=== PATIENT | male | born 1945 | race Caucasian/White ===

== ENCOUNTER 2021-05-29 13:25 | Emergency (ER) | payer MEDICARE, SELFPAY ==
[2021-05-29 14:29] VITALS: BP 117/49; PULSE 58; RESP 14; TEMP 36.6; O2SAT 99
== END 2021-05-30 04:34 | disposition left against medical advice (07) ==
PROVIDERS: PCP Internal Medicine
DX: Z53.21 Procedure and treatment not carried out due to patient leaving prior to being seen by health care provider (principal)
CPT/HCPCS: 99199

== ENCOUNTER 2022-03-21 05:21 | Inpatient (IN) | payer MEDICARE, SELFPAY ==
[2022-03-21] VITALS (13 sets, daily range): BP systolic 121–152; BP diastolic 68–92; PULSE 81–119; RESP 16–22; TEMP 36.5–36.9; O2SAT 95–100; BMI 23.3
--- NOTE | ~2022-03-21 | XR_ITS ---
EXAMINATION: XR chest 2V DATE: 03/21/2022 07:01 INDICATION: Seizure TECHNIQUE: frontal and lateral views of the chest were obtained. COMPARISON: Chest radiograph dated 03/05/2019 FINDINGS: Mild linear atelectasis at the lateral right midlung zone with additional mild streaky bibasilar atel ectasis. Skinfold projects over the left mid to lower lung zone. No pleural effusion or pneumothorax. Cardiomegaly. Median sternotomy wires, ostial markers and mediastinal surgical clips consistent with prior coronary artery bypass grafting. There are bridging osteophytes at multiple levels in the spin e, consistent with diffuse idiopathic skeletal hyperostosis (DISH). Cholecystectomy clips in right up per quadrant. IMPRESSION: 1. Mild streaky opacities at the lateral right midlung zone and bilateral lung bases and favor atelec tasis over pneumonia. 2. Cardiomegaly. Reviewed, dictated and finalized at location A. IMPRESSION: 1. Mild streaky opacities at the lateral right midlung zone and bilateral lung bases and favor atelectasis over pneumonia. 2. Cardiomegaly.
--- NOTE | ~2022-03-21 | MR_ITS ---
EXAMINATION: MR brain/brain stem wo/w con DATE: 03/22/2022 09:54 INDICATION: Onset seizure. Vascular dementia. TECHNIQUE: Magnetic resonance imaging (MRI) of the brain and brainstem was performed without and with 14 mL Multihance intravenous contrast. Sequences included sagittal and axial T1-weighted SE, axial d iffusion-weighted FS SE, axial T2*-weighted GRE, axial 3D SWAN, axial T2-weighted FLAIR, and axial T2 -weighted FSE. Postcontrast axial and coronal T1-weighted SE was obtained. Apparent diffusion coeffic ient (ADC) maps were created. COMPARISON: None. FINDINGS: There are no areas of restricted diffusion to suggest acute infarction. No intracranial hemorrhage or abnormal intracranial mass lesion. There are scattered areas of nonspecific increased T2-weighted si gnal intensity in the cerebral white matter, predominantly involving the deep and periventricular whi te matter. There are numerous small foci of susceptibility artifact scattered throughout the bilatera l cerebral hemispheres and single focus in the right cerebral hemisphere consistent with hemosiderin related to chronic microhemorrhages. There are no intraparenchymal signal abnormalities seen on the o ther pulse sequences. Symmetric prominence of the sulci and subarachnoid spaces overlying the convexi ties consistent with moderate age-appropriate diffuse cerebral volume loss. The ventricles are symme tric and normal in size. There are no abnormal extra-axial fluid collections. Flow voids are seen in the cerebral arteries on the T2-weighted sequences consistent with their expected patency. Visualized orbits and soft tissues are unremarkable. There are no areas of abnormal enhancement on the post con trast images. IMPRESSION: 1. No acute intracranial process. 2. Numerous tiny foci of susceptibility artifact throughout the bilateral cerebellar hemispheres with single focus at the right cerebellar hemisphere consistent with hemosiderin related to chronic micro hemorrhages cyst in the setting of hypertensive microangiopathy or amyloid angiopathy. 3. Age-related changes including moderate diffuse volume loss and moderate scattered mesenteric periv entricular predominant white matter T2 hyperintensity consistent with chronic small vessel ischemic d isease. Reviewed, dictated and finalized at location A. IMPRESSION: 1. No acute intracranial process. 2. Numerous tiny foci of susceptibility artifact throughout the bilateral cereb ellar hemispheres with single focus at the right cerebellar hemisphere consiste nt with hemosiderin related to chronic microhemorrhages cyst in the setting of hypertensive microangiopathy or amyloid angiopathy. 3. Age-related changes including moderate diffuse volume loss and moderate scat tered mesenteric periventricular predominant white matter T2 hyperintensity con sistent with chronic small vessel ischemic disease.
--- NOTE | ~2022-03-21 | CT_ITS ---
EXAMINATION: CT facial & cervical spine wo DATE: 03/21/2022 05:59 INDICATION: Status post fall. Trauma to the face and neck. Seizure. TECHNIQUE: Computed tomography (CT) of the maxillofacial region and cervical spine was performed with out intravenous contrast. The dose-length product was 350.52 mGy-cm. Automated exposure control and i terative reconstruction technique were employed. COMPARISON: None FINDINGS: MAXILLOFACIAL CT: Study limited by motion artifact. Subtle nondisplaced fractures not excluded. Mild mucosal thickening of the paranasal sinuses. Mastoids are pneumatized. Leftward nasal septal deviation. Zygomatic arch is grossly intact. Orbits are symmetric without disconjugate gaze. No acute facial fracture identifie d. CERVICAL SPINE CT: There is moderate cervical spondylosis. Vertebral body heights are maintained. There is degenerative disc disease at C5-6. No evidence for perched facet. Craniovertebral junction within normal limits. N o acute fracture or traumatic malalignment. IMPRESSION: 1. No acute fracture of the maxillofacial bones or cervical spine, although evaluation limited by mot ion. Reviewed, dictated and finalized at location A. IMPRESSION: 1. No acute fracture of the maxillofacial bones or cervical spine, although rhoda luation limited by motion.
--- NOTE | ~2022-03-21 | CT_ITS ---
EXAMINATION: CTA BRAIN/CAROTID DATE: 03/21/2022 07:22 INDICATION: Stroke with seizure TECHNIQUE: Computed tomographic angiography (CTA) of the head and neck was performed with 100 mL Omni paque-350 intravenous contrast. Multiplanar reconstructions and maximum intensity projection 3D-recon structions of the carotid arteries and of the intracranial arteries were created by the technologist on a separate workstation. Automated exposure control and iterative reconstruction technique were emp loyed.The dose-length product was 1138.87 mGy-cm. COMPARISON: Head CT dated 03/21/2022 FINDINGS: Carotid arteries: Small amount of atherosclerotic plaque along the normal caliber visualized portion of the aortic arch with no dissection. There is small amount of atherosclerotic plaque with 0% stenosis of the right ca rotid bulb relative to normal distal artery lumen diameter (NASCET criteria). There is a small amount of atherosclerotic plaque with 0% stenosis of the left carotid bulb relative to normal distal artery lumen diameter. The right vertebral artery is diminutive. Median sternotomy wires and surgical clips along the left internal mamillary artery suggesting prior coronary artery bypass grafting. Mild depe ndent atelectasis in the visualized bilateral upper lobes. Cervical soft tissues are unremarkable. Mo derate cervical spondylosis. There is mild to moderate central canal stenosis at C3-C4 resulting from hypertrophy and ossification of the posterior longitudinal ligament. Multiple bridging osteophytes i n the visualized upper thoracic spine. Intracranial arteries Left vertebral artery is dominant. Atherosclerotic calcifications at the bilateral carotid siphons wi thout hemodynamically significant stenosis. There is no hemodynamically significant stenosis in the v ertebral, basilar and internal carotid arteries. There are no aneurysms identified. Both A1 and P1 s egments are patent. The left P1 segment is small with majority of flow to the left posterior cerebral artery appearing to be supplied via a patent larger caliber left posterior commuting artery. Cerebra l arterial arborization appears symmetric. No abnormally enhancing brain lesions. IMPRESSION: 1. 0% stenosis of the right carotid bulb relative to normal distal artery lumen diameter (NASCET crit eria). 2. 0% stenosis of the left carotid bulb relative to normal distal artery lumen diameter. 3. Atherosclerotic calcification without hemodynamically significant stenosis at the bilateral caroti d siphons. Otherwise unremarkable cerebral CT angiogram. Reviewed, dictated and finalized at location A. IMPRESSION: 1. 0% stenosis of the right carotid bulb relative to normal distal artery lumen diameter (NASCET criteria). 2. 0% stenosis of the left carotid bulb relative to normal distal artery lumen diameter. 3. Atherosclerotic calcification without hemodynamically significant stenosis a t the bilateral carotid siphons. Otherwise unremarkable cerebral CT angiogram.
--- NOTE | ~2022-03-21 | CT_ITS ---
EXAMINATION: CT brain wo con DATE: 03/21/2022 05:58 INDICATION: CVA. Seizure. Fall. TECHNIQUE: Computed tomography (CT) of the head was performed without intravenous contrast. The dose- length product was 681.00 mGy-cm. Automated exposure control and iterative reconstruction technique w ere employed. COMPARISON: None FINDINGS: Mild generalized atrophy. There are scattered mild periventricular and subcortical white ma tter changes, most likely related to small vessel ischemic disease (microangiopathy). No ventriculome dnug or midline shift. No acute intracranial hemorrhage, infarction, mass or mass effect. Basilar cis terns are patent. Mild mucosal thickening of the maxillary sinuses. There is intracranial atheroscler osis. Mastoids are pneumatized. No depressed skull fractures. IMPRESSION: 1. No acute intracranial abnormality. 2: Chronic age-related findings. Reviewed, dictated and finalized at location A.
--- NOTE | 2022-03-21 05:34 | ED.SEIZURE ---
HPI - Seizure General Chief Complaint: Seizure Stated Complaint: SZ, FALL OUT OF BED, SKIN TEARS History of Present Illness HPI Narrative: 76-year-old male presented to the emergency department for evaluation for seizure activity. states that the patient was thrashing in bed and ultimately fell from bed. states that the patient does have a history of night terrors/bad dreams and had similar behavior previously But she states when he fell from bed when he was lying on the ground he had sonorous respirations and was very confused. She states this is not typical behavior for him. Patient did strike his arm on a nearby nightstand and does have a skin tear to his right upper arm. Patient does have history of atrial fibrillation and does take aspirin, he is on no other blood thinners. Patient does have Crohn's and history of cardiac bypass. Related Data Allergies Allergy/AdvReac Type Severity Reaction Status Date / Time No Known Allergies Allergy Unverified 12/09/17 18:58 Review of Systems Review of Systems: CONSTITUTIONAL: Denies fever, chills, or sweats. EYES: Denies visual changes, redness, or discharge. ENT: Denies rhinorrhea, congestion, sore throat, or otalgia. CARDIOVASCULAR: Denies chest pain, palpitations, or edema. RESPIRATORY: Denies cough or dyspnea. GASTROINTESTINAL: Denies abdominal pain, nausea, vomiting, or diarrhea. GENITOURINARY: Denies dysuria or hematuria. SKIN: Skin tear. MUSCULOSKELETAL: Denies back pain, joint pain, or myalgia. NEUROLOGIC: Seizure-like activity Exam Narrative: APPEARANCE: Was postictal upon arrival, or alert and oriented during her stay HEAD: normocephalic, atraumatic. EYES: PERRLA/EOMI, conjunctivae clear. NOSE: Normal no drainage EARS:TMS clear with good light reflex. THROAT: Pharynx clear, no exudate. NECK: Supple. No adenopathy, no masses. RESPIRATORY: Airway patent, respirations nonlabored. Clear to auscultation bilaterally, no rales, rhonchi, wheezing. CARDIOVASCULAR: Atrial fibrillation, rate controlled ABDOMINAL: Soft, nontender, nondistended, normal bowel sounds MUSCULOSKELETAL: Moves all extremities. Strength/ROM intact, No edema, No calf tenderness. NEURO: Alert. Cranial nerves II through XII intact. Grossly intact SKIN: Skin tears to right arm PSYCHIATRIC: Normal affect/mood. Course Course Emergency Course: Patient is more alert than his arrival but patient is still postictal. Family is requesting that the patient be transferred to [facility]. Patient does have his primary care physician his manager fast food his ground water technician and his outreach coordinator at [facility]. Discussed the case with Dr. Kwan, neurology at [facility], and they did not feel the patient needed to be transferred at this time. The recommended against giving any sedating medications and also were comfortable with holding on any antiepileptic medications as well. If patient does not return back to his normal baseline within the next 12 to 24 hours they can be good for further assistance. They felt that due to his history of vascular dementia that a slow return to baseline would be expected. Discussed case with Dr. Curtis and he was consulted. EEG was ordered. And he was made aware that [facility] prefers not to start any antiepileptic medications. Case was discussed with hospitalist and patient was accepted for admission. L he was comfortable with the plan for admission and observation at our facility. --- Skin tears were repaired with Steri-Strips Vital Signs Vital signs: Vital Signs Temperature 98.1 F 03/21/22 05:25 Pulse Rate 108 H 03/21/22 05:25 Respiratory Rate 20 03/21/22 05:25 Blood Pressure 135/84 03/21/22 05:25 Pulse Oximetry 100 03/21/22 05:25 Oxygen Delivery Room Air 03/21/22 05:25 Temperature 98.1 F 03/21/22 05:25 Pulse Rate 116 H 03/21/22 07:50 Respiratory Rate 22 H 03/21/22 07:50 Blood Pressure 150/82 H 03/21/22 07:50 Pulse Oximetry 95 03/21/22 07:50
[2022-03-21 06:13] LABS: Basophils Percent Auto 0.3 % (0.2-1.2); Eosinophils Absolute Auto 0.1 K/mm3 (0-0.3); Eosinophils Percent Auto 1.2 % (0-4.4); Hematocrit 29.6 % (42.0-52.0); Hemoglobin 9.3 g/dL (14.0-18.0); Immature Granulocyte Absolute 0.04 K/mm3 (0.00-0.031); Immature Granulocyte Percent A 0.7 % (0-0.5); Lymphocytes Absolute Auto 0.26 K/mm3 (0.9-3.2); Lymphocytes Percent Auto 4.4 % (18.3-44.2); Mean Corpuscular HGB Conc 31.4 g/dl (32-36); Mean Corpuscular Hemoglobin 30.1 pg (26-34); Mean Corpuscular Volume 95.8 fl (80-100); Mean Platelet Volume 10.2 fl (7.4-10.4); Monocytes Absolute Auto 0.4 K/mm3 (0.1-0.6); Neutrophils Absolute Auto 5.1 K/mm3 (1.3-6.7); Neutrophils Percent Auto 86.4 % (45.5-73.1); Platelet Count Result 156 k/mm3 (150-375); Red Blood Count 3.09 M/mm3 (4.6-6.20); Red Cell Distribution Width 21.6 % (11.5-14.5); White Blood Count 5.9 K/mm3 (4.5-10.0)
[2022-03-21 06:22] LABS: Alanine Aminotransferase 42 U/L (6-50); Alkaline Phosphatase 102 U/L (38-126); Anion Gap 6 mmol/L (8-16); Aspartate Amino Transferase 28 U/L (17-59); Bilirubin,Total 0.5 mg/dL (0.2-1.3); Blood Urea Nitrogen 18 mg/dL (9-20); Calcium 7.5 mg/dL (8.4-10.2); Carbon Dioxide 19 mmol/L (22-30); Chloride 115 mmol/L (98-107); Estimated CRCL calculation 40 ml/min; Estimated Glomerular Filt Rate 46; Glucose 118 mg/dL (65-110); Lactic Acid Reflex 2.9 mmol/L (0.7-2.0); Potassium 3.9 mmol/L (3.4-5.0); Sodium 140 mmol/L (137-145)
[2022-03-21 06:24] LABS: INR 1.4; Partial Thromboplastin Time 31.8 SECONDS (22.3-36.8); Prothrombin Time 16.7 Seconds (11.1-14.7)
--- NOTE | 2022-03-21 06:25 | ECG_ITS ---
Measurements Intervals [place] Rate: 104 P: MT: 0 QRS: 69 QRSD: 89 T: 57 QT: 349 QTc: 461 Interpretive Statements ATRIAL FIBRILLATION WITH RAPID VENTRICULAR RESPONSE WITH ABERRANT CONDUCTION OR VENTRICULAR PREMATURE COMPLEXES ABNORMAL RHYTHM ECG COMPARED TO ECG 03/05/2019 13:42:05 ATRIAL FIBRILLATION NOW PRESENT PVCS NOW PRESENT Electronically Signed On 03-21-2022 17:57:26 CDT by Carmen Burton M.D.
[2022-03-21 06:43] LABS: Amphetamine Screen Urine Negative (Negative); Barbiturate Screen Urine Negative (Negative); Benzodiazepines Screen Urine Negative (Negative); Cannabinoid Screen Urine Negative (Negative); Cocaine Screen Urine Negative (Negative); Methadone Screen Urine Negative (Negative); Opiate Screen Urine Negative (Negative); Phencyclidine Screen Urine Negative (Negative)
[2022-03-21 06:49] LABS: Platelet Estimate Adequate (Adequate)
[2022-03-21 06:50] LABS: Anisocytosis 1+ (NORMAL); Hypochromasia 1+ (NORMAL)
[2022-03-21 06:51] LABS: Appearance Urine Clear (Clear); Bilirubin Urine Negative (Negative); Blood Urine Negative (Negative); Color Urine Yellow (Yellow); Glucose Urine UA Negative (Negative); Ketones Urine Negative (Negative); Leukocyte Esterase Ur Negative LEU/UL (Negative); Nitrate Urine Negative (Negative); Protein Urine Negative (Negative); Urobilinogen Urine 0.2 mg/dL (<2.0); pH Urine 5.5 (5.0-9.0)
[2022-03-21 06:54] LABS: Add Urine Microscopic? NO
[2022-03-21] MEDS: SODIUM CHLORIDE 0.9% IV 1,000 ML 500 ML IV CONT (07:08)
[2022-03-21 08:26] LABS: SARS-CoV-2 RNA PCR Negative
[2022-03-21 08:55] LABS: Creatine Kinase 133 U/L (55-170)
[2022-03-21 09:10] LABS: Reflex Lactic Acid Yes or No Add Lactic
[2022-03-21 10:08] LABS: Lactic Acid 0.9 mmol/L (0.7-2.0)
--- NOTE | 2022-03-21 12:40 | WPDNEURCNPN ---
Assessment and Plan Assessment and plan (1) Fall: Code(s): W19.XXXA - Unspecified fall, initial encounter Status: Acute Assessment and Plan: 76 years old with cardiomegaly on chest x-ray but no acute parenchyma toes disease negative CT scan of the head without any bleed or territory stroke, head neck CTA also negative except atherosclerotic calcification and cervical spine CT scan is also negative fracture dislocation patient admitted for the observation for the new onset seizure he was recently started a new medication for his Crohn's disease but [facility] did not want him to start on the anticonvulsant at this particular time because of his underlying dementia will observe in the hospital Consult date: 03/22/22 Reason for consult: 76 years old right-handed male has been admitted to [facility] through the emergency room for the complaints of seizure and falling out of bed resulting in the skin tear reported to the ER personnel the patient was thrashing in bed and ultimately fell out of the bed ,he does have ongoing history of night terrors, bad dreams ,and has had similar behavior previously, on the floor he was noted to have sonorous respiration increasingly confused he is not known to be allergic to any medication, patient has been taken care at [facility] ,the family was requesting the patient to be transferred to the [facility] but the physician from the Neurology Department declined at this particular time, his vital signs were stable routine lab studies were fairly unremarkable, lactic acid was 2.9, CT of the head was negative for the bleed or space-occupying lesion ,no seizure medication were started as per the [facility] and patient was admitted only for observation, CT scan of the facial bones, cervical spine, were negative and head neck CTA was also negative for any carotid disease except the atherosclerotic calcification without significant stenosis at the bilateral carotid siphon Review of Systems Review of Systems: All systems reviewed & are unremarkable except as noted in HPI and below [facility] Past Medical History Medical History (Updated 03/21/22 @ 13:40 by Bere Kee PA-C) B12 deficiency Benign prostatic hyperplasia Chronic kidney disease, stage 3 Coronary artery disease Crohn's disease Depression Gout Hyperlipidemia Hypertension Iron deficiency anemia Kidney stones Osteoarthritis Peripheral vascular disease Surgical History Surgical History (Updated 03/21/22 @ 13:37 by Bere Kee PA-C) History of cholecystectomy History of coronary artery bypass graft History of lithotripsy History of partial colectomy X2 for to bowel obstructions and fistula secondary to Crohn's disease. History of vascular surgery Bilateral lower extremity stents. Family History Family History (Updated 03/21/22 @ 13:37 by Bere Kee PA-C) Father Myocardial infarct Cerebrovascular accident Mother Breast cancer Sibling Crohn's disease Social History Social History (Updated 03/21/22 @ 13:38 by Bere Kee PA-C) Social History: Surrogate decision maker: Code status: Full code. Smoking packs per day: 2 Smoking cigarettes per day: 40.0 Years smoked: 25 Smoking pack-years: 50.00 Smoking status: Former smoker Smoking end date: 09/22/86 Alcohol intake: never Substance use: never Additional living arrangements comments: The patient lives with his in [place]. Additional occupation/education comments: Retired from [employer]. Spiritual care concerns: No Meds Home Medications and Allergies Home Medications Medication Instructions Recorded Confirmed Type Lactobacillus 1 cap PO DAILY 03/21/22 03/21/22 History acidophilus-Bifidobac.animalis 2.5 billion cell capsule (Daily Probiotic) amlodipine 5 mg tablet 2.5 mg PO BID 03/21/22 03/21/22 History aspirin 81 mg tablet 81 mg PO DAILY 03/21/22 03/21/22 History ator
--- NOTE | 2022-03-21 13:00 | PM.IMHP ---
H&P: HPI History of Present Illness Date/Time: 03/21/22 13:00 Chief Complaint: Seizure. Narrative: This is a pleasant 76-year-old male with vascular dementia, hypertension, peripheral vascular disease, coronary artery disease, paroxysmal atrial fibrillation, peripheral vascular disease, chronic kidney disease, anemia, Crohn's disease, and other comorbidities who presented to the emergency department via EMS for evaluation after seizure. He is not able to provide an accurate history as to what occurred today and thus almost all of the following is obtained via a review of his electronic medical records as well as discussions with his who is at bedside, with the patient's permission. Yesterday he got an outpatient iron infusion and he went to bed in his usual state of health. Early this morning the patient's heard him making grunting noises and when she got out of bed to check on him he was shaking and demonstrating seizure activity. She ran around the side of the bed so he would not fall but did not make it and he ended up falling onto the ground. Seizure activity lasted for nearly 5 minutes and he was postictal once he came to. He has no history of seizures and he is being admitted in this setting for further workup. He has been doing well since admission has not demonstrated any seizure activity. Currently he has no complaints and denies headache, focal weakness, paresthesias, chest pain, muscle pain, nausea, and vomiting. Review of Systems Review of Systems: Twelve systems were reviewed but limited. does provide additional information. No recent fever or recent illness. He has chronic diarrhea related to Crohn's disease is unchanged. He has a history of night terrors and bad dreams but he has been sleeping well recently. He is able to walk unassisted typically but over the last week he has been using a cane at times. He complains of some right groin pain and he had imaging done of his right hip which showed arthritis. Once he is up and walking however he seems to do okay. Except as documented, all other systems were reviewed and are negative. [facility] Past Medical History Medical History (Updated 03/21/22 @ 13:40 by Bere Kee PA-C) B12 deficiency Benign prostatic hyperplasia Chronic kidney disease, stage 3 Coronary artery disease Crohn's disease Depression Gout Hyperlipidemia Hypertension Iron deficiency anemia Kidney stones Osteoarthritis Peripheral vascular disease Surgical History Surgical History (Updated 03/21/22 @ 13:37 by Bere Kee PA-C) History of cholecystectomy History of coronary artery bypass graft History of lithotripsy History of partial colectomy X2 for to bowel obstructions and fistula secondary to Crohn's disease. History of vascular surgery Bilateral lower extremity stents. Family History Family History (Updated 03/21/22 @ 13:37 by Bere Kee PA-C) Father Myocardial infarct Cerebrovascular accident Mother Breast cancer Sibling Crohn's disease Social History Social History (Updated 03/21/22 @ 13:38 by Bere Kee PA-C) Social History: Surrogate decision maker: Code status: Full code. Smoking packs per day: 2 Smoking cigarettes per day: 40.0 Years smoked: 25 Smoking pack-years: 50.00 Smoking status: Former smoker Smoking end date: 09/22/86 Alcohol intake: never Substance use: never Additional living arrangements comments: The patient lives with his in [place]. Additional occupation/education comments: Retired from [employer]. Spiritual care concerns: No Meds Home Medications and Allergies Home Medications Medication Instructions Recorded Confirmed Type Lactobacillus 1 cap PO DAILY 03/21/22 03/21/22 History acidophilus-Bifidobac.animalis 2.5 billion cell capsule (Daily Probiotic) amlodipine 5 mg tablet 2.5 mg PO BID 03/21/22 03/21/22 History aspirin 81 mg tablet 81 mg PO OPAL
[2022-03-21] MEDS: METOPROLOL TARTRATE 25 MG TABLET PO (15:19)
[2022-03-21] MEDS: ACETAMINOPHEN 325 MG TABLET 650 MG PO (15:19)
[2022-03-21 16:05] LABS: Folic Acid 18.3 ng/mL (2.76->20); Iron 164 ug/dL (49-181); Percent Iron Saturation 63 % (20-50)
[2022-03-21] MEDS: amLODIPine BESYLATE 2.5 MG TABLET PO (20:21)
[2022-03-21] MEDS: METOPROLOL TARTRATE 12.5 MG TABLET PO (20:21)
[2022-03-22] VITALS (11 sets, daily range): BP systolic 130–132; BP diastolic 71–86; PULSE 77–114; RESP 17–20; TEMP 36.1–36.8; O2SAT 98–100
[2022-03-22 05:38] LABS: Hematocrit 35.7 % (42.0-52.0); Hemoglobin 11.1 g/dL (14.0-18.0); Mean Corpuscular HGB Conc 31.1 g/dl (32-36); Mean Corpuscular Hemoglobin 29.8 pg (26-34); Mean Corpuscular Volume 95.7 fl (80-100); Mean Platelet Volume 10.3 fl (7.4-10.4); Platelet Count Result 174 k/mm3 (150-375); Red Blood Count 3.73 M/mm3 (4.6-6.20); Red Cell Distribution Width 21.3 % (11.5-14.5)
[2022-03-22 05:49] LABS: Anion Gap 5 mmol/L (8-16); Blood Urea Nitrogen 14 mg/dL (9-20); Calcium 7.8 mg/dL (8.4-10.2); Carbon Dioxide 21 mmol/L (22-30); Chloride 110 mmol/L (98-107); Estimated CRCL calculation 44 ml/min; Estimated Glomerular Filt Rate 54; Glucose 96 mg/dL (65-110); Magnesium 1.9 mg/dL (1.6-2.3); Potassium 3.8 mmol/L (3.4-5.0); Sodium 136 mmol/L (137-145)
[2022-03-22] MEDS: amLODIPine BESYLATE 2.5 MG TABLET PO ×2 (08:47→20:40)
[2022-03-22] MEDS: ACIDOPHILUS/BULGARICUS CHEWABLE TABLET 1 TABLET PO (08:47)
[2022-03-22] MEDS: ATORVASTATIN 10 MG TABLET PO (08:48)
[2022-03-22] MEDS: ASPIRIN 81 MG CHEWABLE TABLET PO (08:48)
[2022-03-22] MEDS: cilostazoL 100 MG TABLET PO (08:49)
[2022-03-22] MEDS: ESCITALOPRAM OXALATE 10 MG TABLET 20 MG PO (08:49)
[2022-03-22] MEDS: METOPROLOL TARTRATE 12.5 MG TABLET PO ×2 (08:50→20:40)
[2022-03-22] MEDS: OMEGA 3 POLYUNSAT FATTY ACIDS 1 GM CAP PO (08:50)
[2022-03-22] MEDS: IRBESARTAN 150 MG TABLET PO (08:50)
[2022-03-22] MEDS: OPTI-GEN TAB 1 TABLET PO (08:51)
[2022-03-22] MEDS: MULTIVITAMINS /C LUTEIN (CENTRUM SILVER) TABLET *BKC 1 TAB PO (08:51)
--- NOTE | 2022-03-22 09:17 | PM.IMPN ---
Progress Note: A&P Assessment and Plan (1) New onset seizure: Code(s): R56.9 - Unspecified convulsions Status: Acute Assessment and Plan: New medication: Zeposia, for his Crohn's disease, no other than that he has not had any recent change in medications. Denies alcohol use Seizure may very well be related to his underlying dementia. Dr. Curtis has been consulted he recommended EEG and brain MRI. Initiate seizure precautions and fall precautions. Defer seizure medications to Neurology (2) Fall from bed: Code(s): W06.XXXA - Fall from bed, initial encounter Status: Acute Assessment and Plan: Patient fell out of bed during his seizure. Imaging showed no acute fractures. PT/OT consulted has reports he has been unsteady (3) Anemia: Code(s): D64.9 - Anemia, unspecified Status: Acute Assessment and Plan: He is followed by a fisher dip net, received an iron infusion yesterday. Follow CBC (4) Chronic kidney disease, stage 3: Code(s): N18.30 - Chronic kidney disease, stage 3 unspecified Status: Acute Assessment and Plan: Creatinine appears higher than what he typically runs though he has not had labs done at this facility for 3 years. He does not appear overtly dry thus I assume this is probably his baseline and we will monitor. Monitor CMP (5) Hypertension: Code(s): I10 - Essential (primary) hypertension Status: Acute Assessment and Plan: Blood pressures were reviewed and they are stable. Continue antihypertensives and monitor. (6) Crohn's disease: Code(s): K50.90 - Crohn's disease, unspecified, without complications Status: Acute Assessment and Plan: No acute issues. Subjective Date/time seen: 03/22/22 09:17 Interval history: Patient is admitted for seizure-like activity. Patient reportedly fell due to seizure-like activity. Patient was brought to the emergency department. Dr. King with neurology was consulted who suggested EEG and brain MRI to be performed. Patient did recently receive iron infusion this week. Patient denies any known history of having seizures. Charts reviewed, does not appear the patient has had seizures in the past. Patient is confused during my encounter this morning. Defer seizure medications to Neurology. Review of Systems Review of Systems: All systems reviewed & are unremarkable except as noted in HPI and below Exam Narrative: General: Chronically ill-appearing male sitting up in bed in no distress. Confused Weight: 71.5 kg. BMI: 23.3. HEENT: Normocephalic. Small abrasion on the posterior occiput and right lower lip. Pupils are reactive. Extraocular motions are intact. Conjunctivae anicteric. Moist mucous membranes. Small abrasion on the right lateral tongue. Neck: Supple. No lymphadenopathy or JVD. Respiratory: Lungs are clear to auscultation bilaterally. Cardiovascular: Regular rate and rhythm with S1-S2. Gastrointestinal: Abdomen is soft, flat, nontender, and nondistended with positive bowel sounds. Skin: Warm and dry. Skin tear on the right upper extremity was dressed in the emergency department and this was not removed for evaluation. Extremities: No cyanosis, clubbing, or edema. Radial and pedal pulses intact. Neurological: Alert and oriented x2. Patient unable to report time of year and where he was located. Cranial nerves 2-12 are grossly intact. Speech is clear. No facial asymmetry. Generalized weakness without focal findings. Psychiatric: Pleasantly confused and cooperative. Objective Data Vital Signs Vital Signs: Vital Signs - 24 hr 03/21/22 09:30 03/21/22 11:22 03/21/22 14:00 Temperature 98.2 F 97.7 F Pulse Rate 100 100 Respiratory Rate 16 18 Blood Pressure 152/82 H 148/73 H Pulse Oximetry 100 98 Oxygen Delivery Room Air 03/21/22 15:19 03/21/22 12:00 03/21/22 16:00 Temperature Pulse Rate 94 116 H 87 R
--- NOTE | 2022-03-22 09:40 | WPDNEUROLOGY ---
Neurology EEG Report General Information Date of Study: 03/21/22 TEST eeg DIAGNOSIS seizure EEG NUMBER [id number] CLINICAL HISTORY patient reports patient had a seizure in the morning about 9 hours ago but there was no history of seizure disorder in the past EEG DESCRIPTION low to medium voltage 5 to 7 hertz per 2nd theta activity seen admixed with 3 to 4 hertz per 2nd delta activity and low-voltage 15 to 18 hertz per 2nd beta activity multiple movement artifacts are noted throughout the tracing. Bilateral symmetrical sleep activity is noted during sleep admixed with excessive amount of delta activity non paroxysmal nonfocal nonlateralizing IMPRESSION abnormal record due to the presence of excessive amount of slow activity during wakefulness drowsiness as well as during sleep. These abnormalities are suggestive of underlying organic a metabolic encephalopathy or postictal state clinical correlation recommended
[2022-03-22] MEDS: LORazepam INJ (*CRX) 2 MG/ML VIAL 0.5 MG IV PUSH (21:36)
--- NOTE | 2022-03-22 21:49 | PC.NURSE ---
2119 Pt is confused and agitated , continuously trying to get out of bed by climbing over bed rail. Place call to Serena Ford NP, new order received.
[2022-03-23] VITALS (8 sets, daily range): BP systolic 125–134; BP diastolic 53–80; PULSE 90–108; RESP 14–18; TEMP 36.2–36.9; O2SAT 97–100
[2022-03-23] MEDS: ACIDOPHILUS/BULGARICUS CHEWABLE TABLET 1 TABLET PO (08:21)
[2022-03-23] MEDS: METOPROLOL TARTRATE 12.5 MG TABLET PO (08:21)
[2022-03-23] MEDS: IRBESARTAN 150 MG TABLET PO (08:21)
[2022-03-23] MEDS: ATORVASTATIN 10 MG TABLET PO (08:21)
[2022-03-23] MEDS: OMEGA 3 POLYUNSAT FATTY ACIDS 1 GM CAP PO (08:21)
[2022-03-23] MEDS: MULTIVITAMINS /C LUTEIN (CENTRUM SILVER) TABLET *BKC 1 TAB PO (08:21)
[2022-03-23] MEDS: cilostazoL 100 MG TABLET PO (08:21)
[2022-03-23] MEDS: ASPIRIN 81 MG CHEWABLE TABLET PO (08:21)
[2022-03-23] MEDS: ESCITALOPRAM OXALATE 10 MG TABLET 20 MG PO (08:21)
[2022-03-23] MEDS: amLODIPine BESYLATE 2.5 MG TABLET PO (08:21)
[2022-03-23] MEDS: OPTI-GEN TAB 1 TABLET PO (08:21)
--- NOTE | 2022-03-23 08:53 | PM.IMPN ---
Progress Note: A&P Assessment and Plan (1) New onset seizure: Code(s): R56.9 - Unspecified convulsions Status: Acute Assessment and Plan: New medication: Zeposia, for his Crohn's disease, no other than that he has not had any recent change in medications. Denies alcohol use Seizure may very well be related to his underlying dementia. Dr. Curtis has been consulted he recommended EEG and brain MRI. EEG revealed abnormality, brain MRI reported numerous tiny foci of susceptibility artifact throughout the bilateral cerebral hemispheres with single focus the right cerebellar hemisphere consistent with hemosiderin related to chronic microhemorrhages cyst in the setting of hypertensive micro angiopathy or amyloid angiopathy. Age-related changes. Initiate seizure precautions and fall precautions. Defer seizure medications to Neurology (2) Fall from bed: Code(s): W06.XXXA - Fall from bed, initial encounter Status: Acute Assessment and Plan: Patient fell out of bed during his seizure. Imaging showed no acute fractures. PT/OT consulted has reports he has been unsteady (3) Anemia: Code(s): D64.9 - Anemia, unspecified Status: Acute Assessment and Plan: He is followed by a logistics solution manager, received an iron infusion yesterday. Follow CBC (4) Chronic kidney disease, stage 3: Code(s): N18.30 - Chronic kidney disease, stage 3 unspecified Status: Acute Assessment and Plan: Creatinine appears higher than what he typically runs though he has not had labs done at this facility for 3 years. He does not appear overtly dry thus I assume this is probably his baseline and we will monitor. Monitor CMP (5) Hypertension: Code(s): I10 - Essential (primary) hypertension Status: Acute Assessment and Plan: Blood pressures were reviewed and they are stable. Continue antihypertensives and monitor. (6) Crohn's disease: Code(s): K50.90 - Crohn's disease, unspecified, without complications Status: Acute Assessment and Plan: No acute issues. Subjective Date/time seen: 03/23/22 08:53 Patient is alert and oriented this morning. He is more alert than he was yesterday. Patient is able to provide history. Patient is aware that he follows with [facility] Neurology. Patient had an MRI and EEG performed with Neurology following here in the hospital. Pending further recommendations by Neurology. Patient will be able to be discharged home. Review of Systems Review of Systems: All systems reviewed & are unremarkable except as noted in HPI and below Exam Narrative: General: Chronically ill-appearing male sitting up in bed in no distress. Alert and oriented Weight: 71.5 kg. BMI: 23.3. HEENT: Normocephalic. Small abrasion on the posterior occiput and right lower lip. Pupils are reactive. Extraocular motions are intact. Conjunctivae anicteric. Moist mucous membranes. Small abrasion on the right lateral tongue. Neck: Supple. No lymphadenopathy or JVD. Respiratory: Lungs are clear to auscultation bilaterally. Cardiovascular: Regular rate and rhythm with S1-S2. Gastrointestinal: Abdomen is soft, flat, nontender, and nondistended with positive bowel sounds. Skin: Warm and dry. Skin tear on the right upper extremity was dressed in the emergency department and this was not removed for evaluation. Extremities: No cyanosis, clubbing, or edema. Radial and pedal pulses intact. Neurological: Alert and oriented x3. Cranial nerves 2-12 are grossly intact. Speech is clear. No facial asymmetry. Generalized weakness without focal findings. Psychiatric: Pleasant and cooperative. Objective Data Vital Signs Vital Signs: Vital Signs - 24 hr 03/22/22 12:00 03/22/22 14:00 03/22/22 16:00 Temperature 98.2 F Pulse Rate 89 92 108 H Respiratory Rate 17 Blood Pressure 131/71 Pulse Oximetry 98 Oxygen Delivery 03/22/22 20:35 03/22
--- NOTE | 2022-03-23 13:37 | WPDNEUROPN ---
Progress Note: A&P Assessment and Plan (1) Seizure disorder: Code(s): G40.909 - Epilepsy, unspecified, not intractable, without status epilepticus Status: Acute Plan patient is stable and at this stage can be discharged destruction to return to the for the follow-up as he has been followed by the neurologist there no additional medication have been advised his underlying problem could be ongoing Ms. with possibility of amyloid angiopathy or simply not amyloid angiopathy id to microhemorrhages Subjective Date/time seen: 03/23/22 13:37 Interval history: Follow-up with the complaints of fall and documented cardiomegaly on x-ray chest, negative CT scan of the head negative CTA except the atherosclerotic calcification and negative cervical spine CT scan without evidence of fracture dislocation or myelopathy question regarding the possibility of the seizure but as per the tech by the ER physician with the [facility] who have been following the patient they were not inclined to start him on the anticonvulsants Review of Systems Review of Systems: All systems reviewed & are unremarkable except as noted in HPI and below Exam Narrative: remains awake alert and cooperative in no obvious acute distress, follows instructions fairly well, his speech did not slow but not dysphasic and not dysarthric, extraocular movements are full no nystagmus cranial examination is normal the general strength is decreased 4/5 with no focal motor deficits. Brain MRI is consistent with tiny foci of susceptibility artifact throughout the bilateral cerebellar hemisphere with single focus at the right cerebellar hemisphere consistent with hemosiderin related to chronic microhemorrhages the setting of the hypertensive microangiopathy or possibility of amyloid angiopathy diffuse volume loss Objective Data Vital Signs Vital Signs: Vital Signs - 24 hr 03/22/22 14:00 03/22/22 16:00 03/22/22 20:35 Temperature 36.8 C 36.1 C L Pulse Rate 92 108 H 77 Respiratory Rate 17 20 Blood Pressure 131/71 132/86 Pulse Oximetry 98 100 Oxygen Delivery 03/22/22 20:40 03/22/22 20:00 03/22/22 20:00 Temperature Pulse Rate 112 H 108 H Respiratory Rate Blood Pressure Pulse Oximetry Oxygen Delivery Room Air 03/23/22 00:00 03/23/22 03:13 03/23/22 04:00 Temperature 36.2 C L Pulse Rate 100 90 97 Respiratory Rate 18 Blood Pressure 126/73 Pulse Oximetry 97 Oxygen Delivery 03/23/22 08:19 03/23/22 08:21 03/23/22 08:25 Temperature Pulse Rate 108 H 100 Respiratory Rate 16 Blood Pressure 134/80 Pulse Oximetry 99 Oxygen Delivery Room Air 03/23/22 10:26 03/23/22 08:00 03/23/22 12:00 Temperature Pulse Rate 106 H 101 H Respiratory Rate Blood Pressure Pulse Oximetry Oxygen Delivery Room Air Intake/Output Intake/Output: Intake & Output 03/20/22 03/21/22 03/22/22 03/23/22 23:59 23:59 23:59 23:59 Intake Total 1610 1740 720 Output Total 150 1200 Balance 1460 540 720 Meds/Results Medications: Active Medications Generic Name Dose Route Start Last Admin Trade Name Freq PRN Reason Stop Dose Admin Acetaminophen 650 mg 03/21/22 15:02 03/21/22 15:19 Acetaminophen 325 Mg Tablet PO 650 mg Q6H PRN Administration Mild Pain (1-3) or Fever Amlodipine Besylate 2.5 mg 03/21/22 21:00 03/23/22 08:21 Amlodipine Besylate 2.5 Mg Tablet PO 2.5 mg Q12HR SUZAN Administration Aspirin 81 mg 03/22/22 09:00 03/23/22 08:21 Aspirin 81 Mg Chewable Tablet PO 04/21/22 08:59 81 mg DAILY SUZAN Administration Atorvastatin Calcium 10 mg 03/22/22 09:00 03/23/22 08:21 Atorvastatin 10 Mg Tablet PO 10 mg DAILY SUZAN Administration Cilostazol 100 mg 03/22/22 09:00 03/23/22 08:21 Cilostazol 100 Mg Tablet PO 100 mg DAILY SUZAN Administration Escitalopram Oxalate 20 mg 03/22/22 09:00 03/23/22 08:21 Escitalopram Oxalate 10 Mg Tablet PO 20 mg
--- NOTE | 2022-03-24 07:10 | PM.DS ---
DS: Admitting Diagnosis Discharge Date 03/23/22 Admitting Diagnosis Unspecified convulsions Fall from bed DS: Discharge Diagnosis Discharge Diagnosis (1) New onset seizure: Code(s): R56.9 - Unspecified convulsions Status: Acute Assessment and Plan: New medication: Zeposia, for his Crohn's disease, no other than that he has not had any recent change in medications. Denies alcohol use Seizure may very well be related to his underlying dementia. Dr. Curtis has been consulted he recommended EEG and brain MRI. EEG revealed abnormality, brain MRI reported numerous tiny foci of susceptibility artifact throughout the bilateral cerebral hemispheres with single focus the right cerebellar hemisphere consistent with hemosiderin related to chronic microhemorrhages cyst in the setting of hypertensive micro angiopathy or amyloid angiopathy. Age-related changes. Initiate seizure precautions and fall precautions. Defer seizure medications to Neurology (2) Fall from bed: Code(s): W06.XXXA - Fall from bed, initial encounter Status: Acute Assessment and Plan: Patient fell out of bed during his seizure. Imaging showed no acute fractures. PT/OT consulted has reports he has been unsteady (3) Anemia: Code(s): D64.9 - Anemia, unspecified Status: Acute Assessment and Plan: He is followed by a surveillance officer, received an iron infusion yesterday. Follow CBC (4) Chronic kidney disease, stage 3: Code(s): N18.30 - Chronic kidney disease, stage 3 unspecified Status: Acute Assessment and Plan: Creatinine appears higher than what he typically runs though he has not had labs done at this facility for 3 years. He does not appear overtly dry thus I assume this is probably his baseline and we will monitor. Monitor CMP (5) Hypertension: Code(s): I10 - Essential (primary) hypertension Status: Acute Assessment and Plan: Blood pressures were reviewed and they are stable. Continue antihypertensives and monitor. (6) Crohn's disease: Code(s): K50.90 - Crohn's disease, unspecified, without complications Status: Acute Assessment and Plan: No acute issues. DS: Summary Hospital Course Reason for hospitalization: possible convulsions Hospital Course: patient is a 76-year-old male with medical history of vascular dementia, hypertension, PVD, CAD, paroxysmal AFib and peripheral vascular disease and Crohn's disease. Patient presented to the emergency department via ambulance after having a seizure at home. He was reportedly and is bed and fell out of bed and had an abrasion to his lip and orbital area. His significant other watch him have unspecified convulsions. She reported that the day prior to admission the patient did receive an iron transfusion on an outpatient basis. Reportedly the seizure activity lasted nearly 5 minutes and the patient was postictal once he came to. He has no history of seizures. While in the emergency department labs and imaging were obtained. Patient had WBC of 5.9, hemoglobin 9.3, hematocrit 29.6 and platelet 156, sodium 140, potassium 3.9, BUN 18 and creatinine 1.5, normal LFTs and a creatinine kinase of 133. Negative UA. Chest x-ray was obtained with mild streaky opacities in the lateral right mid lung zone and lateral lung bases. Head CT was negative for acute intracranial abnormality. Head neck CTA with 0% stenosis on the right and left carotid bulbs. Head cervical spine did not reveal acute fracture. Due to the patient's new onset of seizures neurology was consulted. EEG was and brain MRI was obtained. EEG revealed some abnormalities during his hospitalization. However the patient did not have any witnessed seizure activity in the emergency department or on the floor. Patient follows with [facility] Neurology in which is to continue to follow with them. Patient became alert and oriented on the day
== END 2022-03-23 17:25 | disposition home or self-care (01) | DRG 101 ==
LOC: ANHED 08:00 → ANH2MED 08:32
PROVIDERS: Physician Assistant; Admitting Provider Internal Medicine; Emergency Provider Emergency Medicine; PCP Internal Medicine; Visit Provider Nurse Practitioner Family
DX: R56.9 Unspecified convulsions (principal); K50.90 Crohn's disease, unspecified, without complications; Z20.822 Contact with and (suspected) exposure to COVID-19; S41.111A Laceration without foreign body of right upper arm, initial encounter; W06.XXXA Fall from bed, initial encounter; D64.9 Anemia, unspecified; I12.9 Hypertensive chronic kidney disease with stage 1 through stage 4 chronic kidney disease, or unspecified chronic kidney disease; N18.30 Chronic kidney disease, stage 3 unspecified; F01.50 Vascular dementia, unspecified severity, without behavioral disturbance, psychotic disturbance, mood disturbance, and anxiety; I73.9 Peripheral vascular disease, unspecified; I48.0 Paroxysmal atrial fibrillation; I25.10 Atherosclerotic heart disease of native coronary artery without angina pectoris; N40.0 Benign prostatic hyperplasia without lower urinary tract symptoms; E78.5 Hyperlipidemia, unspecified; D50.9 Iron deficiency anemia, unspecified; M19.90 Unspecified osteoarthritis, unspecified site; Z87.442 Personal history of urinary calculi; Z90.49 Acquired absence of other specified parts of digestive tract; Z95.1 Presence of aortocoronary bypass graft; Z95.820 Peripheral vascular angioplasty status with implants and grafts; Z87.891 Personal history of nicotine dependence
CPT/HCPCS: 36415; 70450; 70486; 70496; 70498; 70553; 71046; 72125; 80048; 80053; 80307; 81003; 82550; 82607; 82728; 82746; 83540; 83550; 83605; 83735; 84443; 85025; 85027; 85610; 85730; 93005; 95816; 96360; 96361; 97161; 97165; 99285; A9270; A9577; C9803; G0378; J2060; J7030; Q9967; U0003; U0005

== ENCOUNTER 2022-05-17 16:50 | Inpatient (IN) | payer MEDICARE, SELFPAY ==
[2022-05-17] VITALS (30 sets, daily range): BP systolic 82–117; BP diastolic 42–70; PULSE 88–124; RESP 13–32; TEMP 37.1–38; O2SAT 81–100
--- NOTE | ~2022-05-17 | CT_ITS ---
EXAMINATION: CT abdomen pelvis w con DATE: 05/17/2022 20:16 INDICATION: Fever and hypotension post recent colonoscopy. TECHNIQUE: Computed tomography (CT) of the abdomen and pelvis was performed with 100 mL Omnipaque-350 intravenous contrast. Automated exposure control and iterative reconstruction technique were employe d. The dose-length product was 505.46 mGy-cm. COMPARISON: 05/14/2018 FINDINGS: Lung bases are clear. Mild cardiomegaly with right atrial enlargement. Atherosclerotic coronary arter y calcifications. Postoperative change of prior median sternotomy and coronary artery bypass grafting . Cholecystectomy clips the gallbladder fossa. Pancreas, spleen, bilateral adrenal glands and kidneys are normal. Prominent distention of the bladder which extends 18 cm cephalad to the level of the L4 vertebral body. There is mildly thickened and enhancing urothelium at the left renal pelvis which cou ld be seen with ascending urinary tract infection. Postoperative change of prior transurethral prosta tectomy. Postoperative changes in the right lower quadrant along the proximal colon where there is a likely ileocolic anastomosis. There is mild wall thickening along the ilium and medial plate proximal to the anastomosis which may related to a reported history of prior Crohn's disease. There is additi onal small segment of wall thickening of the ileum in the left lower quadrant with mild dilation of t he approximately 20 cm intervening segment of ileum. No more proximally dilated small bowel to sugges t obstruction. No pneumatosis, abscess or free intraperitoneal gas or fluid. There is calcified ather osclerosis of the aorta and many of the other arteries. No pathologically enlarged abdominal or pelvi c lymphadenopathy. Mild thoracolumbar dextrocurvature with mild to moderate spondylosis. There are b ridging osteophytes at multiple levels in the spine, consistent with diffuse idiopathic skeletal hype rostosis (DISH). IMPRESSION: 1. Ileocolic anastomosis with wall thickening of short segments of the immediately more proximal ileu m as well as an additional short segment of ileum in the left lower quadrant with mild dilation of th e 20 cm intervening segment of ileum. Findings would be consistent with reported history of Crohn's d isease. Absence of additional more proximal small bowel dilation suggests the dilated segment is rela gin to ileus rather than obstruction. 2. Prominent dilation of the bladder with mild enhancing urothelial thickening at the left renal pelv is suggesting possibility of reflux with ascending urinary tract infection. Correlate with urinalysis . Reviewed, dictated and finalized at location A. IMPRESSION: 1. Ileocolic anastomosis with wall thickening of short segments of the immediat carrie more proximal ileum as well as an additional short segment of ileum in the left lower quadrant with mild dilation of the 20 cm intervening segment of ileu m. Findings would be consistent with reported history of Crohn's disease. Absen ce of additional more proximal small bowel dilation suggests the dilated segmen t is related to ileus rather than obstruction. 2. Prominent dilation of the bladder with mild enhancing urothelial thickening at the left renal pelvis suggesting possibility of reflux with ascending urinar y tract infection. Correlate with urinalysis.
--- NOTE | 2022-05-17 17:40 | ECG_ITS ---
Measurements Intervals [place] Rate: 79 P: 75 [place]: 187 QRS: -3 QRSD: 97 T: 47 QT: 372 QTc: 429 Interpretive Statements SINUS RHYTHM WITH MARKED SINUS ARRHYTHMIA WITH PREMATURE ATRIAL CONTRACTIONS ABNORMAL ECG Electronically Signed On 05-18-2022 10:01:56 CDT by Harley Boswer M.D.
--- NOTE | 2022-05-17 17:56 | ED.FEVER ---
HPI - Fever General Chief Complaint: Fever Stated Complaint: fever, chills after colonoscopy Time Seen by Provider: 05/17/22 17:17 History of Present Illness HPI Narrative: 77-year-old male history of seizure presenting to the emergency department for evaluation of a low-grade fever. Patient was returning from [facility] for a colonoscopy when he had onset of chills. When patient got home he did have a fever of 102. Family called [facility] and they told him to present to the closest emergency department. Patient does have some dementia at baseline but family does feel he is slightly more confused than normal. Related Data Home Medications Medication Instructions Recorded Confirmed Lactobacillus 1 cap PO DAILY 03/21/22 05/18/22 acidophilus-Bifidobac.animalis 2.5 billion cell capsule (Daily Probiotic) amlodipine 5 mg tablet 2.5 mg PO BID 03/21/22 05/18/22 aspirin 81 mg tablet 81 mg PO DAILY 03/21/22 05/18/22 atorvastatin 10 mg tablet 1 tablet PO DAILY 03/21/22 05/18/22 cilostazol 100 mg tablet 1 tablet PO DAILY 03/21/22 05/18/22 coenzyme Q10 10 mg tablet 20 mg PO DAILY 03/21/22 05/18/22 escitalopram oxalate 20 mg tablet 1 tablet PO DAILY 03/21/22 05/18/22 irbesartan 150 mg tablet 150 mg PO DAILY 03/21/22 05/18/22 metoprolol tartrate 25 mg tablet 12.5 mg PO BID 03/21/22 05/18/22 multivit with minerals-iron 18 1 tablet PO DAILY 03/21/22 05/18/22 mg-folic ac 400 mcg-vit K 25 mcg tablet (Adults Multivitamin) omega-3 fatty acids 1 cap PO DAILY 03/21/22 05/18/22 vitamins A,C,Y-[id number]-vskxwp 14,320 1 cap PO DAILY 03/21/22 05/18/22 unit-226 mg-200 unit capsule (PreserVision AREDS) cyanocobalamin (vitamin B-12) 1,000 mcg IM MONTHLY 05/18/22 05/18/22 1,000 mcg/mL injection solution Allergies Allergy/AdvReac Type Severity Reaction Status Date / Time No Known Allergies Allergy Verified 05/17/22 23:15 Review of Systems Review of Systems: CONSTITUTIONAL: Denies fever, chills, or sweats. EYES: Denies visual changes, redness, or discharge. ENT: Denies rhinorrhea, congestion, sore throat, or otalgia. CARDIOVASCULAR: Denies chest pain, palpitations, or edema. RESPIRATORY: Denies cough or dyspnea. GASTROINTESTINAL: Denies abdominal pain, nausea, vomiting, or diarrhea. GENITOURINARY: Denies dysuria or hematuria. SKIN: Denies rash or itching. MUSCULOSKELETAL: Denies back pain, joint pain, or myalgia. NEUROLOGIC: Denies headache, numbness, or weakness. [facility] Past Medical History Medical History (Updated 05/17/22 @ 22:02 by Reuben Loyd MD) B12 deficiency Benign prostatic hyperplasia Chronic kidney disease, stage 3 Coronary artery disease Crohn's disease Depression Gout Hyperlipidemia Hypertension Iron deficiency anemia Kidney stones Osteoarthritis Peripheral vascular disease Seizures Surgical History Surgical History (Updated 03/21/22 @ 13:37 by Bere Kee PA-C) History of cholecystectomy History of coronary artery bypass graft History of lithotripsy History of partial colectomy X2 for to bowel obstructions and fistula secondary to Crohn's disease. History of vascular surgery Bilateral lower extremity stents. Family History Family History (Updated 03/21/22 @ 13:37 by Bere Kee PA-C) Father Myocardial infarct Cerebrovascular accident Mother Breast cancer Sibling Crohn's disease Social History Social History (Updated 03/21/22 @ 13:38 by Bere Kee PA-C) Social History: Surrogate decision maker: Code status: Full code. Smoking packs per day: 2 Smoking cigarettes per day: 40.0 Years smoked: 25 Smoking pack-years: 50.00 Smoking status: Former smoker Tobacco type: cigarettes Second hand tobacco smoke exposure: No Smoking end date: 09/22/86 Alcohol intake: former Drinks per week: 1 Substance use: never Substance use type: does not use Additional living arrangements comments: The patient lives with his in [place]. Addit
[2022-05-17] MEDS: SODIUM CHLORIDE 0.9% IV 1,000 ML 500 ML IV CONT (18:09)
[2022-05-17 18:37] LABS: Hematocrit 25.8 % (42.0-52.0); Hemoglobin 7.8 g/dL (14.0-18.0); Mean Corpuscular HGB Conc 30.2 g/dl (32-36); Mean Corpuscular Hemoglobin 32.4 pg (26-34); Mean Corpuscular Volume 107.1 fl (80-100); Mean Platelet Volume 10.7 fl (7.4-10.4); Platelet Count Result 146 k/mm3 (150-375); Red Blood Count 2.41 M/mm3 (4.6-6.20); Red Cell Distribution Width 14.9 % (11.5-14.5); White Blood Count 7.7 K/mm3 (4.5-10.0)
[2022-05-17 18:46] LABS: Alanine Aminotransferase 34 U/L (6-50); Albumin Level 2.7 g/dL (3.5-5.1); Alkaline Phosphatase 106 U/L (38-126); Anion Gap 8 mmol/L (8-16); Aspartate Amino Transferase 26 U/L (17-59); Bilirubin,Total 0.8 mg/dL (0.2-1.3); Blood Urea Nitrogen 18 mg/dL (9-20); Calcium 7.2 mg/dL (8.4-10.2); Carbon Dioxide 14 mmol/L (22-30); Chloride 110 mmol/L (98-107); Estimated CRCL calculation 32 ml/min; Estimated Glomerular Filt Rate 42; Glucose 89 mg/dL (65-110); Potassium 3.2 mmol/L (3.4-5.0); Sodium 132 mmol/L (137-145)
[2022-05-17 19:10] LABS: Band Neutrophils Percent 11 % (0-6); Lymphocytes Absolute Manual 0.15 K/mm3 (1.1-4.5); Monocytes Absolute Manual 0.15 K/mm3 (0.1-0.90); Monocytes Percent Manual 2 % (3-9); Neutrophils Absolute Manual 7.39 K/mm3 (1.3-6.7); Neutrophils Percent Manual 85 % (46-73); Nucleated Red Blood Cells 1 %; Total Cells Counted 100
[2022-05-17 19:11] LABS: Anisocytosis 2+ (NORMAL); Hypochromasia 1+ (NORMAL)
[2022-05-17 20:40] LABS: SARS-CoV-2 RNA PCR Negative
[2022-05-17] MEDS: POTASSIUM CHLORIDE 20 MEQ PACKET (FOR LIQUID) 40 MEQ PO (20:58)
[2022-05-17] MEDS: SODIUM CHLORIDE 0.9% IV 1,000 ML 999 ML IV CONT (20:59)
--- NOTE | 2022-05-17 21:28 | ECG_ITS ---
Measurements Intervals [place] Rate: 110 P: [place]: 0 QRS: 60 QRSD: 94 T: -12 QT: 329 QTc: 446 Interpretive Statements ATRIAL FIBRILLATION WITH RAPID VENTRICULAR RESPONSE NONSPECIFIC ST & T-WAVE ABNORMALITY ABNORMAL ECG Electronically Signed On 05-18-2022 10:03:33 CDT by Harley Bowser M.D.
[2022-05-17 21:54] LABS: Appearance Urine Clear (Clear); Bilirubin Urine Negative (Negative); Blood Urine Negative (Negative); Color Urine Yellow (Yellow); Glucose Urine UA Negative (Negative); Ketones Urine Negative (Negative); Leukocyte Esterase Ur Trace LEU/UL (Negative); Nitrate Urine Positive (Negative); Protein Urine Negative (Negative); Specific Grav Ur 1.015 (1.001-1.035); Urobilinogen Urine 0.2 mg/dL (<2.0); pH Urine 5.5 (5.0-9.0)
[2022-05-17 22:05] LABS: Amorphous Sediment Urine Few; Bacteria Urine Trace /hpf; Mucus Urine Rare /lpf; Squamous Epithelial Cell Urine Rare /hpf (Few); WBC Urine 0-3 /hpf
[2022-05-17 22:06] LABS: Add Urine Microscopic? YES
--- NOTE | 2022-05-17 22:11 | PM.IMHP ---
H&P: HPI History of Present Illness Date/Time: 05/17/22 22:11 Chief Complaint: Fever Narrative: This is a 77-year-old male with past medical history significant for Crohn's disease, hypertension, hyperlipidemia, osteoarthritis, kidney stones, peripheral vascular disease, seizure disorder, chronic kidney disease, benign prostatic hyperplasia. patient had colonoscopy procedure and on the way home had an episode of rigors and fever in the car was brought to the emergency room for evaluation. patient has been in his usual state of health up until this point in emergency room he was also found to have atrial fibrillation with rapid ventricular response requiring a drip. Patient was also confused and delirious gave most of the history at the time of my visit patient was line mental status and denied any loss of consciousness, syncope, near syncope, chest pain, shortness of breath, cough, sputum production, nausea, vomiting, patient had colon prep the night before. preliminary workup was significant for CT of abdomen and pelvis reported as follows: 1. Ileocolic anastomosis with wall thickening of short segments of the immediately more proximal ileum as well as an additional short segment of ileum in the left lower quadrant with mild dilation of the 20 cm intervening segment of ileum. Findings would be consistent with reported history of Crohn's disease. Absence of additional more proximal small bowel dilation suggests the dilated segment is related to ileus rather than obstruction. 2. Prominent dilation of the bladder with mild enhancing urothelial thickening at the left renal pelvis suggesting possibility of reflux with ascending urinary tract infection. Correlate with urinalysis. in emergency room patient received initial dose of antibiotics and is being admitted for further evaluation ,management and treatment. Review of Systems Review of Systems: After colonoscopy procedure on the way home in the car patient had episode of rigors and fever. Constitutional: Constitutional: Denies body ache(s), Reports chills, Denies fatigue, Reports fever(s), Reports malaise, Denies night sweats and Denies poor appetite Eyes: Eyes: Denies change in vision ENT: Denies dysphagia, Denies vertigo, Denies dizziness and Denies odynophagia Cardiovascular: Cardiovascular: Denies chest pain, Denies syncope, Denies irregular heart rhythm, Reports lightheadedness, Denies palpitations and Denies dyspnea on exertion Respiratory: Respiratory: Denies chest congestion, Denies excessive phlegm production, Denies pain on inspiration, Denies dyspnea and Denies dyspnea on exertion Gastrointestinal: Gastrointestinal: Denies abdominal pain, Denies dyspepsia, Denies heartburn, Denies nausea and Denies vomiting Genitourinary: Genitourinary: Denies dysuria Musculoskeletal: Musculoskeletal: Denies myalgias, Denies arthralgias and Denies joint swelling Integumentary/Breasts: Skin/Breast: Denies rash Neurologic: Denies vertigo, Denies dizziness, Denies focal weakness and Denies Sensory deficit (Neuro) Psychiatric: Psychiatric: Reports no additional psychiatric complaints and Reports as per HPI Endocrine: Endocrine: Denies cold intolerance, Denies flushing, Denies heat intolerance, Denies polyphagia, Denies polydipsia and Denies palpitations Hematologic/Lymphatic: Hematologic/Lymphatic: Reports no additional hematologic/lymphatic complaints and Reports as per HPI Allergic/Immunologic: Allergic/Immunologic: Reports no additional allergic/immunologic complaints and Reports as per HPI PMFSH Past Medical History Medical History (Updated 05/17/22 @ 22:02 by Reuben Loyd MD) B12 deficiency Benign prostatic hyperplasia Chronic kidney disease, stage 3 Coronary artery disease Crohn's disease Depression Gout Hyperlipidemia Hypertension Iron deficiency anemia Kidney stones Osteoarthritis Peripheral vascular disease Seizures Surgical History Surgical History (Updated
--- NOTE | 2022-05-17 23:04 | PC.NURSE ---
Pt care transferred to [facility]
[2022-05-18] VITALS (19 sets, daily range): BP systolic 97–135; BP diastolic 45–71; PULSE 52–122; RESP 12–24; TEMP 36.4–38.1; O2SAT 94–100; BMI 21.1
[2022-05-18] MEDS: dilTIAZem HCl INJ 25 MG/5 ML VIAL 10 MG IV PUSH (00:11)
[2022-05-18] MEDS: dilTIAZem 100 MG/100 ML 100 MG/100 ML BAG IV CONT (00:16)
--- NOTE | 2022-05-18 00:33 | ADMGEN ---
This patient, Vitaly Oreilly, was admitted to IMU Room 206-01 at 0030. Patient/family oriented to hospital policies and general routines including ID bracelet, bed and alarms, visiting hours, pain management, procedures, bathroom and other care routines, personal items, smoking policy, room service/diet, and visiting hours. Information on how to activate the Rapid Response Team has been discussed. Patient/Family are encouraged to report perceived risks to care and to ask questions if they do not understand what they are told or what they should do.
[2022-05-18] MEDS: OMEGA 3 POLYUNSAT FATTY ACIDS 1 GM CAP PO (10:32)
[2022-05-18] MEDS: OPTI-GEN TAB 1 TABLET PO (10:32)
[2022-05-18] MEDS: POTASSIUM CHLORIDE 20 MEQ TABLET PO (10:32)
[2022-05-18] MEDS: METOPROLOL TARTRATE 12.5 MG TABLET PO ×2 (10:32→20:49)
[2022-05-18] MEDS: MULTIVITAMINS /C LUTEIN (CENTRUM SILVER) TABLET *BKC 1 TAB PO (10:32)
[2022-05-18] MEDS: ENOXAPARIN 80 MG/0.8 ML SYRINGE 70 MG SUB-Q (10:33)
[2022-05-18] MEDS: ATORVASTATIN 10 MG TABLET PO (10:33)
[2022-05-18] MEDS: ESCITALOPRAM OXALATE 10 MG TABLET 20 MG PO (10:33)
[2022-05-18] MEDS: ACIDOPHILUS/BULGARICUS CHEWABLE TABLET 2 TABLET BY MOUTH (10:33)
[2022-05-18] MEDS: ASPIRIN 81 MG ENTERIC TABLET PO (10:33)
--- NOTE | 2022-05-18 12:51 | PM.IMPN ---
Progress Note: A&P Assessment and Plan (1) Atrial fibrillation with rapid ventricular response: Code(s): I48.91 - Unspecified atrial fibrillation Status: Acute Assessment and Plan: Heart rates now controlled with low-dose Cardizem drip. Will titrate off (2) Acute UTI: Code(s): N39.0 - Urinary tract infection, site not specified Status: Acute Assessment and Plan: IV antibiotic (3) Fever: Code(s): R50.9 - Fever, unspecified Status: Acute Assessment and Plan: Secondary to UTI. Continue IV antibiotics (4) Chronic kidney disease, stage 3: Code(s): N18.30 - Chronic kidney disease, stage 3 unspecified Status: Acute Assessment and Plan: Monitor (5) Crohn's disease: Code(s): K50.90 - Crohn's disease, unspecified, without complications Status: Acute Assessment and Plan: Chronic Subjective Date/time seen: 05/18/22 12:51 No complaints, patient's heart rate is in the 50s and 60s. Exam Narrative: General: alert and oriented Psych: appropriate mood nad affect Eyes: PERRLA Neck: Trachea midline, no new lesions Skin: no changes Lungs: CTA Cardiac: Normal S1,S2, no MGR ABD: soft, nd, nt, nbs Ext: no new lesions, no cce Vasc: Pulses intact Objective Data Vital Signs Vital Signs: Vital Signs - 24 hr 05/17/22 16:57 05/17/22 17:26 05/17/22 17:26 Temperature 99.9 F H Pulse Rate 115 H 112 H Respiratory Rate 20 15 Blood Pressure 82/42 L 91/51 L Pulse Oximetry 97 99 99 Oxygen Delivery Room Air 05/17/22 19:06 05/17/22 17:26 05/17/22 17:27 Temperature 98.7 F Pulse Rate 102 H 116 H Respiratory Rate 19 29 H Blood Pressure 91/51 L Pulse Oximetry 99 97 Oxygen Delivery 05/17/22 17:35 05/17/22 17:45 05/17/22 17:46 Temperature Pulse Rate 105 H 97 96 Respiratory Rate 25 H 25 H 27 H Blood Pressure 88/53 L Pulse Oximetry 99 100 Oxygen Delivery 05/17/22 18:06 05/17/22 18:19 05/17/22 18:39 Temperature Pulse Rate 96 98 96 Respiratory Rate 24 H 26 H 21 H Blood Pressure Pulse Oximetry 99 96 Oxygen Delivery 05/17/22 18:45 05/17/22 18:46 05/17/22 19:14 Temperature Pulse Rate 88 98 97 Respiratory Rate 25 H 26 H 21 H Blood Pressure 89/46 L Pulse Oximetry 98 Oxygen Delivery 05/17/22 19:25 05/17/22 19:30 05/17/22 19:36 Temperature Pulse Rate 97 91 91 Respiratory Rate 13 20 26 H Blood Pressure 89/51 L Pulse Oximetry 81 L Oxygen Delivery 05/17/22 19:56 05/17/22 20:00 05/17/22 20:34 Temperature Pulse Rate 104 H 93 90 Respiratory Rate 24 H 27 H 25 H Blood Pressure 93/47 L Pulse Oximetry 100 100 Oxygen Delivery 05/17/22 20:45 05/17/22 21:03 05/17/22 21:16 Temperature Pulse Rate 91 110 H 101 H Respiratory Rate 23 H 15 24 H Blood Pressure Pulse Oximetry Oxygen Delivery 05/17/22 21:30 05/17/22 21:45 05/17/22 22:00 Temperature Pulse Rate 117 H 111 H 115 H Respiratory Rate 20 15 23 H Blood Pressure 117/70 Pulse Oximetry Oxygen Delivery 05/17/22 22:03 05/17/22 22:15 05/17/22 22:46 Temperature Pulse Rate 124 H 103 H 120 H Respiratory Rate 22 H 32 H 25 H Blood Pressure Pulse Oximetry Oxygen Delivery 05/17/22 23:01 05/17/22 23:56 05/18/22 00:00 Temperature 100.4 F H Pulse Rate 113 H 124 H 122 H Respiratory Rate 21 H 23 H 22 H Blood Pressure 114/57 L Pulse Oximetry 94 Oxygen Delivery 05/18/22 00:01 05/18/22 00:16 05/18/22 00:21 Temperature Pulse Rate 121 H 120 H 102 H Respiratory Rate 19 24 H Blood Pressure 99/55 L 107/52 L Pulse Oximetry 100 100 Oxygen Delivery 05/18/22 00:50 05/18/22 04:00 05/18/22 02:00 Temperature 100.6 F H 99.6 F Pulse Rate 101 H 111 H 91 Respiratory Rate 16 20 Blood Pressure 104/53 L 100/45 L Pulse Oximetry 100 97 Oxygen Delivery 05/18/22 04:00 05/18/22 06:00 05/18/22 08:00 Temperature 99.3 F Pulse Rate
[2022-05-19] VITALS (9 sets, daily range): BP systolic 93–118; BP diastolic 54–85; PULSE 65–97; RESP 12–17; TEMP 36.3–36.9; O2SAT 100
[2022-05-19 06:49] LABS: Anion Gap 6 mmol/L (8-16); Blood Urea Nitrogen 15 mg/dL (9-20); Calcium 6.9 mg/dL (8.4-10.2); Carbon Dioxide 15 mmol/L (22-30); Chloride 112 mmol/L (98-107); Estimated CRCL calculation 36 ml/min; Estimated Glomerular Filt Rate 49; Glucose 88 mg/dL (65-110); Potassium 3.4 mmol/L (3.4-5.0); Sodium 133 mmol/L (137-145)
[2022-05-19] MEDS: OMEGA 3 POLYUNSAT FATTY ACIDS 1 GM CAP PO (08:46)
[2022-05-19] MEDS: MULTIVITAMINS /C LUTEIN (CENTRUM SILVER) TABLET *BKC 1 TAB PO (08:46)
[2022-05-19] MEDS: ESCITALOPRAM OXALATE 10 MG TABLET 20 MG PO (08:46)
[2022-05-19] MEDS: ASPIRIN 81 MG ENTERIC TABLET PO (08:46)
[2022-05-19] MEDS: ENOXAPARIN 80 MG/0.8 ML SYRINGE 70 MG SUB-Q (08:46)
[2022-05-19] MEDS: OPTI-GEN TAB 1 TABLET PO (08:46)
[2022-05-19] MEDS: ACIDOPHILUS/BULGARICUS CHEWABLE TABLET 2 TABLET BY MOUTH (08:47)
[2022-05-19] MEDS: ATORVASTATIN 10 MG TABLET PO (08:47)
[2022-05-19] MEDS: METOPROLOL TARTRATE 12.5 MG TABLET PO (08:47)
[2022-05-19 09:11] LABS: Hematocrit 24.8 % (42.0-52.0); Hemoglobin 7.6 g/dL (14.0-18.0); Mean Corpuscular HGB Conc 30.6 g/dl (32-36); Mean Corpuscular Hemoglobin 32.6 pg (26-34); Mean Corpuscular Volume 106.4 fl (80-100); Mean Platelet Volume 10.7 fl (7.4-10.4); Platelet Count Result 101 k/mm3 (150-375); Red Blood Count 2.33 M/mm3 (4.6-6.20); Red Cell Distribution Width 14.6 % (11.5-14.5); White Blood Count 4.5 K/mm3 (4.5-10.0)
--- NOTE | 2022-05-19 10:14 | PM.DS ---
DS: Admitting Diagnosis Discharge Date May 19, 2022 Admitting Diagnosis UTI DS: Discharge Diagnosis Discharge Diagnosis (1) Atrial fibrillation with rapid ventricular response: Code(s): I48.91 - Unspecified atrial fibrillation Status: Acute Assessment and Plan: History of paroxysmal atrial fibrillation. Rates are now between 70s and 90s. Asymptomatic. No anticoagulation as this has been discussed in the past according to the . No anticoagulation secondary to Crohn's disease and GI bleeding. (2) Acute UTI: Code(s): N39.0 - Urinary tract infection, site not specified Status: Acute Assessment and Plan: Improved after being on Rocephin in the hospital. Will discharge on p.o. Omnicef. Blood cultures negative today (3) Fever: Code(s): R50.9 - Fever, unspecified Status: Acute Assessment and Plan: according to CT of abdomen noted patient has history of Crohn's disease. No complication from his colonoscopy was identified on CT scan. Abdominal exam is benign. (4) Chronic kidney disease, stage 3: Code(s): N18.30 - Chronic kidney disease, stage 3 unspecified Status: Acute Assessment and Plan: BUN and creatinine at patient's baseline continue to monitor (5) Crohn's disease: Code(s): K50.90 - Crohn's disease, unspecified, without complications Status: Acute Assessment and Plan: active Crohn's disease follow-up in the outpatient setting DS: Summary Hospital Course Hospital Course: Patient is 77-year-old male who came in with abdominal cramping and found have a UTI. His abdominal cramping did occur after colonoscopy which was uneventful. CT scan of the abdomen was negative for perforation or any complication from the colonoscopy. UTI was noted on UA. Patient was started on IV Rocephin and improved significantly. Patient sitting up in bed unable to communicate family says he is back to his baseline. He does have issues with oral antibiotics causing upset stomach with his Crohn's disease. We are going to try dose oral antibiotics and any can be discharged home on oral Omnicef. To note patient did have paroxysmal atrial fibrillation with RVR rates are now controlled between 70 and 90. No anticoagulation secondary to GI issues. This has been discussed in the past. Time Spent with Patient Time attestation: Total time spent providing and/or coordinating discharge services: Exam Narrative: General: alert and oriented Psych: appropriate mood nad affect Eyes: PERRLA Neck: Trachea midline, no new lesions Skin: no changes Lungs: CTA Cardiac: Normal S1,S2, no MGR ABD: soft, nd, nt, nbs Ext: no new lesions, no cce Vasc: Pulses intact DS: Data Data Completed and Pending Labs on day of discharge: Labs from last 24 hours 05/19/22 05/19/22 05:56 05:54 WBC 4.5 RBC 2.33 L Hgb 7.6 L Hct 24.8 L MCV 106.4 H MCH 32.6 MCHC 30.6 L RDW 14.6 H Plt Count 101 L MPV 10.7 H Sodium 133 L Potassium 3.4 Chloride 112 H Carbon Dioxide 15 L Anion Gap 6 L BUN 15 Creatinine 1.40 H Estim Creat Clear Calc 36 Estimated GFR 49 L Glucose 88 Calcium 6.9 L Preliminary micro results at discharge 05/17/22 22:48 Blood Culture - Preliminary Blood 05/17/22 22:48 Blood Culture - Preliminary Blood Discharge Plan Discharge Attending physician on discharge: Jeffery Mueller Discharging Clinician: Jeffery Mueller Patient Disposition: Home, Self-Care Activity: no preference Diet: as tolerated Patient Instructions: Antibiotic Form, A-fib (Atrial Fibrillation) (DC), Urinary Tract Infection in Men (DC) Stand Alone Forms: General Discharge Information Follow-up/Referrals: Kaylan,John Clemons MD [Primary Care Provider] - Discharge Medications: New cefdinir 300 mg capsule 300 mg PO Q12H Qty: 10 0RF Continued atorvastatin 10 mg tablet 1 t
[2022-05-19] MEDS: CEFDINIR 300 MG CAPSULE PO (11:44)
== END 2022-05-19 15:43 | disposition home or self-care (01) | DRG 690 ==
LOC: ANHED 22:02 → ANHIMU 23:44
PROVIDERS: Admitting Provider Internal Medicine; Emergency Provider Emergency Medicine; PCP Internal Medicine; Visit Provider Chiropractor
DX: N39.0 Urinary tract infection, site not specified (principal); K50.90 Crohn's disease, unspecified, without complications; I48.0 Paroxysmal atrial fibrillation; N18.30 Chronic kidney disease, stage 3 unspecified; I12.9 Hypertensive chronic kidney disease with stage 1 through stage 4 chronic kidney disease, or unspecified chronic kidney disease; N18.9 Chronic kidney disease, unspecified; Z20.822 Contact with and (suspected) exposure to COVID-19; N40.0 Benign prostatic hyperplasia without lower urinary tract symptoms; I25.10 Atherosclerotic heart disease of native coronary artery without angina pectoris; D50.9 Iron deficiency anemia, unspecified; M19.90 Unspecified osteoarthritis, unspecified site; I73.9 Peripheral vascular disease, unspecified; E78.5 Hyperlipidemia, unspecified; E53.8 Deficiency of other specified B group vitamins; M10.9 Gout, unspecified; Z87.442 Personal history of urinary calculi; Z90.49 Acquired absence of other specified parts of digestive tract; Z95.1 Presence of aortocoronary bypass graft; Z87.891 Personal history of nicotine dependence; G40.909 Epilepsy, unspecified, not intractable, without status epilepticus
CPT/HCPCS: 36415; 74177; 80048; 80053; 81001; 85025; 85027; 87040; 93005; 96361; 96365; 96366; 96367; 96372; 99285; A9270; C9803; G0378; J0696; J1650; J2543; J3370; J7030; Q9967; U0003; U0005

== ENCOUNTER 2022-08-07 09:47 | Inpatient (IN) | payer MEDICARE, SELFPAY ==
[2022-08-07] VITALS (16 sets, daily range): BP systolic 92–131; BP diastolic 57–85; PULSE 74–139; RESP 18–21; TEMP 37.2–37.6; O2SAT 97–100
--- NOTE | ~2022-08-07 | XR_ITS ---
XR chest 1V portable 08/12/2022 09:13 Indication: Leukocytosis. Procedure: AP portable chest Comparison: Comparison to multiple prior studies sequentially, with oldest reviewed study dated 11/18. Findings: Status post median sternotomy for CABG. Cardiomegaly. There are subtle interstitial infiltr ates of the lung bases. No significant effusion or pneumothorax. No acute osseous abnormality. Impression: 1: Subtle bibasilar infiltrates which may represent edema or pneumonia. Reviewed, dictated and finalized at location B. IDE MACHINIST APPRENTICE Impression: 1: Subtle bibasilar infiltrates which may represent edema or pneumonia.
--- NOTE | ~2022-08-07 | XR_ITS ---
EXAMINATION: XR chest 2V 08/07/2022 11:27 INDICATION: Weakness. PROCEDURE: AP and lateral views of the chest COMPARISON: Comparison to multiple prior studies sequentially, with oldest reviewed study dated 05/09. FINDINGS: The lungs are clear. The cardiomediastinal silhouette is within normal limits. There are no pleural effusions. There is no pneumothorax suspected. There are median sternotomy wires for bryant or CABG. There are cholecystectomy clips. IMPRESSION: 1: NO ACUTE CARDIOPULMONARY DISEASE. Reviewed, dictated and finalized at location A. URCE MANAGER FORESTER
--- NOTE | 2022-08-07 09:48 | ECG_ITS ---
Measurements Intervals [place] Rate: 134 P: MT: 0 QRS: 75 QRSD: 93 T: -86 QT: 279 QTc: 417 Interpretive Statements ATRIAL FIBRILLATION WITH RAPID VENTRICULAR RESPONSE ST-T WAVE ABNORMALITY IN ANTEROLAT/INF LEADS- CONSIDER ISCHEMIA BASELINE ARTIFACT- I, II, III, AVR, AVL ,AVF, V1, V3, V5-V6 ABNORMAL ECG COMPARED TO ECG 05/17/2022 21:56:48 NO SIGNIFICANT CHANGES Electronically Signed On 08-07-2022 12:11:21 CLAIMS EXAMINER by Yared Martinez D.O.
--- NOTE | 2022-08-07 09:54 | ED.WEAKNESS ---
HPI - Weakness General Chief complaint: Weakness Stated complaint: weakness & fever Time Seen by Provider: 08/07/22 09:53 Source: patient, family and EMS Limitations: no limitations History of Present Illness HPI Narrative: 77 years old white male came to the emergency room with his who is telling me that he been weak, productive cough, decreased oral intake, for the last 4 days. History of atrial fibrillation not on any anticoagulant medication because of history of Crohn's disease. She also telling me that patient been running fever up to 1 or 2.7 lately. She denies any sick contact. History of hypertension, hyperlipidemia, CABG, DNR, he does not smoke or drink, currently on aspirin. He denies any abdominal pain or urinary symptoms. Related Data Home Medications Medication Instructions Recorded Confirmed Lactobacillus 1 cap PO DAILY 03/21/22 05/18/22 acidophilus-Bifidobac.animalis 2.5 billion cell capsule (Daily Probiotic) amlodipine 5 mg tablet 2.5 mg PO BID 03/21/22 05/18/22 aspirin 81 mg tablet 81 mg PO DAILY 03/21/22 05/18/22 atorvastatin 10 mg tablet 1 tablet PO DAILY 03/21/22 05/18/22 cilostazol 100 mg tablet 1 tablet PO DAILY 03/21/22 05/18/22 coenzyme Q10 10 mg tablet 20 mg PO DAILY 03/21/22 05/18/22 escitalopram oxalate 20 mg tablet 1 tablet PO DAILY 03/21/22 05/18/22 irbesartan 150 mg tablet 150 mg PO DAILY 03/21/22 05/18/22 metoprolol tartrate 25 mg tablet 12.5 mg PO BID 03/21/22 05/18/22 multivit with minerals-iron 18 1 tablet PO DAILY 03/21/22 05/18/22 mg-folic ac 400 mcg-vit K 25 mcg tablet (Adults Multivitamin) omega-3 fatty acids 1 cap PO DAILY 03/21/22 05/18/22 vitamins A,C,U-qxid-momfui 14,320 1 cap PO DAILY 03/21/22 05/18/22 unit-226 mg-200 unit capsule (PreserVision AREDS) cyanocobalamin (vitamin B-12) 1,000 mcg IM MONTHLY 05/18/22 05/18/22 1,000 mcg/mL injection solution Allergies Allergy/AdvReac Type Severity Reaction Status Date / Time No Known Allergies Allergy Verified 05/17/22 23:15 Review of Systems Review of Systems: All systems reviewed & are unremarkable except as noted in HPI and below PMFSH Past Medical History Medical History B12 deficiency Benign prostatic hyperplasia Chronic kidney disease, stage 3 Coronary artery disease Crohn's disease Depression Gout Hyperlipidemia Hypertension Iron deficiency anemia Kidney stones Osteoarthritis Peripheral vascular disease Seizures Surgical History Surgical History History of cholecystectomy History of coronary artery bypass graft History of lithotripsy History of partial colectomy X2 for to bowel obstructions and fistula secondary to Crohn's disease. History of vascular surgery Bilateral lower extremity stents. Family History Family History Father Myocardial infarct Cerebrovascular accident Mother Breast cancer Sibling Crohn's disease Social History Social History Social History: Surrogate decision maker: Code status: Full code. Smoking packs per day: 2 Smoking cigarettes per day: 40.0 Years smoked: 25 Smoking pack-years: 50.00 Smoking status: Former smoker Tobacco type: cigarettes Second hand tobacco smoke exposure: No Smoking end date: 09/22/86 Alcohol intake: former Drinks per week: 1 Substance use: never Substance use type: does not use Additional living arrangements comments: The patient lives with his in [place]. Additional occupation/education comments: Retired from [employer]. Spiritual care concerns: No Exam Narrative: General appearance: Well-developed, well-nourished Skin: Normal color Head: Normocephalic, nontraumatic Eyes: Clear conjunctiva ENT: Oropharynx normal, ears normal, nose normal Neck: Supple, nont
[2022-08-07] MEDS: dilTIAZem HCl INJ 25 MG/5 ML VIAL 10 MG IV PUSH (10:12)
[2022-08-07] MEDS: dilTIAZem 100 MG/100 ML 100 MG/100 ML BAG IV CONT (10:12)
[2022-08-07 10:16] LABS: Basophils Absolute Auto 0.1 K/mm3 (0.0-0.1); Eosinophils Absolute Auto 0.1 K/mm3 (0-0.3); Hematocrit 29.7 % (42.0-52.0); Hemoglobin 9.6 g/dL (14.0-18.0); Immature Granulocyte Absolute 0.04 K/mm3 (0.00-0.031); Immature Granulocyte Percent A 0.6 % (0-0.5); Lymphocytes Absolute Auto 0.67 K/mm3 (0.9-3.2); Lymphocytes Percent Auto 9.5 % (18.3-44.2); Mean Corpuscular HGB Conc 32.3 g/dl (32-36); Mean Corpuscular Volume 102.1 fl (80-100); Mean Platelet Volume 10.2 fl (7.4-10.4); Monocytes Absolute Auto 0.6 K/mm3 (0.1-0.6); Monocytes Percent Auto 8.6 % (2.6-8.5); Neutrophils Absolute Auto 5.6 K/mm3 (1.3-6.7); Neutrophils Percent Auto 78.3 % (45.5-73.1); Platelet Count Result 147 k/mm3 (150-375); Red Blood Count 2.91 M/mm3 (4.6-6.20); Red Cell Distribution Width 15.2 % (11.5-14.5); White Blood Count 7.1 K/mm3 (4.5-10.0)
[2022-08-07 10:26] LABS: Lactic Acid Reflex 1.4 mmol/L (0.7-2.0)
[2022-08-07 10:28] LABS: Alanine Aminotransferase 39 U/L (6-50); Albumin Level 3.3 g/dL (3.5-5.1); Alkaline Phosphatase 108 U/L (38-126); Anion Gap 9 mmol/L (8-16); Aspartate Amino Transferase 30 U/L (17-59); Bilirubin,Total 1.1 mg/dL (0.2-1.3); Blood Urea Nitrogen 20 mg/dL (9-20); Calcium 7.3 mg/dL (8.4-10.2); Carbon Dioxide 15 mmol/L (22-30); Chloride 113 mmol/L (98-107); Estimated CRCL calculation 29 ml/min; Estimated Glomerular Filt Rate 39; Glucose 98 mg/dL (65-110); Potassium 3.7 mmol/L (3.4-5.0); Sodium 137 mmol/L (137-145)
[2022-08-07 11:26] LABS: Appearance Urine Slightly Cloudy (Clear); Bilirubin Urine Negative (Negative); Blood Urine Trace-intact (Negative); Color Urine Yellow (Yellow); Glucose Urine UA Negative (Negative); Ketones Urine Trace mg/dL (Negative); Leukocyte Esterase Ur 2+ LEU/UL (Negative); Nitrate Urine Positive (Negative); Protein Urine Negative (Negative); Urobilinogen Urine 0.2 mg/dL (<2.0)
[2022-08-07 11:39] LABS: Bacteria Urine 2+ /hpf; Mucus Urine Rare /lpf; Renal Epithelial Cells Urine Rare /hpf (None Seen); Squamous Epithelial Cell Urine Many /hpf (Few); WBC Urine 51-75 /hpf
[2022-08-07 11:44] LABS: Add Urine Microscopic? YES
[2022-08-07 12:21] LABS: Troponin I < 0.012 ng/mL (0.000-0.034)
[2022-08-07 12:49] LABS: Influenza A QL RT-PCR Positive (Negative); Influenza B QL RT-PCR Negative (Negative); RSV RNA, RT-PCR Negative (Negative); SARS-CoV-2 RNA PCR Negative
--- NOTE | 2022-08-07 13:30 | PM.IMHP ---
H&P: HPI History of Present Illness Date/Time: 08/07/22 13:30 Chief Complaint: Weak. Narrative: This is a 77-year-old male with vascular dementia, hypertension, peripheral vascular disease, coronary artery disease, paroxysmal atrial fibrillation, peripheral vascular disease, chronic kidney disease, anemia, Crohn's disease, and other comorbidities who presented to the emergency department for evaluation of weakness. He is a fair historian and some of the following history is obtained from his Sarah who is at bedside, with the patient's permission. He has not been feeling well for 4 days with symptoms to include muscle aches, nonproductive cough, deep decreased appetite, and temperature to 102.7? Fahrenheit. He has been taking acetaminophen which helps for a period of time though his symptoms keep returning. He has gotten increasingly weak and his brought him in today for evaluation. In the ED he was found to be positive for influenza A and his urine is also concerning for urinary tract infection. On arrival he was tachycardic and was noted to be in atrial fibrillation with rapid ventricular response for which he was started on a diltiazem drip with improvement in his rate. He is being admitted in this setting for further treatment. At the time my evaluation he reports feeling a bit better with IV fluids and better rate control of his heart. He has no known sick contacts and has not had similar symptoms. He denies headache and neck ache. No chest pain or significant shortness of breath. He has not had any vomiting. He has frequent diarrhea due to Crohn's disease in this is unchanged. Of note he is currently in a study at [facility] for his Crohn's disease and is blinded to a medication that he takes daily. reached out to the coordinator for the study and related his current clinical issues and they request that he continues to take this drug. Review of Systems Review of Systems: Twelve systems were reviewed and are negative except for as per HPI. [facility] Past Medical History Medical History (Updated 08/07/22 @ 21:12 by Bere Kee PA-C) B12 deficiency Benign prostatic hyperplasia Chronic anemia Chronic kidney disease, stage 3 Coronary artery disease Crohn's disease Depression Gout Hyperlipidemia Hypertension Iron deficiency anemia Kidney stones Osteoarthritis Peripheral vascular disease Seizures Vascular dementia Surgical History Surgical History (Updated 08/07/22 @ 21:08 by Bere G. Gerling, PA-C) History of bilateral cataract extraction History of cholecystectomy History of coronary artery bypass graft History of lithotripsy History of partial colectomy X2 for to bowel obstructions and fistula secondary to Crohn's disease. History of vascular surgery Bilateral lower extremity stents. Family History Family History Father Myocardial infarct Cerebrovascular accident Mother Breast cancer Sibling Crohn's disease Social History Social History (Updated 08/07/22 @ 21:09 by Bere Kee PA-C) Social History: Surrogate decision maker: Sarah Oreilly, spouse. Code status: Do not resuscitate. Smoking packs per day: 2 Smoking cigarettes per day: 40.0 Years smoked: 25 Smoking pack-years: 50.00 Smoking status: Never smoker Tobacco type: cigarettes Second hand tobacco smoke exposure: No Smoking end date: 09/22/86 Alcohol intake: never Drinks per week: 1 Substance use: never Substance use type: does not use Lack of Transportation: No Lack of Food: Never True Current Housing: I Have Housing Concerned About Future Housing: No Difficulty Paying Gas/Electric Bills: No Difficulty Paying for Meds: No Currently Unemployed: No Education: Don't Know Difficulty w/ Childcare or Family Care: No Additional living arrangements comments: The patient lives with his in [place].
[2022-08-07 15:42] LABS: Troponin I < 0.012 ng/mL (0.000-0.034)
--- NOTE | 2022-08-07 17:07 | PC.NURSE ---
Spoke with Orestes in pharmacy to verify blister pack of clinical trial medications. Unable to physically verify due to opaque blister pack. Placed in IMU refrigerator per medication instructions. KRISTIAN Aguilar, approved medication for daily use as prescribed.
--- NOTE | 2022-08-07 17:10 | ADMGEN ---
This patient, Vitaly Oreilly, was admitted to IMU Room 207-01. Patient/family oriented to hospital policies and general routines including ID bracelet, bed and alarms, visiting hours, pain management, procedures, bathroom and other care routines, personal items, smoking policy, room service/diet, and visiting hours. Information on how to activate the Rapid Response Team has been discussed. Patient/Family are encouraged to report perceived risks to care and to ask questions if they do not understand what they are told or what they should do.
[2022-08-07 18:31] LABS: Troponin I < 0.012 ng/mL (0.000-0.034)
--- NOTE | 2022-08-07 19:21 | PHAR ---
Addendum entered by Shila Donis [facility] 08/07/22 19:30: Pt is enrolled in a clinical trial for his Crohns at [facility]. They need him to continue the medicine while in the hospital. Family is bringing the medication in so he may take it as directed. Original Note: [facility] INVESTIGATIONAL [place] PT ID [id number] INVESTIGATIONAL BLISTER JESUS BROUGHT FROM HOME TO USE DIRECTED. [id number] CAPSULE, 3MG ( THE FREE BASE) OR PLACEBO
[2022-08-07] MEDS: SODIUM CHLORIDE 0.9% IV 1,000 ML 125 ML IV CONT (20:22)
[2022-08-07] MEDS: METOPROLOL TARTRATE 12.5 MG TABLET PO (22:27)
[2022-08-08] VITALS (22 sets, daily range): BP systolic 100–120; BP diastolic 52–71; PULSE 73–113; RESP 16–24; TEMP 37.3–38.5; O2SAT 95–100; BMI 18.1
[2022-08-08] MEDS: dilTIAZem 100 MG/100 ML 100 MG/100 ML BAG IV CONT (01:09)
[2022-08-08 05:17] LABS: Basophils Percent Auto 0.3 % (0.2-1.2); Eosinophils Absolute Auto 0.1 K/mm3 (0-0.3); Hematocrit 22.7 % (42.0-52.0); Hemoglobin 7.4 g/dL (14.0-18.0); Immature Granulocyte Absolute 0.02 K/mm3 (0.00-0.031); Immature Granulocyte Percent A 0.3 % (0-0.5); Immature Platelet Fraction Pct 2.6 % (0.9-11.2); Lymphocytes Absolute Auto 0.48 K/mm3 (0.9-3.2); Lymphocytes Percent Auto 8.1 % (18.3-44.2); Mean Corpuscular HGB Conc 32.6 g/dl (32-36); Mean Corpuscular Hemoglobin 32.5 pg (26-34); Mean Corpuscular Volume 99.6 fl (80-100); Mean Platelet Volume 10.3 fl (7.4-10.4); Monocytes Absolute Auto 0.6 K/mm3 (0.1-0.6); Monocytes Percent Auto 9.3 % (2.6-8.5); Neutrophils Absolute Auto 4.7 K/mm3 (1.3-6.7); Platelet Count Result 103 k/mm3 (150-375); Red Blood Count 2.28 M/mm3 (4.6-6.20); Red Cell Distribution Width 14.9 % (11.5-14.5); White Blood Count 5.9 K/mm3 (4.5-10.0)
[2022-08-08 05:22] LABS: Magnesium 1.8 mg/dL (1.6-2.3)
[2022-08-08] MEDS: SODIUM CHLORIDE 0.9% IV 1,000 ML 100 ML IV CONT ×2 (05:35→16:35)
[2022-08-08] MEDS: IRBESARTAN 150 MG TABLET PO (08:53)
[2022-08-08] MEDS: allopurinoL 100 MG TABLET PO (08:53)
[2022-08-08] MEDS: ATORVASTATIN 10 MG TABLET PO (08:53)
[2022-08-08] MEDS: ESCITALOPRAM OXALATE 10 MG TABLET 20 MG PO (08:53)
[2022-08-08] MEDS: METOPROLOL TARTRATE 12.5 MG TABLET PO ×2 (08:53→20:42)
[2022-08-08] MEDS: MULTIVITAMINS /C LUTEIN (CENTRUM SILVER) TABLET *BKC 1 TAB PO (08:53)
[2022-08-08] MEDS: cilostazoL 100 MG TABLET PO (08:53)
[2022-08-08] MEDS: OMEGA 3 POLYUNSAT FATTY ACIDS 1 GM CAP PO (08:53)
[2022-08-08] MEDS: ACIDOPHILUS/BULGARICUS CHEWABLE TABLET 1 TABLET PO (08:53)
[2022-08-08] MEDS: ASPIRIN 81 MG ENTERIC TABLET PO (08:54)
--- NOTE | 2022-08-08 10:48 | PM.IMPN ---
Progress Note: A&P Assessment and Plan (1) Atrial fibrillation with rapid ventricular response: Code(s): I48.91 - Unspecified atrial fibrillation Status: Acute Assessment and Plan: The patient presented to the ED in atrial fibrillation with rapid ventricular response. He was given a diltiazem bolus and has since been started on a diltiazem drip with improvement in his rate. He is not on long-term anticoagulation home due to history of GI bleeding related to his Crohn's disease. Continue metoprolol. taper off diltiazem gtt as tolerated and will switch to oral Cardizem tsh normal (2) Influenza A: Code(s): J10.1 - Influenza due to other identified influenza virus with other respiratory manifestations Status: Acute Assessment and Plan: Symptoms have been going on for at least 5 days thus I do not think Tamiflu would be very helpful. (3) Urinary tract infection: Code(s): N39.0 - Urinary tract infection, site not specified Status: Acute Assessment and Plan: Urinalysis is abnormal and he is being started on empiric ceftriaxone, pending urine culture. (4) Chronic kidney disease, stage 3: Code(s): N18.30 - Chronic kidney disease, stage 3 unspecified Status: Acute Assessment and Plan: Creatinine is a bit higher than what it typically runs, likely due to mild dehydration. Continue normal saline. Monitor strict I/O. (5) Crohn's disease: Code(s): K50.90 - Crohn's disease, unspecified, without complications Status: Acute Assessment and Plan: Currently in a study at [facility] as detailed in HPI. Study coronary are was contacted and they requested the patient be continued on this medication while in the hospital. (6) Hypertension: Code(s): I10 - Essential (primary) hypertension Status: Acute Assessment and Plan: Blood pressures were reviewed and they are stable. Antihypertensives will be reviewed and resumed as appropriate. (7) Chronic anemia: Code(s): D64.9 - Anemia, unspecified Status: Acute Assessment and Plan: CBC shows a macrocytic anemia and his B12, folate, and iron studies from February 2022 reviewed. Stable; monitor. (8) Dehydration: Code(s): E86.0 - Dehydration Status: Acute Assessment and Plan: He is be judiciously hydrated with close monitoring of volume status. Plan Non-anion gap medical metabolic acidosis: Due to his chronic diarrhea. Add Oral bicarb Subjective Date/time seen: 08/08/22 10:48 Interval history: HPI: This is a 77-year-old male with vascular dementia, hypertension, peripheral vascular disease, coronary artery disease, paroxysmal atrial fibrillation, peripheral vascular disease, chronic kidney disease, anemia, Crohn's disease, and other comorbidities who presented to the emergency department for evaluation of weakness. He is a fair historian and some of the following history is obtained from his Sarah who is at bedside, with the patient's permission. He has not been feeling well for 4 days with symptoms to include muscle aches, nonproductive cough, deep decreased appetite, and temperature to 102.7? Fahrenheit. He has been taking acetaminophen which helps for a period of time though his symptoms keep returning.? He has gotten increasingly weak and his brought him in today for evaluation. In the ED he was found to be positive for influenza A and his urine is also concerning for urinary tract infection. On arrival he was tachycardic and was noted to be in atrial fibrillation with rapid ventricular response for which he was started on a diltiazem drip with improvement in his rate. He is being admitted in this setting for further treatment. At the time my evaluation he reports feeling a bit better with IV fluids and better rate control of his heart. He has no known sick contacts and has not had similar symptoms. He denies h
[2022-08-08 11:39] LABS: Alanine Aminotransferase 38 U/L (6-50); Albumin Level 2.5 g/dL (3.5-5.1); Alkaline Phosphatase 74 U/L (38-126); Anion Gap 9 mmol/L (8-16); Aspartate Amino Transferase 31 U/L (17-59); Bilirubin,Total 0.7 mg/dL (0.2-1.3); Blood Urea Nitrogen 19 mg/dL (9-20); Calcium 6.9 mg/dL (8.4-10.2); Carbon Dioxide 15 mmol/L (22-30); Chloride 109 mmol/L (98-107); Estimated CRCL calculation 28 ml/min; Estimated Glomerular Filt Rate 39; Glucose 82 mg/dL (65-110); Potassium 3.1 mmol/L (3.4-5.0); Sodium 133 mmol/L (137-145)
[2022-08-08] MEDS: ALBUTEROL SULFATE NEB 2.5 MG/3 ML INH INHALATION ×2 (14:10→21:11)
[2022-08-08] MEDS: IPRATROPIUM BR 0.02% INH SOLN 0.5 MG/2.5 ML VIAL INHALATION ×2 (14:11→21:11)
[2022-08-08] MEDS: SODIUM BICARBONATE TAB 650 MG TABLET PO (16:36)
[2022-08-08] MEDS: POTASSIUM CHLORIDE 20 MEQ TABLET 40 MEQ PO (16:36)
[2022-08-08] MEDS: ACETAMINOPHEN 325 MG TABLET 650 MG PO (20:42)
[2022-08-09] VITALS (21 sets, daily range): BP systolic 95–135; BP diastolic 54–76; PULSE 89–124; RESP 16–24; TEMP 36.8–37.7; O2SAT 94–100
[2022-08-09] MEDS: SODIUM CHLORIDE 0.9% IV 1,000 ML 100 ML IV CONT ×2 (02:35→15:40)
[2022-08-09] MEDS: IPRATROPIUM BR 0.02% INH SOLN 0.5 MG/2.5 ML VIAL INHALATION ×4 (02:54→20:39)
[2022-08-09] MEDS: ALBUTEROL SULFATE NEB 2.5 MG/3 ML INH INHALATION ×4 (02:54→20:39)
[2022-08-09 06:30] LABS: Hemoglobin 8.6 g/dL (14.0-18.0); Mean Corpuscular HGB Conc 33.1 g/dl (32-36); Mean Corpuscular Hemoglobin 32.7 pg (26-34); Mean Corpuscular Volume 98.9 fl (80-100); Mean Platelet Volume 10.4 fl (7.4-10.4); Platelet Count Result 122 k/mm3 (150-375); Red Blood Count 2.63 M/mm3 (4.6-6.20); Red Cell Distribution Width 14.9 % (11.5-14.5); White Blood Count 7.3 K/mm3 (4.5-10.0)
[2022-08-09 08:06] LABS: Alanine Aminotransferase 40 U/L (6-50); Albumin Level 2.8 g/dL (3.5-5.1); Alkaline Phosphatase 88 U/L (38-126); Anion Gap 12 mmol/L (8-16); Aspartate Amino Transferase 32 U/L (17-59); Bilirubin,Total 0.7 mg/dL (0.2-1.3); Blood Urea Nitrogen 15 mg/dL (9-20); Calcium 7.1 mg/dL (8.4-10.2); Carbon Dioxide 14 mmol/L (22-30); Chloride 112 mmol/L (98-107); Estimated CRCL calculation 30 ml/min; Estimated Glomerular Filt Rate 39; Glucose 97 mg/dL (65-110); Magnesium 1.8 mg/dL (1.6-2.3); Potassium 3.4 mmol/L (3.4-5.0); Sodium 138 mmol/L (137-145)
[2022-08-09] MEDS: MULTIVITAMINS /C LUTEIN (CENTRUM SILVER) TABLET *BKC 1 TAB PO (08:36)
[2022-08-09] MEDS: SODIUM BICARBONATE TAB 650 MG TABLET PO ×2 (08:36→16:09)
[2022-08-09] MEDS: OMEGA 3 POLYUNSAT FATTY ACIDS 1 GM CAP PO (08:36)
[2022-08-09] MEDS: METOPROLOL TARTRATE 12.5 MG TABLET PO ×2 (08:36→21:51)
[2022-08-09] MEDS: ACIDOPHILUS/BULGARICUS CHEWABLE TABLET 1 TABLET PO (08:37)
[2022-08-09] MEDS: ESCITALOPRAM OXALATE 10 MG TABLET 20 MG PO (08:37)
[2022-08-09] MEDS: ATORVASTATIN 10 MG TABLET PO (08:37)
[2022-08-09] MEDS: allopurinoL 100 MG TABLET PO (08:37)
[2022-08-09] MEDS: cilostazoL 100 MG TABLET PO (08:37)
[2022-08-09] MEDS: ASPIRIN 81 MG ENTERIC TABLET PO (08:38)
[2022-08-09] MEDS: dilTIAZem HCL CD 180 MG CAP.ER.24H PO (09:04)
[2022-08-09] MEDS: POTASSIUM CHLORIDE 20 MEQ TABLET 40 MEQ PO (09:04)
[2022-08-09 09:36] LABS: Band Neutrophils Percent 6 % (0-6); Crenated RBC 2+ (NORMAL); Eosinophils Absolute Manual 0.07 K/mm3 (0.02-0.5); Eosinophils Percent Manual 1 % (0-4); Lymphocytes Absolute Manual 0.07 K/mm3 (1.1-4.5); Monocytes Absolute Manual 0.21 K/mm3 (0.1-0.90); Monocytes Percent Manual 3 % (3-9); Neutrophils Absolute Manual 6.93 K/mm3 (1.3-6.7); Neutrophils Percent Manual 89 % (46-73); Platelet Estimate Adequate (Adequate); Total Cells Counted 100
[2022-08-09 09:37] LABS: Hypochromasia 1+ (NORMAL); Ovalocytes 1+ (NORMAL); Schistocytes 1+ (NORMAL)
--- NOTE | 2022-08-09 16:58 | PM.IMPN ---
Progress Note: A&P Assessment and Plan (1) Atrial fibrillation with rapid ventricular response: Code(s): I48.91 - Unspecified atrial fibrillation Status: Acute Assessment and Plan: The patient presented to the ED in atrial fibrillation with rapid ventricular response. He was given a diltiazem bolus and has since been started on a diltiazem drip with improvement in his rate. He is not on long-term anticoagulation home due to history of GI bleeding related to his Crohn's disease. Continue metoprolol. taper off diltiazem gtt as tolerated and will switch to oral Cardizem. heart rate not controlled.w ill icnrease cardizem to 180 mg daily tsh normal (2) Influenza A: Code(s): J10.1 - Influenza due to other identified influenza virus with other respiratory manifestations Status: Acute Assessment and Plan: Symptoms have been going on for at least 5 days thus I do not think Tamiflu would be very helpful. (3) Urinary tract infection: Code(s): N39.0 - Urinary tract infection, site not specified Status: Acute Assessment and Plan: Urinalysis is abnormal and he is being started on empiric ceftriaxone, p urine culture with CONS, not saprophyticus. switch to iv vancomycin. stop ceftriaxone. 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 Continue normal saline. Monitor strict I/O. (5) Crohn's disease: Code(s): K50.90 - Crohn's disease, unspecified, without complications Status: Acute Assessment and Plan: Currently in a study at [facility] as detailed in HPI. Study coronary are was contacted and they requested the patient be continued on this medication while in the hospital. (6) Hypertension: Code(s): I10 - Essential (primary) hypertension Status: Acute Assessment and Plan: Blood pressures were reviewed and they are stable. Antihypertensives will be reviewed and resumed as appropriate. (7) Chronic anemia: Code(s): D64.9 - Anemia, unspecified Status: Acute Assessment and Plan: CBC shows a macrocytic anemia and his B12, folate, and iron studies from February 2022 reviewed. Stable; monitor. (8) Dehydration: Code(s): E86.0 - Dehydration Status: Acute Assessment and Plan: He is be judiciously hydrated with close monitoring of volume status. Plan Non-anion gap medical metabolic acidosis: Due to his chronic diarrhea. Add Oral bicarb Subjective Date/time seen: 08/09/22 16:58 Interval history: HPI: This is a 77-year-old male with vascular dementia, hypertension, peripheral vascular disease, coronary artery disease, paroxysmal atrial fibrillation, peripheral vascular disease, chronic kidney disease, anemia, Crohn's disease, and other comorbidities who presented to the emergency department for evaluation of weakness. He is a fair historian and some of the following history is obtained from his Sarah who is at bedside, with the patient's permission. He has not been feeling well for 4 days with symptoms to include muscle aches, nonproductive cough, deep decreased appetite, and temperature to 102.7? Fahrenheit. He has been taking acetaminophen which helps for a period of time though his symptoms keep returning.? He has gotten increasingly weak and his brought him in today for evaluation. In the ED he was found to be positive for influenza A and his urine is also concerning for urinary tract infection. On arrival he was tachycardic and was noted to be in atrial fibrillation with rapid ventricular response for which he was started on a diltiazem drip with improvement in his rate. He is being admitted in this setting for further treatment. At the t
[2022-08-10] VITALS (28 sets, daily range): BP systolic 99–130; BP diastolic 55–78; PULSE 84–125; RESP 18–20; TEMP 36.4–37.2; O2SAT 94–99
[2022-08-10] MEDS: SODIUM CHLORIDE 0.9% IV 1,000 ML 100 ML IV CONT (00:43)
[2022-08-10] MEDS: ALBUTEROL SULFATE NEB 2.5 MG/3 ML INH INHALATION ×4 (02:22→20:42)
[2022-08-10] MEDS: IPRATROPIUM BR 0.02% INH SOLN 0.5 MG/2.5 ML VIAL INHALATION ×4 (02:22→20:42)
[2022-08-10 04:43] LABS: Basophils Percent Auto 0.3 % (0.2-1.2); Eosinophils Percent Auto 0.3 % (0-4.4); Hematocrit 23.5 % (42.0-52.0); Hemoglobin 7.7 g/dL (14.0-18.0); Immature Granulocyte Absolute 0.04 K/mm3 (0.00-0.031); Immature Granulocyte Percent A 0.6 % (0-0.5); Lymphocytes Percent Auto 6.4 % (18.3-44.2); Mean Corpuscular HGB Conc 32.8 g/dl (32-36); Mean Corpuscular Hemoglobin 33.5 pg (26-34); Mean Corpuscular Volume 102.2 fl (80-100); Monocytes Absolute Auto 0.6 K/mm3 (0.1-0.6); Monocytes Percent Auto 9.4 % (2.6-8.5); Neutrophils Absolute Auto 5.2 K/mm3 (1.3-6.7); Nucleated Red Blood Cells Perc 0.3 % (0.0-0.2); Platelet Count Result 128 k/mm3 (150-375); White Blood Count 6.3 K/mm3 (4.5-10.0)
[2022-08-10 04:54] LABS: Alanine Aminotransferase 42 U/L (6-50); Albumin Level 2.6 g/dL (3.5-5.1); Alkaline Phosphatase 73 U/L (38-126); Anion Gap 7 mmol/L (8-16); Aspartate Amino Transferase 38 U/L (17-59); Bilirubin,Total 0.7 mg/dL (0.2-1.3); Blood Urea Nitrogen 15 mg/dL (9-20); Calcium 6.7 mg/dL (8.4-10.2); Carbon Dioxide 14 mmol/L (22-30); Chloride 113 mmol/L (98-107); Estimated CRCL calculation 32 ml/min; Estimated Glomerular Filt Rate 42; Glucose 110 mg/dL (65-110); Magnesium 1.8 mg/dL (1.6-2.3); Potassium 3.2 mmol/L (3.4-5.0); Sodium 134 mmol/L (137-145)
--- NOTE | 2022-08-10 08:21 | PCOTNOTE ---
Attempted OT evaluation, patient declined at this time reporting eating right now.
[2022-08-10] MEDS: OMEGA 3 POLYUNSAT FATTY ACIDS 1 GM CAP PO (09:08)
[2022-08-10] MEDS: MULTIVITAMINS /C LUTEIN (CENTRUM SILVER) TABLET *BKC 1 TAB PO (09:08)
[2022-08-10] MEDS: SODIUM BICARBONATE TAB 650 MG TABLET PO ×3 (09:08→17:03)
[2022-08-10] MEDS: METOPROLOL TARTRATE 12.5 MG TABLET PO ×2 (09:08→21:00)
[2022-08-10] MEDS: ESCITALOPRAM OXALATE 10 MG TABLET 20 MG PO (09:09)
[2022-08-10] MEDS: cilostazoL 100 MG TABLET PO (09:09)
[2022-08-10] MEDS: dilTIAZem HCL CD 180 MG CAP.ER.24H PO (09:09)
[2022-08-10] MEDS: ATORVASTATIN 10 MG TABLET PO (09:09)
[2022-08-10] MEDS: POTASSIUM CHLORIDE 20 MEQ TABLET 40 MEQ PO (09:09)
[2022-08-10] MEDS: ACIDOPHILUS/BULGARICUS CHEWABLE TABLET 1 TABLET PO (09:09)
[2022-08-10] MEDS: ASPIRIN 81 MG ENTERIC TABLET PO (09:09)
[2022-08-10] MEDS: allopurinoL 100 MG TABLET PO (09:09)
--- NOTE | 2022-08-10 13:38 | PM.IMPN ---
Progress Note: A&P Assessment and Plan (1) Atrial fibrillation with rapid ventricular response: Code(s): I48.91 - Unspecified atrial fibrillation Status: Acute Assessment and Plan: The patient presented to the ED in atrial fibrillation with rapid ventricular response. He was given a diltiazem bolus and has since been started on a diltiazem drip with improvement in his rate. He is not on long-term anticoagulation home due to history of GI bleeding related to his Crohn's disease. Continue metoprolol. taper off diltiazem gtt as tolerated and will switch to oral Cardizem. increasedcardizem to 180 mg daily heart rate much controlled now tsh normal (2) Influenza A: Code(s): J10.1 - Influenza due to other identified influenza virus with other respiratory manifestations Status: Acute Assessment and Plan: Symptoms have been going on for at least 5 days thus I do not think Tamiflu would be very helpful. (3) Urinary tract infection: Code(s): N39.0 - Urinary tract infection, site not specified Status: Acute Assessment and Plan: Urinalysis is abnormal and he is being started on empiric ceftriaxone, p urine culture with CONS, not saprophyticus. switch to iv vancomycin. stop ceftriaxone. 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 Continue normal saline. Monitor strict I/O. (5) Crohn's disease: Code(s): K50.90 - Crohn's disease, unspecified, without complications Status: Acute Assessment and Plan: Currently in a study at [facility] as detailed in HPI. Study coronary are was contacted and they requested the patient be continued on this medication while in the hospital. (6) Hypertension: Code(s): I10 - Essential (primary) hypertension Status: Acute Assessment and Plan: Blood pressures were reviewed and they are stable. Antihypertensives will be reviewed and resumed as appropriate. (7) Chronic anemia: Code(s): D64.9 - Anemia, unspecified Status: Acute Assessment and Plan: CBC shows a macrocytic anemia and his B12, folate, and iron studies from February 2022 reviewed. Stable; monitor. (8) Dehydration: Code(s): E86.0 - Dehydration Status: Acute Assessment and Plan: He is be judiciously hydrated with close monitoring of volume status. Will stop IV fluid Plan Non-anion gap medical metabolic acidosis: Due to his chronic diarrhea. Add Oral bicarb increased bicarb to 3 times a day PT OT to see today for disposition Subjective Date/time seen: 08/10/22 13:38 Interval history: HPI: This is a 77-year-old male with vascular dementia, hypertension, peripheral vascular disease, coronary artery disease, paroxysmal atrial fibrillation, peripheral vascular disease, chronic kidney disease, anemia, Crohn's disease, and other comorbidities who presented to the emergency department for evaluation of weakness. He is a fair historian and some of the following history is obtained from his Sarah who is at bedside, with the patient's permission. He has not been feeling well for 4 days with symptoms to include muscle aches, nonproductive cough, deep decreased appetite, and temperature to 102.7? Fahrenheit. He has been taking acetaminophen which helps for a period of time though his symptoms keep returning.? He has gotten increasingly weak and his brought him in today for evaluation. In the ED he was found to be positive for influenza A and his urine is also concerning for urinary tract infection. On arrival he was tachycardic and was noted to be in atrial fibrillation with rapid ventricular response for which he was started on a diltiazem drip with im
--- NOTE | 2022-08-10 21:13 | PC.NURSE ---
Spoke with Pt's , Sarah and updated her that we are out of the Pt's home med supply of his clinical trial medication. Sarah states that is fine, he is done with that box. She has already contacted the clinical trial coordinator and they have been unable to go back to the provider to receive more medication.
[2022-08-11] VITALS (20 sets, daily range): BP systolic 94–131; BP diastolic 52–71; PULSE 84–122; RESP 12–30; TEMP 36.6–38.3; O2SAT 94–100
[2022-08-11 04:25] LABS: Basophils Percent Auto 0.4 % (0.2-1.2); Eosinophils Absolute Auto 0.2 K/mm3 (0-0.3); Eosinophils Percent Auto 2.2 % (0-4.4); Hematocrit 23.4 % (42.0-52.0); Hemoglobin 7.6 g/dL (14.0-18.0); Immature Granulocyte Absolute 0.06 K/mm3 (0.00-0.031); Immature Granulocyte Percent A 0.8 % (0-0.5); Lymphocytes Absolute Auto 0.65 K/mm3 (0.9-3.2); Lymphocytes Percent Auto 8.2 % (18.3-44.2); Mean Corpuscular HGB Conc 32.5 g/dl (32-36); Mean Corpuscular Hemoglobin 32.9 pg (26-34); Mean Corpuscular Volume 101.3 fl (80-100); Mean Platelet Volume 9.9 fl (7.4-10.4); Monocytes Absolute Auto 0.7 K/mm3 (0.1-0.6); Monocytes Percent Auto 8.2 % (2.6-8.5); Neutrophils Absolute Auto 6.3 K/mm3 (1.3-6.7); Neutrophils Percent Auto 80.2 % (45.5-73.1); Platelet Count Result 136 k/mm3 (150-375); Red Blood Count 2.31 M/mm3 (4.6-6.20); Red Cell Distribution Width 15.1 % (11.5-14.5); White Blood Count 7.9 K/mm3 (4.5-10.0)
[2022-08-11 04:47] LABS: Alanine Aminotransferase 43 U/L (6-50); Albumin Level 2.5 g/dL (3.5-5.1); Alkaline Phosphatase 78 U/L (38-126); Anion Gap 4 mmol/L (8-16); Aspartate Amino Transferase 43 U/L (17-59); Bilirubin,Total 0.7 mg/dL (0.2-1.3); Blood Urea Nitrogen 16 mg/dL (9-20); Calcium 7.1 mg/dL (8.4-10.2); Carbon Dioxide 17 mmol/L (22-30); Chloride 114 mmol/L (98-107); Estimated CRCL calculation 30 ml/min; Estimated Glomerular Filt Rate 39; Glucose 96 mg/dL (65-110); Magnesium 1.8 mg/dL (1.6-2.3); Potassium 3.5 mmol/L (3.4-5.0); Sodium 135 mmol/L (137-145)
[2022-08-11] MEDS: OMEGA 3 POLYUNSAT FATTY ACIDS 1 GM CAP PO (08:31)
[2022-08-11] MEDS: SODIUM BICARBONATE TAB 650 MG TABLET PO ×3 (08:31→16:37)
[2022-08-11] MEDS: ALBUTEROL SULFATE NEB 2.5 MG/3 ML INH INHALATION ×2 (08:32→14:50)
[2022-08-11] MEDS: cilostazoL 100 MG TABLET PO (08:32)
[2022-08-11] MEDS: ATORVASTATIN 10 MG TABLET PO (08:32)
[2022-08-11] MEDS: allopurinoL 100 MG TABLET PO (08:32)
[2022-08-11] MEDS: IPRATROPIUM BR 0.02% INH SOLN 0.5 MG/2.5 ML VIAL INHALATION ×2 (08:32→14:50)
[2022-08-11] MEDS: METOPROLOL TARTRATE 12.5 MG TABLET PO ×2 (08:32→21:40)
[2022-08-11] MEDS: dilTIAZem HCL CD 180 MG CAP.ER.24H PO (08:32)
[2022-08-11] MEDS: ACIDOPHILUS/BULGARICUS CHEWABLE TABLET 1 TABLET PO (08:32)
[2022-08-11] MEDS: ESCITALOPRAM OXALATE 10 MG TABLET 20 MG PO (08:32)
[2022-08-11] MEDS: MULTIVITAMINS /C LUTEIN (CENTRUM SILVER) TABLET *BKC 1 TAB PO (09:46)
[2022-08-11] MEDS: ASPIRIN 81 MG ENTERIC TABLET PO (09:46)
--- NOTE | 2022-08-11 13:20 | PM.IMPN ---
Progress Note: A&P Assessment and Plan (1) Atrial fibrillation with rapid ventricular response: Code(s): I48.91 - Unspecified atrial fibrillation Status: Acute Assessment and Plan: The patient presented to the ED in atrial fibrillation with rapid ventricular response. He was given a diltiazem bolus and has since been started on a diltiazem drip with improvement in his rate. He is not on long-term anticoagulation home due to history of GI bleeding related to his Crohn's disease. Continue metoprolol. taper off diltiazem gtt as tolerated and will switch to oral Cardizem. increasedcardizem to 180 mg daily heart rate much controlled now tsh normal (2) Influenza A: Code(s): J10.1 - Influenza due to other identified influenza virus with other respiratory manifestations Status: Acute Assessment and Plan: Symptoms have been going on for at least 5 days thus I do not think Tamiflu would be very helpful. (3) Urinary tract infection: Code(s): N39.0 - Urinary tract infection, site not specified Status: Acute Assessment and Plan: Urinalysis is abnormal and he is being started on empiric ceftriaxone, p urine culture with CONS, not saprophyticus. switch to iv vancomycin. stop ceftriaxone. 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 Continue normal saline. Monitor strict I/O. (5) Crohn's disease: Code(s): K50.90 - Crohn's disease, unspecified, without complications Status: Acute Assessment and Plan: Currently in a study at [facility] as detailed in HPI. Study coronary are was contacted and they requested the patient be continued on this medication while in the hospital. (6) Hypertension: Code(s): I10 - Essential (primary) hypertension Status: Acute Assessment and Plan: Blood pressures were reviewed and they are stable. Antihypertensives will be reviewed and resumed as appropriate. (7) Chronic anemia: Code(s): D64.9 - Anemia, unspecified Status: Acute Assessment and Plan: CBC shows a macrocytic anemia and his B12, folate, and iron studies from February 2022 reviewed. Stable; monitor. (8) Dehydration: Code(s): E86.0 - Dehydration Status: Acute Assessment and Plan: He is be judiciously hydrated with close monitoring of volume status. Will stop IV fluid Plan Non-anion gap medical metabolic acidosis: Due to his chronic diarrhea. Add Oral bicarb increased bicarb to 3 times a day Dispotion: PT OT TO SEE Encephalopathy: likely delirium. michelle has underlying dementia. Subjective Date/time seen: 08/11/22 13:20 Interval history: HPI: This is a 77-year-old male with vascular dementia, hypertension, peripheral vascular disease, coronary artery disease, paroxysmal atrial fibrillation, peripheral vascular disease, chronic kidney disease, anemia, Crohn's disease, and other comorbidities who presented to the emergency department for evaluation of weakness. He is a fair historian and some of the following history is obtained from his Sarah who is at bedside, with the patient's permission. He has not been feeling well for 4 days with symptoms to include muscle aches, nonproductive cough, deep decreased appetite, and temperature to 102.7? Fahrenheit. He has been taking acetaminophen which helps for a period of time though his symptoms keep returning.? He has gotten increasingly weak and his brought him in today for evaluation. In the ED he was found to be positive for influenza A and his urine is also concerning for urinary tract infection. On arrival he was tachycardic and was noted to be in atrial fibrillation with rapid ventricular respon
[2022-08-11] MEDS: prednisoLONE ACETATE 1% OPHTH 5 ML 1 DROP LEFT EYE (13:33)
--- NOTE | 2022-08-11 13:39 | PC.NURSE ---
This patient, Vitaly Oreilly, was transferred to [facility] on 08/11/22 at 1335. Personal belongings sent with patient. Report given to Brea ESPINAL. Appropriate documentation sent with patient.
[2022-08-11] MEDS: ACETAMINOPHEN 325 MG TABLET 650 MG PO (21:41)
[2022-08-12] VITALS (17 sets, daily range): BP systolic 98–113; BP diastolic 56–61; PULSE 67–106; RESP 18–20; TEMP 36.2–37.2; O2SAT 91–99
[2022-08-12] MEDS: ALBUTEROL SULFATE NEB 2.5 MG/3 ML INH INHALATION ×4 (02:44→20:52)
[2022-08-12] MEDS: IPRATROPIUM BR 0.02% INH SOLN 0.5 MG/2.5 ML VIAL INHALATION ×4 (02:44→20:52)
[2022-08-12 08:12] LABS: Basophils Percent Auto 0.2 % (0.2-1.2); Eosinophils Percent Auto 0.1 % (0-4.4); Hemoglobin 7.9 g/dL (14.0-18.0); Immature Granulocyte Absolute 0.15 K/mm3 (0.00-0.031); Immature Granulocyte Percent A 0.7 % (0-0.5); Lymphocytes Absolute Auto 0.82 K/mm3 (0.9-3.2); Lymphocytes Percent Auto 3.8 % (18.3-44.2); Mean Corpuscular HGB Conc 32.9 g/dl (32-36); Mean Corpuscular Hemoglobin 32.1 pg (26-34); Mean Corpuscular Volume 97.6 fl (80-100); Mean Platelet Volume 9.8 fl (7.4-10.4); Monocytes Absolute Auto 0.8 K/mm3 (0.1-0.6); Monocytes Percent Auto 3.6 % (2.6-8.5); Neutrophils Absolute Auto 19.9 K/mm3 (1.3-6.7); Neutrophils Percent Auto 91.6 % (45.5-73.1); Platelet Count Result 165 k/mm3 (150-375); Red Blood Count 2.46 M/mm3 (4.6-6.20); Red Cell Distribution Width 15.3 % (11.5-14.5); White Blood Count 21.7 K/mm3 (4.5-10.0)
[2022-08-12 08:23] LABS: Alanine Aminotransferase 37 U/L (6-50); Albumin Level 2.4 g/dL (3.5-5.1); Alkaline Phosphatase 72 U/L (38-126); Anion Gap 4 mmol/L (8-16); Aspartate Amino Transferase 36 U/L (17-59); Bilirubin,Total 0.7 mg/dL (0.2-1.3); Blood Urea Nitrogen 14 mg/dL (9-20); Calcium 6.9 mg/dL (8.4-10.2); Carbon Dioxide 17 mmol/L (22-30); Chloride 116 mmol/L (98-107); Estimated CRCL calculation 28 ml/min; Estimated Glomerular Filt Rate 37; Glucose 91 mg/dL (65-110); Magnesium 1.8 mg/dL (1.6-2.3); Potassium 2.9 mmol/L (3.4-5.0); Sodium 137 mmol/L (137-145)
[2022-08-12 08:45] LABS: Crenated RBC 2+ (NORMAL); Ovalocytes 1+ (NORMAL); Platelet Estimate Adequate (Adequate); Schistocytes None Seen (NORMAL)
[2022-08-12 09:02] LABS: Vancomycin Trough < 5.0 ug/mL (10.0-20.0)
[2022-08-12] MEDS: OMEGA 3 POLYUNSAT FATTY ACIDS 1 GM CAP PO (09:36)
[2022-08-12] MEDS: cilostazoL 100 MG TABLET PO (09:36)
[2022-08-12] MEDS: ESCITALOPRAM OXALATE 10 MG TABLET 20 MG PO (09:36)
[2022-08-12] MEDS: allopurinoL 100 MG TABLET PO (09:36)
[2022-08-12] MEDS: SODIUM BICARBONATE TAB 650 MG TABLET PO ×3 (09:36→17:40)
[2022-08-12] MEDS: dilTIAZem HCL CD 180 MG CAP.ER.24H PO (09:36)
[2022-08-12] MEDS: ACIDOPHILUS/BULGARICUS CHEWABLE TABLET 1 TABLET PO (09:37)
[2022-08-12] MEDS: METOPROLOL TARTRATE 12.5 MG TABLET PO ×2 (09:37→20:10)
[2022-08-12] MEDS: ATORVASTATIN 10 MG TABLET PO (09:37)
[2022-08-12] MEDS: MULTIVITAMINS /C LUTEIN (CENTRUM SILVER) TABLET *BKC 1 TAB PO (09:37)
[2022-08-12] MEDS: prednisoLONE ACETATE 1% OPHTH 5 ML 1 DROP LEFT EYE ×3 (09:38→17:40)
[2022-08-12] MEDS: ASPIRIN 81 MG ENTERIC TABLET PO (11:25)
--- NOTE | 2022-08-12 12:18 | PM.IMPN ---
Progress Note: A&P Assessment and Plan (1) Atrial fibrillation with rapid ventricular response: Code(s): I48.91 - Unspecified atrial fibrillation Status: Acute Assessment and Plan: The patient presented to the ED in atrial fibrillation with rapid ventricular response. He was given a diltiazem bolus and has since been started on a diltiazem drip with improvement in his rate. He is not on long-term anticoagulation home due to history of GI bleeding related to his Crohn's disease. Continue metoprolol. taper off diltiazem gtt as tolerated and will switch to oral Cardizem. increasedcardizem to 180 mg daily heart rate much controlled now tsh normal (2) Influenza A: Code(s): J10.1 - Influenza due to other identified influenza virus with other respiratory manifestations Status: Acute Assessment and Plan: Symptoms have been going on for at least 5 days thus I do not think Tamiflu would be very helpful. (3) Urinary tract infection: Code(s): N39.0 - Urinary tract infection, site not specified Status: Acute Assessment and Plan: Urinalysis is abnormal and he is being started on empiric ceftriaxone, p urine culture with CONS, not saprophyticus. switch to iv vancomycin. stop ceftriaxone. 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 Continue normal saline. Monitor strict I/O. (5) Crohn's disease: Code(s): K50.90 - Crohn's disease, unspecified, without complications Status: Acute Assessment and Plan: Currently in a study at [facility] as detailed in HPI. Study coronary are was contacted and they requested the patient be continued on this medication while in the hospital. (6) Hypertension: Code(s): I10 - Essential (primary) hypertension Status: Acute Assessment and Plan: Blood pressures were reviewed and they are stable. Antihypertensives will be reviewed and resumed as appropriate. (7) Chronic anemia: Code(s): D64.9 - Anemia, unspecified Status: Acute Assessment and Plan: CBC shows a macrocytic anemia and his B12, folate, and iron studies from February 2022 reviewed. Stable; monitor. (8) Dehydration: Code(s): E86.0 - Dehydration Status: Acute Assessment and Plan: He is be judiciously hydrated with close monitoring of volume status. Will stop IV fluid Plan leukocytosis: Drastically worsened with another spike a fever. Panculture today. chest x-ray with subtle opacities basal area. On vancomycin. Respiratory status is unchanged. Will recheck urine and get urine culture. His remained on vancomycin which will be continued. No diarrhea noted. Non-anion gap medical metabolic acidosis: Due to his chronic diarrhea. Add Oral bicarb increased bicarb to 3 times a day Dispotion: PT OT TO SEE Encephalopathy: likely delirium. michelle has underlying dementia. Subjective Date/time seen: 08/12/22 12:18 Interval history: HPI: This is a 77-year-old male with vascular dementia, hypertension, peripheral vascular disease, coronary artery disease, paroxysmal atrial fibrillation, peripheral vascular disease, chronic kidney disease, anemia, Crohn's disease, and other comorbidities who presented to the emergency department for evaluation of weakness. He is a fair historian and some of the following history is obtained from his Sarah who is at bedside, with the patient's permission. He has not been feeling well for 4 days with symptoms to include muscle aches, nonproductive cough, deep decreased appetite, and temperature to 102.7? Fahrenheit. He has been taking acetaminophen which helps for a period of time though his symptoms keep returning.? H
[2022-08-12 18:45] LABS: Appearance Urine Cloudy (Clear); Bilirubin Urine Negative (Negative); Blood Urine 1+ (Negative); Color Urine Yellow (Yellow); Glucose Urine UA Negative (Negative); Ketones Urine Negative (Negative); Leukocyte Esterase Ur 1+ LEU/UL (Negative); Nitrate Urine Negative (Negative); Protein Urine 1+ mg/dL (Negative); Urobilinogen Urine 0.2 mg/dL (<2.0); pH Urine 5.5 (5.0-9.0)
[2022-08-12 18:59] LABS: Bacteria Urine Trace /hpf; Budding Yeast Urine Present /hpf; Mucus Urine Rare /lpf; RBC Urine >75 /hpf (0-2); Squamous Epithelial Cell Urine Few /hpf (Few); WBC Urine >75 /hpf
[2022-08-12 19:00] LABS: Add Urine Microscopic? YES
[2022-08-12] MEDS: POTASSIUM CHLORIDE 20 MEQ PACKET (FOR LIQUID) 40 MEQ PO (19:51)
[2022-08-13] VITALS (12 sets, daily range): BP systolic 106–133; BP diastolic 56–73; PULSE 68–120; RESP 16–20; TEMP 36.4–36.6; O2SAT 92–100
[2022-08-13] MEDS: IPRATROPIUM BR 0.02% INH SOLN 0.5 MG/2.5 ML VIAL INHALATION ×3 (02:33→21:20)
[2022-08-13] MEDS: ALBUTEROL SULFATE NEB 2.5 MG/3 ML INH INHALATION ×3 (02:33→21:20)
[2022-08-13 06:22] LABS: Basophils Percent Auto 0.2 % (0.2-1.2); Eosinophils Absolute Auto 0.1 K/mm3 (0-0.3); Eosinophils Percent Auto 0.7 % (0-4.4); Hematocrit 22.9 % (42.0-52.0); Hemoglobin 7.4 g/dL (14.0-18.0); Immature Granulocyte Absolute 0.09 K/mm3 (0.00-0.031); Immature Granulocyte Percent A 0.7 % (0-0.5); Lymphocytes Absolute Auto 0.56 K/mm3 (0.9-3.2); Lymphocytes Percent Auto 4.5 % (18.3-44.2); Mean Corpuscular HGB Conc 32.3 g/dl (32-36); Mean Corpuscular Hemoglobin 32.5 pg (26-34); Mean Corpuscular Volume 100.4 fl (80-100); Mean Platelet Volume 9.7 fl (7.4-10.4); Monocytes Absolute Auto 0.6 K/mm3 (0.1-0.6); Monocytes Percent Auto 4.8 % (2.6-8.5); Neutrophils Percent Auto 89.1 % (45.5-73.1); Platelet Count Result 159 k/mm3 (150-375); Red Blood Count 2.28 M/mm3 (4.6-6.20); Red Cell Distribution Width 15.9 % (11.5-14.5); White Blood Count 12.4 K/mm3 (4.5-10.0)
[2022-08-13 06:45] LABS: Alanine Aminotransferase 41 U/L (6-50); Albumin Level 2.4 g/dL (3.5-5.1); Alkaline Phosphatase 76 U/L (38-126); Anion Gap 5 mmol/L (8-16); Aspartate Amino Transferase 39 U/L (17-59); Bilirubin,Total 0.7 mg/dL (0.2-1.3); Blood Urea Nitrogen 14 mg/dL (9-20); Carbon Dioxide 19 mmol/L (22-30); Chloride 112 mmol/L (98-107); Estimated CRCL calculation 31 ml/min; Estimated Glomerular Filt Rate 42; Glucose 98 mg/dL (65-110); Magnesium 1.9 mg/dL (1.6-2.3); Potassium 3.2 mmol/L (3.4-5.0); Sodium 136 mmol/L (137-145)
[2022-08-13 06:55] LABS: Platelet Estimate Adequate (Adequate)
[2022-08-13 06:57] LABS: Crenated RBC 2+ (NORMAL); Poikilocytosis 1+ (NORMAL)
[2022-08-13] MEDS: METOPROLOL TARTRATE 12.5 MG TABLET PO ×2 (08:09→21:45)
[2022-08-13] MEDS: OMEGA 3 POLYUNSAT FATTY ACIDS 1 GM CAP PO (08:09)
[2022-08-13] MEDS: dilTIAZem HCL CD 180 MG CAP.ER.24H PO (08:09)
[2022-08-13] MEDS: ATORVASTATIN 10 MG TABLET PO (08:09)
[2022-08-13] MEDS: ACIDOPHILUS/BULGARICUS CHEWABLE TABLET 1 TABLET PO (08:09)
[2022-08-13] MEDS: MULTIVITAMINS /C LUTEIN (CENTRUM SILVER) TABLET *BKC 1 TAB PO (08:09)
[2022-08-13] MEDS: ESCITALOPRAM OXALATE 10 MG TABLET 20 MG PO (08:09)
[2022-08-13] MEDS: SODIUM BICARBONATE TAB 650 MG TABLET PO ×3 (08:09→16:43)
[2022-08-13] MEDS: cilostazoL 100 MG TABLET PO (08:09)
[2022-08-13] MEDS: allopurinoL 100 MG TABLET PO (08:09)
[2022-08-13] MEDS: ASPIRIN 81 MG ENTERIC TABLET PO (08:09)
[2022-08-13] MEDS: prednisoLONE ACETATE 1% OPHTH 5 ML 1 DROP LEFT EYE ×3 (08:10→16:43)
[2022-08-13] MEDS: POTASSIUM CHLORIDE 20 MEQ TABLET 40 MEQ PO (09:25)
--- NOTE | 2022-08-13 15:41 | PM.IMPN ---
Progress Note: A&P Assessment and Plan (1) Atrial fibrillation with rapid ventricular response: Code(s): I48.91 - Unspecified atrial fibrillation Status: Acute Assessment and Plan: The patient presented to the ED in atrial fibrillation with rapid ventricular response. He was given a diltiazem bolus and has since been started on a diltiazem drip with improvement in his rate. He is not on long-term anticoagulation home due to history of GI bleeding related to his Crohn's disease. Continue metoprolol. taper off diltiazem gtt as tolerated and will switch to oral Cardizem. increasedcardizem to 180 mg daily heart rate much controlled now tsh normal (2) Influenza A: Code(s): J10.1 - Influenza due to other identified influenza virus with other respiratory manifestations Status: Acute Assessment and Plan: Symptoms have been going on for at least 5 days thus I do not think Tamiflu would be very helpful. (3) Urinary tract infection: Code(s): N39.0 - Urinary tract infection, site not specified Status: Acute Assessment and Plan: Urinalysis is abnormal and he is being started on empiric ceftriaxone, p urine culture with CONS, not saprophyticus. switch to iv vancomycin. stop ceftriaxone. 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 Continue normal saline. Monitor strict I/O. (5) Crohn's disease: Code(s): K50.90 - Crohn's disease, unspecified, without complications Status: Acute Assessment and Plan: Currently in a study at [facility] as detailed in HPI. Study coronary are was contacted and they requested the patient be continued on this medication while in the hospital. (6) Hypertension: Code(s): I10 - Essential (primary) hypertension Status: Acute Assessment and Plan: Blood pressures were reviewed and they are stable. Antihypertensives will be reviewed and resumed as appropriate. (7) Chronic anemia: Code(s): D64.9 - Anemia, unspecified Status: Acute Assessment and Plan: CBC shows a macrocytic anemia and his B12, folate, and iron studies from February 2022 reviewed. Stable; monitor. (8) Dehydration: Code(s): E86.0 - Dehydration Status: Acute Assessment and Plan: He is be judiciously hydrated with close monitoring of volume status. Will stop IV fluid Plan leukocytosis: Drastically worsened with another spike a fever 08/11/2022 pancultured. Leukocytosis improved significantly without any change from [id number] today. Unclear etiology. On vancomycin IV. chest x-ray with subtle opacities basal area. Respiratory status is unchanged. Urine looks infected still. Will await urine culture to finalize. Recent urine culture was positive for coag-negative staph not saprophyticus. For which he has received IV vancomycin Non-anion gap medical metabolic acidosis: Due to his chronic diarrhea. Add Oral bicarb increased bicarb to 3 times a day Dispotion: PT OT TO SEE Encephalopathy: likely delirium. michelle has underlying dementia. Subjective Date/time seen: 08/13/22 15:41 Interval history: HPI: This is a 77-year-old male with vascular dementia, hypertension, peripheral vascular disease, coronary artery disease, paroxysmal atrial fibrillation, peripheral vascular disease, chronic kidney disease, anemia, Crohn's disease, and other comorbidities who presented to the emergency department for evaluation of weakness. He is a fair historian and some of the following history is obtained from his Sarah who is at bedside, with the patient's permission. He has not been feeling well for 4 days with symptoms to include muscle aches, nonproductiv
[2022-08-13] MEDS: ACETAMINOPHEN 325 MG TABLET 650 MG PO (22:03)
[2022-08-14] VITALS (16 sets, daily range): BP systolic 99–111; BP diastolic 56–78; PULSE 79–118; RESP 16–20; TEMP 36.2–36.9; O2SAT 98–100
[2022-08-14] MEDS: IPRATROPIUM BR 0.02% INH SOLN 0.5 MG/2.5 ML VIAL INHALATION ×4 (02:01→20:02)
[2022-08-14] MEDS: ALBUTEROL SULFATE NEB 2.5 MG/3 ML INH INHALATION ×4 (02:01→20:02)
[2022-08-14 07:24] LABS: Basophils Percent Auto 0.4 % (0.2-1.2); Eosinophils Absolute Auto 0.1 K/mm3 (0-0.3); Eosinophils Percent Auto 0.8 % (0-4.4); Hematocrit 26.2 % (42.0-52.0); Hemoglobin 8.6 g/dL (14.0-18.0); Immature Granulocyte Absolute 0.09 K/mm3 (0.00-0.031); Immature Granulocyte Percent A 0.8 % (0-0.5); Lymphocytes Absolute Auto 0.71 K/mm3 (0.9-3.2); Lymphocytes Percent Auto 6.4 % (18.3-44.2); Mean Corpuscular HGB Conc 32.8 g/dl (32-36); Mean Corpuscular Volume 97.4 fl (80-100); Mean Platelet Volume 9.5 fl (7.4-10.4); Monocytes Absolute Auto 0.6 K/mm3 (0.1-0.6); Monocytes Percent Auto 5.4 % (2.6-8.5); Neutrophils Absolute Auto 9.6 K/mm3 (1.3-6.7); Neutrophils Percent Auto 86.2 % (45.5-73.1); Platelet Count Result 214 k/mm3 (150-375); Red Blood Count 2.69 M/mm3 (4.6-6.20); Red Cell Distribution Width 15.8 % (11.5-14.5); White Blood Count 11.1 K/mm3 (4.5-10.0)
[2022-08-14 07:40] LABS: Alanine Aminotransferase 45 U/L (6-50); Albumin Level 2.7 g/dL (3.5-5.1); Alkaline Phosphatase 93 U/L (38-126); Anion Gap 6 mmol/L (8-16); Aspartate Amino Transferase 37 U/L (17-59); Bilirubin,Total 0.9 mg/dL (0.2-1.3); Blood Urea Nitrogen 12 mg/dL (9-20); Calcium 7.1 mg/dL (8.4-10.2); Carbon Dioxide 19 mmol/L (22-30); Chloride 114 mmol/L (98-107); Estimated CRCL calculation 33 ml/min; Estimated Glomerular Filt Rate 46; Glucose 94 mg/dL (65-110); Magnesium 1.9 mg/dL (1.6-2.3); Potassium 3.2 mmol/L (3.4-5.0); Sodium 139 mmol/L (137-145)
[2022-08-14] MEDS: dilTIAZem HCL CD 180 MG CAP.ER.24H PO (09:05)
[2022-08-14] MEDS: ASPIRIN 81 MG ENTERIC TABLET PO (09:05)
[2022-08-14] MEDS: ACIDOPHILUS/BULGARICUS CHEWABLE TABLET 1 TABLET PO (09:05)
[2022-08-14] MEDS: ATORVASTATIN 10 MG TABLET PO (09:05)
[2022-08-14] MEDS: prednisoLONE ACETATE 1% OPHTH 5 ML 1 DROP LEFT EYE ×3 (09:05→17:31)
[2022-08-14] MEDS: SODIUM BICARBONATE TAB 650 MG TABLET PO ×3 (09:05→17:31)
[2022-08-14] MEDS: METOPROLOL TARTRATE 12.5 MG TABLET PO ×2 (09:06→20:24)
[2022-08-14] MEDS: ESCITALOPRAM OXALATE 10 MG TABLET 20 MG PO (09:06)
[2022-08-14] MEDS: OMEGA 3 POLYUNSAT FATTY ACIDS 1 GM CAP PO (09:06)
[2022-08-14] MEDS: allopurinoL 100 MG TABLET PO (09:06)
[2022-08-14] MEDS: cilostazoL 100 MG TABLET PO (09:06)
--- NOTE | 2022-08-14 09:31 | PCNFU ---
Nutrition Follow-Up Complete: Suboptimal po intake related to reduced appetite as evidenced by charted intake, noted low BMI. Goal: PO intake 75% of meals and supplements Patient is meeting goal. No new goal. Pt current nutrition is heart healthy with Ensure compact BID. Last recorded weight is 61 kg, up from 59.2 kg on admit. Bowel Motility:+Bm reported 08/14 Labs Reviewed:Cr 1.5,GFR 46,K 3.2 Meds Noted:Lopressor, Lexapro,Lipitor, MVI, fish oil, Atrovent. Skin: WNL Additional Notes: Patient remains on a heart healthy diet. Oral Intake 80-100% of meals. Patient states to tolerating diet. Agree with diet orders. Monitor intake, wt, labs. Follow up in 7 days.
[2022-08-14] MEDS: MULTIVITAMINS /C LUTEIN (CENTRUM SILVER) TABLET *BKC 1 TAB PO (11:56)
[2022-08-14] MEDS: POTASSIUM CHLORIDE 20 MEQ TABLET 40 MEQ PO (11:56)
[2022-08-14 15:38] LABS: Vancomycin Trough 14.5 ug/mL (10.0-20.0)
--- NOTE | 2022-08-14 18:00 | PM.IMPN ---
Progress Note: A&P Assessment and Plan (1) Atrial fibrillation with rapid ventricular response: Code(s): I48.91 - Unspecified atrial fibrillation Status: Acute Assessment and Plan: The patient presented to the ED in atrial fibrillation with rapid ventricular response. He was given a diltiazem bolus and has since been started on a diltiazem drip with improvement in his rate. He is not on long-term anticoagulation home due to history of GI bleeding related to his Crohn's disease. Continue metoprolol. taper off diltiazem gtt as tolerated and will switch to oral Cardizem. increasedcardizem to 180 mg daily heart rate much controlled now tsh normal (2) Influenza A: Code(s): J10.1 - Influenza due to other identified influenza virus with other respiratory manifestations Status: Acute Assessment and Plan: Symptoms have been going on for at least 5 days thus I do not think Tamiflu would be very helpful. (3) Urinary tract infection: Code(s): N39.0 - Urinary tract infection, site not specified Status: Acute Assessment and Plan: Urinalysis is abnormal and he is being started on empiric ceftriaxone, p urine culture with CONS, not saprophyticus. switch to iv vancomycin. stop ceftriaxone. 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 Continue normal saline. Monitor strict I/O. (5) Crohn's disease: Code(s): K50.90 - Crohn's disease, unspecified, without complications Status: Acute Assessment and Plan: Currently in a study at [facility] as detailed in HPI. Study coronary are was contacted and they requested the patient be continued on this medication while in the hospital. (6) Hypertension: Code(s): I10 - Essential (primary) hypertension Status: Acute Assessment and Plan: Blood pressures were reviewed and they are stable. Antihypertensives will be reviewed and resumed as appropriate. (7) Chronic anemia: Code(s): D64.9 - Anemia, unspecified Status: Acute Assessment and Plan: CBC shows a macrocytic anemia and his B12, folate, and iron studies from February 2022 reviewed. Stable; monitor. (8) Dehydration: Code(s): E86.0 - Dehydration Status: Acute Assessment and Plan: He is be judiciously hydrated with close monitoring of volume status. Will stop IV fluid Plan leukocytosis: Drastically worsened with another spike a fever 08/11/2022 pancultured. Leukocytosis improved significantly without any change from [id number] today. Unclear etiology. On vancomycin IV. chest x-ray with subtle opacities basal area. Respiratory status is unchanged. Urine looks infected still. Will await urine culture to finalize. Recent urine culture was positive for coag-negative staph not saprophyticus. For which he has received IV vancomycin Non-anion gap medical metabolic acidosis: Due to his chronic diarrhea. Add Oral bicarb increased bicarb to 3 times a day Dispotion: PT OT TO SEE Encephalopathy: likely delirium. michelle has underlying dementia. 08/14/2022 interval history: patient's is present in the states is looking and feeling much better compared to when he arrived however patient remains confused, unable to provide any review of symptom, patient urine is growing coag negative staph not saprophyti being treated with vancomycin tomorrow patient will complete 7 days antibiotic, urine culture is growing now Colleen albicans will start Diflucan, will monitor, will continue PT/OT Subjective Date/time seen: 08/14/22 18:00 Interval history: HPI: This is a 77-year-old male with vascular dementia, hypertension, peripheral vascular disease, jesus
[2022-08-15] VITALS (19 sets, daily range): BP systolic 102–124; BP diastolic 52–81; PULSE 74–105; RESP 14–20; TEMP 36–36.2; O2SAT 96–100
[2022-08-15] MEDS: ALBUTEROL SULFATE NEB 2.5 MG/3 ML INH INHALATION ×4 (02:42→20:36)
[2022-08-15] MEDS: IPRATROPIUM BR 0.02% INH SOLN 0.5 MG/2.5 ML VIAL INHALATION ×4 (02:42→20:36)
[2022-08-15 06:08] LABS: Estimated CRCL calculation 33 ml/min; Estimated Glomerular Filt Rate 46
[2022-08-15] MEDS: MULTIVITAMINS /C LUTEIN (CENTRUM SILVER) TABLET *BKC 1 TAB PO (09:06)
[2022-08-15] MEDS: allopurinoL 100 MG TABLET PO (09:06)
[2022-08-15] MEDS: ESCITALOPRAM OXALATE 10 MG TABLET 20 MG PO (09:06)
[2022-08-15] MEDS: ATORVASTATIN 10 MG TABLET PO (09:06)
[2022-08-15] MEDS: SODIUM BICARBONATE TAB 650 MG TABLET PO ×3 (09:06→17:55)
[2022-08-15] MEDS: OMEGA 3 POLYUNSAT FATTY ACIDS 1 GM CAP PO (09:07)
[2022-08-15] MEDS: dilTIAZem HCL CD 180 MG CAP.ER.24H PO (09:07)
[2022-08-15] MEDS: ACIDOPHILUS/BULGARICUS CHEWABLE TABLET 1 TABLET PO (09:07)
[2022-08-15] MEDS: ASPIRIN 81 MG ENTERIC TABLET PO (09:07)
[2022-08-15] MEDS: cilostazoL 100 MG TABLET PO (09:07)
[2022-08-15] MEDS: prednisoLONE ACETATE 1% OPHTH 5 ML 1 DROP LEFT EYE ×3 (09:08→17:55)
[2022-08-15] MEDS: METOPROLOL TARTRATE 12.5 MG TABLET PO ×2 (09:12→20:12)
--- NOTE | 2022-08-15 11:36 | PM.IMPN ---
Progress Note: A&P Assessment and Plan (1) Atrial fibrillation with rapid ventricular response: Code(s): I48.91 - Unspecified atrial fibrillation Status: Acute Assessment and Plan: The patient presented to the ED in atrial fibrillation with rapid ventricular response. He was given a diltiazem bolus and has since been started on a diltiazem drip with improvement in his rate. He is not on long-term anticoagulation home due to history of GI bleeding related to his Crohn's disease. Continue metoprolol. taper off diltiazem gtt as tolerated and will switch to oral Cardizem. increasedcardizem to 180 mg daily heart rate much controlled now tsh normal (2) Influenza A: Code(s): J10.1 - Influenza due to other identified influenza virus with other respiratory manifestations Status: Acute Assessment and Plan: Symptoms have been going on for at least 5 days thus I do not think Tamiflu would be very helpful. (3) Urinary tract infection: Code(s): N39.0 - Urinary tract infection, site not specified Status: Acute Assessment and Plan: Urinalysis is abnormal and he is being started on empiric ceftriaxone, p urine culture with CONS, not saprophyticus. switch to iv vancomycin. stop ceftriaxone. 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 Continue normal saline. Monitor strict I/O. (5) Crohn's disease: Code(s): K50.90 - Crohn's disease, unspecified, without complications Status: Acute Assessment and Plan: Currently in a study at [facility] as detailed in HPI. Study coronary are was contacted and they requested the patient be continued on this medication while in the hospital. (6) Hypertension: Code(s): I10 - Essential (primary) hypertension Status: Acute Assessment and Plan: Blood pressures were reviewed and they are stable. Antihypertensives will be reviewed and resumed as appropriate. (7) Chronic anemia: Code(s): D64.9 - Anemia, unspecified Status: Acute Assessment and Plan: CBC shows a macrocytic anemia and his B12, folate, and iron studies from February 2022 reviewed. Stable; monitor. (8) Dehydration: Code(s): E86.0 - Dehydration Status: Acute Assessment and Plan: He is be judiciously hydrated with close monitoring of volume status. Will stop IV fluid Plan leukocytosis: Drastically worsened with another spike a fever 08/11/2022 pancultured. Leukocytosis improved significantly without any change from [id number] today. Unclear etiology. On vancomycin IV. chest x-ray with subtle opacities basal area. Respiratory status is unchanged. Urine looks infected still. Will await urine culture to finalize. Recent urine culture was positive for coag-negative staph not saprophyticus. For which he has received IV vancomycin Non-anion gap medical metabolic acidosis: Due to his chronic diarrhea. Add Oral bicarb increased bicarb to 3 times a day Dispotion: PT OT TO SEE Encephalopathy: likely delirium. michelle has underlying dementia. 08/15/2022 interval history: on 08/14 patient's was present in the room, stated he is looking and feeling much better compared to when he arrived however patient remains confused, today unable to provide any review of symptom, patient urine is growing coag negative staph not saprophyti being treated with vancomycin today patient will complete 7 days antibiotic, will stop abx today, urine culture is growing now Colleen albicans unable to start Diflucan as there is significant interaction with patient psych medication, , will monitor, will continue PT/OT Subjective Date/time seen: 08/15/22 11:36
[2022-08-16] VITALS (8 sets, daily range): BP systolic 97; BP diastolic 57; PULSE 80–102; RESP 16; TEMP 36.3; O2SAT 92–93
[2022-08-16] MEDS: ALBUTEROL SULFATE NEB 2.5 MG/3 ML INH INHALATION ×2 (03:27→08:51)
[2022-08-16] MEDS: IPRATROPIUM BR 0.02% INH SOLN 0.5 MG/2.5 ML VIAL INHALATION ×2 (03:27→08:51)
[2022-08-16 05:49] LABS: Hematocrit 24.5 % (42.0-52.0); Hemoglobin 7.9 g/dL (14.0-18.0); Mean Corpuscular HGB Conc 32.2 g/dl (32-36); Mean Corpuscular Hemoglobin 32.9 pg (26-34); Mean Corpuscular Volume 102.1 fl (80-100); Mean Platelet Volume 9.1 fl (7.4-10.4); Platelet Count Result 219 k/mm3 (150-375); Red Cell Distribution Width 15.9 % (11.5-14.5); White Blood Count 8.6 K/mm3 (4.5-10.0)
[2022-08-16 06:02] LABS: Anion Gap 6 mmol/L (8-16); Blood Urea Nitrogen 15 mg/dL (9-20); Calcium 6.9 mg/dL (8.4-10.2); Carbon Dioxide 18 mmol/L (22-30); Chloride 114 mmol/L (98-107); Estimated CRCL calculation 32 ml/min; Estimated Glomerular Filt Rate 46; Glucose 81 mg/dL (65-110); Magnesium 1.8 mg/dL (1.6-2.3); Potassium 3.6 mmol/L (3.4-5.0); Sodium 138 mmol/L (137-145)
[2022-08-16] MEDS: cilostazoL 100 MG TABLET PO (09:10)
[2022-08-16] MEDS: ACIDOPHILUS/BULGARICUS CHEWABLE TABLET 1 TABLET PO (09:10)
[2022-08-16] MEDS: ESCITALOPRAM OXALATE 10 MG TABLET 20 MG PO (09:10)
[2022-08-16] MEDS: dilTIAZem HCL CD 180 MG CAP.ER.24H PO (09:10)
[2022-08-16] MEDS: OMEGA 3 POLYUNSAT FATTY ACIDS 1 GM CAP PO (09:10)
[2022-08-16] MEDS: ASPIRIN 81 MG ENTERIC TABLET PO (09:11)
[2022-08-16] MEDS: SODIUM BICARBONATE TAB 650 MG TABLET PO ×2 (09:12→13:06)
[2022-08-16] MEDS: ATORVASTATIN 10 MG TABLET PO (09:12)
[2022-08-16] MEDS: MULTIVITAMINS /C LUTEIN (CENTRUM SILVER) TABLET *BKC 1 TAB PO (09:12)
[2022-08-16] MEDS: allopurinoL 100 MG TABLET PO (09:12)
[2022-08-16] MEDS: prednisoLONE ACETATE 1% OPHTH 5 ML 1 DROP LEFT EYE ×2 (09:12→13:06)
--- NOTE | 2022-08-16 11:52 | PM.DS ---
DS: Admitting Diagnosis Discharge Date 08/16/2022 Admitting Diagnosis Weak DS: Discharge Diagnosis Discharge Diagnosis (1) Atrial fibrillation with rapid ventricular response: Code(s): I48.91 - Unspecified atrial fibrillation Status: Acute Assessment and Plan: The patient presented to the ED in atrial fibrillation with rapid ventricular response. He was given a diltiazem bolus and has since been started on a diltiazem drip with improvement in his rate. He is not on long-term anticoagulation home due to history of GI bleeding related to his Crohn's disease. Continue metoprolol. taper off diltiazem gtt as tolerated and will switch to oral Cardizem. increasedcardizem to 180 mg daily heart rate much controlled now tsh normal (2) Influenza A: Code(s): J10.1 - Influenza due to other identified influenza virus with other respiratory manifestations Status: Acute Assessment and Plan: Symptoms have been going on for at least 5 days thus I do not think Tamiflu would be very helpful. (3) Urinary tract infection: Code(s): N39.0 - Urinary tract infection, site not specified Status: Acute Assessment and Plan: Urinalysis is abnormal and he is being started on empiric ceftriaxone, p urine culture with CONS, not saprophyticus. switch to iv vancomycin. stop ceftriaxone. 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 Continue normal saline. Monitor strict I/O. (5) Crohn's disease: Code(s): K50.90 - Crohn's disease, unspecified, without complications Status: Acute Assessment and Plan: Currently in a study at [facility] as detailed in HPI. Study coronary are was contacted and they requested the patient be continued on this medication while in the hospital. (6) Hypertension: Code(s): I10 - Essential (primary) hypertension Status: Acute Assessment and Plan: Blood pressures were reviewed and they are stable. Antihypertensives will be reviewed and resumed as appropriate. (7) Chronic anemia: Code(s): D64.9 - Anemia, unspecified Status: Acute Assessment and Plan: CBC shows a macrocytic anemia and his B12, folate, and iron studies from February 2022 reviewed. Stable; monitor. (8) Dehydration: Code(s): E86.0 - Dehydration Status: Acute Assessment and Plan: He is be judiciously hydrated with close monitoring of volume status. Will stop IV fluid Plan leukocytosis: Drastically worsened with another spike a fever 08/11/2022 pancultured. Leukocytosis improved significantly without any change from [id number] today. Unclear etiology. On vancomycin IV. chest x-ray with subtle opacities basal area. Respiratory status is unchanged. Urine looks infected still. Will await urine culture to finalize. Recent urine culture was positive for coag-negative staph not saprophyticus. For which he has received IV vancomycin Non-anion gap medical metabolic acidosis: Due to his chronic diarrhea. Add Oral bicarb increased bicarb to 3 times a day Dispotion: PT OT TO SEE Encephalopathy: likely delirium. michelle has underlying dementia. 08/15/2022 interval history: on 08/14 patient's was present in the room, stated he is looking and feeling much better compared to when he arrived however patient remains confused, today unable to provide any review of symptom, patient urine is growing coag negative staph not saprophyti being treated with vancomycin today patient will complete 7 days antibiotic, will stop abx today, urine culture is growing now Colleen albicans unable to start Diflucan as there is significant interaction with patient psych medication, ,
== END 2022-08-16 13:25 | disposition home health service (06) | DRG 309 ==
LOC: ANHED 12:42 → ANHIMU 13:40 → ANH3MEDSUR 08-11 13:40
PROVIDERS: Internal Medicine; Physician Assistant; Admitting Provider Internal Medicine; Emergency Provider Emergency Medicine; PCP Internal Medicine; Visit Provider Family Medicine
DX: I48.0 Paroxysmal atrial fibrillation (principal); B37.49 Other urogenital candidiasis; N39.0 Urinary tract infection, site not specified; Z68.1 Body mass index [BMI] 19.9 or less, adult; K50.90 Crohn's disease, unspecified, without complications; E87.20 Acidosis, unspecified; J10.1 Influenza due to other identified influenza virus with other respiratory manifestations; B95.7 Other staphylococcus as the cause of diseases classified elsewhere; Z20.822 Contact with and (suspected) exposure to COVID-19; N40.0 Benign prostatic hyperplasia without lower urinary tract symptoms; N18.30 Chronic kidney disease, stage 3 unspecified; D53.9 Nutritional anemia, unspecified; E86.0 Dehydration; F01.50 Vascular dementia, unspecified severity, without behavioral disturbance, psychotic disturbance, mood disturbance, and anxiety; I25.10 Atherosclerotic heart disease of native coronary artery without angina pectoris; I73.9 Peripheral vascular disease, unspecified; I12.9 Hypertensive chronic kidney disease with stage 1 through stage 4 chronic kidney disease, or unspecified chronic kidney disease; E78.5 Hyperlipidemia, unspecified; R62.7 Adult failure to thrive; D72.829 Elevated white blood cell count, unspecified; M19.90 Unspecified osteoarthritis, unspecified site; Z66 Do not resuscitate; Z95.1 Presence of aortocoronary bypass graft; Z79.82 Long term (current) use of aspirin; Z90.49 Acquired absence of other specified parts of digestive tract; Z95.820 Peripheral vascular angioplasty status with implants and grafts; Z87.891 Personal history of nicotine dependence
CPT/HCPCS: 36415; 71045; 71046; 80048; 80053; 80202; 81001; 82565; 83605; 83735; 84443; 84484; 85025; 85027; 85055; 87040; 87077; 87086; 87088; 87106; 87186; 87637; 93005; 94640; 96365; 96366; 97110; 97116; 97162; 97165; 97530; 97535; 99285; A9270; J0696; J3370; J7030

== ENCOUNTER 2022-09-09 21:33 | Inpatient (IN) | payer MEDICARE, SELFPAY ==
--- NOTE | ~2022-09-09 | CT_ITS ---
EXAMINATION: CT brain wo con DATE: 09/10/2022 01:41 INDICATION: Altered mental status. Confusion. TECHNIQUE: Computed tomography (CT) of the head was performed without intravenous contrast. The mA wa s adjusted according to patient size. Iterative reconstruction technique was employed. The dose-lengt h product was 605.33 mGy-cm. COMPARISON: Head CT 03/21/2022 FINDINGS: There are scattered areas of low attenuation in the cerebral white matter. There is no intr acranial hemorrhage, acute infarction, or abnormal intracranial mass lesion. The ventricles are marya l in size. There is mild mucosal thickening in the paranasal sinuses. There are likely changes of ocu lar lens replacement surgeries. There is a trace right mastoid effusion. IMPRESSION: 1. Moderate nonspecific cerebral white matter disease, which likely represents chronic small vessel i schemic disease. Reviewed, dictated and finalized at location A. TER INTELLIGENCE AGENT IMPRESSION: 1. Moderate nonspecific cerebral white matter disease, which likely represents chronic small vessel ischemic disease.
--- NOTE | ~2022-09-09 | XR_ITS ---
Supine view of the abdomen Clinical history: Chronic UTI, confusion COMPARISON: 12/02/2017 Findings: There is relative superior displacement of bowel loops from the pelvis. Bowel gas pattern i s otherwise nonspecific. No evidence for obstruction or free air. No abnormal mass lesion or calcific ation is seen. Cholecystectomy clips noted. Osseous structures are intact. Impression: Superior displacement of bowel from the pelvis is compatible with underlying markedly distended urina ry bladder, as seen on CT performed earlier today. Reviewed, dictated and finalized at location . GLE CATCHER Impression: Superior displacement of bowel from the pelvis is compatible with underlying ma rkedly distended urinary bladder, as seen on CT performed earlier today.
--- NOTE | ~2022-09-09 | XR_ITS ---
XR chest 2V DATE: 09/09/2022 22:40 INDICATION: Cough. Altered mental status. TECHNIQUE: PA and lateral views COMPARISON: 08/12/2022 portable AP chest FINDINGS: There are bilateral lower lung infiltrates and/atelectasis, left greater than right. There is suggestion of moderate improvement on the left since 08/12/2022. The lungs otherwise are clear of infiltrate or consolidation. No pulmonary vascular congestion. No pl eural effusion. Status post sternotomy and coronary bypass graft surgery. Coronary artery stent is noted. Normal hear t size. Aortic calcification. No hilar or mediastinal enlargement. No pneumothorax is evident. IMPRESSION: Mild patchy bilateral lower lung infiltrate or atelectasis; moderate improvement on the l eft since 08/12/2022 Reviewed, dictated and finalized at location A. EPOINT ANALYST IMPRESSION: Mild patchy bilateral lower lung infiltrate or atelectasis; moderat e improvement on the left since 08/12/2022
--- NOTE | ~2022-09-09 | CT_ITS ---
Non-contrast CT scan of the Abdomen and Pelvis Clinical indication: Chronic UTI, urinary retention Technique: 5 mm axial scans were obtained through the abdomen and pelvis without intravenous or oral contrast. Dose reduction technique was used on this scan by utilizing automated exposure control and iterative reconstruction technique. The dose-length product (DLP) was 334.94 mGy-cm. COMPARISON: 05/17/2022 Findings: Images through the lung bases reveal no abnormalities. There is mild bilateral hydronephrosis with distended, probable bilateral extrarenal pelves. No renal or ureteral stones identified. The liver, spleen, pancreas, and adrenals appear normal. Cholecystectomy clips present. There is no a ortic aneurysm. There is no evidence of bowel obstruction. Right colonic anastomosis noted. Images through the pelvis were performed. There is no evidence of ascites or lymphadenopathy. Urinary bladder is markedly distended. No definite pelvic mass seen. Impression: Marked urinary bladder distention is similar to prior exam. Mild bilateral hydronephrosis with probable distended bilateral extrarenal pelves. Reviewed, dictated and finalized at [facility]. OPEDIC BRACE MAKER Impression: Marked urinary bladder distention is similar to prior exam. Mild bilateral hydronephrosis with probable distended bilateral extrarenal pelv es.
[2022-09-09 21:49] VITALS: BP 107/66; PULSE 96; RESP 14; TEMP 37.2; O2SAT 99
[2022-09-09 22:10] LABS: Basophils Absolute Auto 0.1 K/mm3 (0.0-0.1); Basophils Percent Auto 0.6 % (0.2-1.2); Eosinophils Absolute Auto 0.2 K/mm3 (0-0.3); Eosinophils Percent Auto 1.5 % (0-4.4); Hematocrit 31.6 % (42.0-52.0); Hemoglobin 9.8 g/dL (14.0-18.0); Immature Granulocyte Absolute 0.05 K/mm3 (0.00-0.031); Immature Granulocyte Percent A 0.5 % (0-0.5); Lymphocytes Absolute Auto 0.81 K/mm3 (0.9-3.2); Lymphocytes Percent Auto 7.4 % (18.3-44.2); Mean Corpuscular Hemoglobin 31.8 pg (26-34); Mean Corpuscular Volume 102.6 fl (80-100); Mean Platelet Volume 9.6 fl (7.4-10.4); Monocytes Absolute Auto 0.6 K/mm3 (0.1-0.6); Monocytes Percent Auto 5.4 % (2.6-8.5); Neutrophils Absolute Auto 9.3 K/mm3 (1.3-6.7); Neutrophils Percent Auto 84.6 % (45.5-73.1); Platelet Count Result 175 k/mm3 (150-375); Red Blood Count 3.08 M/mm3 (4.6-6.20); Red Cell Distribution Width 14.5 % (11.5-14.5)
[2022-09-09 22:20] LABS: Alanine Aminotransferase 294 U/L (6-50); Albumin Level 2.8 g/dL (3.5-5.1); Alkaline Phosphatase 115 U/L (38-126); Anion Gap 3 mmol/L (8-16); Aspartate Amino Transferase 98 U/L (17-59); Bilirubin,Total 0.8 mg/dL (0.2-1.3); Blood Urea Nitrogen 17 mg/dL (9-20); Calcium 7.2 mg/dL (8.4-10.2); Carbon Dioxide 15 mmol/L (22-30); Chloride 118 mmol/L (98-107); Estimated CRCL calculation 27 ml/min; Estimated Glomerular Filt Rate 35; Glucose 93 mg/dL (65-110); INR 1.4; Potassium 4.2 mmol/L (3.4-5.0); Prothrombin Time 16.7 Seconds (11.1-14.7); Sodium 136 mmol/L (137-145)
[2022-09-09 22:21] LABS: Partial Thromboplastin Time 30.7 SECONDS (22.3-36.8)
[2022-09-09 22:26] LABS: Appearance Urine Clear (Clear); Bilirubin Urine Negative (Negative); Blood Urine 2+ (Negative); Glucose Urine UA Negative (Negative); Ketones Urine Negative (Negative); Leukocyte Esterase Ur 2+ LEU/UL (Negative); Nitrate Urine Positive (Negative); Protein Urine 1+ mg/dL (Negative); Specific Grav Ur 1.025 (1.001-1.035); Urobilinogen Urine 0.2 mg/dL (<2.0)
[2022-09-09 22:28] LABS: Add Urine Microscopic? YES; Color Urine Dark Brown (Yellow)
[2022-09-09 22:35] LABS: Bacteria Urine Trace /hpf; Mucus Urine Moderate /lpf; RBC Urine >75 /hpf (0-2); Squamous Epithelial Cell Urine Many /hpf (Few); WBC Urine >75 /hpf
[2022-09-10] VITALS (50 sets, daily range): BP systolic 89–138; BP diastolic 48–101; PULSE 68–135; RESP 12–26; TEMP 36.1–37.2; O2SAT 95–99; BMI 19.9
--- NOTE | 2022-09-10 01:00 | ED.AMS ---
HPI - Altered Mental Status General Chief Complaint: Altered Mental Status <Dominga Sweet PA-C - Last Filed: 09/10/22 03:28> Stated Complaint: Confusion, possible UTI <NAZ Garcia Last Filed: 09/10/22 03:28> Time Seen by Provider: 09/10/22 00:32 <NAZ Garcia Last Filed: 09/10/22 03:28> Source: patient, family and old records reviewed <NAZ Garcia Last Filed: 09/10/22 03:28> Mode of arrival: ambulatory <NAZ Garcia Last Filed: 09/10/22 03:28> Limitations: no limitations <NAZ Garcia Last Filed: 09/10/22 03:28> History of Present Illness HPI narrative: Patient is a 77 y/o male who presents to the ED with report of AMS. Patient's is in providing patient's information. She reports patient has been admitted recently for urinary tract infections. He has been following with Dr. Butterfield. They have been discussing straight catheterizations as they feel patient may be retaining some urine. Patient was scheduled to see Dr. Butterfield tomorrow morning, however reports patient became confused last night and tonight. He does have a history of mild baseline dementia. 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 is concerned he may have another urinary tract infection. He did finish a course of Bactrim a few days ago. She reported he had some chills and dysuria tonight, but denied any documented fever. Patient denies any acute complaints. He denies any pain, nausea, vomiting, chest pain, SOB. <NAZ Garcia Last Filed: 09/10/22 03:28> Related Data Home Medications: Home Medications Medication Instructions Recorded Confirmed Lactobacillus 1 cap PO DAILY 03/21/22 08/07/22 acidophilus-Bifidobac.animalis 2.5 billion cell capsule (Daily Probiotic) amlodipine 5 mg tablet 2.5 mg PO BID 03/21/22 08/07/22 aspirin 81 mg tablet 81 mg PO DAILY 03/21/22 08/07/22 atorvastatin 10 mg tablet 1 tablet PO DAILY 03/21/22 08/07/22 cilostazol 100 mg tablet 1 tablet PO DAILY 03/21/22 08/07/22 coenzyme Q10 10 mg tablet 20 mg PO DAILY 03/21/22 08/07/22 escitalopram oxalate 20 mg tablet 1 tablet PO DAILY 03/21/22 08/07/22 irbesartan 150 mg tablet 150 mg PO DAILY 03/21/22 08/07/22 metoprolol tartrate 25 mg tablet 12.5 mg PO BID 03/21/22 08/07/22 multivit with minerals-iron 18 1 tablet PO DAILY 03/21/22 08/07/22 mg-folic ac 400 mcg-vit K 25 mcg tablet (Adults Multivitamin) omega-3 fatty acids 1 cap PO DAILY 03/21/22 08/07/22 cyanocobalamin (vitamin B-12) 1,000 mcg IM MONTHLY 05/18/22 08/07/22 1,000 mcg/mL injection solution Clinical Trial Am Medication 12 mg PO DAILY 08/07/22 08/07/22 [id number] Capsule Clinical Trial Pm Medication 12 mg PO HS 08/07/22 08/07/22 [id number] Capsule allopurinol 100 mg tablet 100 mg PO DAILY 08/07/22 08/07/22 prednisolone acetate 1 % eye 1 drp LEFT EYE TID 08/11/22 08/11/22 drops,suspension <Dominga Sweet PA-C - Last Filed: 09/10/22 03:28> Allergies/Adverse Reactions: Allergies Allergy/AdvReac Type Severity Reaction Status Date / Time No Known Allergies Allergy Verified 05/17/22 23:15 <Dominga Sweet PA-C - Last Filed: 09/10/22 03:28> Review of Systems Review of Systems: CONSTITUTIONAL: Reports chills. Denies fever or sweats. CARDIOVASCULAR: Denies chest pain, palpitations. RESPIRATORY: Denies cough or dyspnea. GASTROINTESTINAL: Denies abdominal pain, nausea, vomiting, or diarrhea. GENITOURINARY: Reports dysuria. Denies hematuria. MUSCULOSKELETAL: Denies back pain, joint pain, or myalgia. NEUROLOGIC: Reports confusion. Denies headache, numbness, or weakness. <Dominga Sweet PA-C - Last Filed: 09/10/22 03:28> All systems reviewed & are unremarkable except as noted in HPI and below <Dominga Edwards
[2022-09-10] MEDS: SODIUM CHLORIDE 0.9% IV 1,000 ML 999 ML IV CONT ×2 (01:36→03:32)
[2022-09-10 02:01] LABS: Influenza A QL RT-PCR Negative (Negative); Influenza B QL RT-PCR Negative (Negative); SARS-CoV-2 RNA PCR Positive
--- NOTE | 2022-09-10 07:53 | PM.IMHP ---
H&P: HPI History of Present Illness Date/Time: 09/10/22 07:53 Chief Complaint: Altered mental status Narrative: Vitaly Oreilly is 77 yo male with vascular dementia, BPH, CKD stage 3, CAD, crohn's disease, HTN, HLD, and chronic anemia. He presented to the ED for evaluation of altered mentals status, weakness, abdominal distention and tenderness, dysuria, chills and he thinks he has had fevers. The patient is a poor historian and there is no family at the bedside at the time of my assessment. Medical history was obtained some from the patient, as well as ED and prior medical records. The patient appears to have had a long history of urinary retention but has gone without a de la garza as he was not having discomfort. Recently, however, he has had multiple UTIs. In June of this year, he was treated for coag negative staph initially with Bactrim, but then started on Macrobid when culture showed resistance to Bactrim. He was then hospitalized 08/07/22 to 08/16/22 for UTI, influenza A, dehydration and new atrial fibrillation with RVR. He was treated with IV Vancomycin and discharged home with home health. At that time, urine culture showed coag negative staph again. 08/12/22 cultures grew yuridia albicans. He followed up with Urology for evaluation of post-hospitalization and repeat UA was abnormal but was negative for nitrates and he did not have symptoms. In the ED, vitals were Temp 98.9F, HR 123, RR 18, BP 138/60, and spO2 99% RA. Lab work showed WBC 11, BUN 17, creatinine 1.9 (baseline 1.4-1.7), eGFR 35, sodium 136, chloride 118, TCO2 15, corrected calcium 8.4, AG 3, lactic acid 1.0, elevated AST 98, ALT 294, and UA with 1+ protein, 2+ blood, positive nitrates, 2+ leukocytes, >75 WBC and RBC, and trace bacteria. He has COVID19 positive. Influenza A/B negative. He does not recall if he received COVID19 immunizations, recent infection or sick contacts. He is unsure of what medications he is taking. At this time, he denies c/o chest pain, SOB, sore throat, BEE, nausea, or vomiting. He has chronic diarrhea from his Crohn's disease. He was treated with 2L NS fluids and Rocephin 1 gram IV. Of note, during my assessment, the patient was noted to have afib RVR 130-140s with BP 124/87. He was given IV metoprolol 5 mg x1 and resumed on his home metoprolol tartrate and diltiazem 60 mg TID. He will be admitted to the medical floor with telemetry for further monitoring. Urology was consulted in the ED. Review of Systems Review of Systems: ROS unobtainable: Yes unobtainable due to mental status [facility] Past Medical History Medical History B12 deficiency Benign prostatic hyperplasia Chronic anemia Chronic kidney disease, stage 3 Coronary artery disease Crohn's disease Depression Gout Hyperlipidemia Hypertension Iron deficiency anemia Kidney stones Osteoarthritis Peripheral vascular disease Seizures Vascular dementia Surgical History Surgical History History of bilateral cataract extraction History of cholecystectomy History of coronary artery bypass graft History of lithotripsy History of partial colectomy X2 for to bowel obstructions and fistula secondary to Crohn's disease. History of vascular surgery Bilateral lower extremity stents. Family History Family History Father Myocardial infarct Cerebrovascular accident Mother Breast cancer Sibling Crohn's disease Social History Social History Social History: Surrogate decision maker: Sarah Oreilly, spouse. Code status: Do not resuscitate. Smoking packs per day: 2 Smoking cigarettes per day: 40.0 Years smoked: 25 Smoking pack-years: 50.00 Smoking status: Unknown if ever smoked Tobacco type: cigarettes Second hand tobacco smoke exposure: No Smoking end amairani
--- NOTE | 2022-09-10 09:48 | ECG_ITS ---
Measurements Intervals [place] Rate: 159 P: MN: 0 QRS: 67 QRSD: 70 T: -79 QT: 250 QTc: 407 Interpretive Statements ATRIAL FIBRILLATION WITH RAPID VENTRICULAR RESPONSE LOW QRS VOLTAGE IN PRECORDIAL LEADS [QRS DEFLECTION < 1.0 mV IN CHEST LEADS] ST DEVIATION AND MODERATE T-WAVE ABNORMALITY, CONSIDER LATERAL ISCHEMIA [-0.1+ mV T WAVE IN I/aVL/V5/V6] ST DEVIATION AND MODERATE T-WAVE ABNORMALITY, CONSIDER INFERIOR ISCHEMIA [-0.1+ mV T WAVE IN II/aVF] ABNORMAL ECG COMPARED TO ECG 08/07/2022 09:49:13 NO SIGNIFICANT CHANGES Electronically Signed On 09-10-2022 15:33:52 ESCROW ASSISTANT by Harley Bowser M.D.
--- NOTE | 2022-09-10 09:53 | PC.NURSE ---
Pt found to be in afib rvr - EKG ordered. Wendy Donahue hospitalist following pt. Called - Alisa Young speaking with Wendy.
[2022-09-10] MEDS: METOPROLOL TARTRATE INJ 5 MG/5 ML VIAL IV PUSH (10:33)
[2022-09-10] MEDS: METOPROLOL TARTRATE 12.5 MG TABLET PO ×3 (10:57→20:58)
[2022-09-10] MEDS: dilTIAZem HCL 60 MG TABLET PO ×3 (11:03→22:15)
--- NOTE | 2022-09-10 13:00 | WPDURCON ---
Assessment and Plan Assessment and plan (1) Altered mental status: Qualifiers: Altered mental status type: unspecified Qualified Code(s): R41.82 - Altered mental status, unspecified Code(s): R41.82 - Altered mental status, unspecified Status: Acute Assessment and Plan: Likely secondary to infection. (2) Urinary tract infection: Qualifiers: Hematuria presence: with hematuria Urinary tract infection type: acute cystitis Qualified Code(s): N30.01 - Acute cystitis with hematuria Code(s): N39.0 - Urinary tract infection, site not specified Status: Acute Assessment and Plan: Continue Ceftriaxone, tailor to culture results. Secondary to shelter untreated retention. (3) Retention, urine: Code(s): R33.9 - Retention of urine, unspecified Status: Acute Assessment and Plan: De La Garza placed, 2L of output. Keep de la garza in place, start Finasteride and Flomax. F/U in 7-10 days for a voiding trial. Patient has had a TURP in the past, may need another one if he fails medications. No further evaluation while hospitalized, treatment of infection if main focus of urology at this time. Urology Consult Note HPI Date Seen: 09/10/22 Time Seen: 09:00 Requesting Physician: Tawanna Shaikh MD Primary Care Provider: John Kimbrough, Consult Narrative Reason for consult: Retention/UTI Narrative: Vitaly Oreilly is a 77 year old male who presented to the ER today with confusion, weakness, reports of dysuria, chills and known retention. He is a patient at our office and was scheduled to be seen today in the office for a UTI, however he worsened throughout the night and his had to call 911. He has had a known issue with retention for years but has willingly gone without a de la garza as he was not uncomfortable. However in recent months he has had chronic UTI's that will not clear on culture sensitive antibiotics. He had a urine culture done on 07/22/22 that grew Coagulase Negative Staph which was treated in our office initially with Bactrim, but the culture was resistant so he was switched to Nitrofurantoin. However he worsened and was hospitalized shortly thereafter. His repeat urine culture in the hospital at [place] on 08/07/22 grew the same Coagulase Negative Staph. He then was clear for a bit, but a repeat culture of yuridia grew on 08/12/22. He f/u with me in the office on 08/29/22 and his urine continued to appear infected but he didn't have any symptoms at that time, and there were no nitrites in his urine as well as no culture sent. Since he was asymptomatic and had thorough antibiotic treatment previously. He was given Bactrim self start antibiotics d/t his complicated history of UTI's without any source of infection. He had a cystoscopy on 07/01/[address] Butterfield that was normal as well as a prior CT on 06/26/22 that showed a severely distended bladder without hydronephrosis. His creatinine is 1.90, WBC is 11.0, blood cultures and urine cultures are pending and he has been started on Ceftriaxone. A repeat CT was ordered and shows a Marked urinary bladder distention is similar to prior exam. A de la garza placement was also ordered which resulted in 2L of urine output. History of TURP. Review of Systems Cardiovascular: Cardiovascular: Denies chest pain Gastrointestinal: Gastrointestinal: Denies abdominal pain, Denies nausea and Denies vomiting Genitourinary: Genitourinary: Reports dysuria, Denies flank pain, Reports urinary frequency, Reports urinary hesitancy, Reports urinary incontinence and Reports urinary urgency [facility] Past Medical History Medical History B12 deficiency Benign prostatic hyperplasia Chronic anemia Chronic kidney disease, stage 3 Coronary artery disease Crohn's disease Depression Gout Hyperlipidemia Hypertension Iron deficiency anemia Kidney stones Osteoarthritis Peripheral vascular disease
--- NOTE | 2022-09-10 13:13 | PC.NURSE ---
de la garza cath inserted per primary RN irving. Output ~1999
--- NOTE | 2022-09-10 16:43 | ADMGEN ---
This patient, Vitaly Oreilly, was admitted to Medical Room 249-01. Patient/family oriented to hospital policies and general routines including ID bracelet, bed and alarms, visiting hours, pain management, procedures, bathroom and other care routines, personal items, smoking policy, room service/diet, and visiting hours. Information on how to activate the Rapid Response Team has been discussed. Patient/Family are encouraged to report perceived risks to care and to ask questions if they do not understand what they are told or what they should do.
[2022-09-10] MEDS: LACTATED RINGERS 1,000 ML 75 ML IV CONT (17:43)
[2022-09-10] MEDS: SACCHAROMYCES BOULARDII 250 MG CAPSULE PO (17:44)
[2022-09-10] MEDS: SODIUM BICARBONATE TAB 650 MG TABLET PO (17:44)
[2022-09-10] MEDS: HEPARIN SODIUM 5,000 UNITS/ML VIAL 5000 UNITS SUB-Q (20:58)
[2022-09-10 21:33] LABS: Hepatitis B Surface Antigen Negative (Negative)
[2022-09-10 21:39] LABS: HAV RESULT Negative (Negative); Hepatitis B Core IgM Result Negative (Negative)
[2022-09-10 21:50] LABS: Hepatitis C Virus Antibody Negative (Negative)
[2022-09-11] VITALS (11 sets, daily range): BP systolic 109–149; BP diastolic 54–69; PULSE 64–99; RESP 14–18; TEMP 36.7–37; O2SAT 94–98
--- NOTE | 2022-09-11 | ECHO_ITS ---
Patient Info Name: Vitaly Oreilly Age: 77 years : 1945 Gender: Male Ht: 70 in Wt: 138 lbs BSA: 1.75 m2 HR: 96 bpm BP: 89 / 48 mmHg Heart Rhythm: Atrial Fibrillation Technical Quality: Good Exam Date: 09/11/2022 3:04 PM Exam Location: [facility] Exam Room: 249 Patient Status: Inpatient Admit Date: 09/10/2022 Staff Ordering Physician: Wendy Jamil APRN Employee Communications Coordinator: Sarah Lackey RCS Attending Provider: Tawanna Shaikh MD Referring Physician: Loulou ABERNATHY; Exam Type: CA echo doppler color flow Study Info Indications - covid hx/o cad cabg afib Complete two-dimensional, color flow and Doppler transthoracic echocardiogram is performed. Summary 1. Complete two-dimensional, color flow and Doppler transthoracic echocardiogram is performed. 2. Left ventricular systolic function is normal, estimated at 55-60%. 3. There is mildly increased left ventricular wall thickness. 4. Right ventricular chamber dimension is enlarged. 5. Left atrial chamber dimension is mildly enlarged. 6. Right atrial chamber dimension is moderately enlarged. 7. There is moderate mitral valve regurgitation. 8. There is mild tricuspid valve regurgitation. Left Ventricle Left ventricular chamber dimension is normal. Left ventricular systolic function is normal, estimated at 55-60%. There is mildly increased left ventricular wall thickness. Right Ventricle Right ventricular chamber dimension is enlarged. Left Atria Left atrial chamber dimension is mildly enlarged. Right Atria Right atrial chamber dimension is moderately enlarged. Aortic Valve The aortic valve is probable trileaflet. There is no aortic valve stenosis. There is no aortic valve regurgitation. Pulmonic Valve The pulmonic valve is not well visualized. Mitral Valve The mitral valve has normal leaflets. There is no mitral valve stenosis. There is moderate mitral valve regurgitation. Tricuspid Valve The tricuspid valve leaflets are normal. There is mild tricuspid valve regurgitation. Pericardium/Pleural There is no pericardial effusion. Aorta The aortic root size at the sinus of Valsalva is normal. Left Ventricular Outflow Tract Name Value Normal LVOT 2D LVOT Diameter 2.1 cm LVOT Doppler LVOT Peak Gradient 5 mmHg LVOT Mean Gradient 2 mmHg LVOT VTI 21 cm LVOT VTI/AV VTI Ratio 0.7 LVOT Stroke Volume 70 ml LVOT CO 14.7 l/min LVOT CI 8.4 l/min/m2 Pulmonic Valve Name Value Normal PV Doppler PV Peak Gradient 5 mmHg Mitral Valve Name
[2022-09-11 06:09] LABS: Basophils Percent Auto 0.5 % (0.2-1.2); Eosinophils Absolute Auto 0.1 K/mm3 (0-0.3); Eosinophils Percent Auto 1.7 % (0-4.4); Hematocrit 25.8 % (42.0-52.0); Hemoglobin 7.9 g/dL (14.0-18.0); Immature Granulocyte Absolute 0.04 K/mm3 (0.00-0.031); Immature Granulocyte Percent A 0.5 % (0-0.5); Lymphocytes Absolute Auto 0.44 K/mm3 (0.9-3.2); Lymphocytes Percent Auto 5.7 % (18.3-44.2); Mean Corpuscular HGB Conc 30.6 g/dl (32-36); Mean Corpuscular Hemoglobin 31.3 pg (26-34); Mean Corpuscular Volume 102.4 fl (80-100); Mean Platelet Volume 10.2 fl (7.4-10.4); Monocytes Absolute Auto 0.7 K/mm3 (0.1-0.6); Monocytes Percent Auto 9.1 % (2.6-8.5); Neutrophils Absolute Auto 6.4 K/mm3 (1.3-6.7); Neutrophils Percent Auto 82.5 % (45.5-73.1); Platelet Count Result 115 k/mm3 (150-375); Red Blood Count 2.52 M/mm3 (4.6-6.20); Red Cell Distribution Width 14.5 % (11.5-14.5); White Blood Count 7.8 K/mm3 (4.5-10.0)
[2022-09-11 06:22] LABS: Alanine Aminotransferase 169 U/L (6-50); Albumin Level 2.3 g/dL (3.5-5.1); Alkaline Phosphatase 89 U/L (38-126); Anion Gap 3 mmol/L (8-16); Aspartate Amino Transferase 46 U/L (17-59); Bilirubin,Total 0.8 mg/dL (0.2-1.3); Blood Urea Nitrogen 18 mg/dL (9-20); Calcium 6.6 mg/dL (8.4-10.2); Carbon Dioxide 15 mmol/L (22-30); Chloride 114 mmol/L (98-107); Estimated CRCL calculation 39 ml/min; Estimated Glomerular Filt Rate 54; Glucose 82 mg/dL (65-110); Magnesium 1.7 mg/dL (1.6-2.3); Potassium 3.6 mmol/L (3.4-5.0); Sodium 132 mmol/L (137-145)
[2022-09-11] MEDS: dilTIAZem HCL 60 MG TABLET PO ×3 (06:46→22:31)
[2022-09-11] MEDS: LACTATED RINGERS 1,000 ML 75 ML IV CONT ×3 (06:46→22:23)
--- NOTE | 2022-09-11 08:11 | PM.IMPN ---
Progress Note: A&P Assessment and Plan (1) Sepsis: Qualifiers: Sepsis type: sepsis due to unspecified organism Code(s): A41.9 - Sepsis, unspecified organism Status: Acute Assessment and Plan: HR>90, RR>20, UA positive for infection. Patient meets sepsis criteria. He received 2 liters NS fluids in ED. Will continue LR IV fluids judiciously given afib RVR and unknown heart failure status. Patient has chronic metabolic acidosis from renal failure and TCO2 15, sodium 136, will avoid NS to prevent worsening acidosis. Patient SIRS resolved as of 09/11/2022 (2) Urinary tract infection: Qualifiers: Hematuria presence: with hematuria Urinary tract infection type: acute cystitis Qualified Code(s): N30.01 - Acute cystitis with hematuria Code(s): N39.0 - Urinary tract infection, site not specified Status: Acute Assessment and Plan: UA with 1+ protein, 2+ blood, positive nitrates, 2+ leukocytes, >75 WBC and RBC, and trace bacteria SIRS He c/o dysuria, weakness, chills and reported fevers. He has h/o chronic UTIs and in June & July of this year urine cultures showed coag negative staph sensitive to Vancomycin. (Resistant to bactrim, oxacillin, and flouroquinolones). Given Rocephin 1 gram IV in ED 09/10 Continue IV Rocephin 1 gram IV Q24 hours. Add Vancomycin pharmacy to dose for prior culture result coverage as above. De-escalate antibiotics pending urine culture. Trend CBC, fevers, vitals Urine culture pending Continue with IV antibiotics (3) Retention, urine: Code(s): R33.9 - Retention of urine, unspecified Status: Acute Assessment and Plan: Acute urinary retention. -2L urine output with de la garza insertion in ED. H/O BPH Urology consulted and appreciate recommendations. De La Garza catheter inserted and to be maintained until office follow in 7-10 days post-discharge On finasteride and tamsulosin daily (4) Atrial fibrillation with rapid ventricular response: Code(s): I48.91 - Unspecified atrial fibrillation Status: Acute Assessment and Plan: Recent new diagnosis 07/2022 hospitalization. Patient does not appear to be on anticoagulation and prior notes indicate he is a poor correction anticoagulation due to dementia and falls HR 130-160s in ED and likely secondary to sepsis, UTI, and missed medications. Given 5 mg IV metoprolol x1, then home metoprolol and diltiazem resumed. Check Echocardiogram as it does not appear he has had one previously. check magnesium level. Keep mag>4 and K>4 Magnesium levels morning 1.7. Patient given 2 g of magnesium will recheck in the morning. (5) COVID-19: Code(s): U07.1 - COVID-19 Status: Acute Assessment and Plan: SARS-COV2 PCR positive in ED. Unknown vaccination status. He is not requiring supplemental oxygen at this time. Hold dexamethasone and Remdesivir. PRN albuterol HFA Q4 hours SOB/wheezing COVID19 isolation precautions. Recommend obtaining COVID19 series if not had, +/- booster if not had in the past 6 months. (6) Transaminitis: Code(s): R74.01 - Elevation of levels of liver transaminase levels Status: Acute Assessment and Plan: AST 98, ALT 294, Alk phos 115, Tbili 0.8. No prior history of transaminitis. CT abd/pelvis does not indicate liver abnormality. Likely elevated secondary to viral infection versus sepsis. Hepatitis panel negative Check ammonia level. Trend LFTs Consider abd US if continues to rise. Abdominal pain more localized to suprapubic region. (7) Chronic kidney disease, stage 3: Code(s): N18.30 - Chronic kidney disease, stage 3 unspecified Status: Chronic Assessment and Plan: BUN 17, creatinine 1.9, eGFR 35 on admission. Baseline BUN 14-15, creatinine 1.4-1.7, eGFR 46 UA with 1+ protein. Sodium 136, TCO2 15. Resume sodium bicarb [address] abd shows marked bladder distention with mild
[2022-09-11] MEDS: MULTIVITAMINS /C LUTEIN (CENTRUM SILVER) TABLET *BKC 1 TAB PO (09:13)
[2022-09-11] MEDS: METOPROLOL TARTRATE 12.5 MG TABLET PO ×3 (09:13→22:31)
[2022-09-11] MEDS: SACCHAROMYCES BOULARDII 250 MG CAPSULE PO ×2 (09:14→17:13)
[2022-09-11] MEDS: cilostazoL 100 MG TABLET PO (09:14)
[2022-09-11] MEDS: HEPARIN SODIUM 5,000 UNITS/ML VIAL 5000 UNITS SUB-Q ×2 (09:14→22:31)
[2022-09-11] MEDS: FINASTERIDE 5 MG TABLET PO (09:14)
[2022-09-11] MEDS: TAMSULOSIN HCL 0.4 MG CAPSULE PO (09:14)
[2022-09-11] MEDS: ASPIRIN 81 MG ENTERIC TABLET PO (09:14)
[2022-09-11] MEDS: SODIUM BICARBONATE TAB 650 MG TABLET PO ×3 (09:14→17:13)
[2022-09-11] MEDS: ESCITALOPRAM OXALATE 10 MG TABLET 20 MG PO (09:14)
[2022-09-11] MEDS: OMEGA 3 POLYUNSAT FATTY ACIDS 1 GM CAP PO (09:15)
[2022-09-11] MEDS: MAGNESIUM SULF 2 GM/WATER 50ML 2 GM/50 ML BAG IVPB (15:47)
[2022-09-12] VITALS: PULSE 93
[2022-09-12 04:00] VITALS: PULSE 98
[2022-09-12 05:09] VITALS: BP 101/51; PULSE 60; RESP 18; TEMP 36.9; O2SAT 90
[2022-09-12 05:28] LABS: Basophils Percent Auto 0.3 % (0.2-1.2); Eosinophils Absolute Auto 0.2 K/mm3 (0-0.3); Eosinophils Percent Auto 2.8 % (0-4.4); Hemoglobin 7.7 g/dL (14.0-18.0); Immature Granulocyte Absolute 0.04 K/mm3 (0.00-0.031); Immature Granulocyte Percent A 0.6 % (0-0.5); Immature Platelet Fraction Pct 2.9 % (0.9-11.2); Lymphocytes Absolute Auto 0.35 K/mm3 (0.9-3.2); Lymphocytes Percent Auto 4.9 % (18.3-44.2); Mean Corpuscular HGB Conc 32.1 g/dl (32-36); Mean Corpuscular Hemoglobin 32.4 pg (26-34); Mean Corpuscular Volume 100.8 fl (80-100); Mean Platelet Volume 10.6 fl (7.4-10.4); Monocytes Absolute Auto 0.7 K/mm3 (0.1-0.6); Neutrophils Absolute Auto 5.9 K/mm3 (1.3-6.7); Neutrophils Percent Auto 81.4 % (45.5-73.1); Platelet Count Result 114 k/mm3 (150-375); Red Blood Count 2.38 M/mm3 (4.6-6.20); Red Cell Distribution Width 14.6 % (11.5-14.5); White Blood Count 7.2 K/mm3 (4.5-10.0)
[2022-09-12 05:38] LABS: Alanine Aminotransferase 127 U/L (6-50); Albumin Level 2.1 g/dL (3.5-5.1); Alkaline Phosphatase 81 U/L (38-126); Anion Gap 2 mmol/L (8-16); Aspartate Amino Transferase 36 U/L (17-59); Bilirubin,Total 0.6 mg/dL (0.2-1.3); Blood Urea Nitrogen 16 mg/dL (9-20); Calcium 6.6 mg/dL (8.4-10.2); Carbon Dioxide 18 mmol/L (22-30); Chloride 109 mmol/L (98-107); Estimated CRCL calculation 36 ml/min; Estimated Glomerular Filt Rate 49; Glucose 89 mg/dL (65-110); Magnesium 2.1 mg/dL (1.6-2.3); Potassium 3.5 mmol/L (3.4-5.0); Sodium 129 mmol/L (137-145)
[2022-09-12] MEDS: dilTIAZem HCL 60 MG TABLET PO ×2 (05:43→13:09)
[2022-09-12 08:00] VITALS: PULSE 93
[2022-09-12 08:28] VITALS: PULSE 60
[2022-09-12] MEDS: OMEGA 3 POLYUNSAT FATTY ACIDS 1 GM CAP PO (08:28)
[2022-09-12] MEDS: METOPROLOL TARTRATE 12.5 MG TABLET PO (08:28)
[2022-09-12] MEDS: ESCITALOPRAM OXALATE 10 MG TABLET 20 MG PO (08:28)
[2022-09-12] MEDS: HEPARIN SODIUM 5,000 UNITS/ML VIAL 5000 UNITS SUB-Q (08:29)
[2022-09-12] MEDS: SODIUM BICARBONATE TAB 650 MG TABLET PO ×2 (08:29→13:09)
[2022-09-12] MEDS: SACCHAROMYCES BOULARDII 250 MG CAPSULE PO (08:29)
[2022-09-12] MEDS: TAMSULOSIN HCL 0.4 MG CAPSULE PO (08:29)
[2022-09-12] MEDS: cilostazoL 100 MG TABLET PO (08:29)
[2022-09-12] MEDS: FINASTERIDE 5 MG TABLET PO (08:29)
[2022-09-12] MEDS: ASPIRIN 81 MG ENTERIC TABLET PO (08:29)
[2022-09-12] MEDS: MULTIVITAMINS /C LUTEIN (CENTRUM SILVER) TABLET *BKC 1 TAB PO (08:29)
--- NOTE | 2022-09-12 08:59 | PM.DS ---
DS: Admitting Diagnosis Discharge Date 09/12/22 Admitting Diagnosis UTI, COVID DS: Discharge Diagnosis Discharge Diagnosis (1) Chronic anemia: Code(s): D64.9 - Anemia, unspecified Status: Chronic (2) COVID-19: Code(s): U07.1 - COVID-19 Status: Acute (3) Urinary tract infection: Qualifiers: Hematuria presence: with hematuria Urinary tract infection type: acute cystitis Qualified Code(s): N30.01 - Acute cystitis with hematuria Code(s): N39.0 - Urinary tract infection, site not specified Status: Acute (4) Altered mental status: Qualifiers: Altered mental status type: unspecified Qualified Code(s): R41.82 - Altered mental status, unspecified Code(s): R41.82 - Altered mental status, unspecified Status: Acute (5) Retention, urine: Code(s): R33.9 - Retention of urine, unspecified Status: Acute (6) Sepsis: Qualifiers: Sepsis type: sepsis due to unspecified organism Code(s): A41.9 - Sepsis, unspecified organism Status: Acute (7) Atrial fibrillation with rapid ventricular response: Code(s): I48.91 - Unspecified atrial fibrillation Status: Acute DS: Summary Hospital Course Reason for hospitalization: UTI, COVID-19 Hospital Course: 77-year-old male with history of vascular dementia, anemia, seizures, AFib, CKD, Crohn's disease and hypertension. Patient arrived to the ER on 09/10/2022 for altered mental status. Patient had been recently hospitalized for UTI and is following with Dr. Butterfield. Patient did finish Bactrim a few days ago. Patient's reported that he had some chills and dysuria but did not have of documented fever. UA revealed +1 protein, 2+ blood, positive nitrates, +2 leukocytes, greater than 75 WBC and RBC, trace bacteria. Patient also tested positive for COVID-19, negative for influenza a and B. patient unsure if he had been immunized for COVID and unsure about recent sick contacts. Patient was noted to have AFib RVR 130 to 140s with BP of 124/87 during his initial assessment. Patient was given IV metoprolol 5 mg x 1 and resumed his home metoprolol and diltiazem 60 mg t.i.d.. Patient put on telemetry. Urology consulted and continued patient on ceftriaxone and tailored to culture results. Patient does have history of long-term untreated urinary retention and catheter was inserted. Plan to keep Babin in place and start finasteride and Flomax. Plan to follow-up with urology in 7-10 days for voiding trial and possible TURP if patient fails other medications. Urine culture came back negative and patient's Rocephin was discontinued. Patient's COVID status was stable. Patient did not require any supplemental oxygen or breathing treatments during his stay. Patient only experience mild cough that was manageable. Patient is stable at discharge and splaying to be discharged home. Time Spent with Patient Time attestation: Total time spent providing and/or coordinating discharge services: Exam Narrative: GENERAL: Comfortable, no acute distress HENMT: moist mucous membranes EYES: EOM intact b/l NECK: no lymphadenopathy RESPIRATORY: Coarse lung sounds CARDIO: RRR GI: soft, nontender, bowel sounds present SKIN: no rashes EXTREMITIES: no edema, redness or tenderness DS: Data Data Completed and Pending Labs on day of discharge: Labs from last 24 hours 09/12/22 09/12/22 04:56 04:56 WBC 7.2 RBC 2.38 L Hgb 7.7 L Hct 24.0 L MCV 100.8 H MCH 32.4 MCHC 32.1 RDW 14.6 H Plt Count 114 L MPV 10.6 H Immature Gran % (Auto) 0.6 H Neut % (Auto) 81.4 H Lymph % (Auto) 4.9 L [place] % (Auto) 10.0 H Eos % (Auto) 2.8 Baso % (Auto) 0.3 Lymph # (Auto) 0.35 L [place] # (Auto) 0.7 H Eos # (Auto) 0.2 Baso # (Auto) 0.0 Abs Immat Gran (auto) 0.04 H Absolute Neuts (auto) 5.9 Absolute Nucleated RBC 0.0 Nucleated RBC % 0.0 % Immature Plt Fraction 2.
--- NOTE | 2022-09-12 09:00 | WPDUROPN2 ---
Progress Note: A&P Assessment and Plan (1) Retention, urine: Code(s): R33.9 - Retention of urine, unspecified Status: Acute Assessment and Plan: Urinary retention with bladder volume of 2 L suggest underlying hypotonic detrusor. Recent cystoscopy in June 2022 showed no significant bladder outlet obstruction Had a discussion with patient and he will go home with an indwelling catheter. We will arrange outpatient urodynamics Subjective Subjective Date/Time Seen: 09/12/22 09:00 Tolerating catheter Review of Systems Cardiovascular: Cardiovascular: Denies chest pain, Denies lightheadedness, Denies palpitations and Denies dyspnea Respiratory: Respiratory: Denies dyspnea Gastrointestinal: Gastrointestinal: Denies diarrhea, Denies nausea and Denies vomiting Genitourinary: Genitourinary: Denies hematuria and Denies dysuria Endocrine: Endocrine: Denies palpitations Exam Const: General: no acute distress Resp: Effort & Inspection: normal respiratory effort GI: Inspection: non-distended GI Palp: No abdominal tenderness and No Guarding due to palpation present (GI) Auscultation: normal bowel sounds Urinary Catheter: Urinary Catheter: patent and draining and urine clear Objective Data Vital Signs Vital Signs: Vital Signs - 24 hr 09/11/22 09:13 09/11/22 09:13 09/11/22 09:15 Temperature Pulse Rate 71 71 99 Respiratory Rate Blood Pressure Pulse Oximetry Oxygen Delivery 09/11/22 09:15 09/11/22 12:00 09/11/22 11:40 Temperature Pulse Rate 80 Respiratory Rate Blood Pressure Pulse Oximetry Oxygen Delivery Room Air Room Air 09/11/22 14:40 09/11/22 14:50 09/11/22 16:00 Temperature 98.0 F Pulse Rate 64 75 Respiratory Rate 14 Blood Pressure 113/54 L Pulse Oximetry 97 Oxygen Delivery Room Air 09/11/22 21:41 09/11/22 22:31 09/11/22 22:20 Temperature 98.6 F Pulse Rate 75 75 Respiratory Rate 18 Blood Pressure 149/69 H Pulse Oximetry 98 Oxygen Delivery Room Air 09/11/22 20:00 09/12/22 00:00 09/12/22 04:00 Temperature Pulse Rate 78 93 98 Respiratory Rate Blood Pressure Pulse Oximetry Oxygen Delivery 09/12/22 05:09 09/12/22 08:28 Temperature 98.5 F Pulse Rate 60 60 Respiratory Rate 18 Blood Pressure 101/51 L Pulse Oximetry 90 Oxygen Delivery Intake/Output Intake/Output: Intake & Output 09/09/22 09/10/22 09/11/22 09/12/22 23:59 23:59 23:59 23:59 Intake Total 2590 5270 Output Total 1999 700 20 Balance 590 4570 -20 Meds/Results Medications: Active Medications Generic Name Dose Route Start Last Admin Trade Name Freq PRN Reason Stop Dose Admin Albuterol 2 puff 09/10/22 16:24 Albuterol Sulfate (*Sp) Aerosol 1 Puff INHALATION Q4HR PRN Shortness Of Breath Or Wheezing Aspirin 81 mg 09/11/22 09:00 09/12/22 08:29 Aspirin 81 Mg Enteric Tablet PO 81 mg QAM SUZAN Administration Cilostazol 100 mg 09/11/22 09:00 09/12/22 08:29 Cilostazol 100 Mg Tablet PO 100 mg DAILY SUZAN Administration Diltiazem HCl 60 mg 09/10/22 14:00 09/12/22 05:43 Diltiazem Hcl 60 Mg Tablet PO 60 mg Q8HR SUZAN Administration Escitalopram Oxalate 20 mg 09/11/22 09:00 09/12/22 08:28 Escitalopram Oxalate 10 Mg Tablet PO 20 mg DAILY SUZAN Administration Finasteride 5 mg 09/11/22 09:00 09/12/22 08:29 Finasteride 5 Mg Tablet PO 5 mg QAM SUZAN Administration Fish Oil 1 gm 09/11/22 09:00 09/12/22 08:28 [place] 3 Polyunsat Fatty Acids 1 Gm Cap PO 1 gm QAM SUZAN Administration Heparin Sodium (Porcine) 5,000 units 09/10/22 21:00 09/12/22 08:29 Heparin Sodium 5,000 Units/Ml Vial SUB-Q 5,000 units Q12HR SUZAN Administration Home Med 4 each 09/10/22 21:00 09/12/22 08:32 Home Medication-Clinical Trial [id number] Capsule 3 Mg Capsule PO 10/10/22 20:59 4 each Q12HR SUZAN Administration Ceftriaxone Sodium/Dextrose 1 gm in
[2022-09-12] MEDS: SODIUM CHLORIDE 0.9% IV 500 ML IV CONT (09:22)
[2022-09-12 13:28] LABS: Sodium 130 mmol/L (137-145)
[2022-09-12 14:00] VITALS: BP 106/53; PULSE 60; RESP 18; TEMP 36.6; O2SAT 92
--- NOTE | 2022-09-18 08:21 | PC.NURSE ---
Blood cx are negative
== END 2022-09-12 15:50 | disposition home or self-care (01) | DRG 871 ==
LOC: ANHED 09-10 03:28 → ANH3MEDSUR 09-10 04:20 → ANH2MED 09-10 16:56 → ANH3MEDSUR 09-13 13:46
PROVIDERS: Internal Medicine Critical Care Medicine; Nurse Practitioner Family; Physician Assistant; Admitting Provider Internal Medicine; Emergency Provider Emergency Medicine; PCP Internal Medicine; Visit Provider Student in an Organized Health Care Education/Training Program
DX: A41.9 Sepsis, unspecified organism (principal); U07.1 COVID-19; K50.90 Crohn's disease, unspecified, without complications; N17.9 Acute kidney failure, unspecified; N30.01 Acute cystitis with hematuria; E87.22 Chronic metabolic acidosis; F03.90 Unspecified dementia, unspecified severity, without behavioral disturbance, psychotic disturbance, mood disturbance, and anxiety; F01.50 Vascular dementia, unspecified severity, without behavioral disturbance, psychotic disturbance, mood disturbance, and anxiety; R41.82 Altered mental status, unspecified; D63.1 Anemia in chronic kidney disease; D50.9 Iron deficiency anemia, unspecified; E53.8 Deficiency of other specified B group vitamins; E78.5 Hyperlipidemia, unspecified; F32.A Depression, unspecified; I25.10 Atherosclerotic heart disease of native coronary artery without angina pectoris; I48.91 Unspecified atrial fibrillation; I73.9 Peripheral vascular disease, unspecified; I12.9 Hypertensive chronic kidney disease with stage 1 through stage 4 chronic kidney disease, or unspecified chronic kidney disease; M10.9 Gout, unspecified; M19.90 Unspecified osteoarthritis, unspecified site; N18.30 Chronic kidney disease, stage 3 unspecified; N40.1 Benign prostatic hyperplasia with lower urinary tract symptoms; R33.8 Other retention of urine; R56.9 Unspecified convulsions; R74.01 Elevation of levels of liver transaminase levels; R14.0 Abdominal distension (gaseous); Z79.82 Long term (current) use of aspirin; Z98.41 Cataract extraction status, right eye; Z98.42 Cataract extraction status, left eye; Z90.49 Acquired absence of other specified parts of digestive tract; Z95.1 Presence of aortocoronary bypass graft; Z95.820 Peripheral vascular angioplasty status with implants and grafts; Z66 Do not resuscitate
CPT/HCPCS: 36415; 51703; 70450; 71046; 74018; 74176; 80053; 80074; 81001; 83605; 83735; 84295; 85025; 85055; 85610; 85730; 87040; 87086; 87088; 87636; 93005; 93306; 96361; 96365; 97161; 97165; 99285; A9270; G0378; J0696; J1644; J3370; J3475; J7030; J7040; J7120

== ENCOUNTER 2022-09-13 12:52 | Inpatient (IN) | payer MEDICARE, SELFPAY ==
[2022-09-13] VITALS (25 sets, daily range): BP systolic 84–134; BP diastolic 47–91; PULSE 82–103; RESP 12–25; TEMP 37–38.1; O2SAT 95–100; BMI 19.1
--- NOTE | ~2022-09-13 | XR_ITS ---
Portable chest x-ray Comparison: 09/09/2022 Clinical History: Cough Findings: Lungs are clear, without focal consolidation or pleural effusion. Cardiomediastinal silho uette is stable, status post CABG. Bones and soft tissues are unremarkable. Impression: Clear lungs. Reviewed, dictated and finalized at location . INE SETTER Impression: Clear lungs.
--- NOTE | 2022-09-13 13:27 | ED.GENADULT ---
HPI - General Adult General Chief complaint: Fever Stated complaint: fever Time Seen by Provider: 09/13/22 13:08 Source: RN notes reviewed History of Present Illness HPI narrative: Patient presents emergency department from home for fever. Patient was recently admitted to [facility] and discharged yesterday had had COVID as well as urinary retention at that time the patient had been on antibiotics in the hospital but his urine culture had come back as mixed damion and antibiotics have been stopped when he returned home. Patient been doing well yesterday but this morning developed a temperature up to 100.5 his gave 1000 g of Tylenol approximately 1230 and EMS was called to transfer the patient the patient does note feeling weak he denies any pain of any kind he denies any chest pain shortness of breath abdominal pain nausea vomiting or any other symptoms Related Data Home Medications Medication Instructions Recorded Confirmed Lactobacillus 1 cap PO DAILY 03/21/22 09/10/22 acidophilus-Bifidobac.animalis 2.5 billion cell capsule (Daily Probiotic) amlodipine 5 mg tablet 2.5 mg PO BID 03/21/22 08/07/22 aspirin 81 mg tablet 81 mg PO DAILY 03/21/22 09/10/22 atorvastatin 10 mg tablet 1 tablet PO DAILY 03/21/22 09/10/22 cilostazol 100 mg tablet 1 tablet PO DAILY 03/21/22 09/10/22 coenzyme Q10 10 mg tablet 20 mg PO DAILY 03/21/22 09/10/22 escitalopram oxalate 20 mg tablet 1 tablet PO DAILY 03/21/22 09/10/22 irbesartan 150 mg tablet 150 mg PO DAILY 03/21/22 09/10/22 metoprolol tartrate 25 mg tablet 12.5 mg PO BID 03/21/22 09/10/22 multivit with minerals-iron 18 1 tablet PO DAILY 03/21/22 09/10/22 mg-folic ac 400 mcg-vit K 25 mcg tablet (Adults Multivitamin) omega-3 fatty acids 1 cap PO DAILY 03/21/22 09/10/22 cyanocobalamin (vitamin B-12) 1,000 mcg IM MONTHLY 05/18/22 09/10/22 1,000 mcg/mL injection solution Clinical Trial Am Medication 12 mg PO DAILY 08/07/22 09/10/22 [id number] Capsule Clinical Trial Pm Medication 12 mg PO HS 08/07/22 09/10/22 [id number] Capsule allopurinol 100 mg tablet 100 mg PO DAILY 08/07/22 08/07/22 prednisolone acetate 1 % eye 1 drp LEFT EYE TID 08/11/22 08/11/22 drops,suspension Allergies Allergy/AdvReac Type Severity Reaction Status Date / Time No Known Allergies Allergy Verified 05/17/22 23:15 Review of Systems Review of Systems: Gen.: Reports fever ENT: Denies congestion Respiratory: Denies shortness of breath or cough CV: Denies chest pain or palpitations GI: Denies abdominal pain nausea, emesis or diarrhea reports chronic indwelling Babin catheter Musculoskeletal: Denies back pain or muscle pain Neuro: Denies numbness, tingling, weakness or focal weakness Skin: Denies rash Except as documented, all other systems reviewed and negative [facility] Past Medical History Medical History B12 deficiency Benign prostatic hyperplasia Chronic anemia Chronic kidney disease, stage 3 Coronary artery disease Crohn's disease Depression Gout Hyperlipidemia Hypertension Iron deficiency anemia Kidney stones Osteoarthritis Peripheral vascular disease Seizures Vascular dementia Surgical History Surgical History History of bilateral cataract extraction History of cholecystectomy History of coronary artery bypass graft History of lithotripsy History of partial colectomy X2 for to bowel obstructions and fistula secondary to Crohn's disease. History of vascular surgery Bilateral lower extremity stents. Family History Family History Father Myocardial infarct Cerebrovascular accident Mother Breast cancer Sibling Crohn's disease Social History Social History Social History: Surrogate decision maker: Sarah Oreilly, spouse. Code statu
[2022-09-13 13:58] LABS: Basophils Percent Auto 0.4 % (0.2-1.2); Eosinophils Absolute Auto 0.1 K/mm3 (0-0.3); Eosinophils Percent Auto 2.4 % (0-4.4); Hematocrit 23.3 % (42.0-52.0); Hemoglobin 7.4 g/dL (14.0-18.0); Immature Granulocyte Absolute 0.03 K/mm3 (0.00-0.031); Immature Granulocyte Percent A 0.6 % (0-0.5); Lymphocytes Absolute Auto 0.35 K/mm3 (0.9-3.2); Lymphocytes Percent Auto 7.1 % (18.3-44.2); Mean Corpuscular HGB Conc 31.8 g/dl (32-36); Mean Corpuscular Hemoglobin 31.8 pg (26-34); Mean Platelet Volume 10.4 fl (7.4-10.4); Monocytes Absolute Auto 0.6 K/mm3 (0.1-0.6); Neutrophils Absolute Auto 3.8 K/mm3 (1.3-6.7); Neutrophils Percent Auto 76.5 % (45.5-73.1); Platelet Count Result 121 k/mm3 (150-375); Red Blood Count 2.33 M/mm3 (4.6-6.20); Red Cell Distribution Width 14.7 % (11.5-14.5); White Blood Count 4.9 K/mm3 (4.5-10.0)
[2022-09-13] MEDS: SODIUM CHLORIDE 0.9% IV 1,000 ML 999 ML IV CONT (13:59)
[2022-09-13 14:08] LABS: Lactic Acid Reflex 0.8 mmol/L (0.7-2.0)
[2022-09-13 14:09] LABS: Alanine Aminotransferase 97 U/L (6-50); Albumin Level 2.2 g/dL (3.5-5.1); Alkaline Phosphatase 84 U/L (38-126); Anion Gap -2 mmol/L (8-16); Aspartate Amino Transferase 29 U/L (17-59); Bilirubin,Total 0.6 mg/dL (0.2-1.3); Blood Urea Nitrogen 18 mg/dL (9-20); Calcium 6.4 mg/dL (8.4-10.2); Carbon Dioxide 23 mmol/L (22-30); Chloride 110 mmol/L (98-107); Estimated CRCL calculation 37 ml/min; Estimated Glomerular Filt Rate 49; Glucose 90 mg/dL (65-110); INR 1.4; Partial Thromboplastin Time 33.9 SECONDS (22.3-36.8); Potassium 3.6 mmol/L (3.4-5.0); Prothrombin Time 16.8 Seconds (11.1-14.7); Sodium 131 mmol/L (137-145)
[2022-09-13 15:09] LABS: Add Urine Microscopic? YES; Appearance Urine Cloudy (Clear); Bilirubin Urine Negative (Negative); Blood Urine 1+ (Negative); Color Urine Light Yellow (Yellow); Glucose Urine UA Negative (Negative); Ketones Urine Negative (Negative); Leukocyte Esterase Ur 2+ LEU/UL (Negative); Nitrate Urine Negative (Negative); Protein Urine Trace mg/dL (Negative); Urobilinogen Urine 0.2 mg/dL (<2.0)
[2022-09-13 15:23] LABS: Amorphous Sediment Urine Few; Bacteria Urine Trace /hpf; Budding Yeast Urine Present /hpf; Mucus Urine Rare /lpf; RBC Urine 21-50 /hpf (0-2); Squamous Epithelial Cell Urine Rare /hpf (Few); WBC Clumps Urine Present /HPF; WBC Urine >75 /hpf
--- NOTE | 2022-09-13 16:30 | PM.IMHP ---
H&P: HPI History of Present Illness Date/Time: 09/13/22 16:30 Chief Complaint: Fever. Narrative: This is a 77-year-old male with vascular dementia, hypertension, peripheral vascular disease, coronary artery disease, paroxysmal atrial fibrillation, peripheral vascular disease, chronic kidney disease, anemia, Crohn's disease, and other comorbidities who presented to the emergency department for evaluation of a fever. He is a fair historian and some of the following history is obtained from his Sarah who is at bedside, with the patient's permission. He is known to myself and the hospitalist service from 2 recent admissions. He was admitted on 08/07/2022 with influenza and atrial fibrillation with rapid ventricular response. He was admitted once again on 09/10/2022 with sepsis, COVID, urinary tract infection, and urinary retention. He was initially treated with antibiotics however those were discontinued as his urine culture came back growing normal damion. He was discharged home with Babin catheter in place and he returned home yesterday evening. Thereafter he was fatigued and he went to bed early but otherwise seemed okay. When he got up this morning he once again had a fever and felt achy and he came back in for evaluation. He continues to have a mild nonproductive cough. He denies headache and neck ache. He has not had chest pain or shortness a breath. He denies nausea, vomiting, and diarrhea. He has not had any abdominal or low back pain. Temperature was 100.5? on arrival and his urine is once again concerning for UTI with 2+ leukocyte esterase, trace bacteria, and WBC with clumps. He tested positive for COVID however was positive for the same with his last stay. Chest x-ray was unremarkable today. Review of Systems Review of Systems: Twelve systems were reviewed and are negative except for as per HPI. [facility] Past Medical History Medical History B12 deficiency Benign prostatic hyperplasia Chronic anemia Chronic kidney disease, stage 3 Coronary artery disease Crohn's disease Depression Gout Hyperlipidemia Hypertension Iron deficiency anemia Kidney stones Osteoarthritis Peripheral vascular disease Seizures Vascular dementia Surgical History Surgical History History of bilateral cataract extraction History of cholecystectomy History of coronary artery bypass graft History of lithotripsy History of partial colectomy X2 for to bowel obstructions and fistula secondary to Crohn's disease. History of vascular surgery Bilateral lower extremity stents. Family History Family History Father Myocardial infarct Cerebrovascular accident Mother Breast cancer Sibling Crohn's disease Social History Social History Social History: Surrogate decision maker: Sarah Denilson, spouse. Code status: Do not resuscitate. Smoking packs per day: 2 Smoking cigarettes per day: 40.0 Years smoked: 25 Smoking pack-years: 50.00 Smoking status: Former smoker Tobacco type: cigarettes Second hand tobacco smoke exposure: No Smoking end date: 09/22/86 Alcohol intake: never Drinks per week: 1 Substance use: never Substance use type: does not use Other substance usage details: pt unable to answer confused Lack of Transportation: No Lack of Food: Never True Current Housing: I Have Housing Concerned About Future Housing: No Difficulty Paying Gas/Electric Bills: No Difficulty Paying for Meds: No Currently Unemployed: No Education: Trade/Vocational Certificate Difficulty w/ Childcare or Family Care: No Additional living arrangements comments: The patient lives with his in [place]. Additional occupation/education comments: Retired from [employer]. Spiritual
[2022-09-13 17:50] LABS: Influenza A QL RT-PCR Negative (Negative); Influenza B QL RT-PCR Negative (Negative); SARS-CoV-2 RNA PCR Positive
[2022-09-13] MEDS: SODIUM CHLORIDE 0.9% IV 1,000 ML 100 ML IV CONT (20:37)
--- NOTE | 2022-09-13 21:00 | ADMGEN ---
This patient, Vitaly Oreilly, was admitted to 2 Medical Room 256-. Patient/family oriented to hospital policies and general routines including ID bracelet, bed and alarms, visiting hours, pain management, procedures, bathroom and other care routines, personal items, smoking policy, room service/diet, and visiting hours. Information on how to activate the Rapid Response Team has been discussed. Patient/Family are encouraged to report perceived risks to care and to ask questions if they do not understand what they are told or what they should do.
[2022-09-14] VITALS (7 sets, daily range): BP systolic 101–132; BP diastolic 62–83; PULSE 74–108; RESP 12–20; TEMP 36.4–37; O2SAT 92–98
--- NOTE | 2022-09-14 02:07 | PHAR ---
PHARMACY VERIFIED HOME MEDS: * USE FROM HOME * Clinical Trial Am Medication [id number] Capsule 3 mg capsule TAKE 4 CAPSULES EVERY MORNING * USE FROM HOME * Clinical Trial Pm Medication [id number] Capsule 3 mg capsule TAKE 4 CAPSULES EVERY NIGHT AT BEDTIME
[2022-09-14 05:08] LABS: Basophils Percent Auto 0.4 % (0.2-1.2); Eosinophils Absolute Auto 0.1 K/mm3 (0-0.3); Hematocrit 23.5 % (42.0-52.0); Hemoglobin 7.7 g/dL (14.0-18.0); Immature Granulocyte Absolute 0.02 K/mm3 (0.00-0.031); Immature Granulocyte Percent A 0.4 % (0-0.5); Immature Reticulocyte Fraction 25.9 % (3.0-15.9); Lymphocytes Percent Auto 8.8 % (18.3-44.2); Mean Corpuscular HGB Conc 32.8 g/dl (32-36); Mean Corpuscular Hemoglobin 32.2 pg (26-34); Mean Corpuscular Volume 98.3 fl (80-100); Mean Platelet Volume 9.6 fl (7.4-10.4); Monocytes Absolute Auto 0.6 K/mm3 (0.1-0.6); Monocytes Percent Auto 12.3 % (2.6-8.5); Neutrophils Absolute Auto 3.5 K/mm3 (1.3-6.7); Neutrophils Percent Auto 76.1 % (45.5-73.1); Platelet Count Result 121 k/mm3 (150-375); Red Blood Count 2.39 M/mm3 (4.6-6.20); Red Cell Distribution Width 14.7 % (11.5-14.5); Reticulocyte Hemoglobin Conten 35.7 pg (28.2-35.7); Reticulocyte Percent 3.09 % (0.7-4.3); Reticulocytes Absolute 0.07 B/L (32.2-175.7); White Blood Count 4.6 K/mm3 (4.5-10.0)
[2022-09-14 05:20] LABS: Alanine Aminotransferase 83 U/L (6-50); Alkaline Phosphatase 82 U/L (38-126); Anion Gap 1 mmol/L (8-16); Aspartate Amino Transferase 22 U/L (17-59); Bilirubin,Total 0.5 mg/dL (0.2-1.3); Blood Urea Nitrogen 13 mg/dL (9-20); Calcium 6.3 mg/dL (8.4-10.2); Carbon Dioxide 18 mmol/L (22-30); Chloride 117 mmol/L (98-107); Estimated CRCL calculation 41 ml/min; Estimated Glomerular Filt Rate 59; Glucose 92 mg/dL (65-110); Potassium 3.3 mmol/L (3.4-5.0); Sodium 136 mmol/L (137-145)
[2022-09-14 05:33] LABS: Iron 47 ug/dL (49-181)
[2022-09-14 05:44] LABS: Percent Iron Saturation 32 % (20-50)
[2022-09-14 06:23] LABS: Folic Acid 12.5 ng/mL (2.76->20)
[2022-09-14] MEDS: ACIDOPHILUS/BULGARICUS CHEWABLE TABLET 1 TABLET BY MOUTH (08:30)
[2022-09-14] MEDS: cilostazoL 100 MG TABLET PO (08:30)
[2022-09-14] MEDS: amLODIPine BESYLATE 2.5 MG TABLET PO ×2 (08:30→17:09)
[2022-09-14] MEDS: ASPIRIN 81 MG ENTERIC TABLET PO (08:30)
[2022-09-14] MEDS: allopurinoL 100 MG TABLET PO (08:30)
[2022-09-14] MEDS: ATORVASTATIN 10 MG TABLET PO (08:30)
[2022-09-14] MEDS: SODIUM BICARBONATE TAB 650 MG TABLET PO ×3 (08:31→17:09)
[2022-09-14] MEDS: dilTIAZem HCL CD 180 MG CAP.ER.24H PO (08:31)
[2022-09-14] MEDS: IRBESARTAN 150 MG TABLET PO (08:31)
[2022-09-14] MEDS: TAMSULOSIN HCL 0.4 MG CAPSULE PO (08:31)
[2022-09-14] MEDS: ESCITALOPRAM OXALATE 10 MG TABLET 20 MG PO (08:31)
[2022-09-14] MEDS: OMEGA 3 POLYUNSAT FATTY ACIDS 1 GM CAP PO (08:31)
[2022-09-14] MEDS: MULTIVITAMINS /C LUTEIN (CENTRUM SILVER) TABLET *BKC 1 TAB PO (08:31)
[2022-09-14] MEDS: POTASSIUM CHLORIDE 20 MEQ TABLET PO (08:31)
[2022-09-14] MEDS: METOPROLOL TARTRATE 12.5 MG TABLET PO ×2 (08:31→21:13)
[2022-09-14] MEDS: FINASTERIDE 5 MG TABLET PO (08:31)
--- NOTE | 2022-09-14 13:58 | PM.IMPN ---
Progress Note: A&P Assessment and Plan (1) Fever: Code(s): R50.9 - Fever, unspecified Status: Acute Assessment and Plan: Low-grade fever on admission 100.5, remaining afebrile since admission. May be related to COVID. Urine is abnormal, however recent urine culture with growth of normal damion and may be abnormal due to indwelling Babin. Blood cultures are pending. Plan as below (2) Abnormal urinalysis: Code(s): R82.90 - Unspecified abnormal findings in urine Status: Acute Assessment and Plan: Recent admission for same, started on Rocephin which was discontinued following negative urine culture. May be related to indwelling Babin. Continue IV ceftriaxone at this time pending urine culture results. Tailor antibiotics accordingly (3) COVID-19: Code(s): U07.1 - COVID-19 Status: Acute Assessment and Plan: COVID PCR initially positive on 09/10. he has no oxygen requirement, therefore no indication for remdesivir for dexamethasone. supportive care. Continue isolation precautions (4) Chronic kidney disease, stage 3: Code(s): N18.30 - Chronic kidney disease, stage 3 unspecified Status: Chronic Assessment and Plan: Renal function is stable on review of previous labs. continue to monitor BMP (5) Chronic anemia: Code(s): D64.9 - Anemia, unspecified Status: Chronic Assessment and Plan: Slight decline from baseline with hemoglobin 7.7 today. Iron studies reviewed with mildly decreased iron stores, normal B12 folate. Continue home cyanocobalamin. Monitor H&H closely (6) Urinary retention: Code(s): R33.9 - Retention of urine, unspecified Status: Acute Assessment and Plan: addressed at prior hospitalization, patient was seen in consultation by Urology. 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 patient instructed to follow-up with urology as an outpatient for urodynamics in 1 week. Continue with Babin catheter. Continue tamsulosin (7) Crohn's disease: Qualifiers: Gastrointestinal tract location: unspecified location Digestive disease complication type: without complication Qualified Code(s): K50.90 - Crohn's disease, unspecified, without complications Code(s): K50.90 - Crohn's disease, unspecified, without complications Status: Chronic Assessment and Plan: No acute issues. Continue with home medication which pt is taking as part of clinical trial at [facility] (8) Hypertension: Qualifiers: Hypertension type: primary hypertension Qualified Code(s): I10 - Essential (primary) hypertension Code(s): I10 - Essential (primary) hypertension Status: Chronic Assessment and Plan: Blood pressures were reviewed and they are stable. Continue irbesartan and metoprolol Subjective Date/time seen: 09/14/22 13:58 Interval history: Date of service: 09/14/2022 Vitaly Oreilly is a 77-year-old male with a history of CKD, BPH, B12 deficiency, CAD, Crohn's disease, hypertension, hyperlipidemia, iron deficiency anemia, peripheral vascular disease, vascular dementia, and recent admission 09/10-09/12 for urinary retention and COVID who is seen in follow-up for suspected UTI. Patient is a fair historian. He states that he is feeling better. His main complaint is sinus congestion. He denies shortness of breath or cough. No chest pain. No issues with his Babin catheter. Denies abdominal pain. No nausea, vomiting, fever, or chills. Able to ambulate to the bathroom today with assistance. Review of Systems Review of Systems: All systems reviewed & are unremarkable except as noted in HPI and below Exam Narrative: General: Well-nourished, well-appearing 77-year-old male, sitting up in bed, comfortable, NARD Neuro: awake, alert and oriented x3, speech clear, no focal neuro deficits noted, exhibits confusion HEENMT: normocephalic, atraumatic, EOMI,
[2022-09-14] MEDS: LOPERAMIDE HCL 2 MG CAPSULE PO (15:40)
[2022-09-15 03:43] VITALS: BP 136/85; PULSE 105; RESP 18; TEMP 36.4; O2SAT 100
[2022-09-15 05:45] LABS: Hematocrit 25.5 % (42.0-52.0); Hemoglobin 8.1 g/dL (14.0-18.0); Mean Corpuscular HGB Conc 31.8 g/dl (32-36); Mean Corpuscular Volume 100.8 fl (80-100); Mean Platelet Volume 9.8 fl (7.4-10.4); Platelet Count Result 145 k/mm3 (150-375); Red Blood Count 2.53 M/mm3 (4.6-6.20)
[2022-09-15 05:52] LABS: Anion Gap 0 mmol/L (8-16); Blood Urea Nitrogen 10 mg/dL (9-20); Calcium 6.8 mg/dL (8.4-10.2); Carbon Dioxide 19 mmol/L (22-30); Chloride 112 mmol/L (98-107); Estimated CRCL calculation 42 ml/min; Estimated Glomerular Filt Rate 59; Glucose 81 mg/dL (65-110); Potassium 3.2 mmol/L (3.4-5.0); Sodium 131 mmol/L (137-145)
[2022-09-15] MEDS: POTASSIUM CHLORIDE 20 MEQ TABLET 40 MEQ PO (10:08)
[2022-09-15] MEDS: SODIUM BICARBONATE TAB 650 MG TABLET PO ×2 (10:09→13:31)
[2022-09-15] MEDS: OMEGA 3 POLYUNSAT FATTY ACIDS 1 GM CAP PO (10:09)
[2022-09-15] MEDS: ACIDOPHILUS/BULGARICUS CHEWABLE TABLET 1 TABLET BY MOUTH (10:09)
[2022-09-15] MEDS: MULTIVITAMINS /C LUTEIN (CENTRUM SILVER) TABLET *BKC 1 TAB PO (10:15)
[2022-09-15] MEDS: ESCITALOPRAM OXALATE 10 MG TABLET 20 MG PO (10:15)
[2022-09-15] MEDS: amLODIPine BESYLATE 2.5 MG TABLET PO (10:16)
[2022-09-15] MEDS: dilTIAZem HCL CD 180 MG CAP.ER.24H PO (10:16)
[2022-09-15] MEDS: IRBESARTAN 150 MG TABLET PO (10:17)
[2022-09-15] MEDS: allopurinoL 100 MG TABLET PO (10:17)
[2022-09-15] MEDS: ATORVASTATIN 10 MG TABLET PO (10:17)
[2022-09-15] MEDS: TAMSULOSIN HCL 0.4 MG CAPSULE PO (10:17)
[2022-09-15] MEDS: cilostazoL 100 MG TABLET PO (10:17)
[2022-09-15] MEDS: ASPIRIN 81 MG ENTERIC TABLET PO (10:17)
[2022-09-15] MEDS: FINASTERIDE 5 MG TABLET PO (10:18)
[2022-09-15 10:29] VITALS: BP 104/60
--- NOTE | 2022-09-15 13:03 | P.DS_ITS ---
DS: Admitting Diagnosis Discharge Date 09/15/2022 Admitting Diagnosis COVID-19 DS: Discharge Diagnosis Discharge Diagnosis (1) Fever: Code(s): R50.9 - Fever, unspecified Status: Acute Assessment and Plan: Low-grade fever on admission 100.5, remained afebrile since admission. Most lik carrie due to COVID. Urine culture negative. Blood cultures negative. Plan as below (2) Abnormal urinalysis: Code(s): R82.90 - Unspecified abnormal findings in urine Status: Acute Assessment and Plan: Recent admission for same, started on Rocephin which was discontinued following negative urine culture. May be related to indwelling Babin. Repeat urine culture collected on 09/13 with no growth, therefore antibiotics discontinued. Continue outpatient urology follow-up for urodynamics (3) COVID-19: Code(s): U07.1 - COVID-19 Status: Acute Assessment and Plan: COVID PCR initially positive on 09/10. He had no oxygen requirement during admission, therefore no indication for remdesivir or dexamethasone. Supportive care provided. Isolation precautions continued. (4) Chronic kidney disease, stage 3: Code(s): N18.30 - Chronic kidney disease, stage 3 unspecified Status: Chronic Assessment and Plan: Renal function remained stable on review of previous labs. (5) Chronic anemia: Code(s): D64.9 - Anemia, unspecified Status: Chronic Assessment and Plan: Slight decline from baseliney. Iron studies reviewed with mildly decreased iron stores, normal B12 folate. Continue home cyanocobalamin. H&H remained stable (6) Urinary retention: Code(s): R33.9 - Retention of urine, unspecified Status: Acute Assessment and Plan: Addressed at prior hospitalization, patient was seen in consultation by Urology. 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 patient instructed to follow-up with urology as an outpatient for urodynamics in 1 week. Continue with Babin catheter. Continue tamsulosin (7) Crohn's disease: Qualifiers: Gastrointestinal tract location: unspecified location Digestive disease complication type: without complication Qualified Code(s): K50.90 - Crohn's disease, unspecified, without complications Code(s): K50.90 - Crohn's disease, unspecified, without complications Status: Chronic Assessment and Plan: No acute issues. Continue with home medication which pt is taking as part of clinical trial at [facility] (8) Hypertension: Qualifiers: Hypertension type: primary hypertension Qualified Code(s): I10 - Essential (primary) hypertension Code(s): I10 - Essential (primary) hypertension Status: Chronic Assessment and Plan: Blood pressures were reviewed and were stable. Continue irbesartan and metoprolol DS: Summary Hospital Course Hospital Course: Varun
--- NOTE | 2022-09-15 13:03 | PM.DS ---
DS: Admitting Diagnosis Discharge Date 09/15/2022 Admitting Diagnosis COVID-19 DS: Discharge Diagnosis Discharge Diagnosis (1) Fever: Code(s): R50.9 - Fever, unspecified Status: Acute Assessment and Plan: Low-grade fever on admission 100.5, remained afebrile since admission. Most likely due to COVID. Urine culture negative. Blood cultures negative. Plan as below (2) Abnormal urinalysis: Code(s): R82.90 - Unspecified abnormal findings in urine Status: Acute Assessment and Plan: Recent admission for same, started on Rocephin which was discontinued following negative urine culture. May be related to indwelling Babin. Repeat urine culture collected on 09/13 with no growth, therefore antibiotics discontinued. Continue outpatient urology follow-up for urodynamics (3) COVID-19: Code(s): U07.1 - COVID-19 Status: Acute Assessment and Plan: COVID PCR initially positive on 09/10. He had no oxygen requirement during admission, therefore no indication for remdesivir or dexamethasone. Supportive care provided. Isolation precautions continued. (4) Chronic kidney disease, stage 3: Code(s): N18.30 - Chronic kidney disease, stage 3 unspecified Status: Chronic Assessment and Plan: Renal function remained stable on review of previous labs. (5) Chronic anemia: Code(s): D64.9 - Anemia, unspecified Status: Chronic Assessment and Plan: Slight decline from baseliney. Iron studies reviewed with mildly decreased iron stores, normal B12 folate. Continue home cyanocobalamin. H&H remained stable (6) Urinary retention: Code(s): R33.9 - Retention of urine, unspecified Status: Acute Assessment and Plan: Addressed at prior hospitalization, patient was seen in consultation by Urology. 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 patient instructed to follow-up with urology as an outpatient for urodynamics in 1 week. Continue with Babin catheter. Continue tamsulosin (7) Crohn's disease: Qualifiers: Gastrointestinal tract location: unspecified location Digestive disease complication type: without complication Qualified Code(s): K50.90 - Crohn's disease, unspecified, without complications Code(s): K50.90 - Crohn's disease, unspecified, without complications Status: Chronic Assessment and Plan: No acute issues. Continue with home medication which pt is taking as part of clinical trial at [facility] (8) Hypertension: Qualifiers: Hypertension type: primary hypertension Qualified Code(s): I10 - Essential (primary) hypertension Code(s): I10 - Essential (primary) hypertension Status: Chronic Assessment and Plan: Blood pressures were reviewed and were stable. Continue irbesartan and metoprolol DS: Summary Hospital Course Hospital Course: Date of admission: 09/13/2022 Date of discharge: 09/15/2022 Vitaly Oreilly is a 77-year-old male with a history of CKD, BPH, B12 deficiency, CAD, Crohn's disease, hypertension, hyperlipidemia, iron deficiency anemia, peripheral vascular disease, vascular dementia, and recent admission 09/10-09/12 for urinary retention and COVID who presented to the emergency department on 09/13/2022 with complaints of fever up to 100.5. On presentation to the ED, BP soft with additional vital signs stable, hemoglobin 7.4, hematocrit 23.3, additional laboratory workup unremarkable, CXR with no acute cardiopulmonary findings. He was admitted to the hospitalist service for further evaluation and management. Please see above for further details. Urine culture found to be negative and antibiotics were discontinued. Patient found to have COVID, however was asymptomatic and had no oxygen requirement. Remained afebrile >48 hours. Patient was found to his baseline state of health. Discussed with patient's /POA via phone to provide updates on hospita
[2022-09-15 14:00] VITALS: BP 130/78; PULSE 100; RESP 18; TEMP 36.4; O2SAT 100
== END 2022-09-15 15:35 | disposition home health service (06) | DRG 178 ==
LOC: ANHED 16:36 → ANH3MEDSUR 17:50 → ANH2MED 19:31
PROVIDERS: Physician Assistant; Admitting Provider Student in an Organized Health Care Education/Training Program; Emergency Provider Emergency Medicine; PCP Internal Medicine; Visit Provider Physician Assistant
DX: U07.1 COVID-19 (principal); K50.90 Crohn's disease, unspecified, without complications; R33.9 Retention of urine, unspecified; N40.0 Benign prostatic hyperplasia without lower urinary tract symptoms; I12.9 Hypertensive chronic kidney disease with stage 1 through stage 4 chronic kidney disease, or unspecified chronic kidney disease; N18.30 Chronic kidney disease, stage 3 unspecified; D50.9 Iron deficiency anemia, unspecified; E78.5 Hyperlipidemia, unspecified; F01.50 Vascular dementia, unspecified severity, without behavioral disturbance, psychotic disturbance, mood disturbance, and anxiety; M19.90 Unspecified osteoarthritis, unspecified site; I73.9 Peripheral vascular disease, unspecified; E53.8 Deficiency of other specified B group vitamins; I48.0 Paroxysmal atrial fibrillation; R82.90 Unspecified abnormal findings in urine; Z66 Do not resuscitate; Z79.82 Long term (current) use of aspirin; Z79.84 Long term (current) use of oral hypoglycemic drugs; Z98.42 Cataract extraction status, left eye; Z98.41 Cataract extraction status, right eye; Z90.49 Acquired absence of other specified parts of digestive tract; Z95.1 Presence of aortocoronary bypass graft; Z95.820 Peripheral vascular angioplasty status with implants and grafts; Z87.891 Personal history of nicotine dependence
CPT/HCPCS: 36415; 71045; 80048; 80053; 81001; 82607; 82728; 82746; 83540; 83550; 83605; 84443; 85025; 85027; 85046; 85610; 85730; 86140; 87040; 87086; 87636; 96361; 96365; 97161; 97165; 99285; A9270; G0378; J0696; J7030

== ENCOUNTER 2023-02-14 09:58 | Emergency (ER) | payer MEDICARE, SELFPAY ==
[2023-02-14 10:04] VITALS: BP 103/71; PULSE 109; RESP 16; TEMP 36.4
[2023-02-14 12:15] VITALS: BP 110/73; PULSE 91; RESP 17; O2SAT 99
--- NOTE | 2023-02-14 12:35 | ED.LOWEXIN ---
HPI - Extremity Injury (Lower) General Chief Complaint: Extremity Injury, Lower Stated Complaint: blister on toe Time Seen by Provider: 02/14/23 12:09 Source: patient Mode of arrival: ambulatory Limitations: no limitations History of Present Illness HPI Narrative: Patient is a 77-year-old male who presents to the ED with report of redness to his left foot. 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 He sees a power engineer regularly. He developed a small abscess and saw the power engineer yesterday who lanced the abscess. Patient was given 1 dose of Augmentin after the appointment. Today, noticed redness extending slightly up to the foot. She became concerned that he needed more antibiotics and was unavailable to get into the power engineer so they came here. Patient denies any pain. Denies further drainage. Denies fevers. He has been ambulatory without issue. Related Data Home Medications Medication Instructions Recorded Confirmed Lactobacillus 1 cap PO DAILY 03/21/22 09/13/22 acidophilus-Bifidobac.animalis 2.5 billion cell capsule (Daily Probiotic) amlodipine 5 mg tablet 2.5 mg PO BID 03/21/22 09/13/22 aspirin 81 mg tablet 81 mg PO DAILY 03/21/22 09/13/22 atorvastatin 10 mg tablet 1 tablet PO DAILY 03/21/22 09/13/22 cilostazol 100 mg tablet 1 tablet PO DAILY 03/21/22 09/13/22 coenzyme Q10 10 mg tablet 20 mg PO DAILY 03/21/22 09/13/22 escitalopram oxalate 20 mg tablet 1 tablet PO DAILY 03/21/22 09/13/22 irbesartan 150 mg tablet 150 mg PO DAILY 03/21/22 09/13/22 metoprolol tartrate 25 mg tablet 12.5 mg PO BID 03/21/22 09/13/22 multivit with minerals-iron 18 1 tablet PO DAILY 03/21/22 09/13/22 mg-folic ac 400 mcg-vit K 25 mcg tablet (Adults Multivitamin) omega-3 fatty acids 1 cap PO DAILY 03/21/22 09/13/22 cyanocobalamin (vitamin B-12) 1,000 mcg IM MONTHLY 05/18/22 09/13/22 1,000 mcg/mL injection solution Clinical Trial Am Medication 12 mg PO DAILY 08/07/22 09/13/22 [id number] Capsule Clinical Trial Pm Medication 12 mg PO HS 08/07/22 09/13/22 [id number] Capsule allopurinol 100 mg tablet 100 mg PO DAILY 08/07/22 09/13/22 loperamide 2 mg capsule 2 mg PO Q6H PRN Diarrhea 09/13/22 09/13/22 Allergies Allergy/AdvReac Type Severity Reaction Status Date / Time No Known Allergies Allergy Verified 05/17/22 23:15 Review of Systems Review of Systems: CONSTITUTIONAL: Denies fever, chills, or sweats. SKIN: See HPI. MUSCULOSKELETAL: See HPI. NEUROLOGIC: Denies tingling, numbness, or weakness. All systems reviewed & are unremarkable except as noted in HPI and below PMFSH Past Medical History Medical History B12 deficiency Benign prostatic hyperplasia Chronic anemia Chronic kidney disease, stage 3 Coronary artery disease Crohn's disease Depression Gout Hyperlipidemia Hypertension Iron deficiency anemia Kidney stones Osteoarthritis Peripheral vascular disease Seizures Vascular dementia Surgical History Surgical History History of bilateral cataract extraction History of cholecystectomy History of coronary artery bypass graft History of lithotripsy History of partial colectomy X2 for to bowel obstructions and fistula secondary to Crohn's disease. History of vascular surgery Bilateral lower extremity stents. Family History Family History Father Myocardial infarct Cerebrovascular accident Mother Breast cancer Sibling Crohn's disease Social History Social History Social History: Surrogate decision maker: Sarah Oreilly, spouse. Code status: Do not resuscitate. Smoking packs per day: 2 Smoking cigarettes per day: 40.0 Years smoked: 25 Smoking pack-years: 50.00 Smoking status: Former smoker Tobacco type: cig
[2023-02-14] MEDS: DOXYCYCLINE HYCLATE 100 MG TABLET PO (12:57)
== END 2023-02-14 13:12 | disposition home or self-care (01) ==
LOC: ANHED 12:37
PROVIDERS: Emergency Provider Physician Assistant; PCP Internal Medicine
DX: L03.116 Cellulitis of left lower limb (principal); L02.612 Cutaneous abscess of left foot; F01.50 Vascular dementia, unspecified severity, without behavioral disturbance, psychotic disturbance, mood disturbance, and anxiety; I12.9 Hypertensive chronic kidney disease with stage 1 through stage 4 chronic kidney disease, or unspecified chronic kidney disease; N18.30 Chronic kidney disease, stage 3 unspecified; I25.10 Atherosclerotic heart disease of native coronary artery without angina pectoris; N40.0 Benign prostatic hyperplasia without lower urinary tract symptoms; E78.5 Hyperlipidemia, unspecified; I73.9 Peripheral vascular disease, unspecified; K50.90 Crohn's disease, unspecified, without complications; D50.9 Iron deficiency anemia, unspecified; E53.8 Deficiency of other specified B group vitamins; F32.A Depression, unspecified; M10.9 Gout, unspecified; M19.90 Unspecified osteoarthritis, unspecified site; Z95.1 Presence of aortocoronary bypass graft; Z87.442 Personal history of urinary calculi; Z89.422 Acquired absence of other left toe(s); Z98.42 Cataract extraction status, left eye; Z98.41 Cataract extraction status, right eye; Z90.49 Acquired absence of other specified parts of digestive tract; Z66 Do not resuscitate; Z87.891 Personal history of nicotine dependence; Z79.82 Long term (current) use of aspirin
CPT/HCPCS: 99283; A9270

== ENCOUNTER 2023-04-07 18:12 | Emergency (ER) | payer MEDICARE, SELFPAY ==
[2023-04-07 18:30] VITALS: BP 108/60; PULSE 93; RESP 18; TEMP 37.2; O2SAT 100
[2023-04-07 19:02] VITALS: BP 118/66; PULSE 99; RESP 16; O2SAT 97
--- NOTE | 2023-04-07 19:19 | PC.NURSE ---
Assumed care of pt at this time, report from Melisa ESPINAL
--- NOTE | 2023-04-07 20:07 | ED.MALEGU ---
HPI - Male Genitourinary General Chief complaint: Urogenital-Male Stated complaint: possible UTI Time Seen by Provider: 04/07/23 19:03 History of Present Illness HPI Narrative: This is a 77-year-old male with past history of dementia and urinary retention, brought in by his with complaints of burning with urination and mild confusion. The patient's states today he has been more confused than usual which is consistent with past urinary tract infections. He is also been complaining of some penile burning. He straight caths regularly for history of urinary retention. Related Data Home Medications Medication Instructions Recorded Confirmed Lactobacillus 1 cap PO DAILY 03/21/22 09/13/22 acidophilus-Bifidobac.animalis 2.5 billion cell capsule (Daily Probiotic) amlodipine 5 mg tablet 2.5 mg PO BID 03/21/22 09/13/22 aspirin 81 mg tablet 81 mg PO DAILY 03/21/22 09/13/22 atorvastatin 10 mg tablet 1 tablet PO DAILY 03/21/22 09/13/22 cilostazol 100 mg tablet 1 tablet PO DAILY 03/21/22 09/13/22 coenzyme Q10 10 mg tablet 20 mg PO DAILY 03/21/22 09/13/22 escitalopram oxalate 20 mg tablet 1 tablet PO DAILY 03/21/22 09/13/22 irbesartan 150 mg tablet 150 mg PO DAILY 03/21/22 09/13/22 metoprolol tartrate 25 mg tablet 12.5 mg PO BID 03/21/22 09/13/22 multivit with minerals-iron 18 1 tablet PO DAILY 03/21/22 09/13/22 mg-folic ac 400 mcg-vit K 25 mcg tablet (Adults Multivitamin) omega-3 fatty acids 1 cap PO DAILY 03/21/22 09/13/22 cyanocobalamin (vitamin B-12) 1,000 mcg IM MONTHLY 05/18/22 09/13/22 1,000 mcg/mL injection solution Clinical Trial Am Medication 12 mg PO DAILY 08/07/22 09/13/22 [id number] Capsule Clinical Trial Pm Medication 12 mg PO HS 08/07/22 09/13/22 [id number] Capsule allopurinol 100 mg tablet 100 mg PO DAILY 08/07/22 09/13/22 loperamide 2 mg capsule 2 mg PO Q6H PRN Diarrhea 09/13/22 09/13/22 Allergies Allergy/AdvReac Type Severity Reaction Status Date / Time No Known Allergies Allergy Verified 05/17/22 23:15 Review of Systems Review of Systems: CONSTITUTIONAL: Denies fever, chills, or sweats. CARDIOVASCULAR: Denies chest pain, palpitations, or edema. RESPIRATORY: Denies cough or dyspnea. GASTROINTESTINAL: Denies abdominal pain, nausea, vomiting, or diarrhea. GENITOURINARY: Dysuria denies hematuria. SKIN: Denies rash or itching. MUSCULOSKELETAL: Denies back pain, joint pain, or myalgia. NEUROLOGIC: Mild confusion denies headache, numbness, dizziness, or weakness. PSYCHIATRIC: Denies anxiety or depression. [facility] Past Medical History Medical History B12 deficiency Benign prostatic hyperplasia Chronic anemia Chronic kidney disease, stage 3 Coronary artery disease Crohn's disease Depression Gout Hyperlipidemia Hypertension Iron deficiency anemia Kidney stones Osteoarthritis Peripheral vascular disease Seizures Vascular dementia Surgical History Surgical History History of bilateral cataract extraction History of cholecystectomy History of coronary artery bypass graft History of lithotripsy History of partial colectomy X2 for to bowel obstructions and fistula secondary to Crohn's disease. History of vascular surgery Bilateral lower extremity stents. Family History Family History Father Myocardial infarct Cerebrovascular accident Mother Breast cancer Sibling Crohn's disease Social History Social History Social History: Surrogate decision maker: Sarah Oreilly, spouse. Code status: Do not resuscitate. Smoking packs per day: 2 Smoking cigarettes per day: 40.0 Years smoked: 25 Smoking pack-years: 50.00 Smoking status: Former smoker Tobacco type: cigarettes Second hand tobacco smoke exposure: No Smoking end date: 09/22
[2023-04-07 20:14] LABS: Basophils Percent Auto 0.6 % (0.2-1.2); Eosinophils Absolute Auto 0.1 K/mm3 (0-0.3); Hematocrit 27.6 % (42.0-52.0); Hemoglobin 8.4 g/dL (14.0-18.0); Immature Granulocyte Absolute 0.01 K/mm3 (0.00-0.031); Immature Granulocyte Percent A 0.2 % (0-0.5); Lymphocytes Absolute Auto 1.06 K/mm3 (0.9-3.2); Lymphocytes Percent Auto 16.8 % (18.3-44.2); Mean Corpuscular HGB Conc 30.4 g/dl (32-36); Mean Platelet Volume 9.7 fl (7.4-10.4); Monocytes Absolute Auto 0.6 K/mm3 (0.1-0.6); Neutrophils Absolute Auto 4.5 K/mm3 (1.3-6.7); Neutrophils Percent Auto 71.4 % (45.5-73.1); Platelet Count Result 158 k/mm3 (150-375); Red Cell Distribution Width 13.4 % (11.5-14.5); White Blood Count 6.3 K/mm3 (4.5-10.0)
[2023-04-07 20:24] LABS: Anisocytosis 1+ (NORMAL); Macrocytosis 1+ (NORMAL); Platelet Estimate Adequate (Adequate); Schistocytes None Seen (NORMAL)
[2023-04-07 20:26] LABS: Appearance Urine Clear (Clear); Bacteria Urine None Seen /hpf; Bilirubin Urine Negative (Negative); Blood Urine Negative (Negative); Color Urine Yellow (Yellow); Glucose Urine UA Negative (Negative); Ketones Urine Negative (Negative); Leukocyte Esterase Ur 1+ LEU/UL (Negative); Nitrate Urine Negative (Negative); Non Pathogenic Casts 0-2; Protein Urine Negative (Negative); Specific Grav Ur 1.013 (1.001-1.035); Squamous Epithelial Cell Urine None seen /hpf (Few); Urobilinogen Urine 0.2 mg/dL (<2.0); pH Urine 5.5 (5.0-9.0)
[2023-04-07 20:27] LABS: Add Urine Microscopic? YES
[2023-04-07 20:29] LABS: Alanine Aminotransferase 21 U/L (6-50); Albumin Level 3.3 g/dL (3.5-5.1); Alkaline Phosphatase 227 U/L (38-126); Anion Gap 6 mmol/L (8-16); Aspartate Amino Transferase 37 U/L (17-59); Bilirubin,Total 0.7 mg/dL (0.2-1.3); Blood Urea Nitrogen 23 mg/dL (9-20); Calcium 7.1 mg/dL (8.4-10.2); Carbon Dioxide 25 mmol/L (22-30); Chloride 103 mmol/L (98-107); Estimated Glomerular Filt Rate 54; Glucose 101 mg/dL (65-110); Potassium 3.4 mmol/L (3.4-5.0); Sodium 134 mmol/L (137-145)
[2023-04-07] MEDS: SULFAMETHOXAZOLE/TRIMETHOPRIM 800/160 MG DS TABLET 1 TAB PO (20:54)
[2023-04-07 20:59] VITALS: BP 123/69; PULSE 94; RESP 15; O2SAT 100
== END 2023-04-07 21:01 | disposition home or self-care (01) ==
PROVIDERS: Emergency Medicine; Emergency Provider Preventive Medicine Aerospace Medicine; PCP Internal Medicine
DX: N39.0 Urinary tract infection, site not specified (principal); R41.0 Disorientation, unspecified; I12.9 Hypertensive chronic kidney disease with stage 1 through stage 4 chronic kidney disease, or unspecified chronic kidney disease; N18.30 Chronic kidney disease, stage 3 unspecified; D64.9 Anemia, unspecified; I25.10 Atherosclerotic heart disease of native coronary artery without angina pectoris; F32.A Depression, unspecified; Z87.442 Personal history of urinary calculi; M19.90 Unspecified osteoarthritis, unspecified site; G40.909 Epilepsy, unspecified, not intractable, without status epilepticus
CPT/HCPCS: 36415; 80053; 81001; 85025; 87086; 87147; 87181; 87186; 99283; A9270

== ENCOUNTER 2023-05-03 08:26 | Emergency (ER) | payer MEDICARE, SELFPAY ==
[2023-05-03 08:29] VITALS: BP 107/54; PULSE 80; RESP 16; TEMP 36.4; O2SAT 100
--- NOTE | 2023-05-03 09:20 | ED.MALEGU ---
HPI - Male Genitourinary General Chief complaint: Urogenital-Male Stated complaint: UTI Time Seen by Provider: 05/03/23 08:36 History of Present Illness HPI Narrative: This is a 77-year-old male with past history of urinary retention with multiple straight caths at home, UTI, Crohn's disease, who presents to the emergency department with dysuria and difficulty with self-catheterization. The patient's notes overnight, the patient got up multiple times to urinate, had difficulty with self-catheterization and complained of burning. The patient denies abdominal pain, fevers, chills or blood in urine. Related Data Home Medications Medication Instructions Recorded Confirmed Lactobacillus 1 cap PO DAILY 03/21/22 09/13/22 acidophilus-Bifidobac.animalis 2.5 billion cell capsule (Daily Probiotic) amlodipine 5 mg tablet 2.5 mg PO BID 03/21/22 09/13/22 aspirin 81 mg tablet 81 mg PO DAILY 03/21/22 09/13/22 atorvastatin 10 mg tablet 1 tablet PO DAILY 03/21/22 09/13/22 cilostazol 100 mg tablet 1 tablet PO DAILY 03/21/22 09/13/22 coenzyme Q10 10 mg tablet 20 mg PO DAILY 03/21/22 09/13/22 escitalopram oxalate 20 mg tablet 1 tablet PO DAILY 03/21/22 09/13/22 irbesartan 150 mg tablet 150 mg PO DAILY 03/21/22 09/13/22 metoprolol tartrate 25 mg tablet 12.5 mg PO BID 03/21/22 09/13/22 multivit with minerals-iron 18 1 tablet PO DAILY 03/21/22 09/13/22 mg-folic ac 400 mcg-vit K 25 mcg tablet (Adults Multivitamin) omega-3 fatty acids 1 cap PO DAILY 03/21/22 09/13/22 cyanocobalamin (vitamin B-12) 1,000 mcg IM MONTHLY 05/18/22 09/13/22 1,000 mcg/mL injection solution Clinical Trial Am Medication 12 mg PO DAILY 08/07/22 09/13/22 [id number] Capsule Clinical Trial Pm Medication 12 mg PO HS 08/07/22 09/13/22 [id number] Capsule allopurinol 100 mg tablet 100 mg PO DAILY 08/07/22 09/13/22 loperamide 2 mg capsule 2 mg PO Q6H PRN Diarrhea 09/13/22 09/13/22 Allergies Allergy/AdvReac Type Severity Reaction Status Date / Time No Known Allergies Allergy Verified 05/03/23 08:33 Review of Systems Review of Systems: CONSTITUTIONAL: Denies fever, chills, or sweats. CARDIOVASCULAR: Denies chest pain, palpitations, or edema. RESPIRATORY: Denies cough or dyspnea. GASTROINTESTINAL: Denies abdominal pain, nausea, vomiting, or diarrhea. GENITOURINARY: Dysuria, difficulty with self-catheterization denies hematuria. SKIN: Denies rash or itching. MUSCULOSKELETAL: Denies back pain, joint pain, or myalgia. NEUROLOGIC: Denies headache, numbness, dizziness, or weakness. PSYCHIATRIC: Denies anxiety or depression. FORMERLY [facility] Past Medical History Medical History B12 deficiency Benign prostatic hyperplasia Chronic anemia Chronic kidney disease, stage 3 Coronary artery disease Crohn's disease Depression Gout Hyperlipidemia Hypertension Iron deficiency anemia Kidney stones Osteoarthritis Peripheral vascular disease Seizures Vascular dementia Surgical History Surgical History History of bilateral cataract extraction History of cholecystectomy History of coronary artery bypass graft History of lithotripsy History of partial colectomy X2 for to bowel obstructions and fistula secondary to Crohn's disease. History of vascular surgery Bilateral lower extremity stents. Family History Family History Father Myocardial infarct Cerebrovascular accident Mother Breast cancer Sibling Crohn's disease Social History Social History Social History: Surrogate decision maker: Sarah Oreilly, spouse. Code status: Do not resuscitate. Smoking packs per day: 2 Smoking cigarettes per day: 40.0 Years smoked: 25 Smoking pack-years: 50.00 Smoking status: Former smoker Tobacco type: cigarettes Second hand toba
[2023-05-03 09:25] LABS: Basophils Percent Auto 0.7 % (0.2-1.2); Eosinophils Absolute Auto 0.2 K/mm3 (0-0.3); Eosinophils Percent Auto 2.6 % (0-4.4); Hematocrit 28.8 % (42.0-52.0); Hemoglobin 8.8 g/dL (14.0-18.0); Immature Granulocyte Absolute 0.02 K/mm3 (0.00-0.031); Immature Granulocyte Percent A 0.3 % (0-0.5); Lymphocytes Absolute Auto 0.69 K/mm3 (0.9-3.2); Lymphocytes Percent Auto 11.9 % (18.3-44.2); Mean Corpuscular HGB Conc 30.6 g/dl (32-36); Mean Corpuscular Volume 111.2 fl (80-100); Mean Platelet Volume 9.4 fl (7.4-10.4); Monocytes Absolute Auto 0.6 K/mm3 (0.1-0.6); Monocytes Percent Auto 9.8 % (2.6-8.5); Neutrophils Absolute Auto 4.3 K/mm3 (1.3-6.7); Neutrophils Percent Auto 74.7 % (45.5-73.1); Platelet Count Result 155 k/mm3 (150-375); Red Blood Count 2.59 M/mm3 (4.6-6.20); Red Cell Distribution Width 14.6 % (11.5-14.5); White Blood Count 5.8 K/mm3 (4.5-10.0)
[2023-05-03 09:34] LABS: Alanine Aminotransferase 23 U/L (6-50); Albumin Level 3.3 g/dL (3.5-5.1); Alkaline Phosphatase 195 U/L (38-126); Anion Gap 6 mmol/L (8-16); Aspartate Amino Transferase 31 U/L (17-59); Bilirubin,Total 0.4 mg/dL (0.2-1.3); Blood Urea Nitrogen 26 mg/dL (9-20); Calcium 7.5 mg/dL (8.4-10.2); Carbon Dioxide 24 mmol/L (22-30); Chloride 107 mmol/L (98-107); Estimated CRCL calculation 32 ml/min; Estimated Glomerular Filt Rate 42; Glucose 100 mg/dL (65-110); Potassium 3.4 mmol/L (3.4-5.0); Sodium 137 mmol/L (137-145)
[2023-05-03 09:48] LABS: Appearance Urine Clear (Clear); Bacteria Urine 1+ /hpf; Bilirubin Urine Negative (Negative); Blood Urine Negative (Negative); Color Urine Yellow (Yellow); Glucose Urine UA Negative (Negative); Ketones Urine Negative (Negative); Leukocyte Esterase Ur Trace LEU/UL (Negative); Nitrate Urine Positive (Negative); Non Pathogenic Casts 0-2; Protein Urine Negative (Negative); RBC Urine 0-2 /hpf (0-2); Squamous Epithelial Cell Urine None seen /hpf (Few); Urobilinogen Urine 0.2 mg/dL (<2.0); WBC Urine 0-5 /hpf; pH Urine 5.5 (5.0-9.0)
[2023-05-03 09:50] LABS: Add Urine Microscopic? YES
[2023-05-03 10:39] VITALS: BP 109/66; PULSE 82; RESP 20; O2SAT 100
[2023-05-03 11:56] VITALS: BP 113/66; PULSE 79; RESP 18; O2SAT 94
--- NOTE | 2023-05-03 11:58 | PC.NURSE ---
Pt had 2900ml of urine output.
== END 2023-05-03 11:57 | disposition home or self-care (01) ==
PROVIDERS: Emergency Provider Preventive Medicine Aerospace Medicine; PCP Internal Medicine
DX: N39.0 Urinary tract infection, site not specified (principal); N40.1 Benign prostatic hyperplasia with lower urinary tract symptoms; R33.8 Other retention of urine; F01.50 Vascular dementia, unspecified severity, without behavioral disturbance, psychotic disturbance, mood disturbance, and anxiety; I12.9 Hypertensive chronic kidney disease with stage 1 through stage 4 chronic kidney disease, or unspecified chronic kidney disease; N18.30 Chronic kidney disease, stage 3 unspecified; I25.10 Atherosclerotic heart disease of native coronary artery without angina pectoris; I49.3 Ventricular premature depolarization; E53.8 Deficiency of other specified B group vitamins; E78.5 Hyperlipidemia, unspecified; K50.90 Crohn's disease, unspecified, without complications; D50.9 Iron deficiency anemia, unspecified; M10.9 Gout, unspecified; M19.90 Unspecified osteoarthritis, unspecified site; Z66 Do not resuscitate; Z95.1 Presence of aortocoronary bypass graft; Z87.442 Personal history of urinary calculi; Z87.891 Personal history of nicotine dependence; Z98.42 Cataract extraction status, left eye; Z98.41 Cataract extraction status, right eye; Z90.49 Acquired absence of other specified parts of digestive tract; Z79.82 Long term (current) use of aspirin
CPT/HCPCS: 36415; 80053; 81001; 85025; 99283

== ENCOUNTER 2023-06-09 18:29 | Emergency (ER) | payer MEDICARE, SELFPAY ==
[2023-06-09] VITALS (8 sets, daily range): BP systolic 128–135; BP diastolic 82–90; PULSE 97–137; RESP 16–27; TEMP 36.4; O2SAT 98–100
--- NOTE | ~2023-06-09 | XR_ITS ---
EXAMINATION: XR chest 2V DATE: 06/09/2023 19:55 INDICATION: Shortness of breath. TECHNIQUE: Frontal and lateral views of the chest were obtained. COMPARISON: Chest single view 09/13/2022, CT abdomen and pelvis 09/10/2022 FINDINGS: There are small pleural effusions. There are airspace opacities at the lung bases. No pneum othorax. Cardiomegaly is noted. Median sternotomy wires and mediastinal surgical clips are seen, like ly from prior coronary artery bypass grafting. IMPRESSION: 1. Small pleural effusions. 2. Airspace opacities at the lung bases, consistent with atelectasis or less likely pneumonia. 3. Cardiomegaly. Reviewed, dictated and finalized at location E. IMPRESSION: 1. Small pleural effusions. 2. Airspace opacities at the lung bases, consistent with atelectasis or less li mai pneumonia. 3. Cardiomegaly.
--- NOTE | 2023-06-09 19:30 | ECG_ITS ---
Measurements Intervals [place] Rate: 121 P: [place]: 0 QRS: 66 QRSD: 91 T: 68 QT: 313 QTc: 446 Interpretive Statements ATRIAL FIBRILLATION WITH RAPID VENTRICULAR RESPONSE VENTRICULAR PREMATURE COMPLEXES ABNORMAL ECG COMPARED TO ECG 09/10/2022 09:54:03 HEART RATE HAS DECREASED Electronically Signed On 06-10-2023 6:24:31 CDT by Yared Martinez D.O.
[2023-06-09 20:30] LABS: Basophils Percent Auto 0.6 % (0.2-1.2); Eosinophils Absolute Auto 0.2 K/mm3 (0-0.3); Hematocrit 26.4 % (42.0-52.0); Hemoglobin 8.2 g/dL (14.0-18.0); Immature Granulocyte Absolute 0.02 K/mm3 (0.00-0.031); Immature Granulocyte Percent A 0.3 % (0-0.5); Lymphocytes Absolute Auto 0.81 K/mm3 (0.9-3.2); Lymphocytes Percent Auto 12.6 % (18.3-44.2); Mean Corpuscular HGB Conc 31.1 g/dl (32-36); Mean Corpuscular Hemoglobin 33.6 pg (26-34); Mean Corpuscular Volume 108.2 fl (80-100); Monocytes Absolute Auto 0.6 K/mm3 (0.1-0.6); Monocytes Percent Auto 9.7 % (2.6-8.5); Neutrophils Absolute Auto 4.7 K/mm3 (1.3-6.7); Neutrophils Percent Auto 73.8 % (45.5-73.1); Platelet Count Result 174 k/mm3 (150-375); Red Blood Count 2.44 M/mm3 (4.6-6.20); Red Cell Distribution Width 15.9 % (11.5-14.5); White Blood Count 6.4 K/mm3 (4.5-10.0)
--- NOTE | 2023-06-09 20:35 | ED.GENADULT ---
HPI - General Adult General Chief complaint: Shortness of Breath/Dyspnea Stated complaint: SOB Time Seen by Provider: 06/09/23 20:31 History of Present Illness HPI narrative: Patient presents to the emergency department with gradually increasing shortness of breath over the past couple days. He has a history of atrial fibrillation. He has had sinus congestion and has been using Flonase. Denies fevers chills. Denies cough and chest pain. He is accompanied by his . He is unsure if he took his evening blood pressure medications were Related Data Home Medications Medication Instructions Recorded Confirmed Lactobacillus 1 cap PO DAILY 03/21/22 09/13/22 acidophilus-Bifidobac.animalis 2.5 billion cell capsule (Daily Probiotic) amlodipine 5 mg tablet 2.5 mg PO BID 03/21/22 09/13/22 aspirin 81 mg tablet 81 mg PO DAILY 03/21/22 09/13/22 atorvastatin 10 mg tablet 1 tablet PO DAILY 03/21/22 09/13/22 cilostazol 100 mg tablet 1 tablet PO DAILY 03/21/22 09/13/22 coenzyme Q10 10 mg tablet 20 mg PO DAILY 03/21/22 09/13/22 escitalopram oxalate 20 mg tablet 1 tablet PO DAILY 03/21/22 09/13/22 irbesartan 150 mg tablet 150 mg PO DAILY 03/21/22 09/13/22 metoprolol tartrate 25 mg tablet 12.5 mg PO BID 03/21/22 09/13/22 multivit with minerals-iron 18 1 tablet PO DAILY 03/21/22 09/13/22 mg-folic ac 400 mcg-vit K 25 mcg tablet (Adults Multivitamin) omega-3 fatty acids 1 cap PO DAILY 03/21/22 09/13/22 cyanocobalamin (vitamin B-12) 1,000 mcg IM MONTHLY 05/18/22 09/13/22 1,000 mcg/mL injection solution Clinical Trial Am Medication 12 mg PO DAILY 08/07/22 09/13/22 [id number] Capsule Clinical Trial Pm Medication 12 mg PO HS 08/07/22 09/13/22 [id number] Capsule allopurinol 100 mg tablet 100 mg PO DAILY 08/07/22 09/13/22 loperamide 2 mg capsule 2 mg PO Q6H PRN Diarrhea 09/13/22 09/13/22 Allergies Allergy/AdvReac Type Severity Reaction Status Date / Time No Known Allergies Allergy Verified 05/03/23 08:33 Review of Systems Review of Systems: Review of systems negative except what is documented in the [facility] Past Medical History Medical History B12 deficiency Benign prostatic hyperplasia Chronic anemia Chronic kidney disease, stage 3 Coronary artery disease Crohn's disease Depression Gout Hyperlipidemia Hypertension Iron deficiency anemia Kidney stones Osteoarthritis Peripheral vascular disease Seizures Vascular dementia Surgical History Surgical History History of bilateral cataract extraction History of cholecystectomy History of coronary artery bypass graft History of lithotripsy History of partial colectomy X2 for to bowel obstructions and fistula secondary to Crohn's disease. History of vascular surgery Bilateral lower extremity stents. Family History Family History Father Myocardial infarct Cerebrovascular accident Mother Breast cancer Sibling Crohn's disease Social History Social History Social History: Surrogate decision maker: Sarah Oreilly, spouse. Code status: Do not resuscitate. Smoking packs per day: 2 Smoking cigarettes per day: 40.0 Years smoked: 25 Smoking pack-years: 50.00 Smoking status: Former smoker Tobacco type: cigarettes Second hand tobacco smoke exposure: No Smoking end date: 09/22/86 Alcohol intake: never Drinks per week: 1 Substance use: never Substance use type: does not use Other substance usage details: pt unable to answer confused Lack of Transportation: No Lack of Food: Never True Current Housing: I Have Housing Concerned About Future Housing: No Difficulty Paying Gas/Electric Bills: No Difficulty Paying for Meds: No Currently Unemployed: No Education: Trade/Vocational Certifica
[2023-06-09 20:43] LABS: Alanine Aminotransferase 22 U/L (6-50); Albumin Level 3.5 g/dL (3.5-5.1); Alkaline Phosphatase 161 U/L (38-126); Anion Gap 6 mmol/L (8-16); Aspartate Amino Transferase 35 U/L (17-59); Bilirubin,Total 0.5 mg/dL (0.2-1.3); Blood Urea Nitrogen 17 mg/dL (9-20); Calcium 7.8 mg/dL (8.4-10.2); Carbon Dioxide 25 mmol/L (22-30); Chloride 109 mmol/L (98-107); Estimated CRCL calculation 32 ml/min; Estimated Glomerular Filt Rate 42; Glucose 94 mg/dL (65-110); Potassium 3.3 mmol/L (3.4-5.0); Sodium 140 mmol/L (137-145)
[2023-06-09 20:53] LABS: Hypochromasia 1+ (NORMAL); Macrocytosis 1+ (NORMAL); Platelet Estimate Adequate (Adequate); Schistocytes None Seen (NORMAL)
[2023-06-09] MEDS: dilTIAZem HCl INJ 25 MG/5 ML VIAL 15 MG IV PUSH (22:44)
[2023-06-09] MEDS: METOPROLOL TARTRATE 50 MG TAB 25 MG PO (23:03)
[2023-06-10 00:55] VITALS: BP 131/91; PULSE 87; RESP 25; O2SAT 27; O2SAT 97
[2023-06-10] MEDS: FUROSEMIDE INJ 40 MG/4 ML VIAL IV PUSH (02:19)
[2023-06-10 02:26] VITALS: BP 132/70; PULSE 90; RESP 23; TEMP 37; O2SAT 100
== END 2023-06-10 02:27 | disposition home or self-care (01) ==
PROVIDERS: Emergency Medicine; Emergency Provider Emergency Medicine; PCP Internal Medicine
DX: I48.91 Unspecified atrial fibrillation (principal); J90 Pleural effusion, not elsewhere classified; R06.02 Shortness of breath; F01.50 Vascular dementia, unspecified severity, without behavioral disturbance, psychotic disturbance, mood disturbance, and anxiety; I12.9 Hypertensive chronic kidney disease with stage 1 through stage 4 chronic kidney disease, or unspecified chronic kidney disease; N18.30 Chronic kidney disease, stage 3 unspecified; D64.9 Anemia, unspecified; I25.10 Atherosclerotic heart disease of native coronary artery without angina pectoris; I73.9 Peripheral vascular disease, unspecified; E53.8 Deficiency of other specified B group vitamins; E78.5 Hyperlipidemia, unspecified; D50.9 Iron deficiency anemia, unspecified; K50.90 Crohn's disease, unspecified, without complications; N40.0 Benign prostatic hyperplasia without lower urinary tract symptoms; M10.9 Gout, unspecified; M19.90 Unspecified osteoarthritis, unspecified site; F32.A Depression, unspecified; Z66 Do not resuscitate; Z95.1 Presence of aortocoronary bypass graft; Z87.442 Personal history of urinary calculi; Z87.891 Personal history of nicotine dependence; Z98.42 Cataract extraction status, left eye; Z98.41 Cataract extraction status, right eye; Z90.49 Acquired absence of other specified parts of digestive tract; Z79.82 Long term (current) use of aspirin
CPT/HCPCS: 36415; 71046; 80053; 85025; 93005; 96374; 96375; 99284; A9270; J1940

== ENCOUNTER 2023-11-07 14:52 | Inpatient (IN) | payer MEDICARE, SELFPAY ==
[2023-11-07] VITALS (22 sets, daily range): BP systolic 135–144; BP diastolic 84–100; PULSE 89–118; RESP 13–25; TEMP 35.6; O2SAT 95–99
--- NOTE | ~2023-11-07 | XR_ITS ---
EXAMINATION: XR chest 1V Exam Date/Time: 11/07/2023 19:40 REGISTERED NURSE CARDIOVASCULAR ICU HISTORY: cough, chest congestion Comparison: 06/10/2023. RESULT: Lines, tubes, and devices: Intact sternotomy wires. Mediastinal surgical clips. Lungs and pleura: Stable mild-moderate bilateral costophrenic angle blunting. Subsegmental patchy ar eas of airspace disease in the lung bases. Cardiomediastinal silhouette: Stable. Other: No acute osseous or upper abdominal finding. IMPRESSION: Small-moderate bilateral pleural effusions, unchanged. Likely bibasilar atelectasis. Infection not ex cluded. Reviewed, dictated and finalized at location K. STERED NURSE CARDIOVASCULAR ICU IMPRESSION: Small-moderate bilateral pleural effusions, unchanged. Likely bibasilar atelect asis. Infection not excluded.
--- NOTE | ~2023-11-07 | CT_ITS ---
EXAMINATION: CT abdomen pelvis w con DATE: 11/07/2023 20:54 INDICATION: incarcerated va strangulated ventral hernias TECHNIQUE: Computed tomography (CT) of the abdomen and pelvis was performed with 100 mL Omnipaque-350 intravenous contrast. Automated exposure control and iterative reconstruction technique were employe d. The dose-length product was 370.87 mGy-cm. COMPARISON: 09/10/2022; x-ray chest 11/07/2023. FINDINGS: Lower thorax: Cardiomegaly. Coronary artery calcifications. Dependent atelectasis. Moderate bilateral pleural effusions. Liver: Normal. Biliary/Gallbladder: Gallbladder is absent. No bile duct dilation. Pancreas: No mass or duct dilation. Spleen: Normal. Adrenals:No mass. Kidneys: No suspicious mass, obstructing stone, or hydronephrosis. Bilateral cortical thinning and sc arring. GI tract: No small or large bowel dilation. Uncomplicated appearing right colonic anastomosis. Surgic ally absent appendix. Mesentery/Peritoneum: Moderate volume ascites. Retroperitoneum: No mass. Pelvis: The urinary bladder is mostly empty. Soft Tissues: Moderate body wall edema. Multiple small uncomplicated appearing fat-containing ventral hernias. Bones: No acute osseous finding. Diffuse osseous sclerosis. IMPRESSION: Cardiomegaly, with delayed contrast enhancement in the abdomen and pelvis likely secondary to decreas ed cardiac output. Moderate bilateral pleural effusions. Moderate ascites. No bowel containing hernia detected. Moderate body wall edema. Diffuse osseous sclerosis concerning for metastatic disease or myeloproliferative disorder. Reviewed, dictated and finalized at location K. ADER BOX OPERATOR IMPRESSION: Cardiomegaly, with delayed contrast enhancement in the abdomen and pelvis likel y secondary to decreased cardiac output. Moderate bilateral pleural effusions. Moderate ascites. No bowel containing hernia detected. Moderate body wall edema. Diffuse osseous sclerosis concerning for metastatic disease or myeloproliferati ve disorder.
--- NOTE | 2023-11-07 18:45 | ED.ABDPAIN ---
HPI - Abdominal Pain General Chief Complaint: Abdominal Pain <Eve Del Valle PA-C - Last Filed: 11/08/23 19:25> Stated Complaint: medical issues <Eve Del Valle PA-C - Last Filed: 11/08/23 19:25> Time Seen by Provider: 11/07/23 20:01 <Eve Del Valle PA-C - Last Filed: 11/08/23 19:25> Focused HPI: 78 y/o M with a hx of Crohn's and 3 bowel resections, known ventral hernia for a couple years, s/p 2 coronary bypasses reports for evaluation for worsening ventral hernia x1 week. Pt states his ventral hernia has become larger and more painful in the past week with associated nausea and difficulty eating secondary to pain. States he saw a surgeon a few months ago for the ventral hernia and was told to watch and wait. Last BM today and soft. Denies melena or hematochezia, denies obstipation. He is also reporting decreased urine output while self cathing. He has been self cathing for 1 year for BPH. Reports Some hematuria every once in a while which is unchanged from baseline. Denies chest pain, fever, vomiting. Reports nausea. He is endorsing some new dyspnea today as well with increased BLE and cough. GENERAL: Well-appearing, well-nourished, and in no acute distress. HEAD: Normocephalic, atraumatic. CHEST: Clear to auscultation. ?No respiratory distress. HEART: Regular rate and rhythm.? Abdominal: 2 Ventral hernias that are tender to palpation, not easily reducible. No overlying skin changes. Overactive bowel sounds. NEURO: ?Alert and oriented x3. Patient screened in triage and initial orders placed.? ?Additional care and disposition to be based upon?diagnostic testing and treatment. <Eve Del Valle PA-C - Last Filed: 11/08/23 19:25> Related Data Home Medications: Home Medications Medication Instructions Recorded Confirmed Lactobacillus 1 cap PO DAILY 11/08/23 11/08/23 acidophilus-Bifidobac.animalis 2.5 billion cell capsule (Daily Probiotic) allopurinol 100 mg tablet 100 mg PO DAILY 11/08/23 11/08/23 aspirin 81 mg tablet 81 mg PO DAILY 11/08/23 11/08/23 atorvastatin 10 mg tablet 10 mg PO DAILY 11/08/23 11/08/23 cilostazol 100 mg tablet 100 mg PO DAILY 11/08/23 11/08/23 coenzyme Q10 200 mg capsule (Co 200 mg PO DAILY 11/08/23 11/08/23 Q-10) escitalopram oxalate 20 mg tablet 20 mg PO DAILY 11/08/23 11/08/23 finasteride 5 mg tablet 5 mg PO DAILY 11/08/23 11/08/23 furosemide 40 mg tablet 40 mg PO BID 11/08/23 11/08/23 metoprolol tartrate 100 mg tablet 150 mg PO Q12H 11/08/23 11/08/23 multivit with minerals-iron 18 1 tablet PO DAILY 11/08/23 11/08/23 mg-folic ac 400 mcg-vit K 25 mcg tablet (Adults Multivitamin) sulfasalazine 500 mg tablet 1,000 mg PO Q12H 11/08/23 11/08/23 <Eve Del Valle PA-C - Last Filed: 11/08/23 19:25> Allergies/Adverse Reactions: Allergies Allergy/AdvReac Type Severity Reaction Status Date / Time No Known Allergies Allergy Verified 11/07/23 19:49 <Eve Del Valle PA-C - Last Filed: 11/08/23 19:25> [facility] Past Medical History Medical History: Medical History (Updated 11/08/23 @ 16:22 by Guanakito Isbell MD) Abdominal pain B12 deficiency Benign prostatic hyperplasia Chronic anemia Chronic kidney disease, stage 3 Coronary artery disease Crohn's disease Depression Gout Hyperlipidemia Hypertension Iron deficiency anemia Kidney stones Osteoarthritis Peripheral vascular disease Seizures Vascular dementia <Eve Del Valle PA-C - Last Filed: 11/08/23 19:25> Surgical History Surgical History: Surgical History (Updated 11/08/23 @ 16:08 by Jeffery Bustillos MD) History of bilateral cataract extraction History of cholecystectomy History of coronary artery bypass graft History of lithotripsy History of partial colectomy X2 for to bowel obstructions and fistula secondary to Crohn's disease. History of vascular surgery Bilateral lower extremity stents. <Eve Del Valle PA-C - Last Filed: 11/08/23 19:25> Geraldine
--- NOTE | 2023-11-07 18:55 | ECG_ITS ---
Measurements Intervals [place] Rate: 106 P: [place]: 0 QRS: 57 QRSD: 92 T: 62 QT: 343 QTc: 456 Interpretive Statements ATRIAL FIBRILLATION WITH RAPID VENTRICULAR RESPONSE WITH ABERRANT CONDUCTION OR VENTRICULAR PREMATURE COMPLEXES ABNORMAL RHYTHM ECG COMPARED TO ECG 06/09/2023 20:22:04 NO DIFFERENCE Electronically Signed On 11-08-2023 8:18:13 BUFFING WHEEL INSPECTOR by Jeffery Bustillos M.D.
[2023-11-07 19:17] LABS: Basophils Absolute Auto 0.1 K/mm3 (0.0-0.1); Basophils Percent Auto 0.7 % (0.2-1.2); Eosinophils Absolute Auto 0.1 K/mm3 (0-0.3); Eosinophils Percent Auto 1.2 % (0-4.4); Hematocrit 35.5 % (42.0-52.0); Hemoglobin 10.6 g/dL (14.0-18.0); Immature Granulocyte Absolute 0.03 K/mm3 (0.00-0.031); Immature Granulocyte Percent A 0.4 % (0-0.5); Lymphocytes Absolute Auto 0.73 K/mm3 (0.9-3.2); Lymphocytes Percent Auto 8.7 % (18.3-44.2); Mean Corpuscular HGB Conc 29.9 g/dl (32-36); Mean Corpuscular Hemoglobin 32.1 pg (26-34); Mean Corpuscular Volume 107.6 fl (80-100); Mean Platelet Volume 9.9 fl (7.4-10.4); Monocytes Absolute Auto 0.7 K/mm3 (0.1-0.6); Monocytes Percent Auto 7.7 % (2.6-8.5); Neutrophils Absolute Auto 6.9 K/mm3 (1.3-6.7); Neutrophils Percent Auto 81.3 % (45.5-73.1); Platelet Count Result 268 k/mm3 (150-375); Red Cell Distribution Width 14.8 % (11.5-14.5); White Blood Count 8.4 K/mm3 (4.5-10.0)
[2023-11-07 19:36] LABS: Alanine Aminotransferase 31 U/L (6-50); Albumin Level 3.9 g/dL (3.5-5.1); Alkaline Phosphatase 141 U/L (38-126); Anion Gap 9 mmol/L (8-16); Aspartate Amino Transferase 42 U/L (17-59); Bilirubin,Total 0.6 mg/dL (0.2-1.3); Blood Urea Nitrogen 26 mg/dL (9-20); Carbon Dioxide 21 mmol/L (22-30); Chloride 111 mmol/L (98-107); Estimated CRCL calculation 28 ml/min; Estimated Glomerular Filt Rate 39; Glucose 119 mg/dL (65-110); Lipase 180 U/L (23-300); Potassium 5.3 mmol/L (3.4-5.0); Sodium 141 mmol/L (137-145)
[2023-11-07 19:37] LABS: Lactic Acid Reflex 0.8 mmol/L (0.7-2.0)
--- NOTE | 2023-11-07 19:41 | PC.NURSE ---
Pt taken to CT at this time.
[2023-11-07 19:54] LABS: Influenza A QL RT-PCR Negative (Negative); Influenza B QL RT-PCR Negative (Negative); RSV RNA, RT-PCR Negative (Negative); SARS-CoV-2 RNA PCR Negative (Negative)
[2023-11-07 20:03] LABS: Appearance Urine Clear (Clear); Bacteria Urine 1+ /hpf; Bilirubin Urine 1+ (Negative); Blood Urine 1+ (Negative); Color Urine Dark Yellow (Yellow); Glucose Urine UA Negative (Negative); Ketones Urine Negative (Negative); Leukocyte Esterase Ur Negative LEU/UL (Negative); Nitrate Urine Negative (Negative); Non Pathogenic Casts 0-2; Protein Urine 2+ mg/dL (Negative); Specific Grav Ur 1.021 (1.001-1.035); Squamous Epithelial Cell Urine Occasional /hpf (Few); Urobilinogen Urine 0.2 mg/dL (<2.0); pH Urine 5.5 (5.0-9.0)
[2023-11-07 20:09] LABS: Add Urine Microscopic? YES
[2023-11-07] MEDS: SODIUM CHLORIDE 0.9% IV 2,000 ML 999 ML IV CONT (20:26)
[2023-11-07 20:27] LABS: NT Pro B Type Natriuretic Pept 13500 pg/mL (19.9-100)
[2023-11-07] MEDS: FUROSEMIDE INJ 40 MG/4 ML VIAL IV PUSH (21:59)
[2023-11-07] MEDS: SODIUM ZIRCONIUM CYCLOSILICATE 10 GM POWD.PACK PO (22:04)
[2023-11-07] MEDS: METOPROLOL TARTRATE INJ 5 MG/5 ML VIAL IV PUSH ×2 (22:05→23:09)
--- NOTE | 2023-11-07 22:11 | PC.NURSE ---
Patient self caths at home, patient given straight cath to self cath.
[2023-11-07] MEDS: METOPROLOL TARTRATE 25 MG TABLET 150 MG PO (22:32)
--- NOTE | 2023-11-07 22:36 | PC.NURSE ---
Patient straight caths at home. Patient did do straight cath on himself, 100ml output.
[2023-11-08] VITALS (16 sets, daily range): BP systolic 119–129; BP diastolic 62–94; PULSE 54–107; RESP 17–27; TEMP 36.5–36.9; O2SAT 92–100; BMI 22.5
--- NOTE | 2023-11-08 00:20 | PM.IMHP ---
H&P: HPI History of Present Illness Date/Time: 11/08/23 00:20 Chief Complaint: Abdominal pain Narrative: A 78 yo male patient with history of Crohn's disease, recurrent GI bleed(not anticoagulated due to this reason), 3 prior section ventral hernia, prior 2 coronary bypass surgery who presented to the ED for evaluation of abdominal pain which he thinks is coming from ventral had any a there has been was not informed about 1 week, reported associated nausea, and difficulty keeping food down due to pain. He follows up with surgery for this problem on he has been on conservative management. He denied chest pain, or reported new onset shortness of breath especially with exertion, and bilateral lower extremity swelling with cough. He was found to have a elevated BNP, cardiomegaly, moderate bilateral pleural effusion with moderate ascites, echocardiogram done in 2021 showed dilated right heart chambers weight moderate mitral and tricuspid to regurgitations. Patient was given IV push of 40 mg of furosemide. And I was called to admit this patient for further evaluation. Subsequently, he went into atrial fibrillation with RVR and needed IV pushes of metoprolol which is his home medication and also received oral dose that he takes at home, his heart rate improved Review of Systems Review of Systems: All systems reviewed & are unremarkable except as noted in HPI and below PMFSH Past Medical History Medical History B12 deficiency Benign prostatic hyperplasia Chronic anemia Chronic kidney disease, stage 3 Coronary artery disease Crohn's disease Depression Gout Hyperlipidemia Hypertension Iron deficiency anemia Kidney stones Osteoarthritis Peripheral vascular disease Seizures Vascular dementia Surgical History Surgical History History of bilateral cataract extraction History of cholecystectomy History of coronary artery bypass graft History of lithotripsy History of partial colectomy X2 for to bowel obstructions and fistula secondary to Crohn's disease. History of vascular surgery Bilateral lower extremity stents. Family History Family History Father Myocardial infarct Cerebrovascular accident Mother Breast cancer Sibling Crohn's disease Social History Social History Social History: Surrogate decision maker: Sarah Oreilly, spouse. Code status: Do not resuscitate. Smoking packs per day: 2 Smoking cigarettes per day: 40.0 Years smoked: 25 Smoking pack-years: 50.00 Smoking status: Former smoker Tobacco type: cigarettes Second hand tobacco smoke exposure: No Smoking end date: 09/22/86 Alcohol intake: never Drinks per week: 1 Substance use: never Substance use type: does not use Other substance usage details: pt unable to answer confused Do You Feel Safe in your Home?: Yes Lack of Transportation: No Lack of Food: Never True Current Housing: I Have Housing Concerned About Future Housing: No Difficulty Paying Gas/Electric Bills: No Difficulty Paying for Meds: No Currently Unemployed: No Education: Trade/Vocational Certificate Difficulty w/ Childcare or Family Care: No Additional living arrangements comments: The patient lives with his in [place]. Additional occupation/education comments: Retired from [employer]. Spiritual care concerns: No Meds Home Medications and Allergies Home Medications Medication Instructions Recorded Confirmed Type allopurinol 100 mg tablet 100 mg PO DAILY 11/08/23 11/08/23 History atorvastatin 10 mg tablet 10 mg PO DAILY 11/08/23 11/08/23 History cilostazol 100 mg tablet 100 mg PO DAILY 11/08/23 11/08/23 History finasteride 5 mg tablet 5 mg PO DAILY 11/08/23 11/08/23 History furosemide 40 mg tablet 40
--- NOTE | 2023-11-08 01:19 | ADMGEN ---
This patient, Vitaly Oreilly, was admitted to [facility] Surg Room 325-02. Patient/family oriented to hospital policies and general routines including ID bracelet, bed and alarms, visiting hours, pain management, procedures, bathroom and other care routines, personal items, smoking policy, room service/diet, and visiting hours. Information on how to activate the Rapid Response Team has been discussed. Patient/Family are encouraged to report perceived risks to care and to ask questions if they do not understand what they are told or what they should do.
--- NOTE | 2023-11-08 06:00 | ECHO_ITS ---
Patient Info Name: Vitaly Oreilly Age: 78 years : 1945 Gender: Male Ht: 70 in Wt: 131 lbs BSA: 1.70 m2 HR: 61 bpm BP: 129 / 92 mmHg Heart Rhythm: Atrial Fibrillation Technical Quality: Good Exam Date: 11/08/2023 2:29 PM Exam Location: Echo Lab Patient Status: Inpatient Admit Date: 11/07/2023 Staff Ordering Physician: Emeterio Burns MD Dependency Director: Celso Graham RDCS Attending Provider: Steffi Parkinson MD Referring Physician: Katy MCNEAL; Exam Type: CA echo doppler color flow Study Info Indications - fluid overload Complete two-dimensional, color flow and Doppler transthoracic echocardiogram is performed. Summary 1. Complete two-dimensional, color flow and Doppler transthoracic echocardiogram is performed. 2. Mild left ventricular enlargement with mildly reduced systolic function ejection fraction 40-45%. 3. Severe biatrial enlargement. 4. Moderate mitral and tricuspid regurgitation. 5. Atrial fibrillation. 6. TR velocities are consistent with modestly elevated PA pressure. Left Ventricle Left ventricular chamber dimension is mildly enlarged. Left ventricular systolic function is mildly reduced, estimated at 40-45%. The left ventricular diastolic function is indeterminate. Right Ventricle Right ventricular chamber dimension is mildly enlarged. Right ventricular systolic function is reduced. Left Atria Left atrial chamber dimension is severely enlarged. Right Atria Right atrial chamber dimension is severely enlarged. Aortic Valve The aortic valve is trileaflet. There is mild aortic valve sclerosis. Pulmonic Valve The pulmonic valve is normal. There is mild pulmonic regurgitation. Mitral Valve The mitral valve has normal leaflets. There is moderate mitral valve regurgitation. The mitral valve annulus is mildly calcified. Tricuspid Valve The tricuspid valve leaflets are normal. There is moderate tricuspid valve regurgitation. Pericardium/Pleural The pericardium appears normal. Aorta The aortic root size at the sinus of Valsalva is normal. Left Ventricular Outflow Tract Name Value Normal LVOT 2D LVOT Diameter 2.1 cm LVOT Doppler LVOT Peak Gradient 2 mmHg LVOT Mean Gradient 1 mmHg LVOT VTI 13 cm LVOT VTI/AV VTI Ratio 0.8 LVOT Stroke Volume 43 ml LVOT CO 3.7 l/min LVOT CI 2.2 l/min/m2 Pulmonic Valve Name Value Normal RVOT Doppler RVOT Peak Gradient 1 mmHg PV Doppler PV Peak Gradient 2 mmHg Mitral Valve Name Value Normal
[2023-11-08 06:45] LABS: Basophils Percent Auto 0.5 % (0.2-1.2); Eosinophils Percent Auto 0.5 % (0-4.4); Hematocrit 35.2 % (42.0-52.0); Hemoglobin 10.6 g/dL (14.0-18.0); Immature Granulocyte Absolute 0.02 K/mm3 (0.00-0.031); Immature Granulocyte Percent A 0.3 % (0-0.5); Mean Corpuscular HGB Conc 30.1 g/dl (32-36); Mean Corpuscular Hemoglobin 32.2 pg (26-34); Mean Platelet Volume 9.7 fl (7.4-10.4); Monocytes Absolute Auto 0.7 K/mm3 (0.1-0.6); Monocytes Percent Auto 8.9 % (2.6-8.5); Neutrophils Absolute Auto 6.2 K/mm3 (1.3-6.7); Neutrophils Percent Auto 81.8 % (45.5-73.1); Platelet Count Result 248 k/mm3 (150-375); Red Blood Count 3.29 M/mm3 (4.6-6.20); Red Cell Distribution Width 14.9 % (11.5-14.5); White Blood Count 7.5 K/mm3 (4.5-10.0)
[2023-11-08 06:53] LABS: Anion Gap 9 mmol/L (8-16); Blood Urea Nitrogen 27 mg/dL (9-20); Calcium 8.9 mg/dL (8.4-10.2); Carbon Dioxide 21 mmol/L (22-30); Chloride 111 mmol/L (98-107); Estimated CRCL calculation 30 ml/min; Estimated Glomerular Filt Rate 35; Glucose 101 mg/dL (65-110); Potassium 5.1 mmol/L (3.4-5.0); Sodium 141 mmol/L (137-145)
[2023-11-08] MEDS: FUROSEMIDE INJ 40 MG/4 ML VIAL IV PUSH (09:00)
--- NOTE | 2023-11-08 12:29 | PM.CNGS ---
Assessment and Plan Assessment and plan (1) Recurrent incisional hernia: Code(s): K43.2 - Incisional hernia without obstruction or gangrene Status: Acute Assessment and Plan: exam completely benign, continue heart healthy diet, no acute surgical issues at this time (2) Heart failure: Code(s): I50.9 - Heart failure, unspecified Status: Acute Assessment and Plan: likely exacerbation, management per primary team (3) Chronic kidney disease, stage 3: Code(s): N18.30 - Chronic kidney disease, stage 3 unspecified Status: Acute Assessment and Plan: stable, management per primary team History of Present Illness Consult details Consult date: 11/08/23 Reason for consult: abdominal pain Requesting physician: Steffi Parkinson MD Narrative: The patient is a 78-year-old male presenting to the hospital complaining of some diffuse upper abdominal pain, weakness, shortness of breath. Patient reports he has had multiple ventral hernia surgeries in the past and states he thinks he has a recurrence. Of note, the patient does suffer from some dementia and is somewhat confused. Most history is obtained via nursing and chart. Upon evaluation today, the patient denies any abdominal pain and is tolerating a heart healthy diet. The patient is not having any nausea, vomiting since admission. Review of Systems Review of Systems: ROS unobtainable: Yes unobtainable due to mental status PMFSH Past Medical History Medical History B12 deficiency Benign prostatic hyperplasia Chronic anemia Chronic kidney disease, stage 3 Coronary artery disease Crohn's disease Depression Gout Hyperlipidemia Hypertension Iron deficiency anemia Kidney stones Osteoarthritis Peripheral vascular disease Seizures Vascular dementia Surgical History Surgical History History of bilateral cataract extraction History of cholecystectomy History of coronary artery bypass graft History of lithotripsy History of partial colectomy X2 for to bowel obstructions and fistula secondary to Crohn's disease. History of vascular surgery Bilateral lower extremity stents. Family History Family History Father Myocardial infarct Cerebrovascular accident Mother Breast cancer Sibling Crohn's disease Social History Social History Social History: Surrogate decision maker: Sarah Schwalb, spouse. Code status: Do not resuscitate. Smoking packs per day: 2 Smoking cigarettes per day: 40.0 Years smoked: 25 Smoking pack-years: 50.00 Smoking status: Former smoker Tobacco type: cigarettes Second hand tobacco smoke exposure: No Smoking end date: 09/22/86 Alcohol intake: never Drinks per week: 1 Substance use: never Substance use type: does not use Other substance usage details: pt unable to answer confused Do You Feel Safe in your Home?: Yes Lack of Transportation: No Lack of Food: Never True Current Housing: I Have Housing Concerned About Future Housing: No Difficulty Paying Gas/Electric Bills: No Difficulty Paying for Meds: No Currently Unemployed: No Education: Trade/Vocational Certificate Difficulty w/ Childcare or Family Care: No Additional living arrangements comments: The patient lives with his in [place]. Additional occupation/education comments: Retired from [employer]. Spiritual care concerns: No Meds Home Medications and Allergies Home Medications Medication Instructions Recorded Confirmed Type allopurinol 100 mg tablet 100 mg PO DAILY 11/08/23 11/08/23 History atorvastatin 10 mg tablet 10 mg PO DAILY 11/08/23 11/08/23 History cilostazol 100 mg tablet 100 mg PO DAILY 11/08/23 11/08/23 History finasteride 5 mg tablet 5
--- NOTE | 2023-11-08 16:01 | PM.CNCAR ---
Assessment and Plan Assessment and plan (1) Atrial fibrillation with RVR: Code(s): I48.91 - Unspecified atrial fibrillation Status: Acute (2) S/P CABG (coronary artery bypass graft): Code(s): Z95.1 - Presence of aortocoronary bypass graft Status: Acute Plan This is a 78-year-old man with chronic ischemic heart disease according to chart 2 previous coronary bypass operations, chronic atrial fibrillation being managed with metoprolol all at a high dosage for rate control. According to what I read in a told by his he is not felt to be a candidate for anticoagulation by his physicians at [facility] and he also not be a candidate for left atrial appendage occlusion procedure. He really does not have much in the way of physical exam findings to suggest decompensated heart failure in my opinion. His metoprolol should be reordered at the previous dosage for rate control because his metoprolol has not been reordered he is moderately tachycardic although he is hemodynamically not decompensated. I will review his chart from his physician at [facility] when I have the opportunity to do so. The family states that he had an echocardiogram there about 3 months ago as such there is no reason to repeated here at [facility]. He did not really come here last night with a cardiac concern rather he was concerned about the status of his ventral hernias Jeffery Bustillos MD [facility] History of Present Illness History of Present Illness Consult date/time: 11/08/23 16:01 Reason For Visit: new onset chf Narrative: This is a 78-year-old man I am asked to see at the request of the hospitalist because of the stated diagnosis of heart failure. Patient is unknown to me prior to this encounter and apparently has a long his ischemic heart disease and atrial fibrillation. He receives his cardiac care at [facility] and sees Dr. Ya for follow-up for many years. According to the patient's chart he has had 2 previous bypass operations. Patient some degree of dementia. Fortunately his and daughter are in the room. Patient came to the emergency room here last night primary is concerned that he was having abdominal discomfort related to incisional hernias that are chronic. He has been seen by surgical consultation and there is no acute problem with his hernias that would require surgical attention. Very strangely they stated he was told that he was dehydrated in the emergency room and given some IV fluid then they were told he was volume overloaded and was in a state of congestive heart failure. He was not reporting symptoms of orthopnea PND or accumulating edema. He did have an elevated nitric peptide level on his lab data. He is not reporting any symptoms of chest pain pressure or heaviness. The patient takes a very high dose of metoprolol totaling 300 a day daily to provide rate control. For some reason his metoprolol has not been reordered since he has been in the hospital. According to the records he is considered to be not a candidate for anticoagulation because of his Crohn's disease. His states that a camera engineer at [facility] also deemed him not to be a candidate for a left atrial appendage occlusion procedure. At the time of dictating this note I have not had the opportunity to review his records from [facility] in any fashion at all. Review of Systems Review of Systems: ROS unobtainable: Yes unobtainable due to mental status PMFSH Past Medical History Medical History B12 deficiency Benign prostatic hyperplasia Chronic anemia Chronic kidney disease, stage 3 Coronary artery disease Crohn's disease Depression Gout Hyperlipidemia Hypertension Iron deficiency anemia Kidney stones Osteoarthritis Peripheral vascular disease Seizures Vascular dementia Surgical History Surgical History History of bilateral cataract ex
--- NOTE | 2023-11-08 16:04 | PM.IMPN ---
Progress Note: A&P Assessment and Plan (1) Abdominal pain: Code(s): R10.9 - Unspecified abdominal pain Status: Acute Assessment and Plan: Hx of incisional hernia; Surgery consulted; no interventions planned. (2) Recurrent incisional hernia: Code(s): K43.2 - Incisional hernia without obstruction or gangrene Status: Acute Assessment and Plan: Surgery consulted; no interventions planned (3) Fluid overload: Code(s): E87.70 - Fluid overload, unspecified Status: Acute Assessment and Plan: On diuretics (4) New onset of congestive heart failure: Code(s): I50.9 - Heart failure, unspecified Status: Acute Assessment and Plan: on Lasix; Monitor for improvment (5) Atrial fibrillation with RVR: Code(s): I48.91 - Unspecified atrial fibrillation Status: Acute (6) Chronic kidney disease, stage 3: Code(s): N18.30 - Chronic kidney disease, stage 3 unspecified Status: Acute Assessment and Plan: Avoid nephrotoxins Plan Chief Complaint: Abdominal pain Narrative: A 78 yo male patient with history of Crohn's disease, recurrent GI bleed(not anticoagulated due to this reason), 3 prior section ventral hernia, prior 2 coronary bypass surgery who presented to the ED for evaluation of abdominal pain which he thinks is coming from ventral had any a there has been was not informed about 1 week, reported associated nausea, and difficulty keeping food down due to pain.? He follows up with surgery for this problem on he has been on conservative management.? He denied chest pain, or reported new onset shortness of breath especially with exertion, and bilateral lower extremity swelling with cough.? He was found to have a elevated BNP, cardiomegaly, moderate bilateral pleural effusion with moderate ascites, echocardiogram done in 2021 showed dilated right heart chambers weight moderate mitral and tricuspid to regurgitations.? Patient was given IV push of 40 mg of furosemide.? And I was called to admit this patient for further evaluation.? Subsequently, he went into atrial fibrillation with RVR and needed IV pushes of metoprolol which is his home medication and also received oral dose that he takes at home, his heart rate improved Evaluation of pain secondary to ventral hernia however he was found to have moderate ascites moderate bilateral pleural effusion with elevated BNP, much in this findings with echocardiogram done in 2021, patient seems to have CHF, he stated he was not diagnosed of days. He will be admitted for further evaluation, continue furosemide IV 40 mg daily, get morning labs and consult Cardiology. Time Spent With Patient Time with patient: 25 - 35 minutes Subjective Date/time seen: 11/08/23 16:04 Interval history: Seen and examined today; being managed for abdominal pain. Not in acute/painful distress. Surgery was consulted and cleared from surgical intervention. Review of Systems Review of Systems: All systems reviewed & are unremarkable except as noted in HPI and below Constitutional: Constitutional: Reports no additional constitutional complaints Eyes: Eyes: Reports no additional eye complaints ENT: Reports system reviewed and no additional complaints, except as documented Gastrointestinal: Gastrointestinal: Reports no additional gastrointestinal complaints Musculoskeletal: Musculoskeletal: Reports no additional musculoskeletal complaints Integumentary/Breasts: Skin/Breast: Reports dry skin Psychiatric: Psychiatric: Reports no additional psychiatric complaints Exam Narrative: ? APPEARANCE: No apparent distress. Head: atraumatic. EYES:? EOMI, NOSE: Atraumatic NECK: Trachea midline RESPIRATORY: tachypneic CARDIOVASCULAR: RRR, bilateral? edema lower extremities ABDOMINAL:? Mild tenderness to palpation, no guarding or rebound MUSCULOSKELETAl: No obvious deformities NEURO: Alert. Moving 4/4 extremities SKIN:: Warm
[2023-11-08] MEDS: METOPROLOL TARTRATE 50 MG TAB 150 MG PO (17:29)
[2023-11-08] MEDS: cilostazoL 100 MG TABLET PO (19:59)
[2023-11-08] MEDS: FINASTERIDE 5 MG TABLET PO (19:59)
[2023-11-08] MEDS: ATORVASTATIN 10 MG TABLET PO (19:59)
[2023-11-08] MEDS: sulfaSALAzine 500 MG TABLET 1000 MG PO (19:59)
[2023-11-08] MEDS: allopurinoL 100 MG TABLET PO (19:59)
[2023-11-08] MEDS: ESCITALOPRAM OXALATE 10 MG TABLET 20 MG PO (20:00)
[2023-11-09] VITALS (12 sets, daily range): BP systolic 113–134; BP diastolic 67–92; PULSE 94–118; RESP 18–20; TEMP 36.3–37; O2SAT 94–100
[2023-11-09 06:19] LABS: Basophils Absolute Auto 0.1 K/mm3 (0.0-0.1); Basophils Percent Auto 0.6 % (0.2-1.2); Eosinophils Absolute Auto 0.1 K/mm3 (0-0.3); Eosinophils Percent Auto 1.1 % (0-4.4); Hematocrit 32.5 % (42.0-52.0); Hemoglobin 9.8 g/dL (14.0-18.0); Immature Granulocyte Absolute 0.03 K/mm3 (0.00-0.031); Immature Granulocyte Percent A 0.4 % (0-0.5); Lymphocytes Percent Auto 8.4 % (18.3-44.2); Mean Corpuscular HGB Conc 30.2 g/dl (32-36); Mean Corpuscular Hemoglobin 31.8 pg (26-34); Mean Corpuscular Volume 105.5 fl (80-100); Mean Platelet Volume 9.7 fl (7.4-10.4); Monocytes Absolute Auto 0.7 K/mm3 (0.1-0.6); Monocytes Percent Auto 8.8 % (2.6-8.5); Neutrophils Absolute Auto 6.8 K/mm3 (1.3-6.7); Neutrophils Percent Auto 80.7 % (45.5-73.1); Nucleated Red Blood Cells Perc 0.2 % (0.0-0.2); Platelet Count Result 235 k/mm3 (150-375); Red Blood Count 3.08 M/mm3 (4.6-6.20); White Blood Count 8.4 K/mm3 (4.5-10.0)
[2023-11-09] MEDS: sulfaSALAzine 500 MG TABLET 1000 MG PO ×2 (06:35→21:30)
[2023-11-09 06:38] LABS: Alanine Aminotransferase 31 U/L (6-50); Albumin Level 3.6 g/dL (3.5-5.1); Alkaline Phosphatase 135 U/L (38-126); Anion Gap 11 mmol/L (8-16); Aspartate Amino Transferase 43 U/L (17-59); Bilirubin,Total 0.6 mg/dL (0.2-1.3); Blood Urea Nitrogen 27 mg/dL (9-20); Calcium 8.6 mg/dL (8.4-10.2); Carbon Dioxide 20 mmol/L (22-30); Chloride 107 mmol/L (98-107); Estimated CRCL calculation 33 ml/min; Estimated Glomerular Filt Rate 39; Glucose 113 mg/dL (65-110); Potassium 3.9 mmol/L (3.4-5.0); Sodium 138 mmol/L (137-145)
[2023-11-09] MEDS: ATORVASTATIN 10 MG TABLET PO (08:25)
[2023-11-09] MEDS: ESCITALOPRAM OXALATE 10 MG TABLET 20 MG PO (08:25)
[2023-11-09] MEDS: ASPIRIN 81 MG ENTERIC TABLET PO (08:25)
[2023-11-09] MEDS: METOPROLOL TARTRATE 50 MG TAB 150 MG PO ×2 (08:25→21:30)
[2023-11-09] MEDS: FINASTERIDE 5 MG TABLET PO (08:25)
[2023-11-09] MEDS: FUROSEMIDE INJ 40 MG/4 ML VIAL IV PUSH (08:25)
[2023-11-09] MEDS: allopurinoL 100 MG TABLET PO (08:26)
[2023-11-09] MEDS: SALINE 0.65% NAS SOLN 44 ML BTL 1 SPRAY NASAL (10:55)
[2023-11-09] MEDS: cilostazoL 100 MG TABLET PO (10:56)
--- NOTE | 2023-11-09 12:10 | PM.IMPN ---
Progress Note: A&P Assessment and Plan (1) Abdominal pain: Code(s): R10.9 - Unspecified abdominal pain Status: Acute Assessment and Plan: Hx of incisional hernia; Surgery consulted; no interventions planned. (2) Recurrent incisional hernia: Code(s): K43.2 - Incisional hernia without obstruction or gangrene Status: Acute Assessment and Plan: Surgery consulted; no interventions planned (3) Fluid overload: Code(s): E87.70 - Fluid overload, unspecified Status: Acute Assessment and Plan: On diuretics (4) New onset of congestive heart failure: Code(s): I50.9 - Heart failure, unspecified Status: Acute Assessment and Plan: on Lasix; Monitor for improvment (5) Atrial fibrillation with RVR: Code(s): I48.91 - Unspecified atrial fibrillation Status: Acute Assessment and Plan: on Metoprolol, According to the records he is considered to be not a candidate for anticoagulation because of his Crohn's disease (6) Chronic kidney disease, stage 3: Code(s): N18.30 - Chronic kidney disease, stage 3 unspecified Status: Acute Assessment and Plan: Avoid nephrotoxins (7) Asymptomatic bacteriuria: Code(s): R82.71 - Bacteriuria Status: Acute Assessment and Plan: Enterococcus spp on Unasyn (8) S/P CABG (coronary artery bypass graft): Code(s): Z95.1 - Presence of aortocoronary bypass graft Status: Acute Plan Chief Complaint: Abdominal pain Narrative: A 78 yo male patient with history of Crohn's disease, recurrent GI bleed(not anticoagulated due to this reason), 3 prior section ventral hernia, prior 2 coronary bypass surgery who presented to the ED for evaluation of abdominal pain which he thinks is coming from ventral had any a there has been was not informed about 1 week, reported associated nausea, and difficulty keeping food down due to pain.? He follows up with surgery for this problem on he has been on conservative management.? He denied chest pain, or reported new onset shortness of breath especially with exertion, and bilateral lower extremity swelling with cough.? He was found to have a elevated BNP, cardiomegaly, moderate bilateral pleural effusion with moderate ascites, echocardiogram done in 2021 showed dilated right heart chambers weight moderate mitral and tricuspid to regurgitations.? Patient was given IV push of 40 mg of furosemide.? And I was called to admit this patient for further evaluation.? Subsequently, he went into atrial fibrillation with RVR and needed IV pushes of metoprolol which is his home medication and also received oral dose that he takes at home, his heart rate improved Evaluation of pain secondary to ventral hernia however he was found to have moderate ascites moderate bilateral pleural effusion with elevated BNP, much in this findings with echocardiogram done in 2021, patient seems to have CHF, he stated he was not diagnosed of days. He will be admitted for further evaluation, continue furosemide IV 40 mg daily, get morning labs and consult Cardiology. Time Spent With Patient Time with patient: 25 - 35 minutes Subjective Date/time seen: 11/09/23 12:10 Interval history: Seen and examined today; being managed for abdominal pain. Not in acute/painful distress. Surgery was consulted and cleared from surgical intervention. 11/09/23: Seen and examined; not in painful/respiratory distress. Review of Systems Review of Systems: All systems reviewed & are unremarkable except as noted in HPI and below Constitutional: Constitutional: Reports no additional constitutional complaints Eyes: Eyes: Reports no additional eye complaints ENT: Reports system reviewed and no additional complaints, except as documented Gastrointestinal: Gastrointestinal: Reports no additional gastrointestinal complaints Musculoskeletal: Musculoskeletal: Reports no additional musculoskeletal co
--- NOTE | 2023-11-09 12:21 | PM.PNGS ---
Progress Note: A&P Assessment and Plan (1) Recurrent incisional hernia: Code(s): K43.2 - Incisional hernia without obstruction or gangrene Status: Acute Assessment and Plan: exam benign, hernia easily reducible, kaylyn diet and having bowel fxn, no acute surgical issues, will s/o, call c ?s, issues Subjective Subjective Date/Time Seen: 11/09/23 12:21 Interval history: feels good, kaylyn diet, no N/V, no abd pain Review of Systems Review of Systems: All systems reviewed & are unremarkable except as noted in HPI and below Exam Const: General: cooperative, comfortable and no acute distress Resp: Auscultation: clear to auscultation bilaterally Cardio: Rate: regular rate Rhythm: regular rhythm GI: Inspection: normal to inspection, non-distended and incision GI Palp: No abdominal tenderness, Yes Soft to palpation and Yes Hernia present Other: reducible incisional hernia Objective Data Vital Signs Vital Signs: Vital Signs - 24 hr 11/08/23 14:00 11/08/23 17:29 11/08/23 16:00 Temperature 36.5 C Pulse Rate 97 96 95 Respiratory Rate 18 Blood Pressure 129/81 Pulse Oximetry 94 Oxygen Delivery 11/08/23 20:00 11/08/23 21:20 11/08/23 20:00 Temperature 36.6 C Pulse Rate 91 106 H Respiratory Rate 18 Blood Pressure 122/62 Pulse Oximetry 100 100 Oxygen Delivery Room Air 11/08/23 20:00 11/09/23 00:00 11/09/23 06:00 Temperature 36.6 C Pulse Rate 96 100 98 Respiratory Rate 20 Blood Pressure 127/92 H Pulse Oximetry 95 Oxygen Delivery 11/09/23 04:00 11/09/23 08:25 11/09/23 09:17 Temperature Pulse Rate 107 H 104 H Respiratory Rate Blood Pressure Pulse Oximetry 94 Oxygen Delivery Room Air 11/09/23 10:56 Temperature Pulse Rate 104 H Respiratory Rate Blood Pressure Pulse Oximetry Oxygen Delivery Intake/Output Intake/Output: Intake & Output 11/06/23 11/07/23 11/08/23 11/09/23 23:59 23:59 23:59 23:59 Intake Total 1999 1030 890 Output Total 100 1050 Balance 1900 1030 -160 Meds/Results Medications: Active Medications Generic Name Dose Route Start Last Admin Trade Name Freq PRN Reason Stop Dose Admin Allopurinol 100 mg 11/08/23 18:50 11/09/23 08:26 Allopurinol 100 Mg Tablet PO 100 mg DAILY [facility] Administration Aspirin 81 mg 11/09/23 09:00 11/09/23 08:25 Aspirin 81 Mg Enteric Tablet PO 81 mg QAM SUZAN Administration Atorvastatin Calcium 10 mg 11/08/23 18:50 11/09/23 08:25 Atorvastatin 10 Mg Tablet PO 10 mg DAILY SUZAN Administration Cilostazol 100 mg 11/08/23 18:50 11/09/23 10:56 Cilostazol 100 Mg Tablet PO 100 mg DAILY SUZAN Administration Escitalopram Oxalate 20 mg 11/08/23 18:50 11/09/23 08:25 Escitalopram Oxalate 10 Mg Tablet PO 20 mg DAILY [facility] Administration Finasteride 5 mg 11/08/23 18:50 11/09/23 08:25 Finasteride 5 Mg Tablet PO 5 mg DAILY SUZAN Administration Furosemide 40 mg 11/08/23 09:00 11/09/23 08:25 Furosemide Inj 40 Mg/4 Ml Vial IV PUSH 40 mg DAILY [facility] Administration Ampicillin Sodium/Sulbactam Sodium 1.5 gm in 50 mls @ 100 mls/hr 11/09/23 15:00 Unasyn 1.5 Gm/Ns 50 Ml IVPB Q6H [facility] Metoprolol Tartrate 150 mg 11/08/23 21:00 11/09/23 10:56 Metoprolol Tartrate 50 Mg Tab PO Not Given Q12HR [facility] Perflutren Lipid Microsphere 0 ml 11/07/23 23:52 Perflutren Lipid Microspheres 1.5 Ml Vial Diluted To 10 Ml Total Volume IV PUSH 11/10/23 23:53 ONCE PRN adequate visualization Protocol Sodium Chloride 1 spray 11/08/23 18:34 11/09/23 10:55 Saline 0.65% Gregorio Soln 44 Ml Btl NASAL 1 spray Q6HR PRN Administration Congestion Sulfasalazine 1,000 mg 11/08/23 18:50 11/09/23 06:35 Sulfasalazine 500 Mg Tablet PO 1,000 mg Q12H SUZNA Administration Radiology Results: ITS Impressions Chest X-Ray 11/07/23 20:24 IMPRESSION: Small-moderate bilateral pleural effusion
--- NOTE | 2023-11-09 14:01 | PM.PNCARD ---
Progress Note: A&P Assessment and Plan (1) S/P CABG (coronary artery bypass graft): Code(s): Z95.1 - Presence of aortocoronary bypass graft Status: Acute (2) Atrial fibrillation with RVR: Code(s): I48.91 - Unspecified atrial fibrillation Status: Acute Plan 78-year-old man with chronic atrial fib and chronic valvular heart disease. He has been following for years with Cardiology at [place]. Patient was felt not to be a candidate for anticoagulation because of Crohn's disease as well. He is clinically doing well with respect to his atrial fib he requires high dose of metoprolol for rate control. Once that is been resumed in the hospital his rate control seems to be very good. He does have an element of LV systolic dysfunction and significant mitral and tricuspid regurgitation. He would benefit hemodynamically from Entresto. I am going to start that during this hospital stay and hopefully his hemodynamics will tolerate this. This should be attempted to achieve appropriate guideline directed medical therapy for his LV dysfunction and valvular disease. The patient wishes to transfer his follow-up to our practice as he is older does not wish to keep going in to [place] for cardiac appointments we will arrange for that upon his discharge. Jeffery Bustillos MD [facility] Subjective Date/time seen: Date of service: 11/09/23 14:01 Interval history: Follow-up visit in this 78-year-old man with chronic atrial fibrillation heart disease admitted to the hospital because of abdominal discomfort and concern regarding his incisional/abdominal hernias. Relatively well this afternoon sitting in his bedside chair and visit surgeons notes were reviewed and discussed again. They were of course happy to receive the news that he does not require surgical treatment of his hernia. Discussion with the patient and the family regarding his echocardiographic findings Exam Const: General: comfortable and no acute distress Other: Thin chronically ill-appearing man comfortable and cooperative HENMT: Mouth: Yes moist mucous membranes Eyes: Sclera: sclerae normal Neck: Neck: supple and no JVD Resp: Effort & Inspection: normal respiratory effort Auscultation: clear to auscultation bilaterally Cardio: Rate: regular rate Rhythm: abnormal rhythm irregularly irregular Other: 2/6 holosystolic apical murmur GI: GI Palp: Yes Soft to palpation Auscultation: normal bowel sounds Skin: Other: Appears dry and reduced turgor Neuro: Other: Alert and oriented x3 Objective Data Vital Signs Vital Signs: Vital Signs - 24 hr 11/08/23 17:29 11/08/23 16:00 11/08/23 20:00 Temperature Pulse Rate 96 95 91 Respiratory Rate Blood Pressure Pulse Oximetry Oxygen Delivery 11/08/23 21:20 11/08/23 20:00 11/08/23 20:00 Temperature 36.6 C Pulse Rate 106 H 96 Respiratory Rate 18 Blood Pressure 122/62 Pulse Oximetry 100 100 Oxygen Delivery Room Air 11/09/23 00:00 11/09/23 06:00 11/09/23 04:00 Temperature 36.6 C Pulse Rate 100 98 107 H Respiratory Rate 20 Blood Pressure 127/92 H Pulse Oximetry 95 Oxygen Delivery 11/09/23 08:25 11/09/23 09:17 11/09/23 10:56 Temperature Pulse Rate 104 H 104 H Respiratory Rate Blood Pressure Pulse Oximetry 94 Oxygen Delivery Room Air 11/09/23 08:00 11/09/23 12:00 Temperature Pulse Rate 114 H 94 Respiratory Rate Blood Pressure Pulse Oximetry Oxygen Delivery Intake/Output Intake/Output: Intake & Output 11/06/23 11/07/23 11/08/23 11/09/23 23:59 23:59 23:59 23:59 Intake Total 1999 1030 890 Output Total 100 1050 Balance 1900 1030 -160 Meds/Results Medications: Active Medications Generic Name Dose Route Start Last Admin Trade Name Freq PRN Reason Stop Dose Admin Allopurinol 100 mg 11/08/23 18:50 11/09/23 08:26 Allopurinol 100 Mg Tablet PO 100 mg DAILY SC
[2023-11-09] MEDS: AMPICILLIN SULB 3 GM/NS 100 ML 3 GM/100 ML VIAL IVPB (16:37)
[2023-11-09] MEDS: SALINE LOCK FLUSH 10 ML IV PUSH (21:30)
[2023-11-09] MEDS: SACUBITRIL/VALSARTAN 24-26 MG TABLET 1 TAB PO (21:30)
[2023-11-09] MEDS: AMPICILLIN SULB 1.5 GM/NS 50ML 1.5 GM/50 ML VIAL IVPB (22:49)
[2023-11-10] VITALS (10 sets, daily range): BP systolic 112–125; BP diastolic 77; PULSE 85–111; RESP 16–20; TEMP 36.4–37.2; O2SAT 94–96
[2023-11-10] MEDS: AMPICILLIN SULB 1.5 GM/NS 50ML 1.5 GM/50 ML VIAL IVPB ×2 (05:03→11:16)
[2023-11-10] MEDS: SALINE LOCK FLUSH 10 ML IV PUSH ×3 (05:04→20:19)
[2023-11-10 06:25] LABS: Basophils Absolute Auto 0.1 K/mm3 (0.0-0.1); Basophils Percent Auto 0.9 % (0.2-1.2); Eosinophils Absolute Auto 0.1 K/mm3 (0-0.3); Eosinophils Percent Auto 1.7 % (0-4.4); Hematocrit 33.4 % (42.0-52.0); Hemoglobin 10.2 g/dL (14.0-18.0); Immature Granulocyte Absolute 0.03 K/mm3 (0.00-0.031); Immature Granulocyte Percent A 0.4 % (0-0.5); Lymphocytes Percent Auto 8.5 % (18.3-44.2); Mean Corpuscular HGB Conc 30.5 g/dl (32-36); Mean Corpuscular Hemoglobin 31.6 pg (26-34); Mean Corpuscular Volume 103.4 fl (80-100); Mean Platelet Volume 9.5 fl (7.4-10.4); Monocytes Absolute Auto 0.8 K/mm3 (0.1-0.6); Monocytes Percent Auto 10.8 % (2.6-8.5); Neutrophils Absolute Auto 5.5 K/mm3 (1.3-6.7); Neutrophils Percent Auto 77.7 % (45.5-73.1); Nucleated Red Blood Cells Perc 0.3 % (0.0-0.2); Platelet Count Result 225 k/mm3 (150-375); Red Blood Count 3.23 M/mm3 (4.6-6.20); Red Cell Distribution Width 15.2 % (11.5-14.5)
[2023-11-10 06:46] LABS: Alanine Aminotransferase 27 U/L (6-50); Albumin Level 3.4 g/dL (3.5-5.1); Alkaline Phosphatase 125 U/L (38-126); Anion Gap 6 mmol/L (8-16); Aspartate Amino Transferase 34 U/L (17-59); Bilirubin,Total 0.6 mg/dL (0.2-1.3); Blood Urea Nitrogen 23 mg/dL (9-20); Calcium 7.9 mg/dL (8.4-10.2); Carbon Dioxide 26 mmol/L (22-30); Chloride 106 mmol/L (98-107); Estimated CRCL calculation 35 ml/min; Estimated Glomerular Filt Rate 42; Glucose 93 mg/dL (65-110); Potassium 3.4 mmol/L (3.4-5.0); Sodium 138 mmol/L (137-145)
--- NOTE | 2023-11-10 08:18 | PM.IMPN ---
Progress Note: A&P Assessment and Plan (1) Abdominal pain: Code(s): R10.9 - Unspecified abdominal pain Status: Acute Assessment and Plan: Hx of incisional hernia; Surgery consulted; no interventions planned. (2) Recurrent incisional hernia: Code(s): K43.2 - Incisional hernia without obstruction or gangrene Status: Acute Assessment and Plan: Surgery consulted; no interventions planned (3) Fluid overload: Code(s): E87.70 - Fluid overload, unspecified Status: Acute Assessment and Plan: On diuretics (4) New onset of congestive heart failure: Code(s): I50.9 - Heart failure, unspecified Status: Acute Assessment and Plan: on Lasix; Monitor for improvment (5) Atrial fibrillation with RVR: Code(s): I48.91 - Unspecified atrial fibrillation Status: Acute Assessment and Plan: on Metoprolol, According to the records he is considered to be not a candidate for anticoagulation because of his Crohn's disease (6) Chronic kidney disease, stage 3: Code(s): N18.30 - Chronic kidney disease, stage 3 unspecified Status: Acute Assessment and Plan: Avoid nephrotoxins (7) Asymptomatic bacteriuria: Code(s): R82.71 - Bacteriuria Status: Acute Assessment and Plan: Enterococcus spp on Unasyn (8) S/P CABG (coronary artery bypass graft): Code(s): Z95.1 - Presence of aortocoronary bypass graft Status: Acute Plan A 78 yo male patient with history of Crohn's disease, recurrent GI bleed(not anticoagulated due to this reason), 3 prior section ventral hernia, prior 2 coronary bypass surgery who presented to the ED for evaluation of abdominal pain which he thinks is coming from ventral had any a there has been was not informed about 1 week, reported associated nausea, and difficulty keeping food down due to pain.? He follows up with surgery for this problem on he has been on conservative management.? He denied chest pain, or reported new onset shortness of breath especially with exertion, and bilateral lower extremity swelling with cough.? He was found to have a elevated BNP, cardiomegaly, moderate bilateral pleural effusion with moderate ascites, echocardiogram done in 2021 showed dilated right heart chambers weight moderate mitral and tricuspid to regurgitations.? Patient was given IV push of 40 mg of furosemide.? Subsequently, he went into atrial fibrillation with RVS and needed IV pushes of metoprolol which is his home medication and also received oral dose that he takes at home, his heart rate improved Atrial fibrillation, acute on chronic systolic heart failure, mitral and tricuspid regurgitation Appreciate cardiology consult, Cardiology consider diet patient is not a candidate because of Crohn disease Recommend rate control with metoprolol Start Entresto p.o. Patient on Lasix 40 mg daily IV Recurrent incisional hernia Appreciate is general surgeon consultation no acute surgical issues UTI UA shows pyuria and microscopic hematuria Patient is on Unasyn IV CT showed empty bladder Urine culture grows Enterococcus spaces, susceptible to ampicillin Subjective Date/time seen: 11/10/23 08:18 Interval history: I saw exam patient today, patient feels comfortable, patient denies chest pain, shortness of breath at rest. Patient has BPH, need straight caths 4 times a day. Patient denies dysuria, urgency frequency. Patient has low-grade fever 99 during the night Exam Narrative: ? GENERAL: Pleasant, in no acute distress. Well-nourished. - EYES: EOMI. Anicteric. - HENT: Moist mucous membranes. - LUNGS: Coarse breath sound bilateral base, no wheezing, rhonchi, or rales. - CARDIOVASCULAR: Regular rate and rhythm. No murmur. No JVD. - ABDOMEN: Soft, non-tender and mild distended. Well-healing surgical scar due to ventral hernia repair, no palpable masses. - EXTREMITIES: 1+ lower extremities edema. Periphe
[2023-11-10] MEDS: METOPROLOL TARTRATE 50 MG TAB 150 MG PO ×2 (09:24→20:19)
[2023-11-10] MEDS: ASPIRIN 81 MG ENTERIC TABLET PO (09:24)
[2023-11-10] MEDS: ESCITALOPRAM OXALATE 10 MG TABLET 20 MG PO (09:24)
[2023-11-10] MEDS: FUROSEMIDE INJ 40 MG/4 ML VIAL IV PUSH (09:24)
[2023-11-10] MEDS: cilostazoL 100 MG TABLET PO (09:24)
[2023-11-10] MEDS: ATORVASTATIN 10 MG TABLET PO (09:24)
[2023-11-10] MEDS: FINASTERIDE 5 MG TABLET PO (09:24)
[2023-11-10] MEDS: allopurinoL 100 MG TABLET PO (09:24)
[2023-11-10] MEDS: SACUBITRIL/VALSARTAN 24-26 MG TABLET 1 TAB PO ×2 (09:24→20:19)
[2023-11-10] MEDS: sulfaSALAzine 500 MG TABLET 1000 MG PO ×2 (09:26→20:19)
--- NOTE | 2023-11-10 14:13 | PM.PNCARD ---
Progress Note: A&P Assessment and Plan (1) Cardiomyopathy: Code(s): I42.9 - Cardiomyopathy, unspecified Status: Acute Assessment and Plan: Mild reduction in LVSF, EF 40-45% BP is stable after initiation of Entresto. Continue at current dose. Can up titrate as an outpatient. He appears euvolemic on exam. Will shift from IV to p.o. furosemide. Overall stable from a cardiac standpoint (2) Atrial fibrillation with RVR: Code(s): I48.91 - Unspecified atrial fibrillation Status: Acute Assessment and Plan: Chronic atrial fibrillation managed with rate control, not felt to be a candidate for anticoagulation because of his Crohn's disease. Continue metoprolol at current dose. Can shift to Toprol XL at time of discharge for dosing convenience and since he has reduced EF Consider outpatient referral for LAAO device (3) S/P CABG (coronary artery bypass graft): Code(s): Z95.1 - Presence of aortocoronary bypass graft Status: Acute Subjective Date/time seen: 11/10/23 14:13 Interval history: Follow-up visit in this 78-year-old man with chronic atrial fibrillation heart disease admitted to the hospital because of abdominal discomfort and concern regarding his incisional/abdominal hernias. Date of service 11/10/23: He's feeling well today. Denies any shortness of breath. His blood pressure is stable with initiation of Entresto Review of Systems Review of Systems: ROS unobtainable: Yes unobtainable due to mental status Exam Const: General: comfortable and no acute distress HENMT: Mouth: Yes moist mucous membranes Eyes: Sclera: sclerae normal Neck: Neck: supple and no JVD Resp: Effort & Inspection: normal respiratory effort Auscultation: clear to auscultation bilaterally Other: Breath sounds are clear without rales rhonchi or wheezing Cardio: Jugular venous distension: JVD Rate: regular rate Rhythm: abnormal rhythm irregularly irregular Other: 2/6 holosystolic apical murmur GI: Auscultation: normal bowel sounds Other: Chronic incisional hernias noted, nontender Skin: General skin exam: normal color Other: Appears dry and reduced turgor Neuro: Other: Alert and oriented x3 Extrem: Other: Adequately perfused there is no edema at all Objective Data Vital Signs Vital Signs: Vital Signs - 24 hr 11/09/23 16:00 11/09/23 21:02 11/09/23 20:00 Temperature 37.0 C Pulse Rate 109 H 103 H Respiratory Rate 20 Blood Pressure 134/81 Pulse Oximetry 94 94 Oxygen Delivery Room Air 11/09/23 20:00 11/10/23 00:00 11/10/23 04:00 Temperature Pulse Rate 104 H 105 H 91 Respiratory Rate Blood Pressure Pulse Oximetry Oxygen Delivery 11/10/23 05:26 11/10/23 09:24 11/10/23 08:00 Temperature 37.2 C Pulse Rate 85 86 99 Respiratory Rate 20 Blood Pressure 122/77 Pulse Oximetry 94 Oxygen Delivery 11/10/23 08:00 11/10/23 12:00 Temperature Pulse Rate 96 Respiratory Rate Blood Pressure Pulse Oximetry Oxygen Delivery Room Air Intake/Output Intake/Output: Intake & Output 11/07/23 11/08/23 11/09/23 11/10/23 23:59 23:59 23:59 23:59 Intake Total 1999 1030 1420 958 Output Total 100 2350 1500 Balance 1900 1030 930 542 Meds/Results Medications: Active Medications Generic Name Dose Route Start Last Admin Trade Name Freq PRN Reason Stop Dose Admin Allopurinol 100 mg 11/08/23 18:50 11/10/23 09:24 Allopurinol 100 Mg Tablet PO 100 mg DAILY SUZAN Administration Aspirin 81 mg 11/09/23 09:00 11/10/23 09:24 Aspirin 81 Mg Enteric Tablet PO 81 mg QAM SUZAN Administration Atorvastatin Calcium 10 mg 11/08/23 18:50 11/10/23 09:24 Atorvastatin 10 Mg Tablet PO 10 mg DAILY SUZAN Administration Cilostazol 100 mg 11/08/23 18:50 11/10/23 09:24 Cilostazol 100 Mg Tablet PO 100 mg DAILY SUZAN Administration Escitalopram Oxalate 20 mg 02
[2023-11-10] MEDS: AMOXICILLIN 500 MG CAPSULE PO (20:19)
[2023-11-11] VITALS (8 sets, daily range): BP systolic 118–120; BP diastolic 69–89; PULSE 93–103; RESP 14–16; TEMP 36.2–36.8; O2SAT 94–98
[2023-11-11] MEDS: AMOXICILLIN 500 MG CAPSULE PO (05:55)
[2023-11-11] MEDS: SALINE LOCK FLUSH 10 ML IV PUSH (05:55)
[2023-11-11 07:11] LABS: Basophils Percent Auto 0.5 % (0.2-1.2); Eosinophils Absolute Auto 0.2 K/mm3 (0-0.3); Eosinophils Percent Auto 2.1 % (0-4.4); Hematocrit 33.7 % (42.0-52.0); Hemoglobin 10.4 g/dL (14.0-18.0); Immature Granulocyte Absolute 0.03 K/mm3 (0.00-0.031); Immature Granulocyte Percent A 0.4 % (0-0.5); Lymphocytes Absolute Auto 0.57 K/mm3 (0.9-3.2); Lymphocytes Percent Auto 7.5 % (18.3-44.2); Mean Corpuscular HGB Conc 30.9 g/dl (32-36); Mean Corpuscular Volume 103.7 fl (80-100); Mean Platelet Volume 9.7 fl (7.4-10.4); Monocytes Absolute Auto 0.9 K/mm3 (0.1-0.6); Monocytes Percent Auto 11.4 % (2.6-8.5); Neutrophils Absolute Auto 5.9 K/mm3 (1.3-6.7); Neutrophils Percent Auto 78.1 % (45.5-73.1); Platelet Count Result 227 k/mm3 (150-375); Red Blood Count 3.25 M/mm3 (4.6-6.20); Red Cell Distribution Width 15.2 % (11.5-14.5); White Blood Count 7.6 K/mm3 (4.5-10.0)
[2023-11-11 07:27] LABS: Alanine Aminotransferase 23 U/L (6-50); Albumin Level 3.1 g/dL (3.5-5.1); Alkaline Phosphatase 116 U/L (38-126); Anion Gap 4 mmol/L (8-16); Aspartate Amino Transferase 37 U/L (17-59); Bilirubin,Total 0.6 mg/dL (0.2-1.3); Blood Urea Nitrogen 20 mg/dL (9-20); Calcium 7.8 mg/dL (8.4-10.2); Carbon Dioxide 27 mmol/L (22-30); Chloride 108 mmol/L (98-107); Estimated CRCL calculation 38 ml/min; Estimated Glomerular Filt Rate 49; Glucose 94 mg/dL (65-110); Potassium 3.6 mmol/L (3.4-5.0); Sodium 139 mmol/L (137-145)
--- NOTE | 2023-11-11 08:08 | PM.IMPN ---
Progress Note: A&P Assessment and Plan (1) Abdominal pain: Code(s): R10.9 - Unspecified abdominal pain Status: Acute Assessment and Plan: Hx of incisional hernia; Surgery consulted; no interventions planned. (2) Recurrent incisional hernia: Code(s): K43.2 - Incisional hernia without obstruction or gangrene Status: Acute Assessment and Plan: Surgery consulted; no interventions planned (3) Fluid overload: Code(s): E87.70 - Fluid overload, unspecified Status: Acute Assessment and Plan: On diuretics (4) New onset of congestive heart failure: Code(s): I50.9 - Heart failure, unspecified Status: Acute Assessment and Plan: on Lasix; Monitor for improvment (5) Atrial fibrillation with RVR: Code(s): I48.91 - Unspecified atrial fibrillation Status: Acute Assessment and Plan: on Metoprolol, According to the records he is considered to be not a candidate for anticoagulation because of his Crohn's disease (6) Chronic kidney disease, stage 3: Code(s): N18.30 - Chronic kidney disease, stage 3 unspecified Status: Acute Assessment and Plan: Avoid nephrotoxins (7) Asymptomatic bacteriuria: Code(s): R82.71 - Bacteriuria Status: Acute Assessment and Plan: Enterococcus spp on Unasyn (8) S/P CABG (coronary artery bypass graft): Code(s): Z95.1 - Presence of aortocoronary bypass graft Status: Acute Plan A 78 yo male patient with history of Crohn's disease, recurrent GI bleed(not anticoagulated due to this reason), 3 prior section ventral hernia, prior 2 coronary bypass surgery who presented to the ED for evaluation of abdominal pain which he thinks is coming from ventral had any a there has been was not informed about 1 week, reported associated nausea, and difficulty keeping food down due to pain.? He follows up with surgery for this problem on he has been on conservative management.? He denied chest pain, or reported new onset shortness of breath especially with exertion, and bilateral lower extremity swelling with cough.? He was found to have a elevated BNP, cardiomegaly, moderate bilateral pleural effusion with moderate ascites, echocardiogram done in 2021 showed dilated right heart chambers weight moderate mitral and tricuspid to regurgitations.? Patient was given IV push of 40 mg of furosemide.? Subsequently, he went into atrial fibrillation with RVS and needed IV pushes of metoprolol which is his home medication and also received oral dose that he takes at home, his heart rate improved Atrial fibrillation, acute on chronic systolic heart failure, mitral and tricuspid regurgitation Appreciate cardiology consult, Cardiology consider the patient is not a candidate a blood thinner because of Crohn disease Recommend rate control with metoprolol Start Entresto p.o. 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 Mild left ventricular enlargement with mildly reduced systolic function ejection fraction 40-45%. ? 3. Severe biatrial enlargement. ? 4. Moderate mitral and tricuspid regurgitation. ? 5. Atrial fibrillation. ? 6. TR velocities are consistent with modestly elevated PA pressure. Continue Lasix IV Patient has negative input output balance 1900 mL Recurrent incisional hernia Appreciate is general surgeon consultation no acute surgical issues UTI UA shows pyuria and microscopic hematuria Patient is on Unasyn IV CT showed empty bladder Urine culture grows Enterococcus spaces, susceptible to ampicillin Changed to Augmentin p.o. Subjective Date/time seen: 11/11/23 08:08 Interval history: I saw exam patient today, patient feel
[2023-11-11] MEDS: METOPROLOL TARTRATE 50 MG TAB 150 MG PO (09:15)
[2023-11-11] MEDS: cilostazoL 100 MG TABLET PO (09:16)
[2023-11-11] MEDS: ASPIRIN 81 MG ENTERIC TABLET PO (09:16)
[2023-11-11] MEDS: SACUBITRIL/VALSARTAN 24-26 MG TABLET 1 TAB PO (09:17)
[2023-11-11] MEDS: ESCITALOPRAM OXALATE 10 MG TABLET 20 MG PO (09:17)
[2023-11-11] MEDS: FINASTERIDE 5 MG TABLET PO (09:17)
[2023-11-11] MEDS: ATORVASTATIN 10 MG TABLET PO (09:18)
[2023-11-11] MEDS: FUROSEMIDE 40 MG TABLET PO (09:18)
[2023-11-11] MEDS: allopurinoL 100 MG TABLET PO (09:18)
[2023-11-11] MEDS: sulfaSALAzine 500 MG TABLET 1000 MG PO (09:19)
--- NOTE | 2023-11-11 10:01 | PM.PNCARD ---
Progress Note: A&P Assessment and Plan (1) Cardiomyopathy: Code(s): I42.9 - Cardiomyopathy, unspecified Status: Acute Assessment and Plan: Mild reduction in LVSF, EF 40-45% BP is stable after initiation of Entresto. Continue at current dose. Can up titrate as an outpatient. He appears euvolemic on exam. Continue p.o. furosemide Overall stable from a cardiac standpoint He has a follow up appointment scheduled with Dr. Bustillos in a few weeks Cardiology will sign off please call with any questions. (2) Atrial fibrillation with RVR: Code(s): I48.91 - Unspecified atrial fibrillation Status: Acute Assessment and Plan: Chronic atrial fibrillation managed with rate control, not felt to be a candidate for anticoagulation because of his Crohn's disease. Continue metoprolol at current dose. Can shift to Toprol XL at time of discharge for dosing convenience and since he has reduced EF Consider outpatient referral for LAAO device (3) S/P CABG (coronary artery bypass graft): Code(s): Z95.1 - Presence of aortocoronary bypass graft Status: Acute Subjective Date/time seen: 11/11/23 10:01 Interval history: Follow-up visit in this 78-year-old man with chronic atrial fibrillation heart disease admitted to the hospital because of abdominal discomfort and concern regarding his incisional/abdominal hernias. Date of service 11/10/23: He's feeling well today. Denies any shortness of breath. His blood pressure is stable with initiation of Entresto Date of service 11/11/23: Continues to feel well. He has no complaints this morning. Eager to go home. Review of Systems Review of Systems: All systems reviewed & are unremarkable except as noted in HPI and below Exam Const: General: comfortable and no acute distress Other: Thin chronically ill-appearing man comfortable and cooperative HENMT: Mouth: Yes moist mucous membranes Eyes: Sclera: sclerae normal Neck: Neck: supple and JVD Resp: Effort & Inspection: normal respiratory effort Auscultation: clear to auscultation bilaterally Other: Breath sounds are clear without rales rhonchi or wheezing Cardio: Jugular venous distension: JVD Rate: regular rate Rhythm: abnormal rhythm irregularly irregular Other: 2/6 holosystolic apical murmur GI: Auscultation: normal bowel sounds Other: Chronic incisional hernias noted, nontender Skin: General skin exam: normal color Other: Appears dry and reduced turgor Neuro: Other: Alert and oriented x3 Extrem: Other: Adequately perfused there is no edema at all Objective Data Vital Signs Vital Signs: Vital Signs - 24 hr 11/10/23 12:00 11/10/23 14:00 11/10/23 16:00 Temperature 37.1 C Pulse Rate 96 96 100 Respiratory Rate 18 Blood Pressure 112/77 Pulse Oximetry 96 Oxygen Delivery 11/10/23 19:49 11/10/23 20:00 11/10/23 20:00 Temperature 36.4 C Pulse Rate 100 111 H Respiratory Rate 16 Blood Pressure 125/77 Pulse Oximetry 96 96 Oxygen Delivery Room Air 11/11/23 00:00 11/11/23 04:00 11/11/23 05:44 Temperature 36.8 C Pulse Rate 98 98 93 Respiratory Rate 14 Blood Pressure 120/69 Pulse Oximetry 94 Oxygen Delivery 11/11/23 09:12 11/11/23 09:15 Temperature 36.2 C L Pulse Rate 95 100 Respiratory Rate 16 Blood Pressure 118/89 Pulse Oximetry 98 Oxygen Delivery Intake/Output Intake/Output: Intake & Output 11/08/23 11/09/23 11/10/23 11/11/23 23:59 23:59 23:59 23:59 Intake Total 1030 1420 1198 250 Output Total 2350 3400 350 Balance 1030 -930 -2202 -100 Meds/Results Medications: Active Medications Generic Name Dose Route Start Last Admin Trade Name Freq PRN Reason Stop Dose Admin Allopurinol 100 mg 11/08/23 18:50 11/11/23 09:18 Allopurinol 100 Mg Tablet PO 100 mg DAILY SUZAN Administration Amoxicillin 500 mg 11/10/23 20:00 11/11/23 05:55 Am
--- NOTE | 2023-11-11 12:43 | PM.DS ---
DS: Admitting Diagnosis Discharge Date 11/11/23 Admitting Diagnosis (1) Abdominal pain: ?Code(s): R10.9 - Unspecified abdominal pain ?Status:?Acute ?Assessment and Plan: Hx of incisional hernia; Surgery consulted; no interventions planned. (2) Recurrent incisional hernia: ?Code(s): K43.2 - Incisional hernia without obstruction or gangrene ?Status:?Acute ?Assessment and Plan: Surgery consulted; no interventions planned (3) Fluid overload: ?Code(s): E87.70 - Fluid overload, unspecified ?Status:?Acute ?Assessment and Plan: On diuretics (4) New onset of congestive heart failure: ?Code(s): I50.9 - Heart failure, unspecified ?Status:?Acute ?Assessment and Plan: on Lasix; Monitor for improvment (5) Atrial fibrillation with RVR: ?Code(s): I48.91 - Unspecified atrial fibrillation ?Status:?Acute ?Assessment and Plan: on Metoprolol, According to the records he is considered to be not a candidate for anticoagulation because of his Crohn's disease (6) Chronic kidney disease, stage 3: ?Code(s): N18.30 - Chronic kidney disease, stage 3 unspecified ?Status:?Acute ?Assessment and Plan: Avoid nephrotoxins (7) Asymptomatic bacteriuria: ?Code(s): R82.71 - Bacteriuria ?Status:?Acute ?Assessment and Plan: Enterococcus spp on Unasyn (8) S/P CABG (coronary artery bypass graft): ?Code(s): Z95.1 - Presence of aortocoronary bypass graft ?Status:?Acute DS: Discharge Diagnosis Discharge Diagnosis (1) Abdominal pain: Code(s): R10.9 - Unspecified abdominal pain Status: Acute Assessment and Plan: Hx of incisional hernia; Surgery consulted; no interventions planned. (2) Recurrent incisional hernia: Code(s): K43.2 - Incisional hernia without obstruction or gangrene Status: Acute Assessment and Plan: Surgery consulted; no interventions planned (3) Fluid overload: Code(s): E87.70 - Fluid overload, unspecified Status: Acute Assessment and Plan: On diuretics (4) New onset of congestive heart failure: Code(s): I50.9 - Heart failure, unspecified Status: Acute Assessment and Plan: on Lasix; Monitor for improvment (5) Atrial fibrillation with RVR: Code(s): I48.91 - Unspecified atrial fibrillation Status: Acute Assessment and Plan: on Metoprolol, According to the records he is considered to be not a candidate for anticoagulation because of his Crohn's disease (6) Chronic kidney disease, stage 3: Code(s): N18.30 - Chronic kidney disease, stage 3 unspecified Status: Acute Assessment and Plan: Avoid nephrotoxins (7) Asymptomatic bacteriuria: Code(s): R82.71 - Bacteriuria Status: Acute Assessment and Plan: Enterococcus spp on Unasyn (8) S/P CABG (coronary artery bypass graft): Code(s): Z95.1 - Presence of aortocoronary bypass graft Status: Acute DS: Summary Hospital Course Hospital Course: A 78 yo male patient with history of Crohn's disease, recurrent GI bleed(not anticoagulated due to this reason), 3 prior section ventral hernia, prior 2 coronary bypass surgery who presented to the ED for evaluation of abdominal pain which he thinks is coming from ventral had any a there has been was not informed about 1 week, reported associated nausea, and difficulty keeping food down due to pain.? He follows up with surgery for this problem on he has been on conservative management.? He denied chest pain, or reported new onset shortness of breath especially with exertion, and bilateral lower extremity swelling with cough.? He was found to have a elevated BNP, cardiomegaly, moderate bilateral pleural effusion with moderate ascites, echocardiogram done in 2021 showed dilated right heart chambers weight moderate mitral and tricuspid to regurgitations.? Patient was given IV push of 40 mg of furosem
== END 2023-11-11 14:40 | disposition home or self-care (01) | DRG 291 ==
LOC: ANHED 21:08 → ANH3MEDSUR 11-08 00:50
PROVIDERS: Internal Medicine; Physician Assistant; Admitting Provider Student in an Organized Health Care Education/Training Program; Emergency Provider Emergency Medicine; PCP Internal Medicine; Visit Provider Hospitalist
DX: I13.0 Hypertensive heart and chronic kidney disease with heart failure and stage 1 through stage 4 chronic kidney disease, or unspecified chronic kidney disease (principal); I50.21 Acute systolic (congestive) heart failure; I48.20 Chronic atrial fibrillation, unspecified; K50.90 Crohn's disease, unspecified, without complications; N39.0 Urinary tract infection, site not specified; N18.30 Chronic kidney disease, stage 3 unspecified; I25.10 Atherosclerotic heart disease of native coronary artery without angina pectoris; I08.1 Rheumatic disorders of both mitral and tricuspid valves; E87.70 Fluid overload, unspecified; E53.8 Deficiency of other specified B group vitamins; E78.5 Hyperlipidemia, unspecified; D64.9 Anemia, unspecified; K43.2 Incisional hernia without obstruction or gangrene; N40.0 Benign prostatic hyperplasia without lower urinary tract symptoms; M19.90 Unspecified osteoarthritis, unspecified site; R56.9 Unspecified convulsions; F01.50 Vascular dementia, unspecified severity, without behavioral disturbance, psychotic disturbance, mood disturbance, and anxiety; F32.A Depression, unspecified; Z20.822 Contact with and (suspected) exposure to COVID-19; Z95.1 Presence of aortocoronary bypass graft; Z79.82 Long term (current) use of aspirin; Z87.891 Personal history of nicotine dependence
CPT/HCPCS: 36415; 36569; 71045; 74177; 80048; 80053; 81001; 83605; 83690; 83880; 85025; 87086; 87181; 87637; 93005; 93306; 96361; 96374; 96375; 96376; 99285; A9270; C1751; J0295; J1940; J7030; Q9967

== ENCOUNTER 2024-05-12 15:11 | Inpatient (IN) | payer MEDICARE, SELFPAY ==
[2024-05-12] VITALS (9 sets, daily range): BP systolic 80–120; BP diastolic 54–76; PULSE 68–92; RESP 12–20; TEMP 34.3–36.4; O2SAT 92–96; BMI 20.8
--- NOTE | ~2024-05-12 | US_ITS ---
EXAMINATION: US renal BI DATE: 05/14/2024 09:49 INDICATION: Acute on chronic kidney disease. TECHNIQUE: Multiple ultrasound grayscale images of the kidneys were obtained. COMPARISON: CT abdomen and pelvis 11/07/2023 FINDINGS: The right kidney measures 10.4 x 5.4 x 4.3 cm. The left kidney measures 9.7 x 5.6 x 4.0 cm. There is cortical thinning of the kidneys. The kidneys demonstrate normal parenchymal echogenicity. There is a 9 mm cyst in right kidney. There is no hydronephrosis. The bladder is decompressed by a Babin cathet er. IMPRESSION: 1. Mild atrophy of the kidneys. No hydronephrosis. Reviewed, dictated and finalized at location A.
--- NOTE | ~2024-05-12 | XR_ITS ---
XR chest 1V portable 05/17/2024 12:56 Indication: Dyspnea Procedure: AP portable chest Comparison: Comparison to multiple prior studies sequentially, with oldest reviewed study dated 08/23. Findings: Status post median sternotomy for CABG. Cardiomegaly. Mild interstitial edema. Small pleura l effusions. No pneumothorax. Impression: 1: Cardiomegaly with interstitial edema. 2: Small pleural effusions. Reviewed, dictated and finalized at location B. Impression: 1: Cardiomegaly with interstitial edema. 2: Small pleural effusions.
--- NOTE | ~2024-05-12 | XR_ITS ---
EXAMINATION: XR chest 1V portable DATE: 05/12/2024 17:24 INDICATION: Possible sepsis TECHNIQUE: frontal view of the chest was obtained. COMPARISON: Chest radiograph dated 11/07/2023 FINDINGS: Blunting of bilateral costophrenic angles consistent with decreased now very small bilateral pleural effusions. Improvement in mild opacities at bilateral lung bases. Skinfolds project over the bilatera l upper lungs. Hydropneumothorax. Mild cardiomegaly. Median sternotomy wires, ostial markers and medi astinal surgical clips consistent with prior coronary artery bypass grafting. There are bridging oste ophytes at multiple levels consistent with diffuse idiopathic skeletal hyperostosis (DISH). IMPRESSION: 1. Mild opacities in bilateral lung bases consistent with very small bilateral pleural effusions and associated atelectasis, mild pulmonary edema or pneumonia. 2. Cardiomegaly. Reviewed, dictated and finalized at location A. IMPRESSION: 1. Mild opacities in bilateral lung bases consistent with very small bilateral pleural effusions and associated atelectasis, mild pulmonary edema or pneumonia . 2. Cardiomegaly.
--- NOTE | 2024-05-12 16:19 | ED.WEAKNESS ---
HPI - Weakness General Chief complaint: Weakness <Renea Osborne APRN - Last Filed: 05/12/24 16:42> Stated complaint: hypotensive, UTI from [facility] <Renea Osborne APRN - Last Filed: 05/12/24 16:42> Time Seen by Provider: 05/12/24 16:20 <Renea Osboren APRN - Last Filed: 05/12/24 16:42> Focused HPI: Pt is a 79-year-old who presents to the ER with complaints of increased weakness and lethargy. He was diagnosed with a UTI on May 01 and placed on Ciprofloxacin. Pt regularly straight caths himself. He went to his PCP earlier today. They tested his urine and his reports they told her he still has a UTI. Pt has a history of Crohn's disease and kidney infections. Pt's reports he has been afebrile, but has the chills. He has also had increased tiredness. GENERAL: Well-appearing, well-nourished, and in no acute distress. HEAD: Normocephalic, atraumatic. CHEST: Clear to auscultation. ?No respiratory distress. HEART: Regular rate and rhythm.? NEURO: ?Alert and oriented x3. Patient screened in triage and initial orders placed.? ?Additional care and disposition to be based upon?diagnostic testing and treatment. <Renea Osborne APRN - Last Filed: 05/12/24 16:42> Source: patient and family <eRnea Osborne APRN - Last Filed: 05/12/24 16:42> Mode of arrival: wheelchair <Renea Osborne APRN - Last Filed: 05/12/24 16:42> Limitations: dementia <Renea Osborne APRN - Last Filed: 05/12/24 16:42> History of Present Illness HPI Narrative: 79-year-old male presenting with weakness, fatigue, decreased appetite. His is at bedside and helps with the history. States that he has been struggling with recurrent UTIs. He has urinary retention and uses a straight cath. States that he has also been very cold lately. He denies any pain. Denies nausea or vomiting. He does complain of nasal congestion and some coughing lately. <Maribel Nicholson MD - Last Filed: 05/13/24 20:58> Related Data Home medications: Home Medications Medication Instructions Recorded Confirmed Lactobacillus 1 cap PO DAILY 11/08/23 05/12/24 acidophilus-Bifidobac.animalis 2.5 billion cell capsule (Daily Probiotic) allopurinol 100 mg tablet 100 mg PO DAILY 11/08/23 05/12/24 aspirin 81 mg tablet 81 mg PO DAILY 11/08/23 05/12/24 atorvastatin 10 mg tablet 10 mg PO DAILY 11/08/23 05/12/24 cilostazol 100 mg tablet 100 mg PO DAILY 11/08/23 05/12/24 coenzyme Q10 200 mg capsule (Co 200 mg PO DAILY 11/08/23 05/12/24 Q-10) escitalopram oxalate 20 mg tablet 20 mg PO DAILY 11/08/23 05/12/24 metoprolol tartrate 100 mg tablet 150 mg PO Q12H 11/08/23 05/12/24 multivit with minerals-iron 18 1 tablet PO DAILY 11/08/23 05/12/24 mg-folic ac 400 mcg-vit K 25 mcg tablet (Adults Multivitamin) Folcaps [place]-3 1 cap PO BID 05/12/24 05/12/24 fluticasone propionate 50 1 spray intranasal DAILY 05/12/24 05/12/24 mcg/actuation nasal spray,suspension furosemide 40 mg tablet 40 mg PO DAILY 05/12/24 05/12/24 <Renea Osborne APRN - Last Filed: 05/12/24 16:42> Allergies/Adverse reactions: Allergies Allergy/AdvReac Type Severity Reaction Status Date / Time No Known Allergies Allergy Verified 11/07/23 19:49 <Renea Osborne APRN - Last Filed: 05/12/24 16:42> Review of Systems Review of Systems: All systems reviewed & are unremarkable except as noted in HPI and below <Maribel Nicholson MD - Last Filed: 05/13/24 20:58> PMFSH Past Medical History Medical History: Medical History Abdominal pain B12 deficiency Benign prostatic hyperplasia Chronic anemia Chronic kidney disease, stage 3 Coronary artery disease Crohn's disease Depression Gout Hyperlipidemia Hypertension Iron deficiency anemia Kidney stones Osteoarthritis Peripheral vascular disease Seizures Vascular dementia
--- NOTE | 2024-05-12 16:29 | ECG_ITS ---
Test Date: 2024-05-12 16:37:43 Measurements Intervals [place] Rate: 81 P: 0 MO: 0 QRS: 49 QRSD: 102 T: 36 QT: 407 QTc: 474 Interpretive Statements ATRIAL FIBRILLATION WITH ABERRANT CONDUCTION OR VENTRICULAR PREMATURE COMPLEXES ABNORMAL RHYTHM ECG No previous ECG available for comparison Electronically Signed On 05-13-2024 14:27:59 CDT by Senia Oleary M.D.
[2024-05-12 16:54] LABS: Basophils Absolute Auto 0.1 K/mm3 (0.0-0.1); Basophils Percent Auto 0.5 % (0.2-1.2); Eosinophils Absolute Auto 0.3 K/mm3 (0-0.3); Eosinophils Percent Auto 3.3 % (0-4.4); Hematocrit 37.2 % (42.0-52.0); Hemoglobin 12.4 g/dL (14.0-18.0); Immature Granulocyte Absolute 0.05 K/mm3 (0.00-0.031); Immature Granulocyte Percent A 0.5 % (0-0.5); Lymphocytes Absolute Auto 1.02 K/mm3 (0.9-3.2); Lymphocytes Percent Auto 10.5 % (18.3-44.2); Mean Corpuscular HGB Conc 33.3 g/dl (32-36); Mean Corpuscular Volume 96.1 fl (80-100); Mean Platelet Volume 10.1 fl (7.4-10.4); Monocytes Absolute Auto 0.8 K/mm3 (0.1-0.6); Monocytes Percent Auto 8.5 % (2.6-8.5); Neutrophils Absolute Auto 7.5 K/mm3 (1.3-6.7); Neutrophils Percent Auto 76.7 % (45.5-73.1); Platelet Count Result 187 k/mm3 (150-375); Red Blood Count 3.87 M/mm3 (4.6-6.20); Red Cell Distribution Width 14.1 % (11.5-14.5); White Blood Count 9.8 K/mm3 (4.5-10.0)
[2024-05-12 17:08] LABS: INR 1.2; Partial Thromboplastin Time 31.3 Seconds (22.3-36.8); Prothrombin Time 15.5 Seconds (11.1-14.7)
[2024-05-12 17:14] LABS: Sodium 139 mmol/L (137-145)
[2024-05-12 17:16] LABS: Lactic Acid Reflex 0.8 mmol/L (0.7-2.0)
[2024-05-12 17:22] LABS: Alanine Aminotransferase 100 U/L (6-50); Albumin Level 4.5 g/dL (3.5-5.1); Alkaline Phosphatase 95 U/L (38-126); Anion Gap 16 mmol/L (4-12); Aspartate Amino Transferase 72 U/L (17-59); Bilirubin,Total 0.7 mg/dL (0.2-1.3); Blood Urea Nitrogen 56 mg/dL (9-20); CRP < 0.5 mg/dL (<1.0); Calcium 8.7 mg/dL (8.4-10.2); Carbon Dioxide 17 mmol/L (22-30); Chloride 106 mmol/L (98-107); Estimated CRCL calculation 15 ml/min; Estimated Glomerular Filt Rate 18; Glucose 88 mg/dL (65-110); Potassium 3.6 mmol/L (3.4-5.0)
[2024-05-12 17:28] LABS: Troponin I < 0.012 ng/mL (0.000-0.034)
[2024-05-12] MEDS: SODIUM CHLORIDE 0.9% IV 1,000 ML 999 ML IV CONT ×2 (17:57)
[2024-05-12 18:24] LABS: Add Urine Microscopic? YES; Appearance Urine Turbid (Clear); Bacteria Urine 4+ /hpf; Bilirubin Urine Negative (Negative); Blood Urine 2+ (Negative); Color Urine Yellow (Yellow); Glucose Urine UA Negative (Negative); Ketones Urine Negative (Negative); Leukocyte Esterase Ur 3+ LEU/UL (Negative); Need Manual Microscopic Reviewed; Nitrate Urine Negative (Negative); Non Pathogenic Casts >20; Protein Urine 1+ mg/dL (Negative); RBC Urine 0-2 /hpf (0-2); Squamous Epithelial Cell Urine Many /hpf (Few); Urobilinogen Urine 0.2 mg/dL (<2.0); WBC Urine >100 /hpf (0-3); pH Urine 5.5 (5.0-9.0)
[2024-05-12 18:49] LABS: Influenza A QL RT-PCR Negative (Negative); Influenza B QL RT-PCR Negative (Negative); RSV RNA, RT-PCR Negative (Negative); SARS-CoV-2 RNA PCR Negative (Negative)
[2024-05-12] MEDS: cefTRIAXone 2 GM/NS 100 ML 2 GM/100 ML BAG IVPB (18:58)
[2024-05-12] MEDS: VANCOMYCIN 1,000 MG/NS 250 ML 1,000 MG/250 ML BAG 250 MG IVPB (20:12)
--- NOTE | 2024-05-12 20:56 | ADMGEN ---
This patient, Vitaly Oreilly, was admitted to Medical Room 252-. Patient/family oriented to hospital policies and general routines including ID bracelet, bed and alarms, visiting hours, pain management, procedures, bathroom and other care routines, personal items, smoking policy, room service/diet, and visiting hours. Information on how to activate the Rapid Response Team has been discussed. Patient/Family are encouraged to report perceived risks to care and to ask questions if they do not understand what they are told or what they should do.
[2024-05-12] MEDS: LACTATED RINGERS 1,000 ML 100 ML IV CONT (23:48)
[2024-05-13] VITALS (11 sets, daily range): BP systolic 95–118; BP diastolic 47–62; PULSE 78–99; RESP 18–20; TEMP 36.5–36.7; O2SAT 98–100
--- NOTE | 2024-05-13 00:30 | PM.IMHP ---
H&P: HPI History of Present Illness Date/Time: 05/13/24 00:30 Chief Complaint: UTI with PREMA Narrative: This is a 79-year-old male patient with a past history of hypertension, cardiomyopathy, AFib, stage III CKD, Crohn's disease and urinary retention requiring self catheterization who is evaluated for increasing weakness and lethargy. Patient was placed on ciprofloxacin on May 01 for UTI but he was not getting better. In the emergency department patient was found to have low blood pressures with systolic in the 80s. Labs in the emergency department patient has a normal white blood cell count of 9.8 but has findings of renal failure with a creatinine of 3.3 which is double his baseline, BUN of 56 also double baseline and decreased carbon dioxide of 17 with an anion gap of 16. Patient was treated with 30 milliliters/kilogram of IV fluid bolus and initiated on Rocephin in the ER. My review of prior urine cultures shows Enterococcus in the past so patient was also started on vancomycin. Blood cultures were obtained and urine culture is also in process. Lactic acid was not drawn. We will obtain lactic acid and procalcitonin with morning labs. Review of Systems Review of Systems: ROS unobtainable: Yes unobtainable due to mental status (Patient quite confused) COUNT INCLUDES [facility] Past Medical History Medical History Abdominal pain B12 deficiency Benign prostatic hyperplasia Chronic anemia Chronic kidney disease, stage 3 Coronary artery disease Crohn's disease Depression Gout Hyperlipidemia Hypertension Iron deficiency anemia Kidney stones Osteoarthritis Peripheral vascular disease Seizures Vascular dementia Surgical History Surgical History History of bilateral cataract extraction History of cholecystectomy History of coronary artery bypass graft History of lithotripsy History of partial colectomy X2 for to bowel obstructions and fistula secondary to Crohn's disease. History of vascular surgery Bilateral lower extremity stents. Family History Family History Father Myocardial infarct Cerebrovascular accident Mother Breast cancer Sibling Crohn's disease Social History Social History Social History: Surrogate decision maker: Sarah Oreilly, spouse. Code status: Do not resuscitate. Smoking packs per day: 2 Smoking cigarettes per day: 40.0 Years smoked: 25 Smoking pack-years: 50.00 Smoking status: Former smoker Second hand tobacco smoke exposure: No Alcohol intake: never Drinks per week: 1 Substance use: never Substance use type: does not use Other substance usage details: pt unable to answer confused Do You Feel Safe in your Home?: Yes Lack of Transportation: No Lack of Food: Never True Current Housing: I Have Housing Concerned About Future Housing: No Difficulty Paying Gas/Electric Bills: No Difficulty Paying for Meds: No Currently Unemployed: No Education: High School Diploma/GED Difficulty w/ Childcare or Family Care: No Additional living arrangements comments: The patient lives with his in [place]. Additional occupation/education comments: Retired from [employer]. Spiritual care concerns: No Meds Home Medications and Allergies Home Medications Medication Instructions Recorded Confirmed Type Lactobacillus 1 cap PO DAILY 11/08/23 05/12/24 History acidophilus-Bifidobac.animalis 2.5 billion cell capsule (Daily Probiotic) allopurinol 100 mg tablet 100 mg PO DAILY 11/08/23 05/12/24 History aspirin 81 mg tablet 81 mg PO DAILY 11/08/23 05/12/24 History atorvastatin 10 mg tablet 10 mg PO DAILY 11/08/23 05/12/24 History cilostazol 100 mg tablet 100 mg PO DAILY 11/08/23 05/12/24 History coenzyme Q10 200 mg cap
[2024-05-13 06:03] LABS: Basophils Absolute Auto 0.1 K/mm3 (0.0-0.1); Basophils Percent Auto 0.6 % (0.2-1.2); Eosinophils Absolute Auto 0.3 K/mm3 (0-0.3); Eosinophils Percent Auto 2.6 % (0-4.4); Hematocrit 33.6 % (42.0-52.0); Hemoglobin 11.1 g/dL (14.0-18.0); Immature Granulocyte Absolute 0.05 K/mm3 (0.00-0.031); Immature Granulocyte Percent A 0.5 % (0-0.5); Lymphocytes Absolute Auto 0.66 K/mm3 (0.9-3.2); Lymphocytes Percent Auto 6.1 % (18.3-44.2); Mean Corpuscular Hemoglobin 31.6 pg (26-34); Mean Corpuscular Volume 95.7 fl (80-100); Mean Platelet Volume 9.7 fl (7.4-10.4); Monocytes Absolute Auto 0.9 K/mm3 (0.1-0.6); Monocytes Percent Auto 8.5 % (2.6-8.5); Neutrophils Absolute Auto 8.8 K/mm3 (1.3-6.7); Neutrophils Percent Auto 81.7 % (45.5-73.1); Platelet Count Result 149 k/mm3 (150-375); Red Blood Count 3.51 M/mm3 (4.6-6.20); Red Cell Distribution Width 13.8 % (11.5-14.5); White Blood Count 10.8 K/mm3 (4.5-10.0)
[2024-05-13 06:23] LABS: Alanine Aminotransferase 86 U/L (6-50); Albumin Level 3.3 g/dL (3.5-5.1); Alkaline Phosphatase 91 U/L (38-126); Anion Gap 12 mmol/L (4-12); Aspartate Amino Transferase 64 U/L (17-59); Bilirubin,Total 0.5 mg/dL (0.2-1.3); Blood Urea Nitrogen 46 mg/dL (9-20); Calcium 8.4 mg/dL (8.4-10.2); Carbon Dioxide 16 mmol/L (22-30); Chloride 111 mmol/L (98-107); Estimated CRCL calculation 18 ml/min; Estimated Glomerular Filt Rate 21; Glucose 95 mg/dL (65-110); Magnesium 1.8 mg/dL (1.6-2.3); Potassium 3.3 mmol/L (3.4-5.0); Sodium 139 mmol/L (137-145)
[2024-05-13 06:27] LABS: Lactic Acid Reflex 0.7 mmol/L (0.7-2.0)
[2024-05-13 06:40] LABS: Procalcitonin 0.3 ng/mL
[2024-05-13] MEDS: POTASSIUM CHLORIDE 20 MEQ PACKET (FOR LIQUID) 40 MEQ PO (07:35)
[2024-05-13 08:27] LABS: Glucose Point of Care 81 mg/dl (65-105)
[2024-05-13] MEDS: POTASSIUM CHLORIDE INJ 40 MEQ in SODIUM CHLORIDE 0.9% IV 500 ML 130 MEQ IVPB (09:23)
[2024-05-13] MEDS: SODIUM BICARBONATE 8.4% 50 MEQ/50 ML SYRINGE IV PUSH (09:24)
[2024-05-13] MEDS: LACTATED RINGERS 1,000 ML 100 ML IV CONT (09:27)
[2024-05-13] MEDS: ASPIRIN 81 MG ENTERIC TABLET PO (09:27)
[2024-05-13] MEDS: ESCITALOPRAM OXALATE 10 MG TABLET 20 MG PO (09:27)
[2024-05-13] MEDS: ATORVASTATIN 10 MG TABLET PO (09:28)
[2024-05-13] MEDS: SODIUM BICARBONATE TAB 650 MG TABLET PO ×2 (09:28→17:26)
[2024-05-13] MEDS: FLUTICASONE PROPIONATE 0.05% NA SPR 16 GM BTL (*BKC) 1 SPRAY NASAL (09:28)
[2024-05-13] MEDS: MULTIVITAMINS /C LUTEIN (CENTRUM SILVER) TABLET *BKC 1 TAB PO (09:28)
[2024-05-13] MEDS: cilostazoL 100 MG TABLET PO (09:28)
[2024-05-13] MEDS: ENOXAPARIN 30 MG/0.3 ML SYRINGE SUB-Q (09:28)
--- NOTE | 2024-05-13 13:33 | PM.IMPN ---
Progress Note: A&P Assessment and Plan (1) Acute kidney injury superimposed on CKD: Code(s): N17.9 - Acute kidney failure, unspecified; N18.9 - Chronic kidney disease, unspecified Status: Acute Assessment and Plan: History of CKD stage 3 but BUN creatinine is 2.9 usually runs at 1.6 Continue fluid hydration Cxr shows mall bilateral pleural effusions will cut back the rate but will continue to hydrate (2) UTI (urinary tract infection): Code(s): N39.0 - Urinary tract infection, site not specified Status: Acute Assessment and Plan: Patient self catheterizes at home for chronic urinary retention Prior urine cultures have grown Enterococcus or yeast Due to Enterococcus on prior urine culture, initiated vancomycin which is to be dosed by pharmacy due to renal failure Watch for UC will add IV rocephin also for better coverage (3) Sepsis: Code(s): A41.9 - Sepsis, unspecified organism Status: Acute Assessment and Plan: Presumed urogenital source Metabolic acidosis noted on chemistry panel,watch lactic levels (4) Cardiomyopathy: Code(s): I42.9 - Cardiomyopathy, unspecified Status: Acute Assessment and Plan: Prior EF 40-45%, furosemide, metoprolol and Entresto are home medications were held can reintroduce few today (5) Atrial fibrillation: Code(s): I48.91 - Unspecified atrial fibrillation Status: Acute Assessment and Plan: Not anticoagulated due to Crohn's disease (6) Urinary retention: Code(s): R33.9 - Retention of urine, unspecified Status: Acute Assessment and Plan: Babin catheter in place as patient usually self catheterizes but is too confused to do so at this time Subjective Date/time seen: 05/13/24 13:33 Interval history: Interval history: 79-year-old male patient with a past history of hypertension, cardiomyopathy, AFib, stage III CKD, Crohn's disease and urinary retention requiring self catheterization who is evaluated for increasing weakness and lethargy. Patient was placed on ciprofloxacin on May 01 for UTI but he was not getting better. In the emergency department patient was found to have low blood pressures with systolic in the 80s. Labs in the emergency department patient has a normal white blood cell count of 9.8 but has findings of renal failure with a creatinine of 3.3 which is double his baseline, BUN of 56 also double baseline and decreased carbon dioxide of 17 with an anion gap of 16. Patient was treated with 30 milliliters/kilogram of IV fluid bolus and initiated on Rocephin in the ER. My review of prior urine cultures shows Enterococcus in the past so patient was also started on vancomycin. 05/13 Pt receiving iv fluids and iv Abx for UTi awaiting UC and BC final reports Pt has history of UTIs in the past. h/o of urinary retention and self catherization. Pt appears confused today disoriented x3 Review of Systems Review of Systems: Confused today disoriented x3, no other acute issues Exam Narrative: GENERAL: elderly frail confused man HEAD: Normocephalic, atraumatic. ENT:? Mucous membranes moist. CHEST: Clear to auscultation.? No respiratory distress. HEART: Regular rate and rhythm. ? Normal peripheral pulses. ABDOMEN: Soft, nontender, nondistended. Babin catheter draining clear yellow urine EXTREMITIES: Normal range of motion. No peripheral edema. Scattered bruises noted SKIN: Warm dry normal color PSYCH: Confusion, disoriented x3 Objective Data Vital Signs Vital Signs: Vital Signs - 24 hr 05/12/24 15:18 05/12/24 16:29 05/12/24 17:01 Temperature 34.3 C L 36.4 C Pulse Rate 68 75 Respiratory Rate 20 19 Blood Pressure 88/54 L 80/57 L 120/68 Pulse Oximetry 92 96 Oxygen Delivery Room Air 05/12/24 17:31 05/12/24 17:57 05/12/24 18:01 Temperature Pulse Rate 71 72 78 Respiratory Rate 20 17 18 Blood Pressure 115/72 119/65 111/72 Pulse Oxi
--- NOTE | 2024-05-13 16:11 | PM.CNNEP ---
Assessment and Plan Assessment and plan (1) Acute kidney injury: Code(s): N17.9 - Acute kidney failure, unspecified Status: Acute Assessment and Plan: as noted by admission labs presumably due to infection, relative hypotension and possible prerenal factors check urine studies, CPK, and renal ultrasound trial of IVFs holding lasix and entresto for now follow repeat labs and UOP (2) Chronic kidney disease, stage 3: Code(s): N18.30 - Chronic kidney disease, stage 3 unspecified Status: Chronic Assessment and Plan: baseline creatinine seems to run ~ 1.4 - 1.6mg/d (at best) this would cause him to fluctuate between CKD stage 3A and 3B presumably due to vascular disease (CAD + cardiomyopathy), BPH, recurrent UTIs, chronic urinary retention (requiring self catheterizations), and age-related change (3) UTI (urinary tract infection): Code(s): N39.0 - Urinary tract infection, site not specified Status: Acute Assessment and Plan: admission UA suggestive follow culture data on antibiotic therapy (4) Metabolic acidosis: Code(s): E87.20 - Acidosis, unspecified Status: Acute Assessment and Plan: due to PREMA and possible early sepsis bicarb supplementation as needed follow CO2 levels (5) Cardiomyopathy: Code(s): I42.9 - Cardiomyopathy, unspecified Status: Chronic Assessment and Plan: known history -- last EF ~ 40 - 45% Entresto and lasix on hold due to #1 follow volume and respiratory status closely (6) Urinary retention: Code(s): R33.9 - Retention of urine, unspecified Status: Chronic Assessment and Plan: de la garza catheter in place usually self catheterizes for this issues however, acute confusion limits this intervention continue supportive care I will continue to follow the patient with you while he remains hospitalized and make further recommendations as deemed necessary. Thank you for allowing me to participate in the care of this patient. History of Present Illness Reason for Consult Consult date: 05/13/24 Reason for consult: acute renal failure (on chronic kidney disease) Chief Complaint Chief complaint: PREMA/UTI History of Present Illness Narrative: Most of the information that I obtained from view the electronic medical record as the patient is somewhat confused at the time my visit and difficult to provide much history that led to his admission to the hospital. The patient is a 79-year-old male with a past medical history as outlined below who presented to [facility] Emergency room due to increasing weakness and altered mental status. Apparently, the patient was placed on oral antibiotic therapy earlier this month for a presumed urinary tract infection that was not clinically improving. In spite of this therapy, it seemed that his overall clinical condition continued to deteriorate. He subsequently came to the emergency room due to the symptoms as well as the fact that he seems to be getting more confused as well. Workup and evaluation in the emergency room demonstrated the patient to be afebrile but hypotensive with systolic BP is in the 80s. Routine blood test demonstrated normal white blood cell count but his chemistry showed evidence of acute kidney injury on top of his baseline chronic kidney disease with a creatinine of 3.3 mg/dL he was also found to have a metabolic acidosis with a bicarb of 17 and his initial urinalysis demonstrated evidence of on ongoing urinary tract infection as well. The patient has a known history of chronic urinary retention and there was some concern that since he does self-catheterizations at home that is increased confusion lead to a decrease in these interventions possibly precipitating his urinary tract infection. A De La Garza catheter was placed and after appropriate cultures were obtained, he was started on broad-spectrum IV antibiotic the
--- NOTE | 2024-05-13 16:11 | P.CONNP_ITS ---
Assessment and Plan Assessment and plan (1) Acute kidney injury: Code(s): N17.9 - Acute kidney failure, unspecified Status: Acute Assessment and Plan: * as noted by admission labs * presumably due to infection, relative hypotension and possible prerenal factors * check urine studies, CPK, and renal ultrasound * trial of IVFs * holding lasix and entresto for now * follow repeat labs and UOP (2) Chronic kidney disease, stage 3: Code(s): N18.30 - Chronic kidney disease, stage 3 unspecified Status: Chronic Assessment and Plan: * baseline creatinine seems to run ~ 1.4 - 1.6mg/d (at best) * this would cause him to fluctuate between CKD stage 3A and 3B * presumably due to vascular disease (CAD + cardiomyopathy), BPH, recurrent UTIs, chronic urinary retention (requiring self catheterizations), and age- related change (3) UTI (urinary tract infection): Code(s): N39.0 - Urinary tract infection, site not specified Status: Acute Assessment and Plan: * admission UA suggestive * follow culture data * on antibiotic therapy (4) Metabolic acidosis: Code(s): E87.20 - Acidosis, unspecified Status: Acute Assessment and Plan: * due to PREMA and possible early sepsis * bicarb supplementation as needed * follow CO2 levels (5) Cardiomyopathy: Code(s): I42.9 - Cardiomyopathy, unspecified Status: Chronic Assessment and Plan: * known history -- last EF ~ 40 - 45% * Entresto and lasix on hold due to #1 * follow volume and respiratory status closely (6) Urinary retention: Code(s): R33.9 - Retention of urine, unspecified Status: Chronic Assessment and Plan: * de la garza catheter in place * usually self catheterizes for this issues * however, acute confusion limits this intervention * continue supportive care I will continue to follow the patient with you while he remains hospitalized and make further recommendations as deemed necessary. Thank you for allowing me to participate in the care of this patient. History of Present Illness Reason for Consult Consult date: 05/13/24 Reason for consult: acute renal failure (on chronic kidney disease) Chief Complaint Chief complaint: PREMA/UTI History of Present Illness Narrative: Most of the information that I obtained from view the electronic medical record as the patient is somewhat confused at the time my visit and difficult to provide much history that led to his admission to the hospital. The patient is a 79-year-old male with a past medical history as outlined below who presented to [facility] Emergency room due to increasing weakness and altered mental status. Apparently, the patient was placed on oral antibiotic therapy earlier this month for a presumed urinary tract infection that was not clinically improving. In spite of this therapy, it seemed that his overall clinical condition continued to deteriorate. He subsequently came to the emergency room due to the symptoms as well as the fact that he seems to be getting more confused as well. Workup and evaluation in the emergency room demonstrated the patient to be afebrile but hypotensive with systolic BP is in the 80s. Routine blood test demonstrated normal white blood cell count but his chemistry showed evidence of acute kidney injury on top of his baseline chronic kidney disease with a creatinine of 3.3 mg/dL he was also found to have a metabolic acidosis with a bicarb of 17 and his initial urinalysis demonstrated evidence of on ongoing urinary t
[2024-05-13 20:40] LABS: Vancomycin Trough 7.1 ug/mL (10.0-20.0)
[2024-05-13] MEDS: VANCOMYCIN 1,000 MG/NS 250 ML 1,000 MG/250 ML BAG 250 MG IVPB (22:13)
[2024-05-13] MEDS: SACUBITRIL/VALSARTAN 24-26 MG TABLET 1 TAB PO (22:14)
[2024-05-13 22:40] LABS: Urea Random Urine 329 MG/DL
[2024-05-13 22:48] LABS: Eosinophil Urine None Seen % (None Seen); Urine Eos QC 2nd Tech Confirmed
[2024-05-13 22:55] LABS: Total Protein Urine Random 38 mg/dL
[2024-05-13 22:56] LABS: Sodium Urine Random 94 meq/L
[2024-05-13 23:10] LABS: Creatinine Urine 55.2 mg/dL
[2024-05-13 23:13] LABS: Total Protein Urine Random 38 mg/dL; Ur Ttl Prot Creatinine Ratio 0.69 mg/mg (0-0.20)
[2024-05-14] VITALS (12 sets, daily range): BP systolic 98–128; BP diastolic 53–78; PULSE 82–109; RESP 18–20; TEMP 36.3–37.2; O2SAT 98–99
[2024-05-14] MEDS: LACTATED RINGERS 1,000 ML 50 ML IV CONT ×2 (02:50→23:54)
[2024-05-14 06:12] LABS: Basophils Percent Auto 0.4 % (0.2-1.2); Eosinophils Absolute Auto 0.3 K/mm3 (0-0.3); Eosinophils Percent Auto 3.7 % (0-4.4); Hematocrit 29.9 % (42.0-52.0); Immature Granulocyte Absolute 0.03 K/mm3 (0.00-0.031); Immature Granulocyte Percent A 0.4 % (0-0.5); Lymphocytes Absolute Auto 0.74 K/mm3 (0.9-3.2); Lymphocytes Percent Auto 9.9 % (18.3-44.2); Mean Corpuscular HGB Conc 33.4 g/dl (32-36); Mean Corpuscular Hemoglobin 31.8 pg (26-34); Mean Corpuscular Volume 95.2 fl (80-100); Mean Platelet Volume 9.8 fl (7.4-10.4); Monocytes Absolute Auto 0.7 K/mm3 (0.1-0.6); Monocytes Percent Auto 9.3 % (2.6-8.5); Neutrophils Absolute Auto 5.7 K/mm3 (1.3-6.7); Neutrophils Percent Auto 76.3 % (45.5-73.1); Platelet Count Result 130 k/mm3 (150-375); Red Blood Count 3.14 M/mm3 (4.6-6.20); Red Cell Distribution Width 14.2 % (11.5-14.5); White Blood Count 7.5 K/mm3 (4.5-10.0)
[2024-05-14 06:14] LABS: Creatine Kinase 76 U/L (55-170)
[2024-05-14 06:26] LABS: Alanine Aminotransferase 59 U/L (6-50); Albumin Level 3.1 g/dL (3.5-5.1); Alkaline Phosphatase 79 U/L (38-126); Anion Gap 9 mmol/L (4-12); Aspartate Amino Transferase 38 U/L (17-59); Bilirubin,Total 0.5 mg/dL (0.2-1.3); Blood Urea Nitrogen 34 mg/dL (9-20); Calcium 8.2 mg/dL (8.4-10.2); Carbon Dioxide 20 mmol/L (22-30); Chloride 110 mmol/L (98-107); Estimated CRCL calculation 24 ml/min; Estimated Glomerular Filt Rate 29; Glucose 88 mg/dL (65-110); Magnesium 1.7 mg/dL (1.6-2.3); Potassium 3.6 mmol/L (3.4-5.0); Sodium 139 mmol/L (137-145)
[2024-05-14 06:38] LABS: Procalcitonin 0.3 ng/mL
[2024-05-14] MEDS: cilostazoL 100 MG TABLET PO (07:07)
--- NOTE | 2024-05-14 07:56 | PM.IMPN ---
Progress Note: A&P Assessment and Plan (1) Acute kidney injury superimposed on CKD: Code(s): N17.9 - Acute kidney failure, unspecified; N18.9 - Chronic kidney disease, unspecified Status: Acute Assessment and Plan: History of CKD stage 3 but BUN creatinine is 2.9 usually runs at 1.6 Continue fluid hydration Cxr shows mall bilateral pleural effusions will cut back the rate but will continue to hydrate (2) UTI (urinary tract infection): Code(s): N39.0 - Urinary tract infection, site not specified Status: Acute Assessment and Plan: Patient self catheterizes at home for chronic urinary retention Prior urine cultures have grown Enterococcus or yeast Due to Enterococcus on prior urine culture, initiated vancomycin which is to be dosed by pharmacy due to renal failure Watch for UC will add IV rocephin also for better coverage (3) Sepsis: Code(s): A41.9 - Sepsis, unspecified organism Status: Acute Assessment and Plan: Presumed urogenital source Metabolic acidosis noted on chemistry panel,watch lactic levels 05/14- WBC improved today- 7.5, afebrile (4) Cardiomyopathy: Code(s): I42.9 - Cardiomyopathy, unspecified Status: Acute Assessment and Plan: Prior EF 40-45%, furosemide, metoprolol and Entresto are home medications were held can reintroduce few today 05/14- restarted entresto and metoprolol but holding lasix for now (5) Atrial fibrillation: Code(s): I48.91 - Unspecified atrial fibrillation Status: Acute Assessment and Plan: Not anticoagulated due to Crohn's disease (6) Urinary retention: Code(s): R33.9 - Retention of urine, unspecified Status: Acute Assessment and Plan: Babin catheter in place - will re evalutae if needs removed tommorrow Time Spent With Patient Time with patient: Greater than 35 minutes Subjective Date/time seen: 05/14/24 07:56 Interval history: Interval history: 79-year-old male patient with a past history of hypertension, cardiomyopathy, AFib, stage III CKD, Crohn's disease and urinary retention requiring self catheterization who is evaluated for increasing weakness and lethargy. Patient was placed on ciprofloxacin on May 01 for UTI but he was not getting better. In the emergency department patient was found to have low blood pressures with systolic in the 80s. Labs in the emergency department patient has a normal white blood cell count of 9.8 but has findings of renal failure with a creatinine of 3.3 which is double his baseline, BUN of 56 also double baseline and decreased carbon dioxide of 17 with an anion gap of 16. Patient was treated with 30 milliliters/kilogram of IV fluid bolus and initiated on Rocephin in the ER. My review of prior urine cultures shows Enterococcus in the past so patient was also started on vancomycin. 05/13 Pt receiving iv fluids and iv Abx for UTi awaiting UC and BC final reports Pt has history of UTIs in the past. h/o of urinary retention and self catherization. Pt appears confused today disoriented x3 05/14- assuming care. Pt is seen and examined. He is alert, oriented pleasant, eating lunch. at the bedside. Denies chest pain, n/v/d. Review of Systems Review of Systems: Confused today disoriented x3, no other acute issues ROS unobtainable: Yes unobtainable due to mental status (Patient quite confused) Exam Narrative: GENERAL: elderly frail confused man HEAD: Normocephalic, atraumatic. ENT:? Mucous membranes moist. CHEST: Clear to auscultation.? No respiratory distress. HEART: Regular rate and rhythm. ? Normal peripheral pulses. ABDOMEN: Soft, nontender, nondistended. Babin catheter draining clear yellow urine EXTREMITIES: Normal range of motion. No peripheral edema. Scattered bruises noted SKIN: Warm dry normal color PSYCH: Confusion, disoriented x3 Objective Data Vital Signs Vital Signs: Vital Signs - 24 hr
[2024-05-14] MEDS: SACUBITRIL/VALSARTAN 24-26 MG TABLET 1 TAB PO ×2 (08:37→21:12)
[2024-05-14] MEDS: MULTIVITAMINS /C LUTEIN (CENTRUM SILVER) TABLET *BKC 1 TAB PO (08:37)
[2024-05-14] MEDS: ATORVASTATIN 10 MG TABLET PO (08:37)
[2024-05-14] MEDS: ESCITALOPRAM OXALATE 10 MG TABLET 20 MG PO (08:38)
[2024-05-14] MEDS: SODIUM BICARBONATE TAB 650 MG TABLET PO ×2 (08:38→16:55)
[2024-05-14] MEDS: ENOXAPARIN 30 MG/0.3 ML SYRINGE SUB-Q (08:38)
[2024-05-14] MEDS: POTASSIUM CHLORIDE 20 MEQ PACKET (FOR LIQUID) 40 MEQ PO (08:38)
[2024-05-14] MEDS: ASPIRIN 81 MG ENTERIC TABLET PO (08:38)
[2024-05-14] MEDS: FLUTICASONE PROPIONATE 0.05% NA SPR 16 GM BTL (*BKC) 1 SPRAY NASAL (08:38)
[2024-05-14] MEDS: METOPROLOL TARTRATE 50 MG TAB 150 MG PO ×2 (08:39→21:13)
--- NOTE | 2024-05-14 11:50 | P.PNNP_ITS ---
Progress Note: A&P Assessment and Plan (1) Acute kidney injury: Code(s): N17.9 - Acute kidney failure, unspecified Status: Acute Assessment and Plan: * as noted by admission labs * mild improvement noted * presumably due to infection, relative hypotension and possible prerenal factors * evaluation noted to date: * renal ultrasound with renal atrophy * urine electrolytes non-prerenal * urine eosinophil negative * UA + for infection * CPK normal * gentle IVFs and wean as oral intake improves * holding lasix and entresto at this time * follow repeat labs and UOP (2) Chronic kidney disease, stage 3: Code(s): N18.30 - Chronic kidney disease, stage 3 unspecified Status: Chronic Assessment and Plan: * baseline creatinine seems to run ~ 1.4 - 1.6mg/d (at best) * this would cause him to fluctuate between CKD stage 3A and 3B * presumably due to vascular disease (CAD + cardiomyopathy), BPH, recurrent UTIs, chronic urinary retention (requiring self catheterizations), and age- related change (3) UTI (urinary tract infection): Code(s): N39.0 - Urinary tract infection, site not specified Status: Acute Assessment and Plan: * admission UA suggestive * follow culture data - GNB noted * on antibiotic therapy (4) Metabolic acidosis: Code(s): E87.20 - Acidosis, unspecified Status: Acute Assessment and Plan: * due to PREMA and possible early sepsis * bicarb supplementation ongoing * follow CO2 levels (5) Cardiomyopathy: Code(s): I42.9 - Cardiomyopathy, unspecified Status: Chronic Assessment and Plan: * known history -- last EF ~ 40 - 45% * Entresto and lasix on hold due to #1 * follow volume and respiratory status closely (6) Urinary retention: Code(s): R33.9 - Retention of urine, unspecified Status: Chronic Assessment and Plan: * de la garza catheter in place * usually self catheterizes for this issues * however, acute confusion limits this intervention * continue supportive care Will continue to follow. Subjective Date/time seen: 05/14/24 11:50 Interval history: Follow-up for acute kidney injury/acute renal failure on chronic kidney disease. Renal function/creatinine steadily improving since admission; mentation seems a bit better as well; no apparent distress voiced at the time of my visit; no issues/events overnight or earlier this morning. Exam Narrative: General: elderly and frail male in NAD Heart: normal S1 and S2; no rub Lungs: clear to auscultation Abdomen: soft, nontender, nondistended, positive bowel sounds Extremities: no cyanosis or clubbing; no edema Skin: scattered bruising noted Objective Data Vital Signs Vital Signs: Vital Signs Temp Pulse Resp BP Pulse Ox O2 Del Method 05/14/24 08:00 Room Air 05/14/24 08:39 101 H 05/14/24 05:07 97.4 F L 105 H 20 128/72 98 05/14/24 04:00 102 H 05/14/24 00:00 104 H 05/13/24 20:00 90 05/13/24 21:49 82 05/13/24 20:01 98.0 F 80 20 95/47 L 100 05/13/24 16:00 99 05/13/24 12:00 87 05/13/24 14:00 98.1 F 78 18 118/62 100 Intake/Output Intake/Output: Intake & Output
--- NOTE | 2024-05-14 11:50 | PM.PNNEP ---
Progress Note: A&P Assessment and Plan (1) Acute kidney injury: Code(s): N17.9 - Acute kidney failure, unspecified Status: Acute Assessment and Plan: as noted by admission labs mild improvement noted presumably due to infection, relative hypotension and possible prerenal factors evaluation noted to date: renal ultrasound with renal atrophy urine electrolytes non-prerenal urine eosinophil negative UA + for infection CPK normal gentle IVFs and wean as oral intake improves holding lasix and entresto at this time follow repeat labs and UOP (2) Chronic kidney disease, stage 3: Code(s): N18.30 - Chronic kidney disease, stage 3 unspecified Status: Chronic Assessment and Plan: baseline creatinine seems to run ~ 1.4 - 1.6mg/d (at best) this would cause him to fluctuate between CKD stage 3A and 3B presumably due to vascular disease (CAD + cardiomyopathy), BPH, recurrent UTIs, chronic urinary retention (requiring self catheterizations), and age-related change (3) UTI (urinary tract infection): Code(s): N39.0 - Urinary tract infection, site not specified Status: Acute Assessment and Plan: admission UA suggestive follow culture data - GNB noted on antibiotic therapy (4) Metabolic acidosis: Code(s): E87.20 - Acidosis, unspecified Status: Acute Assessment and Plan: due to PREMA and possible early sepsis bicarb supplementation ongoing follow CO2 levels (5) Cardiomyopathy: Code(s): I42.9 - Cardiomyopathy, unspecified Status: Chronic Assessment and Plan: known history -- last EF ~ 40 - 45% Entresto and lasix on hold due to #1 follow volume and respiratory status closely (6) Urinary retention: Code(s): R33.9 - Retention of urine, unspecified Status: Chronic Assessment and Plan: de la garza catheter in place usually self catheterizes for this issues however, acute confusion limits this intervention continue supportive care Will continue to follow. Subjective Date/time seen: 05/14/24 11:50 Interval history: Follow-up for acute kidney injury/acute renal failure on chronic kidney disease. Renal function/creatinine steadily improving since admission; mentation seems a bit better as well; no apparent distress voiced at the time of my visit; no issues/events overnight or earlier this morning. Exam Narrative: General: elderly and frail male in NAD Heart: normal S1 and S2; no rub Lungs: clear to auscultation Abdomen: soft, nontender, nondistended, positive bowel sounds Extremities: no cyanosis or clubbing; no edema Skin: scattered bruising noted Objective Data Vital Signs Vital Signs: Vital Signs Temp Pulse Resp BP Pulse Ox O2 Del Method 05/14/24 08:00 Room Air 05/14/24 08:39 101 H 05/14/24 05:07 97.4 F L 105 H 20 128/72 98 05/14/24 04:00 102 H 05/14/24 00:00 104 H 05/13/24 20:00 90 05/13/24 21:49 82 05/13/24 20:01 98.0 F 80 20 95/47 L 100 05/13/24 16:00 99 05/13/24 12:00 87 05/13/24 14:00 98.1 F 78 18 118/62 100 Intake/Output Intake/Output: Intake & Output 05/11/24 05/12/24 05/13/24 05/14/24 23:59 23:59 23:59 23:59 Intake Total 2350 2555 1100 Output Total 4850 650 Balance 2350 -2295 450 Meds/Results Medications: Active Medications Generic Name Dose Route Start Last Admin Trade Name Freq PRN Reason Stop Dose Admin Aspirin 81 mg 05/13/24 09:00 05/14/24 08:38 Aspirin 81 Mg Enteric Tablet PO 81 mg QAM [facility] Administration Atorvastatin Calcium 10 mg 05/13/24 09:00 05/14/24 08:37 Atorvastatin 10 Mg Tablet PO 10 mg DAILY [facility] Administration Cilostazol 100 mg 05/13/24 07:30 05/14/24 07:07 Cilostazol 100 Mg Tablet PO 100 mg DAILY@0730 [facility] Administration Enoxaparin Sodium 30 mg 05/13/24 09:00 05/14/24 08:38 Enoxapari
[2024-05-14 21:29] LABS: Vancomycin Random 10.2 ug/mL (10-20)
[2024-05-14] MEDS: VANCOMYCIN 1,250 MG/NS 250 ML 1,250 MG/250 ML BAG 166.67 MG IVPB (22:09)
[2024-05-15] VITALS (12 sets, daily range): BP systolic 107–130; BP diastolic 51–92; PULSE 84–104; RESP 18–22; TEMP 36.3–36.8; O2SAT 95–97
[2024-05-15 05:38] LABS: Basophils Absolute Auto 0.1 K/mm3 (0.0-0.1); Basophils Percent Auto 0.7 % (0.2-1.2); Eosinophils Absolute Auto 0.5 K/mm3 (0-0.3); Eosinophils Percent Auto 5.7 % (0-4.4); Hematocrit 30.7 % (42.0-52.0); Immature Granulocyte Absolute 0.05 K/mm3 (0.00-0.031); Immature Granulocyte Percent A 0.6 % (0-0.5); Mean Corpuscular HGB Conc 32.6 g/dl (32-36); Mean Corpuscular Hemoglobin 31.5 pg (26-34); Mean Corpuscular Volume 96.8 fl (80-100); Mean Platelet Volume 9.6 fl (7.4-10.4); Monocytes Absolute Auto 0.9 K/mm3 (0.1-0.6); Monocytes Percent Auto 10.2 % (2.6-8.5); Neutrophils Absolute Auto 5.9 K/mm3 (1.3-6.7); Neutrophils Percent Auto 69.8 % (45.5-73.1); Platelet Count Result 142 k/mm3 (150-375); Red Blood Count 3.17 M/mm3 (4.6-6.20); Red Cell Distribution Width 14.4 % (11.5-14.5); White Blood Count 8.4 K/mm3 (4.5-10.0)
[2024-05-15 05:58] LABS: Alanine Aminotransferase 44 U/L (6-50); Alkaline Phosphatase 82 U/L (38-126); Anion Gap 8 mmol/L (4-12); Aspartate Amino Transferase 26 U/L (17-59); Bilirubin,Total 0.4 mg/dL (0.2-1.3); Blood Urea Nitrogen 23 mg/dL (9-20); Calcium 8.3 mg/dL (8.4-10.2); Carbon Dioxide 17 mmol/L (22-30); Chloride 111 mmol/L (98-107); Estimated CRCL calculation 25 ml/min; Estimated Glomerular Filt Rate 31; Glucose 87 mg/dL (65-110); Magnesium 1.8 mg/dL (1.6-2.3); Potassium 3.8 mmol/L (3.4-5.0); Sodium 136 mmol/L (137-145)
[2024-05-15 06:07] LABS: Procalcitonin 0.2 ng/mL
[2024-05-15] MEDS: cilostazoL 100 MG TABLET PO (07:37)
[2024-05-15] MEDS: ATORVASTATIN 10 MG TABLET PO (08:48)
[2024-05-15] MEDS: ESCITALOPRAM OXALATE 10 MG TABLET 20 MG PO (08:48)
[2024-05-15] MEDS: ASPIRIN 81 MG ENTERIC TABLET PO (08:48)
[2024-05-15] MEDS: METOPROLOL TARTRATE 50 MG TAB 150 MG PO ×2 (08:48→21:36)
[2024-05-15] MEDS: MULTIVITAMINS /C LUTEIN (CENTRUM SILVER) TABLET *BKC 1 TAB PO (08:48)
[2024-05-15] MEDS: POTASSIUM CHLORIDE 20 MEQ PACKET (FOR LIQUID) 40 MEQ PO (08:49)
[2024-05-15] MEDS: SODIUM BICARBONATE TAB 650 MG TABLET PO ×3 (08:49→17:21)
[2024-05-15] MEDS: ENOXAPARIN 30 MG/0.3 ML SYRINGE SUB-Q (08:49)
[2024-05-15] MEDS: FLUTICASONE PROPIONATE 0.05% NA SPR 16 GM BTL (*BKC) 1 SPRAY NASAL (08:49)
--- NOTE | 2024-05-15 09:59 | PM.IMPN ---
Progress Note: A&P Assessment and Plan (1) Acute kidney injury superimposed on CKD: Code(s): N17.9 - Acute kidney failure, unspecified; N18.9 - Chronic kidney disease, unspecified Status: Acute Assessment and Plan: History of CKD stage 3 but BUN creatinine is 2.9 usually runs at 1.6 Continue fluid hydration Cxr shows mall bilateral pleural effusions will cut back the rate but will continue to hydrate (2) UTI (urinary tract infection): Code(s): N39.0 - Urinary tract infection, site not specified Status: Acute Assessment and Plan: Patient self catheterizes at home for chronic urinary retention Prior urine cultures have grown Enterococcus or yeast Due to Enterococcus on prior urine culture, initiated vancomycin which is to be dosed by pharmacy due to renal failure Watch for UC will add IV rocephin also for better coverage 05/15- ua culture is back. will stop vanc, continue rocephin (3) Sepsis: Code(s): A41.9 - Sepsis, unspecified organism Status: Acute Assessment and Plan: Presumed urogenital source Metabolic acidosis noted on chemistry panel,watch lactic levels 05/14- WBC improved today- 7.5, afebrile (4) Cardiomyopathy: Code(s): I42.9 - Cardiomyopathy, unspecified Status: Acute Assessment and Plan: Prior EF 40-45%, furosemide, metoprolol and Entresto are home medications were held can reintroduce few today 05/14- restarted entresto and metoprolol but holding lasix for now (5) Atrial fibrillation: Code(s): I48.91 - Unspecified atrial fibrillation Status: Acute Assessment and Plan: Not anticoagulated due to Crohn's disease (6) Urinary retention: Code(s): R33.9 - Retention of urine, unspecified Status: Acute Assessment and Plan: Babin catheter in place - will re evalutae if needs removed tommorrow Plan anticipate discharge on friday as continues to improve Time Spent With Patient Time with patient: Greater than 35 minutes Subjective Date/time seen: 05/15/24 09:59 Interval history: Interval history: 79-year-old male patient with a past history of hypertension, cardiomyopathy, AFib, stage III CKD, Crohn's disease and urinary retention requiring self catheterization who is evaluated for increasing weakness and lethargy. Patient was placed on ciprofloxacin on May 01 for UTI but he was not getting better. In the emergency department patient was found to have low blood pressures with systolic in the 80s. Labs in the emergency department patient has a normal white blood cell count of 9.8 but has findings of renal failure with a creatinine of 3.3 which is double his baseline, BUN of 56 also double baseline and decreased carbon dioxide of 17 with an anion gap of 16. Patient was treated with 30 milliliters/kilogram of IV fluid bolus and initiated on Rocephin in the ER. My review of prior urine cultures shows Enterococcus in the past so patient was also started on vancomycin. 05/13 Pt receiving iv fluids and iv Abx for UTi awaiting UC and BC final reports Pt has history of UTIs in the past. h/o of urinary retention and self catherization. Pt appears confused today disoriented x3 05/14- assuming care. Pt is seen and examined. He is alert, oriented pleasant, eating lunch. at the bedside. Denies chest pain, n/v/d. 05/15- pt is seen and examined. he is doing well. slept ok, wants to walk in the [place] with -denies pain, eating and drinking well. Review of Systems Review of Systems: alert, pleasant Exam Narrative: GENERAL: elderly frail man HEAD: Normocephalic, atraumatic. ENT:? Mucous membranes moist. CHEST: Clear to auscultation.? No respiratory distress. HEART: Regular rate and rhythm. ? Normal peripheral pulses. ABDOMEN: Soft, nontender, nondistended. Babin catheter draining clear yellow urine EXTREMITIES: Normal range of motion. No peripheral edema. Scattered bruises noted SKIN
--- NOTE | 2024-05-15 12:24 | P.PNNP_ITS ---
Progress Note: A&P Assessment and Plan (1) Acute kidney injury: Code(s): N17.9 - Acute kidney failure, unspecified Status: Acute Assessment and Plan: * as noted by admission labs * mild improvement noted * presumably due to infection, relative hypotension and possible prerenal factors * evaluation noted to date: * renal ultrasound with renal atrophy * urine electrolytes non-prerenal * urine eosinophil negative * UA + for infection * CPK normal * gentle IVFs and wean as oral intake improves * holding lasix; entresto resumed * given information to date, possible component of kidney disease progression? * follow repeat labs and UOP (2) Chronic kidney disease, stage 3: Code(s): N18.30 - Chronic kidney disease, stage 3 unspecified Status: Chronic Assessment and Plan: * baseline creatinine seems to run ~ 1.4 - 1.6mg/d (at best) * this would cause him to fluctuate between CKD stage 3A and 3B * presumably due to vascular disease (CAD + cardiomyopathy), BPH, recurrent UTIs, chronic urinary retention (requiring self catheterizations), and age- related change (3) UTI (urinary tract infection): Code(s): N39.0 - Urinary tract infection, site not specified Status: Acute Assessment and Plan: * admission UA suggestive * follow culture data - Klebsiella noted * on antibiotic therapy (4) Metabolic acidosis: Code(s): E87.20 - Acidosis, unspecified Status: Acute Assessment and Plan: * due to PREMA and possible early sepsis * bicarb supplementation ongoing * follow CO2 levels (5) Cardiomyopathy: Code(s): I42.9 - Cardiomyopathy, unspecified Status: Chronic Assessment and Plan: * known history -- last EF ~ 40 - 45% * lasix on hold due to #1 * entresto resumed * follow volume and respiratory status closely (6) Urinary retention: Code(s): R33.9 - Retention of urine, unspecified Status: Chronic Assessment and Plan: * de la garza catheter in place * usually self catheterizes for this issues * however, acute confusion limits this intervention * continue supportive care Will continue to follow. Subjective Date/time seen: 05/15/24 12:24 Interval history: Follow-up for acute kidney injury/acute renal failure on chronic kidney disease. Appears to be doing reasonably well at the time of my visit; mentation seems to be back to baseline; renal function/creatinine about the same and continues to make reasonable urine output; eating and drinking okay; no issues/events overnight or earlier this morning. Exam Narrative: General: elderly and frail male in NAD Heart: normal S1 and S2; no rub Lungs: clear to auscultation Abdomen: soft, nontender, nondistended, positive bowel sounds Extremities: no cyanosis or clubbing; no edema Skin: scattered bruising present Objective Data Vital Signs Vital Signs: Vital Signs Temp Pulse Resp BP Pulse Ox O2 Del Method 05/15/24 12:00 97.4 F L 84 22 H 107/55 L 97 05/15/24 08:50 Room Air 05/15/24 08:00 93 05/15/24 08:48 104 H 05/15/24 08:47 104 H 130/82 05/15/24 06:00 97.9 F 90 20 111/51 L 95 05/15/24 04:00 86 05/15/24 00:00 86 05/14/24 21:07 98.9 F 95 18 122/78 99 05/14/24 21:
--- NOTE | 2024-05-15 12:24 | PM.PNNEP ---
Progress Note: A&P Assessment and Plan (1) Acute kidney injury: Code(s): N17.9 - Acute kidney failure, unspecified Status: Acute Assessment and Plan: as noted by admission labs mild improvement noted presumably due to infection, relative hypotension and possible prerenal factors evaluation noted to date: renal ultrasound with renal atrophy urine electrolytes non-prerenal urine eosinophil negative UA + for infection CPK normal gentle IVFs and wean as oral intake improves holding lasix; entresto resumed given information to date, possible component of kidney disease progression? follow repeat labs and UOP (2) Chronic kidney disease, stage 3: Code(s): N18.30 - Chronic kidney disease, stage 3 unspecified Status: Chronic Assessment and Plan: baseline creatinine seems to run ~ 1.4 - 1.6mg/d (at best) this would cause him to fluctuate between CKD stage 3A and 3B presumably due to vascular disease (CAD + cardiomyopathy), BPH, recurrent UTIs, chronic urinary retention (requiring self catheterizations), and age-related change (3) UTI (urinary tract infection): Code(s): N39.0 - Urinary tract infection, site not specified Status: Acute Assessment and Plan: admission UA suggestive follow culture data - Klebsiella noted on antibiotic therapy (4) Metabolic acidosis: Code(s): E87.20 - Acidosis, unspecified Status: Acute Assessment and Plan: due to PREMA and possible early sepsis bicarb supplementation ongoing follow CO2 levels (5) Cardiomyopathy: Code(s): I42.9 - Cardiomyopathy, unspecified Status: Chronic Assessment and Plan: known history -- last EF ~ 40 - 45% lasix on hold due to #1 entresto resumed follow volume and respiratory status closely (6) Urinary retention: Code(s): R33.9 - Retention of urine, unspecified Status: Chronic Assessment and Plan: de la garza catheter in place usually self catheterizes for this issues however, acute confusion limits this intervention continue supportive care Will continue to follow. Subjective Date/time seen: 05/15/24 12:24 Interval history: Follow-up for acute kidney injury/acute renal failure on chronic kidney disease. Appears to be doing reasonably well at the time of my visit; mentation seems to be back to baseline; renal function/creatinine about the same and continues to make reasonable urine output; eating and drinking okay; no issues/events overnight or earlier this morning. Exam Narrative: General: elderly and frail male in NAD Heart: normal S1 and S2; no rub Lungs: clear to auscultation Abdomen: soft, nontender, nondistended, positive bowel sounds Extremities: no cyanosis or clubbing; no edema Skin: scattered bruising present Objective Data Vital Signs Vital Signs: Vital Signs Temp Pulse Resp BP Pulse Ox O2 Del Method 05/15/24 12:00 97.4 F L 84 22 H 107/55 L 97 05/15/24 08:50 Room Air 05/15/24 08:00 93 05/15/24 08:48 104 H 05/15/24 08:47 104 H 130/82 05/15/24 06:00 97.9 F 90 20 111/51 L 95 05/15/24 04:00 86 05/15/24 00:00 86 05/14/24 21:07 98.9 F 95 18 122/78 99 05/14/24 21:13 90 05/14/24 20:00 109 H Intake/Output Intake/Output: Intake & Output 05/12/24 05/13/24 05/14/24 05/15/24 23:59 23:59 23:59 23:59 Intake Total 2350 3075 2630.0 1080 Output Total 4850 1400 900 Balance 2350 -1775 1230.0 180 Meds/Results Medications: Active Medications Generic Name Dose Route Start Last Admin Trade Name Freq PRN Reason Stop Dose Admin Aspirin 81 mg 05/13/24 09:00 05/15/24 08:48 Aspirin 81 Mg Enteric Tablet PO 81 mg QAM [facility] Administration Atorvastatin Calcium 10 mg 05/13/24 09:00 05/15/24 08:48 Atorvastatin 10 Mg Tablet PO 10 mg DAILY [facility] Administration Cilostazol 100 mg 04/23
[2024-05-15 19:58] LABS: Toxigenic C. Diff NEGATIVE (NEGATIVE)
[2024-05-16] VITALS (12 sets, daily range): BP systolic 110–128; BP diastolic 62–80; PULSE 65–99; RESP 16–20; TEMP 36.3–36.7; O2SAT 95–100
[2024-05-16 05:29] LABS: Basophils Absolute Auto 0.1 K/mm3 (0.0-0.1); Basophils Percent Auto 0.6 % (0.2-1.2); Eosinophils Absolute Auto 0.6 K/mm3 (0-0.3); Eosinophils Percent Auto 6.6 % (0-4.4); Hematocrit 31.7 % (42.0-52.0); Hemoglobin 10.3 g/dL (14.0-18.0); Immature Granulocyte Absolute 0.04 K/mm3 (0.00-0.031); Immature Granulocyte Percent A 0.4 % (0-0.5); Mean Corpuscular HGB Conc 32.5 g/dl (32-36); Mean Corpuscular Hemoglobin 31.9 pg (26-34); Mean Corpuscular Volume 98.1 fl (80-100); Mean Platelet Volume 9.7 fl (7.4-10.4); Monocytes Absolute Auto 0.8 K/mm3 (0.1-0.6); Monocytes Percent Auto 8.8 % (2.6-8.5); Neutrophils Absolute Auto 6.6 K/mm3 (1.3-6.7); Neutrophils Percent Auto 74.6 % (45.5-73.1); Platelet Count Result 148 k/mm3 (150-375); Red Blood Count 3.23 M/mm3 (4.6-6.20); Red Cell Distribution Width 14.3 % (11.5-14.5); White Blood Count 8.9 K/mm3 (4.5-10.0)
[2024-05-16 05:51] LABS: Alanine Aminotransferase 37 U/L (6-50); Albumin Level 3.2 g/dL (3.5-5.1); Alkaline Phosphatase 83 U/L (38-126); Anion Gap 10 mmol/L (4-12); Aspartate Amino Transferase 31 U/L (17-59); Bilirubin,Total 0.4 mg/dL (0.2-1.3); Blood Urea Nitrogen 18 mg/dL (9-20); Calcium 8.4 mg/dL (8.4-10.2); Carbon Dioxide 17 mmol/L (22-30); Chloride 109 mmol/L (98-107); Estimated CRCL calculation 26 ml/min; Estimated Glomerular Filt Rate 32; Glucose 86 mg/dL (65-110); Magnesium 1.7 mg/dL (1.6-2.3); Potassium 4.1 mmol/L (3.4-5.0); Sodium 136 mmol/L (137-145)
[2024-05-16] MEDS: cilostazoL 100 MG TABLET PO (06:51)
--- NOTE | 2024-05-16 07:42 | PM.IMPN ---
Progress Note: A&P Assessment and Plan (1) Acute kidney injury superimposed on CKD: Code(s): N17.9 - Acute kidney failure, unspecified; N18.9 - Chronic kidney disease, unspecified Status: Acute Assessment and Plan: History of CKD stage 3 but BUN creatinine is 2.9 usually runs at 1.6 Continue fluid hydration Cxr shows mall bilateral pleural effusions will cut back the rate but will continue to hydrate - back to baseline (2) UTI (urinary tract infection): Code(s): N39.0 - Urinary tract infection, site not specified Status: Acute Assessment and Plan: Patient self catheterizes at home for chronic urinary retention Prior urine cultures have grown Enterococcus or yeast Due to Enterococcus on prior urine culture, initiated vancomycin which is to be dosed by pharmacy due to renal failure Watch for UC will add IV rocephin also for better coverage 05/15- ua culture is back. will stop vanc, continue rocephin -05/16- can de escalate to po tomorrow and anticipate discharge with a close f/u with urology (3) Sepsis: Code(s): A41.9 - Sepsis, unspecified organism Status: Acute Assessment and Plan: Presumed urogenital source Metabolic acidosis noted on chemistry panel,watch lactic levels 05/14- WBC improved today- 7.5, afebrile 05/16- stable (4) Cardiomyopathy: Code(s): I42.9 - Cardiomyopathy, unspecified Status: Acute Assessment and Plan: Prior EF 40-45%, furosemide, metoprolol and Entresto are home medications were held can reintroduce few today 05/14- restarted entresto and metoprolol but holding lasix for now (5) Atrial fibrillation: Code(s): I48.91 - Unspecified atrial fibrillation Status: Acute Assessment and Plan: Not anticoagulated due to Crohn's disease (6) Urinary retention: Code(s): R33.9 - Retention of urine, unspecified Status: Acute Assessment and Plan: Babin catheter in place - will re evalutae if needs removed tommorrow Plan anticipate discharge on friday as continues to improve Time Spent With Patient Time with patient: Greater than 35 minutes Subjective Date/time seen: 05/16/24 07:42 Interval history: Interval history: 79-year-old male patient with a past history of hypertension, cardiomyopathy, AFib, stage III CKD, Crohn's disease and urinary retention requiring self catheterization who is evaluated for increasing weakness and lethargy. Patient was placed on ciprofloxacin on May 01 for UTI but he was not getting better. In the emergency department patient was found to have low blood pressures with systolic in the 80s. Labs in the emergency department patient has a normal white blood cell count of 9.8 but has findings of renal failure with a creatinine of 3.3 which is double his baseline, BUN of 56 also double baseline and decreased carbon dioxide of 17 with an anion gap of 16. Patient was treated with 30 milliliters/kilogram of IV fluid bolus and initiated on Rocephin in the ER. My review of prior urine cultures shows Enterococcus in the past so patient was also started on vancomycin. 05/13 Pt receiving iv fluids and iv Abx for UTi awaiting UC and BC final reports Pt has history of UTIs in the past. h/o of urinary retention and self catherization. Pt appears confused today disoriented x3 05/14- assuming care. Pt is seen and examined. He is alert, oriented pleasant, eating lunch. at the bedside. Denies chest pain, n/v/d. 05/15- pt is seen and examined. he is doing well. slept ok, wants to walk in the [place] with -denies pain, eating and drinking well. 05/16- pt is seen this am. Resting with eyes closed. Uneventful night, improving. Review of Systems Review of Systems: alert, pleasant Exam Narrative: GENERAL: elderly frail man HEAD: Normocephalic, atraumatic. ENT:? Mucous membranes moist. CHEST: Clear to auscultation.? No respiratory distress. HEART: Regular rate and r
[2024-05-16] MEDS: SODIUM BICARBONATE TAB 650 MG TABLET PO ×2 (10:19→18:04)
[2024-05-16] MEDS: MULTIVITAMINS /C LUTEIN (CENTRUM SILVER) TABLET *BKC 1 TAB PO (10:19)
[2024-05-16] MEDS: ATORVASTATIN 10 MG TABLET PO (10:19)
[2024-05-16] MEDS: ESCITALOPRAM OXALATE 10 MG TABLET 20 MG PO (10:19)
[2024-05-16] MEDS: METOPROLOL TARTRATE 50 MG TAB 150 MG PO ×2 (10:19→20:13)
[2024-05-16] MEDS: SACUBITRIL/VALSARTAN 24-26 MG TABLET 1 TAB PO ×2 (10:19→20:13)
[2024-05-16] MEDS: ENOXAPARIN 30 MG/0.3 ML SYRINGE SUB-Q (10:20)
[2024-05-16] MEDS: POTASSIUM CHLORIDE 20 MEQ PACKET (FOR LIQUID) 40 MEQ PO (10:20)
[2024-05-16] MEDS: ASPIRIN 81 MG ENTERIC TABLET PO (10:20)
[2024-05-16] MEDS: LOPERAMIDE HCL 2 MG CAPSULE PO (10:27)
--- NOTE | 2024-05-16 14:01 | PM.PNNEP ---
Progress Note: A&P Assessment and Plan (1) Acute kidney injury: Code(s): N17.9 - Acute kidney failure, unspecified Status: Acute Assessment and Plan: as noted by admission labs slow improvement noted presumably due to infection, relative hypotension and possible prerenal factors evaluation noted to date: renal ultrasound with renal atrophy urine electrolytes non-prerenal urine eosinophil negative UA + for infection CPK normal gentle IVFs and wean as oral intake improves holding lasix; Entresto resumed given information to date, possible component of kidney disease progression? follow repeat labs and UOP (2) Chronic kidney disease, stage 3: Code(s): N18.30 - Chronic kidney disease, stage 3 unspecified Status: Chronic Assessment and Plan: baseline creatinine seems to run ~ 1.4 - 1.6mg/d (at best) this would cause him to fluctuate between CKD stage 3A and 3B presumably due to vascular disease (CAD + cardiomyopathy), BPH, recurrent UTIs, chronic urinary retention (requiring self catheterizations), and age-related change (3) UTI (urinary tract infection): Code(s): N39.0 - Urinary tract infection, site not specified Status: Acute Assessment and Plan: admission UA suggestive follow culture data - Klebsiella noted on antibiotic therapy (4) Metabolic acidosis: Code(s): E87.20 - Acidosis, unspecified Status: Acute Assessment and Plan: due to PREMA and possible early sepsis bicarb supplementation ongoing follow CO2 levels (5) Cardiomyopathy: Code(s): I42.9 - Cardiomyopathy, unspecified Status: Chronic Assessment and Plan: known history -- last EF ~ 40 - 45% lasix on hold due to #1 entresto resumed follow volume and respiratory status closely (6) Urinary retention: Code(s): R33.9 - Retention of urine, unspecified Status: Chronic Assessment and Plan: de la garza catheter in place usually self catheterizes for this issues however, acute confusion limits this intervention continue supportive care Not opposed to discharge from renal perspective if otherwise medically stable -- possible new baseline creatinine given multiple risk factors as noted (CAD + cardiomyopathy, recurrent UTIs, chronic urinary retention, vascular disease, and age). Will continue to follow. Subjective Date/time seen: 05/16/24 14:01 Interval history: Follow-up for acute kidney injury/acute renal failure on chronic kidney disease. No new issues or problems to report at the time of my visit; renal function/creatinine improving albeit very slowly; no issues/events overnight or earlier this morning; working with therapy as tolerated as well. Exam Narrative: General: elderly and frail male in NAD Heart: normal S1 and S2; no rub Lungs: clear to auscultation Abdomen: soft, nontender, nondistended, positive bowel sounds Extremities: no cyanosis or clubbing; no edema Skin: scattered bruising apparent Objective Data Vital Signs Vital Signs: Vital Signs Temp Pulse Resp BP Pulse Ox O2 Del Method 05/16/24 14:00 98.1 F 84 20 110/65 100 05/16/24 12:00 99 05/16/24 10:25 Room Air 05/16/24 08:00 97 05/16/24 10:19 86 05/16/24 10:17 88 16 128/62 98 05/16/24 05:54 97.3 F L 99 18 128/80 100 05/16/24 04:00 91 05/16/24 00:00 91 05/15/24 22:00 98.3 F 86 18 123/92 H 95 05/15/24 21:36 90 05/15/24 20:00 90 Intake/Output Intake/Output: Intake & Output 05/13/24 05/14/24 05/15/24 05/16/24 23:59 23:59 23:59 23:59 Intake Total 3075 2880.0 1320 830 Output Total 4850 1400 1650 403 Balance -1775 1480.0 -330 427 Meds/Results Medications: Active Medications Generic Name Dose Route Start Last Admin Trade Name Freq PRN Reason Stop Dose Admin Aspirin 81 mg 05/13/24 09:00 05/16/24 10:20 Aspirin 81
--- NOTE | 2024-05-16 14:01 | P.PNNP_ITS ---
Progress Note: A&P Assessment and Plan (1) Acute kidney injury: Code(s): N17.9 - Acute kidney failure, unspecified Status: Acute Assessment and Plan: * as noted by admission labs * slow improvement noted * presumably due to infection, relative hypotension and possible prerenal factors * evaluation noted to date: * renal ultrasound with renal atrophy * urine electrolytes non-prerenal * urine eosinophil negative * UA + for infection * CPK normal * gentle IVFs and wean as oral intake improves * holding lasix; Entresto resumed * given information to date, possible component of kidney disease progression? * follow repeat labs and UOP (2) Chronic kidney disease, stage 3: Code(s): N18.30 - Chronic kidney disease, stage 3 unspecified Status: Chronic Assessment and Plan: * baseline creatinine seems to run ~ 1.4 - 1.6mg/d (at best) * this would cause him to fluctuate between CKD stage 3A and 3B * presumably due to vascular disease (CAD + cardiomyopathy), BPH, recurrent UTIs, chronic urinary retention (requiring self catheterizations), and age- related change (3) UTI (urinary tract infection): Code(s): N39.0 - Urinary tract infection, site not specified Status: Acute Assessment and Plan: * admission UA suggestive * follow culture data - Klebsiella noted * on antibiotic therapy (4) Metabolic acidosis: Code(s): E87.20 - Acidosis, unspecified Status: Acute Assessment and Plan: * due to PREMA and possible early sepsis * bicarb supplementation ongoing * follow CO2 levels (5) Cardiomyopathy: Code(s): I42.9 - Cardiomyopathy, unspecified Status: Chronic Assessment and Plan: * known history -- last EF ~ 40 - 45% * lasix on hold due to #1 * entresto resumed * follow volume and respiratory status closely (6) Urinary retention: Code(s): R33.9 - Retention of urine, unspecified Status: Chronic Assessment and Plan: * de la garza catheter in place * usually self catheterizes for this issues * however, acute confusion limits this intervention * continue supportive care Not opposed to discharge from renal perspective if otherwise medically stable -- possible new baseline creatinine given multiple risk factors as noted (CAD + cardiomyopathy, recurrent UTIs, chronic urinary retention, vascular disease, and age). Will continue to follow. Subjective Date/time seen: 05/16/24 14:01 Interval history: Follow-up for acute kidney injury/acute renal failure on chronic kidney disease. No new issues or problems to report at the time of my visit; renal function/creatinine improving albeit very slowly; no issues/events overnight or earlier this morning; working with therapy as tolerated as well. Exam Narrative: General: elderly and frail male in NAD Heart: normal S1 and S2; no rub Lungs: clear to auscultation Abdomen: soft, nontender, nondistended, positive bowel sounds Extremities: no cyanosis or clubbing; no edema Skin: scattered bruising apparent Objective Data Vital Signs Vital Signs: Vital Signs Temp Pulse Resp BP Pulse Ox O2 Del Method 05/16/24 14:00 98.1 F 84 20 110/65 100 05/16/24 12:00 99 05/16/24 10:25 Room Air 05/16/24 08:00 97 05/16/24 10:19 86 05/16/24 10:
[2024-05-17] VITALS (13 sets, daily range): BP systolic 100–110; BP diastolic 48–57; PULSE 52–108; RESP 12–20; TEMP 36.6–37.1; O2SAT 97–99
[2024-05-17 06:11] LABS: Basophils Absolute Auto 0.1 K/mm3 (0.0-0.1); Eosinophils Absolute Auto 0.6 K/mm3 (0-0.3); Hematocrit 30.6 % (42.0-52.0); Hemoglobin 9.8 g/dL (14.0-18.0); Immature Granulocyte Absolute 0.03 K/mm3 (0.00-0.031); Immature Granulocyte Percent A 0.4 % (0-0.5); Lymphocytes Absolute Auto 0.75 K/mm3 (0.9-3.2); Lymphocytes Percent Auto 8.9 % (18.3-44.2); Mean Corpuscular Hemoglobin 31.7 pg (26-34); Mean Platelet Volume 9.2 fl (7.4-10.4); Monocytes Absolute Auto 0.8 K/mm3 (0.1-0.6); Monocytes Percent Auto 9.4 % (2.6-8.5); Neutrophils Absolute Auto 6.2 K/mm3 (1.3-6.7); Neutrophils Percent Auto 73.3 % (45.5-73.1); Platelet Count Result 146 k/mm3 (150-375); Red Blood Count 3.09 M/mm3 (4.6-6.20); Red Cell Distribution Width 14.7 % (11.5-14.5); White Blood Count 8.4 K/mm3 (4.5-10.0)
[2024-05-17 06:38] LABS: Alanine Aminotransferase 33 U/L (6-50); Albumin Level 3.1 g/dL (3.5-5.1); Alkaline Phosphatase 76 U/L (38-126); Anion Gap 8 mmol/L (4-12); Aspartate Amino Transferase 26 U/L (17-59); Bilirubin,Total 0.4 mg/dL (0.2-1.3); Blood Urea Nitrogen 15 mg/dL (9-20); Calcium 8.4 mg/dL (8.4-10.2); Carbon Dioxide 18 mmol/L (22-30); Chloride 109 mmol/L (98-107); Estimated CRCL calculation 25 ml/min; Estimated Glomerular Filt Rate 31; Glucose 88 mg/dL (65-110); Magnesium 1.7 mg/dL (1.6-2.3); Potassium 4.2 mmol/L (3.4-5.0); Sodium 135 mmol/L (137-145)
[2024-05-17] MEDS: ENOXAPARIN 30 MG/0.3 ML SYRINGE SUB-Q (08:17)
[2024-05-17] MEDS: SACUBITRIL/VALSARTAN 24-26 MG TABLET 1 TAB PO ×2 (08:17→20:26)
[2024-05-17] MEDS: POTASSIUM CHLORIDE 20 MEQ PACKET (FOR LIQUID) 40 MEQ PO (08:17)
[2024-05-17] MEDS: FLUTICASONE PROPIONATE 0.05% NA SPR 16 GM BTL (*BKC) 1 SPRAY NASAL (08:17)
[2024-05-17] MEDS: METOPROLOL TARTRATE 50 MG TAB 150 MG PO ×2 (08:18→20:26)
[2024-05-17] MEDS: ESCITALOPRAM OXALATE 10 MG TABLET 20 MG PO (08:19)
[2024-05-17] MEDS: ATORVASTATIN 10 MG TABLET PO (08:19)
[2024-05-17] MEDS: MULTIVITAMINS /C LUTEIN (CENTRUM SILVER) TABLET *BKC 1 TAB PO (08:19)
[2024-05-17] MEDS: ASPIRIN 81 MG ENTERIC TABLET PO (08:19)
[2024-05-17] MEDS: SODIUM BICARBONATE TAB 650 MG TABLET PO ×2 (08:19→16:59)
[2024-05-17] MEDS: cilostazoL 100 MG TABLET PO (08:19)
[2024-05-17] MEDS: AMOXICILLIN/CLAVULANATE K 500-125 MG TAB 1 TABLET PO ×2 (13:49→22:10)
--- NOTE | 2024-05-17 13:56 | PM.IMPN ---
Progress Note: A&P Assessment and Plan (1) Acute kidney injury superimposed on CKD: Code(s): N17.9 - Acute kidney failure, unspecified; N18.9 - Chronic kidney disease, unspecified Status: Acute Assessment and Plan: History of CKD stage 3 but BUN creatinine is 2.9 usually runs at 1.6 Continue fluid hydration Cxr shows mall bilateral pleural effusions will cut back the rate but will continue to hydrate - back to baseline 05/17/24: Hold IVF. Pt's respiratory sounds have changed. He has fine rales present now. Lasix 20 mg IVP ordered. Renal function stable today at 2.07/06 Continue to trend renal function. (2) UTI (urinary tract infection): Code(s): N39.0 - Urinary tract infection, site not specified Status: Acute Assessment and Plan: Patient self catheterizes at home for chronic urinary retention Prior urine cultures have grown Enterococcus or yeast Due to Enterococcus on prior urine culture, initiated vancomycin which is to be dosed by pharmacy due to renal failure Watch for UC will add IV rocephin also for better coverage 05/15- ua culture is back. will stop vanc, continue rocephin -05/16- can de escalate to po tomorrow and anticipate discharge with a close f/u with urology 05/17/24: Abx changed to oral Augmentin 500 mg BID based on the culture and sensitivity. Urinary function is improving. (3) Heart failure: Qualifiers: Heart failure type: systolic Heart failure chronicity: acute on chronic Qualified Code(s): I50.23 - Acute on chronic systolic (congestive) heart failure Code(s): I50.9 - Heart failure, unspecified Status: Chronic Assessment and Plan: Acute on chronic Last ECHO showing mild reduction of Systolic function at 40-45% EF on 11/08/23. As evidenced by Physical exam of respiratory system as well as results of CXR. (4) Sepsis: Code(s): A41.9 - Sepsis, unspecified organism Status: Resolved Assessment and Plan: Presumed urogenital source Metabolic acidosis noted on chemistry panel,watch lactic levels 05/14- WBC improved today- 7.5, afebrile 05/16- stable 05/17/24: Resolved, no longer meeting Sepsis criteria. (5) Cardiomyopathy: Code(s): I42.9 - Cardiomyopathy, unspecified Status: Chronic Assessment and Plan: Prior EF 40-45%, furosemide, metoprolol and Entresto are home medications were held can reintroduce few today 05/14- restarted entresto and metoprolol but holding lasix for now 05/17/24: Restarted Lasix today based on lung sounds and also on findings of CXR. (6) Atrial fibrillation: Code(s): I48.91 - Unspecified atrial fibrillation Status: Chronic Assessment and Plan: Not anticoagulated due to Crohn's disease 05/17/24: Not on any baseline oral anticoagulation secondary to hx of Crohn's disease. (7) Urinary retention: Code(s): R33.9 - Retention of urine, unspecified Status: Acute Assessment and Plan: Babin catheter in place - will re evalutae if needs removed tommorrow 05/17/24: Continuing Babin catheter today as pt has his lasix restarted and we need accurate output. Consider bladder training tomorrow, but does at baseline self cath for urinary retention. Plan anticipate discharge on friday as continues to improve Time Spent With Patient Time with patient: Greater than 35 minutes Subjective Date/time seen: 05/17/24 1000 Interval history: This pt was examined at the bedside today in interval assessment. He appears confused to me and speaks of where he used to work as though he is currently there and still working. He has no s/s of acute distress and easily able to be redirected and reoriented. He has no acute complaints other than feeling slightly dyspneic at times. Review of Systems Review of Systems: Pt is confused during my obtaining ROS, but is easily re-oriented and answers appropriately. All systems reviewed & ar
[2024-05-17] MEDS: LOPERAMIDE HCL 2 MG CAPSULE PO ×2 (13:57→16:59)
[2024-05-17] MEDS: FUROSEMIDE INJ 40 MG/4 ML VIAL 20 MG IV PUSH (14:51)
[2024-05-18] VITALS: PULSE 91
[2024-05-18 04:00] VITALS: PULSE 91
[2024-05-18 04:46] VITALS: BP 106/55; PULSE 68; RESP 17; TEMP 36.7; O2SAT 93
[2024-05-18 06:45] LABS: Basophils Absolute Auto 0.1 K/mm3 (0.0-0.1); Basophils Percent Auto 0.6 % (0.2-1.2); Eosinophils Absolute Auto 0.5 K/mm3 (0-0.3); Hematocrit 31.7 % (42.0-52.0); Hemoglobin 10.3 g/dL (14.0-18.0); Immature Granulocyte Absolute 0.03 K/mm3 (0.00-0.031); Immature Granulocyte Percent A 0.3 % (0-0.5); Lymphocytes Percent Auto 7.9 % (18.3-44.2); Mean Corpuscular HGB Conc 32.5 g/dl (32-36); Mean Corpuscular Hemoglobin 31.5 pg (26-34); Mean Corpuscular Volume 96.9 fl (80-100); Mean Platelet Volume 9.6 fl (7.4-10.4); Monocytes Absolute Auto 0.8 K/mm3 (0.1-0.6); Monocytes Percent Auto 9.4 % (2.6-8.5); Neutrophils Absolute Auto 6.7 K/mm3 (1.3-6.7); Neutrophils Percent Auto 75.8 % (45.5-73.1); Platelet Count Result 159 k/mm3 (150-375); Red Blood Count 3.27 M/mm3 (4.6-6.20); Red Cell Distribution Width 14.6 % (11.5-14.5); White Blood Count 8.8 K/mm3 (4.5-10.0)
[2024-05-18 07:01] LABS: Alanine Aminotransferase 38 U/L (6-50); Albumin Level 3.4 g/dL (3.5-5.1); Alkaline Phosphatase 88 U/L (38-126); Anion Gap 11 mmol/L (4-12); Aspartate Amino Transferase 34 U/L (17-59); Bilirubin,Total 0.6 mg/dL (0.2-1.3); Blood Urea Nitrogen 22 mg/dL (9-20); Calcium 8.6 mg/dL (8.4-10.2); Carbon Dioxide 19 mmol/L (22-30); Chloride 106 mmol/L (98-107); Estimated CRCL calculation 22 ml/min; Estimated Glomerular Filt Rate 26; Glucose 91 mg/dL (65-110); Magnesium 1.8 mg/dL (1.6-2.3); Potassium 4.1 mmol/L (3.4-5.0); Sodium 136 mmol/L (137-145)
[2024-05-18 08:04] VITALS: PULSE 91
[2024-05-18] MEDS: ENOXAPARIN 30 MG/0.3 ML SYRINGE SUB-Q (08:10)
[2024-05-18] MEDS: FLUTICASONE PROPIONATE 0.05% NA SPR 16 GM BTL (*BKC) 1 SPRAY NASAL (08:10)
[2024-05-18 08:11] VITALS: PULSE 89
[2024-05-18] MEDS: METOPROLOL TARTRATE 50 MG TAB 150 MG PO (08:11)
[2024-05-18] MEDS: AMOXICILLIN/CLAVULANATE K 500-125 MG TAB 1 TABLET PO (08:11)
[2024-05-18] MEDS: cilostazoL 100 MG TABLET PO (08:11)
[2024-05-18] MEDS: POTASSIUM CHLORIDE 20 MEQ PACKET (FOR LIQUID) 40 MEQ PO (08:11)
[2024-05-18] MEDS: ESCITALOPRAM OXALATE 10 MG TABLET 20 MG PO (08:11)
[2024-05-18] MEDS: ATORVASTATIN 10 MG TABLET PO (08:12)
[2024-05-18] MEDS: SODIUM BICARBONATE TAB 650 MG TABLET PO (08:12)
[2024-05-18] MEDS: SACUBITRIL/VALSARTAN 24-26 MG TABLET 1 TAB PO (08:12)
[2024-05-18 08:13] VITALS: RESP 18; O2SAT 93
[2024-05-18] MEDS: ASPIRIN 81 MG ENTERIC TABLET PO (08:13)
[2024-05-18] MEDS: MULTIVITAMINS /C LUTEIN (CENTRUM SILVER) TABLET *BKC 1 TAB PO (08:13)
--- NOTE | 2024-05-18 10:32 | PM.DS ---
DS: Admitting Diagnosis Discharge Date 05/18/2020 Admitting Diagnosis UTI with PREMA DS: Discharge Diagnosis Discharge Diagnosis (1) Acute kidney injury superimposed on CKD: Code(s): N17.9 - Acute kidney failure, unspecified; N18.9 - Chronic kidney disease, unspecified Status: Acute Assessment and Plan: History of CKD stage 3 but BUN creatinine is 2.9 usually runs at 1.6 Continue fluid hydration Cxr shows mall bilateral pleural effusions will cut back the rate but will continue to hydrate - back to baseline 05/17/24: Hold IVF. Pt's respiratory sounds have changed. He has fine rales present now. Lasix 20 mg IVP ordered. Renal function stable today at 2.07/06 Continue to trend renal function. 05/18/2024: -date of discharge patient's renal function is marginally increased from 2.1 yesterday to 2.4 today after receiving a 1 time 20 mg per orally dose of Lasix. I had received a call yesterday from Nephrology stating that patient's renal function is likely at a new higher level and he was fine with discharge at this time and follow-up. Patient's Lasix will be discontinued upon discharge as his overall volume pattern is improved. (2) UTI (urinary tract infection): Code(s): N39.0 - Urinary tract infection, site not specified Status: Acute Assessment and Plan: Patient self catheterizes at home for chronic urinary retention Prior urine cultures have grown Enterococcus or yeast Due to Enterococcus on prior urine culture, initiated vancomycin which is to be dosed by pharmacy due to renal failure Watch for UC will add IV rocephin also for better coverage 05/15- ua culture is back. will stop vanc, continue rocephin -05/16- can de escalate to po tomorrow and anticipate discharge with a close f/u with urology 05/17/24: Abx changed to oral Augmentin 500 mg BID based on the culture and sensitivity. Urinary function is improving. 05/18/2024: Date of discharge -patient does not meet sepsis criteria. He has no acute signs of infection.He will be discharged home on Augmentin 500 mg q.12 hours for the next 7 days for urine culture that grew out Klebsiella. (3) Heart failure: Qualifiers: Heart failure chronicity: acute on chronic Heart failure type: systolic Qualified Code(s): I50.23 - Acute on chronic systolic (congestive) heart failure Code(s): I50.9 - Heart failure, unspecified Status: Chronic Assessment and Plan: Acute on chronic Last ECHO showing mild reduction of Systolic function at 40-45% EF on 11/08/23. As evidenced by Physical exam of respiratory system as well as results of CXR. 05/18/2024: Date of discharge -stable and appearing euvolemic this morning. Last documented echo from October of 2023 showing reduction of systolic function with 40-45% EF. Patient discharged home on Entresto, and beta jackelyn that secondary to PREMA his furosemide will be held until he can follow up with primary care provider. (4) Sepsis: Code(s): A41.9 - Sepsis, unspecified organism Status: Resolved Assessment and Plan: Presumed urogenital source Metabolic acidosis noted on chemistry panel,watch lactic levels 05/14- WBC improved today- 7.5, afebrile 05/16- stable 05/17/24: Resolved, no longer meeting Sepsis criteria. (5) Cardiomyopathy: Code(s): I42.9 - Cardiomyopathy, unspecified Status: Chronic Assessment and Plan: Prior EF 40-45%, furosemide, metoprolol and Entresto are home medications were held can reintroduce few today 05/14- restarted entresto and metoprolol but holding lasix for now 05/17/24: Restarted Lasix today based on lung sounds and also on findings of CXR. 05/18/2024 date of discharge -patient will be discharged home today is he appears euvolemic. He will not be discharged home on his Lasix. 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 (6) Atrial fibrillation: Code(s): I48.91 - U
== END 2024-05-18 13:20 | disposition home or self-care (01) | DRG 683 ==
LOC: ANHED 20:49 → ANH2MED 20:54
PROVIDERS: Internal Medicine; Internal Medicine Nephrology; Nurse Practitioner; Registered Nurse; Admitting Provider Internal Medicine; Emergency Provider Emergency Medicine; PCP Family Medicine Sports Medicine; Visit Provider Nurse Practitioner Adult Health
DX: N17.9 Acute kidney failure, unspecified (principal); I13.0 Hypertensive heart and chronic kidney disease with heart failure and stage 1 through stage 4 chronic kidney disease, or unspecified chronic kidney disease; N39.0 Urinary tract infection, site not specified; I48.20 Chronic atrial fibrillation, unspecified; I50.22 Chronic systolic (congestive) heart failure; I42.9 Cardiomyopathy, unspecified; K50.90 Crohn's disease, unspecified, without complications; N18.30 Chronic kidney disease, stage 3 unspecified; I25.10 Atherosclerotic heart disease of native coronary artery without angina pectoris; I73.9 Peripheral vascular disease, unspecified; D50.9 Iron deficiency anemia, unspecified; E53.8 Deficiency of other specified B group vitamins; E78.5 Hyperlipidemia, unspecified; B96.1 Klebsiella pneumoniae [K. pneumoniae] as the cause of diseases classified elsewhere; N40.1 Benign prostatic hyperplasia with lower urinary tract symptoms; R33.8 Other retention of urine; M10.9 Gout, unspecified; M19.90 Unspecified osteoarthritis, unspecified site; F01.50 Vascular dementia, unspecified severity, without behavioral disturbance, psychotic disturbance, mood disturbance, and anxiety; F32.A Depression, unspecified; Z95.1 Presence of aortocoronary bypass graft; Z79.82 Long term (current) use of aspirin; Z95.820 Peripheral vascular angioplasty status with implants and grafts; Z87.891 Personal history of nicotine dependence; Z87.442 Personal history of urinary calculi
CPT/HCPCS: 36415; 71045; 76775; 80053; 80202; 81001; 81050; 82550; 82570; 82948; 83605; 83735; 84145; 84156; 84300; 84443; 84484; 84540; 85025; 85610; 85730; 85999; 86140; 87040; 87077; 87086; 87088; 87186; 87493; 87637; 93005; 96361; 96365; 96367; 97110; 97161; 97165; 97530; 99285; A9270; J0696; J1650; J1940; J3370; J3480; J7030; J7040; J7120

== ENCOUNTER 2024-05-27 02:40 | Inpatient (IN) | payer MEDICARE, SELFPAY ==
[2024-05-27] VITALS (15 sets, daily range): BP systolic 99–129; BP diastolic 57–89; PULSE 71–91; RESP 12–18; TEMP 36.3–37.1; O2SAT 93–100; BMI 19.3
--- NOTE | ~2024-05-27 | XR_ITS ---
Portable chest x-ray Comparison: 05/17/2024 Clinical History: Hypotension Findings: Small right pleural effusion present. Left lung clear. Cardiomediastinal silhouette is st able, status post CABG. Bones and soft tissues are unremarkable. Impression: Small right pleural effusion. Reviewed, dictated and finalized at [facility]. Impression: Small right pleural effusion.
[2024-05-27 03:37] LABS: Alveolar/Arterial O2 Gradient 24.5 mmHg; Base Excess ABG -7.3 mEq/l (+/-2.0); Device ROOM AIR; Fractional Inspired Oxygen 21 %; HCO3 ABG 17.6 mEq/l (22.0-26.0); Oxygen Content ABG 13.5 %vol (16.0-22.0); Oxyhemoglobin 94.1 % THb (90.0-100.0); PCO2 ABG 33.6 mmHg (35.0-45.0); PO2 FiO2 Ratio Arterial Blood 4.05 %; Site Drawn RIGHT BRACHIAL; Total Hemoglobin 10.1 g/dL (12.0-18.0); pH ABG 7.338 (7.350-7.450)
[2024-05-27] MEDS: SODIUM CHLORIDE 0.9% IV 1,000 ML 999 ML IV CONT (03:59)
[2024-05-27 04:04] LABS: Basophils Absolute Auto 0.1 K/mm3 (0.0-0.1); Basophils Percent Auto 0.4 % (0.2-1.2); Eosinophils Absolute Auto 0.2 K/mm3 (0-0.3); Eosinophils Percent Auto 1.7 % (0-4.4); Hematocrit 30.8 % (42.0-52.0); Hemoglobin 9.8 g/dL (14.0-18.0); Immature Granulocyte Absolute 0.06 K/mm3 (0.00-0.031); Immature Granulocyte Percent A 0.5 % (0-0.5); Lymphocytes Absolute Auto 0.93 K/mm3 (0.9-3.2); Mean Corpuscular HGB Conc 31.8 g/dl (32-36); Mean Corpuscular Hemoglobin 31.2 pg (26-34); Mean Corpuscular Volume 98.1 fl (80-100); Mean Platelet Volume 9.7 fl (7.4-10.4); Monocytes Absolute Auto 1.1 K/mm3 (0.1-0.6); Monocytes Percent Auto 9.4 % (2.6-8.5); Neutrophils Absolute Auto 9.3 K/mm3 (1.3-6.7); Platelet Count Result 150 k/mm3 (150-375); Red Blood Count 3.14 M/mm3 (4.6-6.20); Red Cell Distribution Width 14.8 % (11.5-14.5); White Blood Count 11.6 K/mm3 (4.5-10.0)
[2024-05-27 04:16] LABS: Acetaminophen < 10 ug/mL (10-30); Lactic Acid Reflex 0.6 mmol/L (0.7-2.0)
[2024-05-27 04:22] LABS: INR 1.7; Prothrombin Time 20.2 Seconds (11.1-14.7)
[2024-05-27 04:23] LABS: Partial Thromboplastin Time 39.5 Seconds (22.3-36.8)
[2024-05-27 04:29] LABS: Troponin I < 0.012 ng/mL (0.000-0.034)
[2024-05-27 04:40] LABS: Influenza A QL RT-PCR Negative (Negative); Influenza B QL RT-PCR Negative (Negative); RSV RNA, RT-PCR Negative (Negative); SARS-CoV-2 RNA PCR Negative (Negative)
[2024-05-27 04:49] LABS: Alanine Aminotransferase 38 U/L (6-50); Albumin Level 3.1 g/dL (3.5-5.1); Alkaline Phosphatase 72 U/L (38-126); Anion Gap 11 mmol/L (4-12); Aspartate Amino Transferase 34 U/L (17-59); Bilirubin,Total 0.6 mg/dL (0.2-1.3); Blood Urea Nitrogen 32 mg/dL (9-20); Carbon Dioxide 18 mmol/L (22-30); Chloride 106 mmol/L (98-107); Estimated CRCL calculation 18 ml/min; Estimated Glomerular Filt Rate 21; Glucose 89 mg/dL (65-110); Lipase 398 U/L (23-300); Magnesium 1.7 mg/dL (1.6-2.3); Phosphorus 3.7 mg/dL (2.5-4.5); Potassium 3.6 mmol/L (3.4-5.0); Sodium 135 mmol/L (137-145)
[2024-05-27 04:57] LABS: NT Pro B Type Natriuretic Pept 4930 pg/mL (19.9-100)
[2024-05-27 05:05] LABS: Troponin I < 0.012 ng/mL (0.000-0.034)
[2024-05-27 05:33] LABS: Add Urine Microscopic? YES; Appearance Urine Clear (Clear); Bacteria Urine None Seen /hpf; Bilirubin Urine Negative (Negative); Blood Urine 1+ (Negative); Budding Yeast Urine Present /hpf; Color Urine Yellow (Yellow); Glucose Urine UA Negative (Negative); Ketones Urine Negative (Negative); Leukocyte Esterase Ur 1+ LEU/UL (Negative); Mucus Urine Present /lpf; Need Manual Microscopic Reviewed; Nitrate Urine Negative (Negative); Protein Urine 1+ mg/dL (Negative); Specific Grav Ur 1.015 (1.001-1.035); Squamous Epithelial Cell Urine Occasional /hpf (Few); Urobilinogen Urine 0.2 mg/dL (<2.0); pH Urine 5.5 (5.0-9.0)
--- NOTE | 2024-05-27 06:16 | ED_ITS ---
HPI - General Adult General Chief complaint: Recheck/Abnormal Lab/Rx Stated complaint: HYPOTENSION Time Seen by Provider: 05/27/24 03:04 History of Present Illness HPI narrative: This is a 79-year-old male history of chronic kidney disease, and congestive heart failure presenting ED for low blood pressures. His has been taking his blood pressures at home and they had been as low as 70/50. They were seen here earlier today but decided they did not want to seek care and went back home. Starting yesterday the patient also developedof fevers over 100, chills weakness lethargy. Patient was admitted in our hospital and discharged on May 18 after being admitted for urinary tract infection and acute kidney injury. Patient completed his course of Augmentin 2 days ago. Shortly after that he developed his current symptoms. Related Data Home Medications Medication Instructions Recorded Confirmed Lactobacillus 1 cap PO DAILY 11/08/23 05/12/24 acidophilus-Bifidobac.animalis 2.5 billion cell capsule (Daily Probiotic) allopurinol 100 mg tablet 100 mg PO DAILY 11/08/23 05/12/24 aspirin 81 mg tablet 81 mg PO DAILY 11/08/23 05/12/24 atorvastatin 10 mg tablet 10 mg PO DAILY 11/08/23 05/12/24 cilostazol 100 mg tablet 100 mg PO DAILY 11/08/23 05/12/24 coenzyme Q10 200 mg capsule (Co 200 mg PO DAILY 11/08/23 05/12/24 Q-10) escitalopram oxalate 20 mg tablet 20 mg PO DAILY 11/08/23 05/12/24 multivit with minerals-iron 18 1 tablet PO DAILY 11/08/23 05/12/24 mg-folic ac 400 mcg-vit K 25 mcg tablet (Adults Multivitamin) Folcaps [place]-3 1 cap PO BID 05/12/24 05/12/24 fluticasone propionate 50 1 spray intranasal DAILY 05/12/24 05/12/24 mcg/actuation nasal spray,suspension furosemide 40 mg tablet 40 mg PO DAILY 05/12/24 05/12/24 Allergies Allergy/AdvReac Type Severity Reaction Status Date / Time No Known Allergies Allergy Verified 11/07/23 19:49 [facility] Past Medical History Medical History Abdominal pain B12 deficiency Benign prostatic hyperplasia Chronic anemia Chronic kidney disease, stage 3 Coronary artery disease Crohn's disease Depression Gout Hyperlipidemia Hypertension Iron deficiency anemia Kidney stones Osteoarthritis Peripheral vascular disease Seizures Vascular dementia Surgical History Surgical History History of bilateral cataract extraction History of cholecystectomy History of coronary artery bypass graft History of lithotripsy History of partial colectomy X2 for to bowel obstructions and fistula secondary to Crohn's disease. History of vascular surgery Bilateral lower extremity stents. Family History Family History Father Myocardial infarct Cerebrovascular accident Mother Breast cancer Sibling Crohn's disease Social History Social History Social History: Surrogate decision maker: Sarah Oreilly, spouse. Code status: Do not resuscitate. Smoking packs per day: 2 Smoking cigarettes per day: 40.0 Years smoked: 25 Smoking pack-years: 50.00 Smoking status: Former smoker Second hand tobacco smoke exposure: No Alcohol intake: never Drinks per week: 1 Substance use: never Substance use type: does not use Other substance usage details: pt unable to answer confused Do You Feel Safe in your Home?: Yes Lack of Transportation: No Lack of Food: Never True Current Housing: I Have Housing Concerned About Future Housing: No Difficulty Paying Gas/Electric Bills: No Difficulty Paying for Meds: No Currently Unemployed: No Education: High School Diploma/GED Difficulty w/ Childcare or Family Care: No Additional living arrangements comments: The patient lives with his in [place]. Additional occupation/education comments: Retired from [employer]. Spiritual care concerns: No Exam Narrative: APPEARANCE: Patient appears chronically on healthy Head: atraumatic. EYES: EOMI, NOSE: Atraumatic NECK: Trachea midline RESPIRATORY: Normal respiratory rate, basilar crackles CARDIOVASCULAR: RRR, no peripheral edema ABDOMINAL: Soft nontender no guarding or rebound MUSCULOSKELETAl: No obvious deformities NEURO: Alert. Moving 4/4 extremities SKIN:: Warm, dry. Normal color PSYCHIATRIC: Normal affect Course Vital Signs Vital signs: Vital Signs Temperature 98.4 F 05/27/24 02:41 Pulse Rate 78 05/27/24 02:41 Respiratory Rate 16 05/27/24 02:41 Blood Pressure 99/59 L 05/27/24 02:41 Pulse Oximetry 98 05/27/24 02:41 Oxygen Delivery Room Air 05/27/24 02:41 Temperature 98.4 F 05/27/24 02:41 Pulse Rate 78 05/27/24 02:41 Respiratory Rate 16 05/27/24 02:41 Blood Pressure 99/59 L 05/27/24 02:41 Pulse Oximetry 98 05/27/24 02:41 Oxygen Delivery Room Air 05/27/24 02:41 Medical Decision Making MDM Narrative Medical decision making narrative: -Course: 79-year-old male presenting with hypotension. Patient was given 2 L o f IV saline with improvement of blood pressures. Sepsis workup was ordered. Urine with 6-10 white blood cells and +1 leuk esterase. Last UTI was pansensitive Klebsiella. Patient started on ceftriaxone. Patient be admitted the hospital for further management. -DDX includes but is not limited to: UTI, dehydration, sepsis, pneumonia, congestive heart failure -Co-morbidities complicating care: Heart failure, UTIs, chronic kidney disease -External Chart Review: Review of discharge summary from February 15 -Hx from independent Sources: @bedside -Independent interpretation of studies: white blood cell count 11.6, hemoglobin 9.8 ABG 7.338/33.6/85/17.6 - metabolic acidosis Creatinine 2.9 -discharged @ 2.5 Lactic 0.6 BNP 4900 troponin undetectable Urine with 6-10 white blood cells and positive leuk esterase. Viral swabs negative Blood cultures pending Chest x-ray showed small pleural effusion -Interventions: 2 L normal saline, ceftriaxone -Shared decision making / Disposition: Admitted Vital Signs Vital Signs: Vital Signs Temperature 98.4 F 05/27/24 02:41 Pulse Rate 78 05/27/24 02:41 Respiratory Rate 16 05/27/24 02:41 Blood Pressure 99/59 L 05/27/24 02:41 Pulse Oximetry 98 05/27/24 02:41 Oxygen Delivery Room Air 05/27/24 02:41 Temperature 98.4 F 05/27/24 02:41 Pulse Rate 78 05/27/24 02:41 Respiratory Rate 16 05/27/24 02:41 Blood Pressure 99/59 L 05/27/24 02:41 Pulse Oximetry 98 05/27/24 02:41 Oxygen Delivery Room Air 05/27/24 02:41 Lab Data 05/27/24 03:56 05/27/24 03:56 Labs: Lab Results 05/27/24 05/27/24 05/27/24 Range/Units 03:56 03:56 05:16 WBC 11.6 H (4.5-10.0) K/mm3 RBC 3.14 L (4.6-6.20) M/mm3 Hgb 9.8 L (14.0-18.0) g/dL Hct 30.8 L (42.0-52.0) % MCV 98.1 (80-100) fl MCH 31.2 (26-34) pg MCHC 31.8 L (32-36) g/dl RDW 14.8 H (11.5-14.5) % Plt Count 150 (150-375) k/mm3 MPV 9.7 (7.4-10.4) fl Immature Gran % (Auto) 0.5 (0-0.5) % Neut % (Auto) 80.0 H (45.5-73.1) % Lymph % (Auto) 8.0 L (18.3-44.2) % [place] % (Auto) 9.4 H (2.6-8.5) % Eos % (Auto) 1.7 (0-4.4) % Baso % (Auto) 0.4 (0.2-1.2) % Lymph # (Auto) 0.93 (0.9-3.2) K/mm3 [place] # (Auto) 1.1 H (0.1-0.6) K/mm3 Eos # (Auto) 0.2 (0-0.3) K/mm3 Baso # (Auto) 0.1 (0.0-0.1) K/mm3 Abs Immat Gran (auto) 0.06 H (0.00-0.031) K/mm3 Absolute Neuts (auto) 9.3 H (1.3-6.7) K/mm3 Absolute Nucleated RBC 0.000 (0.0-0.012) K/mm3 Nucleated RBC % 0.0 (0.0-0.2) % PT 20.2 H (11.1-14.7) Seconds INR 1.7 APTT 39.5 H (22.3-36.8) Seconds Sodium 135 L (137-145) mmol/L Potassium 3.6 (3.4-5.0) mmol/L Chloride 106 (98-107) mmol/L Carbon Dioxide 18 L (22-30) mmol/L Anion Gap 11 (4-12) mmol/L BUN 32 H D (9-20) mg/dL Creatinine 2.90 H (0.7-1.3) mg/dL Estim Creat Clear Calc 18 ml/min Estimated GFR 21 L (59 - ) Glucose 89 (65-110) mg/dL Lactic Acid 0.6 L (0.7-2.0) mmol/L Calcium 8.0 L (8.4-10.2) mg/dL Phosphorus 3.7 (2.5-4.5) mg/dL Magnesium 1.7 (1.6-2.3) mg/dL Total Bilirubin 0.6 (0.2-1.3) mg/dL AST 34 (17-59) U/L ALT 38 (6-50) U/L Alkaline Phosphatase 72 (38-126) U/L Troponin I < 0.012 < 0.012 (0.000-0.034) ng/mL NT-Pro-B Natriuret Pep 4930 H (19.9-100) pg/mL Total Protein 6.0 L (6.3-8.2) g/dL Albumin 3.1 L (3.5-5.1) g/dL Lipase 398 H (23-300) U/L TSH (Reflex) 1.670 (0.465-4.68) uIU/mL Urine Color Yellow (Yellow) Urine Appearance Clear (Clear) Urine pH 5.5 (5.0-9.0) Ur Specific [place] 1.015 (1.001-1.035) Urine Protein 1+ H (Negative) mg/dL Urine Glucose (UA) Negative (Negative) mg/dL Urine Ketones Negative (Negative) mg/dL Ur Blood (Man) 1+ H (Negative) Urine Nitrate Negative (Negative) Urine Bilirubin Negative (Negative) Urine Urobilinogen 0.2 (<2.0) mg/dL Add Ur Microanalysis Reviewed Leukocyte Esterase Rfl 1+ H (Negative) LUCIO/UL Urine RBC 3-5 H (0-2) /hpf Urine WBC 6-10 H (0-3) /hpf Ur Squamous Epith Cells Occasional (Few) /hpf Urine Bacteria None seen /hpf Urine Casts 3-5 Urine Mucus Present /lpf Urine Yeast (Budding) Present H (None) /hpf Acetaminophen < 10 L (10-30) ug/mL Influenza A (RT-PCR) Negative (Negative) Influenza B (RT-PCR) Negative (Negative) RSV (RT-PCR) Negative (Negative) SARS-CoV-2 RNA (RT-PCR) Negative (Negative) Blood Type O Positive Antibody Screen Negative ABG Data ABG results: 05/27/24 03:25 Puncture Site Right brachial ABG pH 7.338 L ABG pCO2 33.6 L ABG pO2 85.0 ABG PO2/FiO2 Ratio 4.05 ABG HCO3 17.6 L ABG O2 Saturation 96.0 ABG O2 Content 13.5 L ABG Base Excess -7.3 A-a Gradient 24.5 Oxyhemoglobin 94.1 Total Hemoglobin 10.1 L O2 Delivery Device Room air O2 Liters/Min 0.0 FiO2 21 Discharge Plan Discharge Clinical Impression: Acute hypotension, Acute UTI Patient Disposition: Still a Patient Condition: Stable Prescriptions: No Action fluticasone propionate 50 mcg/actuation spray,suspension 1 spray INTRANASAL DAILY furosemide 40 mg tablet 40 mg PO DAILY Hold Instructions: Resume on 05/28/25. Hold until told to resume by primary care provider and Nephrology. Folcaps [place]-3 1 cap PO BID amoxicillin-pot clavulanate [Augmentin] 500-125 mg Tablet 1 tablet PO Q12HR 7 Days Qty: 14 0RF cilostazol 100 mg tablet 100 mg PO DAILY atorvastatin 10 mg tablet 10 mg PO DAILY allopurinol 100 mg tablet 100 mg PO DAILY aspirin 81 mg Tablet 81 mg PO DAILY escitalopram oxalate 20 mg tablet 20 mg PO DAILY coenzyme Q10 [Co Q-10] 200 mg Capsule 200 mg PO DAILY Adults Multivitamin 18 mg iron-400 mcg-25 mcg Tablet 1 tablet PO DAILY Daily Probiotic 2.5 billion cell Capsule 1 cap PO DAILY Entresto 24-26 mg Tablet 1 tablet PO Q12HR Qty: 60 0RF metoprolol tartrate 50 mg Tablet 150 mg PO Q12HR Qty: 180 0RF Follow-up/Referrals: Jesus,Anayeli Lyons MD [Primary Care Provider] -
--- NOTE | 2024-05-27 06:24 | ECG_ITS ---
Test Date: 2024-05-27 07:25:02 Measurements Intervals [place] Rate: 72 P: 0 IA: 0 QRS: 62 QRSD: 101 T: 56 QT: 418 QTc: 460 Interpretive Statements ATRIAL FIBRILLATION WITH ABERRANT CONDUCTION OR VENTRICULAR PREMATURE COMPLEXES BASELINE ARTIFACT- V1 ABNORMAL ECG Compared to ECG 05/12/2024 16:37:43 No significant changes Electronically Signed On 05-27-2024 07:43:13 CDT by Yared Martinez D.O.
--- NOTE | 2024-05-27 08:59 | PC.NURSE ---
breakfast tray ordered for pt, requested for pts tray to be sent to 244.
--- NOTE | 2024-05-27 09:21 | PC.NURSE ---
pt given breakfast tray
--- NOTE | 2024-05-27 10:27 | ADMGEN ---
This patient, Vitaly Oreilly, was admitted to Medical Room 244-. Patient/family oriented to hospital policies and general routines including ID bracelet, bed and alarms, visiting hours, pain management, procedures, bathroom and other care routines, personal items, smoking policy, room service/diet, and visiting hours. Information on how to activate the Rapid Response Team has been discussed. Patient/Family are encouraged to report perceived risks to care and to ask questions if they do not understand what they are told or what they should do.
--- NOTE | 2024-05-27 11:54 | PM.IMHP ---
H&P: HPI History of Present Illness Date/Time: 05/27/24 11:54 Chief Complaint: Hypotension Narrative: 79 y/o M presents here with hypotension with PMH of BPH, chronic anemia in the setting of CKD and iron deficiency, CKD stage 3, CAD, Crohn's, depression, gout, HLD, HTN, peripheral vascular disease, seizures, and vascular dementia. The patient presents here from home for further evaluation of low blood pressure. The patient's has been monitoring his blood pressure and reports it has been downtrending over the past 3-4 days. Lowest BP noted at home was 70/50 3 days ago. Hypotension is accompanied by fever (100F), chills, generalized weakness, shaky , and fatigue. Patient had recent admission at [facility] from 05/13-05/18 for altered mental status and weakness, was diagnosed with a UTI (UC grew out Klebsiella) and an PREMA superimposed on CKD. Patient at risk for UTIs due to self catheterization at home for urinary retention, has been doing this for the past 2 years. Patient has hx of dementia - at baseline is orientated to self and typically place, may not know year/home address/short term and is able to recognize family. concerned UTI from the end of last month may not have resolved, after he was discharged he only had one good day and has remained weak/shaky. Initial VS at presentation: 98.4? F, HR 70, RR 16, 99/59, and 98% on RA ED workup showed: WBC 11.6, hemoglobin 9.8 (previously 10.3 on 05/18/2024, near baseline), INR 1.7, creatinine 2.9 and GFR 21 (previously 2.4 and GFR 26 on 05/18/2024), lactic 0.6, BNP 4930, lipase 398, and initial troponin negative. Review of Systems Review of Systems: ROS unobtainable: Yes unobtainable due to mental status (limited, A/Ox1) [facility] Past Medical History Medical History (Updated 05/27/24 @ 12:15 by Lucia Escobedo, [place]) Abdominal pain Atrial fibrillation with RVR B12 deficiency Benign prostatic hyperplasia Cardiomyopathy Chronic anemia Chronic kidney disease, stage 3 Coronary artery disease Crohn's disease Depression Gout Heart failure Hyperlipidemia Hypertension Iron deficiency anemia Kidney stones Osteoarthritis Peripheral vascular disease Recurrent incisional hernia Seizures Vascular dementia Surgical History Surgical History (Updated 05/27/24 @ 12:09 by Lucia Escobedo APRN) History of bilateral cataract extraction History of cholecystectomy History of coronary artery bypass graft History of lithotripsy History of partial colectomy X2 for to bowel obstructions and fistula secondary to Crohn's disease. History of vascular surgery Bilateral lower extremity stents. S/P CABG (coronary artery bypass graft) Family History Family History Father Myocardial infarct Cerebrovascular accident Mother Breast cancer Sibling Crohn's disease Social History Social History Social History: Surrogate decision maker: Sarah Oreilly, spouse. Code status: Do not resuscitate. Smoking packs per day: 2 Smoking cigarettes per day: 40.0 Years smoked: 25 Smoking pack-years: 50.00 Smoking status: Former smoker Second hand tobacco smoke exposure: No Alcohol intake: never Substance use: never Substance use type: does not use Do You Feel Safe in your Home?: Yes Lack of Transportation: No Lack of Food: Never True Current Housing: I Have Housing Concerned About Future Housing: No Difficulty Paying Gas/Electric Bills: No Difficulty Paying for Meds: No Currently Unemployed: No Education: Don't Know Difficulty w/ Childcare or Family Care: No Additional living arrangements comments: The patient lives with his in [place]. Additional occupation/education comments: Retired from [email or web address]. Spiritual care concerns: No Meds Home Medications and Allergies Home Medications Medication Instructions Recorded Confirmed Type Lactobacillus 1 cap PO DAILY 11/08/23 05/27/24 History acidophilus-Bifidobac.animalis 2.5 billion cell capsule (Daily Probiotic) allopurinol 100 mg tablet 100 mg PO DAILY 11/08/23 05/27/24 History aspirin 81 mg tablet 81 mg PO DAILY 11/08/23 05/27/24 History atorvastatin 10 mg tablet 10 mg PO DAILY 11/08/23 05/27/24 History cilostazol 100 mg tablet 100 mg PO DAILY 11/08/23 05/27/24 History coenzyme Q10 200 mg capsule (Co 200 mg PO DAILY 11/08/23 05/27/24 History Q-10) escitalopram oxalate 20 mg tablet 20 mg PO DAILY 11/08/23 05/27/24 History multivit with minerals-iron 18 1 tablet PO DAILY 11/08/23 05/27/24 History mg-folic ac 400 mcg-vit K 25 mcg tablet (Adults Multivitamin) metoprolol tartrate 50 mg tablet 150 mg PO Q12HR #180 tabs 11/11/23 05/27/24 Rx sacubitril 24 mg-valsartan 26 mg 1 tablet PO Q12HR #60 tabs 11/11/23 05/27/24 Rx tablet (Entresto) Folcaps [place]-3 1 cap PO BID 05/12/24 05/27/24 History fluticasone propionate 50 1 spray intranasal DAILY 05/12/24 05/27/24 History mcg/actuation nasal spray,suspension furosemide 40 mg tablet 40 mg PO DAILY 05/12/24 05/27/24 History Allergies Allergy/AdvReac Type Severity Reaction Status Date / Time No Known Allergies Allergy Verified 11/07/23 19:49 Vital Signs Vital Signs - 24 hr 05/27/24 02:41 05/27/24 07:07 05/27/24 07:16 Temperature 98.4 F Pulse Rate 78 78 73 Respiratory Rate 16 12 12 Blood Pressure 99/59 L 116/77 115/66 Pulse Oximetry 98 94 93 Oxygen Delivery Room Air 05/27/24 07:31 05/27/24 07:45 05/27/24 08:00 Temperature Pulse Rate 78 81 71 Respiratory Rate 14 13 16 Blood Pressure 115/71 111/74 109/73 Pulse Oximetry 98 98 100 Oxygen Delivery 05/27/24 08:16 05/27/24 08:46 05/27/24 09:31 Temperature Pulse Rate 74 81 72 Respiratory Rate 18 14 15 Blood Pressure 121/77 117/68 129/89 Pulse Oximetry 100 99 100 Oxygen Delivery 05/27/24 10:58 Temperature Pulse Rate Respiratory Rate Blood Pressure Pulse Oximetry Oxygen Delivery Room Air Exam Const: General: comfortable and no acute distress Other: , male, frail, elderly, nontoxic appearance HENMT: Face/Nose/Sinus: Normal nares present Mouth: Yes moist mucous membranes Eyes: General: appearance normal, both eyes and all related structures Sclera: sclerae normal Pupils: Equal, round and reactive pupils present EOM: EOMs intact bilaterally Resp: Effort & Inspection: normal respiratory effort Other: crackles in left lung base. Cardio: Rate: regular rate Other: No murmur, frequent ectopy versus irregular rhythm. GI: Other: Abdomen soft, nondistended, nontender. Normoactive bowel sounds in all quadrants. Skin: General skin exam: normal color and no rashes or lesions noted Wounds: no wounds Neuro: Speech: normal speech Motor exam (neuro): 5/5 motor strength present throughout Sensory Exam: normal sensation Other: A&O x1, +somnolence Extrem: General: normal to inspection Psych: Mental Status: mental status grossly normal Affect: normal affect Other: Poor insight and judgment, pleasant H&P: Results Labs Labs: Short CBC 05/27/24 Range/Units 03:56 WBC 11.6 H (4.5-10.0) K/mm3 Hgb 9.8 L (14.0-18.0) g/dL Hct 30.8 L (42.0-52.0) % Plt Count 150 (150-375) k/mm3 BMP 05/27/24 03:56 Sodium 135 L Potassium 3.6 Chloride 106 Carbon Dioxide 18 L BUN 32 H D Creatinine 2.90 H Glucose 89 Calcium 8.0 L Cardiac Enzymes 05/27/24 05/27/24 Range/Units 03:56 03:56 Troponin I < 0.012 < 0.012 (0.000-0.034) ng/mL Liver Function 05/27/24 Range/Units 03:56 Total Bilirubin 0.6 (0.2-1.3) mg/dL AST 34 (17-59) U/L ALT 38 (6-50) U/L Alkaline Phosphatase 72 (38-126) U/L Albumin 3.1 L (3.5-5.1) g/dL Urine 05/27/24 Range/Units 05:16 Urine Color Yellow (Yellow) Urine Appearance Clear (Clear) Urine pH 5.5 (5.0-9.0) Ur Specific [place] 1.015 (1.001-1.035) Urine Protein 1+ H (Negative) mg/dL Urine Glucose (UA) Negative (Negative) mg/dL Assessment and Plan Assessment and plan (1) Acute hypotension: Code(s): I95.9 - Hypotension, unspecified Status: Acute Assessment and Plan: - patient did not meet SIRS criteria, however is hypotensive with suspected site of infection. Lactic 0.6. Blood cultures and urine culture pending, follow. - IV fluids: 1 L bolus, continue at 100 mL/hour x1 L - suspect UTI as etiology for acute hypotension, treat - holding Entresto, continuing metoprolol given hx of AFib. - monitor hemodynamics - monitor I&Os (2) Acute UTI: Code(s): N39.0 - Urinary tract infection, site not specified Status: Acute Assessment and Plan: - UA: 1+ protein, 1+ blood, 1+ leuks, 3-5 RBC, 6-10 WBC, occasional epithelial cells, yeast present. - UC pending - previous micro reviewed most recent UC grew Klebsiella that was intermediate to Macrobid only on 05/12/2024. Has also grown Enterococcus x2, kidney they a albicans, coag-negative staph - started on Ceftriaxone on 05/27, will add ampicillin IVPB for Enterococcus coverage (3) Anemia: Qualifiers: Anemia type: iron deficiency Iron deficiency anemia type: unspecified iron deficiency Qualified Code(s): D50.9 - Iron deficiency anemia, unspecified Code(s): D64.9 - Anemia, unspecified Status: Chronic Assessment and Plan: - chronic in setting of CKD and MORALES - hemoglobin 9.8, baseline appears to be 9.8-10.6 for the past year - monitor (4) Hypertension: Qualifiers: Hypertension type: primary hypertension Qualified Code(s): I10 - Essential (primary) hypertension Code(s): I10 - Essential (primary) hypertension Status: Chronic Assessment and Plan: - chronic, arrived soft. Hypotensive at home. Will hold 1/2 home medications, resume when appropriate. - home medications: Hold Entresto. Continue metoprolol. - monitor Plan Diet: Heart healthy GI Prophylaxis: Currently indicated DVT Prophylaxis: SCDs Lines: Peripheral Code Status: Full code Quality VTE Prophylaxis VTE prophylaxis: mechanical ordered Hospitalist MIPS Advance Care Plan I have confirmed that the patient's Advanced Care Plan is present, code status is documented, or surrogate decision maker is listed in patient medical record.: Yes Medication Reconciliation I have utilized all available resources to obtain, update and review the patients current medications (includes all prescriptions, OTC, herbals, cannabis, and nutritional supplements).: Yes
[2024-05-27] MEDS: LACTATED RINGERS 1,000 ML 100 ML IV CONT (14:18)
[2024-05-27] MEDS: AMPICILLIN SULB 3 GM/NS 100 ML 3 GM/100 ML VIAL IVPB (15:59)
[2024-05-28] VITALS (14 sets, daily range): BP systolic 108–118; BP diastolic 55–76; PULSE 70–102; RESP 14–20; TEMP 36.3–36.4; O2SAT 90–100
[2024-05-28] MEDS: AMPICILLIN SULB 3 GM/NS 100 ML 3 GM/100 ML VIAL IVPB ×2 (04:56→17:33)
[2024-05-28 06:45] LABS: Basophils Percent Auto 0.5 % (0.2-1.2); Eosinophils Absolute Auto 0.3 K/mm3 (0-0.3); Hemoglobin 9.8 g/dL (14.0-18.0); Immature Granulocyte Absolute 0.04 K/mm3 (0.00-0.031); Immature Granulocyte Percent A 0.5 % (0-0.5); Lymphocytes Absolute Auto 0.87 K/mm3 (0.9-3.2); Lymphocytes Percent Auto 10.4 % (18.3-44.2); Mean Corpuscular HGB Conc 32.7 g/dl (32-36); Mean Corpuscular Hemoglobin 31.9 pg (26-34); Mean Corpuscular Volume 97.7 fl (80-100); Mean Platelet Volume 10.1 fl (7.4-10.4); Monocytes Absolute Auto 0.8 K/mm3 (0.1-0.6); Monocytes Percent Auto 9.6 % (2.6-8.5); Neutrophils Absolute Auto 6.4 K/mm3 (1.3-6.7); Platelet Count Result 162 k/mm3 (150-375); Red Blood Count 3.07 M/mm3 (4.6-6.20); Red Cell Distribution Width 14.8 % (11.5-14.5); White Blood Count 8.4 K/mm3 (4.5-10.0)
[2024-05-28 06:57] LABS: Alanine Aminotransferase 39 U/L (6-50); Albumin Level 2.9 g/dL (3.5-5.1); Alkaline Phosphatase 80 U/L (38-126); Anion Gap 10 mmol/L (4-12); Aspartate Amino Transferase 39 U/L (17-59); Bilirubin,Total 0.4 mg/dL (0.2-1.3); Blood Urea Nitrogen 25 mg/dL (9-20); Calcium 8.2 mg/dL (8.4-10.2); Carbon Dioxide 17 mmol/L (22-30); Chloride 110 mmol/L (98-107); Estimated CRCL calculation 21 ml/min; Estimated Glomerular Filt Rate 26; Glucose 83 mg/dL (65-110); Potassium 3.5 mmol/L (3.4-5.0); Sodium 137 mmol/L (137-145)
[2024-05-28] MEDS: ATORVASTATIN 10 MG TABLET PO (10:23)
[2024-05-28] MEDS: allopurinoL 100 MG TABLET PO (10:23)
[2024-05-28] MEDS: cilostazoL 100 MG TABLET PO (10:23)
[2024-05-28] MEDS: METOPROLOL TARTRATE 50 MG TAB 150 MG PO ×2 (10:24→21:07)
[2024-05-28] MEDS: ESCITALOPRAM OXALATE 10 MG TABLET 20 MG PO (10:24)
[2024-05-28] MEDS: FUROSEMIDE 40 MG TABLET PO (10:29)
[2024-05-28] MEDS: MULTIVITAMINS /C LUTEIN (CENTRUM SILVER) TABLET *BKC 1 TAB PO (10:29)
[2024-05-28] MEDS: ASPIRIN 81 MG CHEWABLE TABLET PO (10:30)
--- NOTE | 2024-05-28 11:37 | P.PNIM_ITS ---
Progress Note: A&P Assessment and Plan (1) Acute hypotension: Code(s): I95.9 - Hypotension, unspecified Status: Acute Assessment and Plan: - patient did not meet SIRS criteria, however is hypotensive with suspected site of infection. Lactic 0.6. Blood cultures and urine culture pending, follow. - IV fluids: 1 L bolus, continue at 100 mL/hour x1 L - suspect UTI as etiology for acute hypotension, treat - holding Entresto, continuing metoprolol given hx of AFib. - monitor hemodynamics - monitor I&Os 05/28/24: * Resolved. Stable BP at 116/60 today. * Continue to monitor and continue to hold Entresto. (2) Acute UTI: Code(s): N39.0 - Urinary tract infection, site not specified Status: Acute Assessment and Plan: - UA: 1+ protein, 1+ blood, 1+ leuks, 3-5 RBC, 6-10 WBC, occasional epithelial cells, yeast present. - UC pending - previous micro reviewed most recent UC grew Klebsiella that was intermediate to Macrobid only on 05/12/2024. Has also grown Enterococcus x2, kidney they a albicans, coag-negative staph - started on Ceftriaxone on 05/27, will add ampicillin IVPB for Enterococcus coverage 05/28/24: * Continue Unasyn for abx coverage. * Urine culture is pending. * Preliminary blood cultures are negative. (3) Anemia: Qualifiers: Anemia type: iron deficiency Iron deficiency anemia type: unspecified iron deficiency Qualified Code(s): D50.9 - Iron deficiency anemia, unspecified Code(s): D64.9 - Anemia, unspecified Status: Chronic Assessment and Plan: - chronic in setting of CKD and MORALES - hemoglobin 9.8, baseline appears to be 9.8-10.6 for the past year - monitor 05/28/24: * Chronic in nature. (4) Hypertension: Qualifiers: Hypertension type: primary hypertension Qualified Code(s): I10 - Essential (primary) hypertension Code(s): I10 - Essential (primary) hypertension Status: Chronic Assessment and Plan: - chronic, arrived soft. Hypotensive at home. Will hold 1/2 home medications, resume when appropriate. - home medications: Hold Entresto. Continue metoprolol. - monitor 05/28/24: * Not currently exacerbated. * Continue Beta jackelyn and continue to hold Entresto and monitor. Add Entresto back as needed. Plan Diet: Heart healthy GI Prophylaxis: Currently indicated DVT Prophylaxis: SCDs Lines: Peripheral Code Status: Full code Subjective Date/time seen: 05/28/24 0910 Interval history: This pleasantly confused pt is examined at the bedside today in interval assessment. He is alert and oriented to self only and is not a reliable source of information. He does not appear to be in any acute distress. Pt has a neurogenic bladder and reportedly straight catheterizes himself at home. He was recently discharged from the hospital with instructions to continue his straight catheterization, and is now readmitted with repeat UTI and it is noted that he was hypotensive upon presentation. Pt had a bladder scan this AM and I was notified by the RN that he had >1300 in the bladder. Catheter order was placed for accurate I&O. Review of Systems Review of Systems: ROS unobtainable: Yes unobtainable due to mental status (dementia) Exam Const: General: comfortable and no acute distress HENMT: Face/Nose/Sinus: Normal nares present Mouth: Yes moist mucous membranes Eyes: General: appearance normal, both eyes and all related structures Neck: Neck: supple and no JVD Resp: Effort & Inspection: normal respiratory effort Auscultation: diminished lung sounds Cardio: Rate: regular rate Rhythm: regular rhythm GI: Inspection: non-distended GI Palp: Yes Soft to palpation and No Tenderness to palpation present (GI) Auscultation: normal bowel sounds Skin: General skin exam: normal color, no rashes or lesions noted and no erythema Lesions: no lesions noted Rashes: no rashes noted Wounds: no wounds Neuro: Speech: normal speech Motor exam (neuro): Normal motor muscle tone present throughout Sensory Exam: normal sensation Extrem: General: normal to inspection, no edema and no pedal edema Psych: Mental Status: mental status grossly normal Objective Data Vital Signs Vital Signs: Vital Signs - 24 hr 05/27/24 14:00 05/27/24 12:00 05/27/24 17:55 Temperature 97.4 F L Pulse Rate 80 84 79 Respiratory Rate 18 Blood Pressure 102/57 L Pulse Oximetry 100 Oxygen Delivery 05/27/24 20:00 05/27/24 22:00 05/27/24 20:50 Temperature 98.7 F Pulse Rate 91 90 90 Respiratory Rate 18 18 Blood Pressure 102/59 L Pulse Oximetry 97 97 Oxygen Delivery Room Air 05/28/24 00:00 05/28/24 04:00 05/28/24 06:00 Temperature 97.6 F Pulse Rate 88 85 93 Respiratory Rate 20 Blood Pressure 116/76 Pulse Oximetry 100 Oxygen Delivery 05/28/24 10:24 05/28/24 10:31 Temperature Pulse Rate 85 85 Respiratory Rate 16 Blood Pressure 116/60 Pulse Oximetry 93 Oxygen Delivery Intake/Output Intake/Output: Intake & Output 05/25/24 05/26/24 05/27/24 05/28/24 23:59 23:59 23:59 23:59 Intake Total 1630 340 Output Total 375 2400 Balance 1255 -2060 Meds/Results Medications: Active Medications Generic Name Dose Route Start Last Admin Trade Name Freq PRN Reason Stop Dose Admin Acetaminophen 650 mg 05/27/24 12:11 Acetaminophen 325 Mg Tablet PO Q4H PRN Mild Pain (1-3) or Fever Hydrocodone Bitart/Acetaminophen 1 tab 05/27/24 12:11 Hydrocodone/Acetaminophen (*Crx) 5-325 Mg Tablet PO Q6H PRN Pain Rated 4-6 Allopurinol 100 mg 05/28/24 09:00 05/28/24 10:23 Allopurinol 100 Mg Tablet PO 100 mg DAILY SUZAN Administration Aspirin 81 mg 05/28/24 08:00 05/28/24 10:30 Aspirin 81 Mg Chewable Tablet PO 81 mg DAILY@0800 SUZAN Administration Atorvastatin Calcium 10 mg 05/28/24 09:00 05/28/24 10:23 Atorvastatin 10 Mg Tablet PO 10 mg DAILY SUZAN Administration Cilostazol 100 mg 05/28/24 09:00 05/28/24 10:23 Cilostazol 100 Mg Tablet PO 100 mg DAILY SUZAN Administration Escitalopram Oxalate 20 mg 05/28/24 09:00 05/28/24 10:24 Escitalopram Oxalate 10 Mg Tablet PO 20 mg DAILY SUZAN Administration Fluticasone Propionate 1 spray 05/28/24 09:00 Fluticasone Propionate 0.05% Na Spr 16 Gm Btl (*Bkc) NASAL DAILY SUZAN Furosemide 40 mg 05/28/24 09:00 05/28/24 10:29 Furosemide 40 Mg Tablet PO 40 mg DAILY SUZAN Administration Ampicillin Sodium/Sulbactam Sodium 3 gm in 100 mls @ 200 mls/hr 05/27/24 15:45 05/28/24 05:26 Unasyn 3 Gm/Ns 100 Ml IVPB Infused Q12HR@0400,1600 SUZAN Infusion Metoprolol Tartrate 150 mg 05/27/24 21:00 05/28/24 10:24 Metoprolol Tartrate 50 Mg Tab PO 150 mg Q12HR SUZAN Administration Multivitamins/Minerals 1 tab 05/28/24 09:00 05/28/24 10:29 Multivitamins /C Lutein (Centrum Silver) Tablet *Bkc PO 1 tab DAILY SUZAN Administration Radiology Results: ITS Impressions Chest X-Ray 05/27/24 05:57 Impression: Small right pleural effusion. Labs Labs: Laboratory Results - last 24 hr 05/28/24 06:01 WBC 8.4 RBC 3.07 L Hgb 9.8 L Hct 30.0 L MCV 97.7 MCH 31.9 MCHC 32.7 RDW 14.8 H Plt Count 162 MPV 10.1 Immature Gran % (Auto) 0.5 Neut % (Auto) 76.0 H Lymph % (Auto) 10.4 L [place] % (Auto) 9.6 H Eos % (Auto) 3.0 Baso % (Auto) 0.5 Lymph # (Auto) 0.87 L [place] # (Auto) 0.8 H Eos # (Auto) 0.3 Baso # (Auto) 0.0 Abs Immat Gran (auto) 0.04 H Absolute Neuts (auto) 6.4 Absolute Nucleated RBC 0.000 Nucleated RBC % 0.0 Sodium 137 Potassium 3.5 Chloride 110 H Carbon Dioxide 17 L Anion Gap 10 BUN 25 H Creatinine 2.40 H Estim Creat Clear Calc 21 Estimated GFR 26 L Glucose 83 Calcium 8.2 L Total Bilirubin 0.4 AST 39 ALT 39 Alkaline Phosphatase 80 Total Protein 6.0 L Albumin 2.9 L Quality VTE Prophylaxis VTE prophylaxis: mechanical ordered
[2024-05-28] MEDS: FLUTICASONE PROPIONATE 0.05% NA SPR 16 GM BTL (*BKC) 1 SPRAY NASAL (15:06)
[2024-05-28] MEDS: LOPERAMIDE HCL 2 MG CAPSULE PO (18:10)
[2024-05-29] VITALS (13 sets, daily range): BP systolic 96–111; BP diastolic 45–63; PULSE 61–90; RESP 16–20; TEMP 36.6–36.7; O2SAT 96–100
[2024-05-29] MEDS: AMPICILLIN SULB 3 GM/NS 100 ML 3 GM/100 ML VIAL IVPB ×2 (04:53→17:14)
[2024-05-29 04:57] LABS: Basophils Absolute Auto 0.1 K/mm3 (0.0-0.1); Basophils Percent Auto 0.6 % (0.2-1.2); Eosinophils Absolute Auto 0.3 K/mm3 (0-0.3); Eosinophils Percent Auto 3.3 % (0-4.4); Hematocrit 29.2 % (42.0-52.0); Hemoglobin 9.2 g/dL (14.0-18.0); Immature Granulocyte Absolute 0.04 K/mm3 (0.00-0.031); Immature Granulocyte Percent A 0.5 % (0-0.5); Lymphocytes Absolute Auto 0.92 K/mm3 (0.9-3.2); Lymphocytes Percent Auto 11.4 % (18.3-44.2); Mean Corpuscular HGB Conc 31.5 g/dl (32-36); Mean Corpuscular Hemoglobin 31.1 pg (26-34); Mean Corpuscular Volume 98.6 fl (80-100); Mean Platelet Volume 9.9 fl (7.4-10.4); Monocytes Absolute Auto 0.8 K/mm3 (0.1-0.6); Monocytes Percent Auto 9.7 % (2.6-8.5); Neutrophils Percent Auto 74.5 % (45.5-73.1); Platelet Count Result 181 k/mm3 (150-375); Red Blood Count 2.96 M/mm3 (4.6-6.20); White Blood Count 8.1 K/mm3 (4.5-10.0)
[2024-05-29 05:03] LABS: Alanine Aminotransferase 54 U/L (6-50); Albumin Level 2.9 g/dL (3.5-5.1); Alkaline Phosphatase 79 U/L (38-126); Anion Gap 11 mmol/L (4-12); Aspartate Amino Transferase 52 U/L (17-59); Bilirubin,Total 0.5 mg/dL (0.2-1.3); Blood Urea Nitrogen 23 mg/dL (9-20); Calcium 8.2 mg/dL (8.4-10.2); Carbon Dioxide 19 mmol/L (22-30); Chloride 107 mmol/L (98-107); Estimated CRCL calculation 21 ml/min; Estimated Glomerular Filt Rate 26; Glucose 85 mg/dL (65-110); Potassium 3.5 mmol/L (3.4-5.0); Sodium 137 mmol/L (137-145)
--- NOTE | 2024-05-29 08:25 | P.PNIM_ITS ---
Progress Note: A&P Assessment and Plan (1) Acute hypotension: Code(s): I95.9 - Hypotension, unspecified Status: Acute Assessment and Plan: - patient did not meet SIRS criteria, however is hypotensive with suspected site of infection. Lactic 0.6. Blood cultures and urine culture pending, follow. - IV fluids: 1 L bolus, continue at 100 mL/hour x1 L - suspect UTI as etiology for acute hypotension, treat - holding Entresto, continuing metoprolol given hx of AFib. - monitor hemodynamics - monitor I&Os 05/28/24: * Resolved. Stable BP at 116/60 today. * Continue to monitor and continue to hold Entresto. 05/29- stable- will hold entresto for another night to ensure BP stable and restart in am (2) Acute UTI: Code(s): N39.0 - Urinary tract infection, site not specified Status: Acute Assessment and Plan: - UA: 1+ protein, 1+ blood, 1+ leuks, 3-5 RBC, 6-10 WBC, occasional epithelial cells, yeast present. - UC pending - previous micro reviewed most recent UC grew Klebsiella that was intermediate to Macrobid only on 05/12/2024. Has also grown Enterococcus x2, kidney they a albicans, coag-negative staph - started on Ceftriaxone on 05/27, will add ampicillin IVPB for Enterococcus coverage 05/28/24: * Continue Unasyn for abx coverage. * Urine culture is pending. * Preliminary blood cultures are negative. 05/29- so far growing Colleen tropicalis- yeast- will not treat for it as of right now since he is improving clinically will consult urology per family request (3) Anemia: Qualifiers: Anemia type: iron deficiency Iron deficiency anemia type: unspecified iron deficiency Qualified Code(s): D50.9 - Iron deficiency anemia, unspecified Code(s): D64.9 - Anemia, unspecified Status: Chronic Assessment and Plan: - chronic in setting of CKD and MORALES - hemoglobin 9.8, baseline appears to be 9.8-10.6 for the past year - monitor (4) Hypertension: Qualifiers: Hypertension type: primary hypertension Qualified Code(s): I10 - Essential (primary) hypertension Code(s): I10 - Essential (primary) hypertension Status: Chronic Assessment and Plan: - chronic, arrived soft. Hypotensive at home. Will hold 1/2 home medications, resume when appropriate. - home medications: Hold Entresto. Continue metoprolol. - monitor 05/28/24: * Not currently exacerbated. * Continue Beta jackelyn and continue to hold Entresto and monitor. Add Entresto back as needed. Plan Diet: Heart healthy GI Prophylaxis: Currently indicated DVT Prophylaxis: SCDs Lines: Peripheral Code Status: Full code Time Spent With Patient Time with patient: Greater than 35 minutes Subjective Date/time seen: 05/29/24 08:25 Interval history: Narrative retrieved from H/P: 79 y/o M presents here with hypotension with PMH of BPH, chronic anemia in the setting of CKD and iron deficiency, CKD stage 3, CAD, Crohn's, depression, gout, HLD, HTN, peripheral vascular disease, seizures, and vascular dementia. The patient presents here from home for further evaluation of low blood pressure. The patient's has been monitoring his blood pressure and reports it has been downtrending over the past 3-4 days. Lowest BP noted at home was 70/50 3 days ago. Hypotension is accompanied by fever (100F), chills, generalized weakness, shaky , and fatigue. Patient had recent admission at [facility] from 05/13-05/18 for altered mental status and weakness, was diagnosed with a UTI (UC grew out Klebsiella) and an PREMA superimposed on CKD. Patient at risk for UTIs due to self catheterization at home for urinary retention, has been doing this for the past 2 years. Patient has hx of dementia - at baseline is orientated to self and typically place, may not know year/home address/short term and is able to recognize family. concerned UTI from the end of last month may not have resolved, after he was discharged he only had one good day and has remained weak/shaky. Initial VS at presentation: 98.4? F, HR 70, RR 16, 99/59, and 98% on RA ED workup showed: WBC 11.6, hemoglobin 9.8 (previously 10.3 on 05/18/2024, near baseline), INR 1.7, creatinine 2.9 and GFR 21 (previously 2.4 and GFR 26 on 05/18/2024), lactic 0.6, BNP 4930, lipase 398, and initial troponin negative 05/29- assuming care. Pt is pleasantly confused, calm and cooperative. He is alert and oriented to self only and is not a reliable source of information. He does not appear to be in any acute distress. He was recently discharged from the hospital with UTI nd rx for Augmentin and instructions to continue his straight catheterization, and is now readmitted with repeat UTI. He has a Babin cath. His at the bedside, very concerned about frequents UTIs and wants to discuss ith urology oupt treatment for his enlarged prostate. Review of Systems Review of Systems: All systems reviewed & are unremarkable except as noted in HPI and below Constitutional: Constitutional: Denies chills Eyes: Eyes: Denies blurry vision Cardiovascular: Cardiovascular: Denies chest pain Respiratory: Respiratory: Denies chest congestion and Denies cough Gastrointestinal: Gastrointestinal: Denies abdominal pain Genitourinary: Genitourinary: Reports urinary frequency and Reports urinary hesitancy Musculoskeletal: Musculoskeletal: Reports myalgias and Reports stiffness Comments: generalized weakness Exam Narrative: alert, oriented, in no distress Const: General: comfortable and no acute distress Other: , male, frail, elderly, nontoxic appearance HENMT: Face/Nose/Sinus: Normal nares present Mouth: Yes moist mucous membranes Eyes: General: appearance normal, both eyes and all related structures Sclera: sclerae normal Pupils: Equal, round and reactive pupils present EOM: EOMs intact bilaterally Neck: Neck: supple and no JVD Resp: Effort & Inspection: normal respiratory effort Auscultation: diminished lung sounds Other: crackles in left lung base. Cardio: Rate: regular rate Rhythm: regular rhythm Other: No murmur, frequent ectopy versus irregular rhythm. GI: Inspection: non-distended Auscultation: normal bowel sounds Other: Abdomen soft, nondistended, nontender. Normoactive bowel sounds in all quadrants. Skin: General skin exam: normal color, no rashes or lesions noted, no erythema, No lesion and No rashes Lesions: no lesions noted Rashes: no rashes noted Wounds: no wounds Neuro: Cranial nerves: Yes Equal, round and reactive pupils present Speech: normal speech Motor exam (neuro): 5/5 motor strength present throughout and Normal motor muscle tone present throughout Sensory Exam: normal sensation Other: A&O x1, +somnolence Extrem: General: normal to inspection, no edema and no pedal edema Psych: Mental Status: mental status grossly normal Affect: normal affect Other: Poor insight and judgment, pleasant Objective Data Vital Signs Vital Signs: Vital Signs - 24 hr 05/28/24 10:24 05/28/24 10:31 05/28/24 12:00 Temperature Pulse Rate 85 85 102 H Respiratory Rate 16 Blood Pressure 116/60 Pulse Oximetry 93 Oxygen Delivery Oxygen Flow Rate 05/28/24 10:30 05/28/24 14:00 05/28/24 16:00 Temperature Pulse Rate 70 86 Respiratory Rate 14 Blood Pressure 108/55 L Pulse Oximetry 96 Oxygen Delivery Room Air Oxygen Flow Rate 05/28/24 21:07 05/28/24 21:00 05/28/24 21:51 Temperature 97.3 F L Pulse Rate 89 90 Respiratory Rate 16 Blood Pressure 118/75 Pulse Oximetry 90 93 Oxygen Delivery Nasal Cannula Oxygen Flow Rate 2 05/28/24 20:00 05/29/24 00:04 05/29/24 04:00 Temperature Pulse Rate 90 75 75 Respiratory Rate Blood Pressure Pulse Oximetry Oxygen Delivery Oxygen Flow Rate 05/28/24 21:30 05/29/24 06:00 05/29/24 07:53 Temperature 97.8 F Pulse Rate 83 Respiratory Rate 18 Blood Pressure 101/45 L Pulse Oximetry 93 96 98 Oxygen Delivery Nasal Cannula Room Air Oxygen Flow Rate 2 Intake/Output Intake/Output: Intake & Output 05/26/24 05/27/24 05/28/24 05/29/24 23:59 23:59 23:59 23:59 Intake Total 1630 3920 500 Output Total 375 4900 1800 Balance 8514 -966 -9777 Meds/Results Medications: Active Medications Generic Name Dose Route Start Last Admin Trade Name Freq PRN Reason Stop Dose Admin Acetaminophen 650 mg 05/27/24 12:11 Acetaminophen 325 Mg Tablet PO Q4H PRN Mild Pain (1-3) or Fever Hydrocodone Bitart/Acetaminophen 1 tab 05/27/24 12:11 Hydrocodone/Acetaminophen (*Crx) 5-325 Mg Tablet PO Q6H PRN Pain Rated 4-6 Allopurinol 100 mg 05/28/24 09:00 05/28/24 10:23 Allopurinol 100 Mg Tablet PO 100 mg DAILY SUZAN Administration Aspirin 81 mg 05/28/24 08:00 05/28/24 10:30 Aspirin 81 Mg Chewable Tablet PO 81 mg DAILY@0800 SUZAN Administration Atorvastatin Calcium 10 mg 05/28/24 09:00 05/28/24 10:23 Atorvastatin 10 Mg Tablet PO 10 mg DAILY SUZAN Administration Cilostazol 100 mg 05/28/24 09:00 05/28/24 10:23 Cilostazol 100 Mg Tablet PO 100 mg DAILY SUZAN Administration Escitalopram Oxalate 20 mg 05/28/24 09:00 05/28/24 10:24 Escitalopram Oxalate 10 Mg Tablet PO 20 mg DAILY SUZAN Administration Fluticasone Propionate 1 spray 05/28/24 09:00 05/28/24 15:06 Fluticasone Propionate 0.05% Na Spr 16 Gm Btl (*Bkc) NASAL 1 spray DAILY SUZAN Administration Furosemide 40 mg 05/28/24 09:00 05/28/24 10:29 Furosemide 40 Mg Tablet PO 40 mg DAILY SUZAN Administration Ampicillin Sodium/Sulbactam Sodium 3 gm in 100 mls @ 200 mls/hr 05/27/24 15:45 05/29/24 05:23 Unasyn 3 Gm/Ns 100 Ml IVPB Infused Q12HR@0400,1600 SUZAN Infusion Loperamide HCl 2 mg 05/28/24 18:03 05/28/24 18:10 Loperamide Hcl 2 Mg Capsule PO 2 mg PRN PRN Administration Diarrhea Metoprolol Tartrate 150 mg 05/27/24 21:00 05/28/24 21:07 Metoprolol Tartrate 50 Mg Tab PO 150 mg Q12HR SUZAN Administration Multivitamins/Minerals 1 tab 05/28/24 09:00 05/28/24 10:29 Multivitamins /C Lutein (Centrum Silver) Tablet *Bkc PO 1 tab DAILY SUZAN Administration Radiology Results: ITS Impressions Chest X-Ray 05/27/24 05:57 Impression: Small right pleural effusion. Labs Labs: Laboratory Results - last 24 hr 05/29/24 04:16 WBC 8.1 RBC 2.96 L Hgb 9.2 L Hct 29.2 L MCV 98.6 MCH 31.1 MCHC 31.5 L RDW 15.0 H Plt Count 181 MPV 9.9 Immature Gran % (Auto) 0.5 Neut % (Auto) 74.5 H Lymph % (Auto) 11.4 L [place] % (Auto) 9.7 H Eos % (Auto) 3.3 Baso % (Auto) 0.6 Lymph # (Auto) 0.92 [place] # (Auto) 0.8 H Eos # (Auto) 0.3 Baso # (Auto) 0.1 Abs Immat Gran (auto) 0.04 H Absolute Neuts (auto) 6.0 Absolute Nucleated RBC 0.000 Nucleated RBC % 0.0 Sodium 137 Potassium 3.5 Chloride 107 Carbon Dioxide 19 L Anion Gap 11 BUN 23 H Creatinine 2.40 H Estim Creat Clear Calc 21 Estimated GFR 26 L Glucose 85 Calcium 8.2 L Total Bilirubin 0.5 AST 52 ALT 54 H Alkaline Phosphatase 79 Total Protein 6.0 L Albumin 2.9 L Quality VTE Prophylaxis VTE prophylaxis: mechanical ordered
[2024-05-29] MEDS: METOPROLOL TARTRATE 50 MG TAB 150 MG PO ×2 (08:52→21:13)
[2024-05-29] MEDS: ASPIRIN 81 MG CHEWABLE TABLET PO (08:52)
[2024-05-29] MEDS: allopurinoL 100 MG TABLET PO (08:53)
[2024-05-29] MEDS: FUROSEMIDE 40 MG TABLET PO (08:53)
[2024-05-29] MEDS: cilostazoL 100 MG TABLET PO (08:53)
[2024-05-29] MEDS: ESCITALOPRAM OXALATE 10 MG TABLET 20 MG PO (08:53)
[2024-05-29] MEDS: ATORVASTATIN 10 MG TABLET PO (08:53)
[2024-05-29] MEDS: MULTIVITAMINS /C LUTEIN (CENTRUM SILVER) TABLET *BKC 1 TAB PO (08:53)
[2024-05-29] MEDS: FLUTICASONE PROPIONATE 0.05% NA SPR 16 GM BTL (*BKC) 1 SPRAY NASAL (08:55)
[2024-05-29] MEDS: LOPERAMIDE HCL 2 MG CAPSULE PO (13:13)
--- NOTE | 2024-05-29 22:43 | P.CONUR_ITS ---
Assessment and Plan Assessment and plan (1) Acute UTI: Code(s): N39.0 - Urinary tract infection, site not specified Status: Acute (2) Acute kidney injury superimposed on CKD: Code(s): N17.9 - Acute kidney failure, unspecified; N18.9 - Chronic kidney disease, unspecified Status: Acute Assessment and Plan: * Recurrent urinary tract infections which, given patient's history of a markedly hypotonic bladder, is likely due to incomplete bladder emptying. * Will plan a voiding trial prior to discharge with careful monitoring of postvoid residual volumes. If residual volumes are high he may need repeat urodynamics and encouragement to resume intermittent self catheterization Urology Consult Note HPI Date Seen: 05/29/24 Requesting Physician: SHERIE Leyva Primary Care Provider: Anayeli Lee, MD Consult Narrative Narrative: Vitaly Oreilly is a 79 year old male Who has been known to our practice in the past but not been seen for approximately a year. In the past he is known to have a hypotonic / atonic bladder that has required intermittent self c atheterization for a long period of time. Apparently he has quit doing that and feels as if he has been voiding spontaneously. He is admitted with urinary tract infection and were asked to see him because apparently this is been a recurring problem. Patient isn't able to give much of a reliable history at this point. He was apparently brought to emergency department because his knows noticing some progressively lower blood pressures. He denies a history of recent hematuria. He currently has an indwelling catheter but I can not determine the volume obtained with catheterization. Renal ultrasound shows mild renal atrophy without hydronephrosis Review of Systems Review of Systems: ROS unobtainable: Yes unobtainable due to mental status [facility] Past Medical History Medical History (Updated 05/27/24 @ 12:15 by Lucia Escobedo APRN) Abdominal pain Atrial fibrillation with RVR B12 deficiency Benign prostatic hyperplasia Cardiomyopathy Chronic anemia Chronic kidney disease, stage 3 Coronary artery disease Crohn's disease Depression Gout Heart failure Hyperlipidemia Hypertension Iron deficiency anemia Kidney stones Osteoarthritis Peripheral vascular disease Recurrent incisional hernia Seizures Vascular dementia Surgical History Surgical History (Updated 05/27/24 @ 12:09 by Lucia Escobedo APRN) History of bilateral cataract extraction History of cholecystectomy History of coronary artery bypass graft History of lithotripsy History of partial colectomy X2 for to bowel obstructions and fistula secondary to Crohn's disease. History of vascular surgery Bilateral lower extremity stents. S/P CABG (coronary artery bypass graft) Family History Family History Father Myocardial infarct Cerebrovascular accident Mother Breast cancer Sibling Crohn's disease Social History Social History Social History: Surrogate decision maker: Sarah Oreilly, spouse. Code status: Do not resuscitate. Smoking packs per day: 2 Smoking cigarettes per day: 40.0 Years smoked: 25 Smoking pack-years: 50.00 Smoking status: Former smoker Second hand tobacco smoke exposure: No Alcohol intake: never Substance use: never Substance use type: does not use Do You Feel Safe in your Home?: Yes Lack of Transportation: No Lack of Food: Never True Current Housing: I Have Housing Concerned About Future Housing: No Difficulty Paying Gas/Electric Bills: No Difficulty Paying for Meds: No Currently Unemployed: No Education: Don't Know Difficulty w/ Childcare or Family Care: No Additional living arrangements comments: The patient lives with his in [place]. Additional occupation/education comments: Retired from [employer]. Spiritual care concerns: No Meds Home Medications and Allergies Home Medications Medication Instructions Recorded Confirmed Type Lactobacillus 1 cap PO DAILY 11/08/23 05/27/24 History acidophilus-Bifidobac.animalis 2.5 billion cell capsule (Daily Probiotic) allopurinol 100 mg tablet 100 mg PO DAILY 11/08/23 05/27/24 History aspirin 81 mg tablet 81 mg PO DAILY 11/08/23 05/27/24 History atorvastatin 10 mg tablet 10 mg PO DAILY 11/08/23 05/27/24 History cilostazol 100 mg tablet 100 mg PO DAILY 11/08/23 05/27/24 History coenzyme Q10 200 mg capsule (Co 200 mg PO DAILY 11/08/23 05/27/24 History Q-10) escitalopram oxalate 20 mg tablet 20 mg PO DAILY 11/08/23 05/27/24 History multivit with minerals-iron 18 1 tablet PO DAILY 11/08/23 05/27/24 History mg-folic ac 400 mcg-vit K 25 mcg tablet (Adults Multivitamin) metoprolol tartrate 50 mg tablet 150 mg PO Q12HR #180 tabs 11/11/23 05/27/24 Rx sacubitril 24 mg-valsartan 26 mg 1 tablet PO Q12HR #60 tabs 11/11/23 05/27/24 Rx tablet (Entresto) Folcaps [place]-3 1 cap PO BID 05/12/24 05/27/24 History fluticasone propionate 50 1 spray intranasal DAILY 05/12/24 05/27/24 History mcg/actuation nasal spray,suspension furosemide 40 mg tablet 40 mg PO DAILY 05/12/24 05/27/24 History Allergies Allergy/AdvReac Type Severity Reaction Status Date / Time No Known Allergies Allergy Verified 11/07/23 19:49 Vital Signs Vital Signs - 24 hr 05/29/24 00:04 05/29/24 04:00 05/29/24 06:00 Temperature 97.8 F Pulse Rate 75 75 83 Respiratory Rate 18 Blood Pressure 101/45 L Pulse Oximetry 96 Oxygen Delivery 05/29/24 07:53 05/29/24 08:51 05/29/24 08:52 Temperature Pulse Rate 90 90 Respiratory Rate 16 Blood Pressure 111/60 Pulse Oximetry 98 100 Oxygen Delivery Room Air 05/29/24 14:00 05/29/24 08:00 05/29/24 12:00 Temperature 98.1 F Pulse Rate 76 72 78 Respiratory Rate 20 Blood Pressure 96/63 L Pulse Oximetry 100 Oxygen Delivery 05/29/24 08:50 05/29/24 16:00 05/29/24 21:13 Temperature Pulse Rate 76 76 Respiratory Rate Blood Pressure Pulse Oximetry Oxygen Delivery Room Air 05/29/24 21:32 Temperature 97.9 F Pulse Rate 61 Respiratory Rate 18 Blood Pressure 106/55 L Pulse Oximetry 96 Oxygen Delivery Exam Const: General: no acute distress Resp: Effort & Inspection: normal respiratory effort GI: Inspection: non-distended GI Palp: No abdominal tenderness and No Gu arding due to palpation present (GI) Auscultation: normal bowel sounds Urinary Catheter: Urinary Catheter: patent and draining and urine clear Results Labs 05/29/24 04:16 05/29/24 04:16 Labs: Short CBC 05/29/24 Range/Units 04:16 WBC 8.1 (4.5-10.0) K/mm3 Hgb 9.2 L (14.0-18.0) g/dL Hct 29.2 L (42.0-52.0) % Plt Count 181 (150-375) k/mm3 BMP 05/29/24 04:16 Sodium 137 Potassium 3.5 Chloride 107 Carbon Dioxide 19 L BUN 23 H Creatinine 2.40 H Glucose 85 Calcium 8.2 L Liver Function 05/29/24 Range/Units 04:16 Total Bilirubin 0.5 (0.2-1.3) mg/dL AST 52 (17-59) U/L ALT 54 H (6-50) U/L Alkaline Phosphatase 79 (38-126) U/L Albumin 2.9 L (3.5-5.1) g/dL
[2024-05-30] VITALS (12 sets, daily range): BP systolic 98–117; BP diastolic 54–63; PULSE 76–84; RESP 16–20; TEMP 36.3–36.9; O2SAT 90–100
[2024-05-30] MEDS: AMPICILLIN SULB 3 GM/NS 100 ML 3 GM/100 ML VIAL IVPB ×2 (03:38→16:53)
--- NOTE | 2024-05-30 08:12 | P.PNIM_ITS ---
Progress Note: A&P Assessment and Plan (1) Acute hypotension: Code(s): I95.9 - Hypotension, unspecified Status: Acute Assessment and Plan: - patient did not meet SIRS criteria, however is hypotensive with suspected site of infection. Lactic 0.6. Blood cultures and urine culture pending, follow. - IV fluids: 1 L bolus, continue at 100 mL/hour x1 L - suspect UTI as etiology for acute hypotension, treat - holding Entresto, continuing metoprolol given hx of AFib. - monitor hemodynamics - monitor I&Os 05/28/24: * Resolved. Stable BP at 116/60 today. * Continue to monitor and continue to hold Entresto. 05/29- stable- will hold entresto for another night to ensure BP stable and restart in am (2) Acute UTI: Code(s): N39.0 - Urinary tract infection, site not specified Status: Acute Assessment and Plan: - UA: 1+ protein, 1+ blood, 1+ leuks, 3-5 RBC, 6-10 WBC, occasional epithelial cells, yeast present. - UC pending - previous micro reviewed most recent UC grew Klebsiella that was intermediate to Macrobid only on 05/12/2024. Has also grown Enterococcus x2, kidney they a albicans, coag-negative staph - started on Ceftriaxone on 05/27, will add ampicillin IVPB for Enterococcus coverage 05/28/24: * Continue Unasyn for abx coverage. * Urine culture is pending. * Preliminary blood cultures are negative. 05/29- so far growing Colleen tropicalis- yeast- will not treat for it as of right now since he is improving clinically will consult urology per family request 05/30- was seen per urology yesterday, notes reviewed: * Recurrent urinary tract infections which, given patient's history of a markedly hypotonic bladder, is likely due to incomplete bladder emptying. * Will plan a voiding trial prior to discharge with careful monitoring of postvoid residual volumes. If residual volumes are high he may need repeat urodynamics and encouragement to resume intermittent self catheterization (3) Anemia: Qualifiers: Anemia type: iron deficiency Iron deficiency anemia type: unspecified iron deficiency Qualified Code(s): D50.9 - Iron deficiency anemia, unspecified Code(s): D64.9 - Anemia, unspecified Status: Chronic Assessment and Plan: - chronic in setting of CKD and MORALES - hemoglobin 9.8, baseline appears to be 9.8-10.6 for the past year - monitor (4) Hypertension: Qualifiers: Hypertension type: primary hypertension Qualified Code(s): I10 - Essential (primary) hypertension Code(s): I10 - Essential (primary) hypertension Status: Chronic Assessment and Plan: - chronic, arrived soft. Hypotensive at home. Will hold 1/2 home medications, resume when appropriate. - home medications: Hold Entresto. Continue metoprolol. - monitor * Not currently exacerbated. * Continue Beta jackelyn and continue to hold Entresto and monitor. Add Entresto back as needed. Plan Diet: Heart healthy GI Prophylaxis: Currently indicated DVT Prophylaxis: SCDs Lines: Peripheral Code Status: Full code Time Spent With Patient Time with patient: Greater than 35 minutes Subjective Date/time seen: 05/30/24 08:12 Interval history: Narrative retrieved from H/P: 79 y/o M presents here with hypotension with PMH of BPH, chronic anemia in the setting of CKD and iron deficiency, CKD stage 3, CAD, Crohn's, depression, gout, HLD, HTN, peripheral vascular disease, seizures, and vascular dementia. The patient presents here from home for further evaluation of low blood pressure. The patient's has been monitoring his blood pressure and reports it has been downtrending over the past 3-4 days. Lowest BP noted at home was 70/50 3 days ago. Hypotension is accompanied by fever (100F), chills, generalized weakness, shaky , and fatigue. Patient had recent admission at [facility] from 05/13-05/18 for altered mental status and weakness, was diagnosed with a UTI (UC grew out Klebsiella) and an PREMA superimposed on CKD. Patient at risk for UTIs due to self catheterization at home for urinary retention, has been doing this for the past 2 years. Patient has hx of dementia - at baseline is orientated to self and typically place, may not know year/home address/short term and is able to recognize family. concerned UTI from the end of last month may not have resolved, after he was discharged he only had one good day and has remained weak/shaky. Initial VS at presentation: 98.4? F, HR 70, RR 16, 99/59, and 98% on RA ED workup showed: WBC 11.6, hemoglobin 9.8 (previously 10.3 on 05/18/2024, near baseline), INR 1.7, creatinine 2.9 and GFR 21 (previously 2.4 and GFR 26 on 05/18/2024), lactic 0.6, BNP 4930, lipase 398, and initial troponin negative 05/29- assuming care. Pt is pleasantly confused, calm and cooperative. He is alert and oriented to self only and is not a reliable source of information. He does not appear to be in any acute distress. He was recently discharged from the hospital with UTI nd rx for Augmentin and instructions to continue his straight catheterization, and is now readmitted with repeat UTI. He has a Babin cath. His at the bedside, very concerned about frequents UTIs and wants to discuss with urology outpt treatment for his enlarged prostate. 05/30- is upset that she missed DR Butterfield yesterday- as she has lots of question. Pt is doing well otherwise- reports no pain- still confused but reoriented. Review of Systems Review of Systems: All systems reviewed & are unremarkable except as noted in HPI and below ROS unobtainable: Yes unobtainable due to mental status (dementia) Constitutional: Constitutional: Denies chills Eyes: Eyes: Denies blurry vision Cardiovascular: Cardiovascular: Denies chest pain Respiratory: Respiratory: Denies chest congestion and Denies cough Gastrointestinal: Gastrointestinal: Denies abdominal pain Genitourinary: Genitourinary: Reports urinary frequency and Reports urinary hesitancy Musculoskeletal: Musculoskeletal: Reports myalgias and Reports stiffness Exam Narrative: alert, oriented, in no distress Const: General: comfortable and no acute distress Other: , male, frail, elderly, nontoxic appearance HENMT: Face/Nose/Sinus: Normal nares present Mouth: Yes moist mucous membranes Eyes: General: appearance normal, both eyes and all related structures Sclera: sclerae normal Pupils: Equal, round and reactive pupils present EOM: EOMs intact bilaterally Neck: Neck: supple and no JVD Resp: Effort & Inspection: normal respiratory effort Auscultation: diminished lung sounds Other: crackles in left lung base. Cardio: Rate: regular rate Rhythm: regular rhythm Other: No murmur, frequent ectopy versus irregular rhythm. GI: Inspection: non-distended Auscultation: normal bowel sounds Other: Abdomen soft, nondistended, nontender. Normoactive bowel sounds in all quadrants. Skin: General skin exam: normal color, no rashes or lesions noted, no erythema, No lesion and No rashes Lesions: no lesions noted Rashes: no rashes noted Wounds: no wounds Neuro: Cranial nerves: Yes Equal, round and reactive pupils present Speech: normal speech Motor exam (neuro): 5/5 motor strength present throughout and Normal motor muscle tone present throughout Sensory Exam: normal sensation Other: A&O x1, +somnolence Extrem: General: normal to inspection, no edema and no pedal edema Psych: Mental Status: mental status grossly normal Affect: normal affect Other: Poor insight and judgment, pleasant Objective Data Vital Signs Vital Signs: Vital Signs - 24 hr 05/29/24 08:51 05/29/24 08:52 05/29/24 14:00 Temperature 98.1 F Pulse Rate 90 90 76 Respiratory Rate 16 20 Blood Pressure 111/60 96/63 L Pulse Oximetry 100 100 Oxygen Delivery 05/29/24 12:00 05/29/24 08:50 05/29/24 16:00 Temperature Pulse Rate 78 76 Respiratory Rate Blood Pressure Pulse Oximetry Oxygen Delivery Room Air 05/29/24 21:13 05/29/24 21:32 05/29/24 20:00 Temperature 97.9 F Pulse Rate 76 61 80 Respiratory Rate 18 Blood Pressure 106/55 L Pulse Oximetry 96 Oxygen Delivery 05/30/24 00:00 05/30/24 00:41 05/30/24 04:00 Temperature Pulse Rate 82 82 Respiratory Rate Blood Pressure 112/63 Pulse Oximetry Oxygen Delivery 05/30/24 05:31 Temperature 98.4 F Pulse Rate 79 Respiratory Rate 20 Blood Pressure 117/62 Pulse Oximetry 100 Oxygen Delivery Intake/Output Intake/Output: Intake & Output 05/27/24 05/28/24 05/29/24 05/30/24 23:59 23:59 23:59 23:59 Intake Total 1630 3920 1040 500 Output Total 375 4900 3300 1100 Balance 1255 -980 -2260 -600 Meds/Results Medications: Active Medications Generic Name Dose Route Start Last Admin Trade Name Freq PRN Reason Stop Dose Admin Acetaminophen 650 mg 05/27/24 12:11 Acetaminophen 325 Mg Tablet PO Q4H PRN Mild Pain (1-3) or Fever Hydrocodone Bitart/Acetaminophen 1 tab 05/27/24 12:11 Hydrocodone/Acetaminophen (*Crx) 5-325 Mg Tablet PO Q6H PRN Pain Rated 4-6 Allopurinol 100 mg 05/28/24 09:00 05/29/24 08:53 Allopurinol 100 Mg Tablet PO 100 mg DAILY SUZAN Administration Aspirin 81 mg 05/28/24 08:00 05/29/24 08:52 Aspirin 81 Mg Chewable Tablet PO 81 mg DAILY@0800 SUZAN Administration Atorvastatin Calcium 10 mg 05/28/24 09:00 05/29/24 08:53 Atorvastatin 10 Mg Tablet PO 10 mg DAILY SUZAN Administration Cilostazol 100 mg 05/28/24 09:00 05/29/24 08:53 Cilostazol 100 Mg Tablet PO 100 mg DAILY SUZAN Administration Escitalopram Oxalate 20 mg 05/28/24 09:00 05/29/24 08:53 Escitalopram Oxalate 10 Mg Tablet PO 20 mg DAILY SUZAN Administration Fluticasone Propionate 1 spray 05/28/24 09:00 05/29/24 08:55 Fluticasone Propionate 0.05% Na Spr 16 Gm Btl (*Bkc) NASAL 1 spray DAILY SUZAN Administration Furosemide 40 mg 05/28/24 09:00 05/29/24 08:53 Furosemide 40 Mg Tablet PO 40 mg DAILY SUZAN Administration Ampicillin Sodium/Sulbactam Sodium 3 gm in 100 mls @ 200 mls/hr 05/27/24 15:45 05/30/24 04:10 Unasyn 3 Gm/Ns 100 Ml IVPB Infused Q12HR@0400,1600 SUZAN Infusion Loperamide HCl 2 mg 05/28/24 18:03 05/29/24 13:13 Loperamide Hcl 2 Mg Capsule PO 2 mg PRN PRN Administration Diarrhea Metoprolol Tartrate 150 mg 05/27/24 21:00 05/29/24 21:13 Metoprolol Tartrate 50 Mg Tab PO 150 mg Q12HR SUZAN Administration Multivitamins/Minerals 1 tab 05/28/24 09:00 05/29/24 08:53 Multivitamins /C Lutein (Centrum Silver) Tablet *Bkc PO 1 tab DAILY SUZAN Administration Radiology Results: ITS Impressions Chest X-Ray 05/27/24 05:57 Impression: Small right pleural effusion. Quality VTE Prophylaxis VTE prophylaxis: mechanical ordered
[2024-05-30] MEDS: ESCITALOPRAM OXALATE 10 MG TABLET 20 MG PO (09:11)
[2024-05-30] MEDS: FLUTICASONE PROPIONATE 0.05% NA SPR 16 GM BTL (*BKC) 1 SPRAY NASAL (09:11)
[2024-05-30] MEDS: MULTIVITAMINS /C LUTEIN (CENTRUM SILVER) TABLET *BKC 1 TAB PO (09:12)
[2024-05-30] MEDS: cilostazoL 100 MG TABLET PO (09:12)
[2024-05-30] MEDS: ASPIRIN 81 MG CHEWABLE TABLET PO (09:12)
[2024-05-30] MEDS: METOPROLOL TARTRATE 50 MG TAB 150 MG PO ×2 (09:12→20:41)
[2024-05-30] MEDS: ATORVASTATIN 10 MG TABLET PO (09:12)
[2024-05-30] MEDS: allopurinoL 100 MG TABLET PO (09:12)
[2024-05-30] MEDS: FUROSEMIDE 40 MG TABLET PO (09:12)
[2024-05-30] MEDS: SACUBITRIL/VALSARTAN 24-26 MG TABLET 1 TAB PO (20:41)
[2024-05-31] VITALS: PULSE 83
[2024-05-31] MEDS: AMPICILLIN SULB 3 GM/NS 100 ML 3 GM/100 ML VIAL IVPB (03:32)
[2024-05-31 04:00] VITALS: PULSE 84
[2024-05-31 06:00] VITALS: BP 111/65; PULSE 82; RESP 18; TEMP 36.2; O2SAT 97
[2024-05-31 08:04] VITALS: PULSE 82
[2024-05-31 08:37] VITALS: PULSE 80
[2024-05-31] MEDS: ASPIRIN 81 MG CHEWABLE TABLET PO (08:37)
[2024-05-31] MEDS: ESCITALOPRAM OXALATE 10 MG TABLET 20 MG PO (08:37)
[2024-05-31] MEDS: METOPROLOL TARTRATE 50 MG TAB 150 MG PO (08:37)
[2024-05-31 08:38] VITALS: PULSE 80; RESP 18; O2SAT 97
[2024-05-31] MEDS: FUROSEMIDE 40 MG TABLET PO (08:38)
[2024-05-31] MEDS: SACUBITRIL/VALSARTAN 24-26 MG TABLET 1 TAB PO (08:38)
[2024-05-31] MEDS: cilostazoL 100 MG TABLET PO (08:38)
[2024-05-31] MEDS: ATORVASTATIN 10 MG TABLET PO (08:38)
[2024-05-31] MEDS: FLUTICASONE PROPIONATE 0.05% NA SPR 16 GM BTL (*BKC) 1 SPRAY NASAL (08:38)
[2024-05-31] MEDS: allopurinoL 100 MG TABLET PO (08:38)
[2024-05-31] MEDS: MULTIVITAMINS /C LUTEIN (CENTRUM SILVER) TABLET *BKC 1 TAB PO (08:38)
--- NOTE | 2024-05-31 08:42 | P.DS_ITS ---
DS: Admitting Diagnosis Discharge Date 05/31/2024 0800 Admitting Diagnosis Hypotension, UTI DS: Discharge Diagnosis Discharge Diagnosis (1) Acute hypotension: Code(s): I95.9 - Hypotension, unspecified Status: Acute Assessment and Plan: - patient did not meet SIRS criteria, however is hypotensive with suspected site of infection. Lactic 0.6. Blood cultures and urine culture pending, follow. - IV fluids: 1 L bolus, continue at 100 mL/hour x1 L - suspect UTI as etiology for acute hypotension, treat - holding Entresto, continuing metoprolol given hx of AFib. - monitor hemodynamics - monitor I&Os 05/28/24: * Resolved. Stable BP at 116/60 today. * Continue to monitor and continue to hold Entresto. 05/29- stable- will hold entresto for another night to ensure BP stable and restart in am (2) Acute UTI: Code(s): N39.0 - Urinary tract infection, site not specified Status: Acute Assessment and Plan: - UA: 1+ protein, 1+ blood, 1+ leuks, 3-5 RBC, 6-10 WBC, occasional epithelial cells, yeast present. - UC pending - previous micro reviewed most recent UC grew Klebsiella that was intermediate to Macrobid only on 05/12/2024. Has also grown Enterococcus x2, kidney they a albicans, coag-negative staph - started on Ceftriaxone on 05/27, will add ampicillin IVPB for Enterococcus coverage 05/28/24: * Continue Unasyn for abx coverage. * Urine culture is pending. * Preliminary blood cultures are negative. 05/29- so far growing Colleen tropicalis- yeast- will not treat for it as of right now since he is improving clinically will consult urology per family request 05/30- was seen per urology yesterday, notes reviewed: * Recurrent urinary tract infections which, given patient's history of a ma rkedly hypotonic bladder, is likely due to incomplete bladder emptying. * Will plan a voiding trial prior to discharge with careful monitoring of postvoid residual volumes. If residual volumes are high he may need repeat urodynamics and encouragement to resume intermittent self catheterization (3) Anemia: Qualifiers: Anemia type: iron deficiency Iron deficiency anemia type: unspecified iron deficiency Qualified Code(s): D50.9 - Iron deficiency anemia, unspecified Code(s): D64.9 - Anemia, unspecified Status: Chronic Assessment and Plan: - chronic in setting of CKD and MORALES - hemoglobin 9.8, baseline appears to be 9.8-10.6 for the past year - monitor (4) Hypertension: Qualifiers: Hypertension type: primary hypertension Qualified Code(s): I10 - Essential (primary) hypertension Code(s): I10 - Essential (primary) hypertension Status: Chronic Assessment and Plan: - chronic, arrived soft. Hypotensive at home. Will hold 1/2 home medications, resume when appropriate. - home medications: Hold Entresto. Continue metoprolol. - monitor * Not currently exacerbated. * Continue Beta marquise and continue to hold Entresto and monitor. Add Entresto back as needed. Plan Diet: Heart healthy GI Prophylaxis: Currently indicated DVT Prophylaxis: SCDs Lines: Peripheral Code Status: Full code DS: Summary Hospital Course Hospital Course: Patient is a 71-year-old male with past medical history of BPH, anemia, CKD, CAD, Crohn's, depression, gout, hyperlipidemia, hypertension, PVD, seizures, dementia who presented to the ED with complaints of low blood pressure. According the the patient was noted to have a blood pressure of 70/53 days ago which had continued. He also had a low-grade fever of 100. It was also noted that he was recently admitted for a UTI which grew out Klebsiella. Urine culture was obtained this time which did grow some yeast. UA was obtained did not show any concerns for UTI. Patient was treated for UTI was ceftriaxone and Unasyn. Currently blood pressure is stable 111/65. It does appear that his blood pressure medications were on hold however have been restarted and blood pressures have been maintaining. Patient does do straight caths at home. Urology did consult and patient was given a Babin catheter and voiding trial was obtained and catheter was removed. Currently patient states that he feels okay he denies any current chest pain, shortness a breath, nausea, vomiting, diarrhea constipation. Labs look to be stable. At this time patient is stable for discharge. It is noted that the creatinine is 2.40 however seems to be into the 2's over the last couple of months from the beginning of the year. Currently patient is stable for discharge for labs and vital signs. Patient will follow- up with his primary care provider urologist and will refer him to a picker/puller for further workup with CAD. Of note patient did have a renal ultrasound last visit and the Renal ultrasound which showed mild of atrophy of the kidneys. He was also seen by Nephrology during his last visit as well. Will have patient follow-up with Nephrology outpatient. Did speak to the who verbalized understanding along with answering all of her questions. Patient is stable for discharge as indicated. Status at Discharge Functional status at discharge: uses cane/walker Overall status at discharge: patient is progressing back to baseline Time Spent with Patient Time attestation: Total time spent providing and/or coordinating discharge services: 54 minutes Time spent: Greater than 30 minutes Specific discharge activities: Diagnostic testing, chart review, developing a treatment plan, education, care coordination documentation, physical exam, result review Exam Narrative: General: well-nourished, well-appearing 79-year-old male, laying in bed, comfortable, NARD Neuro: awake, alert and oriented x4, speech clear, no focal neuro deficits noted HEENMT: normocephalic, atraumatic, EOMI, sclerae anicteric, moist oral mucosa Respiratory: Clear to auscultation bilaterally without crackles, rhonchi or wheezes, nonlabored breathing Cardio: regular rate, regular rhythm with S1-S2 Abdomen: nondistended, normoactive bowel sounds, soft, nontender to palpation Extremities: no edema, erythema, or tenderness to palpation, DP pulses 2+ bilaterally Skin: no rashes or lesions, warm and dry Psych: appropriate mood and affect, judgment and insight intact DS: Data Data Completed and Pending Labs on day of discharge: Preliminary micro results at discharge 05/27/24 03:56 Blood Culture - Preliminary Blood 05/27/24 03:56 Blood Culture - Preliminary Blood Discharge Plan Discharge Attending physician on discharge: Umm Lovett Consulting providers: Joshua Butterfield Discharging Clinician: Rashid Ferrera Patient Disposition: Home, Self-Care Activity: may shower, unlimited and as tolerated Diet: heart healthy Discharge Instructions: * Take all medications as prescribed even if feeling better * Eat well balanced meals * Keep active to remain strong * Avoid use of diapers or pads * Good julisa Care every 2 hours * Remember to maintain good sterile technique with straight cathing * Trend urine output * If you should experience any chest pain, shortness of breath, temps >100.4 or any other worrisome symptoms please follow up with your PCP come back to the hospital * Follow up with your primary in 1 weeks * Follow up with Nephrology as well * It has been a pleasure taking care of you thank you for using our services * Check the blood pressure in the am and pm record your findings, report findings to your primary care provider and rental counter clerk for further medication adjustments or instructions * Hold the entresto if the blood pressure's top number is less than 100. * Straight cath at very minimum at night Patient Instructions: Antibiotic Form Stand Alone Forms: General Discharge Information Follow-up/Referrals: Jorgito Patrick MD [Physician] - Call for Appointment Jesus,Anayeli Lyons MD [Primary Care Provider] - Call for Appointment Joshua Butterfield MD [Physician] - Call for Appointment Discharge Medications: Continued fluticasone propionate 50 mcg/actuation spray,suspension 1 spray INTRANASAL DAILY furosemide 40 mg tablet 40 mg PO DAILY Hold Instructions: Resume on 05/28/25. Hold until told to resume by primary care provider and Nephrology. Rx Instructions: Ordered to resume today today Folcaps [place]-3 1 cap PO BID cilostazol 100 mg tablet 100 mg PO DAILY atorvastatin 10 mg tablet 10 mg PO DAILY allopurinol 100 mg tablet 100 mg PO DAILY aspirin 81 mg Tablet 81 mg PO DAILY escitalopram oxalate 20 mg tablet 20 mg PO DAILY coenzyme Q10 [Co Q-10] 200 mg Capsule 200 mg PO DAILY Adults Multivitamin 18 mg iron-400 mcg-25 mcg Tablet 1 tablet PO DAILY Daily Probiotic 2.5 billion cell Capsule 1 cap PO DAILY Entresto 24-26 mg Tablet 1 tablet PO Q12HR Qty: 60 0RF metoprolol tartrate 50 mg Tablet 150 mg PO Q12HR Qty: 180 0RF Date of admission: 05/27/24 07:18 Primary Care Provider: Jesus,Anayeli Lyons Admitting Provider: Umm Lovett Attending physician on admission: Evelyn Hendrickson Condition: Stable Quality VTE Prophylaxis VTE prophylaxis: mechanical ordered Hospitalist MIPS Heart Failure (Exclusion) Patient has history of Heart Transplant or Left Ventricular Assistive Device?: No IF YES, STOP HERE Heart Failure (Qualifier) Patient has current or prior documentation of LVEF less than or equal to 40%, or mod/servere depressed LVSF?: Yes IF NO, STOP HERE If Yes, Heart Failure (Qualifier) Patient was prescribed or already taking an Angiotensin-Converting Enzyme (CIRLIO) Inhibitor, or Antiotensin Receptor Marquise (ARB): Yes Patient was prescribed or already taking bisoprolol, carvedilol, or sustained release metoprolol succinate: Yes
--- NOTE | 2024-05-31 09:08 | P.PNUR_ITS ---
Progress Note: A&P Assessment and Plan (1) Acute UTI: Code(s): N39.0 - Urinary tract infection, site not specified Status: Acute (2) Acute kidney injury superimposed on CKD: Code(s): N17.9 - Acute kidney failure, unspecified; N18.9 - Chronic kidney disease, unspecified Status: Acute Assessment and Plan: * Recurrent urinary tract infections which, given patient's history of a markedly hypotonic bladder, is likely due to incomplete bladder emptying. * Babin catheter removed on 05/30/2024. Straight cathed early a.m. with 300 cc urine output * Discussed with patient recommendations to resume intermittent self catheterization 2-3 times per day and he is agreeable. * Will arrange outpatient follow-up for continued monitoring and consideration of repeat urodynamics Subjective Subjective Date/Time Seen: 05/31/24 09:08 Interval history: Vitaly is doing well today. Offers no concerns. Babin was removed yesterday. He was straight cathed overnight with about 200 cc urine output. He denies suprapubic pain, fullness, pressure. He is eager for discharge home today. Review of Systems Review of Systems: All systems reviewed & are unremarkable except as noted in HPI and below Exam Narrative: General: Awake, alert, comfortable, no acute distress HEENT: Normocephalic, atraumatic, sclerae anicteric Respiratory: Normal respiratory effort, no accessory muscle use Abdomen: Nondistended, soft, nontender Skin: Normal coloration, warm and dry Neurologic: No focal neuro deficits noted Psychiatric: Appropriate mood and affect, judgment and insight intact Objective Data Vital Signs Vital Signs: Vital Signs - 24 hr 05/30/24 09:12 05/30/24 14:00 05/30/24 16:00 Temperature 97.4 F L Pulse Rate 80 76 84 Respiratory Rate 16 Blood Pressure 98/54 L Pulse Oximetry 90 Oxygen Delivery 05/30/24 12:00 05/30/24 20:00 05/30/24 20:41 Temperature Pulse Rate 77 84 84 Respiratory Rate 16 Blood Pressure Pulse Oximetry 90 Oxygen Delivery Room Air 05/30/24 21:31 05/30/24 20:00 05/31/24 00:00 Temperature 97.6 F Pulse Rate 83 82 83 Respiratory Rate 20 Blood Pressure 102/60 Pulse Oximetry 100 Oxygen Delivery 05/31/24 04:00 05/31/24 06:00 05/31/24 08:37 Temperature 97.1 F L Pulse Rate 84 82 80 Respiratory Rate 18 Blood Pressure 111/65 Pulse Oximetry 97 Oxygen Delivery Intake/Output Intake/Output: Intake & Output 05/28/24 05/29/24 05/30/24 05/31/24 23:59 23:59 23:59 23:59 Intake Total 3920 1040 1200 400 Output Total 4900 3300 2400 300 Balance -980 -2260 -1200 100 Meds/Results Medications: Active Medications Generic Name Dose Route Start Last Admin Trade Name Freq PRN Reason Stop Dose Admin Acetaminophen 650 mg 05/27/24 12:11 Acetaminophen 325 Mg Tablet PO Q4H PRN Mild Pain (1-3) or Fever Hydrocodone Bitart/Acetaminophen 1 tab 05/27/24 12:11 Hydrocodone/Acetaminophen (*Crx) 5-325 Mg Tablet PO Q6H PRN Pain Rated 4-6 Allopurinol 100 mg 05/28/24 09:00 05/31/24 08:38 Allopurinol 100 Mg Tablet PO 100 mg DAILY SUZAN Administration Aspirin 81 mg 05/28/24 08:00 05/31/24 08:37 Aspirin 81 Mg Chewable Tablet PO 81 mg DAILY@0800 SUZAN Administration Atorvastatin Calcium 10 mg 05/28/24 09:00 05/31/24 08:38 Atorvastatin 10 Mg Tablet PO 10 mg DAILY SUZAN Administration Cilostazol 100 mg 05/28/24 09:00 05/31/24 08:38 Cilostazol 100 Mg Tablet PO 100 mg DAILY SUZAN Administration Escitalopram Oxalate 20 mg 05/28/24 09:00 05/31/24 08:37 Escitalopram Oxalate 10 Mg Tablet PO 20 mg DAILY SUZAN Administration Fluticasone Propionate 1 spray 05/28/24 09:00 05/31/24 08:38 Fluticasone Propionate 0.05% Na Spr 16 Gm Btl (*Bkc) NASAL 1 spray DAILY SUZAN Administration Furosemide 40 mg 05/28/24 09:00 05/31/24 08:38 Furosemide 40 Mg Tablet PO 40 mg DAILY SUZAN Administration Ampicillin Sodium/Sulbactam Sodium 3 gm in 100 mls @ 200 mls/hr 05/27/24 15:45 05/31/24 03:32 Unasyn 3 Gm/Ns 100 Ml IVPB 200 mls/hr Q12HR@0400,1600 SUZAN Administration Loperamide HCl 2 mg 05/28/24 18:03 05/29/24 13:13 Loperamide Hcl 2 Mg Capsule PO 2 mg PRN PRN Administration Diarrhea Metoprolol Tartrate 150 mg 05/27/24 21:00 05/31/24 08:37 Metoprolol Tartrate 50 Mg Tab PO 150 mg Q12HR SUZAN Administration Multivitamins/Minerals 1 tab 05/28/24 09:00 05/31/24 08:38 Multivitamins /C Lutein (Centrum Silver) Tablet *Bkc PO 1 tab DAILY SUZAN Administration Sacubitril/Valsartan 1 tab 05/30/24 21:00 05/31/24 08:38 Sacubitril/Valsartan 24-26 Mg Tablet PO 1 tab Q12HR SUZAN Administration Radiology Results: ITS Impressions Chest X-Ray 05/27/24 05:57 Impression: Small right pleural effusion.
[2024-05-31 09:31] LABS: Hematocrit 32.9 % (42.0-52.0); Hemoglobin 10.8 g/dL (14.0-18.0); Mean Corpuscular HGB Conc 32.8 g/dl (32-36); Mean Corpuscular Hemoglobin 32.2 pg (26-34); Mean Corpuscular Volume 98.2 fl (80-100); Mean Platelet Volume 9.6 fl (7.4-10.4); Platelet Count Result 218 k/mm3 (150-375); Red Blood Count 3.35 M/mm3 (4.6-6.20); Red Cell Distribution Width 14.9 % (11.5-14.5); White Blood Count 9.3 K/mm3 (4.5-10.0)
[2024-05-31 09:41] LABS: Anion Gap 12 mmol/L (4-12); Blood Urea Nitrogen 24 mg/dL (9-20); Calcium 8.4 mg/dL (8.4-10.2); Carbon Dioxide 27 mmol/L (22-30); Chloride 97 mmol/L (98-107); Estimated CRCL calculation 18 ml/min; Estimated Glomerular Filt Rate 22; Glucose 122 mg/dL (65-110); Potassium 3.6 mmol/L (3.4-5.0); Sodium 136 mmol/L (137-145)
== END 2024-05-31 12:45 | disposition home or self-care (01) | DRG 728 ==
LOC: ANHED 07:17 → ANH3MEDSUR 08:13 → ANH2MED 09:01
PROVIDERS: Nurse Practitioner; Nurse Practitioner Adult Health; Student in an Organized Health Care Education/Training Program; Admitting Provider Internal Medicine; Emergency Provider Emergency Medicine; PCP Family Medicine Sports Medicine; Visit Provider Nurse Practitioner
DX: B37.49 Other urogenital candidiasis (principal); K50.90 Crohn's disease, unspecified, without complications; N17.9 Acute kidney failure, unspecified; I13.0 Hypertensive heart and chronic kidney disease with heart failure and stage 1 through stage 4 chronic kidney disease, or unspecified chronic kidney disease; I43 Cardiomyopathy in diseases classified elsewhere; I95.9 Hypotension, unspecified; D50.9 Iron deficiency anemia, unspecified; D63.1 Anemia in chronic kidney disease; E78.5 Hyperlipidemia, unspecified; F03.90 Unspecified dementia, unspecified severity, without behavioral disturbance, psychotic disturbance, mood disturbance, and anxiety; F32.A Depression, unspecified; I50.9 Heart failure, unspecified; I73.9 Peripheral vascular disease, unspecified; I25.10 Atherosclerotic heart disease of native coronary artery without angina pectoris; I48.91 Unspecified atrial fibrillation; M10.9 Gout, unspecified; N40.0 Benign prostatic hyperplasia without lower urinary tract symptoms; N18.30 Chronic kidney disease, stage 3 unspecified; Z95.1 Presence of aortocoronary bypass graft; Z66 Do not resuscitate; Z79.82 Long term (current) use of aspirin
CPT/HCPCS: 36415; 36600; 71045; 80048; 80053; 80307; 81001; 82805; 83605; 83690; 83735; 83880; 84100; 84443; 84484; 85025; 85027; 85610; 85730; 86850; 86900; 86901; 87040; 87086; 87088; 87106; 87637; 93005; 96361; 96365; 99285; A9270; J0295; J0696; J7030; J7120

== ENCOUNTER 2024-07-02 04:35 | Inpatient (IN) | payer MEDICARE, SELFPAY ==
[2024-07-02] VITALS (9 sets, daily range): BP systolic 126–150; BP diastolic 68–94; PULSE 100–118; RESP 16–20; TEMP 36.3–37.4; O2SAT 94–100; BMI 23.1
--- NOTE | ~2024-07-02 | CT_ITS ---
CT head without contrast Indication: Seizure COMPARISON: 09/10/2022 Technique: Serial scans were obtained through the brain without the administration of contrast. Dose reduction technique was used on this scan by utilizing automated exposure control and iterative recon struction technique. The dose-length product (DLP) was 605.33 mGy-cm. Findings: There is no evidence of intracranial hemorrhage, mass lesion, or acute infarct. The ventri cles and subarachnoid spaces are dilated, consistent with mild atrophy. Low attenuation regions are seen within the periventricular white matter bilaterally, likely representing changes from chronic mi crovascular ischemic disease. There is no evidence of edema, mass effect or midline shift. The visu alized paranasal sinuses and mastoid air cells are clear. Impression: No intracranial hemorrhage, mass, or acute infarct. Atrophy and chronic white matter changes, as above. Reviewed, dictated and finalized at location . Impression: No intracranial hemorrhage, mass, or acute infarct. Atrophy and chronic white matter changes, as above.
--- NOTE | ~2024-07-02 | MR_ITS ---
EXAMINATION: MR brain/brain stem wo con DATE: 07/04/2024 08:13 INDICATION: Seizure. TECHNIQUE: Magnetic resonance imaging (MRI) of the brain and brainstem was performed without intraven ous contrast. COMPARISON: Brain MRI 03/22/2022, head CT 07/02/2024 FINDINGS: There are scattered areas of nonspecific increased T2-weighted signal intensity in the cere bral white matter and emmanuelle. There is no intracranial hemorrhage, acute infarction, or abnormal intrac ranial mass lesion. The ventricles are normal in size. The paranasal sinuses are clear. There are lik carrie changes of ocular lens replacement surgeries. The mastoid air cells are normal. IMPRESSION: 1. Moderate nonspecific cerebral white matter disease and pontine disease, which likely represents ch ronic small vessel ischemic disease. Reviewed, dictated and finalized at location A. IMPRESSION: 1. Moderate nonspecific cerebral white matter disease and pontine disease, whic h likely represents chronic small vessel ischemic disease.
--- NOTE | ~2024-07-02 | XR_ITS ---
Portable chest x-ray Comparison: 05/27/2024 Clinical History: Aspiration Findings: There is patchy right basilar airspace disease. Possible minimal pleural effusions. Cardi omediastinal silhouette is stable. Bones and soft tissues are unremarkable. Impression: Possible minimal pleural effusions with patchy right basilar airspace disease. Correlate for pneumoni a versus developing pulmonary edema. Reviewed, dictated and finalized at [facility]. Impression: Possible minimal pleural effusions with patchy right basilar airspace disease. Correlate for pneumonia versus developing pulmonary edema.
--- NOTE | ~2024-07-02 | US_ITS ---
EXAMINATION: US carotid duplex BI DATE: 07/04/2024 08:36 INDICATION: Seizure. TECHNIQUE: Grayscale, color Doppler, and pulsed Doppler images of the cervical carotid arteries were obtained. The degree of vessel stenosis is placed in one of the following categories: normal, <50%, 5 0-69%, >=70% but less than near-occlusion, near-occlusion, or total occlusion. Note that percent sten osis relative to normal distal artery lumen diameter is indirectly measured from velocity measurement s as described by Terell, et al. Radiology 2003; [id number]. COMPARISON: None. FINDINGS: RIGHT: The right common carotid artery (CCA) peak systolic velocity (PSV) is 68 cm/s. The right internal car otid artery (ICA) PSV is 59 cm/s. The right ICA end-diastolic velocity (EDV) is 18 cm/s. The right IC A/CCA PSV ratio is 0.9. Grayscale and color Doppler images yield an estimate of <50% diameter reducti on from plaque in the ICA. There is antegrade flow in the right vertebral artery. LEFT: The left CCA PSV is 100 cm/s. The left ICA PSV is 69 cm/s. The left ICA EDV is 23 cm/s. The left ICA/ CCA PSV ratio is 0.7. Grayscale and color Doppler images yield an estimate of <50% diameter reduction from plaque in the ICA. There is antegrade flow in the left vertebral artery. IMPRESSION: 1. <50% stenosis in the right internal carotid artery. 2. <50% stenosis in the left internal carotid artery. Reviewed, dictated and finalized at location A.
--- NOTE | 2024-07-02 04:42 | ECG_ITS ---
Test Date: 2024-07-02 04:44:23 Measurements Intervals [place] Rate: 116 P: 0 PA: 0 QRS: 75 QRSD: 93 T: 56 QT: 319 QTc: 444 Interpretive Statements ATRIAL FIBRILLATION WITH RAPID VENTRICULAR RESPONSE WITH ABERRANT CONDUCTION OR VENTRICULAR PREMATURE COMPLEXES LEFT VENTRICULAR HYPERTROPHY ABNORMAL RHYTHM ECG Compared to ECG 05/27/2024 07:25:02 HEART RATE INCREASED, NO OTHER SIGNIFICANT CHANGE Electronically Signed On 07-02-2024 12:32:36 CDT by Jeffery Bustillos M.D.
--- NOTE | 2024-07-02 04:43 | ED.SEIZURE ---
HPI - Seizure General Chief Complaint: Altered Mental Status Stated Complaint: UNRESPONSIVE Time Seen by Provider: 07/02/24 04:38 History of Present Illness HPI Narrative: 79-year-old male with a past medical history significant for AFib, chronic kidney disease, anemia, Crohn's, seizure disorder, dementia, vascular dementia. Patient presents to the emergency department after having a seizure at home. Patient's woke up in her the patient shaking next to him. He was unconscious and did bite his lip and was bleeding from the right side of his mouth. EMS came to find the patient only responsive to painful stimuli and postictal. Patient slowly began regaining consciousness that is now returning to more of his baseline self. He is purposely moving, responding to voice and opens eyes spontaneously. Not answering my questions appropriately at although he does have a history of dementia at baseline. No evidence of head trauma is not any blood thinner medications according to his medication list. No antiepileptic medications although several notes do document seizure disorder and is in is noted in his problem list. No blood thinners noted in his chart or his medications the bedside. Related Data Home Medications Medication Instructions Recorded Confirmed Lactobacillus 1 cap PO DAILY 11/08/23 05/27/24 acidophilus-Bifidobac.animalis 2.5 billion cell capsule (Daily Probiotic) allopurinol 100 mg tablet 100 mg PO DAILY 11/08/23 05/27/24 aspirin 81 mg tablet 81 mg PO DAILY 11/08/23 05/27/24 atorvastatin 10 mg tablet 10 mg PO DAILY 11/08/23 05/27/24 cilostazol 100 mg tablet 100 mg PO DAILY 11/08/23 05/27/24 coenzyme Q10 200 mg capsule (Co 200 mg PO DAILY 11/08/23 05/27/24 Q-10) escitalopram oxalate 20 mg tablet 20 mg PO DAILY 11/08/23 05/27/24 multivit with minerals-iron 18 1 tablet PO DAILY 11/08/23 05/27/24 mg-folic ac 400 mcg-vit K 25 mcg tablet (Adults Multivitamin) Folcaps [place]-3 1 cap PO BID 05/12/24 05/27/24 fluticasone propionate 50 1 spray intranasal DAILY 05/12/24 05/27/24 mcg/actuation nasal spray,suspension furosemide 40 mg tablet 40 mg PO DAILY 05/12/24 05/27/24 Allergies Allergy/AdvReac Type Severity Reaction Status Date / Time No Known Allergies Allergy Verified 11/07/23 19:49 Review of Systems Review of Systems: ROS unobtainable: Yes unobtainable due to medical condition and unobtainable due to mental status [facility] Past Medical History Medical History (Updated 07/02/24 @ 06:33 by Federico Stokes MD) Abdominal pain Atrial fibrillation with RVR B12 deficiency Benign prostatic hyperplasia Cardiomyopathy Chronic anemia Chronic kidney disease, stage 3 Coronary artery disease Crohn's disease Depression Gout Heart failure Hyperlipidemia Hypertension Iron deficiency anemia Kidney stones Osteoarthritis Peripheral vascular disease Recurrent incisional hernia Seizures Vascular dementia Surgical History Surgical History (Updated 05/27/24 @ 12:09 by Lucia Escobedo APRN) History of bilateral cataract extraction History of cholecystectomy History of coronary artery bypass graft History of lithotripsy History of partial colectomy X2 for to bowel obstructions and fistula secondary to Crohn's disease. History of vascular surgery Bilateral lower extremity stents. S/P CABG (coronary artery bypass graft) Family History Family History Father Myocardial infarct Cerebrovascular accident Mother Breast cancer Sibling Crohn's disease Social History Social History Social History: Surrogate decision maker: Sarah Oreilly, spouse. Code status: Do not resuscitate. Smoking packs per day: 2 Smoking cigarettes per day: 40.0 Years smoked: 25 Smoking pack-years: 50.00 Smoking status: Former smoker Second hand tobacco smoke exposure: No Alcohol intake: nev
[2024-07-02 04:53] LABS: Basophils Absolute Auto 0.1 K/mm3 (0.0-0.1); Basophils Percent Auto 0.6 % (0.2-1.2); Eosinophils Absolute Auto 0.2 K/mm3 (0-0.3); Eosinophils Percent Auto 2.3 % (0-4.4); Hematocrit 32.2 % (42.0-52.0); Hemoglobin 10.1 g/dL (14.0-18.0); Immature Granulocyte Absolute 0.04 K/mm3 (0.00-0.031); Immature Granulocyte Percent A 0.5 % (0-0.5); Lymphocytes Absolute Auto 1.08 K/mm3 (0.9-3.2); Lymphocytes Percent Auto 13.8 % (18.3-44.2); Mean Corpuscular HGB Conc 31.4 g/dl (32-36); Mean Corpuscular Hemoglobin 32.1 pg (26-34); Mean Corpuscular Volume 102.2 fl (80-100); Mean Platelet Volume 9.6 fl (7.4-10.4); Monocytes Absolute Auto 0.7 K/mm3 (0.1-0.6); Monocytes Percent Auto 8.5 % (2.6-8.5); Neutrophils Absolute Auto 5.8 K/mm3 (1.3-6.7); Neutrophils Percent Auto 74.3 % (45.5-73.1); Platelet Count Result 200 k/mm3 (150-375); Red Blood Count 3.15 M/mm3 (4.6-6.20); Red Cell Distribution Width 13.8 % (11.5-14.5); White Blood Count 7.8 K/mm3 (4.5-10.0)
[2024-07-02] MEDS: SODIUM CHLORIDE 0.9% IV 1,000 ML 999 ML IV CONT (04:55)
[2024-07-02 05:04] LABS: Alanine Aminotransferase 29 U/L (6-50); Albumin Level 3.8 g/dL (3.5-5.1); Alkaline Phosphatase 77 U/L (38-126); Anion Gap 13 mmol/L (4-12); Aspartate Amino Transferase 36 U/L (17-59); Bilirubin,Total 0.5 mg/dL (0.2-1.3); Blood Urea Nitrogen 35 mg/dL (9-20); Calcium 8.4 mg/dL (8.4-10.2); Carbon Dioxide 22 mmol/L (22-30); Chloride 103 mmol/L (98-107); Estimated CRCL calculation 24 ml/min; Estimated Glomerular Filt Rate 28; Glucose 118 mg/dL (65-110); INR 1.2; Prothrombin Time 15.4 Seconds (11.1-14.7); Sodium 138 mmol/L (137-145)
[2024-07-02 05:05] LABS: Partial Thromboplastin Time 22.8 Seconds (22.3-36.8)
[2024-07-02 05:59] LABS: Add Urine Microscopic? YES; Appearance Urine Cloudy (Clear); Bacteria Urine 4+ /hpf; Bilirubin Urine Negative (Negative); Blood Urine 1+ (Negative); Budding Yeast Urine Present /hpf; Color Urine Yellow (Yellow); Glucose Urine UA Negative (Negative); Ketones Urine Negative (Negative); Leukocyte Esterase Ur 2+ LEU/UL (Negative); Need Manual Microscopic Reviewed; Nitrate Urine Positive (Negative); Protein Urine 1+ mg/dL (Negative); RBC Urine 0-2 /hpf (0-2); Specific Grav Ur 1.015 (1.001-1.035); Squamous Epithelial Cell Urine Occasional /hpf (Few); Urobilinogen Urine 0.2 mg/dL (<2.0); WBC Urine 51-100 /hpf (0-3); pH Urine 5.5 (5.0-9.0)
[2024-07-02] MEDS: levETIRAcetam 1500MG/NACL100ML 1,500 MG/100 ML BAG 400 MG IVPB (06:30)
--- NOTE | 2024-07-02 07:16 | PM.IMHP ---
H&P: HPI History of Present Illness Date/Time: 07/02/24 07:16 Chief Complaint: Seizures Narrative: 79-year-old male with a past medical history significant for AFib, chronic kidney disease, anemia, Crohn's, seizure disorder, dementia, vascular dementia. Patient presents to the emergency department after having a seizure at home. Patient's woke up in her the patient shaking next to him. He was unconscious and did bite his lip and was bleeding from the right side of his mouth. EMS came to find the patient only responsive to painful stimuli and postictal. Patient slowly began regaining consciousness that is now returning to more of his baseline self. He is purposely moving, responding to voice and opens eyes spontaneously. Not answering my questions appropriately at although he does have a history of dementia at baseline. No evidence of head trauma is not any blood thinner medications according to his medication list. No antiepileptic medications although several notes do document seizure disorder and is in is noted in his problem list. No blood thinners noted in his chart or his medications the bedside. Patient had recent admission at [facility] from 05/27-05/31 for low bp, UTI, 05/13-05/18 for altered mental status and weakness, was diagnosed with a UTI (UC grew out Klebsiella) and an PREMA superimposed on CKD. Patient is not on any AC with Hx of A.Fib. In regards to his seizures, medical record review no antiepileptic medication. In the ED he was given Keppra 1500 mg 1 time. Records were reviewed for possible provocation factor including his EKG showed AFib, no significant abnormality in labs, CT of the head shows no intracranial hemorrhage, mass or acute infarct, chest x-ray shows minimal pleural effusion with a patchy right basilar airspace disease correlate for pneumonia versus developing pulmonary edema, . Urinalysis shows UTI, even though patient has a chronic UTI disorder this would have been a triggering factor for seizures.Patient will be started on Keppra 1 mg b.i.d and c ceftriaxone 1 g for UTI. Currently we do not have Neurology on board. Patient needs EEG and MRI of the brain.Had long discussion with family , reluctant to continue anti-epileptic medication but will wait until neurologist evaluate the patient tomorrow and discuss with family again to make decision on anti-epileptic medication continuation. Review of Systems Review of Systems: ROS unobtainable: Yes unobtainable due to medical condition and unobtainable due to mental status [facility] Past Medical History Medical History (Updated 07/02/24 @ 06:33 by Federico Stokes MD) Abdominal pain Atrial fibrillation with RVR B12 deficiency Benign prostatic hyperplasia Cardiomyopathy Chronic anemia Chronic kidney disease, stage 3 Coronary artery disease Crohn's disease Depression Gout Heart failure Hyperlipidemia Hypertension Iron deficiency anemia Kidney stones Osteoarthritis Peripheral vascular disease Recurrent incisional hernia Seizures Vascular dementia Surgical History Surgical History (Updated 05/27/24 @ 12:09 by Lucia Escobedo, [place]) History of bilateral cataract extraction History of cholecystectomy History of coronary artery bypass graft History of lithotripsy History of partial colectomy X2 for to bowel obstructions and fistula secondary to Crohn's disease. History of vascular surgery Bilateral lower extremity stents. S/P CABG (coronary artery bypass graft) Family History Family History Father Myocardial infarct Cerebrovascular accident Mother Breast cancer Sibling Crohn's disease Social History Social History Social History: Surrogate decision maker: Sarah Hongcharlotte, spouse. Code status: Do not resuscitate. Smoking packs per day: 2 Smoking cigarettes per day: 40.0 Years smoked: 25 Smoking pack-yea
--- NOTE | 2024-07-02 09:02 | ADMGEN ---
This patient, Vitaly Oreilly, was admitted to [facility] Surg Room 303-01. Patient/family oriented to hospital policies and general routines including ID bracelet, bed and alarms, visiting hours, pain management, procedures, bathroom and other care routines, personal items, smoking policy, room service/diet, and visiting hours. Information on how to activate the Rapid Response Team has been discussed. Patient/Family are encouraged to report perceived risks to care and to ask questions if they do not understand what they are told or what they should do.
--- NOTE | 2024-07-02 10:43 | PCSTNOTE ---
Please refer to the Bedside Swallow Evaluation in the EMR. Please note, silent aspiration cannot be ruled out at bedside.
[2024-07-02] MEDS: ATORVASTATIN 10 MG TABLET PO (13:41)
[2024-07-02] MEDS: FUROSEMIDE 40 MG TABLET PO (13:41)
[2024-07-02] MEDS: allopurinoL 100 MG TABLET PO (13:41)
[2024-07-02] MEDS: cilostazoL 100 MG TABLET PO (13:41)
--- NOTE | 2024-07-02 15:00 | PC.NURSE ---
at 1430, pt's spouse informed this RN that the pt requires straight catheterization at home due to urinary retention. This RN palpated pt's abdomen, bladder distended.This RN bladder scanned the pt's abdomen, a volume of 732ml was shown; at 1445 the pt was straight cath'd, with an output of 600mL.
[2024-07-02] MEDS: levETIRAcetam 1000MG/NACL100ML 1,000 MG/100 ML BAG 400 MG IVPB (20:10)
[2024-07-03] VITALS (11 sets, daily range): BP systolic 104–155; BP diastolic 56–77; PULSE 84–128; RESP 16–20; TEMP 36.6–37; O2SAT 96–99
[2024-07-03 08:03] LABS: Hematocrit 30.4 % (42.0-52.0); Hemoglobin 9.8 g/dL (14.0-18.0); Mean Corpuscular HGB Conc 32.2 g/dl (32-36); Mean Corpuscular Volume 99.3 fl (80-100); Mean Platelet Volume 9.1 fl (7.4-10.4); Platelet Count Result 206 k/mm3 (150-375); Red Blood Count 3.06 M/mm3 (4.6-6.20); Red Cell Distribution Width 13.9 % (11.5-14.5); White Blood Count 9.3 K/mm3 (4.5-10.0)
[2024-07-03 08:14] LABS: Alanine Aminotransferase 31 U/L (6-50); Albumin Level 3.6 g/dL (3.5-5.1); Alkaline Phosphatase 82 U/L (38-126); Anion Gap 8 mmol/L (4-12); Aspartate Amino Transferase 42 U/L (17-59); Bilirubin,Total 0.5 mg/dL (0.2-1.3); Blood Urea Nitrogen 27 mg/dL (9-20); Carbon Dioxide 27 mmol/L (22-30); Chloride 104 mmol/L (98-107); Estimated CRCL calculation 25 ml/min; Estimated Glomerular Filt Rate 29; Glucose 94 mg/dL (65-110); Potassium 3.3 mmol/L (3.4-5.0); Sodium 139 mmol/L (137-145)
[2024-07-03] MEDS: ESCITALOPRAM OXALATE 10 MG TABLET 20 MG PO (08:31)
[2024-07-03] MEDS: ASPIRIN 81 MG CHEWABLE TABLET PO (08:31)
[2024-07-03] MEDS: FUROSEMIDE 40 MG TABLET PO (08:31)
[2024-07-03] MEDS: allopurinoL 100 MG TABLET PO (08:32)
[2024-07-03] MEDS: METOPROLOL TARTRATE 50 MG TAB 100 MG PO (08:32)
[2024-07-03] MEDS: cilostazoL 100 MG TABLET PO (08:32)
[2024-07-03] MEDS: ATORVASTATIN 10 MG TABLET PO (08:32)
[2024-07-03] MEDS: levETIRAcetam 1000MG/NACL100ML 1,000 MG/100 ML BAG 400 MG IVPB (09:13)
[2024-07-03] MEDS: POTASSIUM CHLORIDE 20 MEQ PACKET (FOR LIQUID) 40 MEQ PO (11:34)
--- NOTE | 2024-07-03 13:59 | PM.IMPN ---
Progress Note: A&P Assessment and Plan (1) New onset seizure: Code(s): R56.9 - Unspecified convulsions Status: Acute (2) Hypertension: Qualifiers: Hypertension type: primary hypertension Qualified Code(s): I10 - Essential (primary) hypertension Code(s): I10 - Essential (primary) hypertension Status: Chronic (3) Hyperlipidemia: Qualifiers: Hyperlipidemia type: mixed hyperlipidemia Qualified Code(s): E78.2 - Mixed hyperlipidemia Code(s): E78.5 - Hyperlipidemia, unspecified Status: Chronic (4) Iron deficiency anemia: Code(s): D50.9 - Iron deficiency anemia, unspecified Status: Acute (5) Atrial fibrillation with rapid ventricular response: Code(s): I48.91 - Unspecified atrial fibrillation Status: Acute (6) Acute UTI: Code(s): N39.0 - Urinary tract infection, site not specified Status: Acute Plan #Seizures Witnessed seizure Provoking factor possible UTI Labs and imaging reviewed Currently not on any antiseizure medication Loaded with 1.5 Keppra at ED Since started Keppra 1 1 g b.i.d. 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 q.d. -not on anticoagulation due to Crohn's disease anemia -not a candidate for Watchman device Subjective Date/time seen: 07/03/24 13:59 Interval history: Patient is more communicative today. Patient's was present for as mentioned reluctant to continue Keppra. Would wait until neurologist recommendation. For now she agrees to continue Keppra. Patient has a UTI and AFib but not on Ac due to his chronic anemia due to Crohn's disease. Review of Systems Review of Systems: ROS unobtainable: Yes unobtainable due to medical condition and unobtainable due to mental status Exam Narrative: GENERAL: Postictal appearance, awake and alert to the voice, response to painful and verbal stimuli, purposely moving in all extremities., not verbalizing at this time HEAD: [Normocephalic, atraumatic.] EYES: [PERRLA and EOMI.] ENT: Nares clear, no rhinorrhea or epistaxis. Mucous membranes moist. Lower lip anteriorly in the right side does have a small laceration with no active bleeding. Chronically missing dentition noted. NECK: Supple. CHEST: [Clear to auscultation. No respiratory distress.] HEART: Slightly irregular pulse, warm extremities. No murmur heard. [Normal peripheral pulses.] ABDOMEN: [Soft, nondistended], [nontender], [No rigidity or guarding] EXTREMITIES: Normal range of motion. [No edema.] SKIN: Warm, dry, no rash. NEURO: Alert to name, purposeful movements in all extremities with no obvious focal deficits, postictal in appearance, slowly recovering function throughout examination. Redirectable Objective Data Vital Signs Vital Signs: Vital Signs - 24 hr 07/02/24 14:00 07/02/24 16:02 07/02/24 20:00 Temperature 98.0 F 99.3 F Pulse Rate 100 100 106 H Respiratory Rate 16 20 Blood Pressure 132/68 138/79 Pulse Oximetry 100 98 Oxygen Delivery Fraction of Inspired Oxygen 07/02/24 20:00 07/02/24 20:00 07/03/24 00:00 Temperature Pulse Rate 111 H 124 H Respiratory Rate Blood Pressure Pulse Oximetry Oxygen Delivery Room Air Fraction of Inspired Oxygen 07/03/24 04:00 07/03/24 05:35 07/03/24 08:32 Temperature 97.8 F Pulse Rate 120 H 128 H 112 H Respiratory Rate 20 Blood Pressure 155/77 H Pulse Oximetry 99 Oxygen Delivery Fraction of Inspired Oxygen 07/03/24 08:48 Temperature Pulse Rate Respiratory Rate Blood Pressure Pulse Oximetry 99 Oxygen Delivery Room Air Fraction of Inspired Oxygen 21 Intake/Output Intake/Output: Intake & Output 06/30/24 07/01/24 07/02/24 07/03/24 23:59 23:59 23:59 23:59 Intake Total 1730 690 Output Total 1200 1800 Balance 530 -1110
--- NOTE | 2024-07-03 19:08 | WPDNEURCNPN ---
Assessment and Plan Assessment and plan (1) New onset seizure: Code(s): R56.9 - Unspecified convulsions Status: Acute Assessment and Plan: In fact this will be considered 2nd spell since the 1st 1 occurred 3 years ago and was even more prolonged in early hours of the morning. He has not been investigated or treated at that time. CT scan of brain without contrast did not show any significant abnormalities. I would suggest an MRI of the brain and EEG and also carotid Doppler study. (2) Crohn's disease: Qualifiers: Gastrointestinal tract location: unspecified location Digestive disease complication type: without complication Qualified Code(s): K50.90 - Crohn's disease, unspecified, without complications Code(s): K50.90 - Crohn's disease, unspecified, without complications Status: Chronic (3) Chronic kidney disease, stage 3: Code(s): N18.30 - Chronic kidney disease, stage 3 unspecified Status: Chronic (4) Benign prostatic hyperplasia: Qualifiers: Lower urinary tract symptom presence: symptoms present Lower urinary tract symptom detail: urinary obstruction Qualified Code(s): N40.1 - Benign prostatic hyperplasia with lower urinary tract symptoms; N13.8 - Other obstructive and reflux uropathy Code(s): N40.0 - Benign prostatic hyperplasia without lower urinary tract symptoms Status: Chronic (5) Atrial fibrillation with rapid ventricular response: Code(s): I48.91 - Unspecified atrial fibrillation Status: Acute (6) Vascular dementia: Qualifiers: Dementia severity: unspecified severity Dementia behavioral or psychological symptom: without behavioral, psychotic, or mood disturbance or anxiety Qualified Code(s): F01.50 - Vascular dementia, unspecified severity, without behavioral disturbance, psychotic disturbance, mood disturbance, and anxiety Code(s): F01.50 - Vascular dementia, unspecified severity, without behavioral disturbance, psychotic disturbance, mood disturbance, and anxiety Status: Chronic Assessment and Plan: I spoke to his about dementia ago briefly and told her that this may require some looking into if she wishes to. It does not appear that he is on any medications for dementia. Plan His is somewhat reluctant to give him in any medications including Keppra. We can try Keppra XR 1500 mg given at bedtime. It may not be available on the formulary and hence we can give Keppra 750 mg twice a day for now upon discharge give him a prescription for XR 752 tablets at bedtime and hopefully the agree with him. I also made her aware that the many many options seizure medications and there is any problem we can find something else for him. He will require neurological follow-up both from the point of view seizures and dementia. Consult date: 07/03/24 HPI: Vitaly Oreilly is a 79 year old male with history of seizure spell early in the morning witnessed by his was present at the time of the evaluation. The spell presented certainly where he had some twitching of the facial muscles and also bit the lip. It lasted for 1 or 2 minutes. He was postictal when he arrived in emergency room. EMS came in to find the patient only responsive to pain stimuli was postictal. Patient slowly began to gain consciousness. He had similar spell 3 years ago however at that time this was not investigated or treated. that this was in fact also in the assistant counsel and was longer and he did bite his tongue. Patient carries diagnosis of atrial fibrillation and chronic kidney disease and a vascular dementia. He was seeing somebody for the dementia on to 6 years ago however there have not been back to see any body after that. It does not appear that he is on any of the medications for dementia at this time. Review of Systems Review of Systems: Patient himself is unable to communicate well because he lost his heari
[2024-07-03 20:30] LABS: Vitamin D 25 Hydroxy 23.2 ng/mL
[2024-07-03] MEDS: levETIRAcetam Tablet 250 MG, levETIRAcetam Tablet 500 MG 750 MG PO (21:23)
[2024-07-04] VITALS (9 sets, daily range): BP systolic 110–153; BP diastolic 62–91; PULSE 55–123; RESP 18–20; TEMP 35.9–36.5; O2SAT 97–100
[2024-07-04 06:40] LABS: Hematocrit 31.8 % (42.0-52.0); Mean Corpuscular HGB Conc 31.4 g/dl (32-36); Mean Corpuscular Hemoglobin 32.1 pg (26-34); Mean Corpuscular Volume 101.9 fl (80-100); Mean Platelet Volume 9.4 fl (7.4-10.4); Platelet Count Result 210 k/mm3 (150-375); Red Blood Count 3.12 M/mm3 (4.6-6.20); Red Cell Distribution Width 13.9 % (11.5-14.5); White Blood Count 8.7 K/mm3 (4.5-10.0)
[2024-07-04 06:59] LABS: Alanine Aminotransferase 32 U/L (6-50); Albumin Level 3.6 g/dL (3.5-5.1); Alkaline Phosphatase 82 U/L (38-126); Anion Gap 10 mmol/L (4-12); Aspartate Amino Transferase 40 U/L (17-59); Bilirubin,Total 0.5 mg/dL (0.2-1.3); Blood Urea Nitrogen 24 mg/dL (9-20); Calcium 8.9 mg/dL (8.4-10.2); Carbon Dioxide 23 mmol/L (22-30); Chloride 105 mmol/L (98-107); Estimated CRCL calculation 26 ml/min; Estimated Glomerular Filt Rate 31; Glucose 94 mg/dL (65-110); Potassium 3.8 mmol/L (3.4-5.0); Sodium 138 mmol/L (137-145)
[2024-07-04] MEDS: levETIRAcetam Tablet 250 MG, levETIRAcetam Tablet 500 MG 750 MG PO ×2 (08:48→20:02)
[2024-07-04] MEDS: FUROSEMIDE 40 MG TABLET PO (08:48)
[2024-07-04] MEDS: METOPROLOL TARTRATE 50 MG TAB 100 MG PO (08:48)
[2024-07-04] MEDS: ATORVASTATIN 10 MG TABLET PO (08:49)
[2024-07-04] MEDS: ESCITALOPRAM OXALATE 10 MG TABLET 20 MG PO (08:49)
[2024-07-04] MEDS: allopurinoL 100 MG TABLET PO (08:49)
[2024-07-04] MEDS: ASPIRIN 81 MG CHEWABLE TABLET PO (08:49)
[2024-07-04] MEDS: cilostazoL 100 MG TABLET PO (08:49)
--- NOTE | 2024-07-04 12:13 | PM.IMPN ---
Progress Note: A&P Assessment and Plan (1) New onset seizure: Code(s): R56.9 - Unspecified convulsions Status: Acute (2) Hypertension: Qualifiers: Hypertension type: primary hypertension Qualified Code(s): I10 - Essential (primary) hypertension Code(s): I10 - Essential (primary) hypertension Status: Chronic (3) Hyperlipidemia: Qualifiers: Hyperlipidemia type: mixed hyperlipidemia Qualified Code(s): E78.2 - Mixed hyperlipidemia Code(s): E78.5 - Hyperlipidemia, unspecified Status: Chronic (4) Iron deficiency anemia: Code(s): D50.9 - Iron deficiency anemia, unspecified Status: Acute (5) Atrial fibrillation with rapid ventricular response: Code(s): I48.91 - Unspecified atrial fibrillation Status: Acute (6) Acute UTI: Code(s): N39.0 - Urinary tract infection, site not specified Status: Acute Plan #Seizures Witnessed seizure Provoking factor possible UTI Labs and imaging reviewed Currently not on any antiseizure medication Loaded with 1.5 Keppra at ED Since started Keppra 1 1 g b.i.d. Neurology evaluated Ordered MRI and EEG Ultrasound of the carotid artery no significant findings other than less than 50% stenosis. 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 q.d. -not on anticoagulation due to Crohn's disease anemia -not a candidate for Watchman device Subjective Date/time seen: 07/04/24 12:13 Interval history: Patient underwent carotid Doppler study which shows less than 50% in the right internal and left internal carotid artery. Patient was evaluated by the neurologist who advised EEG and MRI of the brain. Review of Systems Review of Systems: ROS unobtainable: Yes unobtainable due to medical condition and unobtainable due to mental status Exam Narrative: GENERAL: Postictal appearance, awake and alert to the voice, response to painful and verbal stimuli, purposely moving in all extremities., not verbalizing at this time HEAD: [Normocephalic, atraumatic.] EYES: [PERRLA and EOMI.] ENT: Nares clear, no rhinorrhea or epistaxis. Mucous membranes moist. Lower lip anteriorly in the right side does have a small laceration with no active bleeding. Chronically missing dentition noted. NECK: Supple. CHEST: [Clear to auscultation. No respiratory distress.] HEART: Slightly irregular pulse, warm extremities. No murmur heard. [Normal peripheral pulses.] ABDOMEN: [Soft, nondistended], [nontender], [No rigidity or guarding] EXTREMITIES: Normal range of motion. [No edema.] SKIN: Warm, dry, no rash. NEURO: Alert to name, purposeful movements in all extremities with no obvious focal deficits, postictal in appearance, slowly recovering function throughout examination. Redirectable Objective Data Vital Signs Vital Signs: Vital Signs - 24 hr 07/03/24 14:00 07/03/24 16:02 07/03/24 20:00 Temperature 97.8 F Pulse Rate 93 86 Respiratory Rate 16 Blood Pressure 104/56 L Pulse Oximetry 96 Oxygen Delivery Room Air 07/03/24 20:35 07/03/24 20:00 07/04/24 00:00 Temperature 98.6 F Pulse Rate 92 93 93 Respiratory Rate 20 Blood Pressure 127/77 Pulse Oximetry 99 Oxygen Delivery 07/04/24 04:00 07/04/24 05:35 07/04/24 08:48 Temperature 96.6 F L Pulse Rate 99 92 123 H Respiratory Rate 20 Blood Pressure 153/91 H Pulse Oximetry 99 Oxygen Delivery Intake/Output Intake/Output: Intake & Output 07/01/24 07/02/24 07/03/24 07/04/24 23:59 23:59 23:59 23:59 Intake Total 1730 1720 710 Output Total 1200 2751 600 Balance 530 -1031 110 Meds/Results Medications: Active Medications Generic Name Dose Route Start Last Admin Trade Name Freq PRN Reason Stop Dose Admin Allopurinol 100 mg 07/02/24 11:00 07/04/24 08:49 Allopurinol 1
[2024-07-05] VITALS (9 sets, daily range): BP systolic 106–144; BP diastolic 48–71; PULSE 56–102; RESP 18–20; TEMP 36.3–36.7; O2SAT 100
[2024-07-05] MEDS: ASPIRIN 81 MG CHEWABLE TABLET PO (08:44)
[2024-07-05] MEDS: METOPROLOL TARTRATE 50 MG TAB 100 MG PO (08:44)
[2024-07-05] MEDS: levETIRAcetam Tablet 250 MG, levETIRAcetam Tablet 500 MG 750 MG PO ×2 (08:47→21:05)
[2024-07-05] MEDS: FUROSEMIDE 40 MG TABLET PO (08:47)
[2024-07-05] MEDS: ATORVASTATIN 10 MG TABLET PO (08:47)
[2024-07-05] MEDS: allopurinoL 100 MG TABLET PO (08:47)
[2024-07-05] MEDS: cilostazoL 100 MG TABLET PO (08:47)
[2024-07-05] MEDS: ESCITALOPRAM OXALATE 10 MG TABLET 20 MG PO (08:47)
--- NOTE | 2024-07-05 12:26 | WPDNEUROPN ---
Progress Note: A&P Assessment and Plan (1) Crohn's disease: Qualifiers: Gastrointestinal tract location: unspecified location Digestive disease complication type: without complication Qualified Code(s): K50.90 - Crohn's disease, unspecified, without complications Code(s): K50.90 - Crohn's disease, unspecified, without complications Status: Chronic (2) Chronic kidney disease, stage 3: Code(s): N18.30 - Chronic kidney disease, stage 3 unspecified Status: Chronic (3) Benign prostatic hyperplasia: Qualifiers: Lower urinary tract symptom presence: symptoms present Lower urinary tract symptom detail: urinary obstruction Qualified Code(s): N40.1 - Benign prostatic hyperplasia with lower urinary tract symptoms; N13.8 - Other obstructive and reflux uropathy Code(s): N40.0 - Benign prostatic hyperplasia without lower urinary tract symptoms Status: Chronic (4) Seizure disorder: Code(s): G40.909 - Epilepsy, unspecified, not intractable, without status epilepticus Status: Acute (5) Atrial fibrillation with rapid ventricular response: Code(s): I48.91 - Unspecified atrial fibrillation Status: Acute (6) Vascular dementia: Qualifiers: Dementia severity: unspecified severity Dementia behavioral or psychological symptom: without behavioral, psychotic, or mood disturbance or anxiety Qualified Code(s): F01.50 - Vascular dementia, unspecified severity, without behavioral disturbance, psychotic disturbance, mood disturbance, and anxiety Code(s): F01.50 - Vascular dementia, unspecified severity, without behavioral disturbance, psychotic disturbance, mood disturbance, and anxiety Status: Chronic Plan Patient should continue with the Keppra 750 mg twice a day. I will be glad to see him office to go over further evaluation workup for dementia and his would like to follow it through. I told her that there have been some recent advances in our understanding and treatment for Alzheimer's disease but 1st we have to do some investigations to stab lists a diagnosis and she is willing to look into these. History follow-up can be arranged after discharge from the hospital. 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 Patient's was present. MRI of the brain was reviewed which shows some chronic vascular changes. These did not appear excessive for his age. Carotid Doppler studies showed less than 50% narrowing in both carotid arteries. Patient's told me that about 5 or 6 years with a upon to [facility] where she was told that her today had dementia and there is not much that can be done. Objective Data Vital Signs Vital Signs: Vital Signs - 24 hr 07/04/24 14:00 07/04/24 16:03 07/04/24 20:38 Temperature 97.7 F 97.6 F Pulse Rate 85 85 55 L Respiratory Rate 18 18 Blood Pressure 110/62 132/76 Pulse Oximetry 97 100 Oxygen Delivery 07/04/24 20:00 07/04/24 20:00 07/05/24 00:00 Temperature Pulse Rate 95 99 Respiratory Rate Blood Pressure Pulse Oximetry Oxygen Delivery Room Air 07/05/24 05:32 07/05/24 04:00 07/05/24 08:44 Temperature 97.6 F Pulse Rate 102 H 99 56 L Respiratory Rate 20 Blood Pressure 144/68 H Pulse Oximetry 100 Oxygen Delivery 07/05/24 08:00 Temperature Pulse Rate 99 Respiratory Rate Blood Pressure Pulse Oximetry Oxygen Delivery Intake/Output Intake/Output: Intake & Output 07/02/24 07/03/24 07/04/24 07/05/24 23:59 23:59 23:59 23:59 Intake Total 1730 1720 1420 530 Output Total 1200 4545 2502 1350 Balance 530 -1031 -1083 -820 Meds/Results Medications: Active Medications Generic Name Dose Route Start Last Admin Trade Name Freq PRN Reason Stop Dose Admin Allopurino
--- NOTE | 2024-07-05 13:23 | PM.IMPN ---
Progress Note: A&P Assessment and Plan (1) New onset seizure: Code(s): R56.9 - Unspecified convulsions Status: Acute (2) Hypertension: Qualifiers: Hypertension type: primary hypertension Qualified Code(s): I10 - Essential (primary) hypertension Code(s): I10 - Essential (primary) hypertension Status: Chronic (3) Hyperlipidemia: Qualifiers: Hyperlipidemia type: mixed hyperlipidemia Qualified Code(s): E78.2 - Mixed hyperlipidemia Code(s): E78.5 - Hyperlipidemia, unspecified Status: Chronic (4) Iron deficiency anemia: Code(s): D50.9 - Iron deficiency anemia, unspecified Status: Acute (5) Atrial fibrillation with rapid ventricular response: Code(s): I48.91 - Unspecified atrial fibrillation Status: Acute (6) Acute UTI: Code(s): N39.0 - Urinary tract infection, site not specified Status: Acute Plan 79-year-old male who presented with witnessed seizure at home. Patient's woke up with patient shaking next to him. He was unconscious and did bit his lip and was bleeding with the right side of his mouth. EMS was called. Patient was only responsive to painful stimuli at that time. But slowly be and regaining consciousness. He has history of underlying dementia at baseline. No evidence of head trauma. He had previous history of seizure 3 years back and was not on anti seizure medication. He was brought to the ED. His vitals were stable except for mild tachycardia on presentation. He was loaded with 1.5 g of IV Keppra followed by 750 mg twice daily. Laboratory evaluation showed mild anemia at 10.1 WBC of 7.8. Creatinine of 2.3. CT head was unremarkable. Chest x-ray with minimal pleural effusion with patchy right basilar airspace disease correlate for pneumonia versus developing pulmonary edema. Urinalysis showed evidence UTI. Neurology consulted. He was also started on IV ceftriaxone for UTI. MRI brain with chronic nonspecific white matter cerebral disease and point time disease which likely represent chronic small vessel ischemic disease. Carotid Doppler with less than 50% stenosis in both right and left internal carotid artery. Will order EEG. Neurology on board. Seizure precautions. Will order PT OT CKD stage 3/4 Urine culture with Enterobacter cloacae/asburia. Will switch to fluoroquinolone. QTC 444 Crohn's disease Atrial fibrillation on metoprolol not on anticoagulation due to anemia. DVT prophylaxis SCDs Code status full code Subjective Date/time seen: 07/05/24 13:23 Interval history: No overnight events. Patient slowly respond but improving. Family at bedside discussed with her. Review of Systems Review of Systems: All systems reviewed & are unremarkable except as noted in HPI and below Exam Narrative: GENERAL: Awake and alert and conversant oriented x2 HEAD: [Normocephalic, atraumatic.] EYES: [PERRLA and EOMI.] ENT: Nares clear, no rhinorrhea or epistaxis. Mucous membranes moist. Lower lip anteriorly in the right side does have a small laceration with no active bleeding. Chronically missing dentition noted. NECK: Supple. CHEST: [Clear to auscultation. No respiratory distress.] HEART: Slightly irregular pulse, warm extremities. No murmur heard. [Normal peripheral pulses.] ABDOMEN: [Soft, nondistended], [nontender], [No rigidity or guarding] EXTREMITIES: Normal range of motion. [No edema.] SKIN: Warm, dry, no rash. NEURO: Alert and oriented x2 slow respond Objective Data Vital Signs Vital Signs: Vital Signs - 24 hr 07/04/24 14:00 07/04/24 16:03 07/04/24 20:38 Temperature 97.7 F 97.6 F Pulse Rate 85 85 55 L Respiratory Rate 18 18 Blood Pressure 110/62 132/76 Pulse Oximetry 97 100 Oxygen Delivery 07/04/24 20:00 07/04/24 20:00 07/05/24 00:00 Temperature Pulse Rate 95 99 Respiratory Rate Blood Pressure Pulse Oximetry Oxygen Delivery Room Air
--- NOTE | 2024-07-05 15:30 | PCSTNOTE ---
Please refer to the Bedside Swallow Evaluation in the EMR. Please note, silent aspiration cannot be ruled out at bedside.
[2024-07-05] MEDS: LOPERAMIDE HCL 2 MG CAPSULE PO (17:15)
[2024-07-05] MEDS: CIPROFLOXACIN 500 MG TAB PO (21:05)
[2024-07-06] VITALS: BP 160/83; PULSE 101; PULSE 98; RESP 22; TEMP 36.4; O2SAT 100
[2024-07-06 04:00] VITALS: BP 163/87; PULSE 87; PULSE 94; RESP 12; TEMP 36.5; O2SAT 100
[2024-07-06 08:00] VITALS: BP 138/88; PULSE 107; PULSE 68; RESP 18; TEMP 36.2; O2SAT 100
[2024-07-06] MEDS: levETIRAcetam Tablet 250 MG, levETIRAcetam Tablet 500 MG 750 MG PO (08:09)
[2024-07-06] MEDS: FUROSEMIDE 40 MG TABLET PO (08:09)
[2024-07-06 08:10] VITALS: PULSE 99
[2024-07-06] MEDS: ATORVASTATIN 10 MG TABLET PO (08:10)
[2024-07-06] MEDS: ESCITALOPRAM OXALATE 10 MG TABLET 20 MG PO (08:10)
[2024-07-06] MEDS: METOPROLOL TARTRATE 50 MG TAB 100 MG PO (08:10)
[2024-07-06] MEDS: cilostazoL 100 MG TABLET PO (08:10)
[2024-07-06] MEDS: allopurinoL 100 MG TABLET PO (08:13)
[2024-07-06] MEDS: ASPIRIN 81 MG CHEWABLE TABLET PO (08:13)
[2024-07-06 12:00] VITALS: BP 112/54; PULSE 78; PULSE 81; RESP 18; TEMP 36.7; O2SAT 98
[2024-07-06 16:00] VITALS: BP 110/45; PULSE 68; PULSE 90; RESP 18; TEMP 36.7; O2SAT 100
--- NOTE | 2024-07-06 16:48 | PM.DS ---
DS: Admitting Diagnosis Discharge Date 07/06/24 Admitting Diagnosis Seizure DS: Discharge Diagnosis Discharge Diagnosis (1) New onset seizure: Code(s): R56.9 - Unspecified convulsions Status: Acute DS: Summary Hospital Course Reason for hospitalization: seizure new onset Hospital Course: Patient is a 79-year-old male with past medical history of paroxysmal atrial fibrillation, CKD3b, anemia, Crohn's, vascular dementia who presents to ED after seizure. This is patient's 2nd episode of a seizure. He had tonic-clonic movement with some lip biting. Was postictal when EMS picked him up. Of note patient had a seizure in the once before and at that time was associated with a UTI about 2 years ago. Patient recently seen [facility] 05/27-05/31 for UTI, 05/13-05/18 with Klebsiella UTI. He was started on IV Rocephin for his UTI this hospitalization, with Enterobacter cloacae/asburia growing he was switched to ciprofloxacin. He will be discharged on 6 more days of ciprofloxacin to complete 1 week of antibiotic. It is possible that UTIs triggered his seizure however with the recurrence of seizure (2nd episode in 2 years), neurology consult is recommending continuing seizure prophylaxis with Keppra 750mg BID. Patient had negative carotid duplex less than 50% stenosis bilaterally. Brain MRI showed chronic microvascular changes. EEG did was done on 07/05, awaiting the read. At this time, etiology of seizure is unclear. Neurologist Dr. Bearden would like to follow-up with patient in 2 weeks for ongoing workup of vascular dementia as well as follow-up for seizure. Patient is following speech lang path therapist for paroxysmal atrial fibrillation. at bedside states that medications have been recently adjusted discontinuing Entresto, decreasing metoprolol to 100 mg daily. He was monitored on the Keppra with no reoccurrence of seizure. At time of discharge patient's labs are stable, vitals stable, patient is stable for discharge home. Rx for Keppra and ciprofloxacin given, and refill for metoprolol. Patient's family understand agree with plan. Status at Discharge Cognitive/behavioral status at discharge: baseline Time Spent with Patient Time attestation: Total time spent providing and/or coordinating discharge services: 35 minutes Exam Narrative: - GENERAL: Pleasant male in no acute distress. Well-nourished. - EYES: EOMI. Anicteric. - HENT: Moist mucous membranes. - LUNGS: Clear to auscultation bilaterally, no wheezing, rhonchi, or rales. - CARDIOVASCULAR: Regular rate and rhythm. No murmur. No JVD. - ABDOMEN: Soft, non-tender and non-distended. No palpable masses. - EXTREMITIES: No edema. Peripheral pulses 2+. Non-tender. - NEUROLOGIC: No focal neurological deficits. CN II-XII grossly intact. - PSYCHIATRIC: Awake, Alert and oriented x 3. Appropriate mood and affect. - SKIN: No rashes or lesions. Warm. - LYMPH: No cervical lymphadenopathy. DS: Data Data Completed and Pending Pending studies at discharge: EEG 07/05 Imaging Radiologist's impression: CT head 07/02/2024 Impression: No intracranial hemorrhage, mass, or acute infarct. Atrophy and chronic white matter changes, as above. CXR 07/02/24 Impression: Possible minimal pleural effusions with patchy right basilar airspace disease. Correlate for pneumonia versus developing pulmonary edema. Brain MRI 07/04/24 IMPRESSION: 1. Moderate nonspecific cerebral white matter disease and pontine disease, which likely represents chronic small vessel ischemic disease. Carotid duplex 07/04/24 IMPRESSION: 1. <50% stenosis in the right internal carotid artery. 2. <50% stenosis in the left internal carotid artery. EEG 07/05: pending Discharge Plan Discharge Attending physician on discharge: Keegan Blair Consulting providers: Oscar Bearden Discharging Clinician: Keegan Blair Anticipated Discharge Date/Time: 07/06/24 16:39 Patient Disposition: Home, [place]
[2024-07-07 10:03] LABS: Methylmalonic Acid 575 nmol/L (69-390)
--- NOTE | 2024-07-08 10:43 | NEURO_ITS ---
This report was moved to the correct visit on 07/08/2024. The original report was signed by Oscar Bearden MD on 07/08/241042. Neurology EEG Report General Information Date of Study: 07/05/24 TEST Electroencephalogram DIAGNOSIS seizure disorder CONDITION OF RECORDING bedside recording EEG NUMBER [id number] CLINICAL HISTORY New onset seizure disorder EEG DESCRIPTION The background activity consists of predominant theta activity at 5-6 hertz with an amplitude of 15-30 microvolts. This appears poorly organized. There is no significant anteroposterior gradient. Patient appears drowsy throughout the recording. Hyperventilation or photic stimulation were not performed. IMPRESSION This is an abnormal EEG due to presence of moderate diffuse background slowing suggestive of generalized encephalopathy such as may be seen with bihemispheric lesions. No focal or paroxysmal epileptiform abnormality was seen. This report may have been done utilizing a voice recognition system. Attempts have been made to correct errors. However, there may be uncorrected grammatical, spelling, and recognition errors present. Report Initialized date/time: Oscar Bearden MD 07/08/241042 Electronically signed by: Oscar Bearden MD 07/08/241042 [facility]
== END 2024-07-06 17:10 | disposition home or self-care (01) | DRG 101 ==
LOC: ANHED 07:02 → ANH3MEDSUR 07:08
PROVIDERS: General Practice; Psychiatry & Neurology Neurology; Admitting Provider General Practice; Emergency Provider Student in an Organized Health Care Education/Training Program; PCP Nurse Practitioner Family; Visit Provider Student in an Organized Health Care Education/Training Program
DX: R56.9 Unspecified convulsions (principal); N39.0 Urinary tract infection, site not specified; I13.0 Hypertensive heart and chronic kidney disease with heart failure and stage 1 through stage 4 chronic kidney disease, or unspecified chronic kidney disease; K50.90 Crohn's disease, unspecified, without complications; I42.9 Cardiomyopathy, unspecified; I50.9 Heart failure, unspecified; I25.10 Atherosclerotic heart disease of native coronary artery without angina pectoris; I48.0 Paroxysmal atrial fibrillation; I73.9 Peripheral vascular disease, unspecified; N18.30 Chronic kidney disease, stage 3 unspecified; E53.8 Deficiency of other specified B group vitamins; E78.5 Hyperlipidemia, unspecified; D50.9 Iron deficiency anemia, unspecified; N40.0 Benign prostatic hyperplasia without lower urinary tract symptoms; M19.90 Unspecified osteoarthritis, unspecified site; F32.A Depression, unspecified; F01.50 Vascular dementia, unspecified severity, without behavioral disturbance, psychotic disturbance, mood disturbance, and anxiety; Z79.82 Long term (current) use of aspirin; Z87.442 Personal history of urinary calculi; Z95.1 Presence of aortocoronary bypass graft; Z87.891 Personal history of nicotine dependence; B96.89 Other specified bacterial agents as the cause of diseases classified elsewhere
CPT/HCPCS: 36415; 70450; 70551; 71045; 80053; 81001; 82306; 82607; 82746; 83921; 84443; 85025; 85027; 85610; 85730; 87086; 87186; 92610; 93005; 93880; 95816; 96361; 96365; 99285; A9270; J0696; J1953; J7030

== ENCOUNTER 2024-07-07 10:51 | Inpatient (IN) | payer MEDICARE, SELFPAY ==
--- NOTE | ~2024-07-07 | XR_ITS ---
Clinical Indication: Fever PA and lateral views of the chest: Comparison: 07/02/2024 Findings: Small right pleural effusion present. Suspected COPD. Cardiomediastinal silhouette is stab le, status post CABG. Bones and soft tissues are unremarkable. Impression: Small right pleural effusion. Probable underlying COPD. Reviewed, dictated and finalized at location . Impression: Small right pleural effusion. Probable underlying COPD.
--- NOTE | ~2024-07-07 | CT_ITS ---
EXAMINATION: CT chest abdomen pelvis wo con DATE: 07/07/2024 16:32 INDICATION: Fever. Leukocytosis. TECHNIQUE: Computed tomography (CT) of the chest, abdomen, and pelvis was performed with 100 mL Omnip aque 350 intravenous contrast. Automated exposure control and iterative reconstruction technique were employed. The dose-length product was 692.99 mGy-cm. COMPARISON: CT abdomen and pelvis 11/07/2023 FINDINGS: CHEST CT: There are small pleural effusions, right worse than left. There is pleural thickening bilaterally. Th ere is a 3 mm nodule in right upper lobe, likely benign. There is peripheral rounded atelectasis in t he lower lobes. There is mild atelectasis in right middle lobe and lingula. There are centrilobular n odules in left lower lobe, consistent with mild pneumonia. Cardiomegaly is noted. There are coronary artery calcifications. There are changes of coronary artery bypass grafting. No pericardial effusion. There is widespread sclerosis of the bones. ABDOMEN/PELVIS CT: The liver demonstrates pneumobilia, likely secondary to sphincterotomy. There are changes of cholecys tectomy. The pancreas, spleen, and adrenal glands are normal. There is mild right hydronephrosis. The bladder is markedly distended. There are no dilated loops of bowel. The appendix is not visualized. There is calcified atherosclerosis of the aorta and many of the other arteries. There are no patholog ically enlarged lymph nodes. There is no free intraperitoneal fluid. There is widespread sclerosis of the bones. There is mild lumbar spondylosis. IMPRESSION: 1. Centrilobular nodules in left lung lower lobe, consistent with mild pneumonia. 2. Small pleural effusions with pleural thickening, likely exudates. 3. Mild right hydronephrosis, which may be secondary to the markedly distended bladder. 4. Widespread sclerosis of the bones again seen. The differential diagnosis includes metabolic abnorm ality, myelofibrosis, and metastatic disease. Reviewed, dictated and finalized at location A. IMPRESSION: 1. Centrilobular nodules in left lung lower lobe, consistent with mild pneumoni a. 2. Small pleural effusions with pleural thickening, likely exudates. 3. Mild right hydronephrosis, which may be secondary to the markedly distended bladder. 4. Widespread sclerosis of the bones again seen. The differential diagnosis inc ludes metabolic abnormality, myelofibrosis, and metastatic disease.
[2024-07-07 11:00] VITALS: BP 110/76; PULSE 76; RESP 16; TEMP 36.4; O2SAT 92
--- NOTE | 2024-07-07 12:09 | ED.GENADULT ---
HPI - General Adult General Chief complaint: Fever Stated complaint: fever Time Seen by Provider: 07/07/24 12:05 Source: patient and family Mode of arrival: ambulatory Limitations: dementia History of Present Illness HPI narrative: 79 years old white male came to the ED from home with his by private car. is telling me that patient was discharged from our facility 5:00 p.m. yesterday with a diagnosis of seizure and urinary tract infection. Patient was discharged 5 days after hospitalization, on Cipro. The is telling me that patient was dizzy and confused and unable to walk right at the time of discharge yesterday. His urologist advised the to take came back to the emergency room. Last Tylenol intake was 12 hours ago. In the ED no fever. Currently patient is asymptomatic, does not look in pain or distress. Patient would like to eat and drink at this time. PATIENT CURRENTLY ON CIPRO FOR UTI HISTORY OF ATRIAL FIBRILLATION NOT ON BLOOD THINNER BECAUSE OF HISTORY OF CROHN'S DISEASE. Related Data Home Medications Medication Instructions Recorded Confirmed Lactobacillus 1 cap PO DAILY 11/08/23 07/02/24 acidophilus-Bifidobac.animalis 2.5 billion cell capsule (Daily Probiotic) allopurinol 100 mg tablet 100 mg PO DAILY 11/08/23 07/02/24 aspirin 81 mg tablet 81 mg PO DAILY 11/08/23 07/02/24 atorvastatin 10 mg tablet 10 mg PO DAILY 11/08/23 07/02/24 cilostazol 100 mg tablet 100 mg PO DAILY 11/08/23 07/02/24 coenzyme Q10 200 mg capsule (Co 200 mg PO DAILY 11/08/23 05/27/24 Q-10) escitalopram oxalate 20 mg tablet 20 mg PO DAILY 11/08/23 07/02/24 multivit with minerals-iron 18 1 tablet PO DAILY 11/08/23 07/02/24 mg-folic ac 400 mcg-vit K 25 mcg tablet (Adults Multivitamin) Folcaps [place]-3 1 cap PO BID 05/12/24 07/02/24 fluticasone propionate 50 1 spray intranasal DAILY 05/12/24 07/02/24 mcg/actuation nasal spray,suspension furosemide 40 mg tablet 40 mg PO DAILY 05/12/24 07/02/24 cyanocobalamin (vitamin B-12) 1,000 mcg IM MONTHLY 07/02/24 07/02/24 1,000 mcg/mL injection solution Allergies Allergy/AdvReac Type Severity Reaction Status Date / Time No Known Allergies Allergy Verified 11/07/23 19:49 Review of Systems Review of Systems: All systems reviewed & are unremarkable except as noted in HPI and below PMFSH Past Medical History Medical History Abdominal pain Atrial fibrillation with RVR B12 deficiency Benign prostatic hyperplasia Cardiomyopathy Chronic anemia Chronic kidney disease, stage 3 Coronary artery disease Crohn's disease Depression Gout Heart failure Hyperlipidemia Hypertension Iron deficiency anemia Kidney stones Osteoarthritis Peripheral vascular disease Recurrent incisional hernia Seizures Vascular dementia Surgical History Surgical History History of bilateral cataract extraction History of cholecystectomy History of coronary artery bypass graft History of lithotripsy History of partial colectomy X2 for to bowel obstructions and fistula secondary to Crohn's disease. History of vascular surgery Bilateral lower extremity stents. S/P CABG (coronary artery bypass graft) Family History Family History Father Myocardial infarct Cerebrovascular accident Mother Breast cancer Sibling Crohn's disease Social History Social History Social History: Surrogate decision maker: Sarah Oreilly, spouse. Code status: Do not resuscitate. Smoking packs per day: 2 Smoking cigarettes per day: 40.0 Years smoked: 25 Smoking pack-years: 50.00 Smoking status: Former smoker Second hand tobacco smoke exposure: No Alcohol intake: never Substance use: never Substance use type: does not use Do You Feel Safe in your Home?: Yes Lack of [place]
[2024-07-07] MEDS: SODIUM CHLORIDE 0.9% IV 1,000 ML 999 ML IV CONT (12:15)
[2024-07-07 12:23] LABS: Basophils Percent Auto 0.2 % (0.2-1.2); Eosinophils Absolute Auto 0.2 K/mm3 (0-0.3); Eosinophils Percent Auto 1.2 % (0-4.4); Hematocrit 35.2 % (42.0-52.0); Hemoglobin 11.3 g/dL (14.0-18.0); Immature Granulocyte Absolute 0.11 K/mm3 (0.00-0.031); Immature Granulocyte Percent A 0.6 % (0-0.5); Lymphocytes Absolute Auto 0.55 K/mm3 (0.9-3.2); Lymphocytes Percent Auto 3.2 % (18.3-44.2); Mean Corpuscular HGB Conc 32.1 g/dl (32-36); Mean Corpuscular Hemoglobin 31.6 pg (26-34); Mean Corpuscular Volume 98.3 fl (80-100); Mean Platelet Volume 9.7 fl (7.4-10.4); Monocytes Percent Auto 5.5 % (2.6-8.5); Neutrophils Absolute Auto 15.5 K/mm3 (1.3-6.7); Neutrophils Percent Auto 89.3 % (45.5-73.1); Platelet Count Result 251 k/mm3 (150-375); Red Blood Count 3.58 M/mm3 (4.6-6.20); Red Cell Distribution Width 13.7 % (11.5-14.5); White Blood Count 17.3 K/mm3 (4.5-10.0)
[2024-07-07 12:30] VITALS: BP 111/76; PULSE 101; RESP 20; O2SAT 95
[2024-07-07 12:41] LABS: Alanine Aminotransferase 29 U/L (6-50); Albumin Level 4.2 g/dL (3.5-5.1); Alkaline Phosphatase 79 U/L (38-126); Anion Gap 12 mmol/L (4-12); Aspartate Amino Transferase 33 U/L (17-59); Bilirubin,Total 0.6 mg/dL (0.2-1.3); Blood Urea Nitrogen 28 mg/dL (9-20); CRP 3.8 mg/dL (<1.0); Carbon Dioxide 26 mmol/L (22-30); Chloride 99 mmol/L (98-107); Estimated CRCL calculation 21 ml/min; Estimated Glomerular Filt Rate 29; Glucose 157 mg/dL (65-110); Potassium 3.3 mmol/L (3.4-5.0); Sodium 137 mmol/L (137-145)
[2024-07-07 12:53] LABS: Lactic Acid Reflex 1.2 mmol/L (0.7-2.0)
[2024-07-07] MEDS: SODIUM CHLORIDE 0.9% IV 1,800 ML/1,800 ML ML 999 ML IV CONT (13:20)
[2024-07-07 15:26] LABS: Add Urine Microscopic? YES; Appearance Urine Cloudy (Clear); Bacteria Urine None Seen /hpf; Bilirubin Urine Negative (Negative); Blood Urine Trace (Negative); Color Urine Yellow (Yellow); Glucose Urine UA Negative (Negative); Ketones Urine Negative (Negative); Leukocyte Esterase Ur Trace LEU/UL (Negative); Need Manual Microscopic Reviewed; Nitrate Urine Negative (Negative); Protein Urine Negative (Negative); RBC Urine 0-2 /hpf (0-2); Specific Grav Ur 1.008 (1.001-1.035); Squamous Epithelial Cell Urine Moderate /hpf (Few); Urobilinogen Urine 0.2 mg/dL (<2.0); pH Urine 5.5 (5.0-9.0)
[2024-07-07 15:32] VITALS: BP 138/84; PULSE 107; RESP 21; O2SAT 100
--- NOTE | 2024-07-07 16:12 | ECG_ITS ---
Test Date: 2024-07-07 16:52:45 Measurements Intervals [place] Rate: 109 P: 0 MA: 0 QRS: 125 QRSD: 94 T: 140 QT: 355 QTc: 479 Interpretive Statements ATRIAL FIBRILLATION WITH RAPID VENTRICULAR RESPONSE WITH ABERRANT CONDUCTION OR VENTRICULAR PREMATURE COMPLEXES POSSIBLE RIGHT VENTRICULAR HYPERTROPHY [SOME/ALL OF: PROMINENT R IN V1, LATE TRANSITION, RAD, LUTHER, SSS] POSSIBLE LIMB LEAD REVERSAL Compared to ECG 07/02/2024 04:44:23 NO SIGNIFICANT CHANGES Electronically Signed On 07-08-2024 10:09:54 CDT by Senia Oleary M.D.
[2024-07-07] MEDS: POTASSIUM CHLORIDE 20 MEQ ER TABLET 40 MEQ PO (18:06)
[2024-07-07 18:24] LABS: Troponin I < 0.012 ng/mL (0.000-0.034)
[2024-07-07 18:31] VITALS: BP 141/94; PULSE 108; RESP 19; O2SAT 97
[2024-07-07 18:35] LABS: Influenza A QL RT-PCR Negative (Negative); Influenza B QL RT-PCR Negative (Negative); RSV RNA, RT-PCR Negative (Negative); SARS-CoV-2 RNA PCR Negative (Negative)
--- NOTE | 2024-07-07 18:43 | PC.NURSE ---
Patient self catheterizes at home and asks to do the same here. patient given supplies to complete. patient ambulated to the restroom with steady gate with family
[2024-07-07] MEDS: AZITHROMYCIN 500 MG/NS 250 ML 500 MG/250 ML BAG 250 MG IVPB (19:27)
[2024-07-07 19:37] LABS: Influenza A QL RT-PCR Negative (Negative); Influenza B QL RT-PCR Negative (Negative); RSV RNA, RT-PCR Negative (Negative); SARS-CoV-2 RNA PCR Negative (Negative)
--- NOTE | 2024-07-07 19:58 | ADMGEN ---
This patient, Vitaly Oreilly, was admitted to Medical Room 343-01. Patient/family oriented to hospital policies and general routines including ID bracelet, bed and alarms, visiting hours, pain management, procedures, bathroom and other care routines, personal items, smoking policy, room service/diet, and visiting hours. Information on how to activate the Rapid Response Team has been discussed. Patient/Family are encouraged to report perceived risks to care and to ask questions if they do not understand what they are told or what they should do.
[2024-07-07 20:00] VITALS: PULSE 113
[2024-07-07 21:23] VITALS: BMI 19.1
[2024-07-07 21:24] VITALS: BP 102/68; PULSE 99; RESP 16; TEMP 36.6; O2SAT 94
[2024-07-07] MEDS: SODIUM CHLORIDE 0.9% IV 1,000 ML 100 ML IV CONT (21:37)
--- NOTE | 2024-07-07 23:00 | PM.IMHP ---
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 The patient had been hospitalized at our facility for 5 days and had just been discharged from hospital on the evening of the . He had been discharged home on Cipro which was appropriate for his culture results. His called his urologist who instructed her to bring her to the emergency room. Patient had received Tylenol at home. In the ER the patient was afebrile. The patient does not provide any meaningful information. He tells me his name but is not oriented to time or situation. Even when I try to obtain information about his general interest the patient talks tangentially. On CT of the chest abdomen pelvis scan in the ER the patient had central lobar lung nodules lower lobe consistent with mild pneumonia, small pleural effusions and pleural thickening with likely exit age. Mild right hydronephrosis and markedly distended bladder. Patient also had widespread sclerotic lesions of the bone that had been noticed on prior imaging. Nursing staff in the ER log the patient to straight cath himself in the patient did this in the bathroom and was not observed. It is unclear how much urine he actually evacuated from his bladder. But when the patient arrived to the medical floor 3 hours later bladder scan demonstrated greater than 700 mL of urine and when Babin catheter was placed the patient had immediate return of 1.1 L. patient was not noted to be coughing and has remained afebrile since arrival to the hospital. Source of information is pack medical records ER report and nursing report. The patient is unable to provide any significant history. Review of Systems Review of Systems: ROS unobtainable: Yes unobtainable due to medical condition (Dementia) [facility] Past Medical History Medical History (Updated 07/08/24 @ 09:42 by Sydni Orta DO) Atrial fibrillation with RVR B12 deficiency Benign prostatic hyperplasia Cardiomyopathy Chronic anemia Chronic kidney disease, stage 3 Coronary artery disease Crohn's disease Depression Gout Heart failure Hyperlipidemia Hypertension Intermittent self-catheterization of bladder Iron deficiency anemia Kidney stones Osteoarthritis Peripheral vascular disease Recurrent incisional hernia Seizures Vascular dementia Surgical History Surgical History History of bilateral cataract extraction History of cholecystectomy History of coronary artery bypass graft History of lithotripsy History of partial colectomy X2 for to bowel obstructions and fistula secondary to Crohn's disease. History of vascular surgery Bilateral lower extremity stents. S/P CABG (coronary artery bypass graft) Family History Family History Father Myocardial infarct Cerebrovascular accident Mother Breast cancer Sibling Crohn's disease Social History Social History Social History: Surrogate decision maker: Sarah Oreilly, spouse. Code status: Do not resuscitate. Smoking packs per day: 2 Smoking cigarettes per day: 40.0 Years smoked: 25 Smoking pack-years: 50.00 Smoking status: Former smoker Second hand tobacco smoke exposure: No Alcohol intake: never Substance use: never Substance use type: does not use Do You Feel Safe in your Home?: Yes Lack of Transportation: No Lack of Food: Never True Current Housing: I Have Housing Concerned About Future Housing: No Difficulty
[2024-07-08] VITALS (11 sets, daily range): BP systolic 98–144; BP diastolic 53–77; PULSE 82–100; RESP 16–18; TEMP 36.1–36.9; O2SAT 98–100
[2024-07-08 08:41] LABS: Hematocrit 29.7 % (42.0-52.0); Hemoglobin 9.5 g/dL (14.0-18.0); Mean Corpuscular Hemoglobin 31.8 pg (26-34); Mean Corpuscular Volume 99.3 fl (80-100); Mean Platelet Volume 9.5 fl (7.4-10.4); Platelet Count Result 207 k/mm3 (150-375); Red Blood Count 2.99 M/mm3 (4.6-6.20); Red Cell Distribution Width 13.8 % (11.5-14.5); White Blood Count 13.5 K/mm3 (4.5-10.0)
--- NOTE | 2024-07-08 08:48 | PM.IMPN ---
Progress Note: A&P Assessment and Plan (1) Pneumonia: Qualifiers: Laterality: left Lung location: lower lobe of lung Pneumonia type: due to unspecified organism Qualified Code(s): J18.9 - Pneumonia, unspecified organism Code(s): J18.9 - Pneumonia, unspecified organism Status: Acute Assessment and Plan: Patient returns 1 day after hospital discharge with weakness and drowsiness. He reports a non-productive cough. CT of the chest shows centrilobular nodules in the left lower lung lobe consistent with mild pneumonia; small pleural effusions with pleural thickening. Leukocytosis 13.5 on admission but consistently downtrending. WBC on 07/07/24 was 17.3. Procalcitonin was 0.3. Lactic 1.2 Antibiotics switched to IV Levaquin to cover both pneumonia and UTI Pneumococcal and legionella urine antigen ordered, Igm ordered, mycoplasma Igm MRSA negative, COVID/Flu/RSV negative Blood cultures pending, sputum culture if able PEP, IS (2) Atrial fibrillation with rapid ventricular response: Code(s): I48.91 - Unspecified atrial fibrillation Status: Acute Assessment and Plan: Heart rate slightly elevated on arrival. Now after IVF and resumption of metoprolol heart rate is in the 90's. (3) Chronic kidney disease, stage 3: Qualifiers: Chronic kidney disease stage 3 subtype: stage 3b (GFR 30-44) Qualified Code(s): N18.32 - Chronic kidney disease, stage 3b Code(s): N18.30 - Chronic kidney disease, stage 3 unspecified Status: Chronic Assessment and Plan: The patient does have history of chronic BPH with chronic intermittent self catheterization. The patient still had large volume of urinary retention noted on CT scan and after the patient arrived to the floor he still had a large amount of urine remaining his bladder despite his self catheterization in the ER. The patient's says she has been helping him more recently with straight caths as she feels he has not been as 'clean' and particular with his practice as of late. Babin catheter placed in the ED due to retention. 1.1 L of urine returned. Retention and poor hygiene likely contributory to UTI Urine culture from 07/02 grew Enterobacter sensitive to fluoroquinolones. EOT 07/13 Flomax added (4) Vascular dementia: Qualifiers: Dementia behavioral or psychological symptom: with agitation Dementia severity: moderate Qualified Code(s): F01.B11 - Vascular dementia, moderate, with agitation Code(s): F01.50 - Vascular dementia, unspecified severity, without behavioral disturbance, psychotic disturbance, mood disturbance, and anxiety Status: Acute Assessment and Plan: Baseline dementia. He is orientated x 2 at baseline. Unable to tell me the year or month but still cognizant enough to deflect why he does not recall the year/month. Could have some delirium as well as he has recently been hospitalized. Subjective Date/time seen: 07/08/24 08:48 Interval history: Patient is resting in bed with at the bedside. He appears well. He is alert and orientated x 2 at baseline. His thinks he looks much better than yesterday. She reports that he had a fever of 101.6 the day after discharge. She reports that he has been having a non-productive cough. Today he is also having loose stools. Review of Systems Review of Systems: All systems reviewed & are unremarkable except as noted in HPI and below ROS unobtainable: Yes unobtainable due to medical condition (Dementia) Exam Narrative: General: appears comfortable, in no acute distress Respiratory: breathing is unlabored with even chest rise/fall, lungs are clear without wheezing, rhonchi, and crackles. Diminished to bilateral bases. Cardiovascular: Rate and rhythm regular, normal s1s2, no murmur Abdomen: Soft, round, non-tender, active bowel sounds Extremities: No cyanosis, edema, clubbing. Pulses 2/2 Neuro: A&O x 2 Skin: Warm,
[2024-07-08 08:52] LABS: Anion Gap 7 mmol/L (4-12); Blood Urea Nitrogen 24 mg/dL (9-20); Calcium 8.5 mg/dL (8.4-10.2); Carbon Dioxide 22 mmol/L (22-30); Chloride 106 mmol/L (98-107); Estimated CRCL calculation 25 ml/min; Estimated Glomerular Filt Rate 34; Glucose 87 mg/dL (65-110); Potassium 3.6 mmol/L (3.4-5.0); Sodium 135 mmol/L (137-145)
[2024-07-08 09:57] LABS: Procalcitonin 0.3 ng/mL
[2024-07-08] MEDS: levETIRAcetam 250 MG TABLET 750 MG PO ×2 (10:11→20:04)
[2024-07-08] MEDS: cilostazoL 100 MG TABLET PO (10:11)
[2024-07-08] MEDS: allopurinoL 100 MG TABLET PO (10:15)
[2024-07-08] MEDS: POTASSIUM CHLORIDE 20 MEQ ER TABLET PO (10:15)
[2024-07-08] MEDS: levoFLOXacin 750 MG/D5W 150 ML 750 MG/150 ML BAG 100 MG IVPB (10:15)
[2024-07-08] MEDS: ESCITALOPRAM OXALATE 10 MG TABLET 20 MG PO (10:15)
[2024-07-08] MEDS: SODIUM CHLORIDE 0.9% IV 1,000 ML 100 ML IV CONT ×2 (10:16→20:03)
[2024-07-08] MEDS: METOPROLOL SUCCINATE EXT REL 100 MG TABCR PO (10:21)
--- NOTE | 2024-07-08 10:41 | WPDNEUROLOGY ---
Neurology EEG Report General Information Date of Study: 07/05/24 TEST Electroencephalogram DIAGNOSIS seizure disorder CONDITION OF RECORDING bedside recording EEG NUMBER [id number] CLINICAL HISTORY New onset seizure disorder EEG DESCRIPTION The background activity consists of predominant theta activity at 5-6 hertz with an amplitude of 15-30 microvolts. This appears poorly organized. There is no significant anteroposterior gradient. Patient appears drowsy throughout the recording. Hyperventilation or photic stimulation were not performed. IMPRESSION This is an abnormal EEG due to presence of moderate diffuse background slowing suggestive of generalized encephalopathy such as may be seen with bihemispheric lesions. No focal or paroxysmal epileptiform abnormality was seen.
[2024-07-08] MEDS: OMEGA 3 POLYUNSAT FATTY ACIDS 1 GM CAP PO (17:17)
[2024-07-08 17:22] LABS: Toxigenic C. Diff NEGATIVE (NEGATIVE)
[2024-07-08] MEDS: LOPERAMIDE HCL 2 MG CAPSULE PO (18:08)
[2024-07-09] VITALS: PULSE 97
[2024-07-09 04:00] VITALS: PULSE 101
[2024-07-09 04:31] VITALS: BP 126/83; PULSE 110; RESP 16; TEMP 36.6; O2SAT 98
[2024-07-09] MEDS: SODIUM CHLORIDE 0.9% IV 1,000 ML 100 ML IV CONT (05:43)
[2024-07-09 06:02] LABS: Basophils Absolute Auto 0.1 K/mm3 (0.0-0.1); Basophils Percent Auto 0.6 % (0.2-1.2); Eosinophils Absolute Auto 0.3 K/mm3 (0-0.3); Hematocrit 29.5 % (42.0-52.0); Hemoglobin 9.2 g/dL (14.0-18.0); Immature Granulocyte Absolute 0.05 K/mm3 (0.00-0.031); Immature Granulocyte Percent A 0.5 % (0-0.5); Lymphocytes Absolute Auto 0.83 K/mm3 (0.9-3.2); Lymphocytes Percent Auto 8.5 % (18.3-44.2); Mean Corpuscular HGB Conc 31.2 g/dl (32-36); Mean Corpuscular Hemoglobin 31.3 pg (26-34); Mean Corpuscular Volume 100.3 fl (80-100); Mean Platelet Volume 9.6 fl (7.4-10.4); Monocytes Absolute Auto 0.9 K/mm3 (0.1-0.6); Monocytes Percent Auto 9.5 % (2.6-8.5); Neutrophils Absolute Auto 7.6 K/mm3 (1.3-6.7); Neutrophils Percent Auto 77.9 % (45.5-73.1); Platelet Count Result 214 k/mm3 (150-375); Red Blood Count 2.94 M/mm3 (4.6-6.20); Red Cell Distribution Width 13.9 % (11.5-14.5); White Blood Count 9.8 K/mm3 (4.5-10.0)
[2024-07-09 06:11] LABS: Alanine Aminotransferase 27 U/L (6-50); Albumin Level 3.2 g/dL (3.5-5.1); Alkaline Phosphatase 84 U/L (38-126); Anion Gap 6 mmol/L (4-12); Aspartate Amino Transferase 26 U/L (17-59); Bilirubin,Total 0.3 mg/dL (0.2-1.3); Blood Urea Nitrogen 23 mg/dL (9-20); Calcium 8.6 mg/dL (8.4-10.2); Carbon Dioxide 19 mmol/L (22-30); Chloride 114 mmol/L (98-107); Estimated CRCL calculation 24 ml/min; Estimated Glomerular Filt Rate 32; Glucose 84 mg/dL (65-110); Magnesium 1.7 mg/dL (1.6-2.3); Sodium 139 mmol/L (137-145)
[2024-07-09 08:04] VITALS: PULSE 109
[2024-07-09] MEDS: levETIRAcetam 250 MG TABLET 750 MG PO (08:45)
[2024-07-09] MEDS: OMEGA 3 POLYUNSAT FATTY ACIDS 1 GM CAP PO (08:45)
[2024-07-09] MEDS: ACIDOPHILUS/BULGARICUS CHEWABLE TABLET 1 TABLET BY MOUTH (08:45)
[2024-07-09] MEDS: ESCITALOPRAM OXALATE 10 MG TABLET 20 MG PO (08:45)
[2024-07-09] MEDS: allopurinoL 100 MG TABLET PO (08:45)
[2024-07-09] MEDS: METOPROLOL SUCCINATE EXT REL 100 MG TABCR PO (08:46)
[2024-07-09] MEDS: ATORVASTATIN 10 MG TABLET PO (08:46)
[2024-07-09] MEDS: ASPIRIN 81 MG CHEWABLE TABLET PO (08:46)
[2024-07-09] MEDS: FLUTICASONE PROPIONATE 0.05% NA SPR 16 GM BTL (*BKC) 1 SPRAY NASAL (08:46)
[2024-07-09] MEDS: MULTIVITAMINS /C LUTEIN (CENTRUM SILVER) TABLET *BKC 1 TAB PO (08:46)
[2024-07-09] MEDS: cilostazoL 100 MG TABLET PO (08:46)
[2024-07-09] MEDS: TAMSULOSIN HCL 0.4 MG CAPSULE PO (08:46)
[2024-07-09] MEDS: POTASSIUM CHLORIDE 20 MEQ ER TABLET PO (08:46)
[2024-07-09 12:05] VITALS: PULSE 88
--- NOTE | 2024-07-09 12:20 | PM.DS ---
DS: Admitting Diagnosis Discharge Date 07/09/24 Admitting Diagnosis Pneumonia Hypokalemia Atrial fibrillation with rapid ventricular response Chronic kidney disease stage 3 Vascular dementia DS: Summary Hospital Course Reason for hospitalization: Pneumonia Hypokalemia Atrial fibrillation with rapid ventricular response Chronic kidney disease stage 3 Vascular dementia Hospital Course: This is a 79-year-old male presented to the hospital on 07/07/2024 with increased confusion. He was recently discharged on 1523 after treatment of a urinary tract infection. CT of the chest abdomen and pelvis this admission revealed pneumonia. He was started on Levaquin. Was also noted to have urinary retention greater than 700 ml of urine on bladder scan and after Babin catheter was placed 1.1 L drained initially. He was started on tamsulosin. He normally straight cath at home however has had increased difficulty with advancement of his catheter. His Babin catheter will remain in place and he will need to follow up with Urology in 2 weeks for voiding trial or to continue with chronic Babin catheter considering he had greater than [address] of the abdomen pelvis showed mild right hydronephrosis a markedly distended bladder. Patient was instructed to stop taking his Cipro which was prescribed the last admission for his urinary tract infection and just switched to Levaquin as this will cover his hospitalized acquired pneumonia as well as his urinary tract infection. Patient is currently on room air, vital signs are stable, he is afebrile. He is stable for discharge at this time. He will need to obtain a lab in 1 week to recheck his creatinine and then follow up with his primary care physician upon the completion of his Levaquin. Final diagnosis: Hospitalized acquired pneumonia, urinary retention, urinary tract infection, hypokalemia Status at Discharge Cognitive/behavioral status at discharge: Alert oriented x3 Functional status at discharge: independent ambulation Overall status at discharge: patient is progressing back to baseline Time Spent with Patient Time attestation: Total time spent providing and/or coordinating discharge services: Time spent: Greater than 30 minutes Exam Narrative: General: In no acute distress Head: atraumatic, no encephalopathy Eyes: EOMI, PERRLA, sclera clear ENT: moist mucous membranes, nasal passages clear Neck: supple, no JVD, no adenopathy, trachea midline Cardiac: Normal S1 and S2. Are, No murmur, gallops or friction rubs, peripheral pulses intact. Respiratory: Crackles noted bilaterally, no adventitious lung sounds, currently on room air Gastrointestinal: soft, non-distended, non-tender, normoactive bowel sounds. : Babin catheter in place draining clear yellow urine Extremities: moves all extremities well, no edema Skin: clean, dry, intact. No wounds or lesions. Neuro: Alert and oriented x4 DS: Data Data Completed and Pending Completed studies during hospitalization: Chest/abdomen/pelvis CT Chest x-ray Pending studies at discharge: Blood cultures Labs on day of discharge: Labs from last 24 hours 07/09/24 07/08/24 07/08/24 05:42 16:26 14:39 WBC 9.8 RBC 2.94 L Hgb 9.2 L Hct 29.5 L MCV 100.3 H MCH 31.3 MCHC 31.2 L RDW 13.9 Plt Count 214 MPV 9.6 Immature Gran % (Auto) 0.5 Neut % (Auto) 77.9 H Lymph % (Auto) 8.5 L Arroyo % (Auto) 9.5 H Eos % (Auto) 3.0 Baso % (Auto) 0.6 Lymph # (Auto) 0.83 L Arroyo # (Auto) 0.9 H Eos # (Auto) 0.3 Baso # (Auto) 0.1 Abs Immat Gran (auto) 0.05 H Absolute Neuts (auto) 7.6 H Absolute Nucleated RBC 0.000 Nucleated RBC % 0.0 Sodium 139 Potassium 4.0 Chloride 114 H Carbon Dioxide 19 L Anion Gap 6 BUN 23 H Creatinine 2.00 H Estim Creat Clear Calc 24 Estimated GFR 32 L Glucose 84 Calcium 8.6 Magnesium 1.7 Total Bilirubin 0.3 AST 26
[2024-07-13 18:34] LABS: Pneumococcal Antigen Urine NOT DETECTED
[2024-07-14 00:48] LABS: Legionella pneumophila Ag Ur NOT DETECTED
== END 2024-07-09 14:10 | disposition home or self-care (01) | DRG 194 ==
LOC: ANHED 17:27 → ANH3MED 19:24
PROVIDERS: Internal Medicine; Nurse Practitioner Acute Care; Admitting Provider Family Medicine; Emergency Provider Emergency Medicine; PCP Nurse Practitioner Family; Visit Provider Nurse Practitioner Acute Care
DX: J18.9 Pneumonia, unspecified organism (principal); I13.0 Hypertensive heart and chronic kidney disease with heart failure and stage 1 through stage 4 chronic kidney disease, or unspecified chronic kidney disease; K50.90 Crohn's disease, unspecified, without complications; N13.30 Unspecified hydronephrosis; N39.0 Urinary tract infection, site not specified; I43 Cardiomyopathy in diseases classified elsewhere; D50.9 Iron deficiency anemia, unspecified; E87.6 Hypokalemia; E53.8 Deficiency of other specified B group vitamins; E78.5 Hyperlipidemia, unspecified; F01.50 Vascular dementia, unspecified severity, without behavioral disturbance, psychotic disturbance, mood disturbance, and anxiety; I73.9 Peripheral vascular disease, unspecified; I50.9 Heart failure, unspecified; I48.91 Unspecified atrial fibrillation; I25.10 Atherosclerotic heart disease of native coronary artery without angina pectoris; M10.9 Gout, unspecified; N18.32 Chronic kidney disease, stage 3b; N40.1 Benign prostatic hyperplasia with lower urinary tract symptoms; R33.8 Other retention of urine; Z98.41 Cataract extraction status, right eye; Z98.42 Cataract extraction status, left eye; Z90.49 Acquired absence of other specified parts of digestive tract; Z95.1 Presence of aortocoronary bypass graft; Z95.828 Presence of other vascular implants and grafts; Z66 Do not resuscitate; Z87.891 Personal history of nicotine dependence; Z91.81 History of falling; Z20.822 Contact with and (suspected) exposure to COVID-19
CPT/HCPCS: 36415; 71046; 71250; 74176; 80048; 80053; 81001; 83605; 83735; 84145; 84484; 85025; 85027; 86140; 86738; 87040; 87086; 87449; 87493; 87637; 87899; 93005; 94667; 96361; 96365; 96366; 99285; A9270; G0378; J0456; J0696; J1956; J7030

== ENCOUNTER 2024-11-26 16:50 | Outpatient (CLI) | payer MEDICARE, SELFPAY ==
--- NOTE | ~2024-11-26 | CT_ITS ---
CT diagnostic chest wo con Ordering provider: Preethi Godoy, SEO COORDINATOR History: 79 years Male with . Abnormal chest xray . Comparison: None. Technique: CT chest without IV contrast. Radiation reduction technique utilized.The dose-length product was 140.17 mGy-cm. FINDINGS: VISUALIZED THORACIC INLET: Normal. MEDIASTINUM: Aorta/coronary arteries: Moderate atheromatous disease. Heart/other: The heart is slightly enlarged. Lymph nodes: Perihilar enlarged lymph node is seen measuring 1.7 cm. Postoperative in the mediastinum. LUNGS: Bilateral atelectasis versus pneumonia in the lower lobes posteriorly. Nodule seen in the obli que fissure on the left side measuring 1 cm. Minimal fluid in the right transverse fissure. No pulmon mohan masses. No infiltrates or effusions. No pneumothorax. VISUALIZED UPPER ABDOMEN: Otherwise, the visualized upper abdomen is normal. MUSCULOSKELETAL: Soft tissues: The superficial soft tissues are normal. Bones: Age appropriate degenerative changes of the spine. IMPRESSION: 1. Atelectasis versus pneumonia in the lower lobes. Follow-up to resolution advised. 2. Nodule in the left oblique fissure. 3 months Follow-up CT is advised. 3. Enlarged precarinal lymph node. 4. Cardiomegaly. Reviewed, dictated and finalized at location A. ODIAL OFFICER IMPRESSION: 1. Atelectasis versus pneumonia in the lower lobes. Follow-up to resolution ad vised. 2. Nodule in the left oblique fissure. 3 months Follow-up CT is advised. 3. Enlarged precarinal lymph node. 4. Cardiomegaly.
--- OUTSIDE RECORDS SUMMARY | 2024-11-26 16:52 | XMS_ITS | Encounter Summary ---
Author Organization [facility] Address [address] [place] [address] Phone Care Team Providers Care Manager Developmental Name Role Phone John Kimbrough MD Primary Care Provider [phone] Kath Shepherd MD Unavailable [phone] Peter Ya MD Unavailable [phone] Vitaly Ledesma MD Unavailable [phone] Anayeli Lee MD Primary Care Provider Joshua Butterfield MD Unavailable [phone] Jeffery Bustillos MD Unavailable [phone] Shimon Schofield MD Unavailable Preethi Godoy NP Primary Care Provider [phone] Encounter Details Date Type Department Care Team (Late st Contact Info) Description 01/13/2018 Orders Only [facility] ProviderOlive MD [address] [place] [address] Social History Tobacco Use Types Packs/Day Years Used Date Smoking Tobacco: Never Smokeless Tobacco: Never Alcohol Use Standard Drinks/Week Comments No 0 (1 standard drink = 0.6 oz pur e alcohol) Sex and Gender Information Value Date Recorded Sex Assigned at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 2:24 AM TALENT COORDINATOR Gender Identity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 Sexual Orientation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 documented as of this encounter Plan of Treatment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 documented as of this encounter Procedures Procedure Name Priority Date/Time Associated Diagnosis Comments DISCHARGE LABORATORY CUMULATIVE REPORT 01/13/2018 12:00 AM CDT documented in this encounter Results * DISCHARGE LABORATORY CUMULATIVE REPORT (01/13/2018 12:00 AM CDT) Narrative 01/13/2018 12:00 AM CDT Ordered by an unspecified provider. us Historical Provider LAB BLOOD ORDERABLES Laly l Result documented in this encounter Visit Diagnoses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documented in this encounter Additional Health Concerns Infection Onset Date Last Indicated Resolved Time COVID: Suspected 08/21/2021 08/21/2021 08/21/2021 11:38 AM TALENT COORDINATOR COVID: Suspected 11/14/2024 11/14/2024 11/14/2024 10:49 AM TALENT COORDINATOR COVID: Suspected 11/14/2024 11/14/2024 11/14/2024 3:33 PM TALENT COORDINATOR RSV, droplet 11/14/2024 11/14/2024 11/21/2024 3:07 AM TALENT COORDINATOR documented as of this encounter Care Teams Manager Developmental Relationship Specialty Start Date End Date John Kimbrough MD [address] [facility] [address] [place] [address] PCP - General 11/08/16 07/02/23 Anayeli Lee MD [address] [place] [address] PCP - General Family Medicine 07/03/23 08/24/24 Preethi Godoy NP [address] [address] PCP - General Family Medicine 08/25/24 Kath Shepherd MD [address] [place] [address] Consulting Physician Gastroenterology 07/22/19 Peter Ya MD [address] [place] [address] Unclaimed Property Officer Cardiology 07/22/19 Vitaly Ledesma MD [address] [place] [address] Consulting Physician Neurology 07/22/19 Joshua Butterfield MD [address] [facility] [address] [place] [address] Consulting Physician Urology 07/03/23 Jeffery Bustillos MD [address] [facility] [address] [place] [address] Consulting Physician Cardiovascular Disease 02/06/24 Shimon Schofield MD [address] [address] Consulting Physician Vascular Surgery 02/06/24 documented as of this encounter
--- OUTSIDE RECORDS SUMMARY | 2024-11-26 16:52 | XMS_ITS | Encounter Summary ---
Author Organization [facility] Address [address] [place] [address] Phone Care Team Providers Care Land Degradation Analyst Name Role Phone John Kimbrough MD Primary Care Provider [phone] Kath Shepherd MD Unavailable [phone] Peter Ya MD Unavailable [phone] Vitaly Ledesma MD Unavailable [phone] Anayeli Lee MD Primary Care Provider Joshua Butterfield MD Unavailable [phone] Jeffery Bustillos MD Unavailable [phone] Shimon Schofield MD Unavailable Preethi Godoy NP Primary Care Provider [phone] Encounter Details Date Type Department Care Team (Latest Contact Info) Description 03/06/2021 Orders Only [facility] Scanning, Provider Social History Tobacco Use Types Packs/Day Years Used Date Smoking Tobacco: Former Cigarettes 29 1 962 - 1990 Smokeless Tobacco: Never Alcohol Use Standard Drinks/Week Comments No 0 (1 standard drink = 0.6 oz pure alcohol) former alcoholic, 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 [employer]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 documented as of this encounter Plan of Treatment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 documented as of this encounter Procedures Procedure Name Priority Date/Time Associated Diagnosis Comments SCAN - LABS 03/06/2021 documented in this encounter Results * SCAN - LABS (03/06/2021) us Provider Scanning Final Result documented in this encounter Visit Diagnoses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documented in this encounter Additional Health Concerns Infection Onset Date Last Indicated Resolved Time COVID: Suspected 08/21/2021 08/21/2021 08/21/2021 11:38 AM CONSTRUCTION SAFETY MANAGER COVID: Suspected 11/14/2024 11/14/2024 11/14/2024 10:49 AM CONSTRUCTION SAFETY MANAGER COVID: Suspected 11/14/2024 11/14/2024 11/14/2024 3:33 PM CONSTRUCTION SAFETY MANAGER RSV, droplet 11/14/2024 11/14/2024 11/21/2024 3:07 AM CONSTRUCTION SAFETY MANAGER documented as of this encounter Care Teams Land Degradation Analyst Relationship Specialty Start Date End Date John Kimbrough MD [address] [facility] [address] [place] [address] PCP - General 11/08/16 07/02/23 Anayeli Lee MD [address] [place] [address] PCP - General Family Medicine 07/03/23 08/24/24 Preethi Godoy NP [address] [facility] [address] [place] [address] PCP - General Family Medicine 08/25/24 Kath Shepherd MD [address] [place] [address] Consulting Physician Gastroenterology 07/22/19 Peter Ya MD [address] [place] [address] Ceo And President Cardiology 07/22/19 Vitaly Ledesma MD [address] [place] [address] Consulting Physician Neurology 07/22/19 Joshua Butterfield MD [address] [facility] [address] [place] [address] Consulting Physician Urology 07/03/23 Jeffery Bustillos MD [address] [facility] [address] [facility] [address] [place] [address] Consulting Physician Cardiovascular Disease 02/06/24 Shimon Schofield MD [address] [address] Consulting Physician Vascular Surgery 02/06/24 documented as of this encounter
--- OUTSIDE RECORDS SUMMARY | 2024-11-26 16:53 | XMS_ITS | Encounter Summary ---
Author Organization [facility] Address [address] [place] [address] Care Team Providers Care Home School Teacher Name Role Phone Kath Shepherd MD Unavailable [phone] Peter Ya MD Unavailable [phone] Vitaly Ledesma MD Unavailable [phone] Joshua Butterfield MD Unavailable [phone] Jeffery Bustillos MD Unavailable [phone] Shimon Schofield MD Unavailable Preethi Godoy NP Primary Care Provider [phone] Reason for Referral * MRI/CAT/PET Scan (Routine) - Authorized Specialty Diagnoses / Procedures Referred By Contac t Referred To Contact Diagnoses Abnormal CXR Pneumonia of both lungs due to infectious organism, unspecified part of lung Cough, unspecified type Fever, unspecified fever cause Procedures CT Chest WO Contrast Preethi Godoy NP [address] [place] [address] Phone: tel: fax: [facility] [address] [facility] [address] [place] [address] Phone: tel: fax: Referral ID Status Reason Start Date Expiration Date V isits Requested Visits Authorized [id number] Authorized 11/26/2024 12/26/2025 1 1 NEYMAN WIREMAN Reason for Visit * Reason Onset Date Comments Symptom Based Call 11/26/2024 Encounter Details Date Type Department Care Team (Late st Contact Info) Description 11/26/2024 Telephone [facility] Primary Care at [address] [address] Preethi Godoy NP [address] [facility] [address] [place] [address] Symptom Based Call Social History Tobacco Use Types Packs/Day Years Used Date Smoking Tobacco: Former Cigarettes 1 29 1 [id number] Smokeless Tobacco: Never Alcohol Use Standard Drinks/Week Comments No 0 (1 standard drink = 0.6 oz pure alcohol) former alcoholic, 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 Never 02/13/2024 Q2: How many drinks containi ng alcohol do you have on a typical day when you are drinking? Patient does not drink Q3: How often do you have si x or more drinks on one occasion? Never 02/13/2024 PHQ-2 Answer Date Recorded PHQ-2 Total Score (If total score is 3 or more points, staff should administer the PHQ-9) 0 11/23/2024 Personal Safety Answer Date Recorded Have you ever been in or are you currently in a harmful physical or emotional relationship or is someone making you feel afraid or unsafe? 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 They aren't as open as should be and we want to make sure they are not fluid filled, etc. We should get a chest CT to get abetter look at it--if agreeable where would they prefer to have done? I am empirically sending in Levaquin--make sure he gets an over the counter probiotic on board. I am also sending in an inhaler to open up the lungs. If symptoms worsen, ER. NEYMAN WIREMAN * Telephone Encounter - Charline Goodman MA - 11/26/2024 2:03 PM CST Symptom Based Call Chief Complaint(s): cough, slight fever, cold Duration: today What type of symptom(s) is the patient experiencing? Non-Emergent. Is this a new or reoccurring symptom(s)? Reoccurring What have you tried to help your symptom(s)? 2 rounds of antibiotics Why was appointment not scheduled? Patient seeking care without an appointment; appointment was offered by . Additional Comments: Patient Sarah has called and stated that the patient was in on 11/23/2024 and seemed to be doing better. But today he is coughing again. Non productive and sitting in his chair with a blanket on, slight temp for him of 99.7 Sarah states that he said that he felt like his head was stopped up and he denied any shortness of breath or wheezing. He has already done 2 rounds of antibiotics and she is not sure what to do next Does message need to be routed? Yes-Action Needed NEYMAN WIREMAN documented in this encounter Plan of Treatment Scheduled Orders Name Type Priority Associated Diagnoses Orde r Schedule CT Chest WO Contrast Imaging Schedule Routine, Read Routine (OP Routine) Abnormal CXR Pneumonia of both lungs due to infectious organism, unspecified part of lung Cough, unspecified type Fever, unspecified fever cause Expected: 11/26/2024, Expires: 11/26/2025 documented as of this encounter Visit Diagnoses Diagnosis Abnormal CXR- Primary Nonspecific (abnormal) findings on radiological and other examination of lung field Pneumonia of both lungs due to infectious organism, unspecified part of lung Cough, unspecified type Fever, unspecified fever cause documented in this encounter Care Teams Home School Teacher Relationship Specialty Start Date End Date Preethi Godoy NP [address] [facility] [address] [place] [address] PCP - General Family Medicine 08/25/24 Kath Shepherd MD [address] [place] [address] Consulting Physician Gastroenterology 07/22/19 Peter Ya MD [address] [place] [address] Center Human Resources Manager Cardiology 07/22/19 Vitaly Ledesma MD [address] [place] [address] Consulting Physician Neurology 07/22/19 Joshua Butterfield MD [address] [facility] [address] [place] [address] Consulting Physician Urology 07/03/23 Jeffery Bustillos MD [address] [place] [address] [address] [place] [address] Consulting Physician Cardiovascular Disease 02/06/24 Shimon Schofield MD [address] [address] Consulting Physician Vascular Surgery 02/06/24 documented as of this encounter
--- OUTSIDE RECORDS SUMMARY | 2024-11-26 16:53 | XMS_ITS | Encounter Summary ---
Author Organization [facility] Healthcare Address [address] [place] [address] Care Team Providers Care Inspector Poising Name Role Phone Kath Shepherd MD Unavailable [phone] Peter Ya MD Unavailable [phone] Vitaly Ledesma MD Unavailable [phone] Joshua Butterfield MD Unavailable [phone] Jeffery Bustillos MD Unavailable [phone] Shimon Schofield MD Unavailable Shae Richmond NP Primary Care Provider Encounter Details Date Type Department Care Team (Late st Contact Info) Description 11/26/[address] [facility] Medical Group Primary Care at [address] [address] Shae Richmond NP [address] [place] [address] [address] [place] [address] Social History Tobacco Use Types Packs/Day Years [...] you are drinking? 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 8 tablet 11/26/2024 5 albuterol HFA (PROVENTIL HFA,VENTOLIN HFA,PROAIR HFA) 90 mcg/actuation inhaler Inhale 2 puffs every 4 (four) hours as needed for wheezing or shortness of breath 1 each 11/26/2024 levoFLOXacin (LEVAQUIN) 750 mg tablet Take 1 tablet (750 mg total) by mouth daily for 5 days 5 tablet 11/26/2024 5 documented in this encounter Miscellaneous Notes * Addendum Note - Shae Richmond NP - 11/26/2024 3:09 PM CSTAddended by: SHAE RICHMOND on: 11/26/2024 03:28 PM Modules accepted: Orders ING PLUG ASSEMBLER documented in this encounter Plan of Treatment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 documented as of this encounter Visit Diagnoses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documented in this encounter Discontinued Medications Medication Sig Discontinue Reason Start Date End Da te levoFLOXacin (LEVAQUIN) 750 mg tablet Take 1 tablet (750 mg total) by mouth daily for 5 days 11/26/2024 11/26/2024 documented as of this encounter Care Teams Inspector Poising Relationship Specialty Start Date End Date Shae Richmond NP [address] [facility] [address] [place] [address] PCP - General Family Medicine 08/25/24 Kath Shepherd MD [address] [place] [address] Consulting Physician Gastroenterology 07/22/19 Peter Ya MD [address] [place] [address] Drug Counselor Cardiology 07/22/19 Vitaly Ledesma MD [address] [place] [address] Consulting Physician Neurology 07/22/19 Joshua Butterfield MD [address] [facility] [address] [place] [address] Consulting Physician Urology 07/03/23 Jeffery Bustillos MD [address] [facility] [address] [place] [address] Consulting Physician Cardiovascular Disease 02/06/24 Shimon Schofield MD [address] [address] Consulting Physician Vascular Surgery 02/06/24 documented as of this encounter
--- OUTSIDE RECORDS SUMMARY | 2024-11-26 16:53 | XMS_ITS | CONTINUITY OF CARE DOCUMENT ---
Author Name harshal caputo Address Unknown Organization [facility] Address [address] [facility] [address] [place] [address] Phone [phone] Care Team Providers Care Keyboard Operator Name Role Phone Yuko LARA, Mathew Unavailable NADIA KWON MD Unavailable NADIA KWON MD Unavailable PROBLEMS Condition Status Date Provider Notes PVD active Mathew Huntley MD HTN essential active Mathew Huntley MD CAD s/p CABG active Mathew Huntley MD ENCOUNTERS Date Type Provider Location Encounter Diag nosis - In-person encounter Office Visit Mathew Huntley MD [place] [facility] PVDHTN essentialCAD s/p CABG VITAL SIGNS Date Observation Value Provider Body Mass Index (Ratio) 24.33 kg/m2 Refugio Huntley MD blood pressure, diastolic 86 mm[Hg] Da roosevelt Rachele blood pressure, systolic 168 mm[Hg] Dac ia Rachele oxygen saturation, oximetry 97 % Sonia Rachele respiratory rate E&M 16 /min Sonia V oss pulse rate 74 /min Sonia Rachele weight E&M 172 [lb_av] Sonia Rachele height E&M 70.5 [in_i] Sonia Rachele ALLERGIES No Known Drug Allergies HISTORY OF MEDICATION USE Medication Status Instructions Dates Provider Indications Com ments LIPITOR 10 MG ORAL TABLET active ONE TAB. DAILY Mathew Huntley MD BUDESONIDE 3 MG ORAL CAPSULE DELAYED RELEASE PARTICLES active take 2 tablets dialy Sonia Jeffrey REMICADE 100 MG INTRAVENOUS SOLUTION RECONSTITUTED active Sonia Jeffrey FLOMAX 0.4 MG ORAL CAPSULE active Sonia Jeffrey FINESTERIDE 5 MG active take one tablet daily Sonia Jeffrey ALLOPURINOL 100 MG ORAL TABLET active take one tablet daily Sonia Jeffrey ESCITALOPRAM OXALATE 20 MG ORAL TABLET active take one tablet daily Sonia Jeffrey AMLODIPINE BESYLATE 2.5 MG ORAL TABLET active take one tablet daily Sonia Jeffrey IRBESARTAN 300 MG ORAL TABLET active take one tablet daily Sonia Jeffrey ASPIR-LOW 81 MG ORAL TABLET DELAYED RELEASE active take one tablet daily Sonia Jeffrey SOCIAL HISTORY Date Observation Value Provider number of grandchildren Mathew Huntley MD U lynnette Huntley MD social history E&M Patient is a former smoker. Smoking History: Charity cameron is a former smoker. Mathew Huntley MD social history reviewed E&M reviewed - no changes required Mathew Huntley MD alcohol use no Sonia Jeffrey smoking, year quit 1990 Sonia Babb s cigarette use yes Sonia Jeffrey smoking status Former smoker Mathew Huntley MD FUNCTIONAL STATUS Date Observation Value Provider HRA, CV Assess/Plan, Angina (inactive) Management Plan continue current therapy Mathew Huntley MD FAMILY HISTORY Family Member Condition Mother Negative FH of Hyper tension Mother Family History of Di abetes: Mother Family History Breas t Cancer: Father Negative FH of Hyper tension INSURANCE PROVIDERS Payer name Policy type / Coverage type [place] red democrat ID A[employer] StatusPage insurance company [phone] [id number] [place] Medicare [id number] ADVANCE DIRECTIVES Name Date DISCUSSED - NO DECISION MADE TREATMENT PLAN Date Name Performer Cardiology new pt:Wi ll perform AIF. Has DEREK of 0.71 left TBI of 0.11 with reduced and monophasic waveforms. Mathew Huntley MD Cardiology new pt: H is updated medication list for this problem includes: Amlodipine Besylate 2.5 Mg Oral Tabs (Amlodipine besylate) ..... Take one tablet daily Aspir-low 81 Mg Oral Tbec (Aspirin) ..... Take one tablet daily Mathew Huntley MD Cardiology new pt: B P today: 168/86 His updated medication list for this problem includes: Amlodipine Besylate 2.5 Mg Oral Tabs (Amlodipine besylate) ..... Take one tablet daily Irbesartan 300 Mg Oral Tabs (Irbesartan) ..... Take one tablet daily Aspir-low 81 Mg Oral Tbec (Aspirin) ..... Take one tablet daily Mathew Huntley MD Date Name AIF - CNE HISTORY OF PROCEDURES Procedure Date Procedure Name Provider Procedure Notes S tatus SNOMED-CT: 70084896 Physical Exam, Performed: Pulse Exam of Foot Mathew Huntley MD completed EKG Mathew Huntley MD completed SNOMED-CT: 510801312 [id number] Current Medications Documented Mathew Huntley MD completed
--- OUTSIDE RECORDS SUMMARY | 2024-11-26 16:53 | XMS_ITS | Encounter Summary ---
Author Organization [facility] Address [address] [place] [address] Phone Care Team Providers Care Dairy Cattle Farmer Name Role Phone John Kimbrough MD Primary Care Provider [phone] Kath Shepherd MD Unavailable [phone] Peter Ya MD Unavailable [phone] Vitaly Ledesma MD Unavailable [phone] Anayeli Lee MD Primary Care Provider Joshua Butterfield MD Unavailable [phone] Jeffery Bustillos MD Unavailable [phone] Shimon Schofield MD Unavailable Preethi Godoy NP Primary Care Provider [phone] Encounter Details Date Type Department Care Team (Late st Contact Info) Description 08/21/2021 Telephone [facility] Oncology [address] [facility] [address] [place] [phone] Maribel Shore CPhT Social History Tobacco Use Types Packs/Day Years Used Date Smoking Tobacco: Former Cigarettes - 1990 Smokeless Tobacco: Never Alcohol Use Standard Drinks/Week Comments No 0 (1 standard drink = 0.6 oz pure alcohol) former alcoholic, 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 [employer]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 documented as of this encounter Plan of Treatment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 documented as of this encounter Visit Diagnoses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documented in this encounter Additional Health Concerns Infection Onset Date Last Indicated Resolved Time COVID: Suspected 08/21/2021 08/21/2021 08/21/2021 11:38 AM LANDSCAPE ARCHITECTURE PROFESSOR COVID: Suspected 11/14/2024 11/14/2024 11/14/2024 10:49 AM LANDSCAPE ARCHITECTURE PROFESSOR COVID: Suspected 11/14/2024 11/14/2024 11/14/2024 3:33 PM LANDSCAPE ARCHITECTURE PROFESSOR RSV, droplet 11/14/2024 11/14/2024 11/21/2024 3:07 AM LANDSCAPE ARCHITECTURE PROFESSOR documented as of this encounter Care Teams Dairy Cattle Farmer Relationship Specialty Start Date End Date John Kimbrough MD [address] [facility] [address] [place] [address] PCP - General 11/08/16 07/02/23 Anayeli Lee MD [address] [place] [address] PCP - General Family Medicine 07/03/23 08/24/24 Preethi Godoy NP [address] [facility] [address] [place] [address] PCP - General Family Medicine 08/25/24 Kath Shepherd MD [address] [place] [address] Consulting Physician Gastroenterology 07/22/19 Peter Ya MD [address] [place] [address] Transcripter Cardiology 07/22/19 Vitaly Ledesma MD [address] [place] [address] Consulting Physician Neurology 07/22/19 Joshua Butterfield MD [address] [facility] [address] [place] [address] Consulting Physician Urology 07/03/23 Jeffery Bustillos MD [address] [facility] [address] [place] [address] Consulting Physician Cardiovascular Disease 02/06/24 Shimon Schofield MD [address] [address] Consulting Physician Vascular Surgery 02/06/24 documented as of this encounter
--- OUTSIDE RECORDS SUMMARY | 2024-11-26 16:53 | XMS_ITS | Clinical Summary ---
Author Organization [facility] Address [address] [place] [address] Care Team Providers Care Potato Chip Sacking Machine Operator Name Role Phone Unavailable Primary Care Provider Unavailabl e Social History Tobacco Use Types Packs/Day Years Used Date Smoking Tobacco: Never Assessed Sex and Gender Information Value Date Recorded Sex Assigned at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 7:58 PM CDT Gender Identity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 Sexual Orientation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 Plan of Treatment Health Maintenance Due Date Last Done Comments Hepatitis C 1964 DTaP, Tdap and Td Vaccines ( 1 - Tdap) 1965 Zoster Vaccines (1 of 2) 1996 Pneumococcal Vaccine: 65+ Ye ars (1 of 1 - PCV) 2011 RSV Immunization or 60+ Years (1 - 1-dose 75+ series) 2021 COVID-19 Vaccine ( - 2023-2 5 season) 2024 Influenza Adult (#1) 2024 Meningococcal B Vaccine Aged Out No l onger eligible based on patient's age to complete this topic Meningococcal Vaccine Aged Out No lorena cher eligible based on patient's age to complete this topic RSV Immunizations Under 20 Months Aged Out No longer eligible based on patient's age to complete this topic
--- OUTSIDE RECORDS SUMMARY | 2024-11-26 16:53 | XMS_ITS | Encounter Summary ---
Author Organization [facility] Address [address] [place] [address] Care Team Providers Care Home Health Registered Nurse Name Role Phone Kath Shepherd MD Unavailable [phone] Peter Ya MD Unavailable [phone] Vitaly Ledesma MD Unavailable [phone] Joshua Butterfield MD Unavailable [phone] Jeffery Bustillos MD Unavailable [phone] Shimon Schofield MD Unavailable Preethi Godoy NP Primary Care Provider [phone] Encounter Details Date Type Department Care Team (Late st Contact Info) Description 11/24/2024 Results Follow-Up [facility] Primary Care at [address] [address] Preethi Godoy NP [address] [place] [address] [address] [place] [address] Social History Tobacco Use Types Packs/Day Years Used Date Smoking Tobacco: Former Cigarettes 29 962 - 1990 Smokeless Tobacco: Never Alcohol [...] on file 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 Gender Identity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 Sexual Orientation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 documented as of this encounter Plan of Treatment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 documented as of this encounter Visit Diagnoses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documented in this encounter Care Teams Home Health Registered Nurse Relationship Specialty Start Date End Date Preethi Godoy NP [address] [facility] [address] [place] [address] PCP - General Family Medicine 08/25/24 Kath Shepherd MD [address] [place] [address] Consulting Physician Gastroenterology 07/22/19 Peter Ya MD [address] [place] [address] Transportation Clerk Cardiology 07/22/19 Vitaly Ledesma MD [address] [place] [address] Consulting Physician Neurology 07/22/19 Joshua Butterfield MD [address] [place] [address] Consulting Physician Urology 07/03/23 Jeffery Bustillos MD [address] [facility] [address] [address] Consulting Physician Cardiovascular Disease 02/06/24 Shimon Schofield MD [address] [facility] [address] [place] [address] Consulting Physician Vascular Surgery 02/06/24 documented as of this encounter
--- OUTSIDE RECORDS SUMMARY | 2024-11-26 16:53 | XMS_ITS | Encounter Summary ---
Author Organization [facility] Address [address] [place] [address] Phone Care Team Providers Care Stone Rigger Name Role Phone John Kimbrough MD Primary Care Provider [phone] Kath Shepherd MD Unavailable [phone] Peter Ya MD Unavailable [phone] Vitaly Ledesma MD Unavailable [phone] Anayeli Lee MD Primary Care Provider Joshua Butterfield MD Unavailable [phone] Jeffery Bustillos MD Unavailable [phone] Shimon Schofield MD Unavailable Preethi Godoy NP Primary Care Provider [phone] Encounter Details Date Type Department Care Team (Late st Contact Info) Description 02/03/2020 Telephone [facility] Gastroenterology [facility] 8th [place] [address] [place] [address] Sherie Yoo, [facility] Social History Tobacco Use Types Packs/Day Years Used Date Smoking Tobacco: Former Smokeless Tobacco: Never Alcohol Use Standard Drinks/Week Comments No 0 (1 standard drink = 0.6 oz pur e alcohol) Sex and Gender Information Value Date Recorded Sex Assigned at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 2:24 AM ORTHOPAEDIC PHYSICIAN ASSISTANT Gender Identity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 Sexual Orientation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 documented as of this encounter Plan of Treatment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 documented as of this encounter Visit Diagnoses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documented in this encounter Additional Health Concerns Infection Onset Date Last Indicated Resolved Time COVID: Suspected 08/21/2021 08/21/2021 08/21/2021 11:38 AM ORTHOPAEDIC PHYSICIAN ASSISTANT COVID: Suspected 11/14/2024 11/14/2024 11/14/2024 10:49 AM ORTHOPAEDIC PHYSICIAN ASSISTANT COVID: Suspected 11/14/2024 11/14/2024 11/14/2024 3:33 PM ORTHOPAEDIC PHYSICIAN ASSISTANT RSV, droplet 11/14/2024 11/14/2024 11/21/2024 3:07 AM ORTHOPAEDIC PHYSICIAN ASSISTANT documented as of this encounter Care Teams Stone Rigger Relationship Specialty Start Date End Date John Kimbrough MD [address] [facility] [address] [place] [address] PCP - General 11/08/16 07/02/23 Anayeli Lee MD [address] [place] [address] PCP - General Family Medicine 07/03/23 08/24/24 Preethi Godoy NP [address] [facility] [address] [place] [address] PCP - General Family Medicine 08/25/24 Kath Shepherd MD [address] [place] [address] Consulting Physician Gastroenterology 07/22/19 Peter Ya MD [address] [place] [address] Bench Scientist Cardiology 07/22/19 Vitaly Ledesma MD [address] [place] [address] Consulting Physician Neurology 07/22/19 Joshua Butterfield MD [address] [facility] [address] [place] [address] Consulting Physician Urology 07/03/23 Jeffery Bustillos MD [address] [facility] [address] [facility] [address] [place] [address] Consulting Physician Cardiovascular Disease 02/06/24 Shimon Schofield MD [address] [address] Consulting Physician Vascular Surgery 02/06/24 documented as of this encounter
--- OUTSIDE RECORDS SUMMARY | 2024-11-26 16:53 | XMS_ITS | Clinical Summary ---
Author Organization [facility] Address [address] [place] [address] Care Team Providers Care Net Mvc Developer Name Role Phone Kath Shepherd MD Unavailable [phone] Peter Ya MD Unavailable Aziza Ledesma MD Unavailable [phone] Joshua Butterfield MD Unavailable [phone] Jeffery Bustillos MD Unavailable [phone] Shimon Schofield MD Unavailable Preethi Godoy NP Primary Care Provider [phone] Allergies No known active allergies Medications coenzyme Q10 10 mg capsule Take 2 capsules (20 mg total) by mouth every morning Active wucyt-6-oga-ep a-dpa-fish oil 1,050-1,200 mg capsule Take 1 capsule by mouth 2 times daily Active multivitamin no.44-vit D3-K 1,000-800 unit-mcg capsule Take 1 capsule by mouth every morning Active Lactobacillus acidophilus (PROBIOTIC ORAL) Take 1 Dose by mouth every morning Active aspirin 81 mg enteric coated tabletIndicati ons:cardiac stent Take 1 tablet (81 mg total) by mouth every morning 10/11/19 17 Active triamcinolone (KENALOG) 0.1 % ointment Apply 1 application (deactivated) topically as needed 03/28/20 21 Active loperamide HCl (IMODIUM A-D ORAL) Take by mouth prn Active mupirocin (BACTROBAN) 2 % ointmentIndica tions:Skin tear of left elbow without complication, initial encounter,Skin tear of left forearm without complication, initial encounter Apply topically 3 (three) times a day 22 g 05/06/20 23 Active escitalopram (LEXAPRO) 20 mg tabletIndicati ons: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4 mg extended release capsule 1 capsule (0.4 mg total) Active memantine (NAMENDA) 5 mg tabletIndicati ons:Moderate to Severe Alzheimer's Type Dementia Take 1 tablet (5 mg total) by mouth 2 (two) times a day Active donepeziL (ARICEPT) 5 mg tablet Take 1 tablet (5 mg total) by mouth nightly Active ferrous sulfate 325 mg (65 mg of elemental iron) tabletIndicati ons:Iron Deficiency Anemia Take 1 tablet (325 mg total) by mouth daily with breakfast 90 tablet 1 08/26/20 24 Active cyanocobalamin (Vitamin B-12) 1,000 mcg/mL injection ADMINISTER 1 ML(1000 MCG) IN THE MUSCLE EVERY 30 DAYS DIRECTED 1 mL 3 09/09/20 24 Active furosemide (LASIX) 40 mg tabletIndicati ons:PREMA (acute kidney injury) TAKE 1 TABLET BY MOUTH TWICE DAILY 180 tablet 1 10/05/19 25 Active fluticasone propionate (FLONASE) 50 mcg/actuation nasal spray Administer 2 sprays into each nostril daily 48 g 3 11/10/19 25 Active azithromycin (ZITHROMAX) 250 mg tabletIndicati ons:Lower respiratory infection (e.g., bronchitis, pneumonia, pneumonitis, pulmonitis) Take 2 tablets the first day, then 1 tablet daily for 4 days. 6 tablet 11/16/19 25 Active allopurinoL (ZYLOPRIM) 100 mg tabletIndicati ons:History of gout TAKE 1 TABLET DAILY 90 tablet 1 11/23/19 25 Active risankizumab-r zaa (Skyrizi) 360 mg/2.4 mL (150 mg/mL) wearable injectorIndica tions:Crohn's Disease Inject 360 mg under the skin every 8 (eight) weeks 2.4 mL 1 11/23/19 25 Active albuterol HFA (PROVENTIL HFA,VENTOLIN HFA,PROAIR HFA) 90 mcg/actuation inhaler Inhale 2 puffs every 4 (four) hours as needed for wheezing or shortness of breath 1 each 11/27/19 25 Active levoFLOXacin (LEVAQUIN) 250 mg tablet Take 2 tablets (500 mg total) by mouth daily for 1 day, THEN 1 tablet (250 mg total) daily for 6 days. 8 tablet 11/27/19 25 2024 Active amLODIPine (NORVASC) 5 mg tablet Take 0.5 tablets (2.5 mg total) by mouth 2 (two) times a day 10/08/19 23 2022 Discontinued irbesartan (AVAPRO) 150 mg tablet Take 0.5 tablets (75 mg total) by mouth daily 90 tablet 1 10/28/19 23 2022 Discontinued risankizumab-r zaa (Skyrizi) 360 mg/2.4 mL (150 mg/mL) wearable injectorIndica tions:Crohn's Disease Inject 360 mg under the skin every 8 (eight) weeks First self injection to be administered 4 weeks after 3rd infusion of Skyrizi then every 8 weeks 2.4 mL 2 04/11/20 23 2024 Discontinued(R eorder) fluticasone propionate (FLONASE) 50 mcg/actuation nasal spray Administer 2 sprays into each nostril daily as needed for rhinitis or allergies 3 each 4 10/03/19 24 2024 Discontinued allopurinoL (ZYLOPRIM) 100 mg tabletIndicati ons:History of gout Take 1 tablet (100 mg total) by mouth daily 100 tablet 3 11/19/19 24 2024 Discontinued risankizumab-r zaa (Skyrizi) 360 mg/2.4 mL (150 mg/mL) wearable injectorIndica tions:Crohn's Disease Inject 360 mg under the skin every 8 (eight) weeks 2.4 mL 11/03/19 25 2024 Discontinued(R eorder) fluticasone propionate (FLONASE) 50 mcg/actuation nasal spray USE 2 SPRAYS IN EACH NOSTRIL DAILY NEEDED FOR RHINITIS OR ALLERGIES 48 g 3 11/10/19 25 2024 Discontinued(R eorder) amoxicillin-cl avulanate (AUGMENTIN) 500-125 mg per tabletIndicati ons:Lower respiratory infection (e.g., bronchitis, pneumonia, pneumonitis, pulmonitis) Take 1 tablet by mouth 2 (two) times a day for 5 days 10 tablet 11/16/19 25 2024 levoFLOXacin (LEVAQUIN) 750 mg tablet Take 1 tablet (750 mg total) by mouth daily for 5 days 5 tablet 11/27/19 25 2024 Discontinued Hospital, Clinic, or Other Facility Administered Medication Ordered Dose Route Frequency Start Date End Date Status [facility] BMS-018790/placebo (/[id number]) capsule 4 capsuleIndications:Crohn' s disease of both small and large intestine with other complication (HCC) 4 capsule oral 2 times daily 05/21/2022 Active [facility] [id number]-[id number]/placebo (/[id number]) capsule 4 capsuleIndications:Crohn' s disease of both small and large intestine with other complication (HCC) 4 capsule oral 2 times daily 06/18/2022 Active [facility] BMS-465661/placebo ([id number]) capsule 4 capsuleIndications:Crohn' s disease of both small and large intestine with other complication (HCC) 4 capsule oral 2 times daily 07/09/2022 Active [facility] BMS-883900/placebo (/[id number]) capsule 4 capsuleIndications:Crohn' s disease of both small and large intestine with other complication (HCC) 4 capsule oral 2 times daily 08/07/2022 Active [facility] BMS-120880/placebo ([id number]) capsule 4 capsuleIndications:Crohn' s disease of both small and large intestine with other complication (HCC) 4 capsule oral 2 times daily 09/19/2022 Active [facility] BMS-413616/placebo ([id number]) capsule 4 capsuleIndications:Crohn' s disease of both small and large intestine with other complication (HCC) 4 capsule oral 2 times daily 10/21/2022 Active Active Problems Problem Noted Date Diagnosed Date Nonrheumatic mitral valve regurgitation 09/08/20 24 B12 deficiency 02/06/2024 KAYLA (generalized anxiety disorder) 02/06/2024 Assessment & Plan (02/06/2024 4:58 PM CDT): Chronic. Stable. Continue Lexapro. Monitor Hx of CABG 11/27/2023 History of amputation of lesser toe of left foot 07/03/2023 Assessment & Plan (02/06/2024 4:55 PM CDT): Chronic. Denies any new wounds on his feet. Continue risk factor modification Assessment & Plan (10/03/2023 1:12 PM EVENT MARKETING REPRESENTATIVE): Chronic. Due to prior peripheral arterial disease. Denies current foot sores. Follows with DPM Assessment & Plan (07/03/2023 5:20 PM CDT): Prior 4th toe amputation on the left foot. Site of amputation is intact without signs of skin breakdown. Continue risk factor modification for peripheral arterial disease. Follows with Podiatry Benign prostatic hyperplasia with urinary retent ion 07/03/2023 Assessment & Plan (02/06/2024 4:55 PM CDT): Chronic. Symptoms have been stable. He will remain on finasteride. Does intermittent straight catheterization. He will continue to see his urologist Assessment & Plan (10/03/2023 1:12 PM EVENT MARKETING REPRESENTATIVE): Chronic. Continue medication care per Urology Assessment & Plan (07/03/2023 5:22 PM CDT): Follows with [facility] Dr. Butterfield. Patient on finasteride and does intermittent straight catheterization Protein-calorie malnutrition, mild 07/03/2023 Overview (07/03/2023): Patient with low BMI. Less protein level was low. Monitor weight Assessment & Plan (02/06/2024 4:55 PM CDT): Patient has had borderline protein calorie malnutrition. Monitor his protein levels on labs. Encourage adequate nutrition. Avoid additional weight loss Assessment & Plan (10/03/2023 1:12 PM EVENT MARKETING REPRESENTATIVE): Chronic. BMI remains at the lower end arrange. Encouraged adequate nutrition. Monitor History of gout 07/03/2023 Assessment & Plan (02/06/2024 4:55 PM CDT): Chronic. Denies history of recent flares. Continue allopurinol for prophylaxis. Check uric acid Assessment & Plan (10/03/2023 1:12 PM EVENT MARKETING REPRESENTATIVE): Chronic. Denies any history of gout in several years. Continue allopurinol for prophylaxis Assessment & Plan (07/03/2023 5:25 PM CDT): Chronic. On allopurinol for suppression. Continue. Denies recent flares Onychomycosis 07/03/2023 Assessment & Plan (07/03/2023 5:26 PM CDT): Moderate. Follows with Podiatry. Defer care to them Bile duct stricture 03/18/2023 Ventral hernia without obstruction or gangrene 0 03/14/2023 Assessment & Plan (10/03/2023 1:13 PM EVENT MARKETING REPRESENTATIVE): Chronic. May occasionally increase in size. Minimal pain. Has deferred elective repair in the past Persistent atrial fibrillation 12/04/2021 Assessment & Plan (11/23/2024 1:36 PM EVENT MARKETING REPRESENTATIVE): Rate controlled in office, continuing follow up with Cardiology. Assessment & Plan (03/01/2024 7:51 AM CDT): Stable continue metoprolol. Assessment & Plan (02/06/2024 4:55 PM CDT): Chronic. Controlled rate with metoprolol. Continue. Continue aspirin for stroke prophylaxis Assessment & Plan (10/03/2023 1:12 PM EVENT MARKETING REPRESENTATIVE): Chronic. Continue risk factor modification. Continue ASA and metoprolol. Not currently on NOAC due to history of iron-deficiency anemia due to GI issues and likely also deferred given patient has a degree of cerebral amyloidosis Assessment & Plan (07/03/2023 5:19 PM CDT): Chronic. Controlled. Continue metoprolol and care per Cardiology. He is on aspirin for stroke prevention. Given his cerebral amyloid angiopathy and other risk factors likely not a good candidate for NOAC Assessment & Plan (12/04/2021 1:34 PM CDT): Currently being considered for the Watchman procedure as he is not an anticoagulation candidate Mild vascular dementia with mood disturbance Assessment & Plan (02/06/2024 4:53 PM CDT): Chronic. Memory waxes and wanes but mainly consistent with significant dementia. Encouraged healthy diet and lifestyle modification to help with the memory. Monitor Assessment & Plan (10/03/2023 1:11 PM EVENT MARKETING REPRESENTATIVE): Chronic. Denies significant worsening. No agitation recently. Mood is good. Monitor Assessment & Plan (07/03/2023 5:20 PM CDT): Chronic impairment of short-term memory. Remote evaluation by Neurology. Has a degree of cerebral amyloid angiopathy and vascular dementia. Some issues with short- term memory as well as sleep at night. He is on Lexapro for mood disorder but is not currently on any dementia medication. They denies significant agitation Cerebral amyloid angiopathy ([facility] 02/15/2020 Assessment & Plan (02/06/2024 4:54 PM CDT): Chronic. Memory has worsened slightly in the last year. He does have some fluctuations at times. No real agitation. Target good blood pressure control. Continue aspirin for his other issues. Would be cautious with more aggressive anticoagulation given history of amyloid angiopathy Assessment & Plan (10/03/2023 1:11 PM EVENT MARKETING REPRESENTATIVE): Chronic. Denies any progression of symptoms Assessment & Plan (07/03/2023 5:18 PM CDT): Chronic. Control blood pressure and modify risk factors as able. Continue aspirin given AFib but would be cautious with stronger anticoagulants given increased bleeding risk with cerebral amyloid angiopathy Peripheral artery disease 09/10/2019 Overview (09/10/2019): Added automatically from request for surgery [id number] Assessment & Plan (09/03/2024 10:57 AM EVENT MARKETING REPRESENTATIVE): Stable lower extremity occlusive disease. Continue risk factor modification with ASA statin therapy. Follow up and repeat noninvasives in 1 year. Assessment & Plan (03/01/2024 7:50 AM CDT): Lower extremity vascular disease stable, stable claudication no ischemic rest pain or wounds. Continue risk factor modification ASA statin therapy. Follow up in 6 months with repeat noninvasives. Assessment & Plan (02/06/2024 4:53 PM CDT): Chronic. Denies claudication. Continue ASA atorvastatin Assessment & Plan (01/22/2024 1:47 PM CDT): History of peripheral arterial disease status post previous stent the left lower extremity by Dr. Mchugh. He denies any new symptoms of claudication or rest pain to the lower extremity. Plan: Follow up in the next few weeks with a lower extremity arterial duplex. Assessment & Plan (10/03/2023 1:11 PM EVENT MARKETING REPRESENTATIVE): Chronic. Denies recent claudication symptoms. Continue ASA, statin and Pletal Assessment & Plan (07/03/2023 5:22 PM CDT): Chronic. 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 Denies current sores on his feet. Follows with Podiatry in [place]. On cilostazol Iron deficiency anemia due to chronic blood loss 09/10/2019 Assessment & Plan (02/06/2024 4:57 PM CDT): Patient does have history of chronic anemia due to possible component of GI blood loss as well as potential poor absorption. Has been evaluated by Hematology previously. He remains on B12 injections. Has remotely done iron infusions High risk medications (not anticoagulants) long- term use 09/05/2019 Benign hypertension with stage 3a chronic kidney disease 02/17/2019 Assessment & Plan (11/23/2024 1:35 PM EVENT MARKETING REPRESENTATIVE): BP normal in office, continuing current regimen. Rechecking BMP today. Assessment & Plan (02/06/2024 4:53 PM CDT): Chronic. Renal function has been consistent with chronic kidney disease. Check labs to monitor. Blood pressure is very well-controlled today. He denies any symptoms of lightheadedness. His cardiac medications had been previously adjusted to decrease cardiac risk. If he starts having episodes with lightheadedness or dizziness there may need to consider a dose decrease on 1 of his medications. We will monitor his kidney disease. Limit use of nonsteroidals. Avoid dehydrate Assessment & Plan (10/03/2023 1:10 PM EVENT MARKETING REPRESENTATIVE): Chronic. Blood pressure controlled. Continue current prescription medication. Encouraged healthy diet and lifestyle is able Assessment & Plan (07/03/2023 5:17 PM CDT): Chronic. Blood pressure controlled. Monitor kidney function. Avoid NSAIDs and dehydration. Continue current prescription blood pressure meds Assessment & Plan (12/04/2021 1:34 PM CDT): Blood pressure at target Bruit of left carotid artery 02/17/2019 Crohn's disease of both smal l and large intestine with other complication 01/26/2019 Overview (01/26/2019): Added automatically from request for surgery [id number] Assessment & Plan (02/06/2024 4:52 PM CDT): Chronic. Disease has been stable. Minimal symptoms. He does have to be cautious with eating too many fruits and vegetables as he notes this does cause some GI distress. He remains controlled with Skyrezi and hydroxychloroquine. He will continue Assessment & Plan (10/03/2023 1:10 PM EVENT MARKETING REPRESENTATIVE): Chronic. Symptomatically improved per patient. Continue medication and care per GI Assessment & Plan (07/03/2023 5:20 PM CDT): Chronic. Follows with Gastroenterology. On scar oz and sulfasalazine. Continue medication and care per them CAD (coronary artery disease) 12/04/2018 Assessment & Plan (09/03/2024 10:57 AM EVENT MARKETING REPRESENTATIVE): Stable continue ASA and Lasix Assessment & Plan (02/06/2024 4:51 PM CDT): Chronic. Denies chest pain. Continue risk factor modification with statin, aspirin, blood pressure control. Target LDL less than 70 Assessment & Plan (10/03/2023 1:10 PM EVENT MARKETING REPRESENTATIVE): Chronic. Denies chest pain. Follows with cardiology. Continue risk factor modification and care per specialists Assessment & Plan (07/03/2023 5:16 PM CDT): Chronic. Denies chest pain. Continue risk factor modification. Follows with Cardiology. On ASA, statin. LDL goal less than 70 Assessment & Plan (12/04/2021 1:34 PM CDT): No evidence of chest pain or shortness of breath Anemia 12/30/2017 Assessment & Plan (08/25/2024 4:06 PM EVENT MARKETING REPRESENTATIVE): Updated labs ordered, Hemoglobin was 9 in June. Assessment & Plan (02/06/2024 4:51 PM CDT): Chronic. Mild. Follows with Hematology. On B12 and iron replacement. Monitor labs to determine control Assessment & Plan (12/04/2021 1:34 PM CDT): Patient's CBC is to be followed Anemia due to blood loss, acute 12/30/2017 Assessment & Plan (02/06/2024 4:56 PM CDT): Patient does have history of chronic anemia due to possible component of GI blood loss as well as potential poor absorption. Has been evaluated by Hematology previously. He remains on B12 injections. Has remotely done iron infusions Assessment & Plan (10/03/2023 1:10 PM EVENT MARKETING REPRESENTATIVE): Chronic. Follows with GI and Hematology. Has received iron infusions. Often does B12 injections Assessment & Plan (07/03/2023 5:15 PM CDT): Chronic. Follows with GI and Hematology. Received iron infusions Hypercholesterolemia 02/05/2011 Assessment & Plan (09/03/2024 10:57 AM EVENT MARKETING REPRESENTATIVE): Stable continue statin therapy. Assessment & Plan (03/01/2024 7:50 AM CDT): Stable continue statin therapy. Assessment & Plan (02/06/2024 4:53 PM CDT): Chronic. Tolerates atorvastatin. Continue. Check cholesterol level and adjust for an LDL goal of at least less than 70 with optimal less than 55 Assessment & Plan (10/03/2023 1:10 PM EVENT MARKETING REPRESENTATIVE): Chronic. Tolerates current prescription medication. Continue Assessment & Plan (07/03/2023 5:17 PM CDT): Chronic. Tolerates cholesterol medication. Continue. LDL goal is less than 70 Assessment & Plan (12/04/2021 1:34 PM CDT): Cholesterol reviewed and doing quite well Research exam Resolved Problems Problem Noted Date Diagnosed Date Resolved Date Stage 3a chronic kidney disease 07/03/2023 07/03/2023 Elevated LFTs 03/18/2023 02/06/2024 Hip pain 03/12/2022 07/03/2023 Assessment & Plan (03/12/2022 12:43 PM CDT): Check xray Calculus of bile duct withou t cholecystitis and without obstruction 05/29/2021 07/03/2023 Overview (05/29/2021): Added automatically from request for surgery [id number] Crohn's disease with rectal bleeding 12/10/2018 07/03/2023 Overview (12/10/2018): Added automatically from request for surgery [id number] Peripheral vascular disease 02/13/2017 07/03/2023 Gastrointestinal hemorrhage 07/03/2023 Acute renal failure 07/03/20 23 Crohn's disease of colon with rectal bleeding 07/03/2023 Assessment & Plan (12/04/2021 1:34 PM CDT): Has upcoming endoscopy. Encounters Date Type Department Care Team Description 11/26/2024 Telephone [facility] Primary Care at [address] [address] Preethi Godoy NP Medical Question/Miscellaneous 11/26/2024 Orders Only [facility] Primary Care at [address] [phone] Preethi Godoy NP 11/26/2024 Telephone [facility] Primary Care at [address] [phone] Preethi Godoy NP Symptom Based Call 11/24/2024 Results Follow-Up [facility] Primary Care at [address] [address] Preethi Godoy, ANALYST MICROBIOLOGY LAB 11/23/2024 1:30 PM EVENT MARKETING REPRESENTATIVE Lab [facility] Outpatient Lab at [address] [address] Pneumonia due to infectious organism, unspecified laterality, unspecified part of lung (Primary Dx) 11/23/2024 1:30 PM EVENT MARKETING REPRESENTATIVE Ancillary Procedure [facility] Imaging at [address] [address] Pneumonia due to infectious organism, unspecified laterality, unspecified part of lung 11/23/2024 1:22 PM EVENT MARKETING REPRESENTATIVE - 11/23/2024 11:59 PM EVENT MARKETING REPRESENTATIVE Hospital Encounter [address] [address] Benign hypertension with stage 3a chronic kidney disease (HCC); Iron deficiency anemia due to chronic blood loss Discharge Disposition: Discharge to home or self care 11/23/2024 12:30 PM EVENT MARKETING REPRESENTATIVE Office Visit [facility] Primary Care at [address] [address] Preethi Godoy, ANALYST MICROBIOLOGY LAB Pneumonia due to infectious organism, unspecified laterality, unspecified part of lung (Primary Dx); Iron deficiency anemia due to chronic blood loss; Benign hypertension with stage 3a chronic kidney disease (HCC); Persistent atrial fibrillation (HCC) 11/16/2024 2:00 PM EVENT MARKETING REPRESENTATIVE Ancillary Procedure [facility] Imaging at [address] [address] Acute cough 11/16/2024 Orders Only [facility] Convenient Care at [address] [address] Gladys Valdovinos NP Lower respiratory infection (e.g., bronchitis, pneumonia, pneumonitis, pulmonitis) (Primary Dx) 11/14/2024 11:00 AM EVENT MARKETING REPRESENTATIVE - 11/14/2024 11:59 PM EVENT MARKETING REPRESENTATIVE Hospital Encounter [address] [address] Acute cough Discharge Disposition: Discharge to home or self care 11/14/2024 10:00 AM EVENT MARKETING REPRESENTATIVE Office Visit [facility] at [address] [phone] Mandy Hernandez PA Acute cough (Primary Dx) 11/14/2024 Results Follow-Up [facility] at [address] [address] Mandy Hernandez PA 11/10/2024 Orders Only [facility] Primary Care at [address] [address] Preethi Godoy NP 11/03/2024 Orders Only [facility] G[facility]enter[facility] [address] [facility] [address] [place] [address] [place] [phone] Kath Shepherd MD 10/25/2024 Telephone [facility] Gastroenterology [facility] [address] [place] [address] [place] [phone] Jeannine Newman, TEDDY Med Management ([facility] PAP for 2024) 10/21/2024 10:58 AM EVENT MARKETING REPRESENTATIVE Anesthesia Event [facility] [address] [place] [address] Danyell Maher MD 10/21/2024 10:30 AM EVENT MARKETING REPRESENTATIVE - 10/21/2024 11:15 AM EVENT MARKETING REPRESENTATIVE Surgery [facility] [address] [place] [address] Kath Shepherd MD COLON BIOPSY 10/21/2024 9:15 AM EVENT MARKETING REPRESENTATIVE - 10/21/2024 12:33 PM EVENT MARKETING REPRESENTATIVE Hospital Encounter [facility] [address] [place] [address] Kath Shepherd MD Crohn's disease of both small and large intestine with other complication (HCC) Discharge Disposition: Discharge to home or self care 10/20/2024 Telephone [facility] Primary Care at [address] [phone] Preethi Godoy NP Medical Question/Miscellaneous 10/14/2024 Telephone [facility] Specialty Services [address] [place] [address] [place] [address] Stacey Crane, TEDDY 10/14/2024 Telephone [facility] Specialty Services [facility] [place] [address] Stacey Crane, RN 10/14/2024 Telephone [facility] Specialty Services [address] [place] [phone] Stacey Crane, TEDDY GI PROCEDURE 7 DAY PRE CALL 09/08/2024 1:00 PM EVENT MARKETING REPRESENTATIVE Office Visit [facility] Cardiology [address] [place] [phone] Madai Enrique NP Coronary artery disease involving coronary bypass graft of [place] heart, unspecified whether angina present (Primary Dx); Fatigue, unspecified type; Hypotension, unspecified hypotension type; Persistent atrial fibrillation (HCC); Nonrheumatic mitral valve regurgitation 09/08/2024 Telephone [facility] Gastroenterology [address] [facility] [address] [place] [address] [place] [address] Winifred Rodriges RMA GI pre-procedural assessment 09/01/2024 9:00 AM EVENT MARKETING REPRESENTATIVE Office Visit [facility] Vascular at [address] [place] [address] Shimon Schofield MD Peripheral artery disease (Primary Dx); Hypercholesterolemia; Coronary artery disease involving coronary bypass graft of [place] heart without angina pectoris 09/01/2024 Orders Only [facility] Vascular at [address] [place] [address] Shimon Schofield MD Atherosclerosis of [place] artery of both lower extremities with intermittent claudication (Primary Dx) 09/01/2024 Telephone [facility] Primary Care at [address] [address] Preethi Godoy NP Test Results (Urin culture); Call Back 08/30/2024 2:33 PM EVENT MARKETING REPRESENTATIVE - 08/30/2024 11:59 PM EVENT MARKETING REPRESENTATIVE Hospital Encounter [facility] Imaging [address] [place] [address] Mer Lynn, TEDDY BPH with obstruction/lower urinary tract symptoms Discharge Disposition: Discharge to home or self care 08/30/2024 Telephone [facility] Imaging [address] [address] [address] Robyn Blanco RN 08/30/2024 Telephone [facility] Primary Care at [address] [address] Preethi Godoy, DONALD Medical Question/Miscellaneous 08/30/2024 Orders Only [facility] Primary Care at [address] [phone] Preethi Godoy, ANALYST MICROBIOLOGY LAB from Last 3 Months Immunizations Immunization Administration Dates Next Due Influenza, Quad, Adjuvantate d, Intramuscular 07/05/2022,08/06/2021 Influenza, Quadrivalent, Hig h Dose, Preservative Free, Intrr 07/03/2023,07/17/2020 Influenza, Quadrivalent, Spl it, Preservative Free, Intramuscular 07/14/2015 Influenza, Trivalent, High D ose, Split, Preservative Free, Intramuscular 06/15/2019,08/14/2018,08/14/2018,07/13,07/13/2017,08/06/2016 Influenza, Trivalent, IM (MDV) 07/26/2014,2012 Influenza, Unspecified 06/15/2019,07/13/2017 Pfizer SARS-CoV-2 Monovalent Vaccination (12+ Yrs) PURPLE 12/01/2020,11/09/2020 Pneumococcal Polysaccharide PPV23 08/25/2014 Tdap 12/26/2021,06/06/2014 ZOSTER LIVE 10/03/2015,09/23/2014 Surgical History Surgery Date Site/Laterality Comments COLECTOMY CORONARY ARTERY BYPASS GRAFT 09/22/2008 - 09/21/2009 x2 vessels CARDIAC STENT PLACEMENT 03/26/2019 VASCULAR SURGERY 09/13/2019 Left AIF arteriogram, cutdown left femoral artery removal of foreign body intravascular COLONOSCOPY 11/20/2018 - 12/20/2018 TOE AMPUTATION 09/22/2016 - 09/21/2017 Left ATHERECTOMY 09/22/2016 - 09/21/2017 Left LLE cannulization, arteriogram, angioplasty EXTRACORPOREAL SHOCK WAVE LITHOTRIPSY 09/22/2008 - 09/21/2009 BRONCHOSCOPY 09/22/1997 - 09/21/1998 with biopsy, pleuroscopy, & pleural fluid aspiration CARDIAC CATHETERIZATION 03/26/2019 CHOLECYSTECTOMY POLYPECTOMY UPPER GASTROINTESTINAL ENDOSCOPY FLUORO GUIDED INJECTION HIP RIGHT 06/04/2022 Right CATARACT EXTRACTION FL UPPER GI AIR CONTRAST W KUB 10/15/2022 Bilateral FL UPPER GI AIR CONTRAST W KUB 11/13/2022 Bilateral Medical History Medical History Date Comments Crohn's disease (HCC) Arthritis shoulder Hypertension History of transfusion Iron deficiency anemia due to chronic blood loss 09/10/2019 Coronary artery disease PVD (peripheral vascular disease) Kidney stone Colon polyp Hyperlipidemia Seizures (HCC) Atrial fibrillation (HCC) Vascular dementia (HCC) Gout Chickenpox Family History Medical History Relation Name Comments Heart attack Father Stroke Father Family history of cerebrovascular accident - (Added by TW Conv) Breast cancer Mother Breast cancer Sister Alzheimer's disease Neg Hx Anesthesia problems Neg Hx Relation Name Status Comments Father AR & CVA () age 76 Mother Sister Social History Tobacco Use Types Packs/Day Years Used Date Smoking Tobacco: Former Cigarettes 1 29 1 962 - 1990 Smokeless Tobacco: Never Tobacco Cessation:Counseling Given: Not Answered Alcohol Use Standard Drinks/Week Comments No 0 [...] on file 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 2:24 AM EVENT MARKETING REPRESENTATIVE Gender Identity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 Sexual Orientation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 [employer]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 Obstetrics History Last Filed Vital Signs Vital Sign Reading Time Taken Comments Blood Pressure 120/60 11/23/2024 12:30 PM EVENT MARKETING REPRESENTATIVE Pulse 80 11/23/2024 12:30 PM EVENT MARKETING REPRESENTATIVE Temperature 36.4 C (97.5 F) 11/23/2024 12:30 PM EVENT MARKETING REPRESENTATIVE Respiratory Rate 20 11/14/2024 10:16 AM EVENT MARKETING REPRESENTATIVE Oxygen Saturation 99% 11/14/2024 10:16 AM EVENT MARKETING REPRESENTATIVE Inhaled Oxygen Concentration - - Weight 64 kg (141 lb) 11/23/2024 12:30 PM EVENT MARKETING REPRESENTATIVE Height 177.8 cm (5' 10 ) 11/23/2024 12:30 PM EVENT MARKETING REPRESENTATIVE Body Mass Index 20.23 11/23/2024 12:30 PM EVENT MARKETING REPRESENTATIVE Plan of Treatment Health Maintenance Due Date Last Done Comments Pneumococcal vaccine 65+ (2 of 2 - PCV) 08/25/2015 08/25/2014 Zoster Vaccine (2 of 3) 11/28/2015 10/03/2015, 09/23 Covid-19 Vaccine (4 - 2023-2 5 season) 2024 08/06/2021, 12/01/2020, 11/09/2020 Influenza Vaccine (#1) 2024 , 07/05/2022, 08/06/2021, Additional history exists Well Visit 65+ 02/05/2025 02/06/2024 Fall Risk Assessment 10/21/2025 10/21/2024, 08/25/2024, 05/12/2024, Additional history exists Depression Screening 11/23/2025 11/23/2024, 08/25/2024, 05/12/2024, Additional history exists DTaP/Tdap/Td Vaccine (3 - Td or Tdap) 12/27/2031 12/26/2021, 06/06/2014 Hepatitis C Screening Completed 02/06/2024 Abdominal Aortic Aneurysm (A AA) Screen Completed 02/18/2024, 12/11/2022, 09/09/2014 Colon Cancer Screening-CT Colonography Discontinued 10/21/2024, 08/18/2023, 08/01/2022, Additional history exists Colon Cancer Screening-Colonoscopy Discontinued 10/21/2024, 08/18/2023, 08/01/2022, Additional history exists Colon Cancer Screening-DNA Stool Discontinued 10/21/2024, 08/18/2023, 08/01/2022, Additional history exists Colon Cancer Screening-FIT Discontinued 10/21, 08/18/2023, 08/01/2022, Additional history exists Colon Cancer Screening-FOBT Discontinued 09/24, 08/18/2023, 08/01/2022, Additional history exists Colon Cancer Screening-Sigmoidoscopy Discontinued 10/21/2024, 08/18/2023, 08/01/2022, Additional history exists Colorectal Cancer Screening Discontinued Hepatitis B Screening Discontinued Medical Devices Implanted Type [employer] Device Identifier Shelf Expiration Date Model / Serial / Lot katena Araceli [id number] Synergy 3.5mm 24mm 144cm Radiopaque 1 Access Port Inflation Lumen - [id number] - [id number] Implanted:Qty: 1 on 03/26/2019 by Alban Santana MD at [facility]ent [employer]eli 12/09/2020 [id number] / [id number] / [id number] Procedures Procedure Name Priority Date/Time Associated Diagnosis Comments XR CHEST PA LATERAL 2 VIEWS Schedule Routine, Read Routine (OP Routine) 11/23/2024 1:30 PM EVENT MARKETING REPRESENTATIVE Pneumonia due to infectious organism, unspecified laterality, unspecified part of lung EGFR Routine 11/23/2024 1:22 PM EVENT MARKETING REPRESENTATIVE Benign hypertension with stage 3a chronic kidney disease (HCC) DIFFERENTIAL AUTO Routine 11/23/2024 1:2 2 PM EVENT MARKETING REPRESENTATIVE Iron deficiency anemia due to chronic blood loss Benign hypertension with stage 3a chronic kidney disease (HCC) CBC WITH AUTO DIFFERENTIAL Routine 11/23/2024 1:22 PM EVENT MARKETING REPRESENTATIVE Iron deficiency anemia due to chronic blood loss Benign hypertension with stage 3a chronic kidney disease (HCC) IRON Routine 11/23/2024 1:22 PM EVENT MARKETING REPRESENTATIVE Iron deficiency anemia due to chronic blood loss BASIC METABOLIC PANEL Routine 11/23/2024 1:22 PM EVENT MARKETING REPRESENTATIVE Benign hypertension with stage 3a chronic kidney disease (HCC) XR CHEST PA LATERAL 2 VIEWS Schedule YULIANA, Read YULIANA (Appt Today, Awaiting Results) 11/16/2024 2:07 PM EVENT MARKETING REPRESENTATIVE Acute cough INFLUENZA A/B, RSV, AND COVID-19 PCR Routine 11/14/2024 11:00 AM EVENT MARKETING REPRESENTATIVE Acute cough POC INFLUENZA A/B, COVID-19 ANTIGEN Routine 11/14/2024 10:47 AM EVENT MARKETING REPRESENTATIVE Acute cough SURGICAL PATHOLOGY Routine 10/21/2024 11 :18 AM EVENT MARKETING REPRESENTATIVE Crohn's disease of both small and large intestine with other complication (HCC) COLON BIOPSY 10/21/2024 10:58 AM EVENT MARKETING REPRESENTATIVE Crohn's disease of both small and large intestine with other complication (HCC) COLONOSCOPY 10/21/2024 10:56 AM EVENT MARKETING REPRESENTATIVE HC EST VISIT LEVEL 4 Schedule Routine, Read Routine (OP Routine) 08/30/2024 3:44 PM EVENT MARKETING REPRESENTATIVE BPH with obstruction/lower urinary tract symptoms CTA ABDOMEN PELVIS W WO CONTRAST Schedule Routine, Read Routine (OP Routine) 02/18/2024 12:14 PM CDT PVD (peripheral vascular disease) HEPATITIS C ANTIBODY Routine 02/06/2024 11:23 AM CDT Encounter for hepatitis C screening test for low risk patient from Last 3 Months or Most Recently Relevant to Health Maintenance Results * XR Chest PA Lateral 2 Views (11/23/2024 1:30 PM EVENT MARKETING REPRESENTATIVE) Anatomical Region Laterality Modality Body, Chest N/A Digital Radiogra phy 11/26/2024 2:09 PM EVENT MARKETING REPRESENTATIVE Narrative 11/26/2024 2:11 PM EVENT MARKETING REPRESENTATIVE EXAM DESCRIPTION: XR CHEST PA LATERAL 2 VIEWS REASON FOR STUDY: Follow up pneumonia x 1 month ago Pneumonia f/u x 1 week ago. No symptoms today. History of CAD, CABG, and AFIB. Ex-smoker; quitting in 1990. Smoked about 29 years. TECHNIQUE: Frontal and lateral radiographic view(s) of the chest. COMPARISON: Chest radiograph dated 11/16/2024, 04/30/2022. Relevant portions of the CTA abdomen and pelvis dated 02/18/2024. FINDINGS: The lungs are hyperinflated. Small bilateral pleural effusion with adjacent airspace opacities, [id number]-jlep-left. Right mid chest linear density , linear atelectasis versus fluid or thickening of the minor fissure. No pneumothorax. Cardiomediastinal silhouette is similar in size. Median sternotomy. Calcified plaque at the aortic knob. Degenerative changes in the visualized thoracic spine. IMPRESSION: Mild worsening aeration of the chest when compared to the previous chest radiograph dated 11/16/2024. Further evaluation with a CT as clinically indicated. THIS IS AN ELECTRONICALLY VERIFIED FINAL REPORT 11/26/2024 2:11 PM - Electronically signed by Buck Oleary D.O. AP T: Report ID: [id number] Reading Location: [id number] Procedure Note Buck Oleary, DO - 11/26/2024 EXAM DESCRIPTION: XR CHEST PA LATERAL 2 VIEWS REASON FOR STUDY: Follow up pneumonia x 1 month ago Pneumonia f/u x 1 week ago. No symptoms today. History of CAD, CABG, andAFIB. Ex-smoker; quitting in 1990. Smoked about 29 years. TECHNIQUE: Frontal and lateral radiographic view(s) of the chest. COMPARISON: Chest radiograph dated 11/16/2024, 04/30/2022. Relevantportions of the CTA abdomen and pelvis dated 02/18/2024. FINDINGS: The lungs are hyperinflated. Small bilateral pleural effusionwith adjacent airspace opacities, agyoj-zxpzvgv-bptv-left. Right mid chestlinear density , linear atelectasis versus fluid or thickening of the minorfissure. No pneumothorax. Cardiomediastinal silhouette is similar in size. Median sternotomy. Calcified plaque at the aortic knob. Degenerative changes inthe visualized thoracic spine. IMPRESSION: Mild worsening aeration of the chest when compared to theprevious chest radiograph dated 11/16/2024. Further evaluation with a CT asclinically indicated. THIS IS AN ELECTRONICALLY VERIFIED FINAL REPORT 11/26/2024 2:11 PM - Electronically signed by Buck DOUGLAS T: Report ID: [id number] Reading Location: [place] [address] us Preethi Godoy ANALYST MICROBIOLOGY LAB IMG XR PROCEDURES Final Result * (ABNORMAL) eGFR (11/23/2024 1:22 PM EVENT MARKETING REPRESENTATIVE) Pathologist [facility] eGFR 34(L) >=60 mL/min/1. 73 m2 Comment: Interpretive Data Reference Interval Normal >/= 90 mL/min/1.73m2 Mildly decreased* 60 - 89 mL/min/1.73m2 Mildly to moderately decreased 45 - 59 mL/min/1.73m2 Moderately to severely decreased 30 - 44 mL/min/1.73m2 Severely decreased 15 - 29 mL/min/1.73m2 Kidney Failure < 15 mL/min/1.73m2 *Relative to young adult level Estimated glomerular filtration rate is determined by the 2020 CKD-EPI equation recommended by the National Kidney Foundation (A Unifying Approach to GFR Estimation: Recommendations of the NKF-ASK Task Force on Reassessing the Inclusion of Race in Diagnosing Kidney Disease, JASN 2020). The CKD-EPI equation should not be used for patients with unstable renal function and has not been validated in children and those over 70. Current interpretive data was last reviewed 2021. Blood 11/23/2024 1:22 PM EVENT MARKETING REPRESENTATIVE 11/24/2024 11:14 AM EVENT MARKETING REPRESENTATIVE us Preethi Godoy NP LAB BLOOD ORDERABLES Final Resul t [facility] [address] Department [place] [address] * (ABNORMAL) Differential, auto (11/23/2024 1:22 PM EVENT MARKETING REPRESENTATIVE) Neutrophil abs 6.3 1.5 - 6.5 K/cumm Imm gran abs 0.0 0.0 - 0.1 K/cumm [facility] Lymphocyte abs 0.7(L) 0.8 - 3.3 K/cumm [facility] Monocyte abs 1.0(H) 0.2 - 0.8 K/cumm [facility] Eosinophil abs 0.2 0.0 - 0.5 K/cumm [facility] Basophil abs 0.1 0.0 - 0.1 K/cumm [facility] Neutrophil pct 75.6 % [facility] Comment: Interpretive Data Percent cell count reference ranges are not reported, since discordance with absolute values may lead to misinterpretation of CBC data. Current Interpretive Data was last revised on 2017. Imm gran pct 0.5 % [facility] Comment: Interpretive Data Percent cell count reference ranges are not reported, since discordance with absolute values may lead to misinterpretation of CBC data. Current Interpretive Data was last revised on 2017. Lymphocyte pct 8.8 % [facility] Comment: Interpretive Data Percent cell count reference ranges are not reported, since discordance with absolute values may lead to misinterpretation of CBC data. Current Interpretive Data was last revised on 2017. Monocyte pct 11.6 % [facility] Comment: Interpretive Data Percent cell count reference ranges are not reported, since discordance with absolute values may lead to misinterpretation of CBC data. Current Interpretive Data was last revised on 2017. Eosinophil pct 2.9 % [facility] Comment: Interpretive Data Percent cell count reference ranges are not reported, since discordance with absolute values may lead to misinterpretation of CBC data. Current Interpretive Data was last revised on 2017. Basophil pct 0.6 % [facility] Comment: Interpretive Data Percent cell count reference ranges are not reported, since discordance with absolute values may lead to misinterpretation of CBC data. Current Interpretive Data was last revised on 2017. Blood 11/23/2024 1:22 PM EVENT MARKETING REPRESENTATIVE 11/24/2024 11:08 AM EVENT MARKETING REPRESENTATIVE us Preethi Godoy NP LAB BLOOD ORDERABLES Final Resul t [facility] [id number] [place] [address] * (ABNORMAL) CBC with auto differential (11/23/2024 1:22 PM EVENT MARKETING REPRESENTATIVE) [facility] WBC 8.4 3.8 - 9.9 K/cumm Hgb 9.7(L) 13.0 - 17.5 g/dL [facility] Hct 31.3(L) 38.9 - 50.3 % [facility] Plt 179 150 - 400 K/cumm [facility] MPV 10.2 9.1 - 12.3 fL [facility] RBC 3.12(L) 4.30 - 5.80 M/cumm [facility] MCV 100.3(H) 81.3 - 96.4 fL [facility] MCH 31.1 27.1 - 33.3 pg [facility] MCHC 31.0(L) 32.3 - 35.7 g/dL [facility] RDW CV 17.2(H) 11.1 - 14.9 % [facility] RDW SD 64.2(H) 35.7 - 48.1 fL [facility] NRBC abs 0.00 0.00 - 0.01 K/cumm [facility] Blood 11/23/2024 1:22 PM EVENT MARKETING REPRESENTATIVE 11/24/2024 11:08 AM EVENT MARKETING REPRESENTATIVE Preethi Godoy NP LAB BLOOD ORDERABLES Final Resul t Performing Organization Address City/[facility]/ZIP Co de Phone Number [facility] [id number] Department [place] [address] * (ABNORMAL) Iron level (11/23/2024 1:22 PM EVENT MARKETING REPRESENTATIVE) [facility] Iron 47(L) 50 - 150 mcg/dl Blood 11/23/2024 1:22 PM EVENT MARKETING REPRESENTATIVE 11/24/2024 11:08 AM EVENT MARKETING REPRESENTATIVE us Preethi Godoy NP LAB BLOOD ORDERABLES Final Resul t [facility] [address] [place] [address] * (ABNORMAL) Basic metabolic panel (11/23/2024 1:22 PM EVENT MARKETING REPRESENTATIVE) Sodium 141 135 - 145 mmol/L Potassium, pl 3.6 3.3 - 4.9 mmol/L [facility] Chloride 109 97 - 110 mmol/L [facility] CO2 21(L) 22 - 32 mmol/L [facility] Anion gap 11 2 - 15 mmol/L [facility] BUN 18 6 - 25 mg/dL [facility] Creatinine 1.97(H) 0.80 - 1.30 mg/dL [facility] Glucose 75 70 - 199 mg/dL [facility] Comment: Interpretive Data Fasting glucose >/= 126 mg/dl is diagnostic for diabetes. Fasting is defined as no caloric intake for at least 8 hours. Fasting glucose between 100 mg/dl to 125 mg/dl is diagnostic of prediabetes. In a patient with classic symptoms of hyperglycemia or hyperglycemic crisis, a random glucose >/= 200 mg/dl is diagnostic for diabetes. In the absence of unequivocal hyperglycemia, results should be confirmed by repeat testing. The classification and Diagnosis of Diabetes Diabetes Care 2021; 46: S19-S40. Current interpretive data was last revised 2022. Calcium 8.1(L) 8.5 - 10.3 mg/dL [facility] Blood 11/23/2024 1:22 PM EVENT MARKETING REPRESENTATIVE 11/24/2024 11:08 AM EVENT MARKETING REPRESENTATIVE Preethi Godoy NP LAB BLOOD ORDERABLES Final Resul t [facility] [address] Department [place] [address] * XR Chest Pa Lateral 2 Views (11/16/2024 2:07 PM EVENT MARKETING REPRESENTATIVE) Anatomical Region Laterality Modality Body, Chest N/A Digital Radiogra phy 11/16/2024 3:45 PM EVENT MARKETING REPRESENTATIVE Narrative 11/16/2024 3:51 PM EVENT MARKETING REPRESENTATIVE EXAM DESCRIPTION: XR CHEST PA LATERAL 2 VIEWS REASON FOR STUDY: cough Pt complains of cough, congestion for awhile per pt. History of CAD, CABG, and AFIB. Ex-smoker; quitting in 1990. Smoked about 29 years. TECHNIQUE: There are 2 radiographic view(s) of the chest. COMPARISON: Prior CT 02/18/2024. X-rays 01/25/2022 in 07/07/2018. FINDINGS: LUNGS: Pulmonary vascularity appears normal. Hyperinflation of the lungs favors underlying emphysematous change. Mild oblique opacity peripheral aspect right lower chest. Infiltrate and or atelectasis. Minimal blunting of the right costophrenic angle. This is seen on the older CT of 01/25/2022. Small effusion possible and/or scarring. Small effusion was seen on 02/18/2024. Minimal blunting left costophrenic angle. HEART/MEDIASTINUM: Prior median sternotomy. Tortuosity of the aorta. Otherwise, normal cardiomediastinal silhouette. Tiny surgical clips favoring CABG. LINES/TUBES: None. BONES: Mild to moderate spondylosis. No acute findings. IMPRESSION: 1. Oblique opacity right lower chest may reflect atelectasis or infiltrate. Adjacent blunting of the costophrenic angle favors small effusion. 2. Minimal opacity left costophrenic angle. THIS IS AN ELECTRONICALLY VERIFIED FINAL REPORT 11/16/2024 3:51 PM - Electronically signed by Jeffery Dawkins M.D. MJ T: Report ID: [id number] Reading Location: [id number] Procedure Note Jeffery Dawkins MD - 11/16/2024 EXAM DESCRIPTION: XR CHEST PA LATERAL 2 VIEWS REASON FOR STUDY: cough Pt complains of cough, congestion for awhile per pt. History of CAD, CABG,and AFIB. Ex-smoker; quitting in 1990. Smoked about 29 years. TECHNIQUE: There are 2 radiographic view(s) of the chest. COMPARISON: Prior CT 02/18/2024. X-rays 01/25/2022 in 07/07/2018. FINDINGS: LUNGS: Pulmonary vascularity appears normal. Hyperinflation ofthe lungs favors underlying emphysematous change. Mild oblique opacityperipheral aspect right lower chest. Infiltrate and or atelectasis. Minimalblunting of the right costophrenic angle. This is seen on the older CT of 01/25/2022. Small effusion possible and/or scarring. Small effusion was seen on 02/18/2024. Minimal blunting left costophrenic angle. HEART/MEDIASTINUM: Prior median sternotomy. Tortuosity of the aorta. Otherwise, normal cardiomediastinal silhouette. Tiny surgical clipsfavoring CABG. LINES/TUBES: None. BONES: Mild to moderate spondylosis. No acute findings. IMPRESSION: 1. Oblique opacity right lower chest may reflect atelectasis orinfiltrate. Adjacent blunting of the costophrenic angle favors small effusion. 2. Minimal opacity left costophrenic angle. THIS IS AN ELECTRONICALLY VERIFIED FINAL REPORT 11/16/2024 3:51 PM - Electronically signed by Jeffery Dawkins M.D. MJ T: Report ID: [id number] Reading Location: [id number] [facility] XR PROCEDURES Final Result * (ABNORMAL) Influenza A/B, RSV, and COVID-19 PCR Nasopharyngeal (11/14/2024 11:00 AM EVENT MARKETING REPRESENTATIVE) [facility] COVID-19 RNA Negative Negative Influenza A RNA Negative Negative [facility] Influenza B RNA Negative Negative [facility] RSV RNA Positive(A) Negative [facility] Comment: Interpretive data: Testing performed by [facility]. This test is performed using the [employer] Xpert Xpress CoV-2/Flu/RSV plus assay. This is a multiplex, real-time reverse transcriptase PCR assay intended for the qualitative detection of nucleic acid from SARS-CoV-2, influenza A, influenza B, and respiratory syncytial virus. This assay has been cleared by the [place] Food and Drug administration. The performance characteristics have been verified by the [facility]. Results must be considered in the clinical context, and a negative result does not rule out infection. Interpretive Data last revised 2023 Nasopharyngeal 11/14/2024 11 :00 AM EVENT MARKETING REPRESENTATIVE 11/14/2024 2:41 PM EVENT MARKETING REPRESENTATIVE Narrative [facility] - 11/14/2024 3:32 PM EVENT MARKETING REPRESENTATIVE Is the Patient experiencing symptoms consistent with COVID?->Yes [facility] MICROBIOLOGY - GENER AL ORDERABLES Final Result [facility] [address] Department [place] [address] * POC Influenza A/B, COVID-19 antigen (11/14/2024 10:47 AM EVENT MARKETING REPRESENTATIVE) Influenza A Ag, POC Negative Negative [facility] Influenza B Ag, POC Negative Negative [facility] COVID-19 Ag POC Presumptive Negative Presumptive Negative, Invalid [facility] Nasal 11/14/2024 10:4 7 AM EVENT MARKETING REPRESENTATIVE [facility] [place] CARE TEST ORDER MANJINDER Final Result Performing Organization Address City/[facility] Co de Phone Number BJ[facility] EDW [phone] * Surgical pathology (10/21/2024 11:18 AM EVENT MARKETING REPRESENTATIVE) Tissue (Ileum, Biopsy) 10/21/2024 11:18 AM EVENT MARKETING REPRESENTATIVE Tissue (Colon, Biopsy) 10/21/2024 11:31 AM EVENT MARKETING REPRESENTATIVE Narrative PATHOLOGY [facility] - 10/22/2024 11:22 AM EVENT MARKETING REPRESENTATIVE EPIC results best viewed via link to PDF [facility] [place] [address] Note to Patients: This report may contain a detailed description of human tissue sent by a health care provider to the laboratory for pathologic evaluation. The content of this report is essential for diagnosis and may provide important critical findings. This information may be unfamiliar to patients to review without a medical professional present. It is advised that the patient review this report in the presence of a health care provider who can answer questions and explain the details. SURGICAL PATHOLOGY REPORT FINAL Patient Name: AZIZA LOYA Gender: M : 1945 (Age: 79) Address: [address] [place] [address] [place] [address] [facility] #: [id number] Taken:10/21/2024 Received:10/21/2024 Reported: 10/22/2024 Patient Type: [facility] SDS Service: Gastro Location: Physician(s): Edmund Waterman F.N.P. Diagnosis: A. Small intestine, terminal ileum, endoscopic biopsy - No histopathologic abnormality - No evidence of acute or chronic ileitis, ulcers, or granulomas - No dysplasia or malignancy B. Large intestine, random colon, endoscopic biopsy - No histopathologic abnormality - No evidence of active colitis, chronic colitis, ulcers, or granulomas - No dysplasia or malignancy jhr/10/22/2024 11:22 By this signature, I attest that the above diagnosis is based upon my personal examination of the slides(and/or other material indicated in the diagnosis). Erlin Mancera MD Report Electronically Reviewed and Signed Out By Erlin Mancera MD 10/22/2024 11:22:15 Microscopic Description and Comment: Microscopic examination substantiates the above cited diagnosis. History: The patient is a 79-year-old man presenting with Crohn's disease. Operative procedure: Colonoscopy, with findings of Crohn's disease in remission. Specimen(s) Received: A: Terminal ileum B: Random colon Gross Description: Received in two formalin jars labeled with the patient's identifiers. A. Labeled terminal ileum and consists of a single de la cruz-brown fragment(s) of soft tissue measuring 0.5 cm in greatest dimension. Labeled A1. Jar 0. B. Labeled random colon and consists of multiple de la cruz to de la cruz-pink fragment(s) of soft tissue measuring 1.3 x 0.5 x 0.2 cm in aggregate. Labeled B1. Jar 0. sxst/10/21/2024 15:07 PA(s): Aye Brito By this signature, I attest that the above diagnosis is based upon my personal examination of the slides(and/or other material). Addenda/Procedures The performance characteristics of some immunohistochemical stains, fluorescence in-situ hybridization tests and immunophenotyping by flow cytometry cited in this report (if any) were determined by the Surgical Pathology and Flow Cytometry Departments at [facility] as part of an ongoing senior software quality engineer program and in compliance with federally mandated regulations drawn from the Clinical Laboratory Improvement Act of 1988 (CLIA '88). Some of these tests rely on the use of analyte specific reagents and are subject to specific labeling requirements by the US Food and Drug Administration. Such diagnostic tests may only be performed in a facility that is certified by the Department of Health and Human Services as a high complexity laboratory under CLIA '88. The FDA has determined that such clearance or approval is not necessary. This test is used for clinical purposes. It should not be regarded as investigational or for research. Nevertheless, federal rules concerning the medical use of analyte specific reagents require that the following disclaimer be attached to the report: This test was developed and its performance characteristics determined by the Surgical Pathology and Flow Cytometry Departments of [facility]. It has not been cleared or approved by the U. S. Food and Drug Administration. IMAGES AND SCANNED DOCUMENTS, IF INCLUDED, ONLY VIEWABLE IN PDF VERSION OF REPORT Kath Shepherd MD LAB PATHOLOGY ORDERABLES Laly l Result PATHOLOGY [facility] 3rd Floor [place], [place] [phone] * Colonoscopy (10/21/2024 10:56 AM EVENT MARKETING REPRESENTATIVE) Anatomical Region Laterality Modality Other Narrative Procedure Note Kath Shepherd MD - 10/21/2024 10:56 AM CST [facility] ENDOSCOPY [facility] Patient Name: Aziza Loya Procedure Date: 10/21/2024 10:56 AM Date of : 1945 Admit Type: Outpatient Age: 79 Gender: Male Attending MD: Kath Shepherd M.D. Room: [facility] ENDOSCOPY ROOM 3 Note Status: Finalized Procedure: Colonoscopy Indications: Disease activity assessment of Crohn's disease ofthe small bowel and colon Referring MD: Ivy Emmanuel Providers: Kath Shepherd M.D., Isabell Bella M.D. Medicines: Monitored Anesthesia Care Complications: No immediate complications. Estimated blood loss: Minimal. Estimated Blood Loss: Estimated blood loss was minimal. Procedure: Pre-Anesthesia Assessment: - Immediately prior to administration ofmedications, the patient was re-assessed for adequacy to receive sedatives. - The risks and benefits of the procedure and the sedation options and risks were discussed with the patient. All questions were answered and informed consent was obtained. The benefits, risks and alternatives of theprocedure and sedation were discussed and informed consentwas obtained. All questions were answered. Please referto the signed informed consent document in the medical record. The scope was passed under direct vision.The [facility] [id number] endoscope was introducedthrough the anus and advanced to 10 cm into the ileum. The colonoscopy was performed without difficulty. The patient tolerated the procedure well. The qualityof the bowel preparation was excellent. The bowel preparation used was Miralax via single dose instruction. Findings: The perianal and digital rectal examinations were normal. The Simple Endoscopic Score for Crohn's Disease was determined basedon the endoscopic appearance of the mucosa in the following segments: - Ileum: Findings include no ulcers present, no ulcerated surfaces,no affected surfaces and no narrowings. Segment score: 0. - Right Colon: Findings include no ulcers present, no ulcerated surfaces, no affected surfaces and no narrowings. Segment score: 0. - Transverse Colon: Findings include no ulcers present, no ulcerated surfaces, no affected surfaces and no narrowings. Segment score: 0. - Left Colon: Findings include no ulcers present, no ulceratedsurfaces, no affected surfaces and no narrowings. Segment score: 0. - Rectum: Findings include no ulcers present, no ulcerated surfaces,no affected surfaces and no narrowings. Segment score: 0. - Total SES-CD aggregate score: 0. Biopsies were taken with a cold forceps for histology. The retroflexed view of the distal rectum and anal verge was normaland showed no anal or rectal abnormalities. Impression: - Simple Endoscopic Score for Crohn's Disease: 0, mucosal inflammatory changes secondary to Crohn's disease, in remission. Biopsied. - The distal rectum and anal verge are normal on retroflexion view. Recommendation: - Await pathology results. - Continue present medications. Electronically signed by Kath Shepherd MD Kath Shepherd M.D. 10/21/2024 11:56:53 AM . Number of Addenda: 0 Note Initiated On: 10/21/2024 10:56 AM us Kath Shepherd MD ENDOSCOPY PROCEDURES Final Re sult * Consult to Interventional Radiology (Community) (08/30/2024 3:44 PM EVENT MARKETING REPRESENTATIVE) Anatomical Region Laterality Modality N/A X-Ray Angiograph y 08/30/2024 3:47 PM EVENT MARKETING REPRESENTATIVE Impressions 08/30/2024 3:47 PM EVENT MARKETING REPRESENTATIVE Patient has history of prior prostate surgery, and he is not a good candidate for PAE. Complete details regarding this office visit can be found in [facility] under the Notes tab. Electronically signed by: Phan Hudson M.D. Narrative 08/30/2024 3:47 PM EVENT MARKETING REPRESENTATIVE EXAMINATION: [facility] INTERVENTIONAL RADIOLOGY CLINIC VISIT HISTORY: 79-year-old male patient with lower urinary tract symptoms, ears for evaluation for prostatic artery embolization. Procedure Note Phan Hudson MD - 08/30/2024 EXAMINATION: [facility] INTERVENTIONAL RADIOLOGY CLINIC VISIT HISTORY: 79-year-old male patient with lower urinary tract symptoms, ears for evaluation for prostatic artery embolization. IMPRESSION: Patient has history of prior prostate surgery, and he is not a good candidate for PAE. Complete details regarding this office visit can be found in Epic under the Notes tab. Electronically signed by: Phan Hudson M.D. Phan Hudson MD IMG IR PROCEDURES Final Re sult * CTA Abdomen Pelvis (02/18/2024 12:14 PM CDT) Anatomical Region Laterality Modality Body N/A Computed Tomogra phy 02/24/2024 1:30 PM CDT Narrative 02/24/2024 1:43 PM CDT EXAM DESCRIPTION: CTA ABDOMEN PELVIS REASON FOR STUDY: PVD Patient with a history of PVD for years with a history of worsening pain over the last year, patient has had stents placed in his left leg- as well as history of repair left femoral artery, history of hypertension, chron's, colectomy TECHNIQUE: CTA scan of the abdomen and pelvis performed without and with intravenous and without oral contrast using helical scanning technique with dynamic intravenous contrast injection. Precontrast, arterial, and portal venous phase images of the abdomen and pelvis were acquired. Images reviewed with lung, soft tissue and bone windows. Reconstructed coronal and sagittal MPR images reviewed. All images stored on PACS. 3D MIP images rendered on scanning unit and reviewed at time of interpretation. Automated exposure control was used as a dose optimization technique for this examination. CONTRAST TYPE/DOSE: 100mL of IOVERSOL 350 MG IODINE/ML INTRAVENOUS SYRINGE injected via intravenous COMPARISON: 12/11/2022 FINDINGS: VASCULATURE: No dissection, aneurysm, intramural hematoma, rupture, or penetrating atherosclerotic ulcer. No large vessel occlusion. CELIAC TRUNK: Patent with moderate, 50-75% proximal stenosis due to calcified plaque. SUPERIOR MESENTERIC ARTERY: No flow limiting stenosis, dissection, or aneurysm. RIGHT RENAL ARTERY: No flow limiting stenosis, dissection, or aneurysm. LEFT RENAL ARTERY: No flow limiting stenosis, dissection, or aneurysm. INFERIOR MESENTERIC ARTERY: Patent with heavy calcification obscuring detail suggesting underlying proximal severe stenosis. AORTA: No flow limiting stenosis, dissection, or aneurysm. ILIAC ARTERIES: Heavy calcifications within the common iliac arteries bilaterally. On the right this could produce 75% stenosis though somewhat obscured by beam hardening. Heavy calcification common femoral bifurcation with suspected 50-75% stenosis. On the left, 50-75% stenosis of the common iliac is suggested. The left common femoral artery demonstrates calcification obscuring detail proximal segments of 50-75% stenosis. LOWER CHEST: Moderate bilateral pleural effusions are new from previous. Band like densities most suggestive of atelectasis. Curvilinear components on the right may indicate regions of rounded atelectasis. Heart size is enlarged. Sternotomy wires are noted. Extensive coronary arterial calcifications. LIVER: Normal size. No identified cystic or solid masses. GALLBLADDER: Surgically absent with clips in place BILE DUCTS: No intrahepatic or extrahepatic ductal dilatation. SPLEEN: Normal size. No focal lesions. PANCREAS: No identified cystic or solid masses. No significant calcifications. No adjacent inflammation or peripancreatic fluid collections. Pancreatic duct not dilated. ADRENALS: Normal. KIDNEYS/URINARY TRACT: No stone or hydronephrosis. No hydroureter. Urinary bladder is markedly distended. Please correlate clinically for bladder outlet obstruction. GI: The stomach appears unremarkable. Loops of small bowel have normal caliber. Region of terminal ileum demonstrates wall thickening extending to cecum. Adjacent surgical clips are seen in the region. Please correlate past history and consider inflammatory bowel disease. Cecum and colon demonstrates moderate to large amount of stool throughout with moderate gaseous distention. PERITONEUM: No ascites or free air. RETROPERITONEUM: No mass or adenopathy. REPRODUCTIVE: No significant abnormality. MUSCULOSKELETAL: Ventral hernia containing only fat similar to slightly less pronounced than previous with no surrounding induration OTHER: No other abnormality. IMPRESSION: No aortic aneurysm or dissection. 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 Moderately severe stenosis common iliac arteries and common femoral arteries as discussed above. Moderate bilateral pleural effusions with adjacent probable atelectasis and rounded atelectasis right lung base. Markedly distended urinary bladder may indicate bladder outlet obstruction. Wall thickening terminal ileum and cecum with adjacent surgical clips may indicate inflammatory bowel disease. Please correlate clinically and consider endoscopy. Ventral hernia containing only fat similar to slightly less pronounced than previous. THIS IS AN ELECTRONICALLY VERIFIED FINAL REPORT 02/24/2024 1:43 PM - Electronically signed by Steven RAJPUT T: Report ID: [id number] Reading Location: [id number] Procedure Note Steven Ruano MD - 02/24/2024 EXAM DESCRIPTION: CTA ABDOMEN PELVIS REASON FOR STUDY: PVD Patient with a history of PVD for years with a history of worsening painover the last year, patient has had stents placed in his left leg- as well as history of repair left femoral artery, history of hypertension, chron's, colectomy TECHNIQUE: CTA scan of the abdomen and pelvis performed without and with intravenous and without oral contrast using helical scanning techniquewith dynamic intravenous contrast injection. Precontrast, arterial, and portal venous phase images of the abdomen and pelvis were acquired. Images reviewed with lung, soft tissue and bone windows. Reconstructed coronaland sagittal MPR images reviewed. All images stored on PACS. 3D MIP images rendered on scanning unit and reviewed at time of interpretation.Automated exposure control was used as a dose optimization technique for this examination. CONTRAST TYPE/DOSE: 100mL of IOVERSOL 350 MG IODINE/ML INTRAVENOUSSYRINGE injected via intravenous COMPARISON: 12/11/2022 FINDINGS: VASCULATURE: No dissection, aneurysm, intramural hematoma, rupture, or penetrating atherosclerotic ulcer. No large vesselocclusion. CELIAC TRUNK: Patent with moderate, 50-75% proximal stenosis due to calcified plaque. SUPERIOR MESENTERIC ARTERY: No flow limiting stenosis, dissection, or aneurysm. RIGHT RENAL ARTERY: No flow limiting stenosis, dissection, or aneurysm. LEFT RENAL ARTERY: No flow limiting stenosis, dissection, or aneurysm. INFERIOR MESENTERIC ARTERY: Patent with heavy calcification obscuringdetail suggesting underlying proximal severe stenosis. AORTA: No flow limiting stenosis, dissection, or aneurysm. ILIAC ARTERIES: Heavy calcifications within the common iliac arteries bilaterally. On the right this could produce 75% stenosis though somewhat obscured bybeam hardening. Heavy calcification common femoral bifurcation with suspected 50-75% stenosis. On the left, 50-75% stenosis of the common iliac is suggested. The left common femoral artery demonstrates calcification obscuring detail proximal segments of 50-75% stenosis. LOWER CHEST: Moderate bilateral pleural effusions are new from previous. Band like densities most suggestive of atelectasis. Curvilinearcomponents on the right may indicate regions of rounded atelectasis. Heart size is enlarged. Sternotomy wires are noted. Extensive coronary arterial calcifications. LIVER: Normal size. No identified cystic or solid masses. GALLBLADDER: Surgically absent with clips in place BILE DUCTS: No intrahepatic or extrahepatic ductal dilatation. SPLEEN: Normal size. No focal lesions. PANCREAS: No identified cystic or solid masses. No significant calcifications. No adjacent inflammation or peripancreatic fluidcollections. Pancreatic duct not dilated. ADRENALS: Normal. KIDNEYS/URINARY TRACT: No stone or hydronephrosis. No hydroureter. Urinary bladder is markedly distended. Please correlate clinicallyfor bladder outlet obstruction. GI: The stomach appears unremarkable. Loops of small bowel have normal caliber. Region of terminal ileum demonstrates wall thickening extending to cecum. Adjacent surgical clips are seen in the region. Please correlate pasthistory and consider inflammatory bowel disease. Cecum and colon demonstrates moderate to large amount of stool throughoutwith moderate gaseous distention. PERITONEUM: No ascites or free air. RETROPERITONEUM: No mass or adenopathy. REPRODUCTIVE: No significant abnormality. MUSCULOSKELETAL: Ventral hernia containing only fat similar to slightlyless pronounced than previous with no surrounding induration OTHER: No other abnormality. IMPRESSION: No aortic aneurysm or dissection. Moderately severe stenosis celiac artery and inferior mesenteric arteryas discussed above. Moderately severe stenosis common iliac arteries and common femoralarteries as discussed above. Moderate bilateral pleural effusions with adjacent probable atelectasisand rounded atelectasis right lung base. Markedly distended urinary bladder may indicate bladder outletobstruction. Wall thickening terminal ileum and cecum with adjacent surgical clips may indicate inflammatory bowel disease. Please correlate clinically andconsider endoscopy. Ventral hernia containing only fat similar to slightly less pronouncedthan previous. THIS IS AN ELECTRONICALLY VERIFIED FINAL REPORT 02/24/2024 1:43 PM - Electronically signed by Steven Ruano M.D. RB T: Report ID: [id number] Reading Location: [place] [address] PROCEDURES Final Res ult * Hepatitis C antibody Blood (02/06/2024 11:23 AM CDT) Hep C Ab Nonreactive Nonreactive Comment: Interpretive Data Nonreactive: Antibodies to HCV not detected. Does NOT exclude the possibility of recent exposure to HCV. Equivocal: Equivocal for HCV antibodies. Supplemental molecular testing will be automatically performed to determine infection status in accordance with current CDC screening recommendations. Reactive: Positive for HCV antibodies. This may represent current or past HCV infection. Supplemental molecular testing will be automatically performed to determine current infection status in accordance with current CDC screening recommendations. Interpretive data was last revised on 2019. Blood 02/06/2024 11:2 3 AM CDT 02/06/2024 2:01 PM CDT Anayeli Lee MD LAB MICROBIOLOGY - GEN ERAL ORDERABLES Final Result Performing Organization Address City/State/[place] [address] [address] Department [place] [address] from Last 3 Months or Most Recently Relevant to Health Maintenance Insurance [facility] MEDICARE MEDICARE [facility] MEDICARE [facility] MEDICARE [facility] MEDICARE [facility] Advance Directives For more information, please contact: [phone] * Full Code (Latest Code Status on File) Date Activated Date Inactivated Comments 10/21/2024 10:19 AM 10/21/2024 4:33 PM * Full Code Date Activated Date Inactivated Comments 04/15/2023 9:01 AM 04/15/2023 4:30 PM * Full Code Date Activated Date Inactivated Comments 04/15/2023 8:34 AM 04/15/2023 9:01 AM * Full Code Date Activated Date Inactivated Comments 08/01/2022 10:45 AM 08/01/2022 6:21 PM * Full Code Date Activated Date Inactivated Comments 05/17/2022 10:45 AM 05/17/2022 5:55 PM Care Teams Net Mvc Developer Relationship Specialty Start Date End Date Preethi Godoy NP [address] [facility] [address] [place] [address] PCP - General Family Medicine 08/25/24 Kath Shepherd MD [address] [place] [address] Consulting Physician Gastroenterology 07/22/19 Peter Ya MD [address] [place] [address] Cartridge Maker Cardiology 07/22/19 Aziza Ledesma MD [address] [place] [address] Consulting Physician Neurology 07/22/19 Joshua Butterfield MD [address] [facility] [address] [place] [address] Consulting Physician Urology 07/03/23 Jeffery Bustillos MD [address] [facility] [address] [place], [place] [id number] Consulting Physician Cardiovascular Disease 02/06/24 Shimon Schofield MD [address] [facility] [address] [place] [address] [place] [id number] Consulting Physician Vascular Surgery 02/06/24
--- OUTSIDE RECORDS SUMMARY | 2024-11-26 16:53 | XMS_ITS | Encounter Summary ---
Author Organization [facility] Healthcare Address [address] [place] [address] Care Team Providers Care Ceo Name Role Phone Kath Shepherd MD Unavailable [phone] Peter Ya MD Unavailable [phone] Vitaly Ledesma MD Unavailable [phone] Joshua Butterfield MD Unavailable [phone] Jeffery Bustillos MD Unavailable [phone] Shimon Schofield MD Unavailable Preethi Godoy NP Primary Care Provider [phone] Reason for Visit * Reason Onset Date Comments Medical Question/Miscellaneous 11/26/2024 Encounter Details Date Type Department Care Team (Late st Contact Info) Description 11/26/2024 Telephone [facility] Medical [facility] Primary Care at [address] [address] Preethi Godoy NP [address] [place] [address] [address] [place] [address] Medical Question/Miscellaneous Social History Tobacco Use Types Packs/Day Years Used Date Smoking Tobacco: Former Cigarettes 1990 Smokeless Tobacco: Never Alcohol Use Standard [...] on file 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 2:24 AM NET DEVELOPMENT MANAGER Gender Identity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 Sexual Orientation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 Start Date Job 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 [facility] transferred Megan to the backline. Does message need to be routed? No DEVELOPMENT MANAGER * Telephone Encounter - Kassie Crooks - 11/26/2024 3:56 PM CST Medical Question/Miscellaneous Caller???s Concern: They are asking for the orders for the Ct WO contrast and are asking them to besent YULIANA. ice resurfacing machine operators tried back line no answer 2x. Please fax to [phone] Does message need to be routed? Yes-Action Needed DEVELOPMENT MANAGER documented in this encounter Plan of Treatment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 documented as of this encounter Visit Diagnoses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documented in this encounter Care Teams Ceo Relationship Specialty Start Date End Date Preethi Godoy NP [address] [facility] [address] [place] [address] PCP - General Family Medicine 08/25/24 Kaht Shepherd MD [address] [place] [address] Consulting Physician Gastroenterology 07/22/19 Peter Ya MD [address] [place] [address] Salesperson Furs Cardiology 07/22/19 Vitaly Ledesma MD [address] [place] [address] Consulting Physician Neurology 07/22/19 Joshua Butterfield MD [address] [facility] [address] [place] [address] Consulting Physician Urology 07/03/23 Jeffery Bustillos MD [address] [facility] [address] [facility] [address] [place] [address] Consulting Physician Cardiovascular Disease 02/06/24 Shimon Schofield MD [address] [address] Consulting Physician Vascular Surgery 02/06/24 documented as of this encounter
--- OUTSIDE RECORDS SUMMARY | 2024-11-26 16:53 | XMS_ITS | Continuity of Care Document ---
Author Name [facility] Organization [facility] Care Team Providers Care Fluorescent Lighting Model Maker Name Role Phone [facility] Unavailable Unavailable Encounters Combined list of: 1) Encounters from [facility] facilities going backup to the last 18 months, not all [facility] inpatient encounters are included; 2) Encounters from the Department of [facility] facilities going backup to 280 months. Location Location Details Encounter Type Encounter Number Reason For Visit Attending Provider ADM Date DC Date Status Disposition Source [facility] Outpatient Encounter [id number] 07/27 [facility]
--- OUTSIDE RECORDS SUMMARY | 2024-11-26 16:53 | XMS_ITS | Encounter Summary ---
Author Organization [facility] Address [address] [place] [address] Care Team Providers Care Site Superintendent Name Role Phone John Kimbrough MD Primary Care Provider Kath Shepherd MD Unavailable [phone] Peter Ya MD Unavailable [phone] Vitaly Ledesma MD Unavailable [phone] Anayeli Lee MD Primary Care Provider Joshua Butterfield MD Unavailable [phone] Jeffery Bustillos MD Unavailable [phone] Shimon Schofield MD Unavailable Preethi Godoy NP Primary Care Provider [phone] Encounter Details Date Type Department Care Team (Late st Contact Info) Description 03/26/2019 Documentation [facility] [address] [place] [address] Kaykay Jason, TEDDY Social History Tobacco Use Types Packs/Day Years Used Date Smoking Tobacco: Former Smokeless Tobacco: Never Alcohol Use Standard Drinks/Week Comments No 0 (1 standard drink = 0.6 oz pur e alcohol) Sex and Gender Information Value Date Recorded Sex Assigned at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 Gender Identity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 Sexual Orientation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 documented as of this encounter Plan of Treatment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 documented as of this encounter Visit Diagnoses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documented in this encounter Additional Health Concerns Infection Onset Date Last Indicated Resolved Time COVID: Suspected 08/21/2021 08/21/2021 08/21/2021 11:38 AM MAJOR 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 COVID: Suspected 11/14/2024 11/14/2024 11/14/2024 10:49 AM MAJOR 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 COVID: Suspected 11/14/2024 11/14/2024 11/14/2024 3:33 PM MAJOR 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 RSV, droplet 11/14/2024 11/14/2024 11/21/2024 3:07 AM MAJOR 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 documented as of this encounter Care Teams Site Superintendent Relationship Specialty Start Date End Date John Kimbrough MD [address] [facility] [address] [place] [address] PCP - General 11/08/16 07/02/23 Anayeli Lee MD [address] [place] [address] PCP - General Family Medicine 07/03/23 08/24/24 Preethi Godoy NP [address] [facility] [place] [address] [place], [place] [id number] PCP - General Family Medicine 08/25/24 Kath Shepherd MD [address] [place] [address] Consulting Physician Gastroenterology 07/22/19 Peter Ya MD [address] [place] [address] Professional Soccer Player Cardiology 07/22/19 Vitaly Ledesma MD [address] [place] [address] Consulting Physician Neurology 07/22/19 Joshua Butterfield MD [address] [facility] [address] [place] [address] Consulting Physician Urology 07/03/23 Jeffery Bustillos MD [address] [facility] [address] [place] [address] Consulting Physician Cardiovascular Disease 02/06/24 Shimon Schofield MD [address] [facility] [address] [place] [address] Consulting Physician Vascular Surgery 02/06/24 documented as of this encounter
--- OUTSIDE RECORDS SUMMARY | 2024-11-26 16:53 | XMS_ITS | Encounter Summary ---
Author Organization [facility] Healthcare Address [address] [place] [address] Care Team Providers Care Hacksaw Inspector Name Role Phone Kath Shepherd MD Unavailable [phone] Peter Ya MD Unavailable [phone] Vitaly Ledesma MD Unavailable [phone] Joshua Butterfield MD Unavailable [phone] Jeffery Bustillos MD Unavailable [phone] Shimon Schofield MD Unavailable Preethi Godoy NP Primary Care Provider [phone] Encounter Details Date Type Department Care Team (Late st Contact Info) Description 11/14/2024 Results Follow-Up [facility] Medical Group Convenient Care at [address] [address] Mandy Hernandez KRISTIAN [address] [place] [address] [address] [place] [address] Social History Tobacco Use Types [...] points, staff should administer the PHQ-9) 0 08/25/2024 Personal Safety Answer Date Recorded Have you ever been in or are you currently in a harmful physical or emotional relationship or is someone making you feel afraid or unsafe? 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 [employer]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 documented as of this encounter Plan of Treatment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 documented as of this encounter Visit Diagnoses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documented in this encounter Additional Health Concerns Infection Onset Date Last Indicated Resolved Time COVID: Suspected 11/14/2024 11/14/2024 11/14/2024 10:49 AM FREIGHT HANDLER COVID: Suspected 11/14/2024 11/14/2024 11/14/2024 3:33 PM FREIGHT HANDLER RSV, droplet 11/14/2024 11/14/2024 11/21/2024 3:07 AM FREIGHT HANDLER documented as of this encounter Care Teams Hacksaw Inspector Relationship Specialty Start Date End Date Preethi Godoy NP [address] [facility] [address] [place] [address] PCP - General Family Medicine 08/25/24 Kath Shepherd MD [address] [place] [address] Consulting Physician Gastroenterology 07/22/19 Peter Ya MD [address] [place] [address] Orange Picker Cardiology 07/22/19 Vitaly Ledesma MD [address] [place] [address] Consulting Physician Neurology 07/22/19 Joshua Butterfield MD [address] [place] [address] [address] [place] [address] Consulting Physician Urology 07/03/23 Jeffery Bustillos MD [address] [place] [address] Consulting Physician Cardiovascular Disease 02/06/24 Shimon Schofield MD [address] [address] Consulting Physician Vascular Surgery 02/06/24 documented as of this encounter
--- OUTSIDE RECORDS SUMMARY | 2024-11-26 16:53 | XMS_ITS | Referral Summary ---
Author Organization [facility] Address [address] [place] [address] Care Team Providers Care Fisher Trawl Line Name Role Phone Kath Shepherd MD Unavailable Peter Ya MD Unavailable Aziza Ledesma MD Unavailable [phone] Joshua Butterfield MD Unavailable [phone] Jeffery Bustillos MD Unavailable [phone] Shimon Schofield MD Unavailable Preethi Godoy NP Primary Care Provider Encounters Date Type Department Care Team Description 11/26/2024 Telephone [facility] Primary Care at [address] [address] Preethi Godoy NP Medical Question/Miscellaneous 11/26/2024 Orders Only [facility] Primary Care at [address] [phone] Preethi Godoy NP 11/26/2024 Telephone [facility] Primary Care at [address] [phone] Preethi Godoy NP Symptom Based Call 11/24/2024 Results Follow-Up [facility] Primary Care at [address] [phone] Preethi Godoy NP 11/23/2024 1:22 PM MINE DEPUTY - 11/23/2024 11:59 PM MINE DEPUTY Hospital Encounter [address] [address] Benign hypertension with stage 3a chronic kidney disease (HCC); Iron deficiency anemia due to chronic blood loss Discharge Disposition: Discharge to home or self care 11/23/2024 1:30 PM MINE DEPUTY Lab [facility] Outpatient Lab at [address] [phone] Pneumonia due to infectious organism, unspecified laterality, unspecified part of lung (Primary Dx) 11/23/2024 1:30 PM MINE DEPUTY Ancillary Procedure [facility] Imaging at [address] [phone] Pneumonia due to infectious organism, unspecified laterality, unspecified part of lung 11/23/2024 12:30 PM MINE DEPUTY Office Visit [facility] Primary Care at [address] [phone] Preethi Godoy NP Pneumonia due to infectious organism, unspecified laterality, unspecified part of lung (Primary Dx); Iron deficiency anemia due to chronic blood loss; Benign hypertension with stage 3a chronic kidney disease (HCC); Persistent atrial fibrillation (HCC) 11/16/2024 Orders Only [facility] Convenient Care at [address] [phone] Gladys Valdovinos NP Lower respiratory infection (e.g., bronchitis, pneumonia, pneumonitis, pulmonitis) (Primary Dx) 11/16/2024 2:00 PM MINE DEPUTY Ancillary Procedure [facility] Imaging at [address] [address] Acute cough 11/14/2024 Results Follow-Up [facility] Convenient Care at [address] [phone] Mandy Hernandez PA 11/14/2024 11:00 AM MINE DEPUTY - 11/14/2024 11:59 PM MINE DEPUTY Hospital Encounter [address] [address] Acute cough Discharge Disposition: Discharge to home or self care 11/14/2024 10:00 AM MINE DEPUTY Office Visit [facility] Convenient Care at [address] [phone] Mandy Hernandez PA Acute cough (Primary Dx) 11/10/2024 Orders Only [facility] Primary Care at [address] [phone] Preethi Godoy NP 11/03/2024 Orders Only [facility] Gastroenterology [facility] Medicine 12th [place] [address] [place] [phone] Kath Shepherd MD 10/25/2024 Telephone [facility] Gastroenterology [address] [place] [address] Medicine 12th [place] [address] [place] [phone] Jeannine Newman, TEDDY Med Management ([facility]) 10/21/2024 10:58 AM MINE DEPUTY Anesthesia Event [facility] [address] [address] Danyell Maher MD 10/21/2024 10:30 AM MINE DEPUTY - 10/21/2024 11:15 AM MINE DEPUTY Surgery [facility] [address] [address] Kath Shepherd MD COLON BIOPSY 10/21/2024 9:15 AM MINE DEPUTY - 10/21/2024 12:33 PM MINE DEPUTY Hospital Encounter [facility] [address] [address] Kath Shepherd MD Crohn's disease of both small and large intestine with other complication (HCC) Discharge Disposition: Discharge to home or self care 10/20/2024 Telephone [facility] Primary Care at [address] [phone] Preethi Godoy NP Medical Question/Miscellaneous 10/14/2024 Telephone [facility] Specialty Services [address] [place] [phone] Stacey Crane RN 10/14/2024 Telephone [facility] Specialty Services [address] [place] [address] Stacey Crane RN 10/14/2024 Telephone [facility] Specialty Services [address] [place] [address] Stacey Crane, RN GI PROCEDURE 7 DAY PRE CALL 09/08/2024 Telephone [facility] Gastroenterology [facility] 12th [place] [address] [place] [address] Winifred Rodriges RMA GI pre-procedural assessment 09/08/2024 1:00 PM MINE DEPUTY Office Visit [facility] Cardiology [address] [facility] [address] [place] [address] Madai Enrique NP 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, unspecified whether angina present (Primary Dx); Fatigue, unspecified type; Hypotension, unspecified hypotension type; Persistent atrial fibrillation (HCC); Nonrheumatic mitral valve regurgitation 09/01/2024 Orders Only [facility] Vascular at [address] [place] [address] Shimon Schofield MD 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 (Primary Dx) 09/01/2024 Telephone [facility] Primary Care at [address] [phone] Preethi Godoy NP Test Results (Urin culture); Call Back 09/01/2024 9:00 AM MINE DEPUTY Office Visit [facility] Vascular at [address] [place] [address] Shimon Schofield MD Peripheral artery disease (Primary Dx); Hypercholesterolemia; 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 without angina pectoris 08/30/2024 Telephone [facility] [address] [place] [address] Robyn Blanco RN 08/30/2024 Telephone [facility] Primary Care at [address] [phone] Preethi Godoy NP Medical Question/Miscellaneous 08/30/2024 Orders Only [facility] Primary Care at [address] [phone] Preethi Godoy NP 08/30/2024 2:33 PM MINE DEPUTY - 08/30/2024 11:59 PM MINE DEPUTY Hospital Encounter [facility] Imaging [address] [address] Mer Lynn, TEDDY BPH with obstruction/lower urinary tract symptoms Discharge Disposition: Discharge to home or self care from Last 3 Months Allergies No known active allergies Medications coenzyme Q10 10 mg capsule Take 2 capsules (20 mg total) by mouth every morning Active icqcw-1-dqn-ep a-dpa-fish oil 1,050-1,200 mg capsule Take 1 [...] Route Frequency Start Date End Date Status [facility] BMS-471604/placebo (/[id number]) capsule 4 capsuleIndications:Crohn' s disease of both small and large intestine with other complication (HCC) 4 capsule oral 2 times daily 05/21/2022 Active [facility] BMS-162676/placebo (/[id number]) capsule 4 capsuleIndications:Crohn' s disease of both small and large intestine with other complication (HCC) 4 capsule oral 2 times daily 06/18/2022 Active [facility] BMS-766065/placebo (/[id number]) capsule 4 capsuleIndications:Crohn' s disease of both small and large intestine with other complication (HCC) 4 capsule oral 2 times daily 07/09/2022 Active [facility] BMS-598324/placebo (/[id number]) capsule 4 capsuleIndications:Crohn' s disease of both small and large intestine with other complication (HCC) 4 capsule oral 2 times daily 08/07/2022 Active [facility] BMS-905839/placebo (/[id number]) capsule 4 capsuleIndications:Crohn' s disease of both small and large intestine with other complication (HCC) 4 capsule oral 2 times daily 09/19/2022 Active [facility] BMS-198493/placebo (/[id number]) capsule 4 capsuleIndications:Crohn' s disease of both [...] modification Assessment & Plan (10/03/2023 1:12 PM MINE DEPUTY): Chronic. Due to prior peripheral arterial disease. [...] urologist Assessment & Plan (10/03/2023 1:12 PM MINE DEPUTY): Chronic. Continue medication care per Urology Assessment & Plan (07/03/2023 5:22 PM CDT): Follows with [facility] [place] Dr. Butterfield. Patient on finasteride and does intermittent straight catheterization Protein-calorie malnutrition, mild 07/03/2023 Overview (07/03/2023): Patient with low BMI. Less protein level was low. Monitor weight Assessment & Plan (02/06/2024 4:55 PM CDT): Patient has had borderline protein calorie malnutrition. Monitor his protein levels on labs. Encourage adequate nutrition. Avoid additional weight loss Assessment & Plan (10/03/2023 1:12 PM MINE DEPUTY): Chronic. BMI remains at the lower end arrange. Encouraged adequate nutrition. Monitor History of gout 07/03/2023 Assessment & Plan (02/06/2024 4:55 PM CDT): Chronic. Denies history of recent flares. Continue allopurinol for prophylaxis. Check uric acid Assessment & Plan (10/03/2023 1:12 PM MINE DEPUTY): Chronic. Denies any history of gout in [...] 03/14/2023 Assessment & Plan (10/03/2023 1:13 PM MINE DEPUTY): Chronic. May occasionally increase in size. Minimal pain. Has deferred elective repair in the past Persistent atrial fibrillation 12/04/2021 Assessment & Plan (11/23/2024 1:36 PM MINE DEPUTY): Rate controlled in office, continuing follow up with Cardiology. Assessment & Plan (03/01/2024 7:51 AM CDT): Stable continue metoprolol. Assessment & Plan (02/06/2024 4:55 PM CDT): Chronic. Controlled rate with metoprolol. Continue. Continue aspirin for stroke prophylaxis Assessment & Plan (10/03/2023 1:12 PM MINE DEPUTY): Chronic. Continue risk factor modification. Continue ASA [...] Monitor Assessment & Plan (10/03/2023 1:11 PM MINE DEPUTY): Chronic. Denies significant worsening. No agitation recently. [...] They denies significant agitation Cerebral amyloid angiopathy ([facility]) 02/15/2020 Assessment & Plan (02/06/2024 4:54 PM CDT): Chronic. Memory has worsened slightly in the last year. He does have some fluctuations at times. No real agitation. Target good blood pressure control. Continue aspirin for his other issues. Would be cautious with more aggressive anticoagulation given history of amyloid angiopathy Assessment & Plan (10/03/2023 1:11 PM MINE DEPUTY): Chronic. Denies any progression of symptoms Assessment & Plan (07/03/2023 5:18 PM CDT): Chronic. Control blood pressure and modify risk factors as able. Continue aspirin given AFib but would be cautious with stronger anticoagulants given increased bleeding risk with cerebral amyloid angiopathy Peripheral artery disease 09/10/2019 Overview (09/10/2019): Added automatically from request for surgery [id number] Assessment & Plan (09/03/2024 10:57 AM MINE DEPUTY): Stable lower extremity occlusive disease. Continue risk [...] duplex. Assessment & Plan (10/03/2023 1:11 PM MINE DEPUTY): Chronic. Denies recent claudication symptoms. Continue ASA, statin and Pletal Assessment & Plan (07/03/2023 5:22 PM CDT): Chronic. 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 Denies current sores on his feet. Follows with Podiatry in [place]. On cilostazol Iron deficiency anemia due to [...] 02/17/2019 Assessment & Plan (11/23/2024 1:35 PM MINE DEPUTY): BP normal in office, continuing current regimen. [...] dehydrate Assessment & Plan (10/03/2023 1:10 PM MINE DEPUTY): Chronic. Blood pressure controlled. Continue current prescription [...] (01/26/2019): Added automatically from request for surgery [id number] Assessment & Plan (02/06/2024 4:52 PM CDT): Chronic. Disease has been stable. Minimal symptoms. He does have to be cautious with eating too many fruits and vegetables as he notes this does cause some GI distress. He remains controlled with Skyrezi and hydroxychloroquine. He will continue Assessment & Plan (10/03/2023 1:10 PM MINE DEPUTY): Chronic. Symptomatically improved per patient. Continue medication and care per GI Assessment & Plan (07/03/2023 5:20 PM CDT): Chronic. Follows with Gastroenterology. On scar oz and sulfasalazine. Continue medication and care per them CAD (coronary artery disease) 12/04/2018 Assessment & Plan (09/03/2024 10:57 AM MINE DEPUTY): Stable continue ASA and Lasix Assessment & Plan (02/06/2024 4:51 PM CDT): Chronic. Denies chest pain. Continue risk factor modification with statin, aspirin, blood pressure control. Target LDL less than 70 Assessment & Plan (10/03/2023 1:10 PM MINE DEPUTY): Chronic. Denies chest pain. Follows with cardiology. [...] 12/30/2017 Assessment & Plan (08/25/2024 4:06 PM MINE DEPUTY): Updated labs ordered, Hemoglobin was 9 in [...] infusions Assessment & Plan (10/03/2023 1:10 PM MINE DEPUTY): Chronic. Follows with GI and Hematology. Has received iron infusions. Often does B12 injections Assessment & Plan (07/03/2023 5:15 PM CDT): Chronic. Follows with GI and Hematology. Received iron infusions Hypercholesterolemia 02/05/2011 Assessment & Plan (09/03/2024 10:57 AM MINE DEPUTY): Stable continue statin therapy. Assessment & Plan (03/01/2024 7:50 AM CDT): Stable continue statin therapy. Assessment & Plan (02/06/2024 4:53 PM CDT): Chronic. Tolerates atorvastatin. Continue. Check cholesterol level and adjust for an LDL goal of at least less than 70 with optimal less than 55 Assessment & Plan (10/03/2023 1:10 PM MINE DEPUTY): Chronic. Tolerates current prescription medication. Continue Assessment [...] (05/29/2021): Added automatically from request for surgery [id number] Crohn's disease with rectal bleeding 12/10/2018 07/03/2023 Overview (12/10/2018): Added automatically from request for surgery [id number] Peripheral vascular disease 02/13/2017 07/03/2023 Gastrointestinal hemorrhage 07/03/2023 Acute renal failure 07/03/20 23 Crohn's disease of colon with rectal bleeding 07/03/2023 Assessment & Plan (12/04/2021 1:34 PM CDT): Has upcoming endoscopy. 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 [employer]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 Last Filed Vital Signs Vital Sign Reading Time Taken Comments Blood Pressure 120/60 11/23/2024 12:30 PM MINE DEPUTY Pulse 80 11/23/2024 12:30 PM MINE DEPUTY Temperature 36.4 C (97.5 F) 11/23/2024 12:30 PM MINE DEPUTY Respiratory Rate 20 11/14/2024 10:16 AM MINE DEPUTY Oxygen Saturation 99% 11/14/2024 10:16 AM MINE DEPUTY Inhaled Oxygen Concentration - - Weight 64 kg (141 lb) 11/23/2024 12:30 PM MINE DEPUTY Height 177.8 cm (5' 10 ) 11/23/2024 12:30 PM MINE DEPUTY Body Mass Index 20.23 11/23/2024 12:30 PM MINE DEPUTY Plan of Treatment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 Medical Devices Implanted Type Area Application Security Engineer Device Identifier Shelf Expiration Date Model / Serial / Lot [employer]ush Araceli [id number] Synergy 3.5mm 24mm 144cm Radiopaque 1 Access Port Inflation Lumen - [id number] - [id number] Implanted:Qty: 1 on 03/26/2019 by Alban Santana MD at [facility] Stent [employer]ible [employer] Ar[employer]eli 12/09/2020 [id number] / [id number] / [id number] Procedures Procedure Name Priority Date/Time Associated Diagnosis Comments XR CHEST PA LATERAL 2 VIEWS Schedule Routine, Read Routine (OP Routine) 11/23/2024 1:30 PM MINE DEPUTY Pneumonia due to infectious organism, unspecified laterality, unspecified part of lung EGFR Routine 11/23/2024 1:22 PM MINE DEPUTY Benign hypertension with stage 3a chronic kidney disease (HCC) DIFFERENTIAL AUTO Routine 11/23/2024 1:2 2 PM MINE DEPUTY Iron deficiency anemia due to chronic blood loss Benign hypertension with stage 3a chronic kidney disease (HCC) CBC WITH AUTO DIFFERENTIAL Routine 11/23/2024 1:22 PM MINE DEPUTY Iron deficiency anemia due to chronic blood loss Benign hypertension with stage 3a chronic kidney disease (HCC) IRON Routine 11/23/2024 1:22 PM MINE DEPUTY Iron deficiency anemia due to chronic blood loss BASIC METABOLIC PANEL Routine 11/23/2024 1:22 PM MINE DEPUTY Benign hypertension with stage 3a chronic kidney disease (HCC) XR CHEST PA LATERAL 2 VIEWS Schedule YULIANA, Read YULIANA (Appt Today, Awaiting Results) 11/16/2024 2:07 PM MINE DEPUTY Acute cough INFLUENZA A/B, RSV, AND COVID-19 PCR Routine 11/14/2024 11:00 AM MINE DEPUTY Acute cough POC INFLUENZA A/B, COVID-19 ANTIGEN Routine 11/14/2024 10:47 AM MINE DEPUTY Acute cough SURGICAL PATHOLOGY Routine 10/21/2024 11 :18 AM MINE DEPUTY Crohn's disease of both small and large intestine with other complication (HCC) COLON BIOPSY 10/21/2024 10:58 AM MINE DEPUTY Crohn's disease of both small and large intestine with other complication (HCC) COLONOSCOPY 10/21/2024 10:56 AM MINE DEPUTY HC EST VISIT LEVEL 4 Schedule Routine, Read Routine (OP Routine) 08/30/2024 3:44 PM MINE DEPUTY BPH with obstruction/lower urinary tract symptoms CTA [...] PA Lateral 2 Views (11/23/2024 1:30 PM MINE DEPUTY) Anatomical Region Laterality Modality Body, Chest N/A Digital Radiogra phy 11/26/2024 2:09 PM MINE DEPUTY Narrative 11/26/2024 2:11 PM MINE DEPUTY EXAM DESCRIPTION: XR CHEST PA LATERAL 2 [...] bilateral pleural effusion with adjacent airspace opacities, dzuon-wassqfg-ltii-left. Right mid chest linear density , linear [...] signed by Buck DOUGLAS T: Report ID: [id number] Reading Location: [id number] Procedure Note Buck Oleary, DO - 11/26/2024 [...] Small bilateral pleural effusionwith adjacent airspace opacities, ontlm-smlylzx-uwyb-left. Right mid chestlinear density , linear atelectasis [...] signed by Buck DOUGLAS T: Report ID: [id number] Reading Location: [place] [address] Preethi Godoy NP IMG XR PROCEDURES Final Result * (ABNORMAL) eGFR (11/23/2024 1:22 PM MINE DEPUTY) eGFR 34(L) >=60 mL/min/1. 73 m2 Comment: [...] last reviewed 2021. Blood 11/23/2024 1:22 PM MINE DEPUTY 11/24/2024 11:14 AM MINE DEPUTY us Preethi Cox CERTIFIED SHORTHAND REPORTER LAB BLOOD ORDERABLES Final Resul t [facility] [address] Department [place] [address] * (ABNORMAL) Differential, auto (11/23/2024 1:22 PM MINE DEPUTY) Neutrophil abs 6.3 1.5 - 6.5 K/cumm Imm gran abs 0.0 0.0 - 0.1 K/cumm [facility] Lymphocyte abs 0.7(L) 0.8 - 3.3 K/cumm [facility] Monocyte abs 1.0(H) 0.2 - 0.8 K/cumm [facility] Eosinophil abs 0.2 0.0 - 0.5 K/cumm [facility] Basophil abs 0.1 0.0 - 0.1 K/cumm [facility] Neutrophil pct 75.6 % [facility] Comment: Interpretive Data Percent cell count reference ranges are not reported, since discordance with absolute values may lead to misinterpretation of CBC data. Current Interpretive Data was last revised on 2017. Imm gran pct 0.5 % [facility] Comment: Interpretive Data Percent cell count reference ranges are not reported, since discordance with absolute values may lead to misinterpretation of CBC data. Current Interpretive Data was last revised on 2017. Lymphocyte pct 8.8 % [facility] Comment: Interpretive Data Percent cell count reference ranges are not reported, since discordance with absolute values may lead to misinterpretation of CBC data. Current Interpretive Data was last revised on 2017. Monocyte pct 11.6 % [facility] Comment: Interpretive Data Percent cell count reference ranges are not reported, since discordance with absolute values may lead to misinterpretation of CBC data. Current Interpretive Data was last revised on 2017. Eosinophil pct 2.9 % [facility] Comment: Interpretive Data Percent cell count reference ranges are not reported, since discordance with absolute values may lead to misinterpretation of CBC data. Current Interpretive Data was last revised on 2017. Basophil pct 0.6 % [facility] Comment: Interpretive Data Percent cell count reference ranges are not reported, since discordance with absolute values may lead to misinterpretation of CBC data. Current Interpretive Data was last revised on 2017. Blood 11/23/2024 1:22 PM MINE DEPUTY 11/24/2024 11:08 AM MINE DEPUTY us Preethi Godoy CERTIFIED SHORTHAND REPORTER LAB BLOOD ORDERABLES Final Resul t Performing Organization Address City/[facility] [[email or web address]] Co de Phone Number [facility] [id number] [address] Department [place] [address] * (ABNORMAL) CBC with auto differential (11/23/2024 1:22 PM MINE DEPUTY) WBC 8.4 3.8 - 9.9 K/cumm Hgb 9.7(L) 13.0 - 17.5 g/dL [facility] Hct 31.3(L) 38.9 - 50.3 % [facility] Plt 179 150 - 400 K/cumm [facility] MPV 10.2 9.1 - 12.3 fL [facility] RBC 3.12(L) 4.30 - 5.80 M/cumm [facility] MCV 100.3(H) 81.3 - 96.4 fL [facility] MCH 31.1 27.1 - 33.3 pg [facility] MCHC 31.0(L) 32.3 - 35.7 g/dL [facility] RDW CV 17.2(H) 11.1 - 14.9 % [facility] RDW SD 64.2(H) 35.7 - 48.1 fL [facility] NRBC abs 0.00 0.00 - 0.01 K/cumm [facility] Blood 11/23/2024 1:22 PM MINE DEPUTY 11/24/2024 11:08 AM MINE DEPUTY us Preethi Godoy CERTIFIED SHORTHAND REPORTER LAB BLOOD ORDERABLES Final Resul t [facility] [address] [address] Department [place] [address] * (ABNORMAL) Iron level (11/23/2024 1:22 PM MINE DEPUTY) Pathologist [facility] Iron 47(L) 50 - 150 mcg/dl Blood 11/23/2024 1:22 PM MINE DEPUTY 11/24/2024 11:08 AM MINE DEPUTY us Preethi Godoy NP LAB BLOOD ORDERABLES Final Resul t Performing Organization Address [facility] de Phone Number [facility] [phone] [place] [address] * (ABNORMAL) Basic metabolic panel (11/23/2024 1:22 PM MINE DEPUTY) [facility] Sodium 141 135 - 145 mmol/L Potassium, pl 3.6 3.3 - 4.9 mmol/L [facility] Chloride 109 97 - 110 mmol/L [facility] CO2 21(L) 22 - 32 mmol/L [facility] Anion gap 11 2 - 15 mmol/L [facility] BUN 18 6 - 25 mg/dL [facility] Creatinine 1.97(H) 0.80 - 1.30 mg/dL [facility] Glucose 75 70 - 199 mg/dL [facility] Comment: Interpretive Data Fasting glucose >/= 126 [...] 2022. Calcium 8.1(L) 8.5 - 10.3 mg/dL [facility] Blood 11/23/2024 1:22 PM MINE DEPUTY 11/24/2024 11:08 AM MINE DEPUTY us Preethi Godoy NP LAB BLOOD ORDERABLES Final Resul t [facility] [address] [address] Department [place] [address] * XR Chest Pa Lateral 2 Views (11/16/2024 2:07 PM MINE DEPUTY) Anatomical Region Laterality Modality Body, Chest N/A Digital Radiogra phy 11/16/2024 3:45 PM MINE DEPUTY Narrative 11/16/2024 3:51 PM MINE DEPUTY EXAM DESCRIPTION: XR CHEST PA LATERAL 2 [...] Jeffery Dawkins M.D. MJ T: Report ID: [id number] Reading Location: [place] [address] Procedure Note Jeffery Dawkins MD - 11/16/2024 [...] Jeffery Dawkins M.D. MJ T: Report ID: [id number] Reading Location: [place] [address] Mandy TOWNSEND IMG XR PROCEDURES Final Result * (ABNORMAL) Influenza A/B, RSV, and COVID-19 PCR Nasopharyngeal (11/14/2024 11:00 AM MINE DEPUTY) COVID-19 RNA Negative Negative [place] Influenza A RNA Negative Negative CERNER Influenza B RNA Negative Negative CERNER RSV RNA Positive(A) Negative [facility] Comment: Interpretive data: Testing performed by [facility]. This test is performed using the [employer] Xpert Xpress CoV-2/Flu/RSV plus assay. This is a multiplex, real-time reverse transcriptase PCR assay intended for the qualitative detection of nucleic acid from SARS-CoV-2, influenza A, influenza B, and respiratory syncytial virus. This assay has been cleared by the [place] Food and Drug administration. The performance characteristics have been verified by the [facility]. Results must be considered in the clinical context, and a negative result does not rule out infection. Interpretive Data last revised 2023 Nasopharyngeal 11/14/2024 11 :00 AM MINE DEPUTY 11/14/2024 2:41 PM MINE DEPUTY Narrative TRAVIS - 11/14/2024 3:32 PM MINE DEPUTY Is the Patient experiencing symptoms consistent with COVID?->Yes Mandy TOWNSEND LAB MICROBIOLOGY - GENER AL ORDERABLES Final Result Performing Organization Address City/[facility] [email or web address]] Co de Phone Number TRAVIS [phone] Department [place] [address] * POC Influenza A/B, COVID-19 antigen (11/14/2024 10:47 AM MINE DEPUTY) Influenza A Ag, POC Negative Negative [facility] Influenza B Ag, POC Negative Negative [facility] COVID-19 Ag POC Presumptive Negative Presumptive Negative, Invalid [facility] Nasal 11/14/2024 10:4 7 AM MINE DEPUTY Mandy TOWNSEND POINT OF CARE TEST ORDER MANJINDER Final Result Performing Organization Address City/[facility]/ZIP Co de Phone Number [facility] [address] [place] [address] * Surgical pathology (10/21/2024 11:18 AM MINE DEPUTY) Tissue (Ileum, Biopsy) 10/21/2024 11:18 AM MINE DEPUTY Tissue (Colon, Biopsy) 10/21/2024 11:31 AM MINE DEPUTY Narrative PATHOLOGY [facility] - 10/22/2024 11:22 AM MINE DEPUTY EPIC results best viewed via link to PDF [facility] Ambreen Bello Laboratory [place] [address] Note to Patients: This report may contain [...] Gender: M : 1945 (Age: 79) Address: [address] [place], [place] [id number] Hospital #: [id number] Taken:10/21/2024 Received:10/21/2024 Reported: 10/22/2024 Patient Type: [facility] Service: Gastro Location: Physician(s): Edmund Waterman F.N.PHansa Diagnosis: A. Small intestine, terminal ileum, endoscopic biopsy - No histopathologic abnormality - No evidence of acute or chronic ileitis, ulcers, or granulomas - No dysplasia or malignancy B. Large intestine, random colon, endoscopic biopsy - No histopathologic abnormality - No evidence of active colitis, chronic colitis, ulcers, or granulomas - No dysplasia or malignancy r/10/22/2024 11:22 By this signature, I attest that [...] Surgical Pathology and Flow Cytometry Departments at [facility] as part of an ongoing software quality engineer program and in compliance [...] Surgical Pathology and Flow Cytometry Departments of [facility]. It has not been cleared or approved by the U. S. Food and Drug Administration. IMAGES AND SCANNED DOCUMENTS, IF INCLUDED, ONLY VIEWABLE IN PDF VERSION OF REPORT Kath Shepherd MD LAB PATHOLOGY ORDERABLES Laly mckenzie Result PATHOLOGY [facility] 3rd Floor [place], [place] [phone] * Colonoscopy (10/21/2024 10:56 AM MINE DEPUTY) Anatomical Region Laterality Modality Other Narrative Procedure Note Kath Shepherd MD - 10/21/2024 10:56 AM CST [facility] ENDOS[facility] Patient Name: Aziza Loya Procedure Date: 10/21/2024 10:56 AM Date of : 1945 Admit Type: Outpatient Age: 79 Gender: Male Attending MD: Kath Shepherd M.D. Room: [facility] 3 Note Status: Finalized Procedure: Colonoscopy Indications: Disease activity assessment of Crohn's disease ofthe small bowel and colon Referring MD: Christopher EmmanuelNNicole. Providers: Kath Shepherd M.D., Isabell Bella M.D. [...] The scope was passed under direct vision.The [facility] [id number] endoscope was introducedthrough the anus and [...] to Interventional Radiology (Community) (08/30/2024 3:44 PM MINE DEPUTY) Anatomical Region Laterality Modality N/A X-Ray Angiograph y 08/30/2024 3:47 PM MINE DEPUTY Impressions 08/30/2024 3:47 PM MINE DEPUTY Patient has history of prior prostate surgery, and he is not a good candidate for PAE. Complete details regarding this office visit can be found in [facility] under the Notes tab. Electronically signed by: Phan Hudson M.D. Narrative 08/30/2024 3:47 PM MINE DEPUTY EXAMINATION: [facility] VISIT HISTORY: 79-year-old male patient with lower urinary tract symptoms, ears for evaluation for prostatic artery embolization. Procedure Note Phan Hudson MD - 08/30/2024 EXAMINATION: [facility] VISIT HISTORY: 79-year-old male patient with lower urinary tract symptoms, ears for evaluation for prostatic artery embolization. IMPRESSION: Patient has history of prior prostate surgery, and he is not a good candidate for PAE. Complete details regarding this office visit can be found in [facility] under the Notes tab. Electronically signed by: Phan Hudson M.D. us Phan Hudson MD IMG IR PROCEDURES Final [...] signed by Steven RAJPUT T: Report ID: [id number] Reading Location: [id number] Procedure Note Steven Ruano MD - 02/24/2024 [...] Steven Ruano M.D. RB T: Report ID: [id number] Reading Location: [id number] us Annie TOWNSEND IMG CT PROCEDURES Final Res [...] 3 AM CDT 02/06/2024 2:01 PM CDT us Anayeli Lee MD LAB MICROBIOLOGY - GEN ERAL [place] [id number] [address] Department [place] [address] from Last 3 Months or Most Recently Relevant to Health Maintenance [facility] MEDICARE [facility] MEDICARE AAR Member Subscriber Plan / Payer ( fective 2017-) Name:Aizza Loya Relation to Subscriber:Self Name:Aziza Loya Payer ID:[id number] Group ID:[id number] Type:COMMERCIAL Address: [place] [id number] MEDICARE [facility] MEDICARE AARP Advance Directives For more information, please contact: [phone] * Full Code (Latest Code Status on [...] 10:45 AM 05/17/2022 5:55 PM Care Teams Fisher Trawl Line Relationship Specialty Start Date End Date Preethi Godoy NP [address] [facility] [address] [place] [address] PCP - General Family Medicine 08/25/24 Kath Shepherd MD [address] [place], [place] [id number] Consulting Physician Gastroenterology 07/22/19 Peter Ya MD [address] [place] [address] Compo Caster Cardiology 07/22/19 Aziza Ledesma MD [address] [place] [address] Consulting Physician Neurology 07/22/19 Joshua Butterfield MD [address] [place] [address] [address] [place] [address] Consulting Physician Urology 07/03/23 Jeffery Bustillos MD [address] [place] [address] Consulting Physician Cardiovascular Disease 02/06/24 Shimon Schofield MD [facility] [address] [address] Consulting Physician Vascular Surgery 02/06/24
== END 2024-11-26 16:51 | disposition home or self-care (01) ==
LOC: ANHIMG 16:51
PROVIDERS: PCP Nurse Practitioner Family; Visit Provider Nurse Practitioner Family
DX: R93.89 Abnormal findings on diagnostic imaging of other specified body structures (principal); J18.9 Pneumonia, unspecified organism; R05.9 Cough, unspecified; R50.9 Fever, unspecified; I51.7 Cardiomegaly
CPT/HCPCS: 71250

== ENCOUNTER 2024-11-28 06:10 | Inpatient (IN) | payer MEDICARE, SELFPAY ==
[2024-11-28] VITALS (26 sets, daily range): BP systolic 121–140; BP diastolic 67–84; PULSE 74–125; RESP 13–25; TEMP 36.5–36.8; O2SAT 95–100
--- NOTE | ~2024-11-28 | CT_ITS ---
CT head without contrast Indication: Confusion COMPARISON: 07/02/2024 Technique: Serial scans were obtained through the brain without the administration of contrast. Dose reduction technique was used on this scan by utilizing automated exposure control and iterative recon struction technique. The dose-length product (DLP) was 354.92 mGy-cm. Findings: There is no evidence of intracranial hemorrhage, mass lesion, or acute infarct. The ventri cles and subarachnoid spaces are dilated, consistent with moderate atrophy. Low attenuation regions are seen within the periventricular white matter bilaterally, likely representing changes from chroni c microvascular ischemic disease. There is no evidence of edema, mass effect or midline shift. The visualized paranasal sinuses and mastoid air cells are clear. Impression: No intracranial hemorrhage, mass, or acute infarct. Atrophy and chronic white matter changes, as above. Reviewed, dictated and finalized at location . Impression: No intracranial hemorrhage, mass, or acute infarct. Atrophy and chronic white matter changes, as above.
--- NOTE | ~2024-11-28 | XR_ITS ---
Clinical Indication: Cough PA and lateral views of the chest: Comparison: 07/07/2024 Findings: Small right pleural effusion present. There is mild haziness left midlung.. Cardiomediasti nal silhouette is within normal limits. Bones and soft tissues are unremarkable. Impression: Small right pleural effusion. Mild haziness left midlung, nonspecific. Correlate for pneumonia. Reviewed, dictated and finalized at location . Impression: Small right pleural effusion. Mild haziness left midlung, nonspecific. Correlate for pneumonia.
--- OUTSIDE RECORDS SUMMARY | 2024-11-28 06:13 | XMS_ITS | Encounter Summary ---
Author Organization [facility] Healthcare Address [address] [place] [address] Care Team Providers Care Thermit Welding Machine Operator Name Role Phone Kath Shepherd MD Unavailable [phone] Peter Ya MD Unavailable [phone] Vitaly Ledesma MD Unavailable [phone] Joshua Butterfield MD Unavailable [phone] Jeffery Bustillos MD Unavailable [phone] Shimon Schofield MD Unavailable Preethi Godoy NP Primary Care Provider [phone] Reason for Referral * MRI/CAT/PET Scan (Routine) - Authorized Specialty Diagnoses / Procedures Referred By Contac t Referred To Contact Diagnoses Abnormal CXR Pneumonia of both lungs due to infectious organism, unspecified part of lung Cough, unspecified type Fever, unspecified fever cause Procedures CT Chest WO Contrast Preethi Godoy NP [address] [place] [address] Phone: tel: fax: [facility] [address] [facility] [address] [place] [address] Phone: tel: fax: Referral ID Status Reason Start Date Expiration Date V isits Requested Visits Authorized [id number] Authorized 11/26/2024 12/26/2025 1 1 UNTING SUPERVISOR Reason for Visit * Reason Onset Date Comments Symptom Based Call 11/26/2024 Encounter Details Date Type Department Care Team (Late st Contact Info) Description 11/26/2024 Telephone [facility] Medical Group Primary Care at [address] [address] Preethi Godoy NP [address] [facility] [address] [place] [address] Symptom Based Call Social History [...] on file 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 2:24 AM ACCOUNTING 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 If symptoms worsen, ER. UNTING SUPERVISOR * Telephone Encounter - Charline Goodman MA [...] message need to be routed? Yes-Action Needed UNTING SUPERVISOR documented in this encounter Plan of Treatment [...] cause documented in this encounter Care Teams Thermit Welding Machine Operator Relationship Specialty Start Date End Date Preethi Godoy NP [address] [facility] [address] [place] [address] PCP - General Family Medicine 08/25/24 Kath Shepherd MD [address] [place] [address] Consulting Physician Gastroenterology 07/22/19 Peter Ya MD [address] [place] [address] Stave Block Roller Cardiology 07/22/19 Vitaly Ledesma MD [address] [place] [address] Consulting Physician Neurology 07/22/19 Joshua Butterfield MD [address] [facility] [address] [place] [address] Consulting Physician Urology 07/03/23 Jeffery Bustillos MD [address] [place] [address] [address] [place] [address] Consulting Physician Cardiovascular Disease 02/06/24 Shimon Schofield MD [address] [address] Consulting Physician Vascular Surgery 02/06/24 documented as of this encounter
--- OUTSIDE RECORDS SUMMARY | 2024-11-28 06:13 | XMS_ITS | Encounter Summary ---
Author Organization [facility] Healthcare Address [address] [place] [address] Care Team Providers Care Fabrication Inspector Name Role Phone Kath Shepherd MD Unavailable [phone] Peter Ya MD Unavailable [phone] Vitaly Ledesma MD Unavailable [phone] Joshua Butterfield MD Unavailable [phone] Jeffery Bustillos MD Unavailable [phone] Shimon Schofield MD Unavailable Preethi Godoy NP Primary Care Provider [phone] Encounter Details Date Type Department Care Team (Late st Contact Info) Description 11/24/2024 Results Follow-Up [facility] Medical Group Primary Care at [address] [address] Preethi Godoy NP [address] [place] [address] [address] [place] [address] Social History Tobacco Use Types [...] on file 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 2:24 AM RESPIRATORY ASSISTANT Gender Identity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 Sexual Orientation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 documented as of this encounter Plan of Treatment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 documented as of this encounter Visit Diagnoses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documented in this encounter Care Teams Fabrication Inspector Relationship Specialty Start Date End Date Preethi Godoy NP [address] [facility] [address] [place] [address] PCP - General Family Medicine 08/25/24 Kath Shepherd MD [address] [place] [address] Consulting Physician Gastroenterology 07/22/19 Peter Ya MD [address] [place] [address] Crm Architect Cardiology 07/22/19 Vitaly Ledesma MD [address] [place] [address] Consulting Physician Neurology 07/22/19 Joshua Butterfield MD [address] [place] [address] Consulting Physician Urology 07/03/23 Jeffery Bustillos MD [address] [facility] [address] [address] Consulting Physician Cardiovascular Disease 02/06/24 Shimon Schofield MD [address] [facility] [address] [place] [address] Consulting Physician Vascular Surgery 02/06/24 documented as of this encounter
--- OUTSIDE RECORDS SUMMARY | 2024-11-28 06:13 | XMS_ITS | Encounter Summary ---
Author Organization [facility] Healthcare Address [address] [place] [address] Care Team Providers Care Middle School Tutor Name Role Phone Kath Shepherd MD Unavailable [phone] Peter Ya MD Unavailable [phone] Vitaly Ledesma MD Unavailable [phone] Joshua Butterfield MD Unavailable [phone] Jeffery Bustillos MD Unavailable [phone] Shimon Schofield MD Unavailable Preethi Godoy NP Primary Care Provider [phone] Encounter Details Date Type Department Care Team (Late st Contact Info) Description 11/14/2024 Results Follow-Up [facility] Medical Group Convenient Care at [address] [address] Mandy Hernandez KRISTIAN [address] [place] [address] [address] [place] [address] Social History Tobacco Use Types [...] on file 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 2:24 AM DEAD MAIL 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 Gender Identity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 Sexual Orientation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 [employer]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 documented as of this encounter Plan of Treatment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 documented as of this encounter Visit Diagnoses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documented in this encounter Additional Health Concerns Infection Onset Date Last Indicated Resolved Time COVID: Suspected 11/14/2024 11/14/2024 11/14/2024 10:49 AM DEAD MAIL CHECKER COVID: Suspected 11/14/2024 11/14/2024 11/14/2024 3:33 PM DEAD MAIL CHECKER RSV, droplet 11/14/2024 11/14/2024 11/21/2024 3:07 AM DEAD MAIL CHECKER documented as of this encounter Care Teams Middle School Tutor Relationship Specialty Start Date End Date Preethi Godoy NP [address] [facility] [address] [place] [address] PCP - General Family Medicine 08/25/24 Kath Shepherd MD [address] [place] [address] Consulting Physician Gastroenterology 07/22/19 Peter aY MD [address] [place] [address] Stab Setter And Driller Cardiology 07/22/19 Vitaly Ledesma MD [address] [place] [address] Consulting Physician Neurology 07/22/19 Joshua Butterfield MD [address] [place] [address] 200 [place] [address] Consulting Physician Urology 07/03/23 Jeffery Bustillos MD [address] [place] [address] Consulting Physician Cardiovascular Disease 02/06/24 Shimon Schofield MD [address] [address] Consulting Physician Vascular Surgery 02/06/24 documented as of this encounter
--- OUTSIDE RECORDS SUMMARY | 2024-11-28 06:13 | XMS_ITS | Encounter Summary ---
Author Organization [facility] Healthcare Address [address] [place] [address] Care Team Providers Care Battalion Fire Chief Name Role Phone Kath Shepherd MD Unavailable [phone] Peter Ya MD Unavailable [phone] Vitaly Ledesma MD Unavailable [phone] Joshua Butterfield MD Unavailable [phone] Jeffery Bustillos MD Unavailable [phone] Shimon Schofield MD Unavailable Preethi Godoy NP Primary Care Provider Reason for Visit * Reason Onset Date Comments Medical Question/Miscellaneous 11/26/2024 Encounter Details Date Type Department Care Team (Late st Contact Info) Description 11/26/2024 Telephone [facility] Medical Group Primary Care at [address] [address] Preethi Godoy NP [address] [place] [address] [address] [place] [address] Medical Question/Miscellaneous Social History Tobacco [...] on file 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 2:24 AM VP PROJECT Gender Identity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 Sexual Orientation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 Will get formal report. Called and spoke with pt's . Sending in Moxifloxacin instead of Levaquin(do not need to renally dose), inhaler also sent. Strict ER precautions given. PROJECT PROJECT PROJECT * Telephone Encounter - Haleigh Cook - 11/26/2024 4:27 PM CST Medical Question/Miscellaneous Caller???s Concern: Megan with [facility] Radiology asking for the Patient's STAT referral for CT Chest WO Contrast And a phone number for After hours reporting. BOB wade transferred Megan to the backline. Does message need to be routed? No PROJECT * Telephone Encounter - Kassie Crooks - 11/26/2024 3:56 PM CST Medical Question/Miscellaneous Caller???s Concern: They are asking for the orders for the Ct WO contrast and are asking them to besent YULIANA. casting machine operator automatic tried back line no answer 2x. Please fax to [phone] Does message need to be routed? Yes-Action Needed PROJECT documented in this encounter Plan of Treatment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 documented as of this encounter Visit Diagnoses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documented in this encounter Discontinued Medications Medication Sig Discontinue Reason Start Date End Da te azithromycin (ZITHROMAX) 250 mg tabletIndications:Lower respiratory infection (e.g., bronchitis, pneumonia, pneumonitis, pulmonitis) Take 2 tablets the first day, then 1 tablet daily for 4 days. Therapy completed 11/16/2024 11/26/2024 documented as of this encounter Care Teams Battalion Fire Chief Relationship Specialty Start Date End Date Preethi Godoy NP [address] [facility] [address] [place], [place] [id number] PCP - General Family Medicine 08/25/24 Kath Shepherd MD [address] [place] [address] Consulting Physician Gastroenterology 07/22/19 Peter Ya MD [address] [place] [address] Fishing Tool Operator Cardiology 07/22/19 Vitaly Ledesma MD [address] [place] [address] Consulting Physician Neurology 07/22/19 Joshua Butterfield MD [address] [place] [address] Consulting Physician Urology 07/03/23 Jeffery Bustillos MD [address] [facility] [address] [place] [address] Consulting Physician Cardiovascular Disease 02/06/24 Shimon Schofield MD [address] [address] Consulting Physician Vascular Surgery 02/06/24 documented as of this encounter
--- OUTSIDE RECORDS SUMMARY | 2024-11-28 06:13 | XMS_ITS | Referral Summary ---
Author Organization [facility] Address [address] [place] [address] Care Team Providers Care Bench Assembler Battery Name Role Phone Kath Shepherd MD Unavailable Peter Ya MD Unavailable Aziza Ledesma MD Unavailable [phone] Joshua Butterfield MD Unavailable Jeffery Bustillos MD Unavailable [phone] Shimon Schofield MD Unavailable Preethi Godoy NP Primary Care Provider Encounters Date Type Department Care Team Description 11/26/2024 Orders Only [facility] Primary Care at [address] [address] Preethi Godoy NP 11/26/2024 Telephone [facility] Primary Care at [address] [address] Preethi Godoy NP Medical Question/Miscellaneous 11/26/2024 Orders Only [facility] Primary Care at [address] [address] Preethi Godoy NP 11/26/2024 Telephone [facility] Primary Care at [address] [address] Preethi Godoy NP Symptom Based Call 11/24/2024 Results Follow-Up [facility] Primary Care at [address] [address] Preethi Godoy NP 11/23/2024 1:22 PM SLAG EXPANDER - 11/23/2024 11:59 PM SLAG EXPANDER Hospital Encounter [address] [address] Benign hypertension with stage 3a chronic kidney disease (HCC); Iron deficiency anemia due to chronic blood loss Discharge Disposition: Discharge to home or self care 11/23/2024 1:30 PM SLAG EXPANDER Lab [facility] Outpatient Lab at [address] [address] Pneumonia due to infectious organism, unspecified laterality, unspecified part of lung (Primary Dx) 11/23/2024 1:30 PM SLAG EXPANDER Ancillary Procedure [facility] Imaging at [address] [phone] Pneumonia due to infectious organism, unspecified laterality, unspecified part of lung 11/23/2024 12:30 PM SLAG EXPANDER Office Visit [facility] Primary Care at [address] [phone] Preethi Godoy NP Pneumonia due to infectious organism, unspecified laterality, unspecified part of lung (Primary Dx); Iron deficiency anemia due to chronic blood loss; Benign hypertension with stage 3a chronic kidney disease (HCC); Persistent atrial fibrillation (HCC) 11/16/2024 Orders Only [facility] Convenient Care at [address] [address] Gladys Valdovinos NP Lower respiratory infection (e.g., bronchitis, pneumonia, pneumonitis, pulmonitis) (Primary Dx) 11/16/2024 2:00 PM SLAG EXPANDER Ancillary Procedure [facility] Imaging at [address] [phone] Acute cough 11/14/2024 Results Follow-Up [facility] Convenient Care at [address] [phone] Mandy Hernandez PA 11/14/2024 11:00 AM SLAG EXPANDER - 11/14/2024 11:59 PM SLAG EXPANDER Hospital Encounter [address] [address] Acute cough Discharge Disposition: Discharge to home or self care 11/14/2024 10:00 AM SLAG EXPANDER Office Visit [facility] Convenient Care at [address] [address] Mandy Hernandez PA Acute cough (Primary Dx) 11/10/2024 Orders Only [facility] Primary Care at [address] [address] Preethi Godoy NP 11/03/2024 Orders Only [facility] Gastroenterology [address] [place] [address] Advanced Medicine 12th [place] [address] [place] [address] Kath Shepherd MD 10/25/2024 Telephone [facility] Gastroenterology [address] [place] [address] Medicine [facility] [place] [address] [place] [phone] Jeannine Newman, TEDDY Med Management [facility]) 10/21/2024 10:58 AM SLAG EXPANDER Anesthesia Event [facility] Digestive Disease [address] [address] Danyell Maher MD 10/21/2024 10:30 AM SLAG EXPANDER - 10/21/2024 11:15 AM SLAG EXPANDER Surgery [facility] Digestive Disease [address] [address] Kath Shepherd MD COLON BIOPSY 10/21/2024 9:15 AM SLAG EXPANDER - 10/21/2024 12:33 PM SLAG EXPANDER Hospital Encounter [facility] Digestive Disease [address] [address] Kath Shepherd MD Crohn's disease of both small and large intestine with other complication (HCC) Discharge Disposition: Discharge to home or self care 10/20/2024 Telephone [facility] Medical [facility] Primary Care at [address] [phone] Preethi Godoy NP Medical Question/Miscellaneous 10/14/[address] [facility] Specialty Services [address] [place] [address] Stacey Crane RN 10/14/[address] [facility] Specialty Services [address] [place] [address] Stacey Crane RN 10/14/[address] 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, unspecified whether angina present (Primary Dx); Fatigue, unspecified type; Hypotension, unspecified hypotension type; Persistent atrial fibrillation (HCC); Nonrheumatic mitral valve regurgitation 09/01/2024 Orders Only [facility] Vascular at [address] [place] [address] Shimon Schofield MD 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 (Primary Dx) 09/01/2024 Telephone [facility] Primary Care at [address] [address] Preethi Godoy NP Test Results (Urin culture); Call Back 09/01/2024 9:00 AM SLAG EXPANDER Office Visit [facility] Vascular at [address] [place] [address] Shimon Schofield MD Peripheral artery disease (Primary Dx); Hypercholesterolemia; 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 without angina pectoris 08/30/2024 Telephone [facility] Imaging [address] [address] [address] Robyn Blanco RN 08/30/2024 Telephone [facility] Group Primary Care at [address] [address] Preethi Godoy NP Medical Question/Miscellaneous 08/30/2024 Orders Only [facility] Primary Care at [address] [address] Preethi Godoy NP 08/30/2024 2:33 PM SLAG EXPANDER - 08/30/2024 11:59 PM SLAG EXPANDER Hospital Encounter [facility] Imaging [address] Idania SMITH, CHRIS [address] Mer Lynn RN BPH with obstruction/lower urinary tract symptoms Discharge Disposition: Discharge to home or self care from Last 3 Months Allergies No known active allergies Medications coenzyme Q10 10 mg capsule Take 2 capsules (20 mg total) by mouth every morning Active kexbi-5-zdd-ep a-dpa-fish oil 1,050-1,200 mg capsule Take 1 [...] daily 48 g 3 11/10/19 25 Active allopurinoL (ZYLOPRIM) 100 mg tabletIndicati [...] of breath 1 each 11/27/19 25 Active moxifloxacin (AVELOX) 400 mg tablet Take 1 tablet (400 mg total) by mouth daily for 5 days 5 tablet 11/27/19 25 2024 Active amLODIPine (NORVASC) [...] g 3 11/10/19 25 2024 Discontinued(R eorder) azithromycin (ZITHROMAX) 250 mg tabletIndicati ons:Lower respiratory infection (e.g., bronchitis, pneumonia, pneumonitis, pulmonitis) Take 2 tablets the first day, then 1 tablet daily for 4 days. 6 tablet 11/16/19 25 2024 Discontinued(T herapy completed) amoxicillin-cl avulanate (AUGMENTIN) 500-125 mg per tabletIndicati ons:Lower respiratory infection (e.g., bronchitis, pneumonia, pneumonitis, pulmonitis) Take 1 tablet by mouth 2 (two) times a day for 5 days 10 tablet 11/16/19 25 2024 levoFLOXacin (LEVAQUIN) 750 mg tablet Take 1 tablet (750 mg total) by mouth daily for 5 days 5 tablet 11/27/19 25 2024 Discontinued levoFLOXacin (LEVAQUIN) 250 mg tablet Take 2 tablets (500 mg total) by mouth daily for 1 day, THEN 1 tablet (250 mg total) daily for 6 days. 8 tablet 11/27/19 25 2024 Discontinued(A lternate therapy) Hospital, Clinic, or Other Facility Administered Medication Ordered Dose Route Frequency Start Date End Date Status [facility] BMS-924844/placebo (/[id number]) capsule 4 capsuleIndications:Crohn' s disease of both small and large intestine with other complication (HCC) 4 capsule oral 2 times daily 05/21/2022 Active [facility] BMS-202182/placebo (/[id number]) capsule 4 capsuleIndications:Crohn' s disease of both small and large intestine with other complication (HCC) 4 capsule oral 2 times daily 06/18/2022 [facility]2150[facility] (/[id number]) capsule 4 capsuleIndications:Crohn' s disease of both small and large intestine with other complication (HCC) 4 capsule oral 2 times daily 07/09/2022 Active [facility] BMS-744732/placebo (/[id number]) capsule 4 capsuleIndications:Crohn' s disease of both small and large intestine with other complication (HCC) 4 capsule oral 2 times daily 08/07/2022 Active [facility] BMS-893587/placebo (/[id number]) capsule 4 capsuleIndications:Crohn' s disease of both small and large intestine with other complication (HCC) 4 capsule oral 2 times daily 09/19/2022 Active [facility] BMS-581024/placebo (/[id number]) capsule 4 capsuleIndications:Crohn' s disease of both [...] modification Assessment & Plan (10/03/2023 1:12 PM SLAG EXPANDER): Chronic. Due to prior peripheral arterial disease. [...] urologist Assessment & Plan (10/03/2023 1:12 PM SLAG EXPANDER): Chronic. Continue medication care per Urology Assessment & Plan (07/03/2023 5:22 PM CDT): Follows with Urology [facility] Dr. Butterfield. Patient on finasteride and does intermittent straight catheterization Protein-calorie malnutrition, mild 07/03/2023 Overview (07/03/2023): Patient with low BMI. Less protein level was low. Monitor weight Assessment & Plan (02/06/2024 4:55 PM CDT): Patient has had borderline protein calorie malnutrition. Monitor his protein levels on labs. Encourage adequate nutrition. Avoid additional weight loss Assessment & Plan (10/03/2023 1:12 PM SLAG EXPANDER): Chronic. BMI remains at the lower end arrange. Encouraged adequate nutrition. Monitor History of gout 07/03/2023 Assessment & Plan (02/06/2024 4:55 PM CDT): Chronic. Denies history of recent flares. Continue allopurinol for prophylaxis. Check uric acid Assessment & Plan (10/03/2023 1:12 PM SLAG EXPANDER): Chronic. Denies any history of gout in [...] 03/14/2023 Assessment & Plan (10/03/2023 1:13 PM SLAG EXPANDER): Chronic. May occasionally increase in size. Minimal pain. Has deferred elective repair in the past Persistent atrial fibrillation 12/04/2021 Assessment & Plan (11/23/2024 1:36 PM SLAG EXPANDER): Rate controlled in office, continuing follow up with Cardiology. Assessment & Plan (03/01/2024 7:51 AM CDT): Stable continue metoprolol. Assessment & Plan (02/06/2024 4:55 PM CDT): Chronic. Controlled rate with metoprolol. Continue. Continue aspirin for stroke prophylaxis Assessment & Plan (10/03/2023 1:12 PM SLAG EXPANDER): Chronic. Continue risk factor modification. Continue ASA [...] Monitor Assessment & Plan (10/03/2023 1:11 PM SLAG EXPANDER): Chronic. Denies significant worsening. No agitation recently. [...] They denies significant agitation Cerebral amyloid angiopathy ([facility]) 02/15/2020 Assessment & Plan (02/06/2024 4:54 PM CDT): Chronic. Memory has worsened slightly in the last year. He does have some fluctuations at times. No real agitation. Target good blood pressure control. Continue aspirin for his other issues. Would be cautious with more aggressive anticoagulation given history of amyloid angiopathy Assessment & Plan (10/03/2023 1:11 PM SLAG EXPANDER): Chronic. Denies any progression of symptoms Assessment & Plan (07/03/2023 5:18 PM CDT): Chronic. Control blood pressure and modify risk factors as able. Continue aspirin given AFib but would be cautious with stronger anticoagulants given increased bleeding risk with cerebral amyloid angiopathy Peripheral artery disease 09/10/2019 Overview (09/10/2019): Added automatically from request for surgery [id number] Assessment & Plan (09/03/2024 10:57 AM SLAG EXPANDER): Stable lower extremity occlusive disease. Continue risk [...] duplex. Assessment & Plan (10/03/2023 1:11 PM SLAG EXPANDER): Chronic. Denies recent claudication symptoms. Continue ASA, statin and Pletal Assessment & Plan (07/03/2023 5:22 PM CDT): Chronic. 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 Denies current sores on his feet. Follows with Podiatry in [place]. On cilostazol Iron deficiency anemia due to [...] 02/17/2019 Assessment & Plan (11/23/2024 1:35 PM SLAG EXPANDER): BP normal in office, continuing current regimen. [...] dehydrate Assessment & Plan (10/03/2023 1:10 PM SLAG EXPANDER): Chronic. Blood pressure controlled. Continue current prescription [...] (01/26/2019): Added automatically from request for surgery [id number] Assessment & Plan (02/06/2024 4:52 PM CDT): Chronic. Disease has been stable. Minimal symptoms. He does have to be cautious with eating too many fruits and vegetables as he notes this does cause some GI distress. He remains controlled with Skyrezi and hydroxychloroquine. He will continue Assessment & Plan (10/03/2023 1:10 PM SLAG EXPANDER): Chronic. Symptomatically improved per patient. Continue medication and care per GI Assessment & Plan (07/03/2023 5:20 PM CDT): Chronic. Follows with Gastroenterology. On scar oz and sulfasalazine. Continue medication and care per them CAD (coronary artery disease) 12/04/2018 Assessment & Plan (09/03/2024 10:57 AM SLAG EXPANDER): Stable continue ASA and Lasix Assessment & Plan (02/06/2024 4:51 PM CDT): Chronic. Denies chest pain. Continue risk factor modification with statin, aspirin, blood pressure control. Target LDL less than 70 Assessment & Plan (10/03/2023 1:10 PM SLAG EXPANDER): Chronic. Denies chest pain. Follows with cardiology. [...] 12/30/2017 Assessment & Plan (08/25/2024 4:06 PM SLAG EXPANDER): Updated labs ordered, Hemoglobin was 9 in [...] infusions Assessment & Plan (10/03/2023 1:10 PM SLAG EXPANDER): Chronic. Follows with GI and Hematology. Has received iron infusions. Often does B12 injections Assessment & Plan (07/03/2023 5:15 PM CDT): Chronic. Follows with GI and Hematology. Received iron infusions Hypercholesterolemia 02/05/2011 Assessment & Plan (09/03/2024 10:57 AM SLAG EXPANDER): Stable continue statin therapy. Assessment & Plan (03/01/2024 7:50 AM CDT): Stable continue statin therapy. Assessment & Plan (02/06/2024 4:53 PM CDT): Chronic. Tolerates atorvastatin. Continue. Check cholesterol level and adjust for an LDL goal of at least less than 70 with optimal less than 55 Assessment & Plan (10/03/2023 1:10 PM SLAG EXPANDER): Chronic. Tolerates current prescription medication. 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 [employer]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 Last Filed Vital Signs Vital Sign Reading Time Taken Comments Blood Pressure 120/60 11/23/2024 12:30 PM SLAG EXPANDER Pulse 80 11/23/2024 12:30 PM SLAG EXPANDER Temperature 36.4 C (97.5 F) 11/23/2024 12:30 PM SLAG EXPANDER Respiratory Rate 20 11/14/2024 10:16 AM SLAG EXPANDER Oxygen Saturation 99% 11/14/2024 10:16 AM SLAG EXPANDER Inhaled Oxygen Concentration - - Weight 64 kg (141 lb) 11/23/2024 12:30 PM SLAG EXPANDER Height 177.8 cm (5' 10 ) 11/23/2024 12:30 PM SLAG EXPANDER Body Mass Index 20.23 11/23/2024 12:30 PM SLAG EXPANDER Plan of Treatment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 Medical Devices Implanted Type Area Sammying Machine Operator Device Identifier Shelf Expiration Date Model / Serial / Lot Synchroneuron Araceli [id number] Synergy 3.5mm 24mm 144cm Radiopaque 1 Access Port Inflation Lumen - [id number] - [id number] Implanted:Qty: 1 on 03/26/2019 by Alban Santana MD at [facility] [employer] 12/09/2020 [id number] 350 / [id number] / [id number] Procedures Procedure Name Priority Date/Time Associated Diagnosis Comments XR CHEST PA LATERAL 2 VIEWS Schedule Routine, Read Routine (OP Routine) 11/23/2024 1:30 PM SLAG EXPANDER Pneumonia due to infectious organism, unspecified laterality, unspecified part of lung EGFR Routine 11/23/2024 1:22 PM SLAG EXPANDER Benign hypertension with stage 3a chronic kidney disease (HCC) DIFFERENTIAL AUTO Routine 11/23/2024 1:2 2 PM SLAG EXPANDER Iron deficiency anemia due to chronic blood loss Benign hypertension with stage 3a chronic kidney disease (HCC) CBC WITH AUTO DIFFERENTIAL Routine 11/23/2024 1:22 PM SLAG EXPANDER Iron deficiency anemia due to chronic blood loss Benign hypertension with stage 3a chronic kidney disease (HCC) IRON Routine 11/23/2024 1:22 PM SLAG EXPANDER Iron deficiency anemia due to chronic blood loss BASIC METABOLIC PANEL Routine 11/23/2024 1:22 PM SLAG EXPANDER Benign hypertension with stage 3a chronic kidney disease (HCC) XR CHEST PA LATERAL 2 VIEWS Schedule YULIANA, Read YULIANA (Appt Today, Awaiting Results) 11/16/2024 2:07 PM SLAG EXPANDER Acute cough INFLUENZA A/B, RSV, AND COVID-19 PCR Routine 11/14/2024 11:00 AM SLAG EXPANDER Acute cough POC INFLUENZA A/B, COVID-19 ANTIGEN Routine 11/14/2024 10:47 AM SLAG EXPANDER Acute cough SURGICAL PATHOLOGY Routine 10/21/2024 11 :18 AM SLAG EXPANDER Crohn's disease of both small and large intestine with other complication (HCC) COLON BIOPSY 10/21/2024 10:58 AM SLAG EXPANDER Crohn's disease of both small and large intestine with other complication (HCC) COLONOSCOPY 10/21/2024 10:56 AM SLAG EXPANDER HC EST VISIT LEVEL 4 Schedule Routine, Read Routine (OP Routine) 08/30/2024 3:44 PM SLAG EXPANDER BPH with obstruction/lower urinary tract symptoms CTA [...] PA Lateral 2 Views (11/23/2024 1:30 PM SLAG EXPANDER) Anatomical Region Laterality Modality Body, Chest N/A Digital Radiogra phy 11/26/2024 2:09 PM SLAG EXPANDER Narrative 11/26/2024 2:11 PM SLAG EXPANDER EXAM DESCRIPTION: XR CHEST PA LATERAL 2 [...] bilateral pleural effusion with adjacent airspace opacities, [id number]-left. Right mid chest linear density , linear [...] Buck Oleary D.O. AP T: Report ID: [id number] Reading Location: [id number] Procedure Note Buck Oleary, DO - 11/26/2024 [...] Small bilateral pleural effusionwith adjacent airspace opacities, idsbh-[id number]-jfxb-left. Right mid chestlinear density , linear atelectasis [...] Buck Oleary D.O. AP T: Report ID: [id number] Reading Location: [place] [address] us Preethi Godoy MEDICAL REIMBURSEMENT SPECIALIST IMG XR PROCEDURES Final Result * (ABNORMAL) eGFR (11/23/2024 1:22 PM SLAG EXPANDER) eGFR 34(L) >=60 mL/min/1. 73 m2 Comment: [...] of Race in Diagnosing Kidney Disease, JASN 202). The CKD-EPI equation should not be used for patients with unstable renal function and has not been validated in children and those over 70. Current interpretive data was last reviewed 2021. Blood 11/23/2024 1:22 PM SLAG EXPANDER 11/24/2024 11:14 AM SLAG EXPANDER Preethi Godoy NP LAB BLOOD ORDERABLES Final Resul t [facility] [id number] [place] [address] * (ABNORMAL) Differential, auto (11/23/2024 1:22 PM SLAG EXPANDER) Neutrophil abs 6.3 1.5 - 6.5 K/cumm Imm gran abs 0.0 0.0 - 0.1 K/cumm [facility] Lymphocyte abs 0.7(L) 0.8 - 3.3 K/cumm [facility] Monocyte abs 1.0(H) 0.2 - 0.8 K/cumm [facility] Eosinophil abs 0.2 0.0 - 0.5 K/cumm [facility] Basophil abs 0.1 0.0 - 0.1 K/cumm [facility] Neutrophil pct 75.6 % [facility] Comment: Interpretive Data Percent cell count reference ranges are not reported, since discordance with absolute values may lead to misinterpretation of CBC data. Current Interpretive Data was last revised on 2017. Imm gran pct 0.5 % [facility] Comment: Interpretive Data Percent cell count reference ranges are not reported, since discordance with absolute values may lead to misinterpretation of CBC data. Current Interpretive Data was last revised on 2017. Lymphocyte pct 8.8 % [facility] Comment: Interpretive Data Percent cell count reference ranges are not reported, since discordance with absolute values may lead to misinterpretation of CBC data. Current Interpretive Data was last revised on 2017. Monocyte pct 11.6 % [facility] Comment: Interpretive Data Percent cell count reference ranges are not reported, since discordance with absolute values may lead to misinterpretation of CBC data. Current Interpretive Data was last revised on 2017. Eosinophil pct 2.9 % [facility] Comment: Interpretive Data Percent cell count reference ranges are not reported, since discordance with absolute values may lead to misinterpretation of CBC data. Current Interpretive Data was last revised on 2017. Basophil pct 0.6 % [facility] Comment: Interpretive Data Percent cell count reference ranges are not reported, since discordance with absolute values may lead to misinterpretation of CBC data. Current Interpretive Data was last revised on 2017. Blood 11/23/2024 1:22 PM SLAG EXPANDER 11/24/2024 11:08 AM SLAG EXPANDER Preethi Godoy NP LAB BLOOD ORDERABLES Final Resul t [facility] [id number] [place] [address] * (ABNORMAL) CBC with auto differential (11/23/2024 1:22 PM SLAG EXPANDER) WBC 8.4 3.8 - 9.9 K/cumm Hgb 9.7(L) 13.0 - 17.5 g/dL [facility] Hct 31.3(L) 38.9 - 50.3 % [facility] Plt 179 150 - 400 K/cumm [facility] MPV 10.2 9.1 - 12.3 fL [facility] RBC 3.12(L) 4.30 - 5.80 M/cumm [facility] MCV 100.3(H) 81.3 - 96.4 fL [facility] MCH 31.1 27.1 - 33.3 pg [facility] MCHC 31.0(L) 32.3 - 35.7 g/dL [facility] RDW CV 17.2(H) 11.1 - 14.9 % [facility] RDW SD 64.2(H) 35.7 - 48.1 fL [facility] NRBC abs 0.00 0.00 - 0.01 K/cumm [facility] Blood 11/23/2024 1:22 PM SLAG EXPANDER 11/24/2024 11:08 AM SLAG EXPANDER us Preethi Godoy MEDICAL REIMBURSEMENT SPECIALIST LAB BLOOD ORDERABLES Final Resul t Performing Organization Address [facility] de Phone Number TRAVIS [place]OWN[place]E [phone] [place] [address] * (ABNORMAL) Iron level (11/23/2024 1:22 PM SLAG EXPANDER) Pathologist [facility] Iron 47(L) 50 - 150 mcg/dl Blood 11/23/2024 1:22 PM SLAG EXPANDER 11/24/2024 11:08 AM SLAG EXPANDER us Preethi Godoy MEDICAL REIMBURSEMENT SPECIALIST LAB BLOOD ORDERABLES Final Resul t Performing Organization Address [facility] de Phone Number TRAVIS [phone] [place] [address] * (ABNORMAL) Basic metabolic panel (11/23/2024 1:22 PM SLAG EXPANDER) Pathologist [facility] Sodium 141 135 - 145 mmol/L Potassium, pl 3.6 3.3 - 4.9 mmol/L [facility] Chloride 109 97 - 110 mmol/L [facility] CO2 21(L) 22 - 32 mmol/L [facility] Anion gap 11 2 - 15 mmol/L [facility] BUN 18 6 - 25 mg/dL [facility] Creatinine 1.97(H) 0.80 - 1.30 mg/dL [facility] Glucose 75 70 - 199 mg/dL [facility] Comment: Interpretive Data Fasting glucose >/= 126 [...] 2022. Calcium 8.1(L) 8.5 - 10.3 mg/dL TRAVIS TORRIE Blood 11/23/2024 1:22 PM SLAG EXPANDER 11/24/2024 11:08 AM SLAG EXPANDER Preethi Godoy NP LAB BLOOD ORDERABLES Final Resul t TRAVIS BROWNLEE [id number] Department [place] [address] * XR Chest Pa Lateral 2 Views (11/16/2024 2:07 PM SLAG EXPANDER) Anatomical Region Laterality Modality Body, Chest N/A Digital Radiogra phy 11/16/2024 3:45 PM SLAG EXPANDER Narrative 11/16/2024 3:51 PM SLAG EXPANDER EXAM DESCRIPTION: XR CHEST PA LATERAL 2 [...] 3:51 PM - Electronically signed by Jeffery CRUMP T: Report ID: [id number] Reading Location: [id number] Procedure Note Jeffery Dawkins MD - 11/16/2024 [...] Jeffery Dawkins M.D. MJ T: Report ID: [id number] Reading Location: [id number] Mandy T[facility]END IMG XR PROCEDURES Final Result * (ABNORMAL) Influenza A/B, RSV, and COVID-19 PCR Nasopharyngeal (11/14/2024 11:00 AM SLAG EXPANDER) Pathologist [facility] COVID-19 RNA Negative Negative Influenza A RNA Negative Negative [facility] Influenza B RNA Negative Negative [facility] RSV RNA Positive(A) Negative [facility] Comment: Interpretive data: Testing performed by [facility]. This test is performed using the [employer] Xpert Xpress CoV-2/Flu/RSV plus assay. This is a multiplex, real-time reverse transcriptase PCR assay intended for the qualitative detection of nucleic acid from SARS-CoV-2, influenza A, influenza B, and respiratory syncytial virus. This assay has been cleared by the [place] Food and Drug administration. The performance characteristics have been verified by the [facility]. Results must be considered in the clinical context, and a negative result does not rule out infection. Interpretive Data last revised 2023 Nasopharyngeal 11/14/2024 11 :00 AM SLAG EXPANDER 11/14/2024 2:41 PM SLAG EXPANDER Narrative CERNER - 11/14/2024 3:32 PM SLAG EXPANDER Is the Patient experiencing symptoms consistent with COVID?->Yes M[facility]END LAB MICROBIOLOGY - GENER AL ORDERABLES Final Result Performing Organization Address City/[facility]/ZIP Co de Phone Number [facility] [id number] Department [place] [address] [place] * POC Influenza A/B, COVID-19 antigen (11/14/2024 10:47 AM SLAG EXPANDER) Influenza A Ag, POC Negative Negative [facility] Influenza B Ag, POC Negative Negative [facility] COVID-19 Ag POC Presumptive Negative Presumptive Negative, Invalid [facility] Nasal 11/14/2024 10:4 7 AM SLAG EXPANDER Mandy TOWNSEND POINT OF CARE TEST ORDER MANJINDER Final Result [facility] [address] * Surgical pathology (10/21/2024 11:18 AM SLAG EXPANDER) Tissue (Ileum, Biopsy) 10/21/2024 11:18 AM SLAG EXPANDER Tissue (Colon, Biopsy) 10/21/2024 11:31 AM SLAG EXPANDER Narrative PATHOLOGY [facility] - 10/22/2024 11:22 AM SLAG EXPANDER EPIC results best viewed via link to PDF [facility] Ambreen Bello [facility] [place] [address] Note to Patients: This report may contain [...] Gender: M : 1945 (Age: 79) Address: [address] [place] [address] Hospital #: [id number] Taken:10/21/2024 Received:10/21/2024 Reported: 10/22/2024 Patient Type: [facility] Service: Gastro Location: Physician(s): Edmund Waterman F.N.P. Diagnosis: A. Small intestine, terminal ileum, endoscopic biopsy - No histopathologic abnormality - No evidence of acute or chronic ileitis, ulcers, or granulomas - No dysplasia or malignancy B. Large intestine, random colon, endoscopic biopsy - No histopathologic abnormality - No evidence of active colitis, chronic colitis, ulcers, or granulomas - No dysplasia or malignancy [facility]/10/22/2024 11:22 By this signature, I attest that the above diagnosis is based upon my personal examination of the slides(and/or other material indicated in the diagnosis). Erlin Mancera MD Report Electronically Reviewed and Signed Out By Elrin Mancera MD 10/22/2024 11:22:15 Microscopic Description and [...] Surgical Pathology and Flow Cytometry Departments at [facility] as part of an ongoing fuel quality tech program and in compliance with federally mandated [...] Surgical Pathology and Flow Cytometry Departments of [facility]. It has not been cleared or approved by the [place]. [place]. Food and Drug Administration. IMAGES AND SCANNED DOCUMENTS, IF INCLUDED, ONLY VIEWABLE IN PDF VERSION OF REPORT us Kath Shepherd MD LAB PATHOLOGY ORDERABLES Laly l Result PATHOLOGY [facility] 3rd Floor [place] [phone] * Colonoscopy (10/21/2024 10:56 AM SLAG EXPANDER) Anatomical Region Laterality Modality Other Narrative Procedure Note Kath Shepherd MD - 10/21/2024 10:56 AM [facility] Patient Name: Aziza Loya Procedure Date: 10/21/2024 10:56 AM Date of : 1945 Admit Type: Outpatient Age: 79 Gender: Male Attending MD: Kath Shepherd M.D. Room: [facility] ENDOSCOPY ROOM 3 Note Status: Finalized Procedure: Colonoscopy Indications: Disease activity assessment of Crohn's disease ofthe small bowel and colon Referring MD: Christopher EmmanuelNHansaP. Providers: Kath Shepherd M.D., Isabell Bella M.D. [...] The scope was passed under direct vision.The PC [id number] endoscope was introducedthrough the anus and [...] 0 Note Initiated On: 10/21/2024 10:56 AM Kath Shepherd MD ENDOSCOPY PROCEDURES Final Re sult * Consult to Interventional Radiology ([facility]) (08/30/2024 3:44 PM SLAG EXPANDER) Anatomical Region Laterality Modality N/A X-Ray Angiograph y 08/30/2024 3:47 PM SLAG EXPANDER Impressions 08/30/2024 3:47 PM SLAG EXPANDER Patient has history of prior prostate surgery, and he is not a good candidate for PAE. Complete details regarding this office visit can be found in [facility] under the Notes tab. Electronically signed by: Phan Hudson M.D. Narrative 08/30/2024 3:47 PM SLAG EXPANDER EXAMINATION: [facility] VISIT HISTORY: 79-year-old male patient with lower urinary tract symptoms, ears for evaluation for prostatic artery embolization. Procedure Note Phan Hudson MD - 08/30/2024 EXAMINATION: [facility] VISIT HISTORY: 79-year-old male patient with lower urinary tract symptoms, ears for evaluation for prostatic artery embolization. IMPRESSION: Patient has history of prior prostate surgery, and he is not a good candidate for PAE. Complete details regarding this office visit can be found in [facility] under the Notes tab. Electronically signed [...] signed by Steven RAJPUT T: Report ID: [id number] Reading Location: [id number] Procedure Note Steven Ruano MD - 02/24/2024 [...] Steven Ruano M.D. RB T: Report ID: [id number] Reading Location: [place] [address] PROCEDURES Final Res [...] MICROBIOLOGY - GEN ERAL ORDERABLES Final Result TRAVIS [address] [place] [address] from Last 3 Months or Most Recently Relevant to Health Maintenance Insurance [facility] MEDICARE MEDICARE [facility] MEDICARE [facility] Member Subscriber Plan / Payer ( fective 2017-) Name:Aziza Loya Relation to Subscriber:Self Name:Aziza Loya Payer ID:[id number] Group ID:[id number] Type:[employer] Address: [facility] [address] [place] [address] MEDICARE [facility] MEDICARE [facility] Advance Directives For more information, please contact: [phone] * Full Code (Latest Code Status on [...] 10:45 AM 05/17/2022 5:55 PM Care Teams Bench Assembler Battery Relationship Specialty Start Date End Date Preethi Godoy NP [address] [place] [address] PCP - General Family Medicine 08/25/24 Kath Shepherd MD [address] [place] [address] Consulting Physician Gastroenterology 07/22/19 Peter Ya MD [address] [place] [address] End Touching Machine Operator Cardiology 07/22/19 Aziza Ledesma MD [address] [place] [address] Consulting Physician Neurology 07/22/19 Joshua Butterfield MD [address] [place] [address] [address] [place] [address] Consulting Physician Urology 07/03/23 Jeffery Bustillos MD [address] [place] [address] [address] [place] [address] Consulting Physician Cardiovascular Disease 02/06/24 Shimon Schofield MD [address] [address] Consulting Physician Vascular Surgery 02/06/24
--- OUTSIDE RECORDS SUMMARY | 2024-11-28 06:13 | XMS_ITS | Encounter Summary ---
Author Organization [facility] Address [address] [place] [address] Care Team Providers Care Net Technical Architect Name Role Phone John Kimbrough MD Primary Care Provider Kath Shepherd MD Unavailable [phone] Peter Ya MD Unavailable [phone] Vitaly Ledesma MD Unavailable [phone] Anayeli Lee MD Primary Care Provider Joshua Butterfield MD Unavailable [phone] Jeffery Bustillos MD Unavailable [phone] Shimon Schofield MD Unavailable Preethi Godoy NP Primary Care Provider [phone] Encounter Details Date Type Department Care Team (Late st Contact Info) Description 03/26/2019 Documentation [facility] [address] [place] [address] Kaykay Jason, TEDDY Social History Tobacco Use Types Packs/Day Years Used Date Smoking Tobacco: Former Smokeless Tobacco: Never Alcohol Use Standard Drinks/Week Comments No 0 (1 standard drink = 0.6 oz pur e alcohol) Sex and Gender Information Value Date Recorded Sex Assigned at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 2:24 AM CLINICAL RESEARCH ASSOCIATE Gender Identity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 Sexual Orientation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 documented as of this encounter Plan of Treatment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 documented as of this encounter Visit Diagnoses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documented in this encounter Additional Health Concerns Infection Onset Date Last Indicated Resolved Time COVID: Suspected 08/21/2021 08/21/2021 08/21/2021 11:38 AM CLINICAL RESEARCH ASSOCIATE COVID: Suspected 11/14/2024 11/14/2024 11/14/2024 10:49 AM CLINICAL RESEARCH ASSOCIATE COVID: Suspected 11/14/2024 11/14/2024 11/14/2024 3:33 PM CLINICAL RESEARCH ASSOCIATE RSV, droplet 11/14/2024 11/14/2024 11/21/2024 3:07 AM CLINICAL RESEARCH ASSOCIATE documented as of this encounter Care Teams Net Technical Architect Relationship Specialty Start Date End Date John Kimbrough MD [address] [facility] [address] [place] [address] PCP - General 11/08/16 07/02/23 Anayeli Lee MD [address] [place] [address] PCP - General Family Medicine 07/03/23 08/24/24 Preethi Godoy NP [address] [facility] [address] [place], [place] [id number] PCP - General Family Medicine 08/25/24 Kath Shepherd MD [address] [place] [address] Consulting Physician Gastroenterology 07/22/19 Peter Ya MD [address] [place] [address] Oil And Gas Lease Pumper Cardiology 07/22/19 Vitaly Ledesma MD [address] [place] [address] Consulting Physician Neurology 07/22/19 Joshua Butterfield MD [address] [facility] [address] [place] [address] Consulting Physician Urology 07/03/23 Jeffery Bustillos MD [address] [facility] [address] [place] [address] Consulting Physician Cardiovascular Disease 02/06/24 Shimon Schofield MD [address] [facility] [address] [place] [address] Consulting Physician Vascular Surgery 02/06/24 documented as of this encounter"
--- OUTSIDE RECORDS SUMMARY | 2024-11-28 06:13 | XMS_ITS | Clinical Summary ---
Author Organization [facility] Address [address] [place] [address] Care Team Providers Care [employer] Name Role Phone Kath Shepherd MD Unavailable [phone] Peter Ya MD Unavailable Aziza Ledesma MD Unavailable [phone] Joshua Butterfield MD Unavailable [phone] Jeffery Bustillos MD Unavailable [phone] Shimon Schofield MD Unavailable Preethi Godyo NP Primary Care Provider [phone] Allergies No known active allergies Medications coenzyme Q10 10 mg capsule Take 2 capsules (20 mg total) by mouth every morning Active olxiq-5-mmy-ep a-dpa-fish oil 1,050-1,200 mg capsule Take 1 [...] Route Frequency Start Date End Date Status [facility] BMS-517659/placebo ([id number]) capsule 4 capsuleIndications:Crohn' s disease of both small and large intestine with other complication (HCC) 4 capsule oral 2 times daily 05/21/2022 Active [facility] BMS-911819/placebo ([id number]) capsule 4 capsuleIndications:Crohn' s disease of both small and large intestine with other complication (HCC) 4 capsule oral 2 times daily 06/18/2022 Active [facility] BMS-659133/placebo ([id number]) capsule 4 capsuleIndications:Crohn' s disease of both small and large intestine with other complication (HCC) 4 capsule oral 2 times daily 07/09/2022 Active [facility] BMS-310987/placebo ([id number]) capsule 4 capsuleIndications:Crohn' s disease of both small and large intestine with other complication (HCC) 4 capsule oral 2 times daily 08/07/2022 Active [facility] BMS-324668/placebo ([id number]) capsule 4 capsuleIndications:Crohn' s disease of both small and large intestine with other complication (HCC) 4 capsule oral 2 times daily 09/19/2022 Active [facility] BMS-123798/placebo ([id number]) capsule 4 capsuleIndications:Crohn' s disease of both small and large intestine with other complication (HCC) 4 capsule oral 2 times daily 10/21/2022 Active Active Problems Problem Noted Date Diagnosed Date Nonrheumatic mitral valve regurgitation 09/08/20 24 B12 deficiency 02/06/2024 KALYA (generalized anxiety disorder) 02/06/2024 Assessment & Plan (02/06/2024 4:58 PM CDT): Chronic. Stable. Continue Lexapro. Monitor Hx of CABG 11/27/2023 History of amputation of lesser toe of left foot 07/03/2023 Assessment & Plan (02/06/2024 4:55 PM CDT): Chronic. Denies any new wounds on his feet. Continue risk factor modification Assessment & Plan (10/03/2023 1:12 PM PLATING 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): Chronic. Due to prior peripheral arterial disease. [...] urologist Assessment & Plan (10/03/2023 1:12 PM PLATING 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): Chronic. Continue medication care per Urology Assessment & Plan (07/03/2023 5:22 PM CDT): Follows with [facility] [place] Dr. Butterfield. Patient on finasteride and does intermittent straight catheterization Protein-calorie malnutrition, mild 07/03/2023 Overview (07/03/2023): Patient with low BMI. Less protein level was low. Monitor weight Assessment & Plan (02/06/2024 4:55 PM CDT): Patient has had borderline protein calorie malnutrition. Monitor his protein levels on labs. Encourage adequate nutrition. Avoid additional weight loss Assessment & Plan (10/03/2023 1:12 PM PLATING 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): Chronic. BMI remains at the lower end arrange. Encouraged adequate nutrition. Monitor History of gout 07/03/2023 Assessment & Plan (02/06/2024 4:55 PM CDT): Chronic. Denies history of recent flares. Continue allopurinol for prophylaxis. Check uric acid Assessment & Plan (10/03/2023 1:12 PM PLATING 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): Chronic. Denies any history of gout in [...] 03/14/2023 Assessment & Plan (10/03/2023 1:13 PM PLATING 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): Chronic. May occasionally increase in size. Minimal pain. Has deferred elective repair in the past Persistent atrial fibrillation 12/04/2021 Assessment & Plan (11/23/2024 1:36 PM PLATING 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): Rate controlled in office, continuing follow up with Cardiology. Assessment & Plan (03/01/2024 7:51 AM CDT): Stable continue metoprolol. Assessment & Plan (02/06/2024 4:55 PM CDT): Chronic. Controlled rate with metoprolol. Continue. Continue aspirin for stroke prophylaxis Assessment & Plan (10/03/2023 1:12 PM PLATING 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): Chronic. Continue risk factor modification. Continue ASA [...] Monitor Assessment & Plan (10/03/2023 1:11 PM PLATING 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): Chronic. Denies significant worsening. No agitation recently. [...] They denies significant agitation Cerebral amyloid angiopathy ([facility]) 02/15/2020 Assessment & Plan (02/06/2024 4:54 PM CDT): Chronic. Memory has worsened slightly in the last year. He does have some fluctuations at times. No real agitation. Target good blood pressure control. Continue aspirin for his other issues. Would be cautious with more aggressive anticoagulation given history of amyloid angiopathy Assessment & Plan (10/03/2023 1:11 PM PLATING 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): Chronic. Denies any progression of symptoms Assessment & Plan (07/03/2023 5:18 PM CDT): Chronic. Control blood pressure and modify risk factors as able. Continue aspirin given AFib but would be cautious with stronger anticoagulants given increased bleeding risk with cerebral amyloid angiopathy Peripheral artery disease 09/10/2019 Overview (09/10/2019): Added automatically from request for surgery [id number] Assessment & Plan (09/03/2024 10:57 AM PLATING 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): Stable lower extremity occlusive disease. Continue risk [...] duplex. Assessment & Plan (10/03/2023 1:11 PM PLATING 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): Chronic. Denies recent claudication symptoms. Continue ASA, statin and Pletal Assessment & Plan (07/03/2023 5:22 PM CDT): Chronic. 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 Denies current sores on his feet. Follows with Podiatry in [place]. On cilostazol Iron deficiency anemia due to [...] 02/17/2019 Assessment & Plan (11/23/2024 1:35 PM PLATING 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): BP normal in office, continuing current regimen. [...] dehydrate Assessment & Plan (10/03/2023 1:10 PM PLATING 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): Chronic. Blood pressure controlled. Continue current prescription [...] (01/26/2019): Added automatically from request for surgery [id number] Assessment & Plan (02/06/2024 4:52 PM CDT): Chronic. Disease has been stable. Minimal symptoms. He does have to be cautious with eating too many fruits and vegetables as he notes this does cause some GI distress. He remains controlled with Skyrezi and hydroxychloroquine. He will continue Assessment & Plan (10/03/2023 1:10 PM PLATING 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): Chronic. Symptomatically improved per patient. Continue medication and care per GI Assessment & Plan (07/03/2023 5:20 PM CDT): Chronic. Follows with Gastroenterology. On scar oz and sulfasalazine. Continue medication and care per them CAD (coronary artery disease) 12/04/2018 Assessment & Plan (09/03/2024 10:57 AM PLATING 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): Stable continue ASA and Lasix Assessment & Plan (02/06/2024 4:51 PM CDT): Chronic. Denies chest pain. Continue risk factor modification with statin, aspirin, blood pressure control. Target LDL less than 70 Assessment & Plan (10/03/2023 1:10 PM PLATING 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): Chronic. Denies chest pain. Follows with cardiology. [...] 12/30/2017 Assessment & Plan (08/25/2024 4:06 PM PLATING 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): Updated labs ordered, Hemoglobin was 9 in [...] infusions Assessment & Plan (10/03/2023 1:10 PM PLATING 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): Chronic. Follows with GI and Hematology. Has received iron infusions. Often does B12 injections Assessment & Plan (07/03/2023 5:15 PM CDT): Chronic. Follows with GI and Hematology. Received iron infusions Hypercholesterolemia 02/05/2011 Assessment & Plan (09/03/2024 10:57 AM PLATING 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): Stable continue statin therapy. Assessment & Plan (03/01/2024 7:50 AM CDT): Stable continue statin therapy. Assessment & Plan (02/06/2024 4:53 PM CDT): Chronic. Tolerates atorvastatin. Continue. Check cholesterol level and adjust for an LDL goal of at least less than 70 with optimal less than 55 Assessment & Plan (10/03/2023 1:10 PM PLATING 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): Chronic. Tolerates current prescription medication. Continue Assessment [...] (05/29/2021): Added automatically from request for surgery [id number] Crohn's disease with rectal bleeding 12/10/2018 07/03/2023 Overview (12/10/2018): Added automatically from request for surgery [id number] Peripheral vascular disease 02/13/2017 07/03/2023 Gastrointestinal hemorrhage 07/03/2023 Acute renal failure 07/03/20 23 Crohn's disease of colon with rectal bleeding 07/03/2023 Assessment & Plan (12/04/2021 1:34 PM CDT): Has upcoming endoscopy. Encounters Date Type Department Care Team Description 11/26/2024 Orders Only [facility] Primary Care at [address] [phone] Preethi Godoy, DONALD 11/26/2024 Telephone [facility] Primary Care at [address] [phone] Preethi Godoy, DONALD Medical Question/Miscellaneous 11/26/2024 Orders Only [facility] Primary Care at [address] [phone] Preethi Godoy MENTAL HEALTH TECH 11/26/2024 Telephone [facility] Primary Care at [address] [phone] Preethi Godoy MENTAL HEALTH TECH Symptom Based Call 11/24/2024 Results Follow-Up [facility] Primary Care at [address] [phone] Preethi Godoy MENTAL HEALTH TECH 11/23/2024 1:30 PM PLATING 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 Lab [facility] Outpatient Lab at [address] [phone] Pneumonia due to infectious organism, unspecified laterality, unspecified part of lung (Primary Dx) 11/23/2024 1:30 PM PLATING 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 Ancillary Procedure [facility] Imaging at [address] [phone] Pneumonia due to infectious organism, unspecified laterality, unspecified part of lung 11/23/2024 1:22 PM PLATING 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 - 11/23/2024 11:59 PM PLATING 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 Hospital Encounter [address] [address] Benign hypertension with stage 3a chronic kidney disease (HCC); Iron deficiency anemia due to chronic blood loss Discharge Disposition: Discharge to home or self care 11/23/2024 12:30 PM PLATING 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 Office Visit [facility] Primary Care at [address] [phone] Preethi Godoy, MENTAL HEALTH TECH Pneumonia due to infectious organism, unspecified laterality, unspecified part of lung (Primary Dx); Iron deficiency anemia due to chronic blood loss; Benign hypertension with stage 3a chronic kidney disease (HCC); Persistent atrial fibrillation (HCC) 11/16/2024 2:00 PM PLATING 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 Ancillary Procedure [facility] Imaging at [address] [phone] Acute cough 11/16/2024 Orders Only [facility] Convenient Care at [address] [phone] Trower, Gladys M., MENTAL HEALTH TECH Lower respiratory infection (e.g., bronchitis, pneumonia, pneumonitis, pulmonitis) (Primary Dx) 11/14/2024 11:00 AM PLATING 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 - 11/14/2024 11:59 PM PLATING 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 Hospital Encounter [address] [address] Acute cough Discharge Disposition: Discharge to home or self care 11/14/2024 10:00 AM PLATING 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 Office Visit [facility] Convenient Care at [address] [phone] Mandy Hernandez PA Acute cough (Primary Dx) 11/14/2024 Results Follow-Up [facility] Convenient Care at [address] [phone] Mandy Hernandez PA 11/10/2024 Orders Only [facility] Primary Care at [address] [phone] Preethi Godoy NP 11/03/2024 Orders Only [facility] Gastroenterology [address] [place] [address] Medicine 12th [place] [address] [place] [address] Kath Shepherd MD 10/25/2024 Telephone [facility] [address] [place] [address] Medicine 12th [place] [address] Jeannine Newman, TEDDY Med Management ([facility] PAP for 2024) 10/21/2024 10:58 AM PLATING 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 Anesthesia Event [facility] Digestive Disease [address] [address] Danyell Maher MD 10/21/2024 10:30 AM PLATING 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 - 10/21/2024 11:15 AM PLATING 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 Surgery [facility] [address] [address] Kath Shepherd MD COLON BIOPSY 10/21/2024 9:15 AM PLATING 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 - 10/21/2024 12:33 PM PLATING 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 Hospital Encounter [facility] [address] [address] Kath Shepherd MD Crohn's disease of both small and large intestine with other complication (HCC) Discharge Disposition: Discharge to home or self care 10/20/2024 Telephone [facility] Primary Care at [address] [phone] Preethi Godoy NP Medical Question/Miscellaneous 10/14/2024 Telephone [facility] Specialty Services [address] [place] [phone] Stacey Crane, RN 10/14/2024 Telephone [facility] Specialty Services [address] [place] [phone] Stacey Crane, RN 10/14/2024 Telephone [facility] Specialty Services [address] [place] [phone] Stacey Crane, RN GI PROCEDURE 7 DAY PRE CALL 09/08/2024 1:00 PM PLATING 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 Office Visit [facility] Cardiology [address] [address] [address] [place] [address] Madai Enrique NP Coronary artery disease involving coronary bypass graft of [place] heart, unspecified whether angina present (Primary Dx); Fatigue, unspecified type; Hypotension, unspecified hypotension type; Persistent atrial fibrillation (HCC); Nonrheumatic mitral valve regurgitation 09/08/2024 Telephone [facility] Gastroenterology [facility] 12th [place] [address] [place] [address] Winifred Rodriges RMA GI pre-procedural assessment 09/01/2024 9:00 AM PLATING 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 Office Visit [facility] Vascular at [address] [place] [address] Shimon Schofield MD Peripheral artery disease (Primary Dx); Hypercholesterolemia; Coronary artery disease involving coronary bypass graft of [place] heart without angina pectoris 09/01/2024 Orders Only [facility] Vascular at [address] [place] [address] Shimon Schofield MD Atherosclerosis of [place] artery of both lower extremities with intermittent claudication (Primary Dx) 09/01/2024 Telephone [facility] Primary Care at [address] [phone] Preethi Godoy NP Test Results (Urin culture); Call Back 08/30/2024 2:33 PM PLATING 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 - 08/30/2024 11:59 PM PLATING 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 Hospital Encounter [facility] Imaging [address] [address] SMITH, [place]RIS [address] Mer Lynn RN BPH with obstruction/lower urinary tract symptoms Discharge Disposition: Discharge to home or self care 08/30/[address] [facility] Imaging [address] Idania SMITH, [place] [address] Robyn Blanco RN 08/30/2024 Telephone [facility] Primary Care at [address] [phone] Preethi Godoy NP Medical Question/Miscellaneous 08/30/2024 Orders Only [facility] Primary Care at [address] [phone] Preethi Godoy, DONALD from Last 3 Months Immunizations Immunization Administration [...] Neg Hx Relation Name Status Comments Father NH & CVA () age 76 Mother Sister [...] on file 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 2:24 AM PLATING 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 Gender Identity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 Sexual Orientation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 [employer]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 Obstetrics History Last Filed Vital Signs Vital Sign Reading Time Taken Comments Blood Pressure 120/60 11/23/2024 12:30 PM PLATING 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 Pulse 80 11/23/2024 12:30 PM PLATING 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 Temperature 36.4 C (97.5 F) 11/23/2024 12:30 PM PLATING 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 Respiratory Rate 20 11/14/2024 10:16 AM PLATING 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 Oxygen Saturation 99% 11/14/2024 10:16 AM PLATING 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 Inhaled Oxygen Concentration - - Weight 64 kg (141 lb) 11/23/2024 12:30 PM PLATING 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 Height 177.8 cm (5' 10 ) 11/23/2024 12:30 PM PLATING 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 Body Mass Index 20.23 11/23/2024 12:30 PM PLATING 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 Plan of Treatment Health Maintenance Due Date [...] Screening Discontinued Medical Devices Implanted Type Area Medical Support Assistant Device Identifier Shelf Expiration Date Model / Serial / Lot [employer] [id number] Synergy 3.5mm 24mm 144cm Radiopaque 1 Access Port Inflation Lumen - [id number] - [id number] Implanted:Qty: 1 on 03/26/2019 by Alban Santana MD at [facility] [employer]ent [employer] 12/09/2020 [id number] / [id number] / [id number] Procedures Procedure Name Priority Date/Time Associated Diagnosis Comments XR CHEST PA LATERAL 2 VIEWS Schedule Routine, Read Routine (OP Routine) 11/23/2024 1:30 PM PLATING 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 Pneumonia due to infectious organism, unspecified laterality, unspecified part of lung EGFR Routine 11/23/2024 1:22 PM PLATING 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 Benign hypertension with stage 3a chronic kidney disease (HCC) DIFFERENTIAL AUTO Routine 11/23/2024 1:2 2 PM PLATING 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 Iron deficiency anemia due to chronic blood loss Benign hypertension with stage 3a chronic kidney disease (HCC) CBC WITH AUTO DIFFERENTIAL Routine 11/23/2024 1:22 PM PLATING 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 Iron deficiency anemia due to chronic blood loss Benign hypertension with stage 3a chronic kidney disease (HCC) IRON Routine 11/23/2024 1:22 PM PLATING 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 Iron deficiency anemia due to chronic blood loss BASIC METABOLIC PANEL Routine 11/23/2024 1:22 PM PLATING 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 Benign hypertension with stage 3a chronic kidney disease (HCC) XR CHEST PA LATERAL 2 VIEWS Schedule YULIANA, Read YULIANA (Appt Today, Awaiting Results) 11/16/2024 2:07 PM PLATING 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 Acute cough INFLUENZA A/B, RSV, AND COVID-19 PCR Routine 11/14/2024 11:00 AM PLATING 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 Acute cough POC INFLUENZA A/B, COVID-19 ANTIGEN Routine 11/14/2024 10:47 AM PLATING 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 Acute cough SURGICAL PATHOLOGY Routine 10/21/2024 11 :18 AM PLATING 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 Crohn's disease of both small and large intestine with other complication (HCC) COLON BIOPSY 10/21/2024 10:58 AM PLATING 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 Crohn's disease of both small and large intestine with other complication (HCC) COLONOSCOPY 10/21/2024 10:56 AM PLATING 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 HC EST VISIT LEVEL 4 Schedule Routine, Read Routine (OP Routine) 08/30/2024 3:44 PM PLATING 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 BPH with obstruction/lower urinary tract symptoms CTA [...] PA Lateral 2 Views (11/23/2024 1:30 PM PLATING 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) Anatomical Region Laterality Modality Body, Chest N/A Digital Radiogra phy 11/26/2024 2:09 PM PLATING 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 Narrative 11/26/2024 2:11 PM PLATING 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 EXAM DESCRIPTION: XR CHEST PA LATERAL 2 [...] bilateral pleural effusion with adjacent airspace opacities, kheyy-[id number]-djpv-left. Right mid chest linear density , linear [...] Buck Oleary D.O. AP T: Report ID: [id number] Reading Location: [place] [address] Procedure Note Buck Oleary, DO - 11/26/2024 [...] Small bilateral pleural effusionwith adjacent airspace opacities, [id number]-[id number]-left. Right mid chestlinear density , linear atelectasis [...] signed by Buck DOUGLAS T: Report ID: [id number] Reading Location: [place] [address] us Preethi Godoy NP IMG XR PROCEDURES Final Result * (ABNORMAL) eGFR (11/23/2024 1:22 PM PLATING 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) eGFR 34(L) >=60 mL/min/1. 73 m2 Comment: [...] last reviewed 2021. Blood 11/23/2024 1:22 PM PLATING 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 11/24/2024 11:14 AM PLATING 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 us Preethi Godoy NP LAB BLOOD ORDERABLES Final Resul t [facility] [id number] Department [place] [address] * (ABNORMAL) Differential, auto (11/23/2024 1:22 PM PLATING 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) Neutrophil abs 6.3 1.5 - 6.5 K/cumm Imm gran abs 0.0 0.0 - 0.1 K/cumm [facility] Lymphocyte abs 0.7(L) 0.8 - 3.3 K/cumm [facility] Monocyte abs 1.0(H) 0.2 - 0.8 K/cumm [facility] Eosinophil abs 0.2 0.0 - 0.5 K/cumm [facility] Basophil abs 0.1 0.0 - 0.1 K/cumm [facility] Neutrophil pct 75.6 % [facility] Comment: Interpretive Data Percent cell count reference ranges are not reported, since discordance with absolute values may lead to misinterpretation of CBC data. Current Interpretive Data was last revised on 2017. Imm gran pct 0.5 % [facility] Comment: Interpretive Data Percent cell count reference ranges are not reported, since discordance with absolute values may lead to misinterpretation of CBC data. Current Interpretive Data was last revised on 2017. Lymphocyte pct 8.8 % [facility] Comment: Interpretive Data Percent cell count reference ranges are not reported, since discordance with absolute values may lead to misinterpretation of CBC data. Current Interpretive Data was last revised on 2017. Monocyte pct 11.6 % [facility] Comment: Interpretive Data Percent cell count reference ranges are not reported, since discordance with absolute values may lead to misinterpretation of CBC data. Current Interpretive Data was last revised on 2017. Eosinophil pct 2.9 % [facility] Comment: Interpretive Data Percent cell count reference ranges are not reported, since discordance with absolute values may lead to misinterpretation of CBC data. Current Interpretive Data was last revised on 2017. Basophil pct 0.6 % [facility] Comment: Interpretive Data Percent cell count reference ranges are not reported, since discordance with absolute values may lead to misinterpretation of CBC data. Current Interpretive Data was last revised on 2017. Blood 11/23/2024 1:22 PM PLATING 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 11/24/2024 11:08 AM PLATING 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 us Preethi Godoy MENTAL HEALTH TECH LAB BLOOD ORDERABLES Final Resul t Performing Organization Address [facility] Co de Phone Number [facility] [address] [place] [address] * (ABNORMAL) CBC with auto differential (11/23/2024 1:22 PM PLATING 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) WBC 8.4 3.8 - 9.9 K/cumm Hgb 9.7(L) 13.0 - 17.5 g/dL [facility] Hct 31.3(L) 38.9 - 50.3 % [facility] Plt 179 150 - 400 K/cumm [facility] MPV 10.2 9.1 - 12.3 fL [facility] RBC 3.12(L) 4.30 - 5.80 M/cumm [facility] MCV 100.3(H) 81.3 - 96.4 fL [facility] MCH 31.1 27.1 - 33.3 pg [facility] MCHC 31.0(L) 32.3 - 35.7 g/dL [facility] RDW CV 17.2(H) 11.1 - 14.9 % [facility] RDW SD 64.2(H) 35.7 - 48.1 fL [facility] NRBC abs 0.00 0.00 - 0.01 K/cumm [facility] Blood 11/23/2024 1:22 PM PLATING 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 11/24/2024 11:08 AM PLATING 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 us Preethi Godoy MENTAL HEALTH TECH LAB BLOOD ORDERABLES Final Resul t Performing Organization Address City/[facility]/ZIP Co de Phone Number [facility] [place] [address] [place] [address] * (ABNORMAL) Iron level (11/23/2024 1:22 PM PLATING 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) Iron 47(L) 50 - 150 mcg/dl Blood 11/23/2024 1:22 PM PLATING 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 11/24/2024 11:08 AM PLATING 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 us Preethi Godoy NP LAB BLOOD ORDERABLES Final Resul t [facility] [place] [address] Department [place] [address] * (ABNORMAL) Basic metabolic panel (11/23/2024 1:22 PM PLATING 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) Sodium 141 135 - 145 mmol/L Potassium, pl 3.6 3.3 - 4.9 mmol/L [facility] Chloride 109 97 - 110 mmol/L [facility] CO2 21(L) 22 - 32 mmol/L [facility] Anion gap 11 2 - 15 mmol/L [facility] BUN 18 6 - 25 mg/dL [facility] Creatinine 1.97(H) 0.80 - 1.30 mg/dL [facility] Glucose 75 70 - 199 mg/dL [facility] Comment: Interpretive Data Fasting glucose >/= 126 [...] 2022. Calcium 8.1(L) 8.5 - 10.3 mg/dL [facility] Blood 11/23/2024 1:22 PM PLATING 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 11/24/2024 11:08 AM PLATING 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 us Preethi Godoy NP LAB BLOOD ORDERABLES Final Resul t TRAVIS BROWNLEE [address] Department [place] [address] * XR Chest Pa Lateral 2 Views (11/16/2024 2:07 PM PLATING 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) Anatomical Region Laterality Modality Body, Chest N/A Digital Radiogra phy 11/16/2024 3:45 PM PLATING 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 Narrative 11/16/2024 3:51 PM PLATING 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 EXAM DESCRIPTION: XR CHEST PA LATERAL 2 [...] Jeffery Dawkins M.D. MJ T: Report ID: [id number] Reading Location: [id number] Procedure Note Jeffery Dawkins MD - 11/16/2024 [...] - Electronically signed by Jeffery Dawkins M.D. T: Report ID: [id number] Reading Location: [place] [address] Mandy Hernandez [place] IMG XR PROCEDURES Final Result * (ABNORMAL) Influenza A/B, RSV, and COVID-19 PCR Nasopharyngeal (11/14/2024 11:00 AM PLATING 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) Pathologist [facility] COVID-19 RNA Negative Negative Influenza A RNA Negative Negative [facility] Influenza B RNA Negative Negative [facility] RSV RNA Positive(A) Negative [facility] Comment: Interpretive data: Testing performed by [facility]. This test is performed using the [employer] Xpert Xpress CoV-2/Flu/RSV plus assay. This is a multiplex, real-time reverse transcriptase PCR assay intended for the qualitative detection of nucleic acid from SARS-CoV-2, influenza A, influenza B, and respiratory syncytial virus. This assay has been cleared by the [place] Food and Drug administration. The performance characteristics have been verified by the [facility]. Results must be considered in the clinical context, and a negative result does not rule out infection. Interpretive Data last revised 2023 Nasopharyngeal 11/14/2024 11 :00 AM PLATING 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 11/14/2024 2:41 PM PLATING 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 Narrative TRAVIS BROWNLEE - 11/14/2024 3:32 PM PLATING 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 Is the Patient experiencing symptoms consistent with COVID?->Yes Mandy TOWNSEND LAB MICROBIOLOGY - GENER AL ORDERABLES Final Result Performing Organization Address City/[facility] Co de Phone Number TRAVIS [address] Department [place] [address] * POC Influenza A/B, COVID-19 antigen (11/14/2024 10:47 AM PLATING 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) Influenza A Ag, POC Negative Negative [facility] Influenza B Ag, POC Negative Negative [facility] COVID-19 Ag POC Presumptive Negative Presumptive Negative, Invalid [facility] Nasal 11/14/2024 10:4 7 AM PLATING 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 Mandy TOWNSEND POINT OF CARE TEST ORDER MANJINDER Final Result Performing Organization Address [facility] de Phone Number [facility] [address] [place] [address] * Surgical pathology (10/21/2024 11:18 AM PLATING 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) Tissue (Ileum, Biopsy) 10/21/2024 11:18 AM PLATING 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 Tissue (Colon, Biopsy) 10/21/2024 11:31 AM PLATING 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 Narrative PATHOLOGY BJ - 10/22/2024 11:22 AM PLATING 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 EPIC results best viewed via link to PDF [facility] Ambreen Bello [facility] of [place] [address] Note to Patients: This report may contain [...] REPORT FINAL Patient Name: AZIZA LOYA Gender: Rowan : 1945 (Age: 79) Address: [address] [place] [id number] [facility] #: [id number] Taken:10/21/2024 Received:10/21/2024 Reported: 10/22/2024 Patient Type: [facility] Service: Gastro Location: Physician(s): Edmund Waterman F.N.P. [...] cm in aggregate. Labeled B1. Jar 0. st/10/21/2024 15:07 PA(s): Aye Brito By this signature, I attest that the above diagnosis is based upon my personal examination of the slides(and/or other material). Addenda/Procedures The performance characteristics of some immunohistochemical stains, fluorescence in-situ hybridization tests and immunophenotyping by flow cytometry cited in this report (if any) were determined by the Surgical Pathology and Flow Cytometry Departments at [facility] as part of an ongoing quality improvement specialist program and in compliance with federally mandated [...] Surgical Pathology and Flow Cytometry Departments of [facility]. It has not been cleared or approved by the U. S. Food and Drug Administration. IMAGES AND SCANNED DOCUMENTS, IF INCLUDED, ONLY VIEWABLE IN PDF VERSION OF REPORT Kath Shepherd MD LAB PATHOLOGY ORDERABLES Laly l Result PATHOLOGY [facility] 3rd Floor [place], [place] [phone] * Colonoscopy (10/21/2024 10:56 AM PLATING 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) Anatomical Region Laterality Modality Other Narrative Procedure Note Kath Shepherd MD - 10/21/2024 10:56 AM CST GI ENDOSCOPY [facility] Patient Name: Aziza Loya Procedure Date: 10/21/2024 10:56 AM Date of : 1945 Admit Type: Outpatient Age: 79 Gender: Male Attending MD: Kath Shepherd M.D. Room: [facility] ENDOSCOPY ROOM 3 Note [...] The scope was passed under direct vision.The [facility] [id number] endoscope was introducedthrough the anus and [...] to Interventional Radiology (Community) (08/30/2024 3:44 PM PLATING 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) Anatomical Region Laterality Modality N/A X-Ray Angiograph y 08/30/2024 3:47 PM PLATING 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 Impressions 08/30/2024 3:47 PM PLATING 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 Patient has history of prior prostate surgery, and he is not a good candidate for PAE. Complete details regarding this office visit can be found in [facility] under the Notes tab. Electronically signed by: Phan Hudson M.D. [facility] 08/30/2024 3:47 PM PLATING 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 EXAMINATION: [facility] INTERVENTIONAL RADIOLOGY CLINIC VISIT HISTORY: 79-year-old male patient with lower urinary tract symptoms, ears for evaluation for prostatic artery embolization. Procedure Note Phan Hudson MD - 08/30/2024 EXAMINATION: [facility] INTERVENTIONAL RADIOLOGY CLINIC VISIT HISTORY: 79-year-old male [...] 1:43 PM - Electronically signed by Steven RJAPUT T: Report ID: [id number] Reading Location: [place] [address] Procedure Note Steven Ruano MD - 02/24/2024 [...] signed by Steven RAJPUT T: Report ID: [id number] Reading Location: [place] [address] PROCEDURES Final Res ult * Hepatitis [...] MICROBIOLOGY - GEN ERAL ORDERABLES Final Result [facility] [id number] Department [place] [address] from Last 3 Months or Most Recently Relevant to Health Maintenance Insurance [facility] MEDICARE MEDICARE [facility] MEDICARE [facility] MEDICARE [facility] MEDICARE [facility] Advance Directives For more information, please contact: [phone] * Full Code (Latest Code Status on [...] 10:45 AM 05/17/2022 5:55 PM Care Teams Army Helicopter Pilot Relationship Specialty Start Date End Date Preethi Godoy NP [address] [address] PCP - General Family Medicine 08/25/24 Kath Shepherd MD [address] [place] [address] Consulting Physician Gastroenterology 07/22/19 Peter Ya MD [address] [place] [address] Nematology Teacher Cardiology 07/22/19 Aziza Ledesma MD [address] [place] [address] Consulting Physician Neurology 07/22/19 Joshua Butterfield MD [address] [facility] [address] [place] [address] Consulting Physician Urology 07/03/23 Jeffery Bustillos MD [address] [facility] [address] [place] [address] Consulting Physician Cardiovascular Disease 02/06/24 Shimon Schofield MD [address] [facility] 120 [place] [address] Consulting Physician Vascular Surgery 02/06/24
--- OUTSIDE RECORDS SUMMARY | 2024-11-28 06:13 | XMS_ITS | Encounter Summary ---
Author Organization [facility] Address [address] [place] [address] Phone Care Team Providers Care Composition Professor Name Role Phone John Kimbrough MD Primary Care Provider [phone] Kath Shepherd MD Unavailable [phone] Peter Ya MD Unavailable [phone] Vitaly Ledesma MD Unavailable [phone] Anayeli Lee MD Primary Care Provider Joshua Butterfield MD Unavailable [phone] Jeffery Bustillos MD Unavailable [phone] Shimon Schofield MD Unavailable Preethi Godoy NP Primary Care Provider [phone] Encounter Details Date Type Department Care Team (Late st Contact Info) Description 01/13/[address] [facility] ProviderOlive MD [address] [place] [address] Social History Tobacco Use Types Packs/Day Years Used Date Smoking Tobacco: Never Smokeless Tobacco: Never Alcohol Use Standard Drinks/Week Comments No 0 (1 standard drink = 0.6 oz pur e alcohol) Sex and Gender Information Value Date Recorded Sex Assigned at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 2:24 AM PHOTOCOPYING EQUIPMENT MECHANIC Gender Identity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 Sexual Orientation [...] COVID: Suspected 08/21/2021 08/21/2021 08/21/2021 11:38 AM PHOTOCOPYING EQUIPMENT MECHANIC COVID: Suspected 11/14/2024 11/14/2024 11/14/2024 10:49 AM PHOTOCOPYING EQUIPMENT MECHANIC COVID: Suspected 11/14/2024 11/14/2024 11/14/2024 3:33 PM PHOTOCOPYING EQUIPMENT MECHANIC RSV, droplet 11/14/2024 11/14/2024 11/21/2024 3:07 AM PHOTOCOPYING EQUIPMENT MECHANIC documented as of this encounter Care Teams Composition Professor Relationship Specialty Start Date End Date John Kimbrough MD [address] [facility] [address] [place] [address] PCP - General 11/08/16 07/02/23 Anayeli Lee MD [address] [place] [address] PCP - General Family Medicine 07/03/23 08/24/24 Preethi Godoy NP [address] [address] PCP - General Family Medicine 08/25/24 Kath Shepherd MD [address] [place] [address] Consulting Physician Gastroenterology 07/22/19 Peter Ya MD [address] [place] [address] Home Appliance Installer Cardiology 07/22/19 Vitaly Ledesma MD [address] [place] [address] Consulting Physician Neurology 07/22/19 Joshua Butterfield MD [address] [facility] [address] [place] [address] Consulting Physician Urology 07/03/23 Jeffery Bustillos MD [address] [facility] [address] [place] [address] Consulting Physician Cardiovascular Disease 02/06/24 Shimon Schofield MD [address] [address] Consulting Physician Vascular Surgery 02/06/24 documented as of this encounter
--- OUTSIDE RECORDS SUMMARY | 2024-11-28 06:13 | XMS_ITS | Encounter Summary ---
Author Organization [facility] Address [address] [place] [address] Phone Care Team Providers Care Print And Pattern Designer Name Role Phone John Kimbrough MD Primary Care Provider [phone] Kath Shepherd MD Unavailable [phone] Peter Ya MD Unavailable [phone] Vitaly Ledesma MD Unavailable [phone] Anayeli Lee MD Primary Care Provider Joshua Butterfield MD Unavailable [phone] Jeffery Bustillos MD Unavailable [phone] Shimon Schofield MD Unavailable Preethi Godoy NP Primary Care Provider [phone] Encounter Details Date Type Department Care Team [...] on file 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 2:24 AM POLICE SERGEANT Gender Identity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 Sexual Orientation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 Start 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 Job End 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 [employer]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 Not [...] COVID: Suspected 08/21/2021 08/21/2021 08/21/2021 11:38 AM POLICE SERGEANT COVID: Suspected 11/14/2024 11/14/2024 11/14/2024 10:49 AM POLICE SERGEANT COVID: Suspected 11/14/2024 11/14/2024 11/14/2024 3:33 PM POLICE SERGEANT RSV, droplet 11/14/2024 11/14/2024 11/21/2024 3:07 AM POLICE SERGEANT documented as of this encounter Care Teams Print And Pattern Designer Relationship Specialty Start Date End Date John Kimbrough MD [address] [facility] [address] [place] [address] PCP - General 11/08/16 07/02/23 Anayeli Lee MD [address] [place] [address] PCP - General Family Medicine 07/03/23 08/24/24 Preethi Godoy NP [address] [facility] 130 [place] [address] PCP - General Family Medicine 08/25/24 Kath Shepherd MD [address] [place] [address] Consulting Physician Gastroenterology 07/22/19 Peter Ya MD [address] [place] [address] Lubrication Worker Cardiology 07/22/19 Vitaly Ledesma MD [address] [place] [address] Consulting Physician Neurology 07/22/19 Joshua Butterfield MD [address] [facility] 200 [place] [address] Consulting Physician Urology 07/03/23 Jeffery Bustillos MD 68[address] [facility] 162 [facility] 102 [place] [address] Consulting Physician Cardiovascular Disease 02/06/24 Shimon Schofield MD [address] [address] Consulting Physician Vascular Surgery 02/06/24 documented as of this encounter
--- OUTSIDE RECORDS SUMMARY | 2024-11-28 06:13 | XMS_ITS | Encounter Summary ---
Author Organization [facility] Address [address] [place] [address] Care Team Providers Care Rig Superintendent Name Role Phone Kath Shepherd MD Unavailable [phone] Peter Ya MD Unavailable [phone] Vitaly Ledesma MD Unavailable [phone] Joshua Butterfield MD Unavailable [phone] Jeffery Bustillos MD Unavailable [phone] Shimon Schofield MD Unavailable Preethi Godoy NP Primary Care Provider [phone] Encounter Details Date Type Department Care Team (Late st Contact Info) Description 11/26/2024 Orders Only [facility] Primary Care at [address] [address] Preethi Godoy NP [address] [place] [address] [address] [place] [address] Social History Tobacco Use Types [...] on file 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 2:24 AM ANALYST COMPETITIVE INTELLIGENCE Gender Identity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 Sexual Orientation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 [employer]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 documented as of this encounter Ordered Prescriptions Prescription Sig Dispense Quantity Refills Last Filled Start Date End Date moxifloxacin (AVELOX) 400 mg tablet Take 1 tablet (400 mg total) by mouth daily for 5 days 5 tablet 11/26/2024 12/01/2024 documented in this encounter Plan of Treatment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 documented as of this encounter Visit Diagnoses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documented in this encounter Discontinued Medications Medication Sig Discontinue Reason Start Date End Da te levoFLOXacin (LEVAQUIN) 250 mg tablet Take 2 tablets (500 mg total) by mouth daily for 1 day, THEN 1 tablet (250 mg total) daily for 6 days. Alternate therapy 11/26/2024 11/26/2024 documented as of this encounter Care Teams Rig Superintendent Relationship Specialty Start Date End Date Preethi Godoy NP [address] [facility] [address] [place] [address] PCP - General Family Medicine 08/25/24 Kath Shepherd MD [address] [place] [address] Consulting Physician Gastroenterology 07/22/19 Peter Ya MD [address] [place] [address] Liver Trimmer Cardiology 07/22/19 Vitaly Ledesma MD [address] [place] [address] Consulting Physician Neurology 07/22/19 Joshua Butterfield MD [address] [facility] [address] [place] [address] Consulting Physician Urology 07/03/23 Jeffery Bustillos MD [address] [facility] [address] [place] [address] Consulting Physician Cardiovascular Disease 02/06/24 Shimon Schofield MD [address] [facility] 120 [place] [address] Consulting Physician Vascular Surgery 02/06/24 documented as of this encounter
--- OUTSIDE RECORDS SUMMARY | 2024-11-28 06:13 | XMS_ITS | Continuity of Care Document ---
Author Name [facility] Organization [facility] Care Team Providers Care Neck Pinner Name Role Phone [facility] Unavailable Unavailable Encounters Combined list of: 1) Encounters from [facility] facilities going backup to the last 18 months, not all VA inpatient encounters are included; 2) Encounters from the Department of [facility] facilities going backup to 280 months. Location Location Details Encounter Type Encounter Number Reason For Visit Attending Provider ADM Date DC Date Status Disposition Source [facility] Outpatient Encounter [id number] 7 [facility]
--- OUTSIDE RECORDS SUMMARY | 2024-11-28 06:13 | XMS_ITS | Encounter Summary ---
Author Organization [facility] Address [address] [place] [address] Phone Care Team Providers Care Aerial Photogrammetrist Name Role Phone John Kimbrough MD Primary Care Provider [phone] Kath Shepherd MD Unavailable [phone] Peter Ya MD Unavailable [phone] Vitaly Ledesma MD Unavailable [phone] Anayeli Lee MD Primary Care Provider Joshua Butterfield MD Unavailable [phone] Jeffery Bustillos MD Unavailable [phone] Shimon Schofield MD Unavailable Preethi Godoy NP Primary Care Provider [phone] Encounter Details Date Type Department Care Team (Late st Contact Info) Description 08/21/2021 Telephone 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 [employer]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 documented as of this encounter Plan of Treatment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 documented as of this encounter Visit Diagnoses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documented in this encounter Additional Health Concerns Infection Onset Date Last Indicated Resolved Time COVID: Suspected 08/21/2021 08/21/2021 08/21/2021 11:38 AM BUSINESS ACCOUNT MANAGER COVID: Suspected 11/14/2024 11/14/2024 11/14/2024 10:49 AM BUSINESS ACCOUNT MANAGER COVID: Suspected 11/14/2024 11/14/2024 11/14/2024 3:33 PM BUSINESS ACCOUNT MANAGER RSV, droplet 11/14/2024 11/14/2024 11/21/2024 3:07 AM BUSINESS ACCOUNT MANAGER documented as of this encounter Care Teams Aerial Photogrammetrist Relationship Specialty Start Date End Date John Kimbrough MD [address] [facility] [address] [place] [address] PCP - General 11/08/16 07/02/23 Anayeli Lee MD [address] [place] [address] PCP - General Family Medicine 07/03/23 08/24/24 Preethi Godoy NP [address] [facility] [address] [place] [address] PCP - General Family Medicine 08/25/24 Kath Shepherd MD [address] [place] [address] Consulting Physician Gastroenterology 07/22/19 Peter Ya MD [address] [place] [address] Web Support Engineer Cardiology 07/22/19 Vitaly Ledesma MD [address] [place] [address] Consulting Physician Neurology 07/22/19 Joshua Butterfield MD [address] [facility] 200 [place] [address] Consulting Physician Urology 07/03/23 Jeffery Bustillos MD [address] [facility] 102 [place] [address] Consulting Physician Cardiovascular Disease 02/06/24 Shimon Schofield MD [address] [address] Consulting Physician Vascular Surgery 02/06/24 documented as of this encounter
--- OUTSIDE RECORDS SUMMARY | 2024-11-28 06:13 | XMS_ITS | Encounter Summary ---
Author Organization [facility] Address [address] [place] [address] Phone Care Team Providers Care Uke Operator Name Role Phone John Kimbrough MD Primary Care Provider [phone] Kath Shepherd MD Unavailable [phone] Peter Ya MD Unavailable [phone] Vitaly Ledesma MD Unavailable [phone] Anayeli Lee MD Primary Care Provider Joshua Butterfield MD Unavailable [phone] Jeffery Bustillos MD Unavailable [phone] Shimon Schofield MD Unavailable Preethi Godoy NP Primary Care Provider [phone] Encounter Details Date Type Department Care Team (Late st Contact Info) Description 02/03/2020 Telephone [facility] Gastroenterology [facility] 8th [place] [address] [place] [address] Sherie Yoo, [facility] Social History Tobacco Use Types Packs/Day Years Used Date Smoking Tobacco: Former Smokeless Tobacco: Never Alcohol Use Standard Drinks/Week Comments No 0 (1 standard drink = 0.6 oz pur e alcohol) Sex and Gender Information Value Date Recorded Sex Assigned at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 2:24 AM BANANA CARRIER Gender Identity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 Sexual Orientation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 documented as of this encounter Plan of Treatment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 documented as of this encounter Visit Diagnoses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documented in this encounter Additional Health Concerns Infection Onset Date Last Indicated Resolved Time COVID: Suspected 08/21/2021 08/21/2021 08/21/2021 11:38 AM BANANA CARRIER COVID: Suspected 11/14/2024 11/14/2024 11/14/2024 10:49 AM BANANA CARRIER COVID: Suspected 11/14/2024 11/14/2024 11/14/2024 3:33 PM BANANA CARRIER RSV, droplet 11/14/2024 11/14/2024 11/21/2024 3:07 AM BANANA CARRIER documented as of this encounter Care Teams Uke Operator Relationship Specialty Start Date End Date John Kimbrough MD [address] [facility] [address] [place] [address] PCP - General 11/08/16 07/02/23 Anayeli Lee MD [address] [place] [address] PCP - General Family Medicine 07/03/23 08/24/24 Preethi Godoy NP [address] [facility] [address] [place] [address] PCP - General Family Medicine 08/25/24 Kath Shepherd MD [address] [place] [address] Consulting Physician Gastroenterology 07/22/19 Peter Ya MD [address] [place] [address] Miniature Set Constructor Cardiology 07/22/19 Vitaly Ledesma MD [address] [place] [address] Consulting Physician Neurology 07/22/19 Joshua Butterfield MD [address] [facility] [address] [place] [address] Consulting Physician Urology 07/03/23 Jeffery Bustillos MD [address] [facility] [address] [facility] [address] [place] [address] Consulting Physician Cardiovascular Disease 02/06/24 Shimon Schofield MD [address] [address] Consulting Physician Vascular Surgery 02/06/24 documented as of this encounter
--- OUTSIDE RECORDS SUMMARY | 2024-11-28 06:13 | XMS_ITS | CONTINUITY OF CARE DOCUMENT ---
Author Name harshal caputo Address Unknown Organization [facility] Address [address] [facility] [address] [place] [address] Phone [phone] Care Team Providers Care Core Java Engineer Name Role Phone Yuko LARA, Mathew Unavailable [phone] NADIA KWON MD Unavailable NADIA KWON MD Unavailable PROBLEMS Condition Status Date Provider Notes PVD active Mathew Huntley MD HTN essential active Mathew Huntley MD CAD s/p CABG active Mathew Huntley MD ENCOUNTERS Date Type Provider Location Encounter Diag nosis - In-person encounter Office Visit Mathew Huntley MD [place] [facility] PVDHTN essentialCAD s/p CABG VITAL SIGNS [...] Payer name Policy type / Coverage type [place] red libertarian ID [employer] insurance company [id number] [place] [employer] Medicare [id number] ADVANCE DIRECTIVES Name Date DISCUSSED - NO [...] Name Provider Procedure Notes S tatus SNOMED-CT: 71586857 Physical Exam, Performed: Pulse Exam of Foot Mathew Huntley MD completed EKG Mathew Huntley MD completed SNOMED-CT: [id number] Current Medications Documented Mathew Huntley MD completed
--- OUTSIDE RECORDS SUMMARY | 2024-11-28 06:13 | XMS_ITS | Clinical Summary ---
Author Organization [facility] Address [address] [place] [address] Care Team Providers Care Operations Research Engineer Name Role Phone Unavailable Primary Care Provider [...]
--- NOTE | 2024-11-28 06:26 | ED_ITS ---
HPI - Weakness General Chief complaint: Weakness Stated complaint: worsening pneumonia, possible uti Time Seen by Provider: 11/28/24 06:19 Source: patient and family Mode of arrival: wheelchair Limitations: no limitations History of Present Illness HPI Narrative: This is a 79-year-old male, with history of Alzheimer's dementia, hypertension, frequent UTIs, who presents in the emergency department with this spouse with increasing generalized weakness and altered mental status overnight. Patient has bouts notes she was diagnosed with RSV after upper respiratory infection. Four days ago, he was re-evaluated and found to have pneumonia for which she was receiving antibiotics (moxifloxacin?). The patient's spouse states overnight, the patient appeared agitated and hallucinating. She denies any obvious abdominal pain, vomiting or parent nausea. The patient has no significant complaints. Related Data Home Medications ?Medication ?Instructions ?Recorded ?Confirmed ?Last Taken ?Type Lactobacillus 1 cap PO DAILY 11/08/23 11/28/24 07/07/24 09:00 History acidophilus-Bifidobac.animalis 2.5 billion cell capsule (Daily Probiotic) allopurinol 100 mg tablet 100 mg PO DAILY 11/08/23 11/28/24 07/07/24 09:00 History aspirin 81 mg tablet 81 mg PO DAILY 11/08/23 11/28/24 07/07/24 09:00 History atorvastatin 10 mg tablet 10 mg PO DAILY 11/08/23 11/28/24 07/07/24 09:00 History cilostazol 100 mg tablet 100 mg PO DAILY 11/08/23 11/28/24 07/07/24 09:00 History coenzyme Q10 200 mg capsule (Co 200 mg PO DAILY 11/08/23 11/28/24 07/07/24 09:00 History Q-10) escitalopram oxalate 20 mg tablet 20 mg PO DAILY 11/08/23 11/28/24 07/07/24 09:00 History multivit with minerals-iron 18 1 tablet PO DAILY 11/08/23 07/07/24 07/07/24 09:00 History mg-folic ac 400 mcg-vit K 25 mcg tablet (Adults Multivitamin) Folcaps Jackson-3 1 cap PO BID 05/12/24 11/28/24 07/07/24 09:00 History fluticasone propionate 50 1 spray intranasal DAILY 05/12/24 11/28/24 07/07/24 09:00 History mcg/actuation nasal spray,suspension furosemide 40 mg tablet 40 mg PO DAILY 05/12/24 11/28/24 07/07/24 09:00 History cyanocobalamin (vitamin B-12) 1,000 mcg IM MONTHLY 07/02/24 11/28/24 06/25/24 History 1,000 mcg/mL injection solution Allergies Allergy/AdvReac Type Severity Reaction Status Date / Time No Known Allergies Allergy Verified 11/28/24 08:04 Review of Systems 2 Review of Systems: All systems reviewed & are unremarkable except as noted in HPI and below PMFSH Past Medical History Medical History Dementia of the Alzheimer's type Intermittent self-catheterization of bladder Cardiomyopathy Recurrent incisional hernia Atrial fibrillation with RVR Heart failure Chronic anemia Vascular dementia Seizures B12 deficiency Depression Gout Osteoarthritis Iron deficiency anemia Benign prostatic hyperplasia Kidney stones Chronic kidney disease, stage 3 Crohn's disease Hyperlipidemia Hypertension Peripheral vascular disease Coronary artery disease Surgical History Surgical History S/P CABG (coronary artery bypass graft) History of bilateral cataract extraction History of lithotripsy History of partial colectomy X2 for to bowel obstructions and fistula secondary to Crohn's disease. History of cholecystectomy History of vascular surgery Bilateral lower extremity stents. History of coronary artery bypass graft Family History Family History Father Myocardial infarct Cerebrovascular accident Mother Breast cancer Sibling Crohn's disease Social History Social History Social History: Surrogate decision maker: Sarah Oreilly, spouse. Code status: Do not resuscitate. Smoking packs per day: 2 Smoking cigarettes per day: 40.0 Years smoked: 25 Smoking pack-years: 50.00 Smoking status: Former smoker Second hand tobacco smoke exposure: No Alcohol intake: never Substance use: never Substance use type: does not use Do You Feel Safe in your Home?: Yes Lack of Transportation: No Lack of Food: Never True Current Housing: I Have Housing Concerned About Future Housing: No Difficulty Paying Gas/Electric Bills: No Difficulty Paying for Meds: No Currently Unemployed: No Education: High School Diploma/GED Difficulty w/ Childcare or Family Care: No Additional living arrangements comments: The patient lives with his in [place]. Additional occupation/education comments: Retired from [employer]. Spiritual care concerns: No Exam 2 Narrative: GENERAL: Well-developed, well-nourished, and in no acute distress. HEAD: Normocephalic, atraumatic. EYES: PERRLA and EOMI. ENT: Nares clear, no rhinorrhea or epistaxis. Mucous membranes somewhat dry. Oropharynx without tonsillar hypertrophy exudate or other lesions. CHEST: Rales some rhonchi noted to the bilateral posterior, inferior lung price. Good aeration. No respiratory distress. No wheezes HEART: Regular rate and rhythm. No murmur heard. Normal peripheral pulses. ABDOMEN: Soft, nontender, nondistended, normal active bowel sounds. EXTREMITIES: Normal range of motion. No edema. SKIN: Warm, dry, no rash. NEURO: Alert and oriented x2. No focal deficit. Moving all 4 limbs spontaneously PSYCH: Normal mood and affect. Course Course Emergency Course: 06:50 - Chest x-ray demonstrates a right-sided pleural effusion and opacities in the left lower lung. CBC demonstrates white blood cells no count of 10.7 with hemoglobin of 8.8, decreased from the patient's baseline of 9.2. Platelets 149. There is a left shift. Will treat with cefepime and azithromycin. 07:00 - Patient signed out to oncoming ED physician, Dr. Ndiaye pending labs and imaging results with tentative plan for observation. Vital Signs Vital signs: Vital Signs Temperature 36.7 C 11/28/24 06:11 Pulse Rate 74 11/28/24 06:11 Respiratory Rate 18 11/28/24 06:11 Blood Pressure 121/70 11/28/24 06:11 Pulse Oximetry 95 11/28/24 06:11 Oxygen Delivery Room Air 11/28/24 06:11 Temperature 36.7 C 11/28/24 06:11 Pulse Rate 88 11/28/24 08:40 Respiratory Rate 22 H 11/28/24 08:40 Blood Pressure 126/83 11/28/24 08:40 Pulse Oximetry 97 11/28/24 08:40 Oxygen Delivery Room Air 11/28/24 06:11 MDM - Weakness MDM Narrative Medical decision making narrative: Plan: Imaging, labs, EKG, reassess Differential Diagnosis Differential diagnosis: Likely anemia, hypoglycemia, dehydration and other (COVID, pneumonia, metabolic abnormalities, uremia, influenza, RSV, UTI, other) Lab Data 11/28/24 06:33 11/28/24 06:33 Labs: Lab Results 11/28/24 11/28/24 Range/Units 06:33 07:19 WBC 10.7 H (4.5-10.0) K/mm3 RBC 2.85 L (4.6-6.20) M/mm3 Hgb 8.8 L (14.0-18.0) g/dL Hct 27.9 L (42.0-52.0) % MCV 97.9 (80-100) fl MCH 30.9 (26-34) pg MCHC 31.5 L (32-36) g/dl RDW 17.2 H (11.5-14.5) % Plt Count 149 L (150-375) k/mm3 MPV 9.7 (7.4-10.4) fl Immature Gran % (Auto) 0.5 (0-0.5) % Neut % (Auto) 80.6 H (45.5-73.1) % Lymph % (Auto) 6.7 L (18.3-44.2) % Sibley % (Auto) 9.3 H (2.6-8.5) % Eos % (Auto) 2.4 (0-4.4) % Baso % (Auto) 0.5 (0.2-1.2) % Lymph # (Auto) 0.72 L (0.9-3.2) K/mm3 Sibley # (Auto) 1.0 H (0.1-0.6) K/mm3 Eos # (Auto) 0.3 (0-0.3) K/mm3 Baso # (Auto) 0.1 (0.0-0.1) K/mm3 Abs Immat Gran (auto) 0.05 H (0.00-0.031) K/mm3 Absolute Neuts (auto) 8.6 H (1.3-6.7) K/mm3 Absolute Nucleated RBC 0.000 (0.0-0.012) K/mm3 Nucleated RBC % 0.0 (0.0-0.2) % PT 19.0 H (11.1-14.7) Seconds INR 1.6 APTT 43.2 H (22.3-36.8) Seconds Sodium 139 (137-145) mmol/L Potassium 4.0 (3.4-5.0) mmol/L Chloride 108 H (98-107) mmol/L Carbon Dioxide 21 L (22-30) mmol/L Anion Gap 10 (4-12) mmol/L BUN 18 (9-20) mg/dL Creatinine 1.94 H (0.7-1.3) mg/dL Estim Creat Clear Calc Not Reportable Estimated GFR 34 L (59 - ) Glucose 95 (65-110) mg/dL Lactic Acid 0.7 (0.7-2.0) mmol/L Calcium 8.2 L (8.4-10.2) mg/dL Total Bilirubin 0.6 (0.2-1.3) mg/dL AST 27 (17-59) U/L ALT 31 (6-50) U/L Alkaline Phosphatase 89 (38-126) U/L C-Reactive Protein 5.2 H (<1.0) mg/dL Total Protein 7.0 (6.3-8.2) g/dL Albumin 3.2 L (3.5-5.1) g/dL Urine Color Yellow (Yellow) Urine Appearance Cloudy H (Clear) Urine pH 5.5 (5.0-9.0) Ur Specific [place] 1.018 (1.001-1.035) Urine Protein 1+ H (Negative) mg/dL Urine Glucose (UA) Negative (Negative) mg/dL Urine Ketones Negative (Negative) mg/dL Ur Blood (Man) 1+ H (Negative) Urine Nitrate Negative (Negative) Urine Bilirubin Negative (Negative) Urine Urobilinogen 0.2 (<2.0) mg/dL Add Ur Microanalysis Reviewed Leukocyte Esterase Rfl 1+ H (Negative) LUCIO/UL Urine RBC 6-10 H (0-2) /hpf Urine WBC 21-50 H (0-3) /hpf Ur Squamous Epith Cells Moderate (Few) /hpf Urine Bacteria None seen /hpf Urine Casts 6-10 Influenza A (RT-PCR) Negative (Negative) Influenza B (RT-PCR) Negative (Negative) RSV (RT-PCR) Negative (Negative) SARS-CoV-2 RNA (RT-PCR) Negative (Negative) ECG Data EKG #1: Attestation: I personally reviewed and interpreted this ECG as follows: ECG completion date: 11/28/24 ECG completion time: 06:23 Interpretation: AFib, rate 96, normal axis, no ST segment elevations or T-wave inversions concerning for ischemia, otherwise normal intervals with QTC of 419. Compared to EKG done in June 2024, PVCs have resolved. There are no other significant changes. Discharge Plan Discharge Clinical Impression: Anemia, Urinary tract infection, Acute confusion Patient Disposition: Still a Patient Condition: Stable Patient Language: Moldovan Prescriptions: No Action fluticasone propionate 50 mcg/actuation spray,suspension 1 spray INTRANASAL DAILY furosemide 40 mg tablet 40 mg PO DAILY Folcaps Jackson-3 1 cap PO BID cilostazol 100 mg tablet 100 mg PO DAILY atorvastatin 10 mg tablet 10 mg PO DAILY allopurinol 100 mg tablet 100 mg PO DAILY aspirin 81 mg Tablet 81 mg PO DAILY escitalopram oxalate 20 mg tablet 20 mg PO DAILY coenzyme Q10 [Co Q-10] 200 mg Capsule 200 mg PO DAILY Adults Multivitamin 18 mg iron-400 mcg-25 mcg Tablet 1 tablet PO DAILY Daily Probiotic 2.5 billion cell Capsule 1 cap PO DAILY cyanocobalamin (vitamin B-12) 1,000 mcg/mL solution 1,000 mcg IM MONTHLY metoprolol succinate 100 mg tablet extended release 24 hr 100 mg PO DAILY Qty: 30 0RF tamsulosin 0.4 mg Capsule 0.4 mg PO QAM Qty: 30 0RF levofloxacin 750 mg tablet 750 mg PO Q48H 7 Days Qty: 4 0RF Rx Instructions: Last dose was given yesterday. He will need his first dose of RX starting tomorrow. Then every other day until finished. donepezil [Aricept] 5 mg tablet 5 mg PO DAILY Qty: 90 3RF Rx Instructions: 5 mg daily morning for 1 month and then 10 mg daily to continue levetiracetam 750 mg tablet 750 mg PO Q12HR 30 Days Qty: 60 5RF memantine 10 mg tablet 10 mg PO BID Qty: 60 6RF Follow-up/Referrals: Jayne,Preethi Enciso APRN [Primary Care Provider] -
--- NOTE | 2024-11-28 06:31 | ECG_ITS ---
Test Date: 2024-11-28 06:23:28 Measurements Intervals Rover Rate: 96 P: 0 AL: 0 QRS: 62 QRSD: 93 T: 70 QT: 365 QTc: 463 Interpretive Statements ATRIAL FIBRILLATION ABNORMAL RHYTHM ECG Compared to ECG 07/07/2024 16:52:45 PVCS ARE NOT PRESENT Electronically Signed On 11-28-2024 08:02:38 CDT by Jeffery Bustillos M.D.
--- OUTSIDE RECORDS SUMMARY | 2024-11-28 06:34 | XMS_ITS | Continuity of Care Document ---
Author Name [facility] Organization [facility] Care Team Providers Care Inclusion Teacher Name Role Phone [facility] Unavailable Unavailable Encounters Combined list of: 1) Encounters from [facility] facilities going backup to the last 18 months, not all VA inpatient encounters are included; 2) Encounters from the Department of [facility] facilities going backup to 280 months. Location Location Details Encounter Type Encounter Number Reason For Visit Attending Provider ADM Date DC Date Status Disposition Source [facility] Outpatient Encounter [id number] 07[facility]27 [facility]
--- OUTSIDE RECORDS SUMMARY | 2024-11-28 06:34 | XMS_ITS | Encounter Summary ---
Author Organization [facility] Address [address] [place] [address] Care Team Providers Care Managed Care Nurse Name Role Phone Kath Shepherd MD Unavailable [phone] Peter Ya MD Unavailable [phone] Vitaly Ledesma MD Unavailable [phone] Joshua Butterfield MD Unavailable [phone] Jeffery Bustillos MD Unavailable [phone] Shimon Schofield MD Unavailable Preethi Godoy NP Primary Care Provider [phone] Encounter Details Date Type Department Care Team (Late st Contact Info) Description 11/26/2024 Orders Only [facility] Primary Care at [address] [address] Preethi Godoy NP [address] [place] [address] [address] [place] [address] Social History Tobacco Use Types [...] on file 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 Gender Identity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 Sexual Orientation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 [employer]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 Not [...] documented as of this encounter Care Teams Managed Care Nurse Relationship Specialty Start Date End Date Preethi Godoy NP [address] [facility] [address] [place] [address] PCP - General Family Medicine 08/25/24 Kath Shepherd MD [address] [place] [address] Consulting Physician Gastroenterology 07/22/19 Peter Ya MD [address] [place] [address] Patient Care Coordinator Cardiology 07/22/19 Vitaly Ledesma MD [address] [place] [address] Consulting Physician Neurology 07/22/19 Joshua Butterfield MD [address] [facility] [address] [place] [address] Consulting Physician Urology 07/03/23 Jeffery Bustillos MD [address] [facility] [address] [place] [address] Consulting Physician Cardiovascular Disease 02/06/24 Shimon Schofield MD [address] [facility] [address] [place] [address] Consulting Physician Vascular Surgery 02/06/24 documented as of this encounter
--- OUTSIDE RECORDS SUMMARY | 2024-11-28 06:34 | XMS_ITS | Encounter Summary ---
Author Organization [facility] Address [address] [place] [address] Phone Care Team Providers Care Research Asst Name Role Phone John Kimbrough MD Primary Care Provider [phone] Kath Shepherd MD Unavailable [phone] Petre Ya MD Unavailable [phone] Vitaly Ledesma MD Unavailable [phone] Anayeli Lee MD Primary Care Provider Joshua Butterfield MD Unavailable [phone] Jeffery Bustillos MD Unavailable [phone] Shimon Schofield MD Unavailable Preethi Godoy NP Primary Care Provider [phone] Encounter Details Date Type Department Care Team (Late st Contact Info) Description 08/21/2021 Telephone [facility] [address] [place] [phone] Maribel Shore CPhT Social History Tobacco Use [...] on file 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 Gender Identity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 Sexual Orientation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 [employer]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 documented as of this encounter Plan of Treatment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 documented as of this encounter Visit Diagnoses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documented in this encounter Additional Health Concerns Infection Onset Date Last Indicated Resolved Time COVID: Suspected 08/21/2021 08/21/2021 08/21/2021 11:38 AM HIGH SCHOOL FOREIGN LANGUAGE TUTOR COVID: Suspected 11/14/2024 11/14/2024 11/14/2024 10:49 AM HIGH SCHOOL FOREIGN LANGUAGE TUTOR COVID: Suspected 11/14/2024 11/14/2024 11/14/2024 3:33 PM HIGH SCHOOL FOREIGN LANGUAGE TUTOR RSV, droplet 11/14/2024 11/14/2024 11/21/2024 3:07 AM HIGH SCHOOL FOREIGN LANGUAGE TUTOR documented as of this encounter Care Teams Research Asst Relationship Specialty Start Date End Date John Kimbrough MD [address] [facility] [address] [place] [address] PCP - General 11/08/16 07/02/23 Anayeli Lee MD [address] [place] [address] PCP - General Family Medicine 07/03/23 08/24/24 Preethi Godoy NP [address] [facility] [address] [place] [address] PCP - General Family Medicine 08/25/24 Kath Shepherd MD [address] [place] [address] Consulting Physician Gastroenterology 07/22/19 Peter Ya MD [address] [place] [address] Studio Artist Cardiology 07/22/19 Vitaly Ledesma MD [address] [place] [address] Consulting Physician Neurology 07/22/19 Joshua Butterfield MD [address] [facility] [address] [place] [address] Consulting Physician Urology 07/03/23 Jeffery Bustillos MD [address] [facility] [address] [place] [address] Consulting Physician Cardiovascular Disease 02/06/24 Shimon Schofield MD [address] [address] Consulting Physician Vascular Surgery 02/06/24 documented as of this encounter
--- OUTSIDE RECORDS SUMMARY | 2024-11-28 06:34 | XMS_ITS | Encounter Summary ---
Author Organization [facility] Address [address] [place] [address] Care Team Providers Care Marketing Director Assisted Living Name Role Phone Kath Shepherd MD Unavailable [phone] Peter Ya MD Unavailable [phone] Vitaly Ledesma MD Unavailable [phone] Joshua Butterfield MD Unavailable [phone] Jeffery Bustillos MD Unavailable [phone] Shimon Schofield MD Unavailable Preethi Godoy NP Primary Care Provider [phone] Encounter Details Date Type Department Care Team (Late st Contact Info) Description 11/24/2024 Results Follow-Up [facility] Primary Care at [address] [address] Preethi Godoy NP [address] [place] [address] [address] [place] [address] Social History Tobacco Use Types [...] on file 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 Gender Identity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 Sexual Orientation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 [employer]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 documented as of this encounter Plan of Treatment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 documented as of this encounter Visit Diagnoses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documented in this encounter Care Teams Marketing Director Assisted Living Relationship Specialty Start Date End Date Preethi Godoy NP [address] [facility] [address] [place] [address] PCP - General Family Medicine 08/25/24 Kath Shepherd MD [address] [place] [address] Consulting Physician Gastroenterology 07/22/19 Peter Ya MD [address] [place] [address] Assistant Professor Of Philosophy Cardiology 07/22/19 Vitaly Ledesma MD [address] [place] [address] Consulting Physician Neurology 07/22/19 Joshua Butterfield MD [address] [place] [address] Consulting Physician Urology 07/03/23 Jeffery Bustillos MD [address] [facility] [address] [address] Consulting Physician Cardiovascular Disease 02/06/24 Shimon Schofield MD [address] [facility] [address] [place] [address] Consulting Physician Vascular Surgery 02/06/24 documented as of this encounter
--- OUTSIDE RECORDS SUMMARY | 2024-11-28 06:34 | XMS_ITS | Encounter Summary ---
Author Organization [facility] Address [address] [place] [address] Phone Care Team Providers Care Creative/Art Director Name Role Phone John Kimbrough MD Primary Care Provider [phone] Kath Shepherd MD Unavailable [phone] Peter Ya MD Unavailable [phone] Vitaly Ledesma MD Unavailable [phone] Anayeli Lee MD Primary Care Provider Joshua Butterfield MD Unavailable [phone] Jeffery Bustillos MD Unavailable [phone] Shimon Schofield MD Unavailable Preethi Godoy NP Primary Care Provider [phone] Encounter Details Date Type Department Care Team (Late st Contact Info) Description 01/13/2018 Orders Only [facility] ProviderOlive MD [address] [place] [address] Social History Tobacco Use Types Packs/Day Years Used Date Smoking Tobacco: Never Smokeless Tobacco: Never Alcohol Use Standard Drinks/Week Comments No 0 (1 standard drink = 0.6 oz pur e alcohol) Sex and Gender Information Value Date Recorded Sex Assigned at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 Gender Identity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 Sexual Orientation [...] COVID: Suspected 08/21/2021 08/21/2021 08/21/2021 11:38 AM BLINTZE ROLLER COVID: Suspected 11/14/2024 11/14/2024 11/14/2024 10:49 AM BLINTZE ROLLER COVID: Suspected 11/14/2024 11/14/2024 11/14/2024 3:33 PM BLINTZE ROLLER RSV, droplet 11/14/2024 11/14/2024 11/21/2024 3:07 AM BLINTZE ROLLER documented as of this encounter Care Teams Creative/Art Director Relationship Specialty Start Date End Date John Kimbrough MD [address] [facility] [address] [place] [address] PCP - General 11/08/16 07/02/23 Anayeli Lee MD [address] [place] [address] PCP - General Family Medicine 07/03/23 08/24/24 Preethi Godoy NP [address] [address] PCP - General Family Medicine 08/25/24 Kath Shepherd MD [address] [place] [address] Consulting Physician Gastroenterology 07/22/19 Peter Ya MD [address] [place] [address] Shelter Case Manager Cardiology 07/22/19 Vitaly Ledesma MD [address] [place] [address] Consulting Physician Neurology 07/22/19 Joshua Butterfield MD [address] [facility] [address] [place] [address] Consulting Physician Urology 07/03/23 Jeffery Bustillos MD [address] [facility] [address] [place] [address] Consulting Physician Cardiovascular Disease 02/06/24 Shimon Schofield MD [address] [address] Consulting Physician Vascular Surgery 02/06/24 documented as of this encounter
--- OUTSIDE RECORDS SUMMARY | 2024-11-28 06:34 | XMS_ITS | Encounter Summary ---
Author Organization [facility] Healthcare Address [address] [place] [address] Care Team Providers Care Registered Nurse Name Role Phone Kath Shepherd MD Unavailable [phone] Peter Ya MD Unavailable [phone] Vitaly Ledesma MD Unavailable [phone] Joshua Butterfield MD Unavailable [phone] Jeffery Bustillos MD Unavailable [phone] Shimon Schofield MD Unavailable Preethi Godoy NP Primary Care Provider Reason for Visit * Reason Onset Date Comments Medical Question/Miscellaneous 11/26/2024 Encounter Details Date Type Department Care Team (Late st Contact Info) Description 11/26/2024 Telephone [facility] Medical Group Primary Care at [address] [address] Preethi Godoy NP [address] [place] [address] [address] [place] [address] Medical Question/Miscellaneous Social History Tobacco [...] on file 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 Will get formal report. Called and spoke with pt's . Sending in Moxifloxacin instead of Levaquin(do not need to renally dose), inhaler also sent. Strict ER precautions given. NIC GARDENING TEACHER NIC GARDENING TEACHER NIC GARDENING TEACHER * Telephone Encounter - Haleigh Cook - 11/26/2024 4:27 PM CST Medical Question/Miscellaneous Caller???s Concern: Megan with [facility] Radiology asking for the Patient's STAT referral for CT Chest WO Contrast And a phone number for After hours reporting. BOB wade transferred Megan to the backline. Does message need to be routed? No NIC GARDENING TEACHER * Telephone Encounter - Kassie Crooks - 11/26/2024 3:56 PM CST Medical Question/Miscellaneous Caller???s Concern: They are asking for the orders for the Ct WO contrast and are asking them to besent [place]. brusher tried back line no answer 2x. Please fax to [phone] Does message need to be routed? Yes-Action Needed NIC GARDENING TEACHER documented in this encounter Plan of Treatment [...] documented as of this encounter Care Teams Registered Nurse Relationship Specialty Start Date End Date Preethi Godoy NP 2 [facility] [address] [place], [place] [id number] PCP - General Family Medicine 08/25/24 Kath Shepherd MD [address] [place] [address] Consulting Physician Gastroenterology 07/22/19 Peter Ya MD [address] [place] [address] Air Saw Operator Cardiology 07/22/19 Vitaly Ledesma MD [address] [place] [address] Consulting Physician Neurology 07/22/19 Joshua Butterfield MD [address] [place] [address] Consulting Physician Urology 07/03/23 Jeffery Bustillos MD [address] [facility] [address] [place] [address] Consulting Physician Cardiovascular Disease 02/06/24 Shimon Schofield MD [address] [address] Consulting Physician Vascular Surgery 02/06/24 documented as of this encounter
--- OUTSIDE RECORDS SUMMARY | 2024-11-28 06:34 | XMS_ITS | Encounter Summary ---
Author Organization [facility] Address [address] [place] [address] Care Team Providers Care Wood Processing Worker Name Role Phone John Kimbrough MD Primary Care Provider Kath Shepherd MD Unavailable [phone] Peter Ya MD Unavailable [phone] Vitaly Ledesma MD Unavailable [phone] Anayeli Lee MD Primary Care Provider Joshua Butterfield MD Unavailable [phone] Jeffery Bustillos MD Unavailable [phone] Shimon Schofield MD Unavailable Preethi Godoy NP Primary Care Provider [phone] Encounter Details Date Type Department Care Team (Late st Contact Info) Description 03/26/2019 Documentation [facility] [address] [place] [address] Kaykay Jason, TEDDY Social History Tobacco Use Types Packs/Day Years Used Date Smoking Tobacco: Former Smokeless Tobacco: Never Alcohol Use Standard Drinks/Week Comments No 0 (1 standard drink = 0.6 oz pur e alcohol) Sex and Gender Information Value Date Recorded Sex Assigned at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 2:24 AM BRICKLAYER SEWER Gender Identity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 Sexual Orientation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 documented as of this encounter Plan of Treatment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 documented as of this encounter Visit Diagnoses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documented in this encounter Additional Health Concerns Infection Onset Date Last Indicated Resolved Time COVID: Suspected 08/21/2021 08/21/2021 08/21/2021 11:38 AM BRICKLAYER SEWER COVID: Suspected 11/14/2024 11/14/2024 11/14/2024 10:49 AM BRICKLAYER SEWER COVID: Suspected 11/14/2024 11/14/2024 11/14/2024 3:33 PM BRICKLAYER SEWER RSV, droplet 11/14/2024 11/14/2024 11/21/2024 3:07 AM BRICKLAYER SEWER documented as of this encounter Care Teams Wood Processing Worker Relationship Specialty Start Date End Date oJhn Kimbrough MD [address] [facility] [address] [place] [address] PCP - General 11/08/16 07/02/23 Anayeli Lee MD [address] [place] [address] PCP - General Family Medicine 07/03/23 08/24/24 Preethi Godoy NP 2 [facility] [address] [place], [place] [address] PCP - General Family Medicine 08/25/24 Kath Shepherd MD [address] [place] [address] Consulting Physician Gastroenterology 07/22/19 Peter Ya MD [address] [place] [address] Consumer Services Advisor Cardiology 07/22/19 Vitaly Ledesma MD [address] [place] [address] Consulting Physician Neurology 07/22/19 Joshua Butterfield MD [address] [facility] [address] [place] [address] Consulting Physician Urology 07/03/23 Jeffery Bustillos MD [address] [facility] [address] [place] [address] Consulting Physician Cardiovascular Disease 02/06/24 Shimon Schofield MD [address] [facility] [address] [place] [address] Consulting Physician Vascular Surgery 02/06/24 documented as of this encounter
--- OUTSIDE RECORDS SUMMARY | 2024-11-28 06:34 | XMS_ITS | Encounter Summary ---
Author Organization [facility] Address [address] [place] [address] Phone Care Team Providers Care Tracer Bullet Charging Machine Operator Name Role Phone John Kimbrough MD Primary Care Provider [phone] Kath Shepherd MD Unavailable [phone] Peter Ya MD Unavailable [phone] Vitaly Ledesma MD Unavailable [phone] Anayeli Lee MD Primary Care Provider Joshua Butterfield MD Unavailable [phone] Jeffery Bustillos MD Unavailable [phone] Shimon Schofield MD Unavailable Preethi Godoy NP Primary Care Provider [phone] Encounter Details Date Type Department Care Team [...] on file 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 2:24 AM URBAN FORESTER Gender Identity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 Sexual Orientation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 [employer]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 Not [...] COVID: Suspected 08/21/2021 08/21/2021 08/21/2021 11:38 AM URBAN FORESTER COVID: Suspected 11/14/2024 11/14/2024 11/14/2024 10:49 AM URBAN FORESTER COVID: Suspected 11/14/2024 11/14/2024 11/14/2024 3:33 PM URBAN FORESTER RSV, droplet 11/14/2024 11/14/2024 11/21/2024 3:07 AM URBAN FORESTER documented as of this encounter Care Teams Tracer Bullet Charging Machine Operator Relationship Specialty Start Date End Date John Kimbrough MD [address] [facility] [address] [place] [address] PCP - General 11/08/16 07/02/23 Anayeli Lee MD [address] [place] [address] PCP - General Family Medicine 07/03/23 08/24/24 Preethi Godoy NP [address] [facility] 130 [place] [address] PCP - General Family Medicine 08/25/24 Kath Shepherd MD [address] [place] [address] Consulting Physician Gastroenterology 07/22/19 Peter Ya MD [address] [place] [address] Brand Planner Cardiology 07/22/19 Vitaly Ledesma MD [address] [place] [address] Consulting Physician Neurology 07/22/19 Joshua Butterfield MD [address] [facility] [address] [place] [address] Consulting Physician Urology 07/03/23 Jeffery Bustillos MD 68[address] [facility] 162 [facility] [address] [place] [address] Consulting Physician Cardiovascular Disease 02/06/24 Shimon Schofield MD [address] [address] Consulting Physician Vascular Surgery 02/06/24 documented as of this encounter
--- OUTSIDE RECORDS SUMMARY | 2024-11-28 06:34 | XMS_ITS | Encounter Summary ---
Author Organization [facility] Healthcare Address [address] [place] [address] Care Team Providers Care Radio Interference Expert Name Role Phone Kath Shepherd MD Unavailable [phone] Peter Ya MD Unavailable [phone] Vitaly Ledesma MD Unavailable [phone] Joshua Butterfield MD Unavailable [phone] Jeffery Bustillos MD Unavailable [phone] Shimon Schofield MD Unavailable Preethi Godoy NP Primary Care Provider [phone] Encounter Details Date Type Department Care Team (Late st Contact Info) Description 11/14/2024 Results Follow-Up [facility] Medical Group Convenient Care at [address] [address] Mandy Hernandez KRISTIAN [address] [place] [address] [address] [place] [address] Social History Tobacco Use Types [...] on file 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 2:24 AM BENCH WORKER APPRENTICE Gender Identity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 Sexual Orientation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 Start 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 [employer]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 documented as of this encounter Plan of Treatment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 documented as of this encounter Visit Diagnoses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documented in this encounter Additional Health Concerns Infection Onset Date Last Indicated Resolved Time COVID: Suspected 11/14/2024 11/14/2024 11/14/2024 10:49 AM BENCH WORKER APPRENTICE COVID: Suspected 11/14/2024 11/14/2024 11/14/2024 3:33 PM BENCH WORKER APPRENTICE RSV, droplet 11/14/2024 11/14/2024 11/21/2024 3:07 AM BENCH WORKER APPRENTICE documented as of this encounter Care Teams Radio Interference Expert Relationship Specialty Start Date End Date Preethi Godoy NP [address] [facility] [address] [place] [address] PCP - General Family Medicine 08/25/24 Kath Shepherd MD [address] [place] [address] Consulting Physician Gastroenterology 07/22/19 Peter Ya MD [address] [place] [address] Property Insurance Agent Cardiology 07/22/19 Vitaly Ledesma MD [address] [place] [address] Consulting Physician Neurology 07/22/19 Joshua Butterfield MD [address] [place] [address] [address] [place] [address] Consulting Physician Urology 07/03/23 Jeffery Bustillos MD [address] [place] [address] Consulting Physician Cardiovascular Disease 02/06/24 Shimon Schofield MD [address] [address] Consulting Physician Vascular Surgery 02/06/24 documented as of this encounter
--- OUTSIDE RECORDS SUMMARY | 2024-11-28 06:34 | XMS_ITS | CONTINUITY OF CARE DOCUMENT ---
Author Name harshal caputo Address Unknown Organization [facility] Address [address] [facility] [address] [place] [address] Phone [phone] Care Team Providers Care Maintenance Service Dispatcher Name Role Phone Yuko LARA, Mathew Unavailable [phone] NADIA KWON MD Unavailable NADIA KWON MD Unavailable PROBLEMS Condition Status Date Provider Notes PVD active Mathew Huntley MD HTN essential active Mathew Huntley MD CAD s/p CABG active Mathew Huntley MD ENCOUNTERS Date Type Provider Location Encounter Diag nosis - In-person encounter Office Visit Mathew Huntley MD [place] [facility] PVDHTN essentialCAD s/p CABG VITAL SIGNS [...] 1990 Sonia Babb s cigarette use yes Soina Jeffrey smoking status Former smoker Mathew Huntley [...] Payer name Policy type / Coverage type [place] red [employer] party ID A[id number] insurance company [id number] [place] [employer] Medicare [id number] ADVANCE DIRECTIVES Name Date DISCUSSED - NO [...] Name Provider Procedure Notes S tatus SNOMED-CT: [id number] Physical Exam, Performed: Pulse Exam of Foot Mathew Huntley MD completed EKG Mathew Huntley MD completed SNOMED-CT: [id number] Current Medications Documented Mathew Huntley MD completed
--- OUTSIDE RECORDS SUMMARY | 2024-11-28 06:34 | XMS_ITS | Clinical Summary ---
Author Organization [facility] Address [address] [place] [address] Care Team Providers Care Medical Record Assistant Name Role Phone Unavailable Primary Care Provider [...]
--- OUTSIDE RECORDS SUMMARY | 2024-11-28 06:34 | XMS_ITS | Encounter Summary ---
Author Organization [facility] Healthcare Address [address] [place] [address] Care Team Providers Care Key Account Director Name Role Phone Kath Shepherd MD Unavailable [phone] Peter Ya MD Unavailable [phone] Vitaly Ledesma MD Unavailable [phone] Joshua Butterfield MD Unavailable [phone] Jeffery Bustillos MD Unavailable [phone] Shimon Schofield MD Unavailable Preethi Godoy NP Primary Care Provider [phone] Reason for Referral * MRI/CAT/PET Scan (Routine) - Authorized Specialty Diagnoses / Procedures Referred By Contac t Referred To Contact Diagnoses Abnormal CXR Pneumonia of both lungs due to infectious organism, unspecified part of lung Cough, unspecified type Fever, unspecified fever cause Procedures CT Chest WO Contrast Preethi Godoy NP [address] [place] [address] Phone: tel: fax: [facility] [address] [facility] [address] [place] [address] Phone: tel: fax: Referral ID Status Reason Start Date Expiration Date V isits Requested Visits Authorized [id number] Authorized 11/26/2024 12/26/2025 1 1 EDICAL ENGINEERING DIRECTOR Reason for Visit * Reason Onset Date Comments Symptom Based Call 11/26/2024 Encounter Details Date Type Department Care Team (Late st Contact Info) Description 11/26/2024 Telephone [facility] Medical Group Primary Care at [address] [address] Preethi Godoy NP 2 [facility] [address] [place] [address] Symptom Based Call Social History [...] on file 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 2:24 AM BIOMEDICAL ENGINEERING DIRECTOR Gender Identity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 Sexual Orientation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 If symptoms worsen, ER. EDICAL ENGINEERING DIRECTOR * Telephone Encounter - Charline Goodman MA [...] message need to be routed? Yes-Action Needed EDICAL ENGINEERING DIRECTOR documented in this encounter Plan of Treatment [...] cause documented in this encounter Care Teams Key Account Director Relationship Specialty Start Date End Date Preethi Godoy NP [address] [facility] [address] [place] [address] PCP - General Family Medicine 08/25/24 Kath Shepherd MD [address] [place] [address] Consulting Physician Gastroenterology 07/22/19 Peter Ya MD [address] [place] [address] Retail Manager In Training Cardiology 07/22/19 Vitaly Ledesma MD [address] [place] [address] Consulting Physician Neurology 07/22/19 Joshua Butterfield MD [address] [facility] [address] [place] [address] Consulting Physician Urology 07/03/23 Jeffery Bustillos MD [address] [place] [address] [address] [place] [address] Consulting Physician Cardiovascular Disease 02/06/24 Shimon Schofield MD [address] [address] Consulting Physician Vascular Surgery 02/06/24 documented as of this encounter
--- OUTSIDE RECORDS SUMMARY | 2024-11-28 06:34 | XMS_ITS | Clinical Summary ---
Author Organization [facility] Address [address] [place] [address] Care Team Providers Care Roller [employer] 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 Name Role Phone Kath Shepherd MD Unavailable [phone] Peter Ya MD Unavailable [phone] Aziza Ledesma MD Unavailable [phone] Joshua Butterfield MD Unavailable [phone] Jeffery Bustillos MD Unavailable [phone] Shimon Schofield MD Unavailable Preethi Godoy NP Primary Care Provider [phone] Allergies No known active allergies Medications coenzyme Q10 10 mg capsule Take 2 capsules (20 mg total) by mouth every morning Active amtot-0-fqf-ep a-dpa-fish oil 1,050-1,200 mg capsule Take 1 [...] Route Frequency Start Date End Date Status [facility] BMS-716235/placebo ([id number]) capsule 4 capsuleIndications:Crohn' s disease of both small and large intestine with other complication (HCC) 4 capsule oral 2 times daily 05/21/2022 Active [facility] BMS-563215/placebo ([id number]) capsule 4 capsuleIndications:Crohn' s disease of both small and large intestine with other complication (HCC) 4 capsule oral 2 times daily 06/18/2022 Active [facility] BMS-413117/placebo ([id number]) capsule 4 capsuleIndications:Crohn' s disease of both small and large intestine with other complication (HCC) 4 capsule oral 2 times daily 07/09/2022 Active [facility] BMS-834093/placebo ([id number]) capsule 4 capsuleIndications:Crohn' s disease of both small and large intestine with other complication (HCC) 4 capsule oral 2 times daily 08/07/2022 Active [facility] BMS-701847/placebo ([id number]) capsule 4 capsuleIndications:Crohn' s disease of both small and large intestine with other complication (HCC) 4 capsule oral 2 times daily 09/19/2022 Active [facility] BMS-845565/placebo ([id number]) capsule 4 capsuleIndications:Crohn' s disease of both [...] modification Assessment & Plan (10/03/2023 1:12 PM STAFF WEAPONS OFFICER): Chronic. Due to prior peripheral arterial disease. [...] urologist Assessment & Plan (10/03/2023 1:12 PM STAFF WEAPONS OFFICER): Chronic. Continue medication care per Urology Assessment & Plan (07/03/2023 5:22 PM CDT): Follows with [facility] [place] Dr. Butterfield. Patient on finasteride and does intermittent straight catheterization Protein-calorie malnutrition, mild 07/03/2023 Overview (07/03/2023): Patient with low BMI. Less protein level was low. Monitor weight Assessment & Plan (02/06/2024 4:55 PM CDT): Patient has had borderline protein calorie malnutrition. Monitor his protein levels on labs. Encourage adequate nutrition. Avoid additional weight loss Assessment & Plan (10/03/2023 1:12 PM STAFF WEAPONS OFFICER): Chronic. BMI remains at the lower end arrange. Encouraged adequate nutrition. Monitor History of gout 07/03/2023 Assessment & Plan (02/06/2024 4:55 PM CDT): Chronic. Denies history of recent flares. Continue allopurinol for prophylaxis. Check uric acid Assessment & Plan (10/03/2023 1:12 PM STAFF WEAPONS OFFICER): Chronic. Denies any history of gout in [...] 03/14/2023 Assessment & Plan (10/03/2023 1:13 PM STAFF WEAPONS OFFICER): Chronic. May occasionally increase in size. Minimal pain. Has deferred elective repair in the past Persistent atrial fibrillation 12/04/2021 Assessment & Plan (11/23/2024 1:36 PM STAFF WEAPONS OFFICER): Rate controlled in office, continuing follow up with Cardiology. Assessment & Plan (03/01/2024 7:51 AM CDT): Stable continue metoprolol. Assessment & Plan (02/06/2024 4:55 PM CDT): Chronic. Controlled rate with metoprolol. Continue. Continue aspirin for stroke prophylaxis Assessment & Plan (10/03/2023 1:12 PM STAFF WEAPONS OFFICER): Chronic. Continue risk factor modification. Continue ASA [...] Monitor Assessment & Plan (10/03/2023 1:11 PM STAFF WEAPONS OFFICER): Chronic. Denies significant worsening. No agitation recently. [...] They denies significant agitation Cerebral amyloid angiopathy ([facility]) 02/15/2020 Assessment & Plan (02/06/2024 4:54 PM CDT): Chronic. Memory has worsened slightly in the last year. He does have some fluctuations at times. No real agitation. Target good blood pressure control. Continue aspirin for his other issues. Would be cautious with more aggressive anticoagulation given history of amyloid angiopathy Assessment & Plan (10/03/2023 1:11 PM STAFF WEAPONS OFFICER): Chronic. Denies any progression of symptoms Assessment & Plan (07/03/2023 5:18 PM CDT): Chronic. Control blood pressure and modify risk factors as able. Continue aspirin given AFib but would be cautious with stronger anticoagulants given increased bleeding risk with cerebral amyloid angiopathy Peripheral artery disease 09/10/2019 Overview (09/10/2019): Added automatically from request for surgery [id number] Assessment & Plan (09/03/2024 10:57 AM STAFF WEAPONS OFFICER): Stable lower extremity occlusive disease. Continue risk [...] duplex. Assessment & Plan (10/03/2023 1:11 PM STAFF WEAPONS OFFICER): Chronic. Denies recent claudication symptoms. Continue ASA, statin and Pletal Assessment & Plan (07/03/2023 5:22 PM CDT): Chronic. 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 Denies current sores on his feet. Follows with Podiatry in [place]. On cilostazol Iron deficiency anemia due to [...] 02/17/2019 Assessment & Plan (11/23/2024 1:35 PM STAFF WEAPONS OFFICER): BP normal in office, continuing current regimen. [...] dehydrate Assessment & Plan (10/03/2023 1:10 PM STAFF WEAPONS OFFICER): Chronic. Blood pressure controlled. Continue current prescription [...] continue Assessment & Plan (10/03/2023 1:10 PM STAFF WEAPONS OFFICER): Chronic. Symptomatically improved per patient. Continue medication and care per GI Assessment & Plan (07/03/2023 5:20 PM CDT): Chronic. Follows with Gastroenterology. On scar oz and sulfasalazine. Continue medication and care per them CAD (coronary artery disease) 12/04/2018 Assessment & Plan (09/03/2024 10:57 AM STAFF WEAPONS OFFICER): Stable continue ASA and Lasix Assessment & Plan (02/06/2024 4:51 PM CDT): Chronic. Denies chest pain. Continue risk factor modification with statin, aspirin, blood pressure control. Target LDL less than 70 Assessment & Plan (10/03/2023 1:10 PM STAFF WEAPONS OFFICER): Chronic. Denies chest pain. Follows with cardiology. [...] 12/30/2017 Assessment & Plan (08/25/2024 4:06 PM STAFF WEAPONS OFFICER): Updated labs ordered, Hemoglobin was 9 in [...] infusions Assessment & Plan (10/03/2023 1:10 PM STAFF WEAPONS OFFICER): Chronic. Follows with GI and Hematology. Has received iron infusions. Often does B12 injections Assessment & Plan (07/03/2023 5:15 PM CDT): Chronic. Follows with GI and Hematology. Received iron infusions Hypercholesterolemia 02/05/2011 Assessment & Plan (09/03/2024 10:57 AM STAFF WEAPONS OFFICER): Stable continue statin therapy. Assessment & Plan (03/01/2024 7:50 AM CDT): Stable continue statin therapy. Assessment & Plan (02/06/2024 4:53 PM CDT): Chronic. Tolerates atorvastatin. Continue. Check cholesterol level and adjust for an LDL goal of at least less than 70 with optimal less than 55 Assessment & Plan (10/03/2023 1:10 PM STAFF WEAPONS OFFICER): Chronic. Tolerates current prescription medication. Continue Assessment [...] (05/29/2021): Added automatically from request for surgery [id number] Crohn's disease with rectal bleeding 12/10/2018 07/03/2023 Overview (12/10/2018): Added automatically from request for surgery [id number] Peripheral vascular disease 02/13/2017 07/03/2023 Gastrointestinal hemorrhage 07/03/2023 Acute renal failure 07/03/20 23 Crohn's disease of colon with rectal bleeding 07/03/2023 Assessment & Plan (12/04/2021 1:34 PM CDT): Has upcoming endoscopy. Encounters Date Type Department Care Team Description 11/26/2024 Orders Only [facility] Primary Care at [address] [phone] Preethi Godoy, DONALD 11/26/2024 Telephone [facility] Primary Care at [address] [phone] Preethi Godoy, DONALD Medical Question/Miscellaneous 11/26/2024 Orders Only [facility] Primary Care at [address] [phone] Preethi Godoy CINDER DUMP CRANE OPERATOR 11/26/2024 Telephone [facility] Primary Care at [address] [phone] Preethi Godoy CINDER DUMP CRANE OPERATOR Symptom Based Call 11/24/2024 Results Follow-Up [facility] Primary Care at [address] [phone] Preethi Godoy CINDER DUMP CRANE OPERATOR 11/23/2024 1:30 PM STAFF WEAPONS OFFICER Lab [facility] Outpatient Lab at [address] [phone] Pneumonia due to infectious organism, unspecified laterality, unspecified part of lung (Primary Dx) 11/23/2024 1:30 PM STAFF WEAPONS OFFICER Ancillary Procedure [facility] Imaging at [address] [phone] Pneumonia due to infectious organism, unspecified laterality, unspecified part of lung 11/23/2024 1:22 PM STAFF WEAPONS OFFICER - 11/23/2024 11:59 PM STAFF WEAPONS OFFICER Hospital Encounter [address] [address] Benign hypertension with stage 3a chronic kidney disease (HCC); Iron deficiency anemia due to chronic blood loss Discharge Disposition: Discharge to home or self care 11/23/2024 12:30 PM STAFF WEAPONS OFFICER Office Visit [facility] Primary Care at [address] [phone] Preethi Godoy, CINDER DUMP CRANE OPERATOR Pneumonia due to infectious organism, unspecified laterality, unspecified part of lung (Primary Dx); Iron deficiency anemia due to chronic blood loss; Benign hypertension with stage 3a chronic kidney disease (HCC); Persistent atrial fibrillation (HCC) 11/16/2024 2:00 PM STAFF WEAPONS OFFICER Ancillary Procedure [facility] Imaging at [address] [phone] Acute cough 11/16/2024 Orders Only [facility] Convenient Care at [address] [phone] Trower, Gladys M., CINDER DUMP CRANE OPERATOR Lower respiratory infection (e.g., bronchitis, pneumonia, pneumonitis, pulmonitis) (Primary Dx) 11/14/2024 11:00 AM STAFF WEAPONS OFFICER - 11/14/2024 11:59 PM STAFF WEAPONS OFFICER Hospital Encounter [address] [address] Acute cough Discharge Disposition: Discharge to home or self care 11/14/2024 10:00 AM STAFF WEAPONS OFFICER Office Visit [facility] Convenient Care at [address] [phone] Mandy Hernandez PA Acute cough (Primary Dx) 11/14/2024 Results Follow-Up [facility] Convenient Care at [address] [phone] Mandy Hernandez PA 11/10/2024 Orders Only [facility] Primary Care at [address] [phone] Preethi Godoy NP 11/03/2024 Orders Only [facility] [address] [place] [address] Medicine 12th [place] [address] [place] [address] Kath Shepherd MD 10/25/2024 Telephone [facility] [address] [place] [address] Medicine 12th [place] [address] Jeannine Newman, TEDDY Med Management ([facility] PAP for 2024) 10/21/2024 10:58 AM STAFF WEAPONS OFFICER Anesthesia Event [facility] [address] [address] Danyell Maher MD 10/21/2024 10:30 AM STAFF WEAPONS OFFICER - 10/21/2024 11:15 AM STAFF WEAPONS OFFICER Surgery [facility] [address] [address] Kath Shepherd MD COLON BIOPSY 10/21/2024 9:15 AM STAFF WEAPONS OFFICER - 10/21/2024 12:33 PM STAFF WEAPONS OFFICER Hospital Encounter [facility] [address] [address] Kath Shepherd MD Crohn's disease of both small and large intestine with other complication (HCC) Discharge Disposition: Discharge to home or self care 10/20/2024 Telephone [facility] Primary Care at [address] [phone] Preethi Godoy NP Medical Question/Miscellaneous 10/14/2024 Telephone [facility] [address] [place] [phone] Stacey Crane, RN 10/14/2024 Telephone [facility] [address] [place] [phone] Stacey Crane, RN 10/14/2024 Telephone [facility] [address] [place] [phone] Stacey Crane, RN GI PROCEDURE 7 DAY PRE CALL 09/08/2024 1:00 PM STAFF WEAPONS OFFICER Office Visit [facility] Cardiology [address] [address] [address] [place] [address] Madai Enrique NP Coronary artery disease involving coronary bypass graft of [place] heart, unspecified whether angina present (Primary Dx); Fatigue, unspecified type; Hypotension, unspecified hypotension type; Persistent atrial fibrillation (HCC); Nonrheumatic mitral valve regurgitation 09/08/2024 Telephone [facility] 12th [place] [address] [place] [address] Winifred Rodriges RMA GI pre-procedural assessment 09/01/2024 9:00 AM STAFF WEAPONS OFFICER Office Visit [facility] Vascular at [address] [place] [address] Shimon Schofield MD Peripheral artery disease (Primary Dx); Hypercholesterolemia; Coronary artery disease involving coronary bypass graft of [place] heart without angina pectoris 09/01/2024 Orders Only [facility] Vascular at [address] [place] [address] Shimon Schofield MD Atherosclerosis of [place] artery of both lower extremities with intermittent claudication (Primary Dx) 09/01/2024 Telephone [facility] Primary Care at [address] [phone] Preethi Godoy NP Test Results (Urin culture); Call Back 08/30/2024 2:33 PM STAFF WEAPONS OFFICER - 08/30/2024 11:59 PM STAFF WEAPONS OFFICER Hospital Encounter [facility] [address] Idania SMITH, CHRIS [address] Mer Lynn RN BPH with obstruction/lower urinary tract symptoms Discharge Disposition: Discharge to home or self care 08/30/2024 Telephone [facility] [address] Idania SMITH, [place]RIS [address] Robyn Blanco RN 08/30/2024 Telephone [facility] Primary Care at [address] [phone] Pretehi Godoy NP Medical Question/Miscellaneous 08/30/2024 Orders Only [facility] Primary Care at [address] [phone] Preethi Godoy, DONALD from Last [...] Neg Hx Relation Name Status Comments Father AL & CVA () age 76 Mother Sister [...] on file 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 2:24 AM STAFF WEAPONS OFFICER Gender Identity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 Sexual Orientation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 [employer]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 Obstetrics History Last Filed Vital Signs Vital Sign Reading Time Taken Comments Blood Pressure 120/60 11/23/2024 12:30 PM STAFF WEAPONS OFFICER Pulse 80 11/23/2024 12:30 PM STAFF WEAPONS OFFICER Temperature 36.4 C (97.5 F) 11/23/2024 12:30 PM STAFF WEAPONS OFFICER Respiratory Rate 20 11/14/2024 10:16 AM STAFF WEAPONS OFFICER Oxygen Saturation 99% 11/14/2024 10:16 AM STAFF WEAPONS OFFICER Inhaled Oxygen Concentration - - Weight 64 kg (141 lb) 11/23/2024 12:30 PM STAFF WEAPONS OFFICER Height 177.8 cm (5' 10 ) 11/23/2024 12:30 PM STAFF WEAPONS OFFICER Body Mass Index 20.23 11/23/2024 12:30 PM STAFF WEAPONS OFFICER Plan of Treatment Health Maintenance Due Date [...] Screening Discontinued Medical Devices Implanted Type Area Machine Farmworker Device Identifier Shelf Expiration Date Model / Serial / Lot [employer]eli [id number] Synergy 3.5mm 24mm 144cm Radiopaque 1 Access Port Inflation Lumen - [id number] - [id number] Implanted:Qty: 1 on 03/26/2019 by Alban Santaan MD at [facility] Stent [employer] 12/09/2020 [id number] / [id number] / [id number] Procedures Procedure Name Priority Date/Time Associated Diagnosis Comments XR CHEST PA LATERAL 2 VIEWS Schedule Routine, Read Routine (OP Routine) 11/23/2024 1:30 PM STAFF WEAPONS OFFICER Pneumonia due to infectious organism, unspecified laterality, unspecified part of lung EGFR Routine 11/23/2024 1:22 PM STAFF WEAPONS OFFICER Benign hypertension with stage 3a chronic kidney disease (HCC) DIFFERENTIAL AUTO Routine 11/23/2024 1:2 2 PM STAFF WEAPONS OFFICER Iron deficiency anemia due to chronic blood loss Benign hypertension with stage 3a chronic kidney disease (HCC) CBC WITH AUTO DIFFERENTIAL Routine 11/23/2024 1:22 PM STAFF WEAPONS OFFICER Iron deficiency anemia due to chronic blood loss Benign hypertension with stage 3a chronic kidney disease (HCC) IRON Routine 11/23/2024 1:22 PM STAFF WEAPONS OFFICER Iron deficiency anemia due to chronic blood loss BASIC METABOLIC PANEL Routine 11/23/2024 1:22 PM STAFF WEAPONS OFFICER Benign hypertension with stage 3a chronic kidney disease (HCC) XR CHEST PA LATERAL 2 VIEWS Schedule YULIANA, Read YULIANA (Appt Today, Awaiting Results) 11/16/2024 2:07 PM STAFF WEAPONS OFFICER Acute cough INFLUENZA A/B, RSV, AND COVID-19 PCR Routine 11/14/2024 11:00 AM STAFF WEAPONS OFFICER Acute cough POC INFLUENZA A/B, COVID-19 ANTIGEN Routine 11/14/2024 10:47 AM STAFF WEAPONS OFFICER Acute cough SURGICAL PATHOLOGY Routine 10/21/2024 11 :18 AM STAFF WEAPONS OFFICER Crohn's disease of both small and large intestine with other complication (HCC) COLON BIOPSY 10/21/2024 10:58 AM STAFF WEAPONS OFFICER Crohn's disease of both small and large intestine with other complication (HCC) COLONOSCOPY 10/21/2024 10:56 AM STAFF WEAPONS OFFICER HC EST VISIT LEVEL 4 Schedule Routine, Read Routine (OP Routine) 08/30/2024 3:44 PM STAFF WEAPONS OFFICER BPH with obstruction/lower urinary tract symptoms CTA [...] PA Lateral 2 Views (11/23/2024 1:30 PM STAFF WEAPONS OFFICER) Anatomical Region Laterality Modality Body, Chest N/A Digital Radiogra phy 11/26/2024 2:09 PM STAFF WEAPONS OFFICER Narrative 11/26/2024 2:11 PM STAFF WEAPONS OFFICER EXAM DESCRIPTION: XR CHEST PA LATERAL 2 [...] bilateral pleural effusion with adjacent airspace opacities, pwque-zbanwcy-kzsq-left. Right mid chest linear density , linear [...] Buck Oleary D.O. AP T: Report ID: [id number] Reading Location: [place] [address] Procedure Note Buck Oleary, DO - 11/26/2024 [...] Small bilateral pleural effusionwith adjacent airspace opacities, jaqud-ujftejb-wcwl-left. Right mid chestlinear density , linear atelectasis [...] signed by Buck DOUGLAS T: Report ID: [id number] Reading Location: [place] [address] us Preethi Godoy NP IMG XR PROCEDURES Final Result * (ABNORMAL) eGFR (11/23/2024 1:22 PM STAFF WEAPONS OFFICER) eGFR 34(L) >=60 mL/min/1. 73 m2 Comment: [...] last reviewed 2021. Blood 11/23/2024 1:22 PM STAFF WEAPONS OFFICER 11/24/2024 11:14 AM STAFF WEAPONS OFFICER us Preethi Godoy NP LAB BLOOD ORDERABLES Final Resul t [facility] [id number] Department [place] [address] * (ABNORMAL) Differential, auto (11/23/2024 1:22 PM STAFF WEAPONS OFFICER) Neutrophil abs 6.3 1.5 - 6.5 K/cumm Imm gran abs 0.0 0.0 - 0.1 K/cumm [facility] Lymphocyte abs 0.7(L) 0.8 - 3.3 K/cumm [facility] Monocyte abs 1.0(H) 0.2 - 0.8 K/cumm [facility] Eosinophil abs 0.2 0.0 - 0.5 K/cumm [facility] Basophil abs 0.1 0.0 - 0.1 K/cumm [facility] Neutrophil pct 75.6 % [facility] Comment: Interpretive Data Percent cell count reference ranges are not reported, since discordance with absolute values may lead to misinterpretation of CBC data. Current Interpretive Data was last revised on 2017. Imm gran pct 0.5 % [facility] Comment: Interpretive Data Percent cell count reference ranges are not reported, since discordance with absolute values may lead to misinterpretation of CBC data. Current Interpretive Data was last revised on 2017. Lymphocyte pct 8.8 % [facility] Comment: Interpretive Data Percent cell count reference ranges are not reported, since discordance with absolute values may lead to misinterpretation of CBC data. Current Interpretive Data was last revised on 2017. Monocyte pct 11.6 % [facility] Comment: Interpretive Data Percent cell count reference ranges are not reported, since discordance with absolute values may lead to misinterpretation of CBC data. Current Interpretive Data was last revised on 2017. Eosinophil pct 2.9 % [facility] Comment: Interpretive Data Percent cell count [...] revised on 2017. Blood 11/23/2024 1:22 PM STAFF WEAPONS OFFICER 11/24/2024 11:08 AM STAFF WEAPONS OFFICER us Preethi Godoy CINDER DUMP CRANE OPERATOR LAB BLOOD ORDERABLES Final Resul t Performing Organization Address [facility] Co de Phone Number [facility] [address] Department [place] [address] * (ABNORMAL) CBC with auto differential (11/23/2024 1:22 PM STAFF WEAPONS OFFICER) WBC 8.4 3.8 - 9.9 K/cumm Hgb [...] K/cumm [facility] Blood 11/23/2024 1:22 PM STAFF WEAPONS OFFICER 11/24/2024 11:08 AM STAFF WEAPONS OFFICER us Preethi Godoy CINDER DUMP CRANE OPERATOR LAB BLOOD ORDERABLES Final Resul t Performing Organization Address City/[facility]/ZIP Co de Phone Number [facility] [place] [address] Department [place] [address] * (ABNORMAL) Iron level (11/23/2024 1:22 PM STAFF WEAPONS OFFICER) Iron 47(L) 50 - 150 mcg/dl Blood 11/23/2024 1:22 PM STAFF WEAPONS OFFICER 11/24/2024 11:08 AM STAFF WEAPONS OFFICER us Preethi Godoy NP LAB BLOOD ORDERABLES Final Resul t [facility] [place] [address] Department [place] [address] * (ABNORMAL) Basic metabolic panel (11/23/2024 1:22 PM STAFF WEAPONS OFFICER) Sodium 141 135 - 145 mmol/L Potassium, [...] 2022. Calcium 8.1(L) 8.5 - 10.3 mg/dL [facility] Blood 11/23/2024 1:22 PM STAFF WEAPONS OFFICER 11/24/2024 11:08 AM STAFF WEAPONS OFFICER us Preethi Godoy NP LAB BLOOD ORDERABLES Final Resul t [facility] [place] [address] Department [place] [address] * XR Chest Pa Lateral 2 Views (11/16/2024 2:07 PM STAFF WEAPONS OFFICER) Anatomical Region Laterality Modality Body, Chest N/A Digital Radiogra phy 11/16/2024 3:45 PM STAFF WEAPONS OFFICER Narrative 11/16/2024 3:51 PM STAFF WEAPONS OFFICER EXAM DESCRIPTION: XR CHEST PA LATERAL 2 [...] Jeffery Dawkins M.D. MJ T: Report ID: [id number] Reading Location: [id number] Procedure Note Jeffery Dawkins MD - 11/16/2024 [...] by Jeffery Dawkins M.D. T: Report ID: [id number] Reading Location: [place] [address] IMG XR PROCEDURES Final Result * (ABNORMAL) Influenza A/B, RSV, and COVID-19 PCR Nasopharyngeal (11/14/2024 11:00 AM STAFF WEAPONS OFFICER) Pathologist [facility] COVID-19 RNA Negative Negative Influenza A RNA Negative Negative [facility] Influenza B RNA Negative Negative [facility] RSV RNA Positive(A) Negative [facility] Comment: Interpretive data: Testing performed by [facility]. This test is performed using the [employer] Xpert Xpress CoV-2/Flu/RSV plus assay. This is a multiplex, real-time reverse transcriptase PCR assay intended for the qualitative detection of nucleic acid from SARS-CoV-2, influenza A, influenza B, and respiratory syncytial virus. This assay has been cleared by the [place] Food and Drug administration. The performance characteristics have been verified by the [facility]. Results must be considered in the clinical context, and a negative result does not rule out infection. Interpretive Data last revised 2023 Nasopharyngeal 11/14/2024 11 :00 AM STAFF WEAPONS OFFICER 11/14/2024 2:41 PM STAFF WEAPONS OFFICER Narrative TRAVIS BROWNLEE - 11/14/2024 3:32 PM STAFF WEAPONS OFFICER Is the Patient experiencing symptoms consistent with COVID?->Yes Madny TOWNSEND LAB MICROBIOLOGY - GENER AL ORDERABLES Final Result Performing Organization Address City/[facility] Co de Phone Number TRAVIS [address] [address] Department [place] [address] * POC Influenza A/B, COVID-19 antigen (11/14/2024 10:47 AM STAFF WEAPONS OFFICER) Influenza A Ag, POC Negative Negative [facility] Influenza B Ag, POC Negative Negative [facility] COVID-19 Ag POC Presumptive Negative Presumptive Negative, Invalid [facility] Nasal 11/14/2024 10:4 7 AM STAFF WEAPONS OFFICER Mandy TOWNSEND POINT OF CARE TEST ORDER MANJINDER Final Result Performing Organization Address [facility] de Phone Number [facility] [address] [place] [address] * Surgical pathology (10/21/2024 11:18 AM STAFF WEAPONS OFFICER) Tissue (Ileum, Biopsy) 10/21/2024 11:18 AM STAFF WEAPONS OFFICER Tissue (Colon, Biopsy) 10/21/2024 11:31 AM STAFF WEAPONS OFFICER Narrative PATHOLOGY BJ - 10/22/2024 11:22 AM STAFF WEAPONS OFFICER EPIC results best viewed via link to PDF [facility] [place] [address] Note to Patients: This report may contain [...] Gender: Rowan : 1945 (Age: 79) Address: [address] [place] [id number] [facility] #: [id number] Taken:10/21/2024 Received:10/21/2024 Reported: 10/22/2024 Patient Type: [facility] Service: Gastro Location: Physician(s): Edmund Waterman [...] Surgical Pathology and Flow Cytometry Departments at [facility] as part of an ongoing supplier quality specialist program and in compliance with federally [...] Surgical Pathology and Flow Cytometry Departments of [facility]. It has not been cleared or approved by the [place]. [place]. Food and Drug Administration. IMAGES AND SCANNED DOCUMENTS, IF INCLUDED, ONLY VIEWABLE IN PDF VERSION OF REPORT Kath Shepherd MD LAB PATHOLOGY ORDERABLES Laly l Result PATHOLOGY [facility] 3rd Floor [place], [place] [phone] * Colonoscopy (10/21/2024 10:56 AM STAFF WEAPONS OFFICER) Anatomical Region Laterality Modality Other Narrative Procedure Note Kath Shepherd MD - 10/21/2024 10:56 AM CST [facility] ENDOSCOPY [facility] Patient Name: Aziza Loya Procedure Date: 10/21/2024 10:56 AM Date of : 1945 Admit Type: Outpatient Age: 79 Gender: Male Attending MD: Kath Shepherd M.D. Room: [facility] ENDOSCOPY ROOM 3 Note Status: Finalized Procedure: [...] scope was passed under direct vision.The [facility] [id number] endoscope was introducedthrough the anus and [...] to Interventional Radiology (Community) (08/30/2024 3:44 PM STAFF WEAPONS OFFICER) Anatomical Region Laterality Modality N/A X-Ray Angiograph y 08/30/2024 3:47 PM STAFF WEAPONS OFFICER Impressions 08/30/2024 3:47 PM STAFF WEAPONS OFFICER Patient has history of prior prostate surgery, and he is not a good candidate for PAE. Complete details regarding this office visit can be found in [facility] under the Notes tab. Electronically signed by: Phan Hudson M.D. [facility] 08/30/2024 3:47 PM STAFF WEAPONS OFFICER EXAMINATION: [facility] INTERVENTIONAL RADIOLOGY CLINIC VISIT HISTORY: 79-year-old male patient with lower urinary tract symptoms, ears for evaluation for prostatic artery embolization. Procedure Note Phan Hudson MD - 08/30/2024 EXAMINATION: [facility] INTERVENTIONAL RADIOLOGY CLINIC VISIT HISTORY: 79-year-old [...] signed by Steven RAJPUT T: Report ID: [id number] Reading Location: [place] [address] Procedure Note Steven Ruano MD - 02/24/2024 [...] signed by Steven RAJPUT T: Report ID: [id number] Reading Location: [place] [address] [address] PROCEDURES Final Res [...] MICROBIOLOGY - GEN ERAL ORDERABLES Final Result [facility] [address] [address] Department [place] [address] from Last 3 Months or Most Recently Relevant to Health Maintenance Insurance [facility] MEDICARE MEDICARE [facility] MEDICARE [facility] MEDICARE [facility] MEDICARE [facility] Advance Directives For more information, please contact: [phone] * Full Code (Latest Code Status on [...] 10:45 AM 05/17/2022 5:55 PM Care Teams [employer]ler [employer] 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 Relationship Specialty Start Date End Date Preethi Godoy NP [address] [address] PCP - General Family Medicine 08/25/24 Kath Shepherd MD [address] [place] [address] Consulting Physician Gastroenterology 07/22/19 Peter Ya MD [address] [place] [address] Head Chef Cardiology 07/22/19 Aziza Ledesma MD [address] [place] [address] Consulting Physician Neurology 07/22/19 Joshua Butterfield MD [address] [facility] [address] [place] [address] Consulting Physician Urology 07/03/23 Jeffery Bustillos MD [address] [facility] [address] [place] [address] Consulting Physician Cardiovascular Disease 02/06/24 Shimon Schofield MD [address] [facility] [address] [place] [address] Consulting Physician Vascular Surgery 02/06/24
--- OUTSIDE RECORDS SUMMARY | 2024-11-28 06:34 | XMS_ITS | Referral Summary ---
Author Organization [facility] Address [address] [place] [address] Care Team Providers Care Saw Superintendent Name Role Phone Kath Shepherd MD Unavailable Peter Ya MD Unavailable Aziza Ledesma MD Unavailable [phone] Joshua Butterfield MD Unavailable [phone] Jeffery Bustillos MD Unavailable [phone] Shimon Schofield MD Unavailable Preethi Godoy NP Primary Care Provider Encounters Date Type Department Care Team Description 11/26/2024 Orders Only [facility] Medical Group Primary Care at [address] [address] Preethi Godoy NP 11/26/2024 Telephone [facility] Medical Group Primary Care at [address] [address] Preethi Godoy NP Medical Question/Miscellaneous 11/26/2024 Orders Only [facility] Medical Group Primary Care at [address] [address] Preethi Godoy NP 11/26/2024 Telephone [facility] Medical Group Primary Care at [address] [address] Preethi Godoy NP Symptom Based Call 11/24/2024 Results Follow-Up [facility] Medical Group Primary Care at [address] [address] Preethi Godoy NP 11/23/2024 1:22 PM CHILDBIRTH AND INFANT CARE TEACHER - 11/23/2024 11:59 PM CHILDBIRTH AND INFANT CARE TEACHER Hospital Encounter [address] [address] Benign hypertension with stage 3a chronic kidney disease (HCC); Iron deficiency anemia due to chronic blood loss Discharge Disposition: Discharge to home or self care 11/23/2024 1:30 PM CHILDBIRTH AND INFANT CARE TEACHER Lab [facility] Medical Group Outpatient Lab at [address] [address] Pneumonia due to infectious organism, unspecified laterality, unspecified part of lung (Primary Dx) 11/23/2024 1:30 PM CHILDBIRTH AND INFANT CARE TEACHER Ancillary Procedure [facility] Imaging at [address] [phone] Pneumonia due to infectious organism, unspecified laterality, unspecified part of lung 11/23/2024 12:30 PM CHILDBIRTH AND INFANT CARE TEACHER Office Visit [facility] Medical Group Primary Care at [address] [address] Preethi Godoy NP Pneumonia due to infectious organism, unspecified laterality, unspecified part of lung (Primary Dx); Iron deficiency anemia due to chronic blood loss; Benign hypertension with stage 3a chronic kidney disease (HCC); Persistent atrial fibrillation (HCC) 11/16/2024 Orders Only [facility] Medical Group Convenient Care at [address] [address] Gladys Valdovinos NP Lower respiratory infection (e.g., bronchitis, pneumonia, pneumonitis, pulmonitis) (Primary Dx) 11/16/2024 2:00 PM CHILDBIRTH AND INFANT CARE TEACHER Ancillary Procedure [facility] Imaging at [address] [phone] Acute cough 11/14/2024 Results Follow-Up [facility] Convenient Care at [address] [phone] Mandy Hernandez PA 11/14/2024 11:00 AM CHILDBIRTH AND INFANT CARE TEACHER - 11/14/2024 11:59 PM CHILDBIRTH AND INFANT CARE TEACHER Hospital Encounter [address] [address] Acute cough Discharge Disposition: Discharge to home or self care 11/14/2024 10:00 AM CHILDBIRTH AND INFANT CARE TEACHER Office Visit [facility] Medical Group Convenient Care at [address] [address] Mandy Hernandez PA Acute cough (Primary Dx) 11/10/2024 Orders Only [facility] Medical Group Primary Care at [address] [address] Preethi Godoy NP 11/03/2024 Orders Only [facility] Gastroenterology [address] [place] [address] Advanced Medicine 12th [place] [address] [place] [address] Kath Shepherd MD 10/25/2024 Telephone [facility] Gastroenterology [address] [place] [address] [facility] [place] [address] [place] [phone] Jeannine Newman, TEDDY Med Management [facility]) 10/21/2024 10:58 AM CHILDBIRTH AND INFANT CARE TEACHER Anesthesia Event [facility] Digestive Disease [address] [address] Danyell Maher MD 10/21/2024 10:30 AM CHILDBIRTH AND INFANT CARE TEACHER - 10/21/2024 11:15 AM CHILDBIRTH AND INFANT CARE TEACHER Surgery [facility] [address] [address] Kath Shepherd MD COLON BIOPSY 10/21/2024 9:15 AM CHILDBIRTH AND INFANT CARE TEACHER - 10/21/2024 12:33 PM CHILDBIRTH AND INFANT CARE TEACHER Hospital Encounter [facility] Digestive Disease [address] [address] Kath Shepherd MD Crohn's disease of both small and large intestine with other complication (HCC) Discharge Disposition: Discharge to home or self care 10/20/2024 Telephone [facility] Medical [facility] Primary Care at [address] [address] Preethi Godoy NP Medical Question/Miscellaneous 10/14/2024 Telephone [facility] Specialty Services [address] [place] [address] Stacey Crane RN 10/14/2024 Telephone [facility] Specialty Services [address] [place] [address] Stacey Crane RN 10/14/2024 Telephone [facility] Specialty Services [address] [place] [address] Stacey Crane, TEDDY GI PROCEDURE 7 DAY PRE CALL 09/08/2024 Telephone [facility] Gastroenterology [facility] 12th [place] [address] [place] [address] Winifred Rodriges RMA GI pre-procedural assessment 09/08/2024 1:00 PM CHIL[employer]IRTH AND INFANT CARE TEACHER Office Visit [facility] Cardiology [address] [facility] [address] [place] [address] Madai Enrique NP Coronary artery disease involving coronary bypass graft of [place] heart, unspecified whether angina present (Primary Dx); Fatigue, unspecified type; Hypotension, unspecified hypotension type; Persistent atrial fibrillation (HCC); Nonrheumatic mitral valve regurgitation 09/01/2024 Orders Only [facility] Vascular at [address] [place] [address] Shimon Schofield MD Atherosclerosis of [place] artery of both lower extremities with intermittent claudication (Primary Dx) 09/01/2024 Telephone [facility] Primary Care at [address] [address] Preethi Godoy NP Test Results (Urin culture); Call Back 09/01/2024 9:00 AM CHILDBIRTH AND INFANT CARE TEACHER Office Visit [facility] Vascular at [address] [place] [address] Shimon Schofield MD Peripheral artery disease (Primary Dx); Hypercholesterolemia; Coronary artery disease involving coronary bypass graft of [place] heart without angina pectoris 08/30/2024 Telephone [facility] Imaging [address] [address] [address] Robyn Blanco RN 08/30/2024 Telephone [facility] Medical Group Primary Care at [address] [address] Preethi Godoy NP Medical Question/Miscellaneous 08/30/2024 Orders Only [facility] Medical Group Primary Care at [address] [address] Preethi Godoy NP 08/30/2024 2:33 PM CHILDBIRTH AND INFANT CARE TEACHER - 08/30/2024 11:59 PM CHILDBIRTH AND INFANT CARE TEACHER Hospital Encounter [facility] Imaging [address] Idania SMITH, CHRIS [address] Mer Lynn RN BPH with obstruction/lower urinary tract symptoms Discharge Disposition: Discharge to home or self care from Last 3 Months Allergies No known active allergies Medications coenzyme Q10 10 mg capsule Take 2 capsules (20 mg total) by mouth every morning Active ptmif-[id number]-kzz-ep a-dpa-fish oil 1,050-1,200 mg capsule Take 1 [...] Route Frequency Start Date End Date Status [facility] BMS-744875/placebo (/[id number]) capsule 4 capsuleIndications:Crohn' s disease of both small and large intestine with other complication (HCC) 4 capsule oral 2 times daily 05/21/2022 Active [facility] BMS-140500/placebo (/[id number]) capsule 4 capsuleIndications:Crohn' s disease of both small and large intestine with other complication (HCC) 4 capsule oral 2 times daily 06/18/2022 [facility]-7724[facility]place[facility] (/[id number]) capsule 4 capsuleIndications:Crohn' s disease of both small and large intestine with other complication (HCC) 4 capsule oral 2 times daily 07/09/2022 Active [facility] BMS-182307/placebo (/[id number]) capsule 4 capsuleIndications:Crohn' s disease of both small and large intestine with other complication (HCC) 4 capsule oral 2 times daily 08/07/2022 Active [facility] BMS-845806/placebo (/[id number]) capsule 4 capsuleIndications:Crohn' s disease of both small and large intestine with other complication (HCC) 4 capsule oral 2 times daily 09/19/2022 Active [facility] BMS-230415/placebo (/[id number]) capsule 4 capsuleIndications:Crohn' s disease of both [...] modification Assessment & Plan (10/03/2023 1:12 PM CHILDBIRTH AND INFANT CARE TEACHER): Chronic. Due to prior peripheral arterial disease. [...] urologist Assessment & Plan (10/03/2023 1:12 PM CHILDBIRTH AND INFANT CARE TEACHER): Chronic. Continue medication care per Urology Assessment & Plan (07/03/2023 5:22 PM CDT): Follows with Urology [facility] Dr. Butter[place]. Patient on finasteride and does intermittent straight catheterization Protein-calorie malnutrition, mild 07/03/2023 Overview (07/03/2023): Patient with low BMI. Less protein level was low. Monitor weight Assessment & Plan (02/06/2024 4:55 PM CDT): Patient has had borderline protein calorie malnutrition. Monitor his protein levels on labs. Encourage adequate nutrition. Avoid additional weight loss Assessment & Plan (10/03/2023 1:12 PM CHILDBIRTH AND INFANT CARE TEACHER): Chronic. BMI remains at the lower end arrange. Encouraged adequate nutrition. Monitor History of gout 07/03/2023 Assessment & Plan (02/06/2024 4:55 PM CDT): Chronic. Denies history of recent flares. Continue allopurinol for prophylaxis. Check uric acid Assessment & Plan (10/03/2023 1:12 PM CHILDBIRTH AND INFANT CARE TEACHER): Chronic. Denies any history of gout in [...] 03/14/2023 Assessment & Plan (10/03/2023 1:13 PM CHILDBIRTH AND INFANT CARE TEACHER): Chronic. May occasionally increase in size. Minimal pain. Has deferred elective repair in the past Persistent atrial fibrillation 12/04/2021 Assessment & Plan (11/23/2024 1:36 PM CHILDBIRTH AND INFANT CARE TEACHER): Rate controlled in office, continuing follow up with Cardiology. Assessment & Plan (03/01/2024 7:51 AM CDT): Stable continue metoprolol. Assessment & Plan (02/06/2024 4:55 PM CDT): Chronic. Controlled rate with metoprolol. Continue. Continue aspirin for stroke prophylaxis Assessment & Plan (10/03/2023 1:12 PM CHILDBIRTH AND INFANT CARE TEACHER): Chronic. Continue risk factor modification. Continue ASA [...] Monitor Assessment & Plan (10/03/2023 1:11 PM CHILDBIRTH AND INFANT CARE TEACHER): Chronic. Denies significant worsening. No agitation recently. [...] amyloid angiopathy ([facility]) 02/15/2020 Assessment & Plan (02/06/2024 4:54 PM CDT): Chronic. Memory has worsened slightly in the last year. He does have some fluctuations at times. No real agitation. Target good blood pressure control. Continue aspirin for his other issues. Would be cautious with more aggressive anticoagulation given history of amyloid angiopathy Assessment & Plan (10/03/2023 1:11 PM CHILDBIRTH AND INFANT CARE TEACHER): Chronic. Denies any progression of symptoms Assessment & Plan (07/03/2023 5:18 PM CDT): Chronic. Control blood pressure and modify risk factors as able. Continue aspirin given AFib but would be cautious with stronger anticoagulants given increased bleeding risk with cerebral amyloid angiopathy Peripheral artery disease 09/10/2019 Overview (09/10/2019): Added automatically from request for surgery [id number] Assessment & Plan (09/03/2024 10:57 AM CHILDBIRTH AND INFANT CARE TEACHER): Stable lower extremity occlusive disease. Continue risk [...] duplex. Assessment & Plan (10/03/2023 1:11 PM CHILDBIRTH AND INFANT CARE TEACHER): Chronic. Denies recent claudication symptoms. Continue ASA, statin and Pletal Assessment & Plan (07/03/2023 5:22 PM CDT): Chronic. 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 Denies current sores on his feet. Follows with Podiatry in [place]. On cilostazol Iron deficiency anemia due to [...] 02/17/2019 Assessment & Plan (11/23/2024 1:35 PM CHILDBIRTH AND INFANT CARE TEACHER): BP normal in office, continuing current regimen. [...] dehydrate Assessment & Plan (10/03/2023 1:10 PM CHILDBIRTH AND INFANT CARE TEACHER): Chronic. Blood pressure controlled. Continue current prescription [...] (01/26/2019): Added automatically from request for surgery [id number] Assessment & Plan (02/06/2024 4:52 PM CDT): Chronic. Disease has been stable. Minimal symptoms. He does have to be cautious with eating too many fruits and vegetables as he notes this does cause some GI distress. He remains controlled with Skyrezi and hydroxychloroquine. He will continue Assessment & Plan (10/03/2023 1:10 PM CHILDBIRTH AND INFANT CARE TEACHER): Chronic. Symptomatically improved per patient. Continue medication and care per GI Assessment & Plan (07/03/2023 5:20 PM CDT): Chronic. Follows with Gastroenterology. On scar oz and sulfasalazine. Continue medication and care per them CAD (coronary artery disease) 12/04/2018 Assessment & Plan (09/03/2024 10:57 AM CHILDBIRTH AND INFANT CARE TEACHER): Stable continue ASA and Lasix Assessment & Plan (02/06/2024 4:51 PM CDT): Chronic. Denies chest pain. Continue risk factor modification with statin, aspirin, blood pressure control. Target LDL less than 70 Assessment & Plan (10/03/2023 1:10 PM CHILDBIRTH AND INFANT CARE TEACHER): Chronic. Denies chest pain. Follows with cardiology. [...] 12/30/2017 Assessment & Plan (08/25/2024 4:06 PM CHILDBIRTH AND INFANT CARE TEACHER): Updated labs ordered, Hemoglobin was 9 in [...] infusions Assessment & Plan (10/03/2023 1:10 PM CHILDBIRTH AND INFANT CARE TEACHER): Chronic. Follows with GI and Hematology. Has received iron infusions. Often does B12 injections Assessment & Plan (07/03/2023 5:15 PM CDT): Chronic. Follows with GI and Hematology. Received iron infusions Hypercholesterolemia 02/05/2011 Assessment & Plan (09/03/2024 10:57 AM CHILDBIRTH AND INFANT CARE TEACHER): Stable continue statin therapy. Assessment & Plan (03/01/2024 7:50 AM CDT): Stable continue statin therapy. Assessment & Plan (02/06/2024 4:53 PM CDT): Chronic. Tolerates atorvastatin. Continue. Check cholesterol level and adjust for an LDL goal of at least less than 70 with optimal less than 55 Assessment & Plan (10/03/2023 1:10 PM CHILDBIRTH AND INFANT CARE TEACHER): Chronic. Tolerates current prescription medication. 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 [employer]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 Not on file Not on file Last Filed Vital Signs Vital Sign Reading Time Taken Comments Blood Pressure 120/60 11/23/2024 12:30 PM CHILDBIRTH AND INFANT CARE TEACHER Pulse 80 11/23/2024 12:30 PM CHILDBIRTH AND INFANT CARE TEACHER Temperature 36.4 C (97.5 F) 11/23/2024 12:30 PM CHILDBIRTH AND INFANT CARE TEACHER Respiratory Rate 20 11/14/2024 10:16 AM CHILDBIRTH AND INFANT CARE TEACHER Oxygen Saturation 99% 11/14/2024 10:16 AM CHILDBIRTH AND INFANT CARE TEACHER Inhaled Oxygen Concentration - - Weight 64 kg (141 lb) 11/23/2024 12:30 PM CHILDBIRTH AND INFANT CARE TEACHER Height 177.8 cm (5' 10 ) 11/23/2024 12:30 PM CHILDBIRTH AND INFANT CARE TEACHER Body Mass Index 20.23 11/23/2024 12:30 PM CHILDBIRTH AND INFANT CARE TEACHER Plan of Treatment Not on file Medical Devices Implanted Type Area Middle School History Teacher Device Identifier Shelf Expiration Date Model / Serial / Lot [employer] Araceli [id number] Synergy 3.5mm 24mm 144cm Radiopaque 1 Access Port Inflation Lumen - [id number] - [id number] Implanted:Qty: 1 on 03/26/2019 by Alban Santana MD at [facility] [employer] 12/09/2020 [id number] / [id number] / [id number] Procedures Procedure Name Priority Date/Time Associated Diagnosis Comments XR CHEST PA LATERAL 2 VIEWS Schedule Routine, Read Routine (OP Routine) 11/23/2024 1:30 PM CHILDBIRTH AND INFANT CARE TEACHER Pneumonia due to infectious organism, unspecified laterality, unspecified part of lung EGFR Routine 11/23/2024 1:22 PM CHILDBIRTH AND INFANT CARE TEACHER Benign hypertension with stage 3a chronic kidney disease (HCC) DIFFERENTIAL AUTO Routine 11/23/2024 1:2 2 PM CHILDBIRTH AND INFANT CARE TEACHER Iron deficiency anemia due to chronic blood loss Benign hypertension with stage 3a chronic kidney disease (HCC) CBC WITH AUTO DIFFERENTIAL Routine 11/23/2024 1:22 PM CHILDBIRTH AND INFANT CARE TEACHER Iron deficiency anemia due to chronic blood loss Benign hypertension with stage 3a chronic kidney disease (HCC) IRON Routine 11/23/2024 1:22 PM CHILDBIRTH AND INFANT CARE TEACHER Iron deficiency anemia due to chronic blood loss BASIC METABOLIC PANEL Routine 11/23/2024 1:22 PM CHILDBIRTH AND INFANT CARE TEACHER Benign hypertension with stage 3a chronic kidney disease (HCC) XR CHEST PA LATERAL 2 VIEWS Schedule YULIANA, Read YULIANA (Appt Today, Awaiting Results) 11/16/2024 2:07 PM CHILDBIRTH AND INFANT CARE TEACHER Acute cough INFLUENZA A/B, RSV, AND COVID-19 PCR Routine 11/14/2024 11:00 AM CHILDBIRTH AND INFANT CARE TEACHER Acute cough POC INFLUENZA A/B, COVID-19 ANTIGEN Routine 11/14/2024 10:47 AM CHILDBIRTH AND INFANT CARE TEACHER Acute cough SURGICAL PATHOLOGY Routine 10/21/2024 11 :18 AM CHILDBIRTH AND INFANT CARE TEACHER Crohn's disease of both small and large intestine with other complication (HCC) COLON BIOPSY 10/21/2024 10:58 AM CHILDBIRTH AND INFANT CARE TEACHER Crohn's disease of both small and large intestine with other complication (HCC) COLONOSCOPY 10/21/2024 10:56 AM CHILDBIRTH AND INFANT CARE TEACHER HC EST VISIT LEVEL 4 Schedule Routine, Read Routine (OP Routine) 08/30/2024 3:44 PM CHILDBIRTH AND INFANT CARE TEACHER BPH with obstruction/lower urinary tract symptoms CTA [...] PA Lateral 2 Views (11/23/2024 1:30 PM CHILDBIRTH AND INFANT CARE TEACHER) Anatomical Region Laterality Modality Body, Chest N/A Digital Radiogra phy 11/26/2024 2:09 PM CHILDBIRTH AND INFANT CARE TEACHER Narrative 11/26/2024 2:11 PM CHILDBIRTH AND INFANT CARE TEACHER EXAM DESCRIPTION: XR CHEST PA LATERAL 2 [...] bilateral pleural effusion with adjacent airspace opacities, wbzzw-lmmffiy-rhez-left. Right mid chest linear density , linear [...] Buck Oleary D.O. AP T: Report ID: [id number] Reading Location: [id number] Procedure Note Buck Oleary, DO - 11/26/2024 [...] Small bilateral pleural effusionwith adjacent airspace opacities, kdeui-ecrjjmm-ubsi-left. Right mid chestlinear density , linear atelectasis [...] Buck Oleary D.O. AP T: Report ID: [id number] Reading Location: [place] [address] [place] Preethi Godoy DIRECTOR OF PUBLIC SAFETY IMG XR PROCEDURES Final Result * (ABNORMAL) eGFR (11/23/2024 1:22 PM CHILDBIRTH AND INFANT CARE TEACHER) eGFR 34(L) >=60 mL/min/1. 73 m2 Comment: [...] last reviewed 2021. Blood 11/23/2024 1:22 PM CHILDBIRTH AND INFANT CARE TEACHER 11/24/2024 11:14 AM CHILDBIRTH AND INFANT CARE TEACHER Preethi Godoy NP LAB BLOOD ORDERABLES Final Resul t [facility] [id number] Department [place] [address] * (ABNORMAL) Differential, auto (11/23/2024 1:22 PM CHILDBIRTH AND INFANT CARE TEACHER) Neutrophil abs 6.3 1.5 - 6.5 K/cumm Imm gran abs 0.0 0.0 - 0.1 K/cumm [facility] Lymphocyte abs 0.7(L) 0.8 - 3.3 K/cumm [facility] Monocyte abs 1.0(H) 0.2 - 0.8 K/cumm [facility] Eosinophil abs 0.2 0.0 - 0.5 K/cumm [facility] Basophil abs 0.1 0.0 - 0.1 K/cumm [facility] Neutrophil pct 75.6 % [facility] Comment: Interpretive Data Percent cell count reference ranges are not reported, since discordance with absolute values may lead to misinterpretation of CBC data. Current Interpretive Data was last revised on 2017. Imm gran pct 0.5 % [facility] Comment: Interpretive Data Percent cell count reference ranges are not reported, since discordance with absolute values may lead to misinterpretation of CBC data. Current Interpretive Data was last revised on 2017. Lymphocyte pct 8.8 % [facility] Comment: Interpretive Data Percent cell count reference ranges are not reported, since discordance with absolute values may lead to misinterpretation of CBC data. Current Interpretive Data was last revised on 2017. Monocyte pct 11.6 % [facility] Comment: Interpretive Data Percent cell count reference ranges are not reported, since discordance with absolute values may lead to misinterpretation of CBC data. Current Interpretive Data was last revised on 2017. Eosinophil pct 2.9 % [facility] Comment: Interpretive Data Percent cell count reference ranges are not reported, since discordance with absolute values may lead to misinterpretation of CBC data. Current Interpretive Data was last revised on 2017. Basophil pct 0.6 % [facility] Comment: Interpretive Data Percent cell count reference ranges are not reported, since discordance with absolute values may lead to misinterpretation of CBC data. Current Interpretive Data was last revised on 2017. Blood 11/23/2024 1:22 PM CHILDBIRTH AND INFANT CARE TEACHER 11/24/2024 11:08 AM CHILDBIRTH AND INFANT CARE TEACHER Preethi Godoy NP LAB BLOOD ORDERABLES Final Resul t [facility] [id number] Department [place] [address] * (ABNORMAL) CBC with auto differential (11/23/2024 1:22 PM CHILDBIRTH AND INFANT CARE TEACHER) WBC 8.4 3.8 - 9.9 K/cumm Hgb 9.7(L) 13.0 - 17.5 g/dL [facility] Hct 31.3(L) 38.9 - 50.3 % [facility] Plt 179 150 - 400 K/cumm [facility] MPV 10.2 9.1 - 12.3 fL [facility] RBC 3.12(L) 4.30 - 5.80 M/cumm [facility] MCV 100.3(H) 81.3 - 96.4 fL [facility] MCH 31.1 27.1 - 33.3 pg [facility] MCHC 31.0(L) 32.3 - 35.7 g/dL [facility] RDW CV 17.2(H) 11.1 - 14.9 % [facility] RDW SD 64.2(H) 35.7 - 48.1 fL [facility] NRBC abs 0.00 0.00 - 0.01 K/cumm [facility] Blood 11/23/2024 1:22 PM CHILDBIRTH AND INFANT CARE TEACHER 11/24/2024 11:08 AM CHILDBIRTH AND INFANT CARE TEACHER us Preethi Godoy DIRECTOR OF PUBLIC SAFETY LAB BLOOD ORDERABLES Final Resul t Performing Organization Address [facility] de Phone Number TRAVIS BROWNLEE [address] Department [place] [place] [address] * (ABNORMAL) Iron level (11/23/2024 1:22 PM CHILDBIRTH AND INFANT CARE TEACHER) Pathologist [facility] Iron 47(L) 50 - 150 mcg/dl Blood 11/23/2024 1:22 PM CHILDBIRTH AND INFANT CARE TEACHER 11/24/2024 11:08 AM CHILDBIRTH AND INFANT CARE TEACHER us Preethi Godoy DIRECTOR OF PUBLIC SAFETY LAB BLOOD ORDERABLES Final Resul t Performing Organization Address [facility] de Phone Number TRAVIS [phone] [address] [place] [address] * (ABNORMAL) Basic metabolic panel (11/23/2024 1:22 PM CHILDBIRTH AND INFANT CARE TEACHER) Pathologist [facility] Sodium 141 135 - 145 mmol/L Potassium, pl 3.6 3.3 - 4.9 mmol/L [facility] Chloride 109 97 - 110 mmol/L [facility] CO2 21(L) 22 - 32 mmol/L [facility] Anion gap 11 2 - 15 mmol/L [facility] BUN 18 6 - 25 mg/dL [facility] Creatinine 1.97(H) 0.80 - 1.30 mg/dL [facility] Glucose 75 70 - 199 mg/dL [facility] Comment: Interpretive Data Fasting glucose >/= [...] mg/dL TRAVIS TORRIE Blood 11/23/2024 1:22 PM CHILDBIRTH AND INFANT CARE TEACHER 11/24/2024 11:08 AM CHILDBIRTH AND INFANT CARE TEACHER Preethi Godoy NP LAB BLOOD ORDERABLES Final Resul t TRAVIS [place] [id number] [address] Department [place] [address] * XR Chest Pa Lateral 2 Views (11/16/2024 2:07 PM CHILDBIRTH AND INFANT CARE TEACHER) Anatomical Region Laterality Modality Body, Chest N/A Digital Radiogra phy 11/16/2024 3:45 PM CHILDBIRTH AND INFANT CARE TEACHER Narrative 11/16/2024 3:51 PM CHILDBIRTH AND INFANT CARE TEACHER EXAM DESCRIPTION: XR CHEST PA LATERAL 2 [...] signed by Jeffery CRUMP T: Report ID: [id number] Reading Location: [id number] Procedure Note Jeffery Dawkins MD - 11/16/2024 [...] Jeffery Dawkins M.D. MJ T: Report ID: [id number] Reading Location: [id number] Mandy TOWNSEND IMG XR PROCEDURES Final Result * (ABNORMAL) Influenza A/B, RSV, and COVID-19 PCR Nasopharyngeal (11/14/2024 11:00 AM CHILDBIRTH AND INFANT CARE TEACHER) Pathologist [facility] COVID-19 RNA Negative Negative Influenza A RNA Negative Negative [facility] Influenza B RNA Negative Negative [facility] RSV RNA Positive(A) Negative [facility] Comment: Interpretive data: Testing performed by [facility]. This test is performed using the [employer] Xpert Xpress CoV-2/Flu/RSV plus assay. This is a multiplex, real-time reverse transcriptase PCR assay intended for the qualitative detection of nucleic acid from SARS-CoV-2, influenza A, influenza B, and respiratory syncytial virus. This assay has been cleared by the [place] Food and Drug administration. The performance characteristics have been verified by the [facility]. Results must be considered in the clinical context, and a negative result does not rule out infection. Interpretive Data last revised 2023 Nasopharyngeal 11/14/2024 11 :00 AM CHILDBIRTH AND INFANT CARE TEACHER 11/14/2024 2:41 PM CHILDBIRTH AND INFANT CARE TEACHER Narrative CERNER - 11/14/2024 3:32 PM CHILDBIRTH AND INFANT CARE TEACHER Is the Patient experiencing symptoms consistent with COVID?->Yes Mandy TOWNSEND LAB MICROBIOLOGY - GENER AL ORDERABLES Final Result Performing Organization Address City/[facility]/ZIP Co de Phone Number [facility] [address] [address] Department [place] [address] [facility] * POC Influenza A/B, COVID-19 antigen (11/14/2024 10:47 AM CHILDBIRTH AND INFANT CARE TEACHER) Influenza A Ag, POC Negative Negative [facility] Influenza B Ag, POC Negative Negative [facility] COVID-19 Ag POC Presumptive Negative Presumptive Negative, Invalid [facility] Nasal 11/14/2024 10:4 7 AM CHILDBIRTH AND INFANT CARE TEACHER Mandy TOWNSEND POINT OF CARE TEST ORDER MANJINDER Final Result [facility] [address] * Surgical pathology (10/21/2024 11:18 AM CHILDBIRTH AND INFANT CARE TEACHER) Tissue (Ileum, Biopsy) 10/21/2024 11:18 AM CHILDBIRTH AND INFANT CARE TEACHER Tissue (Colon, Biopsy) 10/21/2024 11:31 AM CHILDBIRTH AND INFANT CARE TEACHER Narrative PATHOLOGY [facility] - 10/22/2024 11:22 AM CHILDBIRTH AND INFANT CARE TEACHER EPIC results best viewed via link to PDF [facility] Ambreen Bello [facility] [place] [address] Note to Patients: This report may contain [...] Gender: M : 1945 (Age: 79) Address: [address] [place] [address] Hospital #: [id number] Taken:10/21/2024 Received:10/21/2024 Reported: 10/22/2024 Patient Type: [facility] Service: Gastro Location: Physician(s): Edmund Waterman F.N.P. Diagnosis: A. Small intestine, terminal ileum, endoscopic biopsy - No histopathologic abnormality - No evidence of acute or chronic ileitis, ulcers, or granulomas - No dysplasia or malignancy B. Large intestine, random colon, endoscopic biopsy - No histopathologic abnormality - No evidence of active colitis, chronic colitis, ulcers, or granulomas - No dysplasia or malignancy [facility]/10/22/2024 11:22 By this signature, I attest [...] Surgical Pathology and Flow Cytometry Departments at [facility] as part of an ongoing quality control manager program and in compliance with federally mandated [...] Surgical Pathology and Flow Cytometry Departments of [facility]. It has not been cleared or approved by the [place]. [place]. Food and Drug Administration. IMAGES AND SCANNED DOCUMENTS, IF INCLUDED, ONLY VIEWABLE IN PDF VERSION OF REPORT us Kath Shepherd MD LAB PATHOLOGY ORDERABLES Laly l Result PATHOLOGY [facility] 3rd Floor [place], [place] [phone] * Colonoscopy (10/21/2024 10:56 AM CHILDBIRTH AND INFANT CARE TEACHER) Anatomical Region Laterality Modality Other Narrative Procedure Note Kath Shepherd MD - 10/21/2024 10:56 AM CST [facility] ENDOSCOPY [facility] Patient Name: Aziza Loya Procedure Date: 10/21/2024 10:56 AM Date of : 1945 Admit Type: Outpatient Age: 79 Gender: Male Attending MD: Kath Shepherd M.D. Room: [facility] ENDOSCOPY ROOM 3 Note Status: [...] scope was passed under direct vision.The PC [id number] endoscope was introducedthrough the anus and [...] Re sult * Consult to Interventional Radiology ([facility]) (08/30/2024 3:44 PM CHILDBIRTH AND INFANT CARE TEACHER) Anatomical Region Laterality Modality N/A X-Ray Angiograph y 08/30/2024 3:47 PM CHILDBIRTH AND INFANT CARE TEACHER Impressions 08/30/2024 3:47 PM CHILDBIRTH AND INFANT CARE TEACHER Patient has history of prior prostate surgery, and he is not a good candidate for PAE. Complete details regarding this office visit can be found in [facility] under the Notes tab. Electronically signed by: Phan Hudson M.D. Narrative 08/30/2024 3:47 PM CHILDBIRTH AND INFANT CARE TEACHER EXAMINATION: [facility] INTERVENTIONAL RADIOLOGY CLINIC VISIT HISTORY: 79-year-old male patient with lower urinary tract symptoms, ears for evaluation for prostatic artery embolization. Procedure Note Phan Hudson MD - 08/30/2024 EXAMINATION: [facility] INTERVENTIONAL RADIOLOGY CLINIC VISIT HISTORY: 79-year-old male patient with lower urinary tract symptoms, ears for evaluation for prostatic artery embolization. IMPRESSION: Patient has history of prior prostate surgery, and he is not a good candidate for PAE. Complete details regarding this office visit can be found in [facility] under the Notes tab. Electronically signed [...] signed by Steven RAJPUT T: Report ID: [id number] Reading Location: [id number] Procedure Note Steven Ruano MD - 02/24/2024 [...] Steven Ruano M.D. RB T: Report ID: [id number] Reading Location: [place] [address] PROCEDURES Final Res [...] - GEN ERAL ORDERABLES Final Result TRAVIS [address] [place] [place] [address] from Last 3 Months or Most Recently Relevant to Health Maintenance Insurance [facility] MEDICARE MEDICARE [facility] MEDICARE [facility] MEDICARE [facility] MEDICARE [facility] Advance Directives For more information, please contact: [phone] * Full Code (Latest Code Status on [...] 10:45 AM 05/17/2022 5:55 PM Care Teams Saw Superintendent Relationship Specialty Start Date End Date Preethi Godoy NP [address] [place] [address] PCP - General Family Medicine 08/25/24 Kath Shepherd MD [address] [place] [address] Consulting Physician Gastroenterology 07/22/19 Peter Ya MD [address] [place] [address] Negotiator Cardiology 07/22/19 Aziza Ledesma MD [address] [place] [address] Consulting Physician Neurology 07/22/19 Joshua Butterfield MD [address] [place] [address] [address] [place] [address] Consulting Physician Urology 07/03/23 Jeffery Bustillos MD [address] [place] [address] [address] [place] [address] Consulting Physician Cardiovascular Disease 02/06/24 Shimon Schofield MD [address] [address] Consulting Physician Vascular Surgery 02/06/24
--- OUTSIDE RECORDS SUMMARY | 2024-11-28 06:34 | XMS_ITS | Encounter Summary ---
Author Organization [facility] Address [address] [place] [address] Phone Care Team Providers Care Customer Experience Retail Clerk Name Role Phone John Kimbrough MD Primary Care Provider [phone] Kath Shepherd MD Unavailable [phone] Peter Ya MD Unavailable [phone] Vitaly Ledesma MD Unavailable [phone] Anayeli Lee MD Primary Care Provider Joshua Butterfield MD Unavailable [phone] Jeffery Bustillos MD Unavailable [phone] Shimon Schofield MD Unavailable Preethi Godoy NP Primary Care Provider [phone] Encounter Details Date Type Department Care Team (Late st Contact Info) Description 02/03/2020 Telephone [facility] Gastroenterology [facility] 8th [place] [address] [place] [address] Sherie Yoo, [facility] Social History Tobacco Use Types Packs/Day Years Used Date Smoking Tobacco: Former Smokeless Tobacco: Never Alcohol Use Standard Drinks/Week Comments No 0 (1 standard drink = 0.6 oz pur e alcohol) Sex and Gender Information Value Date Recorded Sex Assigned at Not on file 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 2:24 AM 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 OPERATOR Gender Identity Not on file Sexual Orientation Not on file documented as of this encounter Plan of Treatment Not on file documented as of this encounter Visit Diagnoses Not on filedocumented in this encounter Additional Health Concerns Infection Onset Date Last Indicated Resolved Time COVID: Suspected 08/21/2021 08/21/2021 08/21/2021 11:38 AM CNC LASER OPERATOR COVID: Suspected 11/14/2024 11/14/2024 11/14/2024 10:49 AM CNC LASER OPERATOR COVID: Suspected 11/14/2024 11/14/2024 11/14/2024 3:33 PM CNC LASER OPERATOR RSV, droplet 11/14/2024 11/14/2024 11/21/2024 3:07 AM CNC LASER OPERATOR documented as of this encounter Care Teams Customer Experience Retail Clerk Relationship Specialty Start Date End Date John Kimbrough MD [address] [facility] [address] [place] [address] PCP - General 11/08/16 07/02/23 Anayeli Lee MD [address] [place] [address] PCP - General Family Medicine 07/03/23 08/24/24 Preethi Godoy NP [address] [facility] [address] [place] [address] PCP - General Family Medicine 08/25/24 Kath Shepherd MD [address] [place] [address] Consulting Physician Gastroenterology 07/22/19 Peter Ya MD [address] [place] [address] Vp Delivery Cardiology 07/22/19 Vitaly Ledesma MD [address] [place] [address] Consulting Physician Neurology 07/22/19 Joshua Butterfield MD [address] [facility] [address] [place] [address] Consulting Physician Urology 07/03/23 Jeffery Bustillos MD [address] [facility] [address] [facility] [address] [place] [address] Consulting Physician Cardiovascular Disease 02/06/24 Shimon Schofield MD [address] [address] Consulting Physician Vascular Surgery 02/06/24 documented as of this encounter
[2024-11-28 06:42] LABS: Basophils Absolute Auto 0.1 K/mm3 (0.0-0.1); Basophils Percent Auto 0.5 % (0.2-1.2); Eosinophils Absolute Auto 0.3 K/mm3 (0-0.3); Eosinophils Percent Auto 2.4 % (0-4.4); Hematocrit 27.9 % (42.0-52.0); Hemoglobin 8.8 g/dL (14.0-18.0); Immature Granulocyte Absolute 0.05 K/mm3 (0.00-0.031); Immature Granulocyte Percent A 0.5 % (0-0.5); Lymphocytes Absolute Auto 0.72 K/mm3 (0.9-3.2); Lymphocytes Percent Auto 6.7 % (18.3-44.2); Mean Corpuscular HGB Conc 31.5 g/dl (32-36); Mean Corpuscular Hemoglobin 30.9 pg (26-34); Mean Corpuscular Volume 97.9 fl (80-100); Mean Platelet Volume 9.7 fl (7.4-10.4); Monocytes Percent Auto 9.3 % (2.6-8.5); Neutrophils Absolute Auto 8.6 K/mm3 (1.3-6.7); Neutrophils Percent Auto 80.6 % (45.5-73.1); Platelet Count Result 149 k/mm3 (150-375); Red Blood Count 2.85 M/mm3 (4.6-6.20); Red Cell Distribution Width 17.2 % (11.5-14.5); White Blood Count 10.7 K/mm3 (4.5-10.0)
[2024-11-28 06:52] LABS: Lactic Acid Reflex 0.7 mmol/L (0.7-2.0)
[2024-11-28 06:55] LABS: INR 1.6
[2024-11-28 06:56] LABS: Alanine Aminotransferase 31 U/L (6-50); Albumin Level 3.2 g/dL (3.5-5.1); Alkaline Phosphatase 89 U/L (38-126); Anion Gap 10 mmol/L (4-12); Aspartate Amino Transferase 27 U/L (17-59); Bilirubin,Total 0.6 mg/dL (0.2-1.3); Blood Urea Nitrogen 18 mg/dL (9-20); CRP 5.2 mg/dL (<1.0); Calcium 8.2 mg/dL (8.4-10.2); Carbon Dioxide 21 mmol/L (22-30); Chloride 108 mmol/L (98-107); Estimated Glomerular Filt Rate 34; Glucose 95 mg/dL (65-110); Partial Thromboplastin Time 43.2 Seconds (22.3-36.8); Sodium 139 mmol/L (137-145)
[2024-11-28] MEDS: AZITHROMYCIN 250 MG TABLET 500 MG PO (07:02)
[2024-11-28] MEDS: CEFEPIME 2 GM/NS 50 ML 2 GM/50 ML BAG IVPB (07:02)
[2024-11-28 07:20] LABS: Influenza A QL RT-PCR Negative (Negative); Influenza B QL RT-PCR Negative (Negative); RSV RNA, RT-PCR Negative (Negative); SARS-CoV-2 RNA PCR Negative (Negative)
[2024-11-28 07:48] LABS: Add Urine Microscopic? YES; Appearance Urine Cloudy (Clear); Bacteria Urine None Seen /hpf; Bilirubin Urine Negative (Negative); Blood Urine 1+ (Negative); Color Urine Yellow (Yellow); Glucose Urine UA Negative (Negative); Ketones Urine Negative (Negative); Leukocyte Esterase Ur 1+ LEU/UL (Negative); Need Manual Microscopic Reviewed; Nitrate Urine Negative (Negative); Protein Urine 1+ mg/dL (Negative); Specific Grav Ur 1.018 (1.001-1.035); Squamous Epithelial Cell Urine Moderate /hpf (Few); Urobilinogen Urine 0.2 mg/dL (<2.0); WBC Urine 21-50 /hpf (0-3); pH Urine 5.5 (5.0-9.0)
[2024-11-28] MEDS: SODIUM CHLORIDE 0.9% IV 1,000 ML 75 ML IV CONT (10:11)
--- NOTE | 2024-11-28 12:09 | ADMGEN ---
This patient, Vitaly Oreilly, was admitted to Medical Room 247-. Patient/family oriented to hospital policies and general routines including ID bracelet, bed and alarms, visiting hours, pain management, procedures, bathroom and other care routines, personal items, smoking policy, room service/diet, and visiting hours. Information on how to activate the Rapid Response Team has been discussed. Patient/Family are encouraged to report perceived risks to care and to ask questions if they do not understand what they are told or what they should do.
--- NOTE | 2024-11-28 14:17 | PM.IMHP ---
H&P: HPI History of Present Illness Date/Time: 11/28/24 14:17 Chief Complaint: confusion Narrative: This is a 79-year-old male, with history of Alzheimer's dementia, hypertension, frequent UTIs, who presents in the emergency department with this spouse with increasing generalized weakness and altered mental status overnight. Patient has recently been diagnosed with pneumonia and was treated with antibiotics. The patient's spouse states overnight, the patient appeared agitated and hallucinating. She denies any obvious abdominal pain, vomiting or parent nausea. The patient has no significant complaints. In the ED his vitals were stable. Laboratory evaluation showed WBC of 10.7 hemoglobin of 8.8 platelet count of a 149. Creatinine 1.9 electrolytes unremarkable. CRP of 5.2. Urinalysis was positive for UTI. Influenza RSV COVID swab was negative. CT head was negative for any acute findings. Chest x-ray reveals right-sided pleural effusion opacities in the left lower lung. Patient received a dose of cefepime and azithromycin Patient admitted further treatment Review of Systems Review of Systems: - CONSTITUTIONAL: Denies weight loss, fever and chills. - HEENT: Denies changes in vision and hearing - RESPIRATORY: Denies SOB and cough. - CV: Denies palpitations and CP. - GI: Denies abdominal pain, nausea, vomiting and diarrhea. - : Denies dysuria and urinary frequency. - MSK: Denies myalgia and joint pain. - SKIN: Denies rash and pruritus. - NEUROLOGICAL: Denies headache and syncope. - PSYCHIATRIC: Denies recent changes in mood. Denies anxiety and depression. [facility] Past Medical History Medical History Dementia of the Alzheimer's type Intermittent self-catheterization of bladder Cardiomyopathy Recurrent incisional hernia Atrial fibrillation with RVR Heart failure Chronic anemia Vascular dementia Seizures B12 deficiency Depression Gout Osteoarthritis Iron deficiency anemia Benign prostatic hyperplasia Kidney stones Chronic kidney disease, stage 3 Crohn's disease Hyperlipidemia Hypertension Peripheral vascular disease Coronary artery disease Surgical History Surgical History S/P CABG (coronary artery bypass graft) History of bilateral cataract extraction History of lithotripsy History of partial colectomy X2 for to bowel obstructions and fistula secondary to Crohn's disease. History of cholecystectomy History of vascular surgery Bilateral lower extremity stents. History of coronary artery bypass graft Family History Family History Father Myocardial infarct Cerebrovascular accident Mother Breast cancer Sibling Crohn's disease Social History Social History Social History: Surrogate decision maker: Sarah Oreilly, spouse. Code status: Do not resuscitate. Smoking packs per day: 2 Smoking cigarettes per day: 40.0 Years smoked: 25 Smoking pack-years: 50.00 Smoking status: Former smoker Second hand tobacco smoke exposure: No Alcohol intake: never Substance use: never Substance use type: does not use Do You Feel Safe in your Home?: Yes Lack of Transportation: No Lack of Food: Never True Current Housing: I Have Housing Concerned About Future Housing: No Difficulty Paying Gas/Electric Bills: No Difficulty Paying for Meds: No Currently Unemployed: No Education: Decline to Answer Difficulty w/ Childcare or Family Care: No Additional living arrangements comments: The patient lives with his in [place]. Additional occupation/education comments: Retired from [employer]. Spiritual care concerns: No Meds Home Medications and Allergies Home Medications ?Medication ?Instructions ?Recorded ?Confirmed ?Type Lactobacillus 1 cap PO DAILY 11/08/23 11/28/24 History acidophilus-Bifidobac.animalis 2.5 billion cell capsule (Daily Probiotic) allopurinol 100 mg tablet 100 mg PO DAILY 11/08/23 11/28/24 History aspirin 81 mg tablet 81 mg PO DAILY 11/08/23 11/28/24 History atorvastatin 10 mg tablet 10 mg PO DAILY 11/08/23 11/28/24 History cilostazol 100 mg tablet 100 mg PO DAILY 11/08/23 11/28/24 History coenzyme Q10 200 mg capsule (Co 200 mg PO DAILY 11/08/23 11/28/24 History Q-10) escitalopram oxalate 20 mg tablet 20 mg PO DAILY 11/08/23 11/28/24 History multivit with minerals-iron 18 1 tablet PO DAILY 11/08/23 11/28/24 History mg-folic ac 400 mcg-vit K 25 mcg tablet (Adults Multivitamin) Folcaps [place]-3 1 cap PO BID 05/12/24 11/28/24 History fluticasone propionate 50 1 spray intranasal DAILY 05/12/24 11/28/24 History mcg/actuation nasal spray,suspension furosemide 40 mg tablet 40 mg PO DAILY 05/12/24 11/28/24 History cyanocobalamin (vitamin B-12) 1,000 mcg IM MONTHLY 07/02/24 11/28/24 History 1,000 mcg/mL injection solution tamsulosin 0.4 mg capsule 0.4 mg PO QAM #30 caps 07/09/24 11/28/24 Rx donepezil 5 mg tablet (Aricept) 5 mg PO DAILY #90 tabs 08/05/24 11/28/24 Rx levetiracetam 750 mg tablet 750 mg PO Q12HR 30 days #60 tabs 08/05/24 11/28/24 Rx memantine 10 mg tablet 10 mg PO BID #60 tabs 08/05/24 11/28/24 Rx ferrous sulfate 325 mg (65 mg 325 mg PO DAILY@0800 11/28/24 11/28/24 History iron) tablet (FeroSul) metoprolol succinate 100 mg 75 mg PO DAILY 11/28/24 11/28/24 History tablet,extended release 24 hr Allergies Allergy/AdvReac Type Severity Reaction Status Date / Time No Known Allergies Allergy Verified 11/28/24 08:04 Vital Signs Vital Signs - 24 hr 11/28/24 06:11 11/28/24 07:08 11/28/24 07:15 Temperature 98.1 F Pulse Rate 74 92 93 Respiratory Rate 18 18 21 H Blood Pressure 121/70 Pulse Oximetry 95 Oxygen Delivery Room Air 11/28/24 07:30 11/28/24 07:31 11/28/24 07:32 Temperature Pulse Rate 88 93 97 Respiratory Rate 20 13 21 H Blood Pressure 123/79 Pulse Oximetry Oxygen Delivery 11/28/24 07:45 11/28/24 08:00 11/28/24 08:01 Temperature Pulse Rate 93 95 92 Respiratory Rate 23 H 22 H 17 Blood Pressure 124/75 Pulse Oximetry Oxygen Delivery 11/28/24 08:15 11/28/24 08:37 11/28/24 08:40 Temperature Pulse Rate 96 90 88 Respiratory Rate 18 23 H 22 H Blood Pressure 126/83 Pulse Oximetry 97 97 Oxygen Delivery 11/28/24 08:41 11/28/24 08:45 11/28/24 09:00 Temperature Pulse Rate 87 83 89 Respiratory Rate 23 H 22 H 22 H Blood Pressure Pulse Oximetry 97 96 97 Oxygen Delivery 11/28/24 09:01 11/28/24 09:57 11/28/24 10:00 Temperature Pulse Rate 94 95 92 Respiratory Rate 25 H 21 H 21 H Blood Pressure 139/84 Pulse Oximetry 97 Oxygen Delivery 11/28/24 10:01 11/28/24 10:15 11/28/24 10:30 Temperature Pulse Rate 91 93 101 H Respiratory Rate 22 H 22 H 23 H Blood Pressure 125/81 Pulse Oximetry Oxygen Delivery 11/28/24 10:31 11/28/24 14:00 Temperature 97.7 F Pulse Rate 90 91 Respiratory Rate 20 18 Blood Pressure 140/80 127/67 Pulse Oximetry 100 Oxygen Delivery Exam Narrative: GENERAL: Well-developed, well-nourished, and in no acute distress. HEAD: Normocephalic, atraumatic. EYES: PERRLA and EOMI. ENT: Nares clear, no rhinorrhea or epistaxis. Mucous membranes somewhat dry. CHEST: Diminished breath sounds bilaterally no respiratory distress. No wheezes HEART: Regular rate and rhythm. No murmur heard. Normal peripheral pulses. ABDOMEN: Soft, nontender, nondistended, normal active bowel sounds. EXTREMITIES: Normal range of motion. No edema. SKIN: Warm, dry, no rash. NEURO: Alert and oriented x2. No focal deficit. Moving all 4 limbs spontaneously PSYCH: Normal mood and affect. H&P: Results Labs Labs: Short CBC 11/28/24 Range/Units 06:33 WBC 10.7 H (4.5-10.0) K/mm3 Hgb 8.8 L (14.0-18.0) g/dL Hct 27.9 L (42.0-52.0) % Plt Count 149 L (150-375) k/mm3 BMP 11/28/24 06:33 Sodium 139 Potassium 4.0 Chloride 108 H Carbon Dioxide 21 L BUN 18 Creatinine 1.94 H Glucose 95 Calcium 8.2 L Liver Function 11/28/24 Range/Units 06:33 Total Bilirubin 0.6 (0.2-1.3) mg/dL AST 27 (17-59) U/L ALT 31 (6-50) U/L Alkaline Phosphatase 89 (38-126) U/L Albumin 3.2 L (3.5-5.1) g/dL Urine 11/28/24 Range/Units 07:19 Urine Color Yellow (Yellow) Urine Appearance Cloudy H (Clear) Urine pH 5.5 (5.0-9.0) Ur Specific [place] 1.018 (1.001-1.035) Urine Protein 1+ H (Negative) mg/dL Urine Glucose (UA) Negative (Negative) mg/dL Assessment and Plan Assessment and plan (1) Crohn's disease: Qualifiers: Gastrointestinal tract location: unspecified location Digestive disease complication type: without complication Qualified Code(s): K50.90 - Crohn's disease, unspecified, without complications Code(s): K50.90 - Crohn's disease, unspecified, without complications Status: Chronic (2) Chronic kidney disease, stage 3: Qualifiers: Chronic kidney disease stage 3 subtype: stage 3b (GFR 30-44) Qualified Code(s): N18.32 - Chronic kidney disease, stage 3b Code(s): N18.30 - Chronic kidney disease, stage 3 unspecified Status: Chronic (3) Benign prostatic hyperplasia: Qualifiers: Lower urinary tract symptom presence: symptoms present Lower urinary tract symptom detail: urinary obstruction Qualified Code(s): N40.1 - Benign prostatic hyperplasia with lower urinary tract symptoms; N13.8 - Other obstructive and reflux uropathy Code(s): N40.0 - Benign prostatic hyperplasia without lower urinary tract symptoms Status: Chronic (4) Chronic anemia: Code(s): D64.9 - Anemia, unspecified Status: Chronic (5) Altered mental status: Qualifiers: Altered mental status type: unspecified Qualified Code(s): R41.82 - Altered mental status, unspecified Code(s): R41.82 - Altered mental status, unspecified Status: Acute (6) Dementia of the Alzheimer's type: Code(s): G30.9 - Alzheimer's disease, unspecified; F02.80 - Dementia in other diseases classified elsewhere, unspecified severity, without behavioral disturbance, psychotic disturbance, mood disturbance, and anxiety Status: Acute (7) Seizure disorder: Code(s): G40.909 - Epilepsy, unspecified, not intractable, without status epilepticus Status: Acute (8) Hyperlipidemia: Qualifiers: Hyperlipidemia type: mixed hyperlipidemia Qualified Code(s): E78.2 - Mixed hyperlipidemia Code(s): E78.5 - Hyperlipidemia, unspecified Status: Chronic (9) Atrial fibrillation: Code(s): I48.91 - Unspecified atrial fibrillation Status: Chronic (10) Cardiomyopathy: Code(s): I42.9 - Cardiomyopathy, unspecified Status: Chronic (11) Hypertension: Qualifiers: Hypertension type: primary hypertension Qualified Code(s): I10 - Essential (primary) hypertension Code(s): I10 - Essential (primary) hypertension Status: Chronic Plan This is a 79-year-old male, with history of Alzheimer's dementia, hypertension, frequent UTIs, who presents in the emergency department with this spouse with increasing generalized weakness and altered mental status overnight. Patient has recently been diagnosed with pneumonia and was treated with antibiotics. The patient's spouse states overnight, the patient appeared agitated and hallucinating. She denies any obvious abdominal pain, vomiting or parent nausea. The patient has no significant complaints. In the ED his vitals were stable. Laboratory evaluation showed WBC of 10.7 hemoglobin of 8.8 platelet count of a 149. Creatinine 1.9 electrolytes unremarkable. CRP of 5.2. Urinalysis was positive for UTI. Influenza RSV COVID swab was negative. CT head was negative for any acute findings. Chest x-ray showed small right pleural effusion mild haziness left lung nonspecific. Recent CT chest 11/26/2024: Atelectasis versus pneumonia in the lower lobes. Nodule in the left oblique fissure three-month follow-up CT is advised. Enlarged pre care renal lymph node. Cardiomegaly. Patient admitted further treatment UTI: Follow urine culture. Multiple organisms in the past. Will continue on cefepime Abnormal chest x-ray possible pneumonia however these are chronic findings. Recent CT chest showed atelectasis versus pneumonia in the lower lobes. No respiratory symptoms present. Will continue to monitor. Dementia Seizure disorder Atrial fibrillation not on anticoagulation due to anemia on metoprolol B12 deficiency BPH Cardiomyopathy Chronic anemia baseline hemoglobin between 9-10 CKD stage 3 baseline creatinine low 2s currently baseline continue to monitor Coronary artery disease history of CABG Crohn's disease history of partial colectomy Gout Hypertension Hyperlipidemia Intermittent self catheterization of bladder Peripheral vascular disease bilateral lower extremity stents Osteoarthritis Hospitalist MIPS Advance Care Plan I have confirmed that the patient's Advanced Care Plan is present, code status is documented, or surrogate decision maker is listed in patient medical record.: Yes Medication Reconciliation I have utilized all available resources to obtain, update and review the patients current medications (includes all prescriptions, OTC, herbals, cannabis, and nutritional supplements).: Yes
[2024-11-28] MEDS: MEMANTINE 10 MG TABLET PO (17:33)
[2024-11-28] MEDS: OMEGA 3 POLYUNSAT FATTY ACIDS 1 GM CAP PO (17:33)
[2024-11-28] MEDS: TAMSULOSIN HCL 0.4 MG CAPSULE PO (17:33)
[2024-11-28] MEDS: ESCITALOPRAM OXALATE 10 MG TABLET 20 MG PO (17:33)
[2024-11-28] MEDS: allopurinoL 100 MG TABLET PO (17:33)
[2024-11-28] MEDS: MULTIVITAMINS /C LUTEIN (CENTRUM SILVER) TABLET *BKC 1 TAB PO (17:34)
[2024-11-28] MEDS: ATORVASTATIN 10 MG TABLET PO (17:34)
[2024-11-28] MEDS: METOPROLOL SUCCINATE EXT REL 25 MG TABCR 75 MG PO (17:34)
[2024-11-28] MEDS: ASPIRIN 81 MG CHEWABLE TABLET PO (17:34)
[2024-11-28] MEDS: FERROUS SULFATE 325 MG TABLET DR PO (17:34)
[2024-11-28] MEDS: ACIDOPHILUS/BULGARICUS CHEWABLE TABLET 1 TABLET PO (17:36)
[2024-11-28] MEDS: cilostazoL 100 MG TABLET PO (17:36)
[2024-11-28] MEDS: CYANOCOBALAMIN INJ 1,000 MCG/ML VIAL 1000 MCG IM (17:43)
[2024-11-28] MEDS: levETIRAcetam 250 MG TABLET 750 MG PO (21:11)
[2024-11-28] MEDS: CEFEPIME 1 GM/NS 50 ML 1 GM/50 ML BAG IVPB (21:14)
[2024-11-29] MEDS: SODIUM CHLORIDE 0.9% IV 1,000 ML 75 ML IV CONT ×2 (02:32→16:30)
[2024-11-29 05:09] LABS: Basophils Absolute Auto 0.1 K/mm3 (0.0-0.1); Basophils Percent Auto 0.6 % (0.2-1.2); Eosinophils Absolute Auto 0.3 K/mm3 (0-0.3); Immature Granulocyte Absolute 0.03 K/mm3 (0.00-0.031); Immature Granulocyte Percent A 0.3 % (0-0.5); Lymphocytes Absolute Auto 0.78 K/mm3 (0.9-3.2); Lymphocytes Percent Auto 8.7 % (18.3-44.2); Mean Corpuscular Hemoglobin 30.7 pg (26-34); Mean Platelet Volume 9.5 fl (7.4-10.4); Monocytes Absolute Auto 0.8 K/mm3 (0.1-0.6); Monocytes Percent Auto 9.2 % (2.6-8.5); Neutrophils Percent Auto 78.2 % (45.5-73.1); Platelet Count Result 149 k/mm3 (150-375); Red Blood Count 2.93 M/mm3 (4.6-6.20); White Blood Count 8.9 K/mm3 (4.5-10.0)
[2024-11-29 05:19] LABS: Alanine Aminotransferase 29 U/L (6-50); Albumin Level 3.1 g/dL (3.5-5.1); Alkaline Phosphatase 90 U/L (38-126); Anion Gap 9 mmol/L (4-12); Aspartate Amino Transferase 26 U/L (17-59); Bilirubin,Total 0.6 mg/dL (0.2-1.3); Blood Urea Nitrogen 18 mg/dL (9-20); Calcium 8.3 mg/dL (8.4-10.2); Carbon Dioxide 23 mmol/L (22-30); Chloride 109 mmol/L (98-107); Estimated Glomerular Filt Rate 29; Glucose 93 mg/dL (65-110); Magnesium 1.8 mg/dL (1.6-2.3); Potassium 4.1 mmol/L (3.4-5.0); Sodium 141 mmol/L (137-145)
[2024-11-29 06:00] VITALS: BP 141/80; PULSE 111; RESP 18; TEMP 36.6; O2SAT 94
[2024-11-29] MEDS: MEMANTINE 10 MG TABLET PO ×2 (09:06→17:06)
[2024-11-29] MEDS: OMEGA 3 POLYUNSAT FATTY ACIDS 1 GM CAP PO ×2 (09:06→17:07)
[2024-11-29] MEDS: ACIDOPHILUS/BULGARICUS CHEWABLE TABLET 1 TABLET PO (09:07)
[2024-11-29] MEDS: MULTIVITAMINS /C LUTEIN (CENTRUM SILVER) TABLET *BKC 1 TAB PO (09:08)
[2024-11-29] MEDS: levETIRAcetam 250 MG TABLET 750 MG PO ×2 (09:08→20:02)
[2024-11-29] MEDS: CEFEPIME 1 GM/NS 50 ML 1 GM/50 ML BAG IVPB ×2 (09:08→20:02)
[2024-11-29] MEDS: FUROSEMIDE 40 MG TABLET PO (09:08)
[2024-11-29] MEDS: FLUTICASONE PROPIONATE 0.05% NA SPR 16 GM BTL (*BKC) 1 SPRAY NASAL (09:08)
[2024-11-29] MEDS: FERROUS SULFATE 325 MG TABLET DR PO (09:08)
[2024-11-29] MEDS: ASPIRIN 81 MG CHEWABLE TABLET PO (09:13)
[2024-11-29 09:15] VITALS: PULSE 100
[2024-11-29] MEDS: ATORVASTATIN 10 MG TABLET PO (09:15)
[2024-11-29] MEDS: METOPROLOL SUCCINATE EXT REL 25 MG TABCR 75 MG PO (09:15)
[2024-11-29] MEDS: TAMSULOSIN HCL 0.4 MG CAPSULE PO (09:15)
[2024-11-29] MEDS: ESCITALOPRAM OXALATE 10 MG TABLET 20 MG PO (09:15)
[2024-11-29] MEDS: cilostazoL 100 MG TABLET PO (09:15)
[2024-11-29] MEDS: allopurinoL 100 MG TABLET PO (09:15)
--- NOTE | 2024-11-29 12:52 | PM.IMPN ---
Progress Note: A&P Assessment and Plan (1) Crohn's disease: Qualifiers: Gastrointestinal tract location: unspecified location Digestive disease complication type: without complication Qualified Code(s): K50.90 - Crohn's disease, unspecified, without complications Code(s): K50.90 - Crohn's disease, unspecified, without complications Status: Chronic (2) Chronic kidney disease, stage 3: Qualifiers: Chronic kidney disease stage 3 subtype: stage 3b (GFR 30-44) Qualified Code(s): N18.32 - Chronic kidney disease, stage 3b Code(s): N18.30 - Chronic kidney disease, stage 3 unspecified Status: Chronic (3) Benign prostatic hyperplasia: Qualifiers: Lower urinary tract symptom presence: symptoms present Lower urinary tract symptom detail: urinary obstruction Qualified Code(s): N40.1 - Benign prostatic hyperplasia with lower urinary tract symptoms; N13.8 - Other obstructive and reflux uropathy Code(s): N40.0 - Benign prostatic hyperplasia without lower urinary tract symptoms Status: Chronic (4) Chronic anemia: Code(s): D64.9 - Anemia, unspecified Status: Chronic (5) Altered mental status: Qualifiers: Altered mental status type: unspecified Qualified Code(s): R41.82 - Altered mental status, unspecified Code(s): R41.82 - Altered mental status, unspecified Status: Acute (6) Dementia of the Alzheimer's type: Code(s): G30.9 - Alzheimer's disease, unspecified; F02.80 - Dementia in other diseases classified elsewhere, unspecified severity, without behavioral disturbance, psychotic disturbance, mood disturbance, and anxiety Status: Acute (7) Seizure disorder: Code(s): G40.909 - Epilepsy, unspecified, not intractable, without status epilepticus Status: Acute (8) Hyperlipidemia: Qualifiers: Hyperlipidemia type: mixed hyperlipidemia Qualified Code(s): E78.2 - Mixed hyperlipidemia Code(s): E78.5 - Hyperlipidemia, unspecified Status: Chronic (9) Atrial fibrillation: Code(s): I48.91 - Unspecified atrial fibrillation Status: Chronic (10) Cardiomyopathy: Code(s): I42.9 - Cardiomyopathy, unspecified Status: Chronic (11) Hypertension: Qualifiers: Hypertension type: primary hypertension Qualified Code(s): I10 - Essential (primary) hypertension Code(s): I10 - Essential (primary) hypertension Status: Chronic Plan This is a 79-year-old male, with history of Alzheimer's dementia, hypertension, frequent UTIs, who presents in the emergency department with this spouse with increasing generalized weakness and altered mental status overnight. Patient has recently been diagnosed with pneumonia and was treated with antibiotics. The patient's spouse states overnight, the patient appeared agitated and hallucinating. She denies any obvious abdominal pain, vomiting or parent nausea. The patient has no significant complaints. In the ED his vitals were stable. Laboratory evaluation showed WBC of 10.7 hemoglobin of 8.8 platelet count of a 149. Creatinine 1.9 electrolytes unremarkable. CRP of 5.2. Urinalysis was positive for UTI. Influenza RSV COVID swab was negative. CT head was negative for any acute findings. Chest x-ray showed small right pleural effusion mild haziness left lung nonspecific. Recent CT chest 11/26/2024: Atelectasis versus pneumonia in the lower lobes. Nodule in the left oblique fissure three-month follow-up CT is advised. Enlarged pre care renal lymph node. Cardiomegaly. Patient admitted further treatment UTI: Follow urine culture. Multiple organisms in the past. Will continue on cefepime. Follow urine culture blood culture remains negative to date Abnormal chest x-ray possible pneumonia however these are chronic findings. Recent CT chest showed atelectasis versus pneumonia in the lower lobes. No respiratory symptoms present. Will continue to monitor. Dementia Seizure disorder Atrial fibrillation not on anticoagulation due to anemia, on metoprolol B12 deficiency BPH Cardiomyopathy Chronic anemia baseline hemoglobin between 9-10 CKD stage 3 baseline creatinine low 2s currently baseline continue to monitor Coronary artery disease history of CABG Crohn's disease history of partial colectomy Gout Hypertension Hyperlipidemia Intermittent self catheterization of bladder Peripheral vascular disease bilateral lower extremity stents Osteoarthritis Subjective Date/time seen: 11/29/24 12:52 Interval history: No overnight events. Feeling better. Remains afebrile. Review of Systems Review of Systems: All systems reviewed & are unremarkable except as noted in HPI and below Exam Narrative: GENERAL: Well-developed, well-nourished, and in no acute distress. HEAD: Normocephalic, atraumatic. EYES: PERRLA and EOMI. ENT: Nares clear, no rhinorrhea or epistaxis. Mucous membranes somewhat dry. CHEST: Diminished breath sounds bilaterally no respiratory distress. No wheezes HEART: Regular rate and rhythm. No murmur heard. Normal peripheral pulses. ABDOMEN: Soft, nontender, nondistended, normal active bowel sounds. EXTREMITIES: Normal range of motion. No edema. SKIN: Warm, dry, no rash. NEURO: Alert and oriented x2. No focal deficit. Moving all 4 limbs spontaneously PSYCH: Normal mood and affect. Objective Data Vital Signs Vital Signs: Vital Signs - 24 hr 11/28/24 14:00 11/28/24 17:34 11/28/24 20:00 Temperature 97.7 F Pulse Rate 91 125 H Respiratory Rate 18 Blood Pressure 127/67 Pulse Oximetry 100 Oxygen Delivery Room Air 11/28/24 22:00 11/29/24 06:00 11/29/24 08:00 Temperature 98.2 F 97.9 F Pulse Rate 98 111 H Respiratory Rate 18 18 Blood Pressure 133/81 141/80 H Pulse Oximetry 97 94 Oxygen Delivery Room Air 11/29/24 09:15 Temperature Pulse Rate 100 Respiratory Rate Blood Pressure Pulse Oximetry Oxygen Delivery Intake/Output Intake/Output: Intake & Output 11/26/24 11/27/24 11/29/24 11/29/24 23:59 23:59 00:59 23:59 Intake Total 1870 240 Output Total 900 850 Balance 970 -610 Meds/Results Medications: Active Medications Generic Name Dose Route Start Last Admin Trade Name Freq PRN Reason Stop Dose Admin Acetaminophen 650 mg 11/28/24 08:42 Acetaminophen 325 Mg Tablet PO Q4H PRN Mild Pain (1-3) or Fever Allopurinol 100 mg 11/28/24 14:40 11/29/24 09:15 Allopurinol 100 Mg Tablet PO 100 mg DAILY SUZAN Administration Aspirin 81 mg 11/28/24 14:40 11/29/24 09:13 Aspirin 81 Mg Chewable Tablet PO 81 mg DAILY SUZAN Administration Atorvastatin Calcium 10 mg 11/28/24 14:45 11/29/24 09:15 Atorvastatin 10 Mg Tablet PO 10 mg DAILY SUZAN Administration Cilostazol 100 mg 11/28/24 14:45 11/29/24 09:15 Cilostazol 100 Mg Tablet PO 100 mg DAILY SUZAN Administration Cyanocobalamin 1,000 mcg 11/28/24 14:50 11/28/24 17:43 Cyanocobalamin Inj 1,000 Mcg/Ml Vial IM 1,000 mcg Q30D SUZAN Administration Donepezil HCl 5 mg 11/29/24 09:00 Donepezil Hcl 5 Mg Tablet PO DAILY SUZAN Escitalopram Oxalate 20 mg 11/28/24 14:45 11/29/24 09:15 Escitalopram Oxalate 10 Mg Tablet PO 20 mg DAILY SUZAN Administration Ferrous Sulfate 325 mg 11/28/24 14:45 11/29/24 09:08 Ferrous Sulfate [address] PO 325 mg DAILY@0800 SUZAN Administration Fish Oil 1 gm 11/28/24 17:00 11/29/24 09:06 [place] 3 Polyunsat Fatty Acids 1 Gm Cap PO 1 gm BID SUZAN Administration Fluticasone Propionate 1 spray 11/29/24 09:00 11/29/24 09:08 Fluticasone Propionate 0.05% Na Spr 16 Gm Btl (*Bkc) NASAL 1 spray DAILY SUZAN Administration Furosemide 40 mg 11/29/24 09:00 11/29/24 09:08 Furosemide 40 Mg Tablet PO 40 mg DAILY SUZAN Administration Sodium Chloride 1,000 mls @ 75 mls/hr 11/28/24 08:45 11/29/24 02:32 Normal Saline Iv IV CONT 75 mls/hr .[id number] SUZAN Administration Cefepime HCl 1 gm in 50 mls @ 100 mls/hr 11/28/24 21:00 11/29/24 09:08 Maxipime 1 Gm/Ns 50 Ml IVPB 100 mls/hr Q12H SUZAN Administration Lactobacillus Acidophilus 1 tablet 11/28/24 14:50 11/29/24 09:07 Acidophilus/[place] Chewable Tablet PO 1 tablet DAILY SUZAN Administration Levetiracetam 750 mg 11/28/24 21:00 11/29/24 09:08 Levetiracetam 250 Mg Tablet PO 750 mg Q12HR SUZAN Administration Memantine 10 mg 11/28/24 17:00 11/29/24 09:06 Memantine 10 Mg Tablet PO 10 mg BID SUZAN Administration Metoprolol Succinate 75 mg 11/28/24 14:50 11/29/24 09:15 Metoprolol Succinate Ext Rel 25 Mg Tabcr PO 75 mg DAILY SUZAN Administration Miscellaneous Information 1 each 11/29/24 00:01 Clarify Aricept Dosing--Pt Is Supposed To Increase To 10 Mg After 30 Days Of 5 Mg Daily. XX 12/29/24 00:00 [facility]IFY [facility] Multivitamins/Minerals 1 tab 11/28/24 14:50 11/29/24 09:08 Multivitamins /C Lutein (Centrum Silver) Tablet *Bkc PO 1 tab DAILY SUZAN Administration Tamsulosin HCl 0.4 mg 11/28/24 14:50 11/29/24 09:15 Tamsulosin Hcl 0.4 Mg Capsule PO 0.4 mg QAM SUZAN Administration Radiology Results: ITS Impressions Chest X-Ray 11/28/24 06:45 Impression: Small right pleural effusion. Mild haziness left midlung, nonspecific. Correlate for pneumonia. Head CT 11/28/24 08:37 Impression: No intracranial hemorrhage, mass, or acute infarct. Atrophy and chronic white matter changes, as above. Labs Labs: Laboratory Results - last 24 hr 11/29/24 04:34 WBC 8.9 RBC 2.93 L Hgb 9.0 L Hct 29.0 L MCV 99.0 MCH 30.7 MCHC 31.0 L RDW 17.0 H Plt Count 149 L MPV 9.5 Immature Gran % (Auto) 0.3 Neut % (Auto) 78.2 H Lymph % (Auto) 8.7 L [place] % (Auto) 9.2 H Eos % (Auto) 3.0 Baso % (Auto) 0.6 Lymph # (Auto) 0.78 L [place] # (Auto) 0.8 H Eos # (Auto) 0.3 Baso # (Auto) 0.1 Abs Immat Gran (auto) 0.03 Absolute Neuts (auto) 7.0 H Absolute Nucleated RBC 0.000 Nucleated RBC % 0.0 Sodium 141 Potassium 4.1 Chloride 109 H Carbon Dioxide 23 Anion Gap 9 BUN 18 Creatinine 2.18 H Estim Creat Clear Calc Not Reportable Estimated GFR 29 L Glucose 93 Calcium 8.3 L Magnesium 1.8 Total Bilirubin 0.6 AST 26 ALT 29 Alkaline Phosphatase 90 Total Protein 6.0 L Albumin 3.1 L
[2024-11-29 14:00] VITALS: BP 118/63; PULSE 93; RESP 18; TEMP 36.8; O2SAT 100
[2024-11-29] MEDS: LOPERAMIDE HCL 2 MG CAPSULE PO (17:06)
[2024-11-29 22:00] VITALS: BP 126/71; PULSE 67; RESP 18; TEMP 36.4; O2SAT 100
[2024-11-30 05:35] LABS: Basophils Percent Auto 0.5 % (0.2-1.2); Eosinophils Absolute Auto 0.4 K/mm3 (0-0.3); Eosinophils Percent Auto 4.6 % (0-4.4); Hematocrit 27.6 % (42.0-52.0); Hemoglobin 8.9 g/dL (14.0-18.0); Immature Granulocyte Absolute 0.04 K/mm3 (0.00-0.031); Immature Granulocyte Percent A 0.5 % (0-0.5); Lymphocytes Absolute Auto 0.57 K/mm3 (0.9-3.2); Lymphocytes Percent Auto 7.4 % (18.3-44.2); Mean Corpuscular HGB Conc 32.2 g/dl (32-36); Mean Corpuscular Hemoglobin 31.2 pg (26-34); Mean Corpuscular Volume 96.8 fl (80-100); Mean Platelet Volume 9.6 fl (7.4-10.4); Monocytes Absolute Auto 0.7 K/mm3 (0.1-0.6); Platelet Count Result 160 k/mm3 (150-375); Red Blood Count 2.85 M/mm3 (4.6-6.20); Red Cell Distribution Width 16.7 % (11.5-14.5); White Blood Count 7.7 K/mm3 (4.5-10.0)
[2024-11-30 05:46] LABS: Alanine Aminotransferase 26 U/L (6-50); Albumin Level 3.1 g/dL (3.5-5.1); Alkaline Phosphatase 88 U/L (38-126); Anion Gap 8 mmol/L (4-12); Aspartate Amino Transferase 25 U/L (17-59); Bilirubin,Total 0.6 mg/dL (0.2-1.3); Blood Urea Nitrogen 17 mg/dL (9-20); Carbon Dioxide 23 mmol/L (22-30); Chloride 107 mmol/L (98-107); Estimated Glomerular Filt Rate 32; Glucose 84 mg/dL (65-110); Magnesium 1.7 mg/dL (1.6-2.3); Potassium 3.5 mmol/L (3.4-5.0); Sodium 138 mmol/L (137-145)
[2024-11-30 06:00] VITALS: BP 131/71; PULSE 108; RESP 18; TEMP 36.9; O2SAT 95
--- NOTE | 2024-11-30 07:53 | P.CDI_ITS ---
CDI Query Clarification Request Clarification request - UTI has been documented, Intermittent self catheterization of bladder has been documented. Please clarify if UTI is: * due to/associated with self catheterization * not due to/associated with self catheterization * unable to determine Risk Factors: history of Alzheimer's dementia, hypertension, frequent UTIs, who presents in the emergency department with this spouse with increasing generalized weakness and altered mental status overnight. Intermittent self- catheterization of bladder dx. Clinical Indicators: dx UTI Treatment: Babin cath placed on 11/28 <Love Ugalde RN - Last Filed: 11/30/24 08:01> Provider Comments unable to determine <Uriel Ibarra MD - Last Filed: 12/10/24 07:14>
[2024-11-30 08:16] VITALS: BP 134/78; PULSE 117; O2SAT 98
[2024-11-30 08:18] VITALS: PULSE 117
[2024-11-30] MEDS: TAMSULOSIN HCL 0.4 MG CAPSULE PO (08:18)
[2024-11-30] MEDS: ATORVASTATIN 10 MG TABLET PO (08:18)
[2024-11-30] MEDS: MEMANTINE 10 MG TABLET PO ×2 (08:18→17:20)
[2024-11-30] MEDS: METOPROLOL SUCCINATE EXT REL 25 MG TABCR 75 MG PO (08:18)
[2024-11-30] MEDS: FERROUS SULFATE 325 MG TABLET DR PO (08:18)
[2024-11-30] MEDS: FUROSEMIDE 40 MG TABLET PO (08:18)
[2024-11-30] MEDS: ASPIRIN 81 MG CHEWABLE TABLET PO (08:18)
[2024-11-30] MEDS: ESCITALOPRAM OXALATE 10 MG TABLET 20 MG PO (08:18)
[2024-11-30] MEDS: levETIRAcetam 250 MG TABLET 750 MG PO ×2 (08:18→21:25)
[2024-11-30] MEDS: cilostazoL 100 MG TABLET PO (08:18)
[2024-11-30] MEDS: ACIDOPHILUS/BULGARICUS CHEWABLE TABLET 1 TABLET PO (08:18)
[2024-11-30] MEDS: CEFEPIME 1 GM/NS 50 ML 1 GM/50 ML BAG IVPB ×2 (08:18→21:25)
[2024-11-30] MEDS: allopurinoL 100 MG TABLET PO (08:18)
[2024-11-30] MEDS: OMEGA 3 POLYUNSAT FATTY ACIDS 1 GM CAP PO ×2 (08:18→17:20)
[2024-11-30] MEDS: MULTIVITAMINS /C LUTEIN (CENTRUM SILVER) TABLET *BKC 1 TAB PO (08:18)
[2024-11-30] MEDS: FLUTICASONE PROPIONATE 0.05% NA SPR 16 GM BTL (*BKC) 1 SPRAY NASAL (08:20)
[2024-11-30] MEDS: SODIUM CHLORIDE 0.9% IV 1,000 ML 75 ML IV CONT (08:20)
--- NOTE | 2024-11-30 11:44 | PHAR ---
Pharmacy verifed home med: * Use from home * Risankizumab-Rzaa [Skyrizi] 360 mg/2.4 mL (150 mg/mL)- inject 360 mg subcutaneously every 8 weeks
[2024-11-30] MEDS: DONEPEZIL HCL 5 MG TABLET PO ×2 (12:03→21:25)
[2024-11-30] MEDS: [UNRECOGNIZED DRUG - OTHER] 360 EACH SUB-Q (12:03)
[2024-11-30 14:00] VITALS: BP 109/62; PULSE 100; RESP 16; TEMP 36.8; O2SAT 90
[2024-11-30] MEDS: LOPERAMIDE HCL 2 MG CAPSULE PO ×2 (14:32→18:01)
--- NOTE | 2024-11-30 15:25 | P.PNIM_ITS ---
Progress Note: A&P Assessment and Plan (1) Crohn's disease: Qualifiers: Gastrointestinal tract location: unspecified location Digestive disease complication type: without complication Qualified Code(s): K50.90 - Crohn's disease, unspecified, without complications Code(s): K50.90 - Crohn's disease, unspecified, without complications Status: Chronic (2) Chronic kidney disease, stage 3: Qualifiers: Chronic kidney disease stage 3 subtype: stage 3b (GFR 30-44) Qualified Code(s): N18.32 - Chronic kidney disease, stage 3b Code(s): N18.30 - Chronic kidney disease, stage 3 unspecified Status: Chronic (3) Benign prostatic hyperplasia: Qualifiers: Lower urinary tract symptom presence: symptoms present Lower urinary tract symptom detail: urinary obstruction Qualified Code(s): N40.1 - Benign prostatic hyperplasia with lower urinary tract symptoms; N13.8 - Other obstructive and reflux uropathy Code(s): N40.0 - Benign prostatic hyperplasia without lower urinary tract symptoms Status: Chronic (4) Chronic anemia: Code(s): D64.9 - Anemia, unspecified Status: Chronic (5) Altered mental status: Qualifiers: Altered mental status type: unspecified Qualified Code(s): R41.82 - Altered mental status, unspecified Code(s): R41.82 - Altered mental status, unspecified Status: Acute (6) Dementia of the Alzheimer's type: Code(s): G30.9 - Alzheimer's disease, unspecified; F02.80 - Dementia in other diseases classified elsewhere, unspecified severity, without behavioral disturbance, psychotic disturbance, mood disturbance, and anxiety Status: Acute (7) Seizure disorder: Code(s): G40.909 - Epilepsy, unspecified, not intractable, without status epilepticus Status: Acute (8) Hyperlipidemia: Qualifiers: Hyperlipidemia type: mixed hyperlipidemia Qualified Code(s): E78.2 - Mixed hyperlipidemia Code(s): E78.5 - Hyperlipidemia, unspecified Status: Chronic (9) Atrial fibrillation: Code(s): I48.91 - Unspecified atrial fibrillation Status: Chronic (10) Cardiomyopathy: Code(s): I42.9 - Cardiomyopathy, unspecified Status: Chronic (11) Hypertension: Qualifiers: Hypertension type: primary hypertension Qualified Code(s): I10 - Essential (primary) hypertension Code(s): I10 - Essential (primary) hypertension Status: Chronic Plan This is a 79-year-old male, with history of Alzheimer's dementia, hypertension, frequent UTIs, who presents in the emergency department with this spouse with increasing generalized weakness and altered mental status overnight. Patient has recently been diagnosed with pneumonia and was treated with antibiotics. The patient's spouse states overnight, the patient appeared agitated and hallucinating. She denies any obvious abdominal pain, vomiting or parent nausea. The patient has no significant complaints. In the ED his vitals were stable. Laboratory evaluation showed WBC of 10.7 hemoglobin of 8.8 platelet count of a 149. Creatinine 1.9 electrolytes unremarkable. CRP of 5.2. Urinalysis was positive for UTI. Influenza RSV COVID swab was negative. CT head was negative for any acute findings. Chest x-ray showed small right pleural effusion mild haziness left lung nonspecific. Recent CT chest 11/26/2024: Atelectasis versus pneumonia in the lower lobes. Nodule in the left oblique fissure three-month follow-up CT is advised. Enlarged pre care renal lymph node. Cardiomegaly. Patient admitted further treatment UTI: Follow urine culture. Multiple organisms in the past. Will continue on cefepime. Follow urine culture blood culture remains negative to date Abnormal chest x-ray possible pneumonia however these are chronic findings. Recent CT chest showed atelectasis versus pneumonia in the lower lobes. No respiratory symptoms present. Will continue to monitor. Dementia Seizure disorder Atrial fibrillation not on anticoagulation due to anemia, on metoprolol B12 deficiency BPH Cardiomyopathy Chronic anemia baseline hemoglobin between 9-10 CKD stage 3 baseline creatinine low 2s currently baseline continue to monitor Coronary artery disease history of CABG Crohn's disease history of partial colectomy Gout Hypertension Hyperlipidemia Intermittent self catheterization of bladder Babin catheter placed during hospital stay. Remove prior to discharge. Peripheral vascular disease bilateral lower extremity stents Osteoarthritis Subjective Date/time seen: 11/30/24 15:25 Interval history: no new complaints. feels okay. no nausea, vomiting. Review of Systems Review of Systems: All systems reviewed & are unremarkable except as noted in HPI and below Exam Narrative: GENERAL: Well-developed, well-nourished, and in no acute distress. HEAD: Normocephalic, atraumatic. EYES: PERRLA and EOMI. ENT: Nares clear, no rhinorrhea or epistaxis. Mucous membranes somewhat dry. CHEST: Diminished breath sounds bilaterally no respiratory distress. No wheezes HEART: Regular rate and rhythm. No murmur heard. Normal peripheral pulses. ABDOMEN: Soft, nontender, nondistended, normal active bowel sounds. EXTREMITIES: Normal range of motion. No edema. SKIN: Warm, dry, no rash. NEURO: Alert and oriented x2. No focal deficit. Moving all 4 limbs spontaneously PSYCH: Normal mood and affect. Objective Data Vital Signs Vital Signs: Vital Signs - 24 hr 11/29/24 20:00 11/29/24 22:00 11/30/24 06:00 Temperature 97.5 F L 98.5 F Pulse Rate 67 108 H Respiratory Rate 18 18 Blood Pressure 126/71 131/71 Pulse Oximetry 100 95 Oxygen Delivery Room Air 11/30/24 08:10 11/30/24 08:16 11/30/24 08:18 Temperature Pulse Rate 117 H 117 H Respiratory Rate Blood Pressure 134/78 Pulse Oximetry 98 Oxygen Delivery Room Air 11/30/24 14:00 Temperature 98.3 F Pulse Rate 100 Respiratory Rate 16 Blood Pressure 109/62 Pulse Oximetry 90 Oxygen Delivery Intake/Output Intake/Output: Intake & Output 11/27/24 11/29/24 11/29/24 11/30/24 23:59 00:59 23:59 23:59 Intake Total 1870 1820 1590 Output Total 900 4050 4225 Balance 764 -4708 -1376 Meds/Results Medications: Active Medications Generic Name Dose Route Start Last Admin Trade Name Freq PRN Reason Stop Dose Admin Acetaminophen 650 mg 11/28/24 08:42 Acetaminophen 325 Mg Tablet PO Q4H PRN Mild Pain (1-3) or Fever Allopurinol 100 mg 11/28/24 14:40 11/30/24 08:18 Allopurinol 100 Mg Tablet PO 100 mg DAILY SUZAN Administration Aspirin 81 mg 11/28/24 14:40 11/30/24 08:18 Aspirin 81 Mg Chewable Tablet PO 81 mg DAILY SUZAN Administration Atorvastatin Calcium 10 mg 11/28/24 14:45 11/30/24 08:18 Atorvastatin 10 Mg Tablet PO 10 mg DAILY SUZAN Administration Cilostazol 100 mg 11/28/24 14:45 11/30/24 08:18 Cilostazol 100 Mg Tablet PO 100 mg DAILY SUZAN Administration Cyanocobalamin 1,000 mcg 11/28/24 14:50 11/28/24 17:43 Cyanocobalamin Inj 1,000 Mcg/Ml Vial IM 1,000 mcg Q30D SUZAN Administration Donepezil HCl 5 mg 11/30/24 11:25 11/30/24 12:03 Donepezil Hcl 5 Mg Tablet PO 5 mg Q12HR SUZAN Administration Escitalopram Oxalate 20 mg 11/28/24 14:45 11/30/24 08:18 Escitalopram Oxalate 10 Mg Tablet PO 20 mg DAILY SUZAN Administration Ferrous Sulfate 325 mg 11/28/24 14:45 11/30/24 08:18 Ferrous Sulfate [address] PO 325 mg DAILY@0800 SUZAN Administration Fish Oil 1 gm 11/28/24 17:00 11/30/24 08:18 [place] 3 Polyunsat Fatty Acids 1 Gm Cap PO 1 gm BID SUZAN Administration Fluticasone Propionate 1 spray 11/29/24 09:00 11/30/24 08:20 Fluticasone Propionate 0.05% Na Spr 16 Gm Btl (*Bkc) NASAL 1 spray DAILY SUZNA Administration Furosemide 40 mg 11/29/24 09:00 11/30/24 08:18 Furosemide 40 Mg Tablet PO 40 mg DAILY SUZAN Administration Cefepime HCl 1 gm in 50 mls @ 100 mls/hr 11/28/24 21:00 11/30/24 08:18 Maxipime 1 Gm/Ns 50 Ml IVPB 100 mls/hr Q12H SUZAN Administration Lactobacillus Acidophilus 1 tablet 11/28/24 14:50 11/30/24 08:18 Acidophilus/Bulgaricus Chewable Tablet PO 1 tablet DAILY SUZAN Administration Levetiracetam 750 mg 11/28/24 21:00 11/30/24 08:18 Levetiracetam 250 Mg Tablet PO 750 mg Q12HR SUZAN Administration Loperamide HCl 2 mg 11/29/24 16:55 11/30/24 14:32 Loperamide Hcl 2 Mg Capsule PO 2 mg PRN PRN Administration Diarrhea Memantine 10 mg 11/28/24 17:00 11/30/24 08:18 Memantine 10 Mg Tablet PO 10 mg BID SUZAN Administration Metoprolol Succinate 75 mg 11/28/24 14:50 11/30/24 08:18 Metoprolol Succinate Ext Rel 25 Mg Tabcr PO 75 mg DAILY SUZAN Administration Multivitamins/Minerals 1 tab 11/28/24 14:50 11/30/24 08:18 Multivitamins /C Lutein (Centrum Silver) Tablet *Bkc PO 1 tab DAILY SUZAN Administration * Home Med * 360 mg 11/30/24 11:45 11/30/24 12:03 Risankizumab-Rzaa [ SUB-Q 12/30/24 11:44 360 mg Skyrizi] 360 Mg/2.4 Q56D SUZAN Administration Ml (150 Mg/Ml) Tamsulosin HCl 0.4 mg 11/28/24 14:50 11/30/24 08:18 Tamsulosin Hcl 0.4 Mg Capsule PO 0.4 mg QAM SUZAN Administration Radiology Results: ITS Impressions Chest X-Ray 11/28/24 06:45 Impression: Small right pleural effusion. Mild haziness left midlung, nonspecific. Correlate for pneumonia. Head CT 11/28/24 08:37 Impression: No intracranial hemorrhage, mass, or acute infarct. Atrophy and chronic white matter changes, as above. Labs Labs: Laboratory Results - last 24 hr 11/30/24 05:04 WBC 7.7 RBC 2.85 L Hgb 8.9 L Hct 27.6 L MCV 96.8 MCH 31.2 MCHC 32.2 RDW 16.7 H Plt Count 160 MPV 9.6 Immature Gran % (Auto) 0.5 Neut % (Auto) 78.0 H Lymph % (Auto) 7.4 L [place] % (Auto) 9.0 H Eos % (Auto) 4.6 H Baso % (Auto) 0.5 Lymph # (Auto) 0.57 L [place] # (Auto) 0.7 H Eos # (Auto) 0.4 H Baso # (Auto) 0.0 Abs Immat Gran (auto) 0.04 H Absolute Neuts (auto) 6.0 Absolute Nucleated RBC 0.000 Nucleated RBC % 0.0 Sodium 138 Potassium 3.5 Chloride 107 Carbon Dioxide 23 Anion Gap 8 BUN 17 Creatinine 2.01 H Estim Creat Clear Calc Not Reportable Estimated GFR 32 L Glucose 84 Calcium 8.0 L Magnesium 1.7 Total Bilirubin 0.6 AST 25 ALT 26 Alkaline Phosphatase 88 Total Protein 6.0 L Albumin 3.1 L
[2024-11-30 21:23] VITALS: BP 140/80; PULSE 103; RESP 18; TEMP 36.9; O2SAT 96
[2024-12-01 04:44] VITALS: BP 131/84; PULSE 95; RESP 18; TEMP 36.5; O2SAT 99
[2024-12-01 05:27] LABS: Basophils Percent Auto 0.6 % (0.2-1.2); Eosinophils Absolute Auto 0.4 K/mm3 (0-0.3); Eosinophils Percent Auto 6.4 % (0-4.4); Hematocrit 28.5 % (42.0-52.0); Hemoglobin 9.1 g/dL (14.0-18.0); Immature Granulocyte Absolute 0.03 K/mm3 (0.00-0.031); Immature Granulocyte Percent A 0.5 % (0-0.5); Lymphocytes Absolute Auto 0.69 K/mm3 (0.9-3.2); Lymphocytes Percent Auto 10.4 % (18.3-44.2); Mean Corpuscular HGB Conc 31.9 g/dl (32-36); Mean Corpuscular Hemoglobin 31.1 pg (26-34); Mean Corpuscular Volume 97.3 fl (80-100); Mean Platelet Volume 9.5 fl (7.4-10.4); Monocytes Absolute Auto 0.6 K/mm3 (0.1-0.6); Monocytes Percent Auto 9.5 % (2.6-8.5); Neutrophils Absolute Auto 4.8 K/mm3 (1.3-6.7); Neutrophils Percent Auto 72.6 % (45.5-73.1); Platelet Count Result 167 k/mm3 (150-375); Red Blood Count 2.93 M/mm3 (4.6-6.20); Red Cell Distribution Width 16.6 % (11.5-14.5); White Blood Count 6.6 K/mm3 (4.5-10.0)
[2024-12-01 05:37] LABS: Alanine Aminotransferase 27 U/L (6-50); Albumin Level 3.1 g/dL (3.5-5.1); Alkaline Phosphatase 86 U/L (38-126); Anion Gap 8 mmol/L (4-12); Aspartate Amino Transferase 27 U/L (17-59); Bilirubin,Total 0.5 mg/dL (0.2-1.3); Blood Urea Nitrogen 17 mg/dL (9-20); Calcium 8.1 mg/dL (8.4-10.2); Carbon Dioxide 23 mmol/L (22-30); Chloride 108 mmol/L (98-107); Estimated Glomerular Filt Rate 33; Glucose 74 mg/dL (65-110); Magnesium 1.8 mg/dL (1.6-2.3); Potassium 3.4 mmol/L (3.4-5.0); Sodium 139 mmol/L (137-145)
[2024-12-01] MEDS: FLUTICASONE PROPIONATE 0.05% NA SPR 16 GM BTL (*BKC) 1 SPRAY NASAL (09:03)
[2024-12-01] MEDS: CEFEPIME 1 GM/NS 50 ML 1 GM/50 ML BAG IVPB (09:03)
[2024-12-01 09:04] VITALS: PULSE 95
[2024-12-01] MEDS: OMEGA 3 POLYUNSAT FATTY ACIDS 1 GM CAP PO (09:04)
[2024-12-01] MEDS: MEMANTINE 10 MG TABLET PO (09:04)
[2024-12-01] MEDS: DONEPEZIL HCL 5 MG TABLET PO (09:04)
[2024-12-01] MEDS: cilostazoL 100 MG TABLET PO (09:04)
[2024-12-01] MEDS: FUROSEMIDE 40 MG TABLET PO (09:04)
[2024-12-01] MEDS: ASPIRIN 81 MG CHEWABLE TABLET PO (09:04)
[2024-12-01] MEDS: METOPROLOL SUCCINATE EXT REL 25 MG TABCR 75 MG PO (09:04)
[2024-12-01] MEDS: ACIDOPHILUS/BULGARICUS CHEWABLE TABLET 1 TABLET PO (09:04)
[2024-12-01] MEDS: allopurinoL 100 MG TABLET PO (09:04)
[2024-12-01] MEDS: ESCITALOPRAM OXALATE 10 MG TABLET 20 MG PO (09:04)
[2024-12-01] MEDS: TAMSULOSIN HCL 0.4 MG CAPSULE PO (09:04)
[2024-12-01] MEDS: ATORVASTATIN 10 MG TABLET PO (09:04)
[2024-12-01] MEDS: levETIRAcetam 250 MG TABLET 750 MG PO (09:04)
[2024-12-01] MEDS: FERROUS SULFATE 325 MG TABLET DR PO (09:04)
[2024-12-01] MEDS: MULTIVITAMINS /C LUTEIN (CENTRUM SILVER) TABLET *BKC 1 TAB PO (09:04)
--- NOTE | 2024-12-01 10:04 | PM.IMPN ---
Subjective Date/time seen: 12/01/24 10:04 Objective Data Vital Signs Vital Signs: Vital Signs - 24 hr 11/30/24 14:00 11/30/24 20:00 11/30/24 21:23 Temperature 98.3 F 98.4 F Pulse Rate 100 103 H Respiratory Rate 16 18 Blood Pressure 109/62 140/80 Pulse Oximetry 90 96 Oxygen Delivery Room Air 12/01/24 04:44 12/01/24 09:04 Temperature 97.7 F Pulse Rate 95 95 Respiratory Rate 18 Blood Pressure 131/84 Pulse Oximetry 99 Oxygen Delivery Intake/Output Intake/Output: Intake & Output 11/29/24 11/29/24 11/30/24 12/01/24 00:59 23:59 23:59 23:59 Intake Total 1870 1820 2110 200 Output Total 900 4050 4225 800 Balance 970 -2230 -2115 -600 Meds/Results Medications: Active Medications Generic Name Dose Route Start Last Admin Trade Name Freq PRN Reason Stop Dose Admin Acetaminophen 650 mg 11/28/24 08:42 Acetaminophen 325 Mg Tablet PO Q4H PRN Mild Pain (1-3) or Fever Allopurinol 100 mg 11/28/24 14:40 12/01/24 09:04 Allopurinol 100 Mg Tablet PO 100 mg DAILY SUZAN Administration Aspirin 81 mg 11/28/24 14:40 12/01/24 09:04 Aspirin 81 Mg Chewable Tablet PO 81 mg DAILY SUZAN Administration Atorvastatin Calcium 10 mg 11/28/24 14:45 12/01/24 09:04 Atorvastatin 10 Mg Tablet PO 10 mg DAILY SUZAN Administration Cilostazol 100 mg 11/28/24 14:45 12/01/24 09:04 Cilostazol 100 Mg Tablet PO 100 mg DAILY SUZAN Administration Cyanocobalamin 1,000 mcg 11/28/24 14:50 11/28/24 17:43 Cyanocobalamin Inj 1,000 Mcg/Ml Vial IM 1,000 mcg Q30D SUZAN Administration Donepezil HCl 5 mg 11/30/24 11:25 12/01/24 09:04 Donepezil Hcl 5 Mg Tablet PO 5 mg Q12HR SUZAN Administration Escitalopram Oxalate 20 mg 11/28/24 14:45 12/01/24 09:04 Escitalopram Oxalate 10 Mg Tablet PO 20 mg DAILY SUZNA Administration Ferrous Sulfate 325 mg 11/28/24 14:45 12/01/24 09:04 Ferrous Sulfate [address] PO 325 mg DAILY@0800 SUZAN Administration Fish Oil 1 gm 11/28/24 17:00 12/01/24 09:04 [place] 3 Polyunsat Fatty Acids 1 Gm Cap PO 1 gm BID SUZAN Administration Fluticasone Propionate 1 spray 11/29/24 09:00 12/01/24 09:03 Fluticasone Propionate 0.05% Na Spr 16 Gm Btl (*Bkc) NASAL 1 spray DAILY SUZAN Administration Furosemide 40 mg 11/29/24 09:00 12/01/24 09:04 Furosemide 40 Mg Tablet PO 40 mg DAILY SUZAN Administration Cefepime HCl 1 gm in 50 mls @ 100 mls/hr 11/28/24 21:00 12/01/24 09:03 Maxipime 1 Gm/Ns 50 Ml IVPB 100 mls/hr Q12H SUZAN Administration Lactobacillus Acidophilus 1 tablet 11/28/24 14:50 12/01/24 09:04 Acidophilus/Bulgaricus Chewable Tablet PO 1 tablet DAILY SUZAN Administration Levetiracetam 750 mg 11/28/24 21:00 12/01/24 09:04 Levetiracetam 250 Mg Tablet PO 750 mg Q12HR SUZAN Administration Loperamide HCl 2 mg 11/29/24 16:55 11/30/24 18:01 Loperamide Hcl 2 Mg Capsule PO 2 mg PRN PRN Administration Diarrhea Memantine 10 mg 11/28/24 17:00 12/01/24 09:04 Memantine 10 Mg Tablet PO 10 mg BID SUZAN Administration Metoprolol Succinate 75 mg 11/28/24 14:50 12/01/24 09:04 Metoprolol Succinate Ext Rel 25 Mg Tabcr PO 75 mg DAILY SUZAN Administration Multivitamins/Minerals 1 tab 11/28/24 14:50 12/01/24 09:04 Multivitamins /C Lutein (Centrum Silver) Tablet *Bkc PO 1 tab DAILY SUZAN Administration * Home Med * 360 mg 11/30/24 11:45 11/30/24 12:03 Risankizumab-Rzaa [ SUB-Q 12/30/24 11:44 360 mg Skyrizi] 360 Mg/2.4 Q56D SUZAN Administration Ml (150 Mg/Ml) Tamsulosin HCl 0.4 mg 11/28/24 14:50 12/01/24 09:04 Tamsulosin Hcl 0.4 Mg Capsule PO 0.4 mg QAM SUZAN Administration Radiology Results: ITS Impressions Chest X-Ray 11/28/24 06:45 Impression: Small right pleural effusion. Mild haziness left midlung, nonspecific. Correlate for pneumonia. Head CT 11/28/24 08:37 Impression: No intracranial hemorrhage, mass, or acute infarct. Atrophy and chronic white matter changes, as above. Labs Labs: Laboratory Results - last 24 hr 12/01/24 04:40 WBC 6.6 RBC 2.93 L Hgb 9.1 L Hct 28.5 L MCV 97.3 MCH 31.1 MCHC 31.9 L RDW 16.6 H Plt Count 167 MPV 9.5 Immature Gran % (Auto) 0.5 Neut % (Auto) 72.6 Lymph % (Auto) 10.4 L [place] % (Auto) 9.5 H Eos % (Auto) 6.4 H Baso % (Auto) 0.6 Lymph # (Auto) 0.69 L [place] # (Auto) 0.6 Eos # (Auto) 0.4 H Baso # (Auto) 0.0 Abs Immat Gran (auto) 0.03 Absolute Neuts (auto) 4.8 Absolute Nucleated RBC 0.000 Nucleated RBC % 0.0 Sodium 139 Potassium 3.4 Chloride 108 H Carbon Dioxide 23 Anion Gap 8 BUN 17 Creatinine 1.95 H Estim Creat Clear Calc Not Reportable Estimated GFR 33 L Glucose 74 Calcium 8.1 L Magnesium 1.8 Total Bilirubin 0.5 AST 27 ALT 27 Alkaline Phosphatase 86 Total Protein 6.0 L Albumin 3.1 L
[2024-12-01] MEDS: LOPERAMIDE HCL 2 MG CAPSULE PO (11:06)
[2024-12-01 14:00] VITALS: BP 111/62; PULSE 58; RESP 18; TEMP 36.6; O2SAT 96
--- NOTE | 2024-12-01 14:43 | PM.DS ---
DS: Admitting Diagnosis Discharge Date 12/01/2024 Admitting Diagnosis Confusion DS: Discharge Diagnosis Discharge Diagnosis (1) Crohn's disease: Qualifiers: Digestive disease complication type: without complication Gastrointestinal tract location: unspecified location Qualified Code(s): K50.90 - Crohn's disease, unspecified, without complications Code(s): K50.90 - Crohn's disease, unspecified, without complications Status: Chronic (2) Chronic kidney disease, stage 3: Qualifiers: Chronic kidney disease stage 3 subtype: stage 3b (GFR 30-44) Qualified Code(s): N18.32 - Chronic kidney disease, stage 3b Code(s): N18.30 - Chronic kidney disease, stage 3 unspecified Status: Chronic (3) Benign prostatic hyperplasia: Qualifiers: Lower urinary tract symptom detail: urinary obstruction Lower urinary tract symptom presence: symptoms present Qualified Code(s): N40.1 - Benign prostatic hyperplasia with lower urinary tract symptoms; N13.8 - Other obstructive and reflux uropathy Code(s): N40.0 - Benign prostatic hyperplasia without lower urinary tract symptoms Status: Chronic (4) Chronic anemia: Code(s): D64.9 - Anemia, unspecified Status: Chronic (5) Altered mental status: Qualifiers: Altered mental status type: unspecified Qualified Code(s): R41.82 - Altered mental status, unspecified Code(s): R41.82 - Altered mental status, unspecified Status: Acute (6) Dementia of the Alzheimer's type: Code(s): G30.9 - Alzheimer's disease, unspecified; F02.80 - Dementia in other diseases classified elsewhere, unspecified severity, without behavioral disturbance, psychotic disturbance, mood disturbance, and anxiety Status: Acute (7) Seizure disorder: Code(s): G40.909 - Epilepsy, unspecified, not intractable, without status epilepticus Status: Acute (8) Hyperlipidemia: Qualifiers: Hyperlipidemia type: mixed hyperlipidemia Qualified Code(s): E78.2 - Mixed hyperlipidemia Code(s): E78.5 - Hyperlipidemia, unspecified Status: Chronic (9) Atrial fibrillation: Code(s): I48.91 - Unspecified atrial fibrillation Status: Chronic (10) Cardiomyopathy: Code(s): I42.9 - Cardiomyopathy, unspecified Status: Chronic (11) Hypertension: Qualifiers: Hypertension type: primary hypertension Qualified Code(s): I10 - Essential (primary) hypertension Code(s): I10 - Essential (primary) hypertension Status: Chronic DS: Summary Hospital Course Hospital Course: 79-year-old male, with history of Alzheimer's dementia, hypertension, frequent UTIs, who presents in the emergency department with this spouse with increasing generalized weakness and altered mental status overnight. Patient has recently been diagnosed with pneumonia and was treated with antibiotics. The patient's spouse states overnight, the patient appeared agitated and hallucinating. She denies any obvious abdominal pain, vomiting or parent nausea. The patient has no significant complaints. In the ED his vitals were stable. Laboratory evaluation showed WBC of 10.7 hemoglobin of 8.8 platelet count of a 149. Creatinine 1.9 electrolytes unremarkable. CRP of 5.2. Urinalysis was positive for UTI. Influenza RSV COVID swab was negative. CT head was negative for any acute findings. Chest x-ray reveals right-sided pleural effusion opacities in the left lower lung. Patient received a dose of cefepime and azithromycin Patient admitted further treatment Recent CT chest 11/26/2024: Atelectasis versus pneumonia in the lower lobes. Nodule in the left oblique fissure three-month follow-up CT is advised. I assumed care on 12/01/2024: His UC came back negative. No signs of other infectious process. His WBC is 6.6, no signs of fever, shortness of breath or cough indicating pneumonia. As per patient's ED he was not hydrating well. Patient has a history of straight catheterization at least 3 times in a day which was done by his and her . Also she reports the patient has a history of Crohn's disease which make him worse when he gets antibiotics. He was brought into the hospital because of groaning in the night which she says its his usually sign of UTI . His antibiotics has been discontinued. ED precautions given Status at Discharge Cognitive/behavioral status at discharge: Stable Time Spent with Patient Time attestation: Total time spent providing and/or coordinating discharge services: 45 minutes Exam Narrative: GENERAL: Well-developed, well-nourished, and in no acute distress. HEAD: Normocephalic, atraumatic. EYES: PERRLA and EOMI. ENT: Nares clear, no rhinorrhea or epistaxis. Mucous membranes somewhat dry. CHEST: Diminished breath sounds bilaterally no respiratory distress. No wheezes HEART: Regular rate and rhythm. No murmur heard. Normal peripheral pulses. ABDOMEN: Soft, nontender, nondistended, normal active bowel sounds. EXTREMITIES: Normal range of motion. No edema. SKIN: Warm, dry, no rash. NEURO: Alert and oriented x2. No focal deficit. Moving all 4 limbs spontaneously PSYCH: Normal mood and affect. DS: Data Data Completed and Pending Labs on day of discharge: Labs from last 24 hours 12/01/24 04:40 WBC 6.6 RBC 2.93 L Hgb 9.1 L Hct 28.5 L MCV 97.3 MCH 31.1 MCHC 31.9 L RDW 16.6 H Plt Count 167 MPV 9.5 Immature Gran % (Auto) 0.5 Neut % (Auto) 72.6 Lymph % (Auto) 10.4 L [place] % (Auto) 9.5 H Eos % (Auto) 6.4 H Baso % (Auto) 0.6 Lymph # (Auto) 0.69 L [place] # (Auto) 0.6 Eos # (Auto) 0.4 H Baso # (Auto) 0.0 Abs Immat Gran (auto) 0.03 Absolute Neuts (auto) 4.8 Absolute Nucleated RBC 0.000 Nucleated RBC % 0.0 Sodium 139 Potassium 3.4 Chloride 108 H Carbon Dioxide 23 Anion Gap 8 BUN 17 Creatinine 1.95 H Estim Creat Clear Calc Not Reportable Estimated GFR 33 L Glucose 74 Calcium 8.1 L Magnesium 1.8 Total Bilirubin 0.5 AST 27 ALT 27 Alkaline Phosphatase 86 Total Protein 6.0 L Albumin 3.1 L Preliminary micro results at discharge 11/28/24 06:53 Blood Culture - Preliminary Blood 11/28/24 06:33 Blood Culture - Preliminary Blood Discharge Plan Discharge Attending physician on discharge: Rogelio Hughes Discharging Clinician: Rogelio Hughes Patient Disposition: Home, Self-Care Activity: as tolerated Diet: heart healthy Discharge Instructions: Nodule in the left oblique fissure. 3 months Follow-up CT is advised. Check blood pressure 1 to 2 times a day. Record and bring into your doctor for review. Call your doctor if your blood pressure is greater than 180/110 or less than 90/45. Walk with cane or other assist device. Take precautions to avoid falls. Rise slowly from a lying or sitting position. Pause before standing or walking. Contact your doctor or call 911 and come to the Emergency Room if you have any type of trauma, lightheadedness with standing or other worrisome symptoms. Avoid NSAIDs (ibuprofen, naproxen, Aleve). Tylenol is safe to take. Follow-up with your primary care provider in 1-2 weeks. Please call for appointment. Thank you for using [facility] for your health care needs. Patient Instructions: Antibiotic Form, Pain Management (DC) Patient Language: Colombian Stand Alone Forms: General Discharge Information Follow-up/Referrals: Jayne,Preethi Enciso APRN [Primary Care Provider] - (Nodule in the left oblique fissure. 3 months Follow-up CT is advised.) Discharge Medications: Continued fluticasone propionate 50 mcg/actuation spray,suspension 1 spray INTRANASAL DAILY furosemide 40 mg tablet 40 mg PO DAILY Folcaps [place]-3 1 cap PO BID cilostazol 100 mg tablet 100 mg PO DAILY atorvastatin 10 mg tablet 10 mg PO DAILY allopurinol 100 mg tablet 100 mg PO DAILY aspirin 81 mg Tablet 81 mg PO DAILY escitalopram oxalate 20 mg tablet 20 mg PO DAILY coenzyme Q10 [Co Q-10] 200 mg Capsule 200 mg PO DAILY Adults Multivitamin 18 mg iron-400 mcg-25 mcg Tablet 1 tablet PO DAILY Daily Probiotic 2.5 billion cell Capsule 1 cap PO DAILY cyanocobalamin (vitamin B-12) 1,000 mcg/mL solution 1,000 mcg IM MONTHLY tamsulosin 0.4 mg Capsule 0.4 mg PO QAM Qty: 30 0RF metoprolol succinate 100 mg tablet extended release 24 hr 75 mg PO DAILY ferrous sulfate [FeroSul] 325 mg (65 mg iron) tablet 325 mg PO DAILY@0800 Skyrizi 360 mg/2.4 mL (150 mg/mL) wearable injector 360 mg subcut .Every 8 weeks donepezil [Aricept] 5 mg tablet 5 mg PO DAILY Qty: 90 3RF Rx Instructions: 5 mg daily morning for 1 month and then 10 mg daily to continue levetiracetam 750 mg tablet 750 mg PO Q12HR 30 Days Qty: 60 5RF memantine 10 mg tablet 10 mg PO BID Qty: 60 6RF Date of admission: 11/29/24 13:43 Primary Care Provider: JaynePreethi Admitting Provider: Uriel Ibarra Attending physician on admission: Uriel Ibarra Condition: Stable
== END 2024-12-01 16:20 | disposition home or self-care (01) | DRG 948 ==
LOC: ANHED 08:09 → ANH3MEDSUR 09:19 → ANH2MED 11:00
PROVIDERS: Preventive Medicine Aerospace Medicine; Admitting Provider Internal Medicine; Emergency Provider Emergency Medicine; PCP Nurse Practitioner Family; Visit Provider General Practice
DX: R41.82 Altered mental status, unspecified (principal); I42.9 Cardiomyopathy, unspecified; I48.20 Chronic atrial fibrillation, unspecified; I12.9 Hypertensive chronic kidney disease with stage 1 through stage 4 chronic kidney disease, or unspecified chronic kidney disease; N18.30 Chronic kidney disease, stage 3 unspecified; I25.10 Atherosclerotic heart disease of native coronary artery without angina pectoris; I73.9 Peripheral vascular disease, unspecified; E53.8 Deficiency of other specified B group vitamins; D50.9 Iron deficiency anemia, unspecified; E78.5 Hyperlipidemia, unspecified; N40.0 Benign prostatic hyperplasia without lower urinary tract symptoms; M10.9 Gout, unspecified; M19.90 Unspecified osteoarthritis, unspecified site; R56.9 Unspecified convulsions; G30.9 Alzheimer's disease, unspecified; F02.80 Dementia in other diseases classified elsewhere, unspecified severity, without behavioral disturbance, psychotic disturbance, mood disturbance, and anxiety; F32.A Depression, unspecified; Z20.822 Contact with and (suspected) exposure to COVID-19; Z87.442 Personal history of urinary calculi; Z79.82 Long term (current) use of aspirin; Z95.1 Presence of aortocoronary bypass graft; Z95.820 Peripheral vascular angioplasty status with implants and grafts; Z87.891 Personal history of nicotine dependence
CPT/HCPCS: 36415; 70450; 71046; 80053; 81001; 83605; 83735; 85025; 85610; 85730; 86140; 87040; 87086; 87637; 93005; 96365; 96366; 96367; 96375; 97161; 97165; 99285; A9270; G0378; J0692; J0696; J3420; J7030

== ENCOUNTER 2025-01-04 16:55 | Inpatient (IN) | payer MEDICARE, SELFPAY ==
--- NOTE | ~2025-01-04 | CT_ITS ---
CT abdomen pelvis wo con Ordering provider: Eve Del Valle PA-C History: 79 years Male with . UTI, fever, sepsis . Comparison: July 07, 2024 Technique: CT abdomen and pelvis without IV and without oral contrast. Automated exposure control and iterative reconstruction technique were employed. The dose-length product was 258.62 mGy-cm. Findings: VISUALIZED LOWER CHEST: Right basilar atelectasis versus pneumonia with minimal pleural effusion. Nod ule is seen in the right lower lobe area in the oblique fissure measuring 7 mm which is enlarged. Sli ghtly. 3 months follow-up CT is advised. Slight cardiomegaly. Minimal atelectasis in the left lung ba se. Postoperative changes in the mediastinum. He UPPER ABDOMINAL ORGANS: Liver: Normal. Gallbladder: Status post cholecystectomy. Spleen: Normal. Stomach/duodenum: Normal. Pancreas: Normal. Adrenals: Normal. Kidneys: Normal. PELVIC ORGANS: The bladder shows thickened wall. Further evaluation for cystitis is advised. BOWEL AND MESENTERY: Colon: No lesions of diverticulitis. Status post appendectomy.. Small Bowel: Normal. No obstruction. Peritoneum/mesentery: No free air or free fluid. No mesenteric lymphadenopathy. 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 No retroperitoneal lymphadeno lisa. MUSCULOSKELETAL: Superficial soft tissues: The superficial soft tissues are normal. Bones: Age appropriate degenerative changes of the spine. Multiple hypodensities in the pelvic bones which may be metastatic lesions. IMPRESSION: 1. No evidence of appendicitis, colitis or intestinal obstruction. 2. Right basilar atelectasis versus pneumonia with pleural effusion. Left basilar atelectasis versus pneumonia. 3. Nodule in the right lower lobe measuring 6 mm which was not seen in the previous study. 3 months follow-up advised. 4. Thickened wall of the urinary bladder. Evaluation for cystitis advised. 5. Multiple hypodensities in the bones of the pelvis which may indicate metastatic lesions. Clinical correlation advised Reviewed, dictated and finalized at location A. IMPRESSION: 1. No evidence of appendicitis, colitis or intestinal obstruction. 2. Right basilar atelectasis versus pneumonia with pleural effusion. Left basi lar atelectasis versus pneumonia. 3. Nodule in the right lower lobe measuring 6 mm which was not seen in the pre vious study. 3 months follow-up advised. 4. Thickened wall of the urinary bladder. Evaluation for cystitis advised. 5. Multiple hypodensities in the bones of the pelvis which may indicate metast atic lesions. Clinical correlation advised
--- NOTE | ~2025-01-04 | XR_ITS ---
XR chest 1V portable Ordering provider: Eve Del Valle PA-C History: 79 years Male with . sepsis, being treated for UTI . Comparison: November 28, 2024 FINDINGS: MEDIASTINUM: The cardiac silhouette is slightly enlarged. Postoperative changes in the mediastinum. LUNGS: No pneumothorax. Bibasilar opacification suggestive of atelectasis versus pneumonia minimal ri ght pleural effusion.. OTHER: No free air under the diaphragm. IMPRESSION: Bibasilar atelectasis versus pneumonia. Cardiomegaly. Reviewed, dictated and finalized at location A.
--- NOTE | ~2025-01-04 | XR_ITS ---
CHEST RADIOGRAPH CLINICAL HISTORY: cough . COMPARISON: 01/04/2025 TECHNIQUE: Single portable view of the chest. FINDINGS Sternal wires and mediastinal clips are identified, the wires are midline and intact. Right atrial enlargement is redemonstrated. The remainder of the cardiomediastinal silhouette is otherwise unremarkable. Increased right-sided pleural effusion now with adjacent compressive atelectasis when compared with p revious examination. Increased interstitial markings are identified bilaterally, findings suggesting mild pulmonary vascul ar congestion. The remainder of the lungs are clear IMPRESSION: Mild pulmonary vascular congestion with increased right-sided pleural effusion, without focal infiltr ate Reviewed, dictated and finalized at location A. IMPRESSION: Mild pulmonary vascular congestion with increased right-sided pleural effusion, without focal infiltrate
--- OUTSIDE RECORDS SUMMARY | 2025-01-04 17:05 | XMS_ITS | Continuity of Care Document ---
Author Name [facility] Organization [facility] Care Team Providers Care Accounting Lecturer Name Role Phone [facility] Unavailable Unavailable Encounters Combined list of: 1) Encounters from Department of Veterans Affairs facilities going backup to the last 18 months, not all VA inpatient encounters are included; 2) Encounters from the Department of [facility] facilities going backup to 280 months. Location Location Details Encounter Type Encounter Number Reason For Visit Attending Provider ADM Date DC Date Status Disposition Source [facility] Outpatient Encounter [id number] 07[facility]
--- OUTSIDE RECORDS SUMMARY | 2025-01-04 17:06 | XMS_ITS | Encounter Summary ---
Author Organization [facility] Address [address] [place] [address] Care Team Providers Care Concrete Mixer Truck Driver Name Role Phone Kath Shepherd MD Unavailable [phone] Peter Ya MD Unavailable [phone] Vitaly Ledesma MD Unavailable [phone] Joshua Butterfield MD Unavailable [phone] Jeffery Bustillos MD Unavailable [phone] Shimon Schofield MD Unavailable Preethi Godoy NP Primary Care Provider [phone] Encounter Details Date Type Department Care Team (Late st Contact Info) Description 11/24/2024 Results Follow-Up [facility] Primary Care at [address] [address] Preethi Godoy NP [address] [place] [address] [address] [place] [address] Social History Tobacco Use Types [...] on file 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 Gender Identity Not on file Sexual Orientation Not on file 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 Not on file Not on file documented as of this encounter Plan of Treatment Not on file documented as of this encounter Visit Diagnoses Not on filedocumented in this encounter Additional Health Concerns Infection Onset Date Last Indicated Resolved Time COVID: Suspected 12/30/2024 12/30/2024 12/30/2024 7:54 PM CDT documented as of this encounter Care Teams Concrete Mixer Truck Driver Relationship Specialty Start Date End Date Preethi Godoy NP [address] [facility] [address] [place] [address] PCP - General Family Medicine 08/25/24 Kath Shepherd MD [address] [place] [address] Consulting Physician Gastroenterology 07/22/19 Peter Ya MD [address] [place] [address] Shower Maid Cardiology 07/22/19 Vitaly Ledesma MD [address] [place] [address] Consulting Physician Neurology 07/22/19 Joshua Butterfield MD [address] [address] [place] [address] Consulting Physician Urology 07/03/23 Jeffery Bustillos MD [address] [facility] [address] [facility] [address] [place] [address] Consulting Physician Cardiovascular Disease 02/06/24 Shimon Schofield MD [address] [facility] [address] [place] [address] Consulting Physician Vascular Surgery 02/06/24 documented as of this encounter
--- OUTSIDE RECORDS SUMMARY | 2025-01-04 17:06 | XMS_ITS | Encounter Summary ---
Author Organization [facility] Address [address] [place] [address] Phone Care Team Providers Care Flying Squad Salesperson Name Role Phone John Kimbrough MD Primary Care Provider [phone] Kath Shepherd MD Unavailable [phone] Peter Ya MD Unavailable [phone] Vitaly Ledesma MD Unavailable [phone] Anayeli Lee MD Primary Care Provider Joshua Butterfield MD Unavailable [phone] Jeffery Bustillos MD Unavailable [phone] Shimon Schofield MD Unavailable Preethi Godoy NP Primary Care Provider [phone] Encounter Details Date Type Department Care Team (Late st Contact Info) Description 01/13/2018 Orders Only [facility] ProviderOlive MD [address] [place] [address] Social History Tobacco Use Types Packs/Day Years Used Date Smoking Tobacco: Never Smokeless Tobacco: Never Alcohol Use Standard Drinks/Week Comments No 0 (1 standard drink = 0.6 oz pur e alcohol) Sex and Gender Information Value Date Recorded Sex Assigned at Not on file 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 2:24 AM RESIN FILTERER Gender Identity Not on file Sexual Orientation [...] COVID: Suspected 08/21/2021 08/21/2021 08/21/2021 11:38 AM RESIN FILTERER COVID: Suspected 11/14/2024 11/14/2024 11/14/2024 10:49 AM RESIN FILTERER COVID: Suspected 11/14/2024 11/14/2024 11/14/2024 3:33 PM RESIN FILTERER RSV, droplet 11/14/2024 11/14/2024 11/21/2024 3:07 AM RESIN FILTERER COVID: Suspected 12/30/2024 12/30/2024 12/30/2024 7:54 PM CDT documented as of this encounter Care Teams Flying Squad Salesperson Relationship Specialty Start Date End Date John Kimbrough MD [address] [facility] [address] [place] [address] PCP - General 11/08/16 07/02/23 Anayeli Lee MD [address] [place] [address] PCP - General Family Medicine 07/03/23 08/24/24 Preethi Godoy NP [address] [facility] [address] [place] [address] PCP - General Family Medicine 08/25/24 Kath Shepherd MD [address] [place] [address] Consulting Physician Gastroenterology 07/22/19 Peter Ya MD [address] [place] [address] Solar Water Heater Installer Cardiology 07/22/19 Vitaly Ledesma MD [address] [place] [address] Consulting Physician Neurology 07/22/19 Joshua Butterfield MD [address] [address] Consulting Physician Urology 07/03/23 Jeffery Bustillos MD [address] [address] Consulting Physician Cardiovascular Disease 02/06/24 Shimon Schofield MD [address] [address] Consulting Physician Vascular Surgery 02/06/24 documented as of this encounter
--- OUTSIDE RECORDS SUMMARY | 2025-01-04 17:06 | XMS_ITS | Clinical Summary ---
Author Organization [facility] Address [address] [place] [address] Care Team Providers Care Jewelry Model Maker Name Role Phone Unavailable Primary Care Provider [...] Vaccines (1 of 2) 1996 Pneumococcal Vaccine: 50+ Ye ars (1 of 1 - PCV) [...]
--- OUTSIDE RECORDS SUMMARY | 2025-01-04 17:06 | XMS_ITS | Referral Summary ---
Author Organization [facility] Address [address] [place] [address] Care Team Providers Care Freight And Passenger Agent Name Role Phone Kath Shepherd MD Unavailable Peter Ya MD Unavailable Aziza Ledesma MD Unavailable Joshua Butterfield MD Unavailable Jeffery Bustillos MD Unavailable Shimon Schofield MD Unavailable Preethi Godoy NP Primary Care Provider [phone] Encounters Date Type Department Care Team Description 01/04/2025 Nurse Triage [facility] Primary Care at [address] [phone] Preethi Godoy NP 01/01/2025 Results Follow-Up [facility] Care at [address] [phone] Brie Mandel NP 12/30/2024 11:55 PM CDT - 12/30/2024 11:59 PM CDT Hospital Encounter [place] [id number] [place], [place] [id number] Acute cystitis with hematuria; Nasopharyngitis acute Discharge Disposition: Discharge to home or self care 12/30/2024 7:30 PM CDT Office Visit [facility] Convenient Care at [address] [phone] Gladys Valdovinos NP Acute cystitis with hematuria (Primary Dx); Nasopharyngitis acute 11/29/2024 Results Follow-Up [facility] Primary Care at [address] [phone] Preethi Godoy, PHOTOVOLTAIC TECHNICIAN Pulmonary nodule 1 cm or greater in diameter (Primary Dx) 11/29/2024 Orders Only [facility] Primary Care at [address] [phone] Preethi Godoy, PHOTOVOLTAIC TECHNICIAN Abnormal CXR; Pneumonia of both lungs due to infectious organism, unspecified part of lung; Cough, unspecified type; Fever, unspecified fever cause 11/26/2024 Orders Only [facility] Primary Care at [address] [phone] Preethi Godoy, PHOTOVOLTAIC TECHNICIAN 11/26/2024 Telephone [facility] Primary Care at [address] [phone] Preethi Godoy PHOTOVOLTAIC TECHNICIAN Medical Question/Miscellaneo us 11/26/2024 Orders Only [facility] Primary Care at [address] [phone] Preethi Godoy, PHOTOVOLTAIC TECHNICIAN 11/26/2024 Telephone [facility] Primary Care at [address] [phone] Preethi Godoy PHOTOVOLTAIC TECHNICIAN Symptom Based Call 11/24/2024 Results Follow-Up [facility] Primary Care at [address] [phone] Preethi Godoy PHOTOVOLTAIC TECHNICIAN 11/23/2024 1:22 PM [employer] - 11/23/2024 11:59 PM [employer] Hospital Encounter [address] [address] Benign hypertension with stage 3a chronic kidney disease (HCC); Iron deficiency anemia due to chronic blood loss Discharge Disposition: Discharge to home or self care 11/23/2024 1:30 PM [employer] Lab [facility] Outpatient Lab at [address] [phone] Pneumonia due to infectious organism, unspecified laterality, unspecified part of lung (Primary Dx) 11/23/2024 1:30 PM [employer] Ancillary Procedure [facility] Imaging at [address] [phone] Pneumonia due to infectious organism, unspecified laterality, unspecified part of lung 11/23/2024 12:30 PM [employer] Office Visit [facility] Primary Care at [address] [phone] Preethi Godoy NP Pneumonia due to infectious organism, unspecified laterality, unspecified part of lung (Primary Dx); Iron deficiency anemia due to chronic blood loss; Benign hypertension with stage 3a chronic kidney disease (HCC); Persistent atrial fibrillation (HCC) 11/16/2024 Orders Only [facility] Convenient Care at [address] [phone] Gladys Valdovinos NP Lower respiratory infection (e.g., bronchitis, pneumonia, pneumonitis, pulmonitis) (Primary Dx) 11/16/2024 2:00 PM [employer] Ancillary Procedure [facility] Imaging at [address] [phone] Acute cough 11/14/2024 Results Follow-Up [facility] Con[facility]ient Care at [address] [phone] Mandy Hernandez PA 11/14/2024 11:00 AM [employer] - 11/14/2024 11:59 PM [employer] Hospital Encounter [address] [address] Acute cough Discharge Disposition: Discharge to home or self care 11/14/2024 10:00 AM [employer] Office Visit [facility] Convenient Care at [address] [phone] Mandy Hernandez PA Acute cough (Primary Dx) 11/10/2024 Orders Only [facility] Primary Care at [address] [phone] Preethi Godoy NP 11/03/2024 Orders Only [facility] Gastroenterology [address] [facility] Advanced Medicine 12th [place] [address] [place] [address] Kath Shepherd MD 10/25/2024 Telephone [facility] Gastroenterology [address] [place] [address] [place] [address] Jeannine Newman RN Med Management ([facility] PAP for 2024) 10/21/2024 10:58 AM [employer] Anesthesia Event [facility] Disease [place] [address] [facility] [address] [place] [address] Danyell Maher MD 10/21/2024 10:30 AM [employer] - 10/21/2024 11:15 AM [employer] Surgery [facility]ive [address] [address] Kath Shepherd MD COLON BIOPSY 10/21/2024 9:15 AM [employer] - 10/21/2024 12:33 PM [employer] Hospital Encounter [facility] [place] [phone] [address] Kath Shepherd MD Crohn's disease of both small and large intestine with other complication (HCC) Discharge Disposition: Discharge to home or self care 10/20/2024 Telephone [facility] Primary Care at [address] [phone] Preethi Godoy NP Medical Question/Miscellaneo us 10/14/[address] [facility] [address] [place] [phone] Stacey Crane, RN 10/14/[address] [facility] [address] [place] [phone] Stacey Crane, RN 10/14/[address] [facility] [address] [place] [phone] Stacey Crane, RN GI PROCEDURE 7 DAY PRE CALL from Last 3 Months Allergies No known active allergies Medications coenzyme Q10 10 mg capsule Take 2 capsules (20 mg total) by mouth every morning Active ixklw-0-ggs-ep a-dpa-fish oil 1,050-1,200 mg capsule Take 1 [...] daily 90 tablet 1 12/28/19 25 Active cefdinir (OMNICEF) 300 mg capsuleIndicat ions:Urinary Tract/Genitour inary Infection Take 1 capsule (300 mg total) by mouth daily for 7 days 7 capsule 12/31/19 25 025 Active amLODIPine (NORVASC) 5 mg tablet Take [...] tablet 3 10/03/19 24 025 Discontinued(R eorder) escitalopram (LEXAPRO) 20 mg tabletIndicati ons: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 [id number]/placebo (/[id number]) capsule 4 capsuleIndications:Crohn' s disease of both small and large intestine with other complication (HCC) 4 capsule oral 2 times daily 05/21/2022 Active [facility] BMS-[id number]/placebo (/[id number]) capsule 4 capsuleIndications:Crohn' s disease of both small and large intestine with other complication (HCC) 4 capsule oral 2 times daily 06/18/2022 Active [facility] [id number]/placebo (/[id number]) capsule 4 capsuleIndications:Crohn' s disease of both small and large intestine with other complication (HCC) 4 capsule oral 2 times daily 07/09/2022 Active [facility] BMS-[id number]/placebo (/[id number]) capsule 4 capsuleIndications:Crohn' s disease of both small and large intestine with other complication (HCC) 4 capsule oral 2 times daily 08/07/2022 Active [facility] BMS-[id number]/placebo (/[id number]) capsule 4 capsuleIndications:Crohn' s disease of both small and large intestine with other complication (HCC) 4 capsule oral 2 times daily 09/19/2022 Active [facility] BMS-[id number]/placebo (/[id number]) capsule 4 capsuleIndications:Crohn' s disease of both [...] modification Assessment & Plan (10/03/2023 1:12 PM [employer]): Chronic. Due to prior peripheral arterial disease. [...] urologist Assessment & Plan (10/03/2023 1:12 PM [employer]): Chronic. Continue medication care per Urology Assessment & Plan (07/03/2023 5:22 PM CDT): Follows with [facility] Dr. Butterfield. Patient on finasteride and does intermittent straight catheterization Protein-calorie malnutrition, mild 07/03/2023 Overview (07/03/2023): Patient with low BMI. Less protein level was low. Monitor weight Assessment & Plan (02/06/2024 4:55 PM CDT): Patient has had borderline protein calorie malnutrition. Monitor his protein levels on labs. Encourage adequate nutrition. Avoid additional weight loss Assessment & Plan (10/03/2023 1:12 PM [employer]): Chronic. BMI remains at the lower end arrange. Encouraged adequate nutrition. Monitor History of gout 07/03/2023 Assessment & Plan (02/06/2024 4:55 PM CDT): Chronic. Denies history of recent flares. Continue allopurinol for prophylaxis. Check uric acid Assessment & Plan (10/03/2023 1:12 PM [employer]): Chronic. Denies any history of gout in [...] 03/14/2023 Assessment & Plan (10/03/2023 1:13 PM [employer]): Chronic. May occasionally increase in size. Minimal pain. Has deferred elective repair in the past Persistent atrial fibrillation 12/04/2021 Assessment & Plan (11/23/2024 1:36 PM [employer]): Rate controlled in office, continuing follow up with Cardiology. Assessment & Plan (03/01/2024 7:51 AM CDT): Stable continue metoprolol. Assessment & Plan (02/06/2024 4:55 PM CDT): Chronic. Controlled rate with metoprolol. Continue. Continue aspirin for stroke prophylaxis Assessment & Plan (10/03/2023 1:12 PM [employer]): Chronic. Continue risk factor modification. Continue ASA [...] Monitor Assessment & Plan (10/03/2023 1:11 PM [employer]): Chronic. Denies significant worsening. No agitation recently. [...] They denies significant agitation Cerebral amyloid angiopathy ([facility]) 02/15/2020 Assessment & Plan (02/06/2024 4:54 PM CDT): Chronic. Memory has worsened slightly in the last year. He does have some fluctuations at times. No real agitation. Target good blood pressure control. Continue aspirin for his other issues. Would be cautious with more aggressive anticoagulation given history of amyloid angiopathy Assessment & Plan (10/03/2023 1:11 PM [employer]): Chronic. Denies any progression of symptoms Assessment & Plan (07/03/2023 5:18 PM CDT): Chronic. Control blood pressure and modify risk factors as able. Continue aspirin given AFib but would be cautious with stronger anticoagulants given increased bleeding risk with cerebral amyloid angiopathy Peripheral artery disease 09/10/2019 Overview (09/10/2019): Added automatically from request for surgery [id number] Assessment & Plan (09/03/2024 10:57 AM [employer]): Stable lower extremity occlusive disease. Continue risk [...] duplex. Assessment & Plan (10/03/2023 1:11 PM [employer]): Chronic. Denies recent claudication symptoms. Continue ASA, statin and Pletal Assessment & Plan (07/03/2023 5:22 PM CDT): Chronic. 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 Denies current sores on his feet. Follows with Podiatry in [place]. On cilostazol Iron deficiency anemia due to [...] 02/17/2019 Assessment & Plan (11/23/2024 1:35 PM [employer]): BP normal in office, continuing current regimen. [...] dehydrate Assessment & Plan (10/03/2023 1:10 PM [employer]): Chronic. Blood pressure controlled. Continue current prescription [...] (01/26/2019): Added automatically from request for surgery [id number] Assessment & Plan (02/06/2024 4:52 PM CDT): Chronic. Disease has been stable. Minimal symptoms. He does have to be cautious with eating too many fruits and vegetables as he notes this does cause some GI distress. He remains controlled with Skyrezi and hydroxychloroquine. He will continue Assessment & Plan (10/03/2023 1:10 PM [employer]): Chronic. Symptomatically improved per patient. Continue medication and care per GI Assessment & Plan (07/03/2023 5:20 PM CDT): Chronic. Follows with Gastroenterology. On scar oz and sulfasalazine. Continue medication and care per them CAD (coronary artery disease) 12/04/2018 Assessment & Plan (09/03/2024 10:57 AM [employer]): Stable continue ASA and Lasix Assessment & Plan (02/06/2024 4:51 PM CDT): Chronic. Denies chest pain. Continue risk factor modification with statin, aspirin, blood pressure control. Target LDL less than 70 Assessment & Plan (10/03/2023 1:10 PM [employer]): Chronic. Denies chest pain. Follows with cardiology. [...] 12/30/2017 Assessment & Plan (08/25/2024 4:06 PM [employer]): Updated labs ordered, Hemoglobin was 9 in [...] infusions Assessment & Plan (10/03/2023 1:10 PM [employer]): Chronic. Follows with GI and Hematology. Has received iron infusions. Often does B12 injections Assessment & Plan (07/03/2023 5:15 PM CDT): Chronic. Follows with GI and Hematology. Received iron infusions Hypercholesterolemia 02/05/2011 Assessment & Plan (09/03/2024 10:57 AM [employer]): Stable continue statin therapy. Assessment & Plan (03/01/2024 7:50 AM CDT): Stable continue statin therapy. Assessment & Plan (02/06/2024 4:53 PM CDT): Chronic. Tolerates atorvastatin. Continue. Check cholesterol level and adjust for an LDL goal of at least less than 70 with optimal less than 55 Assessment & Plan (10/03/2023 1:10 PM [employer]): Chronic. Tolerates current prescription medication. 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 [employer] Not on file Not on file Not on file Last Filed Vital Signs Vital Sign Reading Time Taken Comments Blood Pressure 120/62 12/30/2024 7:15 PM CDT Pulse 102 12/30/2024 7:15 PM CDT Temperature 36.8 C (98.2 F) 12/30/2024 7:15 PM CDT Respiratory Rate 16 12/30/2024 7:15 PM CDT Oxygen Saturation 96% 12/30/2024 7:15 PM CDT Inhaled Oxygen Concentration - - Weight 63.5 kg (140 lb) 12/30/2024 7:15 PM CDT Height 177.8 cm (5' 10 ) 11/23/2024 12:30 PM [employer] Body Mass Index 20.09 11/23/2024 12:30 PM [employer] Plan of Treatment Not on file Medical Devices Implanted Type Area Record Filing Clerk Device Identifier Shelf Expiration Date Model / Serial / Lot [employer] [id number] Synergy 3.5mm 24mm 144cm Radiopaque 1 Access Port Inflation Lumen - [id number] - [id number] Implanted:Qty: 1 on 03/26/2019 by Alban Santana MD at [facility] [employer] 12/09/2020 [id number] / [id number] / [id number] Procedures Procedure Name Priority Date/Time Associated Diagnosis Comments POC INFLUENZA A/B, COVID-19 ANTIGEN Routine 12/30/2024 7:53 PM CDT Nasopharyngitis acute THROAT CULTURE Routine 12/30/2024 7:47 PM CDT Nasopharyngitis acute POCT RAPID STREP Routine 12/30/2024 7:46 PM CDT Nasopharyngitis acute POCT URINALYSIS DIPSTICK Routine 12/30/2024 7:41 PM CDT Acute cystitis with hematuria URINE CULTURE Routine 12/30/2024 7:30 PM CDT Acute cystitis with hematuria NM BRAIN IMAGING SPECT/CT Schedule Routine, Read Routine (OP Routine) 11/28/2024 10:49 AM CDT XR CHEST 2 VIEWS W APICAL LORDOTIC 3 VIEWS Schedule Routine, Read Routine (OP Routine) 11/28/2024 10:[address] CHEST WO CONTRAST Schedule Routine, Read Routine (OP Routine) 11/26/2024 10:46 AM [employer] Abnormal CXR Pneumonia of both lungs due to infectious organism, unspecified part of lung Cough, unspecified type Fever, unspecified fever cause XR CHEST PA LATERAL 2 VIEWS Schedule Routine, Read Routine (OP Routine) 11/23/2024 1:30 PM [employer] Pneumonia due to infectious organism, unspecified laterality, unspecified part of lung EGFR Routine 11/23/2024 1:22 PM [employer] Benign hypertension with stage 3a chronic kidney disease (HCC) DIFFERENTIAL AUTO Routine 11/23/2024 1:2 2 PM [employer] Iron deficiency anemia due to chronic blood loss Benign hypertension with stage 3a chronic kidney disease (HCC) CBC WITH AUTO DIFFERENTIAL Routine 11/23/2024 1:22 PM [employer] Iron deficiency anemia due to chronic blood loss Benign hypertension with stage 3a chronic kidney disease (HCC) IRON Routine 11/23/2024 1:22 PM [employer] Iron deficiency anemia due to chronic blood loss BASIC METABOLIC PANEL Routine 11/23/2024 1:22 PM [employer] Benign hypertension with stage 3a chronic kidney disease (HCC) XR CHEST PA LATERAL 2 VIEWS Schedule YULIANA, Read YULIANA (Appt Today, Awaiting Results) 11/16/2024 2:07 PM [employer] Acute cough INFLUENZA A/B, RSV, AND COVID-19 PCR Routine 11/14/2024 11:00 AM [employer] Acute cough POC INFLUENZA A/B, COVID-19 ANTIGEN Routine 11/14/2024 10:47 AM [employer] Acute cough SURGICAL PATHOLOGY Routine 10/21/2024 11 :18 AM [employer] Crohn's disease of both small and large intestine with other complication (HCC) COLON BIOPSY 10/21/2024 10:58 AM [employer] Crohn's disease of both small and large intestine with other complication (HCC) COLONOSCOPY 10/21/2024 10:56 AM [employer] CTA ABDOMEN PELVIS W WO CONTRAST Schedule Routine, Read Routine (OP Routine) 02/18/2024 12:14 PM CDT PVD (peripheral vascular disease) HEPATITIS C ANTIBODY Routine 02/06/2024 11:23 AM CDT Encounter for hepatitis C screening test for low risk patient from Last 3 Months or Most Recently Relevant to Health Maintenance Results * POC Influenza A/B, COVID-19 antigen (12/30/2024 7:53 PM CDT) Influenza A Ag, POC Negative Negative [facility] Influenza B Ag, POC Negative Negative [facility] COVID-19 Ag POC Presumptive Negative Presumptive Negative, Invalid [facility] Nasal 12/30/2024 7:53 PM CDT us Gladys Valdovinos NP POINT OF CARE TEST ORDERABLES Final Result [facility] [address] [place] [address] * Throat culture Throat (12/30/2024 7:47 PM CDT) Report Final Report: No growth of pathogens. Comment:Testing performed by : [facility], [address] [place]., [address] Throat 12/30/2024 7:47 PM CDT 12/31/2024 2:01 AM CDT Narrative [facility] - 01/01/2025 2:34 AM CDT Testing performed by [facility] Microbiology Laboratory ([phone]). us Gladys Valdovinos NP LAB MICROBIOLOGY - GENERAL ORD ERABLES Final Result [facility] [id number] [address] Department [place] [address] * POCT rapid strep A (12/30/2024 7:46 PM CDT) Pathologist [facility] Rapid Strep A, POC Negative Negative Swab 12/30/2024 7:46 PM CDT us Gladys Valdovinos NP POINT OF CARE TEST ORDERABLES Final Result * (ABNORMAL) POCT urinalysis dipstick (12/30/2024 7:41 PM CDT) Color, Urine, POC Yellow Clarity, ur, POC Cloudy(A) Clear Glucose, ur, POC Negative Negative MG/DL Bilirubin, ur, POC Negative Negative, Small, Moderate, Large Ketones, ur, POC Negative Negative Specific [place], POC 1.020 1.003 - 1.030 Blood, ur, POC Small(A) Negative pH, ur, POC 5.5 5.0 - 8.0 Protein, ur, POC Negative Negative Urobilinogen, urine, POC 0.2 0.2 - 1.0 mg/dL Nitrite, ur, POC Positive(A) Negative Leukocytes, ur, POC Moderate(A) Negative Lot Number [id number] Urine 12/30/2024 7:41 PM CDT Gladys Valdovinos NP POINT OF CARE TEST ORDERABLES Final Result * (ABNORMAL) Urine culture Urine, clean voided (12/30/2024 7:30 PM CDT) Report Final Report: Greater than or equal to 100,000 colonies/mL of Klebsiella pneumoniae (.) Comment:Testing performed by : [facility], [address] [place]., [address] Organism KLEBSIELLA PNEUMONIAE [facility] Urine, clean voided 12/30/2024 7:30 PM CDT 12/31/2024 2:01 AM CDT Narrative [facility] BROWNLEE - 01/02/2025 8:39 AM CDT Testing performed by [facility] ([phone]) Organism Antibiotic Method Susceptibility Klebsiella pneumoniae Ampicillin INTERPRETATION Resistant Klebsiella pneumoniae Cefazolin INTERPRETATION Susceptible Klebsiella pneumoniae Nitrofurantoin INTERPRETATION Susceptible Klebsiella pneumoniae Gentamicin INTERPRETATION Susceptible Klebsiella pneumoniae Trimethoprim with Sulfamethoxazole INTERPRETATION Susceptible Klebsiella pneumoniae Meropenem INTERPRETATION Susceptible Klebsiella pneumoniae Cefepime INTERPRETATION Susceptible Klebsiella pneumoniae Ciprofloxacin INTERPRETATION Susceptible Klebsiella pneumoniae Ceftazidime INTERPRETATION Susceptible Klebsiella pneumoniae Ceftriaxone INTERPRETATION Susceptible Klebsiella pneumoniae Piperacillin/Tazobactam INTERPRE TATION Susceptible Klebsiella pneumoniae Cephalexin INTERPRETATION Susceptible Klebsiella pneumoniae Cefuroxime-axetil INTERPRETATION Susceptible Klebsiella pneumoniae Cefdinir INTERPRETATION Susceptible Gladys Valdovinos NP LAB MICROBIOLOGY - GENERAL ORD ERABLES Final Result [facility] [id number] [address] Department [place] [address] * NM Brain Imaging SPECT/CT (11/28/2024 10:49 AM CDT) Anatomical Region Laterality Modality Head and Neck N/A Nuclear Medicine Historical Provider MD DOWNS NM PROCEDURES Final R esult * XR Chest 2 Views W Apical Lordotic 3 Views (11/28/2024 10:48 AM CDT) Anatomical Region Laterality Modality Body, Chest N/A Radiographic Mariangel ging us Historical Provider MD DOWNS XR PROCEDURES Final R esult * CT Chest WO Contrast (11/26/2024 10:46 AM [employer]) Anatomical Region Laterality Modality Body N/A Computed Tomogra phy us Preethi Godoy DONALD IMG CT PROCEDURES Final Result * XR Chest PA Lateral 2 Views (11/23/2024 1:30 PM [employer]) Anatomical Region Laterality Modality Body, Chest N/A Digital Radiogra phy 11/26/2024 2:09 PM [employer] Narrative 11/26/2024 2:11 PM [employer] EXAM DESCRIPTION: XR CHEST PA LATERAL 2 [...] bilateral pleural effusion with adjacent airspace opacities, [id number]-left. Right mid chest linear density , linear [...] signed by Buck DOUGLAS T: Report ID: [id number] Reading Location: [id number] Procedure Note Buck Oleary, DO - 11/26/2024 [...] Small bilateral pleural effusionwith adjacent airspace opacities, [id number]-left. Right mid chestlinear density , linear atelectasis [...] signed by Buck DOUGLAS T: Report ID: [id number] Reading Location: [place] [address] Preethi Godoy NP IMG XR PROCEDURES Final Result * (ABNORMAL) eGFR (11/23/2024 1:22 PM [employer]) eGFR 34(L) >=60 mL/min/1. 73 m2 Comment: [...] last reviewed 2021. Blood 11/23/2024 1:22 PM [employer] 11/24/2024 11:14 AM [employer] us Preethi Godoy PHOTOVOLTAIC TECHNICIAN LAB BLOOD ORDERABLES Final Resul t [facility] [id number] [address] Department [place] [address] * (ABNORMAL) Differential, auto (11/23/2024 1:22 PM [employer]) Neutrophil abs 6.3 1.5 - 6.5 K/cumm [...] revised on 2017. Blood 11/23/2024 1:22 PM [employer] 11/24/2024 11:08 AM [employer] us Preethi Godoy PHOTOVOLTAIC TECHNICIAN LAB BLOOD ORDERABLES Final Resul t Performing Organization Address City/State/RUST Co de Phone Number BANNERYUMIKO [address] Pop [place] [address] * (ABNORMAL) CBC with auto differential (11/23/2024 1:22 PM [employer] MIXER) WBC 8.4 3.8 - 9.9 K/cumm Hgb [...] K/cumm [facility] Blood 11/23/2024 1:22 PM [employer] M[employer]ER 11/24/2024 11:08 AM [employer] M[employer]ER us Preethi Godoy PHOTOVOLTAIC TECHNICIAN LAB BLOOD ORDERABLES Final Resul t Performing Organization Address City/State/[place]UST Co de Phone Number [place] [address] [address] [place] [address] * (ABNORMAL) Iron level (11/23/2024 1:22 PM [employer]ER) Pathologist [facility] Iron 47(L) 50 - 150 mcg/dl Blood 11/23/2024 1:22 PM [employer] M[employer]ER 11/24/2024 11:08 AM [employer] MIXER us Preethi Godoy PHOTOVOLTAIC TECHNICIAN LAB BLOOD ORDERABLES Final Resul t Performing Organization Address [facility] de Phone Number [place] [address] [place] [address] * (ABNORMAL) Basic metabolic panel (11/23/2024 1:22 PM [employer]) Pathologist [facility] Sodium 141 135 - 145 mmol/L Potassium, pl 3.6 3.3 - 4.9 mmol/L [facility] Chloride 109 97 - 110 mmol/L [facility] CO2 21(L) 22 - 32 mmol/L CERNER [...] classification and Diagnosis of Diabetes Diabetes Care 202; 46: S19-S40. Current interpretive data was last revised 2022. Calcium 8.1(L) 8.5 - 10.3 mg/dL [facility] Blood 11/23/2024 1:22 PM [employer] 11/24/2024 11:08 AM [employer] MIXER us Preethi Godoy DONALD LAB BLOOD ORDERABLES Final Resul t [place] [address] Pop [place] [address] * XR Chest Pa Lateral 2 Views (11/16/2024 2:07 PM [employer]) Anatomical Region Laterality Modality Body, Chest N/A Digital Radiogra phy 11/16/2024 3:45 PM [employer] Narrative 11/16/2024 3:51 PM [employer] EXAM DESCRIPTION: XR CHEST PA LATERAL 2 [...] Jeffery Dawkins M.D. MJ T: Report ID: [id number] Reading Location: [id number] Procedure Note Jeffery Dawkins MD - 11/16/2024 [...] by Jeffery Dawkins M.D. T: Report ID: [id number] Reading Location: [place] [address] M[facility] IMG XR PROCEDURES Final Result * (ABNORMAL) Influenza A/B, RSV, and COVID-19 PCR Nasopharyngeal (11/14/2024 11:00 AM [employer]ER) Pathologist [facility] COVID-19 RNA Negative Negative [facility] Influenza A RNA Negative Negative [facility] Influenza B RNA Negative Negative [facility] RSV RNA Positive(A) Negative [facility] Comment: Interpretive data: Testing performed by [facility]. This test is performed using the [employer] Xpert Xpress CoV-2/Flu/RSV plus assay. This is a multiplex, real-time reverse transcriptase PCR assay intended for the qualitative detection of nucleic acid from SARS-CoV-2, influenza A, influenza B, and respiratory syncytial virus. This assay has been cleared by the [place] Food and Drug administration. The performance characteristics have been verified by the [facility]. Results must be considered in the clinical context, and a negative result does not rule out infection. Interpretive Data last revised 2023 Nasopharyngeal 11/14/2024 11 :00 AM [employer] M[employer]ER 11/14/2024 2:41 PM [employer] MIXER Narrative [place] - 11/14/2024 3:32 PM [employer] MIXER Is the Patient experiencing symptoms consistent with COVID?->Yes [facility] LAB MICROBIOLOGY - GENER AL ORDERABLES Final Result Performing Organization Address City/[facility]/ZIP Co de Phone Number [place] [address] [address] [place] [address] * POC Influenza A/B, COVID-19 antigen (11/14/2024 10:47 AM [employer]ER) Influenza A Ag, POC Negative Negative [facility] Influenza B Ag, POC Negative Negative [facility] COVID-19 Ag POC Presumptive Negative Presumptive Negative, Invalid [facility] Nasal 11/14/2024 10:4 7 AM [employer] MIXER Mandy TOWNSEND POINT OF CARE TEST ORDER MANJINDER Final Result [facility] [address] [place] [address] * Surgical pathology (10/21/2024 11:18 AM [employer]) Tissue specimen (specimen) (Ileum, Biopsy) 10/21/2024 11:18 AM [employer]ER Tissue specimen (specimen) (Colon, Biopsy) 10/21/2024 11:31 AM [employer] M[employer]ER Narrative PATHOLOGY [facility] - 10/22/2024 11:22 AM [employer]ER EPIC results best viewed via link to PDF [facility] Ambreen Bello Laboratory [place] [address] Note to Patients: This report may contain [...] Gender: M : 1945 (Age: 79) Address: [address] [place] [address] [place] [id number] Hospital #: [id number] Taken:10/21/2024 Received:10/21/2024 Reported: 10/22/2024 Patient Type: [facility] Service: Gastro Location: Physician(s): Edmund Waterman F.N.PHansa [...] Surgical Pathology and Flow Cytometry Departments at [facility] as part of an ongoing quality control microbiology supervisor program and in compliance with federally mandated [...] Surgical Pathology and Flow Cytometry Departments of [facility]. It has not been cleared or approved by the U. S. Food and Drug Administration. IMAGES AND SCANNED DOCUMENTS, IF INCLUDED, ONLY VIEWABLE IN PDF VERSION OF REPORT us Kath Shepherd MD LAB PATHOLOGY ORDERABLES Laly mckenzie Result PATHOLOGY [facility] 3rd Floor [place], [place] [phone] * Colonoscopy (10/21/2024 10:56 AM [employer] MIXER) Anatomical Region Laterality Modality Other Narrative Procedure Note Kath Shepherd MD - 10/21/2024 10:56 AM [facility]ST [facility] ENDOSCOPY [facility] Patient Name: Aziza Loya Procedure Date: 10/21/2024 10:56 AM Date of : 1945 Admit Type: Outpatient Age: 79 Gender: Male Attending MD: Kath Shepherd M.D. Room: [facility] ENDOSCOPY ROOM 3 Note Status: Addendum Procedure: [...] The scope was passed under direct vision.The [facility] [id number] endoscope was introducedthrough the anus and [...] Steven Ruano M.D. RB T: Report ID: [id number] Reading Location: [id number] Procedure Note Steven Ruano MD - 02/24/2024 [...] signed by Steven RAJPUT T: Report ID: [id number] Reading Location: [id number] Annie TOW[address] IMG CT PROCEDURES Final Res [...] - [place] [address] [address] Department [place] [address] from Last 3 Months or Most Recently Relevant to Health Maintenance Insurance [facility] MEDICARE MEDICARE [facility] Member Subscriber Plan / Payer ( fective 2017-) Name:Aziza Loya Relation to Subscriber:Self Name:Aziza Loya Payer ID:[id number] Group ID:[id number] Type:COMMERCIAL Address: [facility] [address] [place] [id number] MEDICARE [facility] MEDICARE [facility] MEDICARE [facility] Advance Directives For more information, please contact: [phone] * Full Code (Latest Code Status on [...] 10:45 AM 05/17/2022 5:55 PM Care Teams Freight And Passenger Agent Relationship Specialty Start Date End Date Preethi Godoy NP [address] [facility] 130 [place], [place] [id number] PCP - General Family Medicine 08/25/24 Kath Shepherd MD [address] [place] [address] Consulting Physician Gastroenterology 07/22/19 Peter Ya MD [address] [place] [address] Superintendent Electric Power Cardiology 07/22/19 Aziza Ledesma MD [address] [place] [address] Consulting Physician Neurology 07/22/19 Joshua Butterfield MD 6812 [facility] 162 [facility] 200 [place] [address] Consulting Physician Urology 07/03/23 Jeffery Bustillos MD [address] [address] Consulting Physician Cardiovascular Disease 02/06/24 Shimon Schofield MD [address] [address] Consulting Physician Vascular Surgery 02/06/24
--- OUTSIDE RECORDS SUMMARY | 2025-01-04 17:06 | XMS_ITS | Encounter Summary ---
Author Organization [facility] Address [address] [place] [address] Phone Care Team Providers Care Agriculture Specialist Name Role Phone John Kimbrough MD Primary Care Provider [phone] Kath Shepherd MD Unavailable [phone] Peter Ya MD Unavailable [phone] Vitaly Ledesma MD Unavailable [phone] Anayeli Lee MD Primary Care Provider Joshua Butterfield MD Unavailable [phone] Jeffery Bustillos MD Unavailable [phone] Shimon Schofield MD Unavailable Preethi Godoy NP Primary Care Provider Encounter Details Date Type Department Care Team (Late st Contact Info) Description 02/03/2020 Telephone [facility] Gastroenterology On license of 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 Gender Identity Not on file Sexual Orientation Not on file documented as of this encounter Plan of Treatment Not on file documented as of this encounter Visit Diagnoses Not on filedocumented in this encounter Additional Health Concerns Infection Onset Date Last Indicated Resolved Time COVID: Suspected 08/21/2021 08/21/2021 08/21/2021 11:38 AM ROLL REPAIRER COVID: Suspected 11/14/2024 11/14/2024 11/14/2024 10:49 AM ROLL REPAIRER COVID: Suspected 11/14/2024 11/14/2024 11/14/2024 3:33 PM ROLL REPAIRER RSV, droplet 11/14/2024 11/14/2024 11/21/2024 3:07 AM ROLL REPAIRER COVID: Suspected 12/30/2024 12/30/2024 12/30/2024 7:54 PM CDT documented as of this encounter Care Teams Agriculture Specialist Relationship Specialty Start Date End Date John Kimbrough MD 49[address] [facility] [address] [place] [address] PCP - General 11/08/16 07/02/23 Anayeli Lee MD [address] [place] [address] PCP - General Family Medicine 07/03/23 08/24/24 Preethi Godoy NP 2[address] [facility] 130 [place] [address] PCP - General Family Medicine 08/25/24 Kath Shepherd MD [address] [place] [address] Consulting Physician Gastroenterology 07/22/19 Peter Ya MD [address] [place] [address] Foreman Or Supervisor And Operator Cardiology 07/22/19 Vitaly Ledesma MD [address] [place] [address] Consulting Physician Neurology 07/22/19 Joshua Butterfield MD [address] [facility] 200 [place] [address] Consulting Physician Urology 07/03/23 Jeffery Bustillos MD [address] [facility] 102 [place] [address] Consulting Physician Cardiovascular Disease 02/06/24 Shimon Schofield MD 46[address] [facility] 120 [place] [address] Consulting Physician Vascular Surgery 02/06/24 documented as of this encounter
--- OUTSIDE RECORDS SUMMARY | 2025-01-04 17:06 | XMS_ITS | Encounter Summary ---
Author Organization [facility] Address [address] [place] [address] Care Team Providers Care Software Engineer Kernel Name Role Phone John Kimbrough MD Primary Care Provider [phone] Kath Shepherd MD Unavailable [phone] Peter Ya MD Unavailable [phone] Vitaly Ledesma MD Unavailable [phone] Anayeli Lee MD Primary Care Provider Joshua Butterfield MD Unavailable [phone] Jeffery Bustillos MD Unavailable [phone] Shimon Schofield MD Unavailable Preethi Godoy NP Primary Care Provider [phone] Encounter Details Date Type Department Care Team (Late st Contact Info) Description 03/26/2019 Documentation [facility] 1 [place] [address] Kaykay Jason, TEDDY Social History Tobacco Use Types Packs/Day Years Used Date Smoking Tobacco: Former Smokeless Tobacco: Never Alcohol Use Standard Drinks/Week Comments No 0 (1 standard drink = 0.6 oz pur e alcohol) Sex and Gender Information Value Date Recorded Sex Assigned at Not on file 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 2:24 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 SHERIFF/INVESTIGATOR Gender Identity Not on file Sexual Orientation Not on file documented as of this encounter Plan of Treatment Not on file documented as of this encounter Visit Diagnoses Not on filedocumented in this encounter Additional Health Concerns Infection Onset Date Last Indicated Resolved Time COVID: Suspected 08/21/2021 08/21/2021 08/21/2021 11:38 AM DEPUTY SHERIFF/INVESTIGATOR COVID: Suspected 11/14/2024 11/14/2024 11/14/2024 10:49 AM DEPUTY SHERIFF/INVESTIGATOR COVID: Suspected 11/14/2024 11/14/2024 11/14/2024 3:33 PM DEPUTY SHERIFF/INVESTIGATOR RSV, droplet 11/14/2024 11/14/2024 11/21/2024 3:07 AM DEPUTY SHERIFF/INVESTIGATOR COVID: Suspected 12/30/2024 12/30/2024 12/30/2024 7:54 PM CDT documented as of this encounter Care Teams Software Engineer Kernel Relationship Specialty Start Date End Date John Kimbrough MD [address] [facility] [address] [place] [address] PCP - General 11/08/16 07/02/23 Anayeli Lee MD [address] [place] [address] PCP - General Family Medicine 07/03/23 08/24/24 Preethi Godoy NP 2 [facility] 130 [place] [address] PCP - General Family Medicine 08/25/24 Kath Shepherd MD [address] [place] [address] Consulting Physician Gastroenterology 07/22/19 Peter Ya MD [address] [place] [address] Child Life Specialist Cardiology 07/22/19 Vitaly Ledesma MD [address] [place] [address] Consulting Physician Neurology 07/22/19 Joshua Butterfield MD [address] [facility] [address] [facility] 200 [place] [address] Consulting Physician Urology 07/03/23 Jeffery Bustillos MD [address] [place] [address] Consulting Physician Cardiovascular Disease 02/06/24 Shimon Schofield MD [address] [address] Consulting Physician Vascular Surgery 02/06/24 documented as of this encounter
--- OUTSIDE RECORDS SUMMARY | 2025-01-04 17:06 | XMS_ITS | Encounter Summary ---
Author Organization [facility] Address [address] [place] [address] Phone Care Team Providers Care Security Officer Name Role Phone John Kimbrough MD Primary Care Provider [phone] Kath Shepherd MD Unavailable [phone] Peter Ya MD Unavailable [phone] Vitaly Ledesma MD Unavailable [phone] Anayeli Lee MD Primary Care Provider Joshua Butterfield MD Unavailable [phone] Jeffery Bustillos MD Unavailable [phone] Shimon Schofield MD Unavailable Preethi Godoy NP Primary Care Provider Encounter Details Date Type Department Care Team (Late st Contact Info) Description 08/21/2021 Telephone [facility] Oncology [address] [facility] [address] [place] [phone] Maribel Shore CPhT Social History Tobacco Use [...] on file 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 Gender Identity Not on file Sexual Orientation Not on file 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[employer] Not on file Not on file Not on file documented as of this encounter Plan of Treatment Not on file documented as of this encounter Visit Diagnoses Not on filedocumented in this encounter Additional Health Concerns Infection Onset Date Last Indicated Resolved Time COVID: Suspected 08/21/2021 08/21/2021 08/21/2021 11:38 AM ROOFING 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 COVID: Suspected 11/14/2024 11/14/2024 11/14/2024 10:49 AM ROOFING 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 COVID: Suspected 11/14/2024 11/14/2024 11/14/2024 3:33 PM ROOFING 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 RSV, droplet 11/14/2024 11/14/2024 11/21/2024 3:07 AM ROOFING 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 COVID: Suspected 12/30/2024 12/30/2024 12/30/2024 7:54 PM CDT documented as of this encounter Care Teams Security Officer Relationship Specialty Start Date End Date John Kimbrough MD [address] [facility] 13[address] [place] [address] PCP - General 11/08/16 07/02/23 Anayeli Lee MD [address] [place] [address] PCP - General Family Medicine 07/03/23 08/24/24 Preethi Godoy NP [address] [address] PCP - General Family Medicine 08/25/24 Kath Shepherd MD [address] [place] [address] Consulting Physician Gastroenterology 07/22/19 Peter Ya MD [address] [place] [address] Pedodontist Cardiology 07/22/19 Vitaly Ledesma MD [address] [place] [address] Consulting Physician Neurology 07/22/19 Joshua Butterfield MD [address] [facility] 200 [place] [address] Consulting Physician Urology 07/03/23 Jeffery Bustillos MD [address] [facility] 102 [place] [address] Consulting Physician Cardiovascular Disease 02/06/24 Shimon Schofield MD [address] [address] Consulting Physician Vascular Surgery 02/06/24 documented as of this encounter
--- OUTSIDE RECORDS SUMMARY | 2025-01-04 17:06 | XMS_ITS | Encounter Summary ---
Author Organization [facility] Healthcare Address [address] [place] [address] Care Team Providers Care Vegetable Picker Name Role Phone Kath Shepherd MD Unavailable [phone] Peter Ya MD Unavailable [phone] Vitaly Ledesma MD Unavailable [phone] Joshua Butterfield MD Unavailable [phone] Jeffery Bustillos MD Unavailable [phone] Shimon Schofield MD Unavailable Preethi Godoy NP Primary Care Provider [phone] Reason for Visit * Reason Onset Date Comments UTI 01/04/2025 Encounter Details Date Type Department Care Team (Late st Contact Info) Description 01/04/2025 Nurse Triage [facility] Medical [facility] Primary Care at [address] [address] Preethi Godoy NP [address] [place] [address] [address] [place] [address] Social History Tobacco Use Types Packs/Day Years Used Date Smoking Tobacco: Former Cigarettes 10 20 1 - 1990 Smokeless Tobacco: Never Alcohol Use [...] on file 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 2:24 AM WOOD BARREL RECONDITIONER Gender Identity Not on file Sexual Orientation Not on file 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 He has a 100.8 fever and is shaking uncontrollably. No visible blood in the urine. He is not any more confused than usual (hx of dementia). On 12/30 when he was seen at the CC, he was very confused. He straight cath's due to urinary retention. He began shaking. Temp today 100.8. states he usually runs low at 97 degrees. What do you advise? Provider contacted via secure chat for ED disposition consult. Recommendation from provider:Proceedto ED I reviewed this recommendation with the patient's spouse. She agrees to take him to the ED now. Reason for Disposition Taking antibiotic and new-onset of fever Protocols used: Infection on Antibiotic Follow-up [id number] * Telephone Encounter - Mer Urrutia RN - 01/04/2025 4:14 PM CDT Regardin.8 fever, shaking ----- Message from Carmen Nelson sent at 01/04/2025 4:14 PM CDT ----- Symptom Based Call Chief Complaint(s): 100.8 fever, shaking Duration: Started this afternoon What type of symptom(s) is the patient experiencing? Red Flag. Is the patient concerned they are experiencing a medical emergency requiring an ambulance? No Additional Comments: The patient was seen 12-30-24 and was diagnosed with a UTI. He has one pill left of the Cefdinir and today took a turn for the worse. He has a 100.8 fever and is shaking uncontrollably. Sending high priority because said he will end up in the hospital if he does not get better. Does message need to be routed? Yes-Action Needed documented in this encounter Plan of Treatment Not on file documented as of this encounter Visit Diagnoses Not on filedocumented in this encounter Care Teams Vegetable Picker Relationship Specialty Start Date End Date Preethi Godoy NP [address] [facility] [address] [place] [address] PCP - General Family Medicine 08/25/24 Kath Shepherd MD [address] [place] [address] Consulting Physician Gastroenterology 07/22/19 Peter Ya MD [address] [place] [address] Production Specialist Cardiology 07/22/19 Vitaly Ledesma MD [address] [place] [address] Consulting Physician Neurology 07/22/19 Joshua Butterfield MD [address] [place] [address] Consulting Physician Urology 07/03/23 Jeffery Bustillos MD [address] [address] Consulting Physician Cardiovascular Disease 02/06/24 Shimon Schofield MD [address] [address] Consulting Physician Vascular Surgery 02/06/24 documented as of this encounter
--- OUTSIDE RECORDS SUMMARY | 2025-01-04 17:06 | XMS_ITS | Clinical Summary ---
Author Organization [facility] Address [address] [place] [address] Care Team Providers Care [address] Magistrate Name Role Phone Kath Shepherd MD Unavailable [phone] Peter Ya MD Unavailable Aziza Ledesma MD Unavailable [phone] Joshua Butterfield MD Unavailable [phone] Jeffery Bustillos MD Unavailable [phone] Shimon Schofield MD Unavailable Preethi Godoy NP Primary Care Provider [phone] Allergies No known active allergies Medications coenzyme Q10 10 mg capsule Take 2 capsules (20 mg total) by mouth every morning Active gqvfd-7-ucd-ep a-dpa-fish oil 1,050-1,200 mg capsule Take 1 [...] Route Frequency Start Date End Date Status [facility] BMS-055609/placebo (/[id number]) capsule 4 capsuleIndications:Crohn' s disease of both small and large intestine with other complication (HCC) 4 capsule oral 2 times daily 05/21/2022 Active [facility] BMS-803682/placebo (/[id number]) capsule 4 capsuleIndications:Crohn' s disease of both small and large intestine with other complication (HCC) 4 capsule oral 2 times daily 06/18/2022 Active [facility] BMS-137996/placebo (/[id number]) capsule 4 capsuleIndications:Crohn' s disease of both small and large intestine with other complication (HCC) 4 capsule oral 2 times daily 07/09/2022 Active [facility] BMS-263099/placebo (/[id number]) capsule 4 capsuleIndications:Crohn' s disease of both small and large intestine with other complication (HCC) 4 capsule oral 2 times daily 08/07/2022 Active [facility] BMS-101482/placebo (/[id number]) capsule 4 capsuleIndications:Crohn' s disease of both small and large intestine with other complication (HCC) 4 capsule oral 2 times daily 09/19/2022 Active [facility] BMS-039994/placebo (/[id number]) capsule 4 capsuleIndications:Crohn' s disease of both [...] modification Assessment & Plan (10/03/2023 1:12 PM JAVA PROJECT MANAGER): Chronic. Due to prior peripheral arterial disease. [...] urologist Assessment & Plan (10/03/2023 1:12 PM JAVA PROJECT MANAGER): Chronic. Continue medication care per Urology Assessment & Plan (07/03/2023 5:22 PM CDT): Follows with [facility] [place] Dr. Butterfield. Patient on finasteride and does intermittent straight catheterization Protein-calorie malnutrition, mild 07/03/2023 Overview (07/03/2023): Patient with low BMI. Less protein level was low. Monitor weight Assessment & Plan (02/06/2024 4:55 PM CDT): Patient has had borderline protein calorie malnutrition. Monitor his protein levels on labs. Encourage adequate nutrition. Avoid additional weight loss Assessment & Plan (10/03/2023 1:12 PM JAVA PROJECT MANAGER): Chronic. BMI remains at the lower end arrange. Encouraged adequate nutrition. Monitor History of gout 07/03/2023 Assessment & Plan (02/06/2024 4:55 PM CDT): Chronic. Denies history of recent flares. Continue allopurinol for prophylaxis. Check uric acid Assessment & Plan (10/03/2023 1:12 PM JAVA PROJECT MANAGER): Chronic. Denies any history of gout in [...] 03/14/2023 Assessment & Plan (10/03/2023 1:13 PM JAVA PROJECT MANAGER): Chronic. May occasionally increase in size. Minimal pain. Has deferred elective repair in the past Persistent atrial fibrillation 12/04/2021 Assessment & Plan (11/23/2024 1:36 PM JAVA PROJECT MANAGER): Rate controlled in office, continuing follow up with Cardiology. Assessment & Plan (03/01/2024 7:51 AM CDT): Stable continue metoprolol. Assessment & Plan (02/06/2024 4:55 PM CDT): Chronic. Controlled rate with metoprolol. Continue. Continue aspirin for stroke prophylaxis Assessment & Plan (10/03/2023 1:12 PM JAVA PROJECT MANAGER): Chronic. Continue risk factor modification. Continue ASA [...] Monitor Assessment & Plan (10/03/2023 1:11 PM JAVA PROJECT MANAGER): Chronic. Denies significant worsening. No agitation recently. [...] They denies significant agitation Cerebral amyloid angiopathy ([facility]) 02/15/2020 Assessment & Plan (02/06/2024 4:54 PM CDT): Chronic. Memory has worsened slightly in the last year. He does have some fluctuations at times. No real agitation. Target good blood pressure control. Continue aspirin for his other issues. Would be cautious with more aggressive anticoagulation given history of amyloid angiopathy Assessment & Plan (10/03/2023 1:11 PM JAVA PROJECT MANAGER): Chronic. Denies any progression of symptoms Assessment & Plan (07/03/2023 5:18 PM CDT): Chronic. Control blood pressure and modify risk factors as able. Continue aspirin given AFib but would be cautious with stronger anticoagulants given increased bleeding risk with cerebral amyloid angiopathy Peripheral artery disease 09/10/2019 Overview (09/10/2019): Added automatically from request for surgery [id number] Assessment & Plan (09/03/2024 10:57 AM JAVA PROJECT MANAGER): Stable lower extremity occlusive disease. Continue risk [...] duplex. Assessment & Plan (10/03/2023 1:11 PM JAVA PROJECT MANAGER): Chronic. Denies recent claudication symptoms. Continue ASA, statin and Pletal Assessment & Plan (07/03/2023 5:22 PM CDT): Chronic. 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 Denies current sores on his feet. Follows with Podiatry in [place]. On cilostazol Iron deficiency anemia due to [...] 02/17/2019 Assessment & Plan (11/23/2024 1:35 PM JAVA PROJECT MANAGER): BP normal in office, continuing current regimen. [...] dehydrate Assessment & Plan (10/03/2023 1:10 PM JAVA PROJECT MANAGER): Chronic. Blood pressure controlled. Continue current prescription [...] (01/26/2019): Added automatically from request for surgery [id number] Assessment & Plan (02/06/2024 4:52 PM CDT): Chronic. Disease has been stable. Minimal symptoms. He does have to be cautious with eating too many fruits and vegetables as he notes this does cause some GI distress. He remains controlled with Skyrezi and hydroxychloroquine. He will continue Assessment & Plan (10/03/2023 1:10 PM JAVA PROJECT MANAGER): Chronic. Symptomatically improved per patient. Continue medication and care per GI Assessment & Plan (07/03/2023 5:20 PM CDT): Chronic. Follows with Gastroenterology. On scar oz and sulfasalazine. Continue medication and care per them CAD (coronary artery disease) 12/04/2018 Assessment & Plan (09/03/2024 10:57 AM JAVA PROJECT MANAGER): Stable continue ASA and Lasix Assessment & Plan (02/06/2024 4:51 PM CDT): Chronic. Denies chest pain. Continue risk factor modification with statin, aspirin, blood pressure control. Target LDL less than 70 Assessment & Plan (10/03/2023 1:10 PM JAVA PROJECT MANAGER): Chronic. Denies chest pain. Follows with cardiology. [...] 12/30/2017 Assessment & Plan (08/25/2024 4:06 PM JAVA PROJECT MANAGER): Updated labs ordered, Hemoglobin was 9 in [...] infusions Assessment & Plan (10/03/2023 1:10 PM JAVA PROJECT MANAGER): Chronic. Follows with GI and Hematology. Has received iron infusions. Often does B12 injections Assessment & Plan (07/03/2023 5:15 PM CDT): Chronic. Follows with GI and Hematology. Received iron infusions Hypercholesterolemia 02/05/2011 Assessment & Plan (09/03/2024 10:57 AM JAVA PROJECT MANAGER): Stable continue statin therapy. Assessment & Plan (03/01/2024 7:50 AM CDT): Stable continue statin therapy. Assessment & Plan (02/06/2024 4:53 PM CDT): Chronic. Tolerates atorvastatin. Continue. Check cholesterol level and adjust for an LDL goal of at least less than 70 with optimal less than 55 Assessment & Plan (10/03/2023 1:10 PM JAVA PROJECT MANAGER): Chronic. Tolerates current prescription medication. Continue Assessment [...] (05/29/2021): Added automatically from request for surgery [id number] Crohn's disease with rectal bleeding 12/10/2018 07/03/2023 Overview (12/10/2018): Added automatically from request for surgery [id number] Peripheral vascular disease 02/13/2017 07/03/2023 Gastrointestinal hemorrhage 07/03/2023 Acute renal failure 07/03/20 23 Crohn's disease of colon with rectal bleeding 07/03/2023 Assessment & Plan (12/04/2021 1:34 PM CDT): Has upcoming endoscopy. Encounters Date Type Department Care Team Description 01/04/2025 Nurse Triage [facility] Primary Care at [address] [phone] Preethi Godoy NP 01/01/2025 Results Follow-Up [facility] Convenient Care at [address] [phone] Brie Mandel NP 12/30/2024 11:55 PM CDT - 12/30/2024 11:59 PM CDT Hospital Encounter [address] [address] Acute cystitis with hematuria; Nasopharyngitis acute Discharge Disposition: Discharge to home or self care 12/30/2024 7:30 PM CDT Office Visit [facility] Care at [address] [phone] Gladys Valdovinos NP Acute cystitis with hematuria (Primary Dx); Nasopharyngitis acute 11/29/2024 Results Follow-Up [facility] Primary Care at [address] [phone] Preethi Godoy NP Pulmonary nodule 1 cm or greater in diameter (Primary Dx) 11/29/2024 Orders Only [facility] Primary Care at [address] [phone] Preethi Godoy NP Abnormal CXR; Pneumonia of both lungs due to infectious organism, unspecified part of lung; Cough, unspecified type; Fever, unspecified fever cause 11/26/2024 Orders Only [facility] Primary Care at [address] [phone] Preethi Godoy NP 11/26/2024 Telephone [facility] Primary Care at [address] [phone] Preethi Godoy NP Medical Question/Miscellaneo us 11/26/2024 Orders Only [facility] Primary Care at [address] [phone] Preethi Godoy NP 11/26/2024 Telephone [facility] Primary Care at [address] [phone] Preethi Godoy TELEPHONIC NURSE Symptom Based Call 11/24/2024 Results Follow-Up [facility] Primary Care at [address] [phone] Preethi Godoy, TELEPHONIC NURSE 11/23/2024 1:30 PM JAVA PROJECT MANAGER Lab [facility] Outpatient Lab at [address] [phone] Pneumonia due to infectious organism, unspecified laterality, unspecified part of lung (Primary Dx) 11/23/2024 1:30 PM JAVA PROJECT MANAGER Ancillary Procedure [facility] Imaging at [address] [phone] Pneumonia due to infectious organism, unspecified laterality, unspecified part of lung 11/23/2024 1:22 PM JAVA PROJECT MANAGER - 11/23/2024 11:59 PM JAVA PROJECT MANAGER Hospital Encounter [address] [address] Benign hypertension with stage 3a chronic kidney disease (HCC); Iron deficiency anemia due to chronic blood loss Discharge Disposition: Discharge to home or self care 11/23/2024 12:30 PM JAVA PROJECT MANAGER Office Visit [facility] Primary Care at [address] [phone] Preethi Godoy, TELEPHONIC NURSE Pneumonia due to infectious organism, unspecified laterality, unspecified part of lung (Primary Dx); Iron deficiency anemia due to chronic blood loss; Benign hypertension with stage 3a chronic kidney disease (HCC); Persistent atrial fibrillation (HCC) 11/16/2024 2:00 PM JAVA PROJECT MANAGER Ancillary Procedure [facility] Imaging at [address] [phone] Acute cough 11/16/2024 Orders Only [facility] Convenient Care at [address] [phone] Gladys Valdovinos NP Lower respiratory infection (e.g., bronchitis, pneumonia, pneumonitis, pulmonitis) (Primary Dx) 11/14/2024 11:00 AM JAVA PROJECT MANAGER - 11/14/2024 11:59 PM JAVA PROJECT MANAGER Hospital Encounter [place] [id number] [place] [address] Acute cough Discharge Disposition: Discharge to home or self care 11/14/2024 10:00 AM JAVA PROJECT MANAGER Office Visit [facility] Convenient Care at [address] [phone] Mandy Hernandez PA Acute cough (Primary Dx) 11/14/2024 Results Follow-Up [facility] Convenient Care at [address] [phone] Mandy Hernandez PA 11/10/2024 Orders Only [facility] Primary Care at [address] [phone] Preethi Godoy NP 11/03/2024 Orders Only [facility] Gastroenterology [address] [place] [address] Advanced Medicine 12th [place] [address] [place] [address] Kath Shepherd MD 10/25/2024 Telephone [facility] Gastroenterology [address] [place] [address] Medicine 12th [place] [address] [place] [address] Jeannine Newman, TEDDY Med Management ([facility] PAP for 2024) 10/21/2024 10:58 AM JAVA PROJECT MANAGER Anesthesia Event [facility] [place] [address] [facility] [address] [place] [phone] Danyell Maher MD 10/21/2024 10:30 AM JAVA PROJECT MANAGER - 10/21/2024 11:15 AM JAVA PROJECT MANAGER Surgery [facility] [address] [facility] [address] [place] [address] Kath Shepherd MD COLON BIOPSY 10/21/2024 9:15 AM JAVA PROJECT MANAGER - 10/21/2024 12:33 PM JAVA PROJECT MANAGER Hospital Encounter [facility] Digestive Disease [address] [place] [address] Kath Shepherd MD Crohn's disease of both small and large intestine with other complication (HCC) Discharge Disposition: Discharge to home or self care 10/20/2024 Telephone [facility] Primary Care at [address] [phone] Preethi Godoy NP Medical Question/Miscellaneo us 10/14/2024 Telephone [facility] Specialty Services [address] [place] [phone] Stacey Crane, RN 10/14/2024 Telephone [facility] Specialty Services [address] [place] [phone] Stacey Crane, RN 10/14/2024 Telephone [facility] Specialty Services [address] [place] [phone] Stacey Crane, RN GI PROCEDURE 7 DAY [...] Neg Hx Relation Name Status Comments Father [place] & CVA () age 76 Mother Sister [...] on file 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 2:24 AM JAVA PROJECT MANAGER Gender Identity Not on file Sexual Orientation Not on file 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 [id number] Synergy 3.5mm 24mm 144cm Radiopaque 1 Access Port Inflation Lumen - [id number] - [id number] Implanted:Qty: 1 on 03/26/2019 by Alban Santana MD at [facility] Stent Hytle Araceli 12/09/2020 [id number] / [id number] / [id number] Procedures Procedure Name Priority Date/Time Associated Diagnosis [...] Read Routine (OP Routine) 11/26/2024 10:46 AM JAVA PROJECT MANAGER Abnormal CXR Pneumonia of both lungs due to infectious organism, unspecified part of lung Cough, unspecified type Fever, unspecified fever cause XR CHEST PA LATERAL 2 VIEWS Schedule Routine, Read Routine (OP Routine) 11/23/2024 1:30 PM JAVA PROJECT MANAGER Pneumonia due to infectious organism, unspecified laterality, unspecified part of lung EGFR Routine 11/23/2024 1:22 PM JAVA PROJECT MANAGER Benign hypertension with stage 3a chronic kidney disease (HCC) DIFFERENTIAL AUTO Routine 11/23/2024 1:2 2 PM JAVA PROJECT MANAGER Iron deficiency anemia due to chronic blood loss Benign hypertension with stage 3a chronic kidney disease (HCC) CBC WITH AUTO DIFFERENTIAL Routine 11/23/2024 1:22 PM JAVA PROJECT MANAGER Iron deficiency anemia due to chronic blood loss Benign hypertension with stage 3a chronic kidney disease (HCC) IRON Routine 11/23/2024 1:22 PM JAVA PROJECT MANAGER Iron deficiency anemia due to chronic blood loss BASIC METABOLIC PANEL Routine 11/23/2024 1:22 PM JAVA PROJECT MANAGER Benign hypertension with stage 3a chronic kidney disease (HCC) XR CHEST PA LATERAL 2 VIEWS Schedule YULIANA, Read YULIANA (Appt Today, Awaiting Results) 11/16/2024 2:07 PM JAVA PROJECT MANAGER Acute cough INFLUENZA A/B, RSV, AND COVID-19 PCR Routine 11/14/2024 11:00 AM JAVA PROJECT MANAGER Acute cough POC INFLUENZA A/B, COVID-19 ANTIGEN Routine 11/14/2024 10:47 AM JAVA PROJECT MANAGER Acute cough SURGICAL PATHOLOGY Routine 10/21/2024 11 :18 AM JAVA PROJECT MANAGER Crohn's disease of both small and large intestine with other complication (HCC) COLON BIOPSY 10/21/2024 10:58 AM JAVA PROJECT MANAGER Crohn's disease of both small and large intestine with other complication (HCC) COLONOSCOPY 10/21/2024 10:56 AM JAVA PROJECT MANAGER CTA ABDOMEN PELVIS W WO CONTRAST Schedule [...] CDT) Influenza A Ag, POC Negative Negative [facility] Influenza B Ag, POC Negative Negative [facility] COVID-19 Ag POC Presumptive Negative Presumptive Negative, Invalid [facility] Nasal 12/30/2024 7:53 PM CDT Gladys Valdovinos NP POINT OF CARE TEST ORDERABLES Final Result [facility] [address] [place] [address] * Throat culture Throat (12/30/2024 7:47 PM CDT) Report Final Report: No growth of pathogens. Comment:Testing performed by : [facility], [address] [place] [address] Throat 12/30/2024 7:47 PM CDT 12/31/2024 2:01 AM CDT Narrative [facility] [place] 01/01/2025 2:34 AM CDT Testing performed by [facility] Microbiology Laboratory ([phone]). Gladys Valdovinos NP LAB MICROBIOLOGY - GENERAL ORD ERABLES Final Result [facility] [id number] Department [place] [address] * POCT rapid strep A (12/30/2024 7:46 PM CDT) [facility] Rapid Strep A, POC Negative Negative Swab 12/30/2024 7:46 PM CDT Gladys Valdovinos TELEPHONIC NURSE POINT OF CARE TEST ORDERABLES Final Result * (ABNORMAL) POCT urinalysis dipstick (12/30/2024 7:41 PM CDT) [facility] Color, Urine, POC Yellow Clarity, ur, POC Cloudy(A) Clear Glucose, ur, POC Negative Negative MG/DL Bilirubin, ur, POC Negative Negative, Small, Moderate, Large Ketones, ur, POC Negative Negative Specific [place], POC 1.020 1.003 - 1.030 Blood, ur, POC Small(A) Negative pH, ur, POC 5.5 5.0 - 8.0 Protein, ur, POC Negative Negative Urobilinogen, urine, POC 0.2 0.2 - 1.0 mg/dL Nitrite, ur, POC Positive(A) Negative Leukocytes, ur, POC Moderate(A) Negative Lot Number [id number] Urine 12/30/2024 7:41 PM CDT us Gladys Valdovinos NP POINT OF CARE TEST ORDERABLES Final Result * (ABNORMAL) Urine culture Urine, clean voided (12/30/2024 7:30 PM CDT) [facility] Report Final Report: Greater than or equal to 100,000 colonies/mL of Klebsiella pneumoniae (.) Comment:Testing performed by : [facility], [address] [facility], [place]., [address] Organism KLEBSIELLA PNEUMONIAE [facility] Urine, clean voided 12/30/2024 7:30 PM CDT 12/31/2024 2:01 AM CDT Narrative [facility] - 01/02/2025 8:39 AM CDT Testing performed by [facility] Microbiology Laboratory ([phone]) Organism Antibiotic Method Susceptibility Klebsiella pneumoniae Ampicillin [...] - GENERAL ORD ERABLES Final Result [facility] [address] Department of Laboratories [place] [phone] * [place] Brain Imaging SPECT/CT (11/28/2024 10:49 AM CDT) Anatomical Region Laterality Modality Head and Neck N/A Nuclear Medicine Historical Provider IMG NM PROCEDURES Final R esult * XR Chest 2 Views W Apical Lordotic 3 Views (11/28/2024 10:48 AM CDT) Anatomical Region Laterality Modality Body, Chest N/A Radiographic Mariangel ging Historical Provider IMG XR PROCEDURES Final R esult * CT Chest WO Contrast (11/26/2024 10:46 AM JAVA PROJECT MANAGER) Anatomical Region Laterality Modality Body N/A Computed Tomogra phy Preethi Godoy NP IMG CT PROCEDURES Final Result * XR Chest PA Lateral 2 Views (11/23/2024 1:30 PM JAVA PROJECT MANAGER) Anatomical Region Laterality Modality Body, Chest N/A Digital Radiogra phy 11/26/2024 2:09 PM JAVA PROJECT MANAGER Narrative 11/26/2024 2:11 PM JAVA PROJECT MANAGER EXAM DESCRIPTION: XR CHEST PA LATERAL 2 [...] bilateral pleural effusion with adjacent airspace opacities, [id number]-[id number]-vgtb-left. Right mid chest linear density , linear [...] Buck Oleary D.O. AP T: Report ID: [id number] Reading Location: [id number] Procedure Note Buck Oleary, DO - 11/26/2024 [...] Small bilateral pleural effusionwith adjacent airspace opacities, [id number]-[id number]-dkcb-left. Right mid chestlinear density , linear atelectasis [...] signed by Buck DOUGLAS T: Report ID: [id number] Reading Location: [place] [address] us Preethi Godoy TELEPHONIC NURSE IMG XR PROCEDURES Final Result * (ABNORMAL) eGFR (11/23/2024 1:22 PM JAVA PROJECT MANAGER) eGFR 34(L) >=60 mL/min/1. 73 m2 Comment: [...] last reviewed 2021. Blood 11/23/2024 1:22 PM JAVA PROJECT MANAGER 11/24/2024 11:14 AM JAVA PROJECT MANAGER us Preethi Godoy NP LAB BLOOD ORDERABLES Final Resul t [facility] [place] [address] Department [place] [address] * (ABNORMAL) Differential, auto (11/23/2024 1:22 PM JAVA PROJECT MANAGER) Neutrophil abs 6.3 1.5 - 6.5 K/cumm Imm gran abs 0.0 0.0 - 0.1 K/cumm [facility] Lymphocyte abs 0.7(L) 0.8 - 3.3 K/cumm [facility] Monocyte abs 1.0(H) 0.2 - 0.8 K/cumm [facility] Eosinophil abs 0.2 0.0 - 0.5 K/cumm [facility] Basophil abs 0.1 0.0 - 0.1 K/cumm [facility] Neutrophil pct 75.6 % [facility] Comment: Interpretive Data Percent cell count reference ranges are not reported, since discordance with absolute values may lead to misinterpretation of CBC data. Current Interpretive Data was last revised on 2017. Imm gran pct 0.5 % [facility] Comment: Interpretive Data Percent cell count reference ranges are not reported, since discordance with absolute values may lead to misinterpretation of CBC data. Current Interpretive Data was last revised on 2017. Lymphocyte pct 8.8 % [facility] Comment: Interpretive Data Percent cell count reference ranges are not reported, since discordance with absolute values may lead to misinterpretation of CBC data. Current Interpretive Data was last revised on 2017. Monocyte pct 11.6 % [facility] Comment: Interpretive Data Percent cell count reference ranges are not reported, since discordance with absolute values may lead to misinterpretation of CBC data. Current Interpretive Data was last revised on 2017. Eosinophil pct 2.9 % [facility] Comment: Interpretive Data Percent cell count reference ranges are not reported, since discordance with absolute values may lead to misinterpretation of CBC data. Current Interpretive Data was last revised on 2017. Basophil pct 0.6 % [facility] Comment: Interpretive Data Percent cell count reference ranges are not reported, since discordance with absolute values may lead to misinterpretation of CBC data. Current Interpretive Data was last revised on 2017. Blood 11/23/2024 1:22 PM JAVA PROJECT MANAGER 11/24/2024 11:08 AM JAVA PROJECT MANAGER us Preethi Godoy NP LAB BLOOD ORDERABLES Final Resul t [facility] [address] Department [place] [address] * (ABNORMAL) CBC with auto differential (11/23/2024 1:22 PM JAVA PROJECT MANAGER) [facility] WBC 8.4 3.8 - 9.9 K/cumm Hgb 9.7(L) 13.0 - 17.5 g/dL [facility] Hct 31.3(L) 38.9 - 50.3 % [facility] Plt 179 150 - 400 K/cumm [facility] MPV 10.2 9.1 - 12.3 fL [facility] RBC 3.12(L) 4.30 - 5.80 M/cumm [facility] MCV 100.3(H) 81.3 - 96.4 fL [facility] MCH 31.1 27.1 - 33.3 pg [facility] MCHC 31.0(L) 32.3 - 35.7 g/dL [facility] RDW CV 17.2(H) 11.1 - 14.9 % [facility] RDW SD 64.2(H) 35.7 - 48.1 fL [facility] NRBC abs 0.00 0.00 - 0.01 K/cumm [facility] Blood 11/23/2024 1:22 PM JAVA PROJECT MANAGER 11/24/2024 11:08 AM JAVA PROJECT MANAGER Preethi Godoy NP LAB BLOOD ORDERABLES Final Resul t [facility] [address] Department [place] [address] * (ABNORMAL) Iron level (11/23/2024 1:22 PM JAVA PROJECT MANAGER) [facility] Iron 47(L) 50 - 150 mcg/dl Blood 11/23/2024 1:22 PM JAVA PROJECT MANAGER 11/24/2024 11:08 AM JAVA PROJECT MANAGER us Preethi Godoy NP LAB BLOOD ORDERABLES Final Resul t [facility] [address] Department [place] [address] * (ABNORMAL) Basic metabolic panel (11/23/2024 1:22 PM JAVA PROJECT MANAGER) Sodium 141 135 - 145 mmol/L Potassium, pl 3.6 3.3 - 4.9 mmol/L [facility] Chloride 109 97 - 110 mmol/L [facility] CH CO2 21(L) 22 - 32 mmol/L [facility] Anion gap 11 2 - 15 mmol/L [facility] BUN 18 6 - 25 mg/dL [facility] Creatinine 1.97(H) 0.80 - 1.30 mg/dL [facility] Glucose 75 70 - 199 mg/dL [facility] Comment: Interpretive Data Fasting glucose >/= 126 [...] 2022. Calcium 8.1(L) 8.5 - 10.3 mg/dL [facility] Blood 11/23/2024 1:22 PM JAVA PROJECT MANAGER 11/24/2024 11:08 AM JAVA PROJECT MANAGER Preethi Godoy NP LAB BLOOD ORDERABLES Final Resul t [facility] [address] Department [place] [address] * XR Chest Pa Lateral 2 Views (11/16/2024 2:07 PM JAVA PROJECT MANAGER) Anatomical Region Laterality Modality Body, Chest N/A Digital Radiogra phy 11/16/2024 3:45 PM JAVA PROJECT MANAGER Narrative 11/16/2024 3:51 PM JAVA PROJECT MANAGER EXAM DESCRIPTION: XR CHEST PA LATERAL 2 [...] Jeffery Dawkins M.D. MJ T: Report ID: [id number] Reading Location: [id number] Procedure Note Jeffery Dawkins MD - 11/16/2024 [...] Jeffery Dawkins M.D. MJ T: Report ID: [id number] Reading Location: [id number] Mandy TOWNSEND IMG XR PROCEDURES Final Result * (ABNORMAL) Influenza A/B, RSV, and COVID-19 PCR Nasopharyngeal (11/14/2024 11:00 AM JAVA PROJECT MANAGER) [facility] COVID-19 RNA Negative Negative Influenza A RNA Negative Negative [facility] Influenza B RNA Negative Negative [facility] RSV RNA Positive(A) Negative [facility] Comment: Interpretive data: Testing performed by [facility]. This test is performed using the [employer] Xpert Xpress CoV-2/Flu/RSV plus assay. This is a multiplex, real-time reverse transcriptase PCR assay intended for the qualitative detection of nucleic acid from SARS-CoV-2, influenza A, influenza B, and respiratory syncytial virus. This assay has been cleared by the [place] Food and Drug administration. The performance characteristics have been verified by the [facility]. Results must be considered in the clinical context, and a negative result does not rule out infection. Interpretive Data last revised 2023 Nasopharyngeal 11/14/2024 11 :00 AM JAVA PROJECT MANAGER 11/14/2024 2:41 PM JAVA PROJECT MANAGER Narrative [facility] - 11/14/2024 3:32 PM JAVA PROJECT MANAGER Is the Patient experiencing symptoms consistent with COVID?->Yes Mandy TOWNSEND LAB MICROBIOLOGY - GENER AL ORDERABLES Final Result [facility] [address] Department [place] [address] * POC Influenza A/B, COVID-19 antigen (11/14/2024 10:47 AM JAVA PROJECT MANAGER) Influenza A Ag, POC Negative Negative [facility] Influenza B Ag, POC Negative Negative [facility] COVID-19 Ag POC Presumptive Negative Presumptive Negative, Invalid [facility] Nasal 11/14/2024 10:4 7 AM JAVA PROJECT MANAGER Mandy TOWNSEND POINT OF CARE TEST ORDER MANJINDER Final Result Performing Organization Address City/[facility] Co de Phone Number [facility] EDW [address] * Surgical pathology (10/21/2024 11:18 AM JAVA PROJECT MANAGER) Tissue specimen (specimen) (Ileum, Biopsy) 10/21/2024 11:18 AM JAVA PROJECT MANAGER Tissue specimen (specimen) (Colon, Biopsy) 10/21/2024 11:31 AM JAVA PROJECT MANAGER Narrative PATHOLOGY [facility] - 10/22/2024 11:22 AM JAVA PROJECT MANAGER EPIC results best viewed via link to PDF [facility] Ambreen Bello Laboratory [place] [address] Note to Patients: This report may contain [...] Gender: M : 1945 (Age: 79) Address: [address] [place], [place] [address] [address] [facility] #: [id number] Taken:10/21/2024 Received:10/21/2024 Reported: 10/22/2024 Patient Type: BJ SDS Service: Gastro Location: Physician(s): Edmund Waterman [...] Surgical Pathology and Flow Cytometry Departments at [facility] as part of an ongoing supervisor quality control program and in compliance with federally mandated [...] Surgical Pathology and Flow Cytometry Departments of [facility]. It has not been cleared or approved by the [place]. S. Food and Drug Administration. IMAGES AND SCANNED DOCUMENTS, IF INCLUDED, ONLY VIEWABLE IN PDF VERSION OF REPORT Kath Shepherd MD LAB PATHOLOGY ORDERABLES Laly mckenzie Result PATHOLOGY [facility] 3rd Floor [place], [place] [phone] * Colonoscopy (10/21/2024 10:56 AM JAVA PROJECT MANAGER) Anatomical Region Laterality Modality Other Narrative Procedure Note Kath Shepherd MD - 10/21/2024 10:56 AM CST [facility] END[facility] Patient Name: Aziza Loya Procedure Date: 10/21/2024 10:56 AM Date of : 1945 Admit Type: Outpatient Age: 79 Gender: Male Attending MD: Kath Shepherd M.D. Room: [facility] ENDOSCOPY ROOM 3 Note Status: Addendum Procedure: [...] The scope was passed under direct vision.The [facility] [id number] endoscope was introducedthrough the anus and [...] Steven Ruano M.D. RB T: Report ID: [id number] Reading Location: [id number] Procedure Note Steven Ruano MD - 02/24/2024 [...] Steven Ruano M.D. RB T: Report ID: [id number] Reading Location: [place] [address] [address] IMG CT PROCEDURES Final [...] - GEN ERAL ORDERABLES Final Result TRAVIS [address] Department [place] [address] from Last 3 Months or Most Recently Relevant to Health Maintenance Insurance [facility] MEDICARE MEDICARE [facility] Member Subscriber Plan / Payer ( fective 2017-Present) Name:Aziza Loya Relation to Subscriber:Self Name:Aziza Loya Payer ID:[id number] Group ID:[id number] Type:COMMERCIAL Address: [address] MEDICARE [facility] MEDICARE [facility] MEDICARE [facility] Advance Directives For more information, please contact: [phone] * Full Code (Latest Code Status on [...] 10:45 AM 05/17/2022 5:[address] Relationship Specialty Start Date End Date Preethi Godoy NP [address] [facility] [address] [place] [address] PCP - General Family Medicine 08/25/24 Kath Shepherd MD [address] [place] [address] Consulting Physician Gastroenterology 07/22/19 Peter Ya MD [address] [place] [address] Web Content Developer Cardiology 07/22/19 Aziza Ledesma MD [address] [place] [address] Consulting Physician Neurology 07/22/19 Joshua Butterfield MD [address] [place] [address] [address] [place] [address] Consulting Physician Urology 07/03/23 Jeffery Bustillos MD [address] [place] [address] 102 [place] [address] Consulting Physician Cardiovascular Disease 02/06/24 Shimon Schofield MD [address] [facility] 120 [place] [address] Consulting Physician Vascular Surgery 02/06/24
--- OUTSIDE RECORDS SUMMARY | 2025-01-04 17:06 | XMS_ITS | Encounter Summary ---
Author Organization [facility] Healthcare Address [address] [place] [address] Care Team Providers Care Metal Fabricator Name Role Phone Kath Shepherd MD Unavailable [phone] Peter Ya MD Unavailable [phone] Vitaly Ledesma MD Unavailable [phone] Joshua Butterfield MD Unavailable [phone] Jeffery Bustillos MD Unavailable [phone] Shimon Schofield MD Unavailable Preethi Godoy NP Primary Care Provider [phone] Encounter Details Date Type Department Care Team (Late st Contact Info) Description 11/14/2024 Results Follow-Up [facility] Medical Group Convenient Care at [address] [address] Mandy Hernandez KRISTIAN [address] [place] [address] [address] [place] [address] Social History Tobacco Use Types [...] on file 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 2:24 AM DESK MANAGER Gender Identity Not on file Sexual Orientation Not on file 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 [employer] Not 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 Not on file Not on file documented as of this encounter Plan of Treatment Not on file documented as of this encounter Visit Diagnoses Not on filedocumented in this encounter Additional Health Concerns Infection Onset Date Last Indicated Resolved Time COVID: Suspected 11/14/2024 11/14/2024 11/14/2024 10:49 AM DESK MANAGER COVID: Suspected 11/14/2024 11/14/2024 11/14/2024 3:33 PM DESK MANAGER RSV, droplet 11/14/2024 11/14/2024 11/21/2024 3:07 AM DESK MANAGER COVID: Suspected 12/30/2024 12/30/2024 12/30/2024 7:54 PM CDT documented as of this encounter Care Teams Metal Fabricator Relationship Specialty Start Date End Date Preethi Godoy NP [address] [address] PCP - General Family Medicine 08/25/24 Kath Shepherd MD [address] [place] [address] Consulting Physician Gastroenterology 07/22/19 Peter Ya MD [address] [place] [address] Academic Affairs Assistant Cardiology 07/22/19 Vitaly Ledesma MD [address] [place] [address] Consulting Physician Neurology 07/22/19 Joshua Butterfield MD [address] [facility] [address] [place] [address] Consulting Physician Urology 07/03/23 Jeffery Bustillos MD [address] [facility] [address] [place], [place] [address] Consulting Physician Cardiovascular Disease 02/06/24 Shimon Schofield MD [address] [facility] [address] [place] [address] Consulting Physician Vascular Surgery 02/06/24 documented as of this encounter
--- OUTSIDE RECORDS SUMMARY | 2025-01-04 17:06 | XMS_ITS | Encounter Summary ---
Author Organization [facility] Healthcare Address [address] [place] [address] Care Team Providers Care Imaging Clerk Name Role Phone Kath Shepherd MD Unavailable [phone] Peter Ya MD Unavailable [phone] Vitaly Ledesma MD Unavailable [phone] Joshua Butterfield MD Unavailable [phone] Jeffery Bustillos MD Unavailable [phone] Shimon Schofield MD Unavailable Preethi Godoy NP Primary Care Provider [phone] Encounter Details Date Type Department Care Team (Late st Contact Info) Description 01/01/2025 Results Follow-Up 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 Not on file Not on file documented as of this encounter Plan of Treatment Not on file documented as of this encounter Visit Diagnoses Not on filedocumented in this encounter Care Teams Imaging Clerk Relationship Specialty Start Date End Date Preethi Godoy NP [address] [facility] [address] [place] [address] PCP - General Family Medicine 08/25/24 Kath Shepherd MD [address] [place] [address] Consulting Physician Gastroenterology 07/22/19 Peter Ya MD [address] [place] [address] Portable Grinding Machine Operator Cardiology 07/22/19 Vitaly Ledesma MD [address] [place] [address] Consulting Physician Neurology 07/22/19 Joshua Butterfield MD [address] [place] [address] Consulting Physician Urology 07/03/23 Jeffery Bustillos MD [address] [facility] [address] [facility] 102 [place] [address] Consulting Physician Cardiovascular Disease 02/06/24 Shimon Schofield MD [address] [facility] 120 [place] [address] Consulting Physician Vascular Surgery 02/06/24 documented as of this encounter
--- OUTSIDE RECORDS SUMMARY | 2025-01-04 17:06 | XMS_ITS | Encounter Summary ---
Author Organization [facility] Address [address] [place] [address] Phone Care Team Providers Care Assistant Merchandise Manager Name Role Phone John Kimbrough MD Primary Care Provider [phone] Kath Shepherd MD Unavailable [phone] Peter Ya MD Unavailable [phone] Vitaly Ledesma MD Unavailable [phone] Anayeli Lee MD Primary Care Provider Joshua Butterfield MD Unavailable [phone] Jeffery Bustillos MD Unavailable [phone] Shimon Schofield MD Unavailable Preethi Godoy NP Primary Care Provider [phone] Encounter Details Date Type Department Care Team [...] on file 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 2:24 AM CATERING CHEF Gender Identity Not on file Sexual Orientation Not on file 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 [employer] Not on [...] COVID: Suspected 08/21/2021 08/21/2021 08/21/2021 11:38 AM CATERING CHEF COVID: Suspected 11/14/2024 11/14/2024 11/14/2024 10:49 AM CATERING CHEF COVID: Suspected 11/14/2024 11/14/2024 11/14/2024 3:33 PM CATERING CHEF RSV, droplet 11/14/2024 11/14/2024 11/21/2024 3:07 AM CATERING CHEF COVID: Suspected 12/30/2024 12/30/2024 12/30/2024 7:54 PM CDT documented as of this encounter Care Teams Assistant Merchandise Manager Relationship Specialty Start Date End Date John Kimbrough MD [address] [facility] [address] [place] [address] PCP - General 11/08/16 07/02/23 Anayeli Lee MD [address] [place] [address] PCP - General Family Medicine 07/03/23 08/24/24 Preethi Godoy NP [address] [facility] 130 [place] [address] PCP - General Family Medicine 08/25/24 Kath Shepherd MD [address] [place] [address] Consulting Physician Gastroenterology 07/22/19 Peter Ya MD [address] [place] [address] Test Engineer Cardiology 07/22/19 Vitaly Ledesma MD [address] [place] [address] Consulting Physician Neurology 07/22/19 Joshua Butterfield MD [address] [place] [address] Consulting Physician Urology 07/03/23 Jeffery Bustillos MD [address] [address] Consulting Physician Cardiovascular Disease 02/06/24 Shimon Schofield MD [address] [address] Consulting Physician Vascular Surgery 02/06/24 documented as of this encounter
--- OUTSIDE RECORDS SUMMARY | 2025-01-04 17:06 | XMS_ITS | CONTINUITY OF CARE DOCUMENT ---
Author Name harshal caputo Address Unknown Organization [facility] Address [address] [facility] [address] [place] [address] Phone [phone] Care Team Providers Care [employer] Dean Name Role Phone Yuko LARA, Mathew Unavailable NADIA KWON MD Unavailable DOYLE LAAR, NADIA Unavailable PROBLEMS Condition Status Date Provider Notes PVD active Mathew Huntley MD CAD s/p CABG active Mathew Huntley MD HTN essential active Mathew Huntley MD ENCOUNTERS Date Type Provider Location Encounter Diag nosis - In-person encounter Office Visit Mathew Huntley MD Center Office PVDHTN essentialCAD s/p CABG VITAL SIGNS [...] Payer name Policy type / Coverage type [place] red republican ID [employer] insurance company [id number] [place] MEDICARE Medicare [id number] ADVANCE DIRECTIVES Name Date DISCUSSED - NO [...] Name Provider Procedure Notes S tatus SNOMED-CT: [id number] Physical Exam, Performed: Pulse Exam of Foot Mathew Huntley MD completed EKG Mathew Huntley MD completed SNOMED-CT: [id number] Current Medications Documented Mathew Huntley MD completed
[2025-01-04 17:16] VITALS: BP 123/65; PULSE 119; RESP 18; TEMP 38.3; O2SAT 96
--- NOTE | 2025-01-04 17:39 | ECG_ITS ---
Test Date: 2025-01-04 17:56:08 Measurements Intervals [place] Rate: 101 P: 0 MN: 0 QRS: 64 QRSD: 91 T: 69 QT: 358 QTc: 466 Interpretive Statements ATRIAL FIBRILLATION WITH RAPID VENTRICULAR RESPONSE BASELINE ARTIFACT- I, II, AVR, V1-V2 ABNORMAL ECG Compared to ECG 11/28/2024 06:23:28 No significant changes Electronically Signed On 01-04-2025 18:40:21 CDT by Yared Martinez D.O.
--- NOTE | 2025-01-04 17:40 | ED_ITS ---
HPI - Fever General Chief Complaint: Fever <Eve Del Valle PA-C - Last Filed: 01/04/25 17:42> Stated Complaint: Fever, shaking-has UTI <NAZ Landon Last Filed: 01/04/25 17:42> Time Seen by Provider: 01/04/25 18:02 <Eve Del Valle PA-C - Last Filed: 01/04/25 17:42> Focused HPI: 79-year-old male with history of dementia, AFib, chronic urinary retention with need for straight cath, CHF, CKD, cardiomyopathy presents to the emergency department with at bedside for generalized malaise for about a week. Patient went to his PCP 1 week ago and diagnosed with the UTI. He was started on cefdinir which he has been taking as prescribed. States he was feeling better until today he began developing chills, shakiness and a fever. He was brought to the ED by his for further evaluation. She denies confusion or altered mental status. The patient is denying cough or congestion, chest pain or shortness of breath, N/V/D. He is reporting some dysuria and abdominal distension. Last bowel movement was today and diarrhea which is not abnormal for him given his history of Crohn's. He is endorsing some discomfort over his bilateral flank region. He does have history kidney stones. Patient took 2 Tylenol just prior to arrival. GENERAL: Well-appearing, well-nourished, and in no acute distress. HEAD: Normocephalic, atraumatic. CHEST: Clear to auscultation. ?No respiratory distress. ABD: Hyperactive bowel sounds. Abdomen soft with no tenderness, rebound or rigidity. Mild bilateral CVA tenderness HEART: Regular rate and rhythm.? NEURO: ?Alert and oriented x3. Patient screened in triage and initial orders placed.? ?Additional care and disposition to be based upon?diagnostic testing and treatment. <NAZ Landon Last Filed: 01/04/25 17:42> Source: patient <NAZ Hurst Last Filed: 01/05/25 00:31> Mode of arrival: ambulatory <NAZ Hurst Last Filed: 01/05/25 00:31> Limitations: no limitations <Derrick Branch PA-C - Last Filed: 01/05/25 00:31> History of Present Illness HPI Narrative: Agree with MSE note above <Derrick Branch PA-C - Last Filed: 01/05/25 00:31> Related Data Home Medications: Home Medications ?Medication ?Instructions ?Recorded ?Confirmed ?Last Taken ?Type Lactobacillus 1 cap PO DAILY 11/08/23 01/04/25 01/04/25 History acidophilus-Bifidobac.animalis 2.5 billion cell capsule (Daily Probiotic) allopurinol 100 mg tablet 100 mg PO HS 11/08/23 01/04/25 01/03/25 History aspirin 81 mg tablet 81 mg PO DAILY 11/08/23 01/04/25 01/04/25 History atorvastatin 10 mg tablet 10 mg PO QPM 11/08/23 01/04/25 01/03/25 History cilostazol 100 mg tablet 100 mg PO DAILY 11/08/23 01/04/25 01/03/25 History coenzyme Q10 200 mg capsule (Co 200 mg PO DAILY 11/08/23 01/04/25 01/04/25 History Q-10) multivit with minerals-iron 18 1 tablet PO DAILY 11/08/23 01/04/25 07/07/24 09:00 History mg-folic ac 400 mcg-vit K 25 mcg tablet (Adults Multivitamin) Folcaps [place]-3 1 cap PO BID 05/12/24 01/04/25 01/04/25 History fluticasone propionate 50 1 spray intranasal Q12H 05/12/24 01/04/25 01/04/25 History mcg/actuation nasal spray,suspension furosemide 40 mg tablet 40 mg PO DAILY 05/12/24 01/04/25 01/04/25 History cyanocobalamin (vitamin B-12) 1,000 mcg IM MONTHLY 07/02/24 01/04/25 01/01/25 History 1,000 mcg/mL injection solution ferrous sulfate 325 mg (65 mg 325 mg PO DAILY@0800 11/28/24 01/04/25 11/27/24 History iron) tablet (FeroSul) risankizumab-rzaa 360 mg/2.4 mL 360 mg subcut .Every 8 weeks 11/30/24 01/04/25 Unknown History (150 mg/mL) subcut wearable injector (Skyrchasei) escitalopram oxalate 20 mg tablet 20 mg PO HS 01/04/25 01/04/25 01/03/25 History metoprolol tartrate 25 mg tablet 75 mg PO HS 01/04/25 01/04/25 01/03/25 History tamsulosin 0.4 mg capsule 0.4 mg PO HS 01/04/25 01/04/25 Unknown History <Eve Del Valle PA-C - Last Filed: 01/04/25 17:42> Allergies/Adverse Reactions: Allergies Allergy/AdvReac Type Severity Reaction Status Date / Time No Known Allergies Allergy Verified 01/04/25 16:56 <Eve Del Valle PA-C - Last Filed: 01/04/25 17:42> Review of Systems 2 Review of Systems: All systems as dictated in HPI <Derrick Branch PA-C - Last Filed: 01/05/25 00:31> [facility] Past Medical History Medical History: Medical History (Updated 01/04/25 @ 21:27 by Derrick Branch PA-C) 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 Intermittent self-catheterization of bladder Cardiomyopathy Recurrent incisional hernia Atrial fibrillation with RVR Heart failure Chronic anemia Vascular dementia Seizures B12 deficiency Depression Gout Osteoarthritis Iron deficiency anemia Benign prostatic hyperplasia Kidney stones Chronic kidney disease, stage 3 Crohn's disease Hyperlipidemia Hypertension Peripheral vascular disease Coronary artery disease <Eve Del Valle PA-C - Last Filed: 01/04/25 17:42> Surgical History Surgical History: Surgical History S/P CABG (coronary artery bypass graft) History of bilateral cataract extraction History of lithotripsy History of partial colectomy X2 for to bowel obstructions and fistula secondary to Crohn's disease. History of cholecystectomy History of vascular surgery Bilateral lower extremity stents. History of coronary artery bypass graft <Eve Del Valle PA-C - Last Filed: 01/04/25 17:42> Family History Family History: Family History Father Myocardial infarct Cerebrovascular accident Mother Breast cancer Sibling Crohn's disease <Eve Del Valle PA-C - Last Filed: 01/04/25 17:42> Social History Social History: Social History Social History: Surrogate decision maker: Sarah Oreilly, spouse. Code status: Do not resuscitate. Smoking packs per day: 2 Smoking cigarettes per day: 40.0 Years smoked: 25 Smoking pack-years: 50.00 Smoking status: Former smoker Tobacco type: cigarettes Second hand tobacco smoke exposure: No Alcohol intake: former Substance use: never Substance use type: does not use Do You Feel Safe in your Home?: Yes Lack of Transportation: No Lack of Food: Never True Current Housing: I Have Housing Concerned About Future Housing: No Difficulty Paying Gas/Electric Bills: No Difficulty Paying for Meds: No Currently Unemployed: No Education: Trade/Vocational Certificate Difficulty w/ Childcare or Family Care: No Additional living arrangements comments: The patient lives with his in [place]. Additional occupation/education comments: Retired from [employer]. Spiritual care concerns: No <Eve Del Valle PA-C - Last Filed: 01/04/25 17:42> Exam 2 Narrative: GENERAL: Well-appearing, well-nourished, and in no acute distress. HEAD: Normocephalic, atraumatic. EYES: PERRLA and EOMI. ENT: Nares clear, no rhinorrhea or epistaxis. Mucous membranes moist. Oropharynx without tonsillar hypertrophy exudate or other lesions. NECK: Supple. No adenopathy or masses. CHEST: No respiratory distress. Clear to auscultation. No wheezes rales or rhonchi HEART: Regular rate and rhythm. No murmur heard. Normal peripheral pulses. ABDOMEN: Soft, nontender, nondistended, normal active bowel sounds. MSK: Normal range of motion. No edema. SKIN: Warm, dry, no rash. NEURO: Alert and oriented x4. No focal deficits. PSYCH: Normal mood and affect. <Derrick Branch PA-C - Last Filed: 01/05/25 00:31> Course CONTROL SYSTEMS ENGINEER/PA Physician Supervision I agree with midlevel documentation; I performed the medical decision making component of this evaluation. <Daniela Noriega MD - Last Filed: 01/05/25 12:08> Vital Signs Vital signs: Vital Signs Temperature 101 F H 01/04/25 17:16 Pulse Rate 119 H 01/04/25 17:16 Respiratory Rate 18 01/04/25 17:16 Blood Pressure 123/65 01/04/25 17:16 Pulse Oximetry 96 01/04/25 17:16 Temperature 98.5 F 01/05/25 07:32 Pulse Rate 121 H 01/05/25 08:24 Respiratory Rate 16 01/05/25 07:32 Blood Pressure 112/64 01/05/25 07:32 Pulse Oximetry 98 01/05/25 07:32 Oxygen Delivery Room Air 01/04/25 23:08 <Eve Del Valle PA-C - Last Filed: 01/04/25 17:42> Vital Signs Temperature 101 F H 01/04/25 17:16 Pulse Rate 119 H 01/04/25 17:16 Respiratory Rate 18 01/04/25 17:16 Blood Pressure 123/65 01/04/25 17:16 Pulse Oximetry 96 01/04/25 17:16 Temperature 98.5 F 01/05/25 07:32 Pulse Rate 121 H 01/05/25 08:24 Respiratory Rate 16 01/05/25 07:32 Blood Pressure 112/64 01/05/25 07:32 Pulse Oximetry 98 01/05/25 07:32 Oxygen Delivery Room Air 01/04/25 23:08 <Derrick Branch PA-C - Last Filed: 01/05/25 00:31> Vital Signs Temperature 101 F H 01/04/25 17:16 Pulse Rate 119 H 01/04/25 17:16 Respiratory Rate 18 01/04/25 17:16 Blood Pressure 123/65 01/04/25 17:16 Pulse Oximetry 96 01/04/25 17:16 Temperature 98.5 F 01/05/25 07:32 Pulse Rate 121 H 01/05/25 08:24 Respiratory Rate 16 01/05/25 07:32 Blood Pressure 112/64 01/05/25 07:32 Pulse Oximetry 98 01/05/25 07:32 Oxygen Delivery Room Air 01/04/25 23:08 <Daniela Noriega MD - Last Filed: 01/05/25 12:08> MDM - Fever MDM Narrative Medical decision making narrative: This is a 79-year-old male who presents to the ED for chief complaint of fevers, chills and generalized fatigue. On arrival vitals show elevated heart rate of 119. He has known atrial fibrillation and does appear in AFib on arrival. Pressure stable, however he is febrile with a temperature of a 101? F. he is meeting SIRS criteria on arrival. Lab work shows normal white count and stable mild anemia. BUN elevated at 22 and creatinine at 2.13, however not too far off from his baseline. CRP mildly elevated at 1.3. Viral swabs negative CT abdomen without contrast: IMPRESSION: 1. No evidence of appendicitis, colitis or intestinal obstruction. 2. Right basilar atelectasis versus pneumonia with pleural effusion. Left basilar atelectasis versus pneumonia. 3. Nodule in the right lower lobe measuring 6 mm which was not seen in the previous study. 3 months follow-up advised. 4. Thickened wall of the urinary bladder. Evaluation for cystitis advised. 5. Multiple hypodensities in the bones of the pelvis which may indicate metastatic lesions. Clinical correlation advised Presentation consistent with likely pneumonia with shaking chills, fever and reported cough. Patient was started on community-acquired antibiotics for pneumonia. Gentle hydration with history of CHF. Spoke with hospitalist who accepts the patient for admission under A[facility]SOS. Patient and family are understanding and agreeable with plan for admission at this time. <Derrick Branch PA-C - Last Filed: 01/05/25 00:31> This is a 79-year-old male who presents to the ED for chief complaint of fevers, chills and generalized fatigue. On arrival vitals show elevated heart rate of 119. He has known atrial fibrillation and does appear in AFib on arrival. Pressure stable, however he is febrile with a temperature of a 101? F. he is meeting SIRS criteria on arrival. Lab work shows normal white count and stable mild anemia. BUN elevated at 22 and creatinine at 2.13, however not too far off from his baseline. CRP mildly elevated at 1.3. Viral swabs negative CT abdomen without contrast: IMPRESSION: 1. No evidence of appendicitis, colitis or intestinal obstruction. 2. Right basilar atelectasis versus pneumonia with pleural effusion. Left basilar atelectasis versus pneumonia. 3. Nodule in the right lower lobe measuring 6 mm which was not seen in the previous study. 3 months follow-up advised. 4. Thickened wall of the urinary bladder. Evaluation for cystitis advised. 5. Multiple hypodensities in the bones of the pelvis which may indicate metastatic lesions. Clinical correlation advised <Daniela Noriega MD - Last Filed: 01/05/25 12:08> Lab Data Result diagrams: 01/05/25 04:57 01/05/25 04:57 <Eve Del Valle PA-C - Last Filed: 01/04/25 17:42> Labs: Lab Results 01/04/25 01/04/25 Range/Units 18:17 20:41 WBC 8.6 (4.5-10.0) K/mm3 RBC 3.37 L (4.6-6.20) M/mm3 Hgb 10.3 L (14.0-18.0) g/dL Hct 33.4 L (42.0-52.0) % MCV 99.1 (80-100) fl MCH 30.6 (26-34) pg MCHC 30.8 L (32-36) g/dl RDW 14.3 (11.5-14.5) % Plt Count 185 (150-375) k/mm3 MPV 9.5 (7.4-10.4) fl Immature Gran % (Auto) 0.2 (0-0.5) % Neut % (Auto) 82.0 H (45.5-73.1) % Lymph % (Auto) 5.9 L (18.3-44.2) % [place] % (Auto) 10.0 H (2.6-8.5) % Eos % (Auto) 1.6 (0-4.4) % Baso % (Auto) 0.3 (0.2-1.2) % Lymph # (Auto) 0.51 L (0.9-3.2) K/mm3 [place] # (Auto) 0.9 H (0.1-0.6) K/mm3 Eos # (Auto) 0.1 (0-0.3) K/mm3 Baso # (Auto) 0.0 (0.0-0.1) K/mm3 Abs Immat Gran (auto) 0.02 (0.00-0.031) K/mm3 Absolute Neuts (auto) 7.1 H (1.3-6.7) K/mm3 Absolute Nucleated RBC 0.000 (0.0-0.012) K/mm3 Nucleated RBC % 0.0 (0.0-0.2) % PT 15.7 H (11.1-14.7) Seconds INR 1.2 APTT 31.2 (22.3-36.8) Seconds Sodium 140 (137-145) mmol/L Potassium 3.6 (3.4-5.0) mmol/L Chloride 102 (98-107) mmol/L Carbon Dioxide 29 (22-30) mmol/L Anion Gap 9 (4-12) mmol/L BUN 22 H (9-20) mg/dL Creatinine 2.13 H (0.7-1.3) mg/dL Estim Creat Clear Calc 24 ml/min Estimated GFR 30 L (59 - ) Glucose 103 (65-110) mg/dL Lactic Acid 1.1 (0.7-2.0) mmol/L Calcium 8.2 L (8.4-10.2) mg/dL Total Bilirubin 0.4 (0.2-1.3) mg/dL AST 46 (17-59) U/L ALT 56 H (6-50) U/L Alkaline Phosphatase 107 (38-126) U/L Troponin I < 0.012 (0.000-0.034) ng/mL C-Reactive Protein 1.3 H (<1.0) mg/dL Total Protein 8.0 (6.3-8.2) g/dL Albumin 4.0 (3.5-5.1) g/dL Urine Color Yellow (Yellow) Urine Appearance Clear (Clear) Urine pH 5.5 (5.0-9.0) Ur Specific [place] 1.012 (1.001-1.035) Urine Protein Trace (Negative) mg/dL Urine Glucose (UA) Negative (Negative) mg/dL Urine Ketones Negative (Negative) mg/dL Ur Blood (Man) Trace (Negative) Urine Nitrate Negative (Negative) Urine Bilirubin Negative (Negative) Urine Urobilinogen 0.2 (<2.0) mg/dL Leukocyte Esterase Rfl Negative (Negative) LUCIO/UL Urine RBC 0-2 (0-2) /hpf Urine WBC 0-5 (0-3) /hpf Ur Squamous Epith Cells None seen (Few) /hpf Urine Bacteria None seen /hpf Urine Casts 3-5 Influenza A (RT-PCR) Negative (Negative) Influenza B (RT-PCR) Negative (Negative) RSV (RT-PCR) Negative (Negative) SARS-CoV-2 RNA (RT-PCR) Negative (Negative) <Eve Del Valle PA-C - Last Filed: 01/04/25 17:42> Lab Results 01/04/25 01/04/25 Range/Units 18:17 20:41 WBC 8.6 (4.5-10.0) K/mm3 RBC 3.37 L (4.6-6.20) M/mm3 Hgb 10.3 L (14.0-18.0) g/dL Hct 33.4 L (42.0-52.0) % MCV 99.1 (80-100) fl MCH 30.6 (26-34) pg MCHC 30.8 L (32-36) g/dl RDW 14.3 (11.5-14.5) % Plt Count 185 (150-375) k/mm3 MPV 9.5 (7.4-10.4) fl Immature Gran % (Auto) 0.2 (0-0.5) % Neut % (Auto) 82.0 H (45.5-73.1) % Lymph % (Auto) 5.9 L (18.3-44.2) % [place] % (Auto) 10.0 H (2.6-8.5) % Eos % (Auto) 1.6 (0-4.4) % Baso % (Auto) 0.3 (0.2-1.2) % Lymph # (Auto) 0.51 L (0.9-3.2) K/mm3 [place] # (Auto) 0.9 H (0.1-0.6) K/mm3 Eos # (Auto) 0.1 (0-0.3) K/mm3 Baso # (Auto) 0.0 (0.0-0.1) K/mm3 Abs Immat Gran (auto) 0.02 (0.00-0.031) K/mm3 Absolute Neuts (auto) 7.1 H (1.3-6.7) K/mm3 Absolute Nucleated RBC 0.000 (0.0-0.012) K/mm3 Nucleated RBC % 0.0 (0.0-0.2) % PT 15.7 H (11.1-14.7) Seconds INR 1.2 APTT 31.2 (22.3-36.8) Seconds Sodium 140 (137-145) mmol/L Potassium 3.6 (3.4-5.0) mmol/L Chloride 102 (98-107) mmol/L Carbon Dioxide 29 (22-30) mmol/L Anion Gap 9 (4-12) mmol/L BUN 22 H (9-20) mg/dL Creatinine 2.13 H (0.7-1.3) mg/dL Estim Creat Clear Calc 24 ml/min Estimated GFR 30 L (59 - ) Glucose 103 (65-110) mg/dL Lactic Acid 1.1 (0.7-2.0) mmol/L Calcium 8.2 L (8.4-10.2) mg/dL Total Bilirubin 0.4 (0.2-1.3) mg/dL AST 46 (17-59) U/L ALT 56 H (6-50) U/L Alkaline Phosphatase 107 (38-126) U/L Troponin I < 0.012 (0.000-0.034) ng/mL C-Reactive Protein 1.3 H (<1.0) mg/dL Total Protein 8.0 (6.3-8.2) g/dL Albumin 4.0 (3.5-5.1) g/dL Urine Color Yellow (Yellow) Urine Appearance Clear (Clear) Urine pH 5.5 (5.0-9.0) Ur Specific [place] 1.012 (1.001-1.035) Urine Protein Trace (Negative) mg/dL Urine Glucose (UA) Negative (Negative) mg/dL Urine Ketones Negative (Negative) mg/dL Ur Blood (Man) Trace (Negative) Urine Nitrate Negative (Negative) Urine Bilirubin Negative (Negative) Urine Urobilinogen 0.2 (<2.0) mg/dL Leukocyte Esterase Rfl Negative (Negative) LUCIO/UL Urine RBC 0-2 (0-2) /hpf Urine WBC 0-5 (0-3) /hpf Ur Squamous Epith Cells None seen (Few) /hpf Urine Bacteria None seen /hpf Urine Casts 3-5 Influenza A (RT-PCR) Negative (Negative) Influenza B (RT-PCR) Negative (Negative) RSV (RT-PCR) Negative (Negative) SARS-CoV-2 RNA (RT-PCR) Negative (Negative) <Derrick Branch PA-C - Last Filed: 01/05/25 00:31> Lab Results 01/04/25 01/04/25 Range/Units 18:17 20:41 WBC 8.6 (4.5-10.0) K/mm3 RBC 3.37 L (4.6-6.20) M/mm3 Hgb 10.3 L (14.0-18.0) g/dL Hct 33.4 L (42.0-52.0) % MCV 99.1 (80-100) fl MCH 30.6 (26-34) pg MCHC 30.8 L (32-36) g/dl RDW 14.3 (11.5-14.5) % Plt Count 185 (150-375) k/mm3 MPV 9.5 (7.4-10.4) fl Immature Gran % (Auto) 0.2 (0-0.5) % Neut % (Auto) 82.0 H (45.5-73.1) % Lymph % (Auto) 5.9 L (18.3-44.2) % [place] % (Auto) 10.0 H (2.6-8.5) % Eos % (Auto) 1.6 (0-4.4) % Baso % (Auto) 0.3 (0.2-1.2) % Lymph # (Auto) 0.51 L (0.9-3.2) K/mm3 [place] # (Auto) 0.9 H (0.1-0.6) K/mm3 Eos # (Auto) 0.1 (0-0.3) K/mm3 Baso # (Auto) 0.0 (0.0-0.1) K/mm3 Abs Immat Gran (auto) 0.02 (0.00-0.031) K/mm3 Absolute Neuts (auto) 7.1 H (1.3-6.7) K/mm3 Absolute Nucleated RBC 0.000 (0.0-0.012) K/mm3 Nucleated RBC % 0.0 (0.0-0.2) % PT 15.7 H (11.1-14.7) Seconds INR 1.2 APTT 31.2 (22.3-36.8) Seconds Sodium 140 (137-145) mmol/L Potassium 3.6 (3.4-5.0) mmol/L Chloride 102 (98-107) mmol/L Carbon Dioxide 29 (22-30) mmol/L Anion Gap 9 (4-12) mmol/L BUN 22 H (9-20) mg/dL Creatinine 2.13 H (0.7-1.3) mg/dL Estim Creat Clear Calc 24 ml/min Estimated GFR 30 L (59 - ) Glucose 103 (65-110) mg/dL Lactic Acid 1.1 (0.7-2.0) mmol/L Calcium 8.2 L (8.4-10.2) mg/dL Total Bilirubin 0.4 (0.2-1.3) mg/dL AST 46 (17-59) U/L ALT 56 H (6-50) U/L Alkaline Phosphatase 107 (38-126) U/L Troponin I < 0.012 (0.000-0.034) ng/mL C-Reactive Protein 1.3 H (<1.0) mg/dL Total Protein 8.0 (6.3-8.2) g/dL Albumin 4.0 (3.5-5.1) g/dL Urine Color Yellow (Yellow) Urine Appearance Clear (Clear) Urine pH 5.5 (5.0-9.0) Ur Specific [place] 1.012 (1.001-1.035) Urine Protein Trace (Negative) mg/dL Urine Glucose (UA) Negative (Negative) mg/dL Urine Ketones Negative (Negative) mg/dL Ur Blood (Man) Trace (Negative) Urine Nitrate Negative (Negative) Urine Bilirubin Negative (Negative) Urine Urobilinogen 0.2 (<2.0) mg/dL Leukocyte Esterase Rfl Negative (Negative) LUCIO/UL Urine RBC 0-2 (0-2) /hpf Urine WBC 0-5 (0-3) /hpf Ur Squamous Epith Cells None seen (Few) /hpf Urine Bacteria None seen /hpf Urine Casts 3-5 Influenza A (RT-PCR) Negative (Negative) Influenza B (RT-PCR) Negative (Negative) RSV (RT-PCR) Negative (Negative) SARS-CoV-2 RNA (RT-PCR) Negative (Negative) <Daniela Noriega MD - Last Filed: 01/05/25 12:08> Discharge Plan Discharge Clinical Impression: Fever, Atrial fibrillation, Abnormal CT scan <Eve Del Valle PA-C - Last Filed: 01/04/25 17:42> Patient Disposition: Still a Patient <Eve DelV alle PA-C - Last Filed: 01/04/25 17:42> Condition: Stable <Eve Del Valle PA-C - Last Filed: 01/04/25 17:42>
[2025-01-04 18:22] VITALS: TEMP 37.1
[2025-01-04 18:33] LABS: Basophils Percent Auto 0.3 % (0.2-1.2); Eosinophils Absolute Auto 0.1 K/mm3 (0-0.3); Eosinophils Percent Auto 1.6 % (0-4.4); Hematocrit 33.4 % (42.0-52.0); Hemoglobin 10.3 g/dL (14.0-18.0); Immature Granulocyte Absolute 0.02 K/mm3 (0.00-0.031); Immature Granulocyte Percent A 0.2 % (0-0.5); Lymphocytes Absolute Auto 0.51 K/mm3 (0.9-3.2); Lymphocytes Percent Auto 5.9 % (18.3-44.2); Mean Corpuscular HGB Conc 30.8 g/dl (32-36); Mean Corpuscular Hemoglobin 30.6 pg (26-34); Mean Corpuscular Volume 99.1 fl (80-100); Mean Platelet Volume 9.5 fl (7.4-10.4); Monocytes Absolute Auto 0.9 K/mm3 (0.1-0.6); Neutrophils Absolute Auto 7.1 K/mm3 (1.3-6.7); Platelet Count Result 185 k/mm3 (150-375); Red Blood Count 3.37 M/mm3 (4.6-6.20); Red Cell Distribution Width 14.3 % (11.5-14.5); White Blood Count 8.6 K/mm3 (4.5-10.0)
--- OUTSIDE RECORDS SUMMARY | 2025-01-04 18:38 | XMS_ITS | CONTINUITY OF CARE DOCUMENT ---
Author Name harshal caputo Address Unknown Organization [facility] Address [address] [place] [address] Phone [phone] Care Team Providers Care Roofer Apprentice Name Role Phone Yuko LARA, Mathew Unavailable [phone] NADIA KWON MD Unavailable NADIA KWON MD Unavailable PROBLEMS Condition Status Date Provider Notes PVD active Mathew Huntley MD HTN essential active Mathew Huntley MD CAD s/p CABG active Mathew Huntley MD ENCOUNTERS Date Type Provider Location Encounter Diag nosis - In-person encounter Office Visit Mathew Huntley MD [place] [facility] PVDHTN essentialCAD s/p CABG VITAL SIGNS [...] Payer name Policy type / Coverage type Ray red constitution party ID [employer] insurance company [id number] [place] [employer] Medicare [id number] ADVANCE DIRECTIVES Name Date DISCUSSED - NO [...] Name Provider Procedure Notes S tatus SNOMED-CT: [id number] Physical Exam, Performed: Pulse Exam of Foot Mathew Huntley MD completed EKG Mathew Huntley MD completed SNOMED-CT: [id number] Current Medications Documented Mathew Huntley MD completed
--- OUTSIDE RECORDS SUMMARY | 2025-01-04 18:38 | XMS_ITS | Encounter Summary ---
Author Organization [facility] Address [address] [place] [address] Care Team Providers Care Workers Compensation Coordinator Name Role Phone Kath Shepherd MD Unavailable [phone] Peter Ya MD Unavailable [phone] Vitaly Ledesma MD Unavailable [phone] Joshua Butterfield MD Unavailable [phone] Jeffery Bustillos MD Unavailable [phone] Shimon Schofield MD Unavailable Preethi Godoy NP Primary Care Provider [phone] Encounter Details Date Type Department Care Team (Late st Contact Info) Description 11/24/2024 Results Follow-Up [facility] Primary Care at [address] [address] Preethi Godoy NP [address] [place] [address] [address] [place] [address] Social History Tobacco Use Types [...] on file 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 Gender Identity Not on file Sexual Orientation Not on file 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 Start Date 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 [employer] Not on file Not on file Not on file documented as of this encounter Plan of Treatment Not on file documented as of this encounter Visit Diagnoses Not on filedocumented in this encounter Additional Health Concerns Infection Onset Date Last Indicated Resolved Time COVID: Suspected 12/30/2024 12/30/2024 12/30/2024 7:54 PM CDT documented as of this encounter Care Teams Workers Compensation Coordinator Relationship Specialty Start Date End Date Preethi Godoy NP [address] [facility] [address] [place] [address] PCP - General Family Medicine 08/25/24 Kath Shepherd MD [address] [place] [address] Consulting Physician Gastroenterology 07/22/19 Peter Ya MD [address] [place] [address] Hand Stripper Cardiology 07/22/19 Vitaly Ledesma MD [address] [place] [address] Consulting Physician Neurology 07/22/19 Joshua Butterfield MD [address] [place] [address] Consulting Physician Urology 07/03/23 Jeffery Bustillos MD [address] [facility] [address] [place] [address] Consulting Physician Cardiovascular Disease 02/06/24 Shimon Schofield MD [address] [facility] [address] [place] [address] Consulting Physician Vascular Surgery 02/06/24 documented as of this encounter
--- OUTSIDE RECORDS SUMMARY | 2025-01-04 18:38 | XMS_ITS | Encounter Summary ---
Author Organization [facility] Address [address] [place] [address] Care Team Providers Care Global Professional Name Role Phone John Kimbrough MD Primary Care Provider Kath Shepherd MD Unavailable [phone] Peter Ya MD Unavailable [phone] Vitaly Ledesma MD Unavailable [phone] Anayeli Lee MD Primary Care Provider Joshua Butterfield MD Unavailable [phone] Jeffery Bustillos MD Unavailable [phone] Shimon Schofield MD Unavailable Preethi Godoy NP Primary Care Provider [phone] Encounter Details Date Type Department Care Team (Late st Contact Info) Description 03/26/2019 Documentation [facility] [address] [place] [address] Kaykay Jason, TEDDY Social History Tobacco Use Types Packs/Day Years Used Date Smoking Tobacco: Former Smokeless Tobacco: Never Alcohol Use Standard Drinks/Week Comments No 0 (1 standard drink = 0.6 oz pur e alcohol) Sex and Gender Information Value Date Recorded Sex Assigned at Not on file 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 2:24 AM [employer] Gender Identity Not on file Sexual Orientation Not on file documented as of this encounter Plan of Treatment Not on file documented as of this encounter Visit Diagnoses Not on filedocumented in this encounter Additional Health Concerns Infection Onset Date Last Indicated Resolved Time COVID: Suspected 08/21/2021 08/21/2021 08/21/2021 11:38 AM [employer] COVID: Suspected 11/14/2024 11/14/2024 11/14/2024 10:49 AM [employer] COVID: Suspected 11/14/2024 11/14/2024 11/14/2024 3:33 PM [employer] RSV, droplet 11/14/2024 11/14/2024 11/21/2024 3:07 AM [employer] COVID: Suspected 12/30/2024 12/30/2024 12/30/2024 7:54 PM CDT documented as of this encounter Care Teams Global Professional Relationship Specialty Start Date End Date John Kimbrough MD [address] [facility] [address] [place] [address] PCP - General 11/08/16 07/02/23 Anayeli Lee MD [address] [place] [address] PCP - General Family Medicine 07/03/23 08/24/24 Preethi Godoy NP [address] [facility] [address] [place] [address] PCP - General Family Medicine 08/25/24 Kath Shepherd MD [address] [place] [address] Consulting Physician Gastroenterology 07/22/19 Peter Ya MD [address] [place] [address] Nurse Orthopedic Cardiology 07/22/19 Vitaly Ledesma MD [address] [place] [address] Consulting Physician Neurology 07/22/19 Joshua Butterfield MD [address] [facility] [address] [facility] [address] [place] [address] Consulting Physician Urology 07/03/23 Jeffery Bustillos MD [address] [place] [address] Consulting Physician Cardiovascular Disease 02/06/24 Shimon Schofield MD [address] [address] Consulting Physician Vascular Surgery 02/06/24 documented as of this encounter
--- OUTSIDE RECORDS SUMMARY | 2025-01-04 18:38 | XMS_ITS | Clinical Summary ---
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
--- OUTSIDE RECORDS SUMMARY | 2025-01-04 18:38 | XMS_ITS | Clinical Summary ---
Author Organization [facility] Address [address] [place] [address] Care Team Providers Care Stable Attendant Name Role Phone Kath Shepherd MD Unavailable [phone] Peter Ya MD Unavailable Aziza Ledesma MD Unavailable [phone] Joshua Butterfield MD Unavailable [phone] Jeffery Bustillos MD Unavailable [phone] Shimon Schofield MD Unavailable Preethi Godoy NP Primary Care Provider [phone] Allergies No known active allergies Medications coenzyme Q10 10 mg capsule Take 2 capsules (20 mg total) by mouth every morning Active uylue-5-tjc-ep a-dpa-fish oil 1,050-1,200 mg capsule Take 1 [...] Route Frequency Start Date End Date Status [facility] BMS-511691/placebo (/[id number]) capsule 4 capsuleIndications:Crohn' s disease of both small and large intestine with other complication (HCC) 4 capsule oral 2 times daily 05/21/2022 Active [facility] BMS-841128/placebo (/[id number]) capsule 4 capsuleIndications:Crohn' s disease of both small and large intestine with other complication (HCC) 4 capsule oral 2 times daily 06/18/2022 Active [facility] BMS-891665/placebo (/[id number]) capsule 4 capsuleIndications:Crohn' s disease of both small and large intestine with other complication (HCC) 4 capsule oral 2 times daily 07/09/2022 Active [facility] BMS-089847/placebo (/[id number]) capsule 4 capsuleIndications:Crohn' s disease of both small and large intestine with other complication (HCC) 4 capsule oral 2 times daily 08/07/2022 Active [facility] BMS-093996/placebo (/[id number]) capsule 4 capsuleIndications:Crohn' s disease of both small and large intestine with other complication (HCC) 4 capsule oral 2 times daily 09/19/2022 Active [facility] BMS-508402/placebo (/[id number]) capsule 4 capsuleIndications:Crohn' s disease of both [...] modification Assessment & Plan (10/03/2023 1:12 PM INVENTORY WORKER): Chronic. Due to prior peripheral arterial disease. [...] urologist Assessment & Plan (10/03/2023 1:12 PM INVENTORY WORKER): Chronic. Continue medication care per Urology Assessment & Plan (07/03/2023 5:22 PM CDT): Follows with [facility] Dr. Butterfield. Patient on finasteride and does intermittent straight catheterization Protein-calorie malnutrition, mild 07/03/2023 Overview (07/03/2023): Patient with low BMI. Less protein level was low. Monitor weight Assessment & Plan (02/06/2024 4:55 PM CDT): Patient has had borderline protein calorie malnutrition. Monitor his protein levels on labs. Encourage adequate nutrition. Avoid additional weight loss Assessment & Plan (10/03/2023 1:12 PM INVENTORY WORKER): Chronic. BMI remains at the lower end arrange. Encouraged adequate nutrition. Monitor History of gout 07/03/2023 Assessment & Plan (02/06/2024 4:55 PM CDT): Chronic. Denies history of recent flares. Continue allopurinol for prophylaxis. Check uric acid Assessment & Plan (10/03/2023 1:12 PM INVENTORY WORKER): Chronic. Denies any history of gout in [...] 03/14/2023 Assessment & Plan (10/03/2023 1:13 PM INVENTORY WORKER): Chronic. May occasionally increase in size. Minimal pain. Has deferred elective repair in the past Persistent atrial fibrillation 12/04/2021 Assessment & Plan (11/23/2024 1:36 PM INVENTORY WORKER): Rate controlled in office, continuing follow up with Cardiology. Assessment & Plan (03/01/2024 7:51 AM CDT): Stable continue metoprolol. Assessment & Plan (02/06/2024 4:55 PM CDT): Chronic. Controlled rate with metoprolol. Continue. Continue aspirin for stroke prophylaxis Assessment & Plan (10/03/2023 1:12 PM INVENTORY WORKER): Chronic. Continue risk factor modification. Continue ASA [...] Monitor Assessment & Plan (10/03/2023 1:11 PM INVENTORY WORKER): Chronic. Denies significant worsening. No agitation recently. [...] They denies significant agitation Cerebral amyloid angiopathy ([facility]) 02/15/2020 Assessment & Plan (02/06/2024 4:54 PM CDT): Chronic. Memory has worsened slightly in the last year. He does have some fluctuations at times. No real agitation. Target good blood pressure control. Continue aspirin for his other issues. Would be cautious with more aggressive anticoagulation given history of amyloid angiopathy Assessment & Plan (10/03/2023 1:11 PM INVENTORY WORKER): Chronic. Denies any progression of symptoms Assessment & Plan (07/03/2023 5:18 PM CDT): Chronic. Control blood pressure and modify risk factors as able. Continue aspirin given AFib but would be cautious with stronger anticoagulants given increased bleeding risk with cerebral amyloid angiopathy Peripheral artery disease 09/10/2019 Overview (09/10/2019): Added automatically from request for surgery [id number] Assessment & Plan (09/03/2024 10:57 AM INVENTORY WORKER): Stable lower extremity occlusive disease. Continue risk [...] duplex. Assessment & Plan (10/03/2023 1:11 PM INVENTORY WORKER): Chronic. Denies recent claudication symptoms. Continue ASA, statin and Pletal Assessment & Plan (07/03/2023 5:22 PM CDT): Chronic. 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 Denies current sores on his feet. Follows with Podiatry in [place]. On cilostazol Iron deficiency anemia due to [...] 02/17/2019 Assessment & Plan (11/23/2024 1:35 PM INVENTORY WORKER): BP normal in office, continuing current regimen. [...] dehydrate Assessment & Plan (10/03/2023 1:10 PM INVENTORY WORKER): Chronic. Blood pressure controlled. Continue current prescription [...] (01/26/2019): Added automatically from request for surgery [id number] Assessment & Plan (02/06/2024 4:52 PM CDT): Chronic. Disease has been stable. Minimal symptoms. He does have to be cautious with eating too many fruits and vegetables as he notes this does cause some GI distress. He remains controlled with Skyrezi and hydroxychloroquine. He will continue Assessment & Plan (10/03/2023 1:10 PM INVENTORY WORKER): Chronic. Symptomatically improved per patient. Continue medication and care per GI Assessment & Plan (07/03/2023 5:20 PM CDT): Chronic. Follows with Gastroenterology. On scar oz and sulfasalazine. Continue medication and care per them CAD (coronary artery disease) 12/04/2018 Assessment & Plan (09/03/2024 10:57 AM INVENTORY WORKER): Stable continue ASA and Lasix Assessment & Plan (02/06/2024 4:51 PM CDT): Chronic. Denies chest pain. Continue risk factor modification with statin, aspirin, blood pressure control. Target LDL less than 70 Assessment & Plan (10/03/2023 1:10 PM INVENTORY WORKER): Chronic. Denies chest pain. Follows with cardiology. [...] 12/30/2017 Assessment & Plan (08/25/2024 4:06 PM INVENTORY WORKER): Updated labs ordered, Hemoglobin was 9 in [...] infusions Assessment & Plan (10/03/2023 1:10 PM INVENTORY WORKER): Chronic. Follows with GI and Hematology. Has received iron infusions. Often does B12 injections Assessment & Plan (07/03/2023 5:15 PM CDT): Chronic. Follows with GI and Hematology. Received iron infusions Hypercholesterolemia 02/05/2011 Assessment & Plan (09/03/2024 10:57 AM INVENTORY WORKER): Stable continue statin therapy. Assessment & Plan (03/01/2024 7:50 AM CDT): Stable continue statin therapy. Assessment & Plan (02/06/2024 4:53 PM CDT): Chronic. Tolerates atorvastatin. Continue. Check cholesterol level and adjust for an LDL goal of at least less than 70 with optimal less than 55 Assessment & Plan (10/03/2023 1:10 PM INVENTORY WORKER): Chronic. Tolerates current prescription medication. Continue Assessment [...] (05/29/2021): Added automatically from request for surgery [id number] Crohn's disease with rectal bleeding 12/10/2018 07/03/2023 Overview (12/10/2018): Added automatically from request for surgery [id number] Peripheral vascular disease 02/13/2017 07/03/2023 Gastrointestinal hemorrhage 07/03/2023 Acute renal failure 07/03/20 23 Crohn's disease of colon with rectal bleeding 07/03/2023 Assessment & Plan (12/04/2021 1:34 PM CDT): Has upcoming endoscopy. Encounters Date Type Department Care Team Description 01/04/2025 Nurse Triage [facility] Primary Care at [address] [phone] Preethi Godoy NP 01/01/2025 Results Follow-Up [facility] at [address] [phone] Brie Mandel NP 12/30/2024 11:55 PM CDT - 12/30/2024 11:59 PM CDT Hospital Encounter [address] [address] Acute cystitis with hematuria; Nasopharyngitis acute Discharge Disposition: Discharge to home or self care 12/30/2024 7:30 PM CDT Office Visit [facility] Care at [address] [phone] Gladys Valdovinos NP Acute cystitis with hematuria (Primary Dx); Nasopharyngitis acute 11/29/2024 Results Follow-Up [facility] at [address] [phone] Preethi Godoy NP Pulmonary nodule 1 cm or greater in diameter (Primary Dx) 11/29/2024 Orders Only [facility] at [address] [phone] Preethi Godoy NP Abnormal CXR; Pneumonia of both lungs due to infectious organism, unspecified part of lung; Cough, unspecified type; Fever, unspecified fever cause 11/26/2024 Orders Only [facility] Primary Care at [address] [phone] Preethi Godoy NP 11/26/2024 Telephone [facility] at [address] [phone] Preethi Godoy NP Medical Question/Miscellaneo us 11/26/2024 Orders Only [facility] at [address] [phone] Preethi Godoy NP 11/26/2024 Telephone [facility] at [address] [phone] Preethi Godoy EDGE MOLDER Symptom Based Call 11/24/2024 Results Follow-Up [facility] Care at [address] [phone] Preethi Godoy, EDGE MOLDER 11/23/2024 1:30 PM INVENTORY WORKER Lab [facility] at [address] [phone] Pneumonia due to infectious organism, unspecified laterality, unspecified part of lung (Primary Dx) 11/23/2024 1:30 PM INVENTORY WORKER Ancillary Procedure [facility] Imaging at [address] [phone] Pneumonia due to infectious organism, unspecified laterality, unspecified part of lung 11/23/2024 1:22 PM INVENTORY WORKER - 11/23/2024 11:59 PM INVENTORY WORKER Hospital Encounter [address] [address] Benign hypertension with stage 3a chronic kidney disease (HCC); Iron deficiency anemia due to chronic blood loss Discharge Disposition: Discharge to home or self care 11/23/2024 12:30 PM INVENTORY WORKER Office Visit [facility] at [address] [phone] Preethi Godoy, EDGE MOLDER Pneumonia due to infectious organism, unspecified laterality, unspecified part of lung (Primary Dx); Iron deficiency anemia due to chronic blood loss; Benign hypertension with stage 3a chronic kidney disease (HCC); Persistent atrial fibrillation (HCC) 11/16/2024 2:00 PM INVENTORY WORKER Ancillary Procedure [facility] Imaging at [address] [phone] Acute cough 11/16/2024 Orders Only [facility] at [address] [phone] Gladys Valdovinos NP Lower respiratory infection (e.g., bronchitis, pneumonia, pneumonitis, pulmonitis) (Primary Dx) 11/14/2024 11:00 AM INVENTORY WORKER - 11/14/2024 11:59 PM INVENTORY WORKER Hospital Encounter [place] [id number] [place] [address] Acute cough Discharge Disposition: Discharge to home or self care 11/14/2024 10:00 AM INVENTORY WORKER Office Visit [facility] at [address] [phone] Mandy Hernandez PA Acute cough (Primary Dx) 11/14/2024 Results Follow-Up [facility] at [address] [phone] Mandy Hernandez PA 11/10/2024 Orders Only [facility] Primary Care at [address] [phone] Preethi Godoy NP 11/03/2024 Orders Only [facility] [address] [place] [address] Advanced Medicine 12th [place] [address] [place] [address] Kath Shepherd MD 10/25/2024 Telephone [facility] [address] [place] [address] Medicine 12th [place] [address] [place] [address] Jeannine Newman, TEDDY Med Management ([facility] PAP for 2024) 10/21/2024 10:58 AM INVENTORY WORKER Anesthesia Event [facility] [place] [address] [facility] [address] [facility] [address] [place] [address] Danyell Maher MD 10/21/2024 10:30 AM INVENTORY WORKER - 10/21/2024 11:15 AM INVENTORY WORKER Surgery [facility] [address] [facility] [address] [address] [place] [address] Kath Shepherd MD COLON BIOPSY 10/21/2024 9:15 AM INVENTORY WORKER - 10/21/2024 12:33 PM INVENTORY WORKER Hospital Encounter [facility] [address] [place] [address] Kath Shepherd MD Crohn's disease of both small and large intestine with other complication (HCC) Discharge Disposition: Discharge to home or self care 10/20/2024 Telephone [facility] Primary Care at [address] [phone] Preethi Godoy NP Medical Question/Miscellaneo us 10/14/2024 Telephone [facility] Special[facility] Services [address] [place] [phone] Stacey Crane, RN 10/14/2024 Telephone [facility] [address] [place] [phone] Stacey Crane, RN 10/14/2024 Telephone [facility] [address] [place] [phone] Stacey Crane, RN GI PROCEDURE 7 DAY [...] Neg Hx Relation Name Status Comments Father MS & CVA () age 76 Mother Sister [...] on file 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 2:24 AM INVENTORY WORKER Gender Identity Not on file Sexual Orientation Not on file 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 Stent Material Mix Araceli 12/09/2020 [id number] / [id number] / [id number] Procedures Procedure Name Priority Date/Time Associated Diagnosis [...] Read Routine (OP Routine) 11/26/2024 10:46 AM INVENTORY WORKER Abnormal CXR Pneumonia of both lungs due to infectious organism, unspecified part of lung Cough, unspecified type Fever, unspecified fever cause XR CHEST PA LATERAL 2 VIEWS Schedule Routine, Read Routine (OP Routine) 11/23/2024 1:30 PM INVENTORY WORKER Pneumonia due to infectious organism, unspecified laterality, unspecified part of lung EGFR Routine 11/23/2024 1:22 PM INVENTORY WORKER Benign hypertension with stage 3a chronic kidney disease (HCC) DIFFERENTIAL AUTO Routine 11/23/2024 1:2 2 PM INVENTORY WORKER Iron deficiency anemia due to chronic blood loss Benign hypertension with stage 3a chronic kidney disease (HCC) CBC WITH AUTO DIFFERENTIAL Routine 11/23/2024 1:22 PM INVENTORY WORKER Iron deficiency anemia due to chronic blood loss Benign hypertension with stage 3a chronic kidney disease (HCC) IRON Routine 11/23/2024 1:22 PM INVENTORY WORKER Iron deficiency anemia due to chronic blood loss BASIC METABOLIC PANEL Routine 11/23/2024 1:22 PM INVENTORY WORKER Benign hypertension with stage 3a chronic kidney disease (HCC) XR CHEST PA LATERAL 2 VIEWS Schedule YULIANA, Read YULIANA (Appt Today, Awaiting Results) 11/16/2024 2:07 PM INVENTORY WORKER Acute cough INFLUENZA A/B, RSV, AND COVID-19 PCR Routine 11/14/2024 11:00 AM INVENTORY WORKER Acute cough POC INFLUENZA A/B, COVID-19 ANTIGEN Routine 11/14/2024 10:47 AM INVENTORY WORKER Acute cough SURGICAL PATHOLOGY Routine 10/21/2024 11 :18 AM INVENTORY WORKER Crohn's disease of both small and large intestine with other complication (HCC) COLON BIOPSY 10/21/2024 10:58 AM INVENTORY WORKER Crohn's disease of both small and large intestine with other complication (HCC) COLONOSCOPY 10/21/2024 10:56 AM INVENTORY WORKER CTA ABDOMEN PELVIS W WO CONTRAST Schedule [...] CARE TEST ORDERABLES Final Result [facility] [address] [place] [address] * Throat culture Throat (12/30/2024 7:47 PM CDT) Report Final Report: No growth of pathogens. Comment:Testing performed by : [facility], [address] [place]., [address] Throat 12/30/2024 7:47 PM CDT 12/31/2024 2:01 AM CDT Narrative [facility] [place] 01/01/2025 2:34 AM CDT Testing performed by [facility] Microbiology Laboratory ([phone]). Gladys Valdovinos NP LAB MICROBIOLOGY - GENERAL ORD ERABLES Final Result [facility] [address] Department [place] [address] * POCT rapid strep A (12/30/2024 7:46 PM CDT) [facility] Rapid Strep A, POC Negative Negative Swab 12/30/2024 7:46 PM CDT Gladys Valdovinos EDGE MOLDER POINT OF CARE TEST ORDERABLES Final Result * (ABNORMAL) POCT urinalysis dipstick (12/30/2024 7:41 PM CDT) [facility] Color, Urine, POC Yellow Clarity, ur, POC Cloudy(A) Clear Glucose, ur, POC Negative Negative MG/DL Bilirubin, ur, POC Negative Negative, Small, Moderate, Large Ketones, ur, POC Negative Negative Specific [place], POC 1.020 1.003 - 1.030 Blood, ur, POC Small(A) Negative pH, ur, POC 5.5 5.0 - 8.0 Protein, ur, POC Negative Negative Urobilinogen, urine, POC 0.2 0.2 - 1.0 mg/dL Nitrite, ur, POC Positive(A) Negative Leukocytes, ur, POC Moderate(A) Negative Lot Number [id number] Urine 12/30/2024 7:41 PM CDT us Gladys Valdovinos NP POINT OF CARE TEST ORDERABLES Final Result * (ABNORMAL) Urine culture Urine, clean voided (12/30/2024 7:30 PM CDT) [facility] Report Final Report: Greater than or equal to 100,000 colonies/mL of Klebsiella pneumoniae (.) Comment:Testing performed by : [facility], [address] [facility], [place]., [address] Organism KLEBSIELLA PNEUMONIAE [facility] Urine, clean voided 12/30/2024 7:30 PM CDT 12/31/2024 2:01 AM CDT Narrative [facility] - 01/02/2025 8:39 AM CDT Testing performed by [facility] Microbiology Laboratory ([phone]) Organism Antibiotic Method Susceptibility Klebsiella pneumoniae Ampicillin [...] - GENERAL ORD ERABLES Final Result [facility] [address] Department of Laboratories [place] [phone] * NM Brain Imaging SPECT/CT (11/28/2024 10:49 [...] CT Chest WO Contrast (11/26/2024 10:46 AM INVENTORY WORKER) Anatomical Region Laterality Modality Body N/A Computed Tomogra phy Preethi Godoy NP IMG CT PROCEDURES Final Result * XR Chest PA Lateral 2 Views (11/23/2024 1:30 PM INVENTORY WORKER) Anatomical Region Laterality Modality Body, Chest N/A Digital Radiogra phy 11/26/2024 2:09 PM INVENTORY WORKER Narrative 11/26/2024 2:11 PM INVENTORY WORKER EXAM DESCRIPTION: XR CHEST PA LATERAL 2 [...] bilateral pleural effusion with adjacent airspace opacities, kfvni-hulnxjg-fwmn-left. Right mid chest linear density , linear [...] Buck Oleary D.O. AP T: Report ID: [id number] Reading Location: [id number] Procedure Note Buck Oleary, DO - 11/26/2024 [...] Small bilateral pleural effusionwith adjacent airspace opacities, bsvws-ftowusz-nhju-left. Right mid chestlinear density , linear atelectasis [...] signed by Buck DOUGLAS T: Report ID: [id number] Reading Location: [place] [address] us Preethi Godoy EDGE MOLDER IMG XR PROCEDURES Final Result * (ABNORMAL) eGFR (11/23/2024 1:22 PM INVENTORY WORKER) eGFR 34(L) >=60 mL/min/1. 73 m2 Comment: [...] last reviewed 2021. Blood 11/23/2024 1:22 PM INVENTORY WORKER 11/24/2024 11:14 AM INVENTORY WORKER us Preethi Godoy NP LAB BLOOD ORDERABLES Final Resul t [facility] [place] [address] Department [place] [address] * (ABNORMAL) Differential, auto (11/23/2024 1:22 PM INVENTORY WORKER) Neutrophil abs 6.3 1.5 - 6.5 K/cumm Imm gran abs 0.0 0.0 - 0.1 K/cumm [facility] Lymphocyte abs 0.7(L) 0.8 - 3.3 K/cumm [facility] Monocyte abs 1.0(H) 0.2 - 0.8 K/cumm [facility] Eosinophil abs 0.2 0.0 - 0.5 K/cumm [facility] Basophil abs 0.1 0.0 - 0.1 K/cumm [facility] Neutrophil pct 75.6 % [facility] Comment: Interpretive Data Percent cell count reference ranges are not reported, since discordance with absolute values may lead to misinterpretation of CBC data. Current Interpretive Data was last revised on 2017. Imm gran pct 0.5 % [facility] Comment: Interpretive Data Percent cell count reference ranges are not reported, since discordance with absolute values may lead to misinterpretation of CBC data. Current Interpretive Data was last revised on 2017. Lymphocyte pct 8.8 % [facility] Comment: Interpretive Data Percent cell count reference ranges are not reported, since discordance with absolute values may lead to misinterpretation of CBC data. Current Interpretive Data was last revised on 2017. Monocyte pct 11.6 % [facility] Comment: Interpretive Data Percent cell count reference ranges are not reported, since discordance with absolute values may lead to misinterpretation of CBC data. Current Interpretive Data was last revised on 2017. Eosinophil pct 2.9 % [facility] Comment: Interpretive Data Percent cell count reference ranges are not reported, since discordance with absolute values may lead to misinterpretation of CBC data. Current Interpretive Data was last revised on 2017. Basophil pct 0.6 % [facility] Comment: Interpretive Data Percent cell count reference ranges are not reported, since discordance with absolute values may lead to misinterpretation of CBC data. Current Interpretive Data was last revised on 2017. Blood 11/23/2024 1:22 PM INVENTORY WORKER 11/24/2024 11:08 AM INVENTORY WORKER us Preethi Godoy NP LAB BLOOD ORDERABLES Final Resul t [facility] [id number] Department [place] [address] * (ABNORMAL) CBC with auto differential (11/23/2024 1:22 PM INVENTORY WORKER) [facility] WBC 8.4 3.8 - 9.9 K/cumm Hgb 9.7(L) 13.0 - 17.5 g/dL [facility] CH Hct 31.3(L) 38.9 - 50.3 % [facility] CH Plt 179 150 - 400 K/cumm [facility] CH MPV 10.2 9.1 - 12.3 fL [facility] RBC 3.12(L) 4.30 - 5.80 M/cumm [facility] MCV 100.3(H) 81.3 - 96.4 fL [facility] MCH 31.1 27.1 - 33.3 pg [facility] MCHC 31.0(L) 32.3 - 35.7 g/dL [facility] RDW CV 17.2(H) 11.1 - 14.9 % [facility] RDW SD 64.2(H) 35.7 - 48.1 fL [facility] NRBC abs 0.00 0.00 - 0.01 K/cumm [facility] Blood 11/23/2024 1:22 PM INVENTORY WORKER 11/24/2024 11:08 AM INVENTORY WORKER Preethi Godoy NP LAB BLOOD ORDERABLES Final Resul t [facility] [place] [address] Department [place] [address] * (ABNORMAL) Iron level (11/23/2024 1:22 PM INVENTORY WORKER) [facility] Iron 47(L) 50 - 150 mcg/dl Blood 11/23/2024 1:22 PM INVENTORY WORKER 11/24/2024 11:08 AM INVENTORY WORKER us Preethi Godoy NP LAB BLOOD ORDERABLES Final Resul t [facility] [place] [address] Department [place] [address] * (ABNORMAL) Basic metabolic panel (11/23/2024 1:22 PM INVENTORY WORKER) Sodium 141 135 - 145 mmol/L Potassium, pl 3.6 3.3 - 4.9 mmol/L [facility] Chloride 109 97 - 110 mmol/L [facility] CO2 21(L) 22 - 32 mmol/L [facility] Anion gap 11 2 - 15 mmol/L [facility] BUN 18 6 - 25 mg/dL [facility] Creatinine 1.97(H) 0.80 - 1.30 mg/dL [facility] Glucose 75 70 - 199 mg/dL [facility] Comment: Interpretive Data Fasting glucose >/= 126 [...] 2022. Calcium 8.1(L) 8.5 - 10.3 mg/dL [facility] Blood 11/23/2024 1:22 PM INVENTORY WORKER 11/24/2024 11:08 AM INVENTORY WORKER Preethi Godoy NP LAB BLOOD ORDERABLES Final Resul t [facility] [address] Department [place] [address] * XR Chest Pa Lateral 2 Views (11/16/2024 2:07 PM INVENTORY WORKER) Anatomical Region Laterality Modality Body, Chest N/A Digital Radiogra phy 11/16/2024 3:45 PM INVENTORY WORKER Narrative 11/16/2024 3:51 PM INVENTORY WORKER EXAM DESCRIPTION: XR CHEST PA LATERAL 2 [...] Jeffery Dawkins M.D. MJ T: Report ID: [id number] Reading Location: [id number] Procedure Note Jeffery Dawkins MD - 11/16/2024 [...] Jeffery Dawkins M.D. MJ T: Report ID: [id number] Reading Location: [id number] Mandy TOWNSEND IMG XR PROCEDURES Final Result * (ABNORMAL) Influenza A/B, RSV, and COVID-19 PCR Nasopharyngeal (11/14/2024 11:00 AM INVENTORY WORKER) [facility] COVID-19 RNA Negative Negative Influenza A RNA Negative Negative [facility] Influenza B RNA Negative Negative [facility] RSV RNA Positive(A) Negative [facility] Comment: Interpretive data: Testing performed by [facility]. This test is performed using the mylearnadfriend Xpert Xpress CoV-2/Flu/RSV plus assay. This is a multiplex, real-time reverse transcriptase PCR assay intended for the qualitative detection of nucleic acid from SARS-CoV-2, influenza A, influenza B, and respiratory syncytial virus. This assay has been cleared by the [place] Food and Drug administration. The performance characteristics have been verified by the [facility]. Results must be considered in the clinical context, and a negative result does not rule out infection. Interpretive Data last revised 2023 Nasopharyngeal 11/14/2024 11 :00 AM INVENTORY WORKER 11/14/2024 2:41 PM INVENTORY WORKER Narrative [facility] - 11/14/2024 3:32 PM INVENTORY WORKER Is the Patient experiencing symptoms consistent with COVID?->Yes Mandy TOWNSEND LAB MICROBIOLOGY - GENER AL ORDERABLES Final Result [facility]OWN[facility]E [address] [address] Department [place] [address] * POC Influenza A/B, COVID-19 antigen (11/14/2024 10:47 AM INVENTORY WORKER) Influenza A Ag, POC Negative Negative [facility] Influenza B Ag, POC Negative Negative [facility] COVID-19 Ag POC Presumptive Negative Presumptive Negative, Invalid [facility] Nasal 11/14/2024 10:4 7 AM INVENTORY WORKER Mandy TOWNSEND POINT OF CARE TEST ORDER MANJINDER Final Result Performing Organization Address City[facility] Co de Phone Number [facility] [address] * Surgical pathology (10/21/2024 11:18 AM INVENTORY WORKER) Tissue specimen (specimen) (Ileum, Biopsy) 10/21/2024 11:18 AM INVENTORY WORKER Tissue specimen (specimen) (Colon, Biopsy) 10/21/2024 11:31 AM INVENTORY WORKER Narrative PATHOLOGY [facility] - 10/22/2024 11:22 AM INVENTORY WORKER EPIC results best viewed via link to PDF [facility] Ambreen Bello Laboratory [place] [address] Note to Patients: This report may contain [...] Gender: M : 1945 (Age: 79) Address: [address] [place], [place] [address] [address] [facility] #: [id number] Taken:10/21/2024 Received:10/21/2024 Reported: 10/22/2024 Patient Type: BJ [...] Surgical Pathology and Flow Cytometry Departments at [facility] as part of an ongoing quality systems specialist program and in compliance with federally [...] Surgical Pathology and Flow Cytometry Departments of [facility]. It has not been cleared or approved by the [place]. S. Food and Drug Administration. IMAGES AND SCANNED DOCUMENTS, IF INCLUDED, ONLY VIEWABLE IN PDF VERSION OF REPORT Kath Shepherd MD LAB PATHOLOGY ORDERABLES Laly mckenzie Result PATHOLOGY [facility] 3rd Floor [place], [place] [phone] * Colonoscopy (10/21/2024 10:56 AM INVENTORY WORKER) Anatomical Region Laterality Modality Other Narrative Procedure Note Kath Shepherd MD - 10/21/2024 10:56 AM CST GI ENDOSCOPY [facility] Patient Name: Aziza Loya Procedure Date: 10/21/2024 10:56 AM Date of : 1945 Admit Type: Outpatient Age: 79 Gender: Male Attending MD: Kath Shepherd M.D. Room: [facility] ENDOSCOPY ROOM 3 Note Status: Addendum [...] The scope was passed under direct vision.The [facility] [id number] endoscope was introducedthrough the anus and [...] Steven Ruano M.D. RB T: Report ID: [id number] Reading Location: [id number] Procedure Note Steven Ruano MD - 02/24/2024 [...] Steven Ruano M.D. RB T: Report ID: [id number] Reading Location: [place] [address] PROCEDURES Final [...] - GEN ERAL ORDERABLES Final Result [facility] [address] [address] Department [place] [address] from Last 3 Months or Most Recently Relevant to Health Maintenance Insurance [facility] MEDICARE MEDICARE [facility] Member Subscriber Plan / Payer ( fective 2017-Present) Name:Aziza Loya Relation to Subscriber:Self Name:Aziza Loya Payer ID:[id number] Group ID:[id number] Type:COMMERCIAL Address: [address] MEDICARE [facility] MEDICARE [facility] MEDICARE [facility] Address: [address] [address] [facility] Advance Directives For more information, please contact: [phone] * Full Code (Latest Code Status on [...] 10:45 AM 05/17/2022 5:55 PM Care Teams Stable Attendant Relationship Specialty Start Date End Date Preethi Godoy NP [address] [facility] 130 [place] [address] PCP - General Family Medicine 08/25/24 Kath Shepherd MD [address] [place] [address] Consulting Physician Gastroenterology 07/22/19 Peter Ya MD [address] [place] [address] Director Of Religious Activities Cardiology 07/22/19 Aziza Ledesma MD [address] [place] [address] Consulting Physician Neurology 07/22/19 Joshua Butterfield MD [address] [place] [address] [address] [place] [address] Consulting Physician Urology 07/03/23 Jeffery Bustillos MD [address] [place] [address] [address] [place] [address] Consulting Physician Cardiovascular Disease 02/06/24 Shimon Schofield MD [address] [facility] [address] [place] [address] Consulting Physician Vascular Surgery 02/06/24
--- OUTSIDE RECORDS SUMMARY | 2025-01-04 18:38 | XMS_ITS | Encounter Summary ---
Author Organization [facility] Healthcare Address [address] [place] [address] Care Team Providers Care Sand Conditioner Machine Name Role Phone Kath Shepherd MD Unavailable [phone] Peter Ya MD Unavailable [phone] Vitaly Ledesma MD Unavailable [phone] Joshua Butterfield MD Unavailable [phone] Jeffery Bustillos MD Unavailable [phone] Shimon Schofield MD Unavailable Preethi Godoy NP Primary Care Provider [phone] Encounter Details Date Type Department Care Team (Late st Contact Info) Description 11/14/2024 Results Follow-Up [facility] Medical Group Convenient Care at [address] [address] Mandy Hernandez KRISTIAN [address] [place] [address] [address] [place] [address] Social History Tobacco Use Types [...] file 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 Gender Identity Not on file Sexual Orientation Not on file 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 [employer] Not on file Not on file Not on file documented as of this encounter Plan of Treatment Not on file documented as of this encounter Visit Diagnoses Not on filedocumented in this encounter Additional Health Concerns Infection Onset Date Last Indicated Resolved Time COVID: Suspected 11/14/2024 11/14/2024 11/14/2024 10:49 AM BUSINESS MACHINES TEACHER COVID: Suspected 11/14/2024 11/14/2024 11/14/2024 3:33 PM BUSINESS MACHINES TEACHER RSV, droplet 11/14/2024 11/14/2024 11/21/2024 3:07 AM BUSINESS MACHINES TEACHER COVID: Suspected 12/30/2024 12/30/2024 12/30/2024 7:54 PM CDT documented as of this encounter Care Teams Sand Conditioner Machine Relationship Specialty Start Date End Date Preethi Godoy NP [address] [address] PCP - General Family Medicine 08/25/24 Kath Shepherd MD [address] [place] [address] Consulting Physician Gastroenterology 07/22/19 Peter Ya MD [address] [place] [address] Fishing Accessories Maker Cardiology 07/22/19 Vitaly Ledesma MD [address] [place] [address] Consulting Physician Neurology 07/22/19 Joshua Butterfield MD [address] [facility] 200 [place] [address] Consulting Physician Urology 07/03/23 Jeffery Bustillos MD [address] [facility] 102 [place], [place] [address] Consulting Physician Cardiovascular Disease 02/06/24 Shimon Schofield MD [address] [facility] 120 [place] [address] Consulting Physician Vascular Surgery 02/06/24 documented as of this encounter
--- OUTSIDE RECORDS SUMMARY | 2025-01-04 18:38 | XMS_ITS | Continuity of Care Document ---
Author Name [facility] Organization [facility] Care Team Providers Care Training Executive Name Role Phone [facility] Unavailable Unavailable Encounters Combined list of: 1) Encounters from [facility] Veterans Affairs facilities going backup to the last 18 months, not all VA inpatient encounters are included; 2) Encounters from the Department of [facility] facilities going backup to 280 months. Location Location Details Encounter Type Encounter Number Reason For Visit Attending Provider ADM Date DC Date Status Disposition Source [facility] Outpatient Encounter [id number] 7 07/27 [facility]
--- OUTSIDE RECORDS SUMMARY | 2025-01-04 18:38 | XMS_ITS | Encounter Summary ---
Author Organization [facility] Address [address] [place] [address] Phone Care Team Providers Care Plate Shear Operator Name Role Phone John Kimbrough MD Primary Care Provider [phone] Kath Shepherd MD Unavailable [phone] Peter Ya MD Unavailable [phone] Vitaly Ledesma MD Unavailable [phone] Anayeli Lee MD Primary Care Provider Joshua Butterfield MD Unavailable [phone] Jeffery Bustillos MD Unavailable [phone] Shimon Schofield MD Unavailable Preethi Godoy NP Primary Care Provider [phone] Encounter Details Date Type Department Care Team [...] on file 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 Gender Identity Not on file Sexual Orientation Not on file 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 [employer] Not on file [...] COVID: Suspected 08/21/2021 08/21/2021 08/21/2021 11:38 AM MERCHANDISING PROFESSOR COVID: Suspected 11/14/2024 11/14/2024 11/14/2024 10:49 AM MERCHANDISING PROFESSOR COVID: Suspected 11/14/2024 11/14/2024 11/14/2024 3:33 PM MERCHANDISING PROFESSOR RSV, droplet 11/14/2024 11/14/2024 11/21/2024 3:07 AM MERCHANDISING PROFESSOR COVID: Suspected 12/30/2024 12/30/2024 12/30/2024 7:54 PM CDT documented as of this encounter Care Teams Plate Shear Operator Relationship Specialty Start Date End Date John Kimbrough MD 49[address] [facility] [address] [place] [address] PCP - General 11/08/16 07/02/23 Anayeli Lee MD [address] [place] [address] PCP - General Family Medicine 07/03/23 08/24/24 Preethi Godoy NP 2[address] [facility] 130 [place] [address] PCP - General Family Medicine 08/25/24 Kath Shepherd MD [address] [place] [address] Consulting Physician Gastroenterology 07/22/19 Peter Ya MD [address] [place] [address] Parking Lot Signaler Cardiology 07/22/19 Vitaly Ledesma MD [address] [place] [address] Consulting Physician Neurology 07/22/19 Joshua Butterfield MD [address] [place] [address] Consulting Physician Urology 07/03/23 Jeffery Bustillos MD [address] [address] Consulting Physician Cardiovascular Disease 02/06/24 Shimon Schofield MD [address] [address] Consulting Physician Vascular Surgery 02/06/24 documented as of this encounter
--- OUTSIDE RECORDS SUMMARY | 2025-01-04 18:38 | XMS_ITS | Encounter Summary ---
Author Organization [facility] Address [address] [place] [address] Phone Care Team Providers Care Fare Enforcement Officer Name Role Phone John Kimbrough MD Primary Care Provider [phone] Kath Shepherd MD Unavailable [phone] Peter Ya MD Unavailable [phone] Vitaly Ledesma MD Unavailable [phone] Anayeli Lee MD Primary Care Provider Joshua Butterfield MD Unavailable [phone] Jeffery Bustillos MD Unavailable [phone] Shimon Schofield MD Unavailable Preethi Godoy NP Primary Care Provider [phone] Encounter Details Date Type Department Care Team (Late st Contact Info) Description 01/13/2018 Orders Only [facility] ProviderOlive MD [address] [place] [address] Social History Tobacco Use Types Packs/Day Years Used Date Smoking Tobacco: Never Smokeless Tobacco: Never Alcohol Use Standard Drinks/Week Comments No 0 (1 standard drink = 0.6 oz pur e alcohol) Sex and Gender Information Value Date Recorded Sex Assigned at Not on file 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 2:24 AM RESPIRATORY SUPERVISOR Gender Identity Not on file Sexual [...] COVID: Suspected 08/21/2021 08/21/2021 08/21/2021 11:38 AM RESPIRATORY SUPERVISOR COVID: Suspected 11/14/2024 11/14/2024 11/14/2024 10:49 AM RESPIRATORY SUPERVISOR COVID: Suspected 11/14/2024 11/14/2024 11/14/2024 3:33 PM RESPIRATORY SUPERVISOR RSV, droplet 11/14/2024 11/14/2024 11/21/2024 3:07 AM RESPIRATORY SUPERVISOR COVID: Suspected 12/30/2024 12/30/2024 12/30/2024 7:54 PM CDT documented as of this encounter Care Teams Fare Enforcement Officer Relationship Specialty Start Date End Date John Kimbrough MD 49[address] [facility] [address] [place] [address] PCP - General 11/08/16 07/02/23 Anayeli Lee MD [address] [place] [address] PCP - General Family Medicine 07/03/23 08/24/24 Preethi Godoy NP [address] [facility] [address] [place] [address] PCP - General Family Medicine 08/25/24 Kath Shepherd MD [address] [place] [address] Consulting Physician Gastroenterology 07/22/19 Peter Ya MD [address] [place] [address] Professional Bass Fisher Cardiology 07/22/19 Vitaly Ledesma MD [address] [place] [address] Consulting Physician Neurology 07/22/19 Joshua Butterfield MD [address] [address] Consulting Physician Urology 07/03/23 Jeffery Bustillos MD [address] [address] Consulting Physician Cardiovascular Disease 02/06/24 Shimon Schofield MD [address] [address] Consulting Physician Vascular Surgery 02/06/24 documented as of this encounter
--- OUTSIDE RECORDS SUMMARY | 2025-01-04 18:38 | XMS_ITS | Encounter Summary ---
Author Organization [facility] Healthcare Address [address] [place] [address] Care Team Providers Care Orange Picker Name Role Phone Kath Shepherd MD Unavailable [phone] Peter Ya MD Unavailable [phone] Vitaly Ledesma MD Unavailable [phone] Joshua Butterfield MD Unavailable [phone] Jeffery Bustillos MD Unavailable [phone] Shimon Schofield MD Unavailable Preethi Godoy NP Primary Care Provider Encounter Details Date Type Department Care Team (Late st Contact Info) Description 01/01/2025 Results Follow-Up [facility] Medical Group Convenient Care at [address] [address] Brie Mandel NP [address] [place] [address] [address] [place] [address] Social History Tobacco Use Types [...] on file 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 2:24 AM REGISTERED 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 Gender Identity Not on file Sexual Orientation Not on file 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 Not on file Not on file documented as of this encounter Plan of Treatment Not on file documented as of this encounter Visit Diagnoses Not on filedocumented in this encounter Care Teams Orange Picker Relationship Specialty Start Date End Date Preethi Godoy NP [address] [facility] [address] [place] [address] PCP - General Family Medicine 08/25/24 Kath Shepherd MD [address] [place] [address] Consulting Physician Gastroenterology 07/22/19 Peter Ya MD [address] [place] [address] Solid Waste Engineer Cardiology 07/22/19 Vitaly Ledesma MD [address] [place] [address] Consulting Physician Neurology 07/22/19 Joshua Butterfield MD [address] [place] [address] Consulting Physician Urology 07/03/23 Jeffery Bustillos MD [address] [facility] [address] [facility] [address] [place] [address] Consulting Physician Cardiovascular Disease 02/06/24 Shimon Schofield MD 4600 [facility] [address] [place] [address] Consulting Physician Vascular Surgery 02/06/24 documented as of this encounter
--- OUTSIDE RECORDS SUMMARY | 2025-01-04 18:38 | XMS_ITS | Encounter Summary ---
Author Organization [facility] Healthcare Address [address] [place] [address] Care Team Providers Care Cutting Machine Tender Decorative Name Role Phone Kath Shepherd MD Unavailable [phone] Peter Ya MD Unavailable [phone] Vitaly Ledesma MD Unavailable [phone] Joshua Butterfield MD Unavailable [phone] Jeffery Bustillos MD Unavailable [phone] Shimon Schofield MD Unavailable Preethi Godoy NP Primary Care Provider [phone] Reason for Visit * Reason Onset Date Comments UTI 01/04/2025 Encounter Details Date Type Department Care Team (Late st Contact Info) Description 01/04/2025 Nurse Triage [facility] Primary Care at [address] [address] Preethi Godoy NP [address] [place] [address] [address] [place] [address] Social History Tobacco Use Types [...] on file 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 [address] [place] [address] PCP - General Family Medicine 08/25/24 Kath Shepherd MD [address] [place] [address] Consulting Physician Gastroenterology 07/22/19 Peter Ya MD [address] [place] [address] Chicken Picker Cardiology 07/22/19 Vitaly Ledesma MD [address] [place] [address] Consulting Physician Neurology 07/22/19 Joshua Butterfield MD [address] [place] [address] Consulting Physician Urology 07/03/23 Jeffery Bustillos MD [address] [address] Consulting Physician Cardiovascular Disease 02/06/24 Shimon Schofield MD [address] [address] Consulting Physician Vascular Surgery 02/06/24 documented as of this encounter
--- OUTSIDE RECORDS SUMMARY | 2025-01-04 18:38 | XMS_ITS | Referral Summary ---
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 Name Role Phone Kath Shepherd MD Unavailable Peter Ya MD Unavailable Aziza Ledesma MD Unavailable Joshua Butterfield MD Unavailable Jeffery Bustillos MD Unavailable [phone] Shimon Schofield MD Unavailable Preethi Godoy NP Primary Care Provider Encounters Date Type Department Care Team Description 01/04/2025 Nurse Triage [facility] Primary Care at [address] [phone] Preethi Godoy NP 01/01/2025 Results Follow-Up [facility] Care at [address] [phone] Brie Mandel NP 12/30/2024 11:55 PM CDT - 12/30/2024 11:59 PM CDT Hospital Encounter [place] [id number] [place], [place] [phone] Acute cystitis with hematuria; Nasopharyngitis acute Discharge Disposition: Discharge to home or self care 12/30/2024 7:30 PM CDT Office Visit [facility] Convenient Care at [address] [phone] Gladys Valdovinos NP Acute cystitis with hematuria (Primary Dx); Nasopharyngitis acute 11/29/2024 Results Follow-Up [facility] Primary Care at [address] [phone] Preethi Godoy, [employer] Pulmonary nodule 1 cm or greater in diameter (Primary Dx) 11/29/2024 Orders Only [facility] Primary Care at [address] [phone] Preethi Godoy, [employer] Abnormal CXR; Pneumonia of both lungs due to infectious organism, unspecified part of lung; Cough, unspecified type; Fever, unspecified fever cause 11/26/2024 Orders Only [facility] Primary Care at [address] [phone] Preethi Godoy, [employer] 11/26/2024 Telephone [facility] Primary Care at [address] [phone] Preethi Godoy [employer] Medical Question/Miscellaneo us 11/26/2024 Orders Only [facility] Primary Care at [address] [phone] Preethi Godoy, [employer] 11/26/2024 Telephone [facility] Primary Care at [address] [phone] Preethi Godoy [employer] Symptom Based Call 11/24/2024 Results Follow-Up [facility] Primary Care at [address] [phone] Preethi Godoy [employer] 11/23/2024 1:22 PM DIRECTOR OF PHYSICAL THERAPY - 11/23/2024 11:59 PM DIRECTOR OF PHYSICAL THERAPY Hospital Encounter [address] [address] Benign hypertension with stage 3a chronic kidney disease (HCC); Iron deficiency anemia due to chronic blood loss Discharge Disposition: Discharge to home or self care 11/23/2024 1:30 PM DIRECTOR OF PHYSICAL THERAPY Lab [facility] Outpatient Lab at [address] [phone] Pneumonia due to infectious organism, unspecified laterality, unspecified part of lung (Primary Dx) 11/23/2024 1:30 PM DIRECTOR OF PHYSICAL THERAPY Ancillary Procedure [facility] Imaging at [address] [phone] Pneumonia due to infectious organism, unspecified laterality, unspecified part of lung 11/23/2024 12:30 PM DIRECTOR OF PHYSICAL THERAPY Office Visit [facility] Primary Care at [address] [phone] Preethi oGdoy NP Pneumonia due to infectious organism, unspecified laterality, unspecified part of lung (Primary Dx); Iron deficiency anemia due to chronic blood loss; Benign hypertension with stage 3a chronic kidney disease (HCC); Persistent atrial fibrillation (HCC) 11/16/2024 Orders Only [facility] Convenient Care at [address] [phone] Gladys Valdovinos NP Lower respiratory infection (e.g., bronchitis, pneumonia, pneumonitis, pulmonitis) (Primary Dx) 11/16/2024 2:00 PM DIRECTOR OF PHYSICAL THERAPY Ancillary Procedure [facility] Imaging at [address] [phone] Acute cough 11/14/2024 Results Follow-Up [facility] Con[facility]ient Care at [address] [phone] Mandy Hernandez PA 11/14/2024 11:00 AM DIRECTOR OF PHYSICAL THERAPY - 11/14/2024 11:59 PM DIRECTOR OF PHYSICAL THERAPY Hospital Encounter [address] [address] Acute cough Discharge Disposition: Discharge to home or self care 11/14/2024 10:00 AM DIRECTOR OF PHYSICAL THERAPY Office Visit [facility] Con[facility]ient Care at [address] [phone] Mandy Hernandez PA Acute cough (Primary Dx) 11/10/2024 Orders Only [facility] Primary Care at [address] [phone] Preethi Godoy NP 11/03/2024 Orders Only [facility] Gastroenterology [address] [facility] 12th [place] [address] [place] [address] Kath Shepherd MD 10/25/2024 Telephone [facility] Gastroenterology [address] [facility] 12th [place] [address] [place] [address] Jeannine Newman RN Med Management ([facility] PAP for 2024) 10/21/2024 10:58 AM DIRECTOR OF PHYSICAL THERAPY Anesthesia Event [facility] [place] [address] [facility] [address] [place] [address] Danyell Maher MD 10/21/2024 10:30 AM DIRECTOR OF PHYSICAL THERAPY - 10/21/2024 11:15 AM DIRECTOR OF PHYSICAL THERAPY Surgery [facility] [address] [address] Kath Shepherd MD COLON BIOPSY 10/21/2024 9:15 AM DIRECTOR OF PHYSICAL THERAPY - 10/21/2024 12:33 PM DIRECTOR OF PHYSICAL THERAPY Hospital Encounter [facility] [place] [phone] [address] Kath Shepherd MD Crohn's disease of both small and large intestine with other complication (HCC) Discharge Disposition: Discharge to home or self care 10/20/2024 Telephone [facility] Primary Care at [address] [phone] Preethi Godoy NP Medical Question/Miscellaneo us 10/14/2024 Telephone [facility] Specialty Services [address] [place] [phone] Stacey Crane, RN 10/14/2024 Telephone [facility] Specialty Services [address] [place] [phone] Stacey Crane, RN 10/14/2024 Telephone [facility] Special[facility] Services [address] [place] [phone] Stacey Crane, RN GI PROCEDURE 7 DAY PRE CALL from Last 3 Months Allergies No known active allergies Medications coenzyme Q10 10 mg capsule Take 2 capsules (20 mg total) by mouth every morning Active zaynd-7-xum-ep a-dpa-fish oil 1,050-1,200 mg capsule Take 1 [...] Route Frequency Start Date End Date Status INV-[facility] BMS-[id number]/placebo (/[id number]) capsule 4 capsuleIndications:Crohn' s disease of both small and large intestine with other complication (HCC) 4 capsule oral 2 times daily 05/21/2022 Active [facility] BMS-[id number]/placebo (/[id number]) capsule 4 capsuleIndications:Crohn' s disease of both small and large intestine with other complication (HCC) 4 capsule oral 2 times daily 06/18/2022 Active [facility] BMS-912342/placebo (/[id number]) capsule 4 capsuleIndications:Crohn' s disease of both small and large intestine with other complication (HCC) 4 capsule oral 2 times daily 07/09/2022 Active [facility] BMS-744669/placebo (/[id number]) capsule 4 capsuleIndications:Crohn' s disease of both small and large intestine with other complication (HCC) 4 capsule oral 2 times daily 08/07/2022 Active [facility] BMS-573625/placebo (/[id number]) capsule 4 capsuleIndications:Crohn' s disease of both small and large intestine with other complication (HCC) 4 capsule oral 2 times daily 09/19/2022 Active [facility] BMS-755665/placebo (/[id number]) capsule 4 capsuleIndications:Crohn' s disease of both [...] modification Assessment & Plan (10/03/2023 1:12 PM DIRECTOR OF PHYSICAL THERAPY): Chronic. Due to prior peripheral arterial disease. [...] urologist Assessment & Plan (10/03/2023 1:12 PM DIRECTOR OF PHYSICAL THERAPY): Chronic. Continue medication care per Urology Assessment & Plan (07/03/2023 5:22 PM CDT): Follows with [facility] [place] Dr. Butterfield. Patient on finasteride and does intermittent straight catheterization Protein-calorie malnutrition, mild 07/03/2023 Overview (07/03/2023): Patient with low BMI. Less protein level was low. Monitor weight Assessment & Plan (02/06/2024 4:55 PM CDT): Patient has had borderline protein calorie malnutrition. Monitor his protein levels on labs. Encourage adequate nutrition. Avoid additional weight loss Assessment & Plan (10/03/2023 1:12 PM DIRECTOR OF PHYSICAL THERAPY): Chronic. BMI remains at the lower end arrange. Encouraged adequate nutrition. Monitor History of gout 07/03/2023 Assessment & Plan (02/06/2024 4:55 PM CDT): Chronic. Denies history of recent flares. Continue allopurinol for prophylaxis. Check uric acid Assessment & Plan (10/03/2023 1:12 PM DIRECTOR OF PHYSICAL THERAPY): Chronic. Denies any history of gout in [...] 03/14/2023 Assessment & Plan (10/03/2023 1:13 PM DIRECTOR OF PHYSICAL THERAPY): Chronic. May occasionally increase in size. Minimal pain. Has deferred elective repair in the past Persistent atrial fibrillation 12/04/2021 Assessment & Plan (11/23/2024 1:36 PM DIRECTOR OF PHYSICAL THERAPY): Rate controlled in office, continuing follow up with Cardiology. Assessment & Plan (03/01/2024 7:51 AM CDT): Stable continue metoprolol. Assessment & Plan (02/06/2024 4:55 PM CDT): Chronic. Controlled rate with metoprolol. Continue. Continue aspirin for stroke prophylaxis Assessment & Plan (10/03/2023 1:12 PM DIRECTOR OF PHYSICAL THERAPY): Chronic. Continue risk factor modification. Continue ASA [...] Monitor Assessment & Plan (10/03/2023 1:11 PM DIRECTOR OF PHYSICAL THERAPY): Chronic. Denies significant worsening. No agitation recently. [...] They denies significant agitation Cerebral amyloid angiopathy ([facility]) 02/15/2020 Assessment & Plan (02/06/2024 4:54 PM CDT): Chronic. Memory has worsened slightly in the last year. He does have some fluctuations at times. No real agitation. Target good blood pressure control. Continue aspirin for his other issues. Would be cautious with more aggressive anticoagulation given history of amyloid angiopathy Assessment & Plan (10/03/2023 1:11 PM DIRECTOR OF PHYSICAL THERAPY): Chronic. Denies any progression of symptoms Assessment & Plan (07/03/2023 5:18 PM CDT): Chronic. Control blood pressure and modify risk factors as able. Continue aspirin given AFib but would be cautious with stronger anticoagulants given increased bleeding risk with cerebral amyloid angiopathy Peripheral artery disease 09/10/2019 Overview (09/10/2019): Added automatically from request for surgery [id number] Assessment & Plan (09/03/2024 10:57 AM DIRECTOR OF PHYSICAL THERAPY): Stable lower extremity occlusive disease. Continue risk [...] duplex. Assessment & Plan (10/03/2023 1:11 PM DIRECTOR OF PHYSICAL THERAPY): Chronic. Denies recent claudication symptoms. Continue ASA, statin and Pletal Assessment & Plan (07/03/2023 5:22 PM CDT): Chronic. 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 Denies current sores on his feet. Follows with Podiatry in [place]. On cilostazol Iron deficiency anemia due to [...] 02/17/2019 Assessment & Plan (11/23/2024 1:35 PM DIRECTOR OF PHYSICAL THERAPY): BP normal in office, continuing current regimen. [...] dehydrate Assessment & Plan (10/03/2023 1:10 PM DIRECTOR OF PHYSICAL THERAPY): Chronic. Blood pressure controlled. Continue current prescription [...] (01/26/2019): Added automatically from request for surgery [id number] Assessment & Plan (02/06/2024 4:52 PM CDT): Chronic. Disease has been stable. Minimal symptoms. He does have to be cautious with eating too many fruits and vegetables as he notes this does cause some GI distress. He remains controlled with Skyrezi and hydroxychloroquine. He will continue Assessment & Plan (10/03/2023 1:10 PM DIRECTOR OF PHYSICAL THERAPY): Chronic. Symptomatically improved per patient. Continue medication and care per GI Assessment & Plan (07/03/2023 5:20 PM CDT): Chronic. Follows with Gastroenterology. On scar oz and sulfasalazine. Continue medication and care per them CAD (coronary artery disease) 12/04/2018 Assessment & Plan (09/03/2024 10:57 AM DIRECTOR OF PHYSICAL THERAPY): Stable continue ASA and Lasix Assessment & Plan (02/06/2024 4:51 PM CDT): Chronic. Denies chest pain. Continue risk factor modification with statin, aspirin, blood pressure control. Target LDL less than 70 Assessment & Plan (10/03/2023 1:10 PM DIRECTOR OF PHYSICAL THERAPY): Chronic. Denies chest pain. Follows with cardiology. [...] 12/30/2017 Assessment & Plan (08/25/2024 4:06 PM DIRECTOR OF PHYSICAL THERAPY): Updated labs ordered, Hemoglobin was 9 in [...] infusions Assessment & Plan (10/03/2023 1:10 PM DIRECTOR OF PHYSICAL THERAPY): Chronic. Follows with GI and Hematology. Has received iron infusions. Often does B12 injections Assessment & Plan (07/03/2023 5:15 PM CDT): Chronic. Follows with GI and Hematology. Received iron infusions Hypercholesterolemia 02/05/2011 Assessment & Plan (09/03/2024 10:57 AM DIRECTOR OF PHYSICAL THERAPY): Stable continue statin therapy. Assessment & Plan (03/01/2024 7:50 AM CDT): Stable continue statin therapy. Assessment & Plan (02/06/2024 4:53 PM CDT): Chronic. Tolerates atorvastatin. Continue. Check cholesterol level and adjust for an LDL goal of at least less than 70 with optimal less than 55 Assessment & Plan (10/03/2023 1:10 PM DIRECTOR OF PHYSICAL THERAPY): Chronic. Tolerates current prescription medication. 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 [employer] Not on file Not on file Not [...] cm (5' 10 ) 11/23/2024 12:30 PM DIRECTOR OF PHYSICAL THERAPY Body Mass Index 20.09 11/23/2024 12:30 PM DIRECTOR OF PHYSICAL THERAPY Plan of Treatment Not on file Medical Devices Implanted Type Area Diesel Mechanic Construction Device Identifier Shelf Expiration Date Model / Serial / Lot [employer] [id number] Synergy 3.5mm 24mm 144cm Radiopaque 1 Access Port Inflation Lumen - [id number] - [id number] Implanted:Qty: 1 on 03/26/2019 by Alban Santana MD at [facility] [employer] 12/09/2020 [id number] / [id number] / [id number] Procedures Procedure Name Priority Date/Time Associated Diagnosis [...] Read Routine (OP Routine) 11/26/2024 10:46 AM DIRECTOR OF PHYSICAL THERAPY Abnormal CXR Pneumonia of both lungs due to infectious organism, unspecified part of lung Cough, unspecified type Fever, unspecified fever cause XR CHEST PA LATERAL 2 VIEWS Schedule Routine, Read Routine (OP Routine) 11/23/2024 1:30 PM DIRECTOR OF PHYSICAL THERAPY Pneumonia due to infectious organism, unspecified laterality, unspecified part of lung EGFR Routine 11/23/2024 1:22 PM DIRECTOR OF PHYSICAL THERAPY Benign hypertension with stage 3a chronic kidney disease (HCC) DIFFERENTIAL AUTO Routine 11/23/2024 1:2 2 PM DIRECTOR OF PHYSICAL THERAPY Iron deficiency anemia due to chronic blood loss Benign hypertension with stage 3a chronic kidney disease (HCC) CBC WITH AUTO DIFFERENTIAL Routine 11/23/2024 1:22 PM DIRECTOR OF PHYSICAL THERAPY Iron deficiency anemia due to chronic blood loss Benign hypertension with stage 3a chronic kidney disease (HCC) IRON Routine 11/23/2024 1:22 PM DIRECTOR OF PHYSICAL THERAPY Iron deficiency anemia due to chronic blood loss BASIC METABOLIC PANEL Routine 11/23/2024 1:22 PM DIRECTOR OF PHYSICAL THERAPY Benign hypertension with stage 3a chronic kidney disease (HCC) XR CHEST PA LATERAL 2 VIEWS Schedule YULIANA, Read YULIANA (Appt Today, Awaiting Results) 11/16/2024 2:07 PM DIRECTOR OF PHYSICAL THERAPY Acute cough INFLUENZA A/B, RSV, AND COVID-19 PCR Routine 11/14/2024 11:00 AM DIRECTOR OF PHYSICAL THERAPY Acute cough POC INFLUENZA A/B, COVID-19 ANTIGEN Routine 11/14/2024 10:47 AM DIRECTOR OF PHYSICAL THERAPY Acute cough SURGICAL PATHOLOGY Routine 10/21/2024 11 :18 AM DIRECTOR OF PHYSICAL THERAPY Crohn's disease of both small and large intestine with other complication (HCC) COLON BIOPSY 10/21/2024 10:58 AM DIRECTOR OF PHYSICAL THERAPY Crohn's disease of both small and large intestine with other complication (HCC) COLONOSCOPY 10/21/2024 10:56 AM DIRECTOR OF PHYSICAL THERAPY CTA ABDOMEN PELVIS W WO CONTRAST Schedule [...] EDW Influenza B Ag, POC Negative Negative [facility] COVID-19 Ag POC Presumptive Negative Presumptive Negative, Invalid [facility] EDW Nasal 12/30/2024 7:53 PM CDT us Gladys Valdovinos NP POINT OF CARE TEST ORDERABLES Final Result [facility] EDW [address] [place] [address] * Throat culture Throat (12/30/2024 7:47 PM CDT) Report Final Report: No growth of pathogens. Comment:Testing performed by : [facility], [address] [place]., [address] Throat 12/30/2024 7:47 PM CDT 12/31/2024 2:01 AM CDT Narrative [facility] - 01/01/2025 2:34 AM CDT Testing performed by [facility] Microbiology Laboratory ([phone]). us Gladys Valdovinos NP LAB MICROBIOLOGY - GENERAL ORD ERABLES Final Result [facility] [id number] Department [place] [address] * POCT rapid strep A (12/30/2024 7:46 [...] Large Ketones, ur, POC Negative Negative Specific [place], POC 1.020 1.003 - 1.030 Blood, ur, POC Small(A) Negative pH, ur, POC 5.5 5.0 - 8.0 Protein, ur, POC Negative Negative Urobilinogen, urine, POC 0.2 0.2 - 1.0 mg/dL Nitrite, ur, POC Positive(A) Negative Leukocytes, ur, POC Moderate(A) Negative Lot Number [id number] Urine 12/30/2024 7:41 PM CDT Gladys Valdovinos NP POINT OF CARE TEST ORDERABLES Final Result * (ABNORMAL) Urine culture Urine, clean voided (12/30/2024 7:30 PM CDT) Report Final Report: Greater than or equal to 100,000 colonies/mL of Klebsiella pneumoniae (.) Comment:Testing performed by : [facility], [address] [place]., [address] Organism KLEBSIELLA PNEUMONIAE [facility] Urine, clean voided 12/30/2024 7:30 PM CDT 12/31/2024 2:01 AM CDT Narrative [facility] BROWNLEE - 01/02/2025 8:39 AM CDT Testing performed by [facility] ([phone]) Organism Antibiotic Method Susceptibility Klebsiella pneumoniae Ampicillin [...] - GENERAL ORD ERABLES Final Result [facility] [id number] Department [place] [address] * NM Brain Imaging SPECT/CT (11/28/2024 10:49 [...] CT Chest WO Contrast (11/26/2024 10:46 AM DIRECTOR OF PHYSICAL THERAPY) Anatomical Region Laterality Modality Body N/A Computed Tomogra phy us Preethi Godoy DONALD IMG CT PROCEDURES Final Result * XR Chest PA Lateral 2 Views (11/23/2024 1:30 PM DIRECTOR OF PHYSICAL THERAPY) Anatomical Region Laterality Modality Body, Chest N/A Digital Radiogra phy 11/26/2024 2:09 PM DIRECTOR OF PHYSICAL THERAPY Narrative 11/26/2024 2:11 PM DIRECTOR OF PHYSICAL THERAPY EXAM DESCRIPTION: XR CHEST PA LATERAL 2 [...] bilateral pleural effusion with adjacent airspace opacities, plwnl-mjtjavi-jowp-left. Right mid chest linear density , linear [...] signed by Buck DOUGLAS T: Report ID: [id number] Reading Location: [id number] Procedure Note Buck Oleary, DO - 11/26/2024 [...] Small bilateral pleural effusionwith adjacent airspace opacities, ircsb-lyxojwm-yxcw-left. Right mid chestlinear density , linear atelectasis [...] signed by Buck DOUGLAS T: Report ID: [id number] Reading Location: [place] [address] Preethi Godoy NP IMG XR PROCEDURES Final Result * (ABNORMAL) eGFR (11/23/2024 1:22 PM DIRECTOR OF PHYSICAL THERAPY) eGFR 34(L) >=60 mL/min/1. 73 m2 Comment: [...] last reviewed 2021. Blood 11/23/2024 1:22 PM DIRECTOR OF PHYSICAL THERAPY 11/24/2024 11:14 AM DIRECTOR OF PHYSICAL THERAPY us Preethi Godoy [employer] LAB BLOOD ORDERABLES Final Resul t [facility] [id number] Department [place] [address] * (ABNORMAL) Differential, auto (11/23/2024 1:22 PM DIRECTOR OF PHYSICAL THERAPY) Neutrophil abs 6.3 1.5 - 6.5 K/cumm Imm gran abs 0.0 0.0 - 0.1 K/cumm [facility] Lymphocyte abs 0.7(L) 0.8 - 3.3 K/cumm [facility] Monocyte abs 1.0(H) 0.2 - 0.8 K/cumm [facility] Eosinophil abs 0.2 0.0 - 0.5 K/cumm [facility] Basophil abs 0.1 0.0 - 0.1 K/cumm [facility] Neutrophil pct 75.6 % [facility] Comment: Interpretive Data Percent cell count reference ranges are not reported, since discordance with absolute values may lead to misinterpretation of CBC data. Current Interpretive Data was last revised on 2017. Imm gran pct 0.5 % [facility] Comment: Interpretive Data Percent cell count reference ranges are not reported, since discordance with absolute values may lead to misinterpretation of CBC data. Current Interpretive Data was last revised on 2017. Lymphocyte pct 8.8 % [facility] Comment: Interpretive Data Percent cell count reference ranges are not reported, since discordance with absolute values may lead to misinterpretation of CBC data. Current Interpretive Data was last revised on 2017. Monocyte pct 11.6 % [facility] Comment: Interpretive Data Percent cell count reference ranges are not reported, since discordance with absolute values may lead to misinterpretation of CBC data. Current Interpretive Data was last revised on 2017. Eosinophil pct 2.9 % [facility] Comment: Interpretive Data Percent cell count reference ranges are not reported, since discordance with absolute values may lead to misinterpretation of CBC data. Current Interpretive Data was last revised on 2017. Basophil pct 0.6 % [facility] Comment: Interpretive Data Percent cell count reference ranges are not reported, since discordance with absolute values may lead to misinterpretation of CBC data. Current Interpretive Data was last revised on 2017. Blood 11/23/2024 1:22 PM DIRECTOR OF PHYSICAL THERAPY 11/24/2024 11:08 AM DIRECTOR OF PHYSICAL THERAPY us Preethi Godoy [employer] LAB BLOOD ORDERABLES Final Resul t Performing Organization Address City/State/[facility] Co de Phone Number [facility] [address] [address] Department [place] [address] * (ABNORMAL) CBC with auto differential (11/23/2024 1:22 PM DIRECTOR OF PHYSICAL THERAPY) WBC 8.4 3.8 - 9.9 K/cumm Hgb 9.7(L) 13.0 - 17.5 g/dL [facility] Hct 31.3(L) 38.9 - 50.3 % [facility] Plt 179 150 - 400 K/cumm [facility] MPV 10.2 9.1 - 12.3 fL [facility] RBC 3.12(L) 4.30 - 5.80 M/cumm [facility] MCV 100.3(H) 81.3 - 96.4 fL [facility] MCH 31.1 27.1 - 33.3 pg [facility] MCHC 31.0(L) 32.3 - 35.7 g/dL [facility] RDW CV 17.2(H) 11.1 - 14.9 % [facility] RDW SD 64.2(H) 35.7 - 48.1 fL [facility] NRBC abs 0.00 0.00 - 0.01 K/cumm [facility] Blood 11/23/2024 1:22 PM DIRECTOR OF PHYSICAL THERAPY 11/24/2024 11:08 AM DIRECTOR OF PHYSICAL THERAPY us Preethi Godoy [employer] LAB BLOOD ORDERABLES Final Resul t Performing Organization Address City/State/[facility] Co de Phone Number [facility] [address] [address] [place] [address] * (ABNORMAL) Iron level (11/23/2024 1:22 PM DIRECTOR OF PHYSICAL THERAPY) Pathologist [facility] Iron 47(L) 50 - 150 mcg/dl Blood 11/23/2024 1:22 PM DIRECTOR OF PHYSICAL THERAPY 11/24/2024 11:08 AM DIRECTOR OF PHYSICAL THERAPY us Preethi Godoy FIBERGLASS PRODUCT TESTER LAB BLOOD ORDERABLES Final Resul t Performing Organization Address [facility] de Phone Number [place] [address] [address] [place] [address] * (ABNORMAL) Basic metabolic panel (11/23/2024 1:22 PM DIRECTOR OF PHYSICAL THERAPY) Pathologist [facility] Sodium 141 135 - 145 mmol/L Potassium, pl 3.6 3.3 - 4.9 mmol/L [facility] Chloride 109 97 - 110 mmol/L [facility] CO2 21(L) 22 - 32 mmol/L [facility] Anion gap 11 2 - 15 mmol/L [facility] BUN 18 6 - 25 mg/dL [facility] Creatinine 1.97(H) 0.80 - 1.30 mg/dL [facility] Glucose 75 70 - 199 mg/dL [facility] Comment: Interpretive Data Fasting glucose >/= 126 [...] 10.3 mg/dL [facility] Blood 11/23/2024 1:22 PM DIRECTOR OF PHYSICAL THERAPY 11/24/2024 11:08 AM DIRECTOR OF PHYSICAL THERAPY us Preethi Godoy DONALD LAB BLOOD ORDERABLES Final Resul t [place] [address] [address] Department [place] [address] * XR Chest Pa Lateral 2 Views (11/16/2024 2:07 PM DIRECTOR OF PHYSICAL THERAPY) Anatomical Region Laterality Modality Body, Chest N/A Digital Radiogra phy 11/16/2024 3:45 PM DIRECTOR OF PHYSICAL THERAPY Narrative 11/16/2024 3:51 PM DIRECTOR OF PHYSICAL THERAPY EXAM DESCRIPTION: XR CHEST PA LATERAL 2 [...] Jeffery Dawkins M.D. MJ T: Report ID: [id number] Reading Location: [id number] Procedure Note Jeffery Dawkins MD - 11/16/2024 [...] by Jeffery Dawkins M.D. T: Report ID: [id number] Reading Location: [place] [address] [facility] XR PROCEDURES Final Result * (ABNORMAL) Influenza A/B, RSV, and COVID-19 PCR Nasopharyngeal (11/14/2024 11:00 AM DIRECTOR OF PHYSICAL THERAPY) Pathologist [facility] COVID-19 RNA Negative Negative [facility] Influenza A RNA Negative Negative [facility] Influenza B RNA Negative Negative [facility] RSV RNA Positive(A) Negative [facility] Comment: Interpretive data: Testing performed by [facility]. This test is performed using the Canvita Xpert Xpress CoV-2/Flu/RSV plus assay. This is a multiplex, real-time reverse transcriptase PCR assay intended for the qualitative detection of nucleic acid from SARS-CoV-2, influenza A, influenza B, and respiratory syncytial virus. This assay has been cleared by the [place] Food and Drug administration. The performance characteristics have been verified by the [facility]. Results must be considered in the clinical context, and a negative result does not rule out infection. Interpretive Data last revised 2023 Nasopharyngeal 11/14/2024 11 :00 AM DIRECTOR OF PHYSICAL THERAPY 11/14/2024 2:41 PM DIRECTOR OF PHYSICAL THERAPY Narrative [place] - 11/14/2024 3:32 PM DIRECTOR OF PHYSICAL THERAPY Is the Patient experiencing symptoms consistent with COVID?->Yes [facility] MICROBIOLOGY - GENER AL ORDERABLES Final Result Performing Organization Address City/[facility]/ZIP Co de Phone Number [place] [address] [address] [place] [address] * POC Influenza A/B, COVID-19 antigen (11/14/2024 10:47 AM DIRECTOR OF PHYSICAL THERAPY) Influenza A Ag, POC Negative Negative [facility] Influenza B Ag, POC Negative Negative [facility] COVID-19 Ag POC Presumptive Negative Presumptive Negative, Invalid [facility] Nasal 11/14/2024 10:4 7 AM DIRECTOR OF PHYSICAL THERAPY M[facility] POINT OF CARE TEST ORDER MANJINDER Final Result [facility] [address] [place] [address] * Surgical pathology (10/21/2024 11:18 AM DIRECTOR OF PHYSICAL THERAPY) Tissue specimen (specimen) (Ileum, Biopsy) 10/21/2024 11:18 AM DIRECTOR OF PHYSICAL THERAPY Tissue specimen (specimen) (Colon, Biopsy) 10/21/2024 11:31 AM DIRECTOR OF PHYSICAL THERAPY Narrative PATHOLOGY [facility] - 10/22/2024 11:22 AM DIRECTOR OF PHYSICAL THERAPY EPIC results best viewed via link to PDF [facility] Ambreen Bello [facility] [place] [address] Note to Patients: This report may contain [...] M : 1945 (Age: 79) Address: [address] [place] [address] [place] [id number] Hospital #: [id number] Taken:10/21/2024 Received:10/21/2024 Reported: 10/22/2024 Patient Type: [facility] Service: Gastro Location: Physician(s): Edmund Waterman F.N.PHansa Diagnosis: A. Small intestine, terminal ileum, endoscopic biopsy - No histopathologic abnormality - No evidence of acute or chronic ileitis, ulcers, or granulomas - No dysplasia or malignancy B. Large intestine, random colon, endoscopic biopsy - No histopathologic abnormality - No evidence of active colitis, chronic colitis, ulcers, or granulomas - No dysplasia or malignancy [facility]/10/22/2024 11:22 By this signature, I attest that [...] Surgical Pathology and Flow Cytometry Departments at [facility] as part of an ongoing quality technician program and in compliance with federally mandated [...] Surgical Pathology and Flow Cytometry Departments of [facility]. It has not been cleared or approved by the [place]. [place]. Food and Drug Administration. IMAGES AND SCANNED DOCUMENTS, IF INCLUDED, ONLY VIEWABLE IN PDF VERSION OF REPORT us Kath Shepherd MD LAB PATHOLOGY ORDERABLES Laly mckenzie Result PATHOLOGY [facility] 3rd Floor [place], [place] [phone] * Colonoscopy (10/21/2024 10:56 AM DIRECTOR OF PHYSICAL THERAPY) Anatomical Region Laterality Modality Other Narrative Procedure Note Kath Shepherd MD - 10/21/2024 10:56 AM CST GI ENDOSCOPY [facility] Patient Name: Aziza Loya Procedure Date: 10/21/2024 10:56 AM Date of : 1945 Admit Type: Outpatient Age: 79 Gender: Male Attending MD: Kath Shepherd M.D. Room: [facility] ENDOSCOPY ROOM 3 Note Status: [...] The scope was passed under direct vision.The [facility] [id number] endoscope was introducedthrough the anus and [...] Steven Ruano M.D. RB T: Report ID: [id number] Reading Location: [id number] Procedure Note Steven Ruano MD - 02/24/2024 [...] signed by Steven RAJPUT T: Report ID: [id number] Reading Location: [id number] Annie TOW[address] IMG CT PROCEDURES Final Res [...] [place] [address] [address] Department [place] [address] from Last 3 Months or Most Recently Relevant to Health Maintenance Insurance [facility] MEDICARE MEDICARE [facility] Member Subscriber Plan / Payer ( fective 2017-) Name:Aziza Loya Relation to Subscriber:Self Name:Aziza Lyoa Payer ID:[id number] Group ID:[id number] Type:COMMERCIAL Address: [facility] [address] [place] [id number] MEDICARE [facility] MEDICARE [facility] MEDICARE [facility] Advance Directives For more information, please contact: [phone] * Full Code (Latest Code Status on [...] 10:45 AM 05/17/2022 5:55 PM Care Teams Link Fabric Machine Operator Relationship Specialty Start Date End Date Preethi Godoy NP [address] [facility] [address] [place], [place] [id number] PCP - General Family Medicine 08/25/24 Kath Shepherd MD [address] [place] [address] Consulting Physician Gastroenterology 07/22/19 Peter Ya MD [address] [place] [address] Plc Controls Engineer Cardiology 07/22/19 Aziza Ledesma MD [address] [place] [address] Consulting Physician Neurology 07/22/19 Joshua Butterfield MD [address] [facility] [address] [facility] 200 [place] [address] Consulting Physician Urology 07/03/23 Jeffery Bustillos MD [address] [address] Consulting Physician Cardiovascular Disease 02/06/24 Shimon Schofield MD [address] [address] Consulting Physician Vascular Surgery 02/06/24
--- OUTSIDE RECORDS SUMMARY | 2025-01-04 18:38 | XMS_ITS | Encounter Summary ---
Author Organization [facility] Address [address] [place] [address] Phone Care Team Providers Care Helicopter Mechanic Name Role Phone John Kimbrough MD Primary Care Provider [phone] Kath Shepherd MD Unavailable [phone] Peter Ya MD Unavailable [phone] Vitaly Ledesma MD Unavailable [phone] Anayeli Lee MD Primary Care Provider Joshua Butterfield MD Unavailable [phone] Jeffery Bustillos MD Unavailable [phone] Shimon Schofield MD Unavailable Preethi Godoy NP Primary Care Provider Encounter Details Date Type Department Care Team (Late st Contact Info) Description 02/03/2020 Telephone [facility] Gastroenterology [facility] 8th [place] [address] [place] [address] Sheire Yoo, [facility] Social History Tobacco Use Types Packs/Day Years Used Date Smoking Tobacco: Former Smokeless Tobacco: Never Alcohol Use Standard Drinks/Week Comments No 0 (1 standard drink = 0.6 oz pur e alcohol) Sex and Gender Information Value Date Recorded Sex Assigned at Not on file 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 2:24 AM BETTING AGENCY COUNTER CLERK Gender Identity Not on file Sexual Orientation Not on file documented as of this encounter Plan of Treatment Not on file documented as of this encounter Visit Diagnoses Not on filedocumented in this encounter Additional Health Concerns Infection Onset Date Last Indicated Resolved Time COVID: Suspected 08/21/2021 08/21/2021 08/21/2021 11:38 AM BETTING AGENCY COUNTER CLERK COVID: Suspected 11/14/2024 11/14/2024 11/14/2024 10:49 AM BETTING AGENCY COUNTER CLERK COVID: Suspected 11/14/2024 11/14/2024 11/14/2024 3:33 PM BETTING AGENCY COUNTER CLERK RSV, droplet 11/14/2024 11/14/2024 11/21/2024 3:07 AM BETTING AGENCY COUNTER CLERK COVID: Suspected 12/30/2024 12/30/2024 12/30/2024 7:54 PM CDT documented as of this encounter Care Teams Helicopter Mechanic Relationship Specialty Start Date End Date John Kimbrough MD [address] [facility] [address] [place] [address] PCP - General 11/08/16 07/02/23 Anayeli Lee MD [address] [place] [address] PCP - General Family Medicine 07/03/23 08/24/24 Preethi Godoy NP [address] [facility] 130 [place] [address] PCP - General Family Medicine 08/25/24 Kath Shepherd MD [address] [place] [address] Consulting Physician Gastroenterology 07/22/19 Peter Ya MD [address] [place] [address] Electron Beam Machine Welder Setter Cardiology 07/22/19 Vitaly Ledesma MD [address] [place] [address] Consulting Physician Neurology 07/22/19 Joshua Butterfield MD [address] [facility] [address] [place] [address] Consulting Physician Urology 07/03/23 Jeffery Bustillos MD [address] [facility] [address] [place] [address] Consulting Physician Cardiovascular Disease 02/06/24 Shimon Schofield MD [address] [facility] [address] [place] [address] Consulting Physician Vascular Surgery 02/06/24 documented as of this encounter
--- OUTSIDE RECORDS SUMMARY | 2025-01-04 18:38 | XMS_ITS | Encounter Summary ---
Author Organization [facility] Address [address] [place] [address] Phone Care Team Providers Care Audit Consultant Name Role Phone John Kimbrough MD Primary Care Provider [phone] Kath Shepherd MD Unavailable [phone] Peter Ya MD Unavailable [phone] Vitaly Ledesma MD Unavailable [phone] Anayeli Lee MD Primary Care Provider Joshua Butterfield MD Unavailable [phone] Jeffery Bustillos MD Unavailable [phone] Shimon Schofield MD Unavailable Preethi Godoy NP Primary Care Provider [phone] Encounter Details Date Type Department Care Team (Late st Contact Info) Description 08/21/2021 Telephone [facility] Oncology [address] [facility] [address] [place] [id number] Maribel Shore CPhT Social History Tobacco Use [...] on file 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 2:24 AM MANUSCRIPT READER Gender Identity Not on file Sexual Orientation Not on file 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 [employer] Not on file Not on file Not on file documented as of this encounter Plan of Treatment Not on file documented as of this encounter Visit Diagnoses Not on filedocumented in this encounter Additional Health Concerns Infection Onset Date Last Indicated Resolved Time COVID: Suspected 08/21/2021 08/21/2021 08/21/2021 11:38 AM MANUSCRIPT READER COVID: Suspected 11/14/2024 11/14/2024 11/14/2024 10:49 AM MANUSCRIPT READER COVID: Suspected 11/14/2024 11/14/2024 11/14/2024 3:33 PM MANUSCRIPT READER RSV, droplet 11/14/2024 11/14/2024 11/21/2024 3:07 AM MANUSCRIPT READER COVID: Suspected 12/30/2024 12/30/2024 12/30/2024 7:54 PM CDT documented as of this encounter Care Teams Audit Consultant Relationship Specialty Start Date End Date John Kimbrough MD [address] [facility] [address] [place] [address] PCP - General 11/08/16 07/02/23 Anayeli Lee MD [address] [place] [address] PCP - General Family Medicine 07/03/23 08/24/24 Preethi Godoy NP [address] [address] PCP - General Family Medicine 08/25/24 Kath Shepherd MD [address] [place] [address] Consulting Physician Gastroenterology 07/22/19 Peter Ya MD [address] [place] [address] Shed Hand Cardiology 07/22/19 Vitaly Ledesma MD [address] [place] [address] Consulting Physician Neurology 07/22/19 Joshua Butterfield MD [address] [facility] 200 [place] [address] Consulting Physician Urology 07/03/23 Jeffery Bustillos MD [address] [facility] [address] [place] [address] Consulting Physician Cardiovascular Disease 02/06/24 Shimon Schofield MD [address] [address] Consulting Physician Vascular Surgery 02/06/24 documented as of this encounter
[2025-01-04 18:42] LABS: INR 1.2; Prothrombin Time 15.7 Seconds (11.1-14.7)
[2025-01-04 18:43] LABS: Lactic Acid Reflex 1.1 mmol/L (0.7-2.0); Partial Thromboplastin Time 31.2 Seconds (22.3-36.8)
[2025-01-04 18:44] VITALS: BP 121/73; PULSE 100; RESP 18; O2SAT 98
[2025-01-04] MEDS: SODIUM CHLORIDE 0.9% IV 1,000 ML 999 ML IV CONT (18:44)
[2025-01-04 18:45] LABS: Alanine Aminotransferase 56 U/L (6-50); Alkaline Phosphatase 107 U/L (38-126); Anion Gap 9 mmol/L (4-12); Aspartate Amino Transferase 46 U/L (17-59); Bilirubin,Total 0.4 mg/dL (0.2-1.3); Blood Urea Nitrogen 22 mg/dL (9-20); CRP 1.3 mg/dL (<1.0); Calcium 8.2 mg/dL (8.4-10.2); Carbon Dioxide 29 mmol/L (22-30); Chloride 102 mmol/L (98-107); Estimated CRCL calculation 24 ml/min; Estimated Glomerular Filt Rate 30; Glucose 103 mg/dL (65-110); Potassium 3.6 mmol/L (3.4-5.0); Sodium 140 mmol/L (137-145)
[2025-01-04 18:53] LABS: Troponin I < 0.012 ng/mL (0.000-0.034)
--- NOTE | 2025-01-04 19:00 | PC.NURSE ---
Pt reports he self-catheterizes at home. EDP made aware, agreeable for pt to self catheterize for urine sample.
[2025-01-04 19:28] LABS: Influenza A QL RT-PCR Negative (Negative); Influenza B QL RT-PCR Negative (Negative); RSV RNA, RT-PCR Negative (Negative); SARS-CoV-2 RNA PCR Negative (Negative)
[2025-01-04 20:57] VITALS: TEMP 37.2
[2025-01-04 21:00] LABS: Add Urine Microscopic? YES; Appearance Urine Clear (Clear); Bacteria Urine None Seen /hpf; Bilirubin Urine Negative (Negative); Blood Urine Trace (Negative); Color Urine Yellow (Yellow); Glucose Urine UA Negative (Negative); Ketones Urine Negative (Negative); Leukocyte Esterase Ur Negative LEU/UL (Negative); Nitrate Urine Negative (Negative); Protein Urine Trace mg/dL (Negative); RBC Urine 0-2 /hpf (0-2); Specific Grav Ur 1.012 (1.001-1.035); Squamous Epithelial Cell Urine None Seen /hpf (Few); Urobilinogen Urine 0.2 mg/dL (<2.0); WBC Urine 0-5 /hpf (0-3); pH Urine 5.5 (5.0-9.0)
[2025-01-04] MEDS: SODIUM CHLORIDE 0.9% IV 500 ML 999 ML IV CONT (21:08)
--- NOTE | 2025-01-04 21:59 | P.HP_ITS ---
H&P: HPI History of Present Illness Date/Time: 01/04/25 21:59 Chief Complaint: Fever Narrative: A 79-year-old male with a past medical history of Crohn's disease, dementia, AFib, chronic urinary retention with the need for straight cath, CHF, CKD, and cardiomyopathy presented to the emergency department due to fever, chills, and cough for about a week. A patient recently went to his PCP and was diagnosed with a UTI. The patient was started on cefdinir. The patient began developing chills and fever and was brought to the ED. The patient has some episodes of diarrhea. All patients with a history of Crohn's stool studies will be performed. Of note, the patient has a history of kidney stones, and he has some discomfort in the bilateral flank area. Pertinent ED labs: WBC 8.6, hemoglobin 10.3, hematocrit 33.4, platelet 185, sodium 140, potassium 3.6, BUN 22, creatinine 2.13, GFR 30, AST 46 ALT 56 UA: Negative for nitrates and leukocyte esterase RSV, influenza, COVID negative CXR:Bibasilar atelectasis versus pneumonia.Cardiomegaly CT Abdomen. There is no evidence of appendicitis, colitis, or intestinal obstruction. 2. Right basilar atelectasis versus pneumonia with pleural effusion. Left basilar atelectasis versus pneumonia. 3. The previous study did not show A nodule in the right lower lobe measuring 6 mm. 3 months follow-up advised. 4. Thickened wall of the urinary bladder. Evaluation for cystitis is advised. 5. Multiple hypodensities in the pelvis' bones may indicate metastatic lesions. Clinical correlation advised Echo performed on 11/08/2023: Left ventricular systolic function is mildly reduced, estimated at 40-45%. The patient will be admitted to a possible PNA and A.Fib setting. In the ED, the patient had an elevated heart rate in the 120s and met SIRS criteria. Lactic acid is 1.1. He received possibly 2.5L fluids in the ED. Due to the history of CHF, we will only do gentle hydration if necessary. The patient has a history of straight catheterization at least 3 times a day, which was done by his and her . Of note, a member patient was discharged on 12/01/2024 at the time she reported the patient has a history of Crohn's disease, which makes him worse when he gets antibiotics. He was brought into the hospital because of groaning in the night, which she says is his usual sign of UTI. Patient denies any recent/past bleeding episodes and was not able to verify why he is not on any anticoagulant for AFib. 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 Intermittent self-catheterization of bladder Cardiomyopathy Recurrent incisional hernia Atrial fibrillation with RVR Heart failure Chronic anemia Vascular dementia Seizures B12 deficiency Depression Gout Osteoarthritis Iron deficiency anemia Benign prostatic hyperplasia Kidney stones Chronic kidney disease, stage 3 Crohn's disease Hyperlipidemia Hypertension Peripheral vascular disease Coronary artery disease Surgical History Surgical History S/P CABG (coronary artery bypass graft) History of bilateral cataract extraction History of lithotripsy History of partial colectomy X2 for to bowel obstructions and fistula secondary to Crohn's disease. History of cholecystectomy History of vascular surgery Bilateral lower extremity stents. History of coronary artery bypass graft Family History Family History Father Myocardial infarct Cerebrovascular accident Mother Breast cancer Sibling Crohn's disease Social History Social History Social History: Surrogate decision maker: Sarah Oreilly, spouse. Code status: Do not resuscitate. Smoking packs per day: 2 Smoking cigarettes per day: 40.0 Years smoked: 25 Smoking pack-years: 50.00 Smoking status: Former smoker Tobacco type: cigarettes Second hand tobacco smoke exposure: No Alcohol intake: former Substance use: never Substance use type: does not use Do You Feel Safe in your Home?: Yes Lack of Transportation: No Lack of Food: Never True Current Housing: I Have Housing Concerned About Future Housing: No Difficulty Paying Gas/Electric Bills: No Difficulty Paying for Meds: No Currently Unemployed: No Education: Trade/Vocational Certificate Difficulty w/ Childcare or Family Care: No Additional living arrangements comments: The patient lives with his in [place]. Additional occupation/education comments: Retired from [employer]. Spiritual care concerns: No Meds Home Medications and Allergies Home Medications ?Medication ?Instructions ?Recorded ?Confirmed ?Type Lactobacillus 1 cap PO DAILY 11/08/23 01/04/25 History acidophilus-Bifidobac.animalis 2.5 billion cell capsule (Daily Probiotic) allopurinol 100 mg tablet 100 mg PO HS 11/08/23 01/04/25 History aspirin 81 mg tablet 81 mg PO DAILY 11/08/23 01/04/25 History atorvastatin 10 mg tablet 10 mg PO QPM 11/08/23 01/04/25 History cilostazol 100 mg tablet 100 mg PO DAILY 11/08/23 01/04/25 History coenzyme Q10 200 mg capsule (Co 200 mg PO DAILY 11/08/23 01/04/25 History Q-10) multivit with minerals-iron 18 1 tablet PO DAILY 11/08/23 01/04/25 History mg-folic ac 400 mcg-vit K 25 mcg tablet (Adults Multivitamin) Folcaps [place]-3 1 cap PO BID 05/12/24 01/04/25 History fluticasone propionate 50 1 spray intranasal Q12H 05/12/24 01/04/25 History mcg/actuation nasal spray,suspension furosemide 40 mg tablet 40 mg PO DAILY 05/12/24 01/04/25 History cyanocobalamin (vitamin B-12) 1,000 mcg IM MONTHLY 07/02/24 01/04/25 History 1,000 mcg/mL injection solution ferrous sulfate 325 mg (65 mg 325 mg PO DAILY@0800 11/28/24 01/04/25 History iron) tablet (FeroSul) risankizumab-rzaa 360 mg/2.4 mL 360 mg subcut .Every 8 weeks 11/30/24 01/04/25 History (150 mg/mL) subcut wearable injector (Skyrizi) donepezil 10 mg tablet (Aricept) 10 mg PO QHS #90 tabs 12/21/24 01/04/25 Rx levetiracetam 750 mg tablet 750 mg PO Q12HR 30 days #180 tabs 12/21/24 01/04/25 Rx memantine 10 mg tablet 10 mg PO BID #180 tabs 12/21/24 01/04/25 Rx donepezil 10 mg tablet 10 mg PO DAILY #90 tabs 12/29/24 01/04/25 Rx escitalopram oxalate 20 mg tablet 20 mg PO HS 01/04/25 01/04/25 History metoprolol tartrate 25 mg tablet 75 mg PO HS 01/04/25 01/04/25 History tamsulosin 0.4 mg capsule 0.4 mg PO HS 01/04/25 01/04/25 History Allergies Allergy/AdvReac Type Severity Reaction Status Date / Time No Known Allergies Allergy Verified 01/04/25 16:56 Vital Signs Vital Signs - 24 hr 01/04/25 17:16 01/04/25 18:22 01/04/25 18:44 Temperature 101 F H 98.8 F Pulse Rate 119 H 100 Respiratory Rate 18 18 Blood Pressure 123/65 121/73 Pulse Oximetry 96 98 01/04/25 20:57 Temperature 99.0 F Pulse Rate Respiratory Rate Blood Pressure Pulse Oximetry Exam Narrative: GENERAL: Well-appearing, well-nourished, and in no acute distress. HEAD: Normocephalic, atraumatic. EYES: PERRLA and EOMI. ENT: Nares clear, no rhinorrhea or epistaxis. Mucous membranes moist. Oropharynx without tonsillar hypertrophy exudate or other lesions. NECK: Supple. No adenopathy or masses. CHEST: No respiratory distress. Clear to auscultation. No wheezes rales or rhonchi HEART: Regular rate and rhythm. No murmur heard. Normal peripheral pulses. ABDOMEN: Soft, nontender, nondistended, normal active bowel sounds. MSK: Normal range of motion. No edema. SKIN: Warm, dry, no rash. NEURO: Alert and oriented x4. No focal deficits. PSYCH: Normal mood and affect. H&P: Results Labs Labs: Short CBC 01/04/25 Range/Units 18:17 WBC 8.6 (4.5-10.0) K/mm3 Hgb 10.3 L (14.0-18.0) g/dL Hct 33.4 L (42.0-52.0) % Plt Count 185 (150-375) k/mm3 [facility] 01/04/25 18:17 Sodium 140 Potassium 3.6 Chloride 102 Carbon Dioxide 29 BUN 22 H Creatinine 2.13 H Glucose 103 Calcium 8.2 L Cardiac Enzymes 01/04/25 Range/Units 18:17 Troponin I < 0.012 (0.000-0.034) ng/mL Liver Function 01/04/25 Range/Units 18:17 Total Bilirubin 0.4 (0.2-1.3) mg/dL AST 46 (17-59) U/L ALT 56 H (6-50) U/L Alkaline Phosphatase 107 (38-126) U/L Albumin 4.0 (3.5-5.1) g/dL Urine 01/04/25 Range/Units 20:41 Urine Color Yellow (Yellow) Urine Appearance Clear (Clear) Urine pH 5.5 (5.0-9.0) Ur Specific [place] 1.012 (1.001-1.035) Urine Protein Trace (Negative) mg/dL Urine Glucose (UA) Negative (Negative) mg/dL Assessment and Plan Assessment and plan (1) Atrial fibrillation: Code(s): I48.91 - Unspecified atrial fibrillation Status: Chronic (2) Cardiomyopathy: Code(s): I42.9 - Cardiomyopathy, unspecified Status: Chronic (3) Dementia of the Alzheimer's type: Code(s): G30.9 - Alzheimer's disease, unspecified; F02.80 - Dementia in other diseases classified elsewhere, unspecified severity, without behavioral disturbance, psychotic disturbance, mood disturbance, and anxiety Status: Acute Plan PNA Vital signs improved and stable RSV COVID flu negative Started on Amox clav and azithromycin monitor cultures MRSA pending encourage oral intake CKD monitor closely during diuresis Avoid nephrotoxic drugs. Monitor antihypertensive drug therapy. Avoid NSAIDs. Routine CMP monitoring GFR. Monitor electrolytes especially potassium. Antibiotic doses depending on creatinine clearance. Pharmacy does medications. Cr stable 2.3 appears at baseline Routine follow-up with Nephrology as an outpatient. A.Fib Chronic Pending TSH Past medical history of CHF Continue metoprolol 75 mg p.o. q.d. Not on anticoagulant Reviewed echo ejection fraction 40-45 % Crohn's Continue Skyrizi Chronic Order stool studies including culture and WBC Dementia Continue home medication CHF Reviewed echo ejection fraction 40-45 % Continue home medication once medical reconciliation is complete Continue metoprolol succinate 75 mg p.o. q.d., furosemide 40 mg p.o. q.d. Monitor I and O's DVT prophylaxis Lovenox 40 mg subcutaneous Hospitalist MIPS Advance Care Plan I have confirmed that the patient's Advanced Care Plan is present, code status is documented, or surrogate decision maker is listed in patient medical record.: Yes Medication Reconciliation I have utilized all available resources to obtain, update and review the patients current medications (includes all prescriptions, OTC, herbals, cannabis, and nutritional supplements).: Yes
[2025-01-04 22:50] VITALS: BP 147/89; PULSE 108; RESP 18; TEMP 36.7; O2SAT 100; BMI 19.5
[2025-01-04] MEDS: SODIUM CHLORIDE 0.9% IV 1,000 ML 75 ML IV CONT (22:55)
[2025-01-04] MEDS: AZITHROMYCIN 500 MG/NS 250 ML 500 MG/250 ML BAG 250 MG IVPB (22:56)
--- NOTE | 2025-01-04 23:20 | ADMGEN ---
This patient, Vitaly Oreilly, was admitted to Medical Room 243-. Patient/family oriented to hospital policies and general routines including ID bracelet, bed and alarms, visiting hours, pain management, procedures, bathroom and other care routines, personal items, smoking policy, room service/diet, and visiting hours. Information on how to activate the Rapid Response Team has been discussed. Patient/Family are encouraged to report perceived risks to care and to ask questions if they do not understand what they are told or what they should do.
[2025-01-05] VITALS (13 sets, daily range): BP systolic 112–137; BP diastolic 42–87; PULSE 74–134; RESP 16–18; TEMP 36.9–37.4; O2SAT 97–100
[2025-01-05] MEDS: TAMSULOSIN HCL 0.4 MG CAPSULE PO ×2 (01:18→20:19)
[2025-01-05] MEDS: levETIRAcetam 250 MG TABLET 750 MG PO ×3 (01:18→20:19)
[2025-01-05] MEDS: ESCITALOPRAM OXALATE 10 MG TABLET 20 MG PO ×2 (01:18→20:19)
[2025-01-05] MEDS: METOPROLOL TARTRATE INJ 5 MG/5 ML VIAL 2.5 MG IV PUSH (03:53)
[2025-01-05 05:31] LABS: Hemoglobin 9.3 g/dL (14.0-18.0); Mean Corpuscular Hemoglobin 31.4 pg (26-34); Mean Corpuscular Volume 101.4 fl (80-100); Mean Platelet Volume 9.7 fl (7.4-10.4); Platelet Count Result 161 k/mm3 (150-375); Red Blood Count 2.96 M/mm3 (4.6-6.20); Red Cell Distribution Width 14.2 % (11.5-14.5); White Blood Count 7.8 K/mm3 (4.5-10.0)
[2025-01-05 06:52] LABS: Alanine Aminotransferase 44 U/L (6-50); Albumin Level 3.2 g/dL (3.5-5.1); Alkaline Phosphatase 96 U/L (38-126); Anion Gap 7 mmol/L (4-12); Aspartate Amino Transferase 39 U/L (17-59); Bilirubin,Total 0.5 mg/dL (0.2-1.3); Blood Urea Nitrogen 19 mg/dL (9-20); Calcium 8.3 mg/dL (8.4-10.2); Carbon Dioxide 26 mmol/L (22-30); Chloride 106 mmol/L (98-107); Estimated CRCL calculation 26 ml/min; Estimated Glomerular Filt Rate 36; Glucose 89 mg/dL (65-110); Potassium 3.6 mmol/L (3.4-5.0); Sodium 139 mmol/L (137-145)
[2025-01-05] MEDS: METOPROLOL TARTRATE 50 MG TAB 150 MG PO ×2 (08:24→20:19)
[2025-01-05] MEDS: DONEPEZIL HCL 10 MG TABLET PO (08:25)
[2025-01-05] MEDS: cilostazoL 100 MG TABLET PO (08:25)
[2025-01-05] MEDS: ASPIRIN 81 MG ENTERIC TABLET PO (08:25)
[2025-01-05] MEDS: FERROUS SULFATE 325 MG TABLET DR BY MOUTH (08:26)
[2025-01-05] MEDS: FUROSEMIDE 40 MG TABLET PO (08:26)
[2025-01-05] MEDS: MEMANTINE 10 MG TABLET PO ×2 (08:26→20:19)
[2025-01-05] MEDS: ENOXAPARIN 30 MG/0.3 ML SYRINGE SUB-Q (08:26)
[2025-01-05] MEDS: FLUTICASONE PROPIONATE 0.05% NA SPR 16 GM BTL (*BKC) 1 SPRAY NASAL ×2 (08:27→20:22)
[2025-01-05] MEDS: SODIUM CHLORIDE 0.9% IV 1,000 ML 75 ML IV CONT (12:10)
--- NOTE | 2025-01-05 14:04 | PM.IMPN ---
Progress Note: A&P Assessment and Plan (1) Atrial fibrillation: Code(s): I48.91 - Unspecified atrial fibrillation Status: Chronic (2) Cardiomyopathy: Code(s): I42.9 - Cardiomyopathy, unspecified Status: Chronic (3) Dementia of the Alzheimer's type: Code(s): G30.9 - Alzheimer's disease, unspecified; F02.80 - Dementia in other diseases classified elsewhere, unspecified severity, without behavioral disturbance, psychotic disturbance, mood disturbance, and anxiety Status: Acute Plan A 79-year-old male with a past medical history of Crohn's disease, dementia, AFib, chronic urinary retention with the need for straight cath, CHF, CKD, and cardiomyopathy presented to the emergency department due to fever, chills, and cough for about a week. PNA Vital signs improved and stable RSV COVID flu negative Started on Amox clav and azithromycin monitor cultures MRSA pending encourage oral intake Patient afebrile overnight, blood cultures no growth so far CKD monitor closely during diuresis Avoid nephrotoxic drugs. Monitor antihypertensive drug therapy. Avoid NSAIDs. Routine CMP monitoring GFR. Monitor electrolytes especially potassium. Antibiotic doses depending on creatinine clearance. Pharmacy does medications. Cr stable 2.3 appears at baseline Routine follow-up with Nephrology as an outpatient. Cr is trending down to 1.82 A.Fib Chronic Pending TSH Past medical history of CHF Continue metoprolol 75 mg p.o. q.d. Not on anticoagulant Reviewed echo ejection fraction 40-45 % Crohn's Continue Skyrizi Chronic Order stool studies including culture and WBC Dementia Continue home medication CHF Reviewed echo ejection fraction 40-45 % Continue home medication once medical reconciliation is complete Continue metoprolol succinate 75 mg p.o. q.d., furosemide 40 mg p.o. q.d. Monitor I and O's DVT prophylaxis Lovenox 40 mg subcutaneous Subjective Date/time seen: 01/05/25 14:04 Interval history: Patient is afebrile overnight, still has tachycardia, Patient feels better Labs reviewed, white blood cell within normal limit, creatinine is trending down Blood culture has no growth so far. Exam Narrative: GENERAL: Pleasant, in no acute distress. Well-nourished. - EYES: EOMI. Anicteric. - HENT: Moist mucous membranes. - LUNGS: Coarse breath sound bilaterally - CARDIOVASCULAR: Regular rate and rhythm. No murmur. No JVD. - ABDOMEN: Soft, non-tender and non-distended. No palpable masses. - EXTREMITIES: No edema. Peripheral pulses 2+. Non-tender. - NEUROLOGIC: No focal neurological deficits. CN II-XII grossly intact. - PSYCHIATRIC: Awake, Alert and oriented x 3. Appropriate mood and affect. - SKIN: No rashes or lesions. Warm. - LYMPH: No cervical lymphadenopathy. Objective Data Vital Signs Vital Signs: Vital Signs - 24 hr 01/04/25 17:16 01/04/25 18:22 01/04/25 18:44 Temperature 101 F H 98.8 F Pulse Rate 119 H 100 Respiratory Rate 18 18 Blood Pressure 123/65 121/73 Pulse Oximetry 96 98 Oxygen Delivery 01/04/25 20:57 01/04/25 22:50 01/04/25 23:08 Temperature 99.0 F 98.0 F Pulse Rate 108 H Respiratory Rate 18 Blood Pressure 147/89 H Pulse Oximetry 100 Oxygen Delivery Room Air 01/05/25 00:03 01/05/25 03:53 01/05/25 04:00 Temperature Pulse Rate 106 H 134 H 106 H Respiratory Rate Blood Pressure Pulse Oximetry Oxygen Delivery 01/05/25 05:01 01/05/25 07:32 01/05/25 08:00 Temperature 98.8 F 98.5 F Pulse Rate 88 121 H Respiratory Rate 17 16 Blood Pressure 137/87 112/64 Pulse Oximetry 97 98 Oxygen Delivery Room Air 01/05/25 08:24 Temperature Pulse Rate 121 H Respiratory Rate Blood Pressure Pulse Oximetry Oxygen Delivery Intake/Output Intake/Output: Intake & Output 01/02/25 01/03/25 01/04/25 01/05/25 23:59 23:59 23:59 23:59 Intake Total 1550 1373.8 Output Total 150 900 Balance 1400 473.8 Meds/Results Medications: Active Medications Generic Name Dose Route Start Last Admin Trade Name Freq PRN Reason Stop Dose Admin Allopurinol 100 mg 01/05/25 21:00 Allopurinol 100 Mg Tablet PO HS [facility] Aspirin 81 mg 01/05/25 09:00 01/05/25 08:25 Aspirin 81 Mg Enteric Tablet PO 81 mg QAM [facility] Administration Atorvastatin Calcium 10 mg 01/05/25 18:00 Atorvastatin 10 Mg Tablet PO QPM [facility] Cilostazol 100 mg 01/05/25 07:30 01/05/25 08:25 Cilostazol 100 Mg Tablet PO 100 mg DAILY@0730 [facility] Administration Cyanocobalamin 1,000 mcg 01/31/25 09:00 Cyanocobalamin Inj 1,000 Mcg/Ml Vial IM MONTHLY [facility] Donepezil HCl 10 mg 01/05/25 09:00 01/05/25 08:25 Donepezil Hcl 10 Mg Tablet PO 10 mg DAILY [facility] Administration Enoxaparin Sodium 30 mg 01/05/25 09:00 01/05/25 08:26 Enoxaparin 30 Mg/0.3 Ml Syringe SUB-Q 30 mg DAILY [facility] Administration Escitalopram Oxalate 20 mg 01/05/25 00:35 01/05/25 01:18 Escitalopram Oxalate 10 Mg Tablet PO 20 mg HS [facility] Administration Ferrous Sulfate 325 mg 01/05/25 08:00 01/05/25 08:26 Ferrous Sulfate [address] BY MOUTH 325 mg DAILY@0800 [facility] Administration Fluticasone Propionate 1 spray 01/05/25 09:00 01/05/25 08:27 Fluticasone Propionate 0.05% Na Spr 16 Gm Btl (*Bk) NASAL 1 spray Q12HR [facility] Administration Furosemide 40 mg 01/05/25 09:00 01/05/25 08:26 Furosemide 40 Mg Tablet PO 40 mg DAILY [facility] Administration Sodium Chloride 1,000 mls @ 75 mls/hr 01/04/25 21:35 01/05/25 12:10 Normal Saline Iv IV CONT 75 mls/hr .[id number] [facility] Administration Levetiracetam 750 mg 01/05/25 00:35 01/05/25 08:25 Levetiracetam 250 Mg Tablet PO 750 mg Q12HR [facility] Administration Memantine 10 mg 01/05/25 09:00 01/05/25 08:26 Memantine 10 Mg Tablet PO 10 mg Q12HR [facility] Administration Metoprolol Tartrate 150 mg 01/05/25 09:00 01/05/25 08:24 Metoprolol Tartrate 50 Mg Tab PO 150 mg Q12HR [facility] Administration Miscellaneous Information 0 each 01/05/25 01:00 Risankizumab-Rzaa [Skyrizi] 360 Mg/2.4 Ml (150 Mg/Ml) Wearable Injector- Nonformulary. Hol XX 02/04/25 00:59 CLARIFY [facility] Coenzyme Q10 [Co Q- 0 each 01/05/25 09:00 01/05/25 08:43 10] 200 Mg Capsule XX 01/06/25 08:59 Not Given DAILY [facility] Non-Formulary Medication 360 mg 01/05/25 00:30 Risankizumab-Rzaa [Skyrizi] SUB-Q 02/04/25 00:29 .Every 8 weeks [facility] Tamsulosin HCl 0.4 mg 01/05/25 00:35 01/05/25 01:18 Tamsulosin Hcl 0.4 Mg Capsule PO 0.4 mg HS [facility] Administration Radiology Results: ITS Impressions Chest X-Ray 01/04/25 18:34 IMPRESSION: Bibasilar atelectasis versus pneumonia. Cardiomegaly. Abdomen/Pelvis CT 01/04/25 19:03 IMPRESSION: 1. No evidence of appendicitis, colitis or intestinal obstruction. 2. Right basilar atelectasis versus pneumonia with pleural effusion. Left basilar atelectasis versus pneumonia. 3. Nodule in the right lower lobe measuring 6 mm which was not seen in the previous study. 3 months follow-up advised. 4. Thickened wall of the urinary bladder. Evaluation for cystitis advised. 5. Multiple hypodensities in the bones of the pelvis which may indicate metastatic lesions. Clinical correlation advised Labs Labs: Laboratory Results - last 24 hr 01/04/25 01/04/25 01/05/25 18:17 20:41 04:57 WBC 8.6 7.8 RBC 3.37 L 2.96 L Hgb 10.3 L 9.3 L Hct 33.4 L 30.0 L MCV 99.1 101.4 H MCH 30.6 31.4 MCHC 30.8 L 31.0 L RDW 14.3 14.2 Plt Count 185 161 MPV 9.5 9.7 Immature Gran % (Auto) 0.2 Neut % (Auto) 82.0 H Lymph % (Auto) 5.9 L [place] % (Auto) 10.0 H Eos % (Auto) 1.6 Baso % (Auto) 0.3 Lymph # (Auto) 0.51 L [place] # (Auto) 0.9 H Eos # (Auto) 0.1 Baso # (Auto) 0.0 Abs Immat Gran (auto) 0.02 Absolute Neuts (auto) 7.1 H Absolute Nucleated RBC 0.000 Nucleated RBC % 0.0 PT 15.7 H INR 1.2 APTT 31.2 Sodium 140 139 Potassium 3.6 3.6 Chloride 102 106 Carbon Dioxide 29 26 Anion Gap 9 7 BUN 22 H 19 Creatinine 2.13 H 1.82 H Estim Creat Clear Calc 24 26 Estimated GFR 30 L 36 L Glucose 103 89 Lactic Acid 1.1 Calcium 8.2 L 8.3 L Total Bilirubin 0.4 0.5 AST 46 39 ALT 56 H 44 Alkaline Phosphatase 107 96 Troponin I < 0.012 C-Reactive Protein 1.3 H Total Protein 8.0 7.0 Albumin 4.0 3.2 L Urine Color Yellow Urine Appearance Clear Urine pH 5.5 Ur Specific [place] 1.012 Urine Protein Trace Urine Glucose (UA) Negative Urine Ketones Negative Ur Blood (Man) Trace Urine Nitrate Negative Urine Bilirubin Negative Urine Urobilinogen 0.2 Leukocyte Esterase Rfl Negative Urine RBC 0-2 Urine WBC 0-5 Ur Squamous Epith Cells None seen Urine Bacteria None seen Urine Casts 3-5 Influenza A (RT-PCR) Negative Influenza B (RT-PCR) Negative RSV (RT-PCR) Negative SARS-CoV-2 RNA (RT-PCR) Negative
--- NOTE | 2025-01-05 15:05 | PC.NURSE ---
On 01/05/25, the student, [Donna Walker ], provided care and completed [facility] documentation on this patient. I have reviewed the student's documentation and agree with the findings.
[2025-01-05] MEDS: ATORVASTATIN 10 MG TABLET PO (17:11)
[2025-01-05] MEDS: allopurinoL 100 MG TABLET PO (20:19)
[2025-01-05] MEDS: LOPERAMIDE HCL 2 MG CAPSULE PO (20:19)
[2025-01-06] VITALS (15 sets, daily range): BP systolic 105–143; BP diastolic 59–77; PULSE 75–102; RESP 14–18; TEMP 36.6–38; O2SAT 94–96
[2025-01-06] MEDS: SODIUM CHLORIDE 0.9% IV 1,000 ML 75 ML IV CONT ×2 (01:18→14:53)
[2025-01-06] MEDS: cilostazoL 100 MG TABLET PO (06:42)
--- NOTE | 2025-01-06 08:02 | P.PNIM_ITS ---
Progress Note: A&P Assessment and Plan (1) Atrial fibrillation: Code(s): I48.91 - Unspecified atrial fibrillation Status: Chronic (2) Cardiomyopathy: Code(s): I42.9 - Cardiomyopathy, unspecified Status: Chronic (3) Dementia of the Alzheimer's type: Code(s): G30.9 - Alzheimer's disease, unspecified; F02.80 - Dementia in other diseases c lassified elsewhere, unspecified severity, without behavioral disturbance, psychotic disturbance, mood disturbance, and anxiety Status: Acute Plan A 79-year-old male with a past medical history of Crohn's disease, dementia, AFib, chronic urinary retention with the need for straight cath, CHF, CKD, and cardiomyopathy presented to the emergency department due to fever, chills, and cough for about a week. Community-acquired pneumonia Vital signs improved and stable RSV COVID flu negative Started on Amox clav and azithromycin monitor cultures: blood culture no growth, stool culture pending encourage oral intake Patient had T: 99, blood cultures no growth so far CKD monitor closely during diuresis Avoid nephrotoxic drugs. Monitor antihypertensive drug therapy. Avoid NSAIDs. Routine CMP monitoring GFR. Monitor electrolytes especially potassium. Antibiotic doses depending on creatinine clearance. Pharmacy does medications. Cr stable 2.3 appears at baseline Routine follow-up with Nephrology as an outpatient. Cr is trending down A.Fib Chronic Pending TSH Past medical history of CHF Continue metoprolol 75 mg p.o. q.d. Not on anticoagulant Reviewed echo ejection fraction 40-45 % Crohn's Continue Skyrizi Chronic Order stool studies including culture and WBC Dementia Continue home medication CHF Reviewed echo ejection fraction 40-45 % Continue home medication once medical reconciliation is complete Continue metoprolol succinate 75 mg p.o. q.d., furosemide 40 mg p.o. q.d. Monitor I and O's DVT prophylaxis Lovenox 40 mg subcutaneous may discharge pt in 2 days. Subjective Date/time seen: 01/06/25 08:02 Interval history: Patient has a temperature 90? in the morning, Patient feels better Patient feels tired, has cough with scant phlegm Blood culture has no growth so far. Exam Narrative: GENERAL: Pleasant, in no acute distress. Well-nourished. - EYES: EOMI. Anicteric. - HENT: Moist mucous membranes. - LUNGS: Coarse breath sound bilaterall y - CARDIOVASCULAR: Regular rate and rhyth m. No murmur. No JVD. - ABDOMEN: Soft, non-tender and non-dist ended. No palpable masses. - EXTREMITIES: No edema. Peripheral puls es 2+. Non-tender. - NEUROLOGIC: No focal neurological defi cits. CN II-XII grossly intact. - PSYCHIATRIC: Awake, Alert and oriented x 3. Appropriate mood and affect. - SKIN: No rashes or lesions. Warm. - LYMPH: No cervical lymphadenopathy. Objective Data Vital Signs Vital Signs: Vital Signs - 24 hr 01/05/25 08:24 01/05/25 12:00 01/05/25 14:00 Temperature 98.9 F Pulse Rate 121 H 84 74 Respiratory Rate 16 Blood Pressure 122/42 L Pulse Oximetry 97 Oxygen Delivery 01/05/25 16:00 01/05/25 20:00 01/05/25 20:00 Temperature Pulse Rate 96 90 Respiratory Rate Blood Pressure Pulse Oximetry Oxygen Delivery Room Air 01/05/25 20:12 01/05/25 20:19 01/06/25 00:00 Temperature 99.4 F Pulse Rate 88 88 88 Respiratory Rate 18 Blood Pressure 134/75 Pulse Oximetry 100 Oxygen Delivery 01/06/25 04:00 01/06/25 05:17 Temperature 99.0 F Pulse Rate 88 89 Respiratory Rate 17 Blood Pressure 105/59 L Pulse Oximetry 95 Oxygen Delivery Intake/Output Intake/Output: Intake & Output 01/03/25 01/04/25 01/05/25 01/06/25 23:59 23:59 23:59 23:59 Intake Total 1550 2403.8 1535 Output Total 150 2100 800 Balance 1400 303.8 735 Meds/Results Medications: Active Medications Generic Name Dose Route Start Last Admin Trade Name Freq PRN Reason Stop Dose Admin Allopurinol 100 mg 01/05/25 21:00 01/05/25 20:19 Allopurinol 100 Mg Tablet PO 100 mg HS SUZAN Administration Aspirin 81 mg 01/05/25 09:00 01/05/25 08:25 Aspirin 81 Mg Enteric Tablet PO 81 mg QAM SUZAN Administration Atorvastatin Calcium 10 mg 01/05/25 18:00 01/05/25 17:11 Atorvastatin 10 Mg Tablet PO 10 mg QPM SUZAN Administration Cilostazol 100 mg 01/05/25 07:30 01/06/25 06:42 Cilostazol 100 Mg Tablet PO 100 mg DAILY@0730 SUZAN Administration Cyanocobalamin 1,000 mcg 01/31/25 09:00 Cyanocobalamin Inj 1,000 Mcg/Ml Vial IM MONTHLY SUZAN Donepezil HCl 10 mg 01/05/25 09:00 01/05/25 08:25 Donepezil Hcl 10 Mg Tablet PO 10 mg DAILY SUZAN Administration Enoxaparin Sodium 30 mg 01/05/25 09:00 01/05/25 08:26 Enoxaparin 30 Mg/0.3 Ml Syringe SUB-Q 30 mg DAILY SUZAN Administration Escitalopram Oxalate 20 mg 01/05/25 00:35 01/05/25 20:19 Escitalopram Oxalate 10 Mg Tablet PO 20 mg HS SUZAN Administration Ferrous Sulfate 325 mg 01/05/25 08:00 01/05/25 08:26 Ferrous Sulfate [address] BY MOUTH 325 mg DAILY@0800 SUZAN Administration Fluticasone Propionate 1 spray 01/05/25 09:00 01/05/25 20:22 Fluticasone Propionate 0.05% Na Spr 16 Gm Btl (*Bkc) NASAL 1 spray Q12HR SUZAN Administration Furosemide 40 mg 01/05/25 09:00 01/05/25 08:26 Furosemide 40 Mg Tablet PO 40 mg DAILY SUZAN Administration Sodium Chloride 1,000 mls @ 75 mls/hr 01/04/25 21:35 01/06/25 01:18 Normal Saline Iv IV CONT 75 mls/hr .[id number] SUZAN Administration Levetiracetam 750 mg 01/05/25 00:35 01/05/25 20:19 Levetiracetam 250 Mg Tablet PO 750 mg Q12HR SUZAN Administration Loperamide HCl 2 mg 01/05/25 19:58 01/05/25 20:19 Loperamide Hcl 2 Mg Capsule PO 2 mg PRN PRN Administration Diarrhea Memantine 10 mg 01/05/25 09:00 01/05/25 20:19 Memantine 10 Mg Tablet PO 10 mg Q12HR SUZAN Administration Metoprolol Tartrate 150 mg 01/05/25 09:00 01/05/25 20:19 Metoprolol Tartrate 50 Mg Tab PO 150 mg Q12HR SUZAN Administration Miscellaneous Information 0 each 01/05/25 01:00 Risankizumab-Rzaa [Skyrizi] 360 Mg/2.4 Ml (150 Mg/Ml) Wearable Injector- Nonformulary. Hol XX 02/04/25 00:59 CLARIFY SUZAN Coenzyme Q10 [Co Q- 0 each 01/05/25 09:00 01/05/25 08:43 10] 200 Mg Capsule XX 01/06/25 08:59 Not Given DAILY SUZAN Non-Formulary Medication 360 mg 01/05/25 00:30 Risankizumab-Rzaa [Skyrizi] SUB-Q 02/04/25 00:29 .Every 8 weeks [facility] Tamsulosin HCl 0.4 mg 01/05/25 00:35 01/05/25 20:19 Tamsulosin Hcl 0.4 Mg Capsule PO 0.4 mg HS [facility] Administration Radiology Results: ITS Impressions Chest X-Ray 01/04/25 18:34 IMPRESSION: Bibasilar atelectasis versus pneumonia. Cardiomegaly. Abdomen/Pelvis CT 01/04/25 19:03 IMPRESSION: 1. No evidence of appendicitis, colitis or intestinal obstruction. 2. Right basilar atelectasis versus pneumonia with pleural effusion. Left basilar atelectasis versus pneumonia. 3. Nodule in the right lower lobe measuring 6 mm which was not seen in the previous study. 3 months follow-up advised. 4. Thickened wall of the urinary bladder. Evaluation for cystitis advised. 5. Multiple hypodensities in the bones of the pelvis which may indicate metastatic lesions. Clinical correlation advised
[2025-01-06] MEDS: levETIRAcetam 250 MG TABLET 750 MG PO ×2 (08:29→21:01)
[2025-01-06] MEDS: FUROSEMIDE 40 MG TABLET PO (08:30)
[2025-01-06] MEDS: ASPIRIN 81 MG ENTERIC TABLET PO (08:30)
[2025-01-06] MEDS: FLUTICASONE PROPIONATE 0.05% NA SPR 16 GM BTL (*BKC) 1 SPRAY NASAL ×2 (08:30→21:02)
[2025-01-06] MEDS: DONEPEZIL HCL 10 MG TABLET PO (08:30)
[2025-01-06] MEDS: MEMANTINE 10 MG TABLET PO ×2 (08:30→21:01)
[2025-01-06] MEDS: FERROUS SULFATE 325 MG TABLET DR BY MOUTH (08:30)
[2025-01-06] MEDS: METOPROLOL TARTRATE 50 MG TAB 150 MG PO ×2 (08:30→21:01)
[2025-01-06] MEDS: ENOXAPARIN 30 MG/0.3 ML SYRINGE SUB-Q (08:31)
[2025-01-06 08:36] LABS: Anion Gap 6 mmol/L (4-12); Blood Urea Nitrogen 19 mg/dL (9-20); Calcium 8.2 mg/dL (8.4-10.2); Carbon Dioxide 24 mmol/L (22-30); Chloride 107 mmol/L (98-107); Estimated CRCL calculation 26 ml/min; Estimated Glomerular Filt Rate 35; Glucose 83 mg/dL (65-110); Potassium 3.6 mmol/L (3.4-5.0); Sodium 137 mmol/L (137-145)
[2025-01-06 08:41] LABS: Basophils Percent Auto 0.5 % (0.2-1.2); Eosinophils Absolute Auto 0.2 K/mm3 (0-0.3); Eosinophils Percent Auto 1.7 % (0-4.4); Hematocrit 28.4 % (42.0-52.0); Immature Granulocyte Absolute 0.03 K/mm3 (0.00-0.031); Immature Granulocyte Percent A 0.3 % (0-0.5); Lymphocytes Absolute Auto 0.86 K/mm3 (0.9-3.2); Lymphocytes Percent Auto 9.9 % (18.3-44.2); Mean Corpuscular HGB Conc 31.7 g/dl (32-36); Mean Corpuscular Hemoglobin 31.3 pg (26-34); Mean Corpuscular Volume 98.6 fl (80-100); Mean Platelet Volume 9.7 fl (7.4-10.4); Monocytes Absolute Auto 0.9 K/mm3 (0.1-0.6); Monocytes Percent Auto 10.7 % (2.6-8.5); Neutrophils Absolute Auto 6.7 K/mm3 (1.3-6.7); Neutrophils Percent Auto 76.9 % (45.5-73.1); Platelet Count Result 152 k/mm3 (150-375); Red Blood Count 2.88 M/mm3 (4.6-6.20); Red Cell Distribution Width 14.1 % (11.5-14.5); White Blood Count 8.7 K/mm3 (4.5-10.0)
[2025-01-06] MEDS: LOPERAMIDE HCL 2 MG CAPSULE PO ×2 (11:51→17:19)
[2025-01-06] MEDS: ATORVASTATIN 10 MG TABLET PO (17:19)
[2025-01-06] MEDS: ACETAMINOPHEN 325 MG TABLET 650 MG PO (21:00)
[2025-01-06] MEDS: TAMSULOSIN HCL 0.4 MG CAPSULE PO (21:01)
[2025-01-06] MEDS: allopurinoL 100 MG TABLET PO (21:01)
[2025-01-06] MEDS: ESCITALOPRAM OXALATE 10 MG TABLET 20 MG PO (21:02)
[2025-01-07] VITALS (11 sets, daily range): BP systolic 127–135; BP diastolic 60–80; PULSE 82–113; RESP 14–20; TEMP 36.8–37.4; O2SAT 91–95
[2025-01-07] MEDS: SODIUM CHLORIDE 0.9% IV 1,000 ML 75 ML IV CONT (04:18)
[2025-01-07 05:46] LABS: Basophils Percent Auto 0.6 % (0.2-1.2); Eosinophils Absolute Auto 0.2 K/mm3 (0-0.3); Eosinophils Percent Auto 2.4 % (0-4.4); Hematocrit 31.7 % (42.0-52.0); Hemoglobin 9.8 g/dL (14.0-18.0); Immature Granulocyte Absolute 0.02 K/mm3 (0.00-0.031); Immature Granulocyte Percent A 0.3 % (0-0.5); Lymphocytes Absolute Auto 0.52 K/mm3 (0.9-3.2); Lymphocytes Percent Auto 7.9 % (18.3-44.2); Mean Corpuscular HGB Conc 30.9 g/dl (32-36); Mean Corpuscular Hemoglobin 31.4 pg (26-34); Mean Corpuscular Volume 101.6 fl (80-100); Mean Platelet Volume 9.3 fl (7.4-10.4); Monocytes Absolute Auto 0.7 K/mm3 (0.1-0.6); Monocytes Percent Auto 10.4 % (2.6-8.5); Neutrophils Absolute Auto 5.2 K/mm3 (1.3-6.7); Neutrophils Percent Auto 78.4 % (45.5-73.1); Platelet Count Result 149 k/mm3 (150-375); Red Blood Count 3.12 M/mm3 (4.6-6.20); Red Cell Distribution Width 14.1 % (11.5-14.5); White Blood Count 6.6 K/mm3 (4.5-10.0)
[2025-01-07 05:59] LABS: Anion Gap 9 mmol/L (4-12); Blood Urea Nitrogen 17 mg/dL (9-20); Calcium 8.2 mg/dL (8.4-10.2); Carbon Dioxide 23 mmol/L (22-30); Chloride 107 mmol/L (98-107); Estimated CRCL calculation 25 ml/min; Estimated Glomerular Filt Rate 33; Glucose 84 mg/dL (65-110); Potassium 3.6 mmol/L (3.4-5.0); Sodium 139 mmol/L (137-145)
[2025-01-07] MEDS: cilostazoL 100 MG TABLET PO (06:37)
[2025-01-07] MEDS: ASPIRIN 81 MG ENTERIC TABLET PO (08:38)
[2025-01-07] MEDS: MEMANTINE 10 MG TABLET PO ×2 (08:38→20:47)
[2025-01-07] MEDS: FERROUS SULFATE 325 MG TABLET DR BY MOUTH (08:38)
[2025-01-07] MEDS: METOPROLOL TARTRATE 50 MG TAB 150 MG PO ×2 (08:38→20:46)
[2025-01-07] MEDS: FUROSEMIDE 40 MG TABLET PO (08:38)
[2025-01-07] MEDS: LOPERAMIDE HCL 2 MG CAPSULE PO (08:38)
[2025-01-07] MEDS: levETIRAcetam 250 MG TABLET 750 MG PO ×2 (08:39→20:47)
[2025-01-07] MEDS: FLUTICASONE PROPIONATE 0.05% NA SPR 16 GM BTL (*BKC) 1 SPRAY NASAL ×2 (08:39→20:47)
[2025-01-07] MEDS: DONEPEZIL HCL 10 MG TABLET PO (08:39)
[2025-01-07] MEDS: ENOXAPARIN 30 MG/0.3 ML SYRINGE SUB-Q (08:39)
--- NOTE | 2025-01-07 13:42 | PM.IMPN ---
Progress Note: A&P Assessment and Plan (1) Atrial fibrillation: Code(s): I48.91 - Unspecified atrial fibrillation Status: Chronic (2) Cardiomyopathy: Code(s): I42.9 - Cardiomyopathy, unspecified Status: Chronic (3) Dementia of the Alzheimer's type: Code(s): G30.9 - Alzheimer's disease, unspecified; F02.80 - Dementia in other diseases classified elsewhere, unspecified severity, without behavioral disturbance, psychotic disturbance, mood disturbance, and anxiety Status: Acute Plan A 79-year-old male with a past medical history of Crohn's disease, dementia, AFib, chronic urinary retention with the need for straight cath, CHF, CKD, and cardiomyopathy presented to the emergency department due to fever, chills, and cough for about a week. # Community-acquired pneumonia Vital signs improved and stable RSV COVID flu negative Started on Amox clav and azithromycin monitor cultures: blood culture no growth, stool culture pending encourage oral intake Patient had another spike 01/06 repeat chest x-ray and urine # CKD monitor closely during diuresis Avoid nephrotoxic drugs. Monitor antihypertensive drug therapy. Avoid NSAIDs. Routine CMP monitoring GFR. Monitor electrolytes especially potassium. Antibiotic doses depending on creatinine clearance. Pharmacy does medications. Cr stable 2.3 appears at baseline Routine follow-up with Nephrology as an outpatient. Cr is trending down # A.Fib Chronic Pending TSH Past medical history of CHF Continue metoprolol 75 mg p.o. q.d. Not on anticoagulant Reviewed echo ejection fraction 40-45 % # Crohn's Continue Skyrizi Chronic Order stool studies including culture and WBC # Dementia Continue home medication # CHF Reviewed echo ejection fraction 40-45 % Continue home medication once medical reconciliation is complete Continue metoprolol succinate 75 mg p.o. q.d., furosemide 40 mg p.o. q.d. Monitor I and O's # DVT prophylaxis Lovenox 40 mg subcutaneous # Seizure disorder B12 deficiency BPH Cardiomyopathy Chronic anemia baseline hemoglobin between 9-10 CKD stage 3 baseline creatinine low 2s currently baseline continue to monitor Coronary artery disease history of CABG Crohn's disease history of partial colectomy Gout Hypertension Hyperlipidemia Intermittent self catheterization of bladder Peripheral vascular disease bilateral lower extremity stents Osteoarthritis Subjective Date/time seen: 01/07/25 13:42 Interval history: Febrile Last night. Reports some cough. No other complaints. Review of Systems Review of Systems: All systems reviewed & are unremarkable except as noted in HPI and below Exam Narrative: GENERAL: Pleasant, in no acute distress. Well-nourished. - EYES: EOMI. Anicteric. - HENT: Moist mucous membranes. - LUNGS: Coarse breath sound bilaterally - CARDIOVASCULAR: Regular rate and rhythm. No murmur. No JVD. - ABDOMEN: Soft, non-tender and non-distended. No palpable masses. - EXTREMITIES: No edema. Peripheral pulses 2+. Non-tender. - NEUROLOGIC: No focal neurological deficits. CN II-XII grossly intact. - PSYCHIATRIC: Awake, Alert and oriented x 3. Appropriate mood and affect. - SKIN: No rashes or lesions. Warm. - LYMPH: No cervical lymphadenopathy. Objective Data Vital Signs Vital Signs: Vital Signs - 24 hr 01/06/25 14:00 01/06/25 16:00 01/06/25 19:48 Temperature 97.8 F 100.4 F H Pulse Rate 93 81 102 H Respiratory Rate 14 18 Blood Pressure 118/75 143/77 H Pulse Oximetry 94 96 Oxygen Delivery 01/06/25 20:00 01/06/25 20:55 01/06/25 21:00 Temperature 100.4 F H Pulse Rate 97 Respiratory Rate Blood Pressure Pulse Oximetry Oxygen Delivery Room Air 01/06/25 21:01 01/06/25 22:00 01/06/25 22:02 Temperature 100.3 F H 100.3 F H Pulse Rate 102 H Respiratory Rate Blood Pressure Pulse Oximetry Oxygen Delivery 01/06/25 23:05 01/07/25 00:00 01/07/25 04:00 Temperature 98.6 F Pulse Rate 87 87 Respiratory Rate Blood Pressure Pulse Oximetry Oxygen Delivery 01/07/25 05:26 01/07/25 08:38 Temperature 98.2 F Pulse Rate 113 H 100 Respiratory Rate 17 Blood Pressure 135/79 Pulse Oximetry 91 Oxygen Delivery Intake/Output Intake/Output: Intake & Output 01/04/25 01/05/25 01/06/25 01/07/25 23:59 23:59 23:59 23:59 Intake Total 1550 2403.8 4355 1440 Output Total 150 2100 3910 450 Balance 1400 303.8 445 990 Meds/Results Medications: Active Medications Generic Name Dose Route Start Last Admin Trade Name Freq PRN Reason Stop Dose Admin Acetaminophen 650 mg 01/06/25 20:28 01/06/25 21:00 Acetaminophen 325 Mg Tablet PO 650 mg Q6H PRN Administration Mild Pain (1-3) or Fever Allopurinol 100 mg 01/05/25 21:00 01/06/25 21:01 Allopurinol 100 Mg Tablet PO 100 mg HS SUZAN Administration Aspirin 81 mg 01/05/25 09:00 01/07/25 08:38 Aspirin 81 Mg Enteric Tablet PO 81 mg QAM SUZAN Administration Atorvastatin Calcium 10 mg 01/05/25 18:00 01/06/25 17:19 Atorvastatin 10 Mg Tablet PO 10 mg QPM SUZAN Administration Cilostazol 100 mg 01/05/25 07:30 01/07/25 06:37 Cilostazol 100 Mg Tablet PO 100 mg DAILY@0730 [facility] Administration Cyanocobalamin 1,000 mcg 01/31/25 09:00 Cyanocobalamin Inj 1,000 Mcg/Ml Vial IM MONTHLY SUZAN Donepezil HCl 10 mg 01/05/25 09:00 01/07/25 08:39 Donepezil Hcl 10 Mg Tablet PO 10 mg DAILY SUZAN Administration Enoxaparin Sodium 30 mg 01/05/25 09:00 01/07/25 08:39 Enoxaparin 30 Mg/0.3 Ml Syringe SUB-Q 30 mg DAILY SUZAN Administration Escitalopram Oxalate 20 mg 01/05/25 00:35 01/06/25 21:02 Escitalopram Oxalate 10 Mg Tablet PO 20 mg HS SUZAN Administration Ferrous Sulfate 325 mg 01/05/25 08:00 01/07/25 08:38 Ferrous Sulfate [address] BY MOUTH 325 mg DAILY@0800 SUZAN Administration Fluticasone Propionate 1 spray 01/05/25 09:00 01/07/25 08:39 Fluticasone Propionate 0.05% Na Spr 16 Gm Btl (*Bkc) NASAL 1 spray Q12HR SUZAN Administration Furosemide 40 mg 01/05/25 09:00 01/07/25 08:38 Furosemide 40 Mg Tablet PO 40 mg DAILY SUZAN Administration Sodium Chloride 1,000 mls @ 75 mls/hr 01/04/25 21:35 01/07/25 04:18 Normal Saline Iv IV CONT 75 mls/hr .[id number] SUZAN Administration Levetiracetam 750 mg 01/05/25 00:35 01/07/25 08:39 Levetiracetam 250 Mg Tablet PO 750 mg Q12HR SUZAN Administration Loperamide HCl 2 mg 01/05/25 19:58 01/07/25 08:38 Loperamide Hcl 2 Mg Capsule PO 2 mg PRN PRN Administration Diarrhea Memantine 10 mg 01/05/25 09:00 01/07/25 08:38 Memantine 10 Mg Tablet PO 10 mg Q12HR SUZAN Administration Metoprolol Tartrate 150 mg 01/05/25 09:00 01/07/25 08:38 Metoprolol Tartrate 50 Mg Tab PO 150 mg Q12HR SUZAN Administration Miscellaneous Information 0 each 01/05/25 01:00 01/07/25 07:58 Risankizumab-Rzaa [Skyrizi] 360 Mg/2.4 Ml (150 Mg/Ml) Wearable Injector- Nonformulary. Hol XX 02/04/25 00:59 Not Given CLARIFY SUZAN Non-Formulary Medication 360 mg 01/05/25 00:30 Risankizumab-Rzaa [Skyrizi] SUB-Q 02/04/25 00:29 .Every 8 weeks [facility] Tamsulosin HCl 0.4 mg 01/05/25 00:35 01/06/25 21:01 Tamsulosin Hcl 0.4 Mg Capsule PO 0.4 mg HS SUZAN Administration Radiology Results: ITS Impressions Chest X-Ray 01/04/25 18:34 IMPRESSION: Bibasilar atelectasis versus pneumonia. Cardiomegaly. Abdomen/Pelvis CT 01/04/25 19:03 IMPRESSION: 1. No evidence of appendicitis, colitis or intestinal obstruction. 2. Right basilar atelectasis versus pneumonia with pleural effusion. Left basilar atelectasis versus pneumonia. 3. Nodule in the right lower lobe measuring 6 mm which was not seen in the previous study. 3 months follow-up advised. 4. Thickened wall of the urinary bladder. Evaluation for cystitis advised. 5. Multiple hypodensities in the bones of the pelvis which may indicate metastatic lesions. Clinical correlation advised Labs Labs: Laboratory Results - last 24 hr 01/07/25 05:36 WBC 6.6 RBC 3.12 L Hgb 9.8 L Hct 31.7 L MCV 101.6 H MCH 31.4 MCHC 30.9 L RDW 14.1 Plt Count 149 L MPV 9.3 Immature Gran % (Auto) 0.3 Neut % (Auto) 78.4 H Lymph % (Auto) 7.9 L Kern % (Auto) 10.4 H Eos % (Auto) 2.4 Baso % (Auto) 0.6 Lymph # (Auto) 0.52 L Kern # (Auto) 0.7 H Eos # (Auto) 0.2 Baso # (Auto) 0.0 Abs Immat Gran (auto) 0.02 Absolute Neuts (auto) 5.2 Absolute Nucleated RBC 0.000 Nucleated RBC % 0.0 Sodium 139 Potassium 3.6 Chloride 107 Carbon Dioxide 23 Anion Gap 9 BUN 17 Creatinine 1.95 H Estim Creat Clear Calc 25 Estimated GFR 33 L Glucose 84 Calcium 8.2 L
[2025-01-07 17:14] LABS: Add Urine Microscopic? YES; Appearance Urine Clear (Clear); Bacteria Urine None Seen /hpf; Bilirubin Urine Negative (Negative); Blood Urine 1+ (Negative); Color Urine Yellow (Yellow); Glucose Urine UA Negative (Negative); Ketones Urine Negative (Negative); Leukocyte Esterase Ur Negative LEU/UL (Negative); Nitrate Urine Negative (Negative); Non Pathogenic Casts 0-2; Protein Urine Negative (Negative); Specific Grav Ur 1.008 (1.001-1.035); Squamous Epithelial Cell Urine None Seen /hpf (Few); Urobilinogen Urine 0.2 mg/dL (<2.0); WBC Urine 0-5 /hpf (0-3); pH Urine 5.5 (5.0-9.0)
[2025-01-07] MEDS: ATORVASTATIN 10 MG TABLET PO (17:14)
[2025-01-07] MEDS: ESCITALOPRAM OXALATE 10 MG TABLET 20 MG PO (20:46)
[2025-01-07] MEDS: TAMSULOSIN HCL 0.4 MG CAPSULE PO (20:47)
[2025-01-07] MEDS: allopurinoL 100 MG TABLET PO (20:47)
[2025-01-08] VITALS (11 sets, daily range): BP systolic 108–130; BP diastolic 62–73; PULSE 78–100; RESP 16–20; TEMP 36.3–36.7; O2SAT 97–99
[2025-01-08 05:13] LABS: Basophils Percent Auto 0.5 % (0.2-1.2); Eosinophils Absolute Auto 0.2 K/mm3 (0-0.3); Eosinophils Percent Auto 3.1 % (0-4.4); Hematocrit 28.1 % (42.0-52.0); Hemoglobin 8.7 g/dL (14.0-18.0); Immature Granulocyte Absolute 0.02 K/mm3 (0.00-0.031); Immature Granulocyte Percent A 0.3 % (0-0.5); Lymphocytes Absolute Auto 0.86 K/mm3 (0.9-3.2); Lymphocytes Percent Auto 14.9 % (18.3-44.2); Mean Platelet Volume 9.7 fl (7.4-10.4); Monocytes Absolute Auto 0.8 K/mm3 (0.1-0.6); Monocytes Percent Auto 13.2 % (2.6-8.5); Neutrophils Absolute Auto 3.9 K/mm3 (1.3-6.7); Platelet Count Result 163 k/mm3 (150-375); Red Blood Count 2.81 M/mm3 (4.6-6.20); Red Cell Distribution Width 13.8 % (11.5-14.5); White Blood Count 5.8 K/mm3 (4.5-10.0)
[2025-01-08 05:25] LABS: Alanine Aminotransferase 38 U/L (6-50); Albumin Level 3.2 g/dL (3.5-5.1); Alkaline Phosphatase 108 U/L (38-126); Anion Gap 7 mmol/L (4-12); Aspartate Amino Transferase 35 U/L (17-59); Bilirubin,Total 0.4 mg/dL (0.2-1.3); Blood Urea Nitrogen 17 mg/dL (9-20); Calcium 8.2 mg/dL (8.4-10.2); Carbon Dioxide 25 mmol/L (22-30); Chloride 106 mmol/L (98-107); Estimated CRCL calculation 25 ml/min; Estimated Glomerular Filt Rate 33; Glucose 85 mg/dL (65-110); Magnesium 1.7 mg/dL (1.6-2.3); Potassium 3.4 mmol/L (3.4-5.0); Sodium 138 mmol/L (137-145)
[2025-01-08] MEDS: cilostazoL 100 MG TABLET PO (06:35)
[2025-01-08] MEDS: FUROSEMIDE 40 MG TABLET PO (08:27)
[2025-01-08] MEDS: levETIRAcetam 250 MG TABLET 750 MG PO ×2 (08:27→21:04)
[2025-01-08] MEDS: ASPIRIN 81 MG ENTERIC TABLET PO (08:27)
[2025-01-08] MEDS: METOPROLOL TARTRATE 50 MG TAB 150 MG PO ×2 (08:27→21:04)
[2025-01-08] MEDS: MEMANTINE 10 MG TABLET PO ×2 (08:27→21:04)
[2025-01-08] MEDS: DONEPEZIL HCL 10 MG TABLET PO (08:27)
[2025-01-08] MEDS: FERROUS SULFATE 325 MG TABLET DR BY MOUTH (08:27)
[2025-01-08] MEDS: FLUTICASONE PROPIONATE 0.05% NA SPR 16 GM BTL (*BKC) 1 SPRAY NASAL ×2 (08:31→21:03)
[2025-01-08] MEDS: ENOXAPARIN 30 MG/0.3 ML SYRINGE SUB-Q (08:31)
--- NOTE | 2025-01-08 13:32 | PCSTNOTE ---
Please refer to the Bedside Swallow Evaluation in the EMR. Please note, silent aspiration cannot be ruled out at bedside. This pleasant 79 year old male patient was seen at bedside to complete a bedside swallow evaluation (BSE) to assess the safety of his swallowing. During dinner last night, the pt choked while eating soup. The pts RN today, Kade, stated that he has not witnessed the pt have trouble with oral intake. The pt did well taking his morning medication whole with thin liquids. The pts stated that he has had occasional trouble with swallowing in the past. The pt has a PMH of dementia and has community acquired pneumonia. An oral mechanism exam was completed showing that the pts oral mechanism has the appropriate strength, range of motion, and mobility for oral intake. The pt is edentulous on the upper region of his mouth and is missing some teeth on the bottom. The pt has been eating softer foods at [facility] due to lack of dentition. Trials of thin liquid via straw, pudding and fruit cocktail via spoon, and kwasi cracker via hand were trialed this date. Throughout all trials of different consistencies, the pt demonstrated no s/s of aspiration. The pt?s vocal quality remained clear after all trials and the pt did not cough/throat clear. Oral transit was timely. No oral residue observed. Laryngeal elevation was adequate and timely for all swallows. Please note that silent aspiration cannot be ruled out at bedside. Given the results of this assessment, it is recommended this pt receive a Soft and Bite-Sized (IDDSI Level 6) diet with thin liquids (IDDSI Level 1) due to lack of dentition. It is additionally recommended that the pt follow these standard swallowing precautions: Sit upright with head neutral, small bites/sips, slow down the pace of oral intake, and alternate solids/liquids. No further ST is warranted at this time. Thank you for this referral. Dr. Ibarra, and Kade, TEDDY were notified of BSE results and recommendations. Thank you for this referral.
--- NOTE | 2025-01-08 15:04 | P.PNIM_ITS ---
Progress Note: A&P Assessment and Plan (1) Atrial fibrillation: Code(s): I48.91 - Unspecified atrial fibrillation Status: Chronic (2) Cardiomyopathy: Code(s): I42.9 - Cardiomyopathy, unspecified Status: Chronic (3) Dementia of the Alzheimer's type: Code(s): G30.9 - Alzheimer's disease, unspecified; F02.80 - Dementia in other diseases c lassified elsewhere, unspecified severity, without behavioral disturbance, psychotic disturbance, mood disturbance, and anxiety Status: Acute Plan A 79-year-old male with a past medical history of Crohn's disease, dementia, AFib, chronic urinary retention with the need for straight cath, CHF, CKD, and cardiomyopathy presented to the emergency department due to fever, chills, and cough for about a week. # Community-acquired pneumonia Vital signs improved and stable RSV COVID flu negative Started on Amox clav and azithromycin monitor cultures: blood culture no growth, stool culture pending encourage oral intake Patient had another spike 01/06 repeat chest x-ray with mild pulmonary vascular congestion with the increased right pleural effusion. IV fluids stopped. Continue oral Lasix as ordered. Repeat urinalysis negative for infection Choking episode. Speech to see # CKD monitor closely during diuresis Avoid nephrotoxic drugs. Monitor antihypertensive drug therapy. Avoid NSAIDs. Routine CMP monitoring GFR. Monitor electrolytes especially potassium. Antibiotic doses depending on creatinine clearance. Pharmacy does medications. Cr stable 2.3 appears at baseline Routine follow-up with Nephrology as an outpatient. Cr is trending down # A.Fib Chronic Pending TSH Past medical history of CHF Continue metoprolol 75 mg p.o. q.d. Not on anticoagulant Reviewed echo ejection fraction 40-45 % # Crohn's Continue Skyrizi Chronic Order stool studies including culture and WBC # Dementia Continue home medication # CHF Reviewed echo ejection fraction 40-45 % Continue home medication once medical reconciliation is complete Continue metoprolol succinate 75 mg p.o. q.d., furosemide 40 mg p.o. q.d. Monitor I and O's # DVT prophylaxis Lovenox 40 mg subcutaneous # Seizure disorder B12 deficiency BPH Cardiomyopathy Chronic anemia baseline hemoglobin between 9-10 CKD stage 3 baseline creatinine low 2s currently baseline continue to monitor Coronary artery disease history of CABG Crohn's disease history of partial colectomy Gout Hypertension Hyperlipidemia Intermittent self catheterization of bladder Peripheral vascular disease bilateral lower extremity stents Osteoarthritis Subjective Date/time seen: 01/08/25 15:04 Interval history: No further fever. Has some mild cough. Had a choking episode last evening. Review of Systems Review of Systems: All systems reviewed & are unremarkable except as noted in HPI and below Exam Narrative: GENERAL: Pleasant, in no acute distress. Well-nourished. - EYES: EOMI. Anicteric. - HENT: Moist mucous membranes. - LUNGS: Coarse breath sound bilaterall y - CARDIOVASCULAR: Regular rate and rhyth m. No murmur. No JVD. - ABDOMEN: Soft, non-tender and non-dist ended. No palpable masses. - EXTREMITIES: No edema. Peripheral puls es 2+. Non-tender. - NEUROLOGIC: No focal neurological defi cits. CN II-XII grossly intact. - PSYCHIATRIC: Awake, Alert and oriented x 3. Appropriate mood and affect. - SKIN: No rashes or lesions. Warm. - LYMPH: No cervical lymphadenopathy. Objective Data Vital Signs Vital Signs: Vital Signs - 24 hr 01/07/25 16:00 01/07/25 20:00 01/07/25 20:33 Temperature Pulse Rate 97 96 Respiratory Rate Blood Pressure Pulse Oximetry Oxygen Delivery Room Air 01/07/25 20:44 01/07/25 20:46 01/08/25 00:00 Temperature 99.4 F Pulse Rate 83 83 90 Respiratory Rate 14 Blood Pressure 127/80 Pulse Oximetry 95 Oxygen Delivery 01/08/25 04:00 01/08/25 06:00 01/08/25 08:00 Temperature 97.4 F L Pulse Rate 83 83 97 Respiratory Rate 16 Blood Pressure 130/73 Pulse Oximetry 98 Oxygen Delivery 01/08/25 08:27 01/08/25 12:00 Temperature Pulse Rate 100 78 Respiratory Rate Blood Pressure Pulse Oximetry Oxygen Delivery Intake/Output Intake/Output: Intake & Output 01/05/25 01/06/25 01/07/25 01/08/25 23:59 23:59 23:59 23:59 Intake Total 2403.8 4355 3260 680 Output Total 2100 3910 1250 725 Balance 303.8 445 2009 Meds/Results Medications: Active Medications Generic Name Dose Route Start Last Admin Trade Name Freq PRN Reason Stop Dose Admin Acetaminophen 650 mg 01/06/25 20:28 01/06/25 21:00 Acetaminophen 325 Mg Tablet PO 650 mg Q6H PRN Administration Mild Pain (1-3) or Fever Allopurinol 100 mg 01/05/25 21:00 01/07/25 20:47 Allopurinol 100 Mg Tablet PO 100 mg HS SUZAN Administration Aspirin 81 mg 01/05/25 09:00 01/08/25 08:27 Aspirin 81 Mg Enteric Tablet PO 81 mg QAM SUZAN Administration Atorvastatin Calcium 10 mg 01/05/25 18:00 01/07/25 17:14 Atorvastatin 10 Mg Tablet PO 10 mg QPM SUZAN Administration Cilostazol 100 mg 01/05/25 07:30 01/08/25 06:35 Cilostazol 100 Mg Tablet PO 100 mg DAILY@0730 SUZAN Administration Cyanocobalamin 1,000 mcg 01/31/25 09:00 Cyanocobalamin Inj 1,000 Mcg/Ml Vial IM MONTHLY SUZAN Donepezil HCl 10 mg 01/05/25 09:00 01/08/25 08:27 Donepezil Hcl 10 Mg Tablet PO 10 mg DAILY SUZAN Administration Enoxaparin Sodium 30 mg 01/05/25 09:00 01/08/25 08:31 Enoxaparin 30 Mg/0.3 Ml Syringe SUB-Q 30 mg DAILY SUZAN Administration Escitalopram Oxalate 20 mg 01/05/25 00:35 01/07/25 20:46 Escitalopram Oxalate 10 Mg Tablet PO 20 mg HS SUZAN Administration Ferrous Sulfate 325 mg 01/05/25 08:00 01/08/25 08:27 Ferrous Sulfate [address] BY MOUTH 325 mg DAILY@0800 SUZAN Administration Fluticasone Propionate 1 spray 01/05/25 09:00 01/08/25 08:31 Fluticasone Propionate 0.05% Na Spr 16 Gm Btl (*Bkc) NASAL 1 spray Q12HR SUZAN Administration Furosemide 40 mg 01/05/25 09:00 01/08/25 08:27 Furosemide 40 Mg Tablet PO 40 mg DAILY SUZAN Administration Levetiracetam 750 mg 01/05/25 00:35 01/08/25 08:27 Levetiracetam 250 Mg Tablet PO 750 mg Q12HR SUZAN Administration Loperamide HCl 2 mg 01/05/25 19:58 01/07/25 08:38 Loperamide Hcl 2 Mg Capsule PO 2 mg PRN PRN Administration Diarrhea Memantine 10 mg 01/05/25 09:00 01/08/25 08:27 Memantine 10 Mg Tablet PO 10 mg Q12HR SUZAN Administration Metoprolol Tartrate 150 mg 01/05/25 09:00 01/08/25 08:27 Metoprolol Tartrate 50 Mg Tab PO 150 mg Q12HR SUZAN Administration Miscellaneous Information 0 each 01/05/25 01:00 01/08/25 07:35 Risankizumab-Rzaa [Skyrizi] 360 Mg/2.4 Ml (150 Mg/Ml) Wearable Injector- Nonformulary. Hol XX 02/04/25 00:59 Not Given CLARIFY SUZAN Non-Formulary Medication 360 mg 01/05/25 00:30 Risankizumab-Rzaa [Skyrizi] SUB-Q 02/04/25 00:29 .Every 8 weeks [facility] Tamsulosin HCl 0.4 mg 01/05/25 00:35 01/07/25 20:47 Tamsulosin Hcl 0.4 Mg Capsule PO 0.4 mg HS SUZAN Administration Radiology Results: ITS Impressions Abdomen/Pelvis CT 01/04/25 19:03 IMPRESSION: 1. No evidence of appendicitis, colitis or intestinal obstruction. 2. Right basilar atelectasis versus pneumonia with pleural effusion. Left basilar atelectasis versus pneumonia. 3. Nodule in the right lower lobe measuring 6 mm which was not seen in the previous study. 3 months follow-up advised. 4. Thickened wall of the urinary bladder. Evaluation for cystitis advised. 5. Multiple hypodensities in the bones of the pelvis which may indicate metastatic lesions. Clinical correlation advised Chest X-Ray 01/07/25 15:22 IMPRESSION: Mild pulmonary vascular congestion with increased right-sided pleural effusion, without focal infiltrate Labs Labs: Laboratory Results - last 24 hr 01/07/25 01/08/25 17:02 04:24 WBC 5.8 RBC 2.81 L Hgb 8.7 L Hct 28.1 L MCV 100.0 MCH 31.0 MCHC 31.0 L RDW 13.8 Plt Count 163 MPV 9.7 Immature Gran % (Auto) 0.3 Neut % (Auto) 68.0 Lymph % (Auto) 14.9 L [place] % (Auto) 13.2 H Eos % (Auto) 3.1 Baso % (Auto) 0.5 Lymph # (Auto) 0.86 L [place] # (Auto) 0.8 H Eos # (Auto) 0.2 Baso # (Auto) 0.0 Abs Immat Gran (auto) 0.02 Absolute Neuts (auto) 3.9 Absolute Nucleated RBC 0.000 Nucleated RBC % 0.0 Sodium 138 Potassium 3.4 Chloride 106 Carbon Dioxide 25 Anion Gap 7 BUN 17 Creatinine 1.96 H Estim Creat Clear Calc 25 Estimated GFR 33 L Glucose 85 Calcium 8.2 L Magnesium 1.7 Total Bilirubin 0.4 AST 35 ALT 38 Alkaline Phosphatase 108 Total Protein 6.0 L Albumin 3.2 L Urine Color Yellow Urine Appearance Clear Urine pH 5.5 Ur Specific [place] 1.008 Urine Protein Negative Urine Glucose (UA) Negative Urine Ketones Negative Ur Blood (Man) 1+ H Urine Nitrate Negative Urine Bilirubin Negative Urine Urobilinogen 0.2 Leukocyte Esterase Rfl Negative Urine RBC 3-5 H Urine WBC 0-5 Ur Squamous Epith Cells None seen Urine Bacteria None seen Urine Casts 0-2
[2025-01-08] MEDS: ATORVASTATIN 10 MG TABLET PO (17:00)
[2025-01-08] MEDS: allopurinoL 100 MG TABLET PO (21:02)
[2025-01-08] MEDS: ESCITALOPRAM OXALATE 10 MG TABLET 20 MG PO (21:02)
[2025-01-08] MEDS: TAMSULOSIN HCL 0.4 MG CAPSULE PO (21:06)
[2025-01-09] VITALS: PULSE 105
[2025-01-09 04:00] VITALS: PULSE 103
[2025-01-09 04:31] LABS: Basophils Percent Auto 0.5 % (0.2-1.2); Eosinophils Absolute Auto 0.2 K/mm3 (0-0.3); Eosinophils Percent Auto 2.6 % (0-4.4); Hemoglobin 9.3 g/dL (14.0-18.0); Immature Granulocyte Absolute 0.02 K/mm3 (0.00-0.031); Immature Granulocyte Percent A 0.3 % (0-0.5); Lymphocytes Absolute Auto 0.71 K/mm3 (0.9-3.2); Lymphocytes Percent Auto 8.9 % (18.3-44.2); Mean Corpuscular HGB Conc 32.1 g/dl (32-36); Mean Corpuscular Hemoglobin 31.1 pg (26-34); Mean Platelet Volume 9.7 fl (7.4-10.4); Monocytes Absolute Auto 0.9 K/mm3 (0.1-0.6); Monocytes Percent Auto 10.8 % (2.6-8.5); Neutrophils Absolute Auto 6.2 K/mm3 (1.3-6.7); Neutrophils Percent Auto 76.9 % (45.5-73.1); Platelet Count Result 184 k/mm3 (150-375); Red Blood Count 2.99 M/mm3 (4.6-6.20); Red Cell Distribution Width 13.6 % (11.5-14.5)
[2025-01-09 04:46] LABS: Alanine Aminotransferase 35 U/L (6-50); Albumin Level 3.4 g/dL (3.5-5.1); Alkaline Phosphatase 109 U/L (38-126); Anion Gap 9 mmol/L (4-12); Aspartate Amino Transferase 31 U/L (17-59); Bilirubin,Total 0.4 mg/dL (0.2-1.3); Blood Urea Nitrogen 16 mg/dL (9-20); Calcium 8.3 mg/dL (8.4-10.2); Carbon Dioxide 27 mmol/L (22-30); Chloride 103 mmol/L (98-107); Estimated CRCL calculation 25 ml/min; Estimated Glomerular Filt Rate 34; Glucose 87 mg/dL (65-110); Magnesium 1.7 mg/dL (1.6-2.3); Potassium 3.3 mmol/L (3.4-5.0); Sodium 139 mmol/L (137-145)
[2025-01-09 05:29] VITALS: BP 133/79; PULSE 81; RESP 16; TEMP 37.1; O2SAT 98
[2025-01-09 08:02] VITALS: BP 135/89; PULSE 96; RESP 16; TEMP 36.8; O2SAT 95
[2025-01-09 08:05] VITALS: PULSE 94; PULSE 98; O2SAT 95
[2025-01-09] MEDS: MEMANTINE 10 MG TABLET PO (08:05)
[2025-01-09] MEDS: FUROSEMIDE 40 MG TABLET PO (08:05)
[2025-01-09] MEDS: DONEPEZIL HCL 10 MG TABLET PO (08:05)
[2025-01-09] MEDS: cilostazoL 100 MG TABLET PO (08:05)
[2025-01-09] MEDS: FLUTICASONE PROPIONATE 0.05% NA SPR 16 GM BTL (*BKC) 1 SPRAY NASAL (08:05)
[2025-01-09] MEDS: levETIRAcetam 250 MG TABLET 750 MG PO (08:05)
[2025-01-09] MEDS: ASPIRIN 81 MG ENTERIC TABLET PO (08:05)
[2025-01-09] MEDS: FERROUS SULFATE 325 MG TABLET DR BY MOUTH (08:05)
[2025-01-09] MEDS: METOPROLOL TARTRATE 50 MG TAB 150 MG PO (08:05)
[2025-01-09] MEDS: ENOXAPARIN 30 MG/0.3 ML SYRINGE SUB-Q (08:10)
--- NOTE | 2025-01-09 11:59 | P.DS_ITS ---
DS: Admitting Diagnosis Discharge Date 01/09/2025 Admitting Diagnosis Fever DS: Discharge Diagnosis Discharge Diagnosis (1) Atrial fibrillation: Code(s): I48.91 - Unspecified atrial fibrillation Status: Chronic (2) Cardiomyopathy: Code(s): I42.9 - Cardiomyopathy, unspecified Status: Chronic (3) Dementia of the Alzheimer's type: Code(s): G30.9 - Alzheimer's disease, unspecified; F02.80 - Dementia in other diseases classified elsewhere, unspecified severity, without behavioral disturbance, psychotic disturbance, mood disturbance, and anxiety Status: Acute DS: Summary Hospital Course Hospital Course: A 79-year-old male with a past medical history of Crohn's disease, dementia, AFib, chronic urinary retention with the need for straight cath, CHF, CKD, and cardiomyopathy presented to the emergency department due to fever, chills, and cough for about a week. # Community-acquired pneumonia Vital signs improved and stable RSV COVID flu negative Started on Amox clav and azithromycin monitor cultures: blood culture no growth, stool culture pending encourage oral intake Patient had another spike 01/06 repeat chest x-ray with mild pulmonary vascular congestion with the increased right pleural effusion. IV fluids stopped. Continue oral Lasix as ordered. Repeat urinalysis negative for infection Finished antibiotic course during the hospital stay. # Choking episode. Speech to see and did well on bedside swallow evaluation # CKD monitor closely during diuresis Avoid nephrotoxic drugs. Monitor antihypertensive drug therapy. Avoid NSAIDs. Routine CMP monitoring GFR. Monitor electrolytes especially potassium. Antibiotic doses depending on creatinine clearance. Pharmacy does medications. Cr stable 2.3 appears at baseline Routine follow-up with Nephrology as an outpatient. Cr is trending down # A.Fib Chronic Pending TSH Past medical history of CHF Continue metoprolol 75 mg p.o. q.d. Not on anticoagulant Reviewed echo ejection fraction 40-45 % # Crohn's Continue Skyrizi Chronic Order stool studies including culture and WBC # Dementia Continue home medication # CHF Reviewed echo ejection fraction 40-45 % Continue home medication once medical reconciliation is complete Continue metoprolol succinate 75 mg p.o. q.d., furosemide 40 mg p.o. q.d. Monitor I and O's # DVT prophylaxis Lovenox 40 mg subcutaneous # Seizure disorder B12 deficiency BPH Cardiomyopathy Chronic anemia baseline hemoglobin between 9-10 CKD stage 3 baseline creatinine low 2s currently baseline continue to monitor Coronary artery disease history of CABG Crohn's disease history of partial colectomy Gout Hypertension Hyperlipidemia Intermittent self catheterization of bladder Peripheral vascular disease bilateral lower extremity stents Osteoarthritis Time Spent with Patient Time attestation: Total time spent providing and/or coordinating discharge services: 35 minutes Exam Narrative: GENERAL: Pleasant, in no acute distress. Well-nourished. - EYES: EOMI. Anicteric. - HENT: Moist mucous membranes. - LUNGS: Coarse breath sound bilaterall y - CARDIOVASCULAR: Regular rate and rhyth m. No murmur. No JVD. - ABDOMEN: Soft, non-tender and non-dist ended. No palpable masses. - EXTREMITIES: No edema. Peripheral puls es 2+. Non-tender. - NEUROLOGIC: No focal neurological defi cits. CN II-XII grossly intact. - PSYCHIATRIC: Awake, Alert and oriented x 3. Appropriate mood and affect. - SKIN: No rashes or lesions. Warm. - LYMPH: No cervical lymphadenopathy. DS: Data Data Completed and Pending Labs on day of discharge: Labs from last 24 hours 01/09/25 03:53 WBC 8.0 RBC 2.99 L Hgb 9.3 L Hct 29.0 L MCV 97.0 MCH 31.1 MCHC 32.1 RDW 13.6 Plt Count 184 MPV 9.7 Immature Gran % (Auto) 0.3 Neut % (Auto) 76.9 H Lymph % (Auto) 8.9 L [place] % (Auto) 10.8 H Eos % (Auto) 2.6 Baso % (Auto) 0.5 Lymph # (Auto) 0.71 L [place] # (Auto) 0.9 H Eos # (Auto) 0.2 Baso # (Auto) 0.0 Abs Immat Gran (auto) 0.02 Absolute Neuts (auto) 6.2 Absolute Nucleated RBC 0.000 Nucleated RBC % 0.0 Sodium 139 Potassium 3.3 L Chloride 103 Carbon Dioxide 27 Anion Gap 9 BUN 16 Creatinine 1.92 H Estim Creat Clear Calc 25 Estimated GFR 34 L Glucose 87 Calcium 8.3 L Magnesium 1.7 Total Bilirubin 0.4 AST 31 ALT 35 Alkaline Phosphatase 109 Total Protein 7.0 Albumin 3.4 L Preliminary micro results at discharge 01/07/25 14:25 Blood Culture - Preliminary Blood 01/07/25 14:18 Blood Culture - Preliminary Blood 01/04/25 18:17 Blood Culture - Preliminary Blood 01/04/25 18:17 Blood Culture - Preliminary Blood Imaging Radiologist's impression: ITS Impressions Chest X-Ray 01/04/25 18:34 IMPRESSION: Bibasilar atelectasis versus pneumonia. Cardiomegaly. Abdomen/Pelvis CT 01/04/25 19:03 IMPRESSION: 1. No evidence of appendicitis, colitis or intestinal obstruction. 2. Right basilar atelectasis versus pneumonia with pleural effusion. Left basilar atelectasis versus pneumonia. 3. Nodule in the right lower lobe measuring 6 mm which was not seen in the previous study. 3 months follow-up advised. 4. Thickened wall of the urinary bladder. Evaluation for cystitis advised. 5. Multiple hypodensities in the bones of the pelvis which may indicate metastatic lesions. Clinical correlation advised Chest X-Ray 01/07/25 15:22 IMPRESSION: Mild pulmonary vascular congestion with increased right-sided pleural effusion, without focal infiltrate Discharge Plan Discharge Attending physician on discharge: Uriel Ibarra Discharging Clinician: Uriel Ibarra Anticipated Discharge Date/Time: 01/09/25 12:01 Patient Disposition: Home Activity: as tolerated Diet: heart healthy and renal Patient Instructions: Antibiotic Form, Pain Management (DC) Patient Language: Uzbek Stand Alone Forms: General Discharge Information Follow-up/Referrals: Jayne,Preethi Enciso APRN [Primary Care Provider] - 1 Week Discharge Medications: New metoprolol tartrate 50 mg Tablet 150 mg PO Q12HR Qty: 60 0RF Continued memantine 10 mg tablet 10 mg PO BID Qty: 180 3RF levetiracetam 750 mg tablet 750 mg PO Q12HR 30 Days Qty: 180 3RF fluticasone propionate 50 mcg/actuation spray,suspension 1 spray INTRANASAL Q12H furosemide 40 mg tablet 40 mg PO DAILY Folcaps [place]-3 1 cap PO BID cilostazol 100 mg tablet 100 mg PO DAILY atorvastatin 10 mg tablet 10 mg PO QPM allopurinol 100 mg tablet 100 mg PO HS aspirin 81 mg Tablet 81 mg PO DAILY coenzyme Q10 [Co Q-10] 200 mg Capsule 200 mg PO DAILY Adults Multivitamin 18 mg iron-400 mcg-25 mcg Tablet 1 tablet PO DAILY Daily Probiotic 2.5 billion cell Capsule 1 cap PO DAILY cyanocobalamin (vitamin B-12) 1,000 mcg/mL solution 1,000 mcg IM MONTHLY ferrous sulfate [FeroSul] 325 mg (65 mg iron) tablet 325 mg PO DAILY@0800 Skyrizi 360 mg/2.4 mL (150 mg/mL) wearable injector 360 mg subcut .Every 8 weeks tamsulosin 0.4 mg Capsule 0.4 mg PO HS escitalopram oxalate 20 mg tablet 20 mg PO HS loperamide [Anti-Diarrheal (loperamide)] 2 mg capsule 2 mg PO Q1-3H PRN (Reason: loose stool) Rx Instructions: administer after each loose stool until symptoms controlled; do not exceed 8 mg per 24 hrs donepezil 10 mg tablet 10 mg PO DAILY Qty: 90 2RF Rx Instructions: in the morning Discontinued donepezil [Aricept] 10 mg tablet 10 mg PO QHS Qty: 90 3RF metoprolol tartrate 25 mg tablet 75 mg PO HS Date of admission: 01/06/25 09:24 Primary Care Provider: JaynePreethi Admitting Provider: Rogelio Hughes Attending physician on admission: Rogelio Hughes Condition: Stable
[2025-01-09 12:00] VITALS: PULSE 78
== END 2025-01-09 12:42 | disposition home or self-care (01) | DRG 194 ==
LOC: ANHED 21:27 → ANH2MED 22:22
PROVIDERS: Hospitalist; Physician Assistant; Admitting Provider General Practice; Emergency Provider Physician Assistant; PCP Nurse Practitioner Family; Visit Provider Internal Medicine
DX: J18.9 Pneumonia, unspecified organism (principal); I13.0 Hypertensive heart and chronic kidney disease with heart failure and stage 1 through stage 4 chronic kidney disease, or unspecified chronic kidney disease; I42.9 Cardiomyopathy, unspecified; I48.20 Chronic atrial fibrillation, unspecified; K50.90 Crohn's disease, unspecified, without complications; I25.10 Atherosclerotic heart disease of native coronary artery without angina pectoris; I50.9 Heart failure, unspecified; I73.9 Peripheral vascular disease, unspecified; D64.9 Anemia, unspecified; E78.5 Hyperlipidemia, unspecified; E53.8 Deficiency of other specified B group vitamins; N18.30 Chronic kidney disease, stage 3 unspecified; N40.1 Benign prostatic hyperplasia with lower urinary tract symptoms; R33.8 Other retention of urine; G40.909 Epilepsy, unspecified, not intractable, without status epilepticus; G30.9 Alzheimer's disease, unspecified; F02.80 Dementia in other diseases classified elsewhere, unspecified severity, without behavioral disturbance, psychotic disturbance, mood disturbance, and anxiety; F32.A Depression, unspecified; Z20.822 Contact with and (suspected) exposure to COVID-19; Z79.82 Long term (current) use of aspirin; Z86.73 Personal history of transient ischemic attack (TIA), and cerebral infarction without residual deficits; Z95.1 Presence of aortocoronary bypass graft; Z87.442 Personal history of urinary calculi; Z95.820 Peripheral vascular angioplasty status with implants and grafts; Z87.891 Personal history of nicotine dependence
CPT/HCPCS: 36415; 71045; 74176; 80048; 80053; 81001; 83605; 83735; 84484; 85025; 85027; 85610; 85730; 86140; 87040; 87045; 87427; 87449; 87637; 89055; 92610; 93005; 96361; 96365; 96367; 96372; 96375; 99285; A9270; G0378; J0456; J0696; J1650; J7030; J7040

== ENCOUNTER 2025-01-26 12:16 | Outpatient (CLI) | payer MEDICARE, SELFPAY ==
--- OUTSIDE RECORDS SUMMARY | 2024-12-30 12:27 | XMS_ITS | Continuity of Care Document ---
Author Name [facility] Organization [facility] Care Team Providers Care Supervisor Anodizing Name Role Phone [facility] Unavailable Unavailable Encounters Combined list of: 1) Encounters from [facility] facilities going backup to the last 18 months, not all [facility] inpatient encounters are included; 2) Encounters from the Department of [facility] facilities going backup to 280 months. Location Location Details Encounter Type Encounter Number Reason For Visit Attending Provider ADM Date DC Date Status Disposition Source [facility] Outpatient Encounter [id number] [facility]
--- OUTSIDE RECORDS SUMMARY | 2024-12-30 12:27 | XMS_ITS | Encounter Summary ---
Author Organization [facility] Address [address] [place] [address] Phone Care Team Providers Care Senior Cobol Developer Name Role Phone John Kimbrough MD Primary Care Provider [phone] Kath Shepherd MD Unavailable [phone] Peter Ya MD Unavailable [phone] Vitaly Ledesma MD Unavailable [phone] Anayeli Lee MD Primary Care Provider Joshua Butterfield MD Unavailable [phone] Jeffery Bustillos MD Unavailable [phone] Shimon Schofield MD Unavailable Preethi Godoy NP Primary Care Provider [phone] Encounter Details Date Type Department Care Team (Late st Contact Info) Description 01/13/2018 Orders Only [facility] ProviderlOive MD [address] [place] [address] Social History Tobacco Use Types Packs/Day Years Used Date Smoking Tobacco: Never Smokeless Tobacco: Never Alcohol Use Standard Drinks/Week Comments No 0 (1 standard drink = 0.6 oz pur e alcohol) Sex and Gender Information Value Date Recorded Sex Assigned at Not on file 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 2:24 AM BODY SERVICE TEAM MEMBER Gender Identity Not on file Sexual Orientation [...] COVID: Suspected 08/21/2021 08/21/2021 08/21/2021 11:38 AM BODY SERVICE TEAM MEMBER COVID: Suspected 11/14/2024 11/14/2024 11/14/2024 10:49 AM BODY SERVICE TEAM MEMBER COVID: Suspected 11/14/2024 11/14/2024 11/14/2024 3:33 PM BODY SERVICE TEAM MEMBER RSV, droplet 11/14/2024 11/14/2024 11/21/2024 3:07 AM BODY SERVICE TEAM MEMBER documented as of this encounter Care Teams Senior Cobol Developer Relationship Specialty Start Date End Date John Kimbrough MD [address] [facility] [address] [place] [address] PCP - General 11/08/16 07/02/23 Anayeli Lee MD [address] [place] [address] PCP - General Family Medicine 07/03/23 08/24/24 Preethi Godoy NP [address] [address] PCP - General Family Medicine 08/25/24 Kath Shepherd MD [address] [place] [address] Consulting Physician Gastroenterology 07/22/19 Peter Ya MD [address] [place] [address] Phone Circuit Operator Cardiology 07/22/19 Vitaly Ledesma MD [address] [place] [address] Consulting Physician Neurology 07/22/19 Joshua Butterfield MD [address] [facility] [address] [place] [address] Consulting Physician Urology 07/03/23 Jeffery Bustillos MD [address] [facility] [address] [place] [address] Consulting Physician Cardiovascular Disease 02/06/24 Shimon Schofield MD [address] [address] Consulting Physician Vascular Surgery 02/06/24 documented as of this encounter
--- OUTSIDE RECORDS SUMMARY | 2024-12-30 12:28 | XMS_ITS | Encounter Summary ---
Author Organization [facility] Address [address] [place] [address] Phone Care Team Providers Care Hand Developer Name Role Phone John Kimbrough MD Primary Care Provider [phone] Kath Shepherd MD Unavailable [phone] Peter Ya MD Unavailable [phone] Vitaly Ledesma MD Unavailable [phone] Anayeli Lee MD Primary Care Provider Joshua Butterfield MD Unavailable [phone] Jeffery Bustillos MD Unavailable [phone] Shimon Schofield MD Unavailable Preethi Godoy NP Primary Care Provider [phone] Encounter Details Date Type Department Care Team [...] on file 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 2:24 AM EMERGENCY SERVICES PROFESSIONAL Gender Identity Not on file Sexual Orientation Not on file 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 Start 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 Job End Date 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 [employer] Not on [...] COVID: Suspected 08/21/2021 08/21/2021 08/21/2021 11:38 AM EMERGENCY SERVICES PROFESSIONAL COVID: Suspected 11/14/2024 11/14/2024 11/14/2024 10:49 AM EMERGENCY SERVICES PROFESSIONAL COVID: Suspected 11/14/2024 11/14/2024 11/14/2024 3:33 PM EMERGENCY SERVICES PROFESSIONAL RSV, droplet 11/14/2024 11/14/2024 11/21/2024 3:07 AM EMERGENCY SERVICES PROFESSIONAL documented as of this encounter Care Teams Hand Developer Relationship Specialty Start Date End Date John Kimbrough MD [address] [facility] [address] [place] [address] PCP - General 11/08/16 07/02/23 Anayeli Lee MD [address] [place] [address] PCP - General Family Medicine 07/03/23 08/24/24 Preethi Godoy NP [address] [facility] [address] [place] [address] PCP - General Family Medicine 08/25/24 Kath Shepherd MD [address] [place] [address] Consulting Physician Gastroenterology 07/22/19 Peter Ya MD [address] [place] [address] Application Integration Architect Cardiology 07/22/19 Vitaly Ledesma MD [address] [place] [address] Consulting Physician Neurology 07/22/19 Joshua Butterfield MD [address] [facility] [address] [place] [address] Consulting Physician Urology 07/03/23 Jeffery Bustillos MD [address] [facility] [address] [facility] [address] [place] [address] Consulting Physician Cardiovascular Disease 02/06/24 Shimon Schofield MD [address] [address] Consulting Physician Vascular Surgery 02/06/24 documented as of this encounter
--- OUTSIDE RECORDS SUMMARY | 2024-12-30 12:28 | XMS_ITS | Encounter Summary ---
Author Organization [facility] Address [address] [place] [address] Phone Care Team Providers Care Cat Swamper Name Role Phone John Kimbrough MD Primary Care Provider [phone] Kath Shepherd MD Unavailable [phone] Peter Ya MD Unavailable [phone] Vitaly Ledesma MD Unavailable [phone] Anayeli Lee MD Primary Care Provider Joshua Butterfield MD Unavailable [phone] Jeffery Bustillos MD Unavailable [phone] Shimon Schofield MD Unavailable Preethi Godoy NP Primary Care Provider [phone] Encounter Details Date Type Department Care Team (Late st Contact Info) Description 02/03/2020 Telephone [facility] Gastroenterology [facility] [address] [place] [address] [place] [address] Sherie Yoo, [facility] Social History Tobacco Use Types Packs/Day Years Used Date Smoking Tobacco: Former Smokeless Tobacco: Never Alcohol Use Standard Drinks/Week Comments No 0 (1 standard drink = 0.6 oz pur e alcohol) Sex and Gender Information Value Date Recorded Sex Assigned at Not on file 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 2:24 AM OVERLOCK COLLAR SETTER Gender Identity Not on file Sexual Orientation Not on file documented as of this encounter Plan of Treatment Not on file documented as of this encounter Visit Diagnoses Not on filedocumented in this encounter Additional Health Concerns Infection Onset Date Last Indicated Resolved Time COVID: Suspected 08/21/2021 08/21/2021 08/21/2021 11:38 AM OVERLOCK COLLAR SETTER COVID: Suspected 11/14/2024 11/14/2024 11/14/2024 10:49 AM OVERLOCK COLLAR SETTER COVID: Suspected 11/14/2024 11/14/2024 11/14/2024 3:33 PM OVERLOCK COLLAR SETTER RSV, droplet 11/14/2024 11/14/2024 11/21/2024 3:07 AM OVERLOCK COLLAR SETTER documented as of this encounter Care Teams Cat Swamper Relationship Specialty Start Date End Date John Kimbrough MD [address] [facility] [address] [place] [address] PCP - General 11/08/16 07/02/23 Anayeli Lee MD [address] [place] [address] PCP - General Family Medicine 07/03/23 08/24/24 Preethi Godoy NP [address] [facility] [address] [place] [address] PCP - General Family Medicine 08/25/24 Kath Shepherd MD [address] [place] [address] Consulting Physician Gastroenterology 07/22/19 Peter Ya MD [address] [place] [address] Construction Equipment Mechanic Helper Cardiology 07/22/19 Vitaly Ledesma MD [address] [place] [address] Consulting Physician Neurology 07/22/19 Joshua Butterfield MD [address] [facility] [address] [place] [address] Consulting Physician Urology 07/03/23 Jeffery Bustillos MD [address] [facility] [address] [facility] 102 [place] [address] Consulting Physician Cardiovascular Disease 02/06/24 Shimon Schofield MD [address] [address] Consulting Physician Vascular Surgery 02/06/24 documented as of this encounter
--- OUTSIDE RECORDS SUMMARY | 2024-12-30 12:28 | XMS_ITS | Encounter Summary ---
Author Organization [facility] Address [address] [place] [address] Care Team Providers Care Signal Integrity Engineer Name Role Phone Kath Shepherd MD Unavailable [phone] Peter Ya MD Unavailable [phone] Vitaly Ledesma MD Unavailable [phone] Joshua Butterfield MD Unavailable [phone] Jeffery Bustillos MD Unavailable [phone] Shimon Schofield MD Unavailable Preethi Godoy NP Primary Care Provider [phone] Encounter Details Date Type Department Care Team (Late st Contact Info) Description 11/14/2024 Results Follow-Up [facility] at [address] [address] Mandy Hernandez KRISTIAN [address] [place] [address] [address] [place] [address] Social History Tobacco Use Types [...] on file 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 2:24 AM GUEST RELATIONS REPRESENTATIVE Gender Identity Not on file Sexual Orientation Not on file 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 [employer] Not on file Not on file Not on file documented as of this encounter Plan of Treatment Not on file documented as of this encounter Visit Diagnoses Not on filedocumented in this encounter Additional Health Concerns Infection Onset Date Last Indicated Resolved Time COVID: Suspected 11/14/2024 11/14/2024 11/14/2024 10:49 AM GUEST RELATIONS REPRESENTATIVE COVID: Suspected 11/14/2024 11/14/2024 11/14/2024 3:33 PM GUEST RELATIONS REPRESENTATIVE RSV, droplet 11/14/2024 11/14/2024 11/21/2024 3:07 AM GUEST RELATIONS REPRESENTATIVE documented as of this encounter Care Teams Signal Integrity Engineer Relationship Specialty Start Date End Date Preethi Godoy NP [address] [facility] [address] [place] [address] PCP - General Family Medicine 08/25/24 Kath Shepherd MD [address] [place] [address] Consulting Physician Gastroenterology 07/22/19 Peter Ya MD [address] [place] [address] Chief Credit Officer Cardiology 07/22/19 Vitaly Ledesma MD [address] [place] [address] Consulting Physician Neurology 07/22/19 Joshua Butterfield MD [address] [place] [address] [address] [place] [address] Consulting Physician Urology 07/03/23 Jeffery Bustillos MD [address] [place] [address] Consulting Physician Cardiovascular Disease 02/06/24 Shimon Schofield MD [address] [address] Consulting Physician Vascular Surgery 02/06/24 documented as of this encounter
--- OUTSIDE RECORDS SUMMARY | 2024-12-30 12:28 | XMS_ITS | Referral Summary ---
Author Organization [facility] Address [address] [place] [address] Care Team Providers Care Joy Operator Name Role Phone Kath Shepherd MD Unavailable [phone] Peter Ya MD Unavailable Aziza Ledesma MD Unavailable [phone] Joshua Butterfield MD Unavailable [phone] Jeffery Bustillos MD Unavailable [phone] Shimon Schofield MD Unavailable Preethi Godoy NP Primary Care Provider [phone] Encounters Date Type Department Care Team Description 11/29/2024 Results Follow-Up [facility] Primary Care at [address] [phone] Preethi Godoy, BUYER INTERN Pulmonary nodule 1 cm or greater in diameter (Primary Dx) 11/29/2024 Orders Only [facility] Primary Care at [address] [phone] Preethi Godoy BUYER INTERN Abnormal CXR; Pneumonia of both lungs due to infectious organism, unspecified part of lung; Cough, unspecified type; Fever, unspecified fever cause 11/26/2024 Orders Only [facility] Primary Care at [address] [phone] Preethi Godoy NP 11/26/2024 Telephone [facility] Primary Care at [address] [phone] Preethi Godoy NP Medical Question/Miscellaneo us 11/26/2024 Orders Only [facility] Primary Care at [address] [phone] Preethi Godoy NP 11/26/2024 Telephone [facility] Primary Care at [address] [phone] Preethi Godoy NP Symptom Based Call 11/24/2024 Results Follow-Up [facility] Primary Care at [address] [phone] Preethi Godoy NP 11/23/2024 1:22 PM SOURCING SPECIALIST - 11/23/2024 11:59 PM SOURCING SPECIALIST Hospital Encounter [address] [address] Benign hypertension with stage 3a chronic kidney disease (HCC); Iron deficiency anemia due to chronic blood loss Discharge Disposition: Discharge to home or self care 11/23/2024 1:30 PM SOURCING SPECIALIST Lab [facility] Outpatient Lab at [address] [phone] Pneumonia due to infectious organism, unspecified laterality, unspecified part of lung (Primary Dx) 11/23/2024 1:30 PM SOURCING SPECIALIST Ancillary Procedure [facility] Imaging at [address] [phone] Pneumonia due to infectious organism, unspecified laterality, unspecified part of lung 11/23/2024 12:30 PM SOURCING SPECIALIST Office Visit [facility] Primary Care at [address] [phone] Preethi Godoy NP Pneumonia due to infectious organism, unspecified laterality, unspecified part of lung (Primary Dx); Iron deficiency anemia due to chronic blood loss; Benign hypertension with stage 3a chronic kidney disease (HCC); Persistent atrial fibrillation (HCC) 11/16/2024 Orders Only [facility] Convenient Care at [address] [phone] Gladys Valdovinos NP Lower respiratory infection (e.g., bronchitis, pneumonia, pneumonitis, pulmonitis) (Primary Dx) 11/16/2024 2:00 PM SOURCING SPECIALIST Ancillary Procedure [facility] Imaging at [address] [phone] Acute cough 11/14/2024 Results Follow-Up [facility] Convenient Care at [address] [phone] Mandy Hernandez PA 11/14/2024 11:00 AM SOURCING SPECIALIST - 11/14/2024 11:59 PM SOURCING SPECIALIST Hospital Encounter [address] [address] Acute cough Discharge Disposition: Discharge to home or self care 11/14/2024 10:00 AM SOURCING SPECIALIST Office Visit [facility] Convenient Care at [address] [phone] Mandy Hernandez PA Acute cough (Primary Dx) 11/10/2024 Orders Only [facility] Primary Care at [address] [phone] Preethi Godoy NP 11/03/2024 Orders Only [facility] [address] [place] [address] [facility] [place] [address] Kath Shepherd MD 10/25/2024 Telephone [facility] [address] [place] [address] Medicine access [facility] [place] [address] Jeannine Newman, RN Med Management (Skyrizi PAP for 2024) 10/21/2024 10:58 AM SOURCING SPECIALIST Anesthesia Event [facility] Dig[facility] Disease [place] [id number] [address] Danyell Maher MD 10/21/2024 10:30 AM SOURCING SPECIALIST - 10/21/2024 11:15 AM SOURCING SPECIALIST Surgery [facility] Disease [address] [address] Kath Shepherd MD COLON BIOPSY 10/21/2024 9:15 AM SOURCING SPECIALIST - 10/21/2024 12:33 PM SOURCING SPECIALIST Hospital Encounter [facility] [place] [phone] Kath Shepherd MD Crohn's disease of both small and large intestine with other complication (HCC) Discharge Disposition: Discharge to home or self care 10/20/2024 Telephone [facility] Primary Care at [address] [phone] Preethi Godoy NP Medical Question/Miscellaneo us 10/14/2024 Telephone [facility] Specialty Services [address] [place] [phone] Stacey Crane, TEDDY 10/14/2024 Telephone [facility] Special[facility] Services [address] [place] [phone] Stacey Crane, TEDDY 10/14/2024 Telephone [facility] [address] [place] [phone] Stacey Crane, RN GI PROCEDURE 7 DAY PRE CALL from Last 3 Months Allergies No known active allergies Medications coenzyme Q10 10 mg capsule Take 2 capsules (20 mg total) by mouth every morning Active dzpyk-9-pyf-ep a-dpa-fish oil 1,050-1,200 mg capsule Take 1 [...] a day 22 g 05/06/20 23 Active cilostazoL (PLETAL) 100 mg tablet Take 1 tablet (100 mg total) by mouth nightly 100 tablet 4 05/28/20 24 Active atorvastatin (LIPITOR) 10 mg tablet TAKE 1 TABLET NIGHTLY 90 tablet 3 06/08/20 24 Active metoprolol XL (TOPROL-XL) 100 mg 24 hr tablet Take 1 tablet (100 mg total) by mouth daily 30 tablet 11 06/10/20 24 025 Active levETIRAcetam (KEPPRA) 750 mg tablet Take [...] of breath 1 each 11/27/19 25 Active escitalopram (LEXAPRO) 20 mg tabletIndicati ons: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),Cerebral amyloid angiopathy (HCC),KAYLA (generalized anxiety disorder) Take 1 tablet (20 mg total) by mouth daily 90 tablet 1 12/28/19 25 Active amLODIPine (NORVASC) 5 mg tablet Take 0.5 tablets (2.5 mg total) by mouth 2 (two) times a day 10/08/19 23 023 Discontinued irbesartan (AVAPRO) 150 mg tablet Take 0.5 tablets (75 mg total) by mouth daily 90 tablet 1 10/28/19 23 023 Discontinued escitalopram (LEXAPRO) 20 mg tabletIndicati ons: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),Cerebral amyloid angiopathy (HCC),KAYLA (generalized anxiety disorder) Take 1 tablet (20 mg total) by mouth daily 100 tablet 3 10/03/19 24 025 Discontinued(R eorder) moxifloxacin (AVELOX) 400 mg tablet Take 1 tablet (400 mg total) by mouth daily for 5 days 5 tablet 11/27/19 25 025 escitalopram (LEXAPRO) 20 mg tabletIndicati ons: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),Cerebral amyloid angiopathy (HCC),KAYLA (generalized anxiety disorder) Take 1 tablet (20 mg total) by mouth daily 100 tablet 3 12/10/19 25 025 Discontinued(R eorder) Hospital, Clinic, or Other Facility Administered Medication Ordered Dose Route Frequency Start Date End Date [facility] (/[id number]) capsule 4 capsuleIndications:Crohn' s disease of both small and large intestine with other complication (HCC) 4 capsule oral 2 times daily 05/21/2022 Active [facility] BMS-698477/placebo (/[id number]) capsule 4 capsuleIndications:Crohn' s disease of both small and large intestine with other complication (HCC) 4 capsule oral 2 times daily 06/18/2022 Active [facility] BMS-602841/placebo (/[id number]) capsule 4 capsuleIndications:Crohn' s disease of both small and large intestine with other complication (HCC) 4 capsule oral 2 times daily 07/09/2022 Active [facility] BMS-925494/placebo (/[id number]) capsule 4 capsuleIndications:Crohn' s disease of both small and large intestine with other complication (HCC) 4 capsule oral 2 times daily 08/07/2022 Active [facility] BMS-521498/placebo (/[id number]) capsule 4 capsuleIndications:Crohn' s disease of both small and large intestine with other complication (HCC) 4 capsule oral 2 times daily 09/19/2022 Active [facility] BMS-937925/placebo (/[id number]) capsule 4 capsuleIndications:Crohn' s disease of both [...] modification Assessment & Plan (10/03/2023 1:12 PM SOURCING SPECIALIST): Chronic. Due to prior peripheral arterial disease. [...] urologist Assessment & Plan (10/03/2023 1:12 PM SOURCING SPECIALIST): Chronic. Continue medication care per Urology Assessment & Plan (07/03/2023 5:22 PM CDT): Follows with [facility] Dr. Butterfield. Patient on finasteride and does intermittent straight catheterization Protein-calorie malnutrition, mild 07/03/2023 Overview (07/03/2023): Patient with low BMI. Less protein level was low. Monitor weight Assessment & Plan (02/06/2024 4:55 PM CDT): Patient has had borderline protein calorie malnutrition. Monitor his protein levels on labs. Encourage adequate nutrition. Avoid additional weight loss Assessment & Plan (10/03/2023 1:12 PM SOURCING SPECIALIST): Chronic. BMI remains at the lower end arrange. Encouraged adequate nutrition. Monitor History of gout 07/03/2023 Assessment & Plan (02/06/2024 4:55 PM CDT): Chronic. Denies history of recent flares. Continue allopurinol for prophylaxis. Check uric acid Assessment & Plan (10/03/2023 1:12 PM SOURCING SPECIALIST): Chronic. Denies any history of gout in [...] 03/14/2023 Assessment & Plan (10/03/2023 1:13 PM SOURCING SPECIALIST): Chronic. May occasionally increase in size. Minimal pain. Has deferred elective repair in the past Persistent atrial fibrillation 12/04/2021 Assessment & Plan (11/23/2024 1:36 PM SOURCING SPECIALIST): Rate controlled in office, continuing follow up with Cardiology. Assessment & Plan (03/01/2024 7:51 AM CDT): Stable continue metoprolol. Assessment & Plan (02/06/2024 4:55 PM CDT): Chronic. Controlled rate with metoprolol. Continue. Continue aspirin for stroke prophylaxis Assessment & Plan (10/03/2023 1:12 PM SOURCING SPECIALIST): Chronic. Continue risk factor modification. Continue ASA [...] Monitor Assessment & Plan (10/03/2023 1:11 PM SOURCING SPECIALIST): Chronic. Denies significant worsening. No agitation recently. [...] They denies significant agitation Cerebral amyloid angiopathy ([facility] 02/15/2020 Assessment & Plan (02/06/2024 4:54 PM CDT): Chronic. Memory has worsened slightly in the last year. He does have some fluctuations at times. No real agitation. Target good blood pressure control. Continue aspirin for his other issues. Would be cautious with more aggressive anticoagulation given history of amyloid angiopathy Assessment & Plan (10/03/2023 1:11 PM SOURCING SPECIALIST): Chronic. Denies any progression of symptoms Assessment & Plan (07/03/2023 5:18 PM CDT): Chronic. Control blood pressure and modify risk factors as able. Continue aspirin given AFib but would be cautious with stronger anticoagulants given increased bleeding risk with cerebral amyloid angiopathy Peripheral artery disease 09/10/2019 Overview (09/10/2019): Added automatically from request for surgery [id number] Assessment & Plan (09/03/2024 10:57 AM SOURCING SPECIALIST): Stable lower extremity occlusive disease. Continue risk [...] duplex. Assessment & Plan (10/03/2023 1:11 PM SOURCING SPECIALIST): Chronic. Denies recent claudication symptoms. Continue ASA, statin and Pletal Assessment & Plan (07/03/2023 5:22 PM CDT): Chronic. 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 Denies current sores on his feet. Follows with [place]iatry in [place]. On cilostazol Iron deficiency anemia due to [...] 02/17/2019 Assessment & Plan (11/23/2024 1:35 PM SOURCING SPECIALIST): BP normal in office, continuing current regimen. [...] dehydrate Assessment & Plan (10/03/2023 1:10 PM SOURCING SPECIALIST): Chronic. Blood pressure controlled. Continue current prescription [...] (01/26/2019): Added automatically from request for surgery [id number] Assessment & Plan (02/06/2024 4:52 PM CDT): Chronic. Disease has been stable. Minimal symptoms. He does have to be cautious with eating too many fruits and vegetables as he notes this does cause some GI distress. He remains controlled with Skyrezi and hydroxychloroquine. He will continue Assessment & Plan (10/03/2023 1:10 PM SOURCING SPECIALIST): Chronic. Symptomatically improved per patient. Continue medication and care per GI Assessment & Plan (07/03/2023 5:20 PM CDT): Chronic. Follows with Gastroenterology. On scar oz and sulfasalazine. Continue medication and care per them CAD (coronary artery disease) 12/04/2018 Assessment & Plan (09/03/2024 10:57 AM SOURCING SPECIALIST): Stable continue ASA and Lasix Assessment & Plan (02/06/2024 4:51 PM CDT): Chronic. Denies chest pain. Continue risk factor modification with statin, aspirin, blood pressure control. Target LDL less than 70 Assessment & Plan (10/03/2023 1:10 PM SOURCING SPECIALIST): Chronic. Denies chest pain. Follows with cardiology. [...] 12/30/2017 Assessment & Plan (08/25/2024 4:06 PM SOURCING SPECIALIST): Updated labs ordered, Hemoglobin was 9 in [...] infusions Assessment & Plan (10/03/2023 1:10 PM SOURCING SPECIALIST): Chronic. Follows with GI and Hematology. Has received iron infusions. Often does B12 injections Assessment & Plan (07/03/2023 5:15 PM CDT): Chronic. Follows with GI and Hematology. Received iron infusions Hypercholesterolemia 02/05/2011 Assessment & Plan (09/03/2024 10:57 AM SOURCING SPECIALIST): Stable continue statin therapy. Assessment & Plan (03/01/2024 7:50 AM CDT): Stable continue statin therapy. Assessment & Plan (02/06/2024 4:53 PM CDT): Chronic. Tolerates atorvastatin. Continue. Check cholesterol level and adjust for an LDL goal of at least less than 70 with optimal less than 55 Assessment & Plan (10/03/2023 1:10 PM SOURCING SPECIALIST): Chronic. Tolerates current prescription medication. 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 [employer] Not on file Not on file Not on file Last Filed Vital Signs Vital Sign Reading Time Taken Comments Blood Pressure 120/60 11/23/2024 12:30 PM SOURCING SPECIALIST Pulse 80 11/23/2024 12:30 PM SOURCING SPECIALIST Temperature 36.4 C (97.5 F) 11/23/2024 12:30 PM SOURCING SPECIALIST Respiratory Rate 20 11/14/2024 10:16 AM SOURCING SPECIALIST Oxygen Saturation 99% 11/14/2024 10:16 AM SOURCING SPECIALIST Inhaled Oxygen Concentration - - Weight 64 kg (141 lb) 11/23/2024 12:30 PM SOURCING SPECIALIST Height 177.8 cm (5' 10 ) 11/23/2024 12:30 PM SOURCING SPECIALIST Body Mass Index 20.23 11/23/2024 12:30 PM SOURCING SPECIALIST Plan of Treatment Not on file Medical Devices Implanted Type Area Frame Sample And Pattern Supervisor Device Identifier Shelf Expiration Date Model / Serial / Lot [email or web address] [id number] Synergy 3.5mm 24mm 144cm Radiopaque 1 Access Port Inflation Lumen - [id number] - [id number] Implanted:Qty: 1 on 03/26/2019 by Alban Santana MD at [facility] [employer] 12/09/2020 [id number] / [id number] / [id number] Procedures Procedure Name Priority Date/Time Associated Diagnosis Comments NM BRAIN IMAGING SPECT/CT Schedule Routine, Read Routine (OP Routine) 11/28/2024 10:49 AM CDT XR CHEST 2 VIEWS W APICAL LORDOTIC 3 VIEWS Schedule Routine, Read Routine (OP Routine) 11/28/2024 10:[address] CHEST WO CONTRAST Schedule Routine, Read Routine (OP Routine) 11/26/2024 10:46 AM SOURCING SPECIALIST Abnormal CXR Pneumonia of both lungs due to infectious organism, unspecified part of lung Cough, unspecified type Fever, unspecified fever cause XR CHEST PA LATERAL 2 VIEWS Schedule Routine, Read Routine (OP Routine) 11/23/2024 1:30 PM SOURCING SPECIALIST Pneumonia due to infectious organism, unspecified laterality, unspecified part of lung EGFR Routine 11/23/2024 1:22 PM SOURCING SPECIALIST Benign hypertension with stage 3a chronic kidney disease (HCC) DIFFERENTIAL AUTO Routine 11/23/2024 1:2 2 PM SOURCING SPECIALIST Iron deficiency anemia due to chronic blood loss Benign hypertension with stage 3a chronic kidney disease (HCC) CBC WITH AUTO DIFFERENTIAL Routine 11/23/2024 1:22 PM SOURCING SPECIALIST Iron deficiency anemia due to chronic blood loss Benign hypertension with stage 3a chronic kidney disease (HCC) IRON Routine 11/23/2024 1:22 PM SOURCING SPECIALIST Iron deficiency anemia due to chronic blood loss BASIC METABOLIC PANEL Routine 11/23/2024 1:22 PM SOURCING SPECIALIST Benign hypertension with stage 3a chronic kidney disease (HCC) XR CHEST PA LATERAL 2 VIEWS Schedule YULIANA, Read YULIANA (Appt Today, Awaiting Results) 11/16/2024 2:07 PM SOURCING SPECIALIST Acute cough INFLUENZA A/B, RSV, AND COVID-19 PCR Routine 11/14/2024 11:00 AM SOURCING SPECIALIST Acute cough POC INFLUENZA A/B, COVID-19 ANTIGEN Routine 11/14/2024 10:47 AM SOURCING SPECIALIST Acute cough SURGICAL PATHOLOGY Routine 10/21/2024 11 :18 AM SOURCING SPECIALIST Crohn's disease of both small and large intestine with other complication (HCC) COLON BIOPSY 10/21/2024 10:58 AM SOURCING SPECIALIST Crohn's disease of both small and large intestine with other complication (HCC) COLONOSCOPY 10/21/2024 10:56 AM SOURCING SPECIALIST CTA ABDOMEN PELVIS W WO CONTRAST Schedule Routine, Read Routine (OP Routine) 02/18/2024 12:14 PM CDT PVD (peripheral vascular disease) HEPATITIS C ANTIBODY Routine 02/06/2024 11:23 AM CDT Encounter for hepatitis C screening test for low risk patient from Last 3 Months or Most Recently Relevant to Health Maintenance Results * NM Brain Imaging SPECT/CT (11/28/2024 10:49 AM CDT) Anatomical Region Laterality Modality Head and Neck N/A Nuclear Medicine us Historical Provider MD YARELI KIRK PROCEDURES Final R esult * XR Chest 2 Views W Apical Lordotic 3 Views (11/28/2024 10:48 AM CDT) Anatomical Region Laterality Modality Body, Chest N/A Radiographic Mariangel ging us Historical Provider IMFei XR PROCEDURES Final R esult * CT Chest WO Contrast (11/26/2024 10:46 AM SOURCING SPECIALIST) Anatomical Region Laterality Modality Body N/A Computed Tomogra phy us Preethi Godoy NP IMG CT PROCEDURES Final Result * XR Chest PA Lateral 2 Views (11/23/2024 1:30 PM SOURCING SPECIALIST) Anatomical Region Laterality Modality Body, Chest N/A Digital Radiogra phy 11/26/2024 2:09 PM SOURCING SPECIALIST Narrative 11/26/2024 2:11 PM SOURCING SPECIALIST EXAM DESCRIPTION: XR CHEST PA LATERAL 2 [...] bilateral pleural effusion with adjacent airspace opacities, lttxw-qmuzjrs-btgv-left. Right mid chest linear density , linear [...] Buck Oleary D.O. AP T: Report ID: [id number] Reading Location: [place] [address] Procedure Note Buck Oleary, DO - 11/26/2024 [...] Small bilateral pleural effusionwith adjacent airspace opacities, uonex-ggrjukk-knfx-left. Right mid chestlinear density , linear atelectasis [...] signed by Buck DOUGLAS T: Report ID: [id number] Reading Location: [place] [address] us Preethi Godoy NP IMG XR PROCEDURES Final Result * (ABNORMAL) eGFR (11/23/2024 1:22 PM SOURCING SPECIALIST) eGFR 34(L) >=60 mL/min/1. 73 m2 Comment: [...] last reviewed 2021. Blood 11/23/2024 1:22 PM SOURCING SPECIALIST 11/24/2024 11:14 AM SOURCING SPECIALIST us Preethi Godoy BUYER INTERN LAB BLOOD ORDERABLES Final Resul t [facility] [id number] Department [place] [address] * (ABNORMAL) Differential, auto (11/23/2024 1:22 PM SOURCING SPECIALIST) Neutrophil abs 6.3 1.5 - 6.5 K/cumm Imm gran abs 0.0 0.0 - 0.1 K/cumm [facility] Lymphocyte abs 0.7(L) 0.8 - 3.3 K/cumm [facility] Monocyte abs 1.0(H) 0.2 - 0.8 K/cumm [facility] Eosinophil abs 0.2 0.0 - 0.5 K/cumm [facility] Basophil abs 0.1 0.0 - 0.1 K/cumm [facility] Neutrophil pct 75.6 % [facility] Comment: Interpretive Data Percent cell count reference ranges are not reported, since discordance with absolute values may lead to misinterpretation of CBC data. Current Interpretive Data was last revised on 2017. Imm gran pct 0.5 % [facility] Comment: Interpretive Data Percent cell count reference ranges are not reported, since discordance with absolute values may lead to misinterpretation of CBC data. Current Interpretive Data was last revised on 2017. Lymphocyte pct 8.8 % [facility] Comment: Interpretive Data Percent cell count reference ranges are not reported, since discordance with absolute values may lead to misinterpretation of CBC data. Current Interpretive Data was last revised on 2017. Monocyte pct 11.6 % [facility] Comment: Interpretive Data Percent cell count reference ranges are not reported, since discordance with absolute values may lead to misinterpretation of CBC data. Current Interpretive Data was last revised on 2017. Eosinophil pct 2.9 % [facility] Comment: Interpretive Data Percent cell [...] revised on 2017. Blood 11/23/2024 1:22 PM SOURCING SPECIALIST 11/24/2024 11:08 AM SOURCING SPECIALIST Preethi Godoy NP LAB BLOOD ORDERABLES Final Resul t [facility] [id number] Department [place] [address] * (ABNORMAL) CBC with auto differential (11/23/2024 1:22 PM SOURCING SPECIALIST) WBC 8.4 3.8 - 9.9 K/cumm Hgb 9.7(L) 13.0 - 17.5 g/dL [facility] Hct 31.3(L) 38.9 - 50.3 % [facility] Plt 179 150 - 400 K/cumm [facility] MPV 10.2 9.1 - 12.3 fL [facility] RBC 3.12(L) 4.30 - 5.80 M/cumm [facility] MCV 100.3(H) 81.3 - 96.4 fL [facility] MCH 31.1 27.1 - 33.3 pg [facility] MCHC 31.0(L) 32.3 - 35.7 g/dL [facility] RDW CV 17.2(H) 11.1 - 14.9 % [facility] RDW SD 64.2(H) 35.7 - 48.1 fL [facility] NRBC abs 0.00 0.00 - 0.01 K/cumm [facility] Blood 11/23/2024 1:22 PM SOURCING SPECIALIST 11/24/2024 11:08 AM SOURCING SPECIALIST us Preethi Godoy BUYER INTERN LAB BLOOD ORDERABLES Final Resul t Performing Organization Address [facility] Co de Phone Number TRAVIS BROWNLEE [address] [facility] [place] [address] * (ABNORMAL) Iron level (11/23/2024 1:22 PM SOURCING SPECIALIST) Iron 47(L) 50 - 150 mcg/dl Blood 11/23/2024 1:22 PM SOURCING SPECIALIST 11/24/2024 11:08 AM SOURCING SPECIALIST us Preethi Godoy BUYER INTERN LAB BLOOD ORDERABLES Final Resul t Performing Organization Address [facility] de Phone Number TRAVIS BROWNLEE [address] [address] [facility] [place] [address] * (ABNORMAL) Basic metabolic panel (11/23/2024 1:22 PM SOURCING SPECIALIST) Pathologist [facility] Sodium 141 135 - 145 mmol/L Potassium, pl 3.6 3.3 - 4.9 mmol/L [facility] Chloride 109 97 - 110 mmol/L [facility] CO2 21(L) 22 - 32 mmol/L [facility] Anion gap 11 2 - 15 mmol/L [facility] BUN 18 6 - 25 mg/dL [facility] Creatinine 1.97(H) 0.80 - 1.30 mg/dL [facility] Glucose 75 70 - 199 mg/dL [facility] Comment: Interpretive Data Fasting glucose >/= [...] 2022. Calcium 8.1(L) 8.5 - 10.3 mg/dL [facility] Blood 11/23/2024 1:22 PM SOURCING SPECIALIST 11/24/2024 11:08 AM SOURCING SPECIALIST us Preethi Godoy BUYER INTERN LAB BLOOD ORDERABLES Final Resul t [facility] [address] Department [place] [address] * XR Chest Pa Lateral 2 Views (11/16/2024 2:07 PM SOURCING SPECIALIST) Anatomical Region Laterality Modality Body, Chest N/A Digital Radiogra phy 11/16/2024 3:45 PM SOURCING SPECIALIST Narrative 11/16/2024 3:51 PM SOURCING SPECIALIST EXAM DESCRIPTION: XR CHEST PA LATERAL 2 [...] Jeffery Dawkins M.D. MJ T: Report ID: [id number] Reading Location: [id number] Procedure Note Jeffery Dawkins MD - 11/16/2024 [...] signed by Jeffery CRUMP T: Report ID: [id number] Reading Location: [id number] Mandy TOWNSEND IMG XR PROCEDURES Final Result * (ABNORMAL) Influenza A/B, RSV, and COVID-19 PCR Nasopharyngeal (11/14/2024 11:00 AM SOURCING SPECIALIST) COVID-19 RNA Negative Negative [facility] Influenza A RNA Negative Negative CERNER Influenza B RNA Negative Negative [facility] RSV RNA Positive(A) Negative [facility] Comment: Interpretive data: Testing performed by [facility]. This test is performed using the evolso Xpert Xpress CoV-2/Flu/RSV plus assay. This is a multiplex, real-time reverse transcriptase PCR assay intended for the qualitative detection of nucleic acid from SARS-CoV-2, influenza A, influenza B, and respiratory syncytial virus. This assay has been cleared by the [place] Food and Drug administration. The performance characteristics have been verified by the [facility]. Results must be considered in the clinical context, and a negative result does not rule out infection. Interpretive Data last revised 2023 Nasopharyngeal 11/14/2024 11 :00 AM SOURCING SPECIALIST 11/14/2024 2:41 PM SOURCING SPECIALIST Narrative [facility] - 11/14/2024 3:32 PM SOURCING SPECIALIST Is the Patient experiencing symptoms consistent with COVID?->Yes M[facility] LAB MICROBIOLOGY - GENER AL ORDERABLES Final Result Performing Organization Address City/[facility]/ZIP Co de Phone Number [facility] [address] Department [place] [address] * POC Influenza A/B, COVID-19 antigen (11/14/2024 10:47 AM SOURCING SPECIALIST) Influenza A Ag, POC Negative Negative [facility] Influenza B Ag, POC Negative Negative [facility] COVID-19 Ag POC Presumptive Negative Presumptive Negative, Invalid [facility] Nasal 11/14/2024 10:4 7 AM SOURCING SPECIALIST Mandy TOWNSEND POINT OF CARE TEST ORDER MANJINDER Final Result Performing Organization Address City/[facility]/ZIP Co de Phone Number [address] * Surgical pathology (10/21/2024 11:18 AM SOURCING SPECIALIST) Tissue specimen (specimen) (Ileum, Biopsy) 10/21/2024 11:18 AM SOURCING SPECIALIST Tissue specimen (specimen) (Colon, Biopsy) 10/21/2024 11:31 AM SOURCING SPECIALIST Narrative [facility] - 10/22/2024 11:22 AM SOURCING SPECIALIST EPIC results best viewed via link to PDF [facility] Ambreen Bello Laboratory of [place] [address] Note to Patients: This report may contain [...] Gender: M : 1945 (Age: 79) Address: [address] [place], [place] [address] Hospital #: [id number] Taken:10/21/2024 Received:10/21/2024 Reported: 10/22/2024 Patient Type: [facility] Service: Gastro Location: Physician(s): Edmund [...] or granulomas - No dysplasia or malignancy [facility]/10/22/2024 11:22 By this signature, I attest [...] Surgical Pathology and Flow Cytometry Departments at [facility] as part of an ongoing quality improvement coordinator program and in compliance with federally mandated [...] Surgical Pathology and Flow Cytometry Departments of [facility]. It has not been cleared or approved by the U. S. Food and Drug Administration. IMAGES AND SCANNED DOCUMENTS, IF INCLUDED, ONLY VIEWABLE IN PDF VERSION OF REPORT Kath Shepherd MD LAB PATHOLOGY ORDERABLES Laly mckenzie Result PATHOLOGY [facility] 3rd Floor [place], [place] [phone] * Colonoscopy (10/21/2024 10:56 AM SOURCING SPECIALIST) Anatomical Region Laterality Modality Other Narrative Procedure Note Kath Shepherd MD - 10/21/2024 10:56 AM CST [facility] ENDOSCOPY [facility] Patient Name: Aziza Loya Procedure Date: 10/21/2024 10:56 AM Date of : 1945 Admit Type: Outpatient Age: 79 Gender: Male Attending MD: Kath Shepherd M.D. Room: [facility] ENDOSCOPY ROOM 3 Note Status: Addendum Procedure: Colonoscopy Indications: Disease activity assessment of [...] scope was passed under direct vision.The PC [id number] endoscope was introducedthrough the anus and [...] 10/21/2024 11:56:53 AM . Number of Addenda: 1 Note Initiated On: 10/21/2024 10:56 AM Addendum Number: 1 Addendum Date: 12/30/2024 8:27:35 AM I was present and participated during the entire procedure, including non-biswas portions. Electronically signed by Kath Shepherd MD Kath Shepherd M.D. 12/30/2024 8:27:47 AM . us Kath Shepherd MD ENDOSCOPY PROCEDURES Edited R esult - Final * CTA Abdomen Pelvis (02/18/2024 12:14 PM [...] signed by Steven RAJPUT T: Report ID: [id number] Reading Location: [id number] Procedure Note Steven Ruano MD - 02/24/2024 [...] signed by Steven RAJPUT T: Report ID: [id number] Reading Location: [place] [address] PROCEDURES Final Res [...] MICROBIOLOGY - GEN ERAL ORDERABLES Final Result [facility] [address] Department [place] [address] from Last 3 Months or Most Recently Relevant to Health Maintenance Insurance [facility]IC[facility] MEDICARE [facility]IC[facility] MEDICARE [facility] MEDICARE [facility] Advance Directives For more information, please contact: [phone] * Full Code (Latest Code Status on [...] 10:45 AM 05/17/2022 5:55 PM Care Teams Joy Operator Relationship Specialty Start Date End Date Preethi Godoy NP [address] [address] PCP - General Family Medicine 08/25/24 Kath Shepherd MD [address] [place] [address] Consulting Physician Gastroenterology 07/22/19 Peter Ya MD [address] [place] [address] Sheet Rock Applicator Cardiology 07/22/19 Aziza Ledesma MD [address] [place] [address] Consulting Physician Neurology 07/22/19 Joshua Butterfield MD [address] [facility] [address] [place] [address] Consulting Physician Urology 07/03/23 Jeffery Bustillos MD [address] [facility] [address] [place] [address] Consulting Physician Cardiovascular Disease 02/06/24 Shimon Schofield MD [address] [address] Consulting Physician Vascular Surgery 02/06/24
--- OUTSIDE RECORDS SUMMARY | 2024-12-30 12:28 | XMS_ITS | CONTINUITY OF CARE DOCUMENT ---
Author Name harshal caputo Address Unknown Organization [facility] Address [address] [place] [address] Phone [phone] Care Team Providers Care Dealer Development Manager Name Role Phone Yuko LARA, Mathew Unavailable [phone] NADIA KWON MD Unavailable DOYLE LARA, NADIA Unavailable PROBLEMS Condition Status Date Provider Notes PVD active Mathew Huntley MD CAD s/p CABG active Mathew Huntley MD HTN essential active Mathew Huntley MD ENCOUNTERS Date Type Provider Location Encounter Diag nosis - In-person encounter Office Visit Mathew Huntley MD [facility] PVDHTN essentialCAD s/p CABG VITAL SIGNS [...] Payer name Policy type / Coverage type Pedro red green party ID [employer] insurance company [id number] [place] [employer] Medicare [id number] ADVANCE DIRECTIVES Name Date DISCUSSED - NO [...] Name Provider Procedure Notes S tatus SNOMED-CT: [id number] Physical Exam, Performed: Pulse Exam of Foot Mathew Huntley MD completed EKG Mathew Huntley MD completed SNOMED-CT: [id number] Current Medications Documented Mathew Huntley MD completed
--- OUTSIDE RECORDS SUMMARY | 2024-12-30 12:28 | XMS_ITS | Encounter Summary ---
Author Organization [facility] Address [address] [place] [address] Care Team Providers Care Hand Launderer Name Role Phone Kath Shepherd MD Unavailable [phone] Peter Ya MD Unavailable [phone] Vitaly Ledesma MD Unavailable [phone] Joshua Butterfield MD Unavailable [phone] Jeffery Bustillos MD Unavailable [phone] Shimon Schofield MD Unavailable Preethi Godoy NP Primary Care Provider [phone] Encounter Details Date Type Department Care Team (Late st Contact Info) Description 11/24/2024 Results Follow-Up [facility] Primary Care at [address] [address] Preethi Godoy NP [address] [place] [address] [address] [place] [address] Social History Tobacco Use Types [...] on file 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 Gender Identity Not on file Sexual Orientation Not on file 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 Start Date Job End Date 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 [employer] Not on file Not on file Not on file documented as of this encounter Plan of Treatment Not on file documented as of this encounter Visit Diagnoses Not on filedocumented in this encounter Care Teams Hand Launderer Relationship Specialty Start Date End Date Preethi Godoy NP [address] [facility] [address] [place] [address] PCP - General Family Medicine 08/25/24 Kath Shepherd MD [address] [place] [address] Consulting Physician Gastroenterology 07/22/19 Peter Ya MD [address] [place] [address] Corporate Director Cardiology 07/22/19 Vitaly Ledesma MD [address] [place] [address] Consulting Physician Neurology 07/22/19 Joshua Butterfield MD [address] [place] [address] Consulting Physician Urology 07/03/23 Jeffery Bustillos MD [address] [facility] [address] [address] Consulting Physician Cardiovascular Disease 02/06/24 Shimon Schofield MD [address] [facility] [address] [place] [address] Consulting Physician Vascular Surgery 02/06/24 documented as of this encounter
--- OUTSIDE RECORDS SUMMARY | 2024-12-30 12:28 | XMS_ITS | Clinical Summary ---
Author Organization [facility] Address [address] [place] [address] Care Team Providers Care Grinder Watch [employer] Name Role Phone Unavailable Primary Care Provider [...] Vaccine ( - 2023-2 5 season) 2024 Meningococcal B Vaccine Aged Out No l onger eligible based on patient's age to complete this topic Meningococcal Vaccine Aged Out No lorena cher eligible based on patient's age to complete this topic RSV Immunizations Under 20 Months Aged Out No longer eligible based on patient's age to complete this topic
--- OUTSIDE RECORDS SUMMARY | 2024-12-30 12:28 | XMS_ITS | Clinical Summary ---
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 Name Role Phone Kath Shepherd MD Unavailable [phone] Peter Ya MD Unavailable Aziza Ledesma MD Unavailable [phone] Joshua Butterfield MD Unavailable [phone] Jeffery Bustillos MD Unavailable [phone] Shimon Schofield MD Unavailable Preethi Godoy NP Primary Care Provider [phone] Allergies No known active allergies Medications coenzyme Q10 10 mg capsule Take 2 capsules (20 mg total) by mouth every morning Active myybz-4-tdx-ep a-dpa-fish oil 1,050-1,200 mg capsule Take 1 [...] mouth 2 (two) times a day 10/08/19 023 Discontinued irbesartan (AVAPRO) 150 mg tablet [...] Route Frequency Start Date End Date Status [facility] BMS-527845/placebo (/[id number]) capsule 4 capsuleIndications:Crohn' s disease of both small and large intestine with other complication (HCC) 4 capsule oral 2 times daily 05/21/2022 Active [facility] BMS-791260/placebo (/[id number]) capsule 4 capsuleIndications:Crohn' s disease of both small and large intestine with other complication (HCC) 4 capsule oral 2 times daily 06/18/2022 Active [facility] BMS-664715/placebo (/[id number]) capsule 4 capsuleIndications:Crohn' s disease of both small and large intestine with other complication (HCC) 4 capsule oral 2 times daily 07/09/2022 Active [facility] BMS-043978/placebo (/[id number]) capsule 4 capsuleIndications:Crohn' s disease of both small and large intestine with other complication (HCC) 4 capsule oral 2 times daily 08/07/2022 Active [facility] BMS-277148/placebo (/[id number]) capsule 4 capsuleIndications:Crohn' s disease of both small and large intestine with other complication (HCC) 4 capsule oral 2 times daily 09/19/2022 Active [facility] BMS-963892/placebo (/[id number]) capsule 4 capsuleIndications:Crohn' s disease of both [...] modification Assessment & Plan (10/03/2023 1:12 PM XRAY TECH): Chronic. Due to prior peripheral arterial disease. [...] urologist Assessment & Plan (10/03/2023 1:12 PM XRAY TECH): Chronic. Continue medication care per Urology Assessment & Plan (07/03/2023 5:22 PM CDT): Follows with [facility] [place] Dr. Butterfield. Patient on finasteride and does intermittent straight catheterization Protein-calorie malnutrition, mild 07/03/2023 Overview (07/03/2023): Patient with low BMI. Less protein level was low. Monitor weight Assessment & Plan (02/06/2024 4:55 PM CDT): Patient has had borderline protein calorie malnutrition. Monitor his protein levels on labs. Encourage adequate nutrition. Avoid additional weight loss Assessment & Plan (10/03/2023 1:12 PM XRAY TECH): Chronic. BMI remains at the lower end arrange. Encouraged adequate nutrition. Monitor History of gout 07/03/2023 Assessment & Plan (02/06/2024 4:55 PM CDT): Chronic. Denies history of recent flares. Continue allopurinol for prophylaxis. Check uric acid Assessment & Plan (10/03/2023 1:12 PM XRAY TECH): Chronic. Denies any history of gout in [...] 03/14/2023 Assessment & Plan (10/03/2023 1:13 PM XRAY TECH): Chronic. May occasionally increase in size. Minimal pain. Has deferred elective repair in the past Persistent atrial fibrillation 12/04/2021 Assessment & Plan (11/23/2024 1:36 PM XRAY TECH): Rate controlled in office, continuing follow up with Cardiology. Assessment & Plan (03/01/2024 7:51 AM CDT): Stable continue metoprolol. Assessment & Plan (02/06/2024 4:55 PM CDT): Chronic. Controlled rate with metoprolol. Continue. Continue aspirin for stroke prophylaxis Assessment & Plan (10/03/2023 1:12 PM XRAY TECH): Chronic. Continue risk factor modification. Continue ASA [...] Monitor Assessment & Plan (10/03/2023 1:11 PM XRAY TECH): Chronic. Denies significant worsening. No agitation recently. [...] They denies significant agitation Cerebral amyloid angiopathy ([facility] 02/15/2020 Assessment & Plan (02/06/2024 4:54 PM CDT): Chronic. Memory has worsened slightly in the last year. He does have some fluctuations at times. No real agitation. Target good blood pressure control. Continue aspirin for his other issues. Would be cautious with more aggressive anticoagulation given history of amyloid angiopathy Assessment & Plan (10/03/2023 1:11 PM XRAY TECH): Chronic. Denies any progression of symptoms Assessment & Plan (07/03/2023 5:18 PM CDT): Chronic. Control blood pressure and modify risk factors as able. Continue aspirin given AFib but would be cautious with stronger anticoagulants given increased bleeding risk with cerebral amyloid angiopathy Peripheral artery disease 09/10/2019 Overview (09/10/2019): Added automatically from request for surgery [id number] Assessment & Plan (09/03/2024 10:57 AM XRAY TECH): Stable lower extremity occlusive disease. Continue risk [...] duplex. Assessment & Plan (10/03/2023 1:11 PM XRAY TECH): Chronic. Denies recent claudication symptoms. Continue ASA, statin and Pletal Assessment & Plan (07/03/2023 5:22 PM CDT): Chronic. 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 Denies current sores on his feet. Follows with Podiatry in [place]. On cilostazol Iron deficiency anemia due to [...] 02/17/2019 Assessment & Plan (11/23/2024 1:35 PM XRAY TECH): BP normal in office, continuing current regimen. [...] dehydrate Assessment & Plan (10/03/2023 1:10 PM XRAY TECH): Chronic. Blood pressure controlled. Continue current prescription [...] (01/26/2019): Added automatically from request for surgery [id number] Assessment & Plan (02/06/2024 4:52 PM CDT): Chronic. Disease has been stable. Minimal symptoms. He does have to be cautious with eating too many fruits and vegetables as he notes this does cause some GI distress. He remains controlled with Skyrezi and hydroxychloroquine. He will continue Assessment & Plan (10/03/2023 1:10 PM XRAY TECH): Chronic. Symptomatically improved per patient. Continue medication and care per GI Assessment & Plan (07/03/2023 5:20 PM CDT): Chronic. Follows with Gastroenterology. On scar oz and sulfasalazine. Continue medication and care per them CAD (coronary artery disease) 12/04/2018 Assessment & Plan (09/03/2024 10:57 AM XRAY TECH): Stable continue ASA and Lasix Assessment & Plan (02/06/2024 4:51 PM CDT): Chronic. Denies chest pain. Continue risk factor modification with statin, aspirin, blood pressure control. Target LDL less than 70 Assessment & Plan (10/03/2023 1:10 PM XRAY TECH): Chronic. Denies chest pain. Follows with cardiology. [...] 12/30/2017 Assessment & Plan (08/25/2024 4:06 PM XRAY TECH): Updated labs ordered, Hemoglobin was 9 in [...] infusions Assessment & Plan (10/03/2023 1:10 PM XRAY TECH): Chronic. Follows with GI and Hematology. Has received iron infusions. Often does B12 injections Assessment & Plan (07/03/2023 5:15 PM CDT): Chronic. Follows with GI and Hematology. Received iron infusions Hypercholesterolemia 02/05/2011 Assessment & Plan (09/03/2024 10:57 AM XRAY TECH): Stable continue statin therapy. Assessment & Plan (03/01/2024 7:50 AM CDT): Stable continue statin therapy. Assessment & Plan (02/06/2024 4:53 PM CDT): Chronic. Tolerates atorvastatin. Continue. Check cholesterol level and adjust for an LDL goal of at least less than 70 with optimal less than 55 Assessment & Plan (10/03/2023 1:10 PM XRAY TECH): Chronic. Tolerates current prescription medication. Continue Assessment [...] (05/29/2021): Added automatically from request for surgery [id number] Crohn's disease with rectal bleeding 12/10/2018 07/03/2023 Overview (12/10/2018): Added automatically from request for surgery [id number] Peripheral vascular disease 02/13/2017 07/03/2023 Gastrointestinal hemorrhage 07/03/2023 Acute renal failure 07/03/20 23 Crohn's disease of colon with rectal bleeding 07/03/2023 Assessment & Plan (12/04/2021 1:34 PM CDT): Has upcoming endoscopy. Encounters Date Type Department Care Team Description 11/29/2024 Results Follow-Up [facility] Primary Care at [address] [phone] Preethi Godoy, DRY KILN OPERATOR HELPER Pulmonary nodule 1 cm or greater in diameter (Primary Dx) 11/29/2024 Orders Only [facility] Primary Care at [address] [phone] Preethi Godoy, DRY KILN OPERATOR HELPER Abnormal CXR; Pneumonia of both lungs due to infectious organism, unspecified part of lung; Cough, unspecified type; Fever, unspecified fever cause 11/26/2024 Orders Only [facility] Primary Care at [address] [phone] Preethi Godoy, DRY KILN OPERATOR HELPER 11/26/2024 Telephone [facility] Primary Care at [address] [phone] Preethi Godoy DRY KILN OPERATOR HELPER Medical Question/Miscellaneo us 11/26/2024 Orders Only [facility] Primary Care at [address] [phone] Preethi Godoy DRY KILN OPERATOR HELPER 11/26/2024 Telephone [facility] Primary Care at [address] [phone] Preethi Godoy NP Symptom Based Call 11/24/2024 Results Follow-Up [facility] Primary Care at [address] [phone] Preethi Godoy DRY KILN OPERATOR HELPER 11/23/2024 1:30 PM XRAY TECH Lab [facility] Outpatient Lab at [address] [phone] Pneumonia due to infectious organism, unspecified laterality, unspecified part of lung (Primary Dx) 11/23/2024 1:30 PM XRAY TECH Ancillary Procedure [facility] Imaging at [address] [phone] Pneumonia due to infectious organism, unspecified laterality, unspecified part of lung 11/23/2024 1:22 PM XRAY TECH - 11/23/2024 11:59 PM XRAY TECH Hospital Encounter [address] [address] Benign hypertension with stage 3a chronic kidney disease (HCC); Iron deficiency anemia due to chronic blood loss Discharge Disposition: Discharge to home or self care 11/23/2024 12:30 PM XRAY TECH Office Visit [facility] Primary Care at [address] [phone] Preethi Godoy NP Pneumonia due to infectious organism, unspecified laterality, unspecified part of lung (Primary Dx); Iron deficiency anemia due to chronic blood loss; Benign hypertension with stage 3a chronic kidney disease (HCC); Persistent atrial fibrillation (HCC) 11/16/2024 2:00 PM XRAY TECH Ancillary Procedure [facility] Imaging at [address] [phone] Acute cough 11/16/2024 Orders Only [facility] Convenient Care at [address] [phone] Gladys Valdovinos NP Lower respiratory infection (e.g., bronchitis, pneumonia, pneumonitis, pulmonitis) (Primary Dx) 11/14/2024 11:00 AM XRAY TECH - 11/14/2024 11:59 PM XRAY TECH Hospital Encounter [address] [address] Acute cough Discharge Disposition: Discharge to home or self care 11/14/2024 10:00 AM XRAY TECH Office Visit [facility] at [address] [phone] Mandy Hernandez PA Acute cough (Primary Dx) 11/14/2024 Results Follow-Up [facility] Care at [address] [phone] Mandy Hernandez PA 11/10/2024 Orders Only [facility] Primary Care at [address] [phone] Preethi Godoy NP 11/03/2024 Orders Only [facility] Gastroenterology [address] [facility] [address]th [place] [address] Kath Shepherd MD 10/25/2024 Telephone [facility] Gastroenterology [address] [facility] 12th [place] [address] [place] [address] Jeannine Newman, TEDDY Med Management (Derick PAP for 2024) 10/21/2024 10:58 AM XRAY TECH Anesthesia Event [facility] [place] [address] [facility] [address] [place] [address] Danyell Maher MD 10/21/2024 10:30 AM XRAY TECH - 10/21/2024 11:15 AM XRAY TECH Surgery [facility] [place] [address] [facility] [address] [place] [address] Kath Shepherd MD COLON BIOPSY 10/21/2024 9:15 AM XRAY TECH - 10/21/2024 12:33 PM XRAY TECH Hospital Encounter [facility] [place] [id number] [facility] [address] [place] [address] Kath Shepherd MD Crohn's disease of both small and large intestine with other complication (HCC) Discharge Disposition: Discharge to home or self care 10/20/2024 Telephone [facility] Primary Care at [address] [phone] Preethi Godoy, DONALD Medical Question/Miscellaneo us 10/14/2024 Telephone [facility] [address] [place] [phone] Stacey Crane, RN 10/14/2024 Telephone [facility] [address] [place] [phone] Stacey Crane, RN 10/14/2024 Telephone [facility] [address] [place] [phone] Stacey Crane, RN GI PROCEDURE 7 DAY PRE CALL from Last 3 Months Immunizations Immunization Administration [...] Neg Hx Relation Name Status Comments Father [place] & CV[place] () age 76 Mother Sister Social History Tobacco Use Types Packs/Day Years Used Date Smoking Tobacco: Former Cigarettes 1 29 1 962 - 1991 Smokeless Tobacco: Never Tobacco Cessation:Counseling Given: Not [...] on file 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 2:24 AM XRAY TECH Gender Identity Not on file Sexual Orientation Not on file 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 [employer] Not on file Not on file Not on file Obstetrics History Last Filed Vital Signs Vital Sign Reading Time Taken Comments Blood Pressure 120/60 11/23/2024 12:30 PM XRAY TECH Pulse 80 11/23/2024 12:30 PM XRAY TECH Temperature 36.4 C (97.5 F) 11/23/2024 12:30 PM XRAY TECH Respiratory Rate 20 11/14/2024 10:16 AM XRAY TECH Oxygen Saturation 99% 11/14/2024 10:16 AM XRAY TECH Inhaled Oxygen Concentration - - Weight 64 kg (141 lb) 11/23/2024 12:30 PM XRAY TECH Height 177.8 cm (5' 10 ) 11/23/2024 12:30 PM XRAY TECH Body Mass Index 20.23 11/23/2024 12:30 PM XRAY TECH Plan of Treatment Health Maintenance Due Date Last Done Comments Pneumococcal vaccine 65+ (2 of 2 - PCV) 08/25/2015 08/25/2014 Zoster Vaccine (2 of 3) 11/28/2015 10/03/2015, 09/23 Covid-19 Vaccine (4 - 2023-2 5 season) 2024 08/06/2021, 12/01/2020, 11/09/2020 Well Visit 65+ 02/05/2025 02/06/2024 Influenza Vaccine (Season Ended) 2025 07/03/2023, 07/05/2022, 08/06/2021, Additional history exists Fall Risk Assessment 10/21/2025 10/21/2024, 08/25/2024, 05/12/2024, [...] Screening Discontinued Medical Devices Implanted Type Area Etiquette Coach Device Identifier Shelf Expiration Date Model / Serial / Lot Customcells Araceli [id number] Synergy 3.5mm 24mm 144cm Radiopaque 1 Access Port Inflation Lumen - [id number] - [id number] Implanted:Qty: 1 on 03/26/2019 by Alban Santana MD at [facility] [employer]eli 12/09/2020 [id number] [facility] / [id number] / [id number] Procedures Procedure Name Priority Date/Time Associated Diagnosis Comments NM BRAIN IMAGING SPECT/CT Schedule Routine, Read Routine (OP Routine) 11/28/2024 10:49 AM CDT XR CHEST 2 VIEWS W APICAL LORDOTIC 3 VIEWS Schedule Routine, Read Routine (OP Routine) 11/28/2024 10:[address] CHEST WO CONTRAST Schedule Routine, Read Routine (OP Routine) 11/26/2024 10:46 AM XRAY TECH Abnormal CXR Pneumonia of both lungs due to infectious organism, unspecified part of lung Cough, unspecified type Fever, unspecified fever cause XR CHEST PA LATERAL 2 VIEWS Schedule Routine, Read Routine (OP Routine) 11/23/2024 1:30 PM XRAY TECH Pneumonia due to infectious organism, unspecified laterality, unspecified part of lung EGFR Routine 11/23/2024 1:22 PM XRAY TECH Benign hypertension with stage 3a chronic kidney disease (HCC) DIFFERENTIAL AUTO Routine 11/23/2024 1:2 2 PM XRAY TECH Iron deficiency anemia due to chronic blood loss Benign hypertension with stage 3a chronic kidney disease (HCC) CBC WITH AUTO DIFFERENTIAL Routine 11/23/2024 1:22 PM XRAY TECH Iron deficiency anemia due to chronic blood loss Benign hypertension with stage 3a chronic kidney disease (HCC) IRON Routine 11/23/2024 1:22 PM XRAY TECH Iron deficiency anemia due to chronic blood loss BASIC METABOLIC PANEL Routine 11/23/2024 1:22 PM XRAY TECH Benign hypertension with stage 3a chronic kidney disease (HCC) XR CHEST PA LATERAL 2 VIEWS Schedule YULIANA, Read YULIANA (Appt Today, Awaiting Results) 11/16/2024 2:07 PM XRAY TECH Acute cough INFLUENZA A/B, RSV, AND COVID-19 PCR Routine 11/14/2024 11:00 AM XRAY TECH Acute cough POC INFLUENZA A/B, COVID-19 ANTIGEN Routine 11/14/2024 10:47 AM XRAY TECH Acute cough SURGICAL PATHOLOGY Routine 10/21/2024 11 :18 AM XRAY TECH Crohn's disease of both small and large intestine with other complication (HCC) COLON BIOPSY 10/21/2024 10:58 AM XRAY TECH Crohn's disease of both small and large intestine with other complication (HCC) COLONOSCOPY 10/21/2024 10:56 AM XRAY TECH CTA ABDOMEN PELVIS W WO CONTRAST Schedule [...] Modality Head and Neck N/A Nuclear Medicine Historical Provider IMFei NM PROCEDURES Final R esult * XR Chest 2 Views W Apical Lordotic 3 Views (11/28/2024 10:48 AM CDT) Anatomical Region Laterality Modality Body, Chest N/A Radiographic Mariangel ging Historical Provider IMFei XR PROCEDURES Final R esult * CT Chest WO Contrast (11/26/2024 10:46 AM XRAY TECH) Anatomical Region Laterality Modality Body N/A Computed Tomogra phy Preethi Godoy NP IMG CT PROCEDURES Final Result * XR Chest PA Lateral 2 Views (11/23/2024 1:30 PM XRAY TECH) Anatomical Region Laterality Modality Body, Chest N/A Digital Radiogra phy 11/26/2024 2:09 PM XRAY TECH Narrative 11/26/2024 2:11 PM XRAY TECH EXAM DESCRIPTION: XR CHEST PA LATERAL 2 [...] bilateral pleural effusion with adjacent airspace opacities, ycdej-swxukus-lqsj-left. Right mid chest linear density , linear [...] Buck Oleary D.O. AP T: Report ID: [id number] Reading Location: [place] [address] Procedure Note Buck Oleary, DO - 11/26/2024 [...] Small bilateral pleural effusionwith adjacent airspace opacities, upiin-dptpicd-zkjj-left. Right mid chestlinear density , linear atelectasis [...] signed by Buck DOUGLAS T: Report ID: [id number] Reading Location: [place] [address] us Preethi Godoy NP IMG XR PROCEDURES Final Result * (ABNORMAL) eGFR (11/23/2024 1:22 PM XRAY TECH) [facility] eGFR 34(L) >=60 mL/min/1. 73 m2 Comment: [...] last reviewed 2021. Blood 11/23/2024 1:22 PM XRAY TECH 11/24/2024 11:14 AM XRAY TECH us Preethi Godoy NP LAB BLOOD ORDERABLES Final Resul t [facility] [address] Department [place] [address] * (ABNORMAL) Differential, auto (11/23/2024 1:22 PM XRAY TECH) Neutrophil abs 6.3 1.5 - 6.5 K/cumm Imm gran abs 0.0 0.0 - 0.1 K/cumm [facility] Lymphocyte abs 0.7(L) 0.8 - 3.3 K/cumm [facility] Monocyte abs 1.0(H) 0.2 - 0.8 K/cumm [facility] Eosinophil abs 0.2 0.0 - 0.5 K/cumm [facility] Basophil abs 0.1 0.0 - 0.1 K/cumm [facility] Neutrophil pct 75.6 % [facility] Comment: Interpretive Data Percent cell count reference ranges are not reported, since discordance with absolute values may lead to misinterpretation of CBC data. Current Interpretive Data was last revised on 2017. Imm gran pct 0.5 % [facility] Comment: Interpretive Data Percent cell count reference ranges are not reported, since discordance with absolute values may lead to misinterpretation of CBC data. Current Interpretive Data was last revised on 2017. Lymphocyte pct 8.8 % [facility] Comment: Interpretive Data Percent cell count reference ranges are not reported, since discordance with absolute values may lead to misinterpretation of CBC data. Current Interpretive Data was last revised on 2017. Monocyte pct 11.6 % [facility] Comment: Interpretive Data Percent cell count reference ranges are not reported, since discordance with absolute values may lead to misinterpretation of CBC data. Current Interpretive Data was last revised on 2017. Eosinophil pct 2.9 % [facility] Comment: Interpretive Data Percent cell count reference ranges are not reported, since discordance with absolute values may lead to misinterpretation of CBC data. Current Interpretive Data was last revised on 2017. Basophil pct 0.6 % [facility] Comment: Interpretive Data Percent cell count reference ranges are not reported, since discordance with absolute values may lead to misinterpretation of CBC data. Current Interpretive Data was last revised on 2017. Blood 11/23/2024 1:22 PM XRAY TECH 11/24/2024 11:08 AM XRAY TECH us Preethi Godoy NP LAB BLOOD ORDERABLES Final Resul t [facility] [address] [place] [address] * (ABNORMAL) CBC with auto differential (11/23/2024 1:22 PM XRAY TECH) WBC 8.4 3.8 - 9.9 K/cumm Hgb 9.7(L) 13.0 - 17.5 g/dL [facility] Hct 31.3(L) 38.9 - 50.3 % [facility] CH Plt 179 150 - 400 K/cumm [facility] MPV 10.2 9.1 - 12.3 fL [facility] RBC 3.12(L) 4.30 - 5.80 M/cumm [facility] MCV 100.3(H) 81.3 - 96.4 fL [facility] MCH 31.1 27.1 - 33.3 pg [facility] MCHC 31.0(L) 32.3 - 35.7 g/dL [facility] RDW CV 17.2(H) 11.1 - 14.9 % [facility] RDW SD 64.2(H) 35.7 - 48.1 fL [facility] NRBC abs 0.00 0.00 - 0.01 K/cumm [facility] Blood 11/23/2024 1:22 PM XRAY TECH 11/24/2024 11:08 AM XRAY TECH us Preethi Godoy DRY KILN OPERATOR HELPER LAB BLOOD ORDERABLES Final Resul t [facility] [address] [place] [address] * (ABNORMAL) Iron level (11/23/2024 1:22 PM XRAY TECH) Pathologist [facility] Iron 47(L) 50 - 150 mcg/dl Blood 11/23/2024 1:22 PM XRAY TECH 11/24/2024 11:08 AM XRAY TECH us Preethi Godoy DRY KILN OPERATOR HELPER LAB BLOOD ORDERABLES Final Resul t [facility] [address] [place] [address] * (ABNORMAL) Basic metabolic panel (11/23/2024 1:22 PM XRAY TECH) Sodium 141 135 - 145 mmol/L Potassium, [...] 2022. Calcium 8.1(L) 8.5 - 10.3 mg/dL [facility] Blood 11/23/2024 1:22 PM XRAY TECH 11/24/2024 11:08 AM XRAY TECH us Preethi Godoy DRY KILN OPERATOR HELPER LAB BLOOD ORDERABLES Final Resul t [facility] [address] [place] [address] * XR Chest Pa Lateral 2 Views (11/16/2024 2:07 PM XRAY TECH) Anatomical Region Laterality Modality Body, Chest N/A Digital Radiogra phy 11/16/2024 3:45 PM XRAY TECH Narrative 11/16/2024 3:51 PM XRAY TECH EXAM DESCRIPTION: XR CHEST PA LATERAL 2 [...] Jeffery Dawkins M.D. MJ T: Report ID: [id number] Reading Location: [place] [address] Procedure Note Jeffery Dawkins MD - 11/16/2024 [...] Jeffery Dawkins M.D. MJ T: Report ID: [id number] Reading Location: [place] [address] Mandy TOWNSEND IMG XR PROCEDURES Final Result * (ABNORMAL) Influenza A/B, RSV, and COVID-19 PCR Nasopharyngeal (11/14/2024 11:00 AM XRAY TECH) [facility] COVID-19 RNA Negative Negative Influenza A RNA Negative Negative [facility] Influenza B RNA Negative Negative [facility] RSV RNA Positive(A) Negative [facility] Comment: Interpretive data: Testing performed by [facility]. This test is performed using the [employer] Xpert Xpress CoV-2/Flu/RSV plus assay. This is a multiplex, real-time reverse transcriptase PCR assay intended for the qualitative detection of nucleic acid from SARS-CoV-2, influenza A, influenza B, and respiratory syncytial virus. This assay has been cleared by the [place] Food and Drug administration. The performance characteristics have been verified by the [facility]. Results must be considered in the clinical context, and a negative result does not rule out infection. Interpretive Data last revised 2023 Nasopharyngeal 11/14/2024 11 :00 AM XRAY TECH 11/14/2024 2:41 PM XRAY TECH Narrative [facility] - 11/14/2024 3:32 PM XRAY TECH Is the Patient experiencing symptoms consistent with COVID?->Yes Mandy TOWNSEND LAB MICROBIOLOGY - GENER AL ORDERABLES Final Result Performing Organization Address City/[facility]/ZIP Co de Phone Number TRAVIS BROWNLEE [address] [place] [address] * POC Influenza A/B, COVID-19 antigen (11/14/2024 10:47 AM XRAY TECH) Influenza A Ag, POC Negative Negative [facility] Influenza B Ag, POC Negative Negative [facility] COVID-19 Ag POC Presumptive Negative Presumptive Negative, Invalid [facility] 11/14/2024 10:4 7 AM XRAY TECH Mandy TOWNSEND POINT OF CARE TEST ORDER MANJINDER Final Result Performing Organization Address [facility] Phone Number [facility] [address] [place] [address] * Surgical pathology (10/21/2024 11:18 AM XRAY TECH) Tissue specimen (specimen) (Ileum, Biopsy) 10/21/2024 11:18 AM XRAY TECH Tissue specimen (specimen) (Colon, Biopsy) 10/21/2024 11:31 AM XRAY TECH Narrative PATHOLOGY [facility] - 10/22/2024 11:22 AM XRAY TECH EPIC results best viewed via link to PDF [facility] Ambreen Bello [facility] [place] [address] Note to Patients: This report may contain [...] details. SURGICAL PATHOLOGY REPORT FINAL Patient Name: VINCENZOAZIZA Gender: M : 1945 (Age: 79) Address: [address] [place] [id number] [facility] #: [id number] Taken:10/21/2024 Received:10/21/2024 Reported: 10/22/2024 Patient Type: [facility] Service: Gastro Location: Physician(s): Edmund Waterman [...] Pathology and Flow Cytometry Departments at [facility] as part of an ongoing quality assurance consultant program and in compliance with federally mandated [...] Pathology and Flow Cytometry Departments of [facility]. It has not been cleared or approved by the U. S. Food and Drug Administration. IMAGES AND SCANNED DOCUMENTS, IF INCLUDED, ONLY VIEWABLE IN PDF VERSION OF REPORT Kath Shepherd MD LAB PATHOLOGY ORDERABLES Laly l Result PATHOLOGY [facility] 3rd Floor [place], [place] [phone] * Colonoscopy (10/21/2024 10:56 AM XRAY TECH) Anatomical Region Laterality Modality Other Narrative Procedure [...] scope was passed under direct vision.The PC [id number] endoscope was introducedthrough the anus and [...] signed by Steven RAJPUT T: Report ID: [id number] Reading Location: [id number] Procedure Note Steven Ruano MD - 02/24/2024 [...] Steven Ruano M.D. RB T: Report ID: [id number] Reading Location: [place] [address] PROCEDURES Final Res [...] GEN ERAL ORDER[place] [address] [address] [place] [address] from Last 3 Months or Most Recently Relevant to Health Maintenance Insurance [facility] MEDICARE MEDICARE [facility] MEDICARE [facility] MEDICARE [facility] MEDICARE [facility] Advance Directives For more information, please contact: [phone] * Full Code (Latest Code Status on [...] 10:45 AM 05/17/2022 5:55 PM Care Teams Gas Golf Cart Repairer Relationship Specialty Start Date End Date Preethi Godoy NP [address] [facility] [address] [place] [address] PCP - General Family Medicine 08/25/24 Kath Shepherd MD [address] [place] [address] Consulting Physician Gastroenterology 07/22/19 Peter Ya MD [address] [place] [address] Distribution Center Supervisor Cardiology 07/22/19 Aziza Ledesma MD [address] [place] [address] Consulting Physician Neurology 07/22/19 Joshua Butterfield MD [address] [facility] [address] [place] [address] Consulting Physician Urology 07/03/23 Jeffery Bustillos MD [address] [facility] [address] [place] [address] Consulting Physician Cardiovascular Disease 02/06/24 Shimon Schofield MD [address] [facility] 120 [place] [address] Consulting Physician Vascular Surgery 02/06/24
--- OUTSIDE RECORDS SUMMARY | 2024-12-30 12:28 | XMS_ITS | Encounter Summary ---
Author Organization [facility] Address [address] [place] [address] Care Team Providers Care Roofing Layer Name Role Phone John Kimbrough MD Primary Care Provider [phone] Kath Shepherd MD Unavailable [phone] Peter Ya MD Unavailable [phone] Vitaly Ledesma MD Unavailable [phone] Anayeli Lee MD Primary Care Provider Joshua Butterfield MD Unavailable [phone] Jeffery Bustillos MD Unavailable [phone] Shimon Schofield MD Unavailable Preethi Godoy NP Primary Care Provider [phone] Encounter Details Date Type Department Care Team (Late st Contact Info) Description 03/26/2019 Documentation [facility] [address] [place] [address] Kaykay Jason, TEDDY Social History Tobacco Use Types Packs/Day Years Used Date Smoking Tobacco: Former Smokeless Tobacco: Never Alcohol Use Standard Drinks/Week Comments No 0 (1 standard drink = 0.6 oz pur e alcohol) Sex and Gender Information Value Date Recorded Sex Assigned at Not on file 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 2:24 AM PROCESS ARCHITECT Gender Identity Not on file Sexual Orientation Not on file documented as of this encounter Plan of Treatment Not on file documented as of this encounter Visit Diagnoses Not on filedocumented in this encounter Additional Health Concerns Infection Onset Date Last Indicated Resolved Time COVID: Suspected 08/21/2021 08/21/2021 08/21/2021 11:38 AM PROCESS ARCHITECT COVID: Suspected 11/14/2024 11/14/2024 11/14/2024 10:49 AM PROCESS ARCHITECT COVID: Suspected 11/14/2024 11/14/2024 11/14/2024 3:33 PM PROCESS ARCHITECT RSV, droplet 11/14/2024 11/14/2024 11/21/2024 3:07 AM PROCESS ARCHITECT documented as of this encounter Care Teams Roofing Layer Relationship Specialty Start Date End Date John Kimbrough MD [address] [facility] [address] [place] [address] PCP - General 11/08/16 07/02/23 Anayeli Lee MD [address] [place] [address] PCP - General Family Medicine 07/03/23 08/24/24 Preethi Godoy NP 2 [facility] [address] [place], [place] [address] PCP - General Family Medicine 08/25/24 Kath Shepherd MD [address] [place] [address] Consulting Physician Gastroenterology 07/22/19 Peter Ya MD [address] [place] [address] Front End Developer Cardiology 07/22/19 Vitaly Ledesma MD [address] [place] [address] Consulting Physician Neurology 07/22/19 Joshua Butterfield MD [address] [facility] [address] [place] [address] Consulting Physician Urology 07/03/23 Jeffery Bustillos MD [address] [facility] [address] [place] [address] Consulting Physician Cardiovascular Disease 02/06/24 Shimon Schofield MD [address] [facility] 120 [place] [address] Consulting Physician Vascular Surgery 02/06/24 documented as of this encounter
--- OUTSIDE RECORDS SUMMARY | 2024-12-30 12:28 | XMS_ITS | Encounter Summary ---
Author Organization [facility] Address [address] [place] [address] Phone Care Team Providers Care International Accountant Name Role Phone John Kimbrough MD Primary Care Provider [phone] Kath Shepherd MD Unavailable [phone] Peter Ya MD Unavailable [phone] Vitaly Ledesma MD Unavailable [phone] Anayeli Lee MD Primary Care Provider Joshua Butterfield MD Unavailable [phone] Jeffery Bustillos MD Unavailable [phone] Shimon Schofield MD Unavailable Preethi Godoy NP Primary Care Provider Encounter Details Date Type Department Care Team (Late st Contact Info) Description 08/21/2021 Telephone [facility] Oncology [address] [place] [phone] Maribel Shore CPhT Social History Tobacco Use [...] on file 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 2:24 AM MANAGER DOCUMENT CONTROL Gender Identity Not on file Sexual Orientation Not on file 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 Not on file Not on file documented as of this encounter Plan of Treatment Not on file documented as of this encounter Visit Diagnoses Not on filedocumented in this encounter Additional Health Concerns Infection Onset Date Last Indicated Resolved Time COVID: Suspected 08/21/2021 08/21/2021 08/21/2021 11:38 AM MANAGER DOCUMENT CONTROL COVID: Suspected 11/14/2024 11/14/2024 11/14/2024 10:49 AM MANAGER DOCUMENT CONTROL COVID: Suspected 11/14/2024 11/14/2024 11/14/2024 3:33 PM MANAGER DOCUMENT CONTROL RSV, droplet 11/14/2024 11/14/2024 11/21/2024 3:07 AM MANAGER DOCUMENT CONTROL documented as of this encounter Care Teams International Accountant Relationship Specialty Start Date End Date John Kimbrough MD [address] [facility] [address] [place] [address] PCP - General 11/08/16 07/02/23 Anayeli Lee MD [address] [place] [address] PCP - General Family Medicine 07/03/23 08/24/24 Preethi Godoy NP [address] [facility] [address] [place] [address] PCP - General Family Medicine 08/25/24 Kath Shepherd MD [address] [place] [address] Consulting Physician Gastroenterology 07/22/19 Peter Ya MD [address] [place] [address] Nanoelectronics Engineer Cardiology 07/22/19 Vitaly Ledesma MD [address] [place] [address] Consulting Physician Neurology 07/22/19 Joshua Butterfield MD [address] [facility] [address] [place] [address] Consulting Physician Urology 07/03/23 Jeffery Bustillos MD [address] [facility] [address] [place] [address] Consulting Physician Cardiovascular Disease 02/06/24 Shimon Schofield MD [address] [address] Consulting Physician Vascular Surgery 02/06/24 documented as of this encounter
--- OUTSIDE RECORDS SUMMARY | 2025-01-26 12:29 | XMS_ITS | Encounter Summary ---
Author Organization [facility] Address [address] [place] [address] Phone Care Team Providers Care Green End Department Supervisor Name Role Phone John Kimbrough MD Primary Care Provider [phone] Kath Shepherd MD Unavailable [phone] Peter Ya MD Unavailable [phone] Vitaly Ledesma MD Unavailable [phone] Anayeli Lee MD Primary Care Provider Joshua Butterfield MD Unavailable [phone] Jeffery Bustillos MD Unavailable [phone] Shimon Schofield MD Unavailable Preethi Godoy NP Primary Care Provider [phone] Encounter Details Date Type Department Care Team (Late st Contact Info) Description 01/13/[address] 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 Gender Identity Not on file [...] COVID: Suspected 08/21/2021 08/21/2021 08/21/2021 11:38 AM VENEER PRODUCTION 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 COVID: Suspected 11/14/2024 11/14/2024 11/14/2024 10:49 AM VENEER PRODUCTION 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 COVID: Suspected 11/14/2024 11/14/2024 11/14/2024 3:33 PM VENEER PRODUCTION 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 RSV, droplet 11/14/2024 11/14/2024 11/21/2024 3:07 AM VENEER PRODUCTION 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 COVID: Suspected 12/30/2024 12/30/2024 12/30/2024 7:54 PM CDT documented as of this encounter Care Teams Green End Department Supervisor Relationship Specialty Start Date End Date John Kimbrough MD [address] [facility] [address] [place] [address] PCP - General 11/08/16 07/02/23 Anayeli Lee MD [address] [place] [address] PCP - General Family Medicine 07/03/23 08/24/24 Preethi Godoy NP [address] [facility] [address] [place] [address] PCP - General Family Medicine 08/25/24 Kath Shepherd MD [address] [place] [address] Consulting Physician Gastroenterology 07/22/19 Peter Ya MD [address] [place] [address] Installer Soft Top Cardiology 07/22/19 Vitaly Ledesma MD [address] [place] [address] Consulting Physician Neurology 07/22/19 Joshua Butterfield MD [address] [address] Consulting Physician Urology 07/03/23 Jeffery Bustillos MD [address] [address] Consulting Physician Cardiovascular Disease 02/06/24 Shimon Schofield MD [address] [address] Consulting Physician Vascular Surgery 02/06/24 documented as of this encounter
--- OUTSIDE RECORDS SUMMARY | 2025-01-26 12:29 | XMS_ITS | Clinical Summary ---
Author Organization [facility] Address [address] [place] [address] Care Team Providers Care Foundation Engineer Name Role Phone Unavailable Primary Care [...] Td Vaccines ( 1 - Tdap) 1965 Pneumococcal Vaccine: 50+ Ye ars (1 of 1 - PCV) 1996 Zoster Vaccines (1 of 2) 1996 RSV Immunization or 60+ Years (1 - [...]
--- OUTSIDE RECORDS SUMMARY | 2025-01-26 12:29 | XMS_ITS | Encounter Summary ---
Author Organization [facility] Address [address] [place] [address] Care Team Providers Care Oxygen Plant Operator Name Role Phone Kath Shepherd MD Unavailable [phone] Peter Ya MD Unavailable [phone] Vitaly Ledesma MD Unavailable [phone] Joshua Butterfield MD Unavailable [phone] Jeffery Bustillos MD Unavailable [phone] Shimon Schofield MD Unavailable Preethi Godoy NP Primary Care Provider [phone] Encounter Details Date Type Department Care Team (Late st Contact Info) Description 01/01/2025 Results Follow-Up [facility] at [address] [address] Brie Mandel NP [address] [place] [address] [address] [place] [address] Social History Tobacco Use Types [...] on file 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 She reports pt is currently admitted at [facility] for his UTI sxs. documented in this encounter Plan of Treatment Not on file documented as of this encounter Visit Diagnoses Not on filedocumented in this encounter Care Teams Oxygen Plant Operator Relationship Specialty Start Date End Date Preethi Godoy NP [address] [facility] [address] [place] [address] PCP - General Family Medicine 08/25/24 Kath Shepherd MD [address] [place] [address] Consulting Physician Gastroenterology 07/22/19 Peter Ya MD [address] [place] [address] Cigar Packer And Grader Cardiology 07/22/19 Vitaly Ledesma MD [address] [place] [address] Consulting Physician Neurology 07/22/19 Joshua Butterfield MD [address] [facility] [address] [place] [address] Consulting Physician Urology 07/03/23 Jeffery Bustillos MD [address] [facility] [address] [place] [address] Consulting Physician Cardiovascular Disease 02/06/24 Shimon Schofield MD [address] [address] Consulting Physician Vascular Surgery 02/06/24 documented as of this encounter
--- OUTSIDE RECORDS SUMMARY | 2025-01-26 12:29 | XMS_ITS | Encounter Summary ---
Author Organization [facility] Address [address] [place] [address] Phone Care Team Providers Care Generator Technician Name Role Phone John Kimbrough MD Primary Care Provider [phone] Kath Shepherd MD Unavailable [phone] Peter Ya MD Unavailable [phone] Vitaly Ledesma MD Unavailable [phone] Anayeli Lee MD Primary Care Provider Joshua Butterfield MD Unavailable [phone] Jeffery Bustillos MD Unavailable [phone] Shimon Schofield MD Unavailable Preethi Godoy NP [...] on file 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 2:24 AM SIDE LASTER STAPLE Gender Identity Not on file Sexual Orientation Not on file 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 file Not [...] COVID: Suspected 08/21/2021 08/21/2021 08/21/2021 11:38 AM SIDE LASTER STAPLE COVID: Suspected 11/14/2024 11/14/2024 11/14/2024 10:49 AM SIDE LASTER STAPLE COVID: Suspected 11/14/2024 11/14/2024 11/14/2024 3:33 PM SIDE LASTER STAPLE RSV, droplet 11/14/2024 11/14/2024 11/21/2024 3:07 AM SIDE LASTER STAPLE COVID: Suspected 12/30/2024 12/30/2024 12/30/2024 7:54 PM CDT documented as of this encounter Care Teams Generator Technician Relationship Specialty Start Date End Date John Kimbrough MD [address] [facility] [address] [place] [address] PCP - General 11/08/16 07/02/23 Anayeli Lee MD [address] [place] [address] PCP - General Family Medicine 07/03/23 08/24/24 Preethi Godoy NP [address] [facility] [address] [place] [address] PCP - General Family Medicine 08/25/24 Kath Shepherd MD [address] [place] [address] Consulting Physician Gastroenterology 07/22/19 Peter Ya MD [address] [place] [address] Director Of Institutional Sales Cardiology 07/22/19 Vitaly Ledesma MD [address] [place] [address] Consulting Physician Neurology 07/22/19 Joshua Butterfield MD [address] [place] [address] Consulting Physician Urology 07/03/23 Jeffery Bustillos MD [address] [address] Consulting Physician Cardiovascular Disease 02/06/24 Shimon Schofield MD [address] [address] Consulting Physician Vascular Surgery 02/06/24 documented as of this encounter
--- OUTSIDE RECORDS SUMMARY | 2025-01-26 12:29 | XMS_ITS | Continuity of Care Document ---
Author Name [facility] Organization [facility] Care Team Providers Care Regulatory Associate Name Role Phone [facility] Unavailable Unavailable Encounters Combined list of: 1) Encounters from [facility] facilities going backup to the last 18 months, not all [facility] inpatient encounters are included; 2) Encounters from the Department of [facility] facilities going backup to 280 months. Location Location Details Encounter Type Encounter Number Reason For Visit Attending Provider ADM Date DC Date Status Disposition Source [facility] Outpatient Encounter [id number] 07[facility]27 [facility]
--- OUTSIDE RECORDS SUMMARY | 2025-01-26 12:30 | XMS_ITS | Encounter Summary ---
Author Organization [facility] Healthcare Address [address] [place] [address] Care Team Providers Care Media Producer Name Role Phone Kath Shepherd MD Unavailable [phone] Peter Ya MD Unavailable [phone] Vitaly Ledesma MD Unavailable [phone] Joshua Butterfield MD Unavailable [phone] Jeffery Bustillos MD Unavailable [phone] Shimon Schofield MD Unavailable Preethi Godoy NP Primary Care Provider [phone] Encounter Details Date Type Department Care Team (Late st Contact Info) Description 01/23/2025 Results Follow-Up [facility] Medical [facility] Primary Care at [address] [address] Ankit Pascal MD [address] [place] [address] [address] [place] [address] Social History Tobacco Use Types [...] file 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 2:24 AM EMERGENCY DISPATCHER Gender Identity Not on file Sexual Orientation Not on file 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 Not on file Not on file documented as of this encounter Plan of Treatment Not on file documented as of this encounter Visit Diagnoses Not on filedocumented in this encounter Care Teams Media Producer Relationship Specialty Start Date End Date Preethi Godoy NP [address] [facility] [address] [place] [address] PCP - General Family Medicine 08/25/24 Kath Shepherd MD [address] [place] [address] Consulting Physician Gastroenterology 07/22/19 Peter Ya MD [address] [place] [address] Steel Rule Die Maker Apprentice Cardiology 07/22/19 Vitaly Ledesma MD [address] [place] [address] Consulting Physician Neurology 07/22/19 Joshua Butterfield MD [address] [place] [address] Consulting Physician Urology 07/03/23 Jeffery Bustillos MD [address] [facility] [address] [facility] 102 [place] [address] Consulting Physician Cardiovascular Disease 02/06/24 Shimon Schofield MD [address] [facility] 120 [place] [address] Consulting Physician Vascular Surgery 02/06/24 documented as of this encounter
--- OUTSIDE RECORDS SUMMARY | 2025-01-26 12:30 | XMS_ITS | Encounter Summary ---
Author Organization [facility] Address [address] [place] [address] Phone Care Team Providers Care Senior Capital Markets Specialist Name Role Phone John Kimbrough MD Primary Care Provider [phone] Kath Shepherd MD Unavailable [phone] Peter Ya MD Unavailable [phone] Vitaly Ledesma MD Unavailable [phone] Anayeli Lee MD Primary Care Provider Joshua Butterfield MD Unavailable [phone] Jeffery Bustillos MD Unavailable [phone] Shimon Schofield MD Unavailable Preethi Godoy NP Primary Care Provider [phone] Encounter Details Date Type Department Care Team (Late st Contact Info) Description 02/03/2020 Telephone [facility] Gastroenterology [facility] 8th [place] [address] [place] [address] Sherie Yoo, [facility] Social History Tobacco Use Types Packs/Day Years Used Date Smoking Tobacco: Former Smokeless Tobacco: Never Alcohol Use Standard Drinks/Week Comments No 0 (1 standard drink = 0.6 oz pur e alcohol) Sex and Gender Information Value Date Recorded Sex Assigned at Not on file 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 2:24 AM LOOM SETTER Gender Identity Not on file Sexual Orientation Not on file documented as of this encounter Plan of Treatment Not on file documented as of this encounter Visit Diagnoses Not on filedocumented in this encounter Additional Health Concerns Infection Onset Date Last Indicated Resolved Time COVID: Suspected 08/21/2021 08/21/2021 08/21/2021 11:38 AM LOOM SETTER COVID: Suspected 11/14/2024 11/14/2024 11/14/2024 10:49 AM LOOM SETTER COVID: Suspected 11/14/2024 11/14/2024 11/14/2024 3:33 PM LOOM SETTER RSV, droplet 11/14/2024 11/14/2024 11/21/2024 3:07 AM LOOM SETTER COVID: Suspected 12/30/2024 12/30/2024 12/30/2024 7:54 PM CDT documented as of this encounter Care Teams Senior Capital Markets Specialist Relationship Specialty Start Date End Date John Kimbrough MD [address] [facility] [address] [place] [address] PCP - General 11/08/16 07/02/23 Anayeli Lee MD [address] [place] [address] PCP - General Family Medicine 07/03/23 08/24/24 Preethi Godoy NP [address] [facility] [address] [place] [address] PCP - General Family Medicine 08/25/24 Kath Shepherd MD [address] [place] [address] Consulting Physician Gastroenterology 07/22/19 Peter Ya MD [address] [place] [address] Senior Net Software Engineer Cardiology 07/22/19 Vitaly Ledesma MD [address] [place] [address] Consulting Physician Neurology 07/22/19 Joshua Butterfield MD [address] [facility] 200 [place] [address] Consulting Physician Urology 07/03/23 Jeffery Bustillos MD [address] [facility] 102 [place] [address] Consulting Physician Cardiovascular Disease 02/06/24 Shimon Schofield MD [address] [facility] 120 [place] [address] Consulting Physician Vascular Surgery 02/06/24 documented as of this encounter
--- OUTSIDE RECORDS SUMMARY | 2025-01-26 12:30 | XMS_ITS | Encounter Summary ---
Author Organization [facility] Address [address] [place] [address] Care Team Providers Care Steam And Power Superintendent Name Role Phone John Kimbrough MD Primary Care Provider [phone] Kath Shepherd MD Unavailable [phone] Peter Ya MD Unavailable [phone] Vitaly Ledesma MD Unavailable [phone] Anayeli Lee MD Primary Care Provider Joshua Butterfield MD Unavailable [phone] Jeffery Bustillos MD Unavailable [phone] Shimon Schofield MD Unavailable Preethi Godoy NP Primary Care Provider [phone] Encounter Details Date Type Department Care Team (Late st Contact Info) Description 03/26/2019 Documentation [facility] [address] [place] [address] Kaykay Jason, TEDDY Social History Tobacco Use Types Packs/Day Years Used Date Smoking Tobacco: Former Smokeless Tobacco: Never Alcohol Use Standard Drinks/Week Comments No 0 (1 standard drink = 0.6 oz pur e alcohol) Sex and Gender Information Value Date Recorded Sex Assigned at Not on file 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 2:24 AM LODGE OFFICER Gender Identity Not on file Sexual Orientation Not on file documented as of this encounter Plan of Treatment Not on file documented as of this encounter Visit Diagnoses Not on filedocumented in this encounter Additional Health Concerns Infection Onset Date Last Indicated Resolved Time COVID: Suspected 08/21/2021 08/21/2021 08/21/2021 11:38 AM LODGE OFFICER COVID: Suspected 11/14/2024 11/14/2024 11/14/2024 10:49 AM LODGE OFFICER COVID: Suspected 11/14/2024 11/14/2024 11/14/2024 3:33 PM LODGE OFFICER RSV, droplet 11/14/2024 11/14/2024 11/21/2024 3:07 AM LODGE OFFICER COVID: Suspected 12/30/2024 12/30/2024 12/30/2024 7:54 PM CDT documented as of this encounter Care Teams Steam And Power Superintendent Relationship Specialty Start Date End Date John Kimbrough MD [address] [facility] [address] [place] [address] PCP - General 11/08/16 07/02/23 Anayeli Lee MD [address] [place] [address] PCP - General Family Medicine 07/03/23 08/24/24 Preethi Godoy NP 2 [facility] [address] [place] [address] PCP - General Family Medicine 08/25/24 Kath Shepherd MD [address] [place] [address] Consulting Physician Gastroenterology 07/22/19 Peter Ya MD [address] [place] [address] Plate Grainer Cardiology 07/22/19 Vitaly Ledesma MD [address] [place] [address] Consulting Physician Neurology 07/22/19 Joshua Butterfield MD [address] [facility] [address] [facility] 200 [place] [address] Consulting Physician Urology 07/03/23 Jeffery Bustillos MD [address] [place] [address] Consulting Physician Cardiovascular Disease 02/06/24 Shimon Schofield MD [address] [address] Consulting Physician Vascular Surgery 02/06/24 documented as of this encounter"
--- OUTSIDE RECORDS SUMMARY | 2025-01-26 12:30 | XMS_ITS | Encounter Summary ---
Author Organization [facility] Healthcare Address [address] [place] [address] Care Team Providers Care Supervisor Insecticide Name Role Phone Kath Shepherd MD Unavailable [phone] Peter Ya MD Unavailable [phone] Vitaly Ledesma MD Unavailable [phone] Joshua Butterfield MD Unavailable [phone] Jeffery Bustillos MD Unavailable [phone] Shimon Schofield MD Unavailable Preethi Godoy NP Primary Care Provider [phone] Encounter Details Date Type Department Care Team (Late st Contact Info) Description 01/19/2025 Results Follow-Up [facility] Primary Care at [address] [address] Ankit Pascal MD [address] [place] [address] [address] [place] [address] Social History Tobacco Use Types [...] on file 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 2:24 AM 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 Pt did not have any questions. Does message need to be routed? No documented in this encounter Plan of Treatment Not on file documented as of this encounter Visit Diagnoses Not on filedocumented in this encounter Care Teams Supervisor Insecticide Relationship Specialty Start Date End Date Preethi Godoy NP [address] [facility] 130 [place] [address] PCP - General Family Medicine 08/25/24 Kath Shepherd MD [address] [place] [address] Consulting Physician Gastroenterology 07/22/19 Peter Ya MD [address] [place] [address] High Man Cardiology 07/22/19 Vitaly Ledesma MD [address] [place] [address] Consulting Physician Neurology 07/22/19 Joshua Butterfield MD [address] [facility] 200 [place] [address] Consulting Physician Urology 07/03/23 Jeffery Bustillos MD [address] [facility] 102 [place] [address] Consulting Physician Cardiovascular Disease 02/06/24 Shimon Schofield MD [address] [address] Consulting Physician Vascular Surgery 02/06/24 documented as of this encounter
--- OUTSIDE RECORDS SUMMARY | 2025-01-26 12:30 | XMS_ITS | Encounter Summary ---
Author Organization [facility] Address [address] [place] [address] Phone Care Team Providers Care Barbering Teacher Name Role Phone John Kimbrough MD Primary Care Provider [phone] Kath Shepherd MD Unavailable [phone] Peter Ya MD Unavailable [phone] Vitaly Ledesma MD Unavailable [phone] Anayeli Lee MD Primary Care Provider Joshua Butterfield MD Unavailable [phone] Jeffery Bustillos MD Unavailable [phone] Shimon Schofield MD Unavailable Preethi Godoy NP Primary Care Provider [phone] Encounter Details Date Type Department Care Team (Late st Contact Info) Description 08/21/2021 Telephone [facility] Oncology [address] [facility] [address] [place] [id number] Maribel Shore CPhT Social History Tobacco Use [...] on file 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 Gender Identity Not on file Sexual Orientation Not on file 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 Start Date Job End Date 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 [employer] Not on file Not on file Not on file documented as of this encounter Plan of Treatment Not on file documented as of this encounter Visit Diagnoses Not on filedocumented in this encounter Additional Health Concerns Infection Onset Date Last Indicated Resolved Time COVID: Suspected 08/21/2021 08/21/2021 08/21/2021 11:38 AM ATHLETIC TURF WORKER COVID: Suspected 11/14/2024 11/14/2024 11/14/2024 10:49 AM ATHLETIC TURF WORKER COVID: Suspected 11/14/2024 11/14/2024 11/14/2024 3:33 PM ATHLETIC TURF WORKER RSV, droplet 11/14/2024 11/14/2024 11/21/2024 3:07 AM ATHLETIC TURF WORKER COVID: Suspected 12/30/2024 12/30/2024 12/30/2024 7:54 PM CDT documented as of this encounter Care Teams Barbering Teacher Relationship Specialty Start Date End Date John Kimbrough MD [address] [facility] [address] [place] [address] PCP - General 11/08/16 07/02/23 Anayeli Lee MD [address] [place] [address] PCP - General Family Medicine 07/03/23 08/24/24 Preethi Godoy NP [address] [address] PCP - General Family Medicine 08/25/24 Kath Shepherd MD [address] [place] [address] Consulting Physician Gastroenterology 07/22/19 Peter Ya MD [address] [place] [address] Maintenance Department Technician Cardiology 07/22/19 Vitaly Ledesma MD [address] [place] [address] Consulting Physician Neurology 07/22/19 Joshua Butterfield MD [address] [facility] 200 [place] [address] Consulting Physician Urology 07/03/23 Jeffery Bustillos MD [address] [facility] 102 [place] [address] Consulting Physician Cardiovascular Disease 02/06/24 Shimon Schofield MD [address] [address] Consulting Physician Vascular Surgery 02/06/24 documented as of this encounter
--- OUTSIDE RECORDS SUMMARY | 2025-01-26 12:30 | XMS_ITS | Encounter Summary ---
Author Organization [facility] Healthcare Address [address] [place] [address] Care Team Providers Care Trip Follower Name Role Phone Kath Shepherd MD Unavailable [phone] Peter Ya MD Unavailable [phone] Vitaly Ledesma MD Unavailable [phone] Joshua Butterfield MD Unavailable [phone] Jeffery Bustillos MD Unavailable [phone] Shimon Schofield MD Unavailable Preethi Godoy NP Primary Care Provider [phone] Reason for Visit * Reason Onset Date Comments APRIL Questions 01/11/2025 Encounter Details Date Type Department Care Team (Late st Contact Info) Description 01/11/2025 Telephone [facility] Medical Group Primary Care at [address] [address] Preethi Godoy NP [address] [place] [address] [address] [place] [address] APRIL Questions Social History Tobacco Use Types Packs/Day Years [...] on file 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 I advised her of Preethi's message. Pt stated she would like to monitor him and if he starts to go south that she will take him in. They have an appointment with us on Friday. * Telephone Encounter - Preethi Godoy NP - 01/12/2025 8:33 AM CDT If lethargic and not himself, then should unfortunately go back to ER to be seen. Infection may have not completely cleared * Telephone Encounter - Charline Goodman MA - 01/11/2025 1:49 PM CDT APRIL Questions (Message from [facility]-Clinical Staff Educator): Has patient been discharged at time of call? Yes Date Admitted: 01/04/2025 Date Discharged: 01/09/2025 Facility Admitted To: [facility] Reason for Stay? UTI, pneumonia If prescribed new medications, do you have any questions or concerns? no Do you have enough medication to get you to your follow-up appointment? no Since being released do you feel better, the same, or worse? No Date of APRIL Appointment: 01/17/2025 Do you have transportation to the appointment? Yes Additional Comments: patient is lethargic and states he is not himself Does message need to be routed? Yes-Action Needed documented in this encounter Plan of Treatment Not on file documented as of this encounter Visit Diagnoses Not on filedocumented in this encounter Care Teams Trip Follower Relationship Specialty Start Date End Date Preethi Godoy NP [address] [facility] 130 [place] [address] PCP - General Family Medicine 08/25/24 Kath Shepherd MD [address] [place] [address] Consulting Physician Gastroenterology 07/22/19 Peter Ya MD [address] [place] [address] Dietary Aid Cardiology 07/22/19 Vitaly Ledesma MD [address] [place] [address] Consulting Physician Neurology 07/22/19 Joshua Butterfield MD [address] [place] [address] Consulting Physician Urology 07/03/23 Jeffery Bustillos MD [address] [place] [address] Consulting Physician Cardiovascular Disease 02/06/24 Shimon Schofield MD [address] [facility] [address] [place] [address] Consulting Physician Vascular Surgery 02/06/24 documented as of this encounter
--- OUTSIDE RECORDS SUMMARY | 2025-01-26 12:30 | XMS_ITS | Clinical Summary ---
Author Organization [facility] Address [address] [place] [address] Care Team Providers Care Psychiatric Aide Name Role Phone Kath Shepherd MD Unavailable [phone] Peter Ya MD Unavailable [phone] Aziza Ledesma MD Unavailable [phone] Joshua Butterfield MD Unavailable [phone] Jeffery Bustillos MD Unavailable [phone] Shmion Schofield MD Unavailable Preethi Godoy NP Primary Care Provider [phone] Allergies No known active allergies Medications coenzyme Q10 10 mg capsule Take 2 capsules (20 mg total) by mouth every morning Active mpena-6-haa-ep a-dpa-fish oil 1,050-1,200 mg capsule Take 1 [...] NIGHTLY 90 tablet 3 06/08/20 24 Active levETIRAcetam (KEPPRA) 750 mg tablet Take [...] of breath 1 each 11/27/19 25 Active Additional Information Patient not taking.Reported on 01/18/2025 escitalopram (LEXAPRO) 20 mg tabletIndicati ons: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),Cerebral amyloid angiopathy (HCC),KAYLA (generalized anxiety disorder) Take 1 tablet (20 mg total) by mouth daily 90 tablet 1 12/28/19 25 Active metoprolol XL (TOPROL-XL) 25 mg extended release tablet Take 3 tablets (75 mg total) by mouth nightly 01/19/20 25 Active amLODIPine (NORVASC) 5 mg tablet Take 0.5 tablets (2.5 mg total) by mouth 2 (two) times a day 10/08/19 023 Discontinued irbesartan (AVAPRO) 150 mg tablet Take 0.5 tablets (75 mg total) by mouth daily 90 tablet 1 10/28/19 23 023 Discontinued metoprolol XL (TOPROL-XL) 100 mg 24 hr tablet Take 1 tablet (100 mg total) by mouth daily 30 tablet 11 06/10/20 24 025 Discontinued(R eorder) cefdinir (OMNICEF) 300 mg capsuleIndicat ions:Urinary Tract/Genitour inary Infection Take 1 capsule (300 mg total) by mouth daily for 7 days 7 capsule 12/31/19 25 025 metoprolol tartrate (LOPRESSOR) 25 mg immediate release tablet TAKE 2 TABLETS BY MOUTH TWICE DAILY. TAKE WITH 100 MG DOSE FOR TOTAL 150 MG TWICE DAILY 11/11/19 25 025 Discontinued metoprolol tartrate (LOPRESSOR) 50 mg immediate release tablet 01/10/20 25 025 Discontinued Hospital, Clinic, or Other Facility Administered Medication Ordered Dose Route Frequency Start Date End Date Status [facility] [id number]/placebo (/[id number]) capsule 4 capsuleIndications:Crohn' s disease of both small and large intestine with other complication (HCC) 4 capsule oral 2 times daily 05/21/2022 Active [facility] BMS-089189/placebo (/[id number]) capsule 4 capsuleIndications:Crohn' s disease of both small and large intestine with other complication (HCC) 4 capsule oral 2 times daily 06/18/2022 [facility] (/[id number]) capsule 4 capsuleIndications:Crohn' s disease of both small and large intestine with other complication (HCC) 4 capsule oral 2 times daily 07/09/2022 Active [facility] BMS-955755/placebo (/[id number]) capsule 4 capsuleIndications:Crohn' s disease of both small and large intestine with other complication (HCC) 4 capsule oral 2 times daily 08/07/2022 Active [facility] BMS-562681/placebo (/[id number]) capsule 4 capsuleIndications:Crohn' s disease of both small and large intestine with other complication (HCC) 4 capsule oral 2 times daily 09/19/2022 Active [facility] BMS-418514/placebo (/[id number]) capsule 4 capsuleIndications:Crohn' s disease of both [...] modification Assessment & Plan (10/03/2023 1:12 PM HAND STAMPER): Chronic. Due to prior peripheral arterial disease. [...] urologist Assessment & Plan (10/03/2023 1:12 PM HAND STAMPER): Chronic. Continue medication care per Urology Assessment & Plan (07/03/2023 5:22 PM CDT): Follows with [facility] Dr. Butterfield. Patient on finasteride and does intermittent straight catheterization Protein-calorie malnutrition, mild 07/03/2023 Overview (07/03/2023): Patient with low BMI. Less protein level was low. Monitor weight Assessment & Plan (02/06/2024 4:55 PM CDT): Patient has had borderline protein calorie malnutrition. Monitor his protein levels on labs. Encourage adequate nutrition. Avoid additional weight loss Assessment & Plan (10/03/2023 1:12 PM HAND STAMPER): Chronic. BMI remains at the lower end arrange. Encouraged adequate nutrition. Monitor History of gout 07/03/2023 Assessment & Plan (02/06/2024 4:55 PM CDT): Chronic. Denies history of recent flares. Continue allopurinol for prophylaxis. Check uric acid Assessment & Plan (10/03/2023 1:12 PM HAND STAMPER): Chronic. Denies any history of gout in [...] 03/14/2023 Assessment & Plan (10/03/2023 1:13 PM HAND STAMPER): Chronic. May occasionally increase in size. Minimal pain. Has deferred elective repair in the past Persistent atrial fibrillation 12/04/2021 Assessment & Plan (11/23/2024 1:36 PM HAND STAMPER): Rate controlled in office, continuing follow up with Cardiology. Assessment & Plan (03/01/2024 7:51 AM CDT): Stable continue metoprolol. Assessment & Plan (02/06/2024 4:55 PM CDT): Chronic. Controlled rate with metoprolol. Continue. Continue aspirin for stroke prophylaxis Assessment & Plan (10/03/2023 1:12 PM HAND STAMPER): Chronic. Continue risk factor modification. Continue ASA [...] Monitor Assessment & Plan (10/03/2023 1:11 PM HAND STAMPER): Chronic. Denies significant worsening. No agitation recently. [...] They denies significant agitation Cerebral amyloid angiopathy ([facility]) 02/15/2020 Assessment & Plan (02/06/2024 4:54 PM CDT): Chronic. Memory has worsened slightly in the last year. He does have some fluctuations at times. No real agitation. Target good blood pressure control. Continue aspirin for his other issues. Would be cautious with more aggressive anticoagulation given history of amyloid angiopathy Assessment & Plan (10/03/2023 1:11 PM HAND STAMPER): Chronic. Denies any progression of symptoms Assessment & Plan (07/03/2023 5:18 PM CDT): Chronic. Control blood pressure and modify risk factors as able. Continue aspirin given AFib but would be cautious with stronger anticoagulants given increased bleeding risk with cerebral amyloid angiopathy Peripheral artery disease 09/10/2019 Overview (09/10/2019): Added automatically from request for surgery [id number] Assessment & Plan (09/03/2024 10:57 AM HAND STAMPER): Stable lower extremity occlusive disease. Continue risk [...] duplex. Assessment & Plan (10/03/2023 1:11 PM HAND STAMPER): Chronic. Denies recent claudication symptoms. Continue ASA, statin and Pletal Assessment & Plan (07/03/2023 5:22 PM CDT): Chronic. 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 Denies current sores on his feet. Follows with Podiatry in [place]. On cilostazol Iron deficiency anemia due to [...] 02/17/2019 Assessment & Plan (11/23/2024 1:35 PM HAND STAMPER): BP normal in office, continuing current regimen. [...] dehydrate Assessment & Plan (10/03/2023 1:10 PM HAND STAMPER): Chronic. Blood pressure controlled. Continue current prescription [...] (01/26/2019): Added automatically from request for surgery [id number] Assessment & Plan (02/06/2024 4:52 PM CDT): Chronic. Disease has been stable. Minimal symptoms. He does have to be cautious with eating too many fruits and vegetables as he notes this does cause some GI distress. He remains controlled with Skyrezi and hydroxychloroquine. He will continue Assessment & Plan (10/03/2023 1:10 PM HAND STAMPER): Chronic. Symptomatically improved per patient. Continue medication and care per GI Assessment & Plan (07/03/2023 5:20 PM CDT): Chronic. Follows with Gastroenterology. On scar oz and sulfasalazine. Continue medication and care per them CAD (coronary artery disease) 12/04/2018 Assessment & Plan (09/03/2024 10:57 AM HAND STAMPER): Stable continue ASA and Lasix Assessment & Plan (02/06/2024 4:51 PM CDT): Chronic. Denies chest pain. Continue risk factor modification with statin, aspirin, blood pressure control. Target LDL less than 70 Assessment & Plan (10/03/2023 1:10 PM HAND STAMPER): Chronic. Denies chest pain. Follows with cardiology. [...] 12/30/2017 Assessment & Plan (08/25/2024 4:06 PM HAND STAMPER): Updated labs ordered, Hemoglobin was 9 in [...] infusions Assessment & Plan (10/03/2023 1:10 PM HAND STAMPER): Chronic. Follows with GI and Hematology. Has received iron infusions. Often does B12 injections Assessment & Plan (07/03/2023 5:15 PM CDT): Chronic. Follows with GI and Hematology. Received iron infusions Hypercholesterolemia 02/05/2011 Assessment & Plan (09/03/2024 10:57 AM HAND STAMPER): Stable continue statin therapy. Assessment & Plan (03/01/2024 7:50 AM CDT): Stable continue statin therapy. Assessment & Plan (02/06/2024 4:53 PM CDT): Chronic. Tolerates atorvastatin. Continue. Check cholesterol level and adjust for an LDL goal of at least less than 70 with optimal less than 55 Assessment & Plan (10/03/2023 1:10 PM HAND STAMPER): Chronic. Tolerates current prescription medication. Continue Assessment [...] (05/29/2021): Added automatically from request for surgery [id number] Crohn's disease with rectal bleeding 12/10/2018 07/03/2023 Overview (12/10/2018): Added automatically from request for surgery [id number] Peripheral vascular disease 02/13/2017 07/03/2023 Gastrointestinal hemorrhage 07/03/2023 Acute renal failure 07/03/20 23 Crohn's disease of colon with rectal bleeding 07/03/2023 Assessment & Plan (12/04/2021 1:34 PM CDT): Has upcoming endoscopy. Encounters Date Type Department Care Team Description 01/23/2025 Results Follow-Up [facility] Primary Care at [address] [address] Ankit Pascal MD 01/21/2025 11:15 AM CDT Ancillary Procedure [facility] Cardiology at [address] [place] [address] Coronary artery disease involving coronary bypass graft of napaimute heart, unspecified whether angina present; Fatigue, unspecified type; Hypotension, unspecified hypotension type 01/19/2025 12:15 PM CDT Lab [facility] Outpatient Lab at [address] [address] 01/19/2025 12:03 PM CDT - 01/19/2025 11:59 PM CDT Hospital Encounter [address] [address] Recurrent UTI Discharge Disposition: Discharge to home or self care 01/19/2025 Results Follow-Up [facility] Primary Care at [address] [address] Ankit Pascal MD 01/18/2025 11:45 AM CDT Ancillary Procedure [facility] Imaging at [address] [address] 01/18/2025 11:30 AM CDT Lab [facility] Outpatient Lab at [address] [address] KAYLA (generalized anxiety disorder) (Primary Dx); Benign prostatic hyperplasia with urinary retention 01/18/2025 11:20 AM CDT - 01/18/2025 11:59 PM CDT Hospital Encounter [address] [id number] CAP (community acquired pneumonia) Discharge Disposition: Discharge to home or self care 01/18/2025 10:30 AM CDT Office Visit [facility] Primary Care at [address] [address] Ankit Pascal MD Hospital discharge follow-up (Primary Dx); CAP (community acquired pneumonia); Recurrent UTI 01/18/2025 Results Follow-Up [facility] Primary Care at [address] [address] Ankit Pascal MD 01/11/2025 Telephone [facility] Primary Care at [address] [address] Preethi Godoy NP APRIL Questions 01/10/2025 Orders Only [facility] Primary Care at [address] [phone] Olive Randolph MD 01/05/2025 Orders Only [facility] Primary Care at [address] [phone] Olive Randolph MD 01/04/2025 Nurse Triage [facility] Primary Care at [address] [phone] Preethi Godoy NP 01/01/2025 Results Follow-Up [facility] at [address] [address] Brie Mandel NP 12/30/2024 11:55 PM CDT - 12/30/2024 11:59 PM CDT Hospital Encounter [address] [address] Acute cystitis with hematuria; Nasopharyngitis acute Discharge Disposition: Discharge to home or self care 12/30/2024 7:30 PM CDT Office Visit [facility] Care at [address] [address] Gladys Valdovinos NP Acute cystitis with hematuria (Primary Dx); Nasopharyngitis acute 11/29/2024 Results Follow-Up [facility] Primary Care at [address] [address] Preethi Godoy NP Pulmonary nodule 1 cm or greater in diameter (Primary Dx) 11/29/2024 Orders Only [facility] Primary Care at [address] [address] Preethi Godoy NP Abnormal CXR; Pneumonia of both lungs due to infectious organism, unspecified part of lung; Cough, unspecified type; Fever, unspecified fever cause 11/26/2024 Orders Only [facility] Primary Care at [address] [phone] Preethi Godoy NP 11/26/2024 Telephone [facility] Primary Care at [address] [address] Preethi Godoy NP Medical Question/Miscellaneo us 11/26/2024 Orders Only [facility] Primary Care at [address] [address] Preethi Godoy NP 11/26/2024 Telephone [facility] Primary Care at [address] [phone] Preethi Godoy NP Symptom Based Call 11/24/2024 Results Follow-Up [facility] Primary Care at [address] [phone] Preethi Godoy NP 11/23/2024 1:30 PM HAND STAMPER Lab [facility] Outpatient Lab at [address] [address] Pneumonia due to infectious organism, unspecified laterality, unspecified part of lung (Primary Dx) 11/23/2024 1:30 PM HAND STAMPER Ancillary Procedure [facility] Imaging at [address] [address] Pneumonia due to infectious organism, unspecified laterality, unspecified part of lung 11/23/2024 1:22 PM HAND STAMPER - 11/23/2024 11:59 PM HAND STAMPER Hospital Encounter [address] [address] Benign hypertension with stage 3a chronic kidney disease (HCC); Iron deficiency anemia due to chronic blood loss Discharge Disposition: Discharge to home or self care 11/23/2024 12:30 PM HAND STAMPER Office Visit [facility] Primary Care at [address] [address] Preethi GodoyDONALD Pneumonia due to infectious organism, unspecified laterality, unspecified part of lung (Primary Dx); Iron deficiency anemia due to chronic blood loss; Benign hypertension with stage 3a chronic kidney disease (HCC); Persistent atrial fibrillation (HCC) 11/16/2024 2:00 PM HAND STAMPER Ancillary Procedure [facility] Imaging at [address] [phone] Acute cough 11/16/2024 Orders Only [facility] at [address] [phone] Gladys Valdovinos NP Lower respiratory infection (e.g., bronchitis, pneumonia, pneumonitis, pulmonitis) (Primary Dx) 11/14/2024 11:00 AM HAND STAMPER - 11/14/2024 11:59 PM HAND STAMPER Hospital Encounter [address] [address] Acute cough Discharge Disposition: Discharge to home or self care 11/14/2024 10:00 AM HAND STAMPER Office Visit [facility] at [address] [phone] Mandy Hernandez PA Acute cough (Primary Dx) 11/14/2024 Results Follow-Up [facility] at [address] [phone] Mandy Hernandez PA 11/10/2024 Orders Only [facility] Primary Care at [address] [phone] Preethi Godoy NP 11/03/2024 Orders Only [facility] Gastroenterology 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 [employer] Not on file Not on file Not on file Obstetrics History Last Filed Vital Signs Vital Sign Reading Time Taken Comments Blood Pressure 112/60 01/18/2025 10:38 AM CDT Pulse 63 01/18/2025 10:38 AM CDT Temperature 36 C (96.8 F) 01/18/2025 10:38 AM CDT Respiratory Rate 18 01/18/2025 10:38 AM CDT Oxygen Saturation 99% 01/18/2025 10:38 AM CDT Inhaled Oxygen Concentration - - Weight 60.3 kg (133 lb) 01/18/2025 10:38 AM CDT Height 177.8 cm (5' 10 ) 01/18/2025 10:38 AM CDT Body Mass Index 19.08 01/18/2025 10:38 AM CDT Plan of Treatment Health Maintenance Due Date [...] Screening Discontinued Medical Devices Implanted Type Area Pre School Manager Device Identifier Shelf Expiration Date Model / Serial / Lot [employer] Araceli [id number] Synergy 3.5mm 24mm 144cm Radiopaque 1 Access Port Inflation Lumen - [id number] - [id number] Implanted:Qty: 1 on 03/26/2019 by Alban Santana MD at [facility] Stent Vint 12/09/2020 [id number] / [id number] / [id number] Procedures Procedure Name Priority Date/Time Associated Diagnosis Comments TRANSTHORACIC ECHO (TTE) COMPLETE W DOPPLER/CF WO CONTRAST Routine 01/21/2025 11:37 AM CDT Coronary artery disease involving coronary bypass graft of napaimute heart, unspecified whether angina present Fatigue, unspecified type Hypotension, unspecified hypotension type URINALYSIS, MICROSCOPIC ONLY Routine 01/19/2025 12:03 PM CDT Recurrent UTI URINALYSIS AND REFLEX TO MICROSCOPIC AND CULTURE Routine 01/19/2025 12:03 PM CDT Recurrent UTI XR CHEST PA LATERAL 2 VIEWS Routine 01/18/2025 11:31 AM CDT CAP (community acquired pneumonia) DIFFERENTIAL AUTO Routine 01/18/2025 11: 20 AM CDT CAP (community acquired pneumonia) CBC WITH AUTO DIFFERENTIAL Routine 01/18/2025 11:20 AM CDT CAP (community acquired pneumonia) XR CHEST 1 VIEW Schedule Routine, Read Routine (OP Routine) 01/07/2025 12:38 PM CDT XR CHEST 1 VIEW Schedule Routine, Read Routine (OP Routine) 01/05/2025 3:09 PM CDT POC INFLUENZA A/B, COVID-19 ANTIGEN Routine 12/30/2024 [...] Read Routine (OP Routine) 11/26/2024 10:46 AM HAND STAMPER Abnormal CXR Pneumonia of both lungs due to infectious organism, unspecified part of lung Cough, unspecified type Fever, unspecified fever cause XR CHEST PA LATERAL 2 VIEWS Schedule Routine, Read Routine (OP Routine) 11/23/2024 1:30 PM HAND STAMPER Pneumonia due to infectious organism, unspecified laterality, unspecified part of lung EGFR Routine 11/23/2024 1:22 PM HAND STAMPER Benign hypertension with stage 3a chronic kidney disease (HCC) DIFFERENTIAL AUTO Routine 11/23/2024 1:2 2 PM HAND STAMPER Iron deficiency anemia due to chronic blood loss Benign hypertension with stage 3a chronic kidney disease (HCC) CBC WITH AUTO DIFFERENTIAL Routine 11/23/2024 1:22 PM HAND STAMPER Iron deficiency anemia due to chronic blood loss Benign hypertension with stage 3a chronic kidney disease (HCC) IRON Routine 11/23/2024 1:22 PM HAND STAMPER Iron deficiency anemia due to chronic blood loss BASIC METABOLIC PANEL Routine 11/23/2024 1:22 PM HAND STAMPER Benign hypertension with stage 3a chronic kidney disease (HCC) XR CHEST PA LATERAL 2 VIEWS Schedule YULIANA, Read YULIANA (Appt Today, Awaiting Results) 11/16/2024 2:07 PM HAND STAMPER Acute cough INFLUENZA A/B, RSV, AND COVID-19 PCR Routine 11/14/2024 11:00 AM HAND STAMPER Acute cough POC INFLUENZA A/B, COVID-19 ANTIGEN Routine 11/14/2024 10:47 AM HAND STAMPER Acute cough COLONOSCOPY 10/21/2024 10:56 AM HAND STAMPER CTA ABDOMEN PELVIS W WO CONTRAST Schedule Routine, Read Routine (OP Routine) 02/18/2024 12:14 PM CDT PVD (peripheral vascular disease) HEPATITIS C ANTIBODY Routine 02/06/2024 11:23 AM CDT Encounter for hepatitis C screening test for low risk patient from Last 3 Months or Most Recently Relevant to Health Maintenance Results * TRANSTHORACIC ECHO (TTE) COMPLETE W DOPPLER/CF WO CONTRAST (01/21/2025 11:37 AM CDT) Estimated EF 50-55 % CONS SCIMAGE EF Mod BP 56 % CONS SCIMAGE Anatomical Region Laterality Modality Ultrasound 01/21/2025 11:2 0 AM CDT Narrative 01/21/2025 12:31 PM CDT [facility] Cardiology [address], [address], [place] [address] P:[phone] P:[phone] Echocardiographic Report Patient Name: AZIZA LOYA O : 1945 Study Date: 01/21/2025 11:20:02 AM Gender: M Tech: Location: [facility] Ref Provider: MADAI ENRIQUE Height(Cm): 178 BSA: 1.73 Weight(Kg): 60.3 Heart Rate: 81 BP: 112 / 60 Quality: Good Order Provider: MADAI ENRIQUE PROCEDURES: Echocardiographic Report: Transthoracic echocardiogram with complete 2D, M-Mode, and color Doppler examination. With Strain Analysis. INDICATIONS: I25.810 Atherosclerosis of coronary artery bypass graft(s) without angina pectoris, R53.83 Other fatigue, and I95.9 Hypotension, unspecified. MEASUREMENTS: 2D/MM Value Range Doppler Value Range EF Mod BP 56 % [ 52 - 72 ] AV Mean PG 3 mmHg Estimated EF 50-55 % AV Peak Gideon 1.20 m/s [ 1.00 - 1.70 ] LVIDd 2D 4.93 cm [ 4.20 - 5.80 ] AV Peak PG 6 mmHg LVIDd MM 5.76 cm [ 4.20 - 5.80 ] AV VTI 25.26 cm LVIDs 2D 4.07 cm [ 2.50 - 4.00 ] LVOT Peak Gideon 0.90 m/s [ 0.70 - 1.10 ] LVIDs MM 4.62 cm [ 2.50 - 4.00 ] LVOT VTI 17.03 cm LVPWd 2D 1.04 cm [ 0.60 - 1.00 ] MV E Peak Gideon 1.30 m/s [ 0.60 - 1.30 ] LVPWd MM 0.95 cm [ 0.60 - 1.00 ] MV Decel Time 114 msec [ 104 - 258 ] IVSd 2D 1.14 cm [ 0.60 - 1.00 ] PV Peak Gideon 0.77 m/s [ 0.40 - 0.80 ] IVSd MM 0.87 cm [ 0.60 - 1.00 ] TR Peak Gideon 2.57 m/s [ 1.00 - 2.80 ] LA Dimension MM 4.92 cm [ 3.00 - 4.00 ] TR Peak PG 26 mmHg AoR Diam MM 3.05 cm [ 3.10 - 3.70 ] RVSP 34.00 mmHg [ 10.00 - 36.00 ] LA Volume Index 60 cc/m2 [ 16 - 34 ] ACS MM 1.89 cm [ 1.50 - 2.60 ] 2D/MM Value Range Doppler Value Range - FINDINGS: Interpretation Site: Exam was interpreted at [facility]. Left Ventricle: Mild concentric left ventricular hypertrophy. Mild enlargement of left ventricle cavity. Left ventricular systolic function at the lower limit of normal. Indeterminate diastolic function. Ejection fraction is measured at 56 %. Ejection Fraction is visually estimated to be 50-55 %. Global Longitudinal Strain is -15 %. GLS is abnormal. Classic appearance of apical sparing pattern seen by strain imaging, consider amyloidosis. These segments of the LV are hypokinetic: inferoseptum segment. Right Ventricle: Normal right ventricular size. Normal right ventricular systolic function. Left Atrium: There is severe enlargement of left atrium. Right Atrium: There is severe enlargement of right atrium. Atrial Septum: Normal atrial septum. Mitral Valve: Mild mitral annular calcification. Moderate mitral valve regurgitation. There is no hemodynamically significant mitral stenosis by Doppler. Aortic Valve: No evidence of hemodynamically significant aortic stenosis by Doppler. Aortic cusps appear mildly calcified. Trileaflet aortic valve. Trace aortic valve regurgitation. Tricuspid Valve: Normal appearance of the tricuspid valve. Normal right ventricular systolic pressure. Estimated peak RVSP is 34 mmHg. Moderate to severe tricuspid regurgitation. Pulmonic Valve: Normal appearance of the pulmonic valve. No pulmonic stenosis. Mild pulmonic regurgitation. Pericardium: Normal pericardium with no significant pericardial effusion. Aorta: Normal aortic root. IVC: Normal size and normal respiratory collapse consistent with normal right atrial pressure (<5 mmHg). CONCLUSIONS: Mild concentric left ventricular hypertrophy. Mild enlargement of left ventricle cavity. Left ventricular systolic function at the lower limit of normal. Indeterminate diastolic function. Ejection fraction is measured at 56 %. Ejection Fraction is visually estimated to be 50-55 %. Global Longitudinal Strain is -15 %. GLS is abnormal. Classic appearance of apical sparing pattern seen by strain imaging, consider amyloidosis. These segments of the LV are hypokinetic: inferoseptum segment. There is severe enlargement of left atrium. There is severe enlargement of right atrium. Mild mitral annular calcification. Moderate mitral valve regurgitation. Moderate to severe tricuspid regurgitation. Mild pulmonic regurgitation. Atrial fibrillation. Electronically Signed By: Harley Bowser MD 01/21/2025 12:30:49 PM CDT Procedure Note Harley Bowser MD - 01/21/2025 [facility] Cardiology [address] , [address], [place] [address] P:[phone] P:[phone] Echocardiographic Report Patient Name: AZIZA LOYA O : 1945 Study Date: 01/21/2025 11:20:02 AM Gender: M Tech: Location: [facility] Ref Provider: MADAI ENRIQUE Height(Cm): 178 BSA: 1.73 Weight(Kg): 60.3 Heart Rate: 81 BP: 112 / 60 Quality: Good Order Provider: MADAI ENRIQUE PROCEDURES: Echocardiographic Report: Transthoracic echocardiogram with complete 2D, M-Mode, and color Dopplerexamination. With Strain Analysis. INDICATIONS: I25.810 Atherosclerosis of coronary artery bypass graft(s) without anginapectoris, R53.83 Other fatigue, and I95.9 Hypotension, unspecified. MEASUREMENTS: 2D/MM Value Range Doppler ValueRange EF Mod BP 56 % [ 52 - 72 ] AV Mean PG 3mmHg Estimated EF 50-55 % AV Peak Gideon 1.20m/s [ 1.00 - 1.70 ] LVIDd 2D 4.93 cm [ 4.20 - 5.80 ] AV Peak PG 6mmHg LVIDd MM 5.76 cm [ 4.20 - 5.80 ] AV VTI 25.26cm LVIDs 2D 4.07 cm [ 2.50 - 4.00 ] LVOT Peak Gideon 0.90m/s [ 0.70 - 1.10 ] LVIDs MM 4.62 cm [ 2.50 - 4.00 ] LVOT VTI 17.03cm LVPWd 2D 1.04 cm [ 0.60 - 1.00 ] MV E Peak Gideon 1.30m/s [ 0.60 - 1.30 ] LVPWd MM 0.95 cm [ 0.60 - 1.00 ] MV Decel Time 114msec [ 104 - 258 ] IVSd 2D 1.14 cm [ 0.60 - 1.00 ] PV Peak Gideon 0.77m/s [ 0.40 - 0.80 ] IVSd MM 0.87 cm [ 0.60 - 1.00 ] TR Peak Gideon 2.57m/s [ 1.00 - 2.80 ] LA Dimension MM 4.92 cm [ 3.00 - 4.00 ] TR Peak PG 26mmHg AoR Diam MM 3.05 cm [ 3.10 - 3.70 ] RVSP 34.00mmHg [ 10.00 - 36.00 ] LA Volume Index 60 cc/m2 [ 16 - 34 ] ACS MM 1.89 cm [ 1.50 - 2.60 ] 2D/MM Value Range Doppler ValueRange - FINDINGS: Interpretation Site: Exam was interpreted at [facility]. Left Ventricle: Mild concentric left ventricular hypertrophy. Mild enlargement of leftventricle cavity. Left ventricular systolic function at the lower limit of normal.Indeterminate diastolic function. Ejection fraction is measured at 56 %. Ejection Fraction isvisually estimated to be 50-55 %. Global Longitudinal Strain is -15 %. GLS is abnormal.Classic appearance of apical sparing pattern seen by strain imaging, consider amyloidosis.These segments of the LV are hypokinetic: inferoseptum segment. Right Ventricle: Normal right ventricular size. Normal right ventricular systolicfunction. Left Atrium: There is severe enlargement of left atrium. Right Atrium: There is severe enlargement of right atrium. Atrial Septum: Normal atrial septum. Mitral Valve: Mild mitral annular calcification. Moderate mitral valve regurgitation.There is no hemodynamically significant mitral stenosis by Doppler. Aortic Valve: No evidence of hemodynamically significant aortic stenosis by Doppler.Aortic cusps appear mildly calcified. Trileaflet aortic valve. Trace aortic valveregurgitation. Tricuspid Valve: Normal appearance of the tricuspid valve. Normal right ventricularsystolic pressure. Estimated peak RVSP is 34 mmHg. Moderate to severe tricuspidregurgitation. Pulmonic Valve: Normal appearance of the pulmonic valve. No pulmonic stenosis. Mildpulmonic regurgitation. Pericardium: Normal pericardium with no significant pericardial effusion. Aorta: Normal aortic root. IVC: Normal size and normal respiratory collapse consistent with normal rightatrial pressure (<5 mmHg). CONCLUSIONS: Mild concentric left ventricular hypertrophy. Mild enlargement of leftventricle cavity. Left ventricular systolic function at the lower limit of normal.Indeterminate diastolic function. Ejection fraction is measured at 56 %. Ejection Fraction isvisually estimated to be 50-55 %. Global Longitudinal Strain is -15 %. GLS is abnormal.Classic appearance of apical sparing pattern seen by strain imaging, consider amyloidosis.These segments of the LV are hypokinetic: inferoseptum segment. There is severe enlargement of left atrium. There is severe enlargement of right atrium. Mild mitral annular calcification. Moderate mitral valve regurgitation. Moderate to severe tricuspid regurgitation. Mild pulmonic regurgitation. Atrial fibrillation. Electronically Signed By: Harley Bowser MD 01/21/2025 12:30:49 PM CDT Madai Enrique NP CV ECHO PROCEDURES Final Res ult * (ABNORMAL) Urinalysis reflex to microscopic and culture Urine (01/19/2025 12:03 PM CDT) Color, ur Yellow Yellow Clarity, ur Clear Clear [facility] Specific gravity, ur 1.019 1.003 - 1.030 [facility] pH, urine 6.0 [facility] Comment: Interpretive Data U rine pH is affected by diet, medications, systemic acid-base disturbances, and renal tubular function. pH may affect urinary stone formation. For example, urine pH below 6.0 may help reduce the tendency for calcium phosphate stones and pH greater than 6.0 may reduce the tendency for uric acid stone formation. Source: [facility] [employer] Current Interpretive Data was last revised on 2017 Protein, ur ql Trace Negative [facility] Glucose, ur ql Negative Negative [facility] Ketones, ur Negative Negative [facility] Bilirubin, ur Negative Negative [facility] Blood, ur Negative Negative [facility] Urobilinogen, ur <2.0 <2.0 mg/dL [facility] Nitrite, ur Negative Negative [facility] Leukocyte esterase, ur 1+(A) Negative [facility] UA reflex comment Reflex to microscopic UA will be performed. [facility] Urine 01/19/2025 12:0 3 PM CDT 01/19/2025 7:25 PM CDT Ankit Pascal MD LAB MICROBIOLOGY - GENERAL ORDERABLES Final Result [facility] [address] Department [place] [address] * (ABNORMAL) Urinalysis, microscopic only (01/19/2025 12:03 PM CDT) WBC, ur 6-10(A) 0 - 5 /HPF RBC, ur 0-2 0 - 2 /HPF [facility] Epithelial cells, squamous, ur 1-5 0 - 5 /HPF [facility] Bacteria, ur Trace(A) [facility] Culture Reflex Comment Reflex conditions for urine culture (WBC >10) not met. [facility] Urine 01/19/2025 12:0 3 PM CDT 01/19/2025 7:25 PM CDT us Ankit Pascal MD LAB URINE ORDERABLES Final Result [facility] [address] Department [place] [address] * XR Chest Pa Lateral 2 Views (01/18/2025 11:31 AM CDT) Anatomical Region Laterality Modality Body, Chest N/A Digital Radiogra phy 01/18/2025 12:0 9 PM CDT Narrative 01/18/2025 12:11 PM CDT EXAM DESCRIPTION: XR CHEST PA LATERAL 2 VIEWS REASON FOR STUDY: History of CAP; follow up. No symptoms today. History of CAD, CABG, and AFIB. Ex-smoker; quitting in 1990. Smoked about 29 years. TECHNIQUE: Frontal and lateral radiographic views of the chest were acquired. COMPARISON: 11/23/2024 FINDINGS: LUNGS/PLEURA: Small bilateral pleural effusions. Areas of scarring bilaterally. No evidence of acute infiltrate. HEART/MEDIASTINUM: The heart size is normal. Normal mediastinal and hilar contours. LINES/TUBES: None. BONES: No acute findings. OTHER: No other significant finding. IMPRESSION: No acute cardiopulmonary abnormality. THIS IS AN ELECTRONICALLY VERIFIED FINAL REPORT 01/18/2025 12:11 PM - Electronically signed by Brown Ennis M.D. RW T: Report ID: [id number] Reading Location: [id number] Procedure Note Brown Ennis MD - 01/18/2025 EXAM DESCRIPTION: XR CHEST PA LATERAL 2 VIEWS REASON FOR STUDY: History of CAP; follow up. No symptoms today. History of CAD, CABG, andAFIB. Ex-smoker; quitting in 1990. Smoked about 29 years. TECHNIQUE: Frontal and lateral radiographic views of the chest wereacquired. COMPARISON: 11/23/2024 FINDINGS: LUNGS/PLEURA: Small bilateral pleural effusions. Areas ofscarring bilaterally. No evidence of acute infiltrate. HEART/MEDIASTINUM: The heart size is normal. Normal mediastinal and hilar contours. LINES/TUBES: None. BONES: No acute findings. OTHER: No other significant finding. IMPRESSION: No acute cardiopulmonary abnormality. THIS IS AN ELECTRONICALLY VERIFIED FINAL REPORT 01/18/2025 12:11 PM - Electronically signed by Brown Ennis M.D. RW T: Report ID: [id number] Reading Location: [place] [address] Ankit Pascal MD IMG XR PROCEDURES Final Res ult * (ABNORMAL) Differential, auto (01/18/2025 11:20 AM CDT) Neutrophil abs 7.11(H) 1.50 - 6.50 K/cumm Imm gran abs 0.04 0.00 - 0.10 K/cumm [facility] Lymphocyte abs 1.01 0.80 - 3.30 K/cumm [facility] Monocyte abs 0.86(H) 0.20 - 0.80 K/cumm [facility] Eosinophil abs 0.26 0.00 - 0.50 K/cumm [facility] Basophil abs 0.06 0.00 - 0.10 K/cumm [facility] Neutrophil pct 76.2 % [facility] Comment: Interpretive Data Percent cell count reference ranges are not reported, since discordance with absolute values may lead to misinterpretation of CBC data. Current Interpretive Data was last revised on 2017. Imm gran pct 0.4 % [facility] Comment: Interpretive Data Percent cell count reference ranges are not reported, since discordance with absolute values may lead to misinterpretation of CBC data. Current Interpretive Data was last revised on 2017. Lymphocyte pct 10.8 % [facility] Comment: Interpretive Data Percent cell count reference ranges are not reported, since discordance with absolute values may lead to misinterpretation of CBC data. Current Interpretive Data was last revised on 2017. Monocyte pct 9.2 % [facility] Comment: Interpretive Data Percent cell count reference ranges are not reported, since discordance with absolute values may lead to misinterpretation of CBC data. Current Interpretive Data was last revised on 2017. Eosinophil pct 2.8 % [facility] Comment: Interpretive [...] Data was last revised on 2017. Blood 01/18/2025 11:2 0 AM CDT 01/18/2025 8:27 PM CDT us Ankit Pascal MD LAB BLOOD ORDERABLES Final Result [facility] [address] Department [place] [address] * (ABNORMAL) CBC with auto differential (01/18/2025 11:20 AM CDT) WBC 9.34 3.80 - 9.90 K/cumm Hgb 11.4(L) 13.0 - 17.5 g/dL [facility] Hct 37.5(L) 38.9 - 50.3 % [facility] Plt 284 150 - 400 K/cumm [facility] MPV 9.9 9.1 - 12.3 fL [facility] RBC 3.75(L) 4.30 - 5.80 M/cumm [facility] MCV 100.0(H) 81.3 - 96.4 fL [facility] MCH 30.4 27.1 - 33.3 pg [facility] MCHC 30.4(L) 32.3 - 35.7 g/dL [facility] RDW CV 13.7 11.1 - 14.9 % [facility] RDW SD 50.4(H) 35.7 - 48.1 fL [facility] NRBC abs 0.00 0.00 - 0.01 K/cumm [facility] Blood 01/18/2025 11:2 0 AM CDT 01/18/2025 8:27 PM CDT Ankit Pascal MD LAB BLOOD ORDERABLES Final Result [facility] [address] Department [place] [address] * XR Chest 1 View (01/07/2025 12:38 PM CDT) Anatomical Region Laterality Modality Body, Chest N/A Radiographic Mariangel ging Historical Provider IMG XR PROCEDURES Final R esult * XR Chest 1 View (01/05/2025 3:09 PM CDT) Anatomical Region Laterality Modality Body, Chest N/A Radiographic Mariangel ging Historical Provider IMG XR PROCEDURES Final R esult * POC Influenza A/B, COVID-19 antigen (12/30/2024 7:53 PM CDT) Influenza A Ag, POC Negative Negative [facility] Influenza B Ag, POC Negative Negative [facility] COVID-19 Ag POC Presumptive Negative Presumptive Negative, Invalid [facility] Nasal 12/30/2024 7:53 PM CDT us Gladys Valdovinos NP POINT OF CARE TEST ORDERABLES Final Result Performing Organization Address City/[facility]/ZIP Co de Phone Number [facility] EDW [facility] * Throat culture Throat (12/30/2024 7:47 PM CDT) Report Final Report: No growth of pathogens. Comment:Testing performed by : [facility], [address] [place]., [address] Throat 12/30/2024 7:47 PM CDT 12/31/2024 2:01 AM CDT Narrative [facility] - 01/01/2025 2:34 AM CDT Testing performed by [facility] Microbiology Laboratory ([phone]). us Gladys Valdovinos NP LAB MICROBIOLOGY - GENERAL ORD ERABLES Final Result [facility] [address] Department [place] [address] * POCT rapid strep A (12/30/2024 7:46 PM CDT) Rapid Strep A, POC Negative Negative Swab 12/30/2024 7:46 PM CDT Gladys Valdovinos NP POINT OF CARE TEST ORDERABLES Final Result * (ABNORMAL) POCT urinalysis dipstick (12/30/2024 7:41 PM CDT) Color, Urine, POC Yellow Clarity, ur, POC Cloudy(A) Clear Glucose, ur, POC Negative Negative MG/DL Bilirubin, ur, POC Negative Negative, Small, Moderate, Large Ketones, ur, POC Negative Negative Specific [place], POC 1.020 1.003 - 1.030 Blood, ur, POC Small(A) Negative pH, ur, POC 5.5 5.0 - 8.0 Protein, ur, POC Negative Negative Urobilinogen, urine, POC 0.2 0.2 - 1.0 mg/dL Nitrite, ur, POC Positive(A) Negative Leukocytes, ur, POC Moderate(A) Negative Lot Number [id number] Urine 12/30/2024 7:41 PM CDT us Gladys Valdovinos NP POINT OF CARE TEST ORDERABLES Final Result * (ABNORMAL) Urine culture Urine, clean voided (12/30/2024 7:30 PM CDT) Report Final Report: Greater than or equal to 100,000 colonies/mL of Klebsiella pneumoniae (.) Comment:Testing performed by : [facility], [address] [facility], [place]., [address] Organism KLEBSIELLA PNEUMONIAE [facility] Urine, clean voided 12/30/2024 7:30 PM CDT 12/31/2024 2:01 AM CDT Narrative [facility] BROWN[facility]E - 01/02/2025 8:39 AM CDT Testing performed by [facility] Microbiology Laboratory ([phone]) Organism Antibiotic Method Susceptibility Klebsiella pneumoniae Ampicillin [...] - GENERAL ORD ERABLES Final Result [facility] [address] Department [place] [address] * NM Brain Imaging SPECT/CT (11/28/2024 10:49 AM CDT) Anatomical Region Laterality Modality Head and Neck N/A Nuclear Medicine Historical Provider MD DOWNS NM PROCEDURES Final R esult * XR Chest 2 Views W Apical Lordotic 3 Views (11/28/2024 10:48 AM CDT) Anatomical Region Laterality Modality Body, Chest N/A Radiographic Mariangel ging Historical Provider MD DOWNS XR PROCEDURES Final R esult * CT Chest WO Contrast (11/26/2024 10:46 AM HAND STAMPER) Anatomical Region Laterality Modality Body N/A Computed Tomogra phy us Preethi Godoy PRACTICE ADMINISTRATOR IMG CT PROCEDURES Final Result * XR Chest PA Lateral 2 Views (11/23/2024 1:30 PM HAND STAMPER) Anatomical Region Laterality Modality Body, Chest N/A Digital Radiogra phy 11/26/2024 2:09 PM HAND STAMPER Narrative 11/26/2024 2:11 PM HAND STAMPER EXAM DESCRIPTION: XR CHEST PA LATERAL 2 [...] bilateral pleural effusion with adjacent airspace opacities, [id number]-[id number]-[id number]-left. Right mid chest linear density , linear [...] signed by Buck DOUGLAS T: Report ID: [id number] Reading Location: [id number] Procedure Note Buck Oleary, DO - 11/26/2024 [...] Small bilateral pleural effusionwith adjacent airspace opacities, [id number]-[id number]-[id number]-left. Right mid chestlinear density , linear atelectasis [...] signed by Buck DOUGLAS T: Report ID: [id number] Reading Location: [place] [address] Preethi Godoy PRACTICE ADMINISTRATOR IMG XR PROCEDURES Final Result * (ABNORMAL) eGFR (11/23/2024 1:22 PM HAND STAMPER) eGFR 34(L) >=60 mL/min/1. 73 m2 Comment: [...] last reviewed 2021. Blood 11/23/2024 1:22 PM HAND STAMPER 11/24/2024 11:14 AM HAND STAMPER us Preethi Godoy PRACTICE ADMINISTRATOR LAB BLOOD ORDERABLES Final Resul t [facility] [address] Department [place] [address] * (ABNORMAL) Differential, auto (11/23/2024 1:22 PM HAND STAMPER) Neutrophil abs 6.3 1.5 - 6.5 K/cumm [...] revised on 2017. Eosinophil pct 2.9 % [facility] Comment: Interpretive [...] revised on 2017. Blood 11/23/2024 1:22 PM HAND STAMPER 11/24/2024 11:08 AM HAND STAMPER us Preethi Godoy PRACTICE ADMINISTRATOR LAB BLOOD ORDERABLES Final Resul t Performing Organization Address [facility] Co de Phone Number [facility] [address] [place] [address] * (ABNORMAL) CBC with auto differential (11/23/2024 1:22 PM HAND STAMPER) WBC 8.4 3.8 - 9.9 K/cumm Hgb [...] [facility] Blood 11/23/2024 1:22 PM HAND STAMPER 11/24/2024 11:08 AM HAND STAMPER us Preethi Godoy PRACTICE ADMINISTRATOR LAB BLOOD ORDERABLES Final Resul t Performing Organization Address [facility] Co de Phone Number [place] [address] Department [employer] [place], [place] [id number] * (ABNORMAL) Iron level (11/23/2024 1:22 PM HAND STAMPER) Iron 47(L) 50 - 150 mcg/dl Blood 11/23/2024 1:22 PM HAND STAMPER 11/24/2024 11:08 AM HAND STAMPER us Preethi Godoy NP LAB BLOOD ORDERABLES Final Resul t [facility] [address] Department [place] [address] * (ABNORMAL) Basic metabolic panel (11/23/2024 1:22 PM HAND STAMPER) Sodium 141 135 - 145 mmol/L Potassium, pl 3.6 3.3 - 4.9 mmol/L [facility] Chloride 109 97 - 110 mmol/L [facility] CO2 21(L) 22 - 32 mmol/L [facility] Anion gap 11 2 - 15 mmol/L [facility] BUN 18 6 - 25 mg/dL [facility] Creatinine 1.97(H) 0.80 - 1.30 mg/dL [...] 2022. Calcium 8.1(L) 8.5 - 10.3 mg/dL [facility] Blood 11/23/2024 1:22 PM HAND STAMPER 11/24/2024 11:08 AM HAND STAMPER us Preethi Gdooy NP LAB BLOOD ORDERABLES Final Resul t [facility] [address] Department [place] [address] * XR Chest Pa Lateral 2 Views (11/16/2024 2:07 PM HAND STAMPER) Anatomical Region Laterality Modality Body, Chest N/A Digital Radiogra phy 11/16/2024 3:45 PM HAND STAMPER Narrative 11/16/2024 3:51 PM HAND STAMPER EXAM DESCRIPTION: XR CHEST PA LATERAL 2 [...] signed by Jeffery CRUMP T: Report ID: [id number] Reading Location: [id number] Procedure Note Jeffery Dawkins MD - 11/16/2024 [...] by Jeffery Dawkins M.D. T: Report ID: [id number] Reading Location: [place] [address] Mandy TOWNSEND IMG XR PROCEDURES Final Result * (ABNORMAL) Influenza A/B, RSV, and COVID-19 PCR Nasopharyngeal (11/14/2024 11:00 AM HAND STAMPER) Pathologist [facility] COVID-19 RNA Negative Negative Influenza A RNA Negative Negative [facility] Influenza B RNA Negative Negative [facility] RSV RNA Positive(A) Negative [facility] Comment: Interpretive data: Testing performed by [facility]. This test is performed using the [employer] Xpert Xpress CoV-2/Flu/RSV plus assay. This is a multiplex, real-time reverse transcriptase PCR assay intended for the qualitative detection of nucleic acid from SARS-CoV-2, influenza A, influenza B, and respiratory syncytial virus. This assay has been cleared by the [place] Food and Drug administration. The performance characteristics have been verified by the [facility]. Results must be considered in the clinical context, and a negative result does not rule out infection. Interpretive Data last revised 2023 Nasopharyngeal 11/14/2024 11 :00 AM HAND STAMPER 11/14/2024 2:41 PM HAND STAMPER Narrative [facility] - 11/14/2024 3:32 PM HAND STAMPER Is the Patient experiencing symptoms consistent with COVID?->Yes Mandy TOWNSEND LAB MICROBIOLOGY - GENER AL ORDERABLES Final Result [facility] [address] [address] Department [place] [address] CH * POC Influenza A/B, COVID-19 antigen (11/14/2024 10:47 AM HAND STAMPER) Influenza A Ag, POC Negative Negative [facility] Influenza B Ag, POC Negative Negative [facility] COVID-19 Ag POC Presumptive Negative Presumptive Negative, Invalid [facility] Nasal 11/14/2024 10:4 7 AM HAND STAMPER Mandy TOWNSEND POINT OF CARE TEST ORDER MANJINDER Final Result Performing Organization Address City/[facility] Co de Phone Number [facility] [address] [place] [address] * Colonoscopy (10/21/2024 10:56 AM HAND STAMPER) Anatomical Region Laterality Modality Other Narrative Procedure Note Kath Shepherd MD - 10/21/2024 10:56 AM CST [facility] Patient Name: Aziza Loya Procedure Date: 10/21/2024 10:56 AM Date of : 1945 Admit Type: Outpatient Age: 79 Gender: Male Attending MD: Kath Shepherd M.D. Room: [facility] ENDOSCOPY ROOM 3 Note Status: [...] The scope was passed under direct vision.The [facility] [id number] endoscope was introducedthrough the anus and [...] signed by Steven RAJPUT T: Report ID: [id number] Reading Location: [id number] Procedure Note Steven Ruano MD - 02/24/2024 [...] Steven Ruano M.D. RB T: Report ID: [id number] Reading Location: [place] [address] [address] TOWNS[address] [facility] CT PROCEDURES Final Res ult * Hepatitis [...] Final Result Performing Organization Address City/State/ZIP Co tn Phone Number [facility] [address] [facility] [place] [address] from Last 3 Months or Most Recently Relevant to Health Maintenance Insurance [facility] MEDICARE MEDICARE [facility] MEDICARE [facility] MEDICARE [facility] MEDICARE [facility] Advance Directives For more information, please contact: [phone] * Full Code (Latest Code Status on [...] 10:45 AM 05/17/2022 5:55 PM Care Teams Psychiatric Aide Relationship Specialty Start Date End Date Preethi Godoy NP [address] [place] [address] PCP - General Family Medicine 08/25/24 Kath Shepherd MD [address] [place] [address] Consulting Physician Gastroenterology 07/22/19 Peter Ya MD [address] [place] [address] Vocational Training Director Cardiology 07/22/19 Aziza Ledesma MD [address] [place] [address] Consulting Physician Neurology 07/22/19 Joshua Butterfield MD [address] [facility] [address] [place] [address] Consulting Physician Urology 07/03/23 Jeffery Bustillos MD [address] [facility] [address] [place] [address] Consulting Physician Cardiovascular Disease 02/06/24 Shimon Schofield MD [address] [place] [address] [place] [address] Consulting Physician Vascular Surgery 02/06/24
--- OUTSIDE RECORDS SUMMARY | 2025-01-26 12:30 | XMS_ITS | CONTINUITY OF CARE DOCUMENT ---
Author Name harshal caputo Address Unknown Organization [facility] Address [address] [place] [address] Phone [phone] Care Team Providers Care Geographic Information Systems Analyst Name Role Phone Yuko LARA, Mathew Unavailable [phone] NADIA KWON MD Unavailable NADIA KWON MD Unavailable [phone] PROBLEMS Condition Status Date Provider Notes PVD active Mathew Huntley MD HTN essential active Mathew Huntley MD CAD s/p CABG active Mathew Huntley MD ENCOUNTERS Date Type Provider Location Encounter Diag nosis - In-person encounter Office Visit Mathew Huntley MD [place] [facility] PVDHTN essentialCAD s/p CABG VITAL SIGNS [...] Payer name Policy type / Coverage type [place] red green party ID [id number] insurance company [id number] [place] MEDICARE Medicare [id number] ADVANCE DIRECTIVES Name Date DISCUSSED - NO [...] Name Provider Procedure Notes S tatus SNOMED-CT: 99799321 Physical Exam, Performed: Pulse Exam of Foot Mathew Huntley MD completed EKG Mathew Huntley MD completed SNOMED-CT: [id number] Current Medications Documented Mathew Huntley MD completed
--- OUTSIDE RECORDS SUMMARY | 2025-01-26 12:30 | XMS_ITS | Encounter Summary ---
Author Organization [facility] Address [address] [place] [address] Care Team Providers Care Solar Fabrication Technician Name Role Phone Kath Shepherd MD Unavailable [phone] Peter Ya MD Unavailable [phone] Vitaly Ledesma MD Unavailable [phone] Joshua Butterfield MD Unavailable [phone] Jeffery Bustillos MD Unavailable [phone] Shimon Schofield MD Unavailable Preethi Godoy NP Primary Care Provider [phone] Encounter Details Date Type Department Care Team (Late st Contact Info) Description 01/18/2025 Results Follow-Up 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 [address] [place] [address] PCP - General Family Medicine 08/25/24 Kath Shepherd MD [address] [place] [address] Consulting Physician Gastroenterology 07/22/19 Peter Ya MD [address] [place] [address] Spice Room Worker Cardiology 07/22/19 Vitaly Ledesma MD [address] [place] [address] Consulting Physician Neurology 07/22/19 Joshua Butterfield MD [address] [place] [address] Consulting Physician Urology 07/03/23 Jeffery Bustillos MD [address] [facility] [address] [facility] [address] [place] [address] Consulting Physician Cardiovascular Disease 02/06/24 Shimon Schofield MD [address] [facility] [address] [place] [address] Consulting Physician Vascular Surgery 02/06/24 documented as of this encounter
--- OUTSIDE RECORDS SUMMARY | 2025-01-26 12:30 | XMS_ITS | Referral Summary ---
Author Organization [facility] Address [address] [place] [address] Care Team Providers Care Associate Faculty Name Role Phone Kath Shepherd MD Unavailable Peter Ya MD Unavailable Aziza Ledesma MD Unavailable [phone] Joshua Butterfield MD Unavailable [phone] Jeffery Bustillos MD Unavailable [phone] Shimon Schofield MD Unavailable Preethi Godoy NP Primary Care Provider Encounters Date Type Department Care Team Description 01/23/2025 Results Follow-Up [facility] Primary Care at [address] [phone] Ankit Pascal MD 01/21/2025 11:15 AM CDT Ancillary Procedure [facility] Cardiology at [address] [place] [phone] Coronary artery disease involving coronary bypass graft of ho-chunk heart, unspecified whether angina present; Fatigue, unspecified type; Hypotension, unspecified hypotension type 01/19/2025 12:03 PM CDT - 01/19/2025 11:59 PM CDT Hospital Encounter [id number] [place] [address] Recurrent UTI Discharge Disposition: Discharge to home or self care 01/19/2025 Results Follow-Up [facility] Primary Care at [address] [phone] Ankit Pascal MD 01/19/2025 12:15 PM CDT Lab [facility] Outpatient Lab at [address] [phone] 01/18/2025 11:20 AM CDT - 01/18/2025 11:59 PM CDT Hospital Encounter [address] [address] CAP (community acquired pneumonia) Discharge Disposition: Discharge to home or self care 01/18/2025 Results Follow-Up [facility] Primary Care at [address] [address] Ankit Pascal MD 01/18/2025 11:30 AM CDT Lab [facility] Outpatient Lab at [address] [phone] KAYLA (generalized anxiety disorder) (Primary Dx); Benign prostatic hyperplasia with urinary retention 01/18/2025 11:45 AM CDT Ancillary Procedure [facility] Imaging at [address] [phone] 01/18/2025 10:30 AM CDT Office Visit [facility] Primary Care at [address] [address] Ankit Pascal MD Hospital discharge follow-up (Primary Dx); CAP (community acquired pneumonia); Recurrent UTI 01/11/2025 Telephone [facility] Primary Care at [address] [address] Preethi Godoy NP APRIL Questions 01/10/2025 Orders Only [facility] Primary Care at [address] [phone] Olive Randolph MD 01/05/2025 Orders Only [facility] Primary Care at [address] [phone] Olive Randolph MD 01/04/2025 Nurse Triage [facility] Primary Care at [address] [phone] Preethi Godoy NP 01/01/2025 Results Follow-Up [facility] Convenient Care at [address] [phone] Brie Mandel NP 12/30/2024 11:55 PM CDT - 12/30/2024 11:59 PM CDT Hospital Encounter [address] [address] Acute cystitis with hematuria; Nasopharyngitis acute Discharge Disposition: Discharge to home or self care 12/30/2024 7:30 PM CDT Office Visit [facility] Care at [address] [phone] Gladys Valdovinos NP Acute cystitis with hematuria (Primary Dx); Nasopharyngitis acute 11/29/2024 Results Follow-Up [facility] Primary Care at [address] [phone] Preethi Godoy NP Pulmonary nodule 1 cm or greater in diameter (Primary Dx) 11/29/2024 Orders Only [facility] Primary Care at [address] [phone] Preethi Godoy NP Abnormal CXR; Pneumonia of both lungs due to infectious organism, unspecified part of lung; Cough, unspecified type; Fever, unspecified fever cause 11/26/2024 Orders Only [facility] Primary Care at [address] [phone] Preethi Godoy NP 11/26/2024 Telephone [facility] Primary Care at [address] [phone] Preethi Godoy NP Medical Question/Miscellaneo us 11/26/2024 Orders Only [facility] Primary Care at [address] [phone] Preethi Godoy NP 11/26/2024 Telephone [facility] Primary Care at [address] [phone] Preethi Godoy NP Symptom Based Call 11/24/2024 Results Follow-Up [facility] Primary Care at [address] [phone] Preethi Godoy NP 11/23/2024 1:22 PM GEOLOGICAL E LOGGER - 11/23/2024 11:59 PM GEOLOGICAL E LOGGER Hospital Encounter [address] [address] Benign hypertension with stage 3a chronic kidney disease (HCC); Iron deficiency anemia due to chronic blood loss Discharge Disposition: Discharge to home or self care 11/23/2024 1:30 PM GEOLOGICAL E LOGGER Lab [facility] Outpatient Lab at [address] [phone] Pneumonia due to infectious organism, unspecified laterality, unspecified part of lung (Primary Dx) 11/23/2024 1:30 PM GEOLOGICAL E LOGGER Ancillary Procedure [facility] Imaging at [address] [phone] Pneumonia due to infectious organism, unspecified laterality, unspecified part of lung 11/23/2024 12:30 PM GEOLOGICAL E LOGGER Office Visit [facility] Primary Care at [address] [phone] Preethi Gdooy NP Pneumonia due to infectious organism, unspecified laterality, unspecified part of lung (Primary Dx); Iron deficiency anemia due to chronic blood loss; Benign hypertension with stage 3a chronic kidney disease (HCC); Persistent atrial fibrillation (HCC) 11/16/2024 Orders Only [facility] Con[facility]ient Care at [address] [phone] Gladys Valdovinos NP Lower respiratory infection (e.g., bronchitis, pneumonia, pneumonitis, pulmonitis) (Primary Dx) 11/16/2024 2:00 PM GEOLOGICAL E LOGGER Ancillary Procedure [facility] Imaging at [address] [phone] Acute cough 11/14/2024 Results Follow-Up [facility] Convenient Care at [address] [phone] Mandy Hernandez PA 11/14/2024 11:00 AM GEOLOGICAL E LOGGER - 11/14/2024 11:59 PM GEOLOGICAL E LOGGER Hospital Encounter [address] [address] Acute cough Discharge Disposition: Discharge to home or self care 11/14/2024 10:00 AM GEOLOGICAL E LOGGER Office Visit [facility] Convenient Care at [address] [phone] Mandy Hernandez PA Acute cough (Primary Dx) 11/10/2024 Orders Only [facility] Primary Care at [address] [phone] Preethi Godoy NP 11/03/2024 Orders Only [facility] Gastroenterology [facility] [address] [place] [address] [place] [address] Kath Shepherd MD from Last 3 Months Allergies No known active allergies Medications coenzyme Q10 10 mg capsule Take 2 capsules (20 mg total) by mouth every morning Active plfcc-2-ueq-ep a-dpa-fish oil 1,050-1,200 mg capsule Take 1 [...] by mouth daily 90 tablet 1 10/28/19 023 Discontinued metoprolol XL (TOPROL-XL) 100 mg 24 hr tablet Take 1 tablet (100 mg total) by mouth daily 30 tablet 11 06/10/20 24 025 Discontinued(R nico) cefdinir (OMNICEF) 300 mg capsuleIndicat ions:Urinary Tract/Genitour [...] Route Frequency Start Date End Date Status [facility] (/[id number]) capsule 4 capsuleIndications:Crohn' s disease of both small and large intestine with other complication (HCC) 4 capsule oral 2 times daily 05/21/2022 Active [facility] BMS-218530/placebo (/[id number]) capsule 4 capsuleIndications:Crohn' s disease of both small and large intestine with other complication (HCC) 4 capsule oral 2 times daily 06/18/2022 Active [facility] BMS-336178/placebo (/[id number]) capsule 4 capsuleIndications:Crohn' s disease of both small and large intestine with other complication (HCC) 4 capsule oral 2 times daily 07/09/2022 Active [facility] BMS-286242/placebo (/[id number]) capsule 4 capsuleIndications:Crohn' s disease of both small and large intestine with other complication (HCC) 4 capsule oral 2 times daily 08/07/2022 Active [facility] BMS-040784/placebo (/[id number]) capsule 4 capsuleIndications:Crohn' s disease of both small and large intestine with other complication (HCC) 4 capsule oral 2 times daily 09/19/2022 Active [facility] BMS-263710/placebo (/[id number]) capsule 4 capsuleIndications:Crohn' s disease of both [...] modification Assessment & Plan (10/03/2023 1:12 PM GEOLOGICAL E LOGGER): Chronic. Due to prior peripheral arterial disease. [...] urologist Assessment & Plan (10/03/2023 1:12 PM GEOLOGICAL E LOGGER): Chronic. Continue medication care per Urology Assessment & Plan (07/03/2023 5:22 PM CDT): Follows with [facility]. Patient on finasteride and does intermittent straight catheterization Protein-calorie malnutrition, mild 07/03/2023 Overview (07/03/2023): Patient with low BMI. Less protein level was low. Monitor weight Assessment & Plan (02/06/2024 4:55 PM CDT): Patient has had borderline protein calorie malnutrition. Monitor his protein levels on labs. Encourage adequate nutrition. Avoid additional weight loss Assessment & Plan (10/03/2023 1:12 PM GEOLOGICAL E LOGGER): Chronic. BMI remains at the lower end arrange. Encouraged adequate nutrition. Monitor History of gout 07/03/2023 Assessment & Plan (02/06/2024 4:55 PM CDT): Chronic. Denies history of recent flares. Continue allopurinol for prophylaxis. Check uric acid Assessment & Plan (10/03/2023 1:12 PM GEOLOGICAL E LOGGER): Chronic. Denies any history of gout in [...] 03/14/2023 Assessment & Plan (10/03/2023 1:13 PM GEOLOGICAL E LOGGER): Chronic. May occasionally increase in size. Minimal pain. Has deferred elective repair in the past Persistent atrial fibrillation 12/04/2021 Assessment & Plan (11/23/2024 1:36 PM GEOLOGICAL E LOGGER): Rate controlled in office, continuing follow up with Cardiology. Assessment & Plan (03/01/2024 7:51 AM CDT): Stable continue metoprolol. Assessment & Plan (02/06/2024 4:55 PM CDT): Chronic. Controlled rate with metoprolol. Continue. Continue aspirin for stroke prophylaxis Assessment & Plan (10/03/2023 1:12 PM GEOLOGICAL E LOGGER): Chronic. Continue risk factor modification. Continue ASA [...] Monitor Assessment & Plan (10/03/2023 1:11 PM GEOLOGICAL E LOGGER): Chronic. Denies significant worsening. No agitation recently. [...] They denies significant agitation Cerebral amyloid angiopathy ([facility]) 02/15/2020 Assessment & Plan (02/06/2024 4:54 PM CDT): Chronic. Memory has worsened slightly in the last year. He does have some fluctuations at times. No real agitation. Target good blood pressure control. Continue aspirin for his other issues. Would be cautious with more aggressive anticoagulation given history of amyloid angiopathy Assessment & Plan (10/03/2023 1:11 PM GEOLOGICAL E LOGGER): Chronic. Denies any progression of symptoms Assessment & Plan (07/03/2023 5:18 PM CDT): Chronic. Control blood pressure and modify risk factors as able. Continue aspirin given AFib but would be cautious with stronger anticoagulants given increased bleeding risk with cerebral amyloid angiopathy Peripheral artery disease 09/10/2019 Overview (09/10/2019): Added automatically from request for surgery [id number] Assessment & Plan (09/03/2024 10:57 AM GEOLOGICAL E LOGGER): Stable lower extremity occlusive disease. Continue risk [...] duplex. Assessment & Plan (10/03/2023 1:11 PM GEOLOGICAL E LOGGER): Chronic. Denies recent claudication symptoms. Continue ASA, statin and Pletal Assessment & Plan (07/03/2023 5:22 PM CDT): Chronic. 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 Denies current sores on his feet. Follows with Podiatry in [place]. On cilostazol Iron deficiency anemia due to [...] 02/17/2019 Assessment & Plan (11/23/2024 1:35 PM GEOLOGICAL E LOGGER): BP normal in office, continuing current regimen. [...] dehydrate Assessment & Plan (10/03/2023 1:10 PM GEOLOGICAL E LOGGER): Chronic. Blood pressure controlled. Continue current prescription [...] continue Assessment & Plan (10/03/2023 1:10 PM GEOLOGICAL E LOGGER): Chronic. Symptomatically improved per patient. Continue medication and care per GI Assessment & Plan (07/03/2023 5:20 PM CDT): Chronic. Follows with Gastroenterology. On scar oz and sulfasalazine. Continue medication and care per them CAD (coronary artery disease) 12/04/2018 Assessment & Plan (09/03/2024 10:57 AM GEOLOGICAL E LOGGER): Stable continue ASA and Lasix Assessment & Plan (02/06/2024 4:51 PM CDT): Chronic. Denies chest pain. Continue risk factor modification with statin, aspirin, blood pressure control. Target LDL less than 70 Assessment & Plan (10/03/2023 1:10 PM GEOLOGICAL E LOGGER): Chronic. Denies chest pain. Follows with cardiology. [...] 12/30/2017 Assessment & Plan (08/25/2024 4:06 PM GEOLOGICAL E LOGGER): Updated labs ordered, Hemoglobin was 9 in [...] infusions Assessment & Plan (10/03/2023 1:10 PM GEOLOGICAL E LOGGER): Chronic. Follows with GI and Hematology. Has received iron infusions. Often does B12 injections Assessment & Plan (07/03/2023 5:15 PM CDT): Chronic. Follows with GI and Hematology. Received iron infusions Hypercholesterolemia 02/05/2011 Assessment & Plan (09/03/2024 10:57 AM GEOLOGICAL E LOGGER): Stable continue statin therapy. Assessment & Plan (03/01/2024 7:50 AM CDT): Stable continue statin therapy. Assessment & Plan (02/06/2024 4:53 PM CDT): Chronic. Tolerates atorvastatin. Continue. Check cholesterol level and adjust for an LDL goal of at least less than 70 with optimal less than 55 Assessment & Plan (10/03/2023 1:10 PM GEOLOGICAL E LOGGER): Chronic. Tolerates current prescription medication. 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 [employer] Araceli 12/09/2020 [id number] / [id number] / [id number] Procedures Procedure Name Priority Date/Time Associated Diagnosis Comments TRANSTHORACIC ECHO (TTE) COMPLETE W DOPPLER/CF WO CONTRAST Routine 01/21/2025 11:37 AM CDT Coronary artery disease involving coronary bypass graft of ho-chunk heart, unspecified whether angina present Fatigue, unspecified [...] Read Routine (OP Routine) 11/26/2024 10:46 AM GEOLOGICAL E LOGGER Abnormal CXR Pneumonia of both lungs due to infectious organism, unspecified part of lung Cough, unspecified type Fever, unspecified fever cause XR CHEST PA LATERAL 2 VIEWS Schedule Routine, Read Routine (OP Routine) 11/23/2024 1:30 PM GEOLOGICAL E LOGGER Pneumonia due to infectious organism, unspecified laterality, unspecified part of lung EGFR Routine 11/23/2024 1:22 PM GEOLOGICAL E LOGGER Benign hypertension with stage 3a chronic kidney disease (HCC) DIFFERENTIAL AUTO Routine 11/23/2024 1:2 2 PM GEOLOGICAL E LOGGER Iron deficiency anemia due to chronic blood loss Benign hypertension with stage 3a chronic kidney disease (HCC) CBC WITH AUTO DIFFERENTIAL Routine 11/23/2024 1:22 PM GEOLOGICAL E LOGGER Iron deficiency anemia due to chronic blood loss Benign hypertension with stage 3a chronic kidney disease (HCC) IRON Routine 11/23/2024 1:22 PM GEOLOGICAL E LOGGER Iron deficiency anemia due to chronic blood loss BASIC METABOLIC PANEL Routine 11/23/2024 1:22 PM GEOLOGICAL E LOGGER Benign hypertension with stage 3a chronic kidney disease (HCC) XR CHEST PA LATERAL 2 VIEWS Schedule YULIANA, Read YULIANA (Appt Today, Awaiting Results) 11/16/2024 2:07 PM GEOLOGICAL E LOGGER Acute cough INFLUENZA A/B, RSV, AND COVID-19 PCR Routine 11/14/2024 11:00 AM GEOLOGICAL E LOGGER Acute cough POC INFLUENZA A/B, COVID-19 ANTIGEN Routine 11/14/2024 10:47 AM GEOLOGICAL E LOGGER Acute cough COLONOSCOPY 10/21/2024 10:56 AM GEOLOGICAL E LOGGER CTA ABDOMEN PELVIS W WO CONTRAST Schedule [...] AM CDT Narrative 01/21/2025 12:31 PM CDT [facility] Cardiology [address], [address], [place] [address] P:[phone] P:[phone] Echocardiographic Report Patient Name: VINCENZO Israel ERVIN : 1945 Study Date: 01/21/2025 11:20:02 AM Gender: M Tech: Location: [facility] Ref Provider: MADAI ENRIQUE Height(Cm): 178 BSA: [...] FINDINGS: Interpretation Site: Exam was interpreted at [facility]. Left Ventricle: Mild concentric left ventricular [...] Procedure Note Harley Bowser MD - 01/21/2025 [facility] Cardiology [address], [address], [place] [address] P:[phone] P:[phone] Echocardiographic Report Patient Name: AZIZA LOYA O : 1945 Study Date: 01/21/2025 11:20:02 AM Gender: M Tech: Location: SE Ref Provider: MADAI ENRIQUE Height(Cm): 178 BSA: [...] FINDINGS: Interpretation Site: Exam was interpreted at [facility]. Left Ventricle: Mild concentric left ventricular [...] tendency for uric acid stone formation. Source: [employer] Current Interpretive Data was last revised on [...] to microscopic UA will be performed. CERNER Urine 01/19/2025 12:0 3 PM CDT 01/19/2025 7:25 PM CDT Ankit Pascal MD LAB MICROBIOLOGY - GENERAL ORDERABLES Final Result Performing Organization Address City/[facility] [address]/[facility] Co de Phone Number [facility] [place] [phone] [place] [address] * (ABNORMAL) Urinalysis, microscopic only (01/19/2025 12:03 PM CDT) WBC, ur 6-10(A) 0 - 5 /HPF RBC, ur 0-2 0 - 2 /HPF CERNER Epithelial cells, squamous, ur 1-5 0 - 5 /HPF CERNER CH Bacteria, ur Trace(A) CERNER CH Culture Reflex Comment Reflex conditions for urine culture (WBC >10) not met. CERNER Urine 01/19/2025 12:0 3 PM CDT 01/19/2025 7:25 PM CDT Ankit Pascal MD LAB URINE ORDERABLES Final Result Performing Organization Address City/[facility] [address]/[facility] Co de Phone Number [facility] [place]OWNLEE [phone] [address] Department [place] [place] [address] * XR Chest Pa Lateral 2 Views [...] Brown Ennis M.D. RW T: Report ID: [id number] Reading Location: [id number] Procedure Note Brown Ennis MD - 01/18/2025 [...] Brown Ennis M.D. RW T: Report ID: [id number] Reading Location: [id number] us Ankit Pascal MD IMG XR PROCEDURES Final Res ult * (ABNORMAL) Differential, auto (01/18/2025 11:20 AM CDT) Neutrophil abs 7.11(H) 1.50 - 6.50 K/cumm Imm gran abs 0.04 0.00 - 0.10 K/cumm [facility] Lymphocyte abs 1.01 0.80 - 3.30 K/cumm [facility] Monocyte abs 0.86(H) 0.20 - 0.80 K/cumm [facility] Eosinophil abs 0.26 0.00 - 0.50 K/cumm [facility] Basophil abs 0.06 0.00 - 0.10 K/cumm [facility] Neutrophil pct 76.2 % [facility] Comment: Interpretive Data Percent cell count reference ranges are not reported, since discordance with absolute values may lead to misinterpretation of CBC data. Current Interpretive Data was last revised on 2017. Imm gran pct 0.4 % [facility] Comment: Interpretive Data Percent cell count reference ranges are not reported, since discordance with absolute values may lead to misinterpretation of CBC data. Current Interpretive Data was last revised on 2017. Lymphocyte pct 10.8 % [facility] Comment: Interpretive Data Percent cell count reference ranges are not reported, since discordance with absolute values may lead to misinterpretation of CBC data. Current Interpretive Data was last revised on 2017. Monocyte pct 9.2 % [facility] Comment: Interpretive Data Percent cell count reference ranges are not reported, since discordance with absolute values may lead to misinterpretation of CBC data. Current Interpretive Data was last revised on 2017. Eosinophil pct 2.8 % [facility] Comment: Interpretive Data Percent cell count reference ranges are not reported, since discordance with absolute values may lead to misinterpretation of CBC data. Current Interpretive Data was last revised on 2017. Basophil pct 0.6 % [facility] Comment: Interpretive Data Percent cell count reference ranges are not reported, since discordance with absolute values may lead to misinterpretation of CBC data. Current Interpretive Data was last revised on 2017. Blood 01/18/2025 11:2 0 AM CDT 01/18/2025 8:27 PM CDT us Ankit Pascal MD LAB BLOOD ORDERABLES Final Result [facility] [id number] Department [place] [address] * (ABNORMAL) CBC with auto differential (01/18/2025 11:20 AM CDT) WBC 9.34 3.80 - 9.90 K/cumm Hgb 11.4(L) 13.0 - 17.5 g/dL CERNER CH Hct 37.5(L) 38.9 - 50.3 % [facility] Plt 284 150 - 400 K/cumm CERNER MPV 9.9 9.1 - 12.3 fL [facility] RBC 3.75(L) 4.30 - 5.80 M/cumm CERNER CH MCV 100.0(H) 81.3 - 96.4 fL CERNER CH MCH 30.4 27.1 - 33.3 pg CERNER CH MCHC 30.4(L) 32.3 - 35.7 g/dL CERNER CH RDW CV 13.7 11.1 - 14.9 % [facility] RDW SD 50.4(H) 35.7 - 48.1 fL [facility] NRBC abs 0.00 0.00 - 0.01 K/cumm [facility] Blood 01/18/2025 11:2 0 AM CDT 01/18/2025 8:27 PM CDT Ankit Pascal MD LAB BLOOD ORDERABLES Final Result [facility] [id number] [facility] Department [place] [address] * XR Chest 1 View (01/07/2025 12:38 [...] CDT) Influenza A Ag, POC Negative Negative [facility] EDW Influenza B Ag, POC Negative Negative [facility] COVID-19 Ag POC Presumptive Negative Presumptive Negative, Invalid [facility] Nasal 12/30/2024 7:53 PM CDT us Gladys Valdovinos [employer] HANDSTITCHING MACHINE POINT OF CARE TEST ORDERABLES Final Result Performing Organization Address City/[facility] [address]/ZIP Co de Phone Number [facility] EDW [facility] [address] * Throat culture Throat (12/30/2024 7:47 PM CDT) Report Final Report: No growth of pathogens. Comment:Testing performed by : [facility], [address] [place]., [address] Throat 12/30/2024 7:47 PM CDT 12/31/2024 2:01 AM CDT Narrative [facility] [place] 01/01/2025 2:34 AM CDT Testing performed by [facility] Microbiology Laboratory ([phone]). us Gladys Valdovinos NP LAB MICROBIOLOGY - GENERAL ORD ERABLES Final Result Performing Organization Address City/[facility] [address]/[facility] Co de Phone Number TRAVIS [phone] [address] Department of Laboratories [place], [place] [id number] * POCT rapid strep A (12/30/2024 7:46 [...] Large Ketones, ur, POC Negative Negative Specific [place], POC 1.020 1.003 - 1.030 Blood, ur, POC Small(A) Negative pH, ur, POC 5.5 5.0 - 8.0 Protein, ur, POC Negative Negative Urobilinogen, urine, POC 0.2 0.2 - 1.0 mg/dL Nitrite, ur, POC Positive(A) Negative Leukocytes, ur, POC Moderate(A) Negative Lot Number [id number] Urine 12/30/2024 7:41 PM CDT Gladys Valdovinos NP POINT OF CARE TEST ORDERABLES Final Result * (ABNORMAL) Urine culture Urine, clean voided (12/30/2024 7:30 PM CDT) Report Final Report: Greater than or equal to 100,000 colonies/mL of Klebsiella pneumoniae (.) Comment:Testing performed by : [facility], [address] [place]., [address] Organism KLEBSIELLA PNEUMONIAE [facility] Urine, clean voided 12/30/2024 7:30 PM CDT 12/31/2024 2:01 AM CDT Narrative [facility]E - 01/02/2025 8:39 AM CDT Testing performed by [facility] ([phone]) Organism Antibiotic Method Susceptibility Klebsiella pneumoniae Ampicillin [...] - GENERAL ORD ERABLES Final Result [facility] [address] Department [place] [address] * NM Brain Imaging SPECT/CT (11/28/2024 10:49 [...] CT Chest WO Contrast (11/26/2024 10:46 AM GEOLOGICAL E LOGGER) Anatomical Region Laterality Modality Body N/A Computed Tomogra phy Preethi Godoy NP IMG CT PROCEDURES Final Result * XR Chest PA Lateral 2 Views (11/23/2024 1:30 PM GEOLOGICAL E LOGGER) Anatomical Region Laterality Modality Body, Chest N/A Digital Radiogra phy 11/26/2024 2:09 PM GEOLOGICAL E LOGGER Narrative 11/26/2024 2:11 PM GEOLOGICAL E LOGGER EXAM DESCRIPTION: XR CHEST PA LATERAL 2 [...] bilateral pleural effusion with adjacent airspace opacities, [id number]-left. Right mid chest linear density , linear [...] Buck Oleary D.O. AP T: Report ID: [id number] Reading Location: [place] [address] Procedure Note Buck Oleary, DO - 11/26/2024 [...] Small bilateral pleural effusionwith adjacent airspace opacities, [id number]-left. Right mid chestlinear density , linear atelectasis [...] Buck Oleary D.O. AP T: Report ID: [id number] Reading Location: [place] [address] Preethi Godoy NP IMG XR PROCEDURES Final Result * (ABNORMAL) eGFR (11/23/2024 1:22 PM GEOLOGICAL E LOGGER) eGFR 34(L) >=60 mL/min/1. 73 m2 Comment: [...] last reviewed 2021. Blood 11/23/2024 1:22 PM GEOLOGICAL E LOGGER 11/24/2024 11:14 AM GEOLOGICAL E LOGGER Preethi Godoy NP LAB BLOOD ORDERABLES Final Resul t [facility] [id number] [place] [address] * (ABNORMAL) Differential, auto (11/23/2024 1:22 PM GEOLOGICAL E LOGGER) Neutrophil abs 6.3 1.5 - 6.5 K/cumm Imm gran abs 0.0 0.0 - 0.1 K/cumm [facility] Lymphocyte abs 0.7(L) 0.8 - 3.3 K/cumm [facility] Monocyte abs 1.0(H) 0.2 - 0.8 K/cumm [facility] Eosinophil abs 0.2 0.0 - 0.5 K/cumm [facility] Basophil abs 0.1 0.0 - 0.1 K/cumm [facility] Neutrophil pct 75.6 % [facility] Comment: Interpretive Data Percent cell count reference ranges are not reported, since discordance with absolute values may lead to misinterpretation of CBC data. Current Interpretive Data was last revised on 2017. Imm gran pct 0.5 % [facility] Comment: Interpretive Data Percent cell count reference ranges are not reported, since discordance with absolute values may lead to misinterpretation of CBC data. Current Interpretive Data was last revised on 2017. Lymphocyte pct 8.8 % [facility] Comment: Interpretive Data Percent cell count reference ranges are not reported, since discordance with absolute values may lead to misinterpretation of CBC data. Current Interpretive Data was last revised on 2017. Monocyte pct 11.6 % [facility] Comment: Interpretive Data Percent cell [...] revised on 2017. Basophil pct 0.6 % [facility] Comment: Interpretive Data Percent cell count reference ranges are not reported, since discordance with absolute values may lead to misinterpretation of CBC data. Current Interpretive Data was last revised on 2017. Blood 11/23/2024 1:22 PM GEOLOGICAL E LOGGER 11/24/2024 11:08 AM GEOLOGICAL E LOGGER us Preethi Godoy NP LAB BLOOD ORDERABLES Final Resul t [facility] [address] Department [place] [address] * (ABNORMAL) CBC with auto differential (11/23/2024 1:22 PM GEOLOGICAL E LOGGER) WBC 8.4 3.8 - 9.9 K/cumm Hgb 9.7(L) 13.0 - 17.5 g/dL [facility] Hct 31.3(L) 38.9 - 50.3 % [facility] Plt 179 150 - 400 K/cumm [facility] MPV 10.2 9.1 - 12.3 fL [facility] RBC 3.12(L) 4.30 - 5.80 M/cumm [facility] MCV 100.3(H) 81.3 - 96.4 fL [facility] MCH 31.1 27.1 - 33.3 pg [facility] MCHC 31.0(L) 32.3 - 35.7 g/dL [facility] RDW CV 17.2(H) 11.1 - 14.9 % [facility] RDW SD 64.2(H) 35.7 - 48.1 fL [facility] NRBC abs 0.00 0.00 - 0.01 K/cumm [facility] Blood 11/23/2024 1:22 PM GEOLOGICAL E LOGGER 11/24/2024 11:08 AM GEOLOGICAL E LOGGER Preethi Godoy [employer] LAB BLOOD ORDERABLES Final Resul t Performing Organization Address [facility] [address]/[facility] de Phone Number [facility] [address] Department of [employer] [facility] [place], [place] [id number] * (ABNORMAL) Iron level (11/23/2024 1:22 PM GEOLOGICAL E LOGGER) Iron 47(L) 50 - 150 mcg/dl Blood 11/23/2024 1:22 PM GEOLOGICAL E LOGGER 11/24/2024 11:08 AM GEOLOGICAL E LOGGER us Preethi Godoy [employer] LAB BLOOD ORDERABLES Final Resul t Performing Organization Address [facility] de Phone Number [facility] [address] [place] [address] * (ABNORMAL) Basic metabolic panel (11/23/2024 1:22 PM GEOLOGICAL E LOGGER) Sodium 141 135 - 145 mmol/L Potassium, pl 3.6 3.3 - 4.9 mmol/L [facility] Chloride 109 97 - 110 mmol/L [facility] CO2 21(L) 22 - 32 mmol/L [facility] Anion gap 11 2 - 15 mmol/L [facility] BUN 18 6 - 25 mg/dL [facility] Creatinine 1.97(H) 0.80 - 1.30 mg/dL [facility] Glucose 75 70 - 199 mg/dL [facility] Comment: Interpretive Data Fasting glucose >/= [...] Calcium 8.1(L) 8.5 - 10.3 mg/dL [facility] Blood 11/23/2024 1:22 PM GEOLOGICAL E LOGGER 11/24/2024 11:08 AM GEOLOGICAL E LOGGER us Preethi Godoy NP LAB BLOOD ORDERABLES Final Resul t [facility] [address] Department [place] [address] * XR Chest Pa Lateral 2 Views (11/16/2024 2:07 PM GEOLOGICAL E LOGGER) Anatomical Region Laterality Modality Body, Chest N/A Digital Radiogra phy 11/16/2024 3:45 PM GEOLOGICAL E LOGGER Narrative 11/16/2024 3:51 PM GEOLOGICAL E LOGGER EXAM DESCRIPTION: XR CHEST PA LATERAL 2 [...] signed by Jeffery CRUMP T: Report ID: [id number] Reading Location: [id number] Procedure Note Jeffery Dawkins MD - 11/16/2024 [...] signed by Jeffery CRUMP T: Report ID: [id number] Reading Location: [id number] Mandy TOWNSEND IMG XR PROCEDURES Final Result * (ABNORMAL) Influenza A/B, RSV, and COVID-19 PCR Nasopharyngeal (11/14/2024 11:00 AM GEOLOGICAL E LOGGER) Pathologist [facility] COVID-19 RNA Negative Negative Influenza A RNA Negative Negative [facility] Influenza B RNA Negative Negative [facility] RSV RNA Positive(A) Negative [facility] Comment: Interpretive data: Testing performed by [facility]. This test is performed using the RedCap Xpert Xpress CoV-2/Flu/RSV plus assay. This is a multiplex, real-time reverse transcriptase PCR assay intended for the qualitative detection of nucleic acid from SARS-CoV-2, influenza A, influenza B, and respiratory syncytial virus. This assay has been cleared by the [place] Food and Drug administration. The performance characteristics have been verified by the [facility]. Results must be considered in the clinical context, and a negative result does not rule out infection. Interpretive Data last revised 2023 Nasopharyngeal 11/14/2024 11 :00 AM GEOLOGICAL E LOGGER 11/14/2024 2:41 PM GEOLOGICAL E LOGGER Narrative [facility] - 11/14/2024 3:32 PM GEOLOGICAL E LOGGER Is the Patient experiencing symptoms consistent with COVID?->Yes [facility] LAB MICROBIOLOGY - GENER AL ORDERABLES Final Result [facility] [address] Department [place] [address] * POC Influenza A/B, COVID-19 antigen (11/14/2024 10:47 AM GEOLOGICAL E LOGGER) Influenza A Ag, POC Negative Negative [facility] Influenza B Ag, POC Negative Negative [facility] COVID-19 Ag POC Presumptive Negative Presumptive Negative, Invalid [facility] Nasal 11/14/2024 10:4 7 AM GEOLOGICAL E LOGGER us M[facility]NSEND POINT OF CARE TEST ORDER MANJINDER Final Result [facility] [address] * Colonoscopy (10/21/2024 10:56 AM GEOLOGICAL E LOGGER) Anatomical Region Laterality Modality Other Narrative Procedure Note Kath Shepherd MD - 10/21/2024 10:56 AM CST [facility] Patient Name: Aziza Loya Procedure Date: 10/21/2024 10:56 AM Date of : 1945 Admit Type: Outpatient Age: 79 Gender: Male Attending MD: Kath Shepherd M.D. Room: [facility] ENDOSCOPY ROOM 3 Note Status: Addendum Procedure: Colonoscopy Indications: Disease activity assessment of Crohn's disease ofthe small bowel and colon Referring MD: Christopher EmmanuelNHansaPHansa Providers: Kath Shepherd M.D., Isabell Bella M.D. [...] The scope was passed under direct vision.The [facility] [id number] endoscope was introducedthrough the anus and [...] Kath Shepherd M.D. 12/30/2024 8:27:47 AM . Kath Shepherd MD ENDOSCOPY PROCEDURES Edited R [...] signed by Steven RAJPUT T: Report ID: [id number] Reading Location: [id number] Procedure Note Steven Ruano MD - 02/24/2024 [...] Steven Ruano M.D. RB T: Report ID: [id number] Reading Location: [id number] Annie TOWNSEND IMG CT PROCEDURES Final Res [...] - GEN ERAL ORDERABLES Final Result [facility] [address] [place] [address] from Last 3 Months or Most Recently Relevant to Health Maintenance Insurance [facility] MEDICARE MEDICARE [facility] MEDICARE [facility] MEDICARE [facility] MEDICARE AARP Advance Directives For more information, please contact: [phone] * Full Code (Latest Code Status on [...] 10:45 AM 05/17/2022 5:55 PM Care Teams Associate Faculty Relationship Specialty Start Date End Date Preethi Godoy NP [address] [address] PCP - General Family Medicine 08/25/24 Kath Shepherd MD [address] [place] [address] Consulting Physician Gastroenterology 07/22/19 Peter Ya MD [address] [place] [address] Auto Bumper Mechanic Cardiology 07/22/19 Aziza Ledesma MD [address] [place] [address] Consulting Physician Neurology 07/22/19 Joshua Butterfield MD [address] [facility] [address] [place] [address] Consulting Physician Urology 07/03/23 Jeffery Bustillos MD [address] [facility] [address] [place] [address] Consulting Physician Cardiovascular Disease 02/06/24 Shimon Schofield MD [address] [address] Consulting Physician Vascular Surgery 02/06/24
[2025-01-26 14:01] LABS: Cholesterol 108 mg/dL (0-200); HDL Direct 39 mg/dL; Triglycerides 96 mg/dL (<150)
[2025-01-26 14:12] LABS: LDL Cholesterol Direct 39 mg/dL
== END 2025-01-26 12:17 | disposition home or self-care (01) ==
PROVIDERS: PCP Nurse Practitioner Family; Visit Provider Psychiatry & Neurology Neurology
DX: I63.9 Cerebral infarction, unspecified (principal); F01.50 Vascular dementia, unspecified severity, without behavioral disturbance, psychotic disturbance, mood disturbance, and anxiety; I67.9 Cerebrovascular disease, unspecified
CPT/HCPCS: 36415; 80061

== ENCOUNTER 2025-04-12 14:13 | Emergency (ER) | payer MEDICARE, SELFPAY ==
[2025-04-12 14:13] VITALS: BP 124/97; PULSE 87; RESP 16; TEMP 36.3; O2SAT 92
--- OUTSIDE RECORDS SUMMARY | 2025-04-12 14:16 | XMS_ITS | Clinical Summary ---
Author Organization [facility] Address [address] [place] [address] Care Team Providers Care Supervisor Production Managing Name Role Phone Kath Shepherd MD Unavailable [phone] Peter Ya MD Unavailable [phone] Aziza Ledesma MD Unavailable [phone] Joshua Butterfield MD Unavailable [phone] Jeffery Bustillos MD Unavailable [phone] Shimon Schofield MD Unavailable Preethi Godoy NP Primary Care Provider [phone] Allergies No known active allergies Medications coenzyme Q10 10 mg capsule Take 2 capsules (20 mg total) by mouth every morning Active vfesm-2-wtl-ep a-dpa-fish oil 1,050-1,200 mg capsule Take 1 [...] A-D ORAL) Take by mouth prn Active cilostazoL (PLETAL) 100 mg tablet Take [...] capsule 1 capsule (0.4 mg total) Active donepeziL (ARICEPT) 5 mg tablet Take 1 tablet (5 mg total) by mouth nightly Active cyanocobalamin (Vitamin B-12) 1,000 mcg/mL injection [...] DAILY 90 tablet 1 11/23/19 25 Active albuterol HFA (PROVENTIL HFA,VENTOLIN HFA,PROAIR HFA) 90 mcg/actuation inhaler Inhale 2 puffs every 4 (four) hours as needed for wheezing or shortness of breath 1 each 11/27/19 25 Active metoprolol XL (TOPROL-XL) 25 mg extended release tablet Take 3 tablets (75 mg total) by mouth nightly 01/19/20 25 Active ferrous sulfate (FeroSuL) 325 mg (65 mg of elemental iron) tablet TAKE 1 TABLET BY MOUTH EVERY DAY WITH BREAKFAST 100 tablet 1 02/10/20 25 Active metoprolol tartrate (LOPRESSOR) 25 mg immediate release tablet TAKE 2 TABLETS BY MOUTH TWICE DAILY. 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),Cerebral amyloid angiopathy (HCC),KAYLA (generalized anxiety disorder) Take 1 tablet (20 mg total) by mouth daily 10 tablet 02/16/20 25 Active memantine (NAMENDA) 10 mg tablet Take 1 tablet (10 mg total) by mouth 2 (two) times a day 02/08/20 25 Active risankizumab-r zaa (Skyrizi) 360 mg/2.4 mL (150 mg/mL) wearable injectorIndica tions:Crohn's Disease Inject 360 mg under the skin every 8 (eight) weeks 2.4 mL 2 03/08/20 25 Active mupirocin (BACTROBAN) 2 % ointment Apply topically 3 (three) times a day for 10 days 22 g 04/06/20 25 025 Active hydrocortisone 2.5 % ointmentIndica tions:Contact dermatitis due to plants, except food, unspecified contact dermatitis type Apply topically 2 (two) times a day as needed for rash for up to 10 days 30 g 04/06/20 25 025 Active nystatin cream Apply topically 2 (two) times a day for 7 days Use for two days after rash has resolved. 15 g 04/12/20 25 025 Active amLODIPine (NORVASC) 5 mg tablet Take 0.5 tablets (2.5 mg total) by mouth 2 (two) times a day 10/08/19 23 023 Discontinued irbesartan (AVAPRO) 150 mg tablet Take 0.5 tablets (75 mg total) by mouth daily 90 tablet 1 10/28/19 23 023 Discontinued mupirocin (BACTROBAN) 2 % ointmentIndica tions:Skin tear of left elbow without complication, initial encounter,Skin tear of left forearm without complication, initial encounter Apply topically 3 (three) times a day 22 g 05/06/20 23 025 Discontinued(T herapy completed) nitrofurantoin monohydrate (MACROBID) 100 mg capsuleIndicat ions:Urinary Tract/Genitour inary Infection Take 1 capsule (100 mg total) by mouth 2 (two) times a day for 7 days 14 capsule 03/18/20 25 025 Hospital, Clinic, or Other Facility Administered Medication Ordered Dose Route Frequency Start Date End Date Status [facility] BMS-190385/placebo ([id number]) capsule 4 capsuleIndications:Crohn' s disease of both small and large intestine with other complication (HCC) 4 capsule oral 2 times daily 05/21/2022 Active [facility] BMS-715794/placebo ([id number]) capsule 4 capsuleIndications:Crohn' s disease of both small and large intestine with other complication (HCC) 4 capsule oral 2 times daily 06/18/2022 Active [facility] BMS-307876/placebo ([id number]) capsule 4 capsuleIndications:Crohn' s disease of both small and large intestine with other complication (HCC) 4 capsule oral 2 times daily 07/09/2022 Active [facility] BMS-535914/placebo (/[id number]) capsule 4 capsuleIndications:Crohn' s disease of both small and large intestine with other complication (HCC) 4 capsule oral 2 times daily 08/07/2022 Active [facility] BMS-489124/placebo ([id number]) capsule 4 capsuleIndications:Crohn' s disease of both small and large intestine with other complication (HCC) 4 capsule oral 2 times daily 09/19/2022 Active [facility] BMS-710318/placebo ([id number]) capsule 4 capsuleIndications:Crohn' s disease of both [...] modification Assessment & Plan (10/03/2023 1:12 PM NEONATAL SOCIAL WORKER): Chronic. Due to prior peripheral arterial [...] urologist Assessment & Plan (10/03/2023 1:12 PM NEONATAL SOCIAL WORKER): Chronic. Continue medication care per Urology Assessment & Plan (07/03/2023 5:22 PM CDT): Follows with [facility] Dr. Butterfield. Patient on finasteride and does intermittent straight catheterization Protein-calorie malnutrition, mild 07/03/2023 Overview (07/03/2023): Patient with low BMI. Less protein level was low. Monitor weight Assessment & Plan (02/06/2024 4:55 PM CDT): Patient has had borderline protein calorie malnutrition. Monitor his protein levels on labs. Encourage adequate nutrition. Avoid additional weight loss Assessment & Plan (10/03/2023 1:12 PM NEONATAL SOCIAL WORKER): Chronic. BMI remains at the lower end arrange. Encouraged adequate nutrition. Monitor History of gout 07/03/2023 Assessment & Plan (02/06/2024 4:55 PM CDT): Chronic. Denies history of recent flares. Continue allopurinol for prophylaxis. Check uric acid Assessment & Plan (10/03/2023 1:12 PM NEONATAL SOCIAL WORKER): Chronic. Denies any history of gout [...] 03/14/2023 Assessment & Plan (10/03/2023 1:13 PM NEONATAL SOCIAL WORKER): Chronic. May occasionally increase in size. Minimal pain. Has deferred elective repair in the past Persistent atrial fibrillation 12/04/2021 Assessment & Plan (11/23/2024 1:36 PM NEONATAL SOCIAL WORKER): Rate controlled in office, continuing follow up with Cardiology. Assessment & Plan (03/01/2024 7:51 AM CDT): Stable continue metoprolol. Assessment & Plan (02/06/2024 4:55 PM CDT): Chronic. Controlled rate with metoprolol. Continue. Continue aspirin for stroke prophylaxis Assessment & Plan (10/03/2023 1:12 PM NEONATAL SOCIAL WORKER): Chronic. Continue risk factor modification. Continue [...] Monitor Assessment & Plan (10/03/2023 1:11 PM NEONATAL SOCIAL WORKER): Chronic. Denies significant worsening. No agitation [...] They denies significant agitation Cerebral amyloid angiopathy ([facility]) 02/15/2020 Assessment & Plan (02/06/2024 4:54 PM CDT): Chronic. Memory has worsened slightly in the last year. He does have some fluctuations at times. No real agitation. Target good blood pressure control. Continue aspirin for his other issues. Would be cautious with more aggressive anticoagulation given history of amyloid angiopathy Assessment & Plan (10/03/2023 1:11 PM NEONATAL SOCIAL WORKER): Chronic. Denies any progression of symptoms Assessment & Plan (07/03/2023 5:18 PM CDT): Chronic. Control blood pressure and modify risk factors as able. Continue aspirin given AFib but would be cautious with stronger anticoagulants given increased bleeding risk with cerebral amyloid angiopathy Peripheral artery disease 09/10/2019 Overview (09/10/2019): Added automatically from request for surgery [id number] Assessment & Plan (09/03/2024 10:57 AM NEONATAL SOCIAL WORKER): Stable lower extremity occlusive disease. Continue [...] duplex. Assessment & Plan (10/03/2023 1:11 PM NEONATAL SOCIAL WORKER): Chronic. Denies recent claudication symptoms. Continue ASA, statin and Pletal Assessment & Plan (07/03/2023 5:22 PM CDT): Chronic. 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 Denies current sores on his feet. Follows with Podiatry in [place]. On cilostazol Iron deficiency anemia due to [...] 02/17/2019 Assessment & Plan (11/23/2024 1:35 PM NEONATAL SOCIAL WORKER): BP normal in office, continuing current [...] dehydrate Assessment & Plan (10/03/2023 1:10 PM NEONATAL SOCIAL WORKER): Chronic. Blood pressure controlled. Continue current [...] (01/26/2019): Added automatically from request for surgery [id number] Assessment & Plan (02/06/2024 4:52 PM CDT): Chronic. Disease has been stable. Minimal symptoms. He does have to be cautious with eating too many fruits and vegetables as he notes this does cause some GI distress. He remains controlled with Skyrezi and hydroxychloroquine. He will continue Assessment & Plan (10/03/2023 1:10 PM NEONATAL SOCIAL WORKER): Chronic. Symptomatically improved per patient. Continue medication and care per GI Assessment & Plan (07/03/2023 5:20 PM CDT): Chronic. Follows with Gastroenterology. On scar oz and sulfasalazine. Continue medication and care per them CAD (coronary artery disease) 12/04/2018 Assessment & Plan (09/03/2024 10:57 AM NEONATAL SOCIAL WORKER): Stable continue ASA and Lasix Assessment & Plan (02/06/2024 4:51 PM CDT): Chronic. Denies chest pain. Continue risk factor modification with statin, aspirin, blood pressure control. Target LDL less than 70 Assessment & Plan (10/03/2023 1:10 PM NEONATAL SOCIAL WORKER): Chronic. Denies chest pain. Follows with [...] 12/30/2017 Assessment & Plan (08/25/2024 4:06 PM NEONATAL SOCIAL WORKER): Updated labs ordered, Hemoglobin was 9 [...] infusions Assessment & Plan (10/03/2023 1:10 PM NEONATAL SOCIAL WORKER): Chronic. Follows with GI and Hematology. Has received iron infusions. Often does B12 injections Assessment & Plan (07/03/2023 5:15 PM CDT): Chronic. Follows with GI and Hematology. Received iron infusions Hypercholesterolemia 02/05/2011 Assessment & Plan (09/03/2024 10:57 AM NEONATAL SOCIAL WORKER): Stable continue statin therapy. Assessment & Plan (03/01/2024 7:50 AM CDT): Stable continue statin therapy. Assessment & Plan (02/06/2024 4:53 PM CDT): Chronic. Tolerates atorvastatin. Continue. Check cholesterol level and adjust for an LDL goal of at least less than 70 with optimal less than 55 Assessment & Plan (10/03/2023 1:10 PM NEONATAL SOCIAL WORKER): Chronic. Tolerates current prescription medication. Continue [...] (05/29/2021): Added automatically from request for surgery [id number] Crohn's disease with rectal bleeding 12/10/2018 07/03/2023 Overview (12/10/2018): Added automatically from request for surgery [id number] Peripheral vascular disease 02/13/2017 07/03/2023 Gastrointestinal hemorrhage 07/03/2023 Acute renal failure 07/03/20 23 Crohn's disease of colon with rectal bleeding 07/03/2023 Assessment & Plan (12/04/2021 1:34 PM CDT): Has upcoming endoscopy. Encounters Date Type Department Care Team Description 04/12/2025 Results Follow-Up [facility] at [address] [phone] Gladys Valdovinos NP Aerobic and anaerobic culture and gram stain Wound Buttocks, right, Colleen (yeast) culture Lesion Buttocks, right 04/10/2025 12:55 PM CDT - 04/10/2025 11:59 PM CDT Hospital Encounter [address] [address] Incidental lung nodule Discharge Disposition: Discharge to home or self care 04/07/2025 Results Follow-Up [facility] at [address] [phone] Ilana Powers NP Urinalysis reflex to microscopic and culture Urine, in and out catheter, Urinalysis, microscopic only 04/06/2025 11:24 AM CDT - 04/06/2025 11:59 PM CDT Hospital Encounter [address] [address] Local skin infection Discharge Disposition: Discharge to home or self care 04/06/2025 11:00 AM CDT Office Visit [facility] at [address] [phone] Sandrita Daugherty NP Local skin infection (Primary Dx); Contact dermatitis due to plants, except food, unspecified contact dermatitis type 04/06/2025 10:45 AM CDT Lab [facility] at [address] [phone] 04/06/2025 10:42 AM CDT - 04/06/2025 11:59 PM CDT Hospital Encounter [address] [address] Recurrent UTI; Altered mental status, unspecified altered mental status type Discharge Disposition: Discharge to home or self care 04/04/2025 Telephone [facility] at [address] [phone] Preethi Godoy NP Symptom Based Call 03/31/2025 Telephone [facility] at [address] [phone] Preethi Godoy NP Medical Question/Miscellane ous 03/18/2025 12:00 PM CDT Lab [facility] at [address] [phone] 03/18/2025 11:49 AM CDT - 03/18/2025 11:59 PM CDT Hospital Encounter [address] [address] Recurrent UTI Discharge Disposition: Discharge to home or self care 03/18/2025 Results Follow-Up [facility] at [address] [phone] Ilana Powers NP Urinalysis reflex to microscopic and culture Urine, in and out catheter, Urinalysis, microscopic only, Urine culture Urine, in and out catheter 03/18/2025 Orders Only [facility] at [address] [phone] Ilana Powers NP Acute cystitis without hematuria (Primary Dx) 03/18/2025 Nurse Triage [facility] at [address] [phone] Love Piña RN Recurrent UTI (Primary Dx) 03/03/2025 9:58 AM CDT - 03/03/2025 11:59 PM CDT Hospital Encounter [facility] [address] [place] [address] Amyloid myopathy (HCC) Discharge Disposition: Discharge to home or self care 02/25/2025 8:45 AM CDT Lab [facility] Outpatient Lab at [address] [phone] Acute hemorrhagic cystitis (Primary Dx) 02/25/2025 8:36 AM CDT - 02/25/2025 11:59 PM CDT Hospital Encounter [address] [address] Acute cystitis with hematuria Discharge Disposition: Discharge to home or self care 02/21/2025 11:45 AM CDT Office Visit [facility] Primary Care at [address] [phone] Ankit Pascal MD Acute cystitis with hematuria (Primary Dx) 02/21/2025 Nurse Triage [facility] at [address] [phone] Preethi Godoy, DONALD 02/17/2025 Results Follow-Up [facility] at [address] [phone] Ankit Pascal MD Urine culture Urine, clean voided 02/15/2025 4:29 PM CDT - 02/15/2025 11:59 PM CDT Hospital Encounter [address] [address] Confusion Discharge Disposition: Discharge to home or self care 02/15/2025 4:15 PM CDT Office Visit [facility] at [address] [phone] Ankit Pascal MD Acute cystitis with hematuria (Primary Dx); Confusion 02/15/2025 Nurse Triage [facility] at [address] [phone] Preethi Godoy, DONALD 02/09/2025 Telephone [facility] at [address] [phone] Preethi Godoy NP Medication Request 01/28/2025 Telephone [facility] [address] [place] [phone] Madai Enrique NP 01/28/2025 Orders Only [facility] [address] [facility] [address] [place] [phone] Madai Enrique NP Amyloid myopathy (HCC) (Primary Dx); Mitral valve insufficiency, unspecified etiology; Incidental lung nodule 01/23/2025 Results Follow-Up [facility] at [address] [phone] Ankit Pascal MD Urinalysis reflex to microscopic and culture Urine, Urinalysis, microscopic only 01/21/2025 11:15 AM CDT Ancillary Procedure [facility] at [address] [place] [address] Coronary artery disease involving coronary bypass graft of cabazon heart, unspecified whether angina present; Fatigue, unspecified type; Hypotension, unspecified hypotension type 01/19/2025 12:15 PM CDT Lab [facility] at [address] [phone] 01/19/2025 12:03 PM CDT - 01/19/2025 11:59 PM CDT Hospital Encounter [address] [address] Recurrent UTI Discharge Disposition: Discharge to home or self care 01/19/2025 Results Follow-Up [facility] at [address] [phone] Ankit Pascal MD CBC with auto differential, Differential, auto 01/18/2025 11:45 AM CDT Ancillary Procedure [facility] at [address] [phone] 01/18/2025 11:30 AM CDT Lab [facility] at [address] [phone] KAYLA (generalized anxiety disorder) (Primary Dx); Benign prostatic hyperplasia with urinary retention 01/18/2025 11:20 AM CDT - 01/18/2025 11:59 PM CDT Hospital Encounter [address] [address] CAP (community acquired pneumonia) Discharge Disposition: Discharge to home or self care 01/18/2025 10:30 AM CDT Office Visit [facility] at [address] [phone] Ankit Pascal MD Hospital discharge follow-up (Primary Dx); CAP (community acquired pneumonia); Recurrent UTI 01/18/2025 Results Follow-Up [facility] at [address] [phone] Ankit Pascal MD XR Chest Pa Lateral 2 Views 01/11/2025 Telephone [facility] at [address] [phone] Preethi Godoy, DONALD APRIL Questions from Last 3 Months Immunizations Immunization Administration [...] Neg Hx Relation Name Status Comments Father VT & CVA () age 76 Mother Sister [...] on file 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 2:24 AM NEONATAL SOCIAL WORKER Gender Identity Not on file Sexual Orientation Not on file 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 [employer] Not on file Not on file Not on file Obstetrics History Last Filed Vital Signs Vital Sign Reading Time Taken Comments Blood Pressure 112/70 04/06/2025 11:00 AM CDT Pulse 86 04/06/2025 11:00 AM CDT Temperature 36.4 C (97.6 F) 04/06/2025 11:00 AM CDT Respiratory Rate 18 04/06/2025 11:00 AM CDT Oxygen Saturation 99% 04/06/2025 11:00 AM CDT Inhaled Oxygen Concentration - - Weight 61.5 kg (135 lb 8 oz) 04/06/2025 11:00 AM CDT Height 177.8 cm (5' 10) 04/06/2025 11:00 AM CDT Body Mass Index 19.44 04/06/2025 11:00 AM CDT Plan of Treatment Health Maintenance Due Date Last Done Comments Pneumococcal vaccine 65+ (2 of 2 - PCV) 08/25/2015 08/25/2014 Zoster Vaccine (2 of 3) 11/28/2015 10/03/2015, 09/23 Covid-19 Vaccine (4 - 2023-2 5 season) 2024 08/06/2021, 12/01/2020, 11/09/2020 Well Visit 65+ 02/05/2025 02/06/2024 Influenza Vaccine (#1) 2025 , 07/05/2022, 08/06/2021, Additional history exists Fall Risk [...] Screening Discontinued Medical Devices Implanted Type Area Rigging Up Man Device Identifier Shelf Expiration Date Model / Serial / Lot [employer] [id number] Synergy 3.5mm 24mm 144cm Radiopaque 1 Access Port Inflation Lumen - [id number] - [id number] Implanted:Qty: 1 on 03/26/2019 by Alban Santana MD at [facility] [employer] 12/09/2020 [id number] / [id number] / [id number] Procedures Procedure Name Priority Date/Time Associated Diagnosis Comments POCT CREATININE FOR CONTRAST EVALUATION Routine 04/10/2025 1:29 PM CDT COLLEEN (YEAST) CULTURE Routine 04/06/2025 11:24 AM CDT Local skin infection AEROBIC AND ANAEROBIC CULTURE AND GRAM STAIN Routine 04/06/2025 11:24 AM CDT Local skin infection URINALYSIS, MICROSCOPIC ONLY Routine 04/06/2025 10:42 AM CDT Recurrent UTI Altered mental status, unspecified altered mental status type URINALYSIS AND REFLEX TO MICROSCOPIC AND CULTURE Routine 04/06/2025 10:42 AM CDT Recurrent UTI Altered mental status, unspecified altered mental status type URINALYSIS, MICROSCOPIC ONLY Routine 03/18/2025 11:49 AM CDT Recurrent UTI URINE CULTURE Routine 03/18/2025 11:49 AM CDT URINALYSIS AND REFLEX TO MICROSCOPIC AND CULTURE Routine 03/18/2025 11:49 AM CDT Recurrent UTI MRI CARDIAC M&FUNC W WO CONTRAST Schedule Routine, Read Routine (OP Routine) 03/03/2025 10:50 AM CDT Amyloid myopathy (HCC) URINALYSIS, MICROSCOPIC ONLY Routine 02/25/2025 8:36 AM CDT Acute cystitis with hematuria URINE CULTURE Routine 02/25/2025 8:36 AM CDT URINALYSIS AND REFLEX TO MICROSCOPIC AND CULTURE Routine 02/25/2025 8:36 AM CDT Acute cystitis with hematuria POCT URINALYSIS, AUTO W/O SCOPE Routine 02/15/2025 4:30 PM CDT Confusion URINE CULTURE Routine 02/15/2025 4:29 PM CDT Confusion LIPID PANEL Routine 01/26/2025 1:34 PM CDT TRANSTHORACIC ECHO (TTE) COMPLETE W DOPPLER/CF WO CONTRAST Routine 01/21/2025 11:37 AM CDT Coronary artery disease involving coronary bypass graft of cabazon heart, unspecified whether angina present Fatigue, unspecified [...] 11:20 AM CDT CAP (community acquired pneumonia) COLONOSCOPY 10/21/2024 10:56 AM NEONATAL SOCIAL WORKER CTA ABDOMEN PELVIS W WO CONTRAST Schedule Routine, Read Routine (OP Routine) 02/18/2024 12:14 PM CDT PVD (peripheral vascular disease) HEPATITIS C ANTIBODY Routine 02/06/2024 11:23 AM CDT Encounter for hepatitis C screening test for low risk patient from Last 3 Months or Most Recently Relevant to Health Maintenance Results * (ABNORMAL) POCT creatinine for contrast evaluation (04/10/2025 1:29 PM CDT) Creatinine POC 3.00(H) 0.80 - 1.30 mg/dL Comment:Testing performed by : [facility], [address] [place] [address]., [id number] Blood 04/10/2025 1:29 PM CDT 04/10/2025 1:29 PM CDT Preethi Godoy NP POINT OF CARE TEST ORDERABLES Fi nal Result [facility] [address] [facility] Department [place] [address] * (ABNORMAL) Colleen (yeast) culture Lesion Buttocks, right (04/06/2025 11:24 AM CDT) Report Final Report: Moderate Colleen albicans (.) Comment:Testing performed by : [facility], [address] [facility], [place]., [address] Organism COLLEEN ALBICANS TRAVIS Lesion (Buttocks, right) 04/06/2025 11:24 AM CDT 04/06/2025 10:12 PM CDT Narrative TRAVIS - 04/12/2025 6:56 AM CDT Interpretation data: This culture is NOT intended for the detection of filamentous fungi, endemic mycosis, or Cryptococcus. If detected, yeast will be reported and identified. Routine susceptibility is not performed, but if required, please contact the Microbiology Laboratory at . Sandrita Daugherty NP LAB MICROBIOLOGY - GENERAL ORDE RABLES Final Result [facility] [address] Department [place] [address] * (ABNORMAL) Urinalysis reflex to microscopic and culture Urine, in and out catheter (04/06/2025 10:42 AM CDT) Color, ur Yellow Yellow Clarity, ur Turbid(A) Clear [facility] Specific gravity, ur 1.016 1.003 - 1.030 [facility] pH, urine 6.5 [facility] Comment: Interpretive Data U rine pH is affected by diet, medications, systemic acid-base disturbances, and renal tubular function. pH may affect urinary stone formation. For example, urine pH below 6.0 may help reduce the tendency for calcium phosphate stones and pH greater than 6.0 may reduce the tendency for uric acid stone formation. Source: [facility] [employer] Current Interpretive Data was last revised on 2017 Protein, ur ql Negative Negative [facility] Glucose, ur ql Negative Negative [facility] Ketones, ur Negative Negative [facility] Bilirubin, ur Negative Negative [facility] Blood, ur Negative Negative [facility] Urobilinogen, ur <2.0 <2.0 mg/dL [facility] Nitrite, ur Positive(A) Negative [facility] Leukocyte esterase, ur 4+(A) Negative [facility] UA reflex comment Reflex to microscopic UA will be performed. [facility] Urine, in and out catheter 04/06/2025 10:42 AM CDT 04/06/2025 8:18 PM CDT Preethi Godoy NP LAB MICROBIOLOGY - GENERAL ORDER MANJINDER Final Result [facility] [address] Department [place] [address] * (ABNORMAL) Urinalysis, microscopic only (04/06/2025 10:42 AM CDT) WBC, ur 6-10(A) 0 - 5 /HPF RBC, ur 0-2 0 - 2 /HPF [facility] Epithelial cells, squamous, ur 1-5 0 - 5 /HPF [facility] Bacteria, ur 1+(A) [facility] Culture Reflex Comment Reflex conditions for urine culture (WBC >10) not met. CERNER Urine, in and out catheter 04/06/2025 10:42 AM CDT 04/06/2025 8:18 PM CDT us Preethi Godoy SURVEILLANCE SENSOR OPERATOR LAB URINE ORDERABLES Final Resul t [facility] [address] Department [place] [address] * (ABNORMAL) Urinalysis reflex to microscopic and culture Urine, in and out catheter (03/18/2025 11:49 AM CDT) Color, ur Yellow Yellow Clarity, ur Turbid(A) Clear CERNER Specific gravity, ur 1.014 1.003 - 1.030 CERNER CH pH, urine 6.0 CERNER Comment: Interpretive Data U rine pH is affected by diet, medications, systemic acid-base disturbances, and renal tubular function. pH may affect urinary stone formation. For example, urine pH below 6.0 may help reduce the tendency for calcium phosphate stones and pH greater than 6.0 may reduce the tendency for uric acid stone formation. Source: [facility] Laboratories Current Interpretive Data was last revised on 2017 Protein, ur ql Trace Negative CERNER CH Glucose, ur ql Negative Negative CERNER CH Ketones, ur Negative Negative CERNER CH Bilirubin, ur Negative Negative CERNER CH Blood, ur Trace(A) Negative CERNER CH Urobilinogen, ur <2.0 <2.0 mg/dL CERNER CH Nitrite, ur Negative Negative CERNER CH Leukocyte esterase, ur 4+(A) Negative CERNER CH UA reflex comment Reflex to microscopic UA will be performed. [facility] Urine, in and out catheter 03/18/2025 11:49 AM CDT 03/18/2025 3:22 PM CDT us Preethi Godoy NP LAB MICROBIOLOGY - GENERAL ORDER MANJINDER Final Result Performing Organization Address City/[facility]/ZIP Co de Phone Number TRA[facility] BROWNLEE [address] [facility] [employer] [place], [place] [id number] * (ABNORMAL) Urinalysis, microscopic only (03/18/2025 11:49 AM CDT) WBC, ur >50(A) 0 - 5 /HPF RBC, ur 0-2 0 - 2 /HPF CERNER Epithelial cells, squamous, ur 1-5 0 - 5 /HPF CERNER CH Bacteria, ur 2+(A) CERNER CH Mucous, ur Present(A) CERNER CH Culture Reflex Comment Reflex to urine culture will be performed. CERNER Urine, in and out catheter 03/18/2025 11:49 AM CDT 03/18/2025 3:22 PM CDT us Preethi Godoy SURVEILLANCE SENSOR OPERATOR LAB URINE ORDERABLES Final Resul t Performing Organization Address [facility] Co de Phone Number TRA[facility] [place]OWN[place] [address] Department [place] [address] * (ABNORMAL) Urine culture Urine, in and out catheter (03/18/2025 11:49 AM CDT) Report Final Report: Greater than or equal to 100,000 colonies/mL of Klebsiella pneumoniae Greater than or equal to 100,000 colonies/mL of Klebsiella pneumoniae #2 (.) Comment:Testing performed by : [facility], [address] [place]., [address] Organism KLEBSIELLA PNEUMONIAE CERNER CH Organism KLEBSIELLA PNEUMONIAE CERNER CH Urine, in and out catheter 03/18/2025 11:49 AM CDT 03/18/2025 6:29 PM CDT Narrative CERNER CH - 03/20/2025 10:30 AM CDT Urine culture reflexed based upon urinalysis results. Testing performed by [facility] ([phone]) Organism Antibiotic Method Susceptibility Klebsiella pneumoniae Ampicillin [...] INTERPRETATION Susceptible Klebsiella pneumoniae Cefdinir INTERPRETATION Susceptible Klebsiella pneumoniae Ampicillin INTERPRETATION Resistant Klebsiella pneumoniae [...] INTERPRETATION Susceptible Klebsiella pneumoniae Cefdinir INTERPRETATION Susceptible Preethi Godoy NP LAB MICROBIOLOGY - GENERAL ORDER MANJINDER Final Result Performing Organization Address City/State/[facility] [place] w[place] Phone Number TRAVIS [address] Department [place] [address] * MRI Cardiac M&F W WO Contrast (03/03/2025 10:50 AM CDT) Anatomical Region Laterality Modality Body N/A Magnetic Resonan ce 03/03/2025 1:33 PM CDT Impressions 03/04/2025 10:52 AM CDT 1. Severe enlargement of the right atrium. 2. No left myocardial scarring or late gadolinium enhancement. Left ventricular ejection fraction of 51%. 3. A 7 mm nodule in the right lower lobe. New from 06/20/2024. Further evaluation with CT is recommended. Dictated by: Mariajose Cason M.D. The radiology attending physician has personally reviewed this study, and had reviewed and/or edited this written report and agrees with it. Electronically signed by: Ludwig Talley M.D. Narrative 03/04/2025 10:52 AM CDT EXAM: Cardiac MRI Morphology and Function with Contrast, w/ Cardiac MRI Flow Quantification DATE OF EXAMINATION: 03/03/2025 11:00 AM COMPARISON: No prior TECHNIQUE: Multiplanar MR imaging of the heart utilizing HASTE and TRUEFISP imaging sequences was performed with the administration of 12 mL intravenous gadolinium contrast agent according to a custom monitored protocol. 3-D postprocessing was subsequently performed on a dedicated 3-D workstation. 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 There is no focal motion abnormality.. LV functional parameters: LVEF, 51%. LV end diastolic volume, 138 mL. LV end systolic volume, 68 mL. Stroke volume, 7 mL. Cardiac output, 5.3 L/min. Cardiac index, 3 L/min/meter2 ; BSA 1.8 meter2. Right Ventricular Size and Function: Mild enlargement of the right ventricle with severe enlargement of the right atrium.. RV functional parameters: RVEF, 45%. RV end diastolic volume, 145 mL. RV end systolic volume, 80 mL. Stroke volume, 66 mL. Cardiac output, 5 L/min. Cardiac index, 2.8 L/min/meter2. Myocardial T1 measurements: Normal. Myocardial T2 measurements: Normal. Late gadolinium enhancement: None. Valves: Mitral valve there is mild mitral regurgitation. No stenosis. Tricuspid valve without stenosis or regurgitation. Pulmonic valve without stenosis or regurgitation. Aortic valve without stenosis or regurgitation. Flow Quantification: Aorta above valve (HR 76 bpm) Peak velocity 1.36 m/sec Fwd 56 ml Rev 1 ml Net 55 ml Flow/CO 4.4 L/min MPA (HR 76 bpm) Peak velocity 1.2 m/sec Fwd 44 ml Rev 1 ml Net 43 ml Flow/CO 3.6 L/min There is a 7 mm nodule in the right lower lobe. New from 06/20/2024. There is mild bilateral pleural thickening with right atelectasis bilaterally. Procedure Note Ludwig Talley MD - 03/04/2025 EXAM: Cardiac MRI Morphology and Function with Contrast, w/ Cardiac MRI Flow Quantification DATE OF EXAMINATION: 03/03/2025 11:00 AM COMPARISON: No prior TECHNIQUE: Multiplanar MR imaging of the heart utilizing HASTE and TRUEFISP imaging sequences was performed with the administration of 12 mL intravenous gadolinium contrast agent according to a custom monitored protocol. 3-D postprocessing was subsequently performed on a dedicated 3-D workstation. 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 There is no focal motion abnormality.. LV functional parameters: LVEF, 51%. LV end diastolic volume, 138 mL. LV end systolic volume, 68 mL. Stroke volume, 7 mL. Cardiac output, 5.3 L/min. Cardiac index, 3 L/min/meter2 ; BSA 1.8 meter2. Right Ventricular Size and Function: Mild enlargement of the right ventricle with severe enlargement of the right atrium.. RV functional parameters: RVEF, 45%. RV end diastolic volume, 145 mL. RV end systolic volume, 80 mL. Stroke volume, 66 mL. Cardiac output, 5 L/min. Cardiac index, 2.8 L/min/meter2. Myocardial T1 measurements: Normal. Myocardial T2 measurements: Normal. Late gadolinium enhancement: None. Valves: Mitral valve there is mild mitral regurgitation. No stenosis. Tricuspid valve without stenosis or regurgitation. Pulmonic valve without stenosis or regurgitation. Aortic valve without stenosis or regurgitation. Flow Quantification: Aorta above valve (HR 76 bpm) Peak velocity 1.36 m/sec Fwd 56 ml Rev 1 ml Net 55 ml Flow/CO 4.4 L/min MPA (HR 76 bpm) Peak velocity 1.2 m/sec Fwd 44 ml Rev 1 ml Net 43 ml Flow/CO 3.6 L/min There is a 7 mm nodule in the right lower lobe. New from 06/20/2024. There is mild bilateral pleural thickening with right atelectasis bilaterally. IMPRESSION: 1. Severe enlargement of the right atrium. 2. No left myocardial scarring or late gadolinium enhancement. Left ventricular ejection fraction of 51%. 3. A 7 mm nodule in the right lower lobe. New from 06/20/2024. Further evaluation with CT is recommended. Dictated by: Mariajose Cason M.D. The radiology attending physician has personally reviewed this study, and had reviewed and/or edited this written report and agrees with it. Electronically signed by: Ludwig Talley M.D. Madai Enrique SURVEILLANCE SENSOR OPERATOR IMG MRI PROCEDURES Final Res ult * (ABNORMAL) Urinalysis reflex to microscopic and culture Urine (02/25/2025 8:36 AM CDT) Color, ur Yellow Yellow Clarity, ur Turbid(A) Clear CERNER CH Specific gravity, ur 1.017 1.003 - 1.030 CERNER CH pH, urine [...] tendency for uric acid stone formation. Source: [facility] [employer] Current Interpretive Data was last revised on 2017 Protein, ur ql 1+(A) Negative CERNER CH Glucose, ur ql Negative Negative CERNER CH Ketones, ur Negative Negative CERNER CH Bilirubin, ur Negative Negative CERNER CH Blood, ur 1+(A) Negative CERNER CH Urobilinogen, ur <2.0 <2.0 mg/dL CERNER CH Nitrite, ur Positive(A) Negative CERNER CH Leukocyte esterase, ur 4+(A) Negative CERNER CH UA reflex comment Reflex to microscopic UA will be performed. CERNER Urine 02/25/2025 8:36 AM CDT 02/25/2025 3:09 PM CDT us Ankit Pascal MD LAB MICROBIOLOGY - GENERAL ORDERABLES Final Result Performing Organization Address City/State/[facility] Co de Phone Number [facility] [address] Department [place] [address] * (ABNORMAL) Urinalysis, microscopic only (02/25/2025 8:36 AM CDT) WBC, ur >50(A) 0 - 5 /HPF RBC, ur 0-2 0 - 2 /HPF CERNER CH Epithelial cells, squamous, ur 1-5 0 - 5 /HPF CERNER CH Bacteria, ur Trace(A) CERNER CH Mucous, ur Present(A) CERNER CH Hyaline casts, ur 1-5 0 - 10 /LPF CERNER Culture Reflex Comment Reflex to urine culture will be performed. CERNER Urine 02/25/2025 8:36 AM CDT 02/25/2025 3:09 PM CDT Ankit Pascal MD LAB URINE ORDERABLES Final Result Performing Organization Address [facility] Co de Phone Number TRAVIS BROWNLEE [address] Department [place] [address] * (ABNORMAL) Urine culture Urine (02/25/2025 8:36 AM CDT) Report Final Report: Greater than or equal to 100,000 colonies/mL of Klebsiella pneumoniae Plus growth of clinically insignificant bacterial alton. (.) Comment:Testing performed by : [facility], [address] [place]., [address] Organism KLEBSIELLA PNEUMONIAE [facility] Organism PLUS GROWTH OF CLINICALLY INSIGNIFICANT ALTON. [facility] Urine 02/25/2025 8:36 AM CDT 02/25/2025 6:25 PM CDT Narrative [facility] - 02/27/2025 11:00 AM CDT Urine culture reflexed based upon urinalysis results. Testing performed by [facility] ([phone]) Organism Antibiotic Method Susceptibility Klebsiella pneumoniae Ampicillin [...] INTERPRETATION Susceptible Klebsiella pneumoniae Cefdinir INTERPRETATION Susceptible Ankit Pascal MD LAB MICROBIOLOGY - GENERAL ORDERABLES Final Result [facility] [place] [address] Department [place] [address] * (ABNORMAL) POCT UA, AUTO W/O SCOPE (02/15/2025 4:30 PM CDT) Color, Urine, POC Yellow Clarity, ur, POC Cloudy(A) Clear Glucose, ur, POC Negative Negative Bilirubin, ur, POC Negative Negative Ketones, ur, POC Negative Negative Specific [place], POC 1.020 1.003 - 1.030 Blood, ur, POC Small(A) Negative pH, ur, POC 6.0 5.0 - 8.0 Protein, ur, POC 30.(A) Negative Urobilinogen, Urine, POC 0.2 <2 MG/DL Leukocytes, ur, POC Small(A) Negative Nitrite, ur, POC Positive(A) Negative Appearance, fld Cloudy(A) Clear Urine, clean voided 02/15/2025 4:30 PM CDT Ankit Pascal MD POINT OF CARE TEST ORDERABL ES Final Result * (ABNORMAL) Urine culture Urine, clean voided (02/15/2025 4:29 PM CDT) Report Final Report: Greater than or equal to 100,000 colonies/mL of Klebsiella pneumoniae Plus growth of clinically insignificant bacterial alton. (.) Comment:Testing performed by : [facility], [address] [place]., [address] Organism KLEBSIELLA PNEUMONIAE [facility] Organism PLUS GROWTH OF CLINICALLY INSIGNIFICANT ALTON. [facility] Urine, clean voided 02/15/2025 4:29 PM CDT 02/15/2025 10:46 PM CDT Narrative [facility] - 02/18/2025 6:27 AM CDT Testing performed by [facility] ([phone]) Organism Antibiotic Method Susceptibility Klebsiella pneumoniae Ampicillin [...] INTERPRETATION Susceptible Klebsiella pneumoniae Cefdinir INTERPRETATION Susceptible Ankit Pascal MD LAB MICROBIOLOGY - GENERAL ORDERABLES Final Result [facility] [address] Department [place] [address] * Lipid panel (01/26/2025 1:34 PM CDT) Blood Historical Provider LAB BLOOD ORDERABLES Laly l Result Performing Organization Address City/[facility]/ZIP Co de Phone Number EXTERNAL LAB * TRANSTHORACIC ECHO (TTE) COMPLETE W DOPPLER/CF WO CONTRAST (01/21/2025 11:37 AM CDT) Estimated EF 50-55 % CONS SCIMAGE EF Mod BP 56 % CONS SCIMAGE Anatomical Region Laterality Modality Ultrasound 01/21/2025 11:2 0 AM CDT Narrative 01/21/2025 12:31 PM CDT [facility] Cardiology [address], [address], [place] [address] P:[phone] P:[phone] Echocardiographic Report Patient Name: AZIZA LOYA O [...] [ 0.60 - 1.00 ] TR Peak Igdeon 2.57 m/s [ 1.00 - 2.80 ] [...] FINDINGS: Interpretation Site: Exam was interpreted at [facility]. Left Ventricle: Mild concentric left ventricular [...] Procedure Note Harley Bowser MD - 01/21/2025 [facility] Cardiology [address], [address], [place] [address] P:[phone] P:[phone] Echocardiographic Report Patient Name: AZIZA LOYA [place] : 1945 Study Date: 01/21/2025 11:20:02 AM Gender: M Tech: Location: [facility] Ref Provider: MADAI ENRIQUE Height(Cm): 178 BSA: 1.73 Weight(Kg): 60.3 Heart Rate: 81 BP: 112 / 60 Quality: Good Order Provider: MDAAI ENRIQUE PROCEDURES: Echocardiographic Report: Transthoracic echocardiogram with [...] FINDINGS: Interpretation Site: Exam was interpreted at [facility]. Left Ventricle: Mild concentric left ventricular [...] Harley Bowser MD 01/21/2025 12:30:49 PM CDT us Madai Enrique NP CV ECHO PROCEDURES Final [...] tendency for uric acid stone formation. Source: [facility] [employer] Current Interpretive Data was last revised on [...] PM CDT us Ankit Pascal MD LAB MICROBIOLOGY - GENERAL ORDERABLES Final Result [facility] [address] Department [place] [address] * (ABNORMAL) Urinalysis, microscopic only (01/19/2025 12:03 PM CDT) WBC, ur 6-10(A) 0 - 5 /HPF RBC, ur 0-2 0 - 2 /HPF [facility] Epithelial cells, squamous, ur 1-5 0 - 5 /HPF [facility] Bacteria, ur Trace(A) [facility] Culture Reflex Comment Reflex conditions for urine culture (WBC >10) not met. [facility] Urine 01/19/2025 12:0 3 PM CDT 01/19/2025 7:25 PM CDT us Ankit Pascal MD LAB URINE ORDERABLES Final Result [facility] [address] Department [place] [address] * XR Chest Pa Lateral 2 Views [...] Brown Ennis M.D. RW T: Report ID: [id number] Reading Location: [id number] Procedure Note Brown Ennis MD - 01/18/2025 [...] Brown Ennis M.D. RW T: Report ID: [id number] Reading Location: [id number] Ankit Pascal MD IMG XR PROCEDURES Final [...] on 2017. Imm gran pct 0.4 % CERNER Comment: Interpretive Data Percent cell count reference ranges are not reported, since discordance with absolute values may lead to misinterpretation of CBC data. Current Interpretive Data was last revised on 2017. Lymphocyte pct 10.8 % [facility] Comment: Interpretive Data Percent cell count reference ranges are not reported, since discordance with absolute values may lead to misinterpretation of CBC data. Current Interpretive Data was last revised on 2017. Monocyte pct 9.2 % [facility] Comment: Interpretive Data Percent cell count reference ranges are not reported, since discordance with absolute values may lead to misinterpretation of CBC data. Current Interpretive Data was last revised on 2017. Eosinophil pct 2.8 % CERNER Comment: Interpretive Data Percent cell [...] Pascal MD LAB BLOOD ORDERABLES Final Result [facility] [address] [place] [address] * (ABNORMAL) CBC with auto differential (01/18/2025 11:20 AM CDT) WBC 9.34 3.80 - 9.90 K/cumm Hgb 11.4(L) 13.0 - 17.5 g/dL [facility] Hct 37.5(L) 38.9 - 50.3 % [facility] Plt 284 150 - 400 K/cumm [facility] MPV 9.9 9.1 - 12.3 fL [facility] RBC 3.75(L) 4.30 - 5.80 M/cumm [facility] MCV 100.0(H) 81.3 - 96.4 fL [facility] MCH 30.4 27.1 - 33.3 pg [facility] MCHC 30.4(L) 32.3 - 35.7 g/dL [facility] RDW CV 13.7 11.1 - 14.9 % [facility] RDW SD 50.4(H) 35.7 - 48.1 fL [facility] NRBC abs 0.00 0.00 - 0.01 K/cumm [facility] Blood 01/18/2025 11:2 0 AM CDT 01/18/2025 8:27 PM CDT us Ankit Pascal MD LAB BLOOD ORDERABLES Final Result [facility] [address] Department [place] [address] * Colonoscopy (10/21/2024 10:56 AM NEONATAL SOCIAL WORKER) Anatomical Region Laterality Modality Other Narrative Procedure Note Kath Shepherd MD - 10/21/2024 10:56 AM CST [facility] Patient Name: Aziza Loya Procedure Date: 10/21/2024 10:56 AM Date of : 1945 Admit Type: Outpatient Age: 79 Gender: Male Attending MD: Kath Shepherd M.D. Room: [facility] 3 Note Status: Addendum Procedure: [...] scope was passed under direct vision.The PC [id number] endoscope was introducedthrough the anus and [...] signed by Steven RAJPUT T: Report ID: [id number] Reading Location: [id number] Procedure Note Steven Ruano MD - 02/24/2024 [...] Steven Ruano M.D. RB T: Report ID: [id number] Reading Location: [place] [address] PROCEDURES Final Res [...] - GEN ERAL ORDERABLES Final Result [facility] [address] Department [place] [address] from Last 3 Months or Most Recently Relevant to Health Maintenance Insurance [facility] MEDICARE [facility] MEDICARE [facility] MEDICARE [facility] MEDICARE [facility] Advance Directives For more information, please contact: [phone] * Full Code (Latest Code Status on [...] 10:45 AM 05/17/2022 5:55 PM Care Teams Supervisor Production Managing Relationship Specialty Start Date End Date Preethi Godoy NP [address] [place] [address] PCP - General Family Medicine 08/25/24 Kath Shepherd MD [address] [place] [address] Consulting Physician Gastroenterology 07/22/19 Peter Ya MD [address] [place] [address] Senior Network Engineer Cardiology 07/22/19 Aziza Ledesma MD [address] [place] [address] Consulting Physician Neurology 07/22/19 Joshua Butterfield MD [address] [facility] [address] [place] [address] Consulting Physician Urology 07/03/23 Jeffery Bustillos MD [address] [facility] [address] [place] [address] Consulting Physician Cardiovascular Disease 02/06/24 Shimon Schofield MD [address] [address] Consulting Physician Vascular Surgery 02/06/24
--- OUTSIDE RECORDS SUMMARY | 2025-04-12 14:16 | XMS_ITS | Encounter Summary ---
Author Organization [facility] Address [address] [place] [address] Care Team Providers Care Corrections Corporal Name Role Phone John Kimbrough MD Primary Care Provider Kath Shepherd MD Unavailable [phone] Peter Ya MD Unavailable [phone] Vitaly Ledesma MD Unavailable [phone] Anayeli Lee MD Primary Care Provider Joshua Butterfield MD Unavailable [phone] Jeffery Bustillos MD Unavailable [phone] Shimon Schofield MD Unavailable Preethi Godoy NP Primary Care Provider Encounter Details Date Type Department Care Team (Late st Contact Info) Description 03/26/2019 Documentation [facility] [address] [place] [address] Kaykay Jason, TEDDY Social History Tobacco Use Types Packs/Day Years Used Date Smoking Tobacco: Former Smokeless Tobacco: Never Alcohol Use Standard Drinks/Week Comments No 0 (1 standard drink = 0.6 oz pur e alcohol) Sex and Gender Information Value Date Recorded Sex Assigned at Not on file 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 2:24 AM BUTCHER FISH Gender Identity Not on file Sexual Orientation Not on file documented as of this encounter Plan of Treatment Not on file documented as of this encounter Visit Diagnoses Not on filedocumented in this encounter Additional Health Concerns Infection Onset Date Last Indicated Resolved Time COVID: Suspected 08/21/2021 08/21/2021 08/21/2021 11:38 AM BUTCHER FISH COVID: Suspected 11/14/2024 11/14/2024 11/14/2024 10:49 AM BUTCHER FISH COVID: Suspected 11/14/2024 11/14/2024 11/14/2024 3:33 PM BUTCHER FISH RSV, droplet 11/14/2024 11/14/2024 11/21/2024 3:07 AM BUTCHER FISH COVID: Suspected 12/30/2024 12/30/2024 12/30/2024 7:54 PM CDT documented as of this encounter Care Teams Corrections Corporal Relationship Specialty Start Date End Date John Kimbrough MD PCP - General 11/08/16 07/02/23 Anayeli Lee MD [address] [place] [address] PCP - General Family Medicine 07/03/23 08/24/24 Preethi Godoy NP [address] [address] PCP - General Family Medicine 08/25/24 Kath Shepherd MD [address] [place] [address] Consulting Physician Gastroenterology 07/22/19 Peter Ya MD [address] [place] [address] Status Controller Cardiology 07/22/19 Vitaly Ledesma MD [address] [place] [address] Consulting Physician Neurology 07/22/19 Joshua Butterfield MD [address] [facility] [address] [place] [address] Consulting Physician Urology 07/03/23 Jeffery Bustillos MD [address] [facility] [address] [place] [address] Consulting Physician Cardiovascular Disease 02/06/24 Shimon Schofield MD [address] [address] Consulting Physician Vascular Surgery 02/06/24 documented as of this encounter
--- OUTSIDE RECORDS SUMMARY | 2025-04-12 14:16 | XMS_ITS | Encounter Summary ---
Author Organization [facility] Healthcare Address [address] [place] [address] Care Team Providers Care Map Mounter Name Role Phone Kath Shepherd MD Unavailable [phone] Peter Ya MD Unavailable [phone] Vitaly Ledesma MD Unavailable [phone] Anayeli eLe MD Primary Care Provider Joshua Butterfield MD Unavailable [phone] Jeffery Bustillos MD Unavailable [phone] Shimon Schofield MD Unavailable Preethi Godoy NP Primary Care Provider Encounter Details Date Type Department Care Team (Late st Contact Info) Description 07/07/2024 Orders Only [facility] Health Information Management [address] [place] [id number] Scanning, Provider Social History Tobacco Use Types [...] points, staff should administer the PHQ-9) 0 05/12/2024 Personal Safety Answer Date Recorded Have you ever been in or are you currently in a harmful physical or emotional relationship or is someone making you feel afraid or unsafe? 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 [employer] Not on file Not on file Not on file documented as of this encounter Plan of Treatment Not on file documented as of this encounter Procedures Procedure Name Priority Date/Time Associated Diagnosis Comments SCAN - RADIOLOGY/IMAGING 07/07/2024 documented in this encounter Results * SCAN - RADIOLOGY/IMAGING (07/07/2024) Anatomical Region Laterality Modality Other us Provider Scanning Edited Result - Final documented in this encounter Visit Diagnoses Not on filedocumented in this encounter Additional Health Concerns Infection Onset Date Last Indicated Resolved Time COVID: Suspected 11/14/2024 11/14/2024 11/14/2024 10:49 AM GREEK PROFESSOR COVID: Suspected 11/14/2024 11/14/2024 11/14/2024 3:33 PM GREEK PROFESSOR RSV, droplet 11/14/2024 11/14/2024 11/21/2024 3:07 AM GREEK PROFESSOR COVID: Suspected 12/30/2024 12/30/2024 12/30/2024 7:54 PM CDT documented as of this encounter Care Teams Map Mounter Relationship Specialty Start Date End Date Anayeli Lee MD [address] [place] [address] PCP - General Family Medicine 07/03/23 08/24/24 Preethi Godoy NP [facility] [facility] 130 [place] [address] PCP - General Family Medicine 08/25/24 Kath Shepherd MD [address] [place] [address] Consulting Physician Gastroenterology 07/22/19 Peter Ya MD [address] [place] [address] Cutter V Groove Cardiology 07/22/19 Vitaly Ledesma MD [address] [place] [address] Consulting Physician Neurology 07/22/19 Joshua Butterfield MD [address] [facility] 200 [place] [address] Consulting Physician Urology 07/03/23 Jeffery Bustillos MD [address] [facility] 102 [place] [address] Consulting Physician Cardiovascular Disease 02/06/24 Shimon Schofield MD 4600 [facility] 120 [place] [address] Consulting Physician Vascular Surgery 02/06/24 documented as of this encounter
--- OUTSIDE RECORDS SUMMARY | 2025-04-12 14:16 | XMS_ITS | Encounter Summary ---
Author Organization [facility] Healthcare Address [address] [place] [address] Care Team Providers Care Process Development Associate Name Role Phone Kath Shepherd MD Unavailable [phone] Peter Ya MD Unavailable [phone] Vitaly Ledesma MD Unavailable [phone] Joshua Butterfield MD Unavailable [phone] Jeffery Bustillos MD Unavailable [phone] Shimon Schofield MD Unavailable Preethi Godoy NP Primary Care Provider [phone] Reason for Visit * MRI/CAT/PET Scan (Routine) - Closed Specialty Diagnoses / Procedures Referred By Contac t Referred To Contact Diagnoses Incidental lung nodule Procedures CT Chest WO Contrast CT Chest W Contrast Preethi Godoy, DONALD [address] [facility] [address] [place] [address] Phone: tel: fax: External Order Referral ID Status Reason Start Date Expiration Date Visits Re quested Visits Authorized [id number] Closed 03/17/2025 04/16/2026 1 1 Encounter Details Date Type Department Care Team (Latest Contact Info) Description 04/10/2025 12:55 PM CDT - 04/10/2025 11:59 PM CDT Hospital Encounter [facility] [address] [place] [address] Incidental lung nodule Discharge Disposition: Discharge to home or self care Social History Tobacco Use Types Packs/Day Years [...] on file 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 Gender Identity Not on file Sexual Orientation Not on file 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 [employer] 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 Not on file Not on file documented as of this encounter Medications at Time of Discharge albuterol HFA (PROVENTIL HFA,VENTOLIN HFA,PROAIR HFA) 90 mcg/actuation inhaler Inhale 2 puffs every 4 (four) hours as needed for wheezing or shortness of breath 1 each 11/26/2024 allopurinoL (ZYLOPRIM) 100 mg tabletIndications :History of gout TAKE 1 TABLET DAILY 90 tablet 1 11/22/2024 aspirin 81 mg enteric coated tabletIndications :cardiac stent Take 1 tablet (81 mg total) by mouth every morning 10/11/2016 atorvastatin (LIPITOR) 10 mg tablet TAKE 1 TABLET NIGHTLY 90 tablet 3 06/08/2024 cilostazoL (PLETAL) 100 mg tablet Take 1 tablet (100 mg total) by mouth nightly 100 tablet 4 05/28/2024 coenzyme Q10 10 mg capsule Take 2 capsules (20 mg total) by mouth every morning cyanocobalamin (Vitamin B-12) 1,000 mcg/mL injection ADMINISTER 1 ML(1000 MCG) IN THE MUSCLE EVERY 30 DAYS DIRECTED 1 mL 3 09/09/2024 donepeziL (ARICEPT) 5 mg tablet Take 1 tablet (5 mg total) by mouth nightly escitalopram (LEXAPRO) 20 mg tabletIndications :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),Cerebral amyloid angiopathy (HCC),KAYLA (generalized anxiety disorder) Take 1 tablet (20 mg total) by mouth daily 10 tablet 02/15/2025 ferrous sulfate (FeroSuL) 325 mg (65 mg of elemental iron) tablet TAKE 1 TABLET BY MOUTH EVERY DAY WITH BREAKFAST 100 tablet 1 02/09/2025 fluticasone propionate (FLONASE) 50 mcg/actuation nasal spray Administer 2 sprays into each nostril daily 48 g 3 11/10/2024 furosemide (LASIX) 40 mg tabletIndications :PREMA (acute kidney injury) TAKE 1 TABLET BY MOUTH TWICE DAILY 180 tablet 1 10/05/2024 hydrocortisone 2.5 % ointmentIndicatio ns:Contact dermatitis due to plants, except food, unspecified contact dermatitis type Apply topically 2 (two) times a day as needed for rash for up to 10 days 30 g 04/06/2025 5 Lactobacillus acidophilus (PROBIOTIC ORAL) Take 1 Dose by mouth every morning levETIRAcetam (KEPPRA) 750 mg tablet Take 1 tablet (750 mg total) by mouth 2 (two) times a day loperamide HCl (IMODIUM A-D ORAL) Take by mouth prn memantine (NAMENDA) 10 mg tablet Take 1 tablet (10 mg total) by mouth 2 (two) times a day 02/07/2025 metoprolol tartrate (LOPRESSOR) 25 mg immediate release tablet TAKE 2 TABLETS BY MOUTH TWICE DAILY. TAKE WITH 100 MG DOSE FOR TOTAL 150 MG TWICE DAILY 360 tablet 3 02/09/2025 metoprolol XL (TOPROL-XL) 25 mg extended release tablet Take 3 tablets (75 mg total) by mouth nightly 01/18/2025 multivitamin no.44-vit D3-K 1,000-800 unit-mcg capsule Take 1 capsule by mouth every morning mupirocin (BACTROBAN) 2 % ointment Apply topically 3 (three) times a day for 10 days 22 g 04/06/2025 5 ohndb-7-rjh-epa-d pa-fish oil 1,050-1,200 mg capsule Take 1 capsule by mouth 2 times daily risankizumab-rzaa (Skyrizi) 360 mg/2.4 mL (150 mg/mL) wearable injectorIndicatio ns:Crohn's Disease Inject 360 mg under the skin every 8 (eight) weeks 2.4 mL 2 03/08/2025 tamsulosin (FLOMAX) 0.4 mg extended release capsule 1 capsule (0.4 mg total) triamcinolone (KENALOG) 0.1 % ointment Apply 1 application (deactivated) topically as needed 03/28/2021 documented as of this encounter Discharge Disposition Disposition Code Departure Means Destination Discharge to home or self care documented in this encounter Plan of Treatment Pending Results Name Type Priority Associated Diagnoses Date /Time CT Chest WO Contrast Imaging Schedule Routine, Read Routine (OP Routine) Incidental lung nodule 04/10/2025 1:44 PM CDT Scheduled Orders Name Type Priority Associated Diagnoses Orde r Schedule CT Chest WO Contrast Imaging Schedule Routine, Read Routine (OP Routine) Incidental lung nodule Once for 1 Occurrences starting 04/10/2025 until 04/10/2025 documented as of this encounter Procedures Procedure Name Priority Date/Time Associated Diagnosis Comments POCT CREATININE FOR CONTRAST EVALUATION Routine 04/10/2025 1:29 PM CDT documented in this encounter Results * (ABNORMAL) POCT creatinine for contrast evaluation (04/10/2025 1:29 PM CDT) Creatinine POC 3.00(H) 0.80 - 1.30 mg/dL Comment:Testing performed by : [facility], [address] [place] [address]., [address] Blood 04/10/2025 1:29 PM CDT 04/10/2025 1:29 PM CDT Preethi Godoy NP POINT OF CARE TEST ORDERABLES Fi nal Result TRAVIS [address] [facility] [place] [address] documented in this encounter Visit Diagnoses Diagnosis Incidental lung nodule Other diseases of lung, not elsewhere classified documented in this encounter Care Teams Process Development Associate Relationship Specialty Start Date End Date Preethi Godoy NP [facility] [address] [place], [place] [id number] PCP - General Family Medicine 08/25/24 Kath Shepherd MD [address] [place] [address] Consulting Physician Gastroenterology 07/22/19 Peter Ya MD [address] [place] [address] Elementary Secretary Cardiology 07/22/19 Vitaly Ledesma MD [address] [place] [address] Consulting Physician Neurology 07/22/19 Joshua Butterfield MD [address] [facility] 200 [place] [address] Consulting Physician Urology 07/03/23 Jeffery Bustillos MD [address] [facility] 102 [place] [address] Consulting Physician Cardiovascular Disease 02/06/24 Shimon Schofield MD 4600 [facility] 120 [place] [address] Consulting Physician Vascular Surgery 02/06/24 documented as of this encounter
--- OUTSIDE RECORDS SUMMARY | 2025-04-12 14:16 | XMS_ITS | Encounter Summary ---
Author Organization [facility] Healthcare Address [address] [place] [address] Care Team Providers Care Visiting Housekeeper Name Role Phone Kath Shepherd MD Unavailable [phone] Peter Ya MD Unavailable [phone] Vitaly Ledesma MD Unavailable [phone] Joshua Butterfield MD Unavailable [phone] Jeffery Bustillos MD Unavailable [phone] Shimon Schofield MD Unavailable Preethi Godoy NP Primary Care Provider [phone] Encounter Details Date Type Department Care Team (Late st Contact Info) Description 04/12/2025 Results Follow-Up [facility] Medical Group Convenient Care at [address] [address] Gladys Valdovinos NP [address] [place] [address] [address] [place] [address] Aerobic and anaerobic culture and gram stain Wound Buttocks, right, Colleen (yeast) culture Lesion Buttocks, right Social History Tobacco Use Types Packs/Day Years Used Date Smoking Tobacco: Former Cigarettes 29 1 - 1990 Smokeless Tobacco: Never Alcohol [...] file 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 15 g 04/12/2025 5 documented in this encounter Plan of Treatment Not on file documented as of this encounter Visit Diagnoses Not on filedocumented in this encounter Care Teams Visiting Housekeeper Relationship Specialty Start Date End Date Preethi Godoy NP 2 [facility] [address] [place] [address] PCP - General Family Medicine 08/25/24 Kath Shepherd MD [address] [place] [address] Consulting Physician Gastroenterology 07/22/19 Peter Ya MD [address] [place] [address] Manager Marketing Sales Cardiology 07/22/19 Vitaly Ledesma MD [address] [place] [address] Consulting Physician Neurology 07/22/19 Joshua Butterfield MD [address] [facility] [address] [place] [address] Consulting Physician Urology 07/03/23 Jeffery Bustillos MD [address] [facility] 102 [place] [address] Consulting Physician Cardiovascular Disease 02/06/24 Shimon Schofield MD 4600 [facility] [address] [place] [address] Consulting Physician Vascular Surgery 02/06/24 documented as of this encounter
--- OUTSIDE RECORDS SUMMARY | 2025-04-12 14:16 | XMS_ITS | Encounter Summary ---
Author Organization [facility] Address [address] [place] [address] Phone Care Team Providers Care Assembler Insulator Name Role Phone John Kimbrough MD Primary Care Provider Kath Shepherd MD Unavailable [phone] Peter Ya MD Unavailable [phone] Vitaly Ledesma MD Unavailable [phone] Anayeli Lee MD Primary Care Provider Joshua Butterfield MD Unavailable [phone] Jeffery Bustillos MD Unavailable [phone] Shimon Schofield MD Unavailable Preethi Godoy NP Primary Care Provider [phone] Encounter Details Date Type Department Care Team (Late st Contact Info) Description 01/13/2018 Orders Only [facility] ProviderOlive MD [address] [place] [address] Social History Tobacco Use Types Packs/Day Years Used Date Smoking Tobacco: Never Smokeless Tobacco: Never Alcohol Use Standard Drinks/Week Comments No 0 (1 standard drink = 0.6 oz pur e alcohol) Sex and Gender Information Value Date Recorded Sex Assigned at Not on file 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 Gender Identity Not on file Sexual [...] COVID: Suspected 08/21/2021 08/21/2021 08/21/2021 11:38 AM AEROSOL SUPERVISOR COVID: Suspected 11/14/2024 11/14/2024 11/14/2024 10:49 AM AEROSOL SUPERVISOR COVID: Suspected 11/14/2024 11/14/2024 11/14/2024 3:33 PM AEROSOL SUPERVISOR RSV, droplet 11/14/2024 11/14/2024 11/21/2024 3:07 AM AEROSOL SUPERVISOR COVID: Suspected 12/30/2024 12/30/2024 12/30/2024 7:54 PM CDT documented as of this encounter Care Teams Assembler Insulator Relationship Specialty Start Date End Date John Kimbrough MD PCP - General 11/08/16 07/02/23 Anayeli Lee MD [address] [place] [address] PCP - General Family Medicine 07/03/23 08/24/24 Preethi Godoy NP [facility] [address] [place] [address] PCP - General Family Medicine 08/25/24 Kath Shepherd MD [address] [place] [address] Consulting Physician Gastroenterology 07/22/19 Peter Ya MD [address] [place] [address] Checking Department Supervisor Cardiology 07/22/19 Vitaly Ledesma MD [address] [place] [address] Consulting Physician Neurology 07/22/19 Joshua Butterfield MD [address] [facility] [address] [place] [address] Consulting Physician Urology 07/03/23 Jeffery Bustillos MD [address] [facility] [address] [place] [address] Consulting Physician Cardiovascular Disease 02/06/24 Shimon Schofield MD [address] [address] Consulting Physician Vascular Surgery 02/06/24 documented as of this encounter
--- OUTSIDE RECORDS SUMMARY | 2025-04-12 14:16 | XMS_ITS | Encounter Summary ---
Author Organization [facility] Address [address] [place] [address] Phone Care Team Providers Care Digital Associate Name Role Phone John Kimbrough MD Primary Care Provider Kath Shepherd MD Unavailable [phone] Peter Ya MD Unavailable [phone] Vitaly Ledesma MD Unavailable [phone] Anayeli Lee MD Primary Care Provider Joshua Butterfield MD Unavailable [phone] Jeffery Bustillos MD Unavailable [phone] Shimon Schofield MD Unavailable Preethi Godoy NP Primary Care Provider [phone] Encounter Details Date Type Department Care Team [...] on file 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 Gender Identity Not on file Sexual Orientation Not on file 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 [employer]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 Not [...] COVID: Suspected 08/21/2021 08/21/2021 08/21/2021 11:38 AM PUPPET MAKER COVID: Suspected 11/14/2024 11/14/2024 11/14/2024 10:49 AM PUPPET MAKER COVID: Suspected 11/14/2024 11/14/2024 11/14/2024 3:33 PM PUPPET MAKER RSV, droplet 11/14/2024 11/14/2024 11/21/2024 3:07 AM PUPPET MAKER COVID: Suspected 12/30/2024 12/30/2024 12/30/2024 7:54 PM CDT documented as of this encounter Care Teams Digital Associate Relationship Specialty Start Date End Date John Kimbrough MD PCP - General 11/08/16 07/02/23 Anayeli Lee MD [address] [place] [address] PCP - General Family Medicine 07/03/23 08/24/24 Preethi Godoy NP [address] [address] PCP - General Family Medicine 08/25/24 Kath Shepherd MD [address] [place] [address] Consulting Physician Gastroenterology 07/22/19 Peter Ya MD [address] [place] [address] Data Control Clerk Cardiology 07/22/19 Vitaly Ledesma MD [address] [place] [address] Consulting Physician Neurology 07/22/19 Joshua Butterfield MD [address] [address] Consulting Physician Urology 07/03/23 Jeffery Bustillos MD [address] [address] Consulting Physician Cardiovascular Disease 02/06/24 Shimon Schofield MD [address] [address] Consulting Physician Vascular Surgery 02/06/24 documented as of this encounter
--- OUTSIDE RECORDS SUMMARY | 2025-04-12 14:16 | XMS_ITS | Encounter Summary ---
Author Organization [facility] Healthcare Address [address] [place] [address] Care Team Providers Care Fire Investigator Name Role Phone Kath Shepherd MD Unavailable [phone] Peter Ya MD Unavailable [phone] Vitaly Ledesma MD Unavailable [phone] Joshua Butterfield MD Unavailable [phone] Jeffery Bustillos MD Unavailable [phone] Shimon Schofield MD Unavailable Preethi Godoy NP Primary Care Provider [phone] Reason for Visit * Reason Onset Date Comments UA results 04/07/2025 Encounter Details Date Type Department Care Team (Late st Contact Info) Description 04/07/2025 Results Follow-Up [facility] Medical Group Primary Care at [address] [address] Ilana Powers NP [address] [place] [address] [address] [place] [address] Urinalysis reflex to microscopic and culture Urine, in and out catheter, Urinalysis, microscopic only Social History Tobacco Use Types Packs/Day Years Used Date Smoking Tobacco: Former Cigarettes 1 29 1 1990 Smokeless Tobacco: Never Alcohol Use Standard [...] on file 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 Patient verbalizes understanding. No further questions. * Telephone Encounter - Kalpana Moscoso MA - 04/11/2025 1:24 PM CDT ----- Message from Ilana Powers NP sent at 04/07/2025 3:23 PM CDT ----- Please notify patient/ family there is no UTI present. ----- Message ----- From: Interface, Lab Results In Sent: 04/06/2025 8:27 PM CDT To: Preethi Godoy NP * Telephone Encounter - Kalpana Moscoso MA - 04/10/2025 1:56 PM CDT Attempted to contact Vitaly dangelo on to call [phone] Regarding: UA Please relay: Please notify patient/ family there is no UTI present. * Telephone Encounter - Kalpana Moscoso MA - 04/10/2025 1:56 PM CDT ----- Message from Ilana Powers NP sent at 04/07/2025 3:23 PM CDT ----- Please notify patient/ family there is no UTI present. ----- Message ----- From: Interface, Lab Results In Sent: 04/06/2025 8:27 PM CDT To: Preethi Godoy NP documented in this encounter Plan of Treatment Not on file documented as of this encounter Visit Diagnoses Not on filedocumented in this encounter Care Teams Fire Investigator Relationship Specialty Start Date End Date Preethi Godoy NP [address] [facility] [address] [place] [address] PCP - General Family Medicine 08/25/24 Kath Shepherd MD [address] [place] [address] Consulting Physician Gastroenterology 07/22/19 Peter Ya MD [address] [place] [address] Rn Baby Cardiology 07/22/19 Vitaly Ledesma MD [address] [place] [address] Consulting Physician Neurology 07/22/19 Joshua Butterfield MD [address] [facility] 162 [facility] 200 [place] [address] Consulting Physician Urology 07/03/23 Jeffery Bustillos MD [address] [address] Consulting Physician Cardiovascular Disease 02/06/24 Shimon Schofield MD [address] [address] Consulting Physician Vascular Surgery 02/06/24 documented as of this encounter
--- OUTSIDE RECORDS SUMMARY | 2025-04-12 14:16 | XMS_ITS | Encounter Summary ---
Author Organization [facility] Healthcare Address [address] [place] [address] Care Team Providers Care Sugar Cane Planting Equipment Operator Name Role Phone Kath Shepherd MD Unavailable [phone] Peter Ya MD Unavailable [phone] Vitaly Ledesma MD Unavailable [phone] Joshua Butterfield MD Unavailable [phone] Jeffery Bustillos MD Unavailable [phone] Shimon Schofield MD Unavailable Preethi Godoy NP Primary Care Provider [phone] Encounter Details Date Type Department Care Team (Late st Contact Info) Description 03/18/2025 Results Follow-Up [facility] Medical Group Primary Care at [address] [address] Ilana Powers NP [address] [place] [address] [address] [place] [address] Urinalysis reflex to microscopic and culture Urine, in and out catheter, Urinalysis, microscopic only, Urine culture Urine, in and out catheter Social History Tobacco Use Types Packs/Day Years Used Date Smoking Tobacco: Former Cigarettes 1 29 1 - 1990 Smokeless Tobacco: Never [...] on file 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 Gender Identity Not on file Sexual Orientation Not on file 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 Start Date Job End Date 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 [employer] Not on file Not on file Not on file documented as of this encounter Plan of Treatment Not on file documented as of this encounter Visit Diagnoses Not on filedocumented in this encounter Care Teams Sugar Cane Planting Equipment Operator Relationship Specialty Start Date End Date Preethi Godoy NP 2121 [facility] [address] [place] [address] PCP - General Family Medicine 08/25/24 Kath Shepherd MD [address] [place] [address] Consulting Physician Gastroenterology 07/22/19 Peter Ya MD [address] [place] [address] Geographical Historian Cardiology 07/22/19 Vitaly Ledesma MD [address] [place] [address] Consulting Physician Neurology 07/22/19 Joshua Butterfield MD [address] [facility] [address] [place] [address] [place] [id number] Consulting Physician Urology 07/03/23 Jeffery Bustillos MD [address] [address] Consulting Physician Cardiovascular Disease 02/06/24 Shimon Schofield MD [address] [address] Consulting Physician Vascular Surgery 02/06/24 documented as of this encounter
--- OUTSIDE RECORDS SUMMARY | 2025-04-12 14:16 | XMS_ITS | Encounter Summary ---
Author Organization [facility] Address [address] [place] [address] Phone Care Team Providers Care Fairground Operator Name Role Phone John Kimbrough MD Primary Care Provider [phone] Kath Shepherd MD Unavailable [phone] Peter Ya MD Unavailable [phone] Vitaly Ledesma MD Unavailable [phone] Anayeli Lee MD Primary Care Provider Joshua Butterfield MD Unavailable [phone] Jeffery Bustillos MD Unavailable [phone] Shimon Schofield MD Unavailable Preethi Godoy NP Primary Care Provider Encounter Details Date Type Department Care Team (Late st Contact Info) Description 08/21/2021 Telephone [facility] Oncology [address] [facility] [address] [place] [id number] Maribel Shore CPhT Social History Tobacco Use Types Packs/Day Years Used Date Smoking Tobacco: Former Cigarettes 96 - 1990 Smokeless Tobacco: Never Alcohol Use [...] on file 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 Gender Identity Not on file Sexual Orientation Not on file 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 Not on file Not on file documented as of this encounter Plan of Treatment Not on file documented as of this encounter Visit Diagnoses Not on filedocumented in this encounter Additional Health Concerns Infection Onset Date Last Indicated Resolved Time COVID: Suspected 08/21/2021 08/21/2021 08/21/2021 11:38 AM [employer]ONDARY SCHOOL TEACHER COVID: Suspected 11/14/2024 11/14/2024 11/14/2024 10:49 AM SECONDARY SCHOOL TEACHER COVID: Suspected 11/14/2024 11/14/2024 11/14/2024 3:33 PM [employer]ARY SCHO[employer] TEACHER RSV, droplet 11/14/2024 11/14/2024 11/21/2024 3:07 AM SECONDARY SCHOOL TEACHER COVID: Suspected 12/30/2024 12/30/2024 12/30/2024 7:54 PM CDT documented as of this encounter Care Teams Fairground Operator Relationship Specialty Start Date End Date John Kimbrough MD PCP - General 11/08/16 07/02/23 Anayeli Lee MD [address] [place] [address] PCP - General Family Medicine 07/03/23 08/24/24 Preethi Godoy NP [address] [address] PCP - General Family Medicine 08/25/24 Kath Shepherd MD [address] [place] [address] Consulting Physician Gastroenterology 07/22/19 Peter Ya MD [address] [place] [address] Tank Wagon Driver Cardiology 07/22/19 Vitaly Ledesma MD [address] [place] [address] Consulting Physician Neurology 07/22/19 Joshua Butterfield MD [address] [place], [place] [id number] Consulting Physician Urology 07/03/23 Jeffery Bustillos MD [address] [facility] [address] [place] [address] Consulting Physician Cardiovascular Disease 02/06/24 Shimon Schofield MD [address] [address] Consulting Physician Vascular Surgery 02/06/24 documented as of this encounter
--- OUTSIDE RECORDS SUMMARY | 2025-04-12 14:16 | XMS_ITS | Encounter Summary ---
Author Organization [facility] Address [address] [place] [address] Care Team Providers Care Per Diem Interpreter Name Role Phone Kath Shepherd MD Unavailable [phone] Peter Ya MD Unavailable [phone] Vitaly Ledesma MD Unavailable [phone] Joshua Butterfield MD Unavailable [phone] Jeffery Bustillos MD Unavailable [phone] Shimon Schofield MD Unavailable Preethi Godoy NP Primary Care Provider [phone] Reason for Visit * Reason Onset Date Comments Medical Question/Miscellaneous 03/31/2025 Encounter Details Date Type Department Care Team (Late st Contact Info) Description 03/31/2025 Telephone [facility] Primary Care at [address] [address] Preethi Godoy NP [address] [place] [address] [address] [place] [address] Medical Question/Miscellaneous Social History Tobacco [...] file 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 Does message need to be routed? No documented in this encounter Plan of Treatment Not on file documented as of this encounter Visit Diagnoses Not on filedocumented in this encounter Care Teams Per Diem Interpreter Relationship Specialty Start Date End Date Preethi Godoy NP [address] [facility] [address] [place] [address] PCP - General Family Medicine 08/25/24 Kath Shepherd MD [address] [place] [address] Consulting Physician Gastroenterology 07/22/19 Peter Ya MD [address] [place] [address] Form Setter Supervisor Cardiology 07/22/19 Vitaly Ledesma MD [address] [place] [address] Consulting Physician Neurology 07/22/19 Joshua Butterfield MD [address] [facility] [address] [place] [address] Consulting Physician Urology 07/03/23 Jeffery Bustillos MD [address] [facility] [address] [place] [address] Consulting Physician Cardiovascular Disease 02/06/24 Shimon Schofield MD [address] [facility] [address] [place] [address] Consulting Physician Vascular Surgery 02/06/24 documented as of this encounter
--- OUTSIDE RECORDS SUMMARY | 2025-04-12 14:16 | XMS_ITS | Referral Summary ---
Author Organization [facility] Address [address] [place] [address] Care Team Providers Care Catering Attendant Name Role Phone Kath Shepherd MD Unavailable Peter Ya MD Unavailable Aziza Ledesma MD Unavailable Joshua Butterfield MD Unavailable [phone] Jeffery Bustillos MD Unavailable [phone] Shimon Schofield MD Unavailable Preethi Godoy NP Primary Care Provider Encounters Date Type Department Care Team Description 04/12/2025 Results Follow-Up [facility] at [address] [phone] Gladys Valdovinos NP Aerobic and anaerobic culture and gram stain Wound Buttocks, right, Colleen (yeast) culture Lesion Buttocks, right 04/10/2025 12:55 PM CDT - 04/10/2025 11:59 PM CDT Hospital Encounter [address] [address] Incidental lung nodule Discharge Disposition: Discharge to home or self care 04/07/2025 Results Follow-Up [facility] at [address] [phone] Ilana Powers NP Urinalysis reflex to microscopic and culture Urine, in and out catheter, Urinalysis, microscopic only 04/06/2025 11:24 AM CDT - 04/06/2025 11:59 PM CDT Hospital Encounter [address] [address] Local skin infection Discharge Disposition: Discharge to home or self care 04/06/2025 10:42 AM CDT - 04/06/2025 11:59 PM CDT Hospital Encounter [address] [address] Recurrent UTI; Altered mental status, unspecified altered mental status type Discharge Disposition: Discharge to home or self care 04/06/2025 11:00 AM CDT Office Visit [facility] at [address] [phone] Sandrita Daugherty NP Local skin infection (Primary Dx); Contact dermatitis due to plants, except food, unspecified contact dermatitis type 04/06/2025 10:45 AM CDT Lab [facility] at [address] [phone] 04/04/2025 Telephone [facility] at [address] [phone] Preethi Godoy NP Symptom Based Call 03/31/2025 Telephone [facility] at [address] [phone] Preethi Godoy NP Medical Question/Miscellane ous 03/18/2025 Results Follow-Up [facility] at [address] [phone] Ilana Powers NP Urinalysis reflex to microscopic and culture Urine, in and out catheter, Urinalysis, microscopic only, Urine culture Urine, in and out catheter 03/18/2025 Orders Only [facility] at [address] [phone] Ilana Powers NP Acute cystitis without hematuria (Primary Dx) 03/18/2025 11:49 AM CDT - 03/18/2025 11:59 PM CDT Hospital Encounter [address] [address] Recurrent UTI Discharge Disposition: Discharge to home or self care 03/18/2025 12:00 PM CDT Lab [facility] Out[facility] Lab at [address] [phone] 03/18/2025 Nurse Triage [facility] at [address] [phone] Love Piña RN Recurrent UTI (Primary Dx) 03/03/2025 9:58 AM CDT - 03/03/2025 11:59 PM CDT Hospital Encounter [facility] ([facility]) [address] [place] [address] Amyloid myopathy (HCC) Discharge Disposition: Discharge to home or self care 02/25/2025 8:36 AM CDT - 02/25/2025 11:59 PM CDT Hospital Encounter [address] [address] Acute cystitis with hematuria Discharge Disposition: Discharge to home or self care 02/25/2025 8:45 AM CDT Lab [facility] Outpatient Lab at [address] [phone] Acute hemorrhagic cystitis (Primary Dx) 02/21/2025 11:45 AM CDT Office Visit [facility] at [address] [phone] Ankit Pascal MD Acute cystitis with hematuria (Primary Dx) 02/21/2025 Nurse Triage [facility] at [address] [phone] Preethi Godoy NP 02/17/2025 Results Follow-Up [facility] at [address] [phone] Ankit Pascal MD Urine culture Urine, clean voided 02/15/2025 4:29 PM CDT - 02/15/2025 11:59 PM CDT Hospital Encounter [address] [address] Confusion Discharge Disposition: Discharge to home or self care 02/15/2025 4:15 PM CDT Office Visit [facility] at [address] [phone] Ankit Pascal MD Acute cystitis with hematuria (Primary Dx); Confusion 02/15/2025 Nurse Triage [facility] at [address] [phone] Preethi Godoy NP 02/09/2025 Telephone [facility] at [address] [phone] Preethi Godoy NP Medication Request 01/28/2025 Telephone [facility] [address] [facility] [address] [place] [phone] Madai Enrique NP 01/28/2025 Orders Only [facility] [address] [facility] [address] [place] [phone] Madai Enrique NP Amyloid myopathy (HCC) (Primary Dx); Mitral valve insufficiency, unspecified etiology; Incidental lung nodule 01/23/2025 Results Follow-Up [facility] at [address] [phone] Ankit Pascal MD Urinalysis reflex to microscopic and culture Urine, Urinalysis, microscopic only 01/21/2025 11:15 AM CDT Ancillary Procedure [facility] at [address] [place] [address] Coronary artery disease involving coronary bypass graft of [place] heart, unspecified whether angina present; Fatigue, unspecified type; Hypotension, unspecified hypotension type 01/19/2025 12:03 PM CDT - 01/19/2025 11:59 PM CDT Hospital Encounter [address] [address] Recurrent UTI Discharge Disposition: Discharge to home or self care 01/19/2025 Results Follow-Up [facility] at [address] [phone] Ankit Pascal MD CBC with auto differential, Differential, auto 01/19/2025 12:15 PM CDT Lab [facility] at [address] [phone] 01/18/2025 11:20 AM CDT - 01/18/2025 11:59 PM CDT Hospital Encounter [address] [address] CAP (community acquired pneumonia) Discharge Disposition: Discharge to home or self care 01/18/2025 Results Follow-Up [facility] at [address] [phone] Ankit Pascal MD XR Chest Pa Lateral 2 Views 01/18/2025 11:30 AM CDT Lab [facility] at [address] [phone] KAYLA (generalized anxiety disorder) (Primary Dx); Benign prostatic hyperplasia with urinary retention 01/18/2025 11:45 AM CDT Ancillary Procedure [facility] at [address] [phone] 01/18/2025 10:30 AM CDT Office Visit [facility] at [address] [phone] Ankit Pascal MD Hospital discharge follow-up (Primary Dx); CAP (community acquired pneumonia); Recurrent UTI 01/11/2025 Telephone [facility] at [address] [phone] Preethi Godoy NP APRIL Questions from Last 3 Months Allergies No known active allergies Medications coenzyme Q10 10 mg capsule Take 2 capsules (20 mg total) by mouth every morning Active izmlu-3-ept-ep a-dpa-fish oil 1,050-1,200 mg capsule Take 1 [...] Frequency Start Date End Date Status [facility] BMS-579318/placebo (/[id number]) capsule 4 capsuleIndications:Crohn' s disease of both small and large intestine with other complication (HCC) 4 capsule oral 2 times daily 05/21/2022 Active [facility] BMS-614661/placebo (/[id number]) capsule 4 capsuleIndications:Crohn' s disease of both small and large intestine with other complication (HCC) 4 capsule oral 2 times daily 06/18/2022 Active [facility] BMS-843016/placebo (/[id number]) capsule 4 capsuleIndications:Crohn' s disease of both small and large intestine with other complication (HCC) 4 capsule oral 2 times daily 07/09/2022 Active [facility] BMS-077999/placebo (/[id number]) capsule 4 capsuleIndications:Crohn' s disease of both small and large intestine with other complication (HCC) 4 capsule oral 2 times daily 08/07/2022 Active [facility] BMS-924713/placebo (/[id number]) capsule 4 capsuleIndications:Crohn' s disease of both small and large intestine with other complication (HCC) 4 capsule oral 2 times daily 09/19/2022 Active [facility] BMS-905983/placebo (/[id number]) capsule 4 capsuleIndications:Crohn' s disease of both [...] modification Assessment & Plan (10/03/2023 1:12 PM CORRECTIONS IDENTIFICATION TECHNICIAN): Chronic. Due to prior peripheral arterial disease. [...] urologist Assessment & Plan (10/03/2023 1:12 PM CORRECTIONS IDENTIFICATION TECHNICIAN): Chronic. Continue medication care per Urology Assessment [...] loss Assessment & Plan (10/03/2023 1:12 PM CORRECTIONS IDENTIFICATION TECHNICIAN): Chronic. BMI remains at the lower end arrange. Encouraged adequate nutrition. Monitor History of gout 07/03/2023 Assessment & Plan (02/06/2024 4:55 PM CDT): Chronic. Denies history of recent flares. Continue allopurinol for prophylaxis. Check uric acid Assessment & Plan (10/03/2023 1:12 PM CORRECTIONS IDENTIFICATION TECHNICIAN): Chronic. Denies any history of gout in [...] 03/14/2023 Assessment & Plan (10/03/2023 1:13 PM CORRECTIONS IDENTIFICATION TECHNICIAN): Chronic. May occasionally increase in size. Minimal pain. Has deferred elective repair in the past Persistent atrial fibrillation 12/04/2021 Assessment & Plan (11/23/2024 1:36 PM CORRECTIONS IDENTIFICATION TECHNICIAN): Rate controlled in office, continuing follow up with Cardiology. Assessment & Plan (03/01/2024 7:51 AM CDT): Stable continue metoprolol. Assessment & Plan (02/06/2024 4:55 PM CDT): Chronic. Controlled rate with metoprolol. Continue. Continue aspirin for stroke prophylaxis Assessment & Plan (10/03/2023 1:12 PM CORRECTIONS IDENTIFICATION TECHNICIAN): Chronic. Continue risk factor modification. Continue ASA [...] Monitor Assessment & Plan (10/03/2023 1:11 PM CORRECTIONS IDENTIFICATION TECHNICIAN): Chronic. Denies significant worsening. No agitation recently. [...] They denies significant agitation Cerebral amyloid angiopathy ([facility]) 02/15/2020 Assessment & Plan (02/06/2024 4:54 PM CDT): Chronic. Memory has worsened slightly in the last year. He does have some fluctuations at times. No real agitation. Target good blood pressure control. Continue aspirin for his other issues. Would be cautious with more aggressive anticoagulation given history of amyloid angiopathy Assessment & Plan (10/03/2023 1:11 PM CORRECTIONS IDENTIFICATION TECHNICIAN): Chronic. Denies any progression of symptoms Assessment & Plan (07/03/2023 5:18 PM CDT): Chronic. Control blood pressure and modify risk factors as able. Continue aspirin given AFib but would be cautious with stronger anticoagulants given increased bleeding risk with cerebral amyloid angiopathy Peripheral artery disease 09/10/2019 Overview (09/10/2019): Added automatically from request for surgery [id number] Assessment & Plan (09/03/2024 10:57 AM CORRECTIONS IDENTIFICATION TECHNICIAN): Stable lower extremity occlusive disease. Continue risk [...] duplex. Assessment & Plan (10/03/2023 1:11 PM CORRECTIONS IDENTIFICATION TECHNICIAN): Chronic. Denies recent claudication symptoms. Continue ASA, statin and Pletal Assessment & Plan (07/03/2023 5:22 PM CDT): Chronic. 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 Denies current sores on his feet. Follows with Podiatry in [place]. On cilostazol Iron deficiency anemia due to [...] 02/17/2019 Assessment & Plan (11/23/2024 1:35 PM CORRECTIONS IDENTIFICATION TECHNICIAN): BP normal in office, continuing current regimen. [...] dehydrate Assessment & Plan (10/03/2023 1:10 PM CORRECTIONS IDENTIFICATION TECHNICIAN): Chronic. Blood pressure controlled. Continue current prescription [...] (01/26/2019): Added automatically from request for surgery [id number] Assessment & Plan (02/06/2024 4:52 PM CDT): Chronic. Disease has been stable. Minimal symptoms. He does have to be cautious with eating too many fruits and vegetables as he notes this does cause some GI distress. He remains controlled with Skyrezi and hydroxychloroquine. He will continue Assessment & Plan (10/03/2023 1:10 PM CORRECTIONS IDENTIFICATION TECHNICIAN): Chronic. Symptomatically improved per patient. Continue medication and care per GI Assessment & Plan (07/03/2023 5:20 PM CDT): Chronic. Follows with Gastroenterology. On scar oz and sulfasalazine. Continue medication and care per them CAD (coronary artery disease) 12/04/2018 Assessment & Plan (09/03/2024 10:57 AM CORRECTIONS IDENTIFICATION TECHNICIAN): Stable continue ASA and Lasix Assessment & Plan (02/06/2024 4:51 PM CDT): Chronic. Denies chest pain. Continue risk factor modification with statin, aspirin, blood pressure control. Target LDL less than 70 Assessment & Plan (10/03/2023 1:10 PM CORRECTIONS IDENTIFICATION TECHNICIAN): Chronic. Denies chest pain. Follows with cardiology. [...] 12/30/2017 Assessment & Plan (08/25/2024 4:06 PM CORRECTIONS IDENTIFICATION TECHNICIAN): Updated labs ordered, Hemoglobin was 9 in [...] infusions Assessment & Plan (10/03/2023 1:10 PM CORRECTIONS IDENTIFICATION TECHNICIAN): Chronic. Follows with GI and Hematology. Has received iron infusions. Often does B12 injections Assessment & Plan (07/03/2023 5:15 PM CDT): Chronic. Follows with GI and Hematology. Received iron infusions Hypercholesterolemia 02/05/2011 Assessment & Plan (09/03/2024 10:57 AM CORRECTIONS IDENTIFICATION TECHNICIAN): Stable continue statin therapy. Assessment & Plan (03/01/2024 7:50 AM CDT): Stable continue statin therapy. Assessment & Plan (02/06/2024 4:53 PM CDT): Chronic. Tolerates atorvastatin. Continue. Check cholesterol level and adjust for an LDL goal of at least less than 70 with optimal less than 55 Assessment & Plan (10/03/2023 1:10 PM CORRECTIONS IDENTIFICATION TECHNICIAN): Chronic. Tolerates current prescription medication. 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 [employer] Not on file Not on file Not [...] 04/06/2025 11:00 AM CDT Plan of Treatment Not on file Medical Devices Implanted Type Area Manufacturing Automation Engineer Device Identifier Shelf Expiration Date Model / Serial / Lot [employer] Araceli [id number] Synergy 3.5mm 24mm 144cm Radiopaque 1 Access Port Inflation Lumen - [id number] - [id number] Implanted:Qty: 1 on 03/26/2019 by Alban Santana MD at [facility] Stent [employer] Ar[employer]eli 12/09/2020 [id number] / [id number] / [id number] Procedures Procedure Name Priority Date/Time Associated Diagnosis [...] artery disease involving coronary bypass graft of [place] heart, unspecified whether angina present Fatigue, unspecified [...] (community acquired pneumonia) COLONOSCOPY 10/21/2024 10:56 AM CORRECTIONS IDENTIFICATION TECHNICIAN CTA ABDOMEN PELVIS W WO CONTRAST Schedule [...] - 1.30 mg/dL Comment:Testing performed by : [facility], [address] [place] [address], [place]., [address] Blood 04/10/2025 1:29 PM CDT 04/10/2025 1:29 PM CDT Preethi Godoy NP POINT OF CARE TEST ORDERABLES Fi nal Result [facility] [address] [facility] Department [place] [address] * (ABNORMAL) Colleen (yeast) culture Lesion Buttocks, right (04/06/2025 11:24 AM CDT) Report Final Report: Moderate Colleen albicans (.) Comment:Testing performed by : [facility], [address] [place]., [address] Organism COLLEEN ALBICANS [facility] Lesion (Buttocks, right) 04/06/2025 11:24 AM CDT 04/06/2025 10:12 PM CDT Narrative [facility] - 04/12/2025 6:56 AM CDT Interpretation data: This culture is NOT intended for the detection of filamentous fungi, endemic mycosis, or Cryptococcus. If detected, yeast will be reported and identified. Routine susceptibility is not performed, but if required, please contact the Microbiology Laboratory at . Sandrita Daugherty NP LAB MICROBIOLOGY - GENERAL HILARIO JULIAN Final Result [facility] [address] [address] Department [place] [address] * (ABNORMAL) Urinalysis reflex to microscopic and culture Urine, in and out catheter (04/06/2025 10:42 AM CDT) Color, ur Yellow Yellow Clarity, ur Turbid(A) Clear CERNER Specific gravity, ur 1.016 1.003 - 1.030 CERNER CH pH, urine 6.5 CERNER Comment: Interpretive Data U rine pH is affected by diet, medications, systemic acid-base disturbances, and renal tubular function. pH may affect urinary stone formation. For example, urine pH below 6.0 may help reduce the tendency for calcium phosphate stones and pH greater than 6.0 may reduce the tendency for uric acid stone formation. Source: [employer] Current Interpretive Data was last revised on 2017 Protein, ur ql Negative Negative CERNER CH Glucose, ur ql Negative Negative CERN[facility] CH Ketones, ur Negative Negative CERNER CH Bilirubin, ur Negative Negative CERNER CH Blood, ur Negative Negative CERNER CH Urobilinogen, ur <2.0 <2.0 mg/dL CERNER Nitrite, ur Positive(A) Negative [facility]ERN[facility] CH Leukocyte esterase, ur 4+(A) Negative CERNER CH UA reflex comment Reflex to microscopic UA will be performed. [facility] Urine, in and out catheter 04/06/2025 10:42 AM CDT 04/06/2025 8:18 PM CDT us Preethi Godoy NP LAB MICROBIOLOGY - GENERAL ORDER MANJINDER Final Result Performing Organization Address [facility] de Phone Number [facility] [address] [place] [address] * (ABNORMAL) Urinalysis, microscopic only (04/06/2025 10:42 AM CDT) WBC, ur 6-10(A) 0 - 5 /HPF RBC, ur 0-2 0 - 2 /HPF [facility] Epithelial cells, squamous, ur 1-5 0 - 5 /HPF [facility] Bacteria, ur 1+(A) [facility] Culture Reflex Comment Reflex conditions for urine culture (WBC >10) not met. [facility] Urine, in and out catheter 04/06/2025 10:42 AM CDT 04/06/2025 8:18 PM CDT us Preethi Godoy NP LAB URINE ORDERABLES Final Resul t Performing Organization Address [facility] de Phone Number [facility] [address] [place] [address] * (ABNORMAL) Urinalysis reflex to microscopic and culture Urine, in and out catheter (03/18/2025 11:49 AM CDT) Color, ur Yellow Yellow Clarity, ur Turbid(A) Clear [facility] Specific gravity, ur 1.014 1.003 - 1.030 CERNER pH, urine 6.0 [facility] Comment: Interpretive Data U rine pH is affected by diet, medications, systemic acid-base disturbances, and renal tubular function. pH may affect urinary stone formation. For example, urine pH below 6.0 may help reduce the tendency for calcium phosphate stones and pH greater than 6.0 may reduce the tendency for uric acid stone formation. Source: [facility] [place] Current Interpretive Data was last revised on [...] to microscopic UA will be performed. CERNER Urine, in and out catheter 03/18/2025 11:49 AM CDT 03/18/2025 3:22 PM CDT us Preethi Godoy NP LAB MICROBIOLOGY - GENERAL ORDER MANJINDER Final Result Performing Organization Address [facility] de Phone Number TRA[facility] [place] [address] [place] [address] * (ABNORMAL) Urinalysis, microscopic only (03/18/2025 11:49 AM CDT) WBC, ur >50(A) 0 - 5 /HPF RBC, ur 0-2 0 - 2 /HPF CERNER Epithelial cells, squamous, ur 1-5 0 - 5 /HPF CERNER Bacteria, ur 2+(A) [facility]ERNER CH Mucous, ur Present(A) [facility] CH Culture Reflex Comment Reflex to urine culture will be performed. [facility] Urine, in and out catheter 03/18/2025 11:49 AM CDT 03/18/2025 3:22 PM CDT us Preethi Godoy NP LAB URINE ORDERABLES Final Resul t Performing Organization Address [facility] Co de Phone Number [facility] [address] [facility] [place] [address] * (ABNORMAL) Urine culture Urine, in and out catheter (03/18/2025 11:49 AM CDT) Report Final Report: Greater than or equal to 100,000 colonies/mL of Klebsiella pneumoniae Greater than or equal to 100,000 colonies/mL of Klebsiella pneumoniae #2 (.) Comment:Testing performed by : [facility], [address] [place]., [address] Organism KLEBSIELLA PNEUMONIAE TRAVIS Organism KLEBSIELLA PNEUMONIAE TRAVIS Urine, in and out catheter 03/18/2025 11:49 AM CDT 03/18/2025 6:29 PM CDT Narrative [facility] - 03/20/2025 10:30 AM CDT Urine culture reflexed based upon urinalysis results. Testing performed by [facility] ([phone]) Organism Antibiotic Method Susceptibility Klebsiella pneumoniae Ampicillin [...] INTERPRETATION Susceptible Klebsiella pneumoniae Cefdinir INTERPRETATION Susceptible us Preethi Godoy NP LAB MICROBIOLOGY - GENERAL ORDER MANJINDER Final Result [facility] [address] Department [place] [address] * MRI Cardiac M&F W WO Contrast [...] signed by: Ludwig Talley M.D. Madai Enrique NP IMG MRI PROCEDURES Final Res ult * [...] tendency for uric acid stone formation. Source: [employer] Current Interpretive Data was last revised on [...] UA will be performed. [facility]ER CH Urine 02/25/2025 8:36 AM CDT 02/25/2025 3:09 PM CDT Ankit Pascal MD LAB MICROBIOLOGY - GENERAL ORDERABLES Final Result Performing Organization Address [facility] Co de Phone Number TRA[facility] [place] [address] [address] [facility] [place] [address] * (ABNORMAL) Urinalysis, microscopic only (02/25/2025 8:36 AM CDT) WBC, ur >50(A) 0 - 5 /HPF RBC, ur 0-2 0 - 2 /HPF CERNER Epithelial cells, squamous, ur 1-5 0 - 5 /HPF CERNER Bacteria, ur Trace(A) CERNER CH Mucous, ur Present(A) CERNER Hyaline casts, ur 1-5 0 - 10 /LPF CERNER CH Culture Reflex Comment Reflex to urine culture will be performed. CERNER Urine 02/25/2025 8:36 AM CDT 02/25/2025 3:09 PM CDT Ankit Pascal MD LAB URINE ORDERABLES Final Result Performing Organization Address [facility] de Phone Number TRA[facility] [place] [address] [place] [address] * (ABNORMAL) Urine culture Urine (02/25/2025 8:36 AM CDT) Report Final Report: Greater than or equal to 100,000 colonies/mL of Klebsiella pneumoniae Plus growth of clinically insignificant bacterial alton. (.) Comment:Testing performed by : [facility], [address] [facility] [place] [address] Organism KLEBSIELLA PNEUMONIAE [facility] Organism PLUS GROWTH OF CLINICALLY INSIGNIFICANT ALTON. CERNER Urine 02/25/2025 8:36 AM CDT 02/25/2025 6:25 PM CDT Narrative [facility]ER CH - 02/27/2025 11:00 AM CDT Urine culture reflexed based upon urinalysis results. Testing performed by [facility] ([phone]) Organism Antibiotic Method Susceptibility Klebsiella pneumoniae Ampicillin [...] - GENERAL ORDERABLES Final Result [facility] [address] [address] [place] [address] * (ABNORMAL) POCT UA, AUTO W/O SCOPE (02/15/2025 4:30 PM CDT) Color, Urine, POC Yellow Clarity, ur, POC Cloudy(A) Clear Glucose, ur, POC Negative Negative Bilirubin, ur, POC Negative Negative Ketones, ur, POC Negative Negative Specific Vestal, POC 1.020 1.003 - 1.030 Blood, ur, [...] bacterial alton. (.) Comment:Testing performed by : [facility], [address] [place] [address] Organism KLEBSIELLA PNEUMONIAE [facility]E Organism PLUS GROWTH OF CLINICALLY INSIGNIFICANT ALTON. TRAVIS Urine, clean voided 02/15/2025 4:29 PM CDT 02/15/2025 10:46 PM CDT Narrative TRAVIS BROWNLEE - 02/18/2025 6:27 AM CDT Testing performed by [facility] ([phone]) Organism Antibiotic Method Susceptibility Klebsiella pneumoniae Ampicillin [...] LAB MICROBIOLOGY - GENERAL ORDERABLES Final Result [facility] [place] [address] Department [place] [address] * Lipid panel (01/26/2025 1:34 PM CDT) Blood Historical Provider LAB BLOOD ORDERABLES Laly l Result EXTERNAL LAB * TRANSTHORACIC ECHO (TTE) COMPLETE W DOPPLER/CF WO CONTRAST (01/21/2025 11:37 AM CDT) Estimated EF 50-55 % CONS SCIMAGE EF Mod BP 56 % CONS SCIMAGE Anatomical Region Laterality Modality Ultrasound 01/21/2025 11:2 0 AM CDT Narrative 01/21/2025 12:31 PM CDT [facility] [address], [address], [place] [address] P:[phone] P:[phone] Echocardiographic Report Patient Name: AZIZA LOYA O : 1945 Study Date: 01/21/2025 11:20:02 AM Gender: M Tech: Location: [facility] Ref Provider: MADAI ENRIQUE Height(Cm): 178 [...] FINDINGS: Interpretation Site: Exam was interpreted at [facility]. Left Ventricle: Mild concentric left ventricular hypertrophy. [...] Procedure Note Harley Bowser MD - 01/21/2025 [facility] [address], [address], [place] [address] P:[phone] P:[phone] Echocardiographic Report Patient Name: AZIZA LOYA O : 1945 Study Date: 01/21/2025 11:20:02 AM Gender: M Tech: Location: [facility] Ref Provider: MADAI ENRIQUE Height(Cm): 178 [...] FINDINGS: Interpretation Site: Exam was interpreted at [facility]. Left Ventricle: Mild concentric left ventricular hypertrophy. [...] regurgitation. Atrial fibrillation. Electronically Signed By: Harley Bowsre MD 01/21/2025 12:30:49 PM CDT Madai Enrique [...] tendency for uric acid stone formation. Source: easyfolio Current Interpretive Data was last revised on [...] GENERAL ORDERABLES Final Result Performing Organization Address [facility] Co de Phone Number TRAVIS BROWNLEE [address] [place] [address] * (ABNORMAL) Urinalysis, microscopic only (01/19/2025 12:03 PM CDT) WBC, ur 6-10(A) 0 - 5 /HPF RBC, ur 0-2 0 - 2 /HPF [facility] Epithelial cells, squamous, ur 1-5 0 - 5 /HPF [facility] CH Bacteria, ur Trace(A) [facility] CH Culture Reflex Comment Reflex conditions for urine culture (WBC >10) not met. [facility] Urine 01/19/2025 12:0 3 PM CDT 01/19/2025 7:25 PM CDT Ankit Pascal MD LAB URINE ORDERABLES Final Result Performing Organization Address [facility] Co de Phone Number TRAVIS BROWNLEE [phone] Department [place] [address] * XR Chest Pa Lateral [...] Brown Ennis M.D. RW T: Report ID: [id number] Reading Location: [id number] Procedure Note Brown Ennis MD - 01/18/2025 [...] Brown Ennis M.D. RW T: Report ID: [id number] Reading Location: [id number] us Ankit Pascal MD IMG XR PROCEDURES Final Res ult * (ABNORMAL) Differential, auto (01/18/2025 11:20 AM CDT) Neutrophil abs 7.11(H) 1.50 - 6.50 K/cumm Imm gran abs 0.04 0.00 - 0.10 K/cumm [facility] Lymphocyte abs 1.01 0.80 - 3.30 K/cumm [facility] Monocyte abs 0.86(H) 0.20 - 0.80 K/cumm [facility] Eosinophil abs 0.26 0.00 - 0.50 K/cumm [facility] Basophil abs 0.06 0.00 - 0.10 K/cumm [facility] Neutrophil pct 76.2 % [facility] Comment: Interpretive Data Percent cell count reference ranges are not reported, since discordance with absolute values may lead to misinterpretation of CBC data. Current Interpretive Data was last revised on 2017. Imm gran pct 0.4 % [facility] Comment: Interpretive Data Percent cell count reference ranges are not reported, since discordance with absolute values may lead to misinterpretation of CBC data. Current Interpretive Data was last revised on 2017. Lymphocyte pct 10.8 % [facility] Comment: Interpretive Data Percent cell count reference ranges are not reported, since discordance with absolute values may lead to misinterpretation of CBC data. Current Interpretive Data was last revised on 2017. Monocyte pct 9.2 % [facility] Comment: Interpretive Data Percent cell count reference ranges are not reported, since discordance with absolute values may lead to misinterpretation of CBC data. Current Interpretive Data was last revised on 2017. Eosinophil pct 2.8 % [facility] Comment: Interpretive Data Percent cell count reference ranges are not reported, since discordance with absolute values may lead to misinterpretation of CBC data. Current Interpretive Data was last revised on 2017. Basophil pct 0.6 % [facility] Comment: Interpretive Data Percent cell count reference ranges are not reported, since discordance with absolute values may lead to misinterpretation of CBC data. Current Interpretive Data was last revised on 2017. Blood 01/18/2025 11:2 0 AM CDT 01/18/2025 8:27 PM CDT us Ankit Pascal MD LAB BLOOD ORDERABLES Final Result TRA[facility] BROWNLEE [address] [place] [address] * (ABNORMAL) CBC with auto differential (01/18/2025 11:20 AM CDT) WBC 9.34 3.80 - 9.90 K/cumm Hgb 11.4(L) 13.0 - 17.5 g/dL [facility] Hct 37.5(L) 38.9 - 50.3 % [facility] Plt 284 150 - 400 K/cumm [facility] MPV 9.9 9.1 - 12.3 fL [facility] RBC 3.75(L) 4.30 - 5.80 M/cumm [facility] CH MCV 100.0(H) 81.3 - 96.4 fL [facility] CH MCH 30.4 27.1 - 33.3 pg C[facility]ER MCHC 30.4(L) 32.3 - 35.7 g/dL [facility] RDW CV 13.7 11.1 - 14.9 % [facility] RDW SD 50.4(H) 35.7 - 48.1 fL [facility] NRBC abs 0.00 0.00 - 0.01 K/cumm [facility] Blood 01/18/2025 11:2 0 AM CDT 01/18/2025 8:27 PM CDT us Ankit Pascal MD LAB BLOOD ORDERABLES Final Result Performing Organization Address City/State/[facility] Co de Phone Number TRAVIS BROWNLEE [address] [place] [address] * Colonoscopy (10/21/2024 10:56 AM CORRECTIONS IDENTIFICATION TECHNICIAN) Anatomical Region Laterality Modality Other Narrative Procedure Note Kath Shepherd MD - 10/21/2024 10:56 AM CST [facility] Patient Name: Aziza Loya Procedure Date: 10/21/2024 10:56 AM Date of : 1945 Admit Type: Outpatient Age: 79 Gender: Male Attending MD: Kath Shepherd M.D. Room: [facility] ENDOSCOPY ROOM 3 Note Status: Addendum Procedure: Colonoscopy Indications: Disease activity assessment of Crohn's disease ofthe small bowel and colon Referring MD: vIy Emmanuel Providers: Kath Shepherd M.D., Isabell Bella [...] The scope was passed under direct vision.The [facility] [id number] endoscope was introducedthrough the anus and [...] signed by Steven RAJPUT T: Report ID: [id number] Reading Location: [place] [address] Procedure Note Steven Ruano MD - 02/24/2024 [...] Steven Ruano M.D. RB T: Report ID: [id number] Reading Location: [place] [address] PROCEDURES Final Res [...] Final Result Performing Organization Address City/State/ZIP Co nm Phone Number TRAVIS [phone] Department [place] [address] from Last 3 Months or Most Recently Relevant to Health Maintenance Insurance [facility] MEDICARE MEDICARE [facility] MEDICARE [facility] MEDICARE [facility] Advance Directives For more information, please contact: [phone] * Full Code (Latest Code Status on [...] 10:45 AM 05/17/2022 5:55 PM Care Teams Catering Attendant Relationship Specialty Start Date End Date Preethi Godoy NP [address] [facility] [address] [place] [address] PCP - General Family Medicine 08/25/24 Kath Shepherd MD [address] [place] [address] Consulting Physician Gastroenterology 07/22/19 Peter Ya MD [address] [place] [address] Speech Pathologist Assistant Cardiology 07/22/19 Aziza Ledesma MD [address] [place] [address] Consulting Physician Neurology 07/22/19 Joshua Butterfield MD [address] [facility] [address] [place] [address] Consulting Physician Urology 07/03/23 Jeffery Bustillos MD [address] [facility] [address] [place] [address] Consulting Physician Cardiovascular Disease 02/06/24 Shimon Schofield MD [address] [facility] [address] [place] [address] Consulting Physician Vascular Surgery 02/06/24
--- OUTSIDE RECORDS SUMMARY | 2025-04-12 14:16 | XMS_ITS | Encounter Summary ---
Author Organization [facility] Healthcare Address [address] [place] [address] Care Team Providers Care General Lot Attendant Name Role Phone Kath Shepherd MD Unavailable [phone] Peter Ya MD Unavailable [phone] Vitaly Ledesma MD Unavailable [phone] Joshua Butterfield MD Unavailable [phone] Jeffery Bustillos MD Unavailable [phone] Shimon Schofield MD Unavailable Preethi Godoy NP Primary Care Provider [phone] Encounter Details Date Type Department Care Team (Late st Contact Info) Description 02/17/2025 Results Follow-Up [facility] Primary Care at [address] [address] Ankit Pascal MD [address] [place] [address] [address] [place] [address] Urine culture Urine, clean voided Social History Tobacco Use Types Packs/Day Years [...] on file 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 Gender Identity Not on file Sexual Orientation Not on file 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 Not on file Not on file documented as of this encounter Plan of Treatment Not on file documented as of this encounter Visit Diagnoses Not on filedocumented in this encounter Care Teams General Lot Attendant Relationship Specialty Start Date End Date Preethi Godoy NP [address] [facility] [address] [place] [address] PCP - General Family Medicine 08/25/24 Kath Shepherd MD [address] [place] [address] Consulting Physician Gastroenterology 07/22/19 Peter Ya MD [address] [place] [address] Lock Fitter Cardiology 07/22/19 Vitaly Ledesma MD [address] [place] [address] Consulting Physician Neurology 07/22/19 Joshua Butterfield MD [address] [place] [address] Consulting Physician Urology 07/03/23 Jeffery Bustillos MD [address] [facility] [address] [facility] 102 [place] [address] Consulting Physician Cardiovascular Disease 02/06/24 Shimon Schofield MD [address] [facility] [address] [place] [address] Consulting Physician Vascular Surgery 02/06/24 documented as of this encounter
--- OUTSIDE RECORDS SUMMARY | 2025-04-12 14:16 | XMS_ITS | Clinical Summary ---
Author Organization [facility] Address [address] [place] [address] Care Team Providers Care Passenger Attendant Name Role Phone Unavailable Primary Care Provider [...]
--- OUTSIDE RECORDS SUMMARY | 2025-04-12 14:16 | XMS_ITS | Encounter Summary ---
Author Organization [facility] Address [address] [place] [address] Phone Care Team Providers Care Air Director Name Role Phone John Kimbrough MD Primary Care Provider Kath Shepherd MD Unavailable [phone] Peter Ya MD Unavailable [phone] Vitaly Ledesma MD Unavailable [phone] Anayeli Lee MD Primary Care Provider Joshua Butterfield MD Unavailable Jeffery Bustillos MD Unavailable [phone] Shimon Schofield MD Unavailable Preethi Godoy NP Primary Care Provider Encounter Details Date Type Department Care Team (Late st Contact Info) Description 02/03/2020 Telephone [facility] Gastroenterology [facility] 8th [place] [address] [place] [address] Sherie Yoo, [facility] Social History Tobacco Use Types Packs/Day Years Used Date Smoking Tobacco: Former Smokeless Tobacco: Never Alcohol Use Standard Drinks/Week Comments No 0 (1 standard drink = 0.6 oz pur e alcohol) Sex and Gender Information Value Date Recorded Sex Assigned at Not on file 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 Gender Identity Not on file Sexual Orientation Not on file documented as of this encounter Plan of Treatment Not on file documented as of this encounter Visit Diagnoses Not on filedocumented in this encounter Additional Health Concerns Infection Onset Date Last Indicated Resolved Time COVID: Suspected 08/21/2021 08/21/2021 08/21/2021 11:38 AM MARKETING PROJECT COORDINATOR COVID: Suspected 11/14/2024 11/14/2024 11/14/2024 10:49 AM MARKETING PROJECT COORDINATOR COVID: Suspected 11/14/2024 11/14/2024 11/14/2024 3:33 PM MARKETING PROJECT COORDINATOR RSV, droplet 11/14/2024 11/14/2024 11/21/2024 3:07 AM MARKETING PROJECT COORDINATOR COVID: Suspected 12/30/2024 12/30/2024 12/30/2024 7:54 PM CDT documented as of this encounter Care Teams Air Director Relationship Specialty Start Date End Date John Kimbrough MD PCP - General 11/08/16 07/02/23 Anayeli Lee MD [address] [place] [address] PCP - General Family Medicine 07/03/23 08/24/24 Preethi Godoy NP [address] [address] PCP - General Family Medicine 08/25/24 Kath Shepherd MD [address] [place] [address] Consulting Physician Gastroenterology 07/22/19 Peter Ya MD [address] [place] [address] Plate Preparer Cardiology 07/22/19 Vitaly Ledesma MD [address] [place] [address] Consulting Physician Neurology 07/22/19 Joshua Butterfield MD [address] [facility] [address] [facility] [address] [place] [address] Consulting Physician Urology 07/03/23 Jeffery Bustillos MD [address] [facility] [address] [facility] 102 [place] [address] Consulting Physician Cardiovascular Disease 02/06/24 Shimon Schofield MD [address] [address] Consulting Physician Vascular Surgery 02/06/24 documented as of this encounter
--- OUTSIDE RECORDS SUMMARY | 2025-04-12 14:16 | XMS_ITS | Encounter Summary ---
Author Organization [facility] Healthcare Address [address] [place] [address] Care Team Providers Care Grief Counselor Name Role Phone Kath Shepherd MD Unavailable [phone] Peter Ya MD Unavailable [phone] Vitaly Ledesma MD Unavailable [phone] Anayeli Lee MD Primary Care Provider Joshua Butterfield MD Unavailable [phone] Jeffery Bustillos MD Unavailable [phone] Shimon Schofield MD Unavailable Preethi Godoy NP Primary Care Provider [phone] Encounter Details Date Type Department Care Team (Late st Contact Info) Description 05/17/2024 Orders Only [facility] Information Management [address] [place] [address] Scanning, Provider Social History Tobacco Use [...] on file 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 Gender Identity Not on file Sexual Orientation Not on file 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 Start 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 Job End 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 [employer] Not on file Not on file Not on file documented as of this encounter Plan of Treatment Not on file documented as of this encounter Procedures Procedure Name Priority Date/Time Associated Diagnosis Comments SCAN - RADIOLOGY/IMAGING 05/17/2024 documented in this encounter Results * SCAN - RADIOLOGY/IMAGING (05/17/2024) Anatomical Region Laterality Modality Other us Provider Scanning Final Result documented in this encounter Visit Diagnoses Not on filedocumented in this encounter Additional Health Concerns Infection Onset Date Last Indicated Resolved Time COVID: Suspected 11/14/2024 11/14/2024 11/14/2024 10:49 AM SKEIN MERCERIZING 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 COVID: Suspected 11/14/2024 11/14/2024 11/14/2024 3:33 PM SKEIN MERCERIZING 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 RSV, droplet 11/14/2024 11/14/2024 11/21/2024 3:07 AM SKEIN MERCERIZING 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 COVID: Suspected 12/30/2024 12/30/2024 12/30/2024 7:54 PM CDT documented as of this encounter Care Teams Grief Counselor Relationship Specialty Start Date End Date Anayeli Lee MD [address] [place] [address] PCP - General Family Medicine 07/03/23 08/24/24 Preethi Godoy NP [address] [facility] [address] [place] [address] PCP - General Family Medicine 08/25/24 Kath Shepherd MD [address] [place] [address] Consulting Physician Gastroenterology 07/22/19 Peter Ya MD [address] [place] [address] Medical Malpractice Paralegal Cardiology 07/22/19 Vitaly Ledesma MD [address] [place] [address] Consulting Physician Neurology 07/22/19 Joshua Butterfield MD [address] [place] [address] [address] [place] [address] Consulting Physician Urology 07/03/23 Jeffery Bustillos MD [address] [facility] [address] [place] [address] Consulting Physician Cardiovascular Disease 02/06/24 Shimon Schofield MD [address] [facility] 120 [place] [address] Consulting Physician Vascular Surgery 02/06/24 documented as of this encounter
--- OUTSIDE RECORDS SUMMARY | 2025-04-12 14:16 | XMS_ITS | Continuity of Care Document ---
Author Name [facility] Organization [facility] Care Team Providers Care Drop Wire Builder Name Role Phone [facility] Unavailable Unavailable Encounters Combined list of: 1) Encounters from Department of Veterans Affairs facilities going backup to the last 18 months, not all VA inpatient encounters are included; 2) Encounters from the Department of [facility] facilities going backup to 280 months. Location Location Details Encounter Type Encounter Number Reason For Visit Attending Provider ADM Date DC Date Status Disposition Source [facility] Outpatient Encounter [id number] [facility]
--- NOTE | 2025-04-12 15:24 | PC.NURSE ---
pt to come back later pt LWBS
--- OUTSIDE RECORDS SUMMARY | 2025-04-12 15:34 | XMS_ITS | Clinical Summary ---
Author Organization [facility] Address [address] [place] [address] Care Team Providers Care Pot Feeder Name Role Phone Kath Shepherd MD Unavailable [phone] Peter Ya MD Unavailable [phone] Aziza Ledesma MD Unavailable [phone] Joshua Butterfield MD Unavailable [phone] Jeffery Bustillos MD Unavailable [phone] Shimon Schofield MD Unavailable Preethi Godoy NP Primary Care Provider [phone] Allergies No known active allergies Medications coenzyme Q10 10 mg capsule Take 2 capsules (20 mg total) by mouth every morning Active nfsor-7-foh-ep a-dpa-fish oil 1,050-1,200 mg capsule Take 1 [...] Route Frequency Start Date End Date Status [facility] BMS-608853/placebo ([id number]) capsule 4 capsuleIndications:Crohn' s disease of both small and large intestine with other complication (HCC) 4 capsule oral 2 times daily 05/21/2022 [facility] BMS-759308/placebo ([id number]) capsule 4 capsuleIndications:Crohn' s disease of both small and large intestine with other complication (HCC) 4 capsule oral 2 times daily 06/18/2022 [facility] BMS-308469/placebo ([id number]) capsule 4 capsuleIndications:Crohn' s disease of both small and large intestine with other complication (HCC) 4 capsule oral 2 times daily 07/09/2022 [facility] BMS-727731/placebo (/[id number]) capsule 4 capsuleIndications:Crohn' s disease of both small and large intestine with other complication (HCC) 4 capsule oral 2 times daily 08/07/2022 [facility] BMS-683339/placebo ([id number]) capsule 4 capsuleIndications:Crohn' s disease of both small and large intestine with other complication (HCC) 4 capsule oral 2 times daily 09/19/2022 [facility] BMS-824168/placebo ([id number]) capsule 4 capsuleIndications:Crohn' s disease of both [...] modification Assessment & Plan (10/03/2023 1:12 PM BEEF BONER): Chronic. Due to prior peripheral arterial disease. [...] urologist Assessment & Plan (10/03/2023 1:12 PM BEEF BONER): Chronic. Continue medication care per Urology Assessment & Plan (07/03/2023 5:22 PM CDT): Follows with [facility] [place] Dr. Butterfield. Patient on finasteride and does intermittent straight catheterization Protein-calorie malnutrition, mild 07/03/2023 Overview (07/03/2023): Patient with low BMI. Less protein level was low. Monitor weight Assessment & Plan (02/06/2024 4:55 PM CDT): Patient has had borderline protein calorie malnutrition. Monitor his protein levels on labs. Encourage adequate nutrition. Avoid additional weight loss Assessment & Plan (10/03/2023 1:12 PM BEEF BONER): Chronic. BMI remains at the lower end arrange. Encouraged adequate nutrition. Monitor History of gout 07/03/2023 Assessment & Plan (02/06/2024 4:55 PM CDT): Chronic. Denies history of recent flares. Continue allopurinol for prophylaxis. Check uric acid Assessment & Plan (10/03/2023 1:12 PM BEEF BONER): Chronic. Denies any history of gout in [...] 03/14/2023 Assessment & Plan (10/03/2023 1:13 PM BEEF BONER): Chronic. May occasionally increase in size. Minimal pain. Has deferred elective repair in the past Persistent atrial fibrillation 12/04/2021 Assessment & Plan (11/23/2024 1:36 PM BEEF BONER): Rate controlled in office, continuing follow up with Cardiology. Assessment & Plan (03/01/2024 7:51 AM CDT): Stable continue metoprolol. Assessment & Plan (02/06/2024 4:55 PM CDT): Chronic. Controlled rate with metoprolol. Continue. Continue aspirin for stroke prophylaxis Assessment & Plan (10/03/2023 1:12 PM BEEF BONER): Chronic. Continue risk factor modification. Continue ASA [...] Monitor Assessment & Plan (10/03/2023 1:11 PM BEEF BONER): Chronic. Denies significant worsening. No agitation recently. [...] They denies significant agitation Cerebral amyloid angiopathy ([facility]) 02/15/2020 Assessment & Plan (02/06/2024 4:54 PM CDT): Chronic. Memory has worsened slightly in the last year. He does have some fluctuations at times. No real agitation. Target good blood pressure control. Continue aspirin for his other issues. Would be cautious with more aggressive anticoagulation given history of amyloid angiopathy Assessment & Plan (10/03/2023 1:11 PM BEEF BONER): Chronic. Denies any progression of symptoms Assessment & Plan (07/03/2023 5:18 PM CDT): Chronic. Control blood pressure and modify risk factors as able. Continue aspirin given AFib but would be cautious with stronger anticoagulants given increased bleeding risk with cerebral amyloid angiopathy Peripheral artery disease 09/10/2019 Overview (09/10/2019): Added automatically from request for surgery [id number] Assessment & Plan (09/03/2024 10:57 AM BEEF BONER): Stable lower extremity occlusive disease. Continue risk [...] duplex. Assessment & Plan (10/03/2023 1:11 PM BEEF BONER): Chronic. Denies recent claudication symptoms. Continue ASA, statin and Pletal Assessment & Plan (07/03/2023 5:22 PM CDT): Chronic. 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 Denies current sores on his feet. Follows with Podiatry in [place]. On cilostazol Iron deficiency anemia due to [...] 02/17/2019 Assessment & Plan (11/23/2024 1:35 PM BEEF BONER): BP normal in office, continuing current regimen. [...] dehydrate Assessment & Plan (10/03/2023 1:10 PM BEEF BONER): Chronic. Blood pressure controlled. Continue current prescription [...] (01/26/2019): Added automatically from request for surgery [id number] Assessment & Plan (02/06/2024 4:52 PM CDT): Chronic. Disease has been stable. Minimal symptoms. He does have to be cautious with eating too many fruits and vegetables as he notes this does cause some GI distress. He remains controlled with Skyrezi and hydroxychloroquine. He will continue Assessment & Plan (10/03/2023 1:10 PM BEEF BONER): Chronic. Symptomatically improved per patient. Continue medication and care per GI Assessment & Plan (07/03/2023 5:20 PM CDT): Chronic. Follows with Gastroenterology. On scar oz and sulfasalazine. Continue medication and care per them CAD (coronary artery disease) 12/04/2018 Assessment & Plan (09/03/2024 10:57 AM BEEF BONER): Stable continue ASA and Lasix Assessment & Plan (02/06/2024 4:51 PM CDT): Chronic. Denies chest pain. Continue risk factor modification with statin, aspirin, blood pressure control. Target LDL less than 70 Assessment & Plan (10/03/2023 1:10 PM BEEF BONER): Chronic. Denies chest pain. Follows with cardiology. [...] 12/30/2017 Assessment & Plan (08/25/2024 4:06 PM BEEF BONER): Updated labs ordered, Hemoglobin was 9 in [...] infusions Assessment & Plan (10/03/2023 1:10 PM BEEF BONER): Chronic. Follows with GI and Hematology. Has received iron infusions. Often does B12 injections Assessment & Plan (07/03/2023 5:15 PM CDT): Chronic. Follows with GI and Hematology. Received iron infusions Hypercholesterolemia 02/05/2011 Assessment & Plan (09/03/2024 10:57 AM BEEF BONER): Stable continue statin therapy. Assessment & Plan (03/01/2024 7:50 AM CDT): Stable continue statin therapy. Assessment & Plan (02/06/2024 4:53 PM CDT): Chronic. Tolerates atorvastatin. Continue. Check cholesterol level and adjust for an LDL goal of at least less than 70 with optimal less than 55 Assessment & Plan (10/03/2023 1:10 PM BEEF BONER): Chronic. Tolerates current prescription medication. Continue Assessment [...] (05/29/2021): Added automatically from request for surgery [id number] Crohn's disease with rectal bleeding 12/10/2018 07/03/2023 Overview (12/10/2018): Added automatically from request for surgery [id number] Peripheral vascular disease 02/13/2017 07/03/2023 Gastrointestinal hemorrhage 07/03/2023 Acute renal failure 07/03/20 23 Crohn's disease of colon with rectal bleeding 07/03/2023 Assessment & Plan (12/04/2021 1:34 PM CDT): Has upcoming endoscopy. Encounters Date Type Department Care Team Description 04/12/2025 Results Follow-Up [facility]ient Care at [address] [phone] Gladys Valdovinos NP Aerobic and anaerobic culture and gram stain Wound Buttocks, right, Colleen (yeast) culture Lesion Buttocks, right 04/10/2025 12:55 PM CDT - 04/10/2025 11:59 PM CDT Hospital Encounter [address] [address] Incidental lung nodule Discharge Disposition: Discharge to home or self care 04/07/2025 Results Follow-Up [facility] Primary Care at [address] [phone] Ilana Powers NP Urinalysis reflex to microscopic and culture Urine, in and out catheter, Urinalysis, microscopic only 04/06/2025 11:24 AM CDT - 04/06/2025 11:59 PM CDT Hospital Encounter [address] [address] Local skin infection Discharge Disposition: Discharge to home or self care 04/06/2025 11:00 AM CDT Office Visit [facility] Care at [address] [phone] Sandrita Daugherty NP Local skin infection (Primary Dx); Contact dermatitis due to plants, except food, unspecified contact dermatitis type 04/06/2025 10:45 AM CDT Lab [facility] Outpatient Lab at [address] [phone] 04/06/2025 10:42 AM CDT - 04/06/2025 11:59 PM CDT Hospital Encounter [address] [address] Recurrent UTI; Altered mental status, unspecified altered mental status type Discharge Disposition: Discharge to home or self care 04/04/2025 Telephone [facility] Primary Care at [address] [phone] Preethi Godoy NP Symptom Based Call 03/31/2025 Telephone [facility] Primary Care at [address] [phone] Preethi Godoy NP Medical Question/Miscellane ous 03/18/2025 12:00 PM CDT Lab [facility] Outpatient Lab at [address] [phone] 03/18/2025 11:49 AM CDT - 03/18/2025 11:59 PM CDT Hospital Encounter [address] [address] Recurrent UTI Discharge Disposition: Discharge to home or self care 03/18/2025 Results Follow-Up [facility] Primary Care at [address] [phone] Ilana Powers NP Urinalysis reflex to microscopic and culture Urine, in and out catheter, Urinalysis, microscopic only, Urine culture Urine, in and out catheter 03/18/2025 Orders Only [facility] Primary Care at [address] [phone] Ilana Powers NP Acute cystitis without hematuria (Primary Dx) 03/18/2025 Nurse Triage [facility] Primary Care at [address] [phone] Love Piña RN Recurrent UTI (Primary Dx) 03/03/2025 9:58 AM CDT - 03/03/2025 11:59 PM CDT Hospital Encounter [facility] [address] [place] [address] Amyloid myopathy (HCC) Discharge Disposition: Discharge to home or self care 02/25/2025 8:[address] [facility] Outpatient Lab at [address] [phone] Acute hemorrhagic cystitis (Primary Dx) 02/25/2025 8:36 AM CDT - 02/25/2025 11:59 PM CDT Hospital Encounter [address] [address] Acute cystitis with hematuria Discharge Disposition: Discharge to home or self care 02/21/2025 11:45 AM CDT Office Visit [facility] Primary Care at [address] [phone] Ankit Pascal MD Acute cystitis with hematuria (Primary Dx) 02/21/2025 Nurse Triage [facility] Primary Care at [address] [phone] Preethi Godoy, DONALD 02/17/2025 Results Follow-Up [facility] Primary Care at [address] [phone] Ankit Pascal MD Urine culture Urine, clean voided 02/15/2025 4:29 PM CDT - 02/15/2025 11:59 PM CDT Hospital Encounter [address] [address] Confusion Discharge Disposition: Discharge to home or self care 02/15/2025 4:15 PM CDT Office Visit [facility] Primary Care at [address] [phone] Ankit Pascal MD Acute cystitis with hematuria (Primary Dx); Confusion 02/15/2025 Nurse Triage [facility] Primary Care at [address] [phone] Preethi Godoy, DONALD 02/09/2025 Telephone [facility] Care at [address] [phone] Preethi Godoy NP Medication Request 01/28/2025 Telephone [facility] Cardiology [address] [place] [phone] Madai Enrique NP 01/28/2025 Orders Only [facility] Cardiology [address] [facility] [address] [place] [phone] Madai Enrique NP Amyloid myopathy (HCC) (Primary Dx); Mitral valve insufficiency, unspecified etiology; Incidental lung nodule 01/23/2025 Results Follow-Up [facility] Primary Care at [address] [phone] Ankit Pascal MD Urinalysis reflex to microscopic and culture Urine, Urinalysis, microscopic only 01/21/2025 11:15 AM CDT Ancillary Procedure [facility] Cardiology at [address] [place] [address] Coronary artery disease involving coronary bypass graft of [place] heart, unspecified whether angina present; Fatigue, unspecified type; Hypotension, unspecified hypotension type 01/19/2025 12:15 PM CDT Lab [facility] Outpatient Lab at [address] [phone] 01/19/2025 12:03 PM CDT - 01/19/2025 11:59 PM CDT Hospital Encounter [address] [address] Recurrent UTI Discharge Disposition: Discharge to home or self care 01/19/2025 Results Follow-Up [facility] Primary Care at [address] [phone] Ankit Pascal MD CBC with auto differential, Differential, auto 01/18/2025 11:45 AM CDT Ancillary Procedure [facility] Imaging at [address] [phone] 01/18/2025 11:30 AM CDT Lab [facility] Outpatient Lab at [address] [phone] KAYLA (generalized anxiety disorder) (Primary Dx); Benign prostatic hyperplasia with urinary retention 01/18/2025 11:20 AM CDT - 01/18/2025 11:59 PM CDT Hospital Encounter [address] [address] CAP (community acquired pneumonia) Discharge Disposition: Discharge to home or self care 01/18/2025 10:30 AM CDT Office Visit [facility] Primary Care at [address] [phone] Ankit Pascal MD Hospital discharge follow-up (Primary Dx); CAP (community acquired pneumonia); Recurrent UTI 01/18/2025 Results Follow-Up [facility] Primary Care at [address] [phone] Ankit Pascal MD XR Chest Pa Lateral 2 Views 01/11/2025 Telephone [facility] Primary Care at [address] [phone] Preethi Godoy, DONALD APRIL Questions [...] Neg Hx Relation Name Status Comments Father CT & CVA () age 76 Mother Sister [...] on file 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 2:24 AM BEEF BONER Gender Identity Not on file Sexual Orientation Not on file 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 [employer] Not on file [...] Screening Discontinued Medical Devices Implanted Type Area Net Trainer Device Identifier Shelf Expiration Date Model / Serial / Lot SecureAlert [id number] Synergy 3.5mm 24mm 144cm Radiopaque 1 Access Port Inflation Lumen - [id number] - [id number] Implanted:Qty: 1 on 03/26/2019 by Alban Santana MD at [facility] Stent SecureAlert 12/09/2020 [id number] / [id number] / [id number] Procedures Procedure Name Priority Date/Time Associated Diagnosis [...] artery disease involving coronary bypass graft of [place] heart, unspecified whether angina present Fatigue, unspecified [...] (community acquired pneumonia) COLONOSCOPY 10/21/2024 10:56 AM BEEF BONER CTA ABDOMEN PELVIS W WO CONTRAST Schedule [...] - 1.30 mg/dL Comment:Testing performed by : [facility], [address] [place] [address]., [address] Blood 04/10/2025 1:29 PM CDT 04/10/2025 1:29 PM CDT Preethi Godoy NP POINT OF CARE TEST ORDERABLES Fi nal Result SEBASTIANYUMIKO [address] [facility] Department [place] [address] * (ABNORMAL) Colleen (yeast) culture Lesion Buttocks, right (04/06/2025 11:24 AM CDT) Report Final Report: Moderate Colleen albicans (.) Comment:Testing performed by : [facility], [address] [facility], [place]., [address] Organism COLLEEN ALBICANS TRAVIS Lesion (Buttocks, right) [...] GENERAL ORDE RABLES Final Result TRAVIS BROWN[facility]E [address] [place] [address] * (ABNORMAL) Urinalysis reflex to microscopic and [...] tendency for uric acid stone formation. Source: [facility] [employer] Current Interpretive Data was last revised on [...] GENERAL ORDER MANJINDER Final Result TRAVIS [place]OWN[place]E [address] [place] [address] * (ABNORMAL) Urinalysis, microscopic only (04/06/2025 10:42 [...] 04/06/2025 8:18 PM CDT us Preethi Godoy DRYING ROOM OPERATOR LAB URINE ORDERABLES Final Resul t [facility] [address] [place] [address] * (ABNORMAL) Urinalysis reflex to [...] tendency for uric acid stone formation. Source: [facility] Current Interpretive Data was last revised [...] Reflex to microscopic UA will be performed. [facility] Urine, in and out catheter 03/18/2025 11:49 AM CDT 03/18/2025 3:22 PM CDT us Preethi Godoy NP LAB MICROBIOLOGY - GENERAL ORDER MANJINDER Final Result Performing Organization Address City/[facility]/ZIP Co de Phone Number TRAVIS [place]OWN[place]E [address] [facility] [employer] [place], [place] [id number] * (ABNORMAL) Urinalysis, microscopic only (03/18/2025 11:49 [...] 03/18/2025 3:22 PM CDT us Preethi Godoy DRYING ROOM OPERATOR LAB URINE ORDERABLES Final Resul t Performing Organization Address [facility] Co de Phone Number TRAVIS [place] [address] Department [place] [address] * (ABNORMAL) Urine culture Urine, in and out catheter (03/18/2025 11:49 AM CDT) Report Final Report: Greater than or equal to 100,000 colonies/mL of Klebsiella pneumoniae Greater than or equal to 100,000 colonies/mL of Klebsiella pneumoniae #2 (.) Comment:Testing performed by : [facility], [address] [place]., [address] Organism KLEBSIELLA PNEUMONIAE [facility] Organism KLEBSIELLA PNEUMONIAE [facility] Urine, in and out catheter 03/18/2025 11:49 AM CDT 03/18/2025 6:29 PM CDT Narrative [facility] - 03/20/2025 10:30 AM CDT Urine culture reflexed based upon urinalysis results. Testing performed by [facility] Microbiology Laboratory ([phone]) Organism Antibiotic Method Susceptibility Klebsiella pneumoniae Ampicillin [...] ORDER MANJINDER Final Result Performing Organization Address City/State/[facility] [place] Phone Number TRAVIS [phone] [address] Department [place] [address] * MRI Cardiac M&F W WO Contrast [...] signed by: Ludwig Talley M.D. Madai Enrique DRYING ROOM OPERATOR IMG MRI PROCEDURES Final Res ult [...] tendency for uric acid stone formation. Source: [facility] [employer] Current Interpretive Data was last revised on [...] GENERAL ORDERABLES Final Result Performing Organization Address City/State/[facility] Co de Phone Number [facility] [address] Department [place] [address] * (ABNORMAL) Urinalysis, microscopic only [...] URINE ORDERABLES Final Result Performing Organization Address [facility] Co de Phone Number TRAVIS [place] [address] [address] Department [place] [address] * (ABNORMAL) Urine culture Urine (02/25/2025 8:36 AM CDT) Report Final Report: Greater than or equal to 100,000 colonies/mL of Klebsiella pneumoniae Plus growth of clinically insignificant bacterial alton. (.) Comment:Testing performed by : [facility], [address] [place]., [address] Organism KLEBSIELLA PNEUMONIAE [facility] Organism PLUS GROWTH OF CLINICALLY INSIGNIFICANT ALTON. [facility] Urine 02/25/2025 8:36 AM CDT 02/25/2025 6:25 PM CDT Narrative [facility] - 02/27/2025 11:00 AM CDT Urine culture reflexed based upon urinalysis results. Testing performed by [facility] ([phone]) Organism Antibiotic Method Susceptibility Klebsiella pneumoniae Ampicillin [...] - GENERAL ORDERABLES Final Result [facility] [address] Department of [employer] [place] [address] * (ABNORMAL) POCT UA, AUTO W/O SCOPE (02/15/2025 4:30 PM CDT) Color, Urine, POC Yellow Clarity, ur, POC Cloudy(A) Clear Glucose, ur, POC Negative Negative Bilirubin, ur, POC Negative Negative Ketones, ur, POC Negative Negative Specific Cruger, POC 1.020 1.003 - 1.030 Blood, ur, [...] bacterial alton. (.) Comment:Testing performed by : [facility], [address] [place]., [address] Organism KLEBSIELLA PNEUMONIAE [facility] Organism PLUS GROWTH OF CLINICALLY INSIGNIFICANT ALTON. [facility] Urine, clean voided 02/15/2025 4:29 PM CDT 02/15/2025 10:46 PM CDT Narrative [facility] - 02/18/2025 6:27 AM CDT Testing performed by [facility] ([phone]) Organism Antibiotic Method Susceptibility Klebsiella pneumoniae Ampicillin [...] - GENERAL ORDERABLES Final Result [facility] [address] [place] [address] * Lipid panel (01/26/2025 1:34 PM CDT) Blood Historical Provider LAB BLOOD ORDERABLES Laly l Result Performing Organization Address City/[facility]/ZIP Co de Phone Number EXTERNAL LAB * TRANSTHORACIC ECHO (TTE) COMPLETE W DOPPLER/CF WO CONTRAST (01/21/2025 11:37 AM CDT) Estimated EF 50-55 % CONS SCIMAGE EF Mod BP 56 % CONS SCIMAGE Anatomical Region Laterality Modality Ultrasound 01/21/2025 11:2 0 AM CDT Narrative 01/21/2025 12:[address] [facility] Cardiology [address], [address], [place] [address] P:[phone] P:[phone] Echocardiographic Report Patient Name: AZIZA LOYA O [...] FINDINGS: Interpretation Site: Exam was interpreted at [facility]. Left Ventricle: Mild concentric left ventricular [...] Procedure Note Harley Bowser MD - 01/21/2025 [facility] Cardiology [address], [address], [place] [address] P:[phone] P:[phone] Echocardiographic Report Patient Name: AZIZA LOYA [place] : 1945 Study Date: 01/21/2025 11:20:02 AM Gender: M Tech: Location: [facility] Ref Provider: MADAI ENRIQUE Height(Cm): 178 BSA: [...] FINDINGS: Interpretation Site: Exam was interpreted at [facility]. Left Ventricle: Mild concentric left ventricular [...] tendency for uric acid stone formation. Source: [facility] [employer] Current Interpretive Data was last revised on [...] LAB MICROBIOLOGY - GENERAL ORDERABLES Final Result [facility] [address] Department [place] [address] * (ABNORMAL) Urinalysis, microscopic only (01/19/2025 12:03 PM CDT) WBC, ur 6-10(A) 0 - 5 /HPF RBC, ur 0-2 0 - 2 /HPF [facility] Epithelial cells, squamous, ur 1-5 0 - 5 /HPF [facility] Bacteria, ur Trace(A) [facility] Culture Reflex Comment Reflex conditions for urine culture (WBC >10) not met. [facility] Urine 01/19/2025 12:0 3 PM CDT 01/19/2025 7:25 PM CDT us Ankit Pascal MD LAB URINE ORDERABLES Final [facility] [address] [place] [address] * XR Chest Pa Lateral 2 Views [...] Brown Ennis M.D. RW T: Report ID: [id number] Reading Location: [id number] Procedure Note Brown Ennis MD - 01/18/2025 [...] Brown Ennis M.D. RW T: Report ID: [id number] Reading Location: [id number] Ankit Pascal MD IMG XR PROCEDURES Final [...] revised on 2017. Lymphocyte pct 10.8 % [facility] Comment: Interpretive Data Percent cell count reference ranges are not reported, since discordance with absolute values may lead to misinterpretation of CBC data. Current Interpretive Data was last revised on 2017. Monocyte pct 9.2 % [facility] Comment: Interpretive Data Percent cell count reference [...] Pascal MD LAB BLOOD ORDERABLES Final Result [facility] [id number] [place] [address] * (ABNORMAL) CBC with auto differential (01/18/2025 11:20 AM CDT) WBC 9.34 3.80 - 9.90 K/cumm Hgb 11.4(L) 13.0 - 17.5 g/dL [facility] Hct 37.5(L) 38.9 - 50.3 % [facility] Plt 284 150 - 400 K/cumm [facility] MPV 9.9 9.1 - 12.3 fL [facility] RBC 3.75(L) 4.30 - 5.80 M/cumm [facility] MCV 100.0(H) 81.3 - 96.4 fL [facility] MCH 30.4 27.1 - 33.3 pg [facility] MCHC 30.4(L) 32.3 - 35.7 g/dL [facility] RDW CV 13.7 11.1 - 14.9 % [facility] RDW SD 50.4(H) 35.7 - 48.1 fL [facility] NRBC abs 0.00 0.00 - 0.01 K/cumm [facility] Blood 01/18/2025 11:2 0 AM CDT 01/18/2025 8:27 PM CDT us Ankit Pascal MD LAB BLOOD ORDERABLES Final Result [facility] [id number] [place] [address] * Colonoscopy (10/21/2024 10:56 AM BEEF BONER) Anatomical Region Laterality Modality Other Narrative Procedure Note Kath Shepherd MD - 10/21/2024 10:56 AM CST [facility] Patient Name: Aziza Loya Procedure Date: 10/21/2024 10:56 AM Date of : 1945 Admit Type: Outpatient Age: 79 Gender: Male Attending MD: Kath Shepherd M.D. Room: [facility] ENDOSCOPY ROOM 3 Note Status: [...] scope was passed under direct vision.The PC [id number] endoscope was introducedthrough the anus and [...] signed by Steven RAJPUT T: Report ID: [id number] Reading Location: [id number] Procedure Note Steven Ruano MD - 02/24/2024 [...] Steven Ruano M.D. RB T: Report ID: [id number] Reading Location: [place] [address] PROCEDURES Final Res [...] - GEN ERAL ORDERABLES Final Result [facility] [id number] Department of [employer] [place] [address] from Last 3 Months or Most Recently Relevant to Health Maintenance Insurance [facility] MEDICARE [facility] MEDICARE [facility] MEDICARE [facility] MEDICARE [facility] Advance Directives For more information, please contact: [phone] * Full Code (Latest Code Status on [...] 10:45 AM 05/17/2022 5:55 PM Care Teams Pot Feeder Relationship Specialty Start Date End Date Preethi Godoy NP [address] [place] [address] PCP - General Family Medicine 08/25/24 Kath Shepherd MD [address] [place] [address] Consulting Physician Gastroenterology 07/22/19 Peter Ya MD [address] [place] [address] Bindery Machine Setter Cardiology 07/22/19 Aziza Ledesma MD [address] [place] [address] Consulting Physician Neurology 07/22/19 Joshua Butterfield MD [address] [facility] [address] [place] [address] Consulting Physician Urology 07/03/23 Jeffery Bustillos MD [address] [facility] [address] [place] [address] Consulting Physician Cardiovascular Disease 02/06/24 Shimon Schofield MD [address] [address] Consulting Physician Vascular Surgery 02/06/24
--- OUTSIDE RECORDS SUMMARY | 2025-04-12 15:34 | XMS_ITS | Encounter Summary ---
Author Organization [facility] Address [address] [place] [address] Phone Care Team Providers Care Us Administrative Law Judge Name Role Phone John Kimbrough MD Primary Care Provider Kath Shepherd MD Unavailable [phone] Peter Ya MD Unavailable [phone] Vitaly Ledesma MD Unavailable [phone] Anayeli Lee MD Primary Care Provider Joshua Butterfield MD Unavailable [phone] Jeffery Bustillos MD Unavailable [phone] Shimon Schofield MD Unavailable Preethi Godoy NP Primary Care Provider Encounter Details Date Type Department Care Team (Late st Contact Info) Description 01/13/2018 Orders Only [facility] ProviderOlive MD [address] [place] [address] Social History Tobacco Use Types Packs/Day Years Used Date Smoking Tobacco: Never Smokeless Tobacco: Never Alcohol Use Standard Drinks/Week Comments No 0 (1 standard drink = 0.6 oz pur e alcohol) Sex and Gender Information Value Date Recorded Sex Assigned at Not on file 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 Gender Identity Not on file Sexual Orientation [...] COVID: Suspected 08/21/2021 08/21/2021 08/21/2021 11:38 AM SUPERVISOR COREMAKER COVID: Suspected 11/14/2024 11/14/2024 11/14/2024 10:49 AM SUPERVISOR COREMAKER COVID: Suspected 11/14/2024 11/14/2024 11/14/2024 3:33 PM SUPERVISOR COREMAKER RSV, droplet 11/14/2024 11/14/2024 11/21/2024 3:07 AM SUPERVISOR COREMAKER COVID: Suspected 12/30/2024 12/30/2024 12/30/2024 7:54 PM CDT documented as of this encounter Care Teams Us Administrative Law Judge Relationship Specialty Start Date End Date John Kimbrough MD PCP - General 11/08/16 07/02/23 Anayeli Lee MD [address] [place] [address] PCP - General Family Medicine 07/03/23 08/24/24 [facility]i [facility] NP [facility] [address] [place] [address] PCP - General Family Medicine 08/25/24 Kath Shepherd MD [address] [place] [address] Consulting Physician Gastroenterology 07/22/19 Peter Ya MD [address] [place] [address] Policy Analyst Cardiology 07/22/19 Vitaly Ledesma MD [address] [place] [address] Consulting Physician Neurology 07/22/19 Joshua Butterfield MD [address] [facility] [address] [place] [address] Consulting Physician Urology 07/03/23 Jeffery Bustillos MD [address] [facility] [address] [place] [address] Consulting Physician Cardiovascular Disease 02/06/24 Shimon Schofield MD [address] [address] Consulting Physician Vascular Surgery 02/06/24 documented as of this encounter
--- OUTSIDE RECORDS SUMMARY | 2025-04-12 15:34 | XMS_ITS | Encounter Summary ---
Author Organization [facility] Address [address] [place] [address] Phone Care Team Providers Care Pool Servicer Name Role Phone John Kimbrough MD Primary Care Provider Kath Shepherd MD Unavailable [phone] Peter Ya MD Unavailable [phone] Vitaly Ledesma MD Unavailable [phone] Anayeli Lee MD Primary Care Provider Joshua Butterfield MD Unavailable [phone] Jeffery Bustillos MD Unavailable [phone] Shimon Schofield MD Unavailable Preethi Godoy NP Primary Care Provider [phone] Encounter Details Date Type Department Care Team [...] on file 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 2:24 AM BLINDMAKER Gender Identity Not on file Sexual Orientation Not on file 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 [employer] Not on [...] COVID: Suspected 08/21/2021 08/21/2021 08/21/2021 11:38 AM BLINDMAKER COVID: Suspected 11/14/2024 11/14/2024 11/14/2024 10:49 AM BLINDMAKER COVID: Suspected 11/14/2024 11/14/2024 11/14/2024 3:33 PM BLINDMAKER RSV, droplet 11/14/2024 11/14/2024 11/21/2024 3:07 AM BLINDMAKER COVID: Suspected 12/30/2024 12/30/2024 12/30/2024 7:54 PM CDT documented as of this encounter Care Teams Pool Servicer Relationship Specialty Start Date End Date John Kimbrough MD PCP - General 11/08/16 07/02/23 Anayeli Lee MD [address] [place] [address] PCP - General Family Medicine 07/03/23 08/24/24 Preethi Godoy NP [address] [address] PCP - General Family Medicine 08/25/24 Kath Shepherd MD [address] [place] [address] Consulting Physician Gastroenterology 07/22/19 Peter Ya MD [address] [place] [address] Professor Of Music Cardiology 07/22/19 Vitaly Ledesma MD [address] [place] [address] Consulting Physician Neurology 07/22/19 Joshua Butterfield MD [address] [address] Consulting Physician Urology 07/03/23 Jeffery Bustillos MD [address] [address] Consulting Physician Cardiovascular Disease 02/06/24 Shimon Schofield MD [address] [address] Consulting Physician Vascular Surgery 02/06/24 documented as of this encounter
--- OUTSIDE RECORDS SUMMARY | 2025-04-12 15:34 | XMS_ITS | Clinical Summary ---
Author Organization [facility] Address [address] [place] [address] Care Team Providers Care Ship'S Officer Name Role Phone Unavailable Primary Care Provider [...]
--- OUTSIDE RECORDS SUMMARY | 2025-04-12 15:35 | XMS_ITS | Referral Summary ---
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 [employer] Coach Name Role Phone Kath Shepherd MD Unavailable Peter Ya MD Unavailable Aziza Ledesma MD Unavailable Joshua Butterfield MD Unavailable Jeffery Bustillos MD Unavailable [phone] Shimon Schofield MD Unavailable Preethi Godoy NP Primary Care Provider Encounters Date Type Department Care Team Description 04/12/2025 Results Follow-Up [facility] at [address] [phone] Gladys Valdovinos NP Aerobic and anaerobic culture and gram stain Wound Buttocks, right, Colleen (yeast) culture Lesion Buttocks, right 04/10/2025 12:55 PM CDT - 04/10/2025 11:59 PM CDT Hospital Encounter [address] [address] Incidental lung nodule Discharge Disposition: Discharge to home or self care 04/07/2025 Results Follow-Up [facility] at [address] [phone] Ilana Powers NP Urinalysis reflex to microscopic and culture Urine, in and out catheter, Urinalysis, microscopic only 04/06/2025 11:24 AM CDT - 04/06/2025 11:59 PM CDT Hospital Encounter [address] [address] Local skin infection Discharge Disposition: Discharge to home or self care 04/06/2025 10:42 AM CDT - 04/06/2025 11:59 PM CDT Hospital Encounter [address] [address] Recurrent UTI; Altered mental status, unspecified altered mental status type Discharge Disposition: Discharge to home or self care 04/06/2025 11:00 AM CDT Office Visit [facility] at [address] [phone] Sandrita Daugherty NP Local skin infection (Primary Dx); Contact dermatitis due to plants, except food, unspecified contact dermatitis type 04/06/2025 10:45 AM CDT Lab [facility] Outpatient Lab at [address] [phone] 04/04/2025 Telephone [facility] at [address] [phone] Preethi Godoy NP Symptom Based Call 03/31/2025 Telephone [facility] at [address] [phone] Preethi Godoy NP Medical Question/Miscellane ous 03/18/2025 Results Follow-Up [facility] at [address] [phone] Ilana Powers NP Urinalysis reflex to microscopic and culture Urine, in and out catheter, Urinalysis, microscopic only, Urine culture Urine, in and out catheter 03/18/2025 Orders Only [facility] at [address] [phone] Ilana Powers NP Acute cystitis without hematuria (Primary Dx) 03/18/2025 11:49 AM CDT - 03/18/2025 11:59 PM CDT Hospital Encounter [address] [address] Recurrent UTI Discharge Disposition: Discharge to home or self care 03/18/2025 12:00 PM CDT Lab [facility] Out[facility] Lab at [address] [phone] 03/18/2025 Nurse Triage [facility] at [address] [phone] Love Piña RN Recurrent UTI (Primary Dx) 03/03/2025 9:58 AM CDT - 03/03/2025 11:59 PM CDT Hospital Encounter [facility] ([facility]) [address] [place] [address] Amyloid myopathy (HCC) Discharge Disposition: Discharge to home or self care 02/25/2025 8:36 AM CDT - 02/25/2025 11:59 PM CDT Hospital Encounter [address] [address] Acute cystitis with hematuria Discharge Disposition: Discharge to home or self care 02/25/2025 8:45 AM CDT Lab [facility] Outpatient Lab at [address] [phone] Acute hemorrhagic cystitis (Primary Dx) 02/21/2025 11:45 AM CDT Office Visit [facility] at [address] [phone] Ankit Pascal MD Acute cystitis with hematuria (Primary Dx) 02/21/2025 Nurse Triage [facility] at [address] [phone] Preethi Godoy NP 02/17/2025 Results Follow-Up [facility] at [address] [phone] Ankit Pascal MD Urine culture Urine, clean voided 02/15/2025 4:29 PM CDT - 02/15/2025 11:59 PM CDT Hospital Encounter [address] [address] Confusion Discharge Disposition: Discharge to home or self care 02/15/2025 4:15 PM CDT Office Visit [facility] at [address] [phone] Ankit Pascal MD Acute cystitis with hematuria (Primary Dx); Confusion 02/15/2025 Nurse Triage [facility] at [address] [phone] Preethi Godoy NP 02/09/2025 Telephone [facility] at [address] [phone] Preethi Godoy NP Medication Request 01/28/2025 Telephone [facility] [address] [facility] [address] [place] [phone] Madai Enrique NP 01/28/2025 Orders Only [facility] [address] [facility] [address] [place] [phone] Madai Enrique NP Amyloid myopathy (HCC) (Primary Dx); Mitral valve insufficiency, unspecified etiology; Incidental lung nodule 01/23/2025 Results Follow-Up [facility] at [address] [phone] Ankit Pascal MD Urinalysis reflex to microscopic and culture Urine, Urinalysis, microscopic only 01/21/2025 11:15 AM CDT Ancillary Procedure [facility] at [address] [place] [address] Coronary artery disease involving coronary bypass graft of makah heart, unspecified whether angina present; Fatigue, unspecified type; Hypotension, unspecified hypotension type 01/19/2025 12:03 PM CDT - 01/19/2025 11:59 PM CDT Hospital Encounter [address] [address] Recurrent UTI Discharge Disposition: Discharge to home or self care 01/19/2025 Results Follow-Up [facility] at [address] [phone] Ankit Pascal MD CBC with auto differential, Differential, auto 01/19/2025 12:15 PM CDT Lab [facility] Out[facility] Lab at [address] [phone] 01/18/2025 11:20 AM CDT - 01/18/2025 11:59 PM CDT Hospital Encounter [address] [address] CAP (community acquired pneumonia) Discharge Disposition: Discharge to home or self care 01/18/2025 Results Follow-Up [facility] at [address] [phone] Ankit Pascal MD XR Chest Pa Lateral 2 Views 01/18/2025 11:30 AM CDT Lab [facility] Out[facility] Lab at [address] [phone] KAYLA (generalized anxiety disorder) (Primary Dx); Benign prostatic hyperplasia with urinary retention 01/18/2025 11:45 AM CDT Ancillary Procedure [facility] Imaging at [address] [phone] 01/18/2025 10:30 AM CDT Office Visit [facility] at [address] [phone] Ankit Pascal MD Hospital discharge follow-up (Primary Dx); CAP (community acquired pneumonia); Recurrent UTI 01/11/2025 Telephone [facility] at [address] [phone] Preethi Godoy NP APRIL Questions from Last 3 Months Allergies No known active allergies Medications coenzyme Q10 10 mg capsule Take 2 capsules (20 mg total) by mouth every morning Active eshom-4-ibj-ep a-dpa-fish oil 1,050-1,200 mg capsule Take 1 [...] Route Frequency Start Date End Date Status [facility] BMS-960065/placebo (/[id number]) capsule 4 capsuleIndications:Crohn' s disease of both small and large intestine with other complication (HCC) 4 capsule oral 2 times daily 05/21/2022 Active [facility] BMS-488325/placebo (/[id number]) capsule 4 capsuleIndications:Crohn' s disease of both small and large intestine with other complication (HCC) 4 capsule oral 2 times daily 06/18/2022 Active [facility] BMS-527583/placebo (/[id number]) capsule 4 capsuleIndications:Crohn' s disease of both small and large intestine with other complication (HCC) 4 capsule oral 2 times daily 07/09/2022 Active [facility] BMS-134324/placebo (/[id number]) capsule 4 capsuleIndications:Crohn' s disease of both small and large intestine with other complication (HCC) 4 capsule oral 2 times daily 08/07/2022 Active [facility] BMS-659348/placebo (/[id number]) capsule 4 capsuleIndications:Crohn' s disease of both small and large intestine with other complication (HCC) 4 capsule oral 2 times daily 09/19/2022 Active [facility] BMS-482153/placebo (/[id number]) capsule 4 capsuleIndications:Crohn' s disease of both [...] modification Assessment & Plan (10/03/2023 1:12 PM [employer]): Chronic. Due to prior peripheral arterial disease. [...] urologist Assessment & Plan (10/03/2023 1:12 PM [employer]): Chronic. Continue medication care per Urology Assessment [...] loss Assessment & Plan (10/03/2023 1:12 PM [employer]): Chronic. BMI remains at the lower end arrange. Encouraged adequate nutrition. Monitor History of gout 07/03/2023 Assessment & Plan (02/06/2024 4:55 PM CDT): Chronic. Denies history of recent flares. Continue allopurinol for prophylaxis. Check uric acid Assessment & Plan (10/03/2023 1:12 PM [employer]): Chronic. Denies any history of gout in [...] 03/14/2023 Assessment & Plan (10/03/2023 1:13 PM [employer]): Chronic. May occasionally increase in size. Minimal pain. Has deferred elective repair in the past Persistent atrial fibrillation 12/04/2021 Assessment & Plan (11/23/2024 1:36 PM [employer]): Rate controlled in office, continuing follow up with Cardiology. Assessment & Plan (03/01/2024 7:51 AM CDT): Stable continue metoprolol. Assessment & Plan (02/06/2024 4:55 PM CDT): Chronic. Controlled rate with metoprolol. Continue. Continue aspirin for stroke prophylaxis Assessment & Plan (10/03/2023 1:12 PM [employer]): Chronic. Continue risk factor modification. Continue ASA [...] Monitor Assessment & Plan (10/03/2023 1:11 PM [employer]): Chronic. Denies significant worsening. No agitation recently. [...] They denies significant agitation Cerebral amyloid angiopathy ([facility]) 02/15/2020 Assessment & Plan (02/06/2024 4:54 PM CDT): Chronic. Memory has worsened slightly in the last year. He does have some fluctuations at times. No real agitation. Target good blood pressure control. Continue aspirin for his other issues. Would be cautious with more aggressive anticoagulation given history of amyloid angiopathy Assessment & Plan (10/03/2023 1:11 PM [employer]): Chronic. Denies any progression of symptoms Assessment & Plan (07/03/2023 5:18 PM CDT): Chronic. Control blood pressure and modify risk factors as able. Continue aspirin given AFib but would be cautious with stronger anticoagulants given increased bleeding risk with cerebral amyloid angiopathy Peripheral artery disease 09/10/2019 Overview (09/10/2019): Added automatically from request for surgery [id number] Assessment & Plan (09/03/2024 10:57 AM [employer]): Stable lower extremity occlusive disease. Continue risk [...] duplex. Assessment & Plan (10/03/2023 1:11 PM [employer]): Chronic. Denies recent claudication symptoms. Continue ASA, statin and Pletal Assessment & Plan (07/03/2023 5:22 PM CDT): Chronic. 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 Denies current sores on his feet. Follows with Podiatry in [place]. On cilostazol Iron deficiency anemia due to [...] 02/17/2019 Assessment & Plan (11/23/2024 1:35 PM [employer]): BP normal in office, continuing current regimen. [...] dehydrate Assessment & Plan (10/03/2023 1:10 PM [employer]): Chronic. Blood pressure controlled. Continue current prescription [...] (01/26/2019): Added automatically from request for surgery [id number] Assessment & Plan (02/06/2024 4:52 PM CDT): Chronic. Disease has been stable. Minimal symptoms. He does have to be cautious with eating too many fruits and vegetables as he notes this does cause some GI distress. He remains controlled with Skyrezi and hydroxychloroquine. He will continue Assessment & Plan (10/03/2023 1:10 PM [employer]): Chronic. Symptomatically improved per patient. Continue medication and care per GI Assessment & Plan (07/03/2023 5:20 PM CDT): Chronic. Follows with Gastroenterology. On scar oz and sulfasalazine. Continue medication and care per them CAD (coronary artery disease) 12/04/2018 Assessment & Plan (09/03/2024 10:57 AM [employer]): Stable continue ASA and Lasix Assessment & Plan (02/06/2024 4:51 PM CDT): Chronic. Denies chest pain. Continue risk factor modification with statin, aspirin, blood pressure control. Target LDL less than 70 Assessment & Plan (10/03/2023 1:10 PM [employer]): Chronic. Denies chest pain. Follows with cardiology. [...] 12/30/2017 Assessment & Plan (08/25/2024 4:06 PM [employer]): Updated labs ordered, Hemoglobin was 9 in [...] infusions Assessment & Plan (10/03/2023 1:10 PM [employer]): Chronic. Follows with GI and Hematology. Has received iron infusions. Often does B12 injections Assessment & Plan (07/03/2023 5:15 PM CDT): Chronic. Follows with GI and Hematology. Received iron infusions Hypercholesterolemia 02/05/2011 Assessment & Plan (09/03/2024 10:57 AM [employer]): Stable continue statin therapy. Assessment & Plan (03/01/2024 7:50 AM CDT): Stable continue statin therapy. Assessment & Plan (02/06/2024 4:53 PM CDT): Chronic. Tolerates atorvastatin. Continue. Check cholesterol level and adjust for an LDL goal of at least less than 70 with optimal less than 55 Assessment & Plan (10/03/2023 1:10 PM [employer]): Chronic. Tolerates current prescription medication. 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 [employer] Not on file Not on file Not [...] on file Medical Devices Implanted Type Area Concrete Float Maker Device Identifier Shelf Expiration Date Model / Serial / Lot [employer] Araceli [id number] Synergy 3.5mm 24mm 144cm Radiopaque 1 Access Port Inflation Lumen - [id number] - [id number] Implanted:Qty: 1 on 03/26/2019 by Alban Santana MD at [facility] Stent [employer] Araceli 12/09/2020 [id number] / [id number] / [id number] Procedures Procedure Name Priority Date/Time Associated Diagnosis [...] artery disease involving coronary bypass graft of makah heart, unspecified whether angina present Fatigue, unspecified [...] (community acquired pneumonia) COLONOSCOPY 10/21/2024 10:56 AM [employer] CTA ABDOMEN PELVIS W WO CONTRAST Schedule [...] 1.30 mg/dL Comment:Testing performed by : [facility], [address] [place] [address], [place]., [address] Blood 04/10/2025 1:29 PM CDT 04/10/2025 1:29 PM CDT Preethi Godoy NP POINT OF CARE TEST ORDERABLES Fi nal Result [facility] [address] [facility] Department [place] [address] * (ABNORMAL) Colleen (yeast) culture Lesion Buttocks, right (04/06/2025 11:24 AM CDT) Report Final Report: Moderate Colleen albicans (.) Comment:Testing performed by : [facility], [address] [place]., [address] Organism [facility] Lesion (Buttocks, right) 04/06/2025 11:24 AM CDT 04/06/2025 10:12 PM CDT Narrative [facility] - 04/12/2025 6:56 AM CDT Interpretation data: This culture is NOT intended for the detection of filamentous fungi, endemic mycosis, or Cryptococcus. If detected, yeast will be reported and identified. Routine susceptibility is not performed, but if required, please contact the Microbiology Laboratory at . Sandrita Daugherty NP LAB MICROBIOLOGY - GENERAL HILARIO JULIAN Final Result [facility] [address] Department [place] [address] * (ABNORMAL) Urinalysis reflex to microscopic and [...] for uric acid stone formation. Source: [employer] Current Interpretive Data was last revised on [...] Reflex to microscopic UA will be performed. [facility] Urine, in and out catheter 04/06/2025 10:42 AM CDT 04/06/2025 8:18 PM CDT us Preethi Godoy NP LAB MICROBIOLOGY - GENERAL ORDER MANJINDER Final Result Performing Organization Address [facility] de Phone Number [facility] [address] [address] [place] [address] * (ABNORMAL) Urinalysis, microscopic only (04/06/2025 10:42 AM CDT) WBC, ur 6-10(A) 0 - 5 /HPF RBC, ur 0-2 0 - 2 /HPF [facility] Epithelial cells, squamous, ur 1-5 0 - 5 /HPF [facility] Bacteria, ur 1+(A) [facility] Culture Reflex Comment Reflex conditions for urine culture (WBC >10) not met. [facility] Urine, in and out catheter 04/06/2025 10:42 AM CDT 04/06/2025 8:18 PM CDT us Preethi Godoy NP LAB URINE ORDERABLES Final Resul t Performing Organization Address [facility] de Phone Number [facility] [address] [address] [place] [address] * (ABNORMAL) Urinalysis reflex to microscopic and culture Urine, in and out catheter (03/18/2025 11:49 AM CDT) Color, ur Yellow Yellow Clarity, ur Turbid(A) Clear [facility] Specific gravity, ur 1.014 1.003 - 1.030 CERNER pH, urine 6.0 [facility] Comment: Interpretive Data U rine pH is affected by diet, medications, systemic acid-base disturbances, and renal tubular function. pH may affect urinary stone formation. For example, urine pH below 6.0 may help reduce the tendency for calcium phosphate stones and pH greater than 6.0 may reduce the tendency for uric acid stone formation. Source: [facility] [employer] Current Interpretive Data was last revised on [...] ORDER MANJINDER Final Result Performing Organization Address [facility] de Phone Number [facility] BROWNLEE [address] [place] [address] * (ABNORMAL) Urinalysis, microscopic only (03/18/2025 11:49 AM CDT) WBC, ur >50(A) 0 - 5 /HPF RBC, ur 0-2 0 - 2 /HPF C[facility] Epithelial cells, squamous, ur 1-5 0 - 5 /HPF C[facility] Bacteria, ur 2+(A) [facility] Mucous, ur Present(A) [facility] Culture Reflex Comment Reflex to urine culture will be performed. [facility] Urine, in and out catheter 03/18/2025 11:49 AM CDT 03/18/2025 3:22 PM CDT us Preethi Godoy NP LAB URINE ORDERABLES Final Resul t Performing Organization Address [facility] Co de Phone Number [facility] BROWNLEE [address] [address] [facility] [employer] [address] * (ABNORMAL) Urine culture Urine, in and out catheter (03/18/2025 11:49 AM CDT) Report Final Report: Greater than or equal to 100,000 colonies/mL of Klebsiella pneumoniae Greater than or equal to 100,000 colonies/mL of Klebsiella pneumoniae #2 (.) Comment:Testing performed by : [facility], [address] [place]., [address] Organism KLEBSIELLA PNEUMONIAE TRAVIS Organism KLEBSIELLA PNEUMONIAE TRAVIS Urine, in and out catheter 03/18/2025 11:49 AM CDT 03/18/2025 6:29 PM CDT Narrative [facility] - 03/20/2025 10:30 AM CDT Urine culture reflexed based upon urinalysis results. Testing performed by [facility] Laboratory ([phone]) Organism Antibiotic Method Susceptibility Klebsiella pneumoniae Ampicillin [...] GENERAL ORDER MANJINDER Final Result [facility] BROWNLEE [address] Department [place] [address] * MRI Cardiac M&F W WO Contrast [...] for uric acid stone formation. Source: [employer] Current Interpretive Data was last revised on [...] GENERAL ORDERABLES Final Result Performing Organization Address [facility] Co de Phone Number TRAVIS BROWNLEE [address] [address] [facility] [place] [address] * (ABNORMAL) Urinalysis, microscopic only (02/25/2025 8:36 [...] URINE ORDERABLES Final Result Performing Organization Address [facility] de Phone Number TRAVIS BROWNLEE [address] [address] [place] [address] * (ABNORMAL) Urine culture Urine (02/25/2025 8:36 AM CDT) Report Final Report: Greater than or equal to 100,000 colonies/mL of Klebsiella pneumoniae Plus growth of clinically insignificant bacterial alton. (.) Comment:Testing performed by : [facility], [address] [facility]., [address] Organism KLEBSIELLA PNEUMONIAE [facility] Organism PLUS GROWTH OF CLINICALLY INSIGNIFICANT ALTON. CERNER Urine 02/25/2025 8:36 AM CDT 02/25/2025 6:25 PM CDT Narrative [facility] - 02/27/2025 11:00 AM CDT Urine culture reflexed based upon urinalysis results. Testing performed by [facility] ([phone]) Organism Antibiotic Method Susceptibility Klebsiella pneumoniae Ampicillin [...] - GENERAL ORDERABLES Final Result [facility]OWN[facility] [address] [address] Department [place] [address] * (ABNORMAL) POCT UA, AUTO W/O SCOPE (02/15/2025 4:30 PM CDT) Color, Urine, POC Yellow Clarity, ur, POC Cloudy(A) Clear Glucose, ur, POC Negative Negative Bilirubin, ur, POC Negative Negative Ketones, ur, POC Negative Negative Specific [place], POC 1.020 1.003 - 1.030 Blood, ur, [...] bacterial alton. (.) Comment:Testing performed by : [facility], [address] [facility]., [address] Organism KLEBSIELLA PNEUMONIAE [facility] BROWN[facility]E Organism PLUS GROWTH OF CLINICALLY INSIGNIFICANT ALTON. TRAVIS Urine, clean voided 02/15/2025 4:29 PM CDT 02/15/2025 10:46 PM CDT Narrative TRAVIS BROWNLEE - 02/18/2025 6:27 AM CDT Testing performed by [facility] ([phone]) Organism Antibiotic Method Susceptibility Klebsiella pneumoniae Ampicillin [...] LAB MICROBIOLOGY - GENERAL ORDERABLES Final Result [facility] [address] [address] Department [place] [address] * Lipid panel (01/26/2025 1:34 PM CDT) Blood Historical Provider LAB BLOOD ORDERABLES Laly l Result EXTERNAL LAB * TRANSTHORACIC ECHO (TTE) COMPLETE W DOPPLER/CF WO CONTRAST (01/21/2025 11:37 AM CDT) Estimated EF 50-55 % CONS SCIMAGE EF Mod BP 56 % CONS SCIMAGE Anatomical Region Laterality Modality Ultrasound 01/21/2025 11:2 0 AM CDT Narrative 01/21/2025 12:31 PM CDT [facility] [address], [address], [place] [address] P:[phone] P:[phone] Echocardiographic Report Patient Name: AZIZA LOYA O : 1945 Study Date: 01/21/2025 11:20:02 AM Gender: M Tech: Location: [facility] Ref Provider: MADAI ENRIQUE Height(Cm): 178 BSA: [...] FINDINGS: Interpretation Site: Exam was interpreted at [facility]. Left Ventricle: Mild concentric left ventricular hypertrophy. [...] Procedure Note Harley Bowser MD - 01/21/2025 [facility] Card[facility] [address], [address], [place] [address] P:[phone] P:[phone] Echocardiographic Report Patient Name: AZIZA LOYA O : 1945 Study Date: 01/21/2025 11:20:02 AM Gender: M Tech: Location: [facility] Ref Provider: MADAI ENRIQUE Height(Cm): 178 BSA: [...] FINDINGS: Interpretation Site: Exam was interpreted at [facility]. Left Ventricle: Mild concentric left ventricular hypertrophy. [...] tendency for uric acid stone formation. Source: [place] Current Interpretive Data was last revised on [...] GENERAL ORDERABLES Final Result Performing Organization Address [facility] Co de Phone Number [facility] [place]E [address] Department [place] [address] * (ABNORMAL) Urinalysis, microscopic only (01/19/2025 12:03 PM CDT) WBC, ur 6-10(A) 0 - 5 /HPF RBC, ur 0-2 0 - 2 /HPF [facility] Epithelial cells, squamous, ur 1-5 0 - 5 /HPF [facility] CH Bacteria, ur Trace(A) [facility] CH Culture Reflex Comment Reflex conditions for urine culture (WBC >10) not met. [facility] Urine 01/19/2025 12:0 3 PM CDT 01/19/2025 7:25 PM CDT Ankit Pascal MD LAB URINE ORDERABLES Final Result Performing Organization Address [facility] Co de Phone Number [place] [place] [address] Department [place] [address] * XR Chest Pa Lateral [...] Brown Ennis M.D. RW T: Report ID: [id number] Reading Location: [id number] Procedure Note Brown Ennis MD - 01/18/2025 [...] Brown Ennis M.D. RW T: Report ID: [id number] Reading Location: [id number] us Ankit Pascal MD IMG XR PROCEDURES Final Res ult * (ABNORMAL) Differential, auto (01/18/2025 11:20 AM CDT) Neutrophil abs 7.11(H) 1.50 - 6.50 K/cumm Imm gran abs 0.04 0.00 - 0.10 K/cumm [facility] Lymphocyte abs 1.01 0.80 - 3.30 K/cumm [facility] Monocyte abs 0.86(H) 0.20 - 0.80 K/cumm [facility] Eosinophil abs 0.26 0.00 - 0.50 K/cumm [facility] Basophil abs 0.06 0.00 - 0.10 K/cumm [facility] Neutrophil pct 76.2 % [facility] Comment: Interpretive Data Percent cell count reference ranges are not reported, since discordance with absolute values may lead to misinterpretation of CBC data. Current Interpretive Data was last revised on 2017. Imm gran pct 0.4 % [facility] Comment: Interpretive Data Percent cell count reference ranges are not reported, since discordance with absolute values may lead to misinterpretation of CBC data. Current Interpretive Data was last revised on 2017. Lymphocyte pct 10.8 % [facility] Comment: Interpretive Data Percent cell count reference ranges are not reported, since discordance with absolute values may lead to misinterpretation of CBC data. Current Interpretive Data was last revised on 2017. Monocyte pct 9.2 % [facility] Comment: Interpretive Data Percent cell count reference ranges are not reported, since discordance with absolute values may lead to misinterpretation of CBC data. Current Interpretive Data was last revised on 2017. Eosinophil pct 2.8 % [facility] Comment: Interpretive Data Percent cell count reference ranges are not reported, since discordance with absolute values may lead to misinterpretation of CBC data. Current Interpretive Data was last revised on 2017. Basophil pct 0.6 % [facility] Comment: Interpretive Data Percent cell count reference ranges are not reported, since discordance with absolute values may lead to misinterpretation of CBC data. Current Interpretive Data was last revised on 2017. Blood 01/18/2025 11:2 0 AM CDT 01/18/2025 8:27 PM CDT us Ankit Pascal MD LAB BLOOD ORDERABLES Final Result [facility] [id number] Department [place] [address] * (ABNORMAL) CBC with auto differential (01/18/2025 11:20 AM CDT) WBC 9.34 3.80 - 9.90 K/cumm Hgb 11.4(L) 13.0 - 17.5 g/dL [facility] Hct 37.5(L) 38.9 - 50.3 % [facility] Plt 284 150 - 400 K/cumm [facility] MPV 9.9 9.1 - 12.[address] [facility] RBC 3.75(L) 4.30 - 5.80 M/cumm [facility] MCV 100.0(H) 81.3 - 96.4 fL [facility] MCH 30.4 27.1 - 33.3 pg [facility] MCHC 30.4(L) 32.3 - 35.7 g/dL [facility] RDW CV 13.7 11.1 - 14.9 % [facility] RDW SD 50.4(H) 35.7 - 48.1 fL [facility] NRBC abs 0.00 0.00 - 0.01 K/cumm [facility] Blood 01/18/2025 11:2 0 AM CDT 01/18/2025 8:27 PM CDT us Ankit Pascal MD LAB BLOOD ORDERABLES Final Result Performing Organization Address City/State/[facility] Co de Phone Number TRAVIS BROWNLEE [address] Department [place] [address] * Colonoscopy (10/21/2024 10:56 AM CONTRACTOR FIELD HAULING) Anatomical Region Laterality Modality Other Narrative Procedure [...] The scope was passed under direct vision.The [facility] [id number] endoscope was introducedthrough the anus and [...] signed by Steven RAJPUT T: Report ID: [id number] Reading Location: [place] [address] Procedure Note Steven Ruano MD - 02/24/2024 [...] Steven Ruano M.D. RB T: Report ID: [id number] Reading Location: [place] [address] PROCEDURES Final Res [...] Final Result Performing Organization Address City/State/ZIP [place] Phone Number TRAVIS [phone] Department [place] [address] from Last 3 Months or Most Recently Relevant to Health Maintenance Insurance [facility] MEDICARE MEDICARE [facility] MEDICARE [facility] MEDICARE [facility] Advance Directives For more information, please contact: [phone] * Full Code (Latest Code Status on [...] 10:45 AM 05/17/2022 5:55 PM Care Teams Head Boys Golf Coach Relationship Specialty Start Date End Date Preethi Godoy NP [address] [facility] 130 [place] [address] PCP - General Family Medicine 08/25/24 Kath Shepherd MD [address] [place] [address] Consulting Physician Gastroenterology 07/22/19 Peter Ya MD [address] [place] [address] Delivery Driver/Customer Service Cardiology 07/22/19 Aziza Ledesma MD [address] [place] [address] Consulting Physician Neurology 07/22/19 Joshua Butterfield MD [address] [facility] 200 [place] [address] Consulting Physician Urology 07/03/23 Jeffery Bustillos MD [address] [facility] 102 [place] [address] Consulting Physician Cardiovascular Disease 02/06/24 Shimon Schofield MD [address] [facility] [address] [place] [address] Consulting Physician Vascular Surgery 02/06/24
--- OUTSIDE RECORDS SUMMARY | 2025-04-12 15:35 | XMS_ITS | Encounter Summary ---
Author Organization [facility] Healthcare Address [address] [place] [address] Care Team Providers Care Grill Chef Name Role Phone Kath Shepherd MD Unavailable [phone] Peter Ya MD Unavailable [phone] Vitaly Ledesma MD Unavailable [phone] Joshua Butterfield MD Unavailable [phone] Jeffery Bustillos MD Unavailable [phone] Shimon Schofield MD Unavailable Preethi Godoy NP Primary Care Provider [phone] Encounter Details Date Type Department Care Team (Late st Contact Info) Description 04/12/2025 Results Follow-Up 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 [employer] Not on [...] on filedocumented in this encounter Care Teams Grill Chef Relationship Specialty Start Date End Date Preethi Godoy NP 2 [facility] 130 [place] [address] PCP - General Family Medicine 08/25/24 Kath Shepherd MD [address] [place] [address] Consulting Physician Gastroenterology 07/22/19 Peter Ya MD [address] [place] [address] Outreach Team Member Cardiology 07/22/19 Vitaly Ledesma MD [address] [place] [address] Consulting Physician Neurology 07/22/19 Joshua Butterfield MD [address] [facility] 200 [place] [address] Consulting Physician Urology 07/03/23 Jeffery Bustillos MD [address] [facility] 102 [place] [address] Consulting Physician Cardiovascular Disease 02/06/24 Shimon Schofield MD [address] [facility] 120 [place] [address] Consulting Physician Vascular Surgery 02/06/24 documented as of this encounter
--- OUTSIDE RECORDS SUMMARY | 2025-04-12 15:35 | XMS_ITS | Encounter Summary ---
Author Organization [facility] Address [address] [place] [address] Phone Care Team Providers Care Callisthenics Instructor Name Role Phone John Kimbrough MD Primary Care Provider Kath Shepherd MD Unavailable [phone] Peter Ya MD Unavailable [phone] Vitaly Ledesma MD Unavailable [phone] Anayeli Lee MD Primary Care Provider Joshua Butterfield MD Unavailable Jeffery Bustillos MD Unavailable [phone] Shimon Schofield MD Unavailable Preethi Godoy NP Primary Care Provider Encounter Details Date Type Department Care Team (Late st Contact Info) Description 08/21/2021 Telephone [facility] Oncology [address] [facility] [address] [place] [id number] Maribel Shore CPhT Social History Tobacco Use [...] on file 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: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 Gender Identity Not on file Sexual Orientation Not on file 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 Not on file Not on file documented as of this encounter Plan of Treatment Not on file documented as of this encounter Visit Diagnoses Not on filedocumented in this encounter Additional Health Concerns Infection Onset Date Last Indicated Resolved Time COVID: Suspected 08/21/2021 08/21/2021 08/21/2021 11:38 AM CARVING 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 COVID: Suspected 11/14/2024 11/14/2024 11/14/2024 10:49 AM CARVING 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 COVID: Suspected 11/14/2024 11/14/2024 11/14/2024 3:33 PM CARVING 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 RSV, droplet 11/14/2024 11/14/2024 11/21/2024 3:07 AM CARVING 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 COVID: Suspected 12/30/2024 12/30/2024 12/30/2024 7:54 PM CDT documented as of this encounter Care Teams Callisthenics Instructor Relationship Specialty Start Date End Date John Kimbrough MD PCP - General 11/08/16 07/02/23 Anayeli Lee MD [address] [place] [address] PCP - General Family Medicine 07/03/23 08/24/24 Preethi Godoy NP [address] [address] PCP - General Family Medicine 08/25/24 Kath Shepherd MD [address] [place] [address] Consulting Physician Gastroenterology 07/22/19 Peter Ya MD [address] [place] [address] Torsion Spring Coiling Machine Setter Cardiology 07/22/19 Vitaly Ledesma MD [address] [place] [address] Consulting Physician Neurology 07/22/19 Joshua Butterfield MD [address] [facility] [address] [place], [place] [address] Consulting Physician Urology 07/03/23 Jeffery Bustillos MD [address] [facility] 102 [place] [address] Consulting Physician Cardiovascular Disease 02/06/24 Shimon Schofield MD [address] [address] Consulting Physician Vascular Surgery 02/06/24 documented as of this encounter
--- OUTSIDE RECORDS SUMMARY | 2025-04-12 15:35 | XMS_ITS | Encounter Summary ---
Author Organization [facility] Address [address] [place] [address] Care Team Providers Care Sanitarian Inspector Name Role Phone Kath Shepherd MD Unavailable [phone] Peter Ya MD Unavailable [phone] Vitaly Ledesma MD Unavailable [phone] Joshua Butterfield MD Unavailable [phone] Jeffery Bustillos MD Unavailable [phone] Shimon Schofield MD Unavailable Preethi Godoy NP Primary Care Provider [phone] Reason for Visit * MRI/CAT/PET Scan (Routine) - Closed Specialty Diagnoses / Procedures Referred By Contac t Referred To Contact Diagnoses Incidental lung nodule Procedures CT Chest WO Contrast CT Chest W Contrast Preethi Godoy, DONALD [address] [facility] 130 [place] [address] Phone: tel: fax: External Order Referral ID Status Reason Start Date Expiration Date Visits Re quested Visits Authorized [id number] Closed 03/17/2025 04/16/2026 1 1 Encounter Details Date Type Department Care Team (Latest Contact Info) Description 04/10/2025 12:55 PM CDT - 04/10/2025 11:59 PM CDT Hospital Encounter 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 Not on file Not [...] for 10 days 22 g 04/06/2025 5 gthnk-5-enh-epa-d pa-fish oil 1,050-1,200 mg capsule Take 1 [...] 1.30 mg/dL Comment:Testing performed by : [facility], [address] [place] [address]., [address] Blood 04/10/2025 1:29 PM CDT 04/10/2025 1:29 PM CDT Preethi Godoy NP POINT OF CARE TEST ORDERABLES Fi nal Result TRAVIS [address] [facility] Department [place] [address] documented in this encounter Visit Diagnoses Diagnosis Incidental lung nodule Other diseases of lung, not elsewhere classified documented in this encounter Care Teams Sanitarian Inspector Relationship Specialty Start Date End Date Preethi Godoy NP 212 [facility] 130 [place], [place] [id number] PCP - General Family Medicine 08/25/24 Kath Shepherd MD [address] [place] [address] Consulting Physician Gastroenterology 07/22/19 Peter Ya MD [address] [place] [address] Research And Development Researcher Cardiology 07/22/19 Vitaly Ledesma MD [address] [place] [address] Consulting Physician Neurology 07/22/19 Joshua Butterfield MD [address] [facility] 200 [place] [address] Consulting Physician Urology 07/03/23 Jeffery Bustillos MD [address] [facility] 102 [place] [address] Consulting Physician Cardiovascular Disease 02/06/24 Shimon Schofield MD 4600 [facility] 120 [place] [address] Consulting Physician Vascular Surgery 02/06/24 documented as of this encounter
--- OUTSIDE RECORDS SUMMARY | 2025-04-12 15:35 | XMS_ITS | Encounter Summary ---
Author Organization [facility] Healthcare Address [address] [place] [address] Care Team Providers Care Pattern Mechanic Name Role Phone Kath Shepherd MD Unavailable [phone] Peter Ya MD Unavailable [phone] Vitaly Ledesma MD Unavailable [phone] Joshua Butterfield MD Unavailable [phone] Jeffery Bustillos MD Unavailable [phone] Shimon Schofield MD Unavailable Preethi Godoy NP Primary Care Provider [phone] Reason for Visit * Reason Onset Date Comments UA results 04/07/2025 Encounter Details Date Type Department Care Team (Late st Contact Info) Description 04/07/2025 Results Follow-Up [facility] Medical Group Primary Care at [address] [address] Ilana Powers NP [address] [place] [address] [address] [place] [address] Urinalysis reflex to microscopic and [...] on file 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 Gender Identity Not on file Sexual Orientation Not on file 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 Not on file Not [...] 1:56 PM CDT Attempted to contact Vitaly daneglo on to call [phone] Regarding: UA Please relay: Please notify patient/ [...] on filedocumented in this encounter Care Teams Pattern Mechanic Relationship Specialty Start Date End Date Preethi Godoy NP 2[address] [facility] 130 [place] [address] PCP - General Family Medicine 08/25/24 Kath Shepherd MD [address] [place] [address] Consulting Physician Gastroenterology 07/22/19 Peter Ya MD [address] [place] [address] Crop Insurance Claims Adjuster Cardiology 07/22/19 Vitaly Ledesma MD [address] [place] [address] Consulting Physician Neurology 07/22/19 Joshua Butterfield MD [address] [facility] 162 [facility] 200 [place] [address] Consulting Physician Urology 07/03/23 Jeffery Bustillos MD [address] [address] Consulting Physician Cardiovascular Disease 02/06/24 Shimon Schofield MD [address] [address] Consulting Physician Vascular Surgery 02/06/24 documented as of this encounter
--- OUTSIDE RECORDS SUMMARY | 2025-04-12 15:35 | XMS_ITS | Encounter Summary ---
Author Organization [facility] Healthcare Address [address] [place] [address] Care Team Providers Care Ambulance Mechanic Name Role Phone Kath Shepherd MD Unavailable [phone] Peter Ya MD Unavailable [phone] Vitaly Ledesma MD Unavailable [phone] Anayeli Lee MD Primary Care Provider Joshua Butterfield MD Unavailable [phone] Jeffery Bustillos MD Unavailable [phone] Shimon Schofield MD Unavailable Preethi Godoy NP Primary Care Provider [phone] Encounter Details Date Type Department Care Team (Late st Contact Info) Description 07/07/2024 Orders Only [facility] Health Information Management [address] [place] [address] Scanning, Provider Social History Tobacco Use [...] on file 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 2: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 Gender Identity Not on file Sexual Orientation Not on file 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 [employer] Not on file [...] COVID: Suspected 11/14/2024 11/14/2024 11/14/2024 10:49 AM EQUIPMENT 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 COVID: Suspected 11/14/2024 11/14/2024 11/14/2024 3:33 PM EQUIPMENT 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 RSV, droplet 11/14/2024 11/14/2024 11/21/2024 3:07 AM EQUIPMENT 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 COVID: Suspected 12/30/2024 12/30/2024 12/30/2024 7:54 PM CDT documented as of this encounter Care Teams Ambulance Mechanic Relationship Specialty Start Date End Date Anayeli Lee MD [address] [place] [address] PCP - General Family Medicine 07/03/23 08/24/24 Preethi Godoy NP 2[address] [facility] 130 [place] [address] PCP - General Family Medicine 08/25/24 Kath Shepherd MD [address] [place] [address] Consulting Physician Gastroenterology 07/22/19 Peter Ya MD [address] [place] [address] Jackspooler Cardiology 07/22/19 Vitaly Ledesma MD [address] [place] [address] Consulting Physician Neurology 07/22/19 Joshua Butterfield MD [address] [facility] 200 [place] [address] Consulting Physician Urology 07/03/23 Jeffery Bustillos MD [address] [facility] 102 [place] [address] Consulting Physician Cardiovascular Disease 02/06/24 Shimon Schofield MD 4600 [facility] 120 [place] [address] Consulting Physician Vascular Surgery 02/06/24 documented as of this encounter
--- OUTSIDE RECORDS SUMMARY | 2025-04-12 15:35 | XMS_ITS | Encounter Summary ---
Author Organization [facility] Healthcare Address [address] [place] [address] Care Team Providers Care Zoo Veterinarian Name Role Phone Kath Shepherd MD Unavailable [phone] Peter Ya MD Unavailable [phone] Vitaly Ledesma MD Unavailable [phone] Joshua Butterfield MD Unavailable [phone] Jeffery Bustillos MD Unavailable [phone] Shimon Schofield MD Unavailable Preethi Godoy NP Primary Care Provider [phone] Reason for Visit * Reason Onset Date Comments Medical Question/Miscellaneous 03/31/2025 Encounter Details Date Type Department Care Team (Late st Contact Info) Description 03/31/2025 Telephone [facility] Medical Group Primary Care at [address] [address] Preethi Godoy NP [address] [place] [address] [address] [place] [address] Medical Question/Miscellaneous Social History Tobacco [...] on file 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 2:24 AM PRICE CHECKER Gender Identity Not on file Sexual Orientation Not on file 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 Not [...] on filedocumented in this encounter Care Teams Zoo Veterinarian Relationship Specialty Start Date End Date Preethi Godoy NP 2 [facility] [address] [place] [address] PCP - General Family Medicine 08/25/24 Kath Shepherd MD [address] [place] [address] Consulting Physician Gastroenterology 07/22/19 Peter Ya MD [address] [place] [address] Computational Scientist Cardiology 07/22/19 Vitaly Ledesma MD [address] [place] [address] Consulting Physician Neurology 07/22/19 Joshua Butterfield MD [address] [facility] 200 [place] [address] Consulting Physician Urology 07/03/23 Jeffery Bustillos MD [address] [facility] 102 [place] [address] Consulting Physician Cardiovascular Disease 02/06/24 Shimon Schofield MD 4600 [facility] 120 [place] [address] Consulting Physician Vascular Surgery 02/06/24 documented as of this encounter
--- OUTSIDE RECORDS SUMMARY | 2025-04-12 15:35 | XMS_ITS | Encounter Summary ---
Author Organization [facility] Healthcare Address [address] [place] [address] Care Team Providers Care Felled Seam Operator Name Role Phone Kath Shepherd MD Unavailable [phone] Peter Ya MD Unavailable [phone] Vitaly Ledesma MD Unavailable [phone] Joshua Butterfield MD Unavailable [phone] Jeffery Bustillos MD Unavailable [phone] Shimon Schofield MD Unavailable Preethi Godoy NP Primary Care Provider [phone] Encounter Details Date Type Department Care Team (Late st Contact Info) Description 02/17/2025 Results Follow-Up [facility] Medical Group Primary Care at [address] [address] Ankit Pascal MD [address] [place] [address] [address] [place] [address] Urine culture Urine, clean voided [...] on file 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 2:24 AM ACID CONCENTRATOR Gender Identity Not on file Sexual Orientation Not on file 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 Not on file Not on file documented as of this encounter Plan of Treatment Not on file documented as of this encounter Visit Diagnoses Not on filedocumented in this encounter Care Teams Felled Seam Operator Relationship Specialty Start Date End Date Preethi Godoy NP [address] [facility] [address] [place] [address] PCP - General Family Medicine 08/25/24 Kath Shepherd MD [address] [place] [address] Consulting Physician Gastroenterology 07/22/19 Peter Ya MD [address] [place] [address] Account Executive Trainee Cardiology 07/22/19 Vitaly Ledesma MD [address] [place] [address] Consulting Physician Neurology 07/22/19 Joshua Butterfield MD [address] [place] [address] Consulting Physician Urology 07/03/23 Jeffery Bustillos MD [address] [facility] [address] [facility] [address] [place] [address] Consulting Physician Cardiovascular Disease 02/06/24 Shimon Schofield MD [address] [facility] 120 [place] [address] Consulting Physician Vascular Surgery 02/06/24 documented as of this encounter
--- OUTSIDE RECORDS SUMMARY | 2025-04-12 15:35 | XMS_ITS | Encounter Summary ---
Author Organization [facility] Address [address] [place] [address] Care Team Providers Care Pattern Storage Clerk Name Role Phone John Kimbrough MD Primary Care Provider Kath Shepherd MD Unavailable [phone] Peter Ya MD Unavailable [phone] Vitaly Ledesma MD Unavailable [phone] Anayeli Lee MD Primary Care Provider Joshua Butterfield MD Unavailable [phone] Jeffery Bustillos MD Unavailable [phone] Shimon Schofield MD Unavailable Preethi Godoy NP Primary Care Provider Encounter Details Date Type Department Care Team (Late st Contact Info) Description 03/26/2019 Documentation [facility] [address] [place] [address] Kaykay Jason, TEDDY Social History Tobacco Use Types Packs/Day Years Used Date Smoking Tobacco: Former Smokeless Tobacco: Never Alcohol Use Standard Drinks/Week Comments No 0 (1 standard drink = 0.6 oz pur e alcohol) Sex and Gender Information Value Date Recorded Sex Assigned at Not on file 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 2:24 AM PHOTOGRAPHIC PRESS SCREWMAKER Gender Identity Not on file Sexual Orientation Not on file documented as of this encounter Plan of Treatment Not on file documented as of this encounter Visit Diagnoses Not on filedocumented in this encounter Additional Health Concerns Infection Onset Date Last Indicated Resolved Time COVID: Suspected 08/21/2021 08/21/2021 08/21/2021 11:38 AM PHOTOGRAPHIC PRESS SCREWMAKER COVID: Suspected 11/14/2024 11/14/2024 11/14/2024 10:49 AM PHOTOGRAPHIC PRESS SCREWMAKER COVID: Suspected 11/14/2024 11/14/2024 11/14/2024 3:33 PM PHOTOGRAPHIC PRESS SCREWMAKER RSV, droplet 11/14/2024 11/14/2024 11/21/2024 3:07 AM PHOTOGRAPHIC PRESS SCREWMAKER COVID: Suspected 12/30/2024 12/30/2024 12/30/2024 7:54 PM CDT documented as of this encounter Care Teams Pattern Storage Clerk Relationship Specialty Start Date End Date John Kimbrough MD PCP - General 11/08/16 07/02/23 Anayeli Lee MD [address] [place] [address] PCP - General Family Medicine 07/03/23 08/24/24 Preethi Godoy NP [address] [address] PCP - General Family Medicine 08/25/24 Kath Shepherd MD [address] [place] [address] Consulting Physician Gastroenterology 07/22/19 Peter Ya MD [address] [place] [address] Repairer Cylinder Heads Cardiology 07/22/19 Vitaly Ledesma MD [address] [place] [address] Consulting Physician Neurology 07/22/19 Joshua Butterfield MD [address] [facility] [address] [place] [address] Consulting Physician Urology 07/03/23 Jeffery Bustillos MD [address] [facility] [address] [place] [address] Consulting Physician Cardiovascular Disease 02/06/24 Shimon Schofield MD [address] [address] Consulting Physician Vascular Surgery 02/06/24 documented as of this encounter
--- OUTSIDE RECORDS SUMMARY | 2025-04-12 15:35 | XMS_ITS | Encounter Summary ---
Author Organization [facility] Address [address] [place] [address] Phone Care Team Providers Care Sash Repairer Name Role Phone John Kimbrough MD Primary Care Provider Kath Shepherd MD Unavailable [phone] Peter Ya MD Unavailable [phone] Vitaly Ledesma MD Unavailable [phone] Anayeli Lee MD Primary Care Provider Joshua Butterfield MD Unavailable Jeffery Bustillos MD Unavailable [phone] Shimon Schofield MD Unavailable Preethi Godoy NP Primary Care Provider Encounter Details Date Type Department Care Team (Late st Contact Info) Description 02/03/2020 Telephone [facility] Gastroenterology Formerly [facility]1 [facility] 8th [place] [address] [place] [address] Sherie Yoo, [facility] Social History Tobacco Use Types Packs/Day Years Used Date Smoking Tobacco: Former Smokeless Tobacco: Never Alcohol Use Standard Drinks/Week Comments No 0 (1 standard drink = 0.6 oz pur e alcohol) Sex and Gender Information Value Date Recorded Sex Assigned at Not on file 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 2:24 AM INTERMEDIATE DESIGNER Gender Identity Not on file Sexual Orientation Not on file documented as of this encounter Plan of Treatment Not on file documented as of this encounter Visit Diagnoses Not on filedocumented in this encounter Additional Health Concerns Infection Onset Date Last Indicated Resolved Time COVID: Suspected 08/21/2021 08/21/2021 08/21/2021 11:38 AM INTERMEDIATE DESIGNER COVID: Suspected 11/14/2024 11/14/2024 11/14/2024 10:49 AM INTERMEDIATE DESIGNER COVID: Suspected 11/14/2024 11/14/2024 11/14/2024 3:33 PM INTERMEDIATE DESIGNER RSV, droplet 11/14/2024 11/14/2024 11/21/2024 3:07 AM INTERMEDIATE DESIGNER COVID: Suspected 12/30/2024 12/30/2024 12/30/2024 7:54 PM CDT documented as of this encounter Care Teams Sash Repairer Relationship Specialty Start Date End Date John Kimbrough MD PCP - General 11/08/16 07/02/23 Anayeli Lee MD [address] [place] [address] PCP - General Family Medicine 07/03/23 08/24/24 Preethi Godoy NP [address] [address] PCP - General Family Medicine 08/25/24 Kath Shepherd MD [address] [place] [address] Consulting Physician Gastroenterology 07/22/19 Peter Ya MD [address] [place] [address] Integration Analyst Cardiology 07/22/19 Vitaly Ledesma MD [address] [place] [address] Consulting Physician Neurology 07/22/19 Joshua Butterfield MD [address] [facility] [address] [facility] 200 [place] [address] Consulting Physician Urology 07/03/23 Jeffery Bustillos MD [address] [facility] 162 [facility] 102 [place] [address] Consulting Physician Cardiovascular Disease 02/06/24 Shimon Schofield MD [address] [address] Consulting Physician Vascular Surgery 02/06/24 documented as of this encounter
--- OUTSIDE RECORDS SUMMARY | 2025-04-12 15:35 | XMS_ITS | Encounter Summary ---
Author Organization [facility] Healthcare Address [address] [place] [address] Care Team Providers Care Editorial Writer Name Role Phone Kath Shepherd MD Unavailable [phone] Peter Ya MD Unavailable [phone] Vitaly Ledesma MD Unavailable [phone] Joshua Butterfield MD Unavailable [phone] Jeffrey Bustillos MD Unavailable [phone] Shimon Schofield MD Unavailable Preethi Godoy NP Primary Care Provider [phone] Encounter Details Date Type Department Care Team (Late st Contact Info) Description 03/18/2025 Results Follow-Up [facility] Medical Group Primary Care at [address] [address] Ilana Powers NP [address] [place] [address] [address] [place] [address] Urinalysis reflex to microscopic and [...] on file 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 Gender Identity Not on file Sexual Orientation Not on file 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 Start 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 Job 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 [employer] 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 Not on file Not on file documented as of this encounter Plan of Treatment Not on file documented as of this encounter Visit Diagnoses Not on filedocumented in this encounter Care Teams Editorial Writer Relationship Specialty Start Date End Date Preethi Godoy NP [address] [facility] 130 [place] [address] PCP - General Family Medicine 08/25/24 Kath Shepherd MD [address] [place] [address] Consulting Physician Gastroenterology 07/22/19 Peter Ya MD [address] [place] [address] Software Quality Manager Cardiology 07/22/19 Vitaly Ledesma MD [address] [place] [address] Consulting Physician Neurology 07/22/19 Joshua Butterfield MD [address] [facility] [address] [place] [address] Consulting Physician Urology 07/03/23 Jeffery Bustillos MD [address] [address] Consulting Physician Cardiovascular Disease 02/06/24 Shimon Schofield MD [address] [address] Consulting Physician Vascular Surgery 02/06/24 documented as of this encounter
--- OUTSIDE RECORDS SUMMARY | 2025-04-12 15:35 | XMS_ITS | Continuity of Care Document ---
Author Name [facility] Organization [facility] Care Team Providers Care Team Driver Name Role Phone [facility] Unavailable Unavailable Encounters Combined list of: 1) Encounters from [facility] facilities going backup to the last 18 months, not all VA inpatient encounters are included; 2) Encounters from the Department of [facility] facilities going backup to 280 months. Location Location Details Encounter Type Encounter Number Reason For Visit Attending Provider ADM Date DC Date Status Disposition Source [facility] Outpatient Encounter [id number] 7 07[facility]27 [facility]
--- OUTSIDE RECORDS SUMMARY | 2025-04-12 15:35 | XMS_ITS | Encounter Summary ---
Author Organization [facility] Healthcare Address [address] [place] [address] Care Team Providers Care Senior Architectural Designer Name Role Phone Kath Shepherd MD Unavailable [phone] Peter Ya MD Unavailable [phone] Vitaly Ledesma MD Unavailable [phone] Anayeli Lee MD Primary Care Provider Joshua Butterfield MD Unavailable [phone] Jeffery Bustillos MD Unavailable [phone] Shimon Schofield MD Unavailable Preethi Godoy NP Primary Care Provider [phone] Encounter Details Date Type Department Care Team (Late st Contact Info) Description 05/17/2024 Orders Only [facility] Information Management [address] [place] [address] Scanning, Provider Social History Tobacco Use [...] on file 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 Gender Identity Not on file Sexual Orientation Not on file 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 Start Date Job End Date 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 Not [...] COVID: Suspected 11/14/2024 11/14/2024 11/14/2024 10:49 AM COTTON BREEDER COVID: Suspected 11/14/2024 11/14/2024 11/14/2024 3:33 PM COTTON BREEDER RSV, droplet 11/14/2024 11/14/2024 11/21/2024 3:07 AM COTTON BREEDER COVID: Suspected 12/30/2024 12/30/2024 12/30/2024 7:54 PM CDT documented as of this encounter Care Teams Senior Architectural Designer Relationship Specialty Start Date End Date Anayeli Lee MD [address] [place] [address] PCP - General Family Medicine 07/03/23 08/24/24 Preethi Godoy NP [address] [facility] 130 [place] [address] PCP - General Family Medicine 08/25/24 Kath Shepherd MD [address] [place] [address] Consulting Physician Gastroenterology 07/22/19 Peter Ya MD [address] [place] [address] Groundskeeping Yardman Cardiology 07/22/19 Vitaly Ledesma MD [address] [place] [address] Consulting Physician Neurology 07/22/19 Joshua Butterfield MD [address] [place] [address] [address] [place] [address] Consulting Physician Urology 07/03/23 Jeffery Bustillos MD [address] [facility] [address] [place] [address] Consulting Physician Cardiovascular Disease 02/06/24 Shimon Schofield MD 46[address] [facility] [address] [place] [address] Consulting Physician Vascular Surgery 02/06/24 documented as of this encounter
== END 2025-04-12 16:12 | disposition left against medical advice (07) ==
LOC: ANHED 15:32
PROVIDERS: PCP Nurse Practitioner Family
DX: L08.9 Local infection of the skin and subcutaneous tissue, unspecified (principal)
CPT/HCPCS: 99199

== ENCOUNTER 2025-04-13 09:14 | Inpatient (IN) | payer MEDICARE, SELFPAY ==
--- NOTE | ~2025-04-13 | US_ITS ---
US venous doppler [facility] - 04/13/2025 13:29 CDT History: 79 years old Male with left lower extremity pain and swelling. Real-time sonographic images of the left lower extremity venous system were obtained. Color Doppler sonography and spectral waveform analysis were performed. No prior studies for comparison. The left sapheno-femoral junctions are patent. The left common femoral, superficial femoral, poplit eal and posterior tibial veins are compressible and without evidence of echogenic thrombus. Impression: No evidence of deep venous thrombosis Reviewed, dictated and finalized at location A. Impression: No evidence of deep venous thrombosis
--- NOTE | ~2025-04-13 | XR_ITS ---
XR foot LT min 3V 04/13/2025 13:22 Indication: Left foot infection Procedure: 3 views left foot Comparison: No prior studies for comparison. Findings: No fracture, subluxation or dislocation. 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 Lisfranc joint intact mild dorsal soft tissue swel ling. No significant vascular abnormality. Impression: 1: No acute abnormality of the left foot. No evidence for osteomyelitis. If there is clinical concern for osteomyelitis, correlation with MRI with contrast recommended. Reviewed, dictated and finalized at location A. Impression: 1: No acute abnormality of the left foot. No evidence for osteomyelitis. If the re is clinical concern for osteomyelitis, correlation with MRI with contrast re commended.
[2025-04-13 09:15] VITALS: BP 112/62; PULSE 87; RESP 16; TEMP 36.4; O2SAT 100
--- OUTSIDE RECORDS SUMMARY | 2025-04-13 09:27 | XMS_ITS | Encounter Summary ---
Author Organization [facility] Address [address] [place] [address] Phone Care Team Providers Care Juvenile Court Judge Name Role Phone John Kimbrough MD Primary Care Provider [phone] Kath Shepherd MD Unavailable [phone] Peter Ya MD Unavailable [phone] Vitaly Ledesma MD Unavailable [phone] Anayeli Lee MD Primary Care Provider Joshua Butterfield MD Unavailable [phone] Jeffery Bustillos MD Unavailable [phone] Shimon Schofield MD Unavailable Preethi Godoy NP Primary Care Provider [phone] Encounter Details Date Type Department Care Team [...] on file 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 Gender Identity Not on file Sexual Orientation Not on file 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 [employer] Not on file Not [...] COVID: Suspected 08/21/2021 08/21/2021 08/21/2021 11:38 AM SCHOOL JANITOR COVID: Suspected 11/14/2024 11/14/2024 11/14/2024 10:49 AM SCHOOL JANITOR COVID: Suspected 11/14/2024 11/14/2024 11/14/2024 3:33 PM SCHOOL JANITOR RSV, droplet 11/14/2024 11/14/2024 11/21/2024 3:07 AM SCHOOL JANITOR COVID: Suspected 12/30/2024 12/30/2024 12/30/2024 7:54 PM CDT documented as of this encounter Care Teams Juvenile Court Judge Relationship Specialty Start Date End Date John Kimbrough MD PCP - General 11/08/16 07/02/23 Anayeli Lee MD [address] [place] [address] PCP - General Family Medicine 07/03/23 08/24/24 Preethi Godoy NP [address] [address] PCP - General Family Medicine 08/25/24 Kath Shepherd MD [address] [place] [address] Consulting Physician Gastroenterology 07/22/19 Peter Ya MD [address] [place] [address] Concrete Stone Fabricator Cardiology 07/22/19 Vitaly Ledesma MD [address] [place] [address] Consulting Physician Neurology 07/22/19 Joshua Butterfield MD [address] [address] Consulting Physician Urology 07/03/23 Jeffery Bustillos MD [address] [address] Consulting Physician Cardiovascular Disease 02/06/24 Shimon Schofield MD [address] [address] Consulting Physician Vascular Surgery 02/06/24 documented as of this encounter
--- OUTSIDE RECORDS SUMMARY | 2025-04-13 09:27 | XMS_ITS | Clinical Summary ---
Author Organization [facility] Address [address] [place] [address] Care Team Providers Care Wire Stretcher Name Role Phone Kath Shepherd MD Unavailable [phone] Peter Ya MD Unavailable [phone] Azzia Ledesma MD Unavailable [phone] Joshua Butterfield MD Unavailable [phone] Jeffery Bustillos MD Unavailable [phone] Shimon Schofield MD Unavailable Preethi Godoy NP Primary Care Provider [phone] Allergies No known active allergies Medications coenzyme Q10 10 mg capsule Take 2 capsules (20 mg total) by mouth every morning Active qblsp-2-vcn-ep a-dpa-fish oil 1,050-1,200 mg capsule Take 1 [...] Route Frequency Start Date End Date Status [facility] BMS-732097/placebo ([id number]) capsule 4 capsuleIndications:Crohn' s disease of both small and large intestine with other complication (HCC) 4 capsule oral 2 times daily 05/21/2022 Active [facility] BMS-868159/placebo ([id number]) capsule 4 capsuleIndications:Crohn' s disease of both small and large intestine with other complication (HCC) 4 capsule oral 2 times daily 06/18/2022 Active [facility] BMS-370220/placebo ([id number]) capsule 4 capsuleIndications:Crohn' s disease of both small and large intestine with other complication (HCC) 4 capsule oral 2 times daily 07/09/2022 Active [facility] BMS-895119/placebo (/[id number]) capsule 4 capsuleIndications:Crohn' s disease of both small and large intestine with other complication (HCC) 4 capsule oral 2 times daily 08/07/2022 Active [facility] BMS-977869/placebo ([id number]) capsule 4 capsuleIndications:Crohn' s disease of both small and large intestine with other complication (HCC) 4 capsule oral 2 times daily 09/19/2022 Active [facility] BMS-773295/placebo ([id number]) capsule 4 capsuleIndications:Crohn' s disease of both [...] modification Assessment & Plan (10/03/2023 1:12 PM CUSTOMER PROJECT MANAGER): Chronic. Due to prior peripheral [...] urologist Assessment & Plan (10/03/2023 1:12 PM CUSTOMER PROJECT MANAGER): Chronic. Continue medication care per Urology Assessment & Plan (07/03/2023 5:22 PM CDT): Follows with [facility] [place] Dr. Butterfield. Patient on finasteride and does intermittent straight catheterization Protein-calorie malnutrition, mild 07/03/2023 Overview (07/03/2023): Patient with low BMI. Less protein level was low. Monitor weight Assessment & Plan (02/06/2024 4:55 PM CDT): Patient has had borderline protein calorie malnutrition. Monitor his protein levels on labs. Encourage adequate nutrition. Avoid additional weight loss Assessment & Plan (10/03/2023 1:12 PM CUSTOMER PROJECT MANAGER): Chronic. BMI remains at the lower end arrange. Encouraged adequate nutrition. Monitor History of gout 07/03/2023 Assessment & Plan (02/06/2024 4:55 PM CDT): Chronic. Denies history of recent flares. Continue allopurinol for prophylaxis. Check uric acid Assessment & Plan (10/03/2023 1:12 PM CUSTOMER PROJECT MANAGER): Chronic. Denies any history of [...] 03/14/2023 Assessment & Plan (10/03/2023 1:13 PM CUSTOMER PROJECT MANAGER): Chronic. May occasionally increase in size. Minimal pain. Has deferred elective repair in the past Persistent atrial fibrillation 12/04/2021 Assessment & Plan (11/23/2024 1:36 PM CUSTOMER PROJECT MANAGER): Rate controlled in office, continuing follow up with Cardiology. Assessment & Plan (03/01/2024 7:51 AM CDT): Stable continue metoprolol. Assessment & Plan (02/06/2024 4:55 PM CDT): Chronic. Controlled rate with metoprolol. Continue. Continue aspirin for stroke prophylaxis Assessment & Plan (10/03/2023 1:12 PM CUSTOMER PROJECT MANAGER): Chronic. Continue risk factor modification. [...] Monitor Assessment & Plan (10/03/2023 1:11 PM CUSTOMER PROJECT MANAGER): Chronic. Denies significant worsening. No [...] They denies significant agitation Cerebral amyloid angiopathy ([facility]) 02/15/2020 Assessment & Plan (02/06/2024 4:54 PM CDT): Chronic. Memory has worsened slightly in the last year. He does have some fluctuations at times. No real agitation. Target good blood pressure control. Continue aspirin for his other issues. Would be cautious with more aggressive anticoagulation given history of amyloid angiopathy Assessment & Plan (10/03/2023 1:11 PM CUSTOMER PROJECT MANAGER): Chronic. Denies any progression of symptoms Assessment & Plan (07/03/2023 5:18 PM CDT): Chronic. Control blood pressure and modify risk factors as able. Continue aspirin given AFib but would be cautious with stronger anticoagulants given increased bleeding risk with cerebral amyloid angiopathy Peripheral artery disease 09/10/2019 Overview (09/10/2019): Added automatically from request for surgery [id number] Assessment & Plan (09/03/2024 10:57 AM CUSTOMER PROJECT MANAGER): Stable lower extremity occlusive disease. [...] duplex. Assessment & Plan (10/03/2023 1:11 PM CUSTOMER PROJECT MANAGER): Chronic. Denies recent claudication symptoms. Continue ASA, statin and Pletal Assessment & Plan (07/03/2023 5:22 PM CDT): Chronic. 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 Denies current sores on his feet. Follows with Podiatry in [place]. On cilostazol Iron deficiency anemia due to [...] 02/17/2019 Assessment & Plan (11/23/2024 1:35 PM CUSTOMER PROJECT MANAGER): BP normal in office, continuing [...] dehydrate Assessment & Plan (10/03/2023 1:10 PM CUSTOMER PROJECT MANAGER): Chronic. Blood pressure controlled. Continue [...] (01/26/2019): Added automatically from request for surgery [id number] Assessment & Plan (02/06/2024 4:52 PM CDT): Chronic. Disease has been stable. Minimal symptoms. He does have to be cautious with eating too many fruits and vegetables as he notes this does cause some GI distress. He remains controlled with Skyrezi and hydroxychloroquine. He will continue Assessment & Plan (10/03/2023 1:10 PM CUSTOMER PROJECT MANAGER): Chronic. Symptomatically improved per patient. Continue medication and care per GI Assessment & Plan (07/03/2023 5:20 PM CDT): Chronic. Follows with Gastroenterology. On scar oz and sulfasalazine. Continue medication and care per them CAD (coronary artery disease) 12/04/2018 Assessment & Plan (09/03/2024 10:57 AM CUSTOMER PROJECT MANAGER): Stable continue ASA and Lasix Assessment & Plan (02/06/2024 4:51 PM CDT): Chronic. Denies chest pain. Continue risk factor modification with statin, aspirin, blood pressure control. Target LDL less than 70 Assessment & Plan (10/03/2023 1:10 PM CUSTOMER PROJECT MANAGER): Chronic. Denies chest pain. Follows [...] 12/30/2017 Assessment & Plan (08/25/2024 4:06 PM CUSTOMER PROJECT MANAGER): Updated labs ordered, Hemoglobin was [...] infusions Assessment & Plan (10/03/2023 1:10 PM CUSTOMER PROJECT MANAGER): Chronic. Follows with GI and Hematology. Has received iron infusions. Often does B12 injections Assessment & Plan (07/03/2023 5:15 PM CDT): Chronic. Follows with GI and Hematology. Received iron infusions Hypercholesterolemia 02/05/2011 Assessment & Plan (09/03/2024 10:57 AM CUSTOMER PROJECT MANAGER): Stable continue statin therapy. Assessment & Plan (03/01/2024 7:50 AM CDT): Stable continue statin therapy. Assessment & Plan (02/06/2024 4:53 PM CDT): Chronic. Tolerates atorvastatin. Continue. Check cholesterol level and adjust for an LDL goal of at least less than 70 with optimal less than 55 Assessment & Plan (10/03/2023 1:10 PM CUSTOMER PROJECT MANAGER): Chronic. Tolerates current prescription medication. [...] (05/29/2021): Added automatically from request for surgery [id number] Crohn's disease with rectal bleeding 12/10/2018 07/03/2023 Overview (12/10/2018): Added automatically from request for surgery [id number] Peripheral vascular disease 02/13/2017 07/03/2023 Gastrointestinal hemorrhage 07/03/2023 Acute renal failure 07/03/20 23 Crohn's disease of colon with rectal bleeding 07/03/2023 Assessment & Plan (12/04/2021 1:34 PM CDT): Has upcoming endoscopy. Encounters Date Type Department Care Team Description 04/12/2025 Results Follow-Up [facility] Convenient Care at [address] [phone] Gladys Valdovinos NP Aerobic and anaerobic culture and gram stain Wound Buttocks, right, Colleen (yeast) culture Lesion Buttocks, right 04/10/2025 12:55 PM CDT - 04/10/2025 11:59 PM CDT Hospital Encounter [address] [address] Incidental lung nodule Discharge Disposition: Discharge to home or self care 04/07/2025 Results Follow-Up [facility] Primary Care at [address] [phone] Ilana Powers NP Urinalysis reflex to microscopic and culture Urine, in and out catheter, Urinalysis, microscopic only 04/06/2025 11:24 AM CDT - 04/06/2025 11:59 PM CDT Hospital Encounter [address] [address] Local skin infection Discharge Disposition: Discharge to home or self care 04/06/2025 11:00 AM CDT Office Visit [facility] Care at [address] [phone] Sandrita Daugherty NP Local skin infection (Primary Dx); Contact dermatitis due to plants, except food, unspecified contact dermatitis type 04/06/2025 10:45 AM CDT Lab [facility] Outpatient Lab at [address] [phone] 04/06/2025 10:42 AM CDT - 04/06/2025 11:59 PM CDT Hospital Encounter [address] [address] Recurrent UTI; Altered mental status, unspecified altered mental status type Discharge Disposition: Discharge to home or self care 04/04/2025 Telephone [facility] Primary Care at [address] [phone] Preethi Godoy NP Symptom Based Call 03/31/2025 Telephone [facility] Primary Care at [address] [phone] Preethi Godoy NP Medical Question/Miscellane ous 03/18/2025 12:00 PM CDT Lab [facility] Outpatient Lab at [address] [phone] 03/18/2025 11:49 AM CDT - 03/18/2025 11:59 PM CDT Hospital Encounter [address] [address] Recurrent UTI Discharge Disposition: Discharge to home or self care 03/18/2025 Results Follow-Up [facility] Primary Care at [address] [phone] Ilana Powers NP Urinalysis reflex to microscopic and culture Urine, in and out catheter, Urinalysis, microscopic only, Urine culture Urine, in and out catheter 03/18/2025 Orders Only [facility] Primary Care at [address] [phone] Ilana Powers NP Acute cystitis without hematuria (Primary Dx) 03/18/2025 Nurse Triage [facility] Primary Care at [address] [phone] Love Piña RN Recurrent UTI (Primary Dx) 03/03/2025 9:58 AM CDT - 03/03/2025 11:59 PM CDT Hospital Encounter [facility] [address] [place] [address] Amyloid myopathy (HCC) Discharge Disposition: Discharge to home or self care 02/25/2025 8:45 AM CDT Lab [facility] Outpatient Lab at [address] [phone] Acute hemorrhagic cystitis (Primary Dx) 02/25/2025 8:36 AM CDT - 02/25/2025 11:59 PM CDT Hospital Encounter [address] [address] Acute cystitis with hematuria Discharge Disposition: Discharge to home or self care 02/21/2025 11:45 AM CDT Office Visit [facility] Primary Care at [address] [phone] Ankit Pascal MD Acute cystitis with hematuria (Primary Dx) 02/21/2025 Nurse Triage [facility] Primary Care at [address] [phone] Preethi Godoy, DONALD 02/17/2025 Results Follow-Up [facility] Primary Care at [address] [phone] Ankit Pascal MD Urine culture Urine, clean voided 02/15/2025 4:29 PM CDT - 02/15/2025 11:59 PM CDT Hospital Encounter [address] [address] Confusion Discharge Disposition: Discharge to home or self care 02/15/2025 4:15 PM CDT Office Visit [facility] Primary Care at [address] [phone] Ankit Pascal MD Acute cystitis with hematuria (Primary Dx); Confusion 02/15/2025 Nurse Triage [facility] Primary Care at [address] [phone] Preethi Godoy, DONALD 02/09/2025 Telephone [facility] Primary Care at [address] [phone] Preethi Godoy NP Medication Request 01/28/2025 Telephone [facility] Cardiology [address] [place] [phone] Madai Enrique NP 01/28/2025 Orders Only [facility] Cardiology [address] [facility] [address] [place] [phone] Madai Enrique NP Amyloid myopathy (HCC) (Primary Dx); Mitral valve insufficiency, unspecified etiology; Incidental lung nodule 01/23/2025 Results Follow-Up [facility] Primary Care at [address] [phone] Ankit Pascal MD Urinalysis reflex to microscopic and culture Urine, Urinalysis, microscopic only 01/21/2025 11:15 AM CDT Ancillary Procedure [facility] Cardiology at [address] [place] [address] Coronary artery disease involving coronary bypass graft of klamath heart, unspecified whether angina present; Fatigue, unspecified type; Hypotension, unspecified hypotension type 01/19/2025 12:15 PM CDT Lab [facility] Outpatient Lab at [address] [phone] 01/19/2025 12:03 PM CDT - 01/19/2025 11:59 PM CDT Hospital Encounter [address] [address] Recurrent UTI Discharge Disposition: Discharge to home or self care 01/19/2025 Results Follow-Up [facility] Primary Care at [address] [phone] Ankit Pascal MD CBC with auto differential, Differential, auto 01/18/2025 11:45 AM CDT Ancillary Procedure [facility] Imaging at [address] [phone] 01/18/2025 11:30 AM CDT Lab [facility] Outpatient Lab at [address] [phone] KAYLA (generalized anxiety disorder) (Primary Dx); Benign prostatic hyperplasia with urinary retention 01/18/2025 11:20 AM CDT - 01/18/2025 11:59 PM CDT Hospital Encounter [address] [address] CAP (community acquired pneumonia) Discharge Disposition: Discharge to home or self care 01/18/2025 10:30 AM CDT Office Visit [facility] Primary Care at [address] [phone] Ankit Pascal MD Hospital discharge follow-up (Primary Dx); CAP (community acquired pneumonia); Recurrent UTI 01/18/2025 Results Follow-Up [facility] Primary Care at [address] [phone] Ankit Pascal MD XR Chest Pa Lateral 2 Views from Last 3 Months Immunizations Immunization Administration [...] Neg Hx Relation Name Status Comments Father CA & CVA () age 76 Mother Sister [...] on file 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 2:24 AM CUSTOMER PROJECT MANAGER Gender Identity Not on file Sexual Orientation Not on file 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 [employer] Not on file Not on file Not [...] Discontinued Medical Devices Implanted Type Area Medical Apparatus Model Maker Device Identifier Shelf Expiration Date Model / Serial / Lot [employer] Araceli [id number] Synergy 3.5mm 24mm 144cm Radiopaque 1 Access Port Inflation Lumen - [id number] - [id number] Implanted:Qty: 1 on 03/26/2019 by Alban Santana MD at [facility] Stent [employer] Araceli 12/09/2020 [id number] / [id number] / [id number] Procedures Procedure Name Priority Date/Time Associated Diagnosis [...] artery disease involving coronary bypass graft of klamath heart, unspecified whether angina present Fatigue, unspecified [...] (community acquired pneumonia) COLONOSCOPY 10/21/2024 10:56 AM CUSTOMER PROJECT MANAGER CTA ABDOMEN PELVIS W WO [...] - 1.30 mg/dL Comment:Testing performed by : [facility], [address] [place] [address]., [address] Blood 04/10/2025 1:29 PM CDT 04/10/2025 1:29 PM CDT Preethi Godoy NP POINT OF CARE TEST ORDERABLES nal Result [facility] [address] [facility] [place] [address] * (ABNORMAL) Colleen (yeast) culture Lesion Buttocks, right (04/06/2025 11:24 AM CDT) Report Final Report: Moderate Colleen albicans (.) Comment:Testing performed by : [facility], [address] [place]., [address] Organism COLLEEN ALBICANS TRAVIS Lesion (Buttocks, right) 04/06/2025 11:24 AM CDT 04/06/2025 10:12 PM CDT Narrative [facility] - 04/12/2025 6:56 AM CDT Interpretation data: This culture is NOT intended for the detection of filamentous fungi, endemic mycosis, or Cryptococcus. If detected, yeast will be reported and identified. Routine susceptibility is not performed, but if required, please contact the Microbiology Laboratory at . us Sandrita Daugherty NP LAB MICROBIOLOGY - GENERAL ORDE RABLES Final Result [facility] [address] Department [place] [address] * (ABNORMAL) Urinalysis reflex to microscopic and [...] tendency for uric acid stone formation. Source: [facility] [employer] Current Interpretive Data was last revised on [...] GENERAL ORDER MANJINDER Final Result [facility] [address] [place] [address] * (ABNORMAL) Urinalysis, microscopic only (04/06/2025 10:42 AM CDT) WBC, ur 6-10(A) 0 - 5 /HPF RBC, ur 0-2 0 - 2 /HPF [facility] Epithelial cells, squamous, ur 1-5 0 - 5 /HPF [facility] Bacteria, ur 1+(A) [facility] Culture Reflex Comment Reflex conditions for urine culture (WBC >10) not met. [facility] Urine, in and out catheter 04/06/2025 10:42 AM CDT 04/06/2025 8:18 PM CDT us Preethi Godoy NP LAB URINE ORDERABLES Final Resul t Performing Organization Address City/[facility]/ZIP Co de Phone Number [facility] [address] [place] [address] * (ABNORMAL) Urinalysis reflex to microscopic and culture Urine, in and out catheter (03/18/2025 11:49 AM CDT) Color, ur Yellow Yellow Clarity, ur Turbid(A) Clear [facility] Specific gravity, ur 1.014 1.003 - 1.030 [...] tendency for uric acid stone formation. Source: [facility] Laboratories Current Interpretive Data was last revised on 2017 Protein, ur ql Trace Negative [facility] Glucose, ur ql Negative Negative [facility] Ketones, ur Negative Negative [facility] Bilirubin, ur Negative Negative [facility] Blood, ur Trace(A) Negative [facility]ER Urobilinogen, ur <2.0 <2.0 mg/dL [facility]ER Nitrite, ur Negative Negative [facility] Leukocyte esterase, ur 4+(A) Negative [facility] UA reflex comment Reflex to microscopic UA will be performed. [facility] Urine, in and out catheter 03/18/2025 11:49 AM CDT 03/18/2025 3:22 PM CDT us Preethi Godoy NP LAB MICROBIOLOGY - GENERAL ORDER MANJINDER Final Result [facility] [address] [place] [address] * (ABNORMAL) Urinalysis, microscopic only (03/18/2025 11:49 AM CDT) WBC, ur >50(A) 0 - 5 /HPF RBC, ur 0-2 0 - 2 /HPF [facility] Epithelial cells, squamous, ur 1-5 0 - 5 /HPF [facility] Bacteria, ur 2+(A) [facility] Mucous, ur Present(A) [facility] Culture Reflex Comment Reflex to urine culture will be performed. [facility] Urine, in and out catheter 03/18/2025 11:49 AM CDT 03/18/2025 3:22 PM CDT Preethi Godoy NP LAB URINE ORDERABLES Final Resul t [facility] [address] [place] [address] * (ABNORMAL) Urine culture Urine, in and out catheter (03/18/2025 11:49 AM CDT) Report Final Report: Greater than or equal to 100,000 colonies/mL of Klebsiella pneumoniae Greater than or equal to 100,000 colonies/mL of Klebsiella pneumoniae #2 (.) Comment:Testing performed by : [facility], [address] [place]., [address] Organism KLEBSIELLA PNEUMONIAE [facility] Organism KLEBSIELLA PNEUMONIAE [facility] Urine, in and out catheter 03/18/2025 11:49 AM CDT 03/18/2025 6:29 PM CDT Narrative [facility] - 03/20/2025 10:30 AM CDT Urine culture reflexed based upon urinalysis results. Testing performed by [facility] Microbiology Laboratory ([phone]) Organism Antibiotic Method Susceptibility Klebsiella pneumoniae Ampicillin [...] Susceptible Klebsiella pneumoniae Cefdinir INTERPRETATION Susceptible Preethi Jayne BENNETT LAB MICROBIOLOGY - GENERAL ORDER MANJINDER Final Result [facility] [address] [place] [address] * MRI Cardiac M&F W WO Contrast [...] tendency for uric acid stone formation. Source: [facility] Current Interpretive Data was last revised on [...] LAB MICROBIOLOGY - GENERAL ORDERABLES Final Result [facility] [address] Department [place] [address] * (ABNORMAL) Urinalysis, microscopic only [...] URINE ORDERABLES Final Result Performing Organization Address [facility] Co de Phone Number [facility] [address] [place] [address] * (ABNORMAL) Urine culture Urine (02/25/2025 8:36 AM CDT) Report Final Report: Greater than or equal to 100,000 colonies/mL of Klebsiella pneumoniae Plus growth of clinically insignificant bacterial alton. (.) Comment:Testing performed by : [facility], [address] [place]., [address] Organism KLEBSIELLA PNEUMONIAE [facility] Organism PLUS GROWTH OF CLINICALLY INSIGNIFICANT ALTON. [facility] Urine 02/25/2025 8:36 AM CDT 02/25/2025 6:25 PM CDT Narrative [facility] - 02/27/2025 11:00 AM CDT Urine culture reflexed based upon urinalysis results. Testing performed by [facility] Microbiology Laboratory ([phone]) Organism Antibiotic Method Susceptibility Klebsiella pneumoniae Ampicillin [...] - GENERAL ORDERABLES Final Result [facility] [address] [place] [address] * (ABNORMAL) POCT UA, AUTO W/O SCOPE (02/15/2025 4:30 PM CDT) Color, Urine, POC Yellow Clarity, ur, POC Cloudy(A) Clear Glucose, ur, POC Negative Negative Bilirubin, ur, POC Negative Negative Ketones, ur, POC Negative Negative Specific Virgin, POC 1.020 1.003 - 1.030 Blood, ur, [...] bacterial alton. (.) Comment:Testing performed by : [facility], [address] [place]., [address] Organism KLEBSIELLA PNEUMONIAE [facility] Organism PLUS GROWTH OF CLINICALLY INSIGNIFICANT ALTON. [facility] Urine, clean voided 02/15/2025 4:29 PM CDT 02/15/2025 10:46 PM CDT Narrative TRA[facility] - 02/18/2025 6:27 AM CDT Testing performed by [facility] Microbiology Laboratory ([phone]) Organism Antibiotic Method Susceptibility Klebsiella pneumoniae Ampicillin [...] - GENERAL ORDERABLES Final Result [facility] [address] Department [place] [address] * Lipid panel (01/26/2025 1:34 PM CDT) Blood us Historical Provider LAB BLOOD ORDERABLES Laly jonah Result EXTERNAL LAB * TRANSTHORACIC ECHO (TTE) COMPLETE W DOPPLER/CF WO CONTRAST (01/21/2025 11:37 AM CDT) Estimated EF 50-55 % CONS SCIMAGE EF Mod BP 56 % CONS SCIMAGE Anatomical Region Laterality Modality Ultrasound 01/21/2025 11:2 0 AM CDT Narrative 01/21/2025 12:31 PM CDT [facility] Cardiology [address], [address], [place] [address] P:[phone] P:[phone] Echocardiographic Report Patient Name: AZIZA LOYA O [...] Site: Exam was interpreted at [facility]. Left Ventricle: Mild concentric left ventricular [...] Procedure Note Harley Bowser MD - 01/21/2025 [facility] Cardiology [address], [address], [place] [address] P:[phone] P:[phone] Echocardiographic Report Patient Name: AZIZA LOYA O : 1945 Study Date: 01/21/2025 11:20:02 AM Gender: M Tech: Location: [facility] HILL Ref Provider: MADAI ENRIQUE Height(Cm): 178 BSA: [...] Site: Exam was interpreted at [facility]. Left Ventricle: Mild concentric left ventricular [...] tendency for uric acid stone formation. Source: [facility] Current Interpretive Data was last revised on [...] MICROBIOLOGY - GENERAL ORDERABLES Final Result [facility] [id number] Department [place] [address] * (ABNORMAL) Urinalysis, microscopic only (01/19/2025 12:03 PM CDT) WBC, ur 6-10(A) 0 - 5 /HPF RBC, ur 0-2 0 - 2 /HPF [facility] Epithelial cells, squamous, ur 1-5 0 - 5 /HPF [facility] Bacteria, ur Trace(A) [facility] Culture Reflex Comment Reflex conditions for urine culture (WBC >10) not met. [facility] Urine 01/19/2025 12:0 3 PM CDT 01/19/2025 7:25 PM CDT us Ankit Pascal MD LAB URINE ORDERABLES Final Result [facility] [id number] Department [place] [address] * XR Chest Pa Lateral 2 Views [...] Brown Ennis M.D. RW T: Report ID: [id number] Reading Location: [id number] Procedure Note Brown Ennis MD - 01/18/2025 [...] Brown Ennis M.D. RW T: Report ID: [id number] Reading Location: [place] [address] Ankit Pascal MD IMG XR PROCEDURES Final Res ult * (ABNORMAL) Differential, auto (01/18/2025 11:20 AM CDT) Neutrophil abs 7.11(H) 1.50 - 6.50 K/cumm Imm gran abs 0.04 0.00 - 0.10 K/cumm [facility] Lymphocyte abs 1.01 0.80 - 3.30 K/cumm [facility] Monocyte abs 0.86(H) 0.20 - 0.80 K/cumm [facility] Eosinophil abs 0.26 0.00 - 0.50 K/cumm [facility] Basophil abs 0.06 0.00 - 0.10 K/cumm [facility] Neutrophil pct 76.2 % [facility] Comment: Interpretive Data Percent cell count reference ranges are not reported, since discordance with absolute values may lead to misinterpretation of CBC data. Current Interpretive Data was last revised on 2017. Imm gran pct 0.4 % [facility] Comment: Interpretive Data Percent cell count reference ranges are not reported, since discordance with absolute values may lead to misinterpretation of CBC data. Current Interpretive Data was last revised on 2017. Lymphocyte pct 10.8 % [facility] Comment: Interpretive Data Percent cell count reference ranges are not reported, since discordance with absolute values may lead to misinterpretation of CBC data. Current Interpretive Data was last revised on 2017. Monocyte pct 9.2 % [facility] Comment: Interpretive Data Percent cell count reference ranges are not reported, since discordance with absolute values may lead to misinterpretation of CBC data. Current Interpretive Data was last revised on 2017. Eosinophil pct 2.8 % [facility] Comment: Interpretive Data Percent cell count reference ranges are not reported, since discordance with absolute values may lead to misinterpretation of CBC data. Current Interpretive Data was last revised on 2017. Basophil pct 0.6 % [facility] Comment: Interpretive Data Percent cell count reference ranges are not reported, since discordance with absolute values may lead to misinterpretation of CBC data. Current Interpretive Data was last revised on 2017. Blood 01/18/2025 11:2 0 AM CDT 01/18/2025 8:27 PM CDT Ankit Pascal MD LAB BLOOD ORDERABLES Final Result [facility] [id number] Department [place] [address] * (ABNORMAL) CBC with auto differential (01/18/2025 11:20 AM CDT) WBC 9.34 3.80 - 9.90 K/cumm Hgb 11.4(L) 13.0 - 17.5 g/dL [facility] Hct 37.5(L) 38.9 - 50.3 % [facility] Plt 284 150 - 400 K/cumm [facility] MPV 9.9 9.1 - 12.3 fL [facility] RBC 3.75(L) 4.30 - 5.80 M/cumm [facility] MCV 100.0(H) 81.3 - 96.4 fL [facility] MCH 30.4 27.1 - 33.3 pg [facility] MCHC 30.4(L) 32.3 - 35.7 g/dL [facility] RDW CV 13.7 11.1 - 14.9 % [facility] RDW SD 50.4(H) 35.7 - 48.1 fL [facility] NRBC abs 0.00 0.00 - 0.01 K/cumm [facility] Blood 01/18/2025 11:2 0 AM CDT 01/18/2025 8:27 PM CDT us Ankit Pascal MD LAB BLOOD ORDERABLES Final Result Performing Organization Address City/State/ZIP Co md Phone Number [facility] [phone] Department [place] [address] * Colonoscopy (10/21/2024 10:56 AM CUSTOMER PROJECT MANAGER) Anatomical Region Laterality Modality Other Narrative Procedure Note Kath Shepherd MD - 10/21/2024 10:56 AM CST [facility] Patient Name: Aziza Loya Procedure Date: 10/21/2024 10:56 AM Date of : 1945 Admit Type: Outpatient Age: 79 Gender: Male Attending MD: Kath Shepherd M.D. Room: [facility] ENDOSCOPY ROOM 3 Note Status: Addendum Procedure: Colonoscopy Indications: Disease activity assessment of Crohn's disease ofthe small bowel and colon Referring MD: Sanna Emmanuel.N.PHansa Providers: Kath Shepherd M.D., Isabell Bella M.D. [...] was passed under direct vision.The [facility] [id number] endoscope was introducedthrough the anus and [...] signed by Steven RAJPUT T: Report ID: [id number] Reading Location: [id number] Procedure Note Steven Ruano MD - 02/24/2024 [...] Steven Ruano M.D. RB T: Report ID: [id number] Reading Location: [id number] us Annie TOWNSEND IMG CT PROCEDURES Final [...] - GEN ERAL ORDERABLES Final Result [facility] [id number] [place] [address] from Last 3 Months or Most Recently Relevant to Health Maintenance Insurance A[employer] MEDICARE MEDICARE [facility] MEDICARE [facility] MEDICARE [facility] MEDICARE [facility] Advance Directives For more information, please contact: [phone] * Full Code (Latest Code Status on [...] 10:45 AM 05/17/2022 5:55 PM Care Teams Wire Stretcher Relationship Specialty Start Date End Date Preethi Godoy NP [address] [facility] 130 [place] [address] PCP - General Family Medicine 08/25/24 Kath Shepherd MD [address] [place] [address] Consulting Physician Gastroenterology 07/22/19 Peter Ya MD [address] [place] [address] Driver Education Instructor Cardiology 07/22/19 Aziza Ledesma MD [address] [place] [address] Consulting Physician Neurology 07/22/19 Joshua Butterfield MD [address] [place] [address] Consulting Physician Urology 07/03/23 Jeffery Bustillos MD [address] [address] Consulting Physician Cardiovascular Disease 02/06/24 Shimon Schofield MD [facility] [address] [address] Consulting Physician Vascular Surgery 02/06/24
--- OUTSIDE RECORDS SUMMARY | 2025-04-13 09:27 | XMS_ITS | Encounter Summary ---
Author Organization [facility] Address [address] [place] [address] Phone Care Team Providers Care Nursing Associate Name Role Phone John Kimbrough MD Primary Care Provider Kath Shepherd MD Unavailable [phone] Peter Ya MD Unavailable [phone] Vitaly Ledesma MD Unavailable [phone] Anayeli Lee MD Primary Care Provider Joshua Butterfield MD Unavailable [phone] Jeffery Bustillos MD Unavailable [phone] Shimon Schofield MD Unavailable Preethi Godoy NP Primary Care Provider Encounter Details Date Type Department Care Team (Late st Contact Info) Description 01/13/2018 Orders Only [facility] ProviderOlive MD [address] [place] [address] Social History Tobacco Use Types Packs/Day Years Used Date Smoking Tobacco: Never Smokeless Tobacco: Never Alcohol Use Standard Drinks/Week Comments No 0 (1 standard drink = 0.6 oz pur e alcohol) Sex and Gender Information Value Date Recorded Sex Assigned at Not on file 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 2:24 AM BULL CHAIN OPERATOR Gender Identity Not on file Sexual [...] COVID: Suspected 08/21/2021 08/21/2021 08/21/2021 11:38 AM BULL CHAIN OPERATOR COVID: Suspected 11/14/2024 11/14/2024 11/14/2024 10:49 AM BULL CHAIN OPERATOR COVID: Suspected 11/14/2024 11/14/2024 11/14/2024 3:33 PM BULL CHAIN OPERATOR RSV, droplet 11/14/2024 11/14/2024 11/21/2024 3:07 AM BULL CHAIN OPERATOR COVID: Suspected 12/30/2024 12/30/2024 12/30/2024 7:54 PM CDT documented as of this encounter Care Teams Nursing Associate Relationship Specialty Start Date End Date John Kimbrough MD PCP - General 11/08/16 07/02/23 Anayeli Lee MD [address] [place] [address] PCP - General Family Medicine 07/03/23 08/24/24 Preethi Godoy NP 2 [facility] 130 [place] [address] PCP - General Family Medicine 08/25/24 Kath Shepherd MD [address] [place] [address] Consulting Physician Gastroenterology 07/22/19 Peter Ya MD [address] [place] [address] Chip Tester Cardiology 07/22/19 Vitaly Ledesma MD [address] [place] [address] Consulting Physician Neurology 07/22/19 Joshua Butterfield MD [address] [facility] 200 [place] [address] Consulting Physician Urology 07/03/23 Jeffery Bustillos MD [address] [facility] 102 [place] [address] Consulting Physician Cardiovascular Disease 02/06/24 Shimon Schofield MD [address] [address] Consulting Physician Vascular Surgery 02/06/24 documented as of this encounter
--- OUTSIDE RECORDS SUMMARY | 2025-04-13 09:28 | XMS_ITS | Encounter Summary ---
Author Organization [facility] Healthcare Address [address] [place] [address] Care Team Providers Care Infertility Nurse Name Role Phone Kath Shepherd MD Unavailable [phone] Peter Ya MD Unavailable [phone] Vitaly Ledesma MD Unavailable [phone] Joshua Butterfield MD Unavailable [phone] Jeffery Bustillos MD Unavailable [phone] Shimon Schofield MD Unavailable Preethi Godoy NP Primary Care Provider [phone] Encounter Details Date Type Department Care Team (Late st Contact Info) Description 03/18/2025 Results Follow-Up [facility] Medical Group Primary Care at [address] [address] Ilana Powers NP [address] [place] [address] [address] [place] [address] Urinalysis reflex to microscopic and [...] on file 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 2:24 AM GLOBE TESTER Gender Identity Not on file Sexual Orientation Not on file 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 [employer]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 Not on file Not on file documented as of this encounter Plan of Treatment Not on file documented as of this encounter Visit Diagnoses Not on filedocumented in this encounter Care Teams Infertility Nurse Relationship Specialty Start Date End Date Preethi Godoy NP [address] [facility] 130 [place] [address] PCP - General Family Medicine 08/25/24 Kath Shepherd MD [address] [place] [address] Consulting Physician Gastroenterology 07/22/19 Peter Ya MD [address] [place] [address] Cleaner And Polisher Cardiology 07/22/19 Vitaly Ledesma MD [address] [place] [address] Consulting Physician Neurology 07/22/19 Joshua Butterfield MD [address] [facility] [address] [place] [id number] Consulting Physician Urology 07/03/23 Jeffery Bustillos MD [address] [address] Consulting Physician Cardiovascular Disease 02/06/24 Shimon Schofield MD [address] [address] Consulting Physician Vascular Surgery 02/06/24 documented as of this encounter
--- OUTSIDE RECORDS SUMMARY | 2025-04-13 09:28 | XMS_ITS | Encounter Summary ---
Author Organization [facility] Address [address] [place] [address] Phone Care Team Providers Care Roof Designer Name Role Phone John Kimbrough MD Primary Care Provider Kath Shepherd MD Unavailable [phone] Peter Ya MD Unavailable [phone] Vitaly Ledesma MD Unavailable [phone] Anayeli Lee MD Primary Care Provider Joshua Butterfield MD Unavailable Jeffery Bustillos MD Unavailable [phone] Shimon Schofield MD Unavailable Preethi Godoy NP Primary Care Provider Encounter Details Date Type Department Care Team (Late st Contact Info) Description 02/03/2020 Telephone [facility] Gastroenterology [facility] 8th [place] [address] [place] [address] Sherie Yoo, [facility] Social History Tobacco Use Types Packs/Day Years Used Date Smoking Tobacco: Former Smokeless Tobacco: Never Alcohol Use Standard Drinks/Week Comments No 0 (1 standard drink = 0.6 oz pur e alcohol) Sex and Gender Information Value Date Recorded Sex Assigned at Not on file 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 2:24 AM SETTER JUICE PACKAGING MACHINES Gender Identity Not on file Sexual Orientation Not on file documented as of this encounter Plan of Treatment Not on file documented as of this encounter Visit Diagnoses Not on filedocumented in this encounter Additional Health Concerns Infection Onset Date Last Indicated Resolved Time COVID: Suspected 08/21/2021 08/21/2021 08/21/2021 11:38 AM SETTER JUICE PACKAGING MACHINES COVID: Suspected 11/14/2024 11/14/2024 11/14/2024 10:49 AM SETTER JUICE PACKAGING MACHINES COVID: Suspected 11/14/2024 11/14/2024 11/14/2024 3:33 PM SETTER JUICE PACKAGING MACHINES RSV, droplet 11/14/2024 11/14/2024 11/21/2024 3:07 AM SETTER JUICE PACKAGING MACHINES COVID: Suspected 12/30/2024 12/30/2024 12/30/2024 7:54 PM CDT documented as of this encounter Care Teams Roof Designer Relationship Specialty Start Date End Date John Kimbrough MD PCP - General 11/08/16 07/02/23 Anayeli Lee MD [address] [place] [address] PCP - General Family Medicine 07/03/23 08/24/24 Preethi Godoy NP [address] [address] PCP - General Family Medicine 08/25/24 Kath Shepherd MD [address] [place] [address] Consulting Physician Gastroenterology 07/22/19 Peter Ya MD [address] [place] [address] Discharging Machine Operator Cardiology 07/22/19 Vitaly Ledesma MD [address] [place] [address] Consulting Physician Neurology 07/22/19 Joshua Butterfield MD [address] [facility] [address] [facility] 200 [place] [address] Consulting Physician Urology 07/03/23 Jeffery Bustillos MD [address] [facility] 162 [facility] 102 [place] [address] Consulting Physician Cardiovascular Disease 02/06/24 Shimon Schofield MD [address] [address] Consulting Physician Vascular Surgery 02/06/24 documented as of this encounter
--- OUTSIDE RECORDS SUMMARY | 2025-04-13 09:28 | XMS_ITS | Encounter Summary ---
Author Organization [facility] Healthcare Address [address] [place] [address] Care Team Providers Care Special Education Bus Driver Name Role Phone Kath Shepherd MD Unavailable [phone] Peter Ya MD Unavailable [phone] Vitaly Ledesma MD Unavailable [phone] Anayeli Lee MD Primary Care Provider Joshua Butterfield MD Unavailable [phone] Jeffery Bustillos MD Unavailable [phone] Shimon Schofield MD Unavailable Preethi Godoy NP Primary Care Provider [phone] Encounter Details Date Type Department Care Team (Late st Contact Info) Description 05/17/2024 Orders Only [facility] [address] [place] [address] Scanning, Provider Social History Tobacco Use [...] on file 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 2:24 AM NETWORK ARCHITECT MANAGER Gender Identity Not on file Sexual Orientation Not on file 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 130 [place] [address] PCP - General Family Medicine 08/25/24 Kath Shepherd MD [address] [place] [address] Consulting Physician Gastroenterology 07/22/19 Peter Ya MD [address] [place] [address] Helicopter Specialist Cardiology 07/22/19 Vitaly Ledesma MD [address] [place] [address] Consulting Physician Neurology 07/22/19 Joshua Butterfield MD [address] [place] [address] 200 [place] [address] Consulting Physician Urology 07/03/23 Jeffery Bustillos MD [address] [facility] [address] [place] [address] Consulting Physician Cardiovascular Disease 02/06/24 Shimon Schofield MD 46[address] [facility] 120 [place] [address] Consulting Physician Vascular Surgery 02/06/24 documented as of this encounter
--- OUTSIDE RECORDS SUMMARY | 2025-04-13 09:28 | XMS_ITS | Encounter Summary ---
Author Organization [facility] Healthcare Address [address] [place] [address] Care Team Providers Care Vpk Teacher Name Role Phone Kath Shepherd MD Unavailable [phone] Peter Ya MD Unavailable [phone] Vitaly Ledesma MD Unavailable [phone] Anayeli Lee MD Primary Care Provider Joshua Butterfield MD Unavailable [phone] Jeffery Bustillos MD Unavailable [phone] Shimon Schofield MD Unavailable Preethi Godoy NP Primary Care Provider [phone] Encounter Details Date Type Department Care Team (Late st Contact Info) Description 07/07/2024 Orders Only [facility] Information Management [address] [place] [address] Scanning, Provider Social History Tobacco Use [...] on file 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 2:24 AM KEYCASE ASSEMBLER Gender Identity Not on file Sexual Orientation Not on file 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 [employer] Not on file Not [...] COVID: Suspected 11/14/2024 11/14/2024 11/14/2024 10:49 AM KEYCASE ASSEMBLER COVID: Suspected 11/14/2024 11/14/2024 11/14/2024 3:33 PM KEYCASE ASSEMBLER RSV, droplet 11/14/2024 11/14/2024 11/21/2024 3:07 AM KEYCASE ASSEMBLER COVID: Suspected 12/30/2024 12/30/2024 12/30/2024 7:54 PM CDT documented as of this encounter Care Teams Vpk Teacher Relationship Specialty Start Date End Date Anayeli Lee MD [address] [place] [address] PCP - General Family Medicine 07/03/23 08/24/24 Preethi Godoy NP [address] [facility] [address] [place] [address] PCP - General Family Medicine 08/25/24 Kath Shepherd MD [address] [place] [address] Consulting Physician Gastroenterology 07/22/19 Peter Ya MD [address] [place] [address] Pourer Crane Ladle Cardiology 07/22/19 Vitaly Ledesma MD [address] [place] [address] Consulting Physician Neurology 07/22/19 Joshua Butterfield MD [address] [facility] 200 [place] [address] Consulting Physician Urology 07/03/23 Jeffery Bustillos MD [address] [facility] 102 [place] [address] Consulting Physician Cardiovascular Disease 02/06/24 Shimon Schofield MD 4600 [facility] 120 [place] [address] Consulting Physician Vascular Surgery 02/06/24 documented as of this encounter
--- OUTSIDE RECORDS SUMMARY | 2025-04-13 09:28 | XMS_ITS | Encounter Summary ---
Author Organization [facility] Healthcare Address [address] [place] [address] Care Team Providers Care Silk Finisher Name Role Phone Kath Shepherd MD Unavailable [phone] Peter Ya MD Unavailable [phone] Vitaly Ledesma MD Unavailable [phone] Joshua Butterfield MD Unavailable [phone] Jeffery Bustillos MD Unavailable [phone] Shimon Schofield MD Unavailable Preethi Godoy NP Primary Care Provider [phone] Reason for Visit * Reason Onset Date Comments Medical Question/Miscellaneous 03/31/2025 Encounter Details Date Type Department Care Team (Late st Contact Info) Description 03/31/2025 Telephone [facility] Medical Group Primary Care at [address] [address] Preethi Godoy NP [address] [place] [address] [address] [place] [address] Medical Question/Miscellaneous Social History Tobacco [...] on file 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 2:24 AM CREPE 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 Gender Identity Not on file [...] on filedocumented in this encounter Care Teams Silk Finisher Relationship Specialty Start Date End Date Preethi Godoy NP 2 [facility] 130 [place] [address] PCP - General Family Medicine 08/25/24 Kath Shepherd MD [address] [place] [address] Consulting Physician Gastroenterology 07/22/19 Peter Ya MD [address] [place] [address] Machine Setter Cardiology 07/22/19 Vitaly Ledesma MD [address] [place] [address] Consulting Physician Neurology 07/22/19 Joshua Butterfield MD [address] [facility] 200 [place] [address] Consulting Physician Urology 07/03/23 Jeffery Bustillos MD [address] [facility] 102 [place] [address] Consulting Physician Cardiovascular Disease 02/06/24 Shimon Schofield MD 4600 [facility] 120 [place] [address] Consulting Physician Vascular Surgery 02/06/24 documented as of this encounter
--- OUTSIDE RECORDS SUMMARY | 2025-04-13 09:28 | XMS_ITS | Encounter Summary ---
Author Organization [facility] Healthcare Address [address] [place] [address] Care Team Providers Care Rayon Coner Name Role Phone Kath Shepherd MD Unavailable [phone] Peter Ya MD Unavailable [phone] Vitaly Ledesma MD Unavailable [phone] Joshua Butterfield MD Unavailable [phone] Jeffery Bustillos MD Unavailable [phone] Shimon Schofield MD Unavailable Preethi Godoy NP Primary Care Provider [phone] Encounter Details Date Type Department Care Team (Late st Contact Info) Description 02/17/2025 Results Follow-Up [facility] Medical Group Primary Care at [address] [address] Ankit Pascal MD [address] [place] [address] [address] [place] [address] Urine culture Urine, clean voided [...] on file 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 2:24 AM ELECTRICAL INSTRUMENT MAKER Gender Identity Not on file Sexual Orientation Not on file 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 Not on file Not on file documented as of this encounter Plan of Treatment Not on file documented as of this encounter Visit Diagnoses Not on filedocumented in this encounter Care Teams Rayon Coner Relationship Specialty Start Date End Date Preethi Godoy NP [address] [facility] [address] [place] [address] PCP - General Family Medicine 08/25/24 Kath Shepherd MD [address] [place] [address] Consulting Physician Gastroenterology 07/22/19 Peter Ya MD [address] [place] [address] Jewelry Mold Maker Cardiology 07/22/19 Vitaly Ledesma MD [address] [place] [address] Consulting Physician Neurology 07/22/19 Joshua Butterfield MD [address] [place] [address] Consulting Physician Urology 07/03/23 Jeffery Bustillos MD [address] [facility] [address] [facility] 102 [place] [address] Consulting Physician Cardiovascular Disease 02/06/24 Shimon Schofield MD 4600 [facility] 120 [place] [address] Consulting Physician Vascular Surgery 02/06/24 documented as of this encounter
--- OUTSIDE RECORDS SUMMARY | 2025-04-13 09:28 | XMS_ITS | Encounter Summary ---
Author Organization [facility] Healthcare Address [address] [place] [address] Care Team Providers Care Heel Coverer Machine Operator Name Role Phone Kath Shepherd MD Unavailable [phone] Peter Ya MD Unavailable [phone] Vitaly Ledesma MD Unavailable [phone] Joshua Butterfield MD Unavailable [phone] Jeffery Bustillos MD Unavailable [phone] Shimon Schofield MD Unavailable Preethi Godoy NP Primary Care Provider [phone] Encounter Details Date Type Department Care Team (Late st Contact Info) Description 04/12/2025 Results Follow-Up [facility]ient [facility] at [address] [address] Gladys Valdovinos NP [address] [place] [address] [address] [place] [address] Aerobic and anaerobic culture and [...] on file 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 2:24 AM CORNER FORMER Gender Identity Not on file Sexual Orientation Not on file 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 [employer]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 [...] on filedocumented in this encounter Care Teams Heel Coverer Machine Operator Relationship Specialty Start Date End Date Preethi Godoy NP [address] [facility] [address] [place] [address] PCP - General Family Medicine 08/25/24 Kath Shepherd MD [address] [place] [address] Consulting Physician Gastroenterology 07/22/19 Peter Ya MD [address] [place] [address] Detective Cardiology 07/22/19 Vitaly Ledesma MD [address] [place] [address] Consulting Physician Neurology 07/22/19 Joshua Butterfield MD [address] [facility] [address] [place] [address] Consulting Physician Urology 07/03/23 Jeffery Bustillos MD [address] [facility] [address] [place] [address] Consulting Physician Cardiovascular Disease 02/06/24 Shimon Schofield MD [address] [facility] [address] [place] [address] Consulting Physician Vascular Surgery 02/06/24 documented as of this encounter
--- OUTSIDE RECORDS SUMMARY | 2025-04-13 09:28 | XMS_ITS | Encounter Summary ---
Author Organization [facility] Address [address] [place] [address] Care Team Providers Care Non Destructive Evaluation Technician Name Role Phone John Kimbrough MD Primary Care Provider Kath Shepherd MD Unavailable [phone] Peter Ya MD Unavailable [phone] Vitaly Ledesma MD Unavailable [phone] Anayeli Lee MD Primary Care Provider Joshua Butterfield MD Unavailable [phone] Jeffery Bustillos MD Unavailable [phone] Shimon Schofield MD Unavailable Preethi Godoy NP Primary Care Provider [phone] Encounter Details Date Type Department Care Team (Late st Contact Info) Description 03/26/2019 Documentation [facility] [address] [place] [address] Kaykay Jason, TEDDY Social History Tobacco Use Types Packs/Day Years Used Date Smoking Tobacco: Former Smokeless Tobacco: Never Alcohol Use Standard Drinks/Week Comments No 0 (1 standard drink = 0.6 oz pur e alcohol) Sex and Gender Information Value Date Recorded Sex Assigned at Not on file 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 2:24 AM COVER ASSEMBLER Gender Identity Not on file Sexual Orientation Not on file documented as of this encounter Plan of Treatment Not on file documented as of this encounter Visit Diagnoses Not on filedocumented in this encounter Additional Health Concerns Infection Onset Date Last Indicated Resolved Time COVID: Suspected 08/21/2021 08/21/2021 08/21/2021 11:38 AM COVER ASSEMBLER COVID: Suspected 11/14/2024 11/14/2024 11/14/2024 10:49 AM COVER ASSEMBLER COVID: Suspected 11/14/2024 11/14/2024 11/14/2024 3:33 PM COVER ASSEMBLER RSV, droplet 11/14/2024 11/14/2024 11/21/2024 3:07 AM COVER ASSEMBLER COVID: Suspected 12/30/2024 12/30/2024 12/30/2024 7:54 PM CDT documented as of this encounter Care Teams Non Destructive Evaluation Technician Relationship Specialty Start Date End Date John Kimbrough MD PCP - General 11/08/16 07/02/23 Anayeli Lee MD [address] [place] [address] PCP - General Family Medicine 07/03/23 08/24/24 Preethi Godoy NP [address] [address] PCP - General Family Medicine 08/25/24 Kath Shepherd MD [address] [place] [address] Consulting Physician Gastroenterology 07/22/19 Peter Ya MD [address] [place] [address] Chief Deputy Clerk/Bailiff Cardiology 07/22/19 Vitaly Ledesma MD [address] [place] [address] Consulting Physician Neurology 07/22/19 Joshua Butterfield MD [address] [facility] [address] [place] [address] Consulting Physician Urology 07/03/23 Jeffery Bustillos MD [address] [facility] [address] [place] [address] Consulting Physician Cardiovascular Disease 02/06/24 Shimon Schofield MD [address] [address] Consulting Physician Vascular Surgery 02/06/24 documented as of this encounter
--- OUTSIDE RECORDS SUMMARY | 2025-04-13 09:28 | XMS_ITS | Continuity of Care Document ---
Author Name [facility] Organization [facility] Care Team Providers Care Flight Purser Name Role Phone [facility] Unavailable Unavailable Encounters Combined list of: 1) Encounters from [facility] facilities going backup to the last 18 months, not all [facility] inpatient encounters are included; 2) Encounters from the Department of [facility] facilities going backup to 280 months. Location Location Details Encounter Type Encounter Number Reason For Visit Attending Provider ADM Date DC Date Status Disposition Source [facility] Outpatient Encounter [id number] 07/27 [facility]
--- OUTSIDE RECORDS SUMMARY | 2025-04-13 09:28 | XMS_ITS | Referral Summary ---
Author Organization [facility] Address [address] [place] [address] Care Team Providers Care Hand Shoe Cutter Name Role Phone Kath Shepherd MD Unavailable Peter Ya MD Unavailable Aziza Ledesma MD Unavailable Joshua Butterfield MD Unavailable Jeffery Bustillos MD Unavailable [phone] Shimon Schofield MD Unavailable Preethi Godoy NP Primary Care Provider Encounters Date Type Department Care Team Description 04/12/2025 Results Follow-Up [facility] at [address] [phone] Gladys Valdovinos NP Aerobic and anaerobic culture and gram stain Wound Buttocks, right, Colleen (yeast) culture Lesion Buttocks, right 04/10/2025 12:55 PM CDT - 04/10/2025 11:59 PM CDT Hospital Encounter [address] [address] Incidental lung nodule Discharge Disposition: Discharge to home or self care 04/07/2025 Results Follow-Up [facility] Primary Care at [address] [phone] Ilana Powers NP Urinalysis reflex to microscopic and culture Urine, in and out catheter, Urinalysis, microscopic only 04/06/2025 11:24 AM CDT - 04/06/2025 11:59 PM CDT Hospital Encounter [address] [address] Local skin infection Discharge Disposition: Discharge to home or self care 04/06/2025 10:42 AM CDT - 04/06/2025 11:59 PM CDT Hospital Encounter [address] [address] Recurrent UTI; Altered mental status, unspecified altered mental status type Discharge Disposition: Discharge to home or self care 04/06/2025 11:00 AM CDT Office Visit [facility] at [address] [phone] Sandrita Daugherty NP Local skin infection (Primary Dx); Contact dermatitis due to plants, except food, unspecified contact dermatitis type 04/06/2025 10:45 AM CDT Lab [facility] Outpatient Lab at [address] [phone] 04/04/2025 Telephone [facility] Primary Care at [address] [phone] Preethi Godoy NP Symptom Based Call 03/31/2025 Telephone [facility] Primary Care at [address] [phone] Preethi Godoy NP Medical Question/Miscellane ous 03/18/2025 Results Follow-Up [facility] Primary Care at [address] [phone] Ilana Powers NP Urinalysis reflex to microscopic and culture Urine, in and out catheter, Urinalysis, microscopic only, Urine culture Urine, in and out catheter 03/18/2025 Orders Only [facility] Primary Care at [address] [phone] Ilana Powers NP Acute cystitis without hematuria (Primary Dx) 03/18/2025 11:49 AM CDT - 03/18/2025 11:59 PM CDT Hospital Encounter [address] [address] Recurrent UTI Discharge Disposition: Discharge to home or self care 03/18/2025 12:00 PM CDT Lab [facility] Outpatient Lab at [address] [phone] 03/18/2025 Nurse Triage [facility] Primary Care at [address] [phone] Love Piña RN Recurrent UTI (Primary Dx) 03/03/2025 9:58 AM CDT - 03/03/2025 11:59 PM CDT Hospital Encounter [facility] ([facility]) [address] [place] [address] Amyloid myopathy (HCC) Discharge Disposition: Discharge to home or self care 02/25/2025 8:36 AM CDT - 02/25/2025 11:59 PM CDT Hospital Encounter [address] [address] Acute cystitis with hematuria Discharge Disposition: Discharge to home or self care 02/25/2025 8:45 AM CDT Lab [facility] Outpatient Lab at [address] [phone] Acute hemorrhagic cystitis (Primary Dx) 02/21/2025 11:45 AM CDT Office Visit [facility] Primary Care at [address] [phone] Ankit Pascal MD Acute cystitis with hematuria (Primary Dx) 02/21/2025 Nurse Triage [facility] Primary Care at [address] [phone] Preethi Godoy NP 02/17/2025 Results Follow-Up [facility] Primary Care at [address] [phone] Ankit Pascal MD Urine culture Urine, clean voided 02/15/2025 4:29 PM CDT - 02/15/2025 11:59 PM CDT Hospital Encounter [address] [address] Confusion Discharge Disposition: Discharge to home or self care 02/15/2025 4:15 PM CDT Office Visit [facility] Primary Care at [address] [phone] Ankit Pascal MD Acute cystitis with hematuria (Primary Dx); Confusion 02/15/2025 Nurse Triage [facility] Primary Care at [address] [phone] Preethi Godoy NP 02/09/2025 Telephone [facility] Primary Care at [address] [phone] Preethi Godoy NP Medication Request 01/28/2025 Telephone [facility] Cardiology [address] [facility] [address] [place] [phone] Madai Enrique NP 01/28/2025 Orders Only [facility] Cardiology [address] [facility] [address] [place] [phone] Madai Enrique NP Amyloid myopathy (HCC) (Primary Dx); Mitral valve insufficiency, unspecified etiology; Incidental lung nodule 01/23/2025 Results Follow-Up [facility] Primary Care at [address] [phone] Ankit Pascal MD Urinalysis reflex to microscopic and culture Urine, Urinalysis, microscopic only 01/21/2025 11:15 AM CDT Ancillary Procedure [facility] Cardiology at [address] [place] [address] Coronary artery disease involving coronary bypass graft of [place] heart, unspecified whether angina present; Fatigue, unspecified type; Hypotension, unspecified hypotension type 01/19/2025 12:03 PM CDT - 01/19/2025 11:59 PM CDT Hospital Encounter [address] [address] Recurrent UTI Discharge Disposition: Discharge to home or self care 01/19/2025 Results Follow-Up [facility] Primary Care at [address] [phone] Ankit Pascal MD CBC with auto differential, Differential, auto 01/19/2025 12:15 PM CDT Lab [facility] Outpatient Lab at [address] [phone] 01/18/2025 11:20 AM CDT - 01/18/2025 11:59 PM CDT Hospital Encounter [place] [id number] CAP (community acquired pneumonia) Discharge Disposition: Discharge to home or self care 01/18/2025 Results Follow-Up [facility] Primary Care at [address] [phone] Ankit Pascal MD XR Chest Pa Lateral 2 Views 01/18/2025 11:30 AM CDT Lab [facility] Outpatient Lab at [address] [phone] KAYLA (generalized anxiety disorder) (Primary Dx); Benign prostatic hyperplasia with urinary retention 01/18/2025 11:45 AM CDT Ancillary Procedure [facility] Imaging at [address] [phone] 01/18/2025 10:30 AM CDT Office Visit [facility] Primary Care at [address] [phone] Ankit Pascal MD Hospital discharge follow-up (Primary Dx); CAP (community acquired pneumonia); Recurrent UTI from Last 3 Months Allergies No known active allergies Medications coenzyme Q10 10 mg capsule Take 2 capsules (20 mg total) by mouth every morning Active kmewv-0-vvo-ep a-dpa-fish oil 1,050-1,200 mg capsule Take 1 [...] EVERY DAY WITH BREAKFAST 100 tablet 1 05/21/20 25 Active metoprolol tartrate (LOPRESSOR) 25 mg [...] day for 10 days 22 g 04/06/20 025 Active hydrocortisone 2.5 % ointmentIndica tions:Contact dermatitis due to plants, except food, unspecified contact dermatitis type Apply topically 2 (two) times a day as needed for rash for up to 10 days 30 g 04/06/20 025 Active nystatin cream Apply topically 2 [...] daily 90 tablet 1 10/28/19 023 Discontinued mupirocin (BACTROBAN) 2 % ointmentIndica tions:Skin tear of left elbow without complication, initial encounter,Skin tear of left forearm without complication, initial encounter Apply topically 3 (three) times a day 22 g 05/06/20 025 Discontinued(T herapy completed) nitrofurantoin monohydrate (MACROBID) 100 mg capsuleIndicat ions:Urinary Tract/Genitour inary Infection Take 1 capsule (100 mg total) by mouth 2 (two) times a day for 7 days 14 capsule 03/18/20 25 025 Hospital, Clinic, or Other Facility Administered Medication Ordered Dose Route Frequency Start Date End Date Status [facility]LOC[facility]IN [facility] BMS-296298/placebo ([id number]) capsule 4 capsuleIndications:Crohn' s disease of both small and large intestine with other complication (HCC) 4 capsule oral 2 times daily 05/21/2022 [facility]-049935/placebo ([id number]) capsule 4 capsuleIndications:Crohn' s disease of both small and large intestine with other complication (HCC) 4 capsule oral 2 times daily 06/18/2022 Active [facility] BMS-043028/placebo ([id number]) capsule 4 capsuleIndications:Crohn' s disease of both small and large intestine with other complication (HCC) 4 capsule oral 2 times daily 07/09/2022 Active [facility] BMS-892656/placebo ([id number]) capsule 4 capsuleIndications:Crohn' s disease of both small and large intestine with other complication (HCC) 4 capsule oral 2 times daily 08/07/2022 Active [facility] BMS-629842/placebo ([id number]) capsule 4 capsuleIndications:Crohn' s disease of both small and large intestine with other complication (HCC) 4 capsule oral 2 times daily 09/19/2022 Active [facility] BMS-805257/placebo ([id number]) capsule 4 capsuleIndications:Crohn' s disease of both [...] modification Assessment & Plan (10/03/2023 1:12 PM MIXER BLENDER): Chronic. Due to prior peripheral arterial disease. [...] urologist Assessment & Plan (10/03/2023 1:12 PM MIXER BLENDER): Chronic. Continue medication care per Urology Assessment & Plan (07/03/2023 5:22 PM CDT): Follows with [facility] Dr. Butterfield. Patient on finasteride and does intermittent straight catheterization Protein-calorie malnutrition, mild 07/03/2023 Overview (07/03/2023): Patient with low BMI. Less protein level was low. Monitor weight Assessment & Plan (02/06/2024 4:55 PM CDT): Patient has had borderline protein calorie malnutrition. Monitor his protein levels on labs. Encourage adequate nutrition. Avoid additional weight loss Assessment & Plan (10/03/2023 1:12 PM MIXER BLENDER): Chronic. BMI remains at the lower end arrange. Encouraged adequate nutrition. Monitor History of gout 07/03/2023 Assessment & Plan (02/06/2024 4:55 PM CDT): Chronic. Denies history of recent flares. Continue allopurinol for prophylaxis. Check uric acid Assessment & Plan (10/03/2023 1:12 PM MIXER BLENDER): Chronic. Denies any history of gout in [...] 03/14/2023 Assessment & Plan (10/03/2023 1:13 PM MIXER BLENDER): Chronic. May occasionally increase in size. Minimal pain. Has deferred elective repair in the past Persistent atrial fibrillation 12/04/2021 Assessment & Plan (11/23/2024 1:36 PM MIXER BLENDER): Rate controlled in office, continuing follow up with Cardiology. Assessment & Plan (03/01/2024 7:51 AM CDT): Stable continue metoprolol. Assessment & Plan (02/06/2024 4:55 PM CDT): Chronic. Controlled rate with metoprolol. Continue. Continue aspirin for stroke prophylaxis Assessment & Plan (10/03/2023 1:12 PM MIXER BLENDER): Chronic. Continue risk factor modification. Continue ASA [...] Monitor Assessment & Plan (10/03/2023 1:11 PM MIXER BLENDER): Chronic. Denies significant worsening. No agitation recently. [...] agitation Cerebral amyloid angiopathy ([facility]) 02/15/2020 Assessment & Plan (02/06/2024 4:54 PM CDT): Chronic. Memory has worsened slightly in the last year. He does have some fluctuations at times. No real agitation. Target good blood pressure control. Continue aspirin for his other issues. Would be cautious with more aggressive anticoagulation given history of amyloid angiopathy Assessment & Plan (10/03/2023 1:11 PM MIXER BLENDER): Chronic. Denies any progression of symptoms Assessment & Plan (07/03/2023 5:18 PM CDT): Chronic. Control blood pressure and modify risk factors as able. Continue aspirin given AFib but would be cautious with stronger anticoagulants given increased bleeding risk with cerebral amyloid angiopathy Peripheral artery disease 09/10/2019 Overview (09/10/2019): Added automatically from request for surgery [id number] Assessment & Plan (09/03/2024 10:57 AM MIXER BLENDER): Stable lower extremity occlusive disease. Continue risk [...] duplex. Assessment & Plan (10/03/2023 1:11 PM MIXER BLENDER): Chronic. Denies recent claudication symptoms. Continue ASA, statin and Pletal Assessment & Plan (07/03/2023 5:22 PM CDT): Chronic. 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 Denies current sores on his feet. Follows with Podiatry in [place]. On cilostazol Iron deficiency anemia due to [...] 02/17/2019 Assessment & Plan (11/23/2024 1:35 PM MIXER BLENDER): BP normal in office, continuing current regimen. [...] dehydrate Assessment & Plan (10/03/2023 1:10 PM MIXER BLENDER): Chronic. Blood pressure controlled. Continue current prescription [...] (01/26/2019): Added automatically from request for surgery [id number] Assessment & Plan (02/06/2024 4:52 PM CDT): Chronic. Disease has been stable. Minimal symptoms. He does have to be cautious with eating too many fruits and vegetables as he notes this does cause some GI distress. He remains controlled with Skyrezi and hydroxychloroquine. He will continue Assessment & Plan (10/03/2023 1:10 PM MIXER BLENDER): Chronic. Symptomatically improved per patient. Continue medication and care per GI Assessment & Plan (07/03/2023 5:20 PM CDT): Chronic. Follows with Gastroenterology. On scar oz and sulfasalazine. Continue medication and care per them CAD (coronary artery disease) 12/04/2018 Assessment & Plan (09/03/2024 10:57 AM MIXER BLENDER): Stable continue ASA and Lasix Assessment & Plan (02/06/2024 4:51 PM CDT): Chronic. Denies chest pain. Continue risk factor modification with statin, aspirin, blood pressure control. Target LDL less than 70 Assessment & Plan (10/03/2023 1:10 PM MIXER BLENDER): Chronic. Denies chest pain. Follows with cardiology. [...] 12/30/2017 Assessment & Plan (08/25/2024 4:06 PM MIXER BLENDER): Updated labs ordered, Hemoglobin was 9 in [...] infusions Assessment & Plan (10/03/2023 1:10 PM MIXER BLENDER): Chronic. Follows with GI and Hematology. Has received iron infusions. Often does B12 injections Assessment & Plan (07/03/2023 5:15 PM CDT): Chronic. Follows with GI and Hematology. Received iron infusions Hypercholesterolemia 02/05/2011 Assessment & Plan (09/03/2024 10:57 AM MIXER BLENDER): Stable continue statin therapy. Assessment & Plan (03/01/2024 7:50 AM CDT): Stable continue statin therapy. Assessment & Plan (02/06/2024 4:53 PM CDT): Chronic. Tolerates atorvastatin. Continue. Check cholesterol level and adjust for an LDL goal of at least less than 70 with optimal less than 55 Assessment & Plan (10/03/2023 1:10 PM MIXER BLENDER): Chronic. Tolerates current prescription medication. 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 [employer] Araceli 12/09/2020 [id number] / [id number] / [id number] Procedures Procedure Name Priority Date/Time Associated Diagnosis [...] artery disease involving coronary bypass graft of [place] heart, unspecified whether angina present Fatigue, unspecified [...] (community acquired pneumonia) COLONOSCOPY 10/21/2024 10:56 AM MIXER BLENDER CTA ABDOMEN PELVIS W WO CONTRAST Schedule [...] - 1.30 mg/dL Comment:Testing performed by : [facility], [address] [place] [address]., [id number] Blood 04/10/2025 1:29 PM CDT 04/10/2025 1:29 PM CDT Preethi Godoy NP POINT OF CARE TEST ORDERABLES Fi nal Result [facility] [address] [facility] Department [place] [address] * (ABNORMAL) Colleen (yeast) culture Lesion Buttocks, right (04/06/2025 11:24 AM CDT) Report Final Report: Moderate Colleen albicans (.) Comment:Testing performed by : [facility], [address] [place]., [address] Organism COLLEEN ALBICANS CERNER Lesion (Buttocks, right) 04/06/2025 11:24 AM CDT 04/06/2025 10:12 PM CDT Narrative CERNER - 04/12/2025 6:56 AM CDT Interpretation data: This culture is NOT intended for the detection of filamentous fungi, endemic mycosis, or Cryptococcus. If detected, yeast will be reported and identified. Routine susceptibility is not performed, but if required, please contact the Microbiology Laboratory at . us Sandrita Daugherty NP LAB MICROBIOLOGY - [facility] Final Result [facility] [id number] Department [place] [address] * (ABNORMAL) Urinalysis reflex to microscopic and [...] tendency for uric acid stone formation. Source: [facility] [employer] Current Interpretive Data was last revised on [...] Reflex to microscopic UA will be performed. [facility] Urine, in and out catheter 04/06/2025 10:42 AM CDT 04/06/2025 8:18 PM CDT us Preethi Godoy NP LAB MICROBIOLOGY - GENERAL ORDER MANJINDER Final Result Performing Organization Address [facility] de Phone Number TRAVIS [place]OWN[place] [address] [facility] [place] [address] * (ABNORMAL) Urinalysis, microscopic only (04/06/2025 10:42 AM CDT) WBC, ur 6-10(A) 0 - 5 /HPF RBC, ur 0-2 0 - 2 /HPF [facility] Epithelial cells, squamous, ur 1-5 0 - 5 /HPF [facility] Bacteria, ur 1+(A) [facility] Culture Reflex Comment Reflex conditions for urine culture (WBC >10) not met. [facility] Urine, in and out catheter 04/06/2025 10:42 AM CDT 04/06/2025 8:18 PM CDT us Preethi Godoy [employer] INSURANCE AGENT LAB URINE ORDERABLES Final Resul t Performing Organization Address [facility] de Phone Number TRAVIS [place] [address] [facility] [place] [address] * (ABNORMAL) Urinalysis reflex to microscopic and culture Urine, in and out catheter (03/18/2025 11:49 AM CDT) Color, ur Yellow Yellow Clarity, ur Turbid(A) Clear [facility] Specific gravity, ur 1.014 1.003 - 1.030 [facility] pH, urine 6.0 [facility] Comment: Interpretive Data U rine pH is affected by diet, medications, systemic acid-base disturbances, and renal tubular function. pH may affect urinary stone formation. For example, urine pH below 6.0 may help reduce the tendency for calcium phosphate stones and pH greater than 6.0 may reduce the tendency for uric acid stone formation. Source: [facility] Current Interpretive Data was last revised [...] ORDER MANJINDER Final Result Performing Organization Address [facility] de Phone Number SEBASTIANYUMIKO [place]OWN[place] [address] Department [employer] [place] [address] * (ABNORMAL) Urinalysis, microscopic only (03/18/2025 11:49 AM CDT) WBC, ur >50(A) 0 - 5 /HPF RBC, ur 0-2 0 - 2 /HPF [facility] Epithelial cells, squamous, ur 1-5 0 - 5 /HPF [facility] Bacteria, ur 2+(A) [facility] Mucous, ur Present(A) [facility] Culture Reflex Comment Reflex to urine culture will be performed. [facility] Urine, in and out catheter 03/18/2025 11:49 AM CDT 03/18/2025 3:22 PM CDT us Preethi Godoy NP LAB URINE ORDERABLES Final Resul t Performing Organization Address [facility] Co de Phone Number TRAVIS [place] [address] [facility] [employer] [place] [address] * (ABNORMAL) Urine culture Urine, in and out catheter (03/18/2025 11:49 AM CDT) Report Final Report: Greater than or equal to 100,000 colonies/mL of Klebsiella pneumoniae Greater than or equal to 100,000 colonies/mL of Klebsiella pneumoniae #2 (.) Comment:Testing performed by : [facility], [address] [place]., [address] Organism KLEBSIELLA PNEUMONIAE [facility] Organism KLEBSIELLA PNEUMONIAE [facility] Urine, in and out catheter 03/18/2025 11:49 AM CDT 03/18/2025 6:29 PM CDT Narrative TRAVIS BROWNLEE - 03/20/2025 10:30 AM CDT Urine culture reflexed based upon urinalysis results. Testing performed by [facility] Microbiology Laboratory ([phone]) Organism Antibiotic Method Susceptibility Klebsiella pneumoniae Ampicillin [...] - GENERAL ORDER MANJINDER Final Result [facility] [address] Department [place] [address] * MRI Cardiac M&F W WO Contrast [...] it. Electronically signed by: Ludwig Talley M.D. us Madai Enrique NP IMG MRI PROCEDURES Final [...] tendency for uric acid stone formation. Source: [facility] [employer] Current Interpretive Data was last revised on [...] - GENERAL ORDERABLES Final Result [facility] [address] Department [place] [address] * (ABNORMAL) Urinalysis, microscopic only (02/25/2025 8:36 AM CDT) WBC, ur >50(A) 0 - 5 /HPF RBC, ur 0-2 0 - 2 /HPF [facility] Epithelial cells, squamous, ur 1-5 0 - 5 /HPF [facility] Bacteria, ur Trace(A) [facility] Mucous, ur Present(A) [facility] Hyaline casts, ur 1-5 0 - 10 /LPF [facility] Culture Reflex Comment Reflex to urine culture will be performed. [facility] Urine 02/25/2025 8:36 AM CDT 02/25/2025 3:09 PM CDT Ankit Pascal MD LAB URINE ORDERABLES Final Result Performing Organization Address City/State/[facility] Co de Phone Number TRAVIS [place] [address] Department [place] [address] * (ABNORMAL) Urine culture Urine (02/25/2025 8:36 AM CDT) Report Final Report: Greater than or equal to 100,000 colonies/mL of Klebsiella pneumoniae Plus growth of clinically insignificant bacterial alton. (.) Comment:Testing performed by : [facility], [address] [place]., [address] Organism KLEBSIELLA PNEUMONIAE [facility] Organism PLUS GROWTH OF CLINICALLY INSIGNIFICANT ALTON. [facility] Urine 02/25/2025 8:36 AM CDT 02/25/2025 6:25 PM CDT Narrative [facility] - 02/27/2025 11:00 AM CDT Urine culture reflexed based upon urinalysis results. Testing performed by [facility] Microbiology Laboratory ([phone]) Organism Antibiotic Method Susceptibility Klebsiella pneumoniae Ampicillin [...] MICROBIOLOGY - GENERAL ORDERABLES Final Result [facility] [address] Department [place] [address] * (ABNORMAL) POCT UA, AUTO W/O SCOPE (02/15/2025 4:30 PM CDT) Color, Urine, POC Yellow Clarity, ur, POC Cloudy(A) Clear Glucose, ur, POC Negative Negative Bilirubin, ur, POC Negative Negative Ketones, ur, POC Negative Negative Specific [place], POC 1.020 1.003 - 1.030 Blood, ur, [...] bacterial alton. (.) Comment:Testing performed by : [facility], [address] [facility], [place]., [address] Organism KLEBSIELLA PNEUMONIAE [facility] Organism PLUS GROWTH OF CLINICALLY INSIGNIFICANT ALTON. TRA[facility] BROWNLEE Urine, clean voided 02/15/2025 4:29 PM CDT 02/15/2025 10:46 PM CDT Narrative TRAVIS - 02/18/2025 6:27 AM CDT Testing performed by [facility] Microbiology Laboratory ([phone]) Organism Antibiotic Method Susceptibility Klebsiella pneumoniae Ampicillin [...] LAB MICROBIOLOGY - GENERAL ORDERABLES Final Result [facility] [id number] Department [place] [address] * Lipid panel (01/26/2025 1:34 PM CDT) Blood Historical Provider MD LAB BLOOD ORDERABLES Laly l Result Performing Organization Address City/[facility]/ZIP Co de Phone Number EXTERNAL LAB * TRANSTHORACIC ECHO (TTE) COMPLETE W DOPPLER/CF WO CONTRAST (01/21/2025 11:37 AM CDT) Estimated EF 50-55 % CONS SCIMAGE EF Mod BP 56 % CONS SCIMAGE Anatomical Region Laterality Modality Ultrasound 01/21/2025 11:2 0 AM CDT Narrative 01/21/2025 12:31 PM CDT [facility] Medical Group Cardiology [facility] [address], [place] [address] P:[phone] P:[phone] Echocardiographic Report Patient Name: AZIZA LOYA O : 1945 Study Date: 01/21/2025 11:20:02 AM Gender: M Tech: SW Location: [facility] Ref Provider: MADAI ENRIQUE Height(Cm): [...] FINDINGS: Interpretation Site: Exam was interpreted at [facility]. Left Ventricle: Mild concentric left ventricular [...] Procedure Note Harley Bowser MD - 01/21/2025 [facility] Medical Group Cardiology [address], [address], [place] [address] P:[phone] P:[phone] Echocardiographic Report Patient Name: AZIZA LOYA O [...] FINDINGS: Interpretation Site: Exam was interpreted at [facility]. Left Ventricle: Mild concentric left ventricular [...] tendency for uric acid stone formation. Source: S-cubism Current Interpretive Data was last revised on 2017 Protein, ur ql Trace Negative [facility] Glucose, ur ql Negative Negative [facility] Ketones, ur Negative Negative [facility] Bilirubin, ur Negative Negative [facility] Blood, ur Negative Negative [facility] Urobilinogen, ur <2.0 <2.0 mg/dL [facility] Nitrite, ur Negative Negative [facility] Leukocyte esterase, ur 1+(A) Negative [facility] UA reflex comment Reflex to microscopic UA will be performed. [facility] Urine 01/19/2025 12:0 3 PM CDT 01/19/2025 7:25 PM CDT Ankit Pascal MD LAB MICROBIOLOGY - GENERAL ORDERABLES Final Result Performing Organization Address [facility] Co de Phone Number TRA[facility] [place] [phone] Department [place] [address] * (ABNORMAL) Urinalysis, microscopic only (01/19/2025 12:03 PM CDT) WBC, ur 6-10(A) 0 - 5 /HPF RBC, ur 0-2 0 - 2 /HPF [facility] Epithelial cells, squamous, ur 1-5 0 - 5 /HPF [facility] Bacteria, ur Trace(A) [facility] Culture Reflex Comment Reflex conditions for urine culture (WBC >10) not met. [facility] Urine 01/19/2025 12:0 3 PM CDT 01/19/2025 7:25 PM CDT Ankit Pascal MD LAB URINE ORDERABLES Final Result Performing Organization Address [facility] Co de Phone Number [facility] [place] [address] Department [place] [address] * XR Chest Pa Lateral 2 Views [...] Brown Ennis M.D. RW T: Report ID: [id number] Reading Location: [id number] Procedure Note Brown Ennis MD - 01/18/2025 [...] Brown Ennis M.D. RW T: Report ID: [id number] Reading Location: [id number] us Ankit Pascal MD IMG XR PROCEDURES Final Res ult * (ABNORMAL) Differential, auto (01/18/2025 11:20 AM CDT) Neutrophil abs 7.11(H) 1.50 - 6.50 K/cumm Imm gran abs 0.04 0.00 - 0.10 K/cumm [facility] Lymphocyte abs 1.01 0.80 - 3.30 K/cumm [facility] Monocyte abs 0.86(H) 0.20 - 0.80 K/cumm [facility] Eosinophil abs 0.26 0.00 - 0.50 K/cumm [facility] Basophil abs 0.06 0.00 - 0.10 K/cumm [facility] Neutrophil pct 76.2 % [facility] Comment: Interpretive Data Percent cell count reference ranges are not reported, since discordance with absolute values may lead to misinterpretation of CBC data. Current Interpretive Data was last revised on 2017. Imm gran pct 0.4 % [facility] Comment: Interpretive Data Percent cell count reference ranges are not reported, since discordance with absolute values may lead to misinterpretation of CBC data. Current Interpretive Data was last revised on 2017. Lymphocyte pct 10.8 % [facility] Comment: Interpretive Data Percent cell count reference ranges are not reported, since discordance with absolute values may lead to misinterpretation of CBC data. Current Interpretive Data was last revised on 2017. Monocyte pct 9.2 % [facility] Comment: Interpretive Data Percent cell count reference ranges are not reported, since discordance with absolute values may lead to misinterpretation of CBC data. Current Interpretive Data was last revised on 2017. Eosinophil pct 2.8 % [facility] Comment: Interpretive Data Percent cell count reference ranges are not reported, since discordance with absolute values may lead to misinterpretation of CBC data. Current Interpretive Data was last revised on 2017. Basophil pct 0.6 % [facility] Comment: Interpretive Data Percent cell count reference ranges are not reported, since discordance with absolute values may lead to misinterpretation of CBC data. Current Interpretive Data was last revised on 2017. Blood 01/18/2025 11:2 0 AM CDT 01/18/2025 8:27 PM CDT us Ankit Pascal MD LAB BLOOD ORDERABLES Final Result [facility] [place] [id number] Department [place] [address] * (ABNORMAL) CBC with auto differential (01/18/2025 11:20 AM CDT) WBC 9.34 3.80 - 9.90 K/cumm Hgb 11.4(L) 13.0 - 17.5 g/dL [facility] Hct 37.5(L) 38.9 - 50.3 % [facility] Plt 284 150 - 400 K/cumm [facility] MPV 9.9 9.1 - 12.3 fL [facility] RBC 3.75(L) 4.30 - 5.80 M/cumm [facility] MCV 100.0(H) 81.3 - 96.4 fL [facility] MCH 30.4 27.1 - 33.3 pg [facility] MCHC 30.4(L) 32.3 - 35.7 g/dL [facility] RDW CV 13.7 11.1 - 14.9 % [facility] RDW SD 50.4(H) 35.7 - 48.1 fL [facility] NRBC abs 0.00 0.00 - 0.01 K/cumm [facility] Blood 01/18/2025 11:2 0 AM CDT 01/18/2025 8:27 PM CDT us Ankit Pascal MD LAB BLOOD ORDERABLES Final Result Performing Organization Address City/State/[facility] Co de Phone Number TRAVIS [phone] [facility] Department [place] [address] * Colonoscopy (10/21/2024 10:56 AM MIXER BLENDER) Anatomical Region Laterality Modality Other Narrative Procedure Note Kath Shepherd MD - 10/21/2024 10:56 AM CST [facility] Patient Name: Aziza Loya Procedure Date: 10/21/2024 10:56 AM Date of : 1945 Admit Type: Outpatient Age: 79 Gender: Male Attending MD: Kath Shepherd M.D. Room: [facility] ENDOSCOPY ROOM 3 Note Status: Addendum [...] The scope was passed under direct vision.The [facility] [id number] endoscope was introducedthrough the anus and [...] signed by Steven RAJPUT T: Report ID: [id number] Reading Location: [id number] Procedure Note Steven Ruano MD - 02/24/2024 [...] - Electronically signed by Steven Ruano M.D. T: Report ID: [id number] Reading Location: [place] [address] PROCEDURES Final Res [...] GEN ERAL [place] [address] [address] Department [place] [address] from Last 3 Months or Most Recently Relevant to Health Maintenance Insurance [facility] MEDICARE MEDICARE [facility] MEDICARE [facility] MEDICARE [facility] MEDICARE [facility] Advance Directives For more information, please contact: [phone] * Full Code (Latest Code Status on [...] 10:45 AM 05/17/2022 5:55 PM Care Teams Hand Shoe Cutter Relationship Specialty Start Date End Date Preethi Godoy NP [address] [facility] [address] [place] [address] PCP - General Family Medicine 08/25/24 Kath Shepherd MD [address] [place] [address] Consulting Physician Gastroenterology 07/22/19 Peter Ya MD [address] [place] [address] Speech Therapist Technician Cardiology 07/22/19 Aziza Ledesma MD [address] [place] [address] Consulting Physician Neurology 07/22/19 Joshua Butterfield MD [address] [place] [address] Consulting Physician Urology 07/03/23 Jeffery Bustillos MD [address] [place] [address] [address] [place] [address] Consulting Physician Cardiovascular Disease 02/06/24 [place] [address] [place] [address] Consulting Physician Vascular Surgery 02/06/24
--- OUTSIDE RECORDS SUMMARY | 2025-04-13 09:28 | XMS_ITS | Encounter Summary ---
Author Organization [facility] Address [address] [place] [address] Phone Care Team Providers Care Carpenter Repairer Name Role Phone John Kimbrough MD Primary Care Provider [phone] Kath Shepherd MD Unavailable [phone] Peter Ya MD Unavailable [phone] Vitaly Ledesma MD Unavailable [phone] Anayeli Lee MD Primary Care Provider Joshua Butterfield MD Unavailable [phone] Jeffery Bustillos MD Unavailable [phone] Shimon Schofield MD Unavailable Preethi Godoy NP Primary Care Provider [phone] Encounter Details Date Type Department Care Team (Late st Contact Info) Description 08/21/2021 Telephone [facility] Oncology [address] [facility] [address] [place] [id number] Maribel Shore CPhT Social History Tobacco Use [...] on file 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 2:24 AM SURG PHYSICIAN ASST Gender Identity Not on file Sexual Orientation Not on file 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 [employer] Not on file Not on file Not on file documented as of this encounter Plan of Treatment Not on file documented as of this encounter Visit Diagnoses Not on filedocumented in this encounter Additional Health Concerns Infection Onset Date Last Indicated Resolved Time COVID: Suspected 08/21/2021 08/21/2021 08/21/2021 11:38 AM SURG PHYSICIAN ASST COVID: Suspected 11/14/2024 11/14/2024 11/14/2024 10:49 AM SURG PHYSICIAN ASST COVID: Suspected 11/14/2024 11/14/2024 11/14/2024 3:33 PM SURG PHYSICIAN ASST RSV, droplet 11/14/2024 11/14/2024 11/21/2024 3:07 AM SURG PHYSICIAN ASST COVID: Suspected 12/30/2024 12/30/2024 12/30/2024 7:54 PM CDT documented as of this encounter Care Teams Carpenter Repairer Relationship Specialty Start Date End Date John Kimbrough MD PCP - General 11/08/16 07/02/23 Anayeli Lee MD [address] [place] [address] PCP - General Family Medicine 07/03/23 08/24/24 Preethi Godoy NP [address] [address] PCP - General Family Medicine 08/25/24 Kath Shepherd MD [address] [place] [address] Consulting Physician Gastroenterology 07/22/19 Peter Ya MD [address] [place] [address] Bond Manager Cardiology 07/22/19 Vitaly Ledesma MD [address] [place] [address] Consulting Physician Neurology 07/22/19 Joshua Butterfield MD [address] [place], [place] [id number] Consulting Physician Urology 07/03/23 Jeffery Bustillos MD [address] [facility] [address] [place] [address] Consulting Physician Cardiovascular Disease 02/06/24 Shimon Schofield MD [address] [address] Consulting Physician Vascular Surgery 02/06/24 documented as of this encounter
[2025-04-13 12:14] VITALS: BP 99/66; PULSE 80; TEMP 36.6; O2SAT 93
--- NOTE | 2025-04-13 12:16 | ECG_ITS ---
Test Date: 2025-04-13 14:10:05 Measurements Intervals [place] Rate: 91 P: 0 AR: 0 QRS: 72 QRSD: 102 T: 53 QT: 401 QTc: 494 Interpretive Statements ATRIAL FIBRILLATION WITH ABERRANT CONDUCTION OR VENTRICULAR PREMATURE COMPLEXES NONSPECIFIC ST & T-WAVE ABNORMALITY ABNORMAL ECG Electronically Signed On 04-13-2025 14:13:43 CDT by Harley Bowser M.D.
--- NOTE | 2025-04-13 12:20 | ED_ITS ---
HPI - Extremity Injury (Lower) General Chief Complaint: Skin/Abscess/Foreign Body <Renea Osborne APRN - Last Filed: 04/13/25 12:22> Stated Complaint: L foot infection <Renea Osborne APRN - Last Filed: 04/13/25 12:22> Time Seen by Provider: 04/13/25 12:00 <Renea Osborne APRN - Last Filed: 04/13/25 12:22> Focused HPI: Patient is a 79-year-old male who presents to the ER with complaints a left foot infection. He reports he has a die casting machine operator who advised him to come to the ER for IV antibiotics. Patient's reports he has been on oral antibiotics her approximately 1 and half weeks but his left foot infection has not improved. She reports he does not have a history of diabetes but has a history of Crohn's and high blood pressure. 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 GENERAL: Well-appearing, well-nourished, and in no acute distress. HEAD: Normocephalic, atraumatic. CHEST: Clear to auscultation. ?No respiratory distress. HEART: Regular rate and rhythm.? NEURO: ?Alert and oriented x3. Patient screened in triage and initial orders placed.? ?Additional care and disposition to be based upon?diagnostic testing and treatment. <Renea Osborne APRN - Last Filed: 04/13/25 12:22> History of Present Illness HPI Narrative: Agree with the above triage note. The patient saw his die casting machine operator, Dr. Paulina Gama, around 03/30/2025 and had the left great toenail removed. Approximately 1 week L began developing redness to the dorsum of the toe and foot. The patient was then started on doxycycline 100 mg b.i.d. on 04/08/2025 which she has been compliant with, however is not responding to the antibiotics. Patient saw his die casting machine operator and was advised to come to the ED for IV Zosyn and lab work. Additionally the patient's notes that the patient has an itchy rash to the volar aspect of his left 1st and forearm for the past 2 weeks after pulling weeds in the yard. They been using topical triamcinolone cream with improvement. There also reporting into a rash to the patient's buttock and groin which has been present for the past week or 2. They have been using a topical nystatin to the patient's buttock with improvement but not yet used on his groin. The patient is regularly straight cathed due to chronic urinary retention. Patient denies any drainage from the toe, fever, nausea vomiting, abdominal pain, dysuria, hematuria, flank pain. Patient has a history of CKD, CHF, AFib, seizure disorder, vascular dementia. Per at bedside patient is at his normal mental status. <Eve Del Valle PA-C - Last Filed: 04/14/25 02:52> Related Data Home Medications: Home Medications ?Medication ?Instructions ?Recorded ?Confirmed ?Last Taken ?Type allopurinol 100 mg tablet 100 mg PO HS 11/08/23 04/13/25 04/12/25 History aspirin 81 mg tablet 81 mg PO DAILY 11/08/23 04/13/25 04/13/25 History atorvastatin 10 mg tablet 10 mg PO QPM 11/08/23 04/13/25 04/12/25 History cilostazol 100 mg tablet 100 mg PO HS 11/08/23 04/13/25 04/12/25 History furosemide 40 mg tablet 40 mg PO DAILY 05/12/24 04/13/25 04/13/25 History ferrous sulfate 325 mg (65 mg 325 mg PO DAILY@0800 11/28/24 04/13/25 04/13/25 History iron) tablet (FeroSul) escitalopram oxalate 20 mg tablet 20 mg PO HS 01/04/25 04/13/25 04/12/25 History loperamide 2 mg capsule 2 mg PO Q1-3H PRN loose stool 01/05/25 04/13/25 04/12/25 History (Anti-Diarrheal (loperamide)) donepezil 10 mg tablet 5 mg PO DAILY 04/13/25 04/13/25 04/13/25 History metoprolol tartrate 25 mg tablet 75 mg PO HS 04/13/25 04/13/25 04/12/25 History <Renea Osborne, [place] - Last Filed: 04/13/25 12:22> Allergies/Adverse Reactions: Allergies Allergy/AdvReac Type Severity Reaction Status Date / Time No Known Allergies Allergy Verified 01/04/25 16:56 <Renea Osborne, AUTOMATIC GLOVE TURNER AND FORMER - Last Filed: 04/13/25 12:22> Review of Systems 2 Review of Systems: All systems reviewed & are unremarkable except as noted in HPI and below <Eve Del Valle PA-C - Last Filed: 04/14/25 02:52> COUNT INCLUDES THE [facility] Past Medical History Medical History: Medical History 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 Intermittent self-catheterization of bladder Cardiomyopathy Recurrent incisional hernia Atrial fibrillation with RVR Heart failure Chronic anemia Vascular dementia Seizures B12 deficiency Depression Gout Osteoarthritis Iron deficiency anemia Benign prostatic hyperplasia Kidney stones Chronic kidney disease, stage 3 Crohn's disease Hyperlipidemia Hypertension Peripheral vascular disease Coronary artery disease <Renea Osborne, AUTOMATIC GLOVE [employer]NER [employer] FORMER - Last Filed: 04/13/25 12:22> Surgical History Surgical History: Surgical History S/P CABG (coronary artery bypass graft) History of bilateral cataract extraction History of lithotripsy History of partial colectomy X2 for to bowel obstructions and fistula secondary to Crohn's disease. History of cholecystectomy History of vascular surgery Bilateral lower extremity stents. History of coronary artery bypass graft <Renea Osborne, AUTOMAT[employer] GLOVE [employer]MER - Last Filed: 04/13/25 12:22> Family History Family History: Family History Father Myocardial infarct Cerebrovascular accident Mother Breast cancer Sibling Crohn's disease <Renea Osborne, AUTOMAT[employer] GLOVE [employer]MER - Last Filed: 04/13/25 12:22> Social History Social History: Social History Social History: Surrogate decision maker: Sarah Oreilly, spouse. Code status: Do not resuscitate. Smoking packs per day: 2 Smoking cigarettes per day: 40.0 Years smoked: 25 Smoking pack-years: 50.00 Smoking status: Former smoker Tobacco type: cigarettes Second hand tobacco smoke exposure: No Alcohol intake: former Substance use: never Substance use type: does not use Do You Feel Safe in your Home?: Yes Lack of Transportation: No Lack of Food: Never True Current Housing: I Have Housing Concerned About Future Housing: No Difficulty Paying Gas/Electric Bills: No Difficulty Paying for Meds: No Currently Unemployed: No Education: Trade/Vocational Certificate Difficulty w/ Childcare or Family Care: No Additional living arrangements comments: The patient lives with his in [place]. Additional occupation/education comments: Retired from [employer]. Spiritual care concerns: No <Renea Osborne APRN - Last Filed: 04/13/25 12:22> Exam 2 Narrative: GENERAL: Well-appearing, well-nourished, and in no acute distress. HEAD: Normocephalic, atraumatic. EYES: EOMI. ENT: Nares clear, no rhinorrhea or epistaxis. Mucous membranes moist. NECK: Supple. CHEST: Clear to auscultation. No respiratory distress. HEART: Regular rate and rhythm. No murmur heard. Normal peripheral pulses. ABDOMEN: Soft, nontender, nondistended, normal active bowel sounds. No CVA tenderness EXTREMITIES: Normal range of motion. No edema. SKIN: Erythematous scaly rash to the volar aspect of the left forearm, patchy erythematous and scaly rash to the groin and buttock. No weeping. No crepitus. Negative Nikolsky's. Left foot with 4th toe amputation, great toe nail avulsed, warmth and erythema throughout the dorsum of the left foot, no crepitus, no fluctuance, no drainage, no necrosis. Left DP pulse dopplered NEURO: No focal deficits. <Eve Del Valle PA-C - Last Filed: 04/14/25 02:52> Course Vital Signs Vital signs: Vital Signs Temperature 97.6 F 04/13/25 09:15 Pulse Rate 87 04/13/25 09:15 Respiratory Rate 16 04/13/25 09:15 Blood Pressure 112/62 04/13/25 09:15 Pulse Oximetry 100 04/13/25 09:15 Temperature 98.2 F 04/13/25 22:00 Pulse Rate 78 04/13/25 22:00 Respiratory Rate 16 04/13/25 22:00 Blood Pressure 119/77 04/13/25 22:00 Pulse Oximetry 98 04/13/25 22:00 <Renea Osborne APRN - Last Filed: 04/13/25 12:22> Vital Signs Temperature 97.6 F 04/13/25 09:15 Pulse Rate 87 04/13/25 09:15 Respiratory Rate 16 04/13/25 09:15 Blood Pressure 112/62 04/13/25 09:15 Pulse Oximetry 100 04/13/25 09:15 Temperature 98.2 F 04/13/25 22:00 Pulse Rate 78 04/13/25 22:00 Respiratory Rate 16 04/13/25 22:00 Blood Pressure 119/77 04/13/25 22:00 Pulse Oximetry 98 04/13/25 22:00 <Eve Del Valle PA-C - Last Filed: 04/14/25 02:52> MDM - Extremity Injury (Lower) MDM Narrative Medical decision making narrative: 79-year-old male with history of AFib, hypertension, hyperlipidemia, Crohn's, CKD, seizure disorder, vascular dementia presents to the emergency department with at bedside due to concerns for left foot infection after his left great toenail was removed on 03/30/[address] Paulina Gama. Patient has been on doxycycline 100 mg b.i.d. for 6 days without improvement. Advised to come to the ED for IV antibiotics. Additionally they are reporting and itchy scaly rash to the left forearm after doing yard work 2 weeks ago and to the groin and buttock. Triage vitals are stable. Exam is notable for the above. Lab work shows no leukocytosis. Chemistries reveal an PREMA with a creatinine of 2.81 and BUN of 37. Most recent creatinine in November and December of this year were around 1.8-2.1. Urinalysis is indicative of urinary tract infection with greater than 100 white blood cells, 4+ bacteria and positive nitrates. Urine cultures pending. Pt does not clinically appear to have an obstructive uropathy with no abdominal pain or flank pain, no nausea or vomiting. Post void bladder scan shows 266 mL of urine after straight catheterization. Lactic acid normal 1.6 and CRP within normal limits. X-ray of the foot shows no acute abnormality of the left foot and no evidence of osteomyelitis. Venous duplex shows no evidence of DVT. Patient and were updated on results. Given mild PREMA in conjunction with known CHF, patient was given a small fluid bolus. Will refrain from Zosyn given PREMA. Discussed with hospitalist LEONID Reynolds who agrees to admission. Agrees to starting cefepime and vancomycin to cover UTI and cellulitis. Will also continue topical nystatin cream for tinea cruris and triamcinolone for contact dermatitis of the left arm. <Eve Del Valle PA-C - Last Filed: 04/14/25 02:52> Lab Data Result diagrams: 04/13/25 12:56 04/13/25 12:56 <Renea Osborne APRN - Last Filed: 04/13/25 12:22> Labs: Lab Results 04/13/25 Range/Units 12:56 WBC 9.4 (4.5-10.0) K/mm3 RBC 3.71 L (4.6-6.20) M/mm3 Hgb 11.6 L (14.0-18.0) g/dL Hct 36.0 L (42.0-52.0) % MCV 97.0 (80-100) fl MCH 31.3 (26-34) pg MCHC 32.2 (32-36) g/dl RDW 15.3 H (11.5-14.5) % Plt Count 206 (150-375) k/mm3 MPV 9.5 (7.4-10.4) fl Immature Gran % (Auto) 0.5 (0-0.5) % Neut % (Auto) 72.8 (45.5-73.1) % Lymph % (Auto) 13.5 L (18.3-44.2) % [place] % (Auto) 8.4 (2.6-8.5) % Eos % (Auto) 4.1 (0-4.4) % Baso % (Auto) 0.7 (0.2-1.2) % Lymph # (Auto) 1.27 (0.9-3.2) K/mm3 [place] # (Auto) 0.8 H (0.1-0.6) K/mm3 Eos # (Auto) 0.4 H (0-0.3) K/mm3 Baso # (Auto) 0.1 (0.0-0.1) K/mm3 Abs Immat Gran (auto) 0.05 H (0.00-0.031) K/mm3 Absolute Neuts (auto) 6.9 H (1.3-6.7) K/mm3 Absolute Nucleated RBC 0.000 (0.0-0.012) K/mm3 Nucleated RBC % 0.0 (0.0-0.2) % PT 15.4 H (11.1-14.7) Seconds INR 1.2 APTT 31.7 (22.3-36.8) Seconds Sodium 140 (137-145) mmol/L Potassium 3.5 (3.4-5.0) mmol/L Chloride 104 (98-107) mmol/L Carbon Dioxide 25 (22-30) mmol/L Anion Gap 11 (4-12) mmol/L BUN 37 H D (9-20) mg/dL Creatinine 2.81 H (0.7-1.3) mg/dL Estim Creat Clear Calc 21 ml/min Estimated GFR 22 L (59 - ) Glucose 98 (65-110) mg/dL Lactic Acid 1.6 (0.7-2.0) mmol/L Calcium 9.0 (8.4-10.2) mg/dL Total Bilirubin 0.5 (0.2-1.3) mg/dL AST 44 (17-59) U/L ALT 36 (6-50) U/L Alkaline Phosphatase 105 (38-126) U/L C-Reactive Protein < 0.5 (<1.0) mg/dL Total Protein 7.8 (6.3-8.2) g/dL Albumin 4.1 (3.5-5.1) g/dL Urine Color Yellow (Yellow) Urine Appearance Turbid H (Clear) Urine pH 5.5 (5.0-9.0) Ur Specific [place] 1.009 (1.001-1.035) Urine Protein Trace (Negative) mg/dL Urine Glucose (UA) Negative (Negative) mg/dL Urine Ketones Negative (Negative) mg/dL Ur Blood (Man) 1+ H (Negative) Urine Nitrate Positive H (Negative) Urine Bilirubin Negative (Negative) Urine Urobilinogen 0.2 (<2.0) mg/dL Add Ur Microanalysis Reviewed Leukocyte Esterase Rfl 3+ H (Negative) LUCIO/UL Urine RBC 0-2 (0-2) /hpf Urine WBC >100 H (0-3) /hpf Urine WBC Clumps Present H (None) /HPF Ur Squamous Epith Cells Moderate (Few) /hpf Urine Bacteria 4+ H /hpf Urine Casts 3-5 <Renea Osborne, [employer]MER - Last Filed: 04/13/25 12:22> Lab Results 04/13/25 Range/Units 12:56 WBC 9.4 (4.5-10.0) K/mm3 RBC 3.71 L (4.6-6.20) M/mm3 Hgb 11.6 L (14.0-18.0) g/dL Hct 36.0 L (42.0-52.0) % MCV 97.0 (80-100) fl MCH 31.3 (26-34) pg MCHC 32.2 (32-36) g/dl RDW 15.3 H (11.5-14.5) % Plt Count 206 (150-375) k/mm3 MPV 9.5 (7.4-10.4) fl Immature Gran % (Auto) 0.5 (0-0.5) % Neut % (Auto) 72.8 (45.5-73.1) % Lymph % (Auto) 13.5 L (18.3-44.2) % [place] % (Auto) 8.4 (2.6-8.5) % Eos % (Auto) 4.1 (0-4.4) % Baso % (Auto) 0.7 (0.2-1.2) % Lymph # (Auto) 1.27 (0.9-3.2) K/mm3 [place] # (Auto) 0.8 H (0.1-0.6) K/mm3 Eos # (Auto) 0.4 H (0-0.3) K/mm3 Baso # (Auto) 0.1 (0.0-0.1) K/mm3 Abs Immat Gran (auto) 0.05 H (0.00-0.031) K/mm3 Absolute Neuts (auto) 6.9 H (1.3-6.7) K/mm3 Absolute Nucleated RBC 0.000 (0.0-0.012) K/mm3 Nucleated RBC % 0.0 (0.0-0.2) % PT 15.4 H (11.1-14.7) Seconds INR 1.2 APTT 31.7 (22.3-36.8) Seconds Sodium 140 (137-145) mmol/L Potassium 3.5 (3.4-5.0) mmol/L Chloride 104 (98-107) mmol/L Carbon Dioxide 25 (22-30) mmol/L Anion Gap 11 (4-12) mmol/L BUN 37 H D (9-20) mg/dL Creatinine 2.81 H (0.7-1.3) mg/dL Estim Creat Clear Calc 21 ml/min Estimated GFR 22 L (59 - ) Glucose 98 (65-110) mg/dL Lactic Acid 1.6 (0.7-2.0) mmol/L Calcium 9.0 (8.4-10.2) mg/dL Total Bilirubin 0.5 (0.2-1.3) mg/dL AST 44 (17-59) U/L ALT 36 (6-50) U/L Alkaline Phosphatase 105 (38-126) U/L C-Reactive Protein < 0.5 (<1.0) mg/dL Total Protein 7.8 (6.3-8.2) g/dL Albumin 4.1 (3.5-5.1) g/dL Urine Color Yellow (Yellow) Urine Appearance Turbid H (Clear) Urine pH 5.5 (5.0-9.0) Ur Specific [place] 1.009 (1.001-1.035) Urine Protein Trace (Negative) mg/dL Urine Glucose (UA) Negative (Negative) mg/dL Urine Ketones Negative (Negative) mg/dL Ur Blood (Man) 1+ H (Negative) Urine Nitrate Positive H (Negative) Urine Bilirubin Negative (Negative) Urine Urobilinogen 0.2 (<2.0) mg/dL Add Ur Microanalysis Reviewed Leukocyte Esterase Rfl 3+ H (Negative) LUCIO/UL Urine RBC 0-2 (0-2) /hpf Urine WBC >100 H (0-3) /hpf Urine WBC Clumps Present H (None) /HPF Ur Squamous Epith Cells Moderate (Few) /hpf Urine Bacteria 4+ H /hpf Urine Casts 3-5 <Eve Del Valle PA-C - Last Filed: 04/14/25 02:52> Discharge Plan Discharge Clinical Impression: Cellulitis of foot, Acute UTI, PREMA (acute kidney injury), Tinea cruris, Dermatitis <Renea Osborne APRN - Last Filed: 04/13/25 12:22> Patient Disposition: Still a Patient <Renea Osborne APRN - Last Filed: 04/13/25 12:22> Condition: Stable <Renea Osborne APRN - Last Filed: 04/13/25 12:22>
[2025-04-13 13:06] LABS: Hematocrit 36.0 % (42.0-52.0); Hemoglobin 11.6 g/dL (14.0-18.0); Immature Granulocyte Percent A 0.5 % (0-0.5); Lymphocytes Absolute Auto 1.27 K/mm3 (0.9-3.2); Mean Corpuscular HGB Conc 32.2 g/dl (32-36); Mean Corpuscular Hemoglobin 31.3 pg (26-34); Mean Corpuscular Volume 97.0 fl (80-100); Nucleated Red Blood Cells Absolute Auto 0.000 K/mm3 (0.0-0.012); Nucleated Red Blood Cells Perc 0.0 % (0.0-0.2); Platelet Count Result 206 k/mm3 (150-375); Red Blood Count 3.71 M/mm3 (4.6-6.20); White Blood Count 9.4 K/mm3 (4.5-10.0)
[2025-04-13 13:19] LABS: Add Urine Microscopic? YES; Appearance Urine Turbid (Clear); Glucose Urine UA Negative (Negative); Leukocyte Esterase Ur 3+ LEU/UL (Negative); Need Manual Microscopic Reviewed; Nitrate Urine Positive (Negative); Specific Grav Ur 1.009 (1.001-1.035)
[2025-04-13 13:23] LABS: INR 1.2; Partial Thromboplastin Time 31.7 Seconds (22.3-36.8); Prothrombin Time 15.4 Seconds (11.1-14.7)
[2025-04-13 13:26] LABS: Alanine Aminotransferase 36 U/L (6-50); Albumin Level 4.1 g/dL (3.5-5.1); Alkaline Phosphatase 105 U/L (38-126); Anion Gap 11 mmol/L (4-12); Aspartate Amino Transferase 44 U/L (17-59); Bilirubin,Total 0.5 mg/dL (0.2-1.3); Blood Urea Nitrogen 37 mg/dL (9-20); CRP < 0.5 mg/dL (<1.0); Calcium 9.0 mg/dL (8.4-10.2); Carbon Dioxide 25 mmol/L (22-30); Chloride 104 mmol/L (98-107); Estimated CRCL calculation 21 ml/min; Estimated Glomerular Filt Rate 22; Glucose 98 mg/dL (65-110); Potassium 3.5 mmol/L (3.4-5.0); Sodium 140 mmol/L (137-145); Total Protein 7.8 g/dL (6.3-8.2)
[2025-04-13 14:07] VITALS: BP 123/66; PULSE 82; TEMP 36.4; O2SAT 99
[2025-04-13 15:51] VITALS: BP 122/66; PULSE 88; RESP 16; O2SAT 97
--- OUTSIDE RECORDS SUMMARY | 2025-04-13 17:13 | XMS_ITS | Encounter Summary ---
Author Organization [facility] Healthcare Address [address] [place] [address] Care Team Providers Care Technical Solutions Director Name Role Phone Kath Shepherd MD Unavailable [phone] Peter Ya MD Unavailable [phone] Vitaly Ledesma MD Unavailable [phone] Joshua Butterfield MD Unavailable [phone] Jeffery Bustillos MD Unavailable [phone] Shimon Schofield MD Unavailable Preethi Godoy NP Primary Care Provider [phone] Encounter Details Date Type Department Care Team (Late st Contact Info) Description 02/17/2025 Results Follow-Up [facility] Medical Group Primary Care at [address] [address] Ankit Pascal MD [address] [place] [address] [address] [place] [address] Urine culture Urine, clean voided [...] on file 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 Gender Identity Not on file Sexual Orientation Not on file 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 Start Date Job End Date 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 [employer] Not on file Not on file Not on file documented as of this encounter Plan of Treatment Not on file documented as of this encounter Visit Diagnoses Not on filedocumented in this encounter Care Teams Technical Solutions Director Relationship Specialty Start Date End Date Preethi Godoy NP [address] [facility] [address] [place] [address] PCP - General Family Medicine 08/25/24 Kath Shepherd MD [address] [place] [address] Consulting Physician Gastroenterology 07/22/19 Peter Ya MD [address] [place] [address] Mall Plant Caretaker Cardiology 07/22/19 Vitaly Ledesma MD [address] [place] [address] Consulting Physician Neurology 07/22/19 Joshua Butterfield MD [address] [place] [address] Consulting Physician Urology 07/03/23 Jeffery Bustillos MD [address] [facility] [address] [facility] [address] [place] [address] Consulting Physician Cardiovascular Disease 02/06/24 Shimon Schofield MD [address] [facility] [address] [place] [address] Consulting Physician Vascular Surgery 02/06/24 documented as of this encounter
--- OUTSIDE RECORDS SUMMARY | 2025-04-13 17:13 | XMS_ITS | Encounter Summary ---
Author Organization [facility] Healthcare Address [address] [place] [address] Care Team Providers Care Director Operations Broadcast Name Role Phone Kath Shepherd MD Unavailable [phone] Peter Ya MD Unavailable [phone] Vitaly Ledesma MD Unavailable [phone] Anayeli Lee MD Primary Care Provider Joshua Butterfield MD Unavailable [phone] Jeffery Bustillos MD Unavailable [phone] Shimon Schofield MD Unavailable Preethi Godoy NP Primary Care Provider [phone] Encounter Details Date Type Department Care Team (Late st Contact Info) Description 07/07/2024 Orders Only [facility] Health Information Management [address] [place] [id number] Scanning, Provider Social History Tobacco Use [...] on file 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 2:24 AM 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 AND 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 Gender Identity Not on file Sexual Orientation Not on file 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 Job 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[employer] Not on [...] COVID: Suspected 11/14/2024 11/14/2024 11/14/2024 10:49 AM JOURNALISTS AND 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 COVID: Suspected 11/14/2024 11/14/2024 11/14/2024 3:33 PM JOURNALISTS AND 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 RSV, droplet 11/14/2024 11/14/2024 11/21/2024 3:07 AM JOURNALISTS AND 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 COVID: Suspected 12/30/2024 12/30/2024 12/30/2024 7:54 PM CDT documented as of this encounter Care Teams Director Operations Broadcast Relationship Specialty Start Date End Date Anayeli Lee MD [address] [place] [address] PCP - General Family Medicine 07/03/23 08/24/24 Preethi Godoy NP [address] [facility] [address] [place] [address] PCP - General Family Medicine 08/25/24 Kath Shepherd MD [address] [place] [address] Consulting Physician Gastroenterology 07/22/19 Peter Ya MD [address] [place] [address] Personnel Placement Specialist Cardiology 07/22/19 Vitaly Ledesma MD [address] [place] [address] Consulting Physician Neurology 07/22/19 Joshua Butterfield MD [address] [facility] [address] [place] [address] Consulting Physician Urology 07/03/23 Jeffery Bustillos MD [address] [facility] [address] [place] [address] Consulting Physician Cardiovascular Disease 02/06/24 Shimon Schofield MD [address] [facility] [address] [place] [address] Consulting Physician Vascular Surgery 02/06/24 documented as of this encounter
--- OUTSIDE RECORDS SUMMARY | 2025-04-13 17:13 | XMS_ITS | Encounter Summary ---
Author Organization [facility] Address [address] [place] [address] Phone Care Team Providers Care Police Worker Name Role Phone John Kimbrough MD Primary Care Provider Kath Shepherd MD Unavailable [phone] Peter Ya MD Unavailable [phone] Vitaly Ledesma MD Unavailable [phone] Anayeli Lee MD Primary Care Provider Joshua Butterfield MD Unavailable [phone] Jeffery Bustillos MD Unavailable [phone] Shimon Schofield MD Unavailable Preethi Godoy NP Primary Care Provider Encounter Details Date Type Department Care Team (Late st Contact Info) Description 01/13/2018 Orders Only [facility] Care ProviderOlive MD [address] [place] [address] Social History Tobacco Use Types Packs/Day Years Used Date Smoking Tobacco: Never Smokeless Tobacco: Never Alcohol Use Standard Drinks/Week Comments No 0 (1 standard drink = 0.6 oz pur e alcohol) Sex and Gender Information Value Date Recorded Sex Assigned at Not on file 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 Gender Identity Not on file [...] COVID: Suspected 08/21/2021 08/21/2021 08/21/2021 11:38 AM PERFECT BIND 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 COVID: Suspected 11/14/2024 11/14/2024 11/14/2024 10:49 AM PERFECT BIND 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 COVID: Suspected 11/14/2024 11/14/2024 11/14/2024 3:33 PM PERFECT BIND 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 RSV, droplet 11/14/2024 11/14/2024 11/21/2024 3:07 AM PERFECT BIND 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 COVID: Suspected 12/30/2024 12/30/2024 12/30/2024 7:54 PM CDT documented as of this encounter Care Teams Police Worker Relationship Specialty Start Date End Date John Kimbrough MD PCP - General 11/08/16 07/02/23 Anayeli Lee MD [address] [place] [address] PCP - General Family Medicine 07/03/23 08/24/24 Preethi Godoy NP [address] [facility] [address] [place] [address] PCP - General Family Medicine 08/25/24 Kath Shepherd MD [address] [place] [address] Consulting Physician Gastroenterology 07/22/19 Peter Ya MD [address] [place] [address] Mutual Fund Accountant Cardiology 07/22/19 Vitaly Ledesma MD [address] [place] [address] Consulting Physician Neurology 07/22/19 Joshua Butterfield MD [address] [facility] [address] [place] [address] Consulting Physician Urology 07/03/23 Jeffery Bustillos MD [address] [facility] [address] [place] [address] Consulting Physician Cardiovascular Disease 02/06/24 Shimon Schofield MD [address] [address] Consulting Physician Vascular Surgery 02/06/24 documented as of this encounter
--- OUTSIDE RECORDS SUMMARY | 2025-04-13 17:13 | XMS_ITS | Clinical Summary ---
Author Organization [facility] Address [address] [place] [address] Care Team Providers Care Community Service Representative Name Role Phone Kath Shepherd MD Unavailable [phone] Peter Ya MD Unavailable Aziza Ledesma MD Unavailable [phone] Joshua Butterfield MD Unavailable [phone] Jeffery Bustillos MD Unavailable [phone] Shimon Schofield MD Unavailable Preethi Godoy NP Primary Care Provider [phone] Allergies No known active allergies Medications coenzyme Q10 10 mg capsule Take 2 capsules (20 mg total) by mouth every morning Active tchge-0-ofq-ep a-dpa-fish oil 1,050-1,200 mg capsule Take 1 [...] dementia with mood disturbance (HCC),Cerebral amyloid angiopathy (HCC),KALYA (generalized anxiety disorder) Take 1 tablet (20 [...] Route Frequency Start Date End Date Status [facility] BMS-715349/placebo ([id number]) capsule 4 capsuleIndications:Crohn' s disease of both small and large intestine with other complication (HCC) 4 capsule oral 2 times daily 05/21/2022 Active [facility] BMS-457329/placebo ([id number]) capsule 4 capsuleIndications:Crohn' s disease of both small and large intestine with other complication (HCC) 4 capsule oral 2 times daily 06/18/2022 Active [facility] BMS-459353/placebo ([id number]) capsule 4 capsuleIndications:Crohn' s disease of both small and large intestine with other complication (HCC) 4 capsule oral 2 times daily 07/09/2022 Active [facility] BMS-680528/placebo (/[id number]) capsule 4 capsuleIndications:Crohn' s disease of both small and large intestine with other complication (HCC) 4 capsule oral 2 times daily 08/07/2022 Active [facility] BMS-749557/placebo ([id number]) capsule 4 capsuleIndications:Crohn' s disease of both small and large intestine with other complication (HCC) 4 capsule oral 2 times daily 09/19/2022 [facility] BMS-509740/placebo ([id number]) capsule 4 capsuleIndications:Crohn' s disease of both [...] modification Assessment & Plan (10/03/2023 1:12 PM PROCESSING CLERK): Chronic. Due to prior peripheral arterial disease. [...] urologist Assessment & Plan (10/03/2023 1:12 PM PROCESSING CLERK): Chronic. Continue medication care per Urology Assessment & Plan (07/03/2023 5:22 PM CDT): Follows with [facility] Dr. Butterfield. Patient on finasteride and does intermittent straight catheterization Protein-calorie malnutrition, mild 07/03/2023 Overview (07/03/2023): Patient with low BMI. Less protein level was low. Monitor weight Assessment & Plan (02/06/2024 4:55 PM CDT): Patient has had borderline protein calorie malnutrition. Monitor his protein levels on labs. Encourage adequate nutrition. Avoid additional weight loss Assessment & Plan (10/03/2023 1:12 PM PROCESSING CLERK): Chronic. BMI remains at the lower end arrange. Encouraged adequate nutrition. Monitor History of gout 07/03/2023 Assessment & Plan (02/06/2024 4:55 PM CDT): Chronic. Denies history of recent flares. Continue allopurinol for prophylaxis. Check uric acid Assessment & Plan (10/03/2023 1:12 PM PROCESSING CLERK): Chronic. Denies any history of gout in [...] 03/14/2023 Assessment & Plan (10/03/2023 1:13 PM PROCESSING CLERK): Chronic. May occasionally increase in size. Minimal pain. Has deferred elective repair in the past Persistent atrial fibrillation 12/04/2021 Assessment & Plan (11/23/2024 1:36 PM PROCESSING CLERK): Rate controlled in office, continuing follow up with Cardiology. Assessment & Plan (03/01/2024 7:51 AM CDT): Stable continue metoprolol. Assessment & Plan (02/06/2024 4:55 PM CDT): Chronic. Controlled rate with metoprolol. Continue. Continue aspirin for stroke prophylaxis Assessment & Plan (10/03/2023 1:12 PM PROCESSING CLERK): Chronic. Continue risk factor modification. Continue ASA [...] Monitor Assessment & Plan (10/03/2023 1:11 PM PROCESSING CLERK): Chronic. Denies significant worsening. No agitation recently. [...] They denies significant agitation Cerebral amyloid angiopathy ([facility]) 02/15/2020 Assessment & Plan (02/06/2024 4:54 PM CDT): Chronic. Memory has worsened slightly in the last year. He does have some fluctuations at times. No real agitation. Target good blood pressure control. Continue aspirin for his other issues. Would be cautious with more aggressive anticoagulation given history of amyloid angiopathy Assessment & Plan (10/03/2023 1:11 PM PROCESSING CLERK): Chronic. Denies any progression of symptoms Assessment & Plan (07/03/2023 5:18 PM CDT): Chronic. Control blood pressure and modify risk factors as able. Continue aspirin given AFib but would be cautious with stronger anticoagulants given increased bleeding risk with cerebral amyloid angiopathy Peripheral artery disease 09/10/2019 Overview (09/10/2019): Added automatically from request for surgery [id number] Assessment & Plan (09/03/2024 10:57 AM PROCESSING CLERK): Stable lower extremity occlusive disease. Continue risk [...] duplex. Assessment & Plan (10/03/2023 1:11 PM PROCESSING CLERK): Chronic. Denies recent claudication symptoms. Continue ASA, statin and Pletal Assessment & Plan (07/03/2023 5:22 PM CDT): Chronic. 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 Denies current sores on his feet. Follows with Podiatry in [place]. On cilostazol Iron deficiency anemia due to [...] 02/17/2019 Assessment & Plan (11/23/2024 1:35 PM PROCESSING CLERK): BP normal in office, continuing current regimen. [...] dehydrate Assessment & Plan (10/03/2023 1:10 PM PROCESSING CLERK): Chronic. Blood pressure controlled. Continue current prescription [...] (01/26/2019): Added automatically from request for surgery [id number] Assessment & Plan (02/06/2024 4:52 PM CDT): Chronic. Disease has been stable. Minimal symptoms. He does have to be cautious with eating too many fruits and vegetables as he notes this does cause some GI distress. He remains controlled with Skyrezi and hydroxychloroquine. He will continue Assessment & Plan (10/03/2023 1:10 PM PROCESSING CLERK): Chronic. Symptomatically improved per patient. Continue medication and care per GI Assessment & Plan (07/03/2023 5:20 PM CDT): Chronic. Follows with Gastroenterology. On scar oz and sulfasalazine. Continue medication and care per them CAD (coronary artery disease) 12/04/2018 Assessment & Plan (09/03/2024 10:57 AM PROCESSING CLERK): Stable continue ASA and Lasix Assessment & Plan (02/06/2024 4:51 PM CDT): Chronic. Denies chest pain. Continue risk factor modification with statin, aspirin, blood pressure control. Target LDL less than 70 Assessment & Plan (10/03/2023 1:10 PM PROCESSING CLERK): Chronic. Denies chest pain. Follows with cardiology. [...] 12/30/2017 Assessment & Plan (08/25/2024 4:06 PM PROCESSING CLERK): Updated labs ordered, Hemoglobin was 9 in [...] infusions Assessment & Plan (10/03/2023 1:10 PM PROCESSING CLERK): Chronic. Follows with GI and Hematology. Has received iron infusions. Often does B12 injections Assessment & Plan (07/03/2023 5:15 PM CDT): Chronic. Follows with GI and Hematology. Received iron infusions Hypercholesterolemia 02/05/2011 Assessment & Plan (09/03/2024 10:57 AM PROCESSING CLERK): Stable continue statin therapy. Assessment & Plan (03/01/2024 7:50 AM CDT): Stable continue statin therapy. Assessment & Plan (02/06/2024 4:53 PM CDT): Chronic. Tolerates atorvastatin. Continue. Check cholesterol level and adjust for an LDL goal of at least less than 70 with optimal less than 55 Assessment & Plan (10/03/2023 1:10 PM PROCESSING CLERK): Chronic. Tolerates current prescription medication. Continue Assessment [...] (05/29/2021): Added automatically from request for surgery [id number] Crohn's disease with rectal bleeding 12/10/2018 07/03/2023 Overview (12/10/2018): Added automatically from request for surgery [id number] Peripheral vascular disease 02/13/2017 07/03/2023 Gastrointestinal hemorrhage 07/03/2023 Acute renal failure 07/03/20 23 Crohn's disease of colon with rectal bleeding 07/03/2023 Assessment & Plan (12/04/2021 1:34 PM CDT): Has upcoming endoscopy. Encounters Date Type Department Care Team Description 04/12/2025 Results Follow-Up [facility] at [address] [phone] Gladys Valdovinos NP Aerobic and anaerobic culture and gram stain Wound Buttocks, right, Colleen (yeast) culture Lesion Buttocks, right 04/10/2025 12:55 PM CDT - 04/10/2025 11:59 PM CDT Hospital Encounter [address] [address] Incidental lung nodule Discharge Disposition: Discharge to home or self care 04/07/2025 Results Follow-Up [facility] at [address] [phone] Ilana Powers NP Urinalysis reflex to microscopic and culture Urine, in and out catheter, Urinalysis, microscopic only 04/06/2025 11:24 AM CDT - 04/06/2025 11:59 PM CDT Hospital Encounter [address] [address] Local skin infection Discharge Disposition: Discharge to home or self care 04/06/2025 11:00 AM CDT Office Visit [facility] Care at [address] [phone] Sandrita Daugherty NP Local skin infection (Primary Dx); Contact dermatitis due to plants, except food, unspecified contact dermatitis type 04/06/2025 10:45 AM CDT Lab [facility] at [address] [phone] 04/06/2025 10:42 AM CDT - 04/06/2025 11:59 PM CDT Hospital Encounter [address] [address] Recurrent UTI; Altered mental status, unspecified altered mental status type Discharge Disposition: Discharge to home or self care 04/04/2025 Telephone [facility] at [address] [phone] Preethi Godoy NP Symptom Based Call 03/31/2025 Telephone [facility] at [address] [phone] Preethi Godoy NP Medical Question/Miscellane ous 03/18/2025 12:00 PM CDT Lab [facility] at [address] [phone] 03/18/2025 11:49 AM CDT - 03/18/2025 11:59 PM CDT Hospital Encounter [address] [address] Recurrent UTI Discharge Disposition: Discharge to home or self care 03/18/2025 Results Follow-Up [facility] at [address] [phone] Ilana Powers NP Urinalysis reflex to microscopic and culture Urine, in and out catheter, Urinalysis, microscopic only, Urine culture Urine, in and out catheter 03/18/2025 Orders Only [facility] at [address] [phone] Ilana Powers NP Acute cystitis without hematuria (Primary Dx) 03/18/2025 Nurse Triage [facility] at [address] [phone] Love Piña RN Recurrent UTI (Primary Dx) 03/03/2025 9:58 AM CDT - 03/03/2025 11:59 PM CDT Hospital Encounter [facility] [address] [place] [address] Amyloid myopathy (HCC) Discharge Disposition: Discharge to home or self care 02/25/2025 8:45 AM CDT Lab [facility] Out[facility] Lab at [address] [phone] Acute hemorrhagic cystitis (Primary Dx) 02/25/2025 8:36 AM CDT - 02/25/2025 11:59 PM CDT Hospital Encounter [address] [address] Acute cystitis with hematuria Discharge Disposition: Discharge to home or self care 02/21/2025 11:45 AM CDT Office Visit [facility] Primary Care at [address] [phone] Ankit Pascal MD Acute cystitis with hematuria (Primary Dx) 02/21/2025 Nurse Triage [facility] at [address] [phone] Preethi Godoy, DONALD 02/17/2025 Results Follow-Up [facility] at [address] [phone] Ankit Pascal MD Urine culture Urine, clean voided 02/15/2025 4:29 PM CDT - 02/15/2025 11:59 PM CDT Hospital Encounter [address] [address] Confusion Discharge Disposition: Discharge to home or self care 02/15/2025 4:15 PM CDT Office Visit [facility] at [address] [phone] Ankit Pascal MD Acute cystitis with hematuria (Primary Dx); Confusion 02/15/2025 Nurse Triage [facility] at [address] [phone] Preethi Godoy, DONALD 02/09/2025 Telephone [facility] at [address] [phone] Preethi Godoy NP Medication Request 01/28/2025 Telephone [facility] [address] [place] [phone] Madai Enrique NP 01/28/2025 Orders Only [facility] [address] [facility] [address] [place] [phone] Madai Enrique NP Amyloid myopathy (HCC) (Primary Dx); Mitral valve insufficiency, unspecified etiology; Incidental lung nodule 01/23/2025 Results Follow-Up [facility] at [address] [phone] Ankit Pascal MD Urinalysis reflex to microscopic and culture Urine, Urinalysis, microscopic only 01/21/2025 11:15 AM CDT Ancillary Procedure [facility] at [address] [place] [address] Coronary artery disease involving coronary bypass graft of inaja heart, unspecified whether angina present; Fatigue, unspecified type; Hypotension, unspecified hypotension type 01/19/2025 12:15 PM CDT Lab [facility] at [address] [phone] 01/19/2025 12:03 PM CDT - 01/19/2025 11:59 PM CDT Hospital Encounter [address] [address] Recurrent UTI Discharge Disposition: Discharge to home or self care 01/19/2025 Results Follow-Up [facility] at [address] [phone] Ankit Pascal MD CBC with auto differential, Differential, auto 01/18/2025 11:45 AM CDT Ancillary Procedure [facility] at [address] [phone] 01/18/2025 11:30 AM CDT Lab [facility] at [address] [phone] KAYLA (generalized anxiety disorder) (Primary Dx); Benign prostatic hyperplasia with urinary retention 01/18/2025 11:20 AM CDT - 01/18/2025 11:59 PM CDT Hospital Encounter [address] [address] CAP (community acquired pneumonia) Discharge Disposition: Discharge to home or self care 01/18/2025 10:30 AM CDT Office Visit [facility] at [address] [phone] Ankit Pascal MD Hospital discharge follow-up (Primary Dx); CAP (community acquired pneumonia); Recurrent UTI 01/18/2025 Results Follow-Up [facility] at [address] [phone] Ankit Pascal MD XR Chest [...] Neg Hx Relation Name Status Comments Father IN & CVA () age 76 Mother Sister [...] on file 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 2:24 AM PROCESSING CLERK Gender Identity Not on file Sexual Orientation Not on file 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 [employer] Not on file Not on file Not [...] Screening Discontinued Medical Devices Implanted Type Area Claim Taker Device Identifier Shelf Expiration Date Model / Serial / Lot [employer] Araceli [id number] Synergy 3.5mm 24mm 144cm Radiopaque 1 Access Port Inflation Lumen - [id number] - [id number] Implanted:Qty: 1 on 03/26/2019 by Alban Santana MD at [facility] [employer] 12/09/2020 [id number] / [id number] / [id number] Procedures Procedure Name Priority Date/Time Associated Diagnosis [...] artery disease involving coronary bypass graft of inaja heart, unspecified whether angina present Fatigue, unspecified [...] (community acquired pneumonia) COLONOSCOPY 10/21/2024 10:56 AM PROCESSING CLERK CTA ABDOMEN PELVIS W WO CONTRAST Schedule [...] 1.30 mg/dL Comment:Testing performed by : [facility], [address] [place] [address]., [address] Blood 04/10/2025 1:29 PM CDT 04/10/2025 1:29 PM CDT Preethi Godoy NP POINT OF CARE TEST ORDERABLES Fi nal Result [facility] [address] [facility] [place] [address] * (ABNORMAL) Colleen (yeast) culture Lesion Buttocks, right (04/06/2025 11:24 AM CDT) Report Final Report: Moderate Colleen albicans (.) Comment:Testing performed by : [facility], [address] [facility], [place]., [address] Organism COLLEEN ALBICANS TRAVIS Lesion (Buttocks, right) [...] Sandrita Daugherty NP LAB MICROBIOLOGY - GENERAL MENIFEEE [facility] Final Result [facility] [place] [address] [place] [address] * (ABNORMAL) Aerobic and anaerobic culture and gram stain Wound Buttocks, right (04/06/2025 11:24 AM CDT) Direct Specimen Exam Stain: Rare polymorphonuclear leukocytes seen. Rare Gram Positive Cocci Comment:Testing performed by : [facility], [address] [place]., [address] Report Final Report: Moderate Mixed Gram-positive microorganisms Includes the following: Few Colleen albicans (.) [facility] Comment:Testing performed by : [facility], [address] [place]., [address] Organism MIXED GRAM POSITIVE MICROORGANISMS [facility] Organism COLLEEN ALBICANS [facility] Wound (Buttocks, right) 04/06/2025 11:24 AM CDT 04/06/2025 10:10 PM CDT Narrative [facility] - 04/13/2025 2:00 PM CDT Specimen received on an ESwab. Testing performed by [facility] Microbiology Laboratory ([phone]) Specimens submitted from normally sterile body sites will have all bacterial morphotypes identified. Specimens that contain grossly mixed alton and/or are from body sites that are not normally sterile will be examined for Staphylococcus aureus, Pseudomonas aeruginosa, beta-hemolytic strep, vancomycin-resistant Enterococcus, Bacteroides, Parabacteroides, Clostridium perfringens and fungus. If any of these are isolated, the organism will be reported. Current interpretive data was last revised on 2019. Sandrita Daugherty NP LAB MICROBIOLOGY - [facility] ELIEL Final Result Performing Organization Address City/[facility]/ZIP Co de Phone Number [place] [address] [place] [address] * (ABNORMAL) Urinalysis reflex to microscopic and [...] tendency for uric acid stone formation. Source: [facility] Current Interpretive Data was last revised on [...] performed. [facility] Urine, in and out catheter 04/06/2025 10:42 AM CDT 04/06/2025 8:18 PM CDT Preethi Godoy NP LAB MICROBIOLOGY - GENERAL ORDER MANJINDER Final Result [facility] [address] Department [place] [address] * (ABNORMAL) Urinalysis, microscopic only (04/06/2025 10:42 AM CDT) WBC, ur 6-10(A) 0 - 5 /HPF RBC, ur 0-2 0 - 2 /HPF [facility] Epithelial cells, squamous, ur 1-5 0 - 5 /HPF [facility] Bacteria, ur 1+(A) [facility] CH Culture Reflex Comment Reflex conditions for urine culture (WBC >10) not met. [facility] Urine, in and out catheter 04/06/2025 10:42 AM CDT 04/06/2025 8:18 PM CDT Preethi Godoy NP LAB URINE ORDERABLES Final Resul t [place] [address] Department [place] [address] * (ABNORMAL) Urinalysis reflex to microscopic and [...] tendency for uric acid stone formation. Source: [facility] [employer] Current Interpretive Data was last revised on [...] 3:22 PM CDT Preethi Godoy NP LAB MICROBIOLOGY - GENERAL ORDER MANJINDER Final Result [place] [address] Department [place] [address] * (ABNORMAL) Urinalysis, microscopic only (03/18/2025 11:49 AM CDT) WBC, ur >50(A) 0 - 5 /HPF RBC, ur 0-2 0 - 2 /HPF [facility] CH Epithelial cells, squamous, ur 1-5 0 - 5 /HPF [facility] Bacteria, ur 2+(A) [facility] Mucous, ur Present(A) [facility] Culture Reflex Comment Reflex to urine culture will be performed. [facility] Urine, in and out catheter 03/18/2025 11:49 AM CDT 03/18/2025 3:22 PM CDT Preethi Godoy NP LAB URINE ORDERABLES Final Resul t [facility] [address] Department [place] [address] * (ABNORMAL) Urine culture Urine, in and out catheter (03/18/2025 11:49 AM CDT) Report Final Report: Greater than or equal to 100,000 colonies/mL of Klebsiella pneumoniae Greater than or equal to 100,000 colonies/mL of Klebsiella pneumoniae #2 (.) Comment:Testing performed by : [facility], [address] [place]., [address] Organism KLEBSIELLA PNEUMONIAE [facility] Organism KLEBSIELLA PNEUMONIAE [facility] Urine, in and out catheter 03/18/2025 11:49 AM CDT 03/18/2025 6:29 PM CDT Narrative [facility] - 03/20/2025 10:30 AM CDT Urine culture reflexed based upon urinalysis results. Testing performed by [facility] Microbiology Laboratory ([phone]) Organism Antibiotic Method Susceptibility Klebsiella pneumoniae Ampicillin [...] Klebsiella pneumoniae Cefdinir INTERPRETATION Susceptible Preethi Godoy [employer] LAB MICROBIOLOGY - GENERAL ORDER MANJINDER Final Result [place] [address] Department [place] [address] * MRI Cardiac M&F W WO Contrast [...] tendency for uric acid stone formation. Source: [facility] Current Interpretive Data was last revised on [...] GENERAL ORDERABLES Final Result Performing Organization Address [facility] de Phone Number [facility] [place] [address] [place] [address] * (ABNORMAL) Urinalysis, microscopic only (02/25/2025 8:36 AM CDT) WBC, ur >50(A) 0 - 5 /HPF RBC, ur 0-2 0 - 2 /HPF [facility] Epithelial cells, squamous, ur 1-5 0 - 5 /HPF [facility] Bacteria, ur Trace(A) [facility] Mucous, ur Present(A) [facility] Hyaline casts, ur 1-5 0 - 10 /LPF [facility] CH Culture Reflex Comment Reflex to urine culture will be performed. [facility] Urine 02/25/2025 8:36 AM CDT 02/25/2025 3:09 PM CDT Ankit Pascal MD LAB URINE ORDERABLES Final Result Performing Organization Address [facility] Co de Phone Number [place] [place] [address] Department of [employer] [place], [place] [id number] * (ABNORMAL) Urine culture Urine (02/25/2025 8:36 AM CDT) Report Final Report: Greater than or equal to 100,000 colonies/mL of Klebsiella pneumoniae Plus growth of clinically insignificant bacterial alton. (.) Comment:Testing performed by : [facility], [address] [place]., [address] Organism KLEBSIELLA PNEUMONIAE [facility] Organism PLUS GROWTH OF CLINICALLY INSIGNIFICANT ALTON. TRAVIS Urine 02/25/2025 8:36 AM CDT 02/25/2025 6:25 PM CDT Narrative [facility] - 02/27/2025 11:00 AM CDT Urine culture reflexed based upon urinalysis results. Testing performed by [facility]biology Laboratory ([phone]) Organism Antibiotic Method Susceptibility Klebsiella pneumoniae Ampicillin [...] Susceptible Klebsiella pneumoniae Cefdinir INTERPRETATION Susceptible us Ankit Pascal MD LAB MICROBIOLOGY - GENERAL ORDERABLES Final Result [facility] [address] Department [place] [address] * (ABNORMAL) POCT UA, AUTO W/O SCOPE (02/15/2025 4:30 PM CDT) Color, Urine, POC Yellow Clarity, ur, POC Cloudy(A) Clear Glucose, ur, POC Negative Negative Bilirubin, ur, POC Negative Negative Ketones, ur, POC Negative Negative Specific [place], POC 1.020 1.003 - 1.030 Blood, ur, [...] bacterial alton. (.) Comment:Testing performed by : [facility], [address] [place]., [address] Organism KLEBSIELLA PNEUMONIAE [place] Organism PLUS GROWTH OF CLINICALLY INSIGNIFICANT ALTON. [facility]OWN[place] Urine, clean voided 02/15/2025 4:29 PM CDT 02/15/2025 10:46 PM CDT Narrative [facility] - 02/18/2025 6:27 AM CDT Testing performed by [facility] Microbiology Laboratory ([phone]) Organism Antibiotic Method Susceptibility Klebsiella pneumoniae Ampicillin [...] MICROBIOLOGY - GENERAL ORDERABLES Final Result [facility] [id number] Department [place] [address] * Lipid panel (01/26/2025 1:34 PM CDT) Blood Olive Randolph MD LAB BLOOD ORDERABLES Laly l Result EXTERNAL LAB * TRANSTHORACIC ECHO (TTE) COMPLETE W DOPPLER/CF WO CONTRAST (01/21/2025 11:37 AM CDT) Estimated EF 50-55 % CONS SCIMAGE EF Mod BP 56 % CONS SCIMAGE Anatomical Region Laterality Modality Ultrasound 01/21/2025 11:2 0 AM CDT Narrative 01/21/2025 12:31 PM CDT [facility] Card[facility] [address], [address], [place] [address] P:[phone] P:[phone] Echocardiographic Report Patient Name: AZIZA LOAY O : 1945 Study Date: 01/21/2025 11:20:02 [...] FINDINGS: Interpretation Site: Exam was interpreted at [facility]. Left Ventricle: Mild concentric left ventricular hypertrophy. [...] Procedure Note Harley Bowser MD - 01/21/2025 [facility]iology [address], [address], [place] [address] P:[phone] P:[phone] Echocardiographic Report Patient Name: AZIZA LOYA O : 1945 Study Date: 01/21/2025 11:20:02 AM Gender: M Tech: Location: [facility] Ref Provider: MADAI ENRIQUE Height(Cm): 178 [...] FINDINGS: Interpretation Site: Exam was interpreted at [facility]. Left Ventricle: Mild concentric left ventricular hypertrophy. [...] tendency for uric acid stone formation. Source: [facility] [employer] [facility] Current Interpretive Data was last revised on [...] LAB MICROBIOLOGY - GENERAL ORDERABLES Final Result [facility] [address] Department [place] [address] * (ABNORMAL) Urinalysis, microscopic only (01/19/2025 12:03 [...] Pascal MD LAB URINE ORDERABLES Final Result [facility] [address] Department [place] [address] * XR Chest Pa Lateral 2 Views [...] Brown Ennis M.D. RW T: Report ID: [id number] Reading Location: [id number] Procedure Note Brown Ennis MD - 01/18/2025 [...] Brown Ennis M.D. RW T: Report ID: [id number] Reading Location: [place] [address] us Ankit Pascal MD IMG XR PROCEDURES [...] abs 0.06 0.00 - 0.10 K/cumm CERNER Neutrophil pct 76.2 % CERNER Comment: Interpretive [...] revised on 2017. Monocyte pct 9.2 % CERNER Comment: Interpretive Data Percent cell [...] revised on 2017. Basophil pct 0.6 % [facility] Comment: Interpretive Data Percent cell count reference ranges are not reported, since discordance with absolute values may lead to misinterpretation of CBC data. Current Interpretive Data was last revised on 2017. Blood 01/18/2025 11:2 0 AM CDT 01/18/2025 8:27 PM CDT Ankit Pascal MD LAB BLOOD ORDERABLES Final [facility] [address] [address] Department [place] [address] * (ABNORMAL) CBC with auto differential (01/18/2025 11:20 AM CDT) WBC 9.34 3.80 - 9.90 K/cumm Hgb 11.4(L) 13.0 - 17.5 g/dL [facility] Hct 37.5(L) 38.9 - 50.3 % [facility] Plt 284 150 - 400 K/cumm [facility] MPV 9.9 9.1 - 12.3 fL [facility] RBC 3.75(L) 4.30 - 5.80 M/cumm [facility] MCV 100.0(H) 81.3 - 96.4 fL [facility] MCH 30.4 27.1 - 33.3 pg [facility] MCHC 30.4(L) 32.3 - 35.7 g/dL [facility] RDW CV 13.7 11.1 - 14.9 % [facility] RDW SD 50.4(H) 35.7 - 48.1 fL [facility] NRBC abs 0.00 0.00 - 0.01 K/cumm [facility] Blood 01/18/2025 11:2 0 AM CDT 01/18/2025 8:27 PM CDT Ankit Pascal MD LAB BLOOD ORDERABLES Final Result [facility] [address] [facility] [place] [address] * Colonoscopy (10/21/2024 10:56 AM PROCESSING CLERK) Anatomical Region Laterality Modality Other Narrative Procedure Note Kath Shepherd MD - 10/21/2024 10:56 AM CST [facility] Patient Name: Aziza Loya Procedure Date: 10/21/2024 10:56 AM Date of : 1945 Admit Type: Outpatient Age: 79 Gender: Male Attending MD: Kath Shepherd M.D. Room: [facility] ENDOSCOPY ROOM 3 Note Status: Addendum [...] The scope was passed under direct vision.The [facility] [id number] endoscope was introducedthrough the anus and [...] signed by Steven RAJPUT T: Report ID: [id number] Reading Location: [place] [address] Procedure Note Steven Ruano MD - 02/24/2024 [...] Steven Ruano M.D. RB T: Report ID: [id number] Reading Location: [id number] us Annie TOWNSEND IMG CT PROCEDURES Final [...] MICROBIOLOGY - GEN ERAL ORDERABLES Final Result [facility] [address] Department [place] [address] from Last 3 Months or Most Recently Relevant to Health Maintenance Insurance [facility] MEDICARE MEDICARE Member Subscriber Plan / Payer (Ef fective 2011-Present) Name:Aziza Loya Member ID:[id number] Relation to Subscriber:Self Name:Aziza Loya Subscriber ID:[id number] Payer ID:[id number] Group ID:Not on file Type:MEDICARE TRADITIONAL Address: [place] [phone] [facility] MEDICARE [facility] MEDICARE [facility] Member Subscriber Plan / Payer ( fective 2017-Present) Name:Aziza Loya Relation to Subscriber:Self Name:Aziza Loya Payer ID:[id number] Group ID:[id number] Type:COMMERCIAL Address: [address] [place] [id number] MEDICARE [employer] Advance Directives For more information, please contact: [phone] * Full Code (Latest Code Status on [...] 10:45 AM 05/17/2022 5:55 PM Care Teams Community Service Representative Relationship Specialty Start Date End Date Preethi Godoy NP [address] [facility] [address] [place] [address] PCP - General Family Medicine 08/25/24 Kath Shepherd MD [address] [place] [address] Consulting Physician Gastroenterology 07/22/19 Peter Ya MD [address] [place] [address] [employer] Cardiology 07/22/19 Aziza Ledesma MD [address] [place] [address] Consulting Physician Neurology 07/22/19 Joshua Butterfield MD [address] [facility] [address] [place] [address] Consulting Physician Urology 07/03/23 Jeffery Bustillos MD [address] [facility] [address] [place], [place] [id number] Consulting Physician Cardiovascular Disease 02/06/24 Shimon Schofield MD [address] [address] Consulting Physician Vascular Surgery 02/06/24
--- OUTSIDE RECORDS SUMMARY | 2025-04-13 17:13 | XMS_ITS | Clinical Summary ---
Author Organization [facility] Address [address] [place] [address] Care Team Providers Care Manuscript Editor Name Role Phone Unavailable Primary Care Provider [...]
--- OUTSIDE RECORDS SUMMARY | 2025-04-13 17:13 | XMS_ITS | Referral Summary ---
Author Organization [facility] Address [address] [place] [address] Care Team Providers Care Environmental Services Lead Name Role Phone Kath Shepherd MD Unavailable Peter Ya MD Unavailable Aziza Ledesma MD Unavailable Joshua Butterfield MD Unavailable Jeffery Bustillos MD Unavailable [phone] Shimon Schofield MD Unavailable Preethi Godoy NP Primary Care Provider Encounters Date Type Department Care Team Description 04/12/2025 Results Follow-Up [facility] at [address] [phone] Gladys Valdovinos NP Aerobic and anaerobic culture and gram stain Wound Buttocks, right, Colleen (yeast) culture Lesion Buttocks, right 04/10/2025 12:55 PM CDT - 04/10/2025 11:59 PM CDT Hospital Encounter [address] [address] Incidental lung nodule Discharge Disposition: Discharge to home or self care 04/07/2025 Results Follow-Up [facility] at [address] [phone] Ilana Powers NP Urinalysis reflex to microscopic and culture Urine, in and out catheter, Urinalysis, microscopic only 04/06/2025 11:24 AM CDT - 04/06/2025 11:59 PM CDT Hospital Encounter [address] [address] Local skin infection Discharge Disposition: Discharge to home or self care 04/06/2025 10:42 AM CDT - 04/06/2025 11:59 PM CDT Hospital Encounter [address] [address] Recurrent UTI; Altered mental status, unspecified altered mental status type Discharge Disposition: Discharge to home or self care 04/06/2025 11:00 AM CDT Office Visit [facility] at [address] [phone] Sandrita Daugherty NP Local skin infection (Primary Dx); Contact dermatitis due to plants, except food, unspecified contact dermatitis type 04/06/2025 10:45 AM CDT Lab [facility] Out[facility] at [address] [phone] 04/04/2025 Telephone [facility] at [address] [phone] Preethi Godoy NP Symptom Based Call 03/31/2025 Telephone [facility] at [address] [phone] Preethi Godoy NP Medical Question/Miscellane ous 03/18/2025 Results Follow-Up [facility] at [address] [phone] Ilana Powers NP Urinalysis reflex to microscopic and culture Urine, in and out catheter, Urinalysis, microscopic only, Urine culture Urine, in and out catheter 03/18/2025 Orders Only [facility] at [address] [phone] Ilana Powers NP Acute cystitis without hematuria (Primary Dx) 03/18/2025 11:49 AM CDT - 03/18/2025 11:59 PM CDT Hospital Encounter [address] [address] Recurrent UTI Discharge Disposition: Discharge to home or self care 03/18/2025 12:00 PM CDT Lab [facility] Outpatient Lab at [address] [phone] 03/18/2025 Nurse Triage [facility] at [address] [phone] Love Piña RN Recurrent UTI (Primary Dx) 03/03/2025 9:58 AM CDT - 03/03/2025 11:59 PM CDT Hospital Encounter [facility] ([facility]) [address] [place] [address] Amyloid myopathy (HCC) Discharge Disposition: Discharge to home or self care 02/25/2025 8:36 AM CDT - 02/25/2025 11:59 PM CDT Hospital Encounter [address] [address] Acute cystitis with hematuria Discharge Disposition: Discharge to home or self care 02/25/2025 8:45 AM CDT Lab [facility] Outpatient Lab at [address] [phone] Acute hemorrhagic cystitis (Primary Dx) 02/21/2025 11:45 AM CDT Office Visit [facility] at [address] [phone] Ankit Pascal MD Acute cystitis with hematuria (Primary Dx) 02/21/2025 Nurse Triage [facility] at [address] [phone] Preethi Godoy NP 02/17/2025 Results Follow-Up [facility] at [address] [phone] Ankit Pascal MD Urine culture Urine, clean voided 02/15/2025 4:29 PM CDT - 02/15/2025 11:59 PM CDT Hospital Encounter [address] [address] Confusion Discharge Disposition: Discharge to home or self care 02/15/2025 4:15 PM CDT Office Visit [facility] at [address] [phone] Ankit Pascal MD Acute cystitis with hematuria (Primary Dx); Confusion 02/15/2025 Nurse Triage [facility] at [address] [phone] Preethi Godoy NP 02/09/2025 Telephone [facility] at [address] [phone] Preethi Godoy NP Medication Request 01/28/2025 Telephone [facility] [address] [facility] [address] [place] [phone] Madai Enrique NP 01/28/2025 Orders Only [facility] [address] [facility] [address] [place] [phone] Madai Enrique NP Amyloid myopathy (HCC) (Primary Dx); Mitral valve insufficiency, unspecified etiology; Incidental lung nodule 01/23/2025 Results Follow-Up [facility] at [address] [phone] Ankit Pascal MD Urinalysis reflex to microscopic and culture Urine, Urinalysis, microscopic only 01/21/2025 11:15 AM CDT Ancillary Procedure [facility] at [address] [place] [address] Coronary artery disease involving coronary bypass graft of [place] heart, unspecified whether angina present; Fatigue, unspecified type; Hypotension, unspecified hypotension type 01/19/2025 12:03 PM CDT - 01/19/2025 11:59 PM CDT Hospital Encounter [address] [address] Recurrent UTI Discharge Disposition: Discharge to home or self care 01/19/2025 Results Follow-Up [facility] at [address] [phone] Ankit Pascal MD CBC with auto differential, Differential, auto 01/19/2025 12:15 PM CDT Lab [facility] at [address] [phone] 01/18/2025 11:20 AM CDT - 01/18/2025 11:59 PM CDT Hospital Encounter [place] [id number] CAP (community acquired pneumonia) Discharge Disposition: Discharge to home or self care 01/18/2025 Results Follow-Up [facility] at [address] [phone] Ankit Pascal MD XR Chest Pa Lateral 2 Views 01/18/2025 11:30 AM CDT Lab [facility] at [address] [phone] KAYLA (generalized anxiety disorder) (Primary Dx); Benign prostatic hyperplasia with urinary retention 01/18/2025 11:45 AM CDT Ancillary Procedure [facility] at [address] [phone] 01/18/2025 10:30 AM CDT Office Visit [facility] at [address] [phone] Ankit Pascal MD Hospital discharge follow-up (Primary Dx); CAP (community acquired pneumonia); Recurrent UTI from Last 3 Months Allergies No known active allergies Medications coenzyme Q10 10 mg capsule Take 2 capsules (20 mg total) by mouth every morning Active bfikp-[id number]-[id number]-ep a-dpa-fish oil 1,050-1,200 mg capsule Take 1 [...] Route Frequency Start Date End Date Status [facility] BMS-425961/placebo ([id number]) capsule 4 capsuleIndications:Crohn' s disease of both small and large intestine with other complication (HCC) 4 capsule oral 2 times daily 05/21/2022 Active [facility]-739149/placebo ([id number]) capsule 4 capsuleIndications:Crohn' s disease of both small and large intestine with other complication (HCC) 4 capsule oral 2 times daily 06/18/2022 Active [facility] BMS-962428/placebo ([id number]) capsule 4 capsuleIndications:Crohn' s disease of both small and large intestine with other complication (HCC) 4 capsule oral 2 times daily 07/09/2022 Active [facility] BMS-843331/placebo ([id number]) capsule 4 capsuleIndications:Crohn' s disease of both small and large intestine with other complication (HCC) 4 capsule oral 2 times daily 08/07/2022 Active [facility] BMS-766920/placebo ([id number]) capsule 4 capsuleIndications:Crohn' s disease of both small and large intestine with other complication (HCC) 4 capsule oral 2 times daily 09/19/2022 Active [facility] BMS-370019/placebo ([id number]) capsule 4 capsuleIndications:Crohn' s disease of both [...] modification Assessment & Plan (10/03/2023 1:12 PM BUSINESS TEAM LEADER): Chronic. Due to prior peripheral arterial disease. [...] urologist Assessment & Plan (10/03/2023 1:12 PM BUSINESS TEAM LEADER): Chronic. Continue medication care per Urology Assessment & Plan (07/03/2023 5:22 PM CDT): Follows with [facility] [place] Dr. Butterfield. Patient on finasteride and does intermittent straight catheterization Protein-calorie malnutrition, mild 07/03/2023 Overview (07/03/2023): Patient with low BMI. Less protein level was low. Monitor weight Assessment & Plan (02/06/2024 4:55 PM CDT): Patient has had borderline protein calorie malnutrition. Monitor his protein levels on labs. Encourage adequate nutrition. Avoid additional weight loss Assessment & Plan (10/03/2023 1:12 PM BUSINESS TEAM LEADER): Chronic. BMI remains at the lower end arrange. Encouraged adequate nutrition. Monitor History of gout 07/03/2023 Assessment & Plan (02/06/2024 4:55 PM CDT): Chronic. Denies history of recent flares. Continue allopurinol for prophylaxis. Check uric acid Assessment & Plan (10/03/2023 1:12 PM BUSINESS TEAM LEADER): Chronic. Denies any history of gout in [...] 03/14/2023 Assessment & Plan (10/03/2023 1:13 PM BUSINESS TEAM LEADER): Chronic. May occasionally increase in size. Minimal pain. Has deferred elective repair in the past Persistent atrial fibrillation 12/04/2021 Assessment & Plan (11/23/2024 1:36 PM BUSINESS TEAM LEADER): Rate controlled in office, continuing follow up with Cardiology. Assessment & Plan (03/01/2024 7:51 AM CDT): Stable continue metoprolol. Assessment & Plan (02/06/2024 4:55 PM CDT): Chronic. Controlled rate with metoprolol. Continue. Continue aspirin for stroke prophylaxis Assessment & Plan (10/03/2023 1:12 PM BUSINESS TEAM LEADER): Chronic. Continue risk factor modification. Continue ASA [...] Monitor Assessment & Plan (10/03/2023 1:11 PM BUSINESS TEAM LEADER): Chronic. Denies significant worsening. No agitation recently. [...] They denies significant agitation Cerebral amyloid angiopathy ([facility]) 02/15/2020 Assessment & Plan (02/06/2024 4:54 PM CDT): Chronic. Memory has worsened slightly in the last year. He does have some fluctuations at times. No real agitation. Target good blood pressure control. Continue aspirin for his other issues. Would be cautious with more aggressive anticoagulation given history of amyloid angiopathy Assessment & Plan (10/03/2023 1:11 PM BUSINESS TEAM LEADER): Chronic. Denies any progression of symptoms Assessment & Plan (07/03/2023 5:18 PM CDT): Chronic. Control blood pressure and modify risk factors as able. Continue aspirin given AFib but would be cautious with stronger anticoagulants given increased bleeding risk with cerebral amyloid angiopathy Peripheral artery disease 09/10/2019 Overview (09/10/2019): Added automatically from request for surgery [id number] Assessment & Plan (09/03/2024 10:57 AM BUSINESS TEAM LEADER): Stable lower extremity occlusive disease. Continue risk [...] duplex. Assessment & Plan (10/03/2023 1:11 PM BUSINESS TEAM LEADER): Chronic. Denies recent claudication symptoms. Continue ASA, statin and Pletal Assessment & Plan (07/03/2023 5:22 PM CDT): Chronic. 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 Denies current sores on his feet. Follows with Podiatry in [place]. On cilostazol Iron deficiency anemia due to [...] 02/17/2019 Assessment & Plan (11/23/2024 1:35 PM BUSINESS TEAM LEADER): BP normal in office, continuing current regimen. [...] dehydrate Assessment & Plan (10/03/2023 1:10 PM BUSINESS TEAM LEADER): Chronic. Blood pressure controlled. Continue current prescription [...] (01/26/2019): Added automatically from request for surgery [id number] Assessment & Plan (02/06/2024 4:52 PM CDT): Chronic. Disease has been stable. Minimal symptoms. He does have to be cautious with eating too many fruits and vegetables as he notes this does cause some GI distress. He remains controlled with Skyrezi and hydroxychloroquine. He will continue Assessment & Plan (10/03/2023 1:10 PM BUSINESS TEAM LEADER): Chronic. Symptomatically improved per patient. Continue medication and care per GI Assessment & Plan (07/03/2023 5:20 PM CDT): Chronic. Follows with Gastroenterology. On scar oz and sulfasalazine. Continue medication and care per them CAD (coronary artery disease) 12/04/2018 Assessment & Plan (09/03/2024 10:57 AM BUSINESS TEAM LEADER): Stable continue ASA and Lasix Assessment & Plan (02/06/2024 4:51 PM CDT): Chronic. Denies chest pain. Continue risk factor modification with statin, aspirin, blood pressure control. Target LDL less than 70 Assessment & Plan (10/03/2023 1:10 PM BUSINESS TEAM LEADER): Chronic. Denies chest pain. Follows with cardiology. [...] 12/30/2017 Assessment & Plan (08/25/2024 4:06 PM BUSINESS TEAM LEADER): Updated labs ordered, Hemoglobin was 9 in [...] infusions Assessment & Plan (10/03/2023 1:10 PM BUSINESS TEAM LEADER): Chronic. Follows with GI and Hematology. Has received iron infusions. Often does B12 injections Assessment & Plan (07/03/2023 5:15 PM CDT): Chronic. Follows with GI and Hematology. Received iron infusions Hypercholesterolemia 02/05/2011 Assessment & Plan (09/03/2024 10:57 AM BUSINESS TEAM LEADER): Stable continue statin therapy. Assessment & Plan (03/01/2024 7:50 AM CDT): Stable continue statin therapy. Assessment & Plan (02/06/2024 4:53 PM CDT): Chronic. Tolerates atorvastatin. Continue. Check cholesterol level and adjust for an LDL goal of at least less than 70 with optimal less than 55 Assessment & Plan (10/03/2023 1:10 PM BUSINESS TEAM LEADER): Chronic. Tolerates current prescription medication. 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 [employer] Not on file Not on file Not [...] on file Medical Devices Implanted Type Area Paper Products Machine Operator Device Identifier Shelf Expiration Date Model / Serial / Lot [employer] [id number] Synergy 3.5mm 24mm 144cm Radiopaque 1 Access Port Inflation Lumen - [id number] - [id number] Implanted:Qty: 1 on 03/26/2019 by Alban Santana MD at [facility] [employer] 12/09/2020 [id number] / [id number] / [id number] Procedures Procedure Name Priority Date/Time Associated Diagnosis [...] artery disease involving coronary bypass graft of [place] heart, unspecified whether angina present Fatigue, unspecified [...] (community acquired pneumonia) COLONOSCOPY 10/21/2024 10:56 AM BUSINESS TEAM LEADER CTA ABDOMEN PELVIS W WO CONTRAST Schedule [...] mg/dL Comment:Testing performed by : [facility], [address] [place] [address]., [address] Blood 04/10/2025 1:29 PM CDT 04/10/2025 1:29 PM CDT Preethi Godoy NP POINT OF CARE TEST ORDERABLES Fi nal Result [facility] [address] [facility] [place] [address] * (ABNORMAL) Colleen (yeast) culture Lesion Buttocks, right (04/06/2025 11:24 AM CDT) Report Final Report: Moderate Colleen albicans (.) Comment:Testing performed by : [facility], [address] [place]., [address] Organism COLLEEN ALBICANS [facility] Lesion (Buttocks, right) 04/06/2025 11:24 AM CDT 04/06/2025 10:12 PM CDT Narrative [facility] - 04/12/2025 6:56 AM CDT Interpretation data: This culture is NOT intended for the detection of filamentous fungi, endemic mycosis, or Cryptococcus. If detected, yeast will be reported and identified. Routine susceptibility is not performed, but if required, please contact the Microbiology Laboratory at . Sandrita Daugherty NP LAB MICROBIOLOGY - GENERAL HILARIO JULIAN Final Result [facility] [place] [address] [address] Department [place] [address] * (ABNORMAL) Aerobic and anaerobic culture and gram stain Wound Buttocks, right (04/06/2025 11:24 AM CDT) Direct Specimen Exam Stain: Rare polymorphonuclear leukocytes seen. Rare Gram Positive Cocci Comment:Testing performed by : [facility], [address] [place] [address]., [id number] Report Final Report: Moderate Mixed Gram-positive microorganisms Includes the following: Few Colleen albicans (.) TRAVIS Comment:Testing performed by : [facility], [address] [place]., [address] Organism MIXED GRAM POSITIVE MICROORGANISMS [facility] Organism [facility] Wound (Buttocks, right) 04/06/2025 11:24 AM CDT 04/06/2025 10:10 PM CDT Narrative [facility] - 04/13/2025 2:00 PM CDT Specimen received on an ESwab. Testing performed by [facility] Microbiology Laboratory ([phone]) Specimens submitted from normally sterile body sites [...] 2019. Sandrita Daugherty NP LAB MICROBIOLOGY - GENERAL ORDE ELIEL Final Result [facility] [address] [address] Department [place] [address] * (ABNORMAL) Urinalysis reflex to microscopic and [...] tendency for uric acid stone formation. Source: [facility] Current Interpretive Data was last revised on [...] Address City/[facility] de Phone Number [facility] [place] [address] [address] Department [place] [address] * (ABNORMAL) Urinalysis, microscopic only (04/06/2025 10:42 AM CDT) WBC, ur 6-10(A) 0 - 5 /HPF RBC, ur 0-2 0 - 2 /HPF C[facility]ER Epithelial cells, squamous, ur 1-5 0 - 5 /HPF [facility] Bacteria, ur 1+(A) CERNER CH Culture Reflex Comment Reflex conditions for urine culture (WBC >10) not met. [facility] Urine, in and out catheter 04/06/2025 10:42 AM CDT 04/06/2025 8:18 PM CDT Preethi Godoy CASH GRAIN F[employer]ER LAB URINE ORDERABLES Final Resul t Performing Organization Address [facility] Phone Number [facility] [place] [address] [address] Department [place] [address] * (ABNORMAL) Urinalysis reflex to microscopic and culture Urine, in and out catheter (03/18/2025 11:49 AM CDT) Color, ur Yellow Yellow Clarity, ur Turbid(A) Clear CERNER Specific gravity, ur 1.014 1.003 - 1.030 CERNER pH, urine 6.0 CERNER Comment: Interpretive Data U rine pH is affected by diet, medications, systemic acid-base disturbances, and renal tubular function. pH may affect urinary stone formation. For example, urine pH below 6.0 may help reduce the tendency for calcium phosphate stones and pH greater than 6.0 may reduce the tendency for uric acid stone formation. Source: [facility] [email or web address] Current Interpretive Data was last revised on [...] ORDER MANJINDER Final Result Performing Organization Address [facility] Co de Phone Number [facility] [place] [address] [address] Department of Laboratories [place], [place] [id number] * (ABNORMAL) Urinalysis, microscopic only (03/18/2025 11:49 [...] ORDERABLES Final Resul t Performing Organization Address [facility] Co de Phone Number [facility] [place] [address] [address] Department of Laboratories [place], [place] [id number] * (ABNORMAL) Urine culture Urine, in and out catheter (03/18/2025 11:49 AM CDT) Report Final Report: Greater than or equal to 100,000 colonies/mL of Klebsiella pneumoniae Greater than or equal to 100,000 colonies/mL of Klebsiella pneumoniae #2 (.) Comment:Testing performed by : [facility], [address] [place]., [address] Organism KLEBSIELLA PNEUMONIAE [facility] Organism KLEBSIELLA PNEUMONIAE [facility] Urine, in and out catheter 03/18/2025 11:49 AM CDT 03/18/2025 6:29 PM CDT Narrative [facility] - 03/20/2025 10:30 AM CDT Urine culture reflexed based upon urinalysis results. Testing performed by [facility] Microbiology Laboratory ([phone]) Organism Antibiotic Method Susceptibility Klebsiella pneumoniae Ampicillin [...] pneumoniae Cefdinir INTERPRETATION Susceptible us Preethi Godoy [employer] LAB MICROBIOLOGY - GENERAL ORDER MANJINDER Final Result [facility] [address] [address] Department [place] [address] * MRI Cardiac M&F W WO Contrast [...] for uric acid stone formation. Source: [facility] [email or web address] Current Interpretive Data was last revised on [...] LAB MICROBIOLOGY - GENERAL ORDERABLES Final Result [facility] [address] [address] Department [place] [address] * (ABNORMAL) Urinalysis, microscopic only (02/25/2025 8:36 AM CDT) WBC, ur >50(A) 0 - 5 /HPF RBC, ur 0-2 0 - 2 /HPF [facility] CH Epithelial cells, squamous, ur 1-5 0 - 5 /HPF [facility] Bacteria, ur Trace(A) CERNER Mucous, ur Present(A) CERNER Hyaline casts, ur 1-5 0 - 10 /LPF [facility] Culture Reflex Comment Reflex to urine culture will be performed. [facility] Urine 02/25/2025 8:36 AM CDT 02/25/2025 3:09 PM CDT Ankit Pascal MD LAB URINE ORDERABLES Final Result Performing Organization Address [facility] Phone Number [facility] [address] [facility] Department [place] [address] * (ABNORMAL) Urine culture Urine (02/25/2025 8:36 AM CDT) Report Final Report: Greater than or equal to 100,000 colonies/mL of Klebsiella pneumoniae Plus growth of clinically insignificant bacterial alton. (.) Comment:Testing performed by : [facility], [address] [place]., [address] Organism KLEBSIELLA PNEUMONIAE [facility] Organism PLUS GROWTH OF CLINICALLY INSIGNIFICANT ALTON. [facility] Urine 02/25/2025 8:36 AM CDT 02/25/2025 6:25 PM CDT Narrative [facility] - 02/27/2025 11:00 AM CDT Urine culture reflexed based upon urinalysis results. Testing performed by [facility] Microbiology Laboratory ([phone]) Organism Antibiotic Method Susceptibility Klebsiella pneumoniae Ampicillin [...] GENERAL ORDERABLES Final Result Performing Organization Address [facility] Co de Phone Number [facility] [address] [address] Department [place] [address] * (ABNORMAL) POCT UA, AUTO W/O SCOPE (02/15/2025 4:30 PM CDT) Color, Urine, POC Yellow Clarity, ur, POC Cloudy(A) Clear Glucose, ur, POC Negative Negative Bilirubin, ur, POC Negative Negative Ketones, ur, POC Negative Negative Specific [place], POC 1.020 1.003 - 1.030 Blood, ur, [...] bacterial alton. (.) Comment:Testing performed by : [facility], [address] [place]., [address] Organism KLEBSIELLA PNEUMONIAE [facility] Organism PLUS GROWTH OF CLINICALLY INSIGNIFICANT ALTON. [facility] Urine, clean voided 02/15/2025 4:29 PM CDT 02/15/2025 10:46 PM CDT Narrative [facility] - 02/18/2025 6:27 AM CDT Testing performed by [facility] Microbiology Laboratory ([phone]) Organism Antibiotic Method Susceptibility Klebsiella pneumoniae Ampicillin [...] GENERAL ORDERABLES Final Result Performing Organization Address City/[facility]/ZIP Co de Phone Number [facility] [address] [address] Department [place] [address] * Lipid panel (01/26/2025 1:34 PM CDT) Blood Historical Provider LAB BLOOD ORDERABLES Laly l Result Performing Organization Address City/[facility] Co de Phone Number EXTERNAL LAB * TRANSTHORACIC ECHO (TTE) COMPLETE W DOPPLER/CF WO CONTRAST (01/21/2025 11:37 AM CDT) Estimated EF 50-55 % CONS SCIMAGE EF Mod BP 56 % CONS SCIMAGE Anatomical Region Laterality Modality Ultrasound 01/21/2025 11:2 0 AM CDT Narrative 01/21/2025 12:31 PM CDT [facility] Cardiology [address], [address], [place] [address] P:[phone] P:[phone] Echocardiographic Report Patient Name: AZIZA LOYA O : 1945 Study Date: 01/21/2025 11:20:02 AM Gender: M Tech: Location: [facility] Ref Provider: MADAI ENRIQUE Height(Cm): 178 BSA: [...] Procedure Note Harley Bowser MD - 01/21/2025 [facility] Cardiology [address], [address], [place] [address] P:[phone] P:[phone] Echocardiographic Report Patient Name: AZIZA LOYA O [...] tendency for uric acid stone formation. Source: [employer] Current Interpretive Data was last revised on [...] GENERAL ORDERABLES Final Result Performing Organization Address [facility] de Phone Number TRAVIS BROWNLEE [address] [address] [facility] [place] [address] * (ABNORMAL) Urinalysis, microscopic only (01/19/2025 12:03 PM CDT) WBC, ur 6-10(A) 0 - 5 /HPF RBC, ur 0-2 0 - 2 /HPF [facility] Epithelial cells, squamous, ur 1-5 0 - 5 /HPF [facility] Bacteria, ur Trace(A) [facility] Culture Reflex Comment Reflex conditions for urine culture (WBC >10) not met. [facility] Urine 01/19/2025 12:0 3 PM CDT 01/19/2025 7:25 PM CDT Aknit Pascal MD LAB URINE ORDERABLES Final Result Performing Organization Address [facility] de Phone Number [place] [address] [address] [place] [address] * XR Chest Pa Lateral 2 Views [...] Brown Ennis M.D. RW T: Report ID: [id number] Reading Location: [id number] Procedure Note Brown Ennis MD - 01/18/2025 [...] Brown Ennis M.D. RW T: Report ID: [id number] Reading Location: [id number] us Ankit Pascal MD IMG XR PROCEDURES [...] CERNER CH Neutrophil pct 76.2 % CERNER CH Comment: Interpretive Data Percent [...] Pascal MD LAB BLOOD ORDERABLES Final Result [facility] [id number] [address] Department of Laboratories [place], [place] [id number] * (ABNORMAL) CBC with auto differential (01/18/2025 11:20 AM CDT) WBC 9.34 3.80 - 9.90 K/cumm Hgb 11.4(L) 13.0 - 17.5 g/dL [facility] Hct 37.5(L) 38.9 - 50.3 % [facility] Plt 284 150 - 400 K/cumm [facility] MPV 9.9 9.1 - 12.3 fL [facility] RBC 3.75(L) 4.30 - 5.80 M/cumm [facility] MCV 100.0(H) 81.3 - 96.4 fL [facility] MCH 30.4 27.1 - 33.3 pg [facility] MCHC 30.4(L) 32.3 - 35.7 g/dL [facility] RDW CV 13.7 11.1 - 14.9 % [facility] RDW SD 50.4(H) 35.7 - 48.1 fL [facility] NRBC abs 0.00 0.00 - 0.01 K/cumm [facility] Blood 01/18/2025 11:2 0 AM CDT 01/18/2025 8:27 PM CDT us Ankit Pascal MD LAB BLOOD ORDERABLES Final Result Performing Organization Address City/State/[facility] Co az Phone Number [facility] [phone] [address] Department [place] [address] * Colonoscopy (10/21/2024 10:56 AM BUSINESS TEAM LEADER) Anatomical Region Laterality Modality Other Narrative Procedure Note Kath Shepherd MD - 10/21/2024 10:56 AM CST [facility] Patient Name: Aziza Loya Procedure Date: 10/21/2024 10:56 AM Date of : 1945 Admit Type: Outpatient Age: 79 Gender: Male Attending MD: Kath Shepherd M.D. Room: [facility] 3 Note Status: Addendum Procedure: [...] The scope was passed under direct vision.The [facility] [id number] endoscope was introducedthrough the anus and [...] Steven Ruano M.D. RB T: Report ID: [id number] Reading Location: [id number] Procedure Note Steven Ruano MD - 02/24/2024 [...] Steven Ruano M.D. RB T: Report ID: [id number] Reading Location: [place] [address] [place] [address] PROCEDURES Final Res [...] - GEN ERAL ORDERABLES Final Result [facility] [address] [address] Department [place] [address] from Last 3 Months or Most Recently Relevant to Health Maintenance Insurance [facility] MEDICARE MEDICARE [facility] MEDICARE [facility] MEDICARE [facility] MEDICARE [facility] Advance Directives For more information, please contact: [phone] * Full Code (Latest Code Status on [...] 10:45 AM 05/17/2022 5:55 PM Care Teams Environmental Services Lead Relationship Specialty Start Date End Date Preethi Godoy NP [address] [facility] 130 [place], [place] [id number] PCP - General Family Medicine 08/25/24 Kath Shepherd MD [address] [place] [address] Consulting Physician Gastroenterology 07/22/19 Peter Ya MD [address] [place] [address] Dietitian Teacher Cardiology 07/22/19 Aziza Ledesma MD [address] [place] [address] Consulting Physician Neurology 07/22/19 Joshua Butterfield MD [address] [facility] 200 [place] [address] Consulting Physician Urology 07/03/23 Jeffery Bustillos MD [address] [facility] 102 [place] [address] Consulting Physician Cardiovascular Disease 02/06/24 Shimon Schofield MD [facility] 120 [place] [address] Consulting Physician Vascular Surgery 02/06/24
--- OUTSIDE RECORDS SUMMARY | 2025-04-13 17:13 | XMS_ITS | Encounter Summary ---
Author Organization [facility] Healthcare Address [address] [place] [address] Care Team Providers Care Plumbing Mechanic Name Role Phone Kath Shepherd MD Unavailable [phone] Peter Ya MD Unavailable [phone] Vitaly Ledesma MD Unavailable [phone] Joshua Butterfield MD Unavailable [phone] Jeffery Bustillos MD Unavailable [phone] Shimon Schofield MD Unavailable Preethi Godoy NP Primary Care Provider [phone] Reason for Visit * Reason Onset Date Comments Medical Question/Miscellaneous 03/31/2025 Encounter Details Date Type Department Care Team (Late st Contact Info) Description 03/31/2025 Telephone [facility] Primary Care at [address] [address] Preethi Godoy NP [address] [place] [address] [address] [place] [address] Medical Question/Miscellaneous Social History Tobacco [...] on file 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 Gender Identity Not on file Sexual Orientation Not on file 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 Start 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 Job End Date 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 [employer] Not on [...] on filedocumented in this encounter Care Teams Plumbing Mechanic Relationship Specialty Start Date End Date Preethi Godoy NP 2 [facility] 130 [place] [address] PCP - General Family Medicine 08/25/24 Kath Shepherd MD [address] [place] [address] Consulting Physician Gastroenterology 07/22/19 Peter Ya MD [address] [place] [address] Insurance Administrator Cardiology 07/22/19 Vitaly Ledesma MD [address] [place] [address] Consulting Physician Neurology 07/22/19 Joshua Butterfield MD [address] [facility] 200 [place] [address] Consulting Physician Urology 07/03/23 Jeffery Bustillos MD [address] [facility] 102 [place] [address] Consulting Physician Cardiovascular Disease 02/06/24 Shimon Schofield MD [address] [facility] 120 [place] [address] Consulting Physician Vascular Surgery 02/06/24 documented as of this encounter
--- OUTSIDE RECORDS SUMMARY | 2025-04-13 17:13 | XMS_ITS | Encounter Summary ---
Author Organization [facility] Address [address] [place] [address] Phone Care Team Providers Care Classification And Treatment Director Name Role Phone John Kimbrough MD Primary Care Provider Kath Shepherd MD Unavailable [phone] Peter Ya MD Unavailable [phone] Vitaly Ledesma MD Unavailable [phone] Anayeli Lee MD Primary Care Provider Joshua Butterfield MD Unavailable [phone] Jeffery Bustillos MD Unavailable [phone] Shimon Schofield MD Unavailable Preethi Godoy NP Primary Care Provider [phone] Encounter Details Date Type Department Care Team [...] on file 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 2:24 AM CARD ASSEMBLER Gender Identity Not on file Sexual Orientation Not on file 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 Start 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 Job End Date 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 [employer] Not on [...] COVID: Suspected 08/21/2021 08/21/2021 08/21/2021 11:38 AM CARD ASSEMBLER COVID: Suspected 11/14/2024 11/14/2024 11/14/2024 10:49 AM CARD ASSEMBLER COVID: Suspected 11/14/2024 11/14/2024 11/14/2024 3:33 PM CARD ASSEMBLER RSV, droplet 11/14/2024 11/14/2024 11/21/2024 3:07 AM CARD ASSEMBLER COVID: Suspected 12/30/2024 12/30/2024 12/30/2024 7:54 PM CDT documented as of this encounter Care Teams Classification And Treatment Director Relationship Specialty Start Date End Date John Kimbrough MD PCP - General 11/08/16 07/02/23 Anayeli Lee MD [address] [place] [address] PCP - General Family Medicine 07/03/23 08/24/24 Preethi Godoy NP [address] [address] PCP - General Family Medicine 08/25/24 Kath Shepherd MD [address] [place] [address] Consulting Physician Gastroenterology 07/22/19 Peter Ya MD [address] [place] [address] Bone Cooking Operator Cardiology 07/22/19 Vitaly Ledesma MD [address] [place] [address] Consulting Physician Neurology 07/22/19 Joshua Butterfield MD [address] [address] Consulting Physician Urology 07/03/23 Jeffery Bustillos MD [address] [address] Consulting Physician Cardiovascular Disease 02/06/24 Shimon Schofield MD [address] [address] Consulting Physician Vascular Surgery 02/06/24 documented as of this encounter
--- OUTSIDE RECORDS SUMMARY | 2025-04-13 17:13 | XMS_ITS | Encounter Summary ---
Author Organization [facility] Healthcare Address [address] [place] [address] Care Team Providers Care Cashier Wrapper Name Role Phone Kath Shepherd MD Unavailable [phone] Peter Ya MD Unavailable [phone] Vitaly Ledesma MD Unavailable [phone] Anayeli Lee MD Primary Care Provider Joshua Butterfield MD Unavailable [phone] Jeffery Bustillos MD Unavailable [phone] Shimon Schofiedl MD Unavailable Preethi Godoy NP Primary Care Provider [phone] Encounter Details Date Type Department Care Team (Late st Contact Info) Description 05/17/2024 Orders Only [facility] Health Information Management [address] [place] [address] Scanning, Provider Social History Tobacco Use [...] on file 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 2:24 AM TWISTER FRAME TENDER Gender Identity Not on file Sexual Orientation Not on file 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 Job 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 130 [place] [address] PCP - General Family Medicine 08/25/24 Kath Shepherd MD [address] [place] [address] Consulting Physician Gastroenterology 07/22/19 Peter Ya MD [address] [place] [address] Services Coordinator Cardiology 07/22/19 Vitaly Ledesma MD [address] [place] [address] Consulting Physician Neurology 07/22/19 Joshua Butterfield MD [address] [place] [address] 200 [place] [address] Consulting Physician Urology 07/03/23 Jeffery Bustillos MD [address] [facility] [address] [place] [address] Consulting Physician Cardiovascular Disease 02/06/24 Shimon Schofield MD [address] [facility] 120 [place] [address] Consulting Physician Vascular Surgery 02/06/24 documented as of this encounter
--- OUTSIDE RECORDS SUMMARY | 2025-04-13 17:13 | XMS_ITS | Encounter Summary ---
Author Organization [facility] Healthcare Address [address] [place] [address] Care Team Providers Care Fruit Preserver Name Role Phone Kath Shepherd MD Unavailable [phone] Peter Ya MD Unavailable [phone] Vitaly Ledsema MD Unavailable [phone] Joshua Butterfield MD Unavailable [phone] Jeffery Bustillos MD Unavailable [phone] Shimon Schofield MD Unavailable Preethi Godoy NP Primary Care Provider [phone] Encounter Details Date Type Department Care Team (Late st Contact Info) Description 03/18/2025 Results Follow-Up [facility] Primary Care at [address] [address] Ilana Powers NP [address] [place] [address] [address] [place] [address] Urinalysis reflex to microscopic and [...] on file 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 Gender Identity Not on file Sexual Orientation Not on file 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 Start Date Job End 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 [employer] 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 file Not on file Not on file documented as of this encounter Plan of Treatment Not on file documented as of this encounter Visit Diagnoses Not on filedocumented in this encounter Care Teams Fruit Preserver Relationship Specialty Start Date End Date Preethi Godoy NP [address] [facility] 130 [place] [address] PCP - General Family Medicine 08/25/24 Kath Shepherd MD [address] [place] [address] Consulting Physician Gastroenterology 07/22/19 Peter Ya MD [address] [place] [address] Poured Concrete Wall Technician Cardiology 07/22/19 Vitaly Ledesma MD [address] [place] [address] Consulting Physician Neurology 07/22/19 Joshua Butterfield MD [address] [facility] [address] [place] [address] [place] [id number] Consulting Physician Urology 07/03/23 Jeffery Bustillos MD [address] [address] Consulting Physician Cardiovascular Disease 02/06/24 Shimon Schofield MD [address] [address] Consulting Physician Vascular Surgery 02/06/24 documented as of this encounter
--- OUTSIDE RECORDS SUMMARY | 2025-04-13 17:14 | XMS_ITS | Encounter Summary ---
Author Organization [place] [facility] Address [address] [place] [address] Phone Care Team Providers Care Instructional Materials Director Name Role Phone John Kimbrough MD Primary Care Provider Kath Shepherd MD Unavailable [phone] Peter Ya MD Unavailable [phone] Vitaly Ledesma MD Unavailable [phone] Anayeli Lee MD Primary Care Provider Joshua Butterfield MD Unavailable [phone] Jeffery Bustillos MD Unavailable [phone] Shimon Schofield MD Unavailable Preethi Godoy NP Primary Care Provider [phone] Encounter Details Date Type Department Care Team (Late st Contact Info) Description 08/21/2021 Telephone [facility] Oncology [address] [facility] [address] [place] [id number] Maribel Shore CPhT Social History Tobacco Use [...] on file 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 Gender Identity Not on file Sexual Orientation Not on file 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 Start 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 Job End Date 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 [employer]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 Not on file Not on file documented as of this encounter Plan of Treatment Not on file documented as of this encounter Visit Diagnoses Not on filedocumented in this encounter Additional Health Concerns Infection Onset Date Last Indicated Resolved Time COVID: Suspected 08/21/2021 08/21/2021 08/21/2021 11:38 AM DISPENSER OPERATOR COVID: Suspected 11/14/2024 11/14/2024 11/14/2024 10:49 AM DISPENSER OPERATOR COVID: Suspected 11/14/2024 11/14/2024 11/14/2024 3:33 PM DISPENSER OPERATOR RSV, droplet 11/14/2024 11/14/2024 11/21/2024 3:07 AM DISPENSER OPERATOR COVID: Suspected 12/30/2024 12/30/2024 12/30/2024 7:54 PM CDT documented as of this encounter Care Teams Instructional Materials Director Relationship Specialty Start Date End Date John Kimbrough MD PCP - General 11/08/16 07/02/23 Anayeli Lee MD [address] [place] [address] PCP - General Family Medicine 07/03/23 08/24/24 Preethi Godoy NP [address] [address] PCP - General Family Medicine 08/25/24 Kath Shepherd MD [address] [place] [address] Consulting Physician Gastroenterology 07/22/19 Peter Ya MD [address] [place] [address] Pompom Maker Cardiology 07/22/19 Vitaly Ledesma MD [address] [place] [address] Consulting Physician Neurology 07/22/19 Joshua Butterfield MD [address] [address] [place], [place] [address] Consulting Physician Urology 07/03/23 Jeffery Bustillos MD [address] [facility] 102 [place] [address] Consulting Physician Cardiovascular Disease 02/06/24 Shimon Schofield MD [address] [address] Consulting Physician Vascular Surgery 02/06/24 documented as of this encounter
--- OUTSIDE RECORDS SUMMARY | 2025-04-13 17:14 | XMS_ITS | Encounter Summary ---
Author Organization [place] [facility] Address [address] [place] [address] Phone Care Team Providers Care Green Building Design Specialist Name Role Phone John Kimbrough MD Primary Care Provider [phone] Kath Shepherd MD Unavailable [phone] Peter Ya MD Unavailable [phone] Vitaly Ledesma MD Unavailable [phone] Anayeli Lee MD Primary Care Provider Joshua Butterfield MD Unavailable Jeffery Bustillos MD Unavailable [phone] Shimon Schofield MD Unavailable Preethi Godoy NP Primary Care Provider Encounter Details Date Type Department Care Team (Late st Contact Info) Description 02/03/2020 Telephone [facility] Gastroenterology [facility] 8th [place] [address] [place] [address] Sherie Yoo, [facility] Social History Tobacco Use Types Packs/Day Years Used Date Smoking Tobacco: Former Smokeless Tobacco: Never Alcohol Use Standard Drinks/Week Comments No 0 (1 standard drink = 0.6 oz pur e alcohol) Sex and Gender Information Value Date Recorded Sex Assigned at Not on file 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 Gender Identity Not on file Sexual Orientation Not on file documented as of this encounter Plan of Treatment Not on file documented as of this encounter Visit Diagnoses Not on filedocumented in this encounter Additional Health Concerns Infection Onset Date Last Indicated Resolved Time COVID: Suspected 08/21/2021 08/21/2021 08/21/2021 11:38 AM LIBRARY 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 COVID: Suspected 11/14/2024 11/14/2024 11/14/2024 10:49 AM LIBRARY 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 COVID: Suspected 11/14/2024 11/14/2024 11/14/2024 3:33 PM LIBRARY 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 RSV, droplet 11/14/2024 11/14/2024 11/21/2024 3:07 AM LIBRARY 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 COVID: Suspected 12/30/2024 12/30/2024 12/30/2024 7:54 PM CDT documented as of this encounter Care Teams Green Building Design Specialist Relationship Specialty Start Date End Date John Kimbrough MD PCP - General 11/08/16 07/02/23 Anayeli Lee MD [address] [place] [address] PCP - General Family Medicine 07/03/23 08/24/24 Preethi Godoy NP [address] [address] PCP - General Family Medicine 08/25/24 Kath Shepherd MD [address] [place] [address] Consulting Physician Gastroenterology 07/22/19 Peter Ya MD [address] [place] [address] Miniature Set Builder Cardiology 07/22/19 Vitaly Ledesma MD [address] [place] [address] Consulting Physician Neurology 07/22/19 Joshua Butterfield MD [address] [facility] [address] [facility] 200 [place] [address] Consulting Physician Urology 07/03/23 Jeffery Bustillos MD [address] [facility] 162 [facility] 102 [place] [address] Consulting Physician Cardiovascular Disease 02/06/24 Shimon Schofield MD [address] [address] Consulting Physician Vascular Surgery 02/06/24 documented as of this encounter
--- OUTSIDE RECORDS SUMMARY | 2025-04-13 17:14 | XMS_ITS | Encounter Summary ---
Author Organization [facility] Address [address] [place] [address] Care Team Providers Care Violin Teacher Name Role Phone John Kimbrough MD Primary Care Provider [phone] Kath Shepherd MD Unavailable [phone] Peter Ya MD Unavailable [phone] Vitaly Ledesam MD Unavailable [phone] Anayeli Lee MD Primary Care Provider Joshua Butterfield MD Unavailable [phone] Jeffery Bustillos MD Unavailable [phone] Shimon Schofield MD Unavailable Preethi Godoy NP Primary Care Provider Encounter Details Date Type Department Care Team (Late st Contact Info) Description 03/26/2019 Documentation [facility] [address] [place] [address] Kaykay Jason, TEDDY Social History Tobacco Use Types Packs/Day Years Used Date Smoking Tobacco: Former Smokeless Tobacco: Never Alcohol Use Standard Drinks/Week Comments No 0 (1 standard drink = 0.6 oz pur e alcohol) Sex and Gender Information Value Date Recorded Sex Assigned at Not on file 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 DOOR 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 Gender Identity Not on file Sexual Orientation Not on file documented as of this encounter Plan of Treatment Not on file documented as of this encounter Visit Diagnoses Not on filedocumented in this encounter Additional Health Concerns Infection Onset Date Last Indicated Resolved Time COVID: Suspected 08/21/2021 08/21/2021 08/21/2021 11:38 AM DOOR FRAMER COVID: Suspected 11/14/2024 11/14/2024 11/14/2024 10:49 AM DOOR FRAMER COVID: Suspected 11/14/2024 11/14/2024 11/14/2024 3:33 PM DOOR FRAMER RSV, droplet 11/14/2024 11/14/2024 11/21/2024 3:07 AM DOOR FRAMER COVID: Suspected 12/30/2024 12/30/2024 12/30/2024 7:54 PM CDT documented as of this encounter Care Teams Violin Teacher Relationship Specialty Start Date End Date John Kimbrough MD PCP - General 11/08/16 07/02/23 Anayeli Lee MD [address] [place] [address] PCP - General Family Medicine 07/03/23 08/24/24 Preethi Godoy NP [address] [address] PCP - General Family Medicine 08/25/24 Kath Shepherd MD [address] [place] [address] Consulting Physician Gastroenterology 07/22/19 Peter Ya MD [address] [place] [address] Flight Software Test Engineer Cardiology 07/22/19 Vitaly Ledesma MD [address] [place] [address] Consulting Physician Neurology 07/22/19 Joshua Butterfield MD [address] [facility] 200 [place] [address] Consulting Physician Urology 07/03/23 Jeffery Bustillos MD [address] [facility] 102 [place] [address] Consulting Physician Cardiovascular Disease 02/06/24 Shimon Schofield MD [address] [address] Consulting Physician Vascular Surgery 02/06/24 documented as of this encounter
--- OUTSIDE RECORDS SUMMARY | 2025-04-13 17:14 | XMS_ITS | Encounter Summary ---
Author Organization [facility] Healthcare Address [address] [place] [address] Care Team Providers Care Business Applications Manager Name Role Phone Kath Shepherd MD Unavailable [phone] Peter Ya MD Unavailable [phone] Vitaly Ledesma MD Unavailable [phone] Joshua Butterfield MD Unavailable [phone] Jeffery Bustillos MD Unavailable [phone] Shimon Schofield MD Unavailable Preethi Godoy NP Primary Care Provider [phone] Encounter Details Date Type Department Care Team (Late st Contact Info) Description 04/12/2025 Results Follow-Up [facility] at [address] [address] Gladys Valdovinos NP [address] [place] [address] [address] [place] [address] Aerobic and anaerobic culture and [...] you are drinking? 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 15 g 04/12/2025 5 documented in this encounter Miscellaneous Notes * Result Encounter Note - Dedra Payne MA - 04/13/2025 2:36 PM CDT Called patients and informed her about his test results. She said he was in the ER and was being admitted for a toe infection. I informed her that we sent medications to the pharmacy and that shania started them when he gets a chance and to follow up with his PCP if he is not improving. She had a good understanding. documented in this encounter Plan of Treatment Not on file documented as of this encounter Visit Diagnoses Not on filedocumented in this encounter Care Teams Business Applications Manager Relationship Specialty Start Date End Date Preethi Godoy NP [facility] [address] [place] [address] PCP - General Family Medicine 08/25/24 Kath Shephred MD [address] [place] [address] Consulting Physician Gastroenterology 07/22/19 Peter Ya MD [address] [place] [address] Load Dispatcher Cardiology 07/22/19 Vitaly Ledesma MD [address] [place] [address] Consulting Physician Neurology 07/22/19 Joshua Butterfield MD [address] [facility] [address] [place] [address] Consulting Physician Urology 07/03/23 Jeffery Bustillos MD [address] [facility] [address] [facility] [address] [place] [address] Consulting Physician Cardiovascular Disease 02/06/24 Shimon Schofield MD [address] [address] Consulting Physician Vascular Surgery 02/06/24 documented as of this encounter
--- NOTE | 2025-04-13 17:48 | PC.NURSE ---
EDP, Eve asking for doppler to left foot for pedal pulses as she could not feel them. Dopple performed, pulse heard clearly.
[2025-04-13] MEDS: CEFEPIME 2 GM in SODIUM CHLORIDE 0.9% IV 50 ML 100 ML IVPB (18:23)
[2025-04-13] MEDS: VANCOMYCIN 1,250 MG/NS 250 ML 1,250 MG/250 ML BAG 166.67 MG IVPB (18:24)
[2025-04-13 18:33] VITALS: BP 133/83; PULSE 80; RESP 16; O2SAT 100
[2025-04-13 21:25] VITALS: BMI 18.5
--- NOTE | 2025-04-13 21:58 | ADMGEN ---
This patient, Vitaly Oreilly, was admitted to [facility] Surg Room 331-02. Patient/family oriented to hospital policies and general routines including ID bracelet, bed and alarms, visiting hours, pain management, procedures, bathroom and other care routines, personal items, smoking policy, room service/diet, and visiting hours. Information on how to activate the Rapid Response Team has been discussed. Patient/Family are encouraged to report perceived risks to care and to ask questions if they do not understand what they are told or what they should do.
[2025-04-13 22:00] VITALS: BP 119/77; PULSE 78; RESP 16; TEMP 36.8; O2SAT 98
[2025-04-13] MEDS: MICONAZOLE NITRATE 2% CREAM 30 GM TUBE 1 APPLIC TOPICAL (22:28)
[2025-04-13] MEDS: TRIAMCINOLONE ACET 0.1% CREAM 15 GM TUBE 1 APPLIC TOPICAL (22:28)
[2025-04-14 06:00] VITALS: BP 123/74; PULSE 77; RESP 18; TEMP 36.9; O2SAT 99
[2025-04-14 06:30] LABS: Hematocrit 32.4 % (42.0-52.0); Hemoglobin 10.8 g/dL (14.0-18.0); Mean Corpuscular HGB Conc 33.3 g/dl (32-36); Mean Corpuscular Hemoglobin 31.8 pg (26-34); Mean Corpuscular Volume 95.3 fl (80-100); Platelet Count Result 162 k/mm3 (150-375); Red Blood Count 3.40 M/mm3 (4.6-6.20); White Blood Count 9.3 K/mm3 (4.5-10.0)
[2025-04-14 06:53] LABS: Anion Gap 9 mmol/L (4-12); Blood Urea Nitrogen 37 mg/dL (9-20); Calcium 8.9 mg/dL (8.4-10.2); Carbon Dioxide 23 mmol/L (22-30); Chloride 105 mmol/L (98-107); Estimated CRCL calculation 19 ml/min; Estimated Glomerular Filt Rate 25; Glucose 89 mg/dL (65-110); Potassium 3.2 mmol/L (3.4-5.0); Sodium 137 mmol/L (137-145)
[2025-04-14] MEDS: FERROUS SULFATE 325 MG TABLET DR BY MOUTH (09:01)
[2025-04-14] MEDS: MEMANTINE 10 MG TABLET PO ×2 (09:01→17:48)
[2025-04-14] MEDS: ASPIRIN 81 MG ENTERIC TABLET PO (09:01)
[2025-04-14] MEDS: TRIAMCINOLONE ACET 0.1% CREAM 15 GM TUBE 1 APPLIC TOPICAL ×2 (09:03→20:36)
[2025-04-14] MEDS: MICONAZOLE NITRATE 2% CREAM 30 GM TUBE 1 APPLIC TOPICAL ×2 (09:03→20:36)
--- NOTE | 2025-04-14 10:00 | PM.IMHP ---
H&P: HPI History of Present Illness Date/Time: 04/14/25 10:00 Chief Complaint: Left toe infection Narrative: 79-year-old male with a past medical history that includes, but is not limited, to of multiple infarct dementia dementia, BPH with incomplete bladder emptying, atrial fibrillation, seizure disorder, chronic kidney disease stage 3, peripheral artery disease and gout who presented to the ER due to left great toe infection. The patient went to his checkering machine adjuster office on the and had his great toenail removed. A 1 week later began having erythema to the dorsum of the toe and foot. He was started on doxycycline on the and was taking it twice daily but erythema was not improving and was actually worsening. He contacted is checkering machine adjuster to recommend he come to the ER for evaluation and treatment checkering machine adjuster told the patient that he needed to be placed on Zosyn. The patient had not been having any drainage or pain from the toe. The patient at the time of my evaluation is alert oriented to person in to the fact that he is at [facility]. He stated he did not know the month or year. He denied any difficulty with urination but evidently a straight caths intermittently at home due to urinary retention. In the ER patient was afebrile and did not have a white count. His creatinine was elevated above baseline with normal potassium. UA was suspicious for possible UTI but had moderate squamous cells. The patient is a poor historian. He had difficulty even telling me what he used to do for work and when I asked how many children he had he said that they had a lot of children running around and as such HPI and history was supplemented by review of past medical records, external records and ER physician report. Review of Systems Review of Systems: Review of systems limited due to patient's confusion. However patient denied any shortness of breath, cough, congestion, headache, nausea or vomiting he reported normal appetite PMFSH Past Medical History Medical History (Updated 04/14/25 @ 10:08 by Sydni Orta DO) 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 Intermittent self-catheterization of bladder Cardiomyopathy Recurrent incisional hernia Atrial fibrillation with RVR Heart failure Systolic heart failure with EF of 40-45%, severe biatrial enlargement, moderate mitral and tricuspid regurgitation, reduced right ventricular systolic function, indeterminate diastolic function Chronic anemia Vascular dementia Seizures B12 deficiency Depression Gout Osteoarthritis Iron deficiency anemia Benign prostatic hyperplasia Kidney stones Chronic kidney disease, stage 3 Crohn's disease Hyperlipidemia Hypertension Peripheral vascular disease Coronary artery disease Surgical History Surgical History (Updated 04/14/25 @ 10:21 by Sydni Orta DO) History of amputation of left fourth toe S/P CABG (coronary artery bypass graft) History of bilateral cataract extraction History of lithotripsy History of partial colectomy X2 for to bowel obstructions and fistula secondary to Crohn's disease. History of cholecystectomy History of vascular surgery Bilateral lower extremity stents. History of coronary artery bypass graft Family History Family History Father Myocardial infarct Cerebrovascular accident Mother Breast cancer Sibling Crohn's disease Social History Social History Social History: Surrogate decision maker: Sarah Oreilly, spouse. Code status: Do not resuscitate. Smoking packs per day: 2 Smoking cigarettes per day: 40.0 Years smoked: 25 Smoking pack-years: 50.00 Smoking status: Former smoker Second hand tobacco smoke exposure: No Alcohol intake: former Substance use: never Substance use type: does not use Do You Feel Safe in your Home?: Yes Lack of Transportation: No Lack of Food: Never True Current Housing: I Have Housing Concerned About Future Housing: No Difficulty Paying Gas/Electric Bills: No Difficulty Paying for Meds: No Currently Unemployed: No Education: Trade/Vocational Certificate Difficulty w/ Childcare or Family Care: No Additional living arrangements comments: The patient lives with his in [place]. Additional occupation/education comments: Retired from [employer]. Spiritual care concerns: No Meds Home Medications and Allergies Home Medications ?Medication ?Instructions ?Recorded ?Confirmed ?Type allopurinol 100 mg tablet 100 mg PO HS 11/08/23 04/13/25 History aspirin 81 mg tablet 81 mg PO DAILY 11/08/23 04/13/25 History atorvastatin 10 mg tablet 10 mg PO QPM 11/08/23 04/13/25 History cilostazol 100 mg tablet 100 mg PO HS 11/08/23 04/13/25 History furosemide 40 mg tablet 40 mg PO DAILY 05/12/24 04/13/25 History ferrous sulfate 325 mg (65 mg 325 mg PO DAILY@0800 11/28/24 04/13/25 History iron) tablet (FeroSul) levetiracetam 750 mg tablet 750 mg PO Q12HR 30 days #180 tabs 12/21/24 04/13/25 Rx escitalopram oxalate 20 mg tablet 20 mg PO HS 01/04/25 04/13/25 History loperamide 2 mg capsule 2 mg PO Q1-3H PRN loose stool 01/05/25 04/13/25 History (Anti-Diarrheal (loperamide)) memantine 10 mg tablet 10 mg PO BID #180 tabs 03/07/25 04/13/25 Rx donepezil 10 mg tablet 5 mg PO DAILY 04/13/25 04/13/25 History metoprolol tartrate 25 mg tablet 75 mg PO HS 04/13/25 04/13/25 History Allergies Allergy/AdvReac Type Severity Reaction Status Date / Time No Known Allergies Allergy Verified 01/04/25 16:56 Vital Signs Vital Signs - 24 hr 04/13/25 12:14 04/13/25 14:07 04/13/25 15:51 Temperature 98 F 97.6 F Pulse Rate 80 82 88 Respiratory Rate 16 Blood Pressure 99/66 L 123/66 122/66 Pulse Oximetry 93 99 97 Oxygen Delivery 04/13/25 18:33 04/13/25 22:00 04/13/25 22:38 Temperature 98.2 F Pulse Rate 80 78 Respiratory Rate 16 16 Blood Pressure 133/83 119/77 Pulse Oximetry 100 98 Oxygen Delivery Room Air 04/14/25 06:00 Temperature 98.4 F Pulse Rate 77 Respiratory Rate 18 Blood Pressure 123/74 Pulse Oximetry 99 Oxygen Delivery Exam Narrative: Weight 60.2 kg BMI 18.5 Const: Other: No acute distress, thin body habitus, appears stated age HENMT: Other: Upper and lower dentures in place, mucous membranes are tacky, no oral pharyngeal erythema, head is normocephalic atraumatic Eyes: Other: Pupils are equal and reactive, bilateral lens implants noted Neck: Other: No lymphadenopathy, no thyromegaly Resp: Other: Decreased breath sounds at the bases, no increased work of breathing Cardio: Other: Regular rate, regular rhythm, 2+ bilateral radial pulses, 1+ bilateral pedal pulses GI: Other: Soft, nontender, suprapubic fullness : Other: Suprapubic fullness, urinary incontinence Back/Spine/Pelvis: Other: Thoracic kyphosis Skin: Other: Vascular dermatitis bilateral lower extremities, erythema to the left great toe up into the dorsum of the foot along the 1st ray, yellow discharge from the nailbed of the left great toe Neuro: Other: Alert oriented person and place, speech is clear patient's conversational, the at least moderate hearing loss, no gross motor deficits noted during the course conversation Extrem: Other: No clubbing, cyanosis or edema, moves all extremities equally, see comments under skin exam for left foot Psych: Other: Pleasantly confused, cooperative, poor judgment and insight H&P: Results Labs Labs: Short CBC 04/13/25 04/14/25 Range/Units 12:56 06:16 WBC 9.4 9.3 (4.5-10.0) K/mm3 Hgb 11.6 L 10.8 L (14.0-18.0) g/dL Hct 36.0 L 32.4 L (42.0-52.0) % Plt Count 206 162 (150-375) k/mm3 BMP 04/13/25 04/14/25 12:56 06:16 Sodium 140 137 Potassium 3.5 3.2 L Chloride 104 105 Carbon Dioxide 25 23 BUN 37 H D 37 H Creatinine 2.81 H 2.52 H Glucose 98 89 Calcium 9.0 8.9 Liver Function 04/13/25 Range/Units 12:56 Total Bilirubin 0.5 (0.2-1.3) mg/dL AST 44 (17-59) U/L ALT 36 (6-50) U/L Alkaline Phosphatase 105 (38-126) U/L Albumin 4.1 (3.5-5.1) g/dL Urine 04/13/25 Range/Units 12:56 Urine Color Yellow (Yellow) Urine Appearance Turbid H (Clear) Urine pH 5.5 (5.0-9.0) Ur Specific [place] 1.009 (1.001-1.035) Urine Protein Trace (Negative) mg/dL Urine Glucose (UA) Negative (Negative) mg/dL Laboratory Tests 04/14/25 06:16 04/14/25 06:16 04/13/25 04/14/25 12:56 06:16 WBC 9.4 9.3 RBC 3.71 L 3.40 L Hgb 11.6 L 10.8 L Hct 36.0 L 32.4 L MCV 97.0 95.3 MCH 31.3 31.8 MCHC 32.2 33.3 RDW 15.3 H 15.1 H Plt Count 206 162 MPV 9.5 9.6 Immature Gran % (Auto) 0.5 Neut % (Auto) 72.8 Lymph % (Auto) 13.5 L [place] % (Auto) 8.4 Eos % (Auto) 4.1 Baso % (Auto) 0.7 Lymph # (Auto) 1.27 [place] # (Auto) 0.8 H Eos # (Auto) 0.4 H Baso # (Auto) 0.1 Abs Immat Gran (auto) 0.05 H Absolute Neuts (auto) 6.9 H Absolute Nucleated RBC 0.000 Nucleated RBC % 0.0 PT 15.4 H INR 1.2 APTT 31.7 Sodium 140 137 Potassium 3.5 3.2 L Chloride 104 105 Carbon Dioxide 25 23 Anion Gap 11 9 BUN 37 H D 37 H Creatinine 2.81 H 2.52 H Estim Creat Clear Calc 21 19 Estimated GFR 22 L 25 L Glucose 98 89 Lactic Acid 1.6 Calcium 9.0 8.9 Total Bilirubin 0.5 AST 44 ALT 36 Alkaline Phosphatase 105 C-Reactive Protein < 0.5 Total Protein 7.8 Albumin 4.1 Urine Color Yellow Urine Appearance Turbid H Urine pH 5.5 Ur Specific [place] 1.009 Urine Protein Trace Urine Glucose (UA) Negative Urine Ketones Negative Ur Blood (Man) 1+ H Urine Nitrate Positive H Urine Bilirubin Negative Urine Urobilinogen 0.2 Add Ur Microanalysis Reviewed Leukocyte Esterase Rfl 3+ H Urine RBC 0-2 Urine WBC >100 H Urine WBC Clumps Present H Ur Squamous Epith Cells Moderate Urine Bacteria 4+ H Urine Casts 3-5 Impressions Venous Doppler Study 04/13/25 13:29 Impression: No evidence of deep venous thrombosis Foot X-Ray 04/13/25 13:34 Impression: 1: No acute abnormality of the left foot. No evidence for osteomyelitis. If there is clinical concern for osteomyelitis, correlation with MRI with contrast recommended. EKG:Test Date: 2025-04-13 14:10:05 Measurements Intervals [place] Rate: 91 P: 0 UT: 0 QRS: 72 QRSD: 102 T: 53 QT: 401 QTc: 494 Interpretive Statements ATRIAL FIBRILLATION WITH ABERRANT CONDUCTION OR VENTRICULAR PREMATURE COMPLEXES NONSPECIFIC ST & T-WAVE ABNORMALITY ABNORMAL ECG All imaging and EKGs personally reviewed and interpreted. And unless stated otherwise agree with radiologic and cardiology interpretation. Assessment and Plan Assessment and plan (1) Cellulitis of foot: Code(s): L03.119 - Cellulitis of unspecified part of limb Status: Acute Assessment and Plan: Continue antibiotic therapy with cefepime and vancomycin. Will monitor for erythema and repeat CBC in a.m.. (2) Acute kidney injury superimposed on chronic kidney disease: Code(s): N17.9 - Acute kidney failure, unspecified; N18.9 - Chronic kidney disease, unspecified Status: Acute Assessment and Plan: Likely due to a combination of the patient's chronic obstructive uropathy and acute kidney injury the patient appears intervascular volume depleted. However he does have significant history of biventricular heart failure with cardiomyopathy and AFib. I would like to hold off on giving the patient additional IV fluids at this time and instead will hold the patient's home diuretics. Will schedule straight caths q.i.d. and repeat electrolyte panel in a.m.. Avoid nephrotoxic medications. (3) Abnormal urinalysis: Code(s): R82.90 - Unspecified abnormal findings in urine Status: Acute Assessment and Plan: Patient does have nitrates and esterase and is a urinalysis but continue may need with moderate squamous cells. Patient is not a reliable historian to provide information regarding urinary symptomatology. However patient is afebrile and does not acutely appear to be acutely ill. He is are receiving antibiotics for cellulitis of the lower extremity. Will order urine culture as the culture did not reflex due to squamous cells. Will await results. (4) Dermatitis: Code(s): L30.9 - Dermatitis, unspecified Status: Acute Assessment and Plan: Dermatitis due to peripheral artery disease (5) Tinea cruris: Code(s): B35.6 - Tinea cruris Status: Acute Assessment and Plan: Status post toenail removal Quality VTE Prophylaxis VTE prophylaxis: mechanical ordered (SCDs) Hospitalist MIPS Advance Care Plan I have confirmed that the patient's Advanced Care Plan is present, code status is documented, or surrogate decision maker is listed in patient medical record.: Yes Medication Reconciliation I have utilized all available resources to obtain, update and review the patients current medications (includes all prescriptions, OTC, herbals, cannabis, and nutritional supplements).: Yes
[2025-04-14 14:00] VITALS: BP 125/72; PULSE 94; RESP 16; TEMP 36.6; O2SAT 100
--- NOTE | 2025-04-14 14:40 | PM.IMPN ---
Progress Note: A&P Assessment and Plan (1) Cellulitis of foot: Code(s): L03.119 - Cellulitis of unspecified part of limb Status: Acute Assessment and Plan: Continue antibiotic therapy with cefepime and vancomycin. Will monitor for erythema and repeat CBC in a.m.. (2) Acute kidney injury superimposed on chronic kidney disease: Code(s): N17.9 - Acute kidney failure, unspecified; N18.9 - Chronic kidney disease, unspecified Status: Acute Assessment and Plan: Likely due to a combination of the patient's chronic obstructive uropathy and acute kidney injury the patient appears intervascular volume depleted. However he does have significant history of biventricular heart failure with cardiomyopathy and AFib. I would like to hold off on giving the patient additional IV fluids at this time and instead will hold the patient's home diuretics. Will schedule straight caths q.i.d. and repeat electrolyte panel in a.m.. Avoid nephrotoxic medications. (3) Abnormal urinalysis: Code(s): R82.90 - Unspecified abnormal findings in urine Status: Acute Assessment and Plan: Patient does have nitrates and esterase and is a urinalysis but continue may need with moderate squamous cells. Patient is not a reliable historian to provide information regarding urinary symptomatology. However patient is afebrile and does not acutely appear to be acutely ill. He is are receiving antibiotics for cellulitis of the lower extremity. Will order urine culture as the culture did not reflex due to squamous cells. Will await results. (4) Dermatitis: Code(s): L30.9 - Dermatitis, unspecified Status: Acute Assessment and Plan: Dermatitis due to peripheral artery disease (5) Tinea cruris: Code(s): B35.6 - Tinea cruris Status: Acute Assessment and Plan: Status post toenail removal Plan 79 y/o male with history of dementia s/p removal ingrown toe nail on the March 30 by his instrument technician apprentice, he presented to ER with redness and swelling of the toe, suspect it infected and started the patient on Cefepime and vancomycin, will follow up with on blood culture, will consult ortho for further recommendations. patient has rash along his arm, back, buttock and growing, applying nystatin will monitor Subjective Date/time seen: 04/14/25 14:40 Interval history: Left toe infection H&P-Narrative: 79-year-old male with a past medical history that includes, but is not limited, to of multiple infarct dementia dementia, BPH with incomplete bladder emptying, atrial fibrillation, seizure disorder, chronic kidney disease stage 3, peripheral artery disease and gout who presented to the ER due to left great toe infection. The patient went to his instrument technician apprentice office on the and had his great toenail removed. A 1 week later began having erythema to the dorsum of the toe and foot. He was started on doxycycline on the and was taking it twice daily but erythema was not improving and was actually worsening. He contacted is instrument technician apprentice to recommend he come to the ER for evaluation and treatment instrument technician apprentice told the patient that he needed to be placed on Zosyn. The patient had not been having any drainage or pain from the toe. The patient at the time of my evaluation is alert oriented to person in to the fact that he is at [facility]. He stated he did not know the month or year. He denied any difficulty with urination but evidently a straight caths intermittently at home due to urinary retention. In the ER patient was afebrile and did not have a white count. His creatinine was elevated above baseline with normal potassium. UA was suspicious for possible UTI but had moderate squamous cells. The patient is a poor historian. He had difficulty even telling me what he used to do for work and when I asked how many children he had he said that they had a lot of children running around and as such HPI and history was supplemented by review of past medical records, external records and ER physician report. 79 y/o male with history of dementia s/p removal ingrown toe nail on the March 30 by his instrument technician apprentice, he presented to ER with redness and swelling of the toe, suspect it infected and started the patient on Cefepime and vancomycin, will follow up with on blood culture, will consult ortho for further recommendations. patient has rash along his arm, back, buttock and growing, applying nystatin will monitor Review of Systems Review of Systems: Review of systems limited due to patient's confusion. However patient denied any shortness of breath, cough, congestion, headache, nausea or vomiting he reported normal appetite Exam Narrative: Patient is comfortable, NAD HEENT: eyes are clear and none icteric LUNGS:CTA HEART: RR S1S2 ABD: BS+, Soft and nontender Lower extremities: no edema SKIN: nonjaundiced Neuro: grossly intact. Objective Data Vital Signs Vital Signs: Vital Signs - 24 hr 04/13/25 15:51 04/13/25 18:33 04/13/25 22:00 Temperature 36.8 C Pulse Rate 88 80 78 Respiratory Rate 16 16 16 Blood Pressure 122/66 133/83 119/77 Pulse Oximetry 97 100 98 Oxygen Delivery 04/13/25 22:38 04/14/25 06:00 Temperature 36.9 C Pulse Rate 77 Respiratory Rate 18 Blood Pressure 123/74 Pulse Oximetry 99 Oxygen Delivery Room Air Intake/Output Intake/Output: Intake & Output 04/11/25 04/12/25 04/13/25 04/14/25 23:59 23:59 23:59 23:59 Intake Total 300 580 Balance 300 580 Meds/Results Medications: Active Medications Generic Name Dose Route Start Last Admin Trade Name Freq PRN Reason Stop Dose Admin Allopurinol 100 mg 04/14/25 21:00 Allopurinol 100 Mg Tablet PO HS SUZAN Aspirin 81 mg 04/14/25 09:00 04/14/25 09:01 Aspirin 81 Mg Enteric Tablet PO 81 mg QAM [facility] Administration Atorvastatin Calcium 10 mg 04/14/25 18:00 Atorvastatin 10 Mg Tablet PO QPM [facility] Cilostazol 100 mg 04/14/25 21:00 Cilostazol 100 Mg Tablet PO HS [facility] Escitalopram Oxalate 20 mg 04/14/25 21:00 Escitalopram Oxalate 10 Mg Tablet PO HS [facility] Ferrous Sulfate 325 mg 04/14/25 08:00 04/14/25 09:01 Ferrous Sulfate [address] BY MOUTH 325 mg DAILY@0800 [facility] Administration Cefepime HCl 1 gm/ Sodium 50 mls @ 100 mls/hr 04/14/25 18:00 Chloride IVPB Q12H [facility] Levetiracetam 750 mg 04/14/25 09:00 04/14/25 09:01 Levetiracetam 250 Mg Tablet PO 750 mg Q12HR SUZAN Administration Memantine 10 mg 04/14/25 09:00 04/14/25 09:01 Memantine 10 Mg Tablet PO 10 mg BID SUZAN Administration Metoprolol Succinate 25 mg/ 75 mg 04/14/25 21:00 Metoprolol Succinate 50 mg PO QHS [facility] Miconazole Nitrate 1 applic 04/13/25 21:00 04/14/25 09:03 Miconazole Nitrate 2% Cream 30 Gm Tube TOPICAL 1 applic Q12HR SUZAN Administration Triamcinolone Acetonide 1 applic 04/13/25 21:00 04/14/25 09:03 Triamcinolone Acet 0.1% Cream 15 Gm Tube TOPICAL 1 applic Q12HR SUZAN Administration Vancomycin HCl 1 each 04/13/25 18:06 Vancomycin For Acute Kidney Injury IVPB PRN PRN Vancomycin Protocol Radiology Results: ITS Impressions Venous Doppler Study 04/13/25 13:29 Impression: No evidence of deep venous thrombosis Foot X-Ray 04/13/25 13:34 Impression: 1: No acute abnormality of the left foot. No evidence for osteomyelitis. If there is clinical concern for osteomyelitis, correlation with MRI with contrast recommended. Labs Labs: Laboratory Results - last 24 hr 04/14/25 06:16 WBC 9.3 RBC 3.40 L Hgb 10.8 L Hct 32.4 L MCV 95.3 MCH 31.8 MCHC 33.3 RDW 15.1 H Plt Count 162 MPV 9.6 Sodium 137 Potassium 3.2 L Chloride 105 Carbon Dioxide 23 Anion Gap 9 BUN 37 H Creatinine 2.52 H Estim Creat Clear Calc 19 Estimated GFR 25 L Glucose 89 Calcium 8.9 Quality VTE Prophylaxis VTE prophylaxis: mechanical ordered (SCDs)
--- NOTE | 2025-04-14 15:53 | P.CONGS_ITS ---
Assessment and Plan Assessment and plan (1) Wound of left foot: Code(s): S91.302A - Unspecified open wound, left foot, initial encounter Status: Acute Assessment and Plan: Patient was instructed by his forestry and wildlife manager to present to the ED yesterday for IV antibiotics after a trial of doxycycline failed to reduce erythema and pain of left foot. Foot x-ray did not demonstrate any acute abnormalities or evidence of osteomyelitis. WBC count is normal. Physical exam reveals a foot with changes that are likely a consequence of peripheral vascular insufficiency. Distal pulses very difficult to palpate. Erythema with not much edema or warmth. No pain noted to dorsum of foot. Hyperkeratotic changes to toenails. At this time we recommend a vascular consult. No immediate surgical intervention planned, as there is a high risk for insufficient blood flow that would impair wound healing. Plan Discussed patient's case and plan of care with Dr. Matthews. History of Present Illness Consult details Consult date: 04/14/25 Reason for consult: other (Left foot wound) Requesting physician: Rajeev King MD Narrative: Patient is a 79-year-old male with history of dementia, peripheral vascular disease, CKD, and multiple other medical issues who we have been asked to see in surgical consultation for left foot wound. The patient 1st presented to the ED yesterday with complaints of a left foot infection after seeing his forestry and wildlife manager who advised him to come to the ER for IV antibiotics. Patient does not have a history of diabetes. Patient saw his forestry and wildlife manager, Dr. Paulina Gama on 03/30/2025 and had a removal of his left great toenail. Roughly 1 week later he began developing redness to the dorsum of the toe and the foot. He was started on doxycycline on 04/08, however his foot has remained unchanged. At this point, patient was advised by his forestry and wildlife manager to present to the ED. Upon admission to the ED, patient has had normal white blood cell counts. Vital signs have remained stable. X-ray of the left foot demonstrate no acute abnormality with no evidence for osteomyelitis. Of note, patient had amputation of the left 4th toe at the proximal phalanx several years ago. Venous Doppler study negative for DVT. [facility] Past Medical History Medical History (Updated 04/14/25 @ 16:10 by Aye Arriaga PA-C) 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 Intermittent self-catheterization of bladder Cardiomyopathy Recurrent incisional hernia Atrial fibrillation with RVR Heart failure Systolic heart failure with EF of 40-45%, severe biatrial enlargement, moderate mitral and tricuspid regurgitation, reduced right ventricular systolic function, indeterminate diastolic function Chronic anemia Vascular dementia Seizures B12 deficiency Depression Gout Osteoarthritis Iron deficiency anemia Benign prostatic hyperplasia Kidney stones Chronic kidney disease, stage 3 Crohn's disease Hyperlipidemia Hypertension Peripheral vascular disease Coronary artery disease Surgical History Surgical History (Updated 04/14/25 @ 10:21 by Sydni Orta DO) History of amputation of left fourth toe S/P CABG (coronary artery bypass graft) History of bilateral cataract extraction History of lithotripsy History of partial colectomy X2 for to bowel obstructions and fistula secondary to Crohn's disease. History of cholecystectomy History of vascular surgery Bilateral lower extremity stents. History of coronary artery bypass graft Family History Family History Father Myocardial infarct Cerebrovascular accident Mother Breast cancer Sibling Crohn's disease Social History Social History Social History: Surrogate decision maker: Sarah Denilson, spouse. Code status: Do not resuscitate. Smoking packs per day: 2 Smoking cigarettes per day: 40.0 Years smoked: 25 Smoking pack-years: 50.00 Smoking status: Former smoker Second hand tobacco smoke exposure: No Alcohol intake: former Substance use: never Substance use type: does not use Do You Feel Safe in your Home?: Yes Lack of Transportation: No Lack of Food: Never True Current Housing: I Have Housing Concerned About Future Housing: No Difficulty Paying Gas/Electric Bills: No Difficulty Paying for Meds: No Currently Unemployed: No Education: Trade/Vocational Certificate Difficulty w/ Childcare or Family Care: No Additional living arrangements comments: The patient lives with his in [place]. Additional occupation/education comments: Retired from [employer]. Spiritual care concerns: No Meds Home Medications and Allergies Home Medications ?Medication ?Instructions ?Recorded ?Confirmed ?Type allopurinol 100 mg tablet 100 mg PO HS 11/08/23 04/13/25 History aspirin 81 mg tablet 81 mg PO DAILY 11/08/23 04/13/25 History atorvastatin 10 mg tablet 10 mg PO QPM 11/08/23 04/13/25 History cilostazol 100 mg tablet 100 mg PO HS 11/08/23 04/13/25 History furosemide 40 mg tablet 40 mg PO DAILY 05/12/24 04/13/25 History ferrous sulfate 325 mg (65 mg 325 mg PO DAILY@0800 11/28/24 04/13/25 History iron) tablet (FeroSul) levetiracetam 750 mg tablet 750 mg PO Q12HR 30 days #180 tabs 12/21/24 04/13/25 Rx escitalopram oxalate 20 mg tablet 20 mg PO HS 01/04/25 04/13/25 History loperamide 2 mg capsule 2 mg PO Q1-3H PRN loose stool 01/05/25 04/13/25 History (Anti-Diarrheal (loperamide)) memantine 10 mg tablet 10 mg PO BID #180 tabs 03/07/25 04/13/25 Rx donepezil 10 mg tablet 5 mg PO DAILY 04/13/25 04/13/25 History metoprolol tartrate 25 mg tablet 75 mg PO HS 04/13/25 04/13/25 History cyanocobalamin (vitamin B-12) 1,000 mcg IM MONTHLY 04/14/25 04/14/25 History 1,000 mcg/mL injection solution Allergies Allergy/AdvReac Type Severity Reaction Status Date / Time No Known Allergies Allergy Verified 01/04/25 16:56 Vital Signs Vital Signs - 24 hr 04/13/25 18:33 04/13/25 22:00 04/13/25 22:38 Temperature 98.2 F Pulse Rate 80 78 Respiratory Rate 16 16 Blood Pressure 133/83 119/77 Pulse Oximetry 100 98 Oxygen Delivery Room Air 04/14/25 06:00 Temperature 98.4 F Pulse Rate 77 Respiratory Rate 18 Blood Pressure 123/74 Pulse Oximetry 99 Oxygen Delivery Exam 2 Const: General: comfortable and no acute distress Eyes: General: appearance normal, both eyes and all related structures Neck: Neck: supple Resp: Effort & Inspection: normal respiratory effort Cardio: Rate: regular rate Skin: General skin exam: normal color and no rashes or lesions noted Neuro: Other: Dementia Extrem: Other: Left dorsum of foot with erythematous changes. Hyperkeratotic changes to toenails with 1st toenail significantly more dystrophic and misshapen. Patient notes tenderness to tip of 1st toe. Distal pulses difficult to palpate. Using Doppler, posterior tibialis biphasic pulse able to be identified. Unable to identify dorsalis pedis pulse. Popliteal pulse 2+. Femoral pulse is 3 +. There is no increased warmth or significant edema to the dorsum of the left foot. Right PT and DP pulses palpable. Results Labs 04/14/25 06:16 04/14/25 06:16 Labs: Abnormal lab results 04/14/25 Range/Units 06:16 RBC 3.40 L (4.6-6.20) M/mm3 Hgb 10.8 L (14.0-18.0) g/dL Hct 32.4 L (42.0-52.0) % RDW 15.1 H (11.5-14.5) % Potassium 3.2 L (3.4-5.0) mmol/L BUN 37 H (9-20) mg/dL Creatinine 2.52 H (0.7-1.3) mg/dL Estimated GFR 25 L (59 - ) Diabetes panel 04/14/25 Range/Units 06:16 Sodium 137 (137-145) mmol/L Potassium 3.2 L (3.4-5.0) mmol/L Chloride 105 (98-107) mmol/L Carbon Dioxide 23 (22-30) mmol/L BUN 37 H (9-20) mg/dL Creatinine 2.52 H (0.7-1.3) mg/dL Glucose 89 (65-110) mg/dL Calcium 8.9 (8.4-10.2) mg/dL Calcium panel 04/14/25 Range/Units 06:16 Calcium 8.9 (8.4-10.2) mg/dL Pituitary panel 04/14/25 Range/Units 06:16 Sodium 137 (137-145) mmol/L Potassium 3.2 L (3.4-5.0) mmol/L Chloride 105 (98-107) mmol/L Carbon Dioxide 23 (22-30) mmol/L BUN 37 H (9-20) mg/dL Creatinine 2.52 H (0.7-1.3) mg/dL Glucose 89 (65-110) mg/dL Calcium 8.9 (8.4-10.2) mg/dL Adrenal panel 04/14/25 Range/Units 06:16 Sodium 137 (137-145) mmol/L Potassium 3.2 L (3.4-5.0) mmol/L Chloride 105 (98-107) mmol/L Carbon Dioxide 23 (22-30) mmol/L BUN 37 H (9-20) mg/dL Creatinine 2.52 H (0.7-1.3) mg/dL Glucose 89 (65-110) mg/dL Calcium 8.9 (8.4-10.2) mg/dL All other labs normal.
[2025-04-14] MEDS: ATORVASTATIN 10 MG TABLET PO (17:48)
[2025-04-14] MEDS: CEFEPIME 1 GM in SODIUM CHLORIDE 0.9% IV 50 ML 100 ML IVPB (17:48)
[2025-04-14] MEDS: VANCOMYCIN HCL 1,000 MG in SODIUM CHLORIDE 0.9% IV 250 ML 250 MG IVPB (20:27)
[2025-04-14] MEDS: ESCITALOPRAM OXALATE 10 MG TABLET 20 MG PO (20:34)
[2025-04-14 20:35] VITALS: PULSE 82
[2025-04-14] MEDS: METOPROLOL SUCCINATE EXT REL 25 MG, METOPROLOL SUCCINATE EXT REL 50 MG 75 MG PO (20:35)
[2025-04-14 22:00] VITALS: BP 123/81; PULSE 98; RESP 18; TEMP 36.4; O2SAT 100
[2025-04-15 06:00] VITALS: BP 119/76; PULSE 99; RESP 16; TEMP 36.4; O2SAT 98
[2025-04-15 06:20] LABS: Hematocrit 31.4 % (42.0-52.0); Hemoglobin 10.1 g/dL (14.0-18.0); Mean Corpuscular HGB Conc 32.2 g/dl (32-36); Mean Corpuscular Hemoglobin 30.8 pg (26-34); Mean Corpuscular Volume 95.7 fl (80-100); Platelet Count Result 156 k/mm3 (150-375); Red Blood Count 3.28 M/mm3 (4.6-6.20); White Blood Count 7.6 K/mm3 (4.5-10.0)
[2025-04-15] MEDS: CEFEPIME 1 GM in SODIUM CHLORIDE 0.9% IV 50 ML 100 ML IVPB (06:32)
[2025-04-15 06:45] LABS: Anion Gap 7 mmol/L (4-12); Blood Urea Nitrogen 35 mg/dL (9-20); Calcium 8.8 mg/dL (8.4-10.2); Carbon Dioxide 22 mmol/L (22-30); Chloride 110 mmol/L (98-107); Estimated CRCL calculation 21 ml/min; Estimated Glomerular Filt Rate 28; Glucose 84 mg/dL (65-110); Magnesium 1.7 mg/dL (1.6-2.3); Potassium 3.1 mmol/L (3.4-5.0); Sodium 139 mmol/L (137-145)
--- NOTE | 2025-04-15 06:56 | PC.NURSE ---
Was not able to palpate pedal pulse on left foot. Pulse heard using Doppler, 1-faint and irregular beats. Spot pulses found, black marker on location. Verified with charge nurse.
--- NOTE | 2025-04-15 08:00 | P.CONS_ITS ---
Assessment and Plan Assessment and plan (1) Cellulitis of foot: Code(s): L03.119 - Cellulitis of unspecified part of limb Status: Acute Plan - Patient seen and evaluated bedside - Continue with IV antibiotics - Agree with plan for vascular consult for evaluation of lower extremity PVD - No dressing needed to left hallux nail bed - No podiatric surgical intervention indicated at this time - May be full weight bearing to both lower extremities - Patient to follow up with me in office in 2 weeks HPI Data of Consult Date/Time: 04/15/25 08:00 Requesting Physician: Umm Lovett MD Primary Care Provider: Preethi Godoy, HAND CIGAR MAKING SUPERVISOR Consult Narrative Narrative: Vitaly Oreilly is a 79 year old male who was seen for left foot pain & erythema. Patient is well known to me as I see him outpatient in my office. He had an infected toenail bed about 2 weeks ago that was removed, he has since had increased redness and pain to the foot. He has been on Doxycycline orally, but the redness & pain has not improved. Xrays were taken in office which showed no fracture or signs of soft tissue infection or bone infection. He was sent to the ER to receive IV antibiotics. He does not have the best blood flow to the lower extremities, so he has improved with IV antibiotics while being in-house. Denies any foot pain today. Los any nausea/vomiting/fever/chills/shortness of breath. Review of Systems 2 Cardiovascular: Comments: Pedal pulses are weaker than expected, about 1/4 for both dorsalis pedis & posterior tibial pulse, bilateral. Capillary refill time is immediate to digits, bilateral Musculoskeletal: Comments: No pain on palpation to left foot. Improving erythema to left foot. No open lesions, healing total nail avulsion site, left hallux. No drainage, no malodor, no clinical signs of infection PMFSH Past Medical History Medical History (Updated 04/14/25 @ 16:10 by Aye Arriaga PA-C) 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 Intermittent self-catheterization of bladder Cardiomyopathy Recurrent incisional hernia Atrial fibrillation with RVR Heart failure Systolic heart failure with EF of 40-45%, severe biatrial enlargement, moderate mitral and tricuspid regurgitation, reduced right ventricular systolic function, indeterminate diastolic function Chronic anemia Vascular dementia Seizures B12 deficiency Depression Gout Osteoarthritis Iron deficiency anemia Benign prostatic hyperplasia Kidney stones Chronic kidney disease, stage 3 Crohn's disease Hyperlipidemia Hypertension Peripheral vascular disease Coronary artery disease Surgical History Surgical History (Updated 04/14/25 @ 10:21 by Sydni Orta DO) History of amputation of left fourth toe S/P CABG (coronary artery bypass graft) History of bilateral cataract extraction History of lithotripsy History of partial colectomy X2 for to bowel obstructions and fistula secondary to Crohn's disease. History of cholecystectomy History of vascular surgery Bilateral lower extremity stents. History of coronary artery bypass graft Family History Family History Father Myocardial infarct Cerebrovascular accident Mother Breast cancer Sibling Crohn's disease Social History Social History Social History: Surrogate decision maker: Sarah Oreilly, spouse. Code status: Do not resuscitate. Smoking packs per day: 2 Smoking cigarettes per day: 40.0 Years smoked: 25 Smoking pack-years: 50.00 Smoking status: Former smoker Second hand tobacco smoke exposure: No Alcohol intake: former Substance use: never Substance use type: does not use Do You Feel Safe in your Home?: Yes Lack of Transportation: No Lack of Food: Never True Current Housing: I Have Housing Concerned About Future Housing: No Difficulty Paying Gas/Electric Bills: No Difficulty Paying for Meds: No Currently Unemployed: No Education: Trade/Vocational Certificate Difficulty w/ Childcare or Family Care: No Additional living arrangements comments: The patient lives with his in [place]. Additional occupation/education comments: Retired from [employer]. Spiritual care concerns: No Meds Home Medications and Allergies Home Medications ?Medication ?Instructions ?Recorded ?Confirmed ?Type allopurinol 100 mg tablet 100 mg PO HS 11/08/23 04/13/25 History aspirin 81 mg tablet 81 mg PO DAILY 11/08/23 04/13/25 History atorvastatin 10 mg tablet 10 mg PO QPM 11/08/23 04/13/25 History cilostazol 100 mg tablet 100 mg PO HS 11/08/23 04/13/25 History furosemide 40 mg tablet 40 mg PO DAILY 05/12/24 04/13/25 History ferrous sulfate 325 mg (65 mg 325 mg PO DAILY@0800 11/28/24 04/13/25 History iron) tablet (FeroSul) levetiracetam 750 mg tablet 750 mg PO Q12HR 30 days #180 tabs 12/21/24 04/13/25 Rx escitalopram oxalate 20 mg tablet 20 mg PO HS 01/04/25 04/13/25 History loperamide 2 mg capsule 2 mg PO Q1-3H PRN loose stool 01/05/25 04/13/25 History (Anti-Diarrheal (loperamide)) memantine 10 mg tablet 10 mg PO BID #180 tabs 03/07/25 04/13/25 Rx donepezil 10 mg tablet 5 mg PO DAILY 04/13/25 04/13/25 History metoprolol tartrate 25 mg tablet 75 mg PO HS 04/13/25 04/13/25 History cyanocobalamin (vitamin B-12) 1,000 mcg IM MONTHLY 04/14/25 04/14/25 History 1,000 mcg/mL injection solution Allergies Allergy/AdvReac Type Severity Reaction Status Date / Time No Known Allergies Allergy Verified 01/04/25 16:56 Vital Signs Vital Signs - 24 hr 04/14/25 14:00 04/14/25 20:27 04/14/25 20:35 Temperature 36.6 C Pulse Rate 94 82 Respiratory Rate 16 Blood Pressure 125/72 Pulse Oximetry 100 Oxygen Delivery Room Air 04/14/25 22:00 04/15/25 06:00 Temperature 36.4 C 36.4 C Pulse Rate 98 99 Respiratory Rate 18 16 Blood Pressure 123/81 119/76 Pulse Oximetry 100 98 Oxygen Delivery Exam 2 Skin: Other: Healing total nail avulsion site, left hallux Erythema noted to left foot from digits to midfoot, no fluctuance, no open lesions, no clinical signs of infection note Extrem: Other: Weak pedal pulses, 1/4 to dorsalis pedis and posterior tibial pulse, bilateral. Capillary refill time immediate to digits, bilateral Results Labs 04/15/25 05:54 04/15/25 05:54 Labs: Short CBC 04/15/25 Range/Units 05:54 WBC 7.6 (4.5-10.0) K/mm3 Hgb 10.1 L (14.0-18.0) g/dL Hct 31.4 L (42.0-52.0) % Plt Count 156 (150-375) k/mm3 [facility] 04/15/25 05:54 Sodium 139 Potassium 3.1 L Chloride 110 H Carbon Dioxide 22 BUN 35 H Creatinine 2.28 H Glucose 84 Calcium 8.8
[2025-04-15] MEDS: FERROUS SULFATE 325 MG TABLET DR BY MOUTH (08:34)
[2025-04-15] MEDS: MEMANTINE 10 MG TABLET PO (08:34)
[2025-04-15] MEDS: ASPIRIN 81 MG ENTERIC TABLET PO (08:34)
[2025-04-15] MEDS: MICONAZOLE NITRATE 2% CREAM 30 GM TUBE 1 APPLIC TOPICAL (08:34)
[2025-04-15] MEDS: TRIAMCINOLONE ACET 0.1% CREAM 15 GM TUBE 1 APPLIC TOPICAL (08:34)
--- NOTE | 2025-04-15 15:39 | PM.TDS ---
Transfer Discharge Sum: Prov Provider Date of admission: 04/14/25 09:11 Primary care physician: Preethi Godoy, [employer] [facility] Admitting clinician: Umm Lovett MD Consults: 04/14/25 Care Coordination Consult Routine Reason for Consult:: Advanced Directives Consult to Physician Routine Comment: Consulting Provider: Cornell Matthews Reason for consultation: left foot wound Has provider been notified: No 04/15/25 Consult to Physician Routine Comment: Consulting Provider: Paulina Gama Reason for consultation: foot wound Has provider been notified: Yes DS: Admitting Diagnosis Discharge Date 04/15/25 Admitting Diagnosis Left toe infection DS: Discharge Diagnosis Discharge Diagnosis (1) Cellulitis of foot: Code(s): L03.119 - Cellulitis of unspecified part of limb Status: Acute Assessment and Plan: Continue antibiotic therapy with cefepime and vancomycin. Will monitor for erythema and repeat CBC in a.m.. (2) Acute kidney injury superimposed on chronic kidney disease: Code(s): N17.9 - Acute kidney failure, unspecified; N18.9 - Chronic kidney disease, unspecified Status: Acute Assessment and Plan: Likely due to a combination of the patient's chronic obstructive uropathy and acute kidney injury the patient appears intervascular volume depleted. However he does have significant history of biventricular heart failure with cardiomyopathy and AFib. I would like to hold off on giving the patient additional IV fluids at this time and instead will hold the patient's home diuretics. Will schedule straight caths q.i.d. and repeat electrolyte panel in a.m.. Avoid nephrotoxic medications. (3) Abnormal urinalysis: Code(s): R82.90 - Unspecified abnormal findings in urine Status: Acute Assessment and Plan: Patient does have nitrates and esterase and is a urinalysis but continue may need with moderate squamous cells. Patient is not a reliable historian to provide information regarding urinary symptomatology. However patient is afebrile and does not acutely appear to be acutely ill. He is are receiving antibiotics for cellulitis of the lower extremity. Will order urine culture as the culture did not reflex due to squamous cells. Will await results. (4) Dermatitis: Code(s): L30.9 - Dermatitis, unspecified Status: Acute Assessment and Plan: Dermatitis due to peripheral artery disease (5) Tinea cruris: Code(s): B35.6 - Tinea cruris Status: Acute Assessment and Plan: Status post toenail removal Plan 79 y/o male with history of dementia s/p removal ingrown toe nail on the March 30 by his ingot caster, he presented to ER with redness and swelling of the toe, suspect it infected and started the patient on Cefepime and vancomycin, will follow up with on blood culture, will consult ortho for further recommendations. patient has rash along his arm, back, buttock and growing, applying nystatin will monitor Transfer Discharge Sum: Med Medications Active and Home Medications: Home Medications allopurinol 100 mg tablet 100 mg PO HS 11/08/23 [History Confirmed 04/13/25] aspirin 81 mg tablet 81 mg PO DAILY 11/08/23 [History Confirmed 04/13/25] atorvastatin 10 mg tablet 10 mg PO QPM 11/08/23 [History Confirmed 04/13/25] cilostazol 100 mg tablet 100 mg PO HS 11/08/23 [History Confirmed 04/13/25] furosemide 40 mg tablet 40 mg PO DAILY 05/12/24 [History Confirmed 04/13/25] ferrous sulfate 325 mg (65 mg iron) tablet (FeroSul) 325 mg PO DAILY@0800 11/28/24 [History Confirmed 04/13/25] levetiracetam 750 mg tablet 750 mg PO Q12HR 30 days #180 tabs 12/21/24 [Rx Confirmed 04/13/25] escitalopram oxalate 20 mg tablet 20 mg PO HS 01/04/25 [History Confirmed 04/13/25] loperamide 2 mg capsule (Anti-Diarrheal (loperamide)) 2 mg PO Q1-3H PRN loose stool 01/05/25 [History Confirmed 04/13/25] memantine 10 mg tablet 10 mg PO BID #180 tabs 03/07/25 [Rx Confirmed 04/13/25] donepezil 10 mg tablet 5 mg PO DAILY 04/13/25 [History Confirmed 04/13/25] metoprolol tartrate 25 mg tablet 75 mg PO HS 04/13/25 [History Confirmed 04/13/25] cyanocobalamin (vitamin B-12) 1,000 mcg/mL injection solution 1,000 mcg IM MONTHLY 04/14/25 [History Confirmed 04/14/25] Transfer Discharge Sum: Hosp Hospital Course Hospital course: Vitaly Oreilly is a 79 year old male Discuss case with Dr. Abbott, hospitalist, for Dr. Hernandez vascular surgeon, 79 y/o male with history of dementia s/p removal ingrown toe nail on the March 30 by his ingot caster, he presented to ER with redness and swelling of the toe, suspect it infected and started the patient on Cefepime and vancomycin, will follow up with on blood culture, will consult ortho for further recommendations. patient has rash along his arm, back, buttock and growing, applying nystatin will monitor. patient was seen by general surgery and recommended to consult vascular surgeon, will transfer patient to [facility]. Patient Condition: Stable Time Spent with Patient Time attestation: Total time spent providing and/or coordinating transfer services: Exam Narrative: Patient is comfortable, NAD HEENT: eyes are clear and none icteric LUNGS:CTA HEART: RR S1S2 ABD: BS+, Soft and nontender Lower extremities: no edema SKIN: nonjaundiced Neuro: grossly intact. DS: Data Data Completed and Pending Labs on day of discharge: Labs from last 24 hours 04/15/25 04/14/25 05:54 17:05 WBC 7.6 RBC 3.28 L Hgb 10.1 L Hct 31.4 L MCV 95.7 MCH 30.8 MCHC 32.2 RDW 14.8 H Plt Count 156 MPV 9.9 Sodium 139 Potassium 3.1 L Chloride 110 H Carbon Dioxide 22 Anion Gap 7 BUN 35 H Creatinine 2.28 H Estim Creat Clear Calc 21 Estimated GFR 28 L Glucose 84 Calcium 8.8 Magnesium 1.7 Random Vancomycin 7.6 L
== END 2025-04-15 15:00 | disposition short-term general hospital (02) | DRG 603 ==
LOC: ANHED 18:03 → ANH3MEDSUR 19:37
PROVIDERS: Internal Medicine; Registered Nurse; Admitting Provider Internal Medicine; Emergency Provider Physician Assistant; PCP Nurse Practitioner Family; Visit Provider Family Medicine
DX: L03.032 Cellulitis of left toe (principal); I13.0 Hypertensive heart and chronic kidney disease with heart failure and stage 1 through stage 4 chronic kidney disease, or unspecified chronic kidney disease; I43 Cardiomyopathy in diseases classified elsewhere; I50.22 Chronic systolic (congestive) heart failure; N17.9 Acute kidney failure, unspecified; G30.9 Alzheimer's disease, unspecified; F02.80 Dementia in other diseases classified elsewhere, unspecified severity, without behavioral disturbance, psychotic disturbance, mood disturbance, and anxiety; B35.6 Tinea cruris; D63.1 Anemia in chronic kidney disease; E78.5 Hyperlipidemia, unspecified; E11.51 Type 2 diabetes mellitus with diabetic peripheral angiopathy without gangrene; F32.A Depression, unspecified; G40.909 Epilepsy, unspecified, not intractable, without status epilepticus; I48.91 Unspecified atrial fibrillation; I25.10 Atherosclerotic heart disease of native coronary artery without angina pectoris; L30.9 Dermatitis, unspecified; M10.9 Gout, unspecified; M19.90 Unspecified osteoarthritis, unspecified site; N40.1 Benign prostatic hyperplasia with lower urinary tract symptoms; R33.8 Other retention of urine; R82.90 Unspecified abnormal findings in urine; N18.30 Chronic kidney disease, stage 3 unspecified; Z66 Do not resuscitate; Z86.73 Personal history of transient ischemic attack (TIA), and cerebral infarction without residual deficits; Z95.1 Presence of aortocoronary bypass graft; Z98.41 Cataract extraction status, right eye; Z98.42 Cataract extraction status, left eye; Z90.49 Acquired absence of other specified parts of digestive tract; Z79.82 Long term (current) use of aspirin
CPT/HCPCS: 36415; 73630; 80048; 80053; 80202; 81001; 83605; 83735; 85025; 85027; 85610; 85730; 86140; 87040; 93005; 93971; 96365; 96366; 96367; 99285; A9270; G0378; J0692; J3373; J7050

== ENCOUNTER 2025-07-26 04:38 | Inpatient (IN) | payer MEDICARE, SELFPAY ==
[2025-07-26] VITALS (29 sets, daily range): BP systolic 109–147; BP diastolic 63–92; PULSE 64–114; RESP 10–22; TEMP 36.2–37; O2SAT 93–98; BMI 19.3
--- NOTE | 2025-07-26 05:34 | ECG_ITS ---
Test Date: 2025-07-26 06:30:42 Measurements Intervals [place] Rate: 102 P: 0 VT: 0 QRS: 61 QRSD: 95 T: 43 QT: 383 QTc: 501 Interpretive Statements ATRIAL FIBRILLATION WITH RAPID VENTRICULAR RESPONSE WITH ABERRANT CONDUCTION OR VENTRICULAR PREMATURE COMPLEXES NONSPECIFIC T-WAVE ABNORMALITY ABNORMAL RHYTHM ECG Compared to ECG 04/13/2025 14:10:05 No significant changes Electronically Signed On 07-26-2025 06:40:48 CHECKERER HAND by Uday Alston M.D.
[2025-07-26 06:01] LABS: Hematocrit 30.2 % (42.0-52.0); Hemoglobin 9.5 g/dL (14.0-18.0); Immature Granulocyte Percent A 0.5 % (0-0.5); Lymphocytes Absolute Auto 0.58 K/mm3 (0.9-3.2); Mean Corpuscular HGB Conc 31.5 g/dl (32-36); Mean Corpuscular Hemoglobin 31.6 pg (26-34); Mean Corpuscular Volume 100.3 fl (80-100); Nucleated Red Blood Cells Absolute Auto 0.000 K/mm3 (0.0-0.012); Nucleated Red Blood Cells Perc 0.0 % (0.0-0.2); Platelet Count Result 171 k/mm3 (150-375); Red Blood Count 3.01 M/mm3 (4.6-6.20); White Blood Count 7.5 K/mm3 (4.5-10.0)
[2025-07-26 06:13] LABS: INR 1.2; Prothrombin Time 15.5 Seconds (11.1-14.7)
[2025-07-26 06:14] LABS: Partial Thromboplastin Time 34.2 Seconds (22.3-36.8)
[2025-07-26 06:15] LABS: Alanine Aminotransferase 25 U/L (6-50); Albumin Level 3.8 g/dL (3.5-5.1); Alkaline Phosphatase 92 U/L (38-126); Anion Gap 9 mmol/L (4-12); Aspartate Amino Transferase 30 U/L (17-59); Bilirubin,Total 0.5 mg/dL (0.2-1.3); Blood Urea Nitrogen 30 mg/dL (9-20); Calcium 8.6 mg/dL (8.4-10.2); Carbon Dioxide 25 mmol/L (22-30); Chloride 106 mmol/L (98-107); Estimated Glomerular Filt Rate 31; Glucose 124 mg/dL (65-110); Potassium 3.6 mmol/L (3.4-5.0); Sodium 140 mmol/L (137-145); Total Protein 6.7 g/dL (6.3-8.2)
[2025-07-26 06:16] LABS: Add Urine Microscopic? YES; Appearance Urine Cloudy (Clear); Glucose Urine UA Negative (Negative); Leukocyte Esterase Ur 2+ LEU/UL (Negative); Need Manual Microscopic Reviewed; Nitrate Urine Positive (Negative); Non Pathogenic Casts 0-2; Specific Grav Ur 1.018 (1.001-1.035)
--- NOTE | 2025-07-26 07:16 | PC.NURSE ---
assumed care of pt from Delfina. pt states he still has itching
--- OUTSIDE RECORDS SUMMARY | 2025-07-26 07:17 | XMS_ITS | Clinical Summary ---
Author Organization [facility] Address [facility] [place] [address] Care Team Providers Care Automatic Teller Machine Servicer Name Role Phone Unavailable Primary Care Provider [...] 75+ series) 2021 COVID-19 Vaccine ( - 2024-2 6 season) 2025 Influenza Adult (#1) 2025 Hepatitis A Vaccines Aged Out No long er eligible based on patient's age to complete this topic Meningococcal B Vaccine Aged Out No l onger eligible based on patient's age to complete this topic Meningococcal Vaccine Aged Out No lorena cher eligible based on patient's age to complete this topic RSV Immunizations Under 20 Months Aged Out No longer eligible based on patient's age to complete this topic
--- NOTE | 2025-07-26 07:35 | PM.IMHP ---
H&P: HPI History of Present Illness Date/Time: 07/26/25 07:35 Chief Complaint: Altered mental status Narrative: Patient is a 80-year-old male with past medical history of vascular dementia, CHF, anxiety depression, CKD stage III and hyperlipidemia who presents with altered mental status for 1 day. At baseline he is oriented x2. He denies any urinary symptoms but urinalysis shows abnormal UA. Patient is admitted for IV antibiotics. In the ED by the 7 was unremarkable. 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 Intermittent self-catheterization of bladder Cardiomyopathy Recurrent incisional hernia Atrial fibrillation with RVR Heart failure Systolic heart failure with EF of 40-45%, severe biatrial enlargement, moderate mitral and tricuspid regurgitation, reduced right ventricular systolic function, indeterminate diastolic function Chronic anemia Vascular dementia Seizures B12 deficiency Depression Gout Osteoarthritis Iron deficiency anemia Benign prostatic hyperplasia Kidney stones Chronic kidney disease, stage 3 Crohn's disease Hyperlipidemia Hypertension Peripheral vascular disease Coronary artery disease Surgical History Surgical History (Updated 04/14/25 @ 10:21 by Sydni Orta DO) History of amputation of left fourth toe S/P CABG (coronary artery bypass graft) History of bilateral cataract extraction History of lithotripsy History of partial colectomy X2 for to bowel obstructions and fistula secondary to Crohn's disease. History of cholecystectomy History of vascular surgery Bilateral lower extremity stents. History of coronary artery bypass graft Family History Family History Father Myocardial infarct Cerebrovascular accident Mother Breast cancer Sibling Crohn's disease Social History Social History Social History: Surrogate decision maker: Sarah Hongcharlotte, spouse. Code status: Do not resuscitate. Smoking packs per day: 2 Smoking cigarettes per day: 40.0 Years smoked: 25 Smoking pack-years: 50.00 Smoking status: Former smoker Second hand tobacco smoke exposure: No Alcohol intake: former Substance use: never Substance use type: does not use Do You Feel Safe in your Home?: Yes Lack of Transportation: No Lack of Food: Never True Current Housing: I Have Housing Concerned About Future Housing: No Difficulty Paying Gas/Electric Bills: No Difficulty Paying for Meds: No Currently Unemployed: No Education: High School Diploma/GED Difficulty w/ Childcare or Family Care: No Additional living arrangements comments: The patient lives with his in [place]. Additional occupation/education comments: Retired from [employer]. Spiritual care concerns: No Meds Home Medications and Allergies Home Medications ?Medication ?Instructions ?Recorded ?Confirmed ?Type allopurinol 100 mg tablet 100 mg PO HS 11/08/23 07/26/25 History aspirin 81 mg tablet 81 mg PO DAILY 11/08/23 07/26/25 History atorvastatin 10 mg tablet 10 mg PO QPM 11/08/23 07/26/25 History cilostazol 100 mg tablet 100 mg PO HS 11/08/23 07/26/25 History furosemide 40 mg tablet 40 mg PO DAILY 05/12/24 07/26/25 History ferrous sulfate 325 mg (65 mg 325 mg PO DAILY@0800 11/28/24 07/26/25 History iron) tablet (FeroSul) escitalopram oxalate 20 mg tablet 20 mg PO HS 01/04/25 07/26/25 History loperamide 2 mg capsule 2 mg PO Q1-3H PRN loose stool 01/05/25 07/26/25 History (Anti-Diarrheal (loperamide)) memantine 10 mg tablet 10 mg PO BID #180 tabs 03/07/25 07/26/25 Rx donepezil 10 mg tablet 5 mg PO DAILY 04/13/25 07/26/25 History metoprolol tartrate 25 mg tablet 75 mg PO HS 04/13/25 07/26/25 History cyanocobalamin (vitamin B-12) 1,000 mcg IM MONTHLY 04/14/25 07/26/25 History 1,000 mcg/mL injection solution levetiracetam 750 mg tablet 750 mg PO Q12HR 30 days #180 tabs 06/01/25 07/26/25 Rx cephalexin 250 mg capsule 250 mg PO Q8H 07/26/25 07/26/25 History prednisone 10 mg tablet mg 07/26/25 History Allergies Allergy/AdvReac Type Severity Reaction Status Date / Time No Known Allergies Allergy Verified 07/26/25 08:48 Vital Signs Vital Signs - 24 hr 07/26/25 04:50 07/26/25 04:53 07/26/25 05:05 Temperature 37.0 C Pulse Rate 97 102 H 103 H Respiratory Rate 16 18 17 Blood Pressure 136/86 Pulse Oximetry 97 Oxygen Delivery Room Air 07/26/25 05:29 07/26/25 05:30 07/26/25 05:31 Temperature Pulse Rate 108 H 114 H 102 H Respiratory Rate 17 16 14 Blood Pressure 124/92 H Pulse Oximetry Oxygen Delivery 07/26/25 05:45 07/26/25 05:46 07/26/25 06:00 Temperature Pulse Rate 102 H 103 H 100 Respiratory Rate 16 15 16 Blood Pressure 133/80 129/87 Pulse Oximetry Oxygen Delivery 07/26/25 06:01 07/26/25 06:15 07/26/25 06:16 Temperature Pulse Rate 101 H 102 H 98 Respiratory Rate 17 17 12 Blood Pressure 147/79 H Pulse Oximetry Oxygen Delivery 07/26/25 06:30 07/26/25 06:31 07/26/25 06:35 Temperature Pulse Rate 101 H 100 Respiratory Rate 15 17 Blood Pressure 123/83 Pulse Oximetry Oxygen Delivery Room Air 07/26/25 06:45 07/26/25 06:46 07/26/25 07:00 Temperature 36.6 C Pulse Rate 100 96 99 Respiratory Rate 15 22 H 15 Blood Pressure 121/81 126/83 Pulse Oximetry Oxygen Delivery 07/26/25 07:01 07/26/25 07:15 Temperature Pulse Rate 97 101 H Respiratory Rate 18 16 Blood Pressure 125/63 Pulse Oximetry Oxygen Delivery Exam Narrative: APPEARANCE: Pleasantly confused. Oriented to person. EYES: EOMI HEENT: Normocephalic, atraumatic, OMM RESPIRATORY: No respiratory distress Clear to auscultation bilaterally with no rhonchi wheezing or rales. CARDIOVASCULAR: RRR, S1 and S2 without murmurs rubs or gallops. ABDOMINAL: Soft, nontender, nondistended, no rebound or guarding MSK: Follow commands and moves his extremities spontaneously NEURO: Awake and alert. Following commands, speech normal, no focal deficits SKIN:: Warm, dry. No rashes lesions or abrasions PSYCHIATRIC: Normal affect/mood H&P: Results Labs Labs: Short CBC 07/26/25 Range/Units 05:52 WBC 7.5 (4.5-10.0) K/mm3 Hgb 9.5 L (14.0-18.0) g/dL Hct 30.2 L (42.0-52.0) % Plt Count 171 (150-375) k/mm3 BMP 07/26/25 05:52 Sodium 140 Potassium 3.6 Chloride 106 Carbon Dioxide 25 BUN 30 H Creatinine 2.08 H Glucose 124 H Calcium 8.6 Liver Function 07/26/25 Range/Units 05:52 Total Bilirubin 0.5 (0.2-1.3) mg/dL AST 30 (17-59) U/L ALT 25 (6-50) U/L Alkaline Phosphatase 92 (38-126) U/L Albumin 3.8 (3.5-5.1) g/dL Urine 07/26/25 Range/Units 05:52 Urine Color Yellow (Yellow) Urine Appearance Cloudy H (Clear) Urine pH 5.5 (5.0-9.0) Ur Specific [place] 1.018 (1.001-1.035) Urine Protein 1+ H (Negative) mg/dL Urine Glucose (UA) Negative (Negative) mg/dL Assessment and Plan Assessment and plan (1) UTI (urinary tract infection): Code(s): N39.0 - Urinary tract infection, site not specified Status: Acute (2) Atrial fibrillation: Code(s): I48.91 - Unspecified atrial fibrillation Status: Acute (3) Dementia of the Alzheimer's type: Code(s): G30.9 - Alzheimer's disease, unspecified; F02.80 - Dementia in other diseases classified elsewhere, unspecified severity, without behavioral disturbance, psychotic disturbance, mood disturbance, and anxiety Status: Acute (4) Hypertension: Qualifiers: Hypertension type: primary hypertension Qualified Code(s): I10 - Essential (primary) hypertension Code(s): I10 - Essential (primary) hypertension Status: Chronic (5) Hyperlipidemia: Qualifiers: Hyperlipidemia type: mixed hyperlipidemia Qualified Code(s): E78.2 - Mixed hyperlipidemia Code(s): E78.5 - Hyperlipidemia, unspecified Status: Chronic (6) Chronic kidney disease, stage 3: Qualifiers: Chronic kidney disease stage 3 subtype: stage 3b (GFR 30-44) Qualified Code(s): N18.32 - Chronic kidney disease, stage 3b Code(s): N18.30 - Chronic kidney disease, stage 3 unspecified Status: Chronic (7) Seizure disorder: Code(s): G40.909 - Epilepsy, unspecified, not intractable, without status epilepticus Status: Acute (8) Acute metabolic encephalopathy: Code(s): G93.41 - Metabolic encephalopathy Status: Acute Plan Vitaly gregory is a 80 year old male with pmhx of vascular dementia, atrial fibrillation, seizure disorder, chronic kidney disease stage IIIB, peripheral artery disease, gout and BPH with incomplete bladder emptying who presents today ER on 07/26/2025 for altered mental status from home. 1. Acute metabolic encephalopathy etiology likely secondary to urinary tract infection versus delirium in the setting of vascular dementia urinalysis shows nitrite positive, 2+ leukocytes trace and WBC 21-50 ED started ceftriaxone continue ceftriaxone follow urine culture 2. atrial fibrillation continue metoprolol She is not on anticoagulation due to anemia, however his anemia is stable 3. Anemia of chronic disease Anemia stable. Iron study shows % transparent saturation 25% today Avoid dehydration not worsening the a kidney function 4. CKD stage 3 a Stable Avoid dehydration, and said and contrast 5. Hyperlipidemia-continue statin 6. DVT prophylaxis heparin 7. Disposition lives at home. with once clinically stable he can go. Quality VTE Prophylaxis VTE prophylaxis: pharmacologic ordered
[2025-07-26] MEDS: LORATADINE 10 MG TABLET PO (08:02)
[2025-07-26] MEDS: cefTRIAXone 1 GM in SODIUM CHLORIDE 0.9% IV 50 ML 100 ML IVPB (08:05)
--- NOTE | 2025-07-26 08:37 | ED.AMS ---
HPI - Altered Mental Status General Chief Complaint: Altered Mental Status Stated Complaint: hallucinations; recent dx uti Time Seen by Provider: 07/26/25 07:02 History of Present Illness HPI narrative: Patient with history of vascular dementia who was recently diagnosis urinary tract infection presents here after he started developing hallucinations, with less easily directable for his who is his primary bariatric nurse, and she is concerned about pain with care for him at home while he is in this state. He did also recently get his flu shot, is having was believed to be allergic reaction, with an itchy rash that has not improved much after recently starting steroids and Claritin Related Data Home Medications ?Medication ?Instructions ?Recorded ?Confirmed ?Last Taken ?Type allopurinol 100 mg tablet 100 mg PO HS 11/08/23 04/13/25 04/12/25 History aspirin 81 mg tablet 81 mg PO DAILY 11/08/23 04/13/25 04/13/25 History atorvastatin 10 mg tablet 10 mg PO QPM 11/08/23 04/13/25 04/12/25 History cilostazol 100 mg tablet 100 mg PO HS 11/08/23 04/13/25 04/12/25 History furosemide 40 mg tablet 40 mg PO DAILY 05/12/24 04/13/25 04/13/25 History ferrous sulfate 325 mg (65 mg 325 mg PO DAILY@0800 11/28/24 04/13/25 04/13/25 History iron) tablet (FeroSul) escitalopram oxalate 20 mg tablet 20 mg PO HS 01/04/25 04/13/25 04/12/25 History loperamide 2 mg capsule 2 mg PO Q1-3H PRN loose stool 01/05/25 04/13/25 04/12/25 History (Anti-Diarrheal (loperamide)) donepezil 10 mg tablet 5 mg PO DAILY 04/13/25 04/13/25 04/13/25 History metoprolol tartrate 25 mg tablet 75 mg PO HS 04/13/25 04/13/25 04/12/25 History cyanocobalamin (vitamin B-12) 1,000 mcg IM MONTHLY 04/14/25 04/14/25 03/14/25 History 1,000 mcg/mL injection solution Allergies Allergy/AdvReac Type Severity Reaction Status Date / Time No Known Allergies Allergy Verified 01/04/25 16:56 Review of Systems Review of Systems: All systems reviewed & are unremarkable except as noted in HPI and below [facility] Past Medical History Medical History (Updated 07/26/25 @ 08:42 by Daniela Noriega MD) 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 Intermittent self-catheterization of bladder Cardiomyopathy Recurrent incisional hernia Atrial fibrillation with RVR Heart failure Systolic heart failure with EF of 40-45%, severe biatrial enlargement, moderate mitral and tricuspid regurgitation, reduced right ventricular systolic function, indeterminate diastolic function Chronic anemia Vascular dementia Seizures B12 deficiency Depression Gout Osteoarthritis Iron deficiency anemia Benign prostatic hyperplasia Kidney stones Chronic kidney disease, stage 3 Crohn's disease Hyperlipidemia Hypertension Peripheral vascular disease Coronary artery disease Surgical History Surgical History (Updated 04/14/25 @ 10:21 by Sydni Orta DO) History of amputation of left fourth toe S/P CABG (coronary artery bypass graft) History of bilateral cataract extraction History of lithotripsy History of partial colectomy X2 for to bowel obstructions and fistula secondary to Crohn's disease. History of cholecystectomy History of vascular surgery Bilateral lower extremity stents. History of coronary artery bypass graft Family History Family History Father Myocardial infarct Cerebrovascular accident Mother Breast cancer Sibling Crohn's disease Social History Social History Social History: Surrogate decision maker: Sarah Oreilly, spouse. Code status: Do not resuscitate. Smoking packs per day: 2 Smoking cigarettes per day: 40.0 Years smoked: 25 Smoking pack-years: 50.00 Smoking status: Former smoker Second hand tobacco smoke exposure: No Alcohol intake: former Substance use: never Substance use type: does not use Do You Feel Safe in your Home?: Yes Lack of Transportation: No Lack of Food: Never True Current Housing: I Have Housing Concerned About Future Housing: No Difficulty Paying Gas/Electric Bills: No Difficulty Paying for Meds: No Currently Unemployed: No Education: Trade/Vocational Certificate Difficulty w/ Childcare or Family Care: No Additional living arrangements comments: The patient lives with his in [place]. Additional occupation/education comments: Retired from [employer]. Spiritual care concerns: No Exam Narrative: EXAMINATION OF ORGAN SYSTEMS/BODY AREAS: Constitutional: Vital signs per nursing GENERAL:[No acute distress, non-toxic appearing.] Scratching at his arms HEAD: Normal with no signs of head trauma. EYES: EOMI, conjunctiva normal, noninjected. ENT: Hearing grossly intact LUNGS: Nonlabored breathing. HEART: [Regular rate and rhythm] ABD: [Soft], [nontender to palpation] EXT: Normal range of motion SKIN: Itchy rash to arms, face NEURO: [Alert. No gross focal sensory or strength deficits.] PSYCH: Normal affect Course Vital Signs Vital signs: Vital Signs Pulse Rate 97 07/26/25 04:50 Respiratory Rate 16 07/26/25 04:50 Temperature 97.9 F 07/26/25 06:45 Pulse Rate 88 07/26/25 08:16 Respiratory Rate 16 07/26/25 08:16 Blood Pressure 109/77 07/26/25 08:16 Pulse Oximetry 97 07/26/25 04:53 Oxygen Delivery Room Air 07/26/25 06:35 MDM - Altered Mental Status MDM Narrative Medical decision making narrative: Patient recently diagnosed with UTI yesterday, started after her physicians, concerned about being able to care for him adequately at home. He has an itchy rash here, but otherwise is well appearing no signs of SJS given his well appearance and no conjunctivitis, vital signs normal, he did seem confused here, asking if he had dropped something on the floor when he had not, does appear to have a UTI, I will start him on antibiotics here IV, discussed his that ideally if he is improved after the antibiotics he should be able to go home and she is agreeable to this plan. Discussed with hospitalist. EKG - 12-Lead: Performed at 0630. Interpreted by me. AFib. Rate 102. [Normal] axis. WI-interval n/a. QRS duration 95. QTc 501. [No ST segment elevation or depression]. [T-wave normal]. Lab Data 07/26/25 05:52 07/26/25 05:52 Labs: Lab Results 07/26/25 07/26/25 Range/Units 05:51 05:52 WBC 7.5 (4.5-10.0) K/mm3 RBC 3.01 L (4.6-6.20) M/mm3 Hgb 9.5 L (14.0-18.0) g/dL Hct 30.2 L (42.0-52.0) % MCV 100.3 H (80-100) fl MCH 31.6 (26-34) pg MCHC 31.5 L (32-36) g/dl RDW 14.3 (11.5-14.5) % Plt Count 171 (150-375) k/mm3 MPV 9.4 (7.4-10.4) fl Immature Gran % (Auto) 0.5 (0-0.5) % Neut % (Auto) 88.1 H (45.5-73.1) % Lymph % (Auto) 7.8 L (18.3-44.2) % Sully % (Auto) 3.5 (2.6-8.5) % Eos % (Auto) 0.0 (0-4.4) % Baso % (Auto) 0.1 L (0.2-1.2) % Lymph # (Auto) 0.58 L (0.9-3.2) K/mm3 Sully # (Auto) 0.3 (0.1-0.6) K/mm3 Eos # (Auto) 0.0 (0-0.3) K/mm3 Baso # (Auto) 0.0 (0.0-0.1) K/mm3 Abs Immat Gran (auto) 0.04 H (0.00-0.031) K/mm3 Absolute Neuts (auto) 6.6 (1.3-6.7) K/mm3 Absolute Nucleated RBC 0.000 (0.0-0.012) K/mm3 Nucleated RBC % 0.0 (0.0-0.2) % PT 15.5 H (11.1-14.7) Seconds INR 1.2 APTT 34.2 (22.3-36.8) Seconds Sodium 140 (137-145) mmol/L Potassium 3.6 (3.4-5.0) mmol/L Chloride 106 (98-107) mmol/L Carbon Dioxide 25 (22-30) mmol/L Anion Gap 9 (4-12) mmol/L BUN 30 H (9-20) mg/dL Creatinine 2.08 H (0.7-1.3) mg/dL Estim Creat Clear Calc Not Reportable Estimated GFR 31 L (59 - ) Glucose 124 H (65-110) mg/dL Lactic Acid 1.2 (0.7-2.0) mmol/L Calcium 8.6 (8.4-10.2) mg/dL Iron Pending TIBC Pending % Saturation Pending Total Bilirubin 0.5 (0.2-1.3) mg/dL AST 30 (17-59) U/L ALT 25 (6-50) U/L Alkaline Phosphatase 92 (38-126) U/L Total Protein 6.7 (6.3-8.2) g/dL Albumin 3.8 (3.5-5.1) g/dL Urine Color Yellow (Yellow) Urine Appearance Cloudy H (Clear) Urine pH 5.5 (5.0-9.0) Ur Specific [place] 1.018 (1.001-1.035) Urine Protein 1+ H (Negative) mg/dL Urine Glucose (UA) Negative (Negative) mg/dL Urine Ketones Negative (Negative) mg/dL Ur Blood (Man) Negative (Negative) Urine Nitrate Positive H (Negative) Urine Bilirubin Negative (Negative) Urine Urobilinogen 0.2 (<2.0) mg/dL Add Ur Microanalysis Reviewed Leukocyte Esterase Rfl 2+ H (Negative) LUCIO/UL Urine RBC 0-2 (0-2) /hpf Urine WBC 21-50 H (0-3) /hpf Ur Squamous Epith Cells Occasional (Few) /hpf Urine Bacteria None seen /hpf Urine Casts 0-2 Discharge Plan Discharge Clinical Impression: Acute UTI, Delirium, Itching Patient Disposition: Acute Care Hospital Condition: Stable
[2025-07-26 08:51] LABS: Iron 65 ug/dL (49-181)
[2025-07-26 09:00] LABS: Percent Iron Saturation 25 % (20-50)
[2025-07-26] MEDS: ATORVASTATIN 10 MG TABLET PO (17:07)
[2025-07-26] MEDS: MEMANTINE 10 MG TABLET PO (17:08)
[2025-07-26] MEDS: ASPIRIN 81 MG ENTERIC TABLET PO (17:08)
[2025-07-26] MEDS: ESCITALOPRAM OXALATE 10 MG TABLET 20 MG PO (21:09)
[2025-07-26] MEDS: METOPROLOL TARTRATE 25 MG TABLET 75 MG PO (21:09)
[2025-07-27 04:20] VITALS: BP 116/73; PULSE 82; RESP 16; TEMP 36.3; O2SAT 95
[2025-07-27 08:35] VITALS: O2SAT 96
[2025-07-27] MEDS: MEMANTINE 10 MG TABLET PO ×2 (08:35→17:30)
[2025-07-27] MEDS: ASPIRIN 81 MG ENTERIC TABLET PO (08:36)
[2025-07-27] MEDS: cefTRIAXone 1 GM in SODIUM CHLORIDE 0.9% IV 50 ML 100 ML IVPB (08:36)
[2025-07-27] MEDS: ACETAMINOPHEN 325 MG TABLET 650 MG PO (08:36)
[2025-07-27] MEDS: DONEPEZIL HCL 5 MG TABLET PO (08:38)
--- NOTE | 2025-07-27 09:04 | PCPTNOTE ---
Spoke with current hospitalist, pt essentially independent with functional mobility (SBA due to Cognitive deficit). Hospitalist OK with removal of PT order due to pt functioning at baseline. Charge Nurse Kiarra agreed.
[2025-07-27 13:57] VITALS: BP 114/72; PULSE 86; RESP 16; TEMP 36.3; O2SAT 97
--- NOTE | 2025-07-27 16:26 | PM.IMPN ---
Progress Note: A&P Assessment and Plan (1) UTI (urinary tract infection): Code(s): N39.0 - Urinary tract infection, site not specified Status: Acute (2) Atrial fibrillation: Code(s): I48.91 - Unspecified atrial fibrillation Status: Acute (3) Dementia of the Alzheimer's type: Code(s): G30.9 - Alzheimer's disease, unspecified; F02.80 - Dementia in other diseases classified elsewhere, unspecified severity, without behavioral disturbance, psychotic disturbance, mood disturbance, and anxiety Status: Acute (4) Hypertension: Qualifiers: Hypertension type: primary hypertension Qualified Code(s): I10 - Essential (primary) hypertension Code(s): I10 - Essential (primary) hypertension Status: Chronic (5) Hyperlipidemia: Qualifiers: Hyperlipidemia type: mixed hyperlipidemia Qualified Code(s): E78.2 - Mixed hyperlipidemia Code(s): E78.5 - Hyperlipidemia, unspecified Status: Chronic (6) Chronic kidney disease, stage 3: Qualifiers: Chronic kidney disease stage 3 subtype: stage 3b (GFR 30-44) Qualified Code(s): N18.32 - Chronic kidney disease, stage 3b Code(s): N18.30 - Chronic kidney disease, stage 3 unspecified Status: Chronic (7) Seizure disorder: Code(s): G40.909 - Epilepsy, unspecified, not intractable, without status epilepticus Status: Acute (8) Acute metabolic encephalopathy: Code(s): G93.41 - Metabolic encephalopathy Status: Acute Plan patient with history of Crohn's disease, now with UTI and on abx which is making his diarrhea worse, will give Imodium, patient his dementia is stable, while in the hospital. will monitor. Vitaly gregory is a 80 year old male with pmhx of vascular dementia, atrial fibrillation, seizure disorder, chronic kidney disease stage IIIB, peripheral artery disease, gout and BPH with incomplete bladder emptying who presents today ER on 07/26/2025 for altered mental status from home. 1. Acute metabolic encephalopathy etiology likely secondary to urinary tract infection versus delirium in the setting of vascular dementia urinalysis shows nitrite positive, 2+ leukocytes trace and WBC 21-50 ED started ceftriaxone continue ceftriaxone follow urine culture 2. atrial fibrillation continue metoprolol She is not on anticoagulation due to anemia, however his anemia is stable 3. Anemia of chronic disease Anemia stable. Iron study shows % transparent saturation 25% today Avoid dehydration not worsening the a kidney function 4. CKD stage 3 a Stable Avoid dehydration, and said and contrast 5. Hyperlipidemia-continue statin 6. DVT prophylaxis heparin 7. Disposition lives at home. with once clinically stable he can go. Subjective Date/time seen: 07/27/25 16:26 Interval history: Altered mental status H&P-Narrative: Patient is a 80-year-old male with past medical history of vascular dementia, CHF, anxiety depression, CKD stage III and hyperlipidemia who presents with altered mental status for 1 day. At baseline he is oriented x2. He denies any urinary symptoms but urinalysis shows abnormal UA. Patient is admitted for IV antibiotics. In the ED by the 7 was unremarkable. patient with history of Crohn's disease, now with UTI and on abx which is making his diarrhea worse, will give Imodium, patient his dementia is stable, while in the hospital. will monitor. Review of Systems Review of Systems: All systems reviewed & are unremarkable except as noted in HPI and below Exam Narrative: Patient is comfortable, NAD HEENT: eyes are clear and none icteric LUNGS:CTA HEART: RR S1S2 ABD: BS+, Soft and nontender Lower extremities: no edema SKIN: nonjaundiced Neuro: grossly intact. Objective Data Vital Signs Vital Signs: Vital Signs - 24 hr 07/26/25 20:00 07/26/25 20:45 07/26/25 20:50 Temperature 36.6 C Pulse Rate 64 Respiratory Rate 16 Blood Pressure 121/70 Pulse Oximetry 93 93 Oxygen Delivery Room Air [employer] 07/26/25 21:09 07/27/25 04:20 07/27/25 08:35 Temperature 36.3 C L Pulse Rate 64 82 Respiratory Rate 16 Blood Pressure 116/73 Pulse Oximetry 95 96 Oxygen Delivery Room Air 07/27/25 13:57 Temperature 36.3 C L Pulse Rate 86 Respiratory Rate 16 Blood Pressure 114/72 Pulse Oximetry 97 Oxygen Delivery Intake/Output Intake/Output: Intake & Output 07/24/25 07/25/25 07/26/25 07/27/25 22:59 23:59 23:59 23:59 Intake Total 752 530 Output Total 1000 Balance -248 530 Meds/Results Medications: Active Medications Generic Name Dose Route Start Last Admin Trade Name Freq PRN Reason Stop Dose Admin Acetaminophen 650 mg 07/26/25 16:38 07/27/25 08:36 Acetaminophen 325 Mg Tablet PO 650 mg Q4H PRN Administration Headache Allopurinol 100 mg 07/26/25 21:00 07/26/25 21:09 Allopurinol 100 Mg Tablet PO 100 mg HS SUZAN Administration Aspirin 81 mg 07/27/25 09:00 07/27/25 08:36 Aspirin 81 Mg Enteric Tablet PO 08/26/25 08:59 81 mg DAILY SUZAN Administration Atorvastatin Calcium 10 mg 07/26/25 18:00 07/26/25 17:07 Atorvastatin 10 Mg Tablet PO 10 mg QPM SUZAN Administration Cilostazol 100 mg 07/26/25 21:00 07/26/25 21:09 Cilostazol 100 Mg Tablet PO 100 mg HS USZAN Administration Donepezil HCl 5 mg 07/27/25 09:00 07/27/25 08:38 Donepezil Hcl 5 Mg Tablet PO 5 mg DAILY SUZAN Administration Escitalopram Oxalate 20 mg 07/26/25 21:00 07/26/25 21:09 Escitalopram Oxalate 10 Mg Tablet PO 20 mg HS SUZAN Administration Ceftriaxone Sodium 1 gm/ 50 mls @ 100 mls/hr 07/27/25 09:00 07/27/25 09:06 Sodium Chloride IVPB 07/28/25 12:00 Infused DAILY SUZAN Infusion Levetiracetam 750 mg 07/26/25 21:00 07/27/25 08:36 Levetiracetam 250 Mg Tablet PO 750 mg Q12HR SUZAN Administration Loperamide HCl 2 mg 07/27/25 11:03 Loperamide Hcl 2 Mg Capsule PO PRN PRN Diarrhea Memantine 10 mg 07/26/25 17:00 07/27/25 08:35 Memantine 10 Mg Tablet PO 10 mg BID SUZAN Administration Methylprednisolone Sodium Succinate 40 mg 07/26/25 22:00 07/27/25 15:35 Methylprednisolone Sod Succ 40 Mg Vial IV PUSH 40 mg Q8HR SUZAN Administration Metoprolol Tartrate 75 mg 07/26/25 21:00 07/26/25 21:09 Metoprolol Tartrate 25 Mg Tablet PO 75 mg HS SUZAN Administration Quality VTE Prophylaxis VTE prophylaxis: pharmacologic ordered
[2025-07-27] MEDS: ATORVASTATIN 10 MG TABLET PO (17:30)
[2025-07-27] MEDS: LOPERAMIDE HCL 2 MG CAPSULE PO ×2 (17:32→20:59)
[2025-07-27 20:43] VITALS: BP 137/84; PULSE 72; RESP 16; TEMP 36.4; O2SAT 96
[2025-07-27 20:59] VITALS: PULSE 72
[2025-07-27] MEDS: ESCITALOPRAM OXALATE 10 MG TABLET 20 MG PO (20:59)
[2025-07-27] MEDS: METOPROLOL TARTRATE 25 MG TABLET 75 MG PO (20:59)
[2025-07-28 05:39] VITALS: BP 135/81; PULSE 88; RESP 16; TEMP 36.8; O2SAT 99
[2025-07-28] MEDS: DONEPEZIL HCL 5 MG TABLET PO (08:22)
[2025-07-28] MEDS: MEMANTINE 10 MG TABLET PO (08:22)
[2025-07-28] MEDS: LOPERAMIDE HCL 2 MG CAPSULE PO (08:22)
[2025-07-28] MEDS: cefTRIAXone 1 GM in SODIUM CHLORIDE 0.9% IV 50 ML 100 ML IVPB (08:22)
[2025-07-28] MEDS: ASPIRIN 81 MG ENTERIC TABLET PO (08:22)
[2025-07-28] MEDS: ACETAMINOPHEN 325 MG TABLET 650 MG PO (08:23)
[2025-07-28 08:59] LABS: Hematocrit 30.6 % (42.0-52.0); Hemoglobin 9.4 g/dL (14.0-18.0); Mean Corpuscular HGB Conc 30.7 g/dl (32-36); Mean Corpuscular Hemoglobin 31.9 pg (26-34); Mean Corpuscular Volume 103.7 fl (80-100); Platelet Count Result 173 k/mm3 (150-375); Red Blood Count 2.95 M/mm3 (4.6-6.20); White Blood Count 13.2 K/mm3 (4.5-10.0)
[2025-07-28 09:18] LABS: Albumin Level 3.6 g/dL (3.5-5.1); Anion Gap 7 mmol/L (4-12); Blood Urea Nitrogen 30 mg/dL (9-20); Calcium 8.2 mg/dL (8.4-10.2); Carbon Dioxide 26 mmol/L (22-30); Chloride 106 mmol/L (98-107); Estimated CRCL calculation 26 ml/min; Estimated Glomerular Filt Rate 35; Glucose 195 mg/dL (65-110); Magnesium 1.8 mg/dL (1.6-2.3); Potassium 3.9 mmol/L (3.4-5.0); Sodium 139 mmol/L (137-145)
--- NOTE | 2025-07-28 12:47 | PM.DS ---
DS: Admitting Diagnosis Discharge Date 07/28/25 Admitting Diagnosis Altered mental status DS: Discharge Diagnosis Discharge Diagnosis (1) UTI (urinary tract infection): Code(s): N39.0 - Urinary tract infection, site not specified Status: Acute (2) Atrial fibrillation: Code(s): I48.91 - Unspecified atrial fibrillation Status: Acute (3) Dementia of the Alzheimer's type: Code(s): G30.9 - Alzheimer's disease, unspecified; F02.80 - Dementia in other diseases classified elsewhere, unspecified severity, without behavioral disturbance, psychotic disturbance, mood disturbance, and anxiety Status: Acute (4) Hypertension: Qualifiers: Hypertension type: primary hypertension Qualified Code(s): I10 - Essential (primary) hypertension Code(s): I10 - Essential (primary) hypertension Status: Chronic (5) Hyperlipidemia: Qualifiers: Hyperlipidemia type: mixed hyperlipidemia Qualified Code(s): E78.2 - Mixed hyperlipidemia Code(s): E78.5 - Hyperlipidemia, unspecified Status: Chronic (6) Chronic kidney disease, stage 3: Qualifiers: Chronic kidney disease stage 3 subtype: stage 3b (GFR 30-44) Qualified Code(s): N18.32 - Chronic kidney disease, stage 3b Code(s): N18.30 - Chronic kidney disease, stage 3 unspecified Status: Chronic (7) Seizure disorder: Code(s): G40.909 - Epilepsy, unspecified, not intractable, without status epilepticus Status: Acute (8) Acute metabolic encephalopathy: Code(s): G93.41 - Metabolic encephalopathy Status: Acute Plan patient with history of Crohn's disease, now with UTI and on abx which is making his diarrhea worse, will give Imodium, patient his dementia is stable, while in the hospital. will monitor. Vitaly gregory is a 80 year old male with pmhx of vascular dementia, atrial fibrillation, seizure disorder, chronic kidney disease stage IIIB, peripheral artery disease, gout and BPH with incomplete bladder emptying who presents today ER on 07/26/2025 for altered mental status from home. 1. Acute metabolic encephalopathy etiology likely secondary to urinary tract infection versus delirium in the setting of vascular dementia urinalysis shows nitrite positive, 2+ leukocytes trace and WBC 21-50 ED started ceftriaxone continue ceftriaxone follow urine culture 2. atrial fibrillation continue metoprolol She is not on anticoagulation due to anemia, however his anemia is stable 3. Anemia of chronic disease Anemia stable. Iron study shows % transparent saturation 25% today Avoid dehydration not worsening the a kidney function 4. CKD stage 3 a Stable Avoid dehydration, and said and contrast 5. Hyperlipidemia-continue statin 6. DVT prophylaxis heparin 7. Disposition lives at home. with once clinically stable he can go. DS: Summary Hospital Course Hospital Course: patient with history of Crohn's disease, now with UTI and on abx which was making his diarrhea worse, will give Imodium, patient his dementia is stable, while in the hospital. will monitor. patient urine culture is did not grow any bacteria, patient clinical and mental status his baseline per his who is present in the room, patient is clinically stable, will discharge home today with his . Time Spent with Patient Time attestation: Total time spent providing and/or coordinating discharge services: Exam Narrative: Patient is comfortable, NAD HEENT: eyes are clear and none icteric LUNGS:CTA HEART: RR S1S2 ABD: BS+, Soft and nontender Lower extremities: no edema SKIN: nonjaundiced Neuro: grossly intact. DS: Data Data Completed and Pending Labs on day of discharge: Labs from last 24 hours 07/28/25 08:44 WBC 13.2 H RBC 2.95 L Hgb 9.4 L Hct 30.6 L MCV 103.7 H MCH 31.9 MCHC 30.7 L RDW 14.9 H Plt Count 173 MPV 10.0 Sodium 139 Potassium 3.9 Chloride 106 Carbon Dioxide 26 Anion Gap 7 BUN 30 H Creatinine 1.86 H Estim Creat Clear Calc 26 Estimated GFR 35 L Glucose 195 H Calcium 8.2 L Phosphorus 3.5 Magnesium 1.8 Albumin 3.6 Discharge Plan Discharge Attending physician on discharge: Brooke Tomlinson Consulting providers: Uday Alston Discharging Clinician: Rajeev King Patient Disposition: Home Activity: as tolerated Diet: heart healthy Discharge Instructions: patient to follow up with his primary care provider as soon as possible, if any symptoms worsen to go to nearest ER. Patient Instructions: Antibiotic Form Patient Language: Turkish Stand Alone Forms: General Discharge Information Follow-up/Referrals: Jayne,Preethi Enciso APRN [Primary Care Provider, Unknown] Discharge Medications: New prednisone 10 mg tablet 10 mg PO DAILY Qty: 70 0RF Rx Instructions: 4Tx7d, 3Tx7d, 2Tx7d, 1Tx7d thereafter continue home dose. Continued furosemide 40 mg tablet 40 mg PO DAILY cephalexin 250 mg capsule 250 mg PO Q8H cilostazol 100 mg tablet 100 mg PO HS atorvastatin 10 mg tablet 10 mg PO QPM allopurinol 100 mg tablet 100 mg PO HS aspirin 81 mg Tablet 81 mg PO DAILY ferrous sulfate [FeroSul] 325 mg (65 mg iron) tablet 325 mg PO DAILY@0800 escitalopram oxalate 20 mg tablet 20 mg PO HS loperamide [Anti-Diarrheal (loperamide)] 2 mg capsule 2 mg PO Q1-3H PRN (Reason: loose stool) Rx Instructions: administer after each loose stool until symptoms controlled; do not exceed 8 mg per 24 hrs metoprolol tartrate 25 mg tablet 75 mg PO HS donepezil 10 mg tablet 5 mg PO DAILY Rx Instructions: in the morning cyanocobalamin (vitamin B-12) 1,000 mcg/mL solution 1,000 mcg IM MONTHLY memantine 10 mg tablet 10 mg PO BID Qty: 180 3RF levetiracetam 750 mg tablet 750 mg PO Q12HR 30 Days Qty: 180 3RF Held prednisone 10 mg tablet Hold Instructions: until seen by his primary care provider. Patient Comments: tapering dose of Prednisone Date of admission: 07/26/25 07:34 Primary Care Provider: Jayne,Preethi Enciso Admitting Provider: Brooke Tomlinson Attending physician on admission: Rajeev King Condition: Stable
== END 2025-07-28 14:05 | disposition home or self-care (01) | DRG 689 ==
LOC: ANHED 07:14 → ANH2MED 07:44
PROVIDERS: Student in an Organized Health Care Education/Training Program; Admitting Provider Student in an Organized Health Care Education/Training Program; Emergency Provider Emergency Medicine; PCP Nurse Practitioner Family; Visit Provider Family Medicine
DX: N39.0 Urinary tract infection, site not specified (principal); G93.41 Metabolic encephalopathy; I13.0 Hypertensive heart and chronic kidney disease with heart failure and stage 1 through stage 4 chronic kidney disease, or unspecified chronic kidney disease; I50.22 Chronic systolic (congestive) heart failure; K50.90 Crohn's disease, unspecified, without complications; D63.1 Anemia in chronic kidney disease; E78.5 Hyperlipidemia, unspecified; F02.80 Dementia in other diseases classified elsewhere, unspecified severity, without behavioral disturbance, psychotic disturbance, mood disturbance, and anxiety; F41.9 Anxiety disorder, unspecified; F32.A Depression, unspecified; G30.9 Alzheimer's disease, unspecified; G40.909 Epilepsy, unspecified, not intractable, without status epilepticus; I48.91 Unspecified atrial fibrillation; I73.9 Peripheral vascular disease, unspecified; N18.31 Chronic kidney disease, stage 3a; Z86.73 Personal history of transient ischemic attack (TIA), and cerebral infarction without residual deficits; I25.10 Atherosclerotic heart disease of native coronary artery without angina pectoris; Z95.1 Presence of aortocoronary bypass graft; Z98.41 Cataract extraction status, right eye; Z98.42 Cataract extraction status, left eye; Z90.49 Acquired absence of other specified parts of digestive tract; Z66 Do not resuscitate; Z87.891 Personal history of nicotine dependence; Z79.82 Long term (current) use of aspirin
CPT/HCPCS: 36415; 80053; 80069; 81001; 83540; 83550; 83605; 83735; 85025; 85027; 85610; 85730; 87040; 87086; 93005; 97165; 99285; A9270; J0696; J2919

== ENCOUNTER 2025-09-05 22:00 | Inpatient (IN) | payer MEDICARE, SELFPAY ==
[2025-09-05] VITALS (10 sets, daily range): BP systolic 139–166; BP diastolic 97–129; PULSE 66–173; RESP 17–25; TEMP 37.2; O2SAT 94–100
--- NOTE | ~2025-09-05 | CT_ITS ---
EXAMINATION: CTA chest PE abdomen pel DATE: 09/06/2025 01:15 INDICATION: Pulmonary embolism. Fever. TECHNIQUE: Computed tomography angiography (CTA) of the chest was performed with 100 mL Omnipaque-350 intravenous contrast timed to evaluate the pulmonary arteries. Coronal maximum intensity projection 3D-reconstructions were created by the technologist. Computed tomography (CT) of the abdomen and pelvis was performed with intravenous contrast. Automated exposure control and iterative reconstruction technique were employed. The dose-length product was 921.89 mGy-cm. COMPARISON: CT abdomen and pelvis 01/04/2025 FINDINGS: CTA chest: There is chronic bilateral pleural thickening with trace pleural effusions. There are peripheral airspace opacities with volume loss in the lower lobes. There are centrilobular nodules and tree-in-bud opacities in the lower lobes, consistent with pneumonia. There is material in the bronchi in the lower lobes. There is mild atelectasis in right middle lobe and left upper lobe. There is a stable 7 mm nodule at right major fissure, likely benign. Cardiomegaly is noted. There are changes of coronary artery bypass grafting. No pericardial effusion. There is no pulmonary embolus. There are bridging endplate osteophytes at multiple levels in the spine, consistent with diffuse idiopathic skeletal hyperostosis (DISH). There is severe cervical spondylosis and mild thoracic spondylosis. CT abdomen and pelvis: There is a 4 mm nodule in the liver. There are changes of cholecystectomy. The spleen, pancreas, and adrenal glands are normal. There is cortical thinning of the kidneys. There are cysts in right kidney measuring up to 8 mm. There are surgical changes of right colon. There is chronic dilatation of ileum with chronic mild wall thickening of the terminal ileum. There are no pathologically enlarged lymph nodes. There is no ascites. There is moderate lumbar spondylosis. IMPRESSION: 1. Combination of pneumonia and rounded atelectasis in the lower lobes. 2. No pulmonary embolus. 3. Chronic dilatation of ileum with chronic mild wall thickening of the terminal ileum, consistent with Crohn disease and adynamic ileus. Reviewed, dictated and finalized at location E. ICAL SECURITY SPECIALIST IMPRESSION: 1. Combination of pneumonia and rounded atelectasis in the lower lobes. 2. No pulmonary embolus. 3. Chronic dilatation of ileum with chronic mild wall thickening of the termina l ileum, consistent with Crohn disease and adynamic ileus.
--- NOTE | ~2025-09-05 | CT_ITS ---
CT HEAD NON-CONTRAST Clinical History: altered mental status Comparison: 11/28/2024 Technique: Unenhanced axial images skull base to vertex Coronal, sagittal reformats CT images acquired with automatic exposure control for dose reduction DLP: 1513 mGy-cm Findings: Age-related atrophy. Chronic white matter microvascular ischemic changes. Sulci, ventricles: Unremarkable. No intracerebral hemorrhage. No evidence acute territorial infarct. No mass effect, midline shift. Bony calvarium intact. Visualized paranasal sinuses: Clear. Mastoid air cells: Clear. IMPRESSION: 1. No acute intracranial findings. Reviewed, dictated and finalized at location R. ICATIONS SYSTEMS ANALYST
--- NOTE | ~2025-09-05 | XR_ITS ---
Examination: XR chest 2V Clinical History: unknown cause of fever Comparison: 01/07/2025 Technique: PA and Lateral Findings: Cardiomegaly. Persistent bibasilar airspace opacities. No acute bony abnormality. IMPRESSION: 1. Bibasilar atelectasis and/or airspace disease. Reviewed, dictated and finalized at location R. ITY HEAD
--- NOTE | ~2025-09-05 | XR_ITS ---
EXAM/PROCEDURE: XR barium swallow modified HISTORY: possible aspiration COMPARISON: None available. TECHNIQUE: Modified barium swallow Fluoroscopy time: 2.8 minutes DAP: 1.858 Colon per square centimeter IMPRESSION: No aspiration observed. See speech therapist's note for complete evaluation. Reviewed, dictated and finalized at location A. COUNSELOR
--- OUTSIDE RECORDS SUMMARY | 2025-09-05 23:03 | XMS_ITS | Clinical Summary ---
Author Organization [facility] Address [address] [place] [address] Care Team Providers Care Foundation Director Name Role Phone Kath Shepherd MD Unavailable Peter Ya MD Unavailable [phone] Aziza Ledesma MD Unavailable [phone] Jeffery Bustillos MD Unavailable [phone] Shimon Schofield MD Unavailable Preethi Godoy NP Primary Care Provider [phone] Paulina Gama DPM Unavailable [phone] Basilio Perry NP Unavailable Allergies Active Allergy Reactions Criticality Noted Date Comments Pork/Porcine Containing Products Diarrhea Medium 04/23/2025 Pork containing food products Medications coenzyme Q10 10 mg capsule Take 2 capsules (20 mg total) by mouth every morning Active tpicx-7-qqt-ep a-dpa-fish oil 1,050-1,200 mg capsule Take 1 capsule by mouth 2 times daily Active multivitamin no.44-vit D3-K 1,000-800 unit-mcg capsule Take 1 capsule by mouth every morning Active aspirin 81 mg enteric coated tabletIndicati ons:cardiac stent Take 1 tablet (81 mg total) by mouth every morning 10/11/19 17 Active loperamide HCl (IMODIUM A-D ORAL) Take 2 mg by mouth 4 (four) times a day as needed (diarrhea) Active levETIRAcetam (KEPPRA) 750 mg tablet Take 1 tablet (750 mg total) by mouth 2 (two) times a day Active donepeziL (ARICEPT) 5 mg tablet Take 1 tablet (5 mg total) by mouth daily before breakfast Active cyanocobalamin (Vitamin B-12) 1,000 mcg/mL injection ADMINISTER 1 ML(1000 MCG) IN THE MUSCLE EVERY 30 DAYS DIRECTED 1 mL 3 09/09/20 24 Active furosemide (LASIX) 40 mg tabletIndicati ons:PREMA (acute kidney injury) TAKE 1 TABLET BY MOUTH TWICE DAILY 180 tablet 1 10/05/19 25 Active Additional Information Patient not taking.Reported on 08/08/2025 fluticasone propionate (FLONASE) 50 mcg/actuation nasal spray Administer 2 sprays into each nostril daily 48 g 3 11/10/19 25 Active memantine (NAMENDA) 10 mg tablet Take 1 tablet (10 mg total) by mouth 2 (two) times a day 02/08/20 25 Active clopidogreL (PLAVIX) 75 mg tabletIndicati ons:Thrombosis Prevention Take 1 tablet (75 mg total) by mouth daily 30 tablet 11 04/27/20 25 026 Active Lactobacillus acidophilus (Probiotic) 10 billion cell capsule Take 2 tablets by mouth 2 (two) times a day Active risankizumab-r zaa (Skyrizi) 360 mg/2.4 mL (150 mg/mL) wearable injectorIndica tions:Crohn's Disease Inject 360 mg under the skin every 8 (eight) weeks 2.4 mL 04/28/20 25 Active hydrocortisone 2.5 % ointmentIndica tions:Contact dermatitis due to plants, except food, unspecified contact dermatitis type Apply topically 2 (two) times a day as needed for rash for up to 10 days 30 g 05/04/20 25 Active metoprolol XL (TOPROL-XL) 25 mg extended release tablet Take 1 tablet (25 mg total) by mouth daily 30 tablet 11 05/12/20 25 026 Active Additional Information Patient not taking.Reported on 08/08/2025 escitalopram (LEXAPRO) 20 mg tabletIndicati ons: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),Cerebral amyloid angiopathy (HCC),KAYLA (generalized anxiety disorder) Take 1 tablet (20 mg total) by mouth daily 100 tablet 1 05/17/20 25 Active allopurinoL (ZYLOPRIM) 100 mg tabletIndicati ons:History of gout TAKE 1 TABLET DAILY 90 tablet 1 05/20/20 25 Active tamsulosin (FLOMAX) 0.4 mg extended release capsuleIndicat ions:benign prostatic hyperplasia with lower urinary tract sx Take 1 capsule (0.4 mg total) by mouth daily 90 capsule 3 05/24/20 25 026 Active atorvastatin (LIPITOR) 10 mg tablet TAKE 1 TABLET NIGHTLY 90 tablet 3 06/03/20 25 Active ferrous sulfate (FeroSuL) 325 mg (65 mg of elemental iron) tablet Take 1 tablet (325 mg total) by mouth daily with breakfast 100 tablet 1 06/24/20 25 Active donepeziL (ARICEPT) 10 mg tablet Take 1 tablet (10 mg total) by mouth every morning 04/06/20 25 Active predniSONE (DELTASONE) 10 mg tabletIndicati ons:Dermatitis Take 4 tabs days 1-3, 3 tabs days 4 & 5, 2 tabs days 6 & 7, 1 tab days 7- 8. 24 tablet 07/25/20 25 Active triamcinolone (KENALOG) 0.1 % ointmentIndica tions:Dermatit is Apply topically 2 (two) times a day Avoid face and genital area 30 g 07/25/20 25 Active cilostazoL (PLETAL) 100 mg tablet Take 1 tablet (100 mg total) by mouth nightly 100 tablet 1 08/23/20 25 Active amLODIPine (NORVASC) 5 mg tablet Take 0.5 tablets (2.5 mg total) by mouth 2 (two) times a day 10/08/19 23 023 Discontinued irbesartan (AVAPRO) 150 mg tablet Take 0.5 tablets (75 mg total) by mouth daily 90 tablet 1 10/28/19 23 023 Discontinued cilostazoL (PLETAL) 100 mg tablet Take 1 tablet (100 mg total) by mouth nightly 100 tablet 4 05/28/20 24 025 Discontinued(R eorder) doxycycline (VIBRAMYCIN) 100 mg capsule Take 1 tablet/capsule (100 mg total) by mouth 2 (two) times a day for 10 days 20 tablet/caps ule 08/10/20 25 025 amoxicillin-cl avulanate (AUGMENTIN) 500-125 mg per tablet Take 1 tablet by mouth 3 (three) times a day for 10 days 30 tablet 08/10/20 25 025 Hospital, Clinic, or Other Facility Administered Medication Ordered Dose Route Frequency Start Date End Date Status [facility] [id number]/placebo ([id number]) capsule 4 capsuleIndications:Crohn' s disease of both small and large intestine with other complication 4 capsule oral 2 times daily 05/21/2022 Act esau INV-[facility] BMS-[id number]/placebo (/[id number]) capsule 4 capsuleIndications:Crohn' s disease of both small and large intestine with other complication 4 capsule oral 2 times daily 06/18/2022 Act esau [facility] [id number]/placebo (/[id number]) capsule 4 capsuleIndications:Crohn' s disease of both small and large intestine with other complication 4 capsule oral 2 times daily 07/09/2022 Act esau [facility] BMS-[id number]/placebo (/[id number]) capsule 4 capsuleIndications:Crohn' s disease of both small and large intestine with other complication 4 capsule oral 2 times daily 08/07/2022 Act esau [facility] BMS-[id number]/placebo ([id number]) capsule 4 capsuleIndications:Crohn' s disease of both small and large intestine with other complication 4 capsule oral 2 times daily 09/19/2022 [id number] (/[id number]) capsule 4 capsuleIndications:Crohn' s disease of both small and large intestine with other complication 4 capsule oral 2 times daily 10/21/2022 Act esau Active Problems Problem Noted Date Diagnosed Date S/P peripheral artery angioplasty 06/27/2025 Assessment & Plan (06/27/2025 2:34 PM CDT): At the close of his angiogram following angioplasty of a distal left [employer] occlusion; the [employer] appeared to have runoff into the plantar vessels. On today's duple examination, the distal [employer] is without flow however his left great toe ulcer has healed, his left great toe pressure is 69 and the distal waveforms look improved when compared to waveforms obtained prior to intervention. We'll monitor him with repeat ABIs and toe pressures in three months. He'd like to arrange them closer to home at [facility] facility in [place], [place]. Abnormal urinalysis 06/06/2025 Acute UTI 06/06/2025 Assessment & Plan (06/06/2025 1:24 PM CDT): Currently taking Macrobid per Urologist. Pt's believes sx improving. Adult failure to thrive 06/06/2025 Altered mental status 06/06/2025 Asymptomatic bacteriuria 06/06/2025 Benign prostatic hyperplasia 06/06/2025 Cardiomyopathy 06/06/2025 COVID-19 06/06/2025 Dehydration 06/06/2025 Fall 06/06/2025 Fall from bed 06/06/2025 Fever 06/06/2025 Hypokalemia 06/06/2025 Influenza A 06/06/2025 Metabolic acidosis 06/06/2025 New onset of congestive heart failure 06/06/2025 Assessment & Plan (08/08/2025 4:27 PM SPECIALTY DEVELOPMENT CONSULTANT): Patient has established with Nephrology. Discussed pt's Lasix that was dc'd and likely the reason why d/t hypotension in the office. Recheck labs today given pt's symptoms and see if water retention occurring. May need to restart the Lasix at low dose. Discussed Metoprolol parameters with patient and his , BP fine in office today. Seizure disorder 06/06/2025 Transaminitis 06/06/2025 Sepsis 04/20/2025 Assessment & Plan (04/24/2025 12:59 PM CDT): Stable now Bc 04/21 ngtd cefepime day 5, will dc Labs rev Bc 04/21 ngtd Lab Results Component Value Date GLUCOSE 93 04/24/2025 CALCIUM 8.3 (L) 04/24/2025 SODIUM 139 04/24/2025 POTASSIUM 3.7 04/24/2025 CO2 24 04/24/2025 CHLORIDE 104 04/24/2025 BUNSER 24 04/24/2025 CREATININE 2.12 (H) 04/24/2025 Lab Results Component Value Date WBC 7.61 04/24/2025 HGB 9.1 (L) 04/24/2025 HCT 28.3 (L) 04/24/2025 MCV 97.6 (H) 04/24/2025 LABPLAT 179 04/24/2025 Assessment & Plan (04/23/2025 2:40 PM CDT): Stable now 04/21 ngtd Cont cefepime Labs rev 04/21 ngtd Lab Results Component Value Date GLUCOSE 92 04/23/2025 CALCIUM 8.3 (L) 04/23/2025 SODIUM 140 04/23/2025 POTASSIUM 3.4 04/23/2025 CO2 26 04/23/2025 CHLORIDE 101 04/23/2025 BUNSER 25 04/23/2025 CREATININE 2.10 (H) 04/23/2025 Lab Results Component Value Date WBC 8.16 04/23/2025 HGB 9.2 (L) 04/23/2025 HCT 28.2 (L) 04/23/2025 MCV 99.3 (H) 04/23/2025 LABPLAT 158 04/23/2025 Assessment & Plan (04/22/2025 12:33 PM CDT): Stable now 04/21 ngtd Cont cefepime Labs rev 04/21 ngtd Lab Results Component Value Date GLUCOSE 122 04/22/2025 CALCIUM 8.6 04/22/2025 SODIUM 140 04/22/2025 POTASSIUM 3.5 04/22/2025 CO2 23 04/22/2025 CHLORIDE 105 04/22/2025 BUNSER 30 (H) 04/22/2025 CREATININE 1.93 (H) 04/22/2025 Lab Results Component Value Date WBC 16.09 (H) 04/21/2025 HGB 10.3 (L) 04/21/2025 HCT 32.0 (L) 04/21/2025 MCV 99.1 (H) 04/21/2025 LABPLAT 130 (L) 04/21/2025 Assessment & Plan (04/21/2025 2:48 PM CDT): Severe with provoked a fib rvr Aspirated 04/19 in PM, 04/20 in PM with meds Cont cefepime mrsa pcr= neg Rpt bolus 1 L IVF Labs rev Bc 04/21 ngtd Lab Results Component Value Date GLUCOSE 114 04/21/2025 CALCIUM 8.5 04/21/2025 SODIUM 137 04/21/2025 POTASSIUM 4.0 04/21/2025 CO2 21 (L) 04/21/2025 CHLORIDE 105 04/21/2025 BUNSER 36 (H) 04/21/2025 CREATININE 2.04 (H) 04/21/2025 Lab Results Component Value Date WBC 16.09 (H) 04/21/2025 HGB 10.3 (L) 04/21/2025 HCT 32.0 (L) 04/21/2025 MCV 99.1 (H) 04/21/2025 LABPLAT 130 (L) 04/21/2025 Assessment & Plan (04/20/2025 2:44 PM CDT): Severe- sepsis is severe and can lead to rapid decompensation without acute management Aspirated 04/19 in PM Collateral from : intermittently chokes on food. Concerned about increased WOB now 04/20 tachypnea, tachycardia. Procal 10.9. CXR rev/int= worsening lower infiltrates. He has increased wob but currently on [employer]= thin liquids and regular diet. I dw regarding making sure he is upright and awake for feedings Aspiration precautions Start cefepime Checked mrsa pcr= neg Ordered, rev/int cxr on 04/20 = increased infiltrates Bolus 2L IVF Add acapella and duonebs Bc x2 Checking cbc and LA Labs rev Procal 10.9 Mrsa pcr neg Rvp negative Lab Results Component Value Date GLUCOSE 89 04/20/2025 CALCIUM 8.7 04/20/2025 SODIUM 140 04/20/2025 POTASSIUM 3.9 04/20/2025 CO2 18 (L) 04/20/2025 CHLORIDE 109 04/20/2025 BUNSER 43 (H) 04/20/2025 CREATININE 2.20 (H) 04/20/2025 Aspiration pneumonia 04/20/2025 Assessment & Plan (04/24/2025 12:59 PM CDT): Stable now 04/21 ngtd cefepime day 5, will dc Labs rev 04/21 ngtd Lab Results Component Value Date GLUCOSE 93 04/24/2025 CALCIUM 8.3 (L) 04/24/2025 SODIUM 139 04/24/2025 POTASSIUM 3.7 04/24/2025 CO2 24 04/24/2025 CHLORIDE 104 04/24/2025 BUNSER 24 04/24/2025 CREATININE 2.12 (H) 04/24/2025 Lab Results Component Value Date WBC 7.61 04/24/2025 HGB 9.1 (L) 04/24/2025 HCT 28.3 (L) 04/24/2025 MCV 97.6 (H) 04/24/2025 LABPLAT 179 04/24/2025 Assessment & Plan (04/23/2025 2:40 PM CDT): Stable now 04/21 ngtd Cont cefepime Labs rev 04/21 ngtd Lab Results Component Value Date GLUCOSE 92 04/23/2025 CALCIUM 8.3 (L) 04/23/2025 SODIUM 140 04/23/2025 POTASSIUM 3.4 04/23/2025 CO2 26 04/23/2025 CHLORIDE 101 04/23/2025 BUNSER 25 04/23/2025 CREATININE 2.10 (H) 04/23/2025 Lab Results Component Value Date WBC 8.16 04/23/2025 HGB 9.2 (L) 04/23/2025 HCT 28.2 (L) 04/23/2025 MCV 99.3 (H) 04/23/2025 LABPLAT 158 04/23/2025 Assessment & Plan (04/22/2025 12:33 PM CDT): Stable now 04/21 ngtd Cont cefepime Labs rev 04/21 ngtd Lab Results Component Value Date GLUCOSE 122 04/22/2025 CALCIUM 8.6 04/22/2025 SODIUM 140 04/22/2025 POTASSIUM 3.5 04/22/2025 CO2 23 04/22/2025 CHLORIDE 105 04/22/2025 BUNSER 30 (H) 04/22/2025 CREATININE 1.93 (H) 04/22/2025 Lab Results Component Value Date WBC 16.09 (H) 04/21/2025 HGB 10.3 (L) 04/21/2025 HCT 32.0 (L) 04/21/2025 MCV 99.1 (H) 04/21/2025 LABPLAT 130 (L) 04/21/2025 Assessment & Plan (04/21/2025 2:48 PM CDT): Severe with provoked a fib rvr Aspirated 04/19 in PM, 04/20 in PM with meds Cont cefepime mrsa pcr= neg Rpt bolus 1 L IVF Labs rev Bc 04/21 ngtd Lab Results Component Value Date GLUCOSE 114 04/21/2025 CALCIUM 8.5 04/21/2025 SODIUM 137 04/21/2025 POTASSIUM 4.0 04/21/2025 CO2 21 (L) 04/21/2025 CHLORIDE 105 04/21/2025 BUNSER 36 (H) 04/21/2025 CREATININE 2.04 (H) 04/21/2025 Lab Results Component Value Date WBC 16.09 (H) 04/21/2025 HGB 10.3 (L) 04/21/2025 HCT 32.0 (L) 04/21/2025 MCV 99.1 (H) 04/21/2025 LABPLAT 130 (L) 04/21/2025 Assessment & Plan (04/20/2025 2:44 PM CDT): Severe- sepsis is severe and can lead to rapid decompensation without acute management Aspirated 04/19 in PM Collateral from : intermittently chokes on food. Concerned about increased WOB now 04/20 tachypnea, tachycardia. Procal 10.9. CXR rev/int= worsening lower infiltrates. He has increased wob but currently on [employer]= thin liquids and regular diet. I dw regarding making sure he is upright and awake for feedings Aspiration precautions Start cefepime Checked mrsa pcr= neg Ordered, rev/int cxr on 04/20 = increased infiltrates Bolus 2L IVF Add acapella and duonebs Bc x2 Checking cbc and LA Labs rev Procal 10.9 Mrsa pcr neg Rvp negative Lab Results Component Value Date GLUCOSE 89 04/20/2025 CALCIUM 8.7 04/20/2025 SODIUM 140 04/20/2025 POTASSIUM 3.9 04/20/2025 CO2 18 (L) 04/20/2025 CHLORIDE 109 04/20/2025 BUNSER 43 (H) 04/20/2025 CREATININE 2.20 (H) 04/20/2025 Delayed surgical wound healing 04/15/2025 Assessment & Plan (04/24/2025 12:59 PM CDT): Delayed wound healing at site of left great toenail removal. Status post vancomycin and cefepime. DEREK unobtainable due to incompressible vessels Dw vascular- vascular note reviewed, plan for angio 04/25 Npo @ [facility] Assessment & Plan (04/23/2025 2:40 PM CDT): Delayed wound healing at site of left great toenail removal. Status post vancomycin and cefepime. DEREK unobtainable due to incompressible vessels Dw vascular- angiogram week of 04/25 Assessment & Plan (04/22/2025 12:33 PM CDT): Delayed wound healing at site of left great toenail removal. Status post vancomycin and cefepime. DEREK unobtainable due to incompressible vessels Dw vascular- will reassess for timing of angiogram Assessment & Plan (04/21/2025 2:48 PM CDT): Delayed wound healing at site of left great toenail removal. Status post vancomycin and cefepime. DEREK unobtainable due to incompressible vessels Dw vascular- delay angiogram until sepsis and a fib controlled Assessment & Plan (04/20/2025 2:44 PM CDT): Delayed wound healing at site of left great toenail removal. Status post vancomycin and cefepime. DEREK unobtainable due to incompressible vessels Plan for angiogram thsi week Labs rev Lab Results Component Value Date HGBA1C 4.9 04/16/2025 No results found for: SCRA1C Lab Results Component Value Date CHOL 76 04/19/2025 CHOL 81 08/25/2024 CHOL 103 02/06/2024 POCCHOL <100 03/20/2023 POCCHOL <100 12/04/2021 Lab Results Component Value Date HDL 36 (L) 04/19/2025 HDL 33 (L) 08/25/2024 HDL 43 02/06/2024 POCHDL 45 03/20/2023 POCHDL 33 12/04/2021 POCHDL 37 06/04/2021 Lab Results Component Value Date LDLCALC 25 04/19/2025 LDLCALC 34 08/25/2024 LDLCALC 39 02/06/2024 POCLDL n/a 06/04/2021 Lab Results Component Value Date TRIG 69 04/19/2025 TRIG 61 08/25/2024 TRIG 104 02/06/2024 POCTRIG 100 03/20/2023 POCTRIG 72 12/04/2021 POCTRIG 62 06/04/2021 Lab Results Component Value Date POCCHDLR n/a 06/04/2021 Lab Results Component Value Date POCNONHDL n/a 06/04/2021 Lab Results Component Value Date POCCHLPL <100 06/04/2021 Assessment & Plan (04/19/2025 1:09 PM CDT): Delayed wound healing at site of left great toenail removal. Status post vancomycin and cefepime. DEREK unobtainable due to incompressible vessels Plan for angiogram th week Will add on A1c and lipids No results found for: HGBA1C No results found for: SCRA1C Lab Results Component Value Date CHOL 81 08/25/2024 CHOL 103 02/06/2024 CHOL 98 (L) 04/13/2020 POCCHOL <100 03/20/2023 POCCHOL <100 12/04/2021 Lab Results Component Value Date HDL 33 (L) 08/25/2024 HDL 43 02/06/2024 HDL 34 (L) 04/13/2020 POCHDL 45 03/20/2023 POCHDL 33 12/04/2021 POCHDL 37 06/04/2021 Lab Results Component Value Date LDLCALC 34 08/25/2024 LDLCALC 39 02/06/2024 LDLCALC 42 04/13/2020 POCLDL n/a 06/04/2021 Lab Results Component Value Date TRIG 61 08/25/2024 TRIG 104 02/06/2024 TRIG 111 04/13/2020 POCTRIG 100 03/20/2023 POCTRIG 72 12/04/2021 POCTRIG 62 06/04/2021 Lab Results Component Value Date POCCHDLR n/a 06/04/2021 Lab Results Component Value Date POCNONHDL n/a 06/04/2021 Lab Results Component Value Date POCCHLPL <100 06/04/2021 Assessment & Plan (04/18/2025 2:44 PM CDT): Delayed wound healing at site of left great toenail removal. Status post vancomycin and cefepime. D/w vascular surgery, plan for angiogram this week. Continue home cilostazol 100 mg nightly. Continue aspirin/statin Assessment & Plan (04/17/2025 9:07 AM CDT): Delayed wound healing at site of left great toenail removal. Follow-up DEREK. Status post vancomycin and cefepime. Continue home cilostazol 100 mg nightly. Continue aspirin and Lipitor as below. Assessment & Plan (04/16/2025 9:57 AM CDT): Delayed wound healing at site of left great toenail removal. Discussed with Dr. Hernandez. DEREK pending. Status post vancomycin and cefepime. Continue home cilostazol 100 mg nightly. Continue aspirin and Lipitor as below. Assessment & Plan (04/15/2025 8:26 PM CDT): Delayed wound healing at site of left great toenail removal. Discussed with Dr. Hernandez. DEREK pending. I do not see compelling evidence of cellulitis. Does not meet criteria for sepsis on arrival or at [place] based on review of those records. Stop vancomycin and cefepime. Continue home cilostazol 100 mg nightly. Continue aspirin and Lipitor as below. Stage 4 chronic kidney disease 04/15/2025 Assessment & Plan (08/08/2025 4:27 PM SPECIALTY DEVELOPMENT CONSULTANT): Patient has established with Nephrology. Discussed pt's Lasix that was dc'd and likely the reason why d/t hypotension in the office. Recheck labs today given pt's symptoms and see if water retention occurring. May need to restart the Lasix at low dose. Discussed Metoprolol parameters with patient and his , BP fine in office today. Assessment & Plan (06/06/2025 1:24 PM CDT): Has slightly worsened from hospital. Referral placed last week for Nephrology consult, information provided. Assessment & Plan (04/24/2025 12:59 PM CDT): Renal following Scr stable Lab Results Component Value Date GLUCOSE 93 04/24/2025 CALCIUM 8.3 (L) 04/24/2025 SODIUM 139 04/24/2025 POTASSIUM 3.7 04/24/2025 CO2 24 04/24/2025 CHLORIDE 104 04/24/2025 BUNSER 24 04/24/2025 CREATININE 2.12 (H) 04/24/2025 Assessment & Plan (04/23/2025 2:40 PM CDT): Renal following Scr stable Assessment & Plan (04/22/2025 12:33 PM CDT): Renal following Scr stable Assessment & Plan (04/21/2025 2:48 PM CDT): Renal following Scr stable Assessment & Plan (04/20/2025 2:44 PM CDT): Renal following Scr stable Assessment & Plan (04/19/2025 1:09 PM CDT): Renal following Scr stable Assessment & Plan (04/18/2025 2:44 PM CDT): Suspect stage 4 CKD from hypertension. Baseline creatinine appears to be around 2.3 Creatinine was as high as 2.81 at [facility]. Suspect renal insufficiency on arrival to [facility] that subsequently improved Creatinine 2.28 on labs 04/15 which appears near his baseline Lasix held Consult nephro for renal optimization Assessment & Plan (04/17/2025 9:07 AM CDT): Suspect stage 4 CKD from hypertension. Baseline creatinine appears to be around 2.3 Creatinine was as high as 2.81 at [facility]. Suspect renal insufficiency on arrival to [facility] that subsequently improved Creatinine 2.28 on labs 04/15 which appears near his baseline Hold Lasix. Check BMP now and daily Assessment & Plan (04/16/2025 9:57 AM CDT): Suspect stage 4 CKD from hypertension. Baseline creatinine appears to be around 2.3 Creatinine was as high as 2.81 at [facility]. Suspect renal insufficiency on arrival to [facility] that subsequently improved Creatinine 2.28 on labs 04/15 which appears near his baseline Hold Lasix Assessment & Plan (04/15/2025 8:27 PM CDT): Suspect stage 4 CKD from hypertension. Baseline creatinine appears to be around 2.3 Creatinine was as high as 2.81 at [facility]. Suspect renal insufficiency on arrival to [facility] that subsequently improved Creatinine 2.28 on labs 04/15 which appears near his baseline Avoid nephrotoxic medications Continue home Lasix 40 mg daily Nonrheumatic mitral valve regurgitation 09/08/20 24 B12 deficiency 02/06/2024 KAYLA (generalized anxiety disorder) 02/06/2024 Assessment & Plan (04/24/2025 12:59 PM CDT): Continue home Lexapro 20 mg daily Assessment & Plan (04/23/2025 2:40 PM CDT): Continue home Lexapro 20 mg daily Assessment & Plan (04/22/2025 12:33 PM CDT): Continue home Lexapro 20 mg daily Assessment & Plan (04/21/2025 2:48 PM CDT): Continue home Lexapro 20 mg daily Assessment & Plan (04/20/2025 2:44 PM CDT): Continue home Lexapro 20 mg daily Assessment & Plan (04/19/2025 1:09 PM CDT): Continue home Lexapro 20 mg daily Assessment & Plan (04/18/2025 2:44 PM CDT): Continue home Lexapro 20 mg daily Assessment & Plan (04/17/2025 9:07 AM CDT): Continue home Lexapro 20 mg daily Assessment & Plan (04/16/2025 9:57 AM CDT): Continue home Lexapro 20 mg daily Assessment & Plan (04/15/2025 8:26 PM CDT): Continue home Lexapro 20 mg daily Assessment & Plan (02/06/2024 4:58 PM CDT): Chronic. Stable. Continue Lexapro. Monitor Hx of CABG 11/27/2023 Assessment & Plan (04/24/2025 12:59 PM CDT): Continue home aspirin 81 mg daily, Lipitor 10 mg nightly Assessment & Plan (04/23/2025 2:40 PM CDT): Continue home aspirin 81 mg daily, Lipitor 10 mg nightly Assessment & Plan (04/22/2025 12:33 PM CDT): Continue home aspirin 81 mg daily, Lipitor 10 mg nightly Assessment & Plan (04/21/2025 2:48 PM CDT): Continue home aspirin 81 mg daily, Lipitor 10 mg nightly Assessment & Plan (04/20/2025 2:44 PM CDT): Continue home aspirin 81 mg daily, Lipitor 10 mg nightly Assessment & Plan (04/19/2025 1:09 PM CDT): Continue home aspirin 81 mg daily, Lipitor 10 mg nightly Assessment & Plan (04/18/2025 2:44 PM CDT): Continue home aspirin 81 mg daily, Lipitor 10 mg nightly Assessment & Plan (04/17/2025 9:07 AM CDT): Continue home aspirin 81 mg daily, Lipitor 10 mg nightly Assessment & Plan (04/16/2025 9:57 AM CDT): Continue home aspirin 81 mg daily, Lipitor 10 mg nightly Assessment & Plan (04/15/2025 8:26 PM CDT): Continue home aspirin 81 mg daily, Lipitor 10 mg nightly History of amputation of lesser toe of left foot 07/03/2023 Assessment & Plan (02/06/2024 4:55 PM CDT): Chronic. Denies any new wounds on his feet. Continue risk factor modification Assessment & Plan (10/03/2023 1:12 PM SPECIALTY DEVELOPMENT CONSULTANT): Chronic. Due to prior peripheral arterial disease. Denies current foot sores. Follows with DPM Assessment & Plan (07/03/2023 5:20 PM CDT): Prior 4th toe amputation on the left foot. Site of amputation is intact without signs of skin breakdown. Continue risk factor modification for peripheral arterial disease. Follows with Podiatry Urinary retention 07/03/2023 Assessment & Plan (06/06/2025 1:20 PM CDT): Patient continuing to follow with Urology. Requiring straight catheterization. Assessment & Plan (04/24/2025 12:59 PM CDT): Requiring straight catheterization chronically Collateral from 04/19: saw a Urologist at [facility] 2022 and was told her prostate is actually not enlarged and not causing his urinary issues. Having difficulty with passing ISC and RN performed it last night- 3L removed [place]za placed 04/23- likely has local trauma from isc insertions with edema and making repeated insertions difficult Assessment & Plan (04/23/2025 2:40 PM CDT): Requiring straight catheterization chronically Collateral from 04/19: saw a Urologist at [facility] 2022 and was told her prostate is actually not enlarged and not causing his urinary issues. Having difficulty with passing ISC and RN performed it last night- 3L removed Will place de la garza for a few days- likely has local trauma from isc insertions with edema and making repeated insertions difficult Assessment & Plan (04/22/2025 12:33 PM CDT): Requiring straight catheterization chronically Collateral from 04/19: saw a Urologist at [facility] 2022 and was told her prostate is actually not enlarged and not causing his urinary issues. I did not see any urology notes from [facility] in our system Cont [facility] Assessment & Plan (04/21/2025 2:48 PM CDT): Requiring straight catheterization chronically Collateral from 04/19: saw a Urologist at [facility] 2022 and was told her prostate is actually not enlarged and not causing his urinary issues. I did not see any urology notes from [facility] in our system Cont [facility]SC [facility] Assessment & Plan (04/20/2025 2:44 PM CDT): Requiring straight catheterization chronically Collateral from 04/19: saw a Urologist at [facility] 2022 and was told her prostate is actually not enlarged and not causing his urinary issues. I did not see any urology notes from [facility] in our system Cont [facility]SC [facility] Assessment & Plan (04/19/2025 1:09 PM CDT): Requiring straight catheterization chronically Collateral from 04/19: saw a Urologist at [facility] 2022 and was told her prostate is actually not enlarged and not causing his urinary issues. I did not see any urology notes from [facility] in our system Cont ISC [facility] Dw Assessment & Plan (04/18/2025 2:44 PM CDT): Requiring straight catheterization. Suspect abnormal urinalysis from [facility] from chronic pyuria and colonization from intermittent straight catheterization. White blood cell count was normal. Specimen was contaminated with squamous epithelial cells. Straight cath t.i.d. and as needed. Bladder scan if unable to void. He does better with rigid plastic catheters which his has brought from home. Assessment & Plan (04/17/2025 9:07 AM CDT): Requiring straight catheterization. Suspect abnormal urinalysis from [facility] from chronic pyuria and colonization from intermittent straight catheterization. White blood cell count was normal. Specimen was contaminated with squamous epithelial cells. Straight cath t.i.d. and as needed. Bladder scan if unable to void. He does better with rigid plastic catheters which his has brought from home. Assessment & Plan (04/16/2025 9:57 AM CDT): Requiring straight catheterization. Suspect abnormal urinalysis from [facility] from chronic pyuria and colonization from intermittent straight catheterization. White blood cell count was normal. Specimen was contaminated with squamous epithelial cells. Straight cath t.i.d. and as needed. Bladder scan if unable to void. He does better with rigid plastic catheters which his has brought from home. Assessment & Plan (04/15/2025 8:26 PM CDT): Requiring straight catheterization. Suspect abnormal urinalysis from [facility] from chronic pyuria and colonization from intermittent straight catheterization. White blood cell count was normal. Specimen was contaminated with squamous epithelial cells. Stop antibiotics. Straight cath t.i.d. and as needed. Bladder scan if unable to void. He does better with rigid plastic catheters which his has brought from home. Assessment & Plan (02/06/2024 4:55 PM CDT): Chronic. Symptoms have been stable. He will remain on finasteride. Does intermittent straight catheterization. He will continue to see his urologist Assessment & Plan (10/03/2023 1:12 PM SPECIALTY DEVELOPMENT CONSULTANT): Chronic. Continue medication care per Urology Assessment & Plan (07/03/2023 5:22 PM CDT): Follows with [facility] Dr. Butterfield. Patient on finasteride and does intermittent straight catheterization Severe malnutrition 07/03/2023 Overview (07/03/2023): Patient with low BMI. Less protein level was low. Monitor weight Assessment & Plan (02/06/2024 4:55 PM CDT): Patient has had borderline protein calorie malnutrition. Monitor his protein levels on labs. Encourage adequate nutrition. Avoid additional weight loss Assessment & Plan (10/03/2023 1:12 PM SPECIALTY DEVELOPMENT CONSULTANT): Chronic. BMI remains at the lower end arrange. Encouraged adequate nutrition. Monitor History of gout 07/03/2023 Assessment & Plan (02/06/2024 4:55 PM CDT): Chronic. Denies history of recent flares. Continue allopurinol for prophylaxis. Check uric acid Assessment & Plan (10/03/2023 1:12 PM SPECIALTY DEVELOPMENT CONSULTANT): Chronic. Denies any history of gout in several years. Continue allopurinol for prophylaxis Assessment & Plan (07/03/2023 5:25 PM CDT): Chronic. On allopurinol for suppression. Continue. Denies recent flares Onychomycosis 07/03/2023 Assessment & Plan (04/24/2025 12:59 PM CDT): Delayed wound healing at site of left great toenail removal. Status post vancomycin and cefepime. DEREK unobtainable due to incompressible vessels Dw vascular- vascular note reviewed, plan for angio 04/25 Npo @ [place] Assessment & Plan (04/23/2025 2:40 PM CDT): Delayed wound healing at site of left great toenail removal. Status post vancomycin and cefepime. DEREK unobtainable due to incompressible vessels Dw vascular- angiogram week of 04/25 Assessment & Plan (04/22/2025 12:33 PM CDT): Delayed wound healing at site of left great toenail removal. Status post vancomycin and cefepime. DEREK unobtainable due to incompressible vessels Dw vascular- will reassess for timing of angiogram Assessment & Plan (04/21/2025 2:48 PM CDT): Delayed wound healing at site of left great toenail removal. Status post vancomycin and cefepime. DEREK unobtainable due to incompressible vessels Dw vascular- delay angiogram until sepsis and a fib controlled Assessment & Plan (04/20/2025 2:44 PM CDT): Delayed wound healing at site of left great toenail removal. Status post vancomycin and cefepime. DEREK unobtainable due to incompressible vessels Plan for angiogram thsi week Labs rev Lab Results Component Value Date HGBA1C 4.9 04/16/2025 No results found for: SCRA1C Lab Results Component Value Date CHOL 76 04/19/2025 CHOL 81 08/25/2024 CHOL 103 02/06/2024 POCCHOL <100 03/20/2023 POCCHOL <100 12/04/2021 Lab Results Component Value Date HDL 36 (L) 04/19/2025 HDL 33 (L) 08/25/2024 HDL 43 02/06/2024 POCHDL 45 03/20/2023 POCHDL 33 12/04/2021 POCHDL 37 06/04/2021 Lab Results Component Value Date LDLCALC 25 04/19/2025 LDLCALC 34 08/25/2024 LDLCALC 39 02/06/2024 POCLDL n/a 06/04/2021 Lab Results Component Value Date TRIG 69 04/19/2025 TRIG 61 08/25/2024 TRIG 104 02/06/2024 POCTRIG 100 03/20/2023 POCTRIG 72 12/04/2021 POCTRIG 62 06/04/2021 Lab Results Component Value Date POCCHDLR n/a 06/04/2021 Lab Results Component Value Date POCNONHDL n/a 06/04/2021 Lab Results Component Value Date POCCHLPL <100 06/04/2021 Assessment & Plan (04/19/2025 1:09 PM CDT): Delayed wound healing at site of left great toenail removal. Status post vancomycin and cefepime. DEREK unobtainable due to incompressible vessels Plan for angiogram thsi week Will add on A1c and lipids No results found for: HGBA1C No results found for: SCRA1C Lab Results Component Value Date CHOL 81 08/25/2024 CHOL 103 02/06/2024 CHOL 98 (L) 04/13/2020 POCCHOL <100 03/20/2023 POCCHOL <100 12/04/2021 Lab Results Component Value Date HDL 33 (L) 08/25/2024 HDL 43 02/06/2024 HDL 34 (L) 04/13/2020 POCHDL 45 03/20/2023 POCHDL 33 12/04/2021 POCHDL 37 06/04/2021 Lab Results Component Value Date LDLCALC 34 08/25/2024 LDLCALC 39 02/06/2024 LDLCALC 42 04/13/2020 POCLDL n/a 06/04/2021 Lab Results Component Value Date TRIG 61 08/25/2024 TRIG 104 02/06/2024 TRIG 111 04/13/2020 POCTRIG 100 03/20/2023 POCTRIG 72 12/04/2021 POCTRIG 62 06/04/2021 Lab Results Component Value Date POCCHDLR n/a 06/04/2021 Lab Results Component Value Date POCNONHDL n/a 06/04/2021 Lab Results Component Value Date POCCHLPL <100 06/04/2021 Assessment & Plan (04/18/2025 2:44 PM CDT): Delayed wound healing at site of left great toenail removal. Status post vancomycin and cefepime. D/w vascular surgery, plan for angiogram this week. Continue home cilostazol 100 mg nightly. Continue aspirin/statin Assessment & Plan (04/17/2025 9:07 AM CDT): Delayed wound healing at site of left great toenail removal. Follow-up DEREK. Status post vancomycin and cefepime. Continue home cilostazol 100 mg nightly. Continue aspirin and Lipitor as below. Assessment & Plan (04/16/2025 9:57 AM CDT): Delayed wound healing at site of left great toenail removal. Discussed with Dr. Hernandez. DEREK pending. Status post vancomycin and cefepime. Continue home cilostazol 100 mg nightly. Continue aspirin and Lipitor as below. Assessment & Plan (04/15/2025 8:26 PM CDT): Delayed wound healing at site of left great toenail removal. Discussed with Dr. Hernandez. DEREK pending. I do not see compelling evidence of cellulitis. Does not meet criteria for sepsis on arrival or at [place] based on review of those records. Stop vancomycin and cefepime. Continue home cilostazol 100 mg nightly. Continue aspirin and Lipitor as below. Assessment & Plan (07/03/2023 5:26 PM CDT): Moderate. Follows with Podiatry. 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 May occasionally increase in size. Minimal pain. Has deferred elective repair in the past Persistent atrial fibrillation 12/04/2021 Assessment & Plan (06/06/2025 1:24 PM CDT): Asymptomatic in office, rate controlled. Assessment & Plan (04/24/2025 12:59 PM CDT): no AC given repeated GI bleeding Cont lopressor to 75 mg q8H Will need to consolidate bb Hold lasix for now Cmu rev TTE 02/13 Lab Results Component Value Date TSH 3.06 04/21/2025 Crohn's disease now with diarrhea. C diff negative. Will monitor Seizure disorder Continue Keppra Non anion gap metabolic acidosis Normocytic anemia Lab Results Component Value Date WBC 7.61 04/24/2025 HGB 9.1 (L) 04/24/2025 HCT 28.3 (L) 04/24/2025 MCV 97.6 (H) 04/24/2025 LABPLAT 179 04/24/2025 Lab Results Component Value Date FERRITIN 407 (H) 04/20/2025 TSAT 8, received iron IV x1 on 04/21 Lab Results Component Value Date VITB12 692 04/20/2025 Lab Results Component Value Date FOLATE 24.1 04/20/2025 Assessment & Plan (04/23/2025 2:40 PM CDT): no AC given repeated GI bleeding Change lopressor to 75 mg q8H Hold lasix for now Cmu rev TTE 02/13 Lab Results Component Value Date TSH 3.06 04/21/2025 Crohn's disease now with diarrhea. C diff negative. Will monitor Seizure disorder Continue Keppra Non anion gap metabolic acidosis Normocytic anemia Lab Results Component Value Date WBC 8.16 04/23/2025 HGB 9.2 (L) 04/23/2025 HCT 28.2 (L) 04/23/2025 MCV 99.3 (H) 04/23/2025 LABPLAT 158 04/23/2025 Lab Results Component Value Date FERRITIN 407 (H) 04/20/2025 TSAT 8, received iron IV x1 on 04/21 Lab Results Component Value Date VITB12 692 04/20/2025 Lab Results Component Value Date FOLATE 24.1 04/20/2025 Assessment & Plan (04/22/2025 12:33 PM CDT): Collateral from : no AC given repeated GI bleeding Dc dilt gtt Change lopressor to 50 mg q8H He has wet crackles now and JVP Lasix 80 IV x1 Cmu rev= a fib rate 90-100 TTE 02/13 reviewed Lab Results Component Value Date TSH 3.06 04/21/2025 Crohn's disease now with diarrhea. C diff negative. Will monitor Seizure disorder Continue Keppra Non anion gap metabolic acidosis Normocytic anemia Lab Results Component Value Date WBC 16.09 (H) 04/21/2025 HGB 10.3 (L) 04/21/2025 HCT 32.0 (L) 04/21/2025 MCV 99.1 (H) 04/21/2025 LABPLAT 130 (L) 04/21/2025 Lab Results Component Value Date FERRITIN 407 (H) 04/20/2025 TSAT 8, received iron IV x1 on 04/21 Lab Results Component Value Date VITB12 692 04/20/2025 Lab Results Component Value Date FOLATE 24.1 04/20/2025 Assessment & Plan (04/21/2025 2:48 PM CDT): Collateral from : no AC given repeated GI bleeding Start dilt gtt Monitor Change lopressor to 50 mg q8h, consolidate after stablized EKG rev/int= a fib rvr TTE 02/13 reviewed Lab Results Component Value Date TSH 3.06 04/21/2025 Crohn's disease now with diarrhea. C diff negative. Will monitor Seizure disorder Continue Keppra Non anion gap metabolic acidosis Normocytic anemia Lab Results Component Value Date WBC 16.09 (H) 04/21/2025 HGB 10.3 (L) 04/21/2025 HCT 32.0 (L) 04/21/2025 MCV 99.1 (H) 04/21/2025 LABPLAT 130 (L) 04/21/2025 Lab Results Component Value Date FERRITIN 407 (H) 04/20/2025 TSAT 8, received iron IV x1 on 04/21 Lab Results Component Value Date VITB12 692 04/20/2025 Lab Results Component Value Date FOLATE 24.1 04/20/2025 Assessment & Plan (04/20/2025 2:44 PM CDT): Not a candidate for anticoagulation reportedly due to recurrent GI bleeding Changed lopressor to 75 mg BID (was ordered 75 mg nightly) Crohn's disease now with diarrhea. C diff negative. Will monitor Seizure disorder Continue Keppra Non anion gap metabolic acidosis Normocytic anemia Will recheck iron studs, b12 folate Lab Results Component Value Date WBC 7.78 04/16/2025 HGB 10.0 (L) 04/16/2025 HCT 30.9 (L) 04/16/2025 MCV 95.7 04/16/2025 LABPLAT 153 04/16/2025 Lab Results Component Value Date FERRITIN 594 (H) 08/25/2024 Lab Results Component Value Date VITB12 940 08/25/2024 Lab Results Component Value Date FOLATE >20.0 01/31/2021 Assessment & Plan (04/19/2025 1:09 PM CDT): Not a candidate for anticoagulation reportedly due to recurrent GI bleeding Changed lopressor to 50 mg BID (was ordered 75 mg nightly) Crohn's disease now with diarrhea. C diff negative. Will monitor Seizure disorder Continue Keppra Non anion gap metabolic acidosis Normocytic anemia Urinary retention requiring straight catheterization 4 times daily He lives at home with his . He can care for his ADLs. He does not use an assistive device. Assessment & Plan (04/18/2025 2:44 PM CDT): Not a candidate for anticoagulation reportedly due to recurrent GI bleeding Continue home metoprolol tartrate 75 mg nightly Crohn's disease now with diarrhea. C diff negative. Seizure disorder Continue Keppra Non anion gap metabolic acidosis Normocytic anemia Urinary retention requiring straight catheterization 4 times daily He lives at home with his . He can care for his ADLs. He does not use an assistive device. Assessment & Plan (04/17/2025 12:15 PM CDT): Not a candidate for anticoagulation reportedly due to recurrent GI bleeding Continue home metoprolol tartrate 75 mg nightly Crohn's disease now with diarrhea. C diff negative. Seizure disorder Continue Keppra Non anion gap metabolic acidosis Normocytic anemia Urinary retention requiring straight catheterization 4 times daily He lives at home with his . He can care for his ADLs. He does not use an assistive device. Assessment & Plan (04/16/2025 2:18 PM CDT): Not a candidate for anticoagulation reportedly due to recurrent GI bleeding Continue home metoprolol tartrate 75 mg nightly Crohn's disease Seizure disorder Continue Keppra Non anion gap metabolic acidosis Normocytic anemia Urinary retention requiring straight catheterization 4 times daily He lives at home with his . He can care for his ADLs. He does not use an assistive device. Assessment & Plan (04/15/2025 8:26 PM CDT): Not a candidate for anticoagulation reportedly due to recurrent GI bleeding Continue home metoprolol tartrate 75 mg nightly Assessment & Plan (11/23/2024 1:36 PM SPECIALTY DEVELOPMENT CONSULTANT): Rate controlled in office, continuing follow up with Cardiology. Assessment & Plan (03/01/2024 7:51 AM CDT): Stable continue metoprolol. Assessment & Plan (02/06/2024 4:55 PM CDT): Chronic. Controlled rate with metoprolol. Continue. Continue aspirin for stroke prophylaxis Assessment & Plan (10/03/2023 1:12 PM SPECIALTY DEVELOPMENT CONSULTANT): Chronic. Continue risk factor modification. Continue ASA [...] dementia with mood disturbance Assessment & Plan (04/24/2025 12:59 PM CDT): Continue Aricept 5 mg daily Reduced dose of Namenda from 10 mg b.i.d. to 5 mg daily with current renal function Assessment & Plan (04/23/2025 2:40 PM CDT): Continue Aricept 5 mg daily Reduced dose of Namenda from 10 mg b.i.d. to 5 mg daily with current renal function Assessment & Plan (04/22/2025 12:33 PM CDT): Continue Aricept 5 mg daily Reduced dose of Namenda from 10 mg b.i.d. to 5 mg daily with current renal function Assessment & Plan (04/21/2025 2:48 PM CDT): Continue Aricept 5 mg daily Reduced dose of Namenda from 10 mg b.i.d. to 5 mg daily with current renal function Assessment & Plan (04/20/2025 2:44 PM CDT): Continue Aricept 5 mg daily Reduced dose of Namenda from 10 mg b.i.d. to 5 mg daily with current renal function Assessment & Plan (04/19/2025 1:09 PM CDT): Continue Aricept 5 mg daily Reduce dose of Namenda from 10 mg b.i.d. to 5 mg daily with current renal function Assessment & Plan (04/18/2025 2:44 PM CDT): Continue Aricept 5 mg daily Reduce dose of Namenda from 10 mg b.i.d. to 5 mg daily with current renal function Assessment & Plan (04/17/2025 9:07 AM CDT): Continue Aricept 5 mg daily Reduce dose of Namenda from 10 mg b.i.d. to 5 mg daily with current renal function Assessment & Plan (04/16/2025 9:57 AM CDT): Continue Aricept 5 mg daily Reduce dose of Namenda from 10 mg b.i.d. to 5 mg daily with current renal function Assessment & Plan (04/15/2025 8:26 PM CDT): Continue Aricept 5 mg daily Reduce dose of Namenda from 10 mg b.i.d. to 5 mg daily with current renal function Assessment & Plan (02/06/2024 4:53 PM CDT): Chronic. Memory waxes and wanes but mainly consistent with significant dementia. Encouraged healthy diet and lifestyle modification to help with the memory. Monitor Assessment & Plan (10/03/2023 1:11 PM SPECIALTY DEVELOPMENT CONSULTANT): Chronic. Denies significant worsening. No agitation recently. [...] They denies significant agitation Cerebral amyloid angiopathy ([facility]) 02/15/2020 Assessment & Plan (02/06/2024 4:54 PM CDT): Chronic. Memory has worsened slightly in the last year. He does have some fluctuations at times. No real agitation. Target good blood pressure control. Continue aspirin for his other issues. Would be cautious with more aggressive anticoagulation given history of amyloid angiopathy Assessment & Plan (10/03/2023 1:11 PM SPECIALTY DEVELOPMENT CONSULTANT): Chronic. Denies any progression of symptoms Assessment & Plan (07/03/2023 5:18 PM CDT): Chronic. Control blood pressure and modify risk factors as able. Continue aspirin given AFib but would be cautious with stronger anticoagulants given increased bleeding risk with cerebral amyloid angiopathy Peripheral artery disease 09/10/2019 Overview (09/10/2019): Added automatically from request for surgery [id number] Assessment & Plan (04/24/2025 12:59 PM CDT): Delayed wound healing at site of left great toenail removal. Status post vancomycin and cefepime. DEREK unobtainable due to incompressible vessels Dw vascular- vascular note reviewed, plan for angio 04/25 Npo @ [place] Assessment & Plan (04/23/2025 2:40 PM CDT): Delayed wound healing at site of left great toenail removal. Status post vancomycin and cefepime. DEREK unobtainable due to incompressible vessels Dw vascular- angiogram week of 04/25 Assessment & Plan (04/22/2025 12:33 PM CDT): Delayed wound healing at site of left great toenail removal. Status post vancomycin and cefepime. DEREK unobtainable due to incompressible vessels Dw vascular- will reassess for timing of angiogram Assessment & Plan (04/21/2025 2:48 PM CDT): Delayed wound healing at site of left great toenail removal. Status post vancomycin and cefepime. DEREK unobtainable due to incompressible vessels Dw vascular- delay angiogram until sepsis and a fib controlled Assessment & Plan (04/20/2025 2:44 PM CDT): Delayed wound healing at site of left great toenail removal. Status post vancomycin and cefepime. DEREK unobtainable due to incompressible vessels Plan for angiogram thsi week Labs rev Lab Results Component Value Date HGBA1C 4.9 04/16/2025 No results found for: SCRA1C Lab Results Component Value Date CHOL 76 04/19/2025 CHOL 81 08/25/2024 CHOL 103 02/06/2024 POCCHOL <100 03/20/2023 POCCHOL <100 12/04/2021 Lab Results Component Value Date HDL 36 (L) 04/19/2025 HDL 33 (L) 08/25/2024 HDL 43 02/06/2024 POCHDL 45 03/20/2023 POCHDL 33 12/04/2021 POCHDL 37 06/04/2021 Lab Results Component Value Date LDLCALC 25 04/19/2025 LDLCALC 34 08/25/2024 LDLCALC 39 02/06/2024 POCLDL n/a 06/04/2021 Lab Results Component Value Date TRIG 69 04/19/2025 TRIG 61 08/25/2024 TRIG 104 02/06/2024 POCTRIG 100 03/20/2023 POCTRIG 72 12/04/2021 POCTRIG 62 06/04/2021 Lab Results Component Value Date POCCHDLR n/a 06/04/2021 Lab Results Component Value Date POCNONHDL n/a 06/04/2021 Lab Results Component Value Date POCCHLPL <100 06/04/2021 Assessment & Plan (04/19/2025 1:09 PM CDT): Delayed wound healing at site of left great toenail removal. Status post vancomycin and cefepime. DEREK unobtainable due to incompressible vessels Plan for angiogram thsi week Will add on A1c and lipids No results found for: HGBA1C No results found for: SCRA1C Lab Results Component Value Date CHOL 81 08/25/2024 CHOL 103 02/06/2024 CHOL 98 (L) 04/13/2020 POCCHOL <100 03/20/2023 POCCHOL <100 12/04/2021 Lab Results Component Value Date HDL 33 (L) 08/25/2024 HDL 43 02/06/2024 HDL 34 (L) 04/13/2020 POCHDL 45 03/20/2023 POCHDL 33 12/04/2021 POCHDL 37 06/04/2021 Lab Results Component Value Date LDLCALC 34 08/25/2024 LDLCALC 39 02/06/2024 LDLCALC 42 04/13/2020 POCLDL n/a 06/04/2021 Lab Results Component Value Date TRIG 61 08/25/2024 TRIG 104 02/06/2024 TRIG 111 04/13/2020 POCTRIG 100 03/20/2023 POCTRIG 72 12/04/2021 POCTRIG 62 06/04/2021 Lab Results Component Value Date POCCHDLR n/a 06/04/2021 Lab Results Component Value Date POCNONHDL n/a 06/04/2021 Lab Results Component Value Date POCCHLPL <100 06/04/2021 Assessment & Plan (04/18/2025 2:44 PM CDT): Delayed wound healing at site of left great toenail removal. Status post vancomycin and cefepime. D/w vascular surgery, plan for angiogram this week. Continue home cilostazol 100 mg nightly. Continue aspirin/statin Assessment & Plan (04/17/2025 9:07 AM CDT): Delayed wound healing at site of left great toenail removal. Follow-up DEREK. Status post vancomycin and cefepime. Continue home cilostazol 100 mg nightly. Continue aspirin and Lipitor as below. Assessment & Plan (04/16/2025 9:57 AM CDT): Delayed wound healing at site of left great toenail removal. Discussed with Dr. Hernandez. DEREK pending. Status post vancomycin and cefepime. Continue home cilostazol 100 mg nightly. Continue aspirin and Lipitor as below. Assessment & Plan (04/15/2025 8:26 PM CDT): Delayed wound healing at site of left great toenail removal. Discussed with Dr. Hernandez. DEREK pending. I do not see compelling evidence of cellulitis. Does not meet criteria for sepsis on arrival or at [place] based on review of those records. Stop vancomycin and cefepime. Continue home cilostazol 100 mg nightly. Continue aspirin and Lipitor as below. Assessment & Plan (09/03/2024 10:57 AM SPECIALTY DEVELOPMENT CONSULTANT): Stable lower extremity occlusive disease. Continue risk [...] duplex. Assessment & Plan (10/03/2023 1:11 PM SPECIALTY DEVELOPMENT CONSULTANT): Chronic. Denies recent claudication symptoms. Continue ASA, statin and Pletal Assessment & Plan (07/03/2023 5:22 PM CDT): Chronic. 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 Denies current sores on his feet. Follows with Podiatry in [place]. On cilostazol Iron deficiency anemia due to [...] 02/17/2019 Assessment & Plan (11/23/2024 1:35 PM SPECIALTY DEVELOPMENT CONSULTANT): BP normal in office, continuing current regimen. [...] dehydrate Assessment & Plan (10/03/2023 1:10 PM SPECIALTY DEVELOPMENT CONSULTANT): Chronic. Blood pressure controlled. Continue current prescription [...] (01/26/2019): Added automatically from request for surgery [id number] Assessment & Plan (02/06/2024 4:52 PM CDT): Chronic. Disease has been stable. Minimal symptoms. He does have to be cautious with eating too many fruits and vegetables as he notes this does cause some GI distress. He remains controlled with Skyrezi and hydroxychloroquine. He will continue Assessment & Plan (10/03/2023 1:10 PM SPECIALTY DEVELOPMENT CONSULTANT): Chronic. Symptomatically improved per patient. Continue medication and care per GI Assessment & Plan (07/03/2023 5:20 PM CDT): Chronic. Follows with Gastroenterology. On scar oz and sulfasalazine. Continue medication and care per them Coronary artery disease invo lving nome coronary artery of nome heart without angina pectoris 12/04/2018 Assessment & Plan (04/24/2025 12:59 PM CDT): Continue home aspirin 81 mg daily, Lipitor 10 mg nightly Assessment & Plan (04/23/2025 2:40 PM CDT): Continue home aspirin 81 mg daily, Lipitor 10 mg nightly Assessment & Plan (04/22/2025 12:33 PM CDT): Continue home aspirin 81 mg daily, Lipitor 10 mg nightly Assessment & Plan (04/21/2025 2:48 PM CDT): Continue home aspirin 81 mg daily, Lipitor 10 mg nightly Assessment & Plan (04/20/2025 2:44 PM CDT): Continue home aspirin 81 mg daily, Lipitor 10 mg nightly Assessment & Plan (04/19/2025 1:09 PM CDT): Continue home aspirin 81 mg daily, Lipitor 10 mg nightly Assessment & Plan (04/18/2025 2:44 PM CDT): Continue home aspirin 81 mg daily, Lipitor 10 mg nightly Assessment & Plan (04/17/2025 9:07 AM CDT): Continue home aspirin 81 mg daily, Lipitor 10 mg nightly Assessment & Plan (04/16/2025 9:57 AM CDT): Continue home aspirin 81 mg daily, Lipitor 10 mg nightly Assessment & Plan (04/15/2025 8:26 PM CDT): Continue home aspirin 81 mg daily, Lipitor 10 mg nightly Assessment & Plan (09/03/2024 10:57 AM SPECIALTY DEVELOPMENT CONSULTANT): Stable continue ASA and Lasix Assessment & Plan (02/06/2024 4:51 PM CDT): Chronic. Denies chest pain. Continue risk factor modification with statin, aspirin, blood pressure control. Target LDL less than 70 Assessment & Plan (10/03/2023 1:10 PM SPECIALTY DEVELOPMENT CONSULTANT): Chronic. Denies chest pain. Follows with cardiology. [...] 12/30/2017 Assessment & Plan (08/25/2024 4:06 PM SPECIALTY DEVELOPMENT CONSULTANT): Updated labs ordered, Hemoglobin was 9 in [...] infusions Assessment & Plan (10/03/2023 1:10 PM SPECIALTY DEVELOPMENT CONSULTANT): Chronic. Follows with GI and Hematology. Has received iron infusions. Often does B12 injections Assessment & Plan (07/03/2023 5:15 PM CDT): Chronic. Follows with GI and Hematology. Received iron infusions Hypercholesterolemia 02/05/2011 Assessment & Plan (04/24/2025 12:59 PM CDT): Continue home aspirin 81 mg daily, Lipitor 10 mg nightly Assessment & Plan (04/23/2025 2:40 PM CDT): Continue home aspirin 81 mg daily, Lipitor 10 mg nightly Assessment & Plan (04/22/2025 12:33 PM CDT): Continue home aspirin 81 mg daily, Lipitor 10 mg nightly Assessment & Plan (04/21/2025 2:48 PM CDT): Continue home aspirin 81 mg daily, Lipitor 10 mg nightly Assessment & Plan (04/20/2025 2:44 PM CDT): Continue home aspirin 81 mg daily, Lipitor 10 mg nightly Assessment & Plan (04/19/2025 1:09 PM CDT): Continue home aspirin 81 mg daily, Lipitor 10 mg nightly Assessment & Plan (04/18/2025 2:44 PM CDT): Continue home aspirin 81 mg daily, Lipitor 10 mg nightly Assessment & Plan (04/17/2025 9:07 AM CDT): Continue home aspirin 81 mg daily, Lipitor 10 mg nightly Assessment & Plan (04/16/2025 9:57 AM CDT): Continue home aspirin 81 mg daily, Lipitor 10 mg nightly Assessment & Plan (04/15/2025 8:26 PM CDT): Continue home aspirin 81 mg daily, Lipitor 10 mg nightly Assessment & Plan (09/03/2024 10:57 AM SPECIALTY DEVELOPMENT CONSULTANT): Stable continue statin therapy. Assessment & Plan (03/01/2024 7:50 AM CDT): Stable continue statin therapy. Assessment & Plan (02/06/2024 4:53 PM CDT): Chronic. Tolerates atorvastatin. Continue. Check cholesterol level and adjust for an LDL goal of at least less than 70 with optimal less than 55 Assessment & Plan (10/03/2023 1:10 PM SPECIALTY DEVELOPMENT CONSULTANT): Chronic. Tolerates current prescription medication. Continue Assessment [...] (05/29/2021): Added automatically from request for surgery [id number] Crohn's disease with rectal bleeding 12/10/2018 07/03/2023 Overview (12/10/2018): Added automatically from request for surgery [id number] Peripheral vascular disease 02/13/2017 07/03/2023 Gastrointestinal hemorrhage 07/03/2023 Acute renal failure 07/03/20 23 Crohn's disease of colon with rectal bleeding 07/03/2023 Assessment & Plan (12/04/2021 1:34 PM CDT): Has upcoming endoscopy. Encounters Date Type Department Care Team Description 08/23/2025 Results Follow-Up [facility] Primary Care at [address] [phone] Preethi Godoy NP Urinalysis reflex to microscopic and culture Urine, in and out catheter, Basic metabolic panel, Pro B-type natriuretic peptide, Additional followed-up results: 2 08/22/2025 1:25 PM SPECIALTY DEVELOPMENT CONSULTANT Lab [address] [address] Recurrent UTI; New onset of congestive heart failure (HCC) 08/17/2025 Results Follow-Up [facility] Physicians [facility] Surgery [address] [place] [phone] Kay Epstein MD Urine culture Urine, bladder 08/15/2025 1:55 PM SPECIALTY DEVELOPMENT CONSULTANT - 08/15/2025 11:59 PM SPECIALTY DEVELOPMENT CONSULTANT Hospital Encounter [facility] [address] [place] [phone] Urinary tract infection with hematuria, site unspecified Discharge Disposition: Discharge to home or self care 08/15/2025 1:20 PM SPECIALTY DEVELOPMENT CONSULTANT Office Visit [facility] Physicians [facility] Surgery [address] [place] [phone] Kay Epstein MD Urinary tract infection with hematuria, site unspecified (Primary Dx); Retention of urine 08/10/2025 3:45 PM SPECIALTY DEVELOPMENT CONSULTANT Clinical Support [facility] Primary Care at [address] [phone] 08/10/2025 1:23 PM SPECIALTY DEVELOPMENT CONSULTANT - 08/10/2025 11:59 PM SPECIALTY DEVELOPMENT CONSULTANT Hospital Encounter [facility] [address] [place] [address] Chronic kidney disease, stage 4 (severe) (HCC) Discharge Disposition: Discharge to home or self care 08/10/2025 10:57 AM SPECIALTY DEVELOPMENT CONSULTANT - 08/10/2025 11:59 PM SPECIALTY DEVELOPMENT CONSULTANT Hospital Encounter [address] [address] New onset of congestive heart failure (HCC) Discharge Disposition: Discharge to home or self care 08/10/2025 Orders Only [facility] Gastroenterology [address] [facility] 12th [place] [address] [place] [phone] Ariel Yun CMA Crohn's disease of both small and large intestine with other complication (Primary Dx) 08/09/2025 Results Follow-Up [facility] Primary Care at [address] [phone] Preethi Godoy NP Urinalysis reflex to microscopic and culture Urine, in and out catheter, Urinalysis, microscopic only, CBC with auto differential, Additional followed-up results: 6 08/08/2025 2:30 PM SPECIALTY DEVELOPMENT CONSULTANT Office Visit [facility] Primary Care at [address] [phone] Preethi Godoy NP New onset of congestive heart failure (HCC) (Primary Dx); Stage 4 chronic kidney disease (HCC) 08/08/2025 10:20 AM SPECIALTY DEVELOPMENT CONSULTANT Lab [address] [address] Recurrent UTI; New onset of congestive heart failure (HCC); Stage 4 chronic kidney disease (HCC) 08/08/2025 Telephone [facility] Primary Care at [address] [phone] Preethi Godoy NP 08/04/2025 Telephone [facility] Primary Care at [address] [phone] Preethi Godoy NP APRIL Questions 07/29/2025 Results Follow-Up [facility] Convenient Care at [address] [phone] Gladys Valdovinos NP Urine culture Urine, clean voided 07/25/2025 11:39 AM SPECIALTY DEVELOPMENT CONSULTANT - 07/25/2025 11:59 PM SPECIALTY DEVELOPMENT CONSULTANT Hospital Encounter [facility] [id number] [place] [address] Confusion; Chills Discharge Disposition: Discharge to home or self care 07/25/2025 9:30 AM SPECIALTY DEVELOPMENT CONSULTANT Office Visit [facility] Con[facility]ient Care at [address] [phone] Sandrita Daugherty NP Cellulitis of upper extremity, unspecified laterality (Primary Dx); Dermatitis; Confusion; Chills 07/06/2025 Documentation [place] [facility] - [facility] Urology [address] [facility] 11[address] [place] [address] [place] [address] Pierce Benavidez MD urodynamics report 07/05/2025 Orders Only [facility] Surgery [address] [place] [phone] Zak Hernandez MD PAD (peripheral artery disease) (Primary Dx) 06/30/2025 Telephone [facility] Gastroenterology [address] [facility] [address] [place] [address] [place] [address] Kay Jett RN Med Management [facility] PAP Approved 06/27/2025 2:21 PM CDT - 06/27/2025 11:59 PM CDT Hospital Encounter [facility] [address] [place] [address] Benign prostatic hyperplasia with lower urinary tract symptoms, symptom details unspecified Discharge Disposition: Discharge to home or self care 06/27/2025 1:45 PM CDT Office Visit [facility] Surgery [address] [place] [phone] Julieth Cortez PA PAD (peripheral artery disease) (Primary Dx); S/P peripheral artery angioplasty 06/27/2025 1:00 PM CDT Ancillary Procedure [facility] Surgery [address] [facility] [address] [place] [phone] Encounter for surgical aftercare following surgery on the circulatory system 06/27/2025 10:00 AM CDT Office Visit [facility] - [facility] Urology [address] [facility] [address] [place] [address] Benign prostatic hyperplasia with lower urinary tract symptoms, symptom details unspecified (Primary Dx); Urinary tract infection with hematuria, site unspecified 06/21/2025 Documentation [facility] Gastroenterology [address] [facility] [address] [place] [address] [place] [address] Jeannine Newman RN Treatment Plan Update (06/20/2025 rov) 06/20/2025 11:00 AM CDT Telemedicine [facility] Gastroenterology [address] [facility] 2nd [address] [place] [address] Ashlee Shipley NP High risk medications (not anticoagulants) long-term use (Primary Dx); Peripheral artery disease; Crohn's disease of both small and large intestine with other complication; Stage 4 chronic kidney disease (HCC) 06/16/2025 9:40 AM CDT Lab [address] [address] Recurrent UTI 06/16/2025 Orders Only [facility] Primary Care at [address] [phone] Preethi Godoy NP 06/16/2025 Results Follow-Up [facility] Primary Care at [address] [phone] Preethi Godoy NP Urinalysis reflex to microscopic and culture Urine, indwelling catheter, Urinalysis, microscopic only, Urine culture Urine, indwelling catheter 06/16/2025 Telephone [facility] Primary Care at [address] [phone] Preethi Godoy NP 06/15/2025 Results Follow-Up [facility] Primary Care at [address] [phone] Preethi Godoy, PLATE EMBOSSER CT Chest WO Contrast 06/09/2025 11:50 AM CDT - 06/09/2025 11:59 PM CDT Hospital Encounter [address] [address] Pulmonary nodule 1 cm or greater in diameter; Abnormal chest CT Discharge Disposition: Discharge to home or self care 06/07/2025 Results Follow-Up [facility] [address] [place] [address] [place] [phone] Basilio Perry, DONALD CT Pelvis WO Contrast 06/06/2025 11:30 AM CDT Office Visit [facility] Primary Care at [address] [phone] Preethi Godoy, DONALD Stage 4 chronic kidney disease (HCC) (Primary Dx); Persistent atrial fibrillation (HCC); Pulmonary nodule 1 cm or greater in diameter; Abnormal chest CT; Acute UTI; Urinary retention; Poison ankur dermatitis from Last 3 Months Immunizations Immunization Administration Dates Next Due Influenza, Quad, Adjuvantate d, Intramuscular 07/05/2022,08/06/2021 Influenza, Quadrivalent, Hig h Dose, Preservative Free, Intrr 07/03/2023,07/17/2020,06/15/2019,07/13 Influenza, Quadrivalent, Spl it, Preservative Free, Intramuscular 07/14/2015 Influenza, Trivalent, Adjuva nted, Intramuscular 07/14/2025,07/29/2024 Influenza, Trivalent, High D ose, Split, Preservative Free, Intramuscular 06/15/2019,08/14/2018,08/14/2018,07/13,07/13/2017,08/06/2016 Influenza, Trivalent, IM (MDV) 07/26/2014,2012 Influenza, Unspecified 06/15/2019,07/13/2017, Pfizer SARS-CoV-2 Monovalent Vaccination (12+ Yrs) PURPLE 12/01/2020,11/09/2020 Pneumococcal Conjugate Pcv20 07/14/2025 Pneumococcal Polysaccharide PPV23 08/25/2014 Tdap 12/26/2021,06/06/2014 ZOSTER LIVE 10/03/2015, 5,1949,08/11 Surgical History Surgery Date Site/Laterality Comments COLECTOMY [...] GI AIR CONTRAST W KUB 11/13/2022 Bilateral ANGIOPLASTY 09/22/2024 - 09/21/2025 Left posterior tibial artery Medical History Medical History Date Comments Crohn's disease (HCC) Arthritis shoulder Hypertension History of transfusion Iron deficiency anemia due to chronic blood loss 09/10/2019 Coronary artery disease PVD (peripheral vascular disease) Kidney stone Colon polyp Hyperlipidemia Seizures (HCC) Atrial fibrillation (HCC) Vascular dementia Gout Chickenpox Family History Medical History Relation [...] former alcoholic, 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 No 04/18/2025 Social Connection and Isolation Panel Answer Date Recorded In a typical week, how many times do you talk on the phone with family, friends, or neighbors? More than three times a week 04/18/2025 How often do you get togethe r with friends or relatives? More than three times a week 04/18/2025 How often do you attend chur ch or baptist services? Patient declined 04/18/2025 Do you belong to any clubs o r organizations such as advent groups, unions, fraternal or athletic groups, or school groups? Patient declined 04/18/2025 How often do you attend meet ings of the clubs or organizations you belong to? Patient declined 04/18/2025 Are you , , di vorced, , never , or living with a partner? 04/18/2025 Overall Financial Resource Strain (CARDIA) Answe r Date Recorded How hard is it for you to pa y for the very basics like food, housing, medical care, and heating? Not hard at all 04/18/2025 PHQ-2 Answer Date Recorded PHQ-2 Total Score (If total score is 3 or more points, staff should administer the PHQ-9) 0 08/08/2025 Hunger Vital Sign Answer Date Recorded Within the past 12 months, y ou worried that your food would run out before you got the money to buy more. Never true 04/18/20 25 Within the past 12 months, t he food you bought just didn't last and you didn't have money to get more. Never true 04/18/2025 PRAPARE - Transportation Answer Date Re corded In the past 12 months, has l ack of transportation kept you from medical appointments or from getting medications? No 03/23 In the past 12 months, has l ack of transportation kept you from meetings, work, or from getting things needed for daily living? No 04/18/2025 Housing Stability Vital Sign Answer Mumtaz e Recorded In the last 12 months, was t here a time when you were not able to pay the mortgage or rent on time? No 04/18/2025 In the past 12 months, how m any times have you moved where you were living? 0 04/18/2025 At any time in the past 12 m [facility], were you homeless or living in a detention (including now)? No 04/18/2025 AUDIT-C Answer Date Recorded Q1: How often do you have a drink containing alc ohol? Never 06/27/2025 Average Number of Drinks Not on file 025 Frequency of Binge Drinking Not on file 02/2025 Personal Safety Answer Date Recorded Have you ever been in or are you currently in a harmful physical or emotional relationship or is someone making you feel afraid or unsafe? 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 [employer] Not on file Not on file Not on file Last Filed Vital Signs Vital Sign Reading Time Taken Comments Blood Pressure 132/74 08/10/2025 4:09 PM SPECIALTY DEVELOPMENT CONSULTANT Pulse 87 08/10/2025 4:09 PM SPECIALTY DEVELOPMENT CONSULTANT Temperature 36.8 C (98.2 F) 08/08/2025 2:42 PM SPECIALTY DEVELOPMENT CONSULTANT Respiratory Rate 20 07/25/2025 9:35 AM SPECIALTY DEVELOPMENT CONSULTANT Oxygen Saturation 97% 08/10/2025 4:09 PM SPECIALTY DEVELOPMENT CONSULTANT Inhaled Oxygen Concentration - - Weight 65.3 kg (144 lb) 08/15/2025 12:59 PM SPECIALTY DEVELOPMENT CONSULTANT Height 177.8 cm (5' 10) 08/15/2025 12:59 PM SPECIALTY DEVELOPMENT CONSULTANT Body Mass Index 20.66 08/15/2025 12:59 PM SPECIALTY DEVELOPMENT CONSULTANT Plan of Treatment Upcoming Encounters Date Type Department Care Team (Late st Contact Info) Description 10/10/2025 10:15 AM SPECIALTY DEVELOPMENT CONSULTANT Hospital Encounter [facility] Endoscopy at [address] [phone] Kath Shepherd MD [address] [phone] 10/10/2025 10:15 AM SPECIALTY DEVELOPMENT CONSULTANT - 10/10/2025 11:00 AM SPECIALTY DEVELOPMENT CONSULTANT Surgery [facility] Endoscopy at [address] [phone] Kath Shepherd MD [address] [address] COLONOSCOPY Scheduled Procedures Name Priority Associated Diagnoses Date/Ti me COLONOSCOPY Crohn's disease of both small and large intestine with other complication 10/10/2025 10:15 AM SPECIALTY DEVELOPMENT CONSULTANT Health Maintenance Due Date Last Done Comments Zoster Vaccine (2 of 3) 11/28/2015 10/03/19 16, 09/23/2014, 1950, Additional history exists Well Visit 65+ 02/05/2025 02/06/2024 Covid-19 Vaccine (2024-2 6 season) 2025 08/06/2021, 12/01/2020, 11/09/2020 Depression Screening 08/08/2026 08/08/2025, 06/06/2025, 11/23/2024, Additional history exists Fall Risk Assessment 08/08/2026 08/08/2025, 06/06/2025, 04/26/2025, Additional history exists DTaP/Tdap/Td Vaccine (3 - [...] Additional history exists Colorectal Cancer Screening Discontinued Influenza Vaccine Completed 07/14/2025, , 07/03/2023, Additional history exists Pneumococcal vaccine 65+ Completed 07/14/2025, 12/2013 Hepatitis B Screening Discontinued Goals Goal Patient Goal Type Associated Problems Recent Progress Patient-Stated? Author APRIL General Goal - Patient / caregiver verbalizes lifestyle changes necessary to meet self-care needs and executes self-care activities to utmost capability ACO Care Management On track(2024 12:18 PM CDT) Steven Marroquin RN Note: Problem: At Risk for Self Care Deficit Interventions: - Assess patient's level of dependence on others along with current level of assistance being provided. - Use motivational interviewing to help guide the patient in accepting the needed amount of assisstance, as applicable. - Contact caregiver and assess their involvement with patient and level of assistance provided, as appropriate. - Assess appropriateness for Home Health. Start referral process if skilled need is present. - Encourage independent ADL's as appropriate. Ensure patient has the appropriate tools at home to be as independent as possible. - Provide fall prevention education to patient and caregiver. - Evaluate need for assistive devices. - Refer to SW if appropriate and patient is agreeable. Medical Devices Implanted Type Area Pack Changer Device Identifier Shelf Expiration Date Model / Serial / Lot [employer] [id number] Synergy 3.5mm 24mm 144cm Radiopaque 1 Access Port Inflation Lumen - [id number] - [id number] Implanted:Qty: 1 on 03/26/2019 by Alban Santana MD at [facility] Stent [employer] 12/09/2020 [id number] / [id number] / [id number] [employer] Ar[employer] Angio-Seal Vip 6fr Closere Device [id number] - [id number] Implanted:Qty: 1 on 04/25/2025 by Zak Hernandez MD at [facility] Vascular Closure Device [employer] 12/02/2025 [id number] / / [id number] Procedures Procedure Name Priority Date/Time Associated Diagnosis Comments EGFR Routine 08/22/2025 1:31 PM SPECIALTY DEVELOPMENT CONSULTANT New onset of congestive heart failure (HCC) URINALYSIS, MICROSCOPIC ONLY Routine 08/22/2025 1:31 PM SPECIALTY DEVELOPMENT CONSULTANT Recurrent UTI PRO B-TYPE NATRIURETIC PEPTIDE Routine 08/22/2025 1:31 PM SPECIALTY DEVELOPMENT CONSULTANT New onset of congestive heart failure (HCC) BASIC METABOLIC PANEL Routine 08/22/2025 1:31 PM SPECIALTY DEVELOPMENT CONSULTANT New onset of congestive heart failure (HCC) URINALYSIS AND REFLEX TO MICROSCOPIC AND CULTURE Routine 08/22/2025 1:31 PM SPECIALTY DEVELOPMENT CONSULTANT Recurrent UTI URINE CULTURE Routine 08/15/2025 1:39 PM SPECIALTY DEVELOPMENT CONSULTANT Urinary tract infection with hematuria, site unspecified POCT URINALYSIS DIPSTICK Routine 08/15/2025 1:37 PM SPECIALTY DEVELOPMENT CONSULTANT Urinary tract infection with hematuria, site unspecified US KIDNEY COMPLETE Schedule Routine, Read Routine (OP Routine) 08/10/2025 1:44 PM SPECIALTY DEVELOPMENT CONSULTANT Chronic kidney disease, stage 4 (severe) (HCC) XR CHEST PA LATERAL 2 VIEWS Schedule Routine, Read Routine (OP Routine) 08/10/2025 11:14 AM SPECIALTY DEVELOPMENT CONSULTANT New onset of congestive heart failure (HCC) EGFR Routine 08/08/2025 3:47 PM SPECIALTY DEVELOPMENT CONSULTANT New onset of congestive heart failure (HCC) Stage 4 chronic kidney disease (HCC) DIFFERENTIAL AUTO Routine 08/08/2025 3:4 7 PM SPECIALTY DEVELOPMENT CONSULTANT New onset of congestive heart failure (HCC) Stage 4 chronic kidney disease (HCC) COMPREHENSIVE METABOLIC PANEL Routine 08/08/2025 3:47 PM SPECIALTY DEVELOPMENT CONSULTANT New onset of congestive heart failure (HCC) Stage 4 chronic kidney disease (HCC) PRO B-TYPE NATRIURETIC PEPTIDE Routine 08/08/2025 3:47 PM SPECIALTY DEVELOPMENT CONSULTANT New onset of congestive heart failure (HCC) Stage 4 chronic kidney disease (HCC) CBC WITH AUTO DIFFERENTIAL Routine 08/08/2025 3:47 PM SPECIALTY DEVELOPMENT CONSULTANT New onset of congestive heart failure (HCC) Stage 4 chronic kidney disease (HCC) URINALYSIS, MICROSCOPIC ONLY Routine 08/08/2025 10:24 AM SPECIALTY DEVELOPMENT CONSULTANT Recurrent UTI URINE CULTURE Routine 08/08/2025 10:24 AM SPECIALTY DEVELOPMENT CONSULTANT URINALYSIS AND REFLEX TO MICROSCOPIC AND CULTURE Routine 08/08/2025 10:24 AM SPECIALTY DEVELOPMENT CONSULTANT Recurrent UTI POCT URINALYSIS DIPSTICK Routine 07/25/2025 11:40 AM SPECIALTY DEVELOPMENT CONSULTANT Confusion Chills URINE CULTURE Routine 07/25/2025 11:00 AM SPECIALTY DEVELOPMENT CONSULTANT Confusion Chills URINE CULTURE Routine 06/27/2025 3:09 PM CDT Benign prostatic hyperplasia with lower urinary tract symptoms, symptom details unspecified US ARTERIAL DUPLEX LOWER EXTREMITY LEFT LIMITED Schedule Routine, Read Routine (OP Routine) 06/27/2025 2:16 PM CDT Encounter for surgical aftercare following surgery on the circulatory system US DEREK Schedule Routine, Read Routine (OP Routine) 06/27/2025 2:16 PM CDT Encounter for surgical aftercare following surgery on the circulatory system URINALYSIS, MICROSCOPIC ONLY Routine 06/16/2025 9:45 AM CDT Recurrent UTI URINE CULTURE Routine 06/16/2025 9:45 AM CDT URINALYSIS AND REFLEX TO MICROSCOPIC AND CULTURE Routine 06/16/2025 9:45 AM CDT Recurrent UTI CT CHEST WO CONTRAST Schedule Routine, Read Routine (OP Routine) 06/09/2025 11:55 AM CDT Pulmonary nodule 1 cm or greater in diameter Abnormal chest CT COLONOSCOPY 10/21/2024 10:56 AM SPECIALTY DEVELOPMENT CONSULTANT CTA ABDOMEN PELVIS W WO CONTRAST Schedule Routine, Read Routine (OP Routine) 02/18/2024 12:14 PM CDT PVD (peripheral vascular disease) HEPATITIS C ANTIBODY Routine 02/06/2024 11:23 AM CDT Encounter for hepatitis C screening test for low risk patient from Last 3 Months or Most Recently Relevant to Health Maintenance Results * (ABNORMAL) eGFR (08/22/2025 1:31 PM SPECIALTY DEVELOPMENT CONSULTANT) eGFR 30(L) >=60 mL/min/1. 73 m2 Comment: Interpretive Data [...] interpretive data was last reviewed 2021. Blood 08/22/2025 1:31 PM SPECIALTY DEVELOPMENT CONSULTANT 08/22/2025 6:39 PM SPECIALTY DEVELOPMENT CONSULTANT us Preethi Godoy PLATE EMBOSSER LAB BLOOD ORDERABLES Final [facility]ul t [facility] [address] [facility] Department [place] [address] * (ABNORMAL) Pro B-type natriuretic peptide (08/22/2025 1:31 PM SPECIALTY DEVELOPMENT CONSULTANT) NT-proBNP 1,816(H) <=450 pg/mL Comment: Interpretive Comments: A. Dyspnea in Acute Care Setting All Ages: < 300 pg/ml, acute heart failure unlikely. < 50 yrs: 300 - 450 pg/ml, further investigation warranted. > 450 pg/ml, acute heart failure likely. 50 - 74 yrs: 300 - 900 pg/ml, further investigation warranted. > 900 pg/ml, acute heart failure likely . > or = 75 yrs: 450 - 1800 pg/ml, further investigation warranted. > 1800 pg/ml, acute heart failure likely. B. Non-acute Setting < 75 yrs < 125 pg/ml, rules out heart failure. > or = 125 pg/ml, further investigation warranted. > or = 75 yrs < 450 pg/ml, rules out heart failure. > or = 450 pg/ml, further investigation warranted. - Knowledge of each individual patient's NT-proBNP range may be more useful than using similar cut-points for every patient. Please note that marked elevations in NT-proBNP levels may be observed in state other than Left Ventricular Congestive Failure, including: acute coronary syndromes, right heart strain/failure (including pulmonary embolism and cor pulmonale), critical illness, renal failure, as well as advanced age. - References: 1. Tomas REYNOLDS et.al. Eur Heart J. 2006:27:330-337. 2. Debbi RW, Faith GARZA. J. AM Janel Cardiol: Cardiovasc Imag. 2009;2: 216- 225. Interpretive Data Last Revised Date: 2018. Blood 08/22/2025 1:31 PM SPECIALTY DEVELOPMENT CONSULTANT 08/22/2025 6:39 PM SPECIALTY DEVELOPMENT CONSULTANT us Preethi Godoy PLATE EMBOSSER LAB BLOOD ORDERABLES Final Resul t [facility] [address] [facility] Department [place] [address] * (ABNORMAL) Urinalysis reflex to microscopic and culture Urine, in and out catheter (08/22/2025 1:31PM SPECIALTY DEVELOPMENT CONSULTANT) Color, ur Yellow Yellow Clarity, ur Clear Clear [facility] Specific gravity, ur 1.021 1.003 - 1.030 [facility] pH, urine 6.0 [facility] Comment: Interpretive Data U rine pH is affected by diet, medications, systemic acid-base disturbances, and renal tubular function. pH may affect urinary stone formation. For example, urine pH below 6.0 may help reduce the tendency for calcium phosphate stones and pH greater than 6.0 may reduce the tendency for uric acid stone formation. Source: [facility] Current Interpretive Data was last revised on 2017 Protein, ur ql 1+(A) Negative [facility] Glucose, ur ql Negative Negative [facility] Ketones, ur Negative Negative [facility] Bilirubin, ur Negative Negative [facility] Blood, ur Negative Negative [facility] Urobilinogen, ur <2.0 <2.0 mg/dL [facility] Nitrite, ur Negative Negative [facility] Leukocyte esterase, ur Negative Negative [facility] UA reflex comment Reflex to microscopic UA will be performed. [facility] Urine, in and out catheter 08/22/2025 1:31 PM SPECIALTY DEVELOPMENT CONSULTANT 08/22/2025 6:35 PM SPECIALTY DEVELOPMENT CONSULTANT us Preethi Godoy NP LAB MICROBIOLOGY - GENERAL ORDER MANJINDER Final Result Performing Organization Address [facility] de Phone Number [address] [email or web address] [address] * (ABNORMAL) Urinalysis, microscopic only (08/22/2025 1:31 PM SPECIALTY DEVELOPMENT CONSULTANT) WBC, ur 0-5 0 - 5 /HPF RBC, ur 6-10(A) 0 - 2 /HPF [facility] Epithelial cells, squamous, ur 1-5 0 - 5 /HPF [facility] Mucous, ur Present(A) [facility] Hyaline casts, ur 1-5 0 - 10 /LPF [facility] Culture Reflex Comment Reflex conditions for urine culture (WBC >10) not met. [facility] Urine, in and out catheter 08/22/2025 1:31 PM SPECIALTY DEVELOPMENT CONSULTANT 08/22/2025 6:35 PM SPECIALTY DEVELOPMENT CONSULTANT us Preethi Godoy NP LAB URINE ORDERABLES Final Resul t Performing Organization Address [facility] Co de Phone Number [address] [email or web address] [address] * (ABNORMAL) Basic metabolic panel (08/22/2025 1:31 PM SPECIALTY DEVELOPMENT CONSULTANT) Sodium 146(H) 135 - 145 mmol/L Potassium, pl 3.8 3.3 - 4.9 mmol/L [facility] Chloride 107 97 - 110 mmol/L [facility] CO2 29 22 - 32 mmol/L [facility] Anion gap 10 2 - 15 mmol/L [facility] BUN 24 6 - 25 mg/dL [facility] Creatinine 2.17(H) 0.80 - 1.30 mg/dL [facility] Glucose 105 70 - 199 mg/dL [facility] Comment: Interpretive Data Fasting glucose >/= [...] interpretive data was last revised 2022. Calcium 8.6 8.5 - 10.3 mg/dL [facility] Blood 08/22/2025 1:31 PM SPECIALTY DEVELOPMENT CONSULTANT 08/22/2025 6:39 PM SPECIALTY DEVELOPMENT CONSULTANT us Preethi Godoy NP LAB BLOOD ORDERABLES Final Resul t [facility] [address] [facility] Department [place] [address] * Urine culture Urine, bladder (08/15/2025 1:39 PM SPECIALTY DEVELOPMENT CONSULTANT) Pathologist [facility] Report Final Report: Less than 100,000 colonies/mL (clinically insignificant growth based on current clinical standards) Comment:Testing performed by : [facility], [address] [facility], [place]., [address] Organism (CLINICALLY INSIGNIFICANT GROWTH [facility] Urine, bladder 08/15/2025 1: 39 PM SPECIALTY DEVELOPMENT CONSULTANT 08/15/2025 7:15 PM SPECIALTY DEVELOPMENT CONSULTANT Narrative [facility] - 08/16/2025 9:24 PM SPECIALTY DEVELOPMENT CONSULTANT Testing performed by [facility] Microbiology Laboratory ([phone]) us Kay Epstein MD LAB MICROBIOLOGY - G ENERAL ORDERABLES Final Result [facility] [address] [facility] Department [place] [address] * (ABNORMAL) POCT urinalysis dipstick (08/15/2025 1:37 PM SPECIALTY DEVELOPMENT CONSULTANT) Color, Urine, POC Yellow Clarity, ur, POC Cloudy(A) Clear Glucose, ur, POC Negative Negative Bilirubin, ur, POC Negative Negative Ketones, ur, POC Negative Negative Specific [place], POC 1.015 1.003 - 1.030 Blood, ur, POC Trace(A) Negative pH, ur, POC 6.0 5.0 - 8.0 Protein, ur, POC Negative Negative Urobilinogen, urine, POC 0.2 0.2 - 1.0 mg/dL Nitrite, ur, POC Negative Negative Leukocytes, ur, POC Trace(A) Negative Lot Number 0 Urine 08/15/2025 1:37 PM SPECIALTY DEVELOPMENT CONSULTANT Kay Epstein MD POINT OF CARE TEST O RDERABLES Final Result * US Kidney Complete (08/10/2025 1:44 PM SPECIALTY DEVELOPMENT CONSULTANT) Anatomical Region Laterality Modality Kidney N/A Ultrasound 08/10/2025 1:46 PM SPECIALTY DEVELOPMENT CONSULTANT Impressions 08/10/2025 1:46 PM SPECIALTY DEVELOPMENT CONSULTANT Unremarkable renal ultrasound. No hydronephrosis. Electronically signed by: Can Quintero MD Narrative 08/10/2025 1:46 PM SPECIALTY DEVELOPMENT CONSULTANT EXAMINATION: COMPLETE RENAL SONOGRAM HISTORY: Chronic kidney disease stage IV COMPARISON: Renal ultrasound 04/19/2025 FINDINGS: Kidneys: The echogenicity of both kidneys is normal. The kidneys are normal in size. The right kidney measures 10.3 cm in length, and the left, 9.7 cm in length. There is no hydronephrosis in either kidney. There are no renal calculi visualized. Bladder: The ureteral jets are not visualized. The urinary bladder is otherwise unremarkable. Procedure Note Can Quintero MD - 08/10/2025 EXAMINATION: COMPLETE RENAL SONOGRAM HISTORY: Chronic kidney disease stage IV COMPARISON: Renal ultrasound 04/19/2025 FINDINGS: Kidneys: The echogenicity of both kidneys is normal. The kidneys are normal in size. The right kidney measures 10.3 cm in length, and the left, 9.7 cm in length. There is no hydronephrosis in either kidney. There are no renal calculi visualized. Bladder: The ureteral jets are not visualized. The urinary bladder is otherwise unremarkable. IMPRESSION: Unremarkable renal ultrasound. No hydronephrosis. Electronically signed by: Can Quintero MD us Ozzy Jha MD IMG US PROCEDURES Final Result * XR Chest PA Lateral 2 Views (08/10/2025 11:14 AM SPECIALTY DEVELOPMENT CONSULTANT) Anatomical Region Laterality Modality Body, Chest N/A Computed Radiogr aphy 08/10/2025 11:3 5 AM SPECIALTY DEVELOPMENT CONSULTANT Impressions 08/10/2025 11:35 AM SPECIALTY DEVELOPMENT CONSULTANT 1. Subtle patchy opacities in the right lung base may represent pneumonia. Recommend follow-up to ensure resolution and exclude underlying neoplastic process. 2. Blunting of the costophrenic angles may represent small bilateral pleural effusions or scarring. Electronically signed by: Can Quintero MD Narrative 08/10/2025 11:35 AM SPECIALTY DEVELOPMENT CONSULTANT EXAMINATION: XR CHEST PA LATERAL 2 VIEWS HISTORY: weight gain (unintentional) since stopping Lasix x 08/02, fatigued TECHNIQUE: Frontal and lateral views of the chest. COMPARISON: 04/20/2025 FINDINGS: There are subtle patchy opacities in the right lung base. There is the appearance of trace bilateral pleural effusions versus scarring. No pneumothorax. The heart size is at the upper limits of normal. There are median sternotomy wires, mediastinal clips, and there is a cardiac stent. Procedure Note Can Quintero MD - 08/10/2025 EXAMINATION: XR CHEST PA LATERAL 2 VIEWS HISTORY: weight gain (unintentional) since stopping Lasix x 08/02, fatigued TECHNIQUE: Frontal and lateral views of the chest. COMPARISON: 04/20/2025 FINDINGS: There are subtle patchy opacities in the right lung base. There is the appearance of trace bilateral pleural effusions versus scarring. No pneumothorax. The heart size is at the upper limits of normal. There are median sternotomy wires, mediastinal clips, and there is a cardiac stent. IMPRESSION: 1. Subtle patchy opacities in the right lung base may represent pneumonia. Recommend follow-up to ensure resolution and exclude underlying neoplastic process. 2. Blunting of the costophrenic angles may represent small bilateral pleural effusions or scarring. Electronically signed by: Can Quintero MD us Preethi Godoy NP IMG XR PROCEDURES Final Result * (ABNORMAL) eGFR (08/08/2025 3:47 PM SPECIALTY DEVELOPMENT CONSULTANT) eGFR 37(L) >=60 mL/min/1. 73 m2 Comment: Interpretive Data [...] interpretive data was last reviewed 2021. Blood 08/08/2025 3:47 PM SPECIALTY DEVELOPMENT CONSULTANT 08/08/2025 7:06 PM SPECIALTY DEVELOPMENT CONSULTANT us Preethi Goody NP LAB BLOOD ORDERABLES Final Resul t [facility] [address] [facility] Department [place] [address] * (ABNORMAL) Differential, auto (08/08/2025 3:47 PM SPECIALTY DEVELOPMENT CONSULTANT) Neutrophil abs 16.04(H) 1.50 - 6.50 K/cumm Imm gran abs 0.17(H) 0.00 - 0.10 K/cumm [facility] Lymphocyte abs 0.46(L) 0.80 - 3.30 K/cumm [facility] Monocyte abs 0.29 0.20 - 0.80 K/cumm [facility] Eosinophil abs 0.01 0.00 - 0.50 K/cumm [facility] Basophil abs 0.04 0.00 - 0.10 K/cumm [facility] Neutrophil pct 94.3 % [facility] Comment: Interpretive Data Percent cell count reference ranges are not reported, since discordance with absolute values may lead to misinterpretation of CBC data. Current Interpretive Data was last revised on 2017. Imm gran pct 1.0 % [facility] Comment: Interpretive Data Percent cell count reference ranges are not reported, since discordance with absolute values may lead to misinterpretation of CBC data. Current Interpretive Data was last revised on 2017. Lymphocyte pct 2.7 % [facility] Comment: Interpretive Data Percent cell count reference ranges are not reported, since discordance with absolute values may lead to misinterpretation of CBC data. Current Interpretive Data was last revised on 2017. Monocyte pct 1.7 % [facility] Comment: Interpretive Data Percent cell count reference ranges are not reported, since discordance with absolute values may lead to misinterpretation of CBC data. Current Interpretive Data was last revised on 2017. Eosinophil pct 0.1 % [facility] Comment: Interpretive Data Percent cell count reference ranges are not reported, since discordance with absolute values may lead to misinterpretation of CBC data. Current Interpretive Data was last revised on 2017. Basophil pct 0.2 % [facility] Comment: Interpretive Data Percent cell count reference ranges are not reported, since discordance with absolute values may lead to misinterpretation of CBC data. Current Interpretive Data was last revised on 2017. Blood 08/08/2025 3:47 PM SPECIALTY DEVELOPMENT CONSULTANT 08/08/2025 7:06 PM SPECIALTY DEVELOPMENT CONSULTANT us Preethi Godoy PLATE EMBOSSER LAB BLOOD ORDERABLES Final Resul t [facility] [address] [facility] Department [place] [address] * (ABNORMAL) Pro B-type natriuretic peptide (08/08/2025 3:47 PM SPECIALTY DEVELOPMENT CONSULTANT) NT-proBNP 4,997(H) <=450 pg/mL Comment: Interpretive Comments: A. Dyspnea in Acute Care Setting All Ages: < 300 pg/ml, acute heart failure unlikely. < 50 yrs: 300 - 450 pg/ml, further investigation warranted. > 450 pg/ml, acute heart failure likely. 50 - 74 yrs: 300 - 900 pg/ml, further investigation warranted. > 900 pg/ml, acute heart failure likely . > or = 75 yrs: 450 - 1800 pg/ml, further investigation warranted. > 1800 pg/ml, acute heart failure likely. B. Non-acute Setting < 75 yrs < 125 pg/ml, rules out heart failure. > or = 125 pg/ml, further investigation warranted. > or = 75 yrs < 450 pg/ml, rules out heart failure. > or = 450 pg/ml, further investigation warranted. - Knowledge of each individual patient's NT-proBNP range may be more useful than using similar cut-points for every patient. Please note that marked elevations in NT-proBNP levels may be observed in state other than Left Ventricular Congestive Failure, including: acute coronary syndromes, right heart strain/failure (including pulmonary embolism and cor pulmonale), critical illness, renal failure, as well as advanced age. - References: 1. Tomas REYNOLDS et.al. Eur Heart J. 2006:27:330-337. 2. Debbi RW, Faith GARZA. J. AM Janel Cardiol: Cardiovasc Imag. 2009;2: 216- 225. Interpretive Data Last Revised Date: 2018. Blood 08/08/2025 3:47 PM SPECIALTY DEVELOPMENT CONSULTANT 08/08/2025 7:06 PM SPECIALTY DEVELOPMENT CONSULTANT us Preethi Godoy PLATE EMBOSSER LAB BLOOD ORDERABLES Final Resul t Performing Organization Address [facility] Co de Phone Number [facility] [address] [place] [address] * (ABNORMAL) CBC with auto differential (08/08/2025 3:47 PM SPECIALTY DEVELOPMENT CONSULTANT) [facility] WBC 17.01(H) 3.80 - 9.90 K/cumm Hgb 10.9(L) 13.0 - 17.5 g/dL [facility] Hct 35.1(L) 38.9 - 50.3 % [facility] Plt 149(L) 150 - 400 K/cumm [facility] MPV 10.4 9.1 - 12.3 fL [facility] RBC 3.35(L) 4.30 - 5.80 M/cumm [facility] MCV 104.8(H) 81.3 - 96.4 fL [facility] MCH 32.5 27.1 - 33.3 pg [facility] MCHC 31.1(L) 32.3 - 35.7 g/dL [facility] RDW CV 16.6(H) 11.1 - 14.9 % [facility] RDW SD 62.4(H) 35.7 - 48.1 fL [facility] NRBC abs 0.00 0.00 - 0.01 K/cumm [facility] Blood 08/08/2025 3:47 PM SPECIALTY DEVELOPMENT CONSULTANT 08/08/2025 7:06 PM SPECIALTY DEVELOPMENT CONSULTANT Preethi Godoy PLATE EMBOSSER LAB BLOOD ORDERABLES Final Resul t Performing Organization Address [facility] Co de Phone Number [facility] [address] [place] [address] * (ABNORMAL) Comprehensive metabolic panel (08/08/2025 3:47 PM SPECIALTY DEVELOPMENT CONSULTANT) [facility] Sodium 144 135 - 145 mmol/L Potassium, pl 4.0 3.3 - 4.9 mmol/L [facility] Chloride 108 97 - 110 mmol/L [facility] CO2 26 22 - 32 mmol/L [facility] Anion gap 10 2 - 15 mmol/L [facility] BUN 27(H) 6 - 25 mg/dL [facility] Creatinine 1.85(H) 0.80 - 1.30 mg/dL [facility] Glucose 129 70 - 199 mg/dL [facility] Comment: Interpretive Data Fasting glucose >/= [...] interpretive data was last revised 2022. Calcium 8.5 8.5 - 10.3 mg/dL [facility] Bilirubin, total 0.5 0.1 - 1.2 mg/dL [facility] Protein, pl 6.2(L) 6.5 - 8.5 g/dL [facility] Albumin 3.9 3.5 - 5.0 g/dL [facility] Alk phos 81 40 - 130 Units/L [facility] ALT 31 7 - 55 Units/L [facility] AST 22 10 - 50 Units/L [facility] Blood 08/08/2025 3:47 PM SPECIALTY DEVELOPMENT CONSULTANT 08/08/2025 7:06 PM SPECIALTY DEVELOPMENT CONSULTANT us Preethi Godoy PLATE EMBOSSER LAB BLOOD ORDERABLES Final Resul t [facility] [address] [facility] Department [place] [address] * (ABNORMAL) Urinalysis reflex to microscopic and culture Urine, in and out catheter (08/08/2025 10:24 AM SPECIALTY DEVELOPMENT CONSULTANT) Color, ur Yellow Yellow Clarity, ur Clear Clear [facility] Specific gravity, ur 1.021 1.003 - 1.030 [facility] pH, urine 6.0 [facility] Comment: Interpretive Data U rine pH is affected by diet, medications, systemic acid-base disturbances, and renal tubular function. pH may affect urinary stone formation. For example, urine pH below 6.0 may help reduce the tendency for calcium phosphate stones and pH greater than 6.0 may reduce the tendency for uric acid stone formation. Source: [facility] Current Interpretive Data was last revised on 2017 Protein, ur ql 1+(A) Negative [facility] Glucose, ur ql Negative Negative [facility] Ketones, ur Negative Negative [facility] Bilirubin, ur Negative Negative [facility] Blood, ur Negative Negative [facility] Urobilinogen, ur <2.0 <2.0 mg/dL [facility] Nitrite, ur Negative Negative [facility] Leukocyte esterase, ur 4+(A) Negative [facility] UA reflex comment Reflex to microscopic UA will be performed. [facility] Urine, in and out catheter 08/08/2025 10:24 AM SPECIALTY DEVELOPMENT CONSULTANT 08/08/2025 2:36 PM SPECIALTY DEVELOPMENT CONSULTANT us Preethi Godoy NP LAB MICROBIOLOGY - GENERAL ORDER MANJINDER Final Result Performing Organization Address [facility] de Phone Number [address] [place] [address] * (ABNORMAL) Urinalysis, microscopic only (08/08/2025 10:24 AM SPECIALTY DEVELOPMENT CONSULTANT) WBC, ur >50(A) 0 - 5 /HPF RBC, ur 3-5(A) 0 - 2 /HPF [facility] Epithelial cells, squamous, ur 1-5 0 - 5 /HPF [facility] Bacteria, ur 1+(A) [facility] Culture Reflex Comment Reflex to urine culture will be performed. [facility] Urine, in and out catheter 08/08/2025 10:24 AM SPECIALTY DEVELOPMENT CONSULTANT 08/08/2025 2:36 PM SPECIALTY DEVELOPMENT CONSULTANT us Preethi Godoy NP LAB URINE ORDERABLES Final Resul t Performing Organization Address [facility] Co de Phone Number [address] [place], [place] [id number] * (ABNORMAL) Urine culture Urine, in and out catheter (08/08/2025 10:24 AM SPECIALTY DEVELOPMENT CONSULTANT) Report Final Report: Greater than or equal to 100,000 colonies/mL of Enterococcus faecalis (.) Comment:Testing performed by : [facility], [address] [place]., [address] Organism ENTEROCOCCUS FAECALIS [facility] Urine, in and out catheter 08/08/2025 10:24 AM SPECIALTY DEVELOPMENT CONSULTANT 08/08/2025 6:54 PM SPECIALTY DEVELOPMENT CONSULTANT Narrative [facility] - 08/10/2025 2:13 PM SPECIALTY DEVELOPMENT CONSULTANT Urine culture reflexed based upon urinalysis results. Testing performed by [facility] Microbiology Laboratory ([phone]) Organism Antibiotic Method Susceptibility Enterococcus faecalis Ampicillin (NARAYAN) INTERPRETATIO N Susceptible Enterococcus faecalis Vancomycin (NARAYAN) INTERPRETATIO N Susceptible Enterococcus faecalis Linezolid (NARAYAN) INTERPRETATIO N Susceptible Enterococcus faecalis Doxycycline (NARAYAN) INTERPRETATIO N Susceptible Enterococcus faecalis Nitrofurantoin (NARAYAN) INTERPRETAT ION Susceptible Preethi Godoy NP LAB MICROBIOLOGY - GENERAL ORDER MANJINDER Final Result [facility] [address] [facility] Department [place] [address] * (ABNORMAL) POCT urinalysis dipstick (07/25/2025 11:40 AM SPECIALTY DEVELOPMENT CONSULTANT) Color, Urine, POC Yellow Clarity, ur, POC Turbid(A) Clear Glucose, ur, POC Negative Negative Bilirubin, ur, POC Negative Negative Ketones, ur, POC Negative Negative Specific [place], POC 1.020 1.003 - 1.030 Blood, ur, POC Trace(A) Negative pH, ur, POC 5.5 5.0 - 8.0 Protein, ur, POC Trace(A) Negative Urobilinogen, urine, POC 0.2 0.2 - 1.0 mg/dL Nitrite, ur, POC Positive(A) Negative Leukocytes, ur, POC Small(A) Negative Lot Number [id number] Urine 07/25/2025 11:4 0 AM SPECIALTY DEVELOPMENT CONSULTANT Sandrita Daugherty NP POINT OF CARE TEST ORDERABLES F inal Result * (ABNORMAL) Urine culture Urine, clean voided (07/25/2025 11:00 AM SPECIALTY DEVELOPMENT CONSULTANT) Report Final Report: Greater than or equal to 100,000 colonies/mL of Klebsiella pneumoniae Greater than or equal to 100,000 colonies/mL of Escherichia coli (.) Comment:Testing performed by : [facility], [address] [place]., [address] Organism KLEBSIELLA PNEUMONIAE [facility] Organism ESCHERICHIA COLI [facility] Urine, clean voided 07/25/2025 11:00 AM SPECIALTY DEVELOPMENT CONSULTANT 07/25/2025 8:16 PM SPECIALTY DEVELOPMENT CONSULTANT Narrative [facility] - 07/29/2025 12:47 PM SPECIALTY DEVELOPMENT CONSULTANT Testing performed by [facility] Microbiology Laboratory ([phone]) Organism Antibiotic Method Susceptibility Klebsiella pneumoniae Ampicillin INTERPRETATION Resistant Klebsiella pneumoniae Cefazolin INTERPRETATION Susceptible Klebsiella pneumoniae Nitrofurantoin INTERPRETATION Susceptible Klebsiella pneumoniae Gentamicin INTERPRETATION Susceptible Klebsiella pneumoniae Trimethoprim with Sulfamethoxazole INTERPRETATION Resistant Klebsiella pneumoniae Meropenem INTERPRETATION Susceptible Klebsiella pneumoniae Cefepime INTERPRETATION Susceptible Klebsiella pneumoniae Ciprofloxacin INTERPRETATION Susceptible Klebsiella pneumoniae Ceftazidime INTERPRETATION Susceptible Klebsiella pneumoniae Ceftriaxone INTERPRETATION Susceptible Klebsiella pneumoniae Piperacillin/Tazobactam INTERPRE TATION Susceptible Klebsiella pneumoniae Cephalexin INTERPRETATION Susceptible Klebsiella pneumoniae Cefuroxime-axetil INTERPRETATION Susceptible Klebsiella pneumoniae Cefdinir INTERPRETATION Susceptible Escherichia coli Ampicillin INTERPRETATION Susceptible Escherichia coli Cefazolin INTERPRETATION Susceptible Escherichia coli Nitrofurantoin INTERPRETATION Susceptible Escherichia coli Gentamicin INTERPRETATION Susceptible Escherichia coli Trimethoprim with Sulfamethoxazole INTERPRETATION Susceptible Escherichia coli Meropenem INTERPRETATION Susceptible Escherichia coli Cefepime INTERPRETATION Susceptible Escherichia coli Ciprofloxacin INTERPRETATION Susceptible Escherichia coli Ceftazidime INTERPRETATION Susceptible Escherichia coli Ceftriaxone INTERPRETATION Susceptible Escherichia coli Piperacillin/Tazobactam INTERPRETATIO N Susceptible Escherichia coli Cephalexin INTERPRETATION Susceptible Escherichia coli Cefuroxime-axetil INTERPRETATION Susceptible Escherichia coli Cefdinir INTERPRETATION Susceptible us Sandrita Daugherty NP LAB MICROBIOLOGY - GENERAL HILARIO JULIAN Final Result [facility] [address] Department [place] [address] * (ABNORMAL) Urine culture Urine, in and out catheter (06/27/2025 3:09 PM CDT) Report Final Report: Greater than or equal to 100,000 colonies/mL of Citrobacter amalonaticus complex The susceptibility pattern of this Citrobacter amalonaticus complex indicates the possible production of an extended spectrum beta lactamase (ESBL). Patients infected with ESBL-producing organisms require contact isolation precautions. For therapeutic options for this organism, please contact infectious diseases. (.) Organism CITROBACTER AMALONATICUS COMPLEX SEBASTIANYUMIKO [facility] Urine, in and out catheter 06/27/2025 3:09 PM CDT 06/27/2025 3:41 PM CDT Narrative TRAVIS [facility] - 07/01/2025 6:25 AM CDT Testing performed by [facility] Microbiology Laboratory ([phone]) Organism Antibiotic Method Susceptibility Citrobacter amalonaticus complex Ampicillin INTERPRETATION Resistant Citrobacter amalonaticus complex Cefazolin INTERPRETATION Resistant Citrobacter amalonaticus complex Nitrofurantoin INTERPRETATION Susceptible Citrobacter amalonaticus complex Gentamicin INTERPRETATION Susceptible Citrobacter amalonaticus complex Trimethoprim with Sulfamethoxazole INTERPRETATION Susceptible Citrobacter amalonaticus complex Meropenem INTERPRETATION Susceptible Citrobacter amalonaticus complex Cefepime INTERPRETATION Susceptible Citrobacter amalonaticus complex Ciprofloxacin INTERPRETATION Susceptible Citrobacter amalonaticus complex Ceftazidime INTERPRETATION Susceptible Citrobacter amalonaticus complex Ceftriaxone INTERPRETATION Intermediate Citrobacter amalonaticus complex Amikacin INTERPRETATION Susceptible Citrobacter amalonaticus complex Aztreonam INTERPRETATION Resistant Citrobacter amalonaticus complex Imipenem INTERPRETATION Susceptible Citrobacter amalonaticus complex Ertapenem INTERPRETATION Susceptible Citrobacter amalonaticus complex Minocycline INTERPRETATION Susceptible Citrobacter amalonaticus complex Tobramycin INTERPRETATION Susceptible Citrobacter amalonaticus complex Levofloxacin INTERPRETATION Susceptible Citrobacter amalonaticus complex Doxycycline INTERPRETATION Susceptible Citrobacter amalonaticus complex Ampicillin with Sulbactam INTERPRETATION Resistant us Basilio Perry NP LAB MICROBIOLOGY - GENERAL OR DERABLES Final Result [facility] [place] [address] * [place] Arterial Duplex Lower Extremity Left Limited (06/27/2025 2:16 PM CDT) Anatomical Region Laterality Modality Vascular Left Ultrasound 06/27/2025 1:09 PM CDT Narrative 06/28/2025 9:14 AM CDT [facility] - Department of Vascular Surgery, Vascular Laboratory [address] [place] [address] [place] Lower Extremity Arterial Duplex Report Patient Name: AZIZA LOYA O : 1945 Study Date: 06/27/2025 1:09:20 PM Sex: M Tech: [facility] Location: [facility] Provider: ANAYELI CHUNG Quality: Adequate Order Provider: ANAYELI CHUNG PROCEDURES: Arterial Report: Left Lower Extremity Arterial Duplex Exam. INDICATIONS: Z48.812 Encounter for surgical aftercare following surgery on the circulatory system. 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 Left Common Femoral: The left common femoral waveform is multiphasic. Left Profunda: The left profunda waveform is multiphasic. Systolic velocity ratio in the left profunda femoral artery is 2.4 which is consistent with a 50-75% stenosis. Left Proximal Superficial Femoral Artery: The left proximal femoral artery waveform is multiphasic. Left Mid Superficial Femoral Artery: The left mid femoral artery waveform is multiphasic. Left Distal Superficial Femoral Artery: The left distal femoral artery waveform is multiphasic. Left Popliteal: The left popliteal waveform is multiphasic. Left Posterior Tibial: The left posterior tibial waveform is absent at the distal segment. Systolic velocity ratio in the left PROXIMAL posterior tibial artery is 3.5 which is consistent with a 50-75% stenosis. Left Anterior Tibial: The left anterior tibial waveform is absent at the distal segment. Barely multiphasic at the mid and proximal segments. Patent anterior communicating collateral noted at the distal peroneal artery that is colateralized toward the foot. Left Peroneal: The left peroneal artery waveform is BARELY multiphasic. CONCLUSIONS: 1. See Ankle/ Brachial Index report. 2. A 50-75% stenosis is noted on the left: profunda femoral artery and proximal posterior tibial artery. 3. No flow noted at the distal [employer]ING [employer] TENDER and distal KEESHA. 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 PREVIOUS STUDIES: Previous study on 04-17-25 [facility] revealed RT DEREK NC, LT [employer] TENDER DEREK NC, LT KEESHA DEREK 0. DISCLAIMER: The study images and the final report will be retained in the patient chart by the Vascular Laboratory for the legally required time period. This chart constitutes the legal record of any testing performed. ATTESTATION: I have reviewed and interpreted the pertinent images and measurements of this study. I attest to the conclusions in the final report that is provided above. Electronically Signed By: Zak Hernandez MD [facility] 06/28/2025 8:44:23 AM CDT Procedure Note Zak Hernandez MD - 06/28/2025 [facility] - Department of Vascular Surgery,Vascular Laboratory [address] [place] [address] [place] Lower Extremity Arterial Duplex Report Patient Name: AZIZA LOYA O : 1945 Study Date: 06/27/2025 1:09:20 PM Sex: M Tech: / Location: [facility] Provider: ANAYELI CHUNG Quality: Adequate Order Provider: ANAYELI CHUNG PROCEDURES: Arterial Report: Left Lower Extremity Arterial Duplex Exam. INDICATIONS: Z48.812 Encounter for surgical aftercare following surgery on thecirculatory system. 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 Left Common Femoral: The left common femoral waveform is multiphasic. Left Profunda: The left profunda waveform is multiphasic. Systolic velocity ratio in theleft profunda femoral artery is 2.4 which is consistent with a 50-75% stenosis. Left Proximal Superficial Femoral Artery: The left proximal femoral artery waveform is multiphasic. Left Mid Superficial Femoral Artery: The left mid femoral artery waveform is multiphasic. Left Distal Superficial Femoral Artery: The left distal femoral artery waveform is multiphasic. Left Popliteal: The left popliteal waveform is multiphasic. Left Posterior Tibial: The left posterior tibial waveform is absent at the distal segment.Systolic velocity ratio in the left PROXIMAL posterior tibial artery is 3.5 which isconsistent with a 50-75% stenosis. Left Anterior Tibial: The left anterior tibial waveform is absent at the distal segment. Barely multiphasic at the mid and proximal segments. Patent anterior communicating collateral noted at the distal peronealartery that is colateralized toward the foot. Left Peroneal: The left peroneal artery waveform is BARELY multiphasic. CONCLUSIONS: 1. See Ankle/ Brachial Index report. 2. A 50-75% stenosis is noted on the left: profunda femoral artery andproximal posterior tibial artery. 3. No flow noted at the distal [employer] T[employer]ER and distal KEESHA. 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 PREVIOUS STUDIES: Previous study on 04-17-25 [facility] revealed RT DEREK NC, LT [employer] T[employer]ER DEREK NC, LTATA DEREK 0. DISCLAIMER: The study images and the final report will be retained in the patientchart by the Vascular Laboratory for the legally required time period. This chartconstitutes the legal record of any testing performed. ATTESTATION: I have reviewed and interpreted the pertinent images and measurements ofthis study. I attest to the conclusions in the final report that is provided above. Electronically Signed By: Zak Hernandez MD FACS 06/28/2025 8:44:23 AM CDT us Anayeli [facility] IMG US PROCEDURES Final Result * US DEREK (06/27/2025 2:16 PM CDT) Anatomical Region Laterality Modality Vascular N/A Ultrasound 06/27/2025 1:11 PM CDT Narrative 06/28/2025 9:14 AM CDT [facility] - Department of Vascular Surgery, Vascular Laboratory [address] [place] [address] Lower Extremity Arterial Doppler Report Patient Name: AZIZA LOYA O : 1945 Study Date: 06/27/2025 1:11:00 PM Sex: M Tech: Juany Burrell RVT, KEYONACS, RDM Location: [facility] Provider: ANAYELI CHUNG Quality: Adequate Order Provider: ANAYELI CHUNG PROCEDURES: Arterial Report: Ankle - Brachial Index Doppler exam. INDICATIONS: Z48.812 Encounter for surgical aftercare following surgery on the circulatory system. MEASUREMENTS: Right Value Units Left Value Units Rt Brachial Pressure 129 mmHg Lt Brachial Pressure 130 mmHg Rt [employer]ER Pressure >255 mmHg Lt [employer]ER Pressure 164 mmHg Rt DPA Pressure >255 mmHg Lt DPA Pressure 59 mmHg Rt 1st Digit Pressure 81 mmHg Lt 1st Digit Pressure 69 mmHg Rt PT DEREK Resting n/c Lt PT DEREK Resting 1.26 Rt AT DEREK Resting n/c Lt AT DEREK Resting 0.45 Rt Digit/Arm Index 0.62 Lt Digit/Arm Index 0.53 Right Value Units Left Value Units FINDINGS: Performing Supervisor Smoke Control: Juany Burrell, RVT, RDMS, RDCS, ACS. Analilia Rj (student). Right Posterior Tibial Artery Analysis: The posterior tibial artery waveform is monophasic with preserved sharp upstroke. Right Anterior Tibial Artery Analysis: The anterior tibial waveform is multiphasic. Left Posterior Tibial Artery Analysis: The posterior tibial artery waveform is monophasic with preserved sharp upstroke. Left Anterior Tibial Artery Analysis: The anterior tibial waveform is monophasic. CONCLUSIONS: 1. The right ankle arteries are non-compressible which is consistent with arterial calcification thus the Ankle/Brachial Index on the right is not obtainable. 2. The above listed left ankle pressures and Ankle/Brachial Index are artifactually elevated due to limited vessel compressibility. The finding is consistent with arterial calcification thus left DEREK is not diagnostic. 3. Right Digit/Arm Index is within normal limits (for reference, normal REMINGTON is >0.6). 4. Left Digit/Arm Index is abnormal (for reference, abnormal REMINGTON is <0.6). 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 PREVIOUS STUDIES: Previous study on 04-17-25 [facility] revealed RT DEREK NC, LT [employer] T[employer]ER DEREK NC, LT KEESHA DEREK 0. DISCLAIMER: The study images and the final report will be retained in the patient chart by the Vascular Laboratory for the legally required time period. This chart constitutes the legal record of any testing performed. ATTESTATION: I have reviewed and interpreted the pertinent images and measurements of this study. I attest to the conclusions in the final report that is provided above. Electronically Signed By: Zak Hernandez MD FACS 06/28/2025 8:44:09 AM CDT Procedure Note Zak Hernandez MD - 06/28/2025 [facility] - Department of Vascular Surgery,Vascular Laboratory [address] [place] [id number] Lower Extremity Arterial Doppler Report Patient Name: AZIZA LOYA O : 1945 Study Date: 06/27/2025 1:11:00 PM Sex: M Tech: Juany Burrell RVT, RDCS, RDM Location: [facility] Provider: ANAYELI CHUNG Quality: Adequate Order Provider: ANAYELI CHUNG PROCEDURES: Arterial Report: Ankle - Brachial Index Doppler exam. INDICATIONS: Z48.812 Encounter for surgical aftercare following surgery on thecirculatory system. MEASUREMENTS: Right Value Units Left Value Units Rt Brachial Pressure 129 mmHg Lt Brachial Pressure 130 mmHg Rt [employer] TENDER Pressure >255 mmHg Lt [employer] TENDER Pressure 164 mmHg Rt DPA Pressure >255 mmHg Lt DPA Pressure 59 mmHg Rt 1st Digit Pressure 81 mmHg Lt 1st Digit Pressure 69 mmHg Rt PT DEREK Resting n/c Lt PT DEREK Resting 1.26 Rt AT DEREK Resting n/c Lt AT DEREK Resting 0.45 Rt Digit/Arm Index 0.62 Lt Digit/Arm Index 0.53 Right Value Units Left Value Units FINDINGS: Performing Supervisor Smoke Control: Juany Burrell RVT, MELISA, RDCS, ACS. Analilia De La Rosa (student). Right Posterior Tibial Artery Analysis: The posterior tibial artery waveform is monophasic with preserved sharpupstroke. Right Anterior Tibial Artery Analysis: The anterior tibial waveform is multiphasic. Left Posterior Tibial Artery Analysis: The posterior tibial artery waveform is monophasic with preserved sharpupstroke. Left Anterior Tibial Artery Analysis: The anterior tibial waveform is monophasic. CONCLUSIONS: 1. The right ankle arteries are non-compressible which is consistent witharterial calcification thus the Ankle/Brachial Index on the right is notobtainable. 2. The above listed left ankle pressures and Ankle/Brachial Index areartifactually elevated due to limited vessel compressibility. The finding is consistentwith arterial calcification thus left DEREK is not diagnostic. 3. Right Digit/Arm Index is within normal limits (for reference, normalDAI is >0.6). 4. Left Digit/Arm Index is abnormal (for reference, abnormal REMINGTON is<0.6). 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 PREVIOUS STUDIES: Previous study on 04-17-25 [facility] US revealed RT DEREK NC, LT [employer] TENDER DEREK NC, LTATA DEREK 0. DISCLAIMER: The study images and the final report will be retained in the patientchart by the Vascular Laboratory for the legally required time period. This chartconstitutes the legal record of any testing performed. ATTESTATION: I have reviewed and interpreted the pertinent images and measurements ofthis study. I attest to the conclusions in the final report that is provided above. Electronically Signed By: Zak Hernandez MD [facility] 06/28/2025 8:44:09 AM CDT Anayeli [place] [facility]ED[place] Final Result * (ABNORMAL) Urinalysis reflex to microscopic and culture Urine, indwelling catheter (06/16/2025 9:45AM CDT) Color, ur Yellow Yellow Clarity, ur Cloudy(A) Clear [facility] Specific gravity, ur 1.017 1.003 - 1.030 [facility] LAZAR pH, urine 6.0 [facility] Comment: Interpretive Data U rine pH is affected by diet, medications, systemic acid-base disturbances, and renal tubular function. pH may affect urinary stone formation. For example, urine pH below 6.0 may help reduce the tendency for calcium phosphate stones and pH greater than 6.0 may reduce the tendency for uric acid stone formation. Source: [facility] Current Interpretive Data was last revised on 2017 Protein, ur ql Negative Negative [facility] Glucose, ur ql Negative Negative [facility] Ketones, ur Negative Negative [facility] Bilirubin, ur Negative Negative [facility] Blood, ur Negative Negative [facility] Urobilinogen, ur <2.0 <2.0 mg/dL [facility] Nitrite, ur Positive(A) Negative [facility] Leukocyte esterase, ur 4+(A) Negative [facility] UA reflex comment Reflex to microscopic UA will be performed. [facility] Urine, indwelling catheter 06/16/2025 9:45 AM CDT 06/16/2025 10:20 AM CDT us Preethi Godoy NP LAB MICROBIOLOGY - GENERAL ORDER MANJINDER Final Result Performing Organization Address City/[facility] de Phone Number [address] [employer] [place] [address] * (ABNORMAL) Urinalysis, microscopic only (06/16/2025 9:45 AM CDT) WBC, ur >50(A) 0 - 5 /HPF RBC, ur 0-2 0 - 2 /HPF [facility] Epithelial cells, squamous, ur 1-5 0 - 5 /HPF [facility] Bacteria, ur 4+(A) [facility] Mucous, ur Present(A) [facility] Culture Reflex Comment Reflex to urine culture will be performed. [facility] Urine, indwelling catheter 06/16/2025 9:45 AM CDT 06/16/2025 10:20 AM CDT us Preethi Godoy NP LAB URINE ORDERABLES Final Resul t Performing Organization Address [facility] Co de Phone Number [address] [place] [address] * (ABNORMAL) Urine culture Urine, indwelling catheter (06/16/2025 9:45 AM CDT) Report Final Report: Greater than or equal to 100,000 colonies/mL of Klebsiella pneumoniae (.) Comment:Testing performed by : [facility], [address] [place]., [address] Organism KLEBSIELLA PNEUMONIAE [facility] Urine, indwelling catheter 06/16/2025 9:45 AM CDT 06/16/2025 1:49 PM CDT Narrative [facility] - 06/18/2025 11:45 AM CDT Urine culture reflexed based upon urinalysis results. Testing performed by [facility] Microbiology Laboratory ([phone]) Organism Antibiotic Method Susceptibility Klebsiella pneumoniae Ampicillin INTERPRETATION Resistant Klebsiella pneumoniae Cefazolin INTERPRETATION Susceptible Klebsiella pneumoniae Nitrofurantoin INTERPRETATION Resistant Klebsiella pneumoniae Gentamicin INTERPRETATION Susceptible Klebsiella pneumoniae Trimethoprim with Sulfamethoxazole INTERPRETATION Resistant Klebsiella pneumoniae Meropenem INTERPRETATION Susceptible Klebsiella pneumoniae Cefepime INTERPRETATION Susceptible Klebsiella pneumoniae Ciprofloxacin INTERPRETATION Susceptible Klebsiella pneumoniae Ceftazidime INTERPRETATION Susceptible Klebsiella pneumoniae Ceftriaxone INTERPRETATION Susceptible Klebsiella pneumoniae Piperacillin/Tazobactam INTERPRE TATION Susceptible Klebsiella pneumoniae Cephalexin INTERPRETATION Susceptible Klebsiella pneumoniae Cefuroxime-axetil INTERPRETATION Susceptible Klebsiella pneumoniae Cefdinir INTERPRETATION Susceptible us Preethi Godoy NP LAB MICROBIOLOGY - GENERAL ORDER MANJINDER Final Result [facility] [address] [facility] Department [place] [address] * CT Chest WO Contrast (06/09/2025 11:55 AM CDT) Anatomical Region Laterality Modality Body N/A Computed Tomogra phy 06/15/2025 5:14 AM CDT Narrative 06/15/2025 5:28 AM CDT EXAM DESCRIPTION: CT CHEST WO CONTRAST REASON FOR STUDY: 3 month lymph node follow up 3 mo pulmonary nodule follow up. No sx hx to chest. TECHNIQUE: CT scan of the chest performed without intravenous contrast using helical scanning technique. Reconstructed coronal and sagittal MPR images reviewed. All images stored on PACS. Automated exposure control was used as a dose optimization technique for this examination. COMPARISON: 04/10/2025 FINDINGS: The sensitivity for detection of solid visceral lesions is diminished without the use of intravenous contrast. LUNGS: Central airways are patent. No new consolidations. Right-sided major fissure 0.6 cm noncalcified nodule remains on current image 73 of series 4 unchanged from 04/10/2025. Right lower lobe redemonstrates curvilinear densities extending to regions pleural thickening posteriorly appearing generally similar to previous. Similar though slightly less pronounced changes posteromedial left lung base. Degree of pleural thickening generally similar to previous bilaterally. Subtle regions of pleural calcification redemonstrated suggesting chronic inflammatory change likely. Lingular tree-in-bud nodularity persists unchanged again likely postinflammatory. No new or enlarging nodules or plaques. PLEURA: As above. No new effusions or pneumothorax. MEDIASTINUM/TELMA: Nonenlarged lymph nodes retrocaval pretracheal space, AP window, subcarinal space similar to previous. Retrocrural nonenlarged lymph nodes unchanged. Right pericardiophrenic nonenlarged lymph nodes unchanged. HEART: Heart size is enlarged, more so than previous. No significant pleural effusion. Post sternotomy and CABG changes. CORONARY ARTERY CALCIFICATION: Present VASCULATURE: No thoracic aortic aneurysm. AXILLA: No adenopathy. CHEST WALL: No masses. No subcutaneous air. HARDWARE/LINES/TUBES: None. UPPER ABDOMEN: No significant abnormality. MUSCULOSKELETAL: No significant abnormality. OTHER: No other significant abnormality. IMPRESSION: 1. No change in right-sided major fissure 0.6 cm noncalcified nodule since 04/10/2025. 2. No change in pleural thickening and adjacent parenchymal densities as evidence of chronic inflammatory change. 3. No change in lingular tree-in-bud nodularity likely postinflammatory. 4. No change in nonenlarged lymph nodes in the mediastinum and retrocrural regions. 5. Heart size is enlarged, more so than previous. Pulmonary nodule recommendation: Per Fleischner Society Guidelines, continued additional follow-up at 18-24 months. THIS IS AN ELECTRONICALLY VERIFIED FINAL REPORT 06/15/2025 5:28 AM - Electronically signed by Steven RAJPUT T: Report ID: [id number] Reading Location: [place] [address] Procedure Note Steven Ruano MD - 06/15/2025 EXAM DESCRIPTION: CT CHEST WO CONTRAST REASON FOR STUDY: 3 month lymph node follow up 3 mo pulmonary nodule follow up. No sx hx to chest. TECHNIQUE: CT scan of the chest performed without intravenous contrastusing helical scanning technique. Reconstructed coronal and sagittal MPR images reviewed. All images stored on PACS. Automated exposure control was usedas a dose optimization technique for this examination. COMPARISON: 04/10/2025 FINDINGS: The sensitivity for detection of solid visceral lesions is diminished without the use of intravenous contrast. LUNGS: Central airways are patent. No new consolidations. Right-sided major fissure 0.6 cm noncalcified nodule remains on currentimage 73 of series 4 unchanged from 04/10/2025. Right lower lobe redemonstrates curvilinear densities extending to regions pleural thickening posteriorly appearing generally similar to previous. Similar though slightly less pronounced changes posteromedial left lungbase. Degree of pleural thickening generally similar to previous bilaterally. Subtle regions of pleural calcification redemonstrated suggesting chronic inflammatory change likely. Lingular tree-in-bud nodularity persists unchanged again likely postinflammatory. No new or enlarging nodules or plaques. PLEURA: As above. No new effusions or pneumothorax. MEDIASTINUM/TELMA: Nonenlarged lymph nodes retrocaval pretracheal space,AP window, subcarinal space similar to previous. Retrocrural nonenlargedlymph nodes unchanged. Right pericardiophrenic nonenlarged lymph nodesunchanged. HEART: Heart size is enlarged, more so than previous. No significant pleural effusion. Post sternotomy and CABG changes. CORONARY ARTERY CALCIFICATION: Present VASCULATURE: No thoracic aortic aneurysm. AXILLA: No adenopathy. CHEST WALL: No masses. No subcutaneous air. HARDWARE/LINES/TUBES: None. UPPER ABDOMEN: No significant abnormality. MUSCULOSKELETAL: No significant abnormality. OTHER: No other significant abnormality. IMPRESSION: 1. No change in right-sided major fissure 0.6 cm noncalcified nodulesince 04/10/2025. 2. No change in pleural thickening and adjacent parenchymal densities as evidence of chronic inflammatory change. 3. No change in lingular tree-in-bud nodularity likelypostinflammatory. 4. No change in nonenlarged lymph nodes in the mediastinum andretrocrural regions. 5. Heart size is enlarged, more so than previous. Pulmonary nodule recommendation: Per Fleischner Society Guidelines,continued additional follow-up at 18-24 months. THIS IS AN ELECTRONICALLY VERIFIED FINAL REPORT 06/15/2025 5:28 AM - Electronically signed by Steven Ruano M.D. RB T: Report ID: [id number] Reading Location: [place] [address] us Preethi Godoy PLATE EMBOSSER IMG CT PROCEDURES Final Result * Colonoscopy (10/21/2024 10:56 AM SPECIALTY DEVELOPMENT CONSULTANT) Anatomical Region Laterality Modality Other Narrative Procedure Note Kath Shepherd MD - 10/21/2024 10:56 AM CST [facility] END[facility] Patient Name: Aziza Loya Procedure Date: 10/21/2024 10:56 AM Date of : 1945 Admit Type: Outpatient Age: 79 Gender: Male Attending MD: Kath Shepherd M.D. Room: [facility] ENDOSCOPY ROOM 3 Note Status: Addendum Procedure: Colonoscopy Indications: Disease activity assessment of Crohn's disease ofthe small bowel and colon Referring MD: Christopher EmmanuelNLuidmila Providers: Kath Shepherd M.D., Isabell Bella M.D. [...] The scope was passed under direct vision.The [facility] [id number] endoscope was introducedthrough the anus and [...] signed by Steven RAJPUT T: Report ID: [id number] Reading Location: [place] [address] Procedure Note Steven Ruano MD - 02/24/2024 [...] Steven Ruano M.D. RB T: Report ID: [id number] Reading Location: [place] [address] us Annie TOWNSEND IMG CT PROCEDURES Final [...] Final Result Performing Organization Address City/State/ZIP [place] Phone Number [facility] [address] [place] [address] from Last 3 Months or Most Recently Relevant to Health Maintenance Additional Health Concerns Infection Onset Date Last Indicated MDR gram neg/ESBL 06/27/2025 06/27/2025 Insurance AARP MEDICARE MEDICARE [facility] MEDICARE [facility] MEDICARE [facility] MEDICARE [facility] Advance Directives For more information, please contact: [phone] * LIMITED - No CPR (Latest Code Status on File) Date Activated Date Inactivated Comments 04/15/2025 8:19 PM 04/26/2025 7:23 PM Question Answer Comments Provide aggressive medical m anagement before a full cardiopulmonary arrest occurs. Use antibiotics, IV Fluids, and medical treatment unless specifically selected below: No intubation * Full Code Date Activated Date Inactivated Comments 04/15/2025 4:03 PM 04/15/2025 8:19 PM * Full Code Date Activated Date Inactivated Comments 10/21/2024 10:19 AM 10/21/2024 4:33 PM * Full Code Date Activated Date Inactivated Comments 04/15/2023 9:01 AM 04/15/2023 4:30 PM * Full Code Date Activated Date Inactivated Comments 04/15/2023 8:34 AM 04/15/2023 9:01 AM Care Teams Foundation Director Relationship Specialty Start Date End Date Preethi Godoy NP [address] [facility] 130 [place] [address] PCP - General Family Medicine 08/25/24 Kath Shepherd MD [address] [place] [address] Consulting Physician Gastroenterology 07/22/19 Peter Ya MD [address] [place] [address] Foreign Language Stenographer Cardiology 07/22/19 Aziza Ledesma MD [address] [place] [address] Consulting Physician Neurology 07/22/19 Jeffery Bustillos MD [address] [place] [address] Consulting Physician Cardiovascular Disease 02/06/24 Shimon Schofield MD [facility] [address] [address] Consulting Physician Vascular Surgery 02/06/24 Paulina Gama DPM [address] [facility] [address] [place] [address] Consulting Physician Orthopedic Surgery 05/16/25 Basilio Perry NP [address] [facility] [id number] [place] [address] Nurse Practitioner Nurse Practitioner 06/06/25
--- OUTSIDE RECORDS SUMMARY | 2025-09-05 23:03 | XMS_ITS | Encounter Summary ---
Author Organization [facility] Address [address] [place] [address] Phone Care Team Providers Care Plastics Process Hand Name Role Phone John Kimbrough MD Primary Care Provider Kath Shepherd MD Unavailable [phone] Peter Ya MD Unavailable [phone] Vitaly Ledesma MD Unavailable [phone] Anayeli Lee MD Primary Care Provider Joshua Butterfield MD Unavailable Jeffery Bustillos MD Unavailable [phone] Shimon Schofield MD Unavailable Preethi Godoy NP Primary Care Provider [phone] Steven Ram RN Unavailable [phone] Paulina Gama DPM Unavailable [phone] Basilio Perry NP Unavailable Encounter Details Date Type Department Care Team [...] on file 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 2:24 AM SUGAR CHIPPER 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 Gender Identity Not on file Sexual Orientation Not on file 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 Start 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 [employer] Not on file Not on file Not on file documented as of this encounter Plan of Treatment Upcoming Encounters Date Type Department Care Team (Late st Contact Info) Description 10/10/2025 10:15 AM SUGAR CHIPPER 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 Hospital Encounter [facility] Endoscopy at [address] [address] Kath Shepherd MD [address] [address] 10/10/2025 10:15 AM SUGAR CHIPPER 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 - 10/10/2025 11:00 AM SUGAR CHIPPER 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 Surgery [facility] Endoscopy at [address] [address] Kath Shepherd MD [address] [address] COLONOSCOPY Scheduled Procedures Name Priority Associated Diagnoses Date/Ti me COLONOSCOPY Crohn's disease of both small and large intestine with other complication 10/10/2025 10:15 AM SUGAR CHIPPER 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 documented as of this encounter Procedures Procedure Name Priority Date/Time Associated Diagnosis Comments SCAN - LABS 03/06/2021 documented in this encounter Results * SCAN - LABS (03/06/2021) us Provider Scanning Final Result documented in this encounter Visit Diagnoses Not on filedocumented in this encounter Additional Health Concerns Infection Onset Date Last Indicated Resolved Time COVID: Suspected 08/21/2021 08/21/2021 08/21/2021 11:38 AM SUGAR CHIPPER 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 COVID: Suspected 11/14/2024 11/14/2024 11/14/2024 10:49 AM SUGAR CHIPPER 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 COVID: Suspected 11/14/2024 11/14/2024 11/14/2024 3:33 PM SUGAR CHIPPER 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 RSV, droplet 11/14/2024 11/14/2024 11/21/2024 3:07 AM SUGAR CHIPPER 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 COVID: Suspected 12/30/2024 12/30/2024 12/30/2024 7:54 PM CDT C. difficile suspected 04/17/2025 04/17/202504/17 10:31 AM CDT COVID: Suspected 04/20/2025 04/20/2025 04/20/2025 1:33 PM CDT MDR gram neg/ESBL 06/27/2025 06/27/2025 documented as of this encounter Care Teams Plastics Process Hand Relationship Specialty Start Date End Date John Kimbrough MD PCP - General 11/08/16 07/02/23 Anayeli Lee MD [address] [place] [address] PCP - General Family Medicine 07/03/23 08/24/24 Preethi Godoy NP [address] [address] PCP - General Family Medicine 08/25/24 Kath Shepherd MD [address] [place] [address] Consulting Physician Gastroenterology 07/22/19 Peter Ya MD [address] [place] [address] Manager Corporate Communications Cardiology 07/22/19 Vitaly Ledesma MD [address] [place] [address] Consulting Physician Neurology 07/22/19 Joshua Butterfield MD 6812 [facility] 162 [facility] 200 [place] [address] Consulting Physician Urology 07/03/23 06/05/25 Jeffery Bustillos MD 6810 [facility] 162 [facility] 102 [place] [address] Consulting Physician Cardiovascular Disease 02/06/24 Shimon Schofield MD [address] [facility] 120 [place] [address] Consulting Physician Vascular Surgery 02/06/24 Steven Ram RN 670 [facility] [address] [place] [address] Director Of Pharmacy 04/27/25 06/06/25 Paulina Gama DPM [address] [place] [address] [place] [address] Consulting Physician Orthopedic Surgery 05/16/25 Basilio Perry NP [address] [facility] [id number] [place] [address] Nurse Practitioner Nurse Practitioner 06/06/25 documented as of this encounter
--- OUTSIDE RECORDS SUMMARY | 2025-09-05 23:03 | XMS_ITS | Encounter Summary ---
Author Organization [facility] Address [address] [place] [address] Care Team Providers Care Pediatric Dental Assistant Name Role Phone Kath Shepherd MD Unavailable [phone] Peter aY MD Unavailable [phone] Vitaly Ledesma MD Unavailable [phone] Jeffery Bustillos MD Unavailable [phone] Shimon Schofield MD Unavailable Preethi Godoy NP Primary Care Provider [phone] Paulina Gama DPM Unavailable [phone] Basilio Perry NP Unavailable [phone] Reason for Visit * Reason Onset Date Comments Test Results 08/09/2025 Encounter Details Date Type Department Care Team (Late st Contact Info) Description 08/09/2025 Results Follow-Up [facility] Primary Care at [address] [address] Preethi Godoy, AG EQUIPMENT FIELD SERVICE TECHNICIAN [address] [place] [address] [address] [place] [address] Urinalysis reflex to microscopic and culture Urine, in and out catheter, Urinalysis, microscopic only, CBC with auto differential, Additional followed-up results: 6 Social History Tobacco Use Types Packs/Day Years Used Date Smoking Tobacco: Former Cigarettes 1 29 1 2 - 1990 Smokeless Tobacco: Never Alcohol Use Standard Drinks/Week Comments No 0 (1 standard drink = 0.6 oz pure alcohol) former alcoholic, 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 Patient declined 04/18/2025 Do you belong to any clubs o r organizations such as jain groups, unions, fraternal or athletic groups, or [...] any time in the past 12 m [facility], were you homeless or living in a custodial (including now)? 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 Not on file Not on file documented as of this encounter Functional Status * BP Location Answer Date of Assessment Author Right arm 08/10/2025 4:09 PM SPINNING FRAME CLEANER Margarita Zee MA * BP Location Answer Date of Assessment Author Right arm 08/10/2025 4:09 PM SPINNING FRAME CLEANER Margarita Zee MA documented as of this encounter Ordered Prescriptions Prescription Sig Dispense Quantity Refills Last Filled Start Date End Date amoxicillin-clavul anate (AUGMENTIN) 500-125 mg per tablet Take 1 tablet by mouth 3 (three) times a day for 10 days 30 tablet 08/10/2025 08/20/2025 doxycycline (VIBRAMYCIN) 100 mg capsule Take 1 tablet/capsu le (100 mg total) by mouth 2 (two) times a day for 10 days 20 tablet/capsule 08/10/2025 08/20/2025 documented in this encounter Miscellaneous Notes * Telephone Encounter - Wang Wagner - 08/10/2025 2:53 PM CST Call Back Caller???s Concern: Patient's spouse, Sarah, On HIPAA returned missed call regarding results. Advised per chart notes, verified prescriptions sent to pharmacy. She states patient has had minimal success with the water pill. She will my chart message any questopms Does message need to be routed? Yes-Action Needed NING FRAME CLEANER documented in this encounter Plan of Treatment Upcoming Encounters Date Type Department Care Team (Late st Contact Info) Description 10/10/2025 10:15 AM SPINNING FRAME CLEANER Hospital Encounter [facility] Endoscopy at [facility] [address] [place] [address] Kath Shepherd MD [address] [place] [address] 10/10/2025 10:15 AM SPINNING FRAME CLEANER - 10/10/2025 11:00 AM SPINNING FRAME CLEANER Surgery [facility] Endoscopy at [facility] [address] [place] [address] Kath Shepherd MD [address] [place] [address] COLONOSCOPY Scheduled Procedures Name Priority Associated Diagnoses Date/Ti me COLONOSCOPY Crohn's disease of both small and large intestine with other complication 10/10/2025 10:15 AM SPINNING FRAME CLEANER documented as of this encounter Goals Goal Patient Goal Type Associated Problems Recent Progress Patient-Stated? Author APRIL General Goal - Patient / caregiver verbalizes lifestyle changes necessary to meet self-care needs and executes self-care activities to utmost capability ACO Care Management On track(2024 12:18 PM CDT) Steven Marroquin, RN Note: Problem: At Risk for Self [...] need for assistive devices. - Refer to if appropriate and patient is agreeable. documented as of this encounter Results * (ABNORMAL) Basic metabolic panel (08/22/2025 1:31 PM SPINNING FRAME CLEANER) Sodium 146(H) 135 - 145 mmol/L Potassium, pl 3.8 3.3 - 4.9 mmol/L [facility] Chloride 107 97 - 110 mmol/L [facility] CO2 29 22 - 32 mmol/L [facility] Anion gap 10 2 - 15 mmol/L [facility] BUN 24 6 - 25 mg/dL [facility] Creatinine 2.17(H) 0.80 - 1.30 mg/dL [facility] Glucose 105 70 - 199 mg/dL [facility] Comment: Interpretive Data Fasting glucose >/= [...] 2022. Calcium 8.6 8.5 - 10.3 mg/dL [facility] Blood 08/22/2025 1:31 PM SPINNING FRAME CLEANER 08/22/2025 6:39 PM SPINNING FRAME CLEANER us Preethi Godoy AG EQUIPMENT FIELD SERVICE TECHNICIAN LAB BLOOD ORDERABLES Final Resul t [facility] [address] [facility] Department [place] [address] * (ABNORMAL) Pro B-type natriuretic peptide (08/22/2025 1:31 PM SPINNING FRAME CLEANER) NT-proBNP 1,816(H) <=450 pg/mL Comment: Interpretive Comments: [...] Revised Date: 2018. Blood 08/22/2025 1:31 PM SPINNING FRAME CLEANER 08/22/2025 6:39 PM SPINNING FRAME CLEANER us Preethi Godoy NP LAB BLOOD ORDERABLES Final Resul t Performing Organization Address City/State/ZIP Co ut Phone Number [facility] [address] [facility] Department [place] [address] documented in this encounter Visit Diagnoses Diagnosis New onset of congestive heart failure (HCC)- Primary Crohn's disease of both small and large intestine with other complication- Primary Crohn's disease of both small and large intestine with other complication documented in this encounter Additional Health Concerns Infection Onset Date Last Indicated Resolved Time MDR gram neg/ESBL 06/27/2025 06/27/2025 documented as of this encounter Care Teams Pediatric Dental Assistant Relationship Specialty Start Date End Date Preethi Godoy NP 2 [facility] [address] [place] [address] PCP - General Family Medicine 08/25/24 Kath Shepherd MD [address] [place] [address] Consulting Physician Gastroenterology 07/22/19 Peter Ya MD [address] [place] [address] Sterile Process Coordinator Cardiology 07/22/19 Vitaly Ledesma MD [address] [place] [address] Consulting Physician Neurology 07/22/19 Jeffery Bustillos MD [address] [place] [address] [address] [place] [address] Consulting Physician Cardiovascular Disease 02/06/24 Shimon Schofield MD [facility] [address] [address] Consulting Physician Vascular Surgery 02/06/24 Paulina Gama DPM [address] [place] [address] [address] [place] [address] Consulting Physician Orthopedic Surgery 05/16/25 Basilio Perry NP [address] [facility] [phone] [place] [address] Nurse Practitioner Nurse Practitioner 06/06/25 documented as of this encounter
--- OUTSIDE RECORDS SUMMARY | 2025-09-05 23:03 | XMS_ITS | Encounter Summary ---
Author Organization [facility] Address [address] [facility] [address] [place] [address] Phone Care Team Providers Care Securities And Real Estate Director Name Role Phone Kath Shepherd MD Unavailable Peter Ya MD Unavailable Vitaly Ledesma MD Unavailable Jeffery Bustillos MD Unavailable Shimon Schofield MD Unavailable Preethi Godoy NP Primary Care Provider [phone] Paulina Gama DPM Unavailable [phone] Basilio Perry NP Unavailable [phone] Encounter Details Date Type Department Care Team (Late st Contact Info) Description 08/17/2025 Results Follow-Up [facility] Medicine Physicians [facility] Surgery [address] [place] [address] [address] [place] [address] Kay Epstein MD [address] [facility] [place] [address] Urine culture Urine, bladder Social History Tobacco Use Types Packs/Day Years Used Date Smoking Tobacco: Former Cigarettes 29 1 962 - 1990 Smokeless Tobacco: Never Alcohol Use Standard Drinks/Week Comments No 0 (1 standard drink = 0.6 oz pure alcohol) former alcoholic, 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 Patient declined 04/18/2025 Do you belong to any clubs o r organizations such as hoahaoism groups, unions, fraternal or athletic groups, or [...] any time in the past 12 m [facility], were you homeless or living in a penitentiary (including now)? 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 Not on file Not on file documented as of this encounter Plan of Treatment Upcoming Encounters Date Type Department Care Team (Late st Contact Info) Description 10/10/2025 10:15 AM LEGAL EXECUTIVE ASSISTANT Hospital Encounter [facility] Endoscopy at [address] [address] Kath Shepherd MD [address] [address] 10/10/2025 10:15 AM LEGAL EXECUTIVE ASSISTANT - 10/10/2025 11:00 AM LEGAL EXECUTIVE ASSISTANT Surgery [facility] Endoscopy at [facility] Medicine [address] [place] [address] Kath Shepherd MD [address] [address] COLONOSCOPY Scheduled Procedures Name Priority Associated Diagnoses Date/Ti me COLONOSCOPY Crohn's disease of both small and large intestine with other complication 10/10/2025 10:15 AM LEGAL EXECUTIVE ASSISTANT documented as of this encounter Goals Goal Patient Goal Type Associated Problems Recent Progress Patient-Stated? Author APRIL General Goal - Patient / caregiver verbalizes lifestyle changes necessary to meet self-care needs and executes self-care activities to utmost capability ACO Care Management On track(2024 12:18 PM CDT) Steven Marroquin, TEDDY Note: Problem: At Risk for Self Care [...] SW if appropriate and patient is agreeable. documented as of this encounter Visit Diagnoses Not on filedocumented in this encounter Additional Health Concerns Infection Onset Date Last Indicated Resolved Time MDR gram neg/ESBL 06/27/2025 06/27/2025 documented as of this encounter Care Teams Securities And Real Estate Director Relationship Specialty Start Date End Date Preethi Godoy NP [address] [facility] [address] [place] [address] PCP - General Family Medicine 08/25/24 Kath Shepherd MD [address] [place] [address] Consulting Physician Gastroenterology 07/22/19 Peter Ya MD [address] [place] [address] Brush Fabrication Supervisor Cardiology 07/22/19 Vitaly Ledesma MD [address] [place] [address] Consulting Physician Neurology 07/22/19 Jeffery Bustillos MD [address] [facility] [address] [place] [address] Consulting Physician Cardiovascular Disease 02/06/24 Shimon Schofield MD 4600 [facility] [address] [place] [address] Consulting Physician Vascular Surgery 02/06/24 Paulina Gama DPM 2[address] [facility] 130 [place] [address] Consulting Physician Orthopedic Surgery 05/16/25 Basilio Perry NP [address] [facility] [phone] [place] [address] Nurse Practitioner Nurse Practitioner 06/06/25 documented as of this encounter
--- OUTSIDE RECORDS SUMMARY | 2025-09-05 23:03 | XMS_ITS | Encounter Summary ---
Author Organization [facility] Address [address] [place] [address] Phone Care Team Providers Care Senior Teller Name Role Phone John Kimbrough MD Primary Care Provider Kath Shepherd MD Unavailable [phone] Peter Ya MD Unavailable Vitaly Ledesma MD Unavailable [phone] Anayeli Lee MD Primary Care Provider Joshua Butterfield MD Unavailable Jeffery Bustillos MD Unavailable [phone] Shimon Schofield MD Unavailable Preethi Godoy NP Primary Care Provider [phone] Steven Ram RN Unavailable [phone] Paulina Gama DPM Unavailable [phone] Basilio Perry NP Unavailable Encounter Details Date Type Department Care Team (Late st Contact Info) Description 01/13/2018 Orders Only [facility] ProviderOlive MD [address] [place] [address] Social History Tobacco Use Types Packs/Day Years Used Date Smoking Tobacco: Never Smokeless Tobacco: Never Alcohol Use Standard Drinks/Week Comments No 0 (1 standard drink = 0.6 oz pur e alcohol) Sex and Gender Information Value Date Recorded Sex Assigned at Not on file 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 2:24 AM MANAGER LVN Gender Identity Not on file Sexual Orientation Not on file documented as of this encounter Functional Status documented as of this encounter Plan of Treatment Upcoming Encounters Date Type Department Care Team (Late st Contact Info) Description 10/10/2025 10:15 AM MANAGER LVN Hospital Encounter [facility] Endoscopy at [facility] [address] [place] [address] Kath Shepherd MD [address] [place] [address] 10/10/2025 10:15 AM MANAGER LVN - 10/10/2025 11:00 AM MANAGER LVN Surgery [facility] Endoscopy at [address] [address] Kath Shepherd MD [address] [place] [address] COLONOSCOPY Scheduled Procedures Name Priority Associated Diagnoses Date/Ti me COLONOSCOPY Crohn's disease of both small and large intestine with other complication 10/10/2025 10:15 AM MANAGER LVN documented as of this encounter Procedures Procedure [...] Suspected 08/21/2021 08/21/2021 08/21/2021 11:38 AM MANAGER LVN COVID: Suspected 11/14/2024 11/14/2024 11/14/2024 10:49 AM MANAGER LVN COVID: Suspected 11/14/2024 11/14/2024 11/14/2024 3:33 PM MANAGER LVN RSV, droplet 11/14/2024 11/14/2024 11/21/2024 3:07 AM MANAGER LVN COVID: Suspected 12/30/2024 12/30/2024 12/30/2024 7:54 PM CDT C. difficile suspected 04/17/2025 04/17/202504/17 10:31 AM CDT COVID: Suspected 04/20/2025 04/20/2025 04/20/2025 1:33 PM CDT MDR gram neg/ESBL 06/27/2025 06/27/2025 documented as of this encounter Care Teams Senior Teller Relationship Specialty Start Date End Date John Kimbrough MD PCP - General 11/08/16 07/02/23 Anayeli Lee MD [address] [place] [address] PCP - General Family Medicine 07/03/23 08/24/24 Preethi Godoy NP [address] [address] PCP - General Family Medicine 08/25/24 Kath Shepherd MD [address] [place] [address] Consulting Physician Gastroenterology 07/22/19 Peter Ya MD [address] [place] [address] Stitch Bonder Machine Operator Helper Cardiology 07/22/19 Vitaly Ledesma MD [address] [place] [address] Consulting Physician Neurology 07/22/19 Joshua Butterfield MD [address] [facility] 200 [place] [address] Consulting Physician Urology 07/03/23 06/05/25 Jeffery Bustillos MD [address] [facility] [address] [facility] 102 [place] [address] Consulting Physician Cardiovascular Disease 02/06/24 Shimon Schofield MD 4600 [facility] 120 [place] [address] Consulting Physician Vascular Surgery 02/06/24 Steven Ram RN 670 [facility] [address] [place] [address] Radiation / Chemistry Technician 04/27/25 06/06/25 Paulina Gama DPM [address] [place] [address] [address] [place] [address] Consulting Physician Orthopedic Surgery 05/16/25 Basilio Perry, DONALD [address] [phone] [place] [address] Nurse Practitioner Nurse Practitioner 06/06/25 documented as of this encounter
--- OUTSIDE RECORDS SUMMARY | 2025-09-05 23:03 | XMS_ITS | Encounter Summary ---
Author Organization [facility] Healthcare Address [address] [place] [address] Care Team Providers Care Manager Imaging Name Role Phone Kath Shepherd MD Unavailable [phone] Peter Ya MD Unavailable Vitaly Ledesma MD Unavailable [phone] Jeffery Bustillos MD Unavailable [phone] Shimon Schofield MD Unavailable Preethi Godoy NP Primary Care Provider [phone] Paulina Gama DPM Unavailable [phone] Basilio Perry NP Unavailable [phone] Encounter Details Date Type Department Care Team (Late st Contact Info) Description 08/23/2025 Results Follow-Up 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 Patient declined 04/18/2025 Do you belong to any clubs o r organizations such as yazidi groups, unions, fraternal or athletic groups, or [...] any time in the past 12 m [facility], were you homeless or living in a long-term (including now)? 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 Endoscopy at [facility] [address] [place] [phone] Kath Shepherd MD [address] [address] 10/10/2025 10:15 AM BEVERAGE HOST - 10/10/2025 11:00 AM B[address]OST Surgery [facility] Endoscopy at [facility] [address] [place] [address] Kath Shepherd MD [address] [address] COLONOSCOPY Scheduled Procedures Name Priority Associated Diagnoses Date/Ti me COLONOSCOPY Crohn's disease of both small and large intestine with other complication 10/10/2025 10:15 AM BEVERAGE HOST documented as of this encounter Goals Goal [...] as of this encounter Care Teams Manager Imaging Relationship Specialty Start Date End Date Preethi Godoy NP 2 [facility] 130 [place] [address] PCP - General Family Medicine 08/25/24 Kath Shepherd MD [address] [place] [address] Consulting Physician Gastroenterology 07/22/19 Peter Ya MD [address] [place] [address] Oil Seal Assembler Cardiology 07/22/19 Vitaly Ledesma MD [address] [place] [address] Consulting Physician Neurology 07/22/19 Jeffery Bustillos MD [address] [facility] [address] [facility] 102 [place] [address] Consulting Physician Cardiovascular Disease 02/06/24 Shimon Schofield MD 4600 [facility] 120 [place] [address] Consulting Physician Vascular Surgery 02/06/24 Paulina Gama DPM 2[address] [facility] 130 [place] [address] Consulting Physician Orthopedic Surgery 05/16/25 Basilio Perry NP [address] [phone] [place] [address] Nurse Practitioner Nurse Practitioner 06/06/25 documented as of this encounter
--- OUTSIDE RECORDS SUMMARY | 2025-09-05 23:03 | XMS_ITS | Clinical Summary ---
Author Organization [facility] Address [facility] [place] [address] Care Team Providers Care Wire Harness Design Engineer Name Role Phone Unavailable Primary Care [...]
--- OUTSIDE RECORDS SUMMARY | 2025-09-05 23:03 | XMS_ITS | Encounter Summary ---
Author Organization [facility] Healthcare Address [address] [place] [address] Care Team Providers Care Vacuum Conditioner Operator Name Role Phone Kath Shepherd MD Unavailable [phone] Peter aY MD Unavailable [phone] Vitaly Ledesma MD Unavailable [phone] Jeffery Bustillos MD Unavailable [phone] Shimon Schofield MD Unavailable Preethi Godoy NP Primary Care Provider [phone] Paulina Gama DPM Unavailable [phone] Basilio Perry NP Unavailable [phone] Reason for Visit * Reason Onset Date Comments APRIL Questions 08/04/2025 Encounter Details Date Type Department Care Team (Late st Contact Info) Description 08/04/2025 Telephone [facility] Medical Group Primary Care at [address] [address] Preethi Godoy NP [address] [place] [address] [address] [place] [address] APRIL Questions Social History Tobacco Use Types Packs/Day Years Used Date Smoking Tobacco: Former Cigarettes 1 29 1990 Smokeless Tobacco: Never Alcohol Use Standard Drinks/Week Comments No 0 (1 standard drink = 0.6 oz pure alcohol) former alcoholic, 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 [employer] Not on file Not on file Not on file documented as of this encounter Functional Status * In the past year, patient experienced: Question Answer Date of Assessment Author One or more falls in the las t year 0 08/08/2025 2:36 PM REGIONAL TRAINING MANAGER Galina Alcocer MA * BP Location Answer Date of Assessment Author Right arm 08/10/2025 4:09 PM REGIONAL TRAINING MANAGER Margarita Zee MA * BP Location Answer Date of Assessment Author Right arm 08/10/2025 4:09 PM REGIONAL TRAINING MANAGER Margarita Zee MA documented as of this encounter Miscellaneous Notes * Telephone Encounter - Ronel Alcocer MA - 08/04/2025 4:22 PM REGIONAL TRAINING MANAGER Spoke with Sarah and she stated she had not taken him off any medication that [facility] wanted him to come off of. Sarah is not comfortable with that. She is requesting Preethi go over the medications with them. Patient scheduled for Friday to be seen. Sarah pleased with that. Records requested from [facility] ONAL TRAINING MANAGER * Telephone Encounter - Tammi Nina MA - 08/04/2025 11:53 AM CST APRIL Questions (Message from [facility]Cleaning Custodian): Has patient been discharged at time of call? Yes Date Admitted: 07/26 Date Discharged: 07/28 Facility Admitted To: [facility] Reason for Stay? Medication reaction and APRIL If prescribed new medications, do you have any questions or concerns? No new medication but has concerns about all the medication they took him off of. Do you have enough medication to get you to your follow-up appointment? yes Since being released do you feel better, the same, or worse? better Date of APRIL Appointment: do not have any available in 10 days since released Do you have transportation to the appointment? yes Additional Comments: has concerns of the medication that they took him off of and want to make surethat is right. Sarah (pt ) she said it has a lift of medications to take Vitaly off medication and she is not taking him off the medication until Tells them to. Does message need to be routed? Yes-Action Needed ONAL TRAINING MANAGER documented in this encounter Plan of Treatment Upcoming Encounters Date Type Department Care Team (Late st Contact Info) Description 10/10/2025 10:15 AM REGIONAL TRAINING MANAGER Hospital Encounter [facility] Endoscopy at [facility] [address] [place] [address] Kath Shepherd MD [address] [address] 10/10/2025 10:15 AM REGIONAL TRAINING MANAGER - 10/10/2025 11:00 AM REGIONAL TRAINING MANAGER Surgery [facility] Endoscopy at [facility] [address] [place] [address] Kath Shepherd MD [address] [address] COLONOSCOPY Scheduled Procedures Name Priority Associated Diagnoses Date/Ti me COLONOSCOPY Crohn's disease of both small and large intestine with other complication 10/10/2025 10:15 AM REGIONAL TRAINING MANAGER documented as of this encounter Goals Goal [...] documented as of this encounter Care Teams Vacuum Conditioner Operator Relationship Specialty Start Date End Date Preethi Godoy SUPERVISOR CELL ROOM [address] [facility] [place] [address] PCP - General Family Medicine 08/25/24 Kath Shepherd MD [address] [place] [address] Consulting Physician Gastroenterology 07/22/19 Peter Ya MD [address] [place] [address] Casting Operator Cardiology 07/22/19 Vitaly Ledesma MD [address] [place] [address] Consulting Physician Neurology 07/22/19 Jeffery Bustillos MD [address] [facility] [address] [facility] 102 [place] [address] Consulting Physician Cardiovascular Disease 02/06/24 Shimon Schofield MD 4600 [facility] 120 [place] [address] Consulting Physician Vascular Surgery 02/06/24 Paulina Gama DPM [address] [facility] 130 [place] [address] Consulting Physician Orthopedic Surgery 05/16/25 Basilio Perry NP [address] [phone] [place] [address] Nurse Practitioner Nurse Practitioner 06/06/25 documented as of this encounter
--- OUTSIDE RECORDS SUMMARY | 2025-09-05 23:03 | XMS_ITS | Encounter Summary ---
Author Organization [facility] Healthcare Address [address] [place] [address] Care Team Providers Care Driving Instructor Name Role Phone Kath Shepherd MD Unavailable [phone] Peter Ya MD Unavailable [phone] Vitaly Ledesma MD Unavailable [phone] Jeffery Bustillos MD Unavailable [phone] Shimon Schofield MD Unavailable Preethi Godoy NP Primary Care Provider [phone] Paulina Gama DPM Unavailable [phone] Basilio Perry NP Unavailable [phone] Encounter Details Date Type Department Care Team (Late st Contact Info) Description 07/29/2025 Results Follow-Up [facility] Medical Group Convenient Care at [address] [address] Gladys Valdovinos NP [address] [place] [address] [address] [place] [address] Urine culture Urine, clean voided Social History Tobacco Use Types Packs/Day Years Used Date Smoking Tobacco: Former Cigarettes 1990 Smokeless Tobacco: Never Alcohol Use Standard Drinks/Week Comments No 0 (1 standard drink = 0.6 oz pure alcohol) former alcoholic, 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 Patient declined 04/18/2025 Do you belong to any clubs o r organizations such as tenriism groups, unions, fraternal or athletic groups, or [...] points, staff should administer the PHQ-9) 0 06/06/2025 Hunger Vital Sign Answer Date Recorded Within [...] any time in the past 12 m [facility], were you homeless or living in a retirement (including now)? 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 Endoscopy at [facility] [address] [place] [address] Kath Shepherd MD [address] [address] 10/10/2025 10:15 AM VERIFIER OPERATOR - 10/10/2025 11:00 AM VERIFIER OPERATOR Surgery [facility] Endoscopy at [facility] [address] [place] [address] Kath Shepherd MD [address] [address] COLONOSCOPY Scheduled Procedures Name Priority Associated Diagnoses Date/Ti me COLONOSCOPY Crohn's disease of both small and large intestine with other complication 10/10/2025 10:15 AM VERIFIER OPERATOR documented as of this encounter Goals Goal [...] documented as of this encounter Care Teams Driving Instructor Relationship Specialty Start Date End Date Preethi Godoy NP 2121 [facility] [address] [place] [address] PCP - General Family Medicine 08/25/24 Kath Shepherd MD [address] [place] [address] Consulting Physician Gastroenterology 07/22/19 Peter Ya MD [address] [place] [address] Internet Marketing Specialist Cardiology 07/22/19 Vitaly Ledesma MD [address] [place] [address] Consulting Physician Neurology 07/22/19 Jeffery Bustillos MD [address] [facility] 102 [place], [place] [address] Consulting Physician Cardiovascular Disease 02/06/24 Shimon Schofield MD 4600 [facility] 120 [place] [address] Consulting Physician Vascular Surgery 02/06/24 Paulina Gama DPM [address] [address] Consulting Physician Orthopedic Surgery 05/16/25 Basilio Perry NP [address] [phone] [place] [address] Nurse Practitioner Nurse Practitioner 06/06/25 documented as of this encounter
--- OUTSIDE RECORDS SUMMARY | 2025-09-05 23:04 | XMS_ITS | Encounter Summary ---
Author Organization [facility] Address [address] [place] [address] Care Team Providers Care Quill Picking Machine Operator Name Role Phone John Kimbrough MD Primary Care Provider Kath Shepherd MD Unavailable [phone] Peter Ya MD Unavailable Vitaly Ledesma MD Unavailable Anayeli Lee MD Primary Care Provider Joshua Butterfield MD Unavailable [phone] Jeffery Bustillos MD Unavailable [phone] Shimon Schofield MD Unavailable Preethi Godoy NP Primary Care Provider [phone] Steven Ram RN Unavailable Paulina Gama DPM Unavailable [phone] Basilio Perry NP Unavailable [phone] Encounter Details Date Type Department Care Team (Late st Contact Info) Description 03/26/2019 Documentation [facility] [address] [place] [address] Kaykay Jason, RN Social History Tobacco Use Types Packs/Day Years Used Date Smoking Tobacco: Former Smokeless Tobacco: Never Alcohol Use Standard Drinks/Week Comments No 0 (1 standard drink = 0.6 oz pur e alcohol) Sex and Gender Information Value Date Recorded Sex Assigned at Not on file 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 2:24 AM QUALITY CONTROLLER Gender Identity Not on file Sexual Orientation Not on file documented as of this encounter Functional Status * Apple Fall Risk Question Answer Date of Assessment Author History of Falling 0 03/26/2019 9:47 AM CDT Nia Yi Secondary Diagnosis 0 03/26/2019 9:47 AM CD T Nia Yi Ambulatory Aids 0 03/26/2019 9:47 AM CDT Ri Nia yuen Intravenous Therapy/Heparin/ Saline Lock 20 03/26/2019 9:47 AM CDT Nia Yi Gait/Transferring 0 03/26/2019 9:47 AM CDT Nia Yi Mental Status 0 03/26/2019 9:47 AM CDT Nia Yi * Johnie Scale Question Answer Date of Assessment Author Sensory Perceptions 4 03/26/2019 9:55 AM CD T Nia Yi Moisture 4 03/26/2019 9:55 AM CDT Nia Yi Activity 4 03/26/2019 9:55 AM CDT Nia Yi Mobility 4 03/26/2019 9:55 AM CDT Nia Yi Nutrition 3 03/26/2019 9:55 AM THOMAST Nia Yi Friction and Shear 3 03/26/2019 9:55 AM CDT Nia Yi Johnie Scale Score 22 03/26/2019 9:55 AM CDT Nia Yi * Fall Risk Interventions Question Answer Date of Assessment Author All Low Fall Interventions Applied Yes 2018 9:47 AM Nia Durbin * Integumentary Question Answer Date of Assessment Author Integumentary (WDL) WDL 03/26/2019 9:55 AM CD T Nia Yi * Fall Risk Interventions Question Answer Date of Assessment Author All Low Fall Interventions Applied Yes 2018 9:47 AM Nia Durbin * ADL Screening Question Answer Date of Assessment Author Patient's Vision Adequate to Safely Complete Daily Activities Yes 03/26/2019 9:45 AM CDT Nia Yi Patient's Judgement Adequate to Safely Complete Daily Activities Yes 03/26/2019 9:45 AM Sherif Durbin Patient's Memory Adequate to Safely Complete Daily Activities Yes 03/26/2019 9:45 AM Nia Durbin Patient Able to Express Needs/Desires Yes 03/26/2019 9:45 AM Nia Durbin Dressing Independent 03/26/2019 9:45 AM Nia Durbin Grooming Independent 03/26/2019 9:45 AM Nia Durbin Feeding Independent 03/26/2019 9:45 AM Nia Durbin Bathing Independent 03/26/2019 9:45 AM Nia Durbin Toileting Independent 03/26/2019 9:45 AM Nia Durbin In/Out Bed Independent 03/26/2019 9:45 AM Nia Durbin Walks in Home Independent 03/26/2019 9:45 AM Nia Durbin Weakness of Legs None 03/26/2019 9:45 AM RIKA R iceNia Weakness of Arms/Hands None 03/26/2019 9:45 AM Nia Durbin Hearing - Right Ear Hard of hearing 03/26/2019 9:45 AM Nia Durbin Hearing - Left Ear Hearing aid 03/26/2019 9:45 AM Nia Durbin Dominant hand? Right 03/26/2019 9:45 AM RIKA Naun eNia Decline in ADLs in last 2 weeks? No 03/26/2019 9:45 AM Nia Durbin * Therapy Consults Question Answer Date of Assessment Author PT Evaluation Needed 2 03/26/2019 9:45 AM Nia Loyd OT Evaluation Needed 2 03/26/2019 9:45 AM Nia Loyd AMBULANCE DRIVER Evaluation Needed 2 03/26/2019 9:45 AM Nia Durbin * Assistive Devices Question Answer Date of Assessment Author Assistive Devices/DME None 03/26/2019 9:45 AM Nia Durbin documented as of this encounter Mental Status * Neuro (WDL) Answer Entry Date Author THAIS 03/26/2019 9:55 AM CDT Rodolfo iY documented in this encounter Plan of Treatment Upcoming Encounters Date Type Department Care Team (Late st Contact Info) Description 10/10/2025 10:15 AM QUALITY CONTROLLER Hospital Encounter [facility] at [facility] [address] [place] [phone] Kath Shepherd MD [address] [address] 10/10/2025 10:15 AM QUALITY CONTROLLER - 10/10/2025 11:00 AM QUALITY CONTROLLER Surgery [facility] at [address] [phone] Kath Shepherd MD [address] [place] [address] COLONOSCOPY Scheduled Procedures Name Priority Associated Diagnoses Date/Ti me COLONOSCOPY Crohn's disease of both small and large intestine with other complication 10/10/2025 10:15 AM QUALITY CONTROLLER documented as of this encounter Visit Diagnoses Not on filedocumented in this encounter Additional Health Concerns Infection Onset Date Last Indicated Resolved Time COVID: Suspected 08/21/2021 08/21/2021 08/21/2021 11:38 AM QUALITY CONTROLLER COVID: Suspected 11/14/2024 11/14/2024 11/14/2024 10:49 AM QUALITY CONTROLLER COVID: Suspected 11/14/2024 11/14/2024 11/14/2024 3:33 PM QUALITY CONTROLLER RSV, droplet 11/14/2024 11/14/2024 11/21/2024 3:07 AM QUALITY CONTROLLER COVID: Suspected 12/30/2024 12/30/2024 12/30/2024 7:54 PM CDT C. difficile suspected 04/17/2025 04/17/202504/17 10:31 AM CDT COVID: Suspected 04/20/2025 04/20/2025 04/20/2025 1:33 PM CDT MDR gram neg/ESBL 06/27/2025 06/27/2025 documented as of this encounter Care Teams Quill Picking Machine Operator Relationship Specialty Start Date End Date John Kimbrough MD PCP - General 11/08/16 07/02/23 Anayeli Lee MD [address] [place] [address] PCP - General Family Medicine 07/03/23 08/24/24 Preethi Godoy BEEF CATTLE SPECIALIST [address] [facility] [address] [place] [address] PCP - General Family Medicine 08/25/24 Kath Shepherd MD [address] [place] [address] Consulting Physician Gastroenterology 07/22/19 Peter Ya MD [address] [place] [address] Payroll Analyst Cardiology 07/22/19 Vitaly Ledesma MD [address] [place] [address] Consulting Physician Neurology 07/22/19 Joshua Butterfield MD [address] [place] [address] Consulting Physician Urology 07/03/23 06/05/25 Jeffery Bustillos MD [address] [place] [address] Consulting Physician Cardiovascular Disease 02/06/24 Shimon Schofield MD [address] [facility] [address] [place] [address] Consulting Physician Vascular Surgery 02/06/24 Steven Ram, RN [address] [facility] [address] [place] [address] E Commerce Marketing Manager 04/27/25 06/06/25 Paulina Gama DPM [address] [facility] [address] [place] [address] Consulting Physician Orthopedic Surgery 05/16/25 Basilio Perry, DONALD [address] [phone] [place] [address] Nurse Practitioner Nurse Practitioner 06/06/25 documented as of this encounter
--- OUTSIDE RECORDS SUMMARY | 2025-09-05 23:04 | XMS_ITS | Encounter Summary ---
Author Organization [facility] Address [address] [place] [address] Phone Care Team Providers Care Supervisor Order Takers Name Role Phone John Kimbrough MD Primary Care Provider Kath Shepherd MD Unavailable Peter Ya MD Unavailable Vitaly Ledesma MD Unavailable [phone] Anayeli Lee MD Primary Care Provider Joshua Butterfield MD Unavailable Jeffery Bustillos MD Unavailable Shimon Schofield MD Unavailable Preethi Godoy NP Primary Care Provider [phone] Steven Ram RN Unavailable [phone] Paulina Gama DPM Unavailable [phone] Basilio Perry NP Unavailable Encounter Details Date Type Department Care Team (Late st Contact Info) Description 02/03/2020 Telephone [facility] G[facility]ology [address] [facility] 8th [place] [address] [place] [address] Sherie Yoo, [facility] Social History Tobacco Use Types Packs/Day Years Used Date Smoking Tobacco: Former Smokeless Tobacco: Never Alcohol Use Standard Drinks/Week Comments No 0 (1 standard drink = 0.6 oz pur e alcohol) Sex and Gender Information Value Date Recorded Sex Assigned at Not on file 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 NET DEVELOPER Gender Identity Not on file Sexual Orientation Not on file documented as of this encounter Plan of Treatment Upcoming Encounters Date Type Department Care Team (Late st Contact Info) Description 10/10/2025 10:15 AM SENIOR NET DEVELOPER Hospital Encounter [facility] Endoscopy at [address] [phone] Kath Shepherd MD [address] [address] 10/10/2025 10:15 AM SENIOR NET DEVELOPER - 10/10/2025 11:00 AM SENIOR NET DEVELOPER Surgery [facility] Endoscopy at [address] [phone] Kath Shepherd MD [address] [address] COLONOSCOPY Scheduled Procedures Name Priority Associated Diagnoses Date/Ti me COLONOSCOPY Crohn's disease of both small and large intestine with other complication 10/10/2025 10:15 AM SENIOR NET DEVELOPER documented as of this encounter Visit Diagnoses Not on filedocumented in this encounter Additional Health Concerns Infection Onset Date Last Indicated Resolved Time COVID: Suspected 08/21/2021 08/21/2021 08/21/2021 11:38 AM SENIOR NET DEVELOPER COVID: Suspected 11/14/2024 11/14/2024 11/14/2024 10:49 AM SENIOR NET DEVELOPER COVID: Suspected 11/14/2024 11/14/2024 11/14/2024 3:33 PM SENIOR NET DEVELOPER RSV, droplet 11/14/2024 11/14/2024 11/21/2024 3:07 AM SENIOR NET DEVELOPER COVID: Suspected 12/30/2024 12/30/2024 12/30/2024 7:54 PM CDT C. difficile suspected 04/17/2025 04/17/202504/17 10:31 AM CDT COVID: Suspected 04/20/2025 04/20/2025 04/20/2025 1:33 PM CDT MDR gram neg/ESBL 06/27/2025 06/27/2025 documented as of this encounter Care Teams Supervisor Order Takers Relationship Specialty Start Date End Date John Kimbrough MD PCP - General 11/08/16 07/02/23 Anayeli Lee MD [address] [place] [address] PCP - General Family Medicine 07/03/23 08/24/24 Preethi Godoy CUSTOMER AGENT [address] [facility] [address] [place] [address] PCP - General Family Medicine 08/25/24 Kath Shepherd MD [address] [place] [address] Consulting Physician Gastroenterology 07/22/19 Peter Ya MD [address] [place] [address] Furniture Dipper Cardiology 07/22/19 Vitaly Ledesma MD [address] [place] [address] Consulting Physician Neurology 07/22/19 Joshua Butterfield MD [address] [place] [address] Consulting Physician Urology 07/03/23 06/05/25 Jeffery Bustillos MD [address] [facility] [address] [place] [address] Consulting Physician Cardiovascular Disease 02/06/24 Shimon Schofield MD [address] [facility] [address] [place] [address] Consulting Physician Vascular Surgery 02/06/24 Steven Ram RN [address] [facility] [address] [place] [address] Assembler Seat 04/27/25 06/06/25 Paulina Gama DPM [address] [place] [address] [address] [place] [address] Consulting Physician Orthopedic Surgery 05/16/25 Basilio Perry, DONALD [address] [phone] [place] [address] Nurse Practitioner Nurse Practitioner 06/06/25 documented as of this encounter
--- OUTSIDE RECORDS SUMMARY | 2025-09-05 23:04 | XMS_ITS | Encounter Summary ---
Author Organization [facility] Address [address] [place] [address] Phone Care Team Providers Care Reducing Machine Operator Name Role Phone John Kimbrough MD Primary Care Provider Kath Shepherd MD Unavailable Peter Ya MD Unavailable Vitaly Ledesma MD Unavailable [phone] Anayeli Lee MD Primary Care Provider Joshua Butterfield MD Unavailable Jeffery Bustillos MD Unavailable Shimon Schofield MD Unavailable Preethi Godoy NP Primary Care Provider [phone] Steven Ram RN Unavailable [phone] Paulina GamaM Unavailable Basilio Perry NP Unavailable Encounter Details Date Type Department Care Team (Late st Contact Info) Description 08/21/2021 Telephone [facility] Medicine Oncology [address] [facility] [address] [place] [address] Maribel Shore CPhT Social History Tobacco Use [...] file 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 2:24 AM RESPIRATORY CLINICIAN Gender Identity Not on file Sexual Orientation Not on file 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 Start Date Job End Date 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 [employer] Not on file Not on file Not on file documented as of this encounter Functional Status * BP Location Answer Date of Assessment Author Left arm 08/21/2021 11:07 AM RESPIRATORY CLINICIAN Love Yoo MA * Question Answer Date of Assessment Author Skin Condition/Temp Warm;Dry 08/22/2021 11:34 AM Wagner Melendez RN * BP Location Answer Date of Assessment Author Left arm 08/21/2021 11:07 AM RESPIRATORY CLINICIAN Love Yoo MA documented as of this encounter Plan of Treatment Upcoming Encounters Date Type Department Care Team (Late st Contact Info) Description 10/10/2025 10:15 AM RESPIRATORY CLINICIAN Hospital Encounter [facility] Endoscopy at [facility] [address] [phone] Kath Shepherd MD [address] [address] 10/10/2025 10:15 AM RESPIRATORY CLINICIAN - 10/10/2025 11:00 AM RESPIRATORY CLINICIAN Surgery [facility] Endoscopy at [facility] [address] [place] [phone] Kath Shepherd MD [address] [address] COLONOSCOPY Scheduled Procedures Name Priority Associated Diagnoses Date/Ti me COLONOSCOPY Crohn's disease of both small and large intestine with other complication 10/10/2025 10:15 AM RESPIRATORY CLINICIAN documented as of this encounter Visit Diagnoses Not on filedocumented in this encounter Additional Health Concerns Infection Onset Date Last Indicated Resolved Time COVID: Suspected 08/21/2021 08/21/2021 08/21/2021 11:38 AM RESPIRATORY CLINICIAN COVID: Suspected 11/14/2024 11/14/2024 11/14/2024 10:49 AM RESPIRATORY CLINICIAN COVID: Suspected 11/14/2024 11/14/2024 11/14/2024 3:33 PM RESPIRATORY CLINICIAN RSV, droplet 11/14/2024 11/14/2024 11/21/2024 3:07 AM RESPIRATORY CLINICIAN COVID: Suspected 12/30/2024 12/30/2024 12/30/2024 7:54 PM CDT C. difficile suspected 04/17/2025 04/17/202504/17 10:31 AM CDT COVID: Suspected 04/20/2025 04/20/2025 04/20/2025 1:33 PM CDT MDR gram neg/ESBL 06/27/2025 06/27/2025 documented as of this encounter Care Teams Reducing Machine Operator Relationship Specialty Start Date End Date John Kimbrough MD PCP - General 11/08/16 07/02/23 Anayeli Lee MD [address] [place] [address] PCP - General Family Medicine 07/03/23 08/24/24 Preethi Godoy HAIRSPRING ADJUSTER [address] [address] PCP - General Family Medicine 08/25/24 Kath Shepherd MD [address] [place] [address] Consulting Physician Gastroenterology 07/22/19 Peter Ya MD [address] [place] [address] Spice Cleaner Cardiology 07/22/19 Vitaly Ledesma MD [address] [place] [address] Consulting Physician Neurology 07/22/19 Joshua Butterfield MD [address] [place] [address] Consulting Physician Urology 07/03/23 06/05/25 Jeffery Bustillos MD [address] [facility] [address] [place] [address] Consulting Physician Cardiovascular Disease 02/06/24 Shimon Schofield MD [address] [address] Consulting Physician Vascular Surgery 02/06/24 Steven Ram, TEDDY [address] [place] [address] [address] [place] [address] Diving Judge 04/27/25 06/06/25 Paulina Gama DPM [address] [place] [address] [address] [place] [address] Consulting Physician Orthopedic Surgery 05/16/25 Basilio Perry NP [address] [facility] [phone] [place] [address] Nurse Practitioner Nurse Practitioner 06/06/25 documented as of this encounter
--- NOTE | 2025-09-05 23:34 | ECG_ITS ---
Test Date: 2025-09-05 23:37:40 Measurements Intervals [place] Rate: 168 P: 0 ND: 0 QRS: 78 QRSD: 90 T: 47 QT: 261 QTc: 437 Interpretive Statements ATRIAL FIBRILLATION WITH RAPID VENTRICULAR RESPONSE NONSPECIFIC ST & T-WAVE ABNORMALITY- ANTEROLATERAL LEADS BASELINE ARTIFACT- I, II, III, AVR, AVL, AVF, V1, V4-V6 ABNORMAL ECG Compared to ECG 07/26/2025 06:30:42 HEART RATE HAS INCREASED Electronically Signed On 09-06-2025 05:56:10 SLAB OFF MILL TENDER by Yared Martinez D.O.
[2025-09-05] MEDS: SODIUM CHLORIDE 0.9% IV 1,000 ML 999 ML IV CONT (23:54)
--- NOTE | 2025-09-05 23:54 | ED.FEVER ---
HPI - Fever General Chief Complaint: Fever <Renea Osborne APRN - Last Filed: 09/06/25 03:46> Stated Complaint: Fever x 2D, lethargic <Renea Osborne APRN - Last Filed: 09/06/25 03:46> Time Seen by Provider: 09/05/25 22:17 <Renea Osborne APRN - Last Filed: 09/06/25 03:46> History of Present Illness HPI Narrative: Patient is a 80-year-old male presents to the ER with altered mental status. He is unable to provide a medical history of time of examination. His reports he saw his neurologist today due to a history of dementia. Patient's reports this evening he started ?trembling and shaking. She reports he has also had an intermittent cough. Patient's medical record indicates he has a history of Alzheimer's disease, congestive heart failure, atrial fibrillation, Crohn's disease and seizures. She reports he has recently been taken off many of his regular medications. At time of examination patient denies any pain. <Renea Osborne APRN - Last Filed: 09/06/25 03:46> Related Data Home Medications: Home Medications ?Medication ?Instructions ?Recorded ?Confirmed ?Last Taken ?Type allopurinol 100 mg tablet 100 mg PO HS 11/08/23 09/05/25 07/25/25 History aspirin 81 mg tablet 81 mg PO DAILY 11/08/23 09/05/25 07/25/25 History atorvastatin 10 mg tablet 10 mg PO QPM 11/08/23 09/05/25 07/25/25 History cilostazol 100 mg tablet 100 mg PO HS 11/08/23 09/05/25 07/25/25 History ferrous sulfate 325 mg (65 mg 325 mg PO DAILY@0800 11/28/24 09/05/25 07/25/25 History iron) tablet (FeroSul) escitalopram oxalate 20 mg tablet 20 mg PO HS 01/04/25 09/05/25 07/25/25 History loperamide 2 mg capsule 2 mg PO Q1-3H PRN loose stool 01/05/25 09/05/25 07/25/25 History (Anti-Diarrheal (loperamide)) cyanocobalamin (vitamin B-12) 1,000 mcg IM MONTHLY 04/14/25 09/05/25 07/25/25 History 1,000 mcg/mL injection solution donepezil 10 mg tablet 10 mg PO DAILY 09/05/25 09/05/25 Unknown History furosemide 40 mg tablet 20 mg PO DAILY 09/05/25 09/05/25 Unknown History lactobacillus combination no.9 4 4,000 mmu cells PO DAILY 09/05/25 09/05/25 Unknown History billion cell capsule (Adult 50 Plus Probiotic) risankizumab-rzaa 150 mg/mL 150 mg subcut ONCE 09/05/25 09/05/25 Unknown History subcutaneous pen injector (Skyrizi) ubidecarenone-omega 3-vit E 25 1 cap PO DAILY 09/05/25 09/05/25 Unknown History mg-150 (90-60) mg-200 unit capsule (Co U-38-Bqwsrob E-Fish Oil) <Renea Osborne APRN - Last Filed: 09/06/25 03:46> Allergies/Adverse Reactions: Allergies Allergy/AdvReac Type Severity Reaction Status Date / Time No Known Allergies Allergy Verified 09/06/25 00:12 <Renea Osborne APRN - Last Filed: 09/06/25 03:46> Review of Systems Review of Systems: All systems reviewed & are unremarkable except as noted in HPI and below <Renea Osborne APRN - Last Filed: 09/06/25 03:46> PMFSH Past Medical History Medical History: Medical History 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 Intermittent self-catheterization of bladder Cardiomyopathy Recurrent incisional hernia Atrial fibrillation with RVR Heart failure Systolic heart failure with EF of 40-45%, severe biatrial enlargement, moderate mitral and tricuspid regurgitation, reduced right ventricular systolic function, indeterminate diastolic function Chronic anemia Vascular dementia Seizures B12 deficiency Depression Gout Osteoarthritis Iron deficiency anemia Benign prostatic hyperplasia Kidney stones Chronic kidney disease, stage 3 Crohn's disease Hyperlipidemia Hypertension Peripheral vascular disease Coronary artery disease <Renea Osborne APRN - Last Filed: 09/06/25 03:46> Surgical History Surgical History: Surgical History History of amputation of left fourth toe S/P CABG (coronary artery bypass graft) History of bilateral cataract extraction History of lithotripsy History of partial colectomy X2 for to bowel obstructions and fistula secondary to Crohn's disease. History of cholecystectomy History of vascular surgery Bilateral lower extremity stents. History of coronary artery bypass graft <Renea Osborne APRN - Last Filed: 09/06/25 03:46> Family History Family History: Family History Father Myocardial infarct Cerebrovascular accident Mother Breast cancer Sibling Crohn's disease <Renea Osborne APRN - Last Filed: 09/06/25 03:46> Social History Social History: Social History Social History: Surrogate decision maker: Sarah Oreilly, spouse. Code status: Do not resuscitate. Smoking packs per day: 2 Smoking cigarettes per day: 40.0 Years smoked: 25 Smoking pack-years: 50.00 Smoking status: Former smoker Second hand tobacco smoke exposure: No Alcohol intake: former Substance use: never Substance use type: does not use Lack of Transportation: No Lack of Food: Never True Current Housing: I Have Housing Concerned About Future Housing: No Difficulty Paying Gas/Electric Bills: No Difficulty Paying for Meds: No Currently Unemployed: No Education: High School Diploma/GED Difficulty w/ Childcare or Family Care: No Additional living arrangements comments: The patient lives with his in [place]. Additional occupation/education comments: Retired from [employer]. Spiritual care concerns: No <Renea Osborne APRN - Last Filed: 09/06/25 03:46> Exam Narrative: GENERAL: Ill appearing, malnourished, non-toxic, in no acute distress. HEAD: Normocephalic, atraumatic. NECK: Supple. No adenopathy, no masses. RESPIRATORY: Airway patent, respirations nonlabored. Clear to auscultation bilaterally, no rales, rhonchi, wheezing. CARDIOVASCULAR: Fast irregular heart rate. Peripheral pulses 2+ and equal bilaterally. ABDOMINAL: Hard, nontender, distended. Normoactive BS. MUSCULOSKELETAL: Moves all extremities. Strength/ROM intact without gross deformities. SKIN: Warm, dry, normal color. No rashes. NEURO: A&O X 0. Unable to carry a conversation. <Renea Osborne APRN - Last Filed: 09/06/25 03:46> Course CLOTH NEUTRALIZER/PA Physician Supervision This visit was performed by both a physician and an Advanced Practice Provider. I performed all aspects of the Medical Decision Making as documented. <Federico Stokes MD - Last Filed: 09/06/25 06:06> Vital Signs Vital signs: Vital Signs Pulse Rate 66 09/05/25 22:07 Respiratory Rate 18 09/05/25 22:07 Blood Pressure 140/105 H 09/05/25 22:07 Pulse Oximetry 97 09/05/25 22:07 Oxygen Delivery Room Air 09/05/25 22:07 Temperature 38.3 C H 09/06/25 05:30 Pulse Rate 103 H 09/06/25 05:30 Respiratory Rate 33 H 09/06/25 05:30 Blood Pressure 98/56 L 09/06/25 05:30 Pulse Oximetry 97 09/06/25 05:30 Oxygen Delivery Nasal Cannula 09/06/25 00:42 Oxygen Flow Rate 2 09/06/25 00:42 <Renea Osborne BESSEMER CONVERTER OPERATOR - Last Filed: 09/06/25 03:46> Vital Signs Pulse Rate 66 09/05/25 22:07 Respiratory Rate 18 09/05/25 22:07 Blood Pressure 140/105 H 09/05/25 22:07 Pulse Oximetry 97 09/05/25 22:07 Oxygen Delivery Room Air 09/05/25 22:07 Temperature 38.3 C H 09/06/25 05:30 Pulse Rate 103 H 09/06/25 05:30 Respiratory Rate 33 H 09/06/25 05:30 Blood Pressure 98/56 L 09/06/25 05:30 Pulse Oximetry 97 09/06/25 05:30 Oxygen Delivery Nasal Cannula 09/06/25 00:42 Oxygen Flow Rate 2 09/06/25 00:42 <Federico Stokes MD - Last Filed: 09/06/25 06:06> [facility] MDM Narrative Medical decision making narrative: Patient is a 80-year-old male presents to the ER with altered mental status. He is unable to provide a medical history of time of examination. His reports he saw his neurologist today due to a history of dementia. Patient's reports this evening he started ?trembling and shaking. She reports he has also had an intermittent cough. Patient's medical record indicates he has a history of Alzheimer's disease, congestive heart failure, atrial fibrillation, Crohn's disease and seizures. She reports he has recently been taken off many of his regular medications. At time of examination patient denies any pain. * patient is requiring 2 L nasal cannula to maintain oxygen saturations above 90%. Labs Ordered: CBC, CMP, proBNP, troponin, ethanol, CK, UA, CRP, COVID/flu/RSV, PTT, INR Imaging Ordered: CTA chest PE abdomen pelvis, chest x-ray, CT head Medications Ordered: 1 L normal saline IV bolus, diltiazem 10 mg push, Rocephin IV, azithromycin IV, diltiazem drip Results: Patient's CT head indicates no acute intracranial hemorrhage. Atrophy. Nonspecific white matter disease. Findings appear similar to previous exam of 11/28/2024. Patient's chest x-ray indicates right lower lobe consolidation. Possible scattered patchy bilateral airspace disease. Patient's CTA chest indicates the thoracic aorta is moderately calcified but nondilated. There are no aneurysm or dissection. The pulmonary arterial tree is adequately 0 paste side with contrast. No pulmonary embolism is identified. Previous CABG. The heart is moderately enlarged. No pericardial effusion is seen. No mediastinal or axillary lymphadenopathy or mass. Central bronchial wall thickening, greatest in the lower lobes. There is a bronchial plugging in both lower lobes and scattered bibasilar infiltrates suspicious for pneumonia. This is slightly worse on the right than the left. No pneumothorax is seen. Trace right pleural effusion measuring less than 1 cm. Mild multilevel osteophytosis throughout the thoracic spine with partial ankylosis. No acute fracture destructive bone lesion is seen. Patient's CT abdomen pelvis indicates the abdominal aorta is severely calcified but nondilated. There is no aneurysm or dissection. There is moderate narrowing of the superior mesenteric artery due to calcified plaque and mild narrowing of the origin of the celiac artery. Slight biliary duct prominence post cholecystectomy. No choledocholithiasis is seen. The liver, pancreas, spleen, adrenal glands, and kidneys are unremarkable. Staple line from previous partial right colectomy and reanastomosis. There is local ileus with gas fluid level at the site of anastomosis. Multiple additional gas fluid levels are seen within nondilated large and small bowel suggested mild ileus. No focal bowel wall inflammation, pneumoperitoneum, or free fluid is seen. The urinary bladder is fully distended but not dilated. Vkhv-iy-wqoggact degenerative changes throughout the spine. No acute fractures or subluxation is seen. The hips and pelvis demonstrate mild degenerative changes but are intact. Diagnosis: Bilateral pneumonia, atrial fibrillation with RVR, new oxygen requirement Risks: HEART score, PECARN score, CURB-65 score CRITICAL CARE ADDENDUM: Indication: atrial fibrillation with RVR requiring intervention Time type: intermittent I provided a total of 35 minutes of critical care excluding separately billable procedures. This includes time w/ EMS, initial bedside evaluation, reviewing old records, review of testing done while under my care, discussion w/ the family, nurses, organizational development consultant and guiding the patient?s care while in the emergency department. MDM: Results of imaging and lab work shared with patient and his family. It was advised patient be admitted to the hospital for further evaluation and treatment. Patient and his family verbalized understanding and are in agreement with plan. [id number] with hospitalist, Latoya Sow NP, who was in agreement with plan for admission. Patient will be admitted to the due to his Cardizem drip. <Renea Osborne APRN - Last Filed: 09/06/25 03:46> Differential Diagnosis Differential Diagnosis: Pneumonia, PE, atrial fibrillation with RVR, sepsis <Renea Osborne APRN - Last Filed: 09/06/25 03:46> Lab Data [facility] Lab Attestation statement: I personally reviewed the patient's lab results. <Renea Osborne APRN - Last Filed: 09/06/25 03:46> Result diagrams: 09/05/25 23:50 09/05/25 23:50 <Renea Osborne APRN - Last Filed: 09/06/25 03:46> Labs: Lab Results 09/05/25 Range/Units 23:50 WBC 13.4 H (4.5-10.0) K/mm3 RBC 4.31 L (4.6-6.20) M/mm3 Hgb 14.3 D (14.0-18.0) g/dL Hct 43.5 (42.0-52.0) % MCV 100.9 H (80-100) fl MCH 33.2 (26-34) pg MCHC 32.9 (32-36) g/dl RDW 13.2 (11.5-14.5) % Plt Count 201 (150-375) k/mm3 MPV 9.4 (7.4-10.4) fl Immature Gran % (Auto) 0.4 (0-0.5) % Neut % (Auto) 86.7 H (45.5-73.1) % Lymph % (Auto) 7.2 L (18.3-44.2) % [place] % (Auto) 5.1 (2.6-8.5) % Eos % (Auto) 0.4 (0-4.4) % Baso % (Auto) 0.2 (0.2-1.2) % Lymph # (Auto) 0.96 (0.9-3.2) K/mm3 [place] # (Auto) 0.7 H (0.1-0.6) K/mm3 Eos # (Auto) 0.1 (0-0.3) K/mm3 Baso # (Auto) 0.0 (0.0-0.1) K/mm3 Abs Immat Gran (auto) 0.05 H (0.00-0.031) K/mm3 Absolute Neuts (auto) 11.6 H (1.3-6.7) K/mm3 Absolute Nucleated RBC 0.000 (0.0-0.012) K/mm3 Nucleated RBC % 0.0 (0.0-0.2) % PT 14.1 (11.1-14.7) Seconds INR 1.1 APTT 32.5 (22.3-36.8) Seconds Sodium 137 (137-145) mmol/L Potassium 3.5 (3.4-5.0) mmol/L Chloride 101 (98-107) mmol/L Carbon Dioxide 26 (22-30) mmol/L Anion Gap 10 (4-12) mmol/L BUN 24 H (9-20) mg/dL Creatinine 1.79 H (0.7-1.3) mg/dL Estim Creat Clear Calc 27 ml/min Estimated GFR 37 L (59 - ) Glucose 99 (65-110) mg/dL Lactic Acid 1.5 (0.7-2.0) mmol/L Calcium 9.4 (8.4-10.2) mg/dL Total Bilirubin 0.9 (0.2-1.3) mg/dL AST 38 (17-59) U/L ALT 31 (6-50) U/L Alkaline Phosphatase 114 (38-126) U/L Total Creatine Kinase 107 (55-170) U/L Troponin I 0.027 (0.000-0.034) ng/mL C-Reactive Protein 2.3 H (<1.0) mg/dL NT-Pro-B Natriuret Pep 2560 H (19.9-100) pg/mL Total Protein 8.3 H (6.3-8.2) g/dL Albumin 4.6 (3.5-5.1) g/dL Urine Color Yellow (Yellow) Urine Appearance Clear (Clear) Urine pH 5.5 (5.0-9.0) Ur Specific [place] 1.012 (1.001-1.035) Urine Protein Trace (Negative) mg/dL Urine Glucose (UA) Negative (Negative) mg/dL Urine Ketones Negative (Negative) mg/dL Ur Blood (Man) 1+ H (Negative) Urine Nitrate Positive H (Negative) Urine Bilirubin Negative (Negative) Urine Urobilinogen 0.2 (<2.0) mg/dL Leukocyte Esterase Rfl Trace H (Negative) LUCIO/UL Urine RBC 0-2 (0-2) /hpf Urine WBC 11-20 H (0-3) /hpf Ur Squamous Epith Cells None seen (Few) /hpf Urine Bacteria 4+ H /hpf Urine Casts 0-2 Ethyl Alcohol < 10 (<10) mg/dL Influenza A (RT-PCR) Negative (Negative) Influenza B (RT-PCR) Negative (Negative) RSV (RT-PCR) Negative (Negative) SARS-CoV-2 RNA (RT-PCR) Negative (Negative) <Renea Osborne, BESSEMER CONVERTER OPERATOR - Last Filed: 09/06/25 03:46> Lab Results 09/05/25 Range/Units 23:50 WBC 13.4 H (4.5-10.0) K/mm3 RBC 4.31 L (4.6-6.20) M/mm3 Hgb 14.3 D (14.0-18.0) g/dL Hct 43.5 (42.0-52.0) % MCV 100.9 H (80-100) fl MCH 33.2 (26-34) pg MCHC 32.9 (32-36) g/dl RDW 13.2 (11.5-14.5) % Plt Count 201 (150-375) k/mm3 MPV 9.4 (7.4-10.4) fl Immature Gran % (Auto) 0.4 (0-0.5) % Neut % (Auto) 86.7 H (45.5-73.1) % Lymph % (Auto) 7.2 L (18.3-44.2) % [place] % (Auto) 5.1 (2.6-8.5) % Eos % (Auto) 0.4 (0-4.4) % Baso % (Auto) 0.2 (0.2-1.2) % Lymph # (Auto) 0.96 (0.9-3.2) K/mm3 [place] # (Auto) 0.7 H (0.1-0.6) K/mm3 Eos # (Auto) 0.1 (0-0.3) K/mm3 Baso # (Auto) 0.0 (0.0-0.1) K/mm3 Abs Immat Gran (auto) 0.05 H (0.00-0.031) K/mm3 Absolute Neuts (auto) 11.6 H (1.3-6.7) K/mm3 Absolute Nucleated RBC 0.000 (0.0-0.012) K/mm3 Nucleated RBC % 0.0 (0.0-0.2) % PT 14.1 (11.1-14.7) Seconds INR 1.1 APTT 32.5 (22.3-36.8) Seconds Sodium 137 (137-145) mmol/L Potassium 3.5 (3.4-5.0) mmol/L Chloride 101 (98-107) mmol/L Carbon Dioxide 26 (22-30) mmol/L Anion Gap 10 (4-12) mmol/L BUN 24 H (9-20) mg/dL Creatinine 1.79 H (0.7-1.3) mg/dL Estim Creat Clear Calc 27 ml/min Estimated GFR 37 L (59 - ) Glucose 99 (65-110) mg/dL Lactic Acid 1.5 (0.7-2.0) mmol/L Calcium 9.4 (8.4-10.2) mg/dL Total Bilirubin 0.9 (0.2-1.3) mg/dL AST 38 (17-59) U/L ALT 31 (6-50) U/L Alkaline Phosphatase 114 (38-126) U/L Total Creatine Kinase 107 (55-170) U/L Troponin I 0.027 (0.000-0.034) ng/mL C-Reactive Protein 2.3 H (<1.0) mg/dL NT-Pro-B Natriuret Pep 2560 H (19.9-100) pg/mL Total Protein 8.3 H (6.3-8.2) g/dL Albumin 4.6 (3.5-5.1) g/dL Urine Color Yellow (Yellow) Urine Appearance Clear (Clear) Urine pH 5.5 (5.0-9.0) Ur Specific [place] 1.012 (1.001-1.035) Urine Protein Trace (Negative) mg/dL Urine Glucose (UA) Negative (Negative) mg/dL Urine Ketones Negative (Negative) mg/dL Ur Blood (Man) 1+ H (Negative) Urine Nitrate Positive H (Negative) Urine Bilirubin Negative (Negative) Urine Urobilinogen 0.2 (<2.0) mg/dL Leukocyte Esterase Rfl Trace H (Negative) LUCIO/UL Urine RBC 0-2 (0-2) /hpf Urine WBC 11-20 H (0-3) /hpf Ur Squamous Epith Cells None seen (Few) /hpf Urine Bacteria 4+ H /hpf Urine Casts 0-2 Ethyl Alcohol < 10 (<10) mg/dL Influenza A (RT-PCR) Negative (Negative) Influenza B (RT-PCR) Negative (Negative) RSV (RT-PCR) Negative (Negative) SARS-CoV-2 RNA (RT-PCR) Negative (Negative) <Federico Stokes MD - Last Filed: 09/06/25 06:06> Imaging Data Attestation: I personally reviewed and interpreted this imaging study as follows: <Renea Osborne APRN - Last Filed: 09/06/25 03:46> Radiologist's impression: CTA chest indicates the thoracic aorta is moderately calcified but nondilated. There are no aneurysm or dissection. The pulmonary arterial tree is adequately 0 paste side with contrast. No pulmonary embolism is identified. Previous CABG. The heart is moderately enlarged. No pericardial effusion is seen. No mediastinal or axillary lymphadenopathy or Mass. Central bronchial wall thickening, greatest in the lower lobes. There is a bronchial plugging in both lower lobes and scattered bibasilar infiltrates suspicious for pneumonia. This is slightly worse on the right than the left. No pneumothorax is seen. Trace right pleural effusion measuring less than 1 cm. Mild multilevel osteophytosis throughout the thoracic spine with partial ankylosis. No acute fracture destructive bone lesion is seen. Patient's CT abdomen pelvis indicates the abdominal aorta is severely calcified but nondilated. There is no aneurysm or dissection. There is moderate narrowing of the superior mesenteric artery due to calcified plaque and mild narrowing of the origin of the celiac artery. Slight biliary duct prominence post cholecystectomy. No choledocholithiasis is seen. The liver, pancreas, spleen, adrenal glands, and kidneys are unremarkable. Staple line from previous partial right colectomy and reanastomosis. There is local ileus with gas fluid level at the site of anastomosis. Multiple additional gas fluid levels are seen within nondilated large and small bowel suggested mild ileus. No focal bowel wall inflammation, pneumoperitoneum, or free fluid is seen. The urinary bladder is fully distended but not dilated. Klsm-tj-otumacom degenerative changes throughout the spine. No acute fractures or subluxation is seen. The hips and pelvis demonstrate mild degenerative changes but are intact. <Renea Osborne APRN - Last Filed: 09/06/25 03:46> Critical Care Time Critical Care Time Critical Care Time: Yes <Renea Osborne APRN - Last Filed: 09/06/25 03:46> Indication: atrial fibrillation with RVR, R/O sepsis <Renea Osborne APRN - Last Filed: 09/06/25 03:46> Time Type: Intermittent <Renea Osborne APRN - Last Filed: 09/06/25 03:46> Initial evaluation, discuss w/ involved parties, attempting to gather old records: 10 minutes <Renea Osborne APRN - Last Filed: 09/06/25 03:46> Documenting medical record: 5 minutes <Renea Osborne APRN - Last Filed: 09/06/25 03:46> Review of results (EKG's, labs, imaging): 5 minutes <Renea Osborne APRN - Last Filed: 09/06/25 03:46> Serial repeat bedside evaluation: 10 minutes <Renea Osboren APRN - Last Filed: 09/06/25 03:46> Discussing case with multiple memebers of the care team and consultants: 5 minutes <Renea Osborne APRN - Last Filed: 09/06/25 03:46> Total Critical Care Time: 35 <Renea Osborne APRN - Last Filed: 09/06/25 03:46> 35 <Federico Stokes MD - Last Filed: 09/06/25 06:06> Discharge Plan Discharge Clinical Impression: Atrial fibrillation with rapid ventricular response, Community acquired bilateral lower lobe pneumonia, UTI (urinary tract infection), Chronic renal insufficiency <Renea Osborne APRN - Last Filed: 09/06/25 03:46> Patient Disposition: Still a Patient <Renea Osborne APRN - Last Filed: 09/06/25 03:46> Condition: Serious <Renea Osborne APRN - Last Filed: 09/06/25 03:46>
[2025-09-06] VITALS (53 sets, daily range): BP systolic 92–173; BP diastolic 50–118; PULSE 73–158; RESP 13–33; TEMP 36.4–39.6; O2SAT 89–100; BMI 19.3
--- NOTE | 2025-09-06 | ECHO_ITS ---
Patient Info Name: Vitaly Oreilly Age: 80 years : 1945 Gender: Male Ht: 70 in Wt: 140 lbs BSA: 1.76 m2 HR: 110 bpm BP: 99 / 50 mmHg Heart Rhythm: Atrial Fibrillation Technical Quality: Fair Exam Date: 09/06/2025 12:21 PM Patient Status: I Admit Date: 09/06/2025 Exam Type: CA echo doppler color flow Complete two-dimensional, color flow and Doppler transthoracic echocardiogram is performed. Staff Referring Physician: Renea Osborne Deputy Chief Counsel: La Rincon Attending Provider: Umm Lovett Summary 1. Complete two-dimensional, color flow and Doppler transthoracic echocardiogram is performed. 2. Normal left and right ventricular size and systolic function. 3. Severe biatrial dilation. 4. Mild mitral, tricuspid and pulmonic regurgitation. 5. Mildly sclerotic aortic valve with well maintained leaflet excursion. 6. Atrial fibrillation. 7. Compared to echocardiogram done in this laboratory in October 2023 the findings are unchanged. Left Ventricle Left ventricular chamber dimension is normal. Left ventricular systolic function is normal, estimated at 50-55. Right Ventricle Right ventricular chamber dimension is normal. Left Atria Left atrial chamber dimension is severely enlarged. Right Atria Right atrial chamber dimension is severely enlarged. Aortic Valve The aortic valve is trileaflet. There is mild aortic valve sclerosis. Pulmonic Valve The pulmonic valve is normal. There is mild pulmonic regurgitation. Mitral Valve The mitral valve has normal leaflets. There is mild to moderate mitral valve regurgitation. Tricuspid Valve The tricuspid valve leaflets are normal. There is mild tricuspid valve regurgitation. Pericardium/Pleural The pericardium appears normal. Aorta The aortic root size at the sinus of Valsalva is normal. Left Ventricular Outflow Tract Name Value Normal LVOT 2D LVOT Diameter 2.0 cm LVOT Doppler LVOT Peak Velocity 93 cm/s LVOT Peak Gradient 3 mmHg LVOT Mean Gradient 2 mmHg LVOT VTI 14 cm LVOT VTI/AV VTI Ratio 0.7 LVOT Stroke Volume 44 ml LVOT CO 5.2 l/min LVOT CI 2.9 l/min/m2 Pulmonic Valve Name Value Normal RVOT Doppler RVOT Peak Velocity 99 cm/s RVOT Peak Gradient 4 mmHg PV Doppler PV Peak Velocity 109 cm/s PV Peak Gradient 5 mmHg Mitral Valve Name Value Normal MV Doppler MV Peak Gradient 8 mmHg MV Mean Gradient 4 mmHg MV Area (Cont Eq VTI) 1.5 cm2 MV Regurgitation Doppler MR Peak Gradient 69 mmHg MV Diastolic Function MV E Peak Velocity 119 cm/s MV A Peak Velocity 1 cm/s MV E/A 164.1 MV Decel Time (PW) 211 ms MV Annular TDI MV E/e' (Septal) 16.2 MV E/e' (Lateral) 8.3 MV E/e' (Average) 12.2 Tricuspid Valve Name Value Normal TV Regurgitation Doppler TR Peak Velocity 271 cm/s TR Peak Gradient 21 mmHg Estimated PAP/RSVP RA Pressure 10 mmHg <=5 PA Systolic Pressure 39 mmHg <36 RV Systolic Pressure 39 mmHg <36 TV Annular TDI TV Lateral Nadya s' Velocity 5.7 cm/s >=9.5 Aorta Name Value Normal Ascending Aorta Ao Root Diameter (MM) 2.6 cm Ao Root Diam Index (MM) 1.5 cm/m2 Aortic Valve Name Value Normal AV Doppler AV Peak Velocity 159 cm/s AV Peak Gradient 10 mmHg AV Mean Gradient 5 mmHg AV VTI 21 cm AV Area (Cont Eq VTI) 2.1 cm2 >=3.0 AV Area (Cont Eq Gideon) 1.8 cm2 AV DI (Gideon) 0.59 AV Regurgitation 2D LVOT Area 3.1 cm2 Ventricles Name Value Normal LV Dimensions 2D/MM IVS Diastolic Thickness (2D) 1.0 cm 0.6-1.0 LVID Diastole (2D) 5.1 cm 4.2-5.8 LVIW Diastolic Thickness (2D) 1.0 cm 0.6-1.0 LVID Systole (2D) 3.7 cm 2.5-4.0 LVOT Diameter 2.0 cm LV Mass (2D Cubed) 193.71 g 88.00-224.00 LV Mass Index (2D Cubed) 110 g/m2 49-115 Relative Wall Thickness (2D) 0.39 <=0.42 LV Fractional Shortening/Ejection Fraction 2D/MM LV Fractional Shortening (2D) 28 % 25-43 LV EF (2D Teichholz) 55 % LV Diastolic Volume (4C MOD) 76 ml LV EF (4C MOD) 59 % LV Diastolic Volume (2C MOD) 70 ml LV EF (2C MOD) 64 % LV Diastolic Volume (BP MOD) 73 ml 62-150 LV Diastolic Volume Index (BP MOD) 41 ml/m2 34-74 LV Systolic Volume (BP MOD) 29 ml 21-61 LV Systolic Volume Index (BP MOD) 16 ml/m2 11-31 LV EF (BP MOD) 61 % 52-72 LV Diastolic Length (4C) 7.0 cm LV Systolic Length (4C) 5.7 cm LV Stroke Volume (4C MOD) 45 ml Atria Name Value Normal LA Dimensions LA Dimension (MM) 5.1 cm 3.0-4.0 LA Volume (4C A-L) 78 ml LA Volume (BP A-L) 86 ml RA Dimensions RA Area (4C) 23.1 cm2 <=18.0 Report Signatures
[2025-09-06 00:04] LABS: Hematocrit 43.5 % (42.0-52.0); Hemoglobin 14.3 g/dL (14.0-18.0); Immature Granulocyte Percent A 0.4 % (0-0.5); Lymphocytes Absolute Auto 0.96 K/mm3 (0.9-3.2); Mean Corpuscular HGB Conc 32.9 g/dl (32-36); Mean Corpuscular Hemoglobin 33.2 pg (26-34); Mean Corpuscular Volume 100.9 fl (80-100); Nucleated Red Blood Cells Absolute Auto 0.000 K/mm3 (0.0-0.012); Nucleated Red Blood Cells Perc 0.0 % (0.0-0.2); Platelet Count Result 201 k/mm3 (150-375); Red Blood Count 4.31 M/mm3 (4.6-6.20); White Blood Count 13.4 K/mm3 (4.5-10.0)
[2025-09-06] MEDS: dilTIAZem 100 MG/100 ML 100 MG/100 ML BAG IV CONT ×2 (00:05→08:39)
[2025-09-06] MEDS: cefTRIAXone 1 GM in SODIUM CHLORIDE 0.9% IV 50 ML 100 ML IVPB ×2 (00:09→20:15)
[2025-09-06 00:11] LABS: Creatine Kinase 107 U/L (55-170)
[2025-09-06 00:16] LABS: Alanine Aminotransferase 31 U/L (6-50); Albumin Level 4.6 g/dL (3.5-5.1); Alkaline Phosphatase 114 U/L (38-126); Anion Gap 10 mmol/L (4-12); Aspartate Amino Transferase 38 U/L (17-59); Bilirubin,Total 0.9 mg/dL (0.2-1.3); Blood Urea Nitrogen 24 mg/dL (9-20); CRP 2.3 mg/dL (<1.0); Calcium 9.4 mg/dL (8.4-10.2); Carbon Dioxide 26 mmol/L (22-30); Chloride 101 mmol/L (98-107); Estimated CRCL calculation 27 ml/min; Estimated Glomerular Filt Rate 37; Glucose 99 mg/dL (65-110); INR 1.1; Potassium 3.5 mmol/L (3.4-5.0); Prothrombin Time 14.1 Seconds (11.1-14.7); Sodium 137 mmol/L (137-145); Total Protein 8.3 g/dL (6.3-8.2)
[2025-09-06 00:17] LABS: Partial Thromboplastin Time 32.5 Seconds (22.3-36.8)
[2025-09-06 00:19] LABS: Add Urine Microscopic? YES; Appearance Urine Clear (Clear); Glucose Urine UA Negative (Negative); Leukocyte Esterase Ur Trace LEU/UL (Negative); Nitrate Urine Positive (Negative); Non Pathogenic Casts 0-2; Specific Grav Ur 1.012 (1.001-1.035)
[2025-09-06 00:22] LABS: NT Pro B Type Natriuretic Pept 2560 pg/mL (19.9-100)
[2025-09-06 00:24] LABS: Troponin I 0.027 ng/mL (0.000-0.034)
[2025-09-06 00:37] LABS: Influenza A QL RT-PCR Negative (Negative); Influenza B QL RT-PCR Negative (Negative); RSV RNA, RT-PCR Negative (Negative); SARS-CoV-2 RNA PCR Negative (Negative)
[2025-09-06] MEDS: AZITHROMYCIN IV 500 MG in SODIUM CHLORIDE 0.9% IV 250 ML IVPB (00:39)
[2025-09-06] MEDS: SODIUM CHLORIDE 0.9% IV 1,000 ML 125 ML IV CONT (04:08)
[2025-09-06] MEDS: ACETAMINOPHEN 500 MG TABLET 1000 MG PO (04:57)
--- NOTE | 2025-09-06 05:53 | WPCEDHO ---
ED Hand Off Checklist All vitals saved:yes IV Site documented:yes All med administrations documented:yes Triage Note Triage Note Patient brought home by 09/05/25 22:07 [place]-with shivering, congestion, lethargic progressively worse x 3 days. Main complaint is weakness. Afib RVR 130's per EMS. 90% on room air placed on 2l NC, blood glucose was 75. History Dementia , Afib, kidney disease. 18g IV Left AC Alert x2 (normal)with confusion about year reporting that patient has prior history of shaking with UTI/ Pneumonia in the past Allergies No Known Allergies Allergy (Verified 09/06/25 00:12) Family History (Last Reviewed 09/05/25 @ 23:57 by Renea Osborne, ORDNANCE TECHNICIAN) Father Myocardial infarct Cerebrovascular accident Mother Breast cancer Sibling Crohn's disease Active Medications including assessments/comments Diltiazem HCl (Cardizem 100 Mg/100 Ml) 100 mg in 100 mls @ 12.5 mls/hr IV CONT .Q8H STA Stop: 09/06/25 07:58 Last Infusion: 09/06/25 00:47 Dose: 12.5 mg/hr, 12.5 mls/hr Documented By: EMW Infusion/Titration Document 09/06/25 00:47 EMW (Rec: 09/06/25 00:48 EMW [id number]) Intake Intake 3 Cumulative Intake ( 4.5 bag) Cumulative Intake ( 4.5 Rx) Container Volume 95.5 Waste Amount 0 Dosing Dose Rate 12.5 Infusion Rate 12.5 Cumulative Dose 4.5 Increase/Decrease Increased Elapsed Time Elapsed Time ( 42m minutes) Diltiazem Infusion Assessment Document 09/06/25 00:47 EMW (Rec: 09/06/25 00:48 EMW [id number]) Infusion Action Diltiazem Infusion Titrated/Rate Changed Action Pulse Pulse Rate (60-100 142 H beats/min) Blood Pressure Blood Pressure (100/ 164/105 H 60-140/90 mmHg) Blood Pressure Mean 124 (mmHg) Infusion: 09/06/25 00:23 Dose: 7.5 mg/hr, 7.5 mls/hr Documented By: EMW Infusion/Titration Document 09/06/25 00:23 EMW (Rec: 09/06/25 00:25 EMW [id number]) Intake Intake 1.5 Cumulative Intake ( 1.5 bag) Cumulative Intake ( 1.5 Rx) Container Volume 98.5 Waste Amount 0 Dosing Dose Rate 7.5 Infusion Rate 7.5 Cumulative Dose 1.5 Increase/Decrease Increased Elapsed Time Elapsed Time ( 18m minutes) Diltiazem Infusion Assessment Document 09/06/25 00:23 EM (Rec: 09/06/25 00:25 EM [id number]) Infusion Action Diltiazem Infusion Titrated/Rate Changed Action Pulse Pulse Rate (60-100 144 H beats/min) Blood Pressure Blood Pressure (100/ 159/104 H 60-140/90 mmHg) Blood Pressure Mean 122 (mmHg) Admin: 09/06/25 00:05 Dose: 5 mg/hr, 5 mls/hr Documented By: EMW Infusion/Titration Document 09/06/25 00:05 EMW (Rec: 09/06/25 00:06 EM [id number]) Intake IV Site Peripheral Access Right Antecubital Container Volume 100 Waste Amount 0 Dosing Dose Rate 5 Infusion Rate 5 Increase/Decrease Started Elapsed Time Elapsed Time ( 0m minutes) Diltiazem Infusion Assessment Document 09/06/25 00:05 EM (Rec: 09/06/25 00:06 EM [id number]) Infusion Action Diltiazem Infusion Initiated Action Pulse Pulse Rate (60-100 151 H beats/min) Blood Pressure Blood Pressure (100/ 173/93 H 60-140/90 mmHg) Blood Pressure Mean 119 (mmHg) Sodium Chloride (Normal Saline Iv) 1,000 mls @ 125 mls/hr IV CONT .Q8H SUZAN Last Admin: 09/06/25 04:08 Dose: 125 mls/hr Documented By: EMW Infusion/Titration Document 09/06/25 04:08 EMW (Rec: 09/06/25 04:08 EM [id number]) Intake IV Site Peripheral Access Left Antecubital Container Volume 1,000 Waste Amount 0 Dosing Infusion Rate 125 Cumulative Dose Not Applicable Increase/Decrease Started Elapsed Time Elapsed Time ( 0m minutes) Administered/Completed Medications Discontinued Medications Acetaminophen (Acetaminophen 500 Mg Tablet) 1,000 mg PO ONCE STA Stop: 09/06/25 04:32 Last Admin: 09/06/25 04:57 Dose: 1,000 mg Documented By: EMW Diltiazem HCl (Diltiazem Hcl Inj 25 Mg/5 Ml Vial) 10 mg IV PUSH ONCE STA Stop: 09/05/25 23:40 Last Admin: 09/05/25 23:54 Dose: 10 mg Documented By: JAYY Sodium Chloride (Normal Saline Iv) 1,000 mls @ 999 mls/hr IV CONT .Q1H1M STA Stop: 09/05/25 23:59 Last Infusion: 09/06/25 02:02 Dose: Infused Documented By: Admin: 09/05/25 23:54 Dose: 999 mls/hr Documented By: JAYY Ceftriaxone Sodium 1 gm/ (Sodium Chloride) 50 mls @ 100 mls/hr IVPB ONCE STA Stop: 09/06/25 00:09 Last Infusion: 09/06/25 00:34 Dose: Infused Documented By: Admin: 09/06/25 00:09 Dose: 100 mls/hr Documented By: JAYY Azithromycin 500 mg/ Sodium (Chloride) 250 mls @ 250 mls/hr IVPB ONCE STA Stop: 09/06/25 00:39 Last Infusion: 09/06/25 02:01 Dose: Infused Documented By: Admin: 09/06/25 00:39 Dose: 250 mls/hr Documented By: JAYY Interventions/Assessments General Assessment Start: 09/05/25 21:55 Freq: Status: Active Protocol: Document 09/05/25 22:15 TLB (Rec: 09/05/25 23:12 TLB [id number]) GA Neurological Assessment Level of Drowsy Consciousness Orientation Oriented to Person Behavior Appropriate,Cooperative Ability to Maintain Normal Balance Facial Symmetry Symmetrical Speech Pattern Clear IV / Saline Lock, Insert Start: 09/05/25 21:55 Freq: Status: Active Protocol: Document 09/05/25 22:23 TLB (Rec: 09/05/25 22:23 TLB [id number]) IV Assessment Peripheral Access Left Antecubital IV Catheter Access Initiated Before Arrival Catheter Gauge 18 IV Care and WNL,Access Locked Maintenance IV / Saline Lock, Insert Start: 09/05/25 23:37 Freq: STAT Status: Active Protocol: Document 09/06/25 00:06 EMW (Rec: 09/06/25 00:06 EMW [id number]) IV Assessment Peripheral Access Right Antecubital IV Catheter Access Initiated IV Insertion Date 09/06/25 IV Insertion Time 00:06 Catheter Gauge 18 IV Insertion 1 Attempts Ultrasound Used for No Placement IV Site Assessment WNL IV Care and WNL Maintenance PA: Cardiovascular Assessment Start: 09/06/25 00:41 Freq: Status: Active Protocol: Document 09/06/25 00:42 EMW (Rec: 09/06/25 05:12 EMW [id number]) Cardiovascular Assessment Skin Description Warm PA: Neurological Assessment Start: 09/06/25 00:41 Freq: Status: Active Protocol: Document 09/06/25 00:42 EMW (Rec: 09/06/25 05:12 EMW [id number]) Neurological Assessment Level of Drowsy Consciousness Orientation Oriented to Person,Disoriented to Place,Disoriented to Time Neurological Confusion,Hallucinations Symptoms Ability to Maintain Unable to Assess Balance PA: Respiratory Assessment Start: 09/06/25 00:41 Freq: Status: Active Protocol: Document 09/06/25 00:42 EMW (Rec: 09/06/25 05:12 EMW [id number]) Respiratory Assessment Symptoms Cough Pattern Tachypnea Depth Shallow Throughout Lung Sounds Diminished Cough Description Acute Cough Frequency Intermittent Oxygen Delivery Oxygen Delivery Nasal Cannula Oxygen Flow Rate (L/ 2 min) Pulse Oximetry (90- 100 100 %) Last Vital Signs Temperature 101 F H 09/06/25 05:30 Pulse Rate 103 H 09/06/25 05:30 Respiratory Rate 33 H 09/06/25 05:30 Pulse Oximetry 97 09/06/25 05:30 Blood Pressure 98/56 L 09/06/25 05:30 Blood Pressure Mean 70 09/06/25 05:30 Blood Pressure Position Sitting 09/05/25 22:07 Oxygen Delivery Nasal Cannula 09/06/25 00:42 Oxygen Flow Rate 2 09/06/25 00:42 Weight 63.6 kg 09/05/25 22:07 Last Result - Abnormals Only WBC 13.4 K/mm3 (4.5-10.0) H 09/05/25 23:50 RBC 4.31 M/mm3 (4.6-6.20) L 09/05/25 23:50 MCV 100.9 fl (80-100) H 09/05/25 23:50 Neut % (Auto) 86.7 % (45.5-73.1) H 09/05/25 23:50 Lymph % (Auto) 7.2 % (18.3-44.2) L 09/05/25 23:50 [place] # (Auto) 0.7 K/mm3 (0.1-0.6) H 09/05/25 23:50 Abs Immat Gran (auto) 0.05 K/mm3 (0.00-0.031) H 09/05/25 23:50 Absolute Neuts (auto) 11.6 K/mm3 (1.3-6.7) H 09/05/25 23:50 BUN 24 mg/dL (9-20) H 09/05/25 23:50 Creatinine 1.79 mg/dL (0.7-1.3) H 09/05/25 23:50 Estimated GFR 37 (59-) L 09/05/25 23:50 C-Reactive Protein 2.3 mg/dL (<1.0) H 09/05/25 23:50 NT-Pro-B Natriuret Pep 2560 pg/mL (19.9-100) H 09/05/25 23:50 Total Protein 8.3 g/dL (6.3-8.2) H 09/05/25 23:50 Ur Blood (Man) 1+ (Negative) H 09/05/25 23:50 Urine Nitrate Positive (Negative) H 09/05/25 23:50 Leukocyte Esterase Rfl Trace LUCIO/UL (Negative) H 09/05/25 23:50 Urine WBC 11-20 /hpf (0-3) H 09/05/25 23:50 Urine Bacteria 4+ /hpf H 09/05/25 23:50 Most Recent Suicide Severity Rating Suicide Severity Rating NO RISK INDICATED 09/05/25 22:07
--- NOTE | 2025-09-06 06:22 | ADMGEN ---
This patient, Vitaly Oreilly, was admitted to IMU Room 232-01. Patient/family oriented to hospital policies and general routines including ID bracelet, bed and alarms, visiting hours, pain management, procedures, bathroom and other care routines, personal items, smoking policy, room service/diet, and visiting hours. Information on how to activate the Rapid Response Team has been discussed. Patient/Family are encouraged to report perceived risks to care and to ask questions if they do not understand what they are told or what they should do.
[2025-09-06 09:07] LABS: Hematocrit 36.7 % (42.0-52.0); Hemoglobin 12.1 g/dL (14.0-18.0); Immature Granulocyte Percent A 0.5 % (0-0.5); Lymphocytes Absolute Auto 0.73 K/mm3 (0.9-3.2); Mean Corpuscular HGB Conc 33.0 g/dl (32-36); Mean Corpuscular Hemoglobin 33.4 pg (26-34); Mean Corpuscular Volume 101.4 fl (80-100); Nucleated Red Blood Cells Absolute Auto 0.000 K/mm3 (0.0-0.012); Nucleated Red Blood Cells Perc 0.0 % (0.0-0.2); Platelet Count Result 168 k/mm3 (150-375); Red Blood Count 3.62 M/mm3 (4.6-6.20); White Blood Count 21.5 K/mm3 (4.5-10.0)
[2025-09-06 09:29] LABS: Alanine Aminotransferase 26 U/L (6-50); Albumin Level 3.4 g/dL (3.5-5.1); Alkaline Phosphatase 91 U/L (38-126); Anion Gap 6 mmol/L (4-12); Aspartate Amino Transferase 34 U/L (17-59); Bilirubin,Total 0.9 mg/dL (0.2-1.3); Blood Urea Nitrogen 23 mg/dL (9-20); Calcium 8.3 mg/dL (8.4-10.2); Carbon Dioxide 28 mmol/L (22-30); Chloride 106 mmol/L (98-107); Estimated CRCL calculation 24 ml/min; Estimated Glomerular Filt Rate 33; Glucose 98 mg/dL (65-110); Magnesium 1.6 mg/dL (1.6-2.3); Potassium 3.8 mmol/L (3.4-5.0); Sodium 140 mmol/L (137-145); Total Protein 6.2 g/dL (6.3-8.2)
[2025-09-06] MEDS: DOXYCYCLINE IV 100 MG in SODIUM CHLORIDE 0.9% IV 100 ML IVPB ×2 (10:12→21:15)
--- NOTE | 2025-09-06 12:39 | PM.IMHP2 ---
H&P: HPI History of Present Illness Date/Time: 09/06/25 12:39 Chief Complaint: Altered mental status AFib with RVR Narrative: 80-year-old male with past medical history of Alzheimer's disease, CHF, Crohn's disease, seizure presented to the ER with altered mental status. Patient is able to open his eyes to verbal stimulation but then goes back to sleep right then. He is unable to provide any medical history. Was found to be in AFib with RVR. Review of Systems Review of Systems: ROS unobtainable: Yes unobtainable due to medical condition and unobtainable due to mental status PMFSH Past Medical History Medical History 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 Intermittent self-catheterization of bladder Cardiomyopathy Recurrent incisional hernia Atrial fibrillation with RVR Heart failure Systolic heart failure with EF of 40-45%, severe biatrial enlargement, moderate mitral and tricuspid regurgitation, reduced right ventricular systolic function, indeterminate diastolic function Chronic anemia Vascular dementia Seizures B12 deficiency Depression Gout Osteoarthritis Iron deficiency anemia Benign prostatic hyperplasia Kidney stones Chronic kidney disease, stage 3 Crohn's disease Hyperlipidemia Hypertension Peripheral vascular disease Coronary artery disease Surgical History Surgical History History of amputation of left fourth toe S/P CABG (coronary artery bypass graft) History of bilateral cataract extraction History of lithotripsy History of partial colectomy X2 for to bowel obstructions and fistula secondary to Crohn's disease. History of cholecystectomy History of vascular surgery Bilateral lower extremity stents. History of coronary artery bypass graft Family History Family History Father Myocardial infarct Cerebrovascular accident Mother Breast cancer Sibling Crohn's disease Social History Social History Social History: Surrogate decision maker: Sarah Rosscurtis, spouse. Code status: Do not resuscitate. Smoking packs per day: 2 Smoking cigarettes per day: 40.0 Years smoked: 25 Smoking pack-years: 50.00 Smoking status: Former smoker Second hand tobacco smoke exposure: No Alcohol intake: former Substance use: never Substance use type: does not use Lack of Transportation: No Lack of Food: Never True Current Housing: I Have Housing Concerned About Future Housing: No Difficulty Paying Gas/Electric Bills: No Difficulty Paying for Meds: No Currently Unemployed: No Education: High School Diploma/GED Difficulty w/ Childcare or Family Care: No Additional living arrangements comments: The patient lives with his in [place]. Additional occupation/education comments: Retired from [employer]. Spiritual care concerns: No Meds Home Medications and Allergies Home Medications ?Medication ?Instructions ?Recorded ?Confirmed ?Type allopurinol 100 mg tablet 100 mg PO HS 11/08/23 09/06/25 History aspirin 81 mg tablet 81 mg PO DAILY 11/08/23 09/06/25 History atorvastatin 10 mg tablet 10 mg PO QPM 11/08/23 09/06/25 History cilostazol 100 mg tablet 100 mg PO HS 11/08/23 09/06/25 History ferrous sulfate 325 mg (65 mg 325 mg PO DAILY@0800 11/28/24 09/06/25 History iron) tablet (FeroSul) escitalopram oxalate 20 mg tablet 20 mg PO HS 01/04/25 09/06/25 History loperamide 2 mg capsule 2 mg PO Q1-3H PRN loose stool 01/05/25 09/06/25 History (Anti-Diarrheal (loperamide)) cyanocobalamin (vitamin B-12) 1,000 mcg IM MONTHLY 04/14/25 09/06/25 History 1,000 mcg/mL injection solution donepezil 10 mg tablet 10 mg PO DAILY 09/05/25 09/06/25 History furosemide 40 mg tablet 20 mg PO DAILY 09/05/25 09/06/25 History lactobacillus combination no.9 4 4,000 mmu cells PO DAILY 09/05/25 09/06/25 History billion cell capsule (Adult 50 Plus Probiotic) levetiracetam 750 mg tablet 750 mg PO Q12HR 30 days #180 tabs 09/05/25 09/06/25 Rx memantine 10 mg tablet 10 mg PO BID #180 tabs 09/05/25 09/06/25 Rx risankizumab-rzaa 150 mg/mL 150 mg subcut ONCE 09/05/25 09/06/25 History subcutaneous pen injector (Skyrizi) ubidecarenone-omega 3-vit E 25 1 cap PO DAILY 12/15/25 12/16/25 History mg-150 (90-60) mg-200 unit capsule (Co C-[id number] E-Fish Oil) Allergies Allergy/AdvReac Type Severity Reaction Status Date / Time No Known Allergies Allergy Verified 09/06/25 10:30 Vital Signs Vital Signs - 24 hr 09/05/25 22:07 09/05/25 22:21 09/05/25 22:30 Temperature Pulse Rate 66 143 H 132 H Respiratory Rate 18 23 H 17 Blood Pressure 140/105 H 140/105 H 141/97 H Pulse Oximetry 97 97 96 Oxygen Delivery Room Air Oxygen Flow Rate 09/05/25 22:45 09/05/25 23:00 09/05/25 23:01 Temperature 99.0 F Pulse Rate 141 H 145 H 152 H Respiratory Rate 21 H 25 H 18 Blood Pressure 139/105 H Pulse Oximetry 94 100 Oxygen Delivery Oxygen Flow Rate 09/05/25 23:15 09/05/25 23:26 09/05/25 23:30 Temperature Pulse Rate 141 H 173 H 173 H Respiratory Rate 22 H 25 H 19 Blood Pressure 166/129 H Pulse Oximetry Oxygen Delivery Oxygen Flow Rate 09/05/25 23:53 09/06/25 00:00 09/06/25 00:01 Temperature Pulse Rate 160 H 135 H 149 H Respiratory Rate 23 H 22 H 23 H Blood Pressure 159/123 H 173/93 H Pulse Oximetry Oxygen Delivery Oxygen Flow Rate 09/06/25 00:05 09/06/25 00:15 09/06/25 00:23 Temperature Pulse Rate 151 H 149 H 144 H Respiratory Rate 13 Blood Pressure 173/93 H 159/104 H Pulse Oximetry Oxygen Delivery Oxygen Flow Rate 09/06/25 00:25 09/06/25 00:30 09/06/25 00:31 Temperature Pulse Rate 152 H 158 H 137 H Respiratory Rate 22 H 22 H 31 H Blood Pressure 159/104 H 173/103 H Pulse Oximetry 91 Oxygen Delivery Oxygen Flow Rate 09/06/25 00:41 09/06/25 00:41 09/06/25 00:42 Temperature Pulse Rate Respiratory Rate Blood Pressure Pulse Oximetry 89 L 95 100 Oxygen Delivery Room Air Nasal Cannula Nasal Cannula Oxygen Flow Rate 2 2 09/06/25 00:46 09/06/25 00:47 09/06/25 01:17 Temperature Pulse Rate 131 H 142 H 135 H Respiratory Rate 30 H 30 H Blood Pressure 164/105 H 164/105 H Pulse Oximetry 89 L 90 Oxygen Delivery Oxygen Flow Rate 09/06/25 01:20 09/06/25 01:31 09/06/25 01:46 Temperature Pulse Rate 122 H 130 H 135 H Respiratory Rate 28 H 23 H 24 H Blood Pressure 156/115 H 141/118 H 155/75 H Pulse Oximetry 94 96 96 Oxygen Delivery Oxygen Flow Rate 09/06/25 02:01 09/06/25 02:15 09/06/25 02:31 Temperature Pulse Rate 118 H 120 H 114 H Respiratory Rate 26 H 15 24 H Blood Pressure 132/89 137/92 H 130/60 Pulse Oximetry 98 98 100 Oxygen Delivery Oxygen Flow Rate 09/06/25 02:46 09/06/25 03:00 09/06/25 03:16 Temperature Pulse Rate 126 H 110 H 112 H Respiratory Rate 21 H 25 H 27 H Blood Pressure 135/73 135/76 128/74 Pulse Oximetry 98 98 97 Oxygen Delivery Oxygen Flow Rate 09/06/25 03:31 09/06/25 03:45 09/06/25 04:00 Temperature Pulse Rate 108 H 111 H 106 H Respiratory Rate 27 H 25 H 24 H Blood Pressure 121/69 117/70 114/69 Pulse Oximetry Oxygen Delivery Oxygen Flow Rate 09/06/25 04:15 09/06/25 04:16 09/06/25 04:30 Temperature Pulse Rate 118 H 118 H 104 H Respiratory Rate 25 H 25 H 29 H Blood Pressure 123/71 Pulse Oximetry 100 Oxygen Delivery Oxygen Flow Rate 09/06/25 04:31 09/06/25 04:35 09/06/25 04:45 Temperature 103.3 F H Pulse Rate 109 H 110 H 105 H Respiratory Rate 25 H 28 H 28 H Blood Pressure 122/71 113/69 122/71 Pulse Oximetry 100 97 100 Oxygen Delivery Oxygen Flow Rate 09/06/25 04:57 09/06/25 05:00 09/06/25 05:15 Temperature 101.3 F H Pulse Rate 100 107 H Respiratory Rate 27 H 25 H Blood Pressure 116/67 118/62 Pulse Oximetry 99 100 Oxygen Delivery Oxygen Flow Rate 09/06/25 05:30 09/06/25 06:02 09/06/25 08:00 Temperature 101 F H 101 F H 97.6 F Pulse Rate 103 H 104 H 85 Respiratory Rate 33 H 20 18 Blood Pressure 98/56 L 111/64 100/53 L Pulse Oximetry 97 100 96 Oxygen Delivery Oxygen Flow Rate 09/06/25 08:00 09/06/25 08:39 09/06/25 08:39 Temperature Pulse Rate 80 80 80 Respiratory Rate Blood Pressure 99/50 L 99/50 L 99/50 L Pulse Oximetry Oxygen Delivery Oxygen Flow Rate 09/06/25 10:00 09/06/25 11:45 Temperature 97.5 F L Pulse Rate 93 73 Respiratory Rate 18 Blood Pressure 92/66 L 122/89 Pulse Oximetry 94 Oxygen Delivery Oxygen Flow Rate Exam Narrative: GENERAL: Ill appearing, in no acute distress. HEAD: Normocephalic, atraumatic. NECK: Supple. No adenopathy, no masses. RESPIRATORY: Decreased breath sounds, no added sounds heard CARDIOVASCULAR: Irregular, rate control ABDOMINAL: Hard, nontender, distended. Normoactive BS. MUSCULOSKELETAL: Moves all extremities spontaneously SKIN: Warm, dry, normal color. No rashes. NEURO: A&O X 0. Unable to carry a conversation. Results Labs Labs: Short CBC 09/05/25 09/06/25 Range/Units 23:50 09:03 WBC 13.4 H 21.5 H (4.5-10.0) K/mm3 Hgb 14.3 D 12.1 L (14.0-18.0) g/dL Hct 43.5 36.7 L (42.0-52.0) % Plt Count 201 168 (150-375) k/mm3 BMP 09/05/25 09/06/25 23:50 09:03 Sodium 137 140 Potassium 3.5 3.8 Chloride 101 106 Carbon Dioxide 26 28 BUN 24 H 23 H Creatinine 1.79 H 1.97 H Glucose 99 98 Calcium 9.4 8.3 L Cardiac Enzymes 09/05/25 Range/Units 23:50 Total Creatine Kinase 107 (55-170) U/L Troponin I 0.027 (0.000-0.034) ng/mL Liver Function 09/05/25 09/06/25 Range/Units 23:50 09:03 Total Bilirubin 0.9 0.9 (0.2-1.3) mg/dL AST 38 34 (17-59) U/L ALT 31 26 (6-50) U/L Alkaline Phosphatase 114 91 (38-126) U/L Albumin 4.6 3.4 L (3.5-5.1) g/dL Urine 15/ Range/Units 23:50 Urine Color Yellow (Yellow) Urine Appearance Clear (Clear) Urine pH 5.5 (5.0-9.0) Ur Specific Zimmerman 1.012 (1.001-1.035) Urine Protein Trace (Negative) mg/dL Urine Glucose (UA) Negative (Negative) mg/dL Quality VTE Prophylaxis VTE prophylaxis: pharmacologic ordered Assessment and Plan Assessment and plan (1) Atrial fibrillation with rapid ventricular response: Code(s): I48.91 - Unspecified atrial fibrillation Status: Acute (2) Chronic kidney disease, stage 3: Qualifiers: Chronic kidney disease stage 3 subtype: stage 3b (GFR 30-44) Qualified Code(s): N18.32 - Chronic kidney disease, stage 3b Code(s): N18.30 - Chronic kidney disease, stage 3 unspecified Status: Chronic (3) Crohn's disease: Qualifiers: Gastrointestinal tract location: unspecified location Digestive disease complication type: without complication Qualified Code(s): K50.90 - Crohn's disease, unspecified, without complications Code(s): K50.90 - Crohn's disease, unspecified, without complications Status: Chronic (4) Dementia of the Alzheimer's type: Code(s): G30.9 - Alzheimer's disease, unspecified; F02.80 - Dementia in other diseases classified elsewhere, unspecified severity, without behavioral disturbance, psychotic disturbance, mood disturbance, and anxiety Status: Acute (5) Seizure disorder: Code(s): G40.909 - Epilepsy, unspecified, not intractable, without status epilepticus Status: Acute (6) Community acquired bilateral lower lobe pneumonia: Code(s): J18.9 - Pneumonia, unspecified organism Status: Acute Plan 80-year-old male with past medical history of Alzheimer's dementia, CKD presenting with altered mental status, AFib. 1. Altered mental status: Acute encephalopathy, multifactorial PREMA on pre-existing CKD Underlying infection AFib Monitor closely Will try to correct underlying etiology Continue with home dose Keppra as IV with history of seizure 2. AFib with RVR: Continue with tele monitoring Currently rate controlled Continue with Cardizem drip at 2.5 milligrams/hour Await cardiology consult Will defer long-term anticoagulation to Cardiology Pending echocardiogram Supplement magnesium 3. Bilateral lower lobe pneumonia O2 support as needed Noted leukocytosis Obtain urine strep, Legionella antigen Obtain blood culture Continue with doxycycline, ceftriaxone Will get speech eval due to mental status 4. Prema I on pre-existing CKD: Monitor kidney function Avoid nephrotoxins Recheck BMP in a.m. Received contrast for CT scan in the ER will have to monitor closely Hold Lasix 5. Code status: Full 6. DVT prophylaxis: On therapeutic Lovenox 7. Disposition: Admit to telemetry medicine Prior Studies I have reviewed the following patient records and this information was taken into consideration when formulating the assessment and plan.: previous labs Time Spent with Patient Time with patient: 45 - 74 minutes
--- NOTE | 2025-09-06 13:10 | PCSTNOTE ---
ST attempted to complete bedside swallow evaluation on 09/06/25 at 13:00; patient alertness inadequate for participation.
[2025-09-06] MEDS: MAGNESIUM SULF 2 GM/WATER 50ML 2 GM/50 ML BAG IVPB (13:26)
--- NOTE | 2025-09-06 14:23 | PM.CNCAR ---
Assessment and Plan Assessment and plan (1) New onset of congestive heart failure: Code(s): I50.9 - Heart failure, unspecified Status: Acute (2) Atrial fibrillation with rapid ventricular response: Code(s): I48.91 - Unspecified atrial fibrillation Status: Acute (3) Hyperlipidemia: Qualifiers: Hyperlipidemia type: mixed hyperlipidemia Qualified Code(s): E78.2 - Mixed hyperlipidemia Code(s): E78.5 - Hyperlipidemia, unspecified Status: Chronic (4) Hypertension: Qualifiers: Hypertension type: primary hypertension Qualified Code(s): I10 - Essential (primary) hypertension Code(s): I10 - Essential (primary) hypertension Status: Chronic Plan Assessment: Altered mental status Chronic AFib with RVR Hypertension Hyperlipidemia Peripheral arterial disease Coronary artery disease Plan: Cardizem drip for rate control. Switch to PO if he is able to take PO Anticoagulation with Lovenox. Switch to DOAC- Xarelto for ease of once daily dosing Continue aspirin, statin Continue cilostazol Check and replace electrolytes to keep potassium greater than 4 and magnesium greater than 2 TTE Monitor on telemetry Check TSH Management of other medical problems per primary team History of Present Illness History of Present Illness Consult date/time: 09/06/25 14:23 Reason For Visit: Atrial fibrillation with RVR, Pneumonia, Altered m Narrative: 80-year-old male with history of Alzheimer's dementia, hypertension, hyperlipidemia, peripheral vascular disease, CAD, cardiomyopathy, chronic AFib, depression, seizures, chronic anemia, gout, osteoarthritis, renal stones, CKD stage 3, Crohn's disease presented to the ER with chief complaints of altered mental status. He was found to be in AFib with RVR. Cardiology is consulted for further recommendations. Patient is accompanied by his today and she states that patient has dementia, lives at home, and she is her primary head of history. Patient is usually active with family and friends. For the last few days he has been more sleepy and he was brought to the ER. No chest pain, SOB, palpitations, dizziness, LH, leg swelling, recent weight gain. Patient's states patient is in chronic A fib and was previously evaluated but deemed not a candidate for LAAC. Workup: WBC 21.5 Hemoglobin 12.1 Creatinine 1.97 NT proBNP 2560 Troponin 0.027 EKG: AFib with RVR, nonspecific ST -T wave abnormality in the anterolateral leads TTE 10/2023: LVEF 40-45%, moderate mitral regurgitation and moderate tricuspid regurgitation Chest x-ray:Bibasilar atelectasis and/or airspace disease. CT head: No acute intracranial pathology CT chest abdomen pelvis: IMPRESSION: 1. Combination of pneumonia and rounded atelectasis in the lower lobes. 2. No pulmonary embolus. 3. Chronic dilatation of ileum with chronic mild wall thickening of the terminal ileum, consistent with Crohn disease and adynamic ileus. Review of Systems Review of Systems: A complete review of systems was performed and pertinent positives are reported in the HPI. [facility] Past Medical History Medical History 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 Intermittent self-catheterization of bladder Cardiomyopathy Recurrent incisional hernia Atrial fibrillation with RVR Heart failure Systolic heart failure with EF of 40-45%, severe biatrial enlargement, moderate mitral and tricuspid regurgitation, reduced right ventricular systolic function, indeterminate diastolic function Chronic anemia Vascular dementia Seizures B12 deficiency Depression Gout Osteoarthritis Iron deficiency anemia Benign prostatic hyperplasia Kidney stones Chronic kidney disease, stage 3 Crohn's disease Hyperlipidemia Hypertension Peripheral vascular disease Coronary artery disease Surgical History Surgical History History of amputation of left fourth toe S/P CABG (coronary artery bypass graft) History of bilateral cataract extraction History of lithotripsy History of partial colectomy X2 for to bowel obstructions and fistula secondary to Crohn's disease. History of cholecystectomy History of vascular surgery Bilateral lower extremity stents. History of coronary artery bypass graft Family History Family History Father Myocardial infarct Cerebrovascular accident Mother Breast cancer Sibling Crohn's disease Social History Social History Social History: Surrogate decision maker: Sarah Denilson, spouse. Code status: Do not resuscitate. Smoking packs per day: 2 Smoking cigarettes per day: 40.0 Years smoked: 25 Smoking pack-years: 50.00 Smoking status: Former smoker Second hand tobacco smoke exposure: No Alcohol intake: never Substance use: never Substance use type: does not use Lack of Transportation: No Lack of Food: Never True Current Housing: I Have Housing Concerned About Future Housing: No Difficulty Paying Gas/Electric Bills: No Difficulty Paying for Meds: No Currently Unemployed: No Education: High School Diploma/GED Difficulty w/ Childcare or Family Care: No Additional living arrangements comments: The patient lives with his in [place]. Additional occupation/education comments: Retired from [employer]. Spiritual care concerns: No Meds Home Medications and Allergies Home Medications ?Medication ?Instructions ?Recorded ?Confirmed ?Type allopurinol 100 mg tablet 100 mg PO HS 11/08/23 09/06/25 History aspirin 81 mg tablet 81 mg PO DAILY 11/08/23 09/06/25 History atorvastatin 10 mg tablet 10 mg PO QPM 11/08/23 09/06/25 History cilostazol 100 mg tablet 100 mg PO HS 11/08/23 09/06/25 History ferrous sulfate 325 mg (65 mg 325 mg PO DAILY@0800 11/28/24 09/06/25 History iron) tablet (FeroSul) escitalopram oxalate 20 mg tablet 20 mg PO HS 01/04/25 09/06/25 History loperamide 2 mg capsule 2 mg PO Q1-3H PRN loose stool 01/05/25 09/06/25 History (Anti-Diarrheal (loperamide)) cyanocobalamin (vitamin B-12) 1,000 mcg IM MONTHLY 04/14/25 09/06/25 History 1,000 mcg/mL injection solution donepezil 10 mg tablet 10 mg PO DAILY 09/05/25 09/06/25 History furosemide 40 mg tablet 20 mg PO DAILY 09/05/25 09/06/25 History lactobacillus combination no.9 4 4,000 mmu cells PO DAILY 09/05/25 09/06/25 History billion cell capsule (Adult 50 Plus Probiotic) levetiracetam 750 mg tablet 750 mg PO Q12HR 30 days #180 tabs 09/05/25 09/06/25 Rx memantine 10 mg tablet 10 mg PO BID #180 tabs 09/05/25 09/06/25 Rx risankizumab-rzaa 150 mg/mL 150 mg subcut ONCE 09/05/25 09/06/25 History subcutaneous pen injector (Skyrizi) ubidecarenone-omega 3-vit E 25 1 cap PO DAILY 09/05/25 09/06/25 History mg-150 (90-60) mg-200 unit capsule (Co G-32-Dgggoyt E-Fish Oil) Allergies Allergy/AdvReac Type Severity Reaction Status Date / Time No Known Allergies Allergy Verified 09/06/25 10:30 Vital Signs Vital Signs - 24 hr 09/05/25 22:07 09/05/25 22:21 09/05/25 22:30 Temperature Pulse Rate 66 143 H 132 H Respiratory Rate 18 23 H 17 Blood Pressure 140/105 H 140/105 H 141/97 H Pulse Oximetry 97 97 96 Oxygen Delivery Room Air Oxygen Flow Rate 09/05/25 22:45 09/05/25 23:00 09/05/25 23:01 Temperature 37.2 C Pulse Rate 141 H 145 H 152 H Respiratory Rate 21 H 25 H 18 Blood Pressure 139/105 H Pulse Oximetry 94 100 Oxygen Delivery Oxygen Flow Rate 09/05/25 23:15 09/05/25 23:26 09/05/25 23:30 Temperature Pulse Rate 141 H 173 H 173 H Respiratory Rate 22 H 25 H 19 Blood Pressure 166/129 H Pulse Oximetry Oxygen Delivery Oxygen Flow Rate 09/05/25 23:53 09/06/25 00:00 09/06/25 00:01 Temperature Pulse Rate 160 H 135 H 149 H Respiratory Rate 23 H 22 H 23 H Blood Pressure 159/123 H 173/93 H Pulse Oximetry Oxygen Delivery Oxygen Flow Rate 09/06/25 00:05 09/06/25 00:15 09/06/25 00:23 Temperature Pulse Rate 151 H 149 H 144 H Respiratory Rate 13 Blood Pressure 173/93 H 159/104 H Pulse Oximetry Oxygen Delivery Oxygen Flow Rate 09/06/25 00:25 09/06/25 00:30 09/06/25 00:31 Temperature Pulse Rate 152 H 158 H 137 H Respiratory Rate 22 H 22 H 31 H Blood Pressure 159/104 H 173/103 H Pulse Oximetry 91 Oxygen Delivery Oxygen Flow Rate 09/06/25 00:41 09/06/25 00:41 09/06/25 00:42 Temperature Pulse Rate Respiratory Rate Blood Pressure Pulse Oximetry 89 L 95 100 Oxygen Delivery Room Air Nasal Cannula Nasal Cannula Oxygen Flow Rate 2 2 09/06/25 00:46 09/06/25 00:47 09/06/25 01:17 Temperature Pulse Rate 131 H 142 H 135 H Respiratory Rate 30 H 30 H Blood Pressure 164/105 H 164/105 H Pulse Oximetry 89 L 90 Oxygen Delivery Oxygen Flow Rate 09/06/25 01:20 09/06/25 01:31 09/06/25 01:46 Temperature Pulse Rate 122 H 130 H 135 H Respiratory Rate 28 H 23 H 24 H Blood Pressure 156/115 H 141/118 H 155/75 H Pulse Oximetry 94 96 96 Oxygen Delivery Oxygen Flow Rate 09/06/25 02:01 09/06/25 02:15 09/06/25 02:31 Temperature Pulse Rate 118 H 120 H 114 H Respiratory Rate 26 H 15 24 H Blood Pressure 132/89 137/92 H 130/60 Pulse Oximetry 98 98 100 Oxygen Delivery Oxygen Flow Rate 09/06/25 02:46 09/06/25 03:00 09/06/25 03:16 Temperature Pulse Rate 126 H 110 H 112 H Respiratory Rate 21 H 25 H 27 H Blood Pressure 135/73 135/76 128/74 Pulse Oximetry 98 98 97 Oxygen Delivery Oxygen Flow Rate 09/06/25 03:31 09/06/25 03:45 09/06/25 04:00 Temperature Pulse Rate 108 H 111 H 106 H Respiratory Rate 27 H 25 H 24 H Blood Pressure 121/69 117/70 114/69 Pulse Oximetry Oxygen Delivery Oxygen Flow Rate 09/06/25 04:15 09/06/25 04:16 09/06/25 04:30 Temperature Pulse Rate 118 H 118 H 104 H Respiratory Rate 25 H 25 H 29 H Blood Pressure 123/71 Pulse Oximetry 100 Oxygen Delivery Oxygen Flow Rate 09/06/25 04:31 09/06/25 04:35 09/06/25 04:45 Temperature 39.6 C H Pulse Rate 109 H 110 H 105 H Respiratory Rate 25 H 28 H 28 H Blood Pressure 122/71 113/69 122/71 Pulse Oximetry 100 97 100 Oxygen Delivery Oxygen Flow Rate 09/06/25 04:57 09/06/25 05:00 09/06/25 05:15 Temperature 38.5 C H Pulse Rate 100 107 H Respiratory Rate 27 H 25 H Blood Pressure 116/67 118/62 Pulse Oximetry 99 100 Oxygen Delivery Oxygen Flow Rate 09/06/25 05:30 09/06/25 06:02 09/06/25 08:00 Temperature 38.3 C H 38.3 C H 36.4 C Pulse Rate 103 H 104 H 85 Respiratory Rate 33 H 20 18 Blood Pressure 98/56 L 111/64 100/53 L Pulse Oximetry 97 100 96 Oxygen Delivery Oxygen Flow Rate 09/06/25 08:00 09/06/25 08:39 09/06/25 08:39 Temperature Pulse Rate 80 80 80 Respiratory Rate Blood Pressure 99/50 L 99/50 L 99/50 L Pulse Oximetry Oxygen Delivery Oxygen Flow Rate 09/06/25 10:00 09/06/25 11:45 Temperature 36.4 C L Pulse Rate 93 73 Respiratory Rate 18 Blood Pressure 92/66 L 122/89 Pulse Oximetry 94 Oxygen Delivery Oxygen Flow Rate Exam Narrative: General: Alert oriented x3, no acute distress Neck: Supple, no JVD Chest: Bilaterally clear to auscultation, no rales or rhonchi Cardiac: S1, S2 +, regular rate, regular rhythm, no murmurs or rubs Extremities: Bilateral lower extremity edema 1+, no skin rash Neurologic: Alert and oriented x3, no focal neurological deficits Results Labs and Meds 09/06/25 09:03 09/06/25 09:03 Lab results: Cardiac Enzymes 09/05/25 09/06/25 Range/Units 23:50 09:03 AST 38 34 (17-59) U/L Troponin I 0.027 (0.000-0.034) ng/mL Coagulation 09/05/25 Range/Units 23:50 PT 14.1 (11.1-14.7) Seconds APTT 32.5 (22.3-36.8) Seconds CBC 09/05/25 09/06/25 Range/Units 23:50 09:03 WBC 13.4 H 21.5 H (4.5-10.0) K/mm3 RBC 4.31 L 3.62 L (4.6-6.20) M/mm3 Hgb 14.3 D 12.1 L (14.0-18.0) g/dL Hct 43.5 36.7 L (42.0-52.0) % Plt Count 201 168 (150-375) k/mm3 Lymph # (Auto) 0.96 0.73 L (0.9-3.2) K/mm3 [place] # (Auto) 0.7 H 1.1 H (0.1-0.6) K/mm3 Eos # (Auto) 0.1 0.0 (0-0.3) K/mm3 Baso # (Auto) 0.0 0.1 (0.0-0.1) K/mm3 Comprehensive Metabolic Panel 09/05/25 09/06/25 Range/Units 23:50 09:03 Sodium 137 140 (137-145) mmol/L Potassium 3.5 3.8 (3.4-5.0) mmol/L Chloride 101 106 (98-107) mmol/L Carbon Dioxide 26 28 (22-30) mmol/L BUN 24 H 23 H (9-20) mg/dL Creatinine 1.79 H 1.97 H (0.7-1.3) mg/dL Glucose 99 98 (65-110) mg/dL Calcium 9.4 8.3 L (8.4-10.2) mg/dL AST 38 34 (17-59) U/L ALT 31 26 (6-50) U/L Alkaline Phosphatase 114 91 (38-126) U/L Total Protein 8.3 H 6.2 L (6.3-8.2) g/dL Albumin 4.6 3.4 L (3.5-5.1) g/dL Intake and Output 09/05/25 09/06/25 09/06/25 23:59 07:59 15:59 Intake Total 1304.5 201.1 Output Total 500 1400 Balance -500 -95.5 201.1 Intake: IV 1304.5 201.1 Sodium Chloride 0.9% IV 1,000 1000 ml @ 999 mls/hr IV CONT .Q1H1M STA Rx#:[id number] dilTIAZem 100 MG/100 ML 100 mg 4.5 93.6 In 100 ml @ 2.5 MG/HR 2.5 mls/ hr IV CONT .Q24H SUZAN Rx#: [id number] Azithromycin IV 500 mg In 250 Sodium Chloride 0.9% IV 250 ml @ 250 mls/hr IVPB ONCE STA Rx#: [id number] cefTRIAXone 1 gm In Sodium 50 Chloride 0.9% IV 50 ml @ 100 mls/hr IVPB ONCE STA Rx#: [id number] levETIRAcetam IV 750 mg In 107.5 Dextrose 5% 100 ml @ 430 mls/hr IVPB Q12HR SUZAN Rx#:[id number] Oral 0 Output: Urine 500 Catheter Urine 1400 Urethral Catheter 1400 Patient Weight 09/06/25 23:59 Weight 61 kg
[2025-09-06] MEDS: ACETAMINOPHEN 650 MG SUPPOSITORY RECTAL (16:23)
[2025-09-06] MEDS: ENOXAPARIN 60 MG/0.6 ML SYRINGE SUB-Q (20:08)
[2025-09-06] MEDS: ESCITALOPRAM OXALATE 10 MG TABLET 20 MG PO (20:39)
[2025-09-07] VITALS (25 sets, daily range): BP systolic 111–161; BP diastolic 55–92; PULSE 82–126; RESP 16–20; TEMP 36.3–37.4; O2SAT 93–95
[2025-09-07] MEDS: dilTIAZem 100 MG/100 ML 100 MG/100 ML BAG IV CONT (00:04)
[2025-09-07 04:44] LABS: Hematocrit 36.5 % (42.0-52.0); Hemoglobin 12.0 g/dL (14.0-18.0); Immature Granulocyte Percent A 0.8 % (0-0.5); Lymphocytes Absolute Auto 0.52 K/mm3 (0.9-3.2); Mean Corpuscular HGB Conc 32.9 g/dl (32-36); Mean Corpuscular Hemoglobin 32.6 pg (26-34); Mean Corpuscular Volume 99.2 fl (80-100); Nucleated Red Blood Cells Absolute Auto 0.000 K/mm3 (0.0-0.012); Nucleated Red Blood Cells Perc 0.0 % (0.0-0.2); Platelet Count Result 174 k/mm3 (150-375); Red Blood Count 3.68 M/mm3 (4.6-6.20); White Blood Count 18.9 K/mm3 (4.5-10.0)
[2025-09-07 05:05] LABS: Alanine Aminotransferase 25 U/L (6-50); Albumin Level 3.6 g/dL (3.5-5.1); Alkaline Phosphatase 115 U/L (38-126); Anion Gap 8 mmol/L (4-12); Aspartate Amino Transferase 33 U/L (17-59); Bilirubin,Total 1.1 mg/dL (0.2-1.3); Blood Urea Nitrogen 20 mg/dL (9-20); Calcium 8.2 mg/dL (8.4-10.2); Carbon Dioxide 22 mmol/L (22-30); Chloride 107 mmol/L (98-107); Estimated CRCL calculation 25 ml/min; Estimated Glomerular Filt Rate 35; Glucose 104 mg/dL (65-110); Magnesium 2.1 mg/dL (1.6-2.3); Potassium 3.9 mmol/L (3.4-5.0); Sodium 137 mmol/L (137-145); Total Protein 6.7 g/dL (6.3-8.2)
[2025-09-07] MEDS: FERROUS SULFATE 325 MG TABLET BY MOUTH (08:43)
[2025-09-07] MEDS: MEMANTINE 10 MG TABLET PO ×2 (08:43→17:01)
[2025-09-07] MEDS: DOXYCYCLINE IV 100 MG in SODIUM CHLORIDE 0.9% IV 100 ML IVPB (08:43)
[2025-09-07] MEDS: DONEPEZIL HCL 10 MG TABLET PO (08:43)
[2025-09-07] MEDS: ACIDOPHILUS/BULGARICUS CHEWABLE TABLET 1 TABLET BY MOUTH (08:43)
[2025-09-07] MEDS: ASPIRIN 81 MG ENTERIC TABLET PO (08:43)
--- NOTE | 2025-09-07 09:25 | PM.PNCARD ---
Progress Note: A&P Assessment and Plan (1) Atrial fibrillation with rapid ventricular response: Code(s): I48.91 - Unspecified atrial fibrillation Status: Acute (2) Cardiomyopathy: Code(s): I42.9 - Cardiomyopathy, unspecified Status: Chronic (3) Hypertension: Qualifiers: Hypertension type: primary hypertension Qualified Code(s): I10 - Essential (primary) hypertension Code(s): I10 - Essential (primary) hypertension Status: Chronic (4) Hyperlipidemia: Qualifiers: Hyperlipidemia type: mixed hyperlipidemia Qualified Code(s): E78.2 - Mixed hyperlipidemia Code(s): E78.5 - Hyperlipidemia, unspecified Status: Chronic Plan Assessment: Altered mental status Pneumonia on abx Chronic AFib now in RVR Hypertension Hyperlipidemia Peripheral arterial disease Coronary artery disease Plan: Start metoprolol 25 mg po Q6 hours and wean Cardizem drip for a target HR <90 Anticoagulation with Lovenox. Switch to DOAC- Xarelto for ease of once daily dosing Per patient's who is his primary HCPOA, patient was evaluated in the past for LAAC and deemed not to be a candidate Continue aspirin, statin Continue cilostazol Check and replace electrolytes to keep potassium greater than 4 and magnesium greater than 2 TTE showed LVEF 50%, no significant valvular pathology Subjective Date/time seen: 09/07/25 09:25 Interval history: Reason for the encounter: A fib with RVR Relevant history: 80-year-old male with history of Alzheimer's dementia, hypertension, hyperlipidemia, peripheral vascular disease, CAD, cardiomyopathy, chronic AFib, depression, seizures, chronic anemia, gout, osteoarthritis, renal stones, CKD stage 3, Crohn's disease presented to the ER with chief complaints of altered mental status. He was diagnosed with pneumonia and started on IV antibiotics. He was found to be in AFib with RVR. He was started on cardizem drip and cardiology was consulted for further recommendations. He is chronically in A fib and previously deemed not to be a candidate for LAAC per . Interval history: He is more awake today and answered all my questions. He states that he is feeling better today. He denies chest pain or shortness of breath. Telemetry shows A fib with rates in the 110s. Review of Systems Cardiovascular: Comments: As per HPI. Respiratory: Comments: As per HPI. Exam Narrative: General: Alert oriented x3, no acute distress Neck: Supple, no JVD Chest: Bilaterally clear to auscultation, no rales or rhonchi Cardiac: S1, S2 +, irregularly irregular rhythm, no murmurs or rubs Extremities: No pedal edema, no skin rash Neurologic: Alert and oriented x3, no focal neurological deficits Objective Data Vital Signs Vital Signs: Vital Signs - 24 hr 09/06/25 10:00 09/06/25 10:00 09/06/25 11:45 Temperature 36.4 C L Pulse Rate 93 90 73 Respiratory Rate 18 Blood Pressure 92/66 L 122/89 Pulse Oximetry 94 Oxygen Delivery 09/06/25 12:00 09/06/25 12:00 09/06/25 14:00 Temperature Pulse Rate 102 H 102 H 123 H Respiratory Rate Blood Pressure 122/89 145/79 H Pulse Oximetry Oxygen Delivery 09/06/25 14:00 09/06/25 14:00 09/06/25 15:34 Temperature Pulse Rate 123 H 117 H 121 H Respiratory Rate Blood Pressure 145/79 H 145/79 H Pulse Oximetry Oxygen Delivery 09/06/25 16:00 09/06/25 16:00 09/06/25 16:00 Temperature 39.6 C H Pulse Rate 121 H 125 H 125 H Respiratory Rate 18 Blood Pressure 134/62 134/62 Pulse Oximetry 90 Oxygen Delivery 09/06/25 16:23 09/06/25 18:00 09/06/25 18:00 Temperature 37.9 C H Pulse Rate 105 H 105 H Respiratory Rate Blood Pressure 126/60 Pulse Oximetry Oxygen Delivery 09/06/25 18:00 09/06/25 18:27 09/06/25 20:00 Temperature 37.2 C 37.9 C H Pulse Rate 105 H 109 H Respiratory Rate Blood Pressure 126/60 Pulse Oximetry Oxygen Delivery 09/06/25 21:00 09/06/25 21:03 09/06/25 21:20 Temperature 36.9 C Pulse Rate 105 H 107 H Respiratory Rate 18 Blood Pressure 147/85 H 147/85 H Pulse Oximetry 94 94 Oxygen Delivery Room Air 09/06/25 22:07 09/06/25 22:22 09/07/25 00:00 Temperature Pulse Rate 110 H 115 H 117 H Respiratory Rate Blood Pressure 154/85 H Pulse Oximetry Oxygen Delivery 09/07/25 00:04 09/07/25 00:04 09/07/25 00:25 Temperature 37.1 C Pulse Rate 107 H 107 H 113 H Respiratory Rate 17 Blood Pressure 139/68 Pulse Oximetry 95 Oxygen Delivery 09/07/25 00:30 09/07/25 02:22 09/07/25 02:35 Temperature Pulse Rate 113 H 123 H 116 H Respiratory Rate Blood Pressure 139/68 130/72 Pulse Oximetry Oxygen Delivery 09/07/25 04:00 09/07/25 04:55 09/07/25 04:55 Temperature 36.6 C Pulse Rate 121 H 114 H 113 H Respiratory Rate 18 Blood Pressure 151/83 H 139/68 Pulse Oximetry 95 Oxygen Delivery 09/07/25 06:00 09/07/25 06:00 09/07/25 07:41 Temperature 36.3 C L Pulse Rate 113 H 126 H 115 H Respiratory Rate 20 Blood Pressure 137/81 143/66 H Pulse Oximetry 95 Oxygen Delivery 09/07/25 08:00 09/07/25 08:00 09/07/25 08:00 Temperature Pulse Rate 115 H 115 H 109 H Respiratory Rate 20 Blood Pressure 143/66 H Pulse Oximetry 95 Oxygen Delivery Room Air Intake/Output Intake/Output: Intake & Output 09/04/25 09/05/25 09/06/25 09/07/25 23:59 23:59 23:59 23:59 Intake Total 1981.0 608.2 Output Total 500 2700 750 Balance -500 -719.0 -141.8 Meds/Results Medications: Active Medications Generic Name Dose Route Start Last Admin Trade Name Freq PRN Reason Stop Dose Admin Acetaminophen 650 mg 09/06/25 15:56 09/06/25 16:23 Acetaminophen 650 Mg Suppository RECTAL 650 mg Q4H PRN Administration Fever > 100.4 Allopurinol 100 mg 09/06/25 21:00 09/06/25 20:40 Allopurinol 100 Mg Tablet PO 100 mg HS SUZAN Administration Aspirin 81 mg 09/07/25 09:00 09/07/25 08:43 Aspirin 81 Mg Enteric Tablet PO 81 mg QAM SUZAN Administration Atorvastatin Calcium 10 mg 09/06/25 18:00 09/06/25 18:28 Atorvastatin 10 Mg Tablet PO Not Given QPM SUZAN Cilostazol 100 mg 09/06/25 21:00 09/06/25 20:40 Cilostazol 100 Mg Tablet PO 100 mg HS SUZAN Administration Cyanocobalamin 1,000 mcg 10/06/25 09:00 Cyanocobalamin Inj 1,000 Mcg/Ml Vial IM MONTHLY SUZAN Donepezil HCl 10 mg 09/07/25 09:00 09/07/25 08:43 Donepezil Hcl 10 Mg Tablet PO 10 mg DAILY SUZAN Administration Enoxaparin Sodium 60 mg 09/06/25 21:00 09/06/25 20:08 Enoxaparin 60 Mg/0.6 Ml Syringe SUB-Q 60 mg HS SUZAN Administration Escitalopram Oxalate 20 mg 09/06/25 21:00 09/06/25 20:39 Escitalopram Oxalate 10 Mg Tablet PO 20 mg HS SUZAN Administration Ferrous Sulfate 325 mg 09/07/25 08:00 09/07/25 08:43 Ferrous Sulfate 325 Mg Tablet BY MOUTH 325 mg DAILY@0800 SUZAN Administration Diltiazem HCl 100 mg in 100 mls @ 5 mls/hr 09/06/25 08:05 09/07/25 08:00 Cardizem 100 Mg/100 Ml IV CONT 5 mg/hr .Q20H SUZAN 5 mls/hr 5 MG/HR Infusion Ceftriaxone Sodium 1 gm/ 50 mls @ 100 mls/hr 09/06/25 21:00 09/06/25 20:15 Sodium Chloride IVPB 100 mls/hr Q24H SUZAN Administration Doxycycline Hyclate 100 mg/ 100 mls @ 100 mls/hr 09/06/25 09:00 09/07/25 08:43 Sodium Chloride IVPB 100 mls/hr Q12H SUZAN Administration Levetiracetam 750 mg/ Dextrose 107.5 mls @ 430 mls/hr 09/06/25 09:00 09/07/25 08:43 IVPB 430 mls/hr Q12HR SUZAN Administration Lactobacillus Acidophilus 1 tablet 09/07/25 09:00 09/07/25 08:43 Acidophilus/Bulgaricus Chewable Tablet BY MOUTH 1 tablet DAILY SUZAN Administration Memantine 10 mg 09/06/25 17:00 09/07/25 08:43 Memantine 10 Mg Tablet PO 10 mg BID SUZAN Administration Perflutren Lipid Microsphere 0 ml 09/06/25 08:42 Perflutren Lipid Microspheres 1.5 Ml Vial Diluted To 10 Ml Total Volume IV PUSH 09/09/25 08:42 ONCE PRN adequate visualization Protocol Radiology Results: ITS Impressions Chest/Abdomen/Pelvis CTA 09/06/25 06:36 IMPRESSION: 1. Combination of pneumonia and rounded atelectasis in the lower lobes. 2. No pulmonary embolus. 3. Chronic dilatation of ileum with chronic mild wall thickening of the terminal ileum, consistent with Crohn disease and adynamic ileus. Chest X-Ray 09/06/25 06:56 IMPRESSION: 1. Bibasilar atelectasis and/or airspace disease. Head CT 09/06/25 06:58 IMPRESSION: 1. No acute intracranial findings. Labs Labs: Laboratory Results - last 24 hr 09/06/25 09/07/25 09:03 04:36 WBC 21.5 H 18.9 H RBC 3.62 L 3.68 L Hgb 12.1 L 12.0 L Hct 36.7 L 36.5 L MCV 101.4 H 99.2 MCH 33.4 32.6 MCHC 33.0 32.9 RDW 13.3 13.4 Plt Count 168 174 MPV 9.1 9.3 Immature Gran % (Auto) 0.5 0.8 H Neut % (Auto) 90.6 H 90.1 H Lymph % (Auto) 3.4 L 2.7 L [place] % (Auto) 5.1 5.8 Eos % (Auto) 0.1 0.3 Baso % (Auto) 0.3 0.3 Lymph # (Auto) 0.73 L 0.52 L [place] # (Auto) 1.1 H 1.1 H Eos # (Auto) 0.0 0.1 Baso # (Auto) 0.1 0.1 Abs Immat Gran (auto) 0.10 H 0.15 H Absolute Neuts (auto) 19.5 H 17.1 H Absolute Nucleated RBC 0.000 0.000 Nucleated RBC % 0.0 0.0 Sodium 140 137 Potassium 3.8 3.9 Chloride 106 107 Carbon Dioxide 28 22 Anion Gap 6 8 BUN 23 H 20 Creatinine 1.97 H 1.86 H Estim Creat Clear Calc 24 25 Estimated GFR 33 L 35 L Glucose 98 104 Calcium 8.3 L 8.2 L Magnesium 1.6 2.1 Total Bilirubin 0.9 1.1 AST 34 33 ALT 26 25 Alkaline Phosphatase 91 115 Total Protein 6.2 L 6.7 Albumin 3.4 L 3.6
[2025-09-07] MEDS: METOPROLOL TARTRATE 25 MG TABLET PO ×2 (12:11→17:01)
[2025-09-07] MEDS: ATORVASTATIN 10 MG TABLET PO (17:01)
--- NOTE | 2025-09-07 18:27 | PM.IMPN2 ---
Assessment and Plan Assessment and Plan (1) Altered mental status: Qualifiers: Altered mental status type: unspecified Qualified Code(s): R41.82 - Altered mental status, unspecified Code(s): R41.82 - Altered mental status, unspecified Status: Acute Assessment and Plan: Patient brought to ED for AMS. CT brain showing no acute findings. Acute encephalopathy felt to be multifactorial PREMA on pre-existing CKD, Underlying infection, AFib/RVR Mental status improved Monitor closely (2) Atrial fibrillation with rapid ventricular response: Code(s): I48.91 - Unspecified atrial fibrillation Status: Acute Assessment and Plan: Patient found to have AFib with RVR Diltiazem IV once then drip started. Cardiology consulted. [id number] score 5. Therapeutic Lovenox started. Rate better controlled and able to wean down on diltiazem drip. BP stable. Metoprolol stared today. Check TSH. Consider changing to Eliquis (but elevated HAS-BLED score 4). (3) Community acquired bilateral lower lobe pneumonia: Code(s): J18.9 - Pneumonia, unspecified organism Status: Acute Assessment and Plan: Patient with sepsis (fever, tachycardiac, leukocytosis) related to bilateral lower lobe pneumonia CTA chest showing centrilobular nodules and tree-in-bud opacities in the lower lobes, consistent with pneumonia. There is material in the bronchi in the lower lobes. He passed a bedside swallow but he will need a MBS given these CT findings. O2 support as needed Fever curve better. WBC trending down. Urine strep, Legionella antigen ordered BCx pending. Continue with doxycycline, ceftriaxone (4) Sepsis: Qualifiers: Sepsis type: sepsis due to unspecified organism Code(s): A41.9 - Sepsis, unspecified organism Status: Acute Assessment and Plan: Related to PNA. As above. (5) Chronic kidney disease, stage 3: Qualifiers: Chronic kidney disease stage 3 subtype: stage 3b (GFR 30-44) Qualified Code(s): N18.32 - Chronic kidney disease, stage 3b Code(s): N18.30 - Chronic kidney disease, stage 3 unspecified Status: Chronic Assessment and Plan: Cr 1.97 on admission and within his baseline renal function. Monitor kidney function, electrolytes, UOP Avoid nephrotoxins. (6) Crohn's disease: Qualifiers: Gastrointestinal tract location: unspecified location Digestive disease complication type: without complication Qualified Code(s): K50.90 - Crohn's disease, unspecified, without complications Code(s): K50.90 - Crohn's disease, unspecified, without complications Status: Chronic Assessment and Plan: Patient with known Crohns disease CT Abd showing chronic dilation of the ileum with chronic mild wall thickening of the terminal ileum. More likely related to his Crohns disease and less likely ileus. Follow. Monitor stool output. Hold Skyrizi (7) Dementia of the Alzheimer's type: Code(s): G30.9 - Alzheimer's disease, unspecified; F02.80 - Dementia in other diseases classified elsewhere, unspecified severity, without behavioral disturbance, psychotic disturbance, mood disturbance, and anxiety Status: Acute Assessment and Plan: Chronic. Mental status better. Continue Aricept Follow (8) Seizure disorder: Code(s): G40.909 - Epilepsy, unspecified, not intractable, without status epilepticus Status: Acute Assessment and Plan: Patient continued on Keppra but hanged to IV formulation. Patient improved so will change back to oral Follow. Plan Code status: Full DVT prophylaxis: On therapeutic Lovenox Subjective Date/time seen: 09/07/25 18:27 Interval history: 80yo male with dementia, CHF, Crohns disease and AFib here for altered mental status. Assuming care. Chart reviewed. Patient is eating some foods. No nausea or vomiting. No chest pain or cough. No bowel movements. He is passing flatus. He does complain of abdominal pain. He is alert but confused so hx may not be accurate Review of Systems Review of Systems: ROS unobtainable: Yes unobtainable due to mental status Exam Narrative: Tm 103.2 98.6 127/65 85 20 93% ra Gen - NARD Chest - bibasilar inspiratory crackles. CV - irregularly irregular. Tele showing AFib with RVR Abd - Soft, mildly protuberant and tympanitic. +BS. some vol guarding Ext - No pedal edema Neuro - Alert but confused. feeding himself Psych - pleasant and cooperative Skin - Warm and dry Objective Data Vital Signs Vital Signs: Vital Signs - 24 hr 09/06/25 20:00 09/06/25 21:00 09/06/25 21:03 Temperature 98.5 F Pulse Rate 109 H 105 H 107 H Respiratory Rate 18 Blood Pressure 147/85 H 147/85 H Pulse Oximetry 94 Oxygen Delivery 09/06/25 21:20 09/06/25 22:07 09/06/25 22:22 Temperature Pulse Rate 110 H 115 H Respiratory Rate Blood Pressure 154/85 H Pulse Oximetry 94 Oxygen Delivery Room Air 09/07/25 00:00 09/07/25 00:04 09/07/25 00:04 Temperature Pulse Rate 117 H 107 H 107 H Respiratory Rate Blood Pressure Pulse Oximetry Oxygen Delivery 09/07/25 00:25 09/07/25 00:30 09/07/25 02:22 Temperature 98.7 F Pulse Rate 113 H 113 H 123 H Respiratory Rate 17 Blood Pressure 139/68 139/68 Pulse Oximetry 95 Oxygen Delivery 09/07/25 02:35 09/07/25 04:00 09/07/25 04:55 Temperature 97.8 F Pulse Rate 116 H 121 H 114 H Respiratory Rate 18 Blood Pressure 130/72 151/83 H Pulse Oximetry 95 Oxygen Delivery 09/07/25 04:55 09/07/25 06:00 09/07/25 06:00 Temperature Pulse Rate 113 H 113 H 126 H Respiratory Rate Blood Pressure 139/68 137/81 Pulse Oximetry Oxygen Delivery 09/07/25 07:41 09/07/25 08:00 09/07/25 08:00 Temperature 97.3 F L Pulse Rate 115 H 115 H 115 H Respiratory Rate 20 20 Blood Pressure 143/66 H 143/66 H Pulse Oximetry 95 95 Oxygen Delivery Room Air 09/07/25 08:00 09/07/25 10:00 09/07/25 10:00 Temperature 97.7 F Pulse Rate 109 H 118 H 118 H Respiratory Rate 18 Blood Pressure 129/58 L 129/58 L Pulse Oximetry 95 Oxygen Delivery 09/07/25 10:00 09/07/25 10:40 09/07/25 11:31 Temperature 99.3 F Pulse Rate 118 H 124 H Respiratory Rate 18 Blood Pressure 161/89 H Pulse Oximetry 95 Oxygen Delivery Room Air 09/07/25 12:00 09/07/25 12:00 09/07/25 12:00 Temperature Pulse Rate 124 H 118 H 120 H Respiratory Rate 18 Blood Pressure 161/89 H Pulse Oximetry 95 Oxygen Delivery Room Air 09/07/25 12:11 09/07/25 14:00 09/07/25 14:00 Temperature Pulse Rate 118 H 89 85 Respiratory Rate Blood Pressure 128/92 H 128/62 Pulse Oximetry Oxygen Delivery 09/07/25 14:00 09/07/25 16:00 09/07/25 16:00 Temperature 98.6 F Pulse Rate 86 99 100 Respiratory Rate 20 20 Blood Pressure 127/65 Pulse Oximetry 93 93 Oxygen Delivery Room Air 09/07/25 16:00 09/07/25 17:01 09/07/25 18:00 Temperature Pulse Rate 101 H 100 85 Respiratory Rate Blood Pressure Pulse Oximetry Oxygen Delivery Intake/Output Intake/Output: Intake & Output 09/04/25 09/05/25 09/06/25 09/07/25 23:59 23:59 23:59 23:59 Intake Total 1981.0 965.7 Output Total 500 2700 750 Balance -500 -719.0 215.7 Meds/Results Medications: Active Medications Generic Name Dose Route Start Last Admin Trade Name Freq PRN Reason Stop Dose Admin Acetaminophen 650 mg 09/06/25 15:56 09/06/25 16:23 Acetaminophen 650 Mg Suppository RECTAL 650 mg Q4H PRN Administration Fever > 100.4 Allopurinol 100 mg 09/06/25 21:00 09/06/25 20:40 Allopurinol 100 Mg Tablet PO 100 mg HS SUZAN Administration Aspirin 81 mg 09/07/25 09:00 09/07/25 08:43 Aspirin 81 Mg Enteric Tablet PO 81 mg QAM SUZAN Administration Atorvastatin Calcium 10 mg 09/06/25 18:00 09/07/25 17:01 Atorvastatin 10 Mg Tablet PO 10 mg QPM SUZAN Administration Cilostazol 100 mg 09/06/25 21:00 09/06/25 20:40 Cilostazol 100 Mg Tablet PO 100 mg HS SUZAN Administration Cyanocobalamin 1,000 mcg 10/06/25 09:00 Cyanocobalamin Inj 1,000 Mcg/Ml Vial IM MONTHLY SUZAN Donepezil HCl 10 mg 09/07/25 09:00 09/07/25 08:43 Donepezil Hcl 10 Mg Tablet PO 10 mg DAILY SUZAN Administration Enoxaparin Sodium 60 mg 09/06/25 21:00 09/06/25 20:08 Enoxaparin 60 Mg/0.6 Ml Syringe SUB-Q 60 mg HS SUZAN Administration Escitalopram Oxalate 20 mg 09/06/25 21:00 09/06/25 20:39 Escitalopram Oxalate 10 Mg Tablet PO 20 mg HS SUZAN Administration Ferrous Sulfate 325 mg 09/07/25 08:00 09/07/25 08:43 Ferrous Sulfate 325 Mg Tablet BY MOUTH 325 mg DAILY@0800 SUZAN Administration Diltiazem HCl 100 mg in 100 mls @ 2.5 mls/hr 09/06/25 08:05 09/07/25 14:00 Cardizem 100 Mg/100 Ml IV CONT 2.5 mg/hr .Q24H SUZAN 2.5 mls/hr 2.5 MG/HR Infusion Ceftriaxone Sodium 1 gm/ 50 mls @ 100 mls/hr 09/06/25 21:00 09/06/25 20:15 Sodium Chloride IVPB 100 mls/hr Q24H SUZAN Administration Doxycycline Hyclate 100 mg/ 100 mls @ 100 mls/hr 09/06/25 09:00 09/07/25 10:34 Sodium Chloride IVPB Infused Q12H SUZAN Infusion Levetiracetam 750 mg/ Dextrose 107.5 mls @ 430 mls/hr 09/06/25 09:00 09/07/25 10:34 IVPB Infused Q12HR SUZAN Infusion Lactobacillus Acidophilus 1 tablet 09/07/25 09:00 09/07/25 08:43 Acidophilus/Bulgaricus Chewable Tablet BY MOUTH 1 tablet DAILY SUZAN Administration Memantine 10 mg 09/06/25 17:00 09/07/25 17:01 Memantine 10 Mg Tablet PO 10 mg BID SUZAN Administration Metoprolol Tartrate 25 mg 09/07/25 12:00 09/07/25 17:01 Metoprolol Tartrate 25 Mg Tablet PO 25 mg Q6HR SUZAN Administration Perflutren Lipid Microsphere 0 ml 09/06/25 08:42 Perflutren Lipid Microspheres 1.5 Ml Vial Diluted To 10 Ml Total Volume IV PUSH 09/09/25 08:42 ONCE PRN adequate visualization Protocol Radiology Results: ITS Impressions Chest/Abdomen/Pelvis CTA 09/06/25 06:36 IMPRESSION: 1. Combination of pneumonia and rounded atelectasis in the lower lobes. 2. No pulmonary embolus. 3. Chronic dilatation of ileum with chronic mild wall thickening of the terminal ileum, consistent with Crohn disease and adynamic ileus. Chest X-Ray 09/06/25 06:56 IMPRESSION: 1. Bibasilar atelectasis and/or airspace disease. Head CT 09/06/25 06:58 IMPRESSION: 1. No acute intracranial findings. Labs Labs: Laboratory Results - last 24 hr 09/07/25 04:36 WBC 18.9 H RBC 3.68 L Hgb 12.0 L Hct 36.5 L MCV 99.2 MCH 32.6 MCHC 32.9 RDW 13.4 Plt Count 174 MPV 9.3 Immature Gran % (Auto) 0.8 H Neut % (Auto) 90.1 H Lymph % (Auto) 2.7 L [place] % (Auto) 5.8 Eos % (Auto) 0.3 Baso % (Auto) 0.3 Lymph # (Auto) 0.52 L [place] # (Auto) 1.1 H Eos # (Auto) 0.1 Baso # (Auto) 0.1 Abs Immat Gran (auto) 0.15 H Absolute Neuts (auto) 17.1 H Absolute Nucleated RBC 0.000 Nucleated RBC % 0.0 Sodium 137 Potassium 3.9 Chloride 107 Carbon Dioxide 22 Anion Gap 8 BUN 20 Creatinine 1.86 H Estim Creat Clear Calc 25 Estimated GFR 35 L Glucose 104 Calcium 8.2 L Magnesium 2.1 Total Bilirubin 1.1 AST 33 ALT 25 Alkaline Phosphatase 115 Total Protein 6.7 Albumin 3.6
[2025-09-07] MEDS: DOXYCYCLINE HYCLATE 100 MG TABLET PO (20:43)
[2025-09-07] MEDS: ENOXAPARIN 60 MG/0.6 ML SYRINGE SUB-Q (20:43)
[2025-09-07] MEDS: cefTRIAXone 1 GM in SODIUM CHLORIDE 0.9% IV 50 ML 100 ML IVPB (20:43)
[2025-09-07] MEDS: ESCITALOPRAM OXALATE 10 MG TABLET 20 MG PO (20:43)
[2025-09-08] VITALS (19 sets, daily range): BP systolic 106–131; BP diastolic 50–77; PULSE 81–105; RESP 16–20; TEMP 36.6–37.6; O2SAT 90–99
[2025-09-08] MEDS: METOPROLOL TARTRATE 25 MG TABLET PO ×2 (00:49→05:19)
[2025-09-08 04:30] LABS: Hematocrit 34.2 % (42.0-52.0); Hemoglobin 11.2 g/dL (14.0-18.0); Immature Granulocyte Percent A 0.8 % (0-0.5); Lymphocytes Absolute Auto 0.65 K/mm3 (0.9-3.2); Mean Corpuscular HGB Conc 32.7 g/dl (32-36); Mean Corpuscular Hemoglobin 32.9 pg (26-34); Mean Corpuscular Volume 100.6 fl (80-100); Nucleated Red Blood Cells Absolute Auto 0.000 K/mm3 (0.0-0.012); Nucleated Red Blood Cells Perc 0.0 % (0.0-0.2); Platelet Count Result 157 k/mm3 (150-375); Red Blood Count 3.40 M/mm3 (4.6-6.20); White Blood Count 12.5 K/mm3 (4.5-10.0)
[2025-09-08 04:47] LABS: Albumin Level 3.2 g/dL (3.5-5.1); Anion Gap 6 mmol/L (4-12); Blood Urea Nitrogen 22 mg/dL (9-20); Calcium 8.6 mg/dL (8.4-10.2); Carbon Dioxide 21 mmol/L (22-30); Chloride 107 mmol/L (98-107); Estimated CRCL calculation 22 ml/min; Estimated Glomerular Filt Rate 29; Glucose 101 mg/dL (65-110); Magnesium 1.9 mg/dL (1.6-2.3); Potassium 3.8 mmol/L (3.4-5.0); Sodium 134 mmol/L (137-145)
[2025-09-08] MEDS: dilTIAZem 100 MG/100 ML 100 MG/100 ML BAG IV CONT (05:18)
[2025-09-08 05:48] LABS: Thyroid Stimulating Hormone Reflex 1.860 uIU/mL (0.465-4.68)
[2025-09-08] MEDS: ACIDOPHILUS/BULGARICUS CHEWABLE TABLET 1 TABLET BY MOUTH (10:34)
[2025-09-08] MEDS: DONEPEZIL HCL 10 MG TABLET PO (10:34)
[2025-09-08] MEDS: DOXYCYCLINE HYCLATE 100 MG TABLET PO ×2 (10:34→20:02)
[2025-09-08] MEDS: FERROUS SULFATE 325 MG TABLET BY MOUTH (10:34)
[2025-09-08] MEDS: MEMANTINE 10 MG TABLET PO ×2 (10:35→20:02)
[2025-09-08] MEDS: ASPIRIN 81 MG ENTERIC TABLET PO (10:35)
--- NOTE | 2025-09-08 10:51 | PM.PNCARD ---
Progress Note: A&P Assessment and Plan (1) Atrial fibrillation with rapid ventricular response: Code(s): I48.91 - Unspecified atrial fibrillation Status: Acute (2) Cardiomyopathy: Code(s): I42.9 - Cardiomyopathy, unspecified Status: Chronic (3) Hypertension: Qualifiers: Hypertension type: primary hypertension Qualified Code(s): I10 - Essential (primary) hypertension Code(s): I10 - Essential (primary) hypertension Status: Chronic (4) Hyperlipidemia: Qualifiers: Hyperlipidemia type: mixed hyperlipidemia Qualified Code(s): E78.2 - Mixed hyperlipidemia Code(s): E78.5 - Hyperlipidemia, unspecified Status: Chronic Plan Assessment: Altered mental status- resolved Pneumonia on abx Chronic AFib with RVR- rates better controlled Hypertension Hyperlipidemia Peripheral arterial disease Coronary artery disease Plan: Increase metoprolol to 50 mg po Q6 hours Stop Cardizem Anticoagulation with Lovenox. Switch to DOAC- Xarelto for ease of once daily dosing Per patient's who is his primary HCPOA, patient was evaluated in the past for LAAC and deemed not to be a candidate Continue aspirin, statin Continue cilostazol Check and replace electrolytes to keep potassium greater than 4 and magnesium greater than 2 Subjective Date/time seen: 09/08/25 10:51 Interval history: Reason for the encounter: A fib with RVR Relevant history: 80-year-old male with history of Alzheimer's dementia, hypertension, hyperlipidemia, peripheral vascular disease, CAD, cardiomyopathy, chronic AFib, depression, seizures, chronic anemia, gout, osteoarthritis, renal stones, CKD stage 3, Crohn's disease presented to the ER with chief complaints of altered mental status. He was diagnosed with pneumonia and started on IV antibiotics. He was found to be in AFib with RVR. He was started on cardizem drip and cardiology was consulted for further recommendations. He is chronically in A fib and previously deemed not to be a candidate for LAAC per . Interval history: He is sitting up in bed and eating his breakfast. No chest pain or shortness of breath. Telemetry shows A fib with rates in the 90s. Review of Systems Cardiovascular: Comments: As per HPI. Respiratory: Comments: As per HPI. Exam Narrative: General: Alert oriented x3, no acute distress Neck: Supple, no JVD Chest: Bilaterally clear to auscultation, no rales or rhonchi Cardiac: S1, S2 +, irregularly irregular rhythm, no murmurs or rubs Extremities: No pedal edema, no skin rash Neurologic: Alert and oriented x3, no focal neurological deficits Objective Data Vital Signs Vital Signs: Vital Signs - 24 hr 09/07/25 11:31 09/07/25 12:00 09/07/25 12:00 Temperature 37.4 C Pulse Rate 124 H 124 H 118 H Respiratory Rate 18 18 Blood Pressure 161/89 H 161/89 H Pulse Oximetry 95 95 Oxygen Delivery Room Air 09/07/25 12:00 09/07/25 12:11 09/07/25 14:00 Temperature Pulse Rate 120 H 118 H 89 Respiratory Rate Blood Pressure 128/92 H Pulse Oximetry Oxygen Delivery 09/07/25 14:00 09/07/25 14:00 09/07/25 16:00 Temperature 37.0 C Pulse Rate 85 86 99 Respiratory Rate 20 Blood Pressure 128/62 127/65 Pulse Oximetry 93 Oxygen Delivery 09/07/25 16:00 09/07/25 16:00 09/07/25 16:00 Temperature Pulse Rate 100 101 H 99 Respiratory Rate 20 Blood Pressure 127/65 Pulse Oximetry 93 Oxygen Delivery Room Air 09/07/25 17:01 09/07/25 18:00 09/07/25 18:00 Temperature Pulse Rate 100 85 87 Respiratory Rate Blood Pressure 111/55 L Pulse Oximetry Oxygen Delivery 09/07/25 18:53 09/07/25 20:00 09/07/25 20:00 Temperature 36.8 C Pulse Rate 82 90 Respiratory Rate 16 Blood Pressure 111/55 L 130/61 Pulse Oximetry 93 Oxygen Delivery Room Air 09/07/25 20:00 09/07/25 20:44 09/07/25 22:00 Temperature Pulse Rate 97 95 98 Respiratory Rate Blood Pressure 118/56 L Pulse Oximetry Oxygen Delivery 09/07/25 22:00 09/07/25 22:46 09/07/25 22:50 Temperature 36.8 C 36.8 C Pulse Rate 98 96 99 Respiratory Rate 16 16 Blood Pressure 127/61 123/65 Pulse Oximetry 95 94 Oxygen Delivery 09/08/25 00:00 09/08/25 00:00 09/08/25 00:00 Temperature Pulse Rate 101 H 99 Respiratory Rate Blood Pressure 112/54 L Pulse Oximetry Oxygen Delivery Room Air 09/08/25 00:49 09/08/25 02:00 09/08/25 02:00 Temperature Pulse Rate 98 93 93 Respiratory Rate Blood Pressure 108/54 L Pulse Oximetry Oxygen Delivery 09/08/25 02:00 09/08/25 04:00 09/08/25 04:00 Temperature 37.2 C Pulse Rate 93 92 96 Respiratory Rate 18 18 Blood Pressure 108/54 L 109/67 109/67 Pulse Oximetry 90 92 Oxygen Delivery 09/08/25 04:00 09/08/25 04:00 09/08/25 05:18 Temperature Pulse Rate 96 98 98 Respiratory Rate 18 Blood Pressure 106/64 Pulse Oximetry 92 Oxygen Delivery Room Air 09/08/25 05:19 09/08/25 06:00 09/08/25 06:00 Temperature Pulse Rate 98 92 92 Respiratory Rate Blood Pressure 106/58 L Pulse Oximetry Oxygen Delivery 09/08/25 06:00 09/08/25 08:00 09/08/25 08:00 Temperature 37.2 C 36.6 C Pulse Rate 92 98 85 Respiratory Rate 18 16 Blood Pressure 106/58 L 121/68 121/68 Pulse Oximetry 93 99 Oxygen Delivery Intake/Output Intake/Output: Intake & Output 09/05/25 09/06/25 09/07/25 09/08/25 23:59 23:59 23:59 23:59 Intake Total 2031.0 1525.7 257.1 Output Total 500 2700 1200 351 Balance -500 -669.0 325.7 -93.9 Meds/Results Medications: Active Medications Generic Name Dose Route Start Last Admin Trade Name Gageq PRN Reason Stop Dose Admin Acetaminophen 650 mg 09/06/25 15:56 09/06/25 16:23 Acetaminophen 650 Mg Suppository RECTAL 650 mg Q4H PRN Administration Fever > 100.4 Allopurinol 100 mg 09/06/25 21:00 09/07/25 20:43 Allopurinol 100 Mg Tablet PO 100 mg HS SUZAN Administration Aspirin 81 mg 09/07/25 09:00 09/08/25 10:35 Aspirin 81 Mg Enteric Tablet PO 81 mg QAM SUZAN Administration Atorvastatin Calcium 10 mg 09/06/25 18:00 09/07/25 17:01 Atorvastatin 10 Mg Tablet PO 10 mg QPM SUZAN Administration Cilostazol 100 mg 09/06/25 21:00 09/07/25 20:43 Cilostazol 100 Mg Tablet PO 100 mg HS SUZAN Administration Cyanocobalamin 1,000 mcg 10/06/25 09:00 Cyanocobalamin Inj 1,000 Mcg/Ml Vial IM MONTHLY SUZAN Donepezil HCl 10 mg 09/07/25 09:00 09/08/25 10:34 Donepezil Hcl 10 Mg Tablet PO 10 mg DAILY SUZAN Administration Doxycycline Hyclate 100 mg 09/07/25 21:00 09/08/25 10:34 Doxycycline Hyclate 100 Mg Tablet PO 09/10/25 21:01 100 mg Q12HR SUZAN Administration Enoxaparin Sodium 60 mg 09/06/25 21:00 09/07/25 20:43 Enoxaparin 60 Mg/0.6 Ml Syringe SUB-Q 60 mg HS SUZAN Administration Escitalopram Oxalate 20 mg 09/06/25 21:00 09/07/25 20:43 Escitalopram Oxalate 10 Mg Tablet PO 20 mg HS SUZAN Administration Ferrous Sulfate 325 mg 09/07/25 08:00 09/08/25 10:34 Ferrous Sulfate 325 Mg Tablet BY MOUTH 325 mg DAILY@0800 SUZAN Administration Ceftriaxone Sodium 1 gm/ 50 mls @ 100 mls/hr 09/06/25 21:00 09/07/25 20:43 Sodium Chloride IVPB 100 mls/hr Q24H SUZAN Administration Lactobacillus Acidophilus 1 tablet 09/07/25 09:00 09/08/25 10:34 Acidophilus/Bulgaricus Chewable Tablet BY MOUTH 1 tablet DAILY SUZAN Administration Levetiracetam 750 mg 09/07/25 21:00 09/08/25 10:34 Levetiracetam 250 Mg Tablet PO 750 mg Q12HR SUZAN Administration Memantine 10 mg 09/06/25 17:00 09/08/25 10:35 Memantine 10 Mg Tablet PO 10 mg BID SUZAN Administration Metoprolol Tartrate 25 mg 09/07/25 12:00 09/08/25 05:19 Metoprolol Tartrate 25 Mg Tablet PO 25 mg Q6HR SUZAN Administration Perflutren Lipid Microsphere 0 ml 09/06/25 08:42 Perflutren Lipid Microspheres 1.5 Ml Vial Diluted To 10 Ml Total Volume IV PUSH 09/09/25 08:42 ONCE PRN adequate visualization Protocol Radiology Results: ITS Impressions Chest/Abdomen/Pelvis CTA 09/06/25 06:36 IMPRESSION: 1. Combination of pneumonia and rounded atelectasis in the lower lobes. 2. No pulmonary embolus. 3. Chronic dilatation of ileum with chronic mild wall thickening of the terminal ileum, consistent with Crohn disease and adynamic ileus. Chest X-Ray 09/06/25 06:56 IMPRESSION: 1. Bibasilar atelectasis and/or airspace disease. Head CT 09/06/25 06:58 IMPRESSION: 1. No acute intracranial findings. Labs Labs: Laboratory Results - last 24 hr 09/08/25 04:18 WBC 12.5 H RBC 3.40 L Hgb 11.2 L Hct 34.2 L MCV 100.6 H MCH 32.9 MCHC 32.7 RDW 13.5 Plt Count 157 MPV 9.3 Immature Gran % (Auto) 0.8 H Neut % (Auto) 84.3 H Lymph % (Auto) 5.2 L [place] % (Auto) 7.9 Eos % (Auto) 1.4 Baso % (Auto) 0.4 Lymph # (Auto) 0.65 L [place] # (Auto) 1.0 H Eos # (Auto) 0.2 Baso # (Auto) 0.1 Abs Immat Gran (auto) 0.10 H Absolute Neuts (auto) 10.5 H Absolute Nucleated RBC 0.000 Nucleated RBC % 0.0 Sodium 134 L Potassium 3.8 Chloride 107 Carbon Dioxide 21 L Anion Gap 6 BUN 22 H Creatinine 2.23 H Estim Creat Clear Calc 22 Estimated GFR 29 L Glucose 101 Calcium 8.6 Phosphorus 2.9 Magnesium 1.9 Albumin 3.2 L TSH (Reflex) 1.860
[2025-09-08] MEDS: METOPROLOL TARTRATE 50 MG TAB PO ×2 (12:46→20:02)
--- NOTE | 2025-09-08 14:12 | PCSTNOTE ---
Please refer to the Modified Barium Swallow Evaluation in the EMR. The patient is a 80 year old male admitted with bilateral pneumonia and AMS. Orders received to complete an MBS and r/o aspiration risk. The patient was positioned in a lateral view and presented the following consistencies: 5cc/tsp thin liquid barium, thin liquid barium via cup , pudding mixed with barium paste, and cracker coated with barium paste. Oral Stage: Oral preparation and transit was viewed to be timely for all consistencies. Pharyngeal Stage: When presented all the above consistencies the patient was viewed to have trace residual within the vallecula following each swallow. Residual was cleared when preforming a repeat swallow as cued by the OFFICE SERVICES CLERK. Swallow initiation itself was completed in a timely manner without viewed aspiration or penetration. Recommend: 1. Regular Diet / Level 7 2. Thin Liquid / Level 0 3. Upright with meals 4. Frequent Observation. Thank you for the consult.
--- NOTE | 2025-09-08 17:09 | P.PNIM_ITS ---
Assessment and Plan Assessment and Plan (1) Altered mental status: Qualifiers: Altered mental status type: unspecified Qualified Code(s): R41.82 - Altered mental status, unspecified Code(s): R41.82 - Altered mental status, unspecified Status: Acute Assessment and Plan: Patient brought to ED for AMS. CT brain showing no acute findings. Acute encephalopathy felt to be multifactorial PREMA on pre-existing CKD, Underlying infection, AFib/RVR Mental status improved and stable Monitor closely (2) Atrial fibrillation with rapid ventricular response: Code(s): I48.91 - Unspecified atrial fibrillation Status: Acute Assessment and Plan: Patient found to have AFib with RVR Diltiazem IV once then drip started. Cardiology consulted. TSH normal. [id number] score 5. Therapeutic Lovenox started. Rate better controlled. Metoprolol started and able to wean down on diltiazem drip. BP stable. Per family, patient was evaluated in the past for LAAC and deemed not to be a candidate Consider changing to Eliquis or Xarelto (but elevated HAS-BLED score 4). Metoprolol advanced and Dilt drip stopped. Monitor on telemetry. Appreciate Cardiology input. (3) Community acquired bilateral lower lobe pneumonia: Code(s): J18.9 - Pneumonia, unspecified organism Status: Acute Assessment and Plan: Patient with sepsis (fever, tachycardiac, leukocytosis) related to bilateral lower lobe pneumonia CTA chest showing centrilobular nodules and tree-in-bud opacities in the lower lobes, consistent with pneumonia. There is material in the bronchi in the lower lobes. He passed a bedside swallow but given the CT findings, a MBS was ordered. MBS showed patient could swallow safely. O2 support as needed Fever resolved. WBC continues to trend down Urine strep, Legionella antigen pending BCx no growth today UCx with growth observed Continue with doxycycline, ceftriaxone. (4) Sepsis: Qualifiers: Sepsis type: sepsis due to unspecified organism Code(s): A41.9 - Sepsis, unspecified organism Status: Acute Assessment and Plan: Related to PNA. As above. (5) Chronic kidney disease, stage 3: Qualifiers: Chronic kidney disease stage 3 subtype: stage 3b (GFR 30-44) Qualified Code(s): N18.32 - Chronic kidney disease, stage 3b Code(s): N18.30 - Chronic kidney disease, stage 3 unspecified Status: Chronic Assessment and Plan: Cr 1.97 on admission and within his baseline renal function. Creatinine higher today at 2.2. He is eating about half his meals. Could be related to AFib with RVR and/or sepsis and/or pneumonia Monitor kidney function, electrolytes, UOP Avoid nephrotoxins. (6) Crohn's disease: Qualifiers: Gastrointestinal tract location: unspecified location Digestive disease complication type: without complication Qualified Code(s): K50.90 - Crohn's disease, unspecified, without complications Code(s): K50.90 - Crohn's disease, unspecified, without complications Status: Chronic Assessment and Plan: Patient with known Crohns disease CT Abd showing chronic dilation of the ileum with chronic mild wall thickening of the terminal ileum. More likely related to his Crohns disease and less likely ileus. Patient having bowel movements. Follow. Monitor stool output. Hold Skyrizi given ongoing infection (7) Dementia of the Alzheimer's type: Code(s): G30.9 - Alzheimer's disease, unspecified; F02.80 - Dementia in other diseases classified elsewhere, unspecified severity, without behavioral disturbance, psychotic disturbance, mood disturbance, and anxiety Status: Acute Assessment and Plan: Chronic. Mental status better. Continue Aricept Follow. Continue PTOT (8) Seizure disorder: Code(s): G40.909 - Epilepsy, unspecified, not intractable, without status epilepticus Status: Acute Assessment and Plan: Patient continued on Keppra but changed to IV formulation. Patient improved so will change back to oral Follow. Plan Code status: Full DVT prophylaxis: On therapeutic Lovenox Subjective Date/time seen: 09/08/25 17:09 Interval history: 80yo male with dementia, CHF, Crohns disease and AFib here for altered mental status. Patient slept well. He is eating okay. He is alert but confused so hx unreliable. Review of Systems Review of Systems: ROS unobtainable: Yes unobtainable due to mental status Exam Narrative: AF 98.5 117/71 88 18 96% ra Gen - NARD Chest - bibasilar inspiratory crackles. CV - irregularly irregular. Tele showing AFib with controlled rate Abd - Soft, NT/ND, +BS Ext - No pedal edema Neuro - Alert but confused. Psych - pleasant and cooperative Skin - Warm and dry Objective Data Vital Signs Vital Signs: Vital Signs - 24 hr 09/07/25 18:00 09/07/25 18:00 09/07/25 18:53 Temperature Pulse Rate 85 87 82 Respiratory Rate Blood Pressure 111/55 L 111/55 L Pulse Oximetry Oxygen Delivery 09/07/25 20:00 09/07/25 20:00 09/07/25 20:00 Temperature 98.2 F Pulse Rate 90 97 Respiratory Rate 16 Blood Pressure 130/61 Pulse Oximetry 93 Oxygen Delivery Room Air 09/07/25 20:44 09/07/25 22:00 09/07/25 22:00 Temperature Pulse Rate 95 98 98 Respiratory Rate Blood Pressure 118/56 L Pulse Oximetry Oxygen Delivery 09/07/25 22:46 09/07/25 22:50 09/08/25 00:00 Temperature 98.3 F 98.3 F Pulse Rate 96 99 101 H Respiratory Rate 16 16 Blood Pressure 127/61 123/65 112/54 L Pulse Oximetry 95 94 Oxygen Delivery 09/08/25 00:00 09/08/25 00:00 09/08/25 00:49 Temperature Pulse Rate 99 98 Respiratory Rate Blood Pressure Pulse Oximetry Oxygen Delivery Room Air 09/08/25 02:00 09/08/25 02:00 09/08/25 02:00 Temperature Pulse Rate 93 93 93 Respiratory Rate 18 Blood Pressure 108/54 L 108/54 L Pulse Oximetry 90 Oxygen Delivery 09/08/25 04:00 09/08/25 04:00 09/08/25 04:00 Temperature 98.9 F Pulse Rate 92 96 96 Respiratory Rate 18 18 Blood Pressure 109/67 109/67 Pulse Oximetry 92 92 Oxygen Delivery Room Air 09/08/25 04:00 09/08/25 05:18 09/08/25 05:19 Temperature Pulse Rate 98 98 98 Respiratory Rate Blood Pressure 106/64 Pulse Oximetry Oxygen Delivery 09/08/25 06:00 09/08/25 06:00 09/08/25 06:00 Temperature 98.9 F Pulse Rate 92 92 92 Respiratory Rate 18 Blood Pressure 106/58 L 106/58 L Pulse Oximetry 93 Oxygen Delivery 09/08/25 08:00 09/08/25 08:00 09/08/25 08:00 Temperature 98 F Pulse Rate 98 85 Respiratory Rate 16 Blood Pressure 121/68 121/68 Pulse Oximetry 99 Oxygen Delivery Room Air 09/08/25 08:00 09/08/25 10:00 09/08/25 10:00 Temperature Pulse Rate 95 93 99 Respiratory Rate Blood Pressure 116/59 L Pulse Oximetry Oxygen Delivery 09/08/25 10:00 09/08/25 10:05 09/08/25 10:45 Temperature Pulse Rate 93 93 Respiratory Rate Blood Pressure 116/59 L 116/59 L Pulse Oximetry Oxygen Delivery Room Air 09/08/25 11:12 09/08/25 12:00 09/08/25 12:00 Temperature 99.7 F H Pulse Rate 105 H 99 Respiratory Rate 18 Blood Pressure 106/50 L Pulse Oximetry 94 Oxygen Delivery Room Air 09/08/25 12:46 09/08/25 14:00 09/08/25 14:00 Temperature Pulse Rate 93 81 86 Respiratory Rate Blood Pressure 113/68 Pulse Oximetry Oxygen Delivery 09/08/25 16:00 Temperature 98.5 F Pulse Rate 88 Respiratory Rate 18 Blood Pressure 117/71 Pulse Oximetry 96 Oxygen Delivery Intake/Output Intake/Output: Intake & Output 09/05/25 09/06/25 09/07/25 09/08/25 23:59 23:59 23:59 23:59 Intake Total 2031.0 1525.7 264.0 Output Total 500 2700 1200 351 Balance -500 -669.0 325.7 -87.0 Meds/Results Medications: Active Medications Generic Name Dose Route Start Last Admin Trade Name Freq PRN Reason Stop Dose Admin Acetaminophen 650 mg 09/06/25 15:56 09/06/25 16:23 Acetaminophen 650 Mg Suppository RECTAL 650 mg Q4H PRN Administration Fever > 100.4 Allopurinol 100 mg 09/06/25 21:00 09/07/25 20:43 Allopurinol 100 Mg Tablet PO 100 mg HS SUZAN Administration Aspirin 81 mg 09/07/25 09:00 09/08/25 10:35 Aspirin 81 Mg Enteric Tablet PO 81 mg QAM SUZAN Administration Atorvastatin Calcium 10 mg 09/06/25 18:00 09/07/25 17:01 Atorvastatin 10 Mg Tablet PO 10 mg QPM SUZAN Administration Cilostazol 100 mg 09/06/25 21:00 09/07/25 20:43 Cilostazol 100 Mg Tablet PO 100 mg HS SUZAN Administration Cyanocobalamin 1,000 mcg 10/06/25 09:00 Cyanocobalamin Inj 1,000 Mcg/Ml Vial IM MONTHLY SUZAN Donepezil HCl 10 mg 09/07/25 09:00 09/08/25 10:34 Donepezil Hcl 10 Mg Tablet PO 10 mg DAILY SUZAN Administration Doxycycline Hyclate 100 mg 09/07/25 21:00 09/08/25 10:34 Doxycycline Hyclate 100 Mg Tablet PO 09/10/25 21:01 100 mg Q12HR SUZAN Administration Enoxaparin Sodium 60 mg 09/06/25 21:00 09/07/25 20:43 Enoxaparin 60 Mg/0.6 Ml Syringe SUB-Q 60 mg HS SUZAN Administration Escitalopram Oxalate 20 mg 09/06/25 21:00 09/07/25 20:43 Escitalopram Oxalate 10 Mg Tablet PO 20 mg HS SUZAN Administration Ferrous Sulfate 325 mg 09/07/25 08:00 09/08/25 10:34 Ferrous Sulfate 325 Mg Tablet BY MOUTH 325 mg DAILY@0800 SUZAN Administration Ceftriaxone Sodium 1 gm/ 50 mls @ 100 mls/hr 09/06/25 21:00 09/07/25 20:43 Sodium Chloride IVPB 100 mls/hr Q24H SUZAN Administration Lactobacillus Acidophilus 1 tablet 09/07/25 09:00 09/08/25 10:34 Acidophilus/Bulgaricus Chewable Tablet BY MOUTH 1 tablet DAILY SUZAN Administration Levetiracetam 750 mg 09/07/25 21:00 09/08/25 10:34 Levetiracetam 250 Mg Tablet PO 750 mg Q12HR SUZAN Administration Memantine 10 mg 09/06/25 17:00 09/08/25 10:35 Memantine 10 Mg Tablet PO 10 mg BID SUZAN Administration Metoprolol Tartrate 50 mg 09/08/25 12:00 09/08/25 12:46 Metoprolol Tartrate 50 Mg Tab PO 50 mg Q6HR SUZAN Administration Perflutren Lipid Microsphere 0 ml 09/06/25 08:42 Perflutren Lipid Microspheres 1.5 Ml Vial Diluted To 10 Ml Total Volume IV PUSH 09/09/25 08:42 ONCE PRN adequate visualization Protocol Radiology Results: ITS Impressions Chest/Abdomen/Pelvis CTA 09/06/25 06:36 IMPRESSION: 1. Combination of pneumonia and rounded atelectasis in the lower lobes. 2. No pulmonary embolus. 3. Chronic dilatation of ileum with chronic mild wall thickening of the terminal ileum, consistent with Crohn disease and adynamic ileus. Chest X-Ray 09/06/25 06:56 IMPRESSION: 1. Bibasilar atelectasis and/or airspace disease. Head CT 09/06/25 06:58 IMPRESSION: 1. No acute intracranial findings. Modified Barium Swallow 09/08/25 13:30 IMPRESSION: No aspiration observed. See speech therapist's note for complete evaluation. Labs Labs: Laboratory Results - last 24 hr 09/08/25 04:18 WBC 12.5 H RBC 3.40 L Hgb 11.2 L Hct 34.2 L MCV 100.6 H MCH 32.9 MCHC 32.7 RDW 13.5 Plt Count 157 MPV 9.3 Immature Gran % (Auto) 0.8 H Neut % (Auto) 84.3 H Lymph % (Auto) 5.2 L [place] % (Auto) 7.9 Eos % (Auto) 1.4 Baso % (Auto) 0.4 Lymph # (Auto) 0.65 L [place] # (Auto) 1.0 H Eos # (Auto) 0.2 Baso # (Auto) 0.1 Abs Immat Gran (auto) 0.10 H Absolute Neuts (auto) 10.5 H Absolute Nucleated RBC 0.000 Nucleated RBC % 0.0 Sodium 134 L Potassium 3.8 Chloride 107 Carbon Dioxide 21 L Anion Gap 6 BUN 22 H Creatinine 2.23 H Estim Creat Clear Calc 22 Estimated GFR 29 L Glucose 101 Calcium 8.6 Phosphorus 2.9 Magnesium 1.9 Albumin 3.2 L TSH (Reflex) 1.860
[2025-09-08] MEDS: ESCITALOPRAM OXALATE 10 MG TABLET 20 MG PO (20:02)
[2025-09-08] MEDS: cefTRIAXone 1 GM in SODIUM CHLORIDE 0.9% IV 50 ML 100 ML IVPB (20:03)
[2025-09-08] MEDS: ENOXAPARIN 60 MG/0.6 ML SYRINGE SUB-Q (20:03)
[2025-09-08] MEDS: ATORVASTATIN 10 MG TABLET PO (20:03)
[2025-09-08] MEDS: LOPERAMIDE HCL 2 MG CAPSULE PO (21:34)
[2025-09-09] VITALS (13 sets, daily range): BP systolic 124–140; BP diastolic 66–86; PULSE 94–107; RESP 16–22; TEMP 36.4–37.3; O2SAT 94–96
[2025-09-09] MEDS: METOPROLOL TARTRATE 50 MG TAB PO ×2 (00:49→06:16)
[2025-09-09 04:53] LABS: Hematocrit 34.9 % (42.0-52.0); Hemoglobin 11.2 g/dL (14.0-18.0); Immature Granulocyte Percent A 0.5 % (0-0.5); Lymphocytes Absolute Auto 0.67 K/mm3 (0.9-3.2); Mean Corpuscular HGB Conc 32.1 g/dl (32-36); Mean Corpuscular Hemoglobin 32.4 pg (26-34); Mean Corpuscular Volume 100.9 fl (80-100); Nucleated Red Blood Cells Absolute Auto 0.000 K/mm3 (0.0-0.012); Nucleated Red Blood Cells Perc 0.0 % (0.0-0.2); Platelet Count Result 186 k/mm3 (150-375); Red Blood Count 3.46 M/mm3 (4.6-6.20); White Blood Count 9.3 K/mm3 (4.5-10.0)
[2025-09-09 05:13] LABS: Albumin Level 3.3 g/dL (3.5-5.1); Anion Gap 6 mmol/L (4-12); Blood Urea Nitrogen 22 mg/dL (9-20); Calcium 8.4 mg/dL (8.4-10.2); Carbon Dioxide 21 mmol/L (22-30); Chloride 108 mmol/L (98-107); Estimated CRCL calculation 23 ml/min; Estimated Glomerular Filt Rate 30; Glucose 93 mg/dL (65-110); Magnesium 2.0 mg/dL (1.6-2.3); Potassium 3.7 mmol/L (3.4-5.0); Sodium 135 mmol/L (137-145)
[2025-09-09] MEDS: DONEPEZIL HCL 10 MG TABLET PO (09:10)
[2025-09-09] MEDS: FERROUS SULFATE 325 MG TABLET BY MOUTH (09:10)
[2025-09-09] MEDS: ASPIRIN 81 MG ENTERIC TABLET PO (09:10)
[2025-09-09] MEDS: DOXYCYCLINE HYCLATE 100 MG TABLET PO (09:11)
[2025-09-09] MEDS: MEMANTINE 10 MG TABLET PO (09:11)
[2025-09-09] MEDS: ACIDOPHILUS/BULGARICUS CHEWABLE TABLET 1 TABLET BY MOUTH (09:11)
--- NOTE | 2025-09-09 09:30 | PM.PNCARD ---
Progress Note: A&P Assessment and Plan (1) Atrial fibrillation with rapid ventricular response: Code(s): I48.91 - Unspecified atrial fibrillation Status: Acute (2) Cardiomyopathy: Code(s): I42.9 - Cardiomyopathy, unspecified Status: Chronic (3) Hypertension: Qualifiers: Hypertension type: primary hypertension Qualified Code(s): I10 - Essential (primary) hypertension Code(s): I10 - Essential (primary) hypertension Status: Chronic (4) Hyperlipidemia: Qualifiers: Hyperlipidemia type: mixed hyperlipidemia Qualified Code(s): E78.2 - Mixed hyperlipidemia Code(s): E78.5 - Hyperlipidemia, unspecified Status: Chronic Plan Assessment: Chronic AFib with RVR- rates better controlled Hypertension Hyperlipidemia Peripheral arterial disease Coronary artery disease Plan: Continue metoprolol - can switch to 100mg po BID at discharge. Hold for SBP<110mm Hg and/or HR<60 bpm- I discussed this with patient's who is the primary caregiver Anticoagulation with Lovenox. Switch to DOAC- Xarelto for ease of once daily dosing. 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 Cardiology will sign off. Please call us with any questions. Subjective Date/time seen: 09/09/25 09:30 Interval history: Reason for the encounter: A fib with RVR Relevant history: 80-year-old male with history of Alzheimer's dementia, hypertension, hyperlipidemia, peripheral vascular disease, CAD, cardiomyopathy, chronic AFib, depression, seizures, chronic anemia, gout, osteoarthritis, renal stones, CKD stage 3, Crohn's disease presented to the ER with chief complaints of altered mental status. He was diagnosed with pneumonia and started on IV antibiotics. He was found to be in AFib with RVR. He was started on cardizem drip and cardiology was consulted for further recommendations. He is chronically in A fib and previously deemed not to be a candidate for LAAC per . Interval history: No chest pain or shortness of breath. Telemetry shows A fib with rates in the 90s. Review of Systems Cardiovascular: Comments: As per HPI. Respiratory: Comments: As per HPI. Exam Narrative: General: Alert oriented x3, no acute distress Neck: Supple, no JVD Chest: Bilaterally clear to auscultation, no rales or rhonchi Cardiac: S1, S2 +, irregularly irregular rhythm, no murmurs or rubs Extremities: No pedal edema, no skin rash Neurologic: Alert and oriented x3, no focal neurological deficits Objective Data Vital Signs Vital Signs: Vital Signs - 24 hr 09/08/25 10:00 09/08/25 10:00 09/08/25 10:00 Temperature Pulse Rate 93 99 93 Respiratory Rate Blood Pressure 116/59 L 116/59 L Pulse Oximetry Oxygen Delivery 09/08/25 10:05 09/08/25 10:45 09/08/25 11:12 Temperature 37.6 C H Pulse Rate 93 105 H Respiratory Rate 18 Blood Pressure 116/59 L 106/50 L Pulse Oximetry 94 Oxygen Delivery Room Air 09/08/25 12:00 09/08/25 12:00 09/08/25 12:46 Temperature Pulse Rate 99 93 Respiratory Rate Blood Pressure Pulse Oximetry Oxygen Delivery Room Air 09/08/25 14:00 09/08/25 14:00 09/08/25 16:00 Temperature 36.9 C Pulse Rate 81 86 88 Respiratory Rate 18 Blood Pressure 113/68 117/71 Pulse Oximetry 96 Oxygen Delivery 09/08/25 16:00 09/08/25 16:00 09/08/25 18:00 Temperature Pulse Rate 89 97 Respiratory Rate Blood Pressure Pulse Oximetry Oxygen Delivery Room Air 09/08/25 20:00 09/08/25 20:00 09/08/25 20:00 Temperature 37.4 C Pulse Rate 105 H 96 Respiratory Rate 20 Blood Pressure 131/77 Pulse Oximetry 95 Oxygen Delivery Room Air 09/08/25 20:02 09/08/25 22:00 09/09/25 00:00 Temperature 37.3 C Pulse Rate 104 H 94 99 Respiratory Rate 16 Blood Pressure 124/69 Pulse Oximetry 94 Oxygen Delivery 09/09/25 00:00 09/09/25 00:00 09/09/25 00:49 Temperature Pulse Rate 97 107 H Respiratory Rate Blood Pressure Pulse Oximetry Oxygen Delivery Room Air 09/09/25 02:00 09/09/25 04:00 09/09/25 04:00 Temperature Pulse Rate 100 103 H Respiratory Rate Blood Pressure Pulse Oximetry Oxygen Delivery Room Air 09/09/25 05:10 09/09/25 06:00 09/09/25 06:16 Temperature 36.6 C Pulse Rate 104 H 103 H 106 H Respiratory Rate 18 Blood Pressure 135/66 Pulse Oximetry 94 Oxygen Delivery 09/09/25 08:22 Temperature 36.4 C Pulse Rate 100 Respiratory Rate 16 Blood Pressure 140/86 Pulse Oximetry 96 Oxygen Delivery Intake/Output Intake/Output: Intake & Output 09/06/25 09/07/25 09/08/25 09/09/25 23:59 23:59 23:59 23:59 Intake Total 2031.0 1575.7 504.0 590 Output Total 2700 1200 926 550 Balance -669.0 375.7 -422.0 40 Meds/Results Medications: Active Medications Generic Name Dose Route Start Last Admin Trade Name Freq PRN Reason Stop Dose Admin Acetaminophen 650 mg 09/06/25 15:56 09/06/25 16:23 Acetaminophen 650 Mg Suppository RECTAL 650 mg Q4H PRN Administration Fever > 100.4 Allopurinol 100 mg 09/06/25 21:00 09/08/25 20:02 Allopurinol 100 Mg Tablet PO 100 mg HS SUZNA Administration Aspirin 81 mg 09/07/25 09:00 09/09/25 09:10 Aspirin 81 Mg Enteric Tablet PO 81 mg QAM SUZAN Administration Atorvastatin Calcium 10 mg 09/06/25 18:00 09/08/25 20:03 Atorvastatin 10 Mg Tablet PO 10 mg QPM SUZAN Administration Cilostazol 100 mg 09/06/25 21:00 09/08/25 20:02 Cilostazol 100 Mg Tablet PO 100 mg HS SUZAN Administration Cyanocobalamin 1,000 mcg 10/06/25 09:00 Cyanocobalamin Inj 1,000 Mcg/Ml Vial IM MONTHLY SUZAN Donepezil HCl 10 mg 09/07/25 09:00 09/09/25 09:10 Donepezil Hcl 10 Mg Tablet PO 10 mg DAILY SUZAN Administration Doxycycline Hyclate 100 mg 09/07/25 21:00 09/09/25 09:11 Doxycycline Hyclate 100 Mg Tablet PO 09/10/25 21:01 100 mg Q12HR SUZAN Administration Enoxaparin Sodium 60 mg 09/06/25 21:00 09/08/25 20:03 Enoxaparin 60 Mg/0.6 Ml Syringe SUB-Q 60 mg HS SUZAN Administration Escitalopram Oxalate 20 mg 09/06/25 21:00 09/08/25 20:02 Escitalopram Oxalate 10 Mg Tablet PO 20 mg HS SUZAN Administration Ferrous Sulfate 325 mg 09/07/25 08:00 09/09/25 09:10 Ferrous Sulfate 325 Mg Tablet BY MOUTH 325 mg DAILY@0800 SUZAN Administration Ceftriaxone Sodium 1 gm/ 50 mls @ 100 mls/hr 09/06/25 21:00 09/08/25 20:03 Sodium Chloride IVPB 100 mls/hr Q24H SUZAN Administration Lactobacillus Acidophilus 1 tablet 09/07/25 09:00 09/09/25 09:11 Acidophilus/Bulgaricus Chewable Tablet BY MOUTH 1 tablet DAILY SUZAN Administration Levetiracetam 750 mg 09/07/25 21:00 09/09/25 09:11 Levetiracetam 250 Mg Tablet PO 750 mg Q12HR SUZAN Administration Loperamide HCl 2 mg 09/08/25 21:09 09/08/25 21:34 Loperamide Hcl 2 Mg Capsule PO 2 mg PRN PRN Administration Diarrhea Memantine 10 mg 09/06/25 17:00 09/09/25 09:11 Memantine 10 Mg Tablet PO 10 mg BID SUZAN Administration Metoprolol Tartrate 50 mg 09/08/25 12:00 09/09/25 06:16 Metoprolol Tartrate 50 Mg Tab PO 50 mg Q6HR SUZAN Administration Radiology Results: ITS Impressions Chest/Abdomen/Pelvis CTA 09/06/25 06:36 IMPRESSION: 1. Combination of pneumonia and rounded atelectasis in the lower lobes. 2. No pulmonary embolus. 3. Chronic dilatation of ileum with chronic mild wall thickening of the terminal ileum, consistent with Crohn disease and adynamic ileus. Chest X-Ray 09/06/25 06:56 IMPRESSION: 1. Bibasilar atelectasis and/or airspace disease. Head CT 09/06/25 06:58 IMPRESSION: 1. No acute intracranial findings. Modified Barium Swallow 09/08/25 13:30 IMPRESSION: No aspiration observed. See speech therapist's note for complete evaluation. Labs Labs: Laboratory Results - last 24 hr 09/09/25 04:37 WBC 9.3 RBC 3.46 L Hgb 11.2 L Hct 34.9 L MCV 100.9 H MCH 32.4 MCHC 32.1 RDW 13.3 Plt Count 186 MPV 9.5 Immature Gran % (Auto) 0.5 Neut % (Auto) 79.8 H Lymph % (Auto) 7.2 L [place] % (Auto) 9.9 H Eos % (Auto) 2.1 Baso % (Auto) 0.5 Lymph # (Auto) 0.67 L [place] # (Auto) 0.9 H Eos # (Auto) 0.2 Baso # (Auto) 0.1 Abs Immat Gran (auto) 0.05 H Absolute Neuts (auto) 7.4 H Absolute Nucleated RBC 0.000 Nucleated RBC % 0.0 Sodium 135 L Potassium 3.7 Chloride 108 H Carbon Dioxide 21 L Anion Gap 6 BUN 22 H Creatinine 2.12 H Estim Creat Clear Calc 23 Estimated GFR 30 L Glucose 93 Calcium 8.4 Phosphorus 2.8 Magnesium 2.0 Albumin 3.3 L
--- NOTE | 2025-09-09 12:08 | P.DS_ITS ---
DS: Admitting Diagnosis Discharge Date 09/09/25 Admitting Diagnosis Altered mental status DS: Discharge Diagnosis Discharge Diagnosis (1) Altered mental status: Qualifiers: Altered mental status type: unspecified Qualified Code(s): R41.82 - Altered mental status, unspecified Code(s): R41.82 - Altered mental status, unspecified Status: Acute (2) Atrial fibrillation with rapid ventricular response: Code(s): I48.91 - Unspecified atrial fibrillation Status: Acute (3) Community acquired bilateral lower lobe pneumonia: Code(s): J18.9 - Pneumonia, unspecified organism Status: Acute (4) Sepsis: Qualifiers: Sepsis type: sepsis due to unspecified organism Code(s): A41.9 - Sepsis, unspecified organism Status: Acute (5) Chronic kidney disease, stage 3: Qualifiers: Chronic kidney disease stage 3 subtype: stage 3b (GFR 30-44) Qualified Code(s): N18.32 - Chronic kidney disease, stage 3b Code(s): N18.30 - Chronic kidney disease, stage 3 unspecified Status: Chronic (6) Crohn's disease: Qualifiers: Gastrointestinal tract location: unspecified location Digestive disease complication type: without complication Qualified Code(s): K50.90 - Crohn's disease, unspecified, without complications Code(s): K50.90 - Crohn's disease, unspecified, without complications Status: Chronic (7) Dementia of the Alzheimer's type: Code(s): G30.9 - Alzheimer's disease, unspecified; F02.80 - Dementia in other diseases classified elsewhere, unspecified severity, without behavioral disturbance, psychotic disturbance, mood disturbance, and anxiety Status: Acute (8) Seizure disorder: Code(s): G40.909 - Epilepsy, unspecified, not intractable, without status epilepticus Status: Acute DS: Summary Hospital Course Reason for hospitalization: 80yo male with dementia, CHF, Crohns disease and AFib here for altered mental status. Please see H&P for details. Hospital Course: The following issues were addressed during his hospital stay: (1) Altered mental status: Patient brought to ED for AMS. CT brain showing no acute findings. Acute encephalopathy felt to be multifactorial with dementia, AFib/RVR, pneumonia, sepsis, PREMA on pre-existing CKD. Mental status improved as his other medical problems were addressed. His mental status returned to baseline and remained stable (2) Atrial fibrillation with rapid ventricular response: Patient found to have AFib with RVR on admission. He has long standing AFib and was not on rate lowering agents or anticoagulation. He had been on metoprolol in the past. feels no anticoagulation due to rectal bleeding from Crohn's but Crohn's no well controlled due to Skyriki. Diltiazem IV once then drip started. Cardiology consulted. TSH normal. [id number] score 5. Therapeutic Lovenox started. Rate became better controlled. Metoprolol started and able to wean off diltiazem drip. BP remained stable. Per family, patient was evaluated in the past for LAAC and deemed not to be a candidate. HAS-BLED score 4 and risks/benefits discussed with patient and and they are wanting to start anticoagulation. Eliquis 2.5mg Q12H started (Despite recommended dose of 5mg Q12h, patient has high HAS-BLED score, he is close to 81yo and close to 60kg with CKD with Cr 2.1 so lower dose ordered). Metoprolol advanced to 100mg Q12h with good rate control. (3) Community acquired bilateral lower lobe pneumonia: Patient with sepsis (fever, tachycardiac, leukocytosis) related to bilateral lower lobe pneumonia. CTA chest showing centrilobular nodules and tree-in-bud opacities in the lower lobes, consistent with pneumonia. There is material in the bronchi in the lower lobes. He passed a bedside swallow but given the CT findings, a MBS was ordered. MBS showed patient could swallow safely. O2 support as needed and able to be weaned off O2. Fever resolved. WBC normalized. Urine strep, Legionella antigen negative. BCx no growth to date. UCx with 'growth observed'. He was treated with doxycycline, ceftriaxone. Home with oral antibiotics. (4) Sepsis: Related to PNA. As above. (5) Chronic kidney disease, stage 3: Cr 1.97 on admission and within his baseline renal function. Creatinine climbed to 2.2 felt related to AFib with RVR and/or sepsis and/or pneumonia. He is eating better and Cr improved. Lasix remained on hold here but resumed at discharge. (6) Crohn's disease: Patient with known Crohn's disease. CT Abd showing chronic dilation of the ileum with chronic mild wall thickening of the terminal ileum. More likely related to his Crohn's disease and less likely ileus. Patient having bowel movements. Holding Skyrizi given ongoing infection (7) Dementia of the Alzheimer's type: Chronic. Mental status better. We continued Aricept. He worked with PT/OT. Home with home health (8) Seizure disorder: Patient continued on Keppra but changed to IV formulation when he had AMS. Patient improved so he was changed back to oral. No evidence of breakthrough seizure noted clinically. (9) Chronic urine retention: Babin in place here. Will remove and patient can resume doing in/out urine catheterization at home Patient overall did well and was able to be discharged home with on 09/09/25. Discharge instructions including side effects of medications were discussed with patient and at bedside. All questions are answered. Status at Discharge Cognitive/behavioral status at discharge: stable Time Spent with Patient Time attestation: Total time spent providing and/or coordinating discharge services: 35 minutes Time spent: Greater than 30 minutes Exam Narrative: AF 97.7 132/70 100 22 96% ra Gen - NARD Chest - bibasilar inspiratory crackles. CV - irregularly irregular. Tele showing AFib with controlled rate Abd - Soft, NT/ND, +BS - Babin secured draining clear yellow urine Ext - No pedal edema Neuro - Alert but confused. Psych - pleasant and cooperative Skin - Warm and dry. Dry scaly skin UE/LE DS: Data Data Completed and Pending Labs on day of discharge: Labs from last 24 hours 09/09/25 04:37 WBC 9.3 RBC 3.46 L Hgb 11.2 L Hct 34.9 L MCV 100.9 H MCH 32.4 MCHC 32.1 RDW 13.3 Plt Count 186 MPV 9.5 Immature Gran % (Auto) 0.5 Neut % (Auto) 79.8 H Lymph % (Auto) 7.2 L Nolan % (Auto) 9.9 H Eos % (Auto) 2.1 Baso % (Auto) 0.5 Lymph # (Auto) 0.67 L Nolan # (Auto) 0.9 H Eos # (Auto) 0.2 Baso # (Auto) 0.1 Abs Immat Gran (auto) 0.05 H Absolute Neuts (auto) 7.4 H Absolute Nucleated RBC 0.000 Nucleated RBC % 0.0 Sodium 135 L Potassium 3.7 Chloride 108 H Carbon Dioxide 21 L Anion Gap 6 BUN 22 H Creatinine 2.12 H Estim Creat Clear Calc 23 Estimated GFR 30 L Glucose 93 Calcium 8.4 Phosphorus 2.8 Magnesium 2.0 Albumin 3.3 L Preliminary micro results at discharge 09/05/25 23:50 - Preliminary Urine Clean Catch 09/05/25 23:57 Blood Culture - Preliminary Blood 09/05/25 23:50 Blood Culture - Preliminary Blood Discharge Plan Discharge Attending physician on discharge: Eleuterio Hinojosa Consulting providers: Diamond Zuniga Discharging Clinician: Eleuterio Hinojosa Anticipated Discharge Date/Time: 09/09/25 12:27 Patient Disposition: Home with Home Health Service Activity: as tolerated Diet: heart healthy Discharge Instructions: Care Coordination: [facility] to follow patient for PT/OT/RN. They will call patients to set up admission appointment. [facility] [phone] Check blood pressure 1 to 2 times a day. Record and bring into your doctor for review. Call your doctor if your blood pressure is greater than 180/110 or less than 90/45. Please complete your antibiotic course even if you are starting to feel well. Take precautions to avoid falls. Rise slowly from a lying or sitting position. Pause before standing or walking. Walk with walker. Continue urinary self-catheterization 3-4x/day. Check daily morning weights after voiding. Call your doctor if you gain more than 3 lb in 2 days or 5 lb in 1 week. Contact your doctor or call 911 and come to the Emergency Room if you have any type of trauma, lightheadedness with standing or other worrisome symptoms. Avoid NSAIDs (ibuprofen, naproxen, Aleve). Tylenol is safe to take. Follow-up with your primary care provider in 1-2 weeks. Please call for appointment. Follow-up with your Environmental Engineering Professor in 2-4 weeks. Please call for an appointment. Thank you for using [facility] for your health care needs. Patient Instructions: Antibiotic Form Patient Language: Yoruba Stand Alone Forms: General Discharge Information Follow-up/Referrals: Jayne,Preethi Enciso APRN [Primary Care Provider, Unknown] - Call for Appointment Discharge Medications: New amoxicillin-pot clavulanate [Augmentin] 500-125 mg tablet 1 tablet PO Q12H Qty: 8 0RF doxycycline hyclate 100 mg Tablet 100 mg PO Q12HR Qty: 3 0RF metoprolol tartrate 100 mg tablet 100 mg PO Q12H Qty: 60 1RF Eliquis 2.5 mg Tablet 2.5 mg PO Q12HR Qty: 60 1RF Continued Co [id number] E-Fish Oil 25-150-200 mg-mg-unit capsule 1 cap PO DAILY Adult 50 Plus Probiotic 4 billion cell capsule 4,000 mmu cells PO DAILY Rx Instructions: administer with a meal memantine 10 mg tablet 10 mg PO BID Qty: 180 3RF levetiracetam 750 mg tablet 750 mg PO Q12HR 30 Days Qty: 180 3RF donepezil 10 mg tablet 10 mg PO DAILY Rx Instructions: in the morning furosemide 40 mg tablet 20 mg PO DAILY cilostazol 100 mg tablet 100 mg PO HS atorvastatin 10 mg tablet 10 mg PO QPM allopurinol 100 mg tablet 100 mg PO HS aspirin 81 mg Tablet 81 mg PO DAILY ferrous sulfate [FeroSul] 325 mg (65 mg iron) tablet 325 mg PO DAILY@0800 escitalopram oxalate 20 mg tablet 20 mg PO HS loperamide [Anti-Diarrheal (loperamide)] 2 mg capsule 2 mg PO Q1-3H PRN (Reason: loose stool) Rx Instructions: administer after each loose stool until symptoms controlled; do not exceed 8 mg per 24 hrs cyanocobalamin (vitamin B-12) 1,000 mcg/mL solution 1,000 mcg IM MONTHLY Patient Comments: patient takes on of the Held Skyrizi 150 mg/mL pen injector 150 mg subcut ONCE Hold Instructions: HOLD - resume when okay with your doctor Date of admission: 09/06/25 03:27 Primary Care Provider: Maykel*Preethi Admitting Provider: Umm Lovett Attending physician on admission: Umm Lovett Condition: Stable Hospitalist MIPS Heart Failure (Exclusion) Patient has history of Heart Transplant or Left Ventricular Assistive Device?: No IF YES, STOP HERE Heart Failure (Qualifier) Patient has current or prior documentation of LVEF less than or equal to 40%, or mod/servere depressed LVSF?: No IF NO, STOP HERE
--- NOTE | 2025-09-13 13:35 | PC.NURSE ---
Urine and blood cx are both negative. Dr. Ashish greenfield.
== END 2025-09-09 14:33 | disposition home health service (06) | DRG 871 ==
LOC: ANHED 09-06 03:46 → ANHIMU 09-06 04:30
PROVIDERS: Internal Medicine; Admitting Provider Internal Medicine; Emergency Provider Registered Nurse; PCP Nurse Practitioner Family; Visit Provider Internal Medicine
DX: A41.9 Sepsis, unspecified organism (principal); J18.9 Pneumonia, unspecified organism; K50.90 Crohn's disease, unspecified, without complications; G93.40 Encephalopathy, unspecified; N17.9 Acute kidney failure, unspecified; I13.0 Hypertensive heart and chronic kidney disease with heart failure and stage 1 through stage 4 chronic kidney disease, or unspecified chronic kidney disease; I50.22 Chronic systolic (congestive) heart failure; I48.20 Chronic atrial fibrillation, unspecified; I43 Cardiomyopathy in diseases classified elsewhere; G30.9 Alzheimer's disease, unspecified; F02.80 Dementia in other diseases classified elsewhere, unspecified severity, without behavioral disturbance, psychotic disturbance, mood disturbance, and anxiety; D63.1 Anemia in chronic kidney disease; E78.5 Hyperlipidemia, unspecified; E78.2 Mixed hyperlipidemia; G40.909 Epilepsy, unspecified, not intractable, without status epilepticus; I25.10 Atherosclerotic heart disease of native coronary artery without angina pectoris; I73.9 Peripheral vascular disease, unspecified; M10.9 Gout, unspecified; N40.1 Benign prostatic hyperplasia with lower urinary tract symptoms; N18.32 Chronic kidney disease, stage 3b; R33.8 Other retention of urine; Z20.822 Contact with and (suspected) exposure to COVID-19; Z79.01 Long term (current) use of anticoagulants; Z79.82 Long term (current) use of aspirin; Z86.73 Personal history of transient ischemic attack (TIA), and cerebral infarction without residual deficits; Z95.1 Presence of aortocoronary bypass graft; Z98.41 Cataract extraction status, right eye; Z98.42 Cataract extraction status, left eye; Z90.49 Acquired absence of other specified parts of digestive tract; Z95.828 Presence of other vascular implants and grafts; Z66 Do not resuscitate; Z87.891 Personal history of nicotine dependence
CPT/HCPCS: 36415; 70450; 71046; 71275; 74177; 74230; 80053; 80069; 81001; 82077; 82550; 82948; 83605; 83735; 83880; 84443; 84484; 85025; 85610; 85730; 86140; 87040; 87086; 87186; 87449; 87637; 87899; 92610; 92611; 93005; 93306; 96361; 96365; 96366; 96367; 97161; 97166; 99285; A9270; J0456; J0696; J1163; J1650; J1953; J3475; J7030; J7050; Q9967